=== PATIENT | female | born 1980 | race Caucasian/White ===

== ENCOUNTER → 2018-07-06 13:56 | Outpatient (CLI) | payer OTHER, SELFPAY ==
[2018-07-10 11:59] LABS: HPV HC, High Risk Negative (Negative)
== END ==
PROVIDERS: Visit Provider Obstetrics & Gynecology
DX: Z12.4 Encounter for screening for malignant neoplasm of cervix (principal)
CPT/HCPCS: 87624; 88175; G0145

== ENCOUNTER 2019-11-25 18:50 | Emergency (ER) | payer OTHER, SELFPAY ==
[2019-11-25 18:51] VITALS: BP 150/87; PULSE 77; PULSE 81; RESP 17; RESP 18; TEMP 36.4; O2SAT 97; O2SAT 99; BMI 44.4
--- NOTE | 2019-11-25 19:45 | RAD_ITS ---
STUDY: X-RAY - LEFT HAND REASON FOR EXAM: Female, 39 years old. got 3rd digit caught in dog collar TECHNIQUE: 3 view(s) of the hand. COMPARISON: None. FINDINGS: Normal radiocarpal articulation. Normal distal radioulnar joint. Normal visualized carpal bones. Normal carpal articulations Normal carpometacarpal articulation of the thumb. Normal second through fifth carpometacarpal joints. Normal metacarpi. Normal metacarpophalangeal joint of the thumb. Normal interphalangeal joint of the thumb. Normal proximal and distal phalanges of the thumb. Normal metacarpophalangeal joints of the second through fifth fingers. Normal proximal and distal interphalangeal joints of the second through fifth fingers. There is a nondisplaced chip fracture of the dorsal aspect of the base of the third distal phalanx. RAD/Hand Min 3 Views IMPRESSION: Nondisplaced chip fracture of the dorsal aspect of the base of the third distal phalanx. Electronically Signed: Alex Centeno MD at 20:48 EDT , Service support ,
[2019-11-25] MEDS: Naproxen 500 MG Tablet PO (19:46)
--- NOTE | 2019-11-25 19:46 | ED.DCSUM_ITS ---
History of Present Illness Chief Complaint: Upper Extremity Injury Detail of Chief Complaint: Hand injury Informant: Patient Onset: Today Current Severity: Mild Maximum Severity: Moderate Narrative: Patient presents with injury to her left hand. She states that her dogs were roughhousing in the backyard. She had her left hand through the collar of 1 of the dogs. The dog turned suddenly and twisted her hand in the collar. She has pain throughout the third digit but also across the MCP joints of the third, fourth, and fifth fingers. She is right-hand dominant. She denies paresthesias. She did take Tylenol prior to arrival. Past Medical History - Allergies and Home Meds Allergies/Adverse Reactions: Allergies Penicillins [PCN] Allergy (Verified 11/25/19 18:51) Unknown Primary Care Physician: Hilton Doty DO [Primary Care Provider] - Prior records reviewed: Yes Smoking Status: Never smoker Review of Systems General: Denies: Chills, Fever Eyes: Denies: Visual changes - bilaterally ENT: Denies: Bilateral ear pain Cardiovascular: Denies: Chest pain Respiratory: Denies: Dyspnea, Cough Gastrointestinal: Denies: Abdominal pain, Nausea, Vomiting, Diarrhea Musculoskeletal: Reports: Arthralgias, Extremity Pain Skin: Denies: Rash Hematologic: Denies: Easy bruising, Easy bleeding Allergy: Denies: Uticaria Physical Exam Vital Signs/Narrative: Vital Signs Temp Pulse Resp BP Pulse Ox 11/25/19 18:51 97.5 F L 81 17 150/87 H 97 Inital Vital Signs reviewed: Yes General: Well nourished, Well developed Head: Normocephalic ENT: Moist mucous membranes Neck: Supple Cardiovascular: Regular rate, Regular rhythm Respiratory: No distress, CTA bilaterally Abdomen: Soft, Nontender Extremities: - - Patient has mild tenderness throughout the third digit of the left hand along with the third, fourth, and fifth MCP joints. Minimal edema noted. She has decreased flexion of the third finger secondary to edema. No obvious deformity noted. Good cap refill and sensation distally. No tenderness at the wrist, elbow, or shoulder. Skin: Normal color Neurological: Alert, Oriented x3 Psychological: Normal affect Diagnostic/Tx/Re-eval Impressions Hand X-Ray 11/25/19 19:45 IMPRESSION: Nondisplaced chip fracture of the dorsal aspect of the base of the third distal phalanx. Electronically Signed: Alex Centeno MD at 20:48 EDT , Service support , 11/25/19 19:45 Hand Min 3 Views [RAD] Stat - Medical Decision Making Patient was given naproxen here. Test results are discussed with her. Left third finger is placed in an AlumaFoam splint. She will follow-up with [facility] which she is known to. ED Disposition - Plan for ED Patient: Disposition: Home or Assisted Living Diagnosis: Fracture of distal phalanx of finger of left hand Instructions: ED FINGER FRACTURE Closed Prescriptions: Naproxen [Naprosyn] 500 mg PO BID PRN PRN #20 tab PRN Reason: Pain Score 4-10/10 Transmission Status: Pending to [facility]/pharmacy #[id number] Referrals: Hilton Doty DO [Primary Care Provider] - Lazaro David DO [STAFF PHYSICIAN] - 1 Week
[2019-11-25 21:10] VITALS: RESP 18
== END 2019-11-25 21:10 | disposition home or self-care (01) ==
PROVIDERS: Emergency Provider Emergency Medicine; PCP Student in an Organized Health Care Education/Training Program
DX: S62.633A Displaced fracture of distal phalanx of left middle finger, initial encounter for closed fracture (principal); X58.XXXA Exposure to other specified factors, initial encounter
CPT/HCPCS: 73130; 99283

== ENCOUNTER 2020-03-12 11:37 | Emergency (ER) | payer OTHER, SELFPAY ==
[2020-03-12 11:38] VITALS: BP 152/104; PULSE 65; RESP 20; TEMP 36.3; O2SAT 100; BMI 43.2
--- NOTE | 2020-03-12 12:21 | EKG12_ITS ---
Test Reason : BACK PAIN Blood Pressure : / mmHG Vent. Rate : 056 BPM Atrial Rate : 056 BPM P-R Int : 150 ms QRS Dur : 104 ms QT Int : 444 ms P-R-T Axes : 046 057 043 degrees QTc Int : 428 ms Sinus bradycardia Otherwise normal ECG No previous ECGs available Confirmed by ALVAREZ PETERS ([id number]), editorial project manager NELLIE MUNOZ ([id number]) on 03/26/2020 10:06:33 AM Referred By: ELSIE Confirmed By:ALVAREZ PETERS
--- NOTE | 2020-03-12 12:28 | NURSING ---
NO OLD EKGS
[2020-03-12 13:03] VITALS: BP 142/79; PULSE 57; RESP 10; O2SAT 100
[2020-03-12 13:06] LABS: Absolute Lymphocyte Count 1.55 X10^3/uL (0.83-4.51); Absolute Neutrophil Count 4.3 X10^3/uL (2.0-7.7); Basophil# 0.02 X10^3/uL; Basophil% 0.3 % (0-1); Eosinophils% 1.5 % (0-5); Hematocrit 42.7 % (37-47); Hemoglobin 13.9 g/dL (12.0-15.0); Lymphocyte # 1.55 X10^3/ul (4.0); Lymphocyte % 23.7 % (19-41); Mean Corp Hgb Conc 32.6 g/dL (32-36); Mean Corpuscular Hgb 29.3 pg (27.0-32.0); Mean Corpuscular Volume 89.9 fL (81-99); Mean Platelet Vol. 10.1 fl (6.2-12.0); Monocyte# 0.51 X10^3/uL; Monocyte% 7.8 % (0-10); NRBC Flagged by Analyzer 0 % (0-5); Neutrophil # 4.34 X10^3/uL (2.7-7.7); Neutrophil % 66.4 % (47-70); Platelet Count 294 K/mm3 (150-450); RBC Distribution Width CV 13.2 % (11.6-14.6); RBC Distribution Width SD 43.4 fl (35.1-43.9); Red Blood Count 4.75 M/mm3 (4.2-5.4); White Blood Count 6.5 K/mm3 (4.4-11.0)
--- NOTE | 2020-03-12 13:10 | RAD_ITS ---
STUDY: X-RAY CHEST REASON FOR EXAM: Female, 40 years old. Left sided pleuritic chest pain TECHNIQUE: PA and lateral views of the chest. COMPARISON: Comparison is made with prior study dated 09/13/2014. FINDINGS: EKG electrodes are seen. Scattered calcified granulomas. The lungs are clear. There is no demonstrated pleural abnormality. Normal size heart. Normal mediastinum and howard. Normal visualized pulmonary arteries. Normal visualized aortic arch and descending thoracic aorta. There is a levoscoliosis of the thoracic spine. Normal visualized ribs, clavicles, and shoulders. There is no demonstrated abnormality of the visualized soft tissue structures of the upper abdomen. RAD/Chest PA and Lateral IMPRESSION: No acute abnormality is seen. Electronically Signed: Jimmy Cam, at 13:26 EDT , Service support ,
[2020-03-12 13:18] LABS: D-Dimer Quantitative (DVT/PE) 0.34 FEU/ug/m (0.27-0.49)
[2020-03-12 13:20] LABS: Anion Gap 4 (5-15); BUN 8 mg/dL (7-18); Calcium,Total 9.6 mg/dL (8.5-10.1); Chloride 102 mmol/L (98-107); Creatinine, Serum 0.89 mg/dL (0.55-1.02); EST Glomerular Filtration Rate 75 mL/min (>60); Est Glom Filt Rate - Afr Amer 91 mL/min (>60); Estimated Creatinine Clearance 81.71 ml/min; Glucose 97 mg/dL (74-106); Potassium 3.3 mmol/L (3.5-5.1); Sodium Level 139 mmol/L (136-145)
[2020-03-12 13:40] LABS: Lactic Acid 0.8 mmol/L (0.4-1.9)
--- NOTE | 2020-03-12 13:55 | ED.DCSUM_ITS ---
History of Present Illness Chief Complaint: Back Informant: Patient Onset: Today Context: Sudden Onset Timing: Continuous Quality: Pleuritic left-sided pain Location: Left side posteriorly Current Severity: Mild Maximum Severity: Severe Worsened by: Deep breathing Relieved by: Nothing Associated Symptoms: Shortness of breath Narrative: Is a 40-year-old woman who presents with pleuritic chest pain at started this morning. She has no history of VTE. She denies leg pain, swelling discoloration. She denies fever, chills night sweats. She denies rhinorrhea, congestion postnasal drainage and sore throat. She denies cough. She denies myalgias or arthralgias. She does have history of ureteral stone. She states this is in a different location and is different. She denies dysuria, frequency, urgency or hematuria. She denies constipation or history of diverticulitis. There is no history of trauma other than lifting which would not explain the pleuritic pain. Prior similar symptoms: No Recent Illness/Hospitalization: No - Past Medical History (1) History of ureteral stone Status: Acute (2) History of depression Status: Acute (3) History of hypertension Status: Acute (4) History of rheumatoid arthritis Status: Acute Past Medical History - Allergies and Home Meds Allergies/Adverse Reactions: Allergies Penicillins [PCN] Allergy (Verified 03/12/20 11:40) Unknown Primary Care Physician: Hilton Doty DO [Primary Care Provider] - Prior records reviewed: Yes Surgical History: noncontributory Lives: Spouse/ Significant Other, With Family Smoking Status: Never smoker Alcohol: Rare Drugs: None Review of Systems General: Denies: Chills, Fever, Malaise, Subjective Eyes: Denies: Visual changes - bilaterally, Blurred Vision - bilaterally ENT: Denies: Rhinorrhea, Sore throat Cardiovascular: Denies: Chest pain, Palpitations Respiratory: Reports: Dyspnea, Dyspnea on exertion. Denies: Cough, Sputum, Orthopnea Gastrointestinal: Denies: Abdominal pain, Nausea, Vomiting, Diarrhea, Constipation, Melena, Hematochezia, -, - Genitourinary: Denies: Dysuria, Hematuria, Frequency Musculoskeletal: Denies: Myalgias, Arthralgias, Neck pain, Back pain, Swelling, Extremity Pain, -, - Skin: Denies: Rash, Wounds Neurological: Denies: Headache, Weakness, Parasthesia Endocrine: Denies: Polyuria, Polydipsia Hematologic: Denies: Easy bruising, Easy bleeding Physical Exam Vital Signs/Narrative: Vital Signs Temp Pulse Resp BP Pulse Ox 03/12/20 13:03 57 L 10 L 142/79 H 100 03/12/20 11:38 97.3 F L 65 20 H 152/104 H 100 Inital Vital Signs reviewed: Yes General: Well nourished, Well developed, Obese, No Acute Distress Eyes: Perrl, EOMI. Negative for: Pale conjunctiva, Scleral icterus ENT: Moist mucous membranes, No rhinorrhea Neck: Supple, Nontender, No lymphadenopathy, No JVD Cardiovascular: Regular rate, Regular rhythm, No murmurs, Normal S1, Normal S2 Respiratory: No distress, CTA bilaterally, Chest nontender, - - Patient splints with deep breathing. There is no rash noted. Area of discomfort is over the left scapula. There is no evidence of trauma. Abdomen: Soft, Nontender, Nondistended, Normal bowel sounds. Negative for: Hepatomegaly, Splenomegaly, Mass, Pulsatile mass, Ventral hernia Back: Nontender, Normal Inspection Extremities: Nontender, No edema, - - Varicosities bilaterally. Skin: Normal color, No rash Neurological: Alert, Oriented x3, Cranial nerves II-XII grossly intact, Normal Strength, Normal Sensation Psychological: Normal affect Diagnostic/Tx/Re-eval Chest X-Ray - ED: 2 View, Read by ED Physician, Normal, Heart, Lungs, Mediastinum, Bony Structures, No Acute Disease Impressions Chest X-Ray 03/12/20 13:10 IMPRESSION: No acute abnormality is seen. Electronically Signed: Jimmy Cam, at 13:26 EDT , Service support , 03/12/20 13:10 Chest PA and Lateral [RAD] Stat Laboratory Results 03/12/20 03/12/20 03/12/20 13:00 13:00 13:00 WBC 6.5 RBC 4.75 Hgb 13.9 Hct 42.7 MCV 89.9 MCH 29.3 MCHC 32.6 RDW Std Deviation 43.4 RDW Coeff of Francisca 13.2 Plt Count 294 MPV 10.1 Immature Gran % (Auto) 0.300 Neut % (Auto) 66.4 Lymph % (Auto) 23.7 [place] % (Auto) 7.8 Eos % (Auto) 1.5 Baso % (Auto) 0.3 Absolute Neuts (auto) 4.3 Absolute Lymphs (auto) 1.55 Nucleated RBC % 0 D-Dimer Quant (PE/DVT) 0.34 Sodium 139 Potassium 3.3 L Chloride 102 Carbon Dioxide 33.0 H Anion Gap 4 L BUN 8 Creatinine 0.89 Estim Creat Clear Calc 81.71 Est GFR (MDRD) Af Amer 91 Est GFR (MDRD) Non-Af 75 BUN/Creatinine Ratio 9.0 L Glucose 97 Lactic Acid Calcium 9.6 03/12/20 13:00 WBC RBC Hgb Hct MCV MCH MCHC RDW Std Deviation RDW Coeff of Francisca Plt Count MPV Immature Gran % (Auto) Neut % (Auto) Lymph % (Auto) [place] % (Auto) Eos % (Auto) Baso % (Auto) Absolute Neuts (auto) Absolute Lymphs (auto) Nucleated RBC % D-Dimer Quant (PE/DVT) Sodium Potassium Chloride Carbon Dioxide Anion Gap BUN Creatinine Estim Creat Clear Calc Est GFR (MDRD) Af Amer Est GFR (MDRD) Non-Af BUN/Creatinine Ratio Glucose Lactic Acid 0.8 Calcium D-dimer was obtained and is negative. This rules out pulmonary embolus. Chest x-ray reveals no evidence of effusion, infiltrate or pneumothorax. Blood work is unremarkable. Patient was treated with NSAIDs for pleurisy. - EKG Initial EKG Interpretation: Sinus Tachycardia - Ocular rate 56. AR interval 150 ms. QRS duration 104 ms. QT duration 444 ms with a QTC of 428 ms. [place] is normal. Other than the bradycardia the EKG is normal. - Medical Decision Making She presents with pleuritic pain need to evaluate for viral illness with pleurisy, pneumonia, pneumothorax, pulmonary embolus. Appropriate labs and chest x-ray were obtained. D-dimer was obtained since she has a hormone impregnated IUD. She is not PERC negative. ED Disposition - Plan for ED Patient: Disposition: Home or Assisted Living Diagnosis: Pleurisy, Sinus bradycardia by electrocardiogram Instructions: ED Chest Pain Pleurisy Referrals: Hilton Doty, [Primary Care Provider] - 1 Week if not improving
[2020-03-12] MEDS: Ketorolac 15 MG/ML Vial IV (14:08)
== END 2020-03-12 14:34 | disposition home or self-care (01) ==
PROVIDERS: Emergency Provider Emergency Medicine; PCP Student in an Organized Health Care Education/Training Program
DX: R09.1 Pleurisy (principal); R00.1 Bradycardia, unspecified; M06.9 Rheumatoid arthritis, unspecified
CPT/HCPCS: 71046; 80048; 83605; 85025; 85379; 93005; 96374; 99284; A4216

== ENCOUNTER 2021-06-24 10:14 | Outpatient (RCR) | payer OTHER, SELFPAY | END 2021-07-02 23:59 | LOC: NS 10:14 | PROVIDERS: PCP Student in an Organized Health Care Education/Training Program; Visit Provider Nurse Practitioner Family | DX: Z71.3 Dietary counseling and surveillance (principal); E66.9 Obesity, unspecified; Z68.39 Body mass index [BMI] 39.0-39.9, adult | CPT/HCPCS: 97802 ==

== ENCOUNTER → 2023-06-09 | Outpatient (CLI) | payer OTHER, SELFPAY ==
--- NOTE | 2023-06-09 16:09 | BI_ITS ---
MAMMOGRAPHY - BILATERAL SCREENING REASON FOR EXAM: Female, 43 years old. Routine annual screening examination. PERTINENT HISTORY: Aunt with breast cancer. TECHNIQUE: Digital bilateral breast kymberly (3D mammographic acquisition) in the CC and MLO projections. 2-D mediolateral oblique (MLO) and craniocaudad (CC) views of both breasts were obtained. CAD: Full Field Digital Mammography with Computer Added Detection was performed. COMPARISON: Comparison is made with prior abdomen examination dated July 01, 2021. FINDINGS: Breast Composition: The breasts are heterogeneously dense, which may obscure small masses. There is a 7.5 mm x 4.9 mm well-defined nodule in the inferior deep medial aspect of the right breast. Correlation with ultrasound is recommended. Stable benign-appearing bilateral axillary lymph nodes. No other significant abnormalities are identified. BI/SCRN MAMM (CAD)W/KYMBERLY BILAT IMPRESSION: 7.5 mm x 4.9 mm well-defined nodule in the inferior medial aspect of the right breast. Correlation with ultrasound is recommended. ASSESSMENT CATEGORY: BIRADS Category 0: Incomplete. Need additional imaging evaluation. A letter regarding these results will be sent to the patient by the facility within 30 days. Approximately 10% of breast cancers are not detected by mammography. A normal mammogram should not delay biopsy of a clinically suspicious abnormality. [id number] Electronically Signed: Jimmy Cam MD at 9:12 EST ,
== END | disposition home or self-care (01) ==
LOC: OPBI 16:07
PROVIDERS: PCP Student in an Organized Health Care Education/Training Program; Referring Provider Student in an Organized Health Care Education/Training Program; Visit Provider Student in an Organized Health Care Education/Training Program
DX: Z12.31 Encounter for screening mammogram for malignant neoplasm of breast (principal)
CPT/HCPCS: 77063; 77067

== ENCOUNTER → 2023-06-11 | Outpatient (CLI) | payer OTHER, SELFPAY ==
--- NOTE | 2023-06-11 08:04 | US_ITS ---
STUDY: ULTRASOUND BREAST - RIGHT REASON FOR EXAM: Female, 43 years old. Abnormal screening mammogram. TECHNIQUE: Axial and longitudinal images of the RIGHT breast were performed with a high resolution ultrasound transducer. # OF IMAGES: [id number] COMPARISON: Comparison is made with prior mammogram dated June 09, 2023. FINDINGS: RIGHT Breast: There is a 6 mm x 8 mm x 3 mm cyst at the 5:00 position breast at 4 cm from the nipple. US/Breast Limited Unilateral IMPRESSION: The mammographic abnormality corresponds to a 6 mm x 8 mm x 3 mm cyst at the 5:00 position of the breast at 4 cm from the nipple. ASSESSMENT CATEGORY: BIRADS Category 2: Benign. A letter regarding these results will be sent to the patient by the facility within 30 days. Electronically Signed: Jimmy Cam MD at 15:12 EST ,
== END | disposition home or self-care (01) ==
LOC: OPUS 07:59
PROVIDERS: PCP Student in an Organized Health Care Education/Training Program; Referring Provider Student in an Organized Health Care Education/Training Program; Visit Provider Student in an Organized Health Care Education/Training Program
DX: N63.10 Unspecified lump in the right breast, unspecified quadrant (principal)
CPT/HCPCS: 76642

== ENCOUNTER → 2023-07-09 | Outpatient (CLI) | payer OTHER, SELFPAY ==
--- NOTE | 2023-07-09 16:22 | US_ITS ---
INDICATION: aub EXAMINATION: Ultrasound US Pelvis Non OB Complete With Transvaginal Imaging TECHNIQUE: Transabdominal and transvaginal pelvic ultrasound was performed. Grayscale, spectral waveform, and color flow Doppler evaluation of the adnexa. COMPARISON: No relevant prior comparison study available FINDINGS: UTERUS: Anteverted. The uterus measures 8.8 x 5.5 x 5.0 cm. There is no uterine mass. The endometrial stripe measures 5 mm in AP diameter which is within normal limits. There is a anterior fundal uterine fibroid measuring 2.7 cm, with approximately 1.5 cm submucosal component. RIGHT OVARY: Measures 3.2 x 2.3 x 1.7 cm. Non-enlarged, normal echogenicity. There is a 1.7 cm physiologic follicle. No follow-up imaging recommended. There is normal arterial inflow and venous outflow present in the right ovary. LEFT OVARY: Measures 2.2 x 1.8 x 1.3 cm. Non-enlarged, normal echogenicity. There is normal arterial inflow and venous outflow present in the left ovary. FREE FLUID: None. US/Pelvic (Non ) IMPRESSION: Anterior uterine fundal fibroid measuring 2.7 cm with 1.5 cm submucosal component. Endometrium otherwise unremarkable. Electronically Signed: Kal Cristina MD at 18:20 EST ,
== END | disposition home or self-care (01) ==
LOC: US 16:20
PROVIDERS: PCP Student in an Organized Health Care Education/Training Program; Referring Provider Nurse Practitioner Women's Health; Visit Provider Nurse Practitioner Women's Health
DX: N93.9 Abnormal uterine and vaginal bleeding, unspecified (principal)
CPT/HCPCS: 76830; 76856

== ENCOUNTER → 2023-08-12 | Outpatient (CLI) | payer OTHER, SELFPAY ==
--- NOTE | 2023-08-12 | EMB_PTH ---
PATHOLOGY RESULTS PATIENT: WANDA CAAL LOC: [facility]O #:[id number] AGE/SX: 43/F ROOM: RE08/12/[address]: BUSTER Dennis : 1980 BED: DIS: 08/12/2023 SPEC #: [id number] RECD: 08/13/23 07:04 STATUS: NAJMA REGriffin #: [id number] MARKIE: 08/12/23 00:[address]: Nilda Loya NP DEPT: SURGICAL PATHOLOGY RECD BY: Karina Beaulieu ENTERED: 08/13/23 07:05 SP TYPE: ENDOM BX/C SOLANGE DR: Dr. Hilton Doty DO Tissues: Endometrium, NOS Procedures: Surgery Specimen Level IV HEADER OPERATION: Endometrial biopsy PRE-OP DIAGNOSIS: Abnormal uterine bleeding TISSUE SUBMITTED: Endometrial lining MICROSCOPIC DIAGNOSIS Endometrium, biopsy: Secretory endometrium. AM:deshaun 08/14/2023 MICROSCOPIC DESCRIPTION Slides are reviewed. GROSS DESCRIPTION Received is one container labeled with the patient's name and not further designated. The specimen consists of multiple fragments of hemorrhagic soft tissue that in aggregate measure 3.0 x 2.5 x 0.3 cm. The specimen is totally submitted in one cassette. / SJ:deshaun 08/13/2023 TC:5 CPT: 98912
[2023-08-18 21:07] LABS: HPV APTIMA, High Risk Positive (Negative); HPV Genotype 16, Aptima Positive (Negative); HPV Genotype 18,45 Aptima Negative (Negative)
== END | disposition home or self-care (01) ==
LOC: LABSPEC 13:41
PROVIDERS: PCP Student in an Organized Health Care Education/Training Program; Referring Provider Nurse Practitioner Women's Health; Visit Provider Nurse Practitioner Women's Health
DX: N93.9 Abnormal uterine and vaginal bleeding, unspecified (principal)
CPT/HCPCS: 87624; 88175; 88305; G0145

== ENCOUNTER → 2023-09-02 | Outpatient (CLI) | payer OTHER, SELFPAY ==
--- OUTSIDE RECORDS SUMMARY | 2023-09-02 16:51 | XMS RPT_ITS | CCD ---
Author Name Unknown Address [address] [facility] [address] [facility] [address] [place] [address] Organization [facility] Care Team Providers Care Car Wash Attendant Name Role Phone Hilton Alcaraz DO Primary Care Provider [phone] HILTON ALCARAZ Attending Unavailable HILTON ALCARAZ Primary Care Unavailable HILTON ALCARAZ Attending Unavailable HILTON ALCARAZ Primary Care Unavailable HILTON ALCARAZ Referring Unavailable HILTON ALCARAZ Primary Care Unavailable HILTON ALCARAZ Attending Unavailable HILTON ALCARAZ Primary Care Unavailable PRISCILLA JUNIOR Attending Unavailable HILTON ALCARAZ Primary Care Unavailable HILTON ALCARAZ Attending Unavailable HILTON ALCARAZ Primary Care Unavailable HILTON ALCARAZ Attending Unavailable HILTON ALCARAZ Primary Care Unavailable PRISCILLA JUNIOR Referring Unavailable HILTON ALCARAZ Primary Care Unavailable Hilton Alcaraz DO Primary Care Provider Allergies Allergy Classification Reported Allergen(s) Allergy Type Date of Onset Reaction(s) Facility (5 sources) Penicillins; Translations: [PENICILLINS] Drug Intolerance 4 Unknown [facility] Work Phone: (20 sources) Penicillins Drug Intolerance 4 Unknown [facility] Work Phone: Medications Current Medications Medication Drug Class(es) Dates Sig (Normalized) Sig (Original) chlorthalidone 25 mg oral tablet (20 sources) Thiazide-like Diuretic Start: 12-17-2022 End: 09-01-2023 take 1 tablet by mouth once daily as needed for edema chlorthalidone (HYGROTON) 25 mg tablet Indications: Bilateral leg edema Take 1 tablet by mouth once daily. As needed for edema 30 tablet 5 06/03/2023 09/01/2023 Active Completed/Discontinued Medications Medication Drug Class(es) Dates Sig (Normalized) Sig (Original) amLODIPine 5 mg oral tablet (16 sources) Dihydropyridine Calcium Channel Steven Start: 08-28-2022 take 1 tablet by mouth once daily amLODIPine (NORVASC) 5 mg tablet Take 1 tablet by mouth once daily. 90 tablet 0 08/28/2022 Active Problems Active Problems Problem Classification Problem Date Documented Date Episodic/Chronic Adjustment disorders (16 sources) Reactive depression (situational); Translations: [Adjustment disorder with depressed mood] Onset: 11-27-2022 Chronic Anxiety disorders (20 sources) Generalized anxiety disorder; Translations: [Generalized anxiety disorder] Onset: 03-04-2019 03-04-2019 Chronic Complication of device; implant or graft (1 source) Pain; Translations: [Pain due to genitourinary prosthetic devices, implants and grafts, initial encounter] Episodic Disorders of lipid metabolism (20 sources) Dyslipidemia; Translations: [Hyperlipidemia, unspecified] Onset: 07-18-2019 07-18-2019 Chronic Immunizations and screening for infectious disease (2 sources) Needs influenza immunization; Translations: [Encounter for immunization] Onset: 06-03-2023 06-03-2023 Episodic Menstrual disorders (20 sources) Menorrhagia; Translations: [Excessive and frequent menstruation with regular cycle] Onset: 03-04-2019 03-04-2019 Chronic Nutritional deficiencies (20 sources) Vitamin D deficiency; Translations: [Vitamin D deficiency, unspecified] Onset: 10-13-2017 10-13-2017 Chronic Osteoarthritis (6 sources) Arthritis; Translations: [Unspecified osteoarthritis, unspecified site] Onset: 08-28-2022 Chronic Other circulatory disease (20 sources) Raynaud's phenomenon; Translations: [Raynaud's syndrome without gangrene] Onset: 09-15-2014 09-15-2014 Chronic Other female genital disorders (1 source) Postcoital bleeding; Translations: [Postcoital and contact bleeding] Chronic Other female genital disorders (1 source) Vaginal discharge; Translations: [Other specified noninflammatory disorders of vagina] Episodic Other inflammatory condition of skin (20 sources) Rosacea; Translations: [Rosacea, unspecified] Onset: 07-23-2022 Chronic Other nutritional; endocrine; and metabolic disorders (20 sources) Obese class I; Translations: [Obesity, unspecified] Onset: 01-16-2016 01-16-2016 Chronic Other nutritional; endocrine; and metabolic disorders (20 sources) Body mass index 40+ - severely obese; Translations: [Morbid (severe) obesity due to excess calories] Onset: 10-13-2017 10-13-2017 Chronic Other nutritional; endocrine; and metabolic disorders (1 source) Morbid (severe) obesity due to excess calories; Translations: [Obesity, Class III, BMI 40-49.9 (morbid obesity) (HCC)] Onset: 10-13-2017 Chronic Other nutritional; endocrine; and metabolic disorders (1 source) Obesity, unspecified; Translations: [Obesity, Class I, BMI 30-34.9] Onset: 01-21-2022 Chronic Other screening for suspected conditions (not mental disorders or infectious disease) (5 sources) Patient encounter status; Translations: [Encounter for screening mammogram for malignant neoplasm of breast] Onset: 06-03-2023 Episodic Other skin disorders (1 source) Eruption; Translations: [Rash and other nonspecific skin eruption] Episodic Rheumatoid arthritis and related disease (20 sources) Inflammatory polyarthropathy; Translations: [Inflammatory polyarthropathy] Onset: 04-14-2015 04-14-2015 Chronic Systemic lupus erythematosus and connective tissue disorders (4 sources) Undifferentiated connective tissue disease; Translations: [Systemic involvement of connective tissue, unspecified] Onset: 08-28-2022 Chronic Varicose veins of lower extremity (20 sources) Varicose veins of lower limb co-occurrent with edema; Translations: [Varicose veins of bilateral lower extremities with other complications] Onset: 09-15-2014 09-15-2014 Episodic Past or Other Problems Problem Classification Problem Date Documented Da te Episodic/Chronic Inflammation; infection of eye (except that caused by tuberculosis or sexually transmitteddisease) (20 sources) Eczematous dermatitis of bilateral eyelids; Translations: [Eczematous dermatitis of right upper eyelid] Onset: 01-21-2022 Episodic Malaise and fatigue (20 sources) Fatigue; Translations: [Other fatigue] Onset: 10-13-2017 10-13-2017 Episodic Other non-traumatic joint disorders (20 sources) Hand joint stiff; Translations: [Stiffness of unspecified hand, not elsewhere classified] Onset: 09-15-2014 09-15-2014 Episodic Other non-traumatic joint disorders (20 sources) Pain in right knee; Translations: [Pain in joint, lower leg] Onset: 10-13-2017 10-13-2017 Episodic Other skin disorders (1 source) Rash and other nonspecific skin eruption; Translations: [Facial rash] Onset: 08-28-2022 Episodic Residual codes; unclassified (20 sources) Edema; Translations: [Edema, unspecified] Onset: 10-30-2018 10-30-2018 Episodic Residual codes; unclassified (20 sources) Bilateral lower limb edema; Translations: [Localized edema] Onset: 01-21-2022 Episodic Residual codes; unclassified (14 sources) Flushing; Translations: [Flushing] Onset: 10-28-2022 Episodic Residual codes; unclassified (1 source) Localized edema; Translations: [Bilateral leg edema] Onset: 01-21-2022 Episodic Residual codes; unclassified (1 source) Flushing; Translations: [Hot flashes] Onset: 10-28-2022 Episodic Results Test Name Value Interpretation Reference Range Facil ity Vital Signs Date Time Vital Sign Value Performing Clinician Faci lity 06-03-2023 17:55-0400 Body temperature 98.4 [degF] Hilton Alcaraz DO Work Phone: [facility] 06-03-2023 17:55-0400 Body weight 90.72 kg Hilton Alcaraz DO Work Phone: [facility] 06-03-2023 17:55-0400 Diastolic blood pressure 80 mm[Hg] Hilton Alcaraz DO Work Phone: [facility] 06-03-2023 17:55-0400 Heart rate 64 /min Hilton Alcaraz DO Work Phone: [facility] 06-03-2023 17:55-0400 Respiratory rate 16 /min Hilton Alcaraz DO Work Phone: [facility] 06-03-2023 17:55-0400 Systolic blood pressure 120 mm[Hg] Hilton Alcaraz DO Work Phone: [facility] 03-02-2023 14:20-0400 Body temperature 97.9 [degF] Hilton Alcaraz DO Work Phone: [facility] 03-02-2023 14:20-0400 Body weight 88.91 kg Hilton Alcaraz DO Work Phone: [facility] 03-02-2023 14:20-0400 Diastolic blood pressure 70 mm[Hg] Hilton Alcaraz DO Work Phone: [facility] 03-02-2023 14:20-0400 Heart rate 76 /min Hilton Alcaraz DO Work Phone: [facility] 03-02-2023 14:20-0400 Respiratory rate 12 /min Hilton Alcaraz DO Work Phone: [facility] 03-02-2023 14:20-0400 Systolic blood pressure 120 mm[Hg] Hilton Alcaraz DO Work Phone: [facility] 11-24-2022 14:00-0400 Body temperature 98.01 [degF] Hilton Alcaraz DO Work Phone: [facility] 11-24-2022 14:00-0400 Body weight 90.27 kg Hilton Alcaraz DO Work Phone: [facility] 11-24-2022 14:00-0400 Diastolic blood pressure 74 mm[Hg] Hilton Alcaraz DO Work Phone: [facility] 11-24-2022 14:00-0400 Heart rate 64 /min Hilton Alcaraz DO Work Phone: [facility] 11-24-2022 14:00-0400 Respiratory rate 16 /min Hilton Alcaraz DO Work Phone: [facility] 11-24-2022 14:00-0400 Systolic blood pressure 130 mm[Hg] Hilton Alcaraz DO Work Phone: [facility] 10-24-2022 11:05-0400 Body temperature 97 [degF] Hilton Alcaraz DO Work Phone: [facility] 10-24-2022 11:05-0400 Body weight 88.91 kg Hilton Alcaraz DO Work Phone: [facility] 10-24-2022 11:05-0400 Diastolic blood pressure 80 mm[Hg] Hilton Alcaraz DO Work Phone: [facility] 10-24-2022 11:05-0400 Heart rate 72 /min Hilton Alcaraz DO Work Phone: [facility] 10-24-2022 11:05-0400 Respiratory rate 16 /min Hilton Alcaraz DO Work Phone: [facility] 10-24-2022 11:05-0400 Systolic blood pressure 136 mm[Hg] Hilton Alcaraz DO Work Phone: [facility] 08-28-2022 11:15-0500 Body height 170.2 cm Priscilla Junior MD Work Phone: [facility] 08-28-2022 11:15-0500 Body temperature 97.59 [degF] Priscilla Junior MD Work Phone: [facility] 08-28-2022 11:15-0500 Body weight 88 kg Priscilla Junior MD Work Phone: [facility] 08-28-2022 11:15-0500 Diastolic blood pressure 75 mm[Hg] Priscilla Junior MD Work Phone: [facility] 08-28-2022 11:15-0500 Heart rate 61 /min Priscilla Junior MD Work Phone: [facility] 08-28-2022 11:15-0500 Systolic blood pressure 118 mm[Hg] Priscilla Junior MD Work Phone: [facility] 07-23-2022 18:41-0500 Body temperature 97.59 [degF] Hilton Alcaraz DO Work Phone: [facility] 07-23-2022 18:41-0500 Body weight 87.54 kg Hilton Alcaraz DO Work Phone: [facility] 07-23-2022 18:41-0500 Diastolic blood pressure 80 mm[Hg] Hilton Alcaraz DO Work Phone: [facility] 07-23-2022 18:41-0500 Heart rate 76 /min Hilton Alcaraz DO Work Phone: [facility] 07-23-2022 18:41-0500 Respiratory rate 12 /min Hilton Alcaraz DO Work Phone: [facility] 07-23-2022 18:41-0500 Systolic blood pressure 120 mm[Hg] Hilton Alcaraz DO Work Phone: [facility] 04-23-2022 17:44-0400 Body temperature 97.3 [degF] Hilton Alcaraz DO Work Phone: [facility] 04-23-2022 17:44-0400 Body weight 86.64 kg Hilton Alcaraz DO Work Phone: [facility] 04-23-2022 17:44-0400 Diastolic blood pressure 70 mm[Hg] Hilton Alcaraz DO Work Phone: [facility] 04-23-2022 17:44-0400 Heart rate 76 /min Hilton Alcaraz DO Work Phone: [facility] 04-23-2022 17:44-0400 Respiratory rate 16 /min Hilton Alcaraz DO Work Phone: [facility] 04-23-2022 17:44-0400 Systolic blood pressure 120 mm[Hg] Hilton Alcaraz DO Work Phone: [facility] 02-12-2022 16:06-0400 Body height 168.9 cm Delphine Floyd APRN.SLP Work Phone: [facility] 02-12-2022 16:06-0400 Body weight 89.72 kg Delphine Floyd APRN.SLP Work Phone: [facility] 02-12-2022 16:06-0400 Diastolic blood pressure 70 mm[Hg] Delphine Floyd APRN.SLP Work Phone: [facility] 02-12-2022 16:06-0400 Systolic blood pressure 112 mm[Hg] Delphine Floyd APRN.SLP Work Phone: [facility] 01-20-2022 08:50-0400 Body temperature 97.7 [degF] Hilton Alcaraz DO Work Phone: [facility] 01-20-2022 08:50-0400 Body weight 89.81 kg Hilton Alcaraz DO Work Phone: [facility] 01-20-2022 08:50-0400 Diastolic blood pressure 70 mm[Hg] Hilton Alcaraz DO Work Phone: [facility] 01-20-2022 08:50-0400 Heart rate 80 /min Hilton Alcaraz DO Work Phone: [facility] 01-20-2022 08:50-0400 Respiratory rate 16 /min Hilton Alcaraz DO Work Phone: [facility] 01-20-2022 08:50-0400 Systolic blood pressure 110 mm[Hg] Hilton Alcaraz DO Work Phone: [facility] Encounters Encounter Date Encounter Type Care Provider Facility Start: 07-10-2023 Refvivi Junior MD Work Phone: Rheumatology Procedures Date Procedure Procedure Detail Performing Clinician Start: 06-03-2023 INFLUENZA VACCINE, A GE 6 MO - 64 YR, QUADRIVALENT (AFLURIA, FLULAVAL, FLUZONE) Hilton Liu Alcaraz DO Work Phone: Start: 07-01-2021 Mammography Ale Mancia MD Work Phone: Start: 04-12-2021 Adult depression scr eening assessment Ale Conner MD Work Phone: Plan of Treatment Date Care Activity Detail Author Start: 01-04-2026 HPV TESTING HPV TESTING [facility] Start: 01-04-2026 PAP TESTING PAP TESTING [facility] Start: 01-24-2025 Urine microalbumin profile [facility] Start: 06-03-2024 Covid-19 Vaccine () Covid-19 Vaccine () [facility] Immunizations Immunization Date Immunization Notes Care Provider Fa luis 06-03-2023 influenza, injectabl e, quadrivalent, contains preservative Hilton Alcaraz DO Work Phone: [facility] Work Phone: 04-12-2021 influenza, injectabl e, quadrivalent, contains preservative Ale Conner MD Work Phone: [facility] Work Phone: 04-12-2021 influenza virus vaccine, unspecified formulation Priscilla Junior MD Work Phone: [facility] 01-30-2021 COVID-19 vaccine, fu ll dose (MODERNA) Ale Conner MD Work Phone: [facility] 07-15-2019 influenza, injectabl e, quadrivalent, contains preservative Ale Conner MD Work Phone: [facility] Work Phone: 04-22-2017 influenza, seasonal, injectable Ale Conner MD Work Phone: [facility] Work Phone: 05-14-2015 influenza, seasonal, injectable Ale Conner MD Work Phone: [facility] Work Phone: 01-24-2015 tetanus toxoid, redu kimberli diphtheria toxoid, and acellular pertussis vaccine, adsorbed Ale Conner MD Work Phone: [facility] Work Phone: Payers Date Payer Category Payer Private Health Insurance [id number] 2022 Private Health Insurance [id number] 2022 Unknown [employer] PPO [id number] 2022-Present [phone] [address] [place] [address] PPO [id number] 2022 Unknown [id number] 2021 Unknown [facility] [employer] [id number] 2021-Present [phone] [address] [place] [address] PPO [id number] 2020 Private Health Insurance [facility] CHO[facility] PL[facility] [id number] 2020-Present [phone] [address] [address] [place] [address] O [id number] 2020 Unknown [id number] Social History Date Type Detail Facility Start: 08-30-2013 End: 08-21-2014 Tobacco smoking status NHIS Never smoked tobacco [facility] Work Phone: Start: 08-30-2013 End: 08-21-2014 Tobacco use and exposure Smokeless tobacco non-user [facility] Work Phone: Start: 10-05-2021 End: 06-03-2023 Alcohol intake Current drinker of alcohol (finding) [facility] Start: 08-21-2014 History SDOH Alcohol Comment occ [facility] Start: 01-04-2021 Education 13 [facility] Start: 1980 Sex Assigned At Not on file [facility] Start: 01-10-2022 End: 04-23-2022 Exposure to SARS-CoV-2 (event) Not sure [facility] Work Phone: Start: 10-24-2022 End: 03-02-2023 History of Social function [facility] Work Phone: Start: 10-24-2022 End: 03-02-2023 Tobacco use panel [facility] Work Phone: Adult Depression Screening Assessment 0 [facility] Work Phone: Clinical Notes 12-13-2021 to 07-10-2023 Telephone Encounter - Jaja Motley MA - 07/10/2023 12:54 PM ESTTelephone Encounter - Norma Aburto 07/10/2023 12:21 PM ESTTelephone Encounter - Rox Villarreal RN - 06/16/2023 8:50 AM EST Note Date & Type Note Facility 07-10-2023 Miscellaneous Notes Patient has been identified by name and date of : Yes RX INSTRUCTIONS: Patient aware RX will be sent to pharmacy. No need to notify patient. PLQ eye exam done on 05/20/2022 at [facility]. No evidence of PLQ toxicity. Patient is notified to have PLQ eye exam done EROS and verbalized understanding. Fax results to [phone]. LAST APPOINTMENT: 08/28/2022 UPCOMING APPOINTMENT: 09/02/2023 LABS: Hemoglobin (g/dL) Date Value 08/28/2022 14.2 04/16/2021 13.9 Hematocrit (%) Date Value 08/28/2022 42.3 04/16/2021 42.6 WBC (k/uL) Date Value 08/28/2022 5.65 04/16/2021 5.06 Platelet Count (k/uL) Date Value 08/28/2022 250 04/16/2021 249 AST Date Value Ref Range Status 08/28/2022 18 13 - 35 U/L Final ALT Date Value Ref Range Status 08/28/2022 15 7 - 38 U/L Final Creatinine Date Value Ref Range Status 08/28/2022 0.86 0.58 - 0.96 mg/dL Final No results found for: URICACID Jaja Motley MA Patient has been identified by name and date of : Yes Requested Prescriptions Pending Prescriptions Disp Refills hydrOXYchloroQUINE (PLAQUENIL) 200 mg tablet 90 tablet 0 Sig: Take 1 tablet by mouth once daily. RX INSTRUCTIONS: Patient aware RX will be sent to pharmacy. No need to notify patient. Norma Garcia documented in this encounter [facility] 06-16-2023 Miscellaneous Notes Pt called and given results and Dr. Alcaraz's information. Called and left a voicemail for the Patient to call back and ask for a nurse to receive the providers message. Lissa Cedillo RN Please inform patient that the breast US from the hospital is showing the radiologist states this is a benign cyst. No further concerns and no need for biopsy of the right breast Hilton Alcaraz DO Pt is calling to see if pcp was able to view mammogram and US results. Pt reports she is trying to be calm but is having a hard time not to be nervous. Winnie Monge LPN documented in this encounter [facility] 06-03-2023 Note HNO ID: [id number] Author: Hilton Alcaraz DO Service: ? Author Type: Physician Type: Progress Notes Filed: 06/03/2023 9:45 PM Note Text: CC: Jesusita Caal is a 43 year old female who presents to the office for follow up HPI: Recently had eye examination and recently received bifocal change for visual adjustment. Had been having a lot of eye strain and fatigue symptoms. Was seen by Dr. Genao. Just had this diagnosis given last week. Inflammatory polyarthropathy, no signs of retinal concerns for her plaquenil monitoring. Still getting some cold symptoms with hands and then flushing in her cheeks- worse when anxious or tired or when temp is cold at night. Does feel that her mirena and perimenopause hormonal changes are bothering her . She feels that her complains about her libido changes and she has some days that she is still irritable/easily upset and is emotional. Has support from her family. Still also getting used to a new job at [employer] as well. Obesity, weight at 200 lbs. Knows need for further weight loss. Is taking the qsymia and tolerating rx well. Would like to continue medication. Trying to continue healthy diet choices and exercise as well. PAST MEDICAL HISTORY Diagnosis Date MAXIM positive 09/2014 Inflammatory polyarthropathy (HCC) Kidney stone with stent Raynaud's disease PAST SURGICAL HISTORY Procedure Laterality Date DANDC (MISSED AB 1ST TRIMESTER) 2001 ESWL Right 05/08/2017 EXTRACTION, ERUPTED TOOTH OR EXPOSED ROOT (ELEVATION AND/OR FORCEPS REMOVAL) GALLBLADDER/EF TUBAL LIGATION HX 2005 Current Outpatient Medications Medication Sig buPROPion (WELLBUTRIN) 75 mg tablet Take 1 tablet by mouth two times a day. hydrOXYchloroQUINE (PLAQUENIL) 200 mg tablet Take 1 tablet by mouth once daily. metroNIDAZOLE (METROGEL) 1 % Topical Gel Apply 1 application to affected area once daily. Location: rosacea naproxen (NAPROSYN) 500 mg tablet Take 1 tablet by mouth twice daily as needed (for pain/inflammation). Take with food. levonorgestrel (MIRENA) 20 mcg/24 hours (5 yrs) 52 mg IUD 1 Each by INTRAUTERINE route as directed. Cholecalciferol, Vitamin D3, 2,000 unit cap Take 2 tablets by mouth once daily. chlorthalidone (HYGROTON) 25 mg tablet Take 1 tablet by mouth once daily. As needed for edema amLODIPine (NORVASC) 5 mg tablet Take 1 tablet by mouth once daily. furosemide (LASIX) 20 mg tablet Take 0.5-1 tablets by mouth daily with breakfast. No current facility-administered medications for this visit. ALLERGIES Allergen Reactions Penicillins Unknown Social History Tobacco Use Smoking status: Never Smokeless tobacco: Never Vaping Use Vaping Use: Never used Substance Use Topics Alcohol use: Yes Comment: occ Drug use: No ROS: See HPI PE: BP 120/80 Pulse 64 Temp (Src) 98.4 (Left Tympanic) Resp 16 Wt 200 lb (90.7kg) LMP 12/29/2020 Gen: AANDOX3, NAD, non-toxic appearing HEENT: PERRLA, EOMs intact b/l, nares without drainage, pharynx without erythema, exudate, lesions, or drainage. Uvula midline. Neck: No LAD, no thyromegaly, no meningismus. CV: RRR, no murmur Lungs: CTA b/l, no wheezing Skin: No rashes, lesions, or wounds on exposed skin. Raynauds changes of hands/fingers Central overweight No edema legs ASSESSMENT/PLAN: 1. LIVIA (generalized anxiety disorder) - ICD9: 300.02, ICD10: F41.1 (primary diagnosis) Increase dose of wellbutrin as prescribed, she is tolerating well, consider therapy/counseling as well. Think symptoms are also influenced by perimenopause - BUPROPION HCL 75 MG TABLET 2. Bilateral leg edema - ICD9: 782.3, ICD10: R60.0 rx refilled. stable - CHLORTHALIDONE 25 MG TABLET 3. Need for influenza vaccination - ICD9: V04.81, ICD10: Z23 - INFLUENZA VACCINE, AGE 6 MO - 64 YR, QUADRIVALENT (AFLURIA, FLULAVAL, FLUZONE) 4. Inflammatory polyarthropathy (HCC) - ICD9: 714.9, ICD10: M06.4 rx refilled. Consider restarting nutrition therapy, continue weight loss efforts and need for anti inflammatory diet. - CONSULT TO NUTRITION THERAPY - QSYMIA 11.25 MG-69 MG CAPSULE, EXTENDED RELEASE 5. Obesity, Class III, BMI 40-49.9 (morbid obesity) (HCC) - ICD9: 278.01, ICD10: E66.01 Stable - Behavioral intervention, - Pharmacological intervention, - Eat well program, and - Continue current medications - CONSULT TO NUTRITION THERAPY 6. Situational depression - ICD9: 309.0, ICD10: F43.21 See above, increase dose of wellbutrin - BUPROPION HCL 75 MG TABLET 7. Encounter for screening mammogram for malignant neoplasm of breast - ICD9: V76.12, ICD10: Z12.31 - Set up for mammogram, yearly mammogram recommended - Encouraged monthly BSE - Increase calcium intake with supplements or by diet (goal of [id number] mg/day - [facility] SCREENING 8. Dyslipidemia - ICD9: 272.4, ICD10: E78.5 - Control undetermined, due for labs - Counseled on healthy diet and regu (more content not included)... [facility] 06-03-2023 History of Present illness Narrative CC: Jesusiat Caal is a 43 year old female who presents to the office for follow up HPI: Recently had eye examination and recently received bifocal change for visual adjustment. Had been having a lot of eye strain and fatigue symptoms. Was seen by Dr. Genao. Just had this diagnosis given last week. Inflammatory polyarthropathy, no signs of retinal concerns for her plaquenil monitoring. Still getting some cold symptoms with hands and then flushing in her cheeks- worse when anxious or tired or when temp is cold at night. Does feel that her mirena and perimenopause hormonal changes are bothering her . She feels that her complains about her libido changes and she has some days that she is still irritable/easily upset and is emotional. Has support from her family. Still also getting used to a new job at [employer] as well. Obesity, weight at 200 lbs. Knows need for further weight loss. Is taking the qsymia and tolerating rx well. Would like to continue medication. Trying to continue healthy diet choices and exercise as well. PAST MEDICAL HISTORY Diagnosis Date MAXIM positive 09/2014 Inflammatory polyarthropathy (HCC) Kidney stone with stent Raynaud's disease PAST SURGICAL HISTORY Procedure Laterality Date D&C (MISSED AB 1ST TRIMESTER) 2001 ESWL Right 05/08/2017 EXTRACTION, ERUPTED TOOTH OR EXPOSED ROOT (ELEVATION AND/OR FORCEPS REMOVAL) GALLBLADDER/EF TUBAL LIGATION HX 2006 Current Outpatient Medications Medication Sig buPROPion (WELLBUTRIN) 75 mg tablet Take 1 tablet by mouth two times a day. hydrOXYchloroQUINE (PLAQUENIL) 200 mg tablet Take 1 tablet by mouth once daily. metroNIDAZOLE (METROGEL) 1 % Topical Gel Apply 1 application to affected area once daily. Location: rosacea naproxen (NAPROSYN) 500 mg tablet Take 1 tablet by mouth twice daily as needed (for pain/inflammation). Take with food. levonorgestrel (MIRENA) 20 mcg/24 hours (5 yrs) 52 mg IUD 1 Each by INTRAUTERINE route as directed. Cholecalciferol, Vitamin D3, 2,000 unit cap Take 2 tablets by mouth once daily. chlorthalidone (HYGROTON) 25 mg tablet Take 1 tablet by mouth once daily. As needed for edema amLODIPine (NORVASC) 5 mg tablet Take 1 tablet by mouth once daily. furosemide (LASIX) 20 mg tablet Take 0.5-1 tablets by mouth daily with breakfast. No current facility-administered medications for this visit. ALLERGIES Allergen Reactions Penicillins Unknown Social History Tobacco Use Smoking status: Never Smokeless tobacco: Never Vaping Use Vaping Use: Never used Substance Use Topics Alcohol use: Yes Comment: occ Drug use: No ROS: See HPI PE: BP 120/80 Pulse 64 Temp (Src) 98.4 (Left Tympanic) Resp 16 Wt 200 lb (90.7kg) LMP 12/29/2020 Gen: A&OX3, NAD, non-toxic appearing HEENT: PERRLA, EOMs intact b/l, nares without drainage, pharynx without erythema, exudate, lesions, or drainage. Uvula midline. Neck: No LAD, no thyromegaly, no meningismus. CV: RRR, no murmur Lungs: CTA b/l, no wheezing Skin: No rashes, lesions, or wounds on exposed skin. Raynauds changes of hands/fingers Central overweight No edema legs ASSESSMENT/PLAN: 1. LIVIA (generalized anxiety disorder) - ICD9: 300.02, ICD10: F41.1 (primary diagnosis) Increase dose of wellbutrin as prescribed, she is tolerating well, consider therapy/counseling as well. Think symptoms are also influenced by perimenopause - BUPROPION HCL 75 MG TABLET 2. Bilateral leg edema - ICD9: 782.3, ICD10: R60.0 rx refilled. stable - CHLORTHALIDONE 25 MG TABLET 3. Need for influenza vaccination - ICD9: V04.81, ICD10: Z23 - INFLUENZA VACCINE, AGE 6 MO - 64 YR, QUADRIVALENT (AFLURIA, FLULAVAL, FLUZONE) 4. Inflammatory polyarthropathy (HCC) - ICD9: 714.9, ICD10: M06.4 rx refilled. Consider restarting nutrition therapy, continue weight loss efforts and need for anti inflammatory diet. - CONSULT TO NUTRITION THERAPY - QSYMIA 11.25 MG-69 MG CAPSULE, EXTENDED RELEASE 5. Obesity, Class III, BMI 40-49.9 (morbid obesity) (HCC) - ICD9: 278.01, ICD10: E66.01 Stable - Behavioral intervention, - Pharmacological intervention, - Eat well program, and - Continue current medications - CONSULT TO NUTRITION THERAPY 6. Situational depression - ICD9: 309.0, ICD10: F43.21 See above, increase dose of wellbutrin - BUPROPION HCL 75 MG TABLET 7. Encounter for screening mammogram for malignant neoplasm of breast - ICD9: V76.12, ICD10: Z12.31 - Set up for mammogram, yearly mammogram recommended - Encouraged monthly BSE - Increase calcium intake with supplements or by diet (goal of 2761-1854 mg/day - [facility]CRE[facility] 8. Dyslipidemia - ICD9: 272.4, ICD10: E78.5 - Control undetermined, due for labs - Counseled on healthy diet and regular exercise - QSYMIA 11.25 MG-69 MG CAPSULE, EXTENDED RELEASE 9. Obesity, Class I, BMI 30-34.9 - ICD9: 278.00, ICD10: E66.9 - Lengthy discussion in office today regarding diet and exercise. Discussed use of small plate to eat meals from, drink 1 glass of water 10-15 minutes prior to eating meal, drink 8 glasses of water daily, eat fresh fruit and vegetable during meal first then lean protein such as grilled/baked chicken breast or fish, limit carbohydrate intake (less pasta, breads, rice and snack foods) as well as limiting sugars (desserts etc). Important to count / track your calories and exercise as well. Continue Qsymia, f/u in 2-3 months in office - QSYMIA 11.25 MG-69 MG CAPSULE, EXTENDED RELEASE 10. Varicose veins of both lower extremities with pain - ICD9: 454.8, ICD10: I83.813 - CONSULT TO VASCULAR SURGERY Hilton Alcaraz DO Return if no improvement. Follow up with Hilton Alcaraz DO. To ER if develops chest pain, shortness of breath. Discussed risks, benefits, alternatives, and potential side effects of medications. Patient/Guardian expressed understanding and agreed with the plan. See patient instructions. Hilton Alcaraz DO [address] [place] [address] documented in this encounter [facility] 05-04-2023 Miscellaneous Notes Monica--03/02/23 Nov--05/15/23 Last refill--12/22/22 180 with 1 refill Last labs--11/20/22 Patient has been identified by name and date of : Yes Last office visit in this department: Visit date not found RX INSTRUCTIONS: Patient aware RX will be sent to pharmacy. No need to notify patient. Patient phones requesting refills as follows: Requested Prescriptions Pending Prescriptions Disp Refills buPROPion (WELLBUTRIN) 75 mg tablet 180 tablet 1 Sig: Take 1 tablet by mouth two times a day. Please review and advise. Ngoc Garcia documented in this encounter [facility] 04-14-2023 Miscellaneous Notes Patient has been notified of message below and verbalized understanding. Edilia Salas MA Ok to give 90 day supply, she will be due for eye exam in July, no labs needed right now. Please let her know, thanks. Patient calling to advise that she has lost her insurance coverage for the remainder of this month. She cannot afford an uncovered appointment, owing [facility] $1000 already. She cancelled the appointment with Dr Junior on 04/16/23 for these reasons. She asks that her medication hydrOXYchloroQUINE (PLAQUENIL) 200 mg tablet [facility]. Patient has only 4 or 5 tablets left. She asked for a 90-day prescription. She expects to be insured May 03, 2023. She says that she is doing really well and that she checks in with her PCP regularly. Patient will reschedule when she know whether or not [facility] is in what will be her new insurance through [facility]. If Dr Junior requires that she have labs, patient said that she can get them done at [facility] at a reduced cost. Please assist. documented in this encounter [facility] 04-03-2023 Miscellaneous Notes Patient has been identified by name and date of : Yes, Yeimy Oropeza RN Date 04/03/2023 Time 12:39 pm Patient phones for refill(s): Requested Prescriptions Pending Prescriptions Disp Refills chlorthalidone (HYGROTON) 25 mg tablet 30 tablet 2 Sig: Take 1 tablet by mouth once daily. As needed for edema Patient almost out of medication. Asking to switch to a 30 day supply d/t insurance currently. Date of last office visit with pcp: 03/02/2023 Future appt: 06/03/2023 Last 2 Encounter Wt Readings: Date: Wt: 03/02/2023 88.9 kg (196 lb) 11/24/2022 90.3 kg (199 lb) Previous labs/tests for medication: Blood Pressure: BUN (mg/dL) Date Value 08/28/2022 15 04/16/2021 14 Sodium (mmol/L) Date Value 08/28/2022 139 04/16/2021 134 Last 1 Encounter BP Readings: Date: BP: 03/02/2023 120/70 Liver Function: ALT (U/L) Date Value 08/28/2022 15 04/16/2021 18 AST (U/L) Date Value 08/28/2022 18 04/16/2021 19 Please advise. Thank you. Yeimy Oropeza RN documented in this encounter [facility] 03-03-2023 Note HNO ID: [id number] Author: Hilton Alcaraz, DO Service: ? Author Type: Physician Type: Progress Notes Filed: 03/03/2023 6:45 AM Note Text: CC: Jesusita Caal is a 43 year old female who presents to the office for 3 months follow up HPI: Obesity, weight is continuing to improve, 3 months ago was weighing 199 lbs and 196 lbs today in office. Is trying to continue a very healthy diet with smaller portions, increased proteins and healthy fats intake, increased green vegetables and healthy fresh fruits and limiting her simple carbohydrates. She was consistently exercising by getting at least 5,000-10,000 steps per day and has started a work out routine at her home with an exercise bike which she is enjoying. Tolerating the Qsymia medication well- has missed a few days of the medication. She has had a lot of recent stress since last in the office 3 months ago. She is now working for [employer] and quit her previous job due to stressors with the work environment and not feeling appreciated and listened to. She is adjusting to her new job and feels that she has had some difficulty figuring out her new routine with eating etc since she is doing this new job but is enjoying it. She is questioning if she needs to increase her dose of Wellbutrin during this transition time since it seems like she is slightly more depressed- no SI or HI. 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 Hours will be 730 am to 4 pm so she feels that this will fit what she needs for good healthy habits with exercise and diet. 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 Leg edema has improved, has diuretic to take as needed HPL, making diet changes as above and weight loss. Undifferentiated connective tissue disease, sicca syndrome, Inflammatory arthropathy, taking Plaquenil, will be following up with her Resident Care Technician. PAST MEDICAL HISTORY Diagnosis Date MAXIM positive 09/2014 Inflammatory polyarthropathy (HCC) Kidney stone with stent Raynaud's disease PAST SURGICAL HISTORY Procedure Laterality Date [facility] (MISSED AB 1ST TRIMESTER) 2001 ESWL Right 05/08/2017 EXTRACTION, ERUPTED TOOTH OR EXPOSED ROOT (ELEVATION AND/OR FORCEPS REMOVAL) GALLBLADDER/EF TUBAL LIGATION HX 2005 Current Outpatient Medications Medication Sig phentermine-topiramate ER (QSYMIA) 11.25-69 mg 24 Hr Capsule Take 1 capsule by mouth once daily for 90 days. BMI 30 hydrOXYchloroQUINE (PLAQUENIL) 200 mg tablet Take 1 tablet by mouth once daily. buPROPion (WELLBUTRIN) 75 mg tablet Take 1 tablet by mouth twice daily. chlorthalidone (HYGROTON) 25 mg tablet Take 1 tablet by mouth once daily. As needed for edema amLODIPine (NORVASC) 5 mg tablet Take 1 tablet by mouth once daily. metroNIDAZOLE (METROGEL) 1 % Topical Gel Apply 1 application to affected area once daily. Location: rosacea naproxen (NAPROSYN) 500 mg tablet Take 1 tablet by mouth twice daily as needed (for pain/inflammation). Take with food. levonorgestrel (MIRENA) 20 mcg/24 hours (5 yrs) 52 mg IUD 1 Each by INTRAUTERINE route as directed. Cholecalciferol, Vitamin D3, 2,000 unit cap Take 2 tablets by mouth once daily. furosemide (LASIX) 20 mg tablet Take 0.5-1 tablets by mouth daily with breakfast. No current facility-administered medications for this visit. ALLERGIES Allergen Reactions Penicillins Unknown Social History Tobacco Use Smoking status: Never Smokeless tobacco: Never Vaping Use Vaping Use: Never used Substance Use Topics Alcohol use: Yes Comment: occ Drug use: No ROS: See HPI PE: BP 120/70 Pulse 76 Temp (Src) 97.9 (Temporal) Resp 12 Wt 196 lb (88.9kg) LMP 12/29/2020 Gen: AANDOX3, NAD, non-toxic appearing HEENT: PERRLA, EOMs intact b/l, nares without drainage, pharynx without erythema, exudate, lesions, or drainage. Uvula midline. Neck: No LAD, no thyromegaly, no meningismus. CV: RRR, no murmur Lungs: CTA b/l, no wheezing Skin: No rashes, lesions, or wounds on exposed skin. No edema, normal pulses Arthritis changes of hands and feet ASSESSMENT/PLAN: 1. Dyslipidemia - ICD9: 272.4, ICD10: E78.5 (primary diagnosis) - Control undetermined, due for labs - Continue current medications - Counseled on healthy diet and regular exercise - Discussed need for and benefit of weight loss. BMI 30.70 kg/(m2) 2. Inflammatory polyarthropathy (HCC) - ICD9: 714.9, ICD10: M06.4 F/u with Resident Care Technician, chronic, stable. 3. Obesity, Class I, BMI 30-34.9 - ICD9: 278.00, ICD10: E66.9 Weight decreasing - Behavioral intervention, - Pharmacological intervention, - Eat well program, and - Continue current medications 4. LIVIA (generalized anxiety disorder) - ICD9: (more content not included)... [facility] 03-03-2023 History of Present illness Narrative CC: Jesusita Caal is a 43 year old female who presents to the office for 3 months follow up HPI: Obesity, weight is continuing to improve, 3 months ago was weighing 199 lbs and 196 lbs today in office. Is trying to continue a very healthy diet with smaller portions, increased proteins and healthy fats intake, increased green vegetables and healthy fresh fruits and limiting her simple carbohydrates. She was consistently exercising by getting at least 5,000-10,000 steps per day and has started a work out routine at her home with an exercise bike which she is enjoying. Tolerating the Qsymia medication well- has missed a few days of the medication. She has had a lot of recent stress since last in the office 3 months ago. She is now working for [employer] and quit her previous job due to stressors with the work environment and not feeling appreciated and listened to. She is adjusting to her new job and feels that she has had some difficulty figuring out her new routine with eating etc since she is doing this new job but is enjoying it. She is questioning if she needs to increase her dose of Wellbutrin during this transition time since it seems like she is slightly more depressed- no SI or HI. 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 Hours will be 730 am to 4 pm so she feels that this will fit what she needs for good healthy habits with exercise and diet. 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 Leg edema has improved, has diuretic to take as needed HPL, making diet changes as above and weight loss. Undifferentiated connective tissue disease, sicca syndrome, Inflammatory arthropathy, taking Plaquenil, will be following up with her Resident Care Technician. PAST MEDICAL HISTORY Diagnosis Date MAXIM positive 09/2014 Inflammatory polyarthropathy (HCC) Kidney stone with stent Raynaud's disease PAST SURGICAL HISTORY Procedure Laterality Date D&C (MISSED AB 1ST TRIMESTER) 2001 ESWL Right 05/08/2017 EXTRACTION, ERUPTED TOOTH OR EXPOSED ROOT (ELEVATION AND/OR FORCEPS REMOVAL) GALLBLADDER/EF TUBAL LIGATION HX 2005 Current Outpatient Medications Medication Sig phentermine-topiramate ER (QSYMIA) 11.25-69 mg 24 Hr Capsule Take 1 capsule by mouth once daily for 90 days. BMI 30 hydrOXYchloroQUINE (PLAQUENIL) 200 mg tablet Take 1 tablet by mouth once daily. buPROPion (WELLBUTRIN) 75 mg tablet Take 1 tablet by mouth twice daily. chlorthalidone (HYGROTON) 25 mg tablet Take 1 tablet by mouth once daily. As needed for edema amLODIPine (NORVASC) 5 mg tablet Take 1 tablet by mouth once daily. metroNIDAZOLE (METROGEL) 1 % Topical Gel Apply 1 application to affected area once daily. Location: rosacea naproxen (NAPROSYN) 500 mg tablet Take 1 tablet by mouth twice daily as needed (for pain/inflammation). Take with food. levonorgestrel (MIRENA) 20 mcg/24 hours (5 yrs) 52 mg IUD 1 Each by INTRAUTERINE route as directed. Cholecalciferol, Vitamin D3, 2,000 unit cap Take 2 tablets by mouth once daily. furosemide (LASIX) 20 mg tablet Take 0.5-1 tablets by mouth daily with breakfast. No current facility-administered medications for this visit. ALLERGIES Allergen Reactions Penicillins Unknown Social History Tobacco Use Smoking status: Never Smokeless tobacco: Never Vaping Use Vaping Use: Never used Substance Use Topics Alcohol use: Yes Comment: occ Drug use: No ROS: See HPI PE: BP 120/70 Pulse 76 Temp (Src) 97.9 (Temporal) Resp 12 Wt 196 lb (88.9kg) LMP 12/29/2020 Gen: A&OX3, NAD, non-toxic appearing HEENT: PERRLA, EOMs intact b/l, nares without drainage, pharynx without erythema, exudate, lesions, or drainage. Uvula midline. Neck: No LAD, no thyromegaly, no meningismus. CV: RRR, no murmur Lungs: CTA b/l, no wheezing Skin: No rashes, lesions, or wounds on exposed skin. No edema, normal pulses Arthritis changes of hands and feet ASSESSMENT/PLAN: 1. Dyslipidemia - ICD9: 272.4, ICD10: E78.5 (primary diagnosis) - Control undetermined, due for labs - Continue current medications - Counseled on healthy diet and regular exercise - Discussed need for and benefit of weight loss. BMI 30.70 kg/(m^2) 2. Inflammatory polyarthropathy (HCC) - ICD9: 714.9, ICD10: M06.4 F/u with Resident Care Technician, chronic, stable. 3. Obesity, Class I, BMI 30-34.9 - ICD9: 278.00, ICD10: E66.9 Weight decreasing - Behavioral intervention, - Pharmacological intervention, - Eat well program, and - Continue current medications 4. LIVIA (generalized anxiety disorder) - ICD9: 300.02, ICD10: F41.1 Stable despite her stressors, changing jobs, she is looking forward to this as well. 5. Raynaud's phenomenon without gangrene - ICD9: 443.0, ICD10: I73.00 See above, chronic, stable 6. Bilateral leg edema - ICD9: 782.3, ICD10: R60.0 - stable, continue diuretic 7. Vitamin D deficiency - ICD9: 268.9, ICD10: E55.9 Continue supplement, stable Hilton Alcaraz DO Return if no improvement. Follow up with Hilton Alcaraz DO. To ER if develops chest pain, shortness of breath Discussed risks, benefits, alternatives, and potential side effects of medications. Patient/Guardian expressed understanding and agreed with the plan. See patient instructions. Hilton Alcaraz DO [address] [place] [address] documented in this encounter [facility] 01-28-2023 Miscellaneous Notes Pt. informed Dr. Alcaraz is on Vacation. Message left. Patient insurance is changing after February 07. Is there any way patient cn be squeezed in this week or next? Please advise and call patient. documented in this encounter [facility] 01-06-2023 Miscellaneous Notes Patient has been identified by name and date of : Yes RX INSTRUCTIONS: Patient aware RX will be sent to pharmacy. No need to notify patient. PLQ eye exam done on 05/20/2022 at [facility]. No evidence of PLQ toxicity. LAST APPOINTMENT: 08/28/2022 UPCOMING APPOINTMENT: 04/16/2023 LABS: Hemoglobin (g/dL) Date Value 08/28/2022 14.2 04/16/2021 13.9 Hematocrit (%) Date Value 08/28/2022 42.3 04/16/2021 42.6 WBC (k/uL) Date Value 08/28/2022 5.65 04/16/2021 5.06 Platelet Count (k/uL) Date Value 08/28/2022 250 04/16/2021 249 AST Date Value Ref Range Status 08/28/2022 18 13 - 35 U/L Final ALT Date Value Ref Range Status 08/28/2022 15 7 - 38 U/L Final Creatinine Date Value Ref Range Status 08/28/2022 0.86 0.58 - 0.96 mg/dL Final No results found for: URICACID Jaja Motley MA Patient called to request a refill on the medication(s) below. Physician's Name: Dr. Junior MEDICATION: Plaquenil DOSAGE: 200 mg FREQUENCY: take 1 tablet by mouth once daily #SUPPLY NEEDED: 30 day supply Patient states she stopped taking Norvasc because it made her sim red, her PCP advised to stop taking it. Script to go to [facility] mail order documented in this encounter [facility] 12-24-2022 Note Patient Outreach (IN [facility]) JESUSITA CAAL ([id number]) 1980 F Date Time Provider Department 12/24/22 HILTON ALCARAZ During your visit today, we recorded the following information about you: Allergies As of Date: 12/24/2022 Noted Allergy Reaction PENICILLINS 08/30/2013 16 - Unknown Date Reviewed: 11/24/2022 Reviewed by: Char Valencia LPN - Fully Assessed Visit Diagnosis:Encounter for screening mammogram for breast cancer [Z12.31] Order(s):[facility] [[id number]] Order #: [id number] FUTURE Prescriptions as of 12/29/2022 - buPROPion (WELLBUTRIN) 75 mg tablet Take 1 tablet by mouth twice daily. - chlorthalidone (HYGROTON) 25 mg tablet Take 1 tablet by mouth once daily. As needed for edema - phentermine-topiramate ER (QSYMIA) 11.25-69 mg 24 Hr Capsule Take 1 capsule by mouth once daily for 90 days. BMI 30 - hydrOXYchloroQUINE (PLAQUENIL) 200 mg tablet Take 1 tablet by mouth once daily. - amLODIPine (NORVASC) 5 mg tablet Take 1 tablet by mouth once daily. - metroNIDAZOLE (METROGEL) 1 % Topical Gel Apply 1 application to affected area once daily. Location: rosacea - naproxen (NAPROSYN) 500 mg tablet Take 1 tablet by mouth twice daily as needed (for pain/inflammation). Take with food. - furosemide (LASIX) 20 mg tablet Take 0.5-1 tablets by mouth daily with breakfast. - levonorgestrel (MIRENA) 20 mcg/24 hours (5 yrs) 52 mg IUD 1 Each by INTRAUTERINE route as directed. - Cholecalciferol, Vitamin D3, 2,000 unit cap Take 2 tablets by mouth once daily. Problem List As Of Date 12/24/2022 Noted Resolved Varicose veins of both legs with edema [I83.893]09/15/2014 Raynaud phenomenon [I73.00] 09/15/2014 Stiffness of hand joint [M25.649] 09/15/2014 Inflammatory polyarthropathy (HCC) [M06.4] 04/14/2015 Obesity, Class I, BMI 30-34.9 [E66.9] 01/16/2016 Symptomatic varicose veins [I83.899] 06/27/2016 Obesity, Class III, BMI 40-49.9 (morbid obesity*10/13/2017 Fatigue [R53.83] 10/13/2017 Vitamin D deficiency [E55.9] 10/13/2017 Chronic pain of both knees [M25.561, M25.562, G*10/13/2017 Edema [R60.9] 10/30/2018 LIVIA (generalized anxiety disorder) [F41.1] 03/04/2019 Menorrhagia with regular cycle [N92.0] 03/04/2019 Dyslipidemia [E78.5] 07/18/2019 Bilateral leg edema [R60.0] 01/21/2022 Eczematous dermatitis of upper eyelids of both *01/21/2022 Rosacea [L71.9] 07/23/2022 Hot flashes [R23.2] 10/28/2022 Situational depression [F43.21] 11/27/2022 Encounter Status:Closed by CHRISTIANE CONCEPCIONUSER on 12/29/22 [facility] 11-27-2022 Note HNO ID: [id number] Author: Hilton Alcaraz, DO Service: ? Author Type: Physician Type: Progress Notes Filed: 11/27/2022 9:36 AM Note Text: CC: Jesusita Caal is a 42 year old female who presents to the office for follow up HPI: Obesity, weight is continuing to improve, now weighing 199 lbs today in the office. Is trying to continue a very healthy diet with smaller portions, increased proteins and healthy fats intake, increased green vegetables and healthy fresh fruits and limiting her simple carbohydrates. She was consistently exercising by getting at least 5,000-10,000 steps per day and has started a work out routine at her home with an exercise bike which she is enjoying. Tolerating the Qsymia medication well- has missed a few days of the medication. She has had a lot of recent stress since last in the office 3 months ago. She is now working for [employer] and quit her previous job due to stressors with the work environment and not feeling appreciated and listened to. She is adjusting to her new job and feels that she has had some difficulty figuring out her new routine with eating etc since she is doing this new job but is enjoying it. 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 Undifferentiated connective tissue disease, sicca syndrome, Inflammatory arthropathy, taking Plaquenil, will be following up with her Resident Care Technician. PAST MEDICAL HISTORY Diagnosis Date MAXIM positive 09/2014 Inflammatory polyarthropathy (HCC) Kidney stone with stent Raynaud's disease PAST SURGICAL HISTORY Procedure Laterality Date [facility] (MISSED AB 1ST TRIMESTER) 2001 ESWL Right 05/08/2017 EXTRACTION, ERUPTED TOOTH OR EXPOSED ROOT (ELEVATION AND/OR FORCEPS REMOVAL) GALLBLADDER/EF TUBAL LIGATION HX 2005 Current Outpatient Medications Medication Sig phentermine-topiramate ER (QSYMIA) 11.25-69 mg 24 Hr Capsule Take 1 capsule by mouth once daily for 90 days. BMI 30 hydrOXYchloroQUINE (PLAQUENIL) 200 mg tablet Take 1 tablet by mouth once daily. amLODIPine (NORVASC) 5 mg tablet Take 1 tablet by mouth once daily. chlorthalidone (HYGROTON) 25 mg tablet Take 1 tablet by mouth once daily. As needed for edema metroNIDAZOLE (METROGEL) 1 % Topical Gel Apply 1 application to affected area once daily. Location: rosacea naproxen (NAPROSYN) 500 mg tablet Take 1 tablet by mouth twice daily as needed (for pain/inflammation). Take with food. levonorgestrel (MIRENA) 20 mcg/24 hours (5 yrs) 52 mg IUD 1 Each by INTRAUTERINE route as directed. buPROPion (WELLBUTRIN) 75 mg tablet Take 1 tablet by mouth twice daily. Take 1 tablets PO by mouth in the morning furosemide (LASIX) 20 mg tablet Take 0.5-1 tablets by mouth daily with breakfast. Cholecalciferol, Vitamin D3, 2,000 unit cap Take 2 tablets by mouth once daily. No current facility-administered medications for this visit. ALLERGIES Allergen Reactions Penicillins Unknown Social History Tobacco Use Smoking status: Never Smokeless tobacco: Never Vaping Use Vaping Use: Never used Substance Use Topics Alcohol use: Yes Comment: occ Drug use: No ROS: See HPI PE: BP 130/74 Pulse 64 Temp (Src) 98 (Left Tympanic) Resp 16 Wt 199 lb (90.3kg) LMP 12/29/2020 Gen: AANDOX3, NAD, non-toxic appearing HEENT: PERRLA, EOMs intact b/l, nares without drainage, pharynx without erythema, exudate, lesions, or drainage. Uvula midline. Neck: No LAD, no thyromegaly, no meningismus. CV: RRR, no murmur Lungs: CTA b/l, no wheezing Skin: No rashes, lesions, or wounds on exposed skin. Facial redness without signs of infection Edema and arthritis of joints of hands is mild No edema legs, normal peripheral pulses Seems mildly sullen, well dressed ASSESSMENT/PLAN: 1. LIVIA (generalized anxiety disorder) - ICD9: 300.02, ICD10: F41.1 (primary diagnosis) Increase dose of wellbutrin to help with mild depression symptoms, needs to continue healthy diet changes and routine exercise to help her mood as well. No SI or HI. Has had a lot of stress with job changes and family situation recently - BUPROPION HCL 75 MG TABLET 2. Inflammatory polyarthropathy (HCC) - ICD9: 714.9, ICD10: M06.4 - f/u with Rheum 3. Dyslipidemia - ICD9: 272.4, ICD10: E78.5 - to be determined upon return of lab results - Encouraged following a low fat, low cholesterol diet. - Discussed the benefits of regular aerobic exercise and weight loss. 4. Obesity, Class I, BMI 30-34.9 - ICD9: 278.00, ICD10: E66.9 Stable - (more content not included)... [facility] 11-27-2022 History of Present illness Narrative CC: Jesusita Caal is a 42 year old female who presents to the office for follow up HPI: Obesity, weight is continuing to improve, now weighing 199 lbs today in the office. Is trying to continue a very healthy diet with smaller portions, increased proteins and healthy fats intake, increased green vegetables and healthy fresh fruits and limiting her simple carbohydrates. She was consistently exercising by getting at least 5,000-10,000 steps per day and has started a work out routine at her home with an exercise bike which she is enjoying. Tolerating the Qsymia medication well- has missed a few days of the medication. She has had a lot of recent stress since last in the office 3 months ago. She is now working for [employer] and quit her previous job due to stressors with the work environment and not feeling appreciated and listened to. She is adjusting to her new job and feels that she has had some difficulty figuring out her new routine with eating etc since she is doing this new job but is enjoying it. 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 Undifferentiated connective tissue disease, sicca syndrome, Inflammatory arthropathy, taking Plaquenil, will be following up with her Resident Care Technician. PAST MEDICAL HISTORY Diagnosis Date MAXIM positive 09/2014 Inflammatory polyarthropathy (HCC) Kidney stone with stent Raynaud's disease PAST SURGICAL HISTORY Procedure Laterality Date D&C (MISSED AB 1ST TRIMESTER) 2001 ESWL Right 05/08/2017 EXTRACTION, ERUPTED TOOTH OR EXPOSED ROOT (ELEVATION AND/OR FORCEPS REMOVAL) GALLBLADDER/EF TUBAL LIGATION HX 2006 Current Outpatient Medications Medication Sig phentermine-topiramate ER (QSYMIA) 11.25-69 mg 24 Hr Capsule Take 1 capsule by mouth once daily for 90 days. BMI 30 hydrOXYchloroQUINE (PLAQUENIL) 200 mg tablet Take 1 tablet by mouth once daily. amLODIPine (NORVASC) 5 mg tablet Take 1 tablet by mouth once daily. chlorthalidone (HYGROTON) 25 mg tablet Take 1 tablet by mouth once daily. As needed for edema metroNIDAZOLE (METROGEL) 1 % Topical Gel Apply 1 application to affected area once daily. Location: rosacea naproxen (NAPROSYN) 500 mg tablet Take 1 tablet by mouth twice daily as needed (for pain/inflammation). Take with food. levonorgestrel (MIRENA) 20 mcg/24 hours (5 yrs) 52 mg IUD 1 Each by INTRAUTERINE route as directed. buPROPion (WELLBUTRIN) 75 mg tablet Take 1 tablet by mouth twice daily. Take 1 tablets PO by mouth in the morning furosemide (LASIX) 20 mg tablet Take 0.5-1 tablets by mouth daily with breakfast. Cholecalciferol, Vitamin D3, 2,000 unit cap Take 2 tablets by mouth once daily. No current facility-administered medications for this visit. ALLERGIES Allergen Reactions Penicillins Unknown Social History Tobacco Use Smoking status: Never Smokeless tobacco: Never Vaping Use Vaping Use: Never used Substance Use Topics Alcohol use: Yes Comment: occ Drug use: No ROS: See HPI PE: BP 130/74 Pulse 64 Temp (Src) 98 (Left Tympanic) Resp 16 Wt 199 lb (90.3kg) LMP 12/29/2020 Gen: A&OX3, NAD, non-toxic appearing HEENT: PERRLA, EOMs intact b/l, nares without drainage, pharynx without erythema, exudate, lesions, or drainage. Uvula midline. Neck: No LAD, no thyromegaly, no meningismus. CV: RRR, no murmur Lungs: CTA b/l, no wheezing Skin: No rashes, lesions, or wounds on exposed skin. Facial redness without signs of infection Edema and arthritis of joints of hands is mild No edema legs, normal peripheral pulses Seems mildly sullen, well dressed ASSESSMENT/PLAN: 1. LIVIA (generalized anxiety disorder) - ICD9: 300.02, ICD10: F41.1 (primary diagnosis) Increase dose of wellbutrin to help with mild depression symptoms, needs to continue healthy diet changes and routine exercise to help her mood as well. No SI or HI. Has had a lot of stress with job changes and family situation recently - BUPROPION HCL 75 MG TABLET 2. Inflammatory polyarthropathy (HCC) - ICD9: 714.9, ICD10: M06.4 - f/u with Rheum 3. Dyslipidemia - ICD9: 272.4, ICD10: E78.5 - to be determined upon return of lab results - Encouraged following a low fat, low cholesterol diet. - Discussed the benefits of regular aerobic exercise and weight loss. 4. Obesity, Class I, BMI 30-34.9 - ICD9: 278.00, ICD10: E66.9 Stable - Behavioral intervention, - Eat well program, and - Continue current medications 5. Raynaud's phenomenon without gangrene - ICD9: 443.0, ICD10: I73.00 Stop amlodipine, think this is contributing to her facial redness/rash 6. Situational depression - ICD9: 309.0, ICD10: F43.21 Increase dose of wellbutrin to help with mild depression symptoms, needs to continue healthy diet changes and routine exercise to help her mood as well. No SI or HI. Has had a lot of stress with job changes and family situation recently - BUPROPION HCL 75 MG TABLET Hilton Alcaraz DO Return if no improvement. Follow up with Hilton Alcaraz DO. To ER if develops chest pain, shortness of breath Discussed risks, benefits, alternatives, and potential side effects of medications. Patient/Guardian expressed understanding and agreed with the plan. See patient instructions. Hilton Alcaraz DO [address] [place] [address] documented in this encounter [facility] 11-24-2022 Instructions Hilton Alcaraz DO - 11/24/2022 2:47 PM EDT Fresca soda Or Gingerale without sugar or Sprite PRIME drinks- strawberry watermelon is good documented in this encounter [facility] 10-28-2022 Note HNO ID: [id number] Author: Hilton Alcaraz DO Service: ? Author Type: Physician Type: Progress Notes Filed: 10/28/2022 7:39 AM Note Text: CC: Jesusita Caal is a 42 year old female who presents to the office for follow up HPI: Obesity, weight is continuing to improve, now weighing 196 lbs today in the office. Is trying to continue a very healthy diet with smaller portions, increased proteins and healthy fats intake, increased green vegetables and healthy fresh fruits and limiting her simple carbohydrates. She was consistently exercising by getting at least 10,000 steps per day and has started a work out routine at her home with an exercise bike which she is enjoying. Tolerating the Qsymia medication well. She has had a lot of recent stress since last in the office 3 months ago. She is now working for [employer] and quit her previous job due to stressors with the work environment and not feeling appreciated and listened to. She is adjusting to her new job and feels that she has had some difficulty figuring out her new routine with eating etc since she is doing this new job but is enjoying it Leg edema has improved, hasn't had to take her diuretic recently HPL, making diet changes as above and weight loss. Undifferentiated connective tissue disease, sicca syndrome, Inflammatory arthropathy, taking Plaquenil, will be following up with her Resident Care Technician. PAST MEDICAL HISTORY Diagnosis Date MAXIM positive 09/2014 Inflammatory polyarthropathy (HCC) Kidney stone with stent Raynaud's disease PAST SURGICAL HISTORY Procedure Laterality Date [facility] (MISSED AB 1ST TRIMESTER) 2001 ESWL Right 05/08/2017 EXTRACTION, ERUPTED TOOTH OR EXPOSED ROOT (ELEVATION AND/OR FORCEPS REMOVAL) GALLBLADDER/EF TUBAL LIGATION HX 2005 Current Outpatient Medications Medication Sig hydrOXYchloroQUINE (PLAQUENIL) 200 mg tablet Take 1 tablet by mouth once daily. amLODIPine (NORVASC) 5 mg tablet Take 1 tablet by mouth once daily. chlorthalidone (HYGROTON) 25 mg tablet Take 1 tablet by mouth once daily. As needed for edema metroNIDAZOLE (METROGEL) 1 % Topical Gel Apply 1 application to affected area once daily. Location: rosacea buPROPion (WELLBUTRIN) 75 mg tablet Take 1 tablets PO by mouth in the morning naproxen (NAPROSYN) 500 mg tablet Take 1 tablet by mouth twice daily as needed (for pain/inflammation). Take with food. levonorgestrel (MIRENA) 20 mcg/24 hours (5 yrs) 52 mg IUD 1 Each by INTRAUTERINE route as directed. Cholecalciferol, Vitamin D3, 2,000 unit cap Take 2 tablets by mouth once daily. phentermine-topiramate ER (QSYMIA) 11.25-69 mg 24 Hr Capsule Take 1 capsule by mouth once daily for 90 days. BMI 30 furosemide (LASIX) 20 mg tablet Take 0.5-1 tablets by mouth daily with breakfast. No current facility-administered medications for this visit. ALLERGIES Allergen Reactions Penicillins Unknown Social History Tobacco Use Smoking status: Never Smokeless tobacco: Never Vaping Use Vaping Use: Never used Substance Use Topics Alcohol use: Yes Comment: occ Drug use: No ROS: See HPI. PE: BP 136/80 Pulse 72 Temp (Src) 97 (Left Tympanic) Resp 16 Wt 196 lb (88.9kg) LMP 12/29/2020 Gen: AANDOX3, NAD, non-toxic appearing HEENT: PERRLA, EOMs intact b/l, nares without drainage, pharynx without erythema, exudate, lesions, or drainage. Uvula midline. Neck: No LAD, no thyromegaly, no meningismus. CV: RRR, no murmur Lungs: CTA b/l, no wheezing Skin: No rashes, lesions, or wounds on exposed skin. No edema, normal pulses Inflammatory arthritis changes in hands and feet ASSESSMENT/PLAN: 1. Dyslipidemia - ICD9: 272.4, ICD10: E78.5 (primary diagnosis) - suboptimal control - Encouraged following a low fat, low cholesterol diet. - Discussed the benefits of regular aerobic exercise and weight loss. - QSYMIA 11.25 MG-69 MG CAPSULE, EXTENDED RELEASE 2. Inflammatory polyarthropathy (HCC) - ICD9: 714.9, ICD10: M06.4 rx refilled, f/u in 2-3 months, continue good exercise and eating habits. - QSYMIA 11.25 MG-69 MG CAPSULE, EXTENDED RELEASE 3. Obesity, Class I, BMI 30-34.9 - ICD9: 278.00, ICD10: E66.9 Stable - Behavioral intervention, - Pharmacological intervention, - Eat well program, and - Continue current medications - QSYMIA 11.25 MG-69 MG CAPSULE, EXTENDED RELEASE 4. Hot flashes - ICD9: 782.62, ICD10: R23.2 Recheck labs. - TSH BLD - T4 FREE/FREE THYROX - T3 FREE BLD - TESTOSTERONE, FREE AND TOTAL - PROGESTERONE BLD 5. Bilateral leg edema - ICD9: 782.3, ICD10: R60.0 stable Hilton Alcaraz DO Return if no improvement. Follow up with Hilton Alcaraz DO. To ER if develops chest pain, shortness of breath Discussed risks, benefits, alternatives, and potential side effects of medications. Patient/Guardian expressed understanding and agreed with the plan. See patient instructions. Hilton Alcaraz DO (more content not included)... [facility] 10-28-2022 History of Present illness Narrative CC: Jesusita Caal is a 42 year old female who presents to the office for follow up HPI: Obesity, weight is continuing to improve, now weighing 196 lbs today in the office. Is trying to continue a very healthy diet with smaller portions, increased proteins and healthy fats intake, increased green vegetables and healthy fresh fruits and limiting her simple carbohydrates. She was consistently exercising by getting at least 10,000 steps per day and has started a work out routine at her home with an exercise bike which she is enjoying. Tolerating the Qsymia medication well. She has had a lot of recent stress since last in the office 3 months ago. She is now working for [employer] and quit her previous job due to stressors with the work environment and not feeling appreciated and listened to. She is adjusting to her new job and feels that she has had some difficulty figuring out her new routine with eating etc since she is doing this new job but is enjoying it Leg edema has improved, hasn't had to take her diuretic recently HPL, making diet changes as above and weight loss. Undifferentiated connective tissue disease, sicca syndrome, Inflammatory arthropathy, taking Plaquenil, will be following up with her Resident Care Technician. PAST MEDICAL HISTORY Diagnosis Date MAXIM positive 09/2014 Inflammatory polyarthropathy (HCC) Kidney stone with stent Raynaud's disease PAST SURGICAL HISTORY Procedure Laterality Date D&C (MISSED AB 1ST TRIMESTER) 2001 ESWL Right 05/08/2017 EXTRACTION, ERUPTED TOOTH OR EXPOSED ROOT (ELEVATION AND/OR FORCEPS REMOVAL) GALLBLADDER/EF TUBAL LIGATION HX 2006 Current Outpatient Medications Medication Sig hydrOXYchloroQUINE (PLAQUENIL) 200 mg tablet Take 1 tablet by mouth once daily. amLODIPine (NORVASC) 5 mg tablet Take 1 tablet by mouth once daily. chlorthalidone (HYGROTON) 25 mg tablet Take 1 tablet by mouth once daily. As needed for edema metroNIDAZOLE (METROGEL) 1 % Topical Gel Apply 1 application to affected area once daily. Location: rosacea buPROPion (WELLBUTRIN) 75 mg tablet Take 1 tablets PO by mouth in the morning naproxen (NAPROSYN) 500 mg tablet Take 1 tablet by mouth twice daily as needed (for pain/inflammation). Take with food. levonorgestrel (MIRENA) 20 mcg/24 hours (5 yrs) 52 mg IUD 1 Each by INTRAUTERINE route as directed. Cholecalciferol, Vitamin D3, 2,000 unit cap Take 2 tablets by mouth once daily. phentermine-topiramate ER (QSYMIA) 11.25-69 mg 24 Hr Capsule Take 1 capsule by mouth once daily for 90 days. BMI 30 furosemide (LASIX) 20 mg tablet Take 0.5-1 tablets by mouth daily with breakfast. No current facility-administered medications for this visit. ALLERGIES Allergen Reactions Penicillins Unknown Social History Tobacco Use Smoking status: Never Smokeless tobacco: Never Vaping Use Vaping Use: Never used Substance Use Topics Alcohol use: Yes Comment: occ Drug use: No ROS: See HPI. PE: BP 136/80 Pulse 72 Temp (Src) 97 (Left Tympanic) Resp 16 Wt 196 lb (88.9kg) LMP 12/29/2020 Gen: A&OX3, NAD, non-toxic appearing HEENT: PERRLA, EOMs intact b/l, nares without drainage, pharynx without erythema, exudate, lesions, or drainage. Uvula midline. Neck: No LAD, no thyromegaly, no meningismus. CV: RRR, no murmur Lungs: CTA b/l, no wheezing Skin: No rashes, lesions, or wounds on exposed skin. No edema, normal pulses Inflammatory arthritis changes in hands and feet ASSESSMENT/PLAN: 1. Dyslipidemia - ICD9: 272.4, ICD10: E78.5 (primary diagnosis) - suboptimal control - Encouraged following a low fat, low cholesterol diet. - Discussed the benefits of regular aerobic exercise and weight loss. - QSYMIA 11.25 MG-69 MG CAPSULE, EXTENDED RELEASE 2. Inflammatory polyarthropathy (HCC) - ICD9: 714.9, ICD10: M06.4 rx refilled, f/u in 2-3 months, continue good exercise and eating habits. - QSYMIA 11.25 MG-69 MG CAPSULE, EXTENDED RELEASE 3. Obesity, Class I, BMI 30-34.9 - ICD9: 278.00, ICD10: E66.9 Stable - Behavioral intervention, - Pharmacological intervention, - Eat well program, and - Continue current medications - QSYMIA 11.25 MG-69 MG CAPSULE, EXTENDED RELEASE 4. Hot flashes - ICD9: 782.62, ICD10: R23.2 Recheck labs. - TSH BLD - T4 FREE/FREE THYROX - T3 FREE BLD - TESTOSTERONE, FREE AND TOTAL - PROGESTERONE BLD 5. Bilateral leg edema - ICD9: 782.3, ICD10: R60.0 stable Hilton Alcaraz DO Return if no improvement. Follow up with Hilton Alcaraz DO. To ER if develops chest pain, shortness of breath Discussed risks, benefits, alternatives, and potential side effects of medications. Patient/Guardian expressed understanding and agreed with the plan. See patient instructions. Hilton Alcaraz DO [address] [place] [address] documented in this encounter [facility] 10-24-2022 Instructions Hilton Alcaraz DO - 10/24/2022 12:17 PM EDT Magnesium supplement at supper 400-500 mg Can consider doing magnesium glycinate, magnesium gluconate supplement for the kind of magnesium documented in this encounter [facility] 10-09-2022 Miscellaneous Notes Patient scheduled Lois Please make patient follow up appt with me on 10/15 (Thursday) at 720 pm, she is aware of appt time and date Hilton Alcaraz DO documented in this encounter [facility] 08-28-2022 Note HNO ID: [id number] Author: Priscilla Junior MD Service: ? Author Type: Physician Type: Progress Notes Filed: 08/28/2022 12:47 PM Note Text: Rheumatology FOLLOW UP VISIT Date of Service: 08/28/2022 Patient: Jesusita Caal Medical Record: [id number] Primary Care Physician: Hilton Alcaraz DO Last Rheumatology visit: 02/01/2021 (with Dmitri Rao) Chief Complaint: New Patient INTERVAL HISTORY Jesusita Caal is a 42 year old White female with a history of dyslipidemia, varicose veins, vitamin D deficiency, rosacea, lower extremity edema who presents rheumatology clinic for follow-up of inflammatory arthritis. Chart review reveals she establish care with Dr. Conner 01/2018 for inflammatory polyarthralgias of the fingers, positive MAXIM, Raynaud's, and heat sensitive facial rash. 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 She has been maintained on hydroxychloroquine since that time. Today she presents to clinic alone. She states that her joints are overall doing well. Her biggest ongoing issue are her fingers from her Raynaud's. They are almost constantly purple. She gets a tight feeling in them and a discomfort. She notes inability to feel scalding hot temperatures in her fingers. She uses fingerless gloves intermittently and tries to do layers all of the time. She has never had digital ulcerations and has never been on medication for her Raynaud's. She notes swelling above her eyes and that she had a rash or dryness over the area recently at some point. She has never seen dermatology. She continues to have the rash over her face that flushes and gets worse with heat, alcohol, and stress. No other rashes. Rheumatologic review of systems notable for fatigue at the end of the day, dry eyes using drops intermittently, dry mouth. She otherwise denies fevers, unintentional weight loss, night sweats, history of uveitis, sores in her nose or mouth, photosensitivity, cough, congestion, chest pain, shortness of breath, pleurisy, nausea, vomiting, abdominal pain, constipation, diarrhea, blood in her urine or stool, red hot swollen joints. She has had no ongoing issues in her knees. RHEUMATOLOGIC HISTORY She is currently taking hydroxychloroquine sulfate, naproxen. Jesusita is both RF - 9 (02/05/2018) and CCP - 13.5 (02/05/2018) negative. Her most recent MAXIM was negative (02/05/2018). HISTORY OF PRESENT ILLNESS 1. 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 Facial rash, likely rosacea although has never seen dermatology Work-up: Negative MAXIM 01/2018 Normal C3, C4 Negative RF Negative CCP Negative dsDNA Negative GUSTAVO 01/2018 x-rays hands and knees: Normal hands, small effusion of right knee Treatment: Hydroxychloroquine 200 mg, previously on twice daily, switch to once daily 08/2022 per patient request Amlodipine initiated 08/2022 Pain Evaluation Pain Evaluation 12/18/2015 07/18/2016 08/11/2016 09/11/2017 06/23/2019 Pain Score 6 1 3 6 6 Location Knee-Left Leg-Left Leg-Left Knee-Right Throat Description Sore;Aching;Pressure Aching Sore;Other: See comment Aching;Pressure;Radiating Sore Duration (#) 1 - (No Data) 1 3 Duration (Timeframe) Months Unknown - Weeks Days Frequency Intermittent Intermittent Intermittent Continuous Continuous Intervention - Reposition;Relaxation - Medication;Reposition;Cold Medication PATIENT-ENTERED DATA PROMIS Assessments PROMIS Assessments 02/05/2018 08/11/2018 08/27/2022 Physical Health Percentile 22.06 % 10.38 % 41 % Mental Health Percentile 25.78 % 13.14 % 26 % Pain Score 4 4 4 Pain Interference Percentile - - 14 % Fatigue Percentile - - 18 % Physical Function Percentile - - 42 % RAPID 3 [place] Activities of Daily Living 08/27/2022 11:12 PM Dress self? Get in and out of bed? Without ANY difficulty Walk outdoors? Without ANY difficulty Wash and dry body? Without ANY difficulty Get in and out of car? Without ANY difficulty RAPID 3 Disease Activity Weighed Score Levels: 0 - 1: Near Remission 1.3 - 2.0: Low Severity 2.3 - 4.0: Moderate Severity 4.3 - 10.0: High Severity RAPID-3 Weighed Score 02/05/2018 08/11/2018 08/27/2022 RAPID 3 Weighed Score 1.9 3 - RAPID 3 Weighed Score - - Incomplete Review of Systems CONSTITUTION: Positive for: Recent weight change Negative for: Fever HEENT: Positive for: Dry mouth Negative for: Nosebleeds, Mouth sores and Trouble swallowing RESPIRATORY: Negative for: Cough, Shortness of breath and Pain with breathing GASTROINTESTINAL: Negative for: Melena, Diarrhea, Heartburn and Abdominal pain MUSCULOSKELETAL: Positive for: Joint swelling and Morning Joint Stiffness Negative for: Arthralgias, Myalgias and Muscle weakness NEUROLOGICAL: Positive for: Numbness Negative for: Headaches and Memory los (more content not included)... [facility] 08-28-2022 Instructions Priscilla Junior MD - 08/28/2022 12:25 PM EST Labs for a full workup anytime START amlodipine 5 mg once a day Let me know if you get light headed or dizzy, it could be decreasing your blood pressure Continue with gloves, may need to wear them all the time and slip in a hand warmer in them Decrease plaquenil to 1 pill a day Follow up in 6 months documented in this encounter [facility] 08-28-2022 History of Present illness Narrative Images from the original note were not included. Rheumatology FOLLOW UP VISIT Date of Service: 08/28/2022 Patient: Jesusita Caal Medical Record: [id number] Primary Care Physician: Hilton Alcaraz DO Last Rheumatology visit: 02/01/2021 (with Dmitri Rao) Chief Complaint: New Patient INTERVAL HISTORY Jesusita Caal is a 42 year old White female with a history of dyslipidemia, varicose veins, vitamin D deficiency, rosacea, lower extremity edema who presents rheumatology clinic for follow-up of inflammatory arthritis. Chart review reveals she establish care with Dr. Conner 01/2018 for inflammatory polyarthralgias of the fingers, positive MAXIM, Raynaud's, and heat sensitive facial rash. 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 She has been maintained on hydroxychloroquine since that time. Today she presents to clinic alone. She states that her joints are overall doing well. Her biggest ongoing issue are her fingers from her Raynaud's. They are almost constantly purple. She gets a tight feeling in them and a discomfort. She notes inability to feel scalding hot temperatures in her fingers. She uses fingerless gloves intermittently and tries to do layers all of the time. She has never had digital ulcerations and has never been on medication for her Raynaud's. She notes swelling above her eyes and that she had a rash or dryness over the area recently at some point. She has never seen dermatology. She continues to have the rash over her face that flushes and gets worse with heat, alcohol, and stress. No other rashes. Rheumatologic review of systems notable for fatigue at the end of the day, dry eyes using drops intermittently, dry mouth. She otherwise denies fevers, unintentional weight loss, night sweats, history of uveitis, sores in her nose or mouth, photosensitivity, cough, congestion, chest pain, shortness of breath, pleurisy, nausea, vomiting, abdominal pain, constipation, diarrhea, blood in her urine or stool, red hot swollen joints. She has had no ongoing issues in her knees. RHEUMATOLOGIC HISTORY She is currently taking hydroxychloroquine sulfate, naproxen. Jesusita is both RF - 9 (02/05/2018) and CCP - 13.5 (02/05/2018) negative. Her most recent MAXIM was negative (02/05/2018). HISTORY OF PRESENT ILLNESS 1. 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 Facial rash, likely rosacea although has never seen dermatology Work-up: Negative MAXIM 01/2018 Normal C3, C4 Negative RF Negative CCP Negative dsDNA Negative GUSTAVO 01/2018 x-rays hands and knees: Normal hands, small effusion of right knee Treatment: Hydroxychloroquine 200 mg, previously on twice daily, switch to once daily 08/2022 per patient request Amlodipine initiated 08/2022 Pain Evaluation Pain Evaluation 12/18/2015 07/18/2016 08/11/2016 09/11/2017 06/23/2019 Pain Score 6 1 3 6 6 Location Knee-Left Leg-Left Leg-Left Knee-Right Throat Description Sore;Aching;Pressure Aching Sore;Other: See comment Aching;Pressure;Radiating Sore Duration (#) 1 - (No Data) 1 3 Duration (Timeframe) Months Unknown - Weeks Days Frequency Intermittent Intermittent Intermittent Continuous Continuous Intervention - Reposition;Relaxation - Medication;Reposition;Cold Medication PATIENT-ENTERED DATA PROMIS Assessments PROMIS Assessments 02/05/2018 08/11/2018 08/27/2022 Physical Health Percentile 22.06 % 10.38 % 41 % Mental Health Percentile 25.78 % 13.14 % 26 % Pain Score 4 4 4 Pain Interference Percentile - - 14 % Fatigue Percentile - - 18 % Physical Function Percentile - - 42 % RAPID 3 [place] Activities of Daily Living 08/27/2022 11:12 PM Dress self? Get in and out of bed? Without ANY difficulty Walk outdoors? Without ANY difficulty Wash and dry body? Without ANY difficulty Get in and out of car? Without ANY difficulty RAPID 3 Disease Activity Weighed Score Levels: 0 - 1: Near Remission 1.3 - 2.0: Low Severity 2.3 - 4.0: Moderate Severity 4.3 - 10.0: High Severity RAPID-3 Weighed Score 02/05/2018 08/11/2018 08/27/2022 RAPID 3 Weighed Score 1.9 3 - RAPID 3 Weighed Score - - Incomplete Review of Systems CONSTITUTION: Positive for: Recent weight change Negative for: Fever HEENT: Positive for: Dry mouth Negative for: Nosebleeds, Mouth sores and Trouble swallowing RESPIRATORY: Negative for: Cough, Shortness of breath and Pain with breathing GASTROINTESTINAL: Negative for: Melena, Diarrhea, Heartburn and Abdominal pain MUSCULOSKELETAL: Positive for: Joint swelling and Morning Joint Stiffness Negative for: Arthralgias, Myalgias and Muscle weakness NEUROLOGICAL: Positive for: Numbness Negative for: Headaches and Memory loss SKIN: Positive for: Rash and Nail changes Negative for: Hair loss EYES: Positive for: Eye dryness Negative for: Eye pain, Eye redness and visual disturbance CARDIOVASCULAR: Negative for: Chest pain and Leg swelling GENITOURINARY: Negative for: Dysuria and Hematuria HEMATOLOGIC/LYMPHATIC: Negative for: Swollen glands REVIEW OF SYSTEMS Complete ROS (HEENT, respiratory, cardiology, GI, , skin, psych, hematology, endocrine, neuro, musculoskeletal) negativee except as noted in HPI. HISTORIES Past medical, surgical, family, and social history reviewed and notable changes since last visit include: Noted in HPI MEDICATIONS Current Outpatient Medications Medication Sig phentermine-topiramate ER (QSYMIA) 11.25-69 mg 24 Hr Capsule Take 1 capsule by mouth once daily for 90 days. BMI 30 chlorthalidone (HYGROTON) 25 mg tablet Take 1 tablet by mouth once daily. As needed for edema metroNIDAZOLE (METROGEL) 1 % Topical Gel Apply 1 application to affected area once daily. Location: rosacea buPROPion (WELLBUTRIN) 75 mg tablet Take 1 tablets PO by mouth in the morning buPROPion (WELLBUTRIN) 75 mg tablet Take 2 tablets (150mg) by mouth in the morning, take 1 tablet (75mg) by mouth in the evening levonorgestrel (MIRENA) 20 mcg/24 hours (5 yrs) 52 mg IUD 1 Each by INTRAUTERINE route as directed. Cholecalciferol, Vitamin D3, 2,000 unit cap Take 2 tablets by mouth once daily. hydrOXYchloroQUINE (PLAQUENIL) 200 mg tablet Take 1 tablet by mouth once daily. amLODIPine (NORVASC) 5 mg tablet Take 1 tablet by mouth once daily. naproxen (NAPROSYN) 500 mg tablet Take 1 tablet by mouth twice daily as needed (for pain/inflammation). Take with food. (Patient not taking: Reported on 08/28/2022) furosemide (LASIX) 20 mg tablet Take 0.5-1 tablets by mouth daily with breakfast. (Patient not taking: Reported on 08/28/2022) Last Ophthalmology Check for Plaquenil (Hydroxychloroquine) Last OCT Macula Exam No resulted procedures found. Last Visual Field Exam No resulted procedures found. ALLERGIES ALLERGIES Allergen Reactions Penicillins Unknown PHYSICAL EXAM VITAL SIGNS: BP 118/75 Pulse 61 Temp (Src) 97.6 (Oral) Ht 5' 7 (1.70m) Wt 194 lb (88.0kg) LMP 12/29/2020 BMI 30.38 kg/(m^2). GENERAL: Alert and oriented, appears a stated age. In no acute distress. EYES: PERRL, EOMI, anicteric sclerae, no conjunctival injection HENT: Normal external examination of the ears and nose, lips, oropharynx and tongue. No oropharyngeal lesions or exudate. No oral or nasal sores. Dry oral mucosa. Full set of top dentures in place. NECK: No mass or asymmetry. No lymphadenopathy RESPIRATORY: Normal respiratory effort. Clear to auscultation bilaterally CARDIOVASCULAR: Regular in rate and rhythm without murmurs, rubs, or gallops ABDOMEN: Soft, nontender, nondistended NEUROLOGIC: No gross focal neurologic deficits. Cranial nerves II-XII grossly intact. SKIN: No thickening, nodules, discoloration. Normal nails. Abnormal nailfold capillaries with dilated loops and dropout. Bright red facial rash appears more rosacea than malar. Active purple discoloration on right more than left fingers with cool to touch. Varicose veins on legs. MSK: Normal range of motion, no deformities, no swelling, and no tenderness in the hands, wrists, elbows, shoulders, spine, hips, knees, ankles, feet except as noted below: Nontender with no evidence of dactylitis, enthesitis, synovitis, tendinitis LABS Reviewed in [facility], notable for: CBC Latest Ref Rng & Units 07/16/2019 02/01/2021 04/16/2021 01/18/2022 WBC 3.70 - 11.00 k/uL 5.62 6.11 5.06 6.29 HEMOGLOBIN 11.5 - 15.5 g/dL 12.7 13.1 13.9 14.5 HEMATOCRIT 36.0 - 46.0 % 39.7 39.7 42.6 43.8 PLATELETS 150 - 400 k/uL 262 222 249 288 ABS NEUT (ANC) 1.45 - 7.50 k/uL 3.35 4.03 3.00 - ABS LYMPH 1.00 - 4.00 k/uL 1.61 1.31 1.51 - CMP Latest Ref Rng & Units 07/16/2019 02/01/2021 04/16/2021 01/18/2022 SODIUM 136 - 144 mmol/L 138 - 134(L) 138 POTASSIUM 3.7 - 5.1 mmol/L 3.9 - 3.4(L) 3.1(L) CHLORIDE 97 - 105 mmol/L 102 - 95(L) 98 CO2 22 - 30 mmol/L 26 - 29 28 GLUCOSE 74 - 99 mg/dL 92 - 89 91 BUN 7 - 21 mg/dL 11 - 14 16 CREATININE 0.58 - 0.96 mg/dL 0.78 0.78 0.90 0.90 CALCIUM, TOTAL 8.5 - 10.2 mg/dL 9.3 - 10.1 10.0 AST 13 - 35 U/L 16 15 19 21 ALT 7 - 38 U/L 14 15 18 16 ALKALINE PHOSPHATASE 34 - 123 U/L 87 - 102 90 ESR, WSR Latest Ref Rng & Units 02/05/2018 02/01/2021 WSR 0 - 20 mm/hr 26(H) 26(H) CRP Latest Ref Rng & Units 02/05/2018 07/16/2019 02/01/2021 04/16/2021 CRP <0.9 mg/dL 0.7 0.6 1.4(H) 0.9(H) C3, C4 Latest Ref Rng & Units 02/05/2018 C3 86 - 166 mg/dL 150 C4 13 - 46 mg/dL 35 RF and CCP Latest Ref Rng & Units 02/05/2018 RHEUMATOID FACTOR <16 IU/mL <10 CCP ANTIBODY, IGG <20 Units <15 Hepatitis Screen Latest Ref Rng & Units 02/05/2018 HEPBCOTOL Negative Negative HEPSABQ Negative Negative HEPCABEIA Negative Negative HBSAGR Negative Negative TB Screen Latest Ref Rng & Units 04/28/2016 TBGINT - No evidence of current or previous infection with Mycobacterium tuberculosis. TBGRES Negative Negative Antibodies Latest Ref Rng & Units 09/19/2015 02/05/2018 MAIXM Negative - Negative MAXIM TITER Negative - Negative MAXIM PATTERN - - Not applicable for negative result. DNA ANTIBODY W/CONFIRMATION <30 IU/mL - <12 LOOM TUNER ANTIBODY <1.0 AI - 0.2 SSA ANTIBODY <1.0 AI - <0.2 SSB ANTIBODY <1.0 AI - 0.5 SEAN-1 ANTIBODY, IGG <1.0 AI - <0.2 RIBOSOMAL LOOM TUNER <1.0 AI - <0.2 SM ANTIBODY <1.0 AI - <0.2 SCLERODERMA AB, IGG <1.0 AI - <0.2 CENTROMERE AB <1.0 AI - <0.2 CHROMATIN ANTIBODY <1.0 AI - <0.2 PT SEC 8.4 - 13.0 sec 10.8 - PT INR 0.8 - 1.2 1.0 - PTT 23.0 - 32.4 sec 30.0 - HEX PHASE SCREEN 48.9 - 70.2 sec 56.2 - HEX PHASE CONFIRM 45.1 - 64.1 sec 51.1 - HEX PHASE DELTA <9.0 delta sec 5.1 - CARDIOLIPIN AB, IGG 0 - 9 GPL 13(H) - CARDIOLIPIN AB, IGM 0 - 11 MPL <9 - CARDIOLIPIN AB, IGA 0 - 11 APL <9 - Urinalysis Latest Ref Rng & Units 04/13/2015 02/04/2017 02/05/2018 03/15/2020 PROTEIN, URINE Negative mg/dL neg Negative Negative - PROTEIN UA (POCT) Negative mg/dL - - - Negative RBC, URINE 0 - 3 /HPF - 0-3 0-3 - PROTEIN/CREATININE RATIO <0.2 - - 0.1 - IMAGING Reviewed in Epic, notable for: No new imaging ASSESSMENT Jesusita Caal is a 42 year old White female with a history of dyslipidemia, varicose veins, vitamin D deficiency, rosacea, lower extremity edema who presents rheumatology clinic for follow-up of inflammatory arthritis. Today she is presenting with historical MAXIM positivity, historical inflammatory arthritis, active Raynaud's, dry eye, dry mouth with dental disease causing loss of the majority of her teeth, facial rash, subjective puffiness above her eyes, subjective previous nonactive rash on her eyelids consistent with undifferentiated connective tissue disease. There is concern for Sjogren's given her severe dryness so we will do thorough serologic evaluation for Sjogren's which has not yet been done as well as repeating MAXIM. I will also check polymyositis dermatomyositis panel given history of rash around her eyes and Raynaud's which can be seen in antisynthetase syndrome. At this time her inflammatory arthritis is under great control as is her knee pain. She would like to try a lower dose of hydroxychloroquine due to weight loss and joints feeling better. Regarding her Raynaud's which is her biggest ongoing issue, we discussed aggressive behavioral management with gloves all the time, hand warmers versus medication. She is agreeable to initiation of amlodipine, will start with 5 mg daily. Discussed risks including lightheadedness, dizziness particularly as she is already on chlorthalidone. She is still willing to try this medicine. IMPRESSIONS Diagnoses: (M35.9) Undifferentiated connective tissue disease (HCC) (primary encounter diagnosis) (M19.90) Inflammatory arthritis (Z79.899) Encounter for long-term (current) use of medications (R21) Facial rash (M35.00) Sicca syndrome (HCC) PLAN 1. Labs anytime 2. Start amlodipine 5 mg once a day 3. Aggressive behavioral management for Raynaud's including gloves all the time, hand warmers, layers 4. She may need trial of gabapentin as I suspect she is developing neuropathy in her fingers from her Raynaud's 5. Decrease hydroxychloroquine to 200 mg once a day 6. If Sjogren's evaluation negative, will discuss secondary evaluation at next visit 7. Dermatology referral in the future when she is ready 8. Follow-up 6 months, okay to be virtual Orders this visit: Office Visit on 08/28/22 C-REACTIVE PROTEIN (CRP) SED RATE WESTERGREN COMP METABOLIC PANEL CBC + DIFF ANTI-CENTROMERE AB PM-SCL ANTIBODY SCLERODERMA IGG AB RNA POLYMERASE III AB TH/TO ANTIBODY U3RNP FIBRILLARIN AB POLYMYOSITIS AND DERMATOMYOSITIS PANEL MAXIM BY IFA WITH REFLEX PROTEIN ELECT RND UR W/INTERP PROTEIN CREATININE RATIO URINALYSIS WITH MICROSCOPIC, REFLEX CULTURE KAPPA/DIEGO,FREE,SER PROTEIN ELECTROPHORESIS SERUM W/INTERP C4 COMPLEMENT BLD C3 COMPLEMENT BLD RHEUMATOID FACTOR BL IMMUNOFIXATION SCREEN, SERUM MONOCLONAL PROT UR W/INTERP CK CREATINE KINASE ALDOLASE BLD LD LACTATE DEHYDRO hydrOXYchloroQUINE (PLAQUENIL) 200 mg tablet amLODIPine (NORVASC) 5 mg tablet Return in about 6 months (around 02/25/2023). I spent a total of 56 minutes on the date of the service which included preparing to see the patient, [id number] patient care, completing clinical documentation, obtaining and/or reviewing separately obtained history, performing a medically appropriate examination, counseling and educating the patient/family/caregiver, and ordering medications, tests, or procedures. This note was partially generated with the assistance of [employer] voice recognition software. An attempt was made to correct any dictation errors however there may be some incorrect words, spellings, and punctuation. Priscilla Junior MD Rheumatology Date: August 28, 2022 Time: 11:59 AM documented in this encounter [facility] 07-30-2022 Miscellaneous Notes Pt. informed via My Chart. Please inform patient that rx was sent to other pharmacy as requested as below Hilton Alcaraz DO The following approved medication requests have been transmitted electronically. Requested Prescriptions Signed Prescriptions Disp Refills phentermine-topiramate ER (QSYMIA) 11.25-69 mg 24 Hr Capsule 90 capsule 0 Sig: Take 1 capsule by mouth once daily for 90 days. BMI 30 Authorizing Provider: HILTON ALCARAZ DO Images from the original note were not included. IntroBridge message turned into TE. Jesusita Caal [facility]str [facility] My Chart Rx Pool (supporting Hilton Alcaraz DO) 13 hours ago (9:45 PM) KH The nurse gave me paper copy I have been busy and didn t realize it I just thought it was my print summary and med for face I need qsymia to be mail home delivery order please I sent them request to send to you I get better rate going through them directly. Thank you so much . Jesusita Pended medication. Pharmacy verified. Dasia Pedroza MA documented in this encounter [facility] 07-29-2022 Miscellaneous Notes message turned into TE. Dasia Pedroza MA documented in this encounter [facility] 07-23-2022 Note HNO ID: [id number] Author: Hilton Alcaraz, DO Service: ? Author Type: Physician Type: Progress Notes Filed: 07/23/2022 8:49 PM Note Text: CC: Jesusita Caal is a 42 year old female who presents to the office for follow up HPI: Obesity, weight is continuing to improve, now weighing 193 lbs today in the office. Is trying to continue a very healthy diet with smaller portions, increased proteins and healthy fats intake, increased green vegetables and healthy fresh fruits and limiting her simple carbohydrates. She is exercising by getting at least 10,000 steps per day and has started a work out routine at her home with an exercise bike which she is enjoying. 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 Is trying to determine if she will stay in this job position or try something different. Tolerating the Qsymia medication well Leg edema has improved, hasn't had to take her diuretic recently HPL, making diet changes as above and weight loss. Inflammatory arthropathy, taking Plaquenil, will be following up with her Resident Care Technician. PAST MEDICAL HISTORY Diagnosis Date MAXIM positive 09/2014 Inflammatory polyarthropathy (HCC) Kidney stone with stent Raynaud's disease PAST SURGICAL HISTORY Procedure Laterality Date DANDC (MISSED AB 1ST TRIMESTER) 2001 ESWL Right 05/08/2017 EXTRACTION, ERUPTED TOOTH OR EXPOSED ROOT (ELEVATION AND/OR FORCEPS REMOVAL) GALLBLADDER/EF TUBAL LIGATION HX 2006 Social History: Social History Tobacco Use Smoking status: Never Smokeless tobacco: Never Vaping Use Vaping Use: Never used Substance Use Topics Alcohol use: Yes Comment: occ Drug use: No FAMILY HISTORY Problem Relation Age of Onset Alcohol/Drug Father Breast Cancer Maternal Grandmother Hypertension Maternal Grandmother Cancer Paternal Grandmother Breast Cancer Paternal Aunt x2 Cancer Paternal Aunt bone Current Outpatient prescriptions: hydrOXYchloroQUINE (PLAQUENIL) 200 mg tablet Take 1 tablet by mouth twice daily. buPROPion (WELLBUTRIN) 75 mg tablet Take 1 tablets PO by mouth in the morning buPROPion (WELLBUTRIN) 75 mg tablet Take 2 tablets (150mg) by mouth in the morning, take 1 tablet (75mg) by mouth in the evening naproxen (NAPROSYN) 500 mg tablet Take 1 tablet by mouth twice daily as needed (for pain/inflammation). Take with food. levonorgestrel (MIRENA) 20 mcg/24 hours (5 yrs) 52 mg IUD 1 Each by INTRAUTERINE route as directed. Cholecalciferol, Vitamin D3, 2,000 unit cap Take 2 tablets by mouth once daily. chlorthalidone (HYGROTON) 25 mg tablet Take 1 tablet by mouth once daily. As needed for edema metroNIDAZOLE (METROGEL) 1 % Topical Gel Apply 1 application to affected area once daily. Location: rosacea phentermine-topiramate ER (QSYMIA) 11.25-69 mg 24 Hr Capsule Take 1 capsule by mouth once daily for 90 days. BMI 30 furosemide (LASIX) 20 mg tablet Take 0.5-1 tablets by mouth daily with breakfast. Allergies: ALLERGIES Allergen Reactions Penicillins Unknown ROS: See HPI PE: 07/23/22 1841 BP: 120/80 Pulse: 76 Resp: 12 Temp: 36.4 ?C (97.6 ?F) TempSrc: Left Tympanic Weight: 87.5 kg (193 lb) Gen: AANDO, NAD, non-toxic appearing, Pleasant, cooperative HEENT: NT/AC, PERRLA, EOMs intact b/l, nares clear and patent b/l, pharynx without erythema, exudate or lesions. Uvula midline. Neck: supple, No cervical LAD, no thyromegaly, no carotid bruits CV: RRR, normal S1 and S2, no murmurs, no gallops, no rubs, Pulses 2+ and symmetric in UE and LE b/l Lungs: normal respiratory effort, CTA b/l, no wheezing or rhonchi or rales MS: FROM all 4 extremities Neuro: CN II-XII intact b/l Skin: warm, dry, intact, No rashes or lesions on exposed skin. No edema, normal pulses ASSESSMENT/PLAN: 1. Dyslipidemia - ICD9: 272.4, ICD10: E78.5 (primary diagnosis) - suboptimal control - Continue current medication. - Encouraged following a low fat, low cholesterol diet. - Discussed the benefits of regular aerobic exercise and weight loss. - QSYMIA 11.25 MG-69 MG CAPSULE, EXTENDED RELEASE 2. LIVIA (generalized anxiety disorder) - ICD9: 300.02, ICD10: F41.1 - stable 3. Inflammatory polyarthropathy (HCC) - ICD9: 714.9, ICD10: M06.4 - rx refilled, f/u with Resident Care Technician - QSYMIA 11.25 MG-69 MG CAPSULE, EXTENDED RELEASE 4. Obesity, Class I, BMI 30-34.9 - ICD9: 278.00, ICD10: E66.9 Weight decreasing - Behavioral intervention, - Pharmacological intervention, and - Continue current medications - QSYMIA 11.25 MG-69 MG CAPSULE, EXTENDED RELEASE 5. Rosacea - ICD9: 695.3, ICD10: L71.9 - rx as below - METRONIDAZOLE 1 % TOPICAL GEL 6. Bilateral leg edema - ICD9: 782.3, ICD10: R60.0 rx refilled, chronic - CHLORTHALIDONE 25 MG TABLET Tameka (more content not included)... [facility] 07-23-2022 History of Present illness Narrative CC: Jesusita Caal is a 42 year old female who presents to the office for follow up HPI: Obesity, weight is continuing to improve, now weighing 193 lbs today in the office. Is trying to continue a very healthy diet with smaller portions, increased proteins and healthy fats intake, increased green vegetables and healthy fresh fruits and limiting her simple carbohydrates. She is exercising by getting at least 10,000 steps per day and has started a work out routine at her home with an exercise bike which she is enjoying. 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 Is trying to determine if she will stay in this job position or try something different. Tolerating the Qsymia medication well Leg edema has improved, hasn't had to take her diuretic recently HPL, making diet changes as above and weight loss. Inflammatory arthropathy, taking Plaquenil, will be following up with her Resident Care Technician. PAST MEDICAL HISTORY Diagnosis Date MAXIM positive 09/2014 Inflammatory polyarthropathy (HCC) Kidney stone with stent Raynaud's disease PAST SURGICAL HISTORY Procedure Laterality Date D&C (MISSED AB 1ST TRIMESTER) 2001 ESWL Right 05/08/2017 EXTRACTION, ERUPTED TOOTH OR EXPOSED ROOT (ELEVATION AND/OR FORCEPS REMOVAL) GALLBLADDER/EF TUBAL LIGATION HX 2005 Social History: Social History Tobacco Use Smoking status: Never Smokeless tobacco: Never Vaping Use Vaping Use: Never used Substance Use Topics Alcohol use: Yes Comment: occ Drug use: No FAMILY HISTORY Problem Relation Age of Onset Alcohol/Drug Father Breast Cancer Maternal Grandmother Hypertension Maternal Grandmother Cancer Paternal Grandmother Breast Cancer Paternal Aunt x2 Cancer Paternal Aunt bone Current Outpatient prescriptions: hydrOXYchloroQUINE (PLAQUENIL) 200 mg tablet Take 1 tablet by mouth twice daily. buPROPion (WELLBUTRIN) 75 mg tablet Take 1 tablets PO by mouth in the morning buPROPion (WELLBUTRIN) 75 mg tablet Take 2 tablets (150mg) by mouth in the morning, take 1 tablet (75mg) by mouth in the evening naproxen (NAPROSYN) 500 mg tablet Take 1 tablet by mouth twice daily as needed (for pain/inflammation). Take with food. levonorgestrel (MIRENA) 20 mcg/24 hours (5 yrs) 52 mg IUD 1 Each by INTRAUTERINE route as directed. Cholecalciferol, Vitamin D3, 2,000 unit cap Take 2 tablets by mouth once daily. chlorthalidone (HYGROTON) 25 mg tablet Take 1 tablet by mouth once daily. As needed for edema metroNIDAZOLE (METROGEL) 1 % Topical Gel Apply 1 application to affected area once daily. Location: rosacea phentermine-topiramate ER (QSYMIA) 11.25-69 mg 24 Hr Capsule Take 1 capsule by mouth once daily for 90 days. BMI 30 furosemide (LASIX) 20 mg tablet Take 0.5-1 tablets by mouth daily with breakfast. Allergies: ALLERGIES Allergen Reactions Penicillins Unknown ROS: See HPI PE: 07/23/22 1841 BP: 120/80 Pulse: 76 Resp: 12 Temp: 36.4 C (97.6 F) TempSrc: Left Tympanic Weight: 87.5 kg (193 lb) Gen: A&O, NAD, non-toxic appearing, Pleasant, cooperative HEENT: NT/AC, PERRLA, EOMs intact b/l, nares clear and patent b/l, pharynx without erythema, exudate or lesions. Uvula midline. Neck: supple, No cervical LAD, no thyromegaly, no carotid bruits CV: RRR, normal S1 and S2, no murmurs, no gallops, no rubs, Pulses 2+ and symmetric in UE and LE b/l Lungs: normal respiratory effort, CTA b/l, no wheezing or rhonchi or rales MS: FROM all 4 extremities Neuro: CN II-XII intact b/l Skin: warm, dry, intact, No rashes or lesions on exposed skin. No edema, normal pulses ASSESSMENT/PLAN: 1. Dyslipidemia - ICD9: 272.4, ICD10: E78.5 (primary diagnosis) - suboptimal control - Continue current medication. - Encouraged following a low fat, low cholesterol diet. - Discussed the benefits of regular aerobic exercise and weight loss. - QSYMIA 11.25 MG-69 MG CAPSULE, EXTENDED RELEASE 2. LIVIA (generalized anxiety disorder) - ICD9: 300.02, ICD10: F41.1 - stable 3. Inflammatory polyarthropathy (HCC) - ICD9: 714.9, ICD10: M06.4 - rx refilled, f/u with Resident Care Technician - QSYMIA 11.25 MG-69 MG CAPSULE, EXTENDED RELEASE 4. Obesity, Class I, BMI 30-34.9 - ICD9: 278.00, ICD10: E66.9 Weight decreasing - Behavioral intervention, - Pharmacological intervention, and - Continue current medications - QSYMIA 11.25 MG-69 MG CAPSULE, EXTENDED RELEASE 5. Rosacea - ICD9: 695.3, ICD10: L71.9 - rx as below - METRONIDAZOLE 1 % TOPICAL GEL 6. Bilateral leg edema - ICD9: 782.3, ICD10: R60.0 rx refilled, chronic - CHLORTHALIDONE 25 MG TABLET Hilton Alcaraz DO To ER if develops chest pain, shortness of breath, or severe worsening of symptoms. Discussed risks, benefits, alternatives, and potential side effects of medications. Patient expressed understanding and agreed with the plan. Hilton Alcaraz DO [address] [place] [address] documented in this encounter [facility] 06-25-2022 Nurse Note PLQ eye exam done on 05/20/2022 at [facility]. No evidence of PLQ toxicity. Report sent for scanning. Edilia Salas MA documented in this encounter [facility] 05-20-2022 Miscellaneous Notes Last office visit: 04/23/22 F/u scheduled: 07/23/22 Ayde Antonio Ma documented in this encounter [facility] 04-23-2022 History of Present illness Narrative CC: Jesusita Caal is a 42 year old female who presents to the office for follow up HPI: Seen in office on 06/24/21 Obesity, starting weight 275 lbs at home, 1st month of adipex weight was 264 lbs down to 242 lbs, last month after 2nd month of adipex weight was 244 lbs. Currently 239 lbs (230 lbs in AM at home). She has 1-2 weeks more of adipex until rx is complete. Has been working with Network Coordinator specialist at [facility] in the Medical nutrition therapy department and feels she is benefitting from this. Working on weekly meal prep for work days and doing some weekly intermittent fasting as well which helps her appetite control/overeating desires. Feels her anxiety and self confidence is better with the weight loss and feeling less joint pains with the diet changes. She completed adipex and was started on Qsymia At OFFICE VISIT on 09/23/21 Obesity, weight is 221 lbs today, at home she weighs 215 lbs. She is working on continuing to change her diet with smaller portion sizes, increased vegetables and fruits and proteins. Trying to cut back on carbohydrates. Has lost 55 lbs today or more in the last 6 months. She is tolerating the Qsymia medication well. She is feeling much better. States her confidence and anxiety symptoms are also improving. She has met with Network Coordinator and she has been keeping track of food intake daily. She is also walking more for exercise and wants to be more diligent with the exercise as well. Is excited to see if this helps her inflammatory arthritis- is taking her medications per Dr. Conner Resident Care Technician She was continued on Qsymia with diet and exercise changes as well. At follow up on 01/20/22 Obesity, weight is continuing to improve, now weighing 198 lbs today in the office. Is trying to continue a very healthy diet with smaller portions, increased proteins and healthy fats intake, increased green vegetables and healthy fresh fruits and limiting her simple carbohydrates. She is exercising by getting at least 10,000 steps per day. 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 She is enjoying this job position despite the stress associated with it. Tolerating the Qsymia medication well Leg edema has improved, hasn't had to take her diuretic recently HPL, making diet changes as above and weight loss. Currently Obesity, weight is continuing to improve, now weighing 191 lbs today in the office. Is trying to continue a very healthy diet with smaller portions, increased proteins and healthy fats intake, increased green vegetables and healthy fresh fruits and limiting her simple carbohydrates. She is exercising by getting at least 10,000 steps per day and has started a work out routine at her home with an exercise bike which she is enjoying. 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 Is trying to determine if she will stay in this job position or try something different. Tolerating the Qsymia medication well PAST MEDICAL HISTORY Diagnosis Date MAXIM positive 09/2014 Inflammatory polyarthropathy (HCC) Kidney stone with stent Raynaud's disease PAST SURGICAL HISTORY Procedure Laterality Date D&C (MISSED AB 1ST TRIMESTER) 2001 ESWL Right 05/08/2017 EXTRACTION, ERUPTED TOOTH OR EXPOSED ROOT (ELEVATION AND/OR FORCEPS REMOVAL) GALLBLADDER/EF TUBAL LIGATION HX 2006 Current Outpatient Medications Medication Sig chlorthalidone (HYGROTON) 25 mg tablet Take 1 tablet by mouth once daily. As needed for edema hydrOXYchloroQUINE (PLAQUENIL) 200 mg tablet Take 1 tablet by mouth twice daily buPROPion (WELLBUTRIN) 75 mg tablet Take 2 tablets (150mg) by mouth in the morning, take 1 tablet (75mg) by mouth in the evening naproxen (NAPROSYN) 500 mg tablet Take 1 tablet by mouth twice daily as needed (for pain/inflammation). Take with food. levonorgestrel (MIRENA) 20 mcg/24 hours (5 yrs) 52 mg IUD 1 Each by INTRAUTERINE route as directed. Cholecalciferol, Vitamin D3, 2,000 unit cap Take 2 tablets by mouth once daily. buPROPion (WELLBUTRIN) 75 mg tablet Take 1 tablets PO by mouth in the morning phentermine-topiramate ER (QSYMIA) 11.25-69 mg 24 Hr Capsule Take 1 capsule by mouth once daily for 90 days. BMI 30.37 furosemide (LASIX) 20 mg tablet Take 0.5-1 tablets by mouth daily with breakfast. No current facility-administered medications for this visit. ALLERGIES Allergen Reactions Penicillins Unknown Social History Tobacco Use Smoking status: Never Smokeless tobacco: Never Vaping Use Vaping Use: Never used Substance Use Topics Alcohol use: Yes Comment: occ Drug use: No ROS: See HPI PE: BP 120/70 Pulse 76 Temp (Src) 97.3 (Left Tympanic) Resp 16 Wt 191 lb (86.6kg) LMP 12/29/2020 Gen: A&OX3, NAD, non-toxic appearing HEENT: PERRLA, EOMs intact b/l, nares without drainage, pharynx without erythema, exudate, lesions, or drainage. Uvula midline. Neck: No LAD, no thyromegaly, no meningismus. CV: RRR, no murmur Lungs: CTA b/l, no wheezing Skin: No rashes, lesions, or wounds on exposed skin. ASSESSMENT/PLAN: 1. LIVIA (generalized anxiety disorder) - ICD9: 300.02, ICD10: F41.1 (primary diagnosis) Stable, has some current job and life stressors, can increase dose of wellbutrin in future if needed. - BUPROPION HCL 75 MG TABLET 2. Obesity, Class III, BMI 40-49.9 (morbid obesity) (HCC) - ICD9: 278.01, ICD10: E66.01 Weight decreasing - Behavioral intervention and - Pharmacological intervention - QSYMIA 11.25 MG-69 MG CAPSULE, EXTENDED RELEASE 3. Inflammatory polyarthropathy (HCC) - ICD9: 714.9, ICD10: M06.4 - f/u with Resident Care Technician, continue weight loss efforts. Hilton Alcaraz DO Return if no improvement. Follow up with Hilton Alcaraz DO. To ER if develops chest pain, shortness of breath Discussed risks, benefits, alternatives, and potential side effects of medications. Patient/Guardian expressed understanding and agreed with the plan. See patient instructions. Hilton Alcaraz DO [address] [place] [address] documented in this encounter [facility] 02-12-2022 History of Present illness Narrative Jesusita is a 42 year old who presents for an annual gynecologic exam with complaints, bleeding after SI - thinks related to IUD. Partner can feel strings and she is is now having some pain with it. Considering endometrial ablation as previouosly discussed with Dr Barker and having IUD removed. Has lost 70+ over past year and is feeling much better overall. Menses: menses every 28-30 days lasting 4-7 days of spotting to light flow. Spotting between menses. Has been having IUD Mirena 07/08/2019 for HMB Contraception: BTL HPV vaccine: No Last Pap: 01/04/2021 normal HPV: 01/04/2021 negative History of abnormal pap: No Last mammogram:07/01/2021 did not have additional imaging Abnormal mammogram: 2019 abnormal, 08/2020 - fibrocystic tissue right breast, short term follow-up for January 2021 Sexually active: Yes Patient concerns for STD exposure: No. Time with current partner: 8 years Pain with intercourse: No Postcoital bleeding: Yes - sometimes starts episode of spotting/bleeding/menses especially if menses is due or just finished Documentation from previous visit of 01/04/2021 was copied and pasted, documentation has been reviewed and edited as necessary for today's visit. OB History T2 L2 SAB1 IAB0 Ectopic0 Multiple0 Live Births0 Hvac Engineer History LMP: 12/29/2020, IUD Age at Menarche: Age at First : Age at Menopause: Hvac Engineer History Comments: Sexual Activity: Yes; Male; tubal Contraception: Surgical PAST MEDICAL HISTORY Diagnosis Date MAXIM positive 09/2014 Inflammatory polyarthropathy (HCC) Kidney stone with stent Raynaud's disease PAST SURGICAL HISTORY Procedure Laterality Date D&C (MISSED AB 1ST TRIMESTER) 2001 ESWL Right 05/08/2017 EXTRACTION, ERUPTED TOOTH OR EXPOSED ROOT (ELEVATION AND/OR FORCEPS REMOVAL) GALLBLADDER/EF TUBAL LIGATION HX 2006 FAMILY HISTORY Problem Relation Age of Onset Alcohol/Drug Father Breast Cancer Maternal Grandmother Hypertension Maternal Grandmother Cancer Paternal Grandmother Breast Cancer Paternal Aunt x2 Cancer Paternal Aunt bone SOCIAL HISTORY Social History Tobacco Use Smoking status: Never Smoker Smokeless tobacco: Never Used Vaping Use Vaping Use: Never used Substance Use Topics Alcohol use: Yes Comment: occ Drug use: No REVIEW OF SYSTEMS Abdomen: No abdominal pain, nausea, vomiting, diarrhea, or constipation. No bloating, early satiety, indigestion, or increased flatulence. Bladder: No dysuria, gross hematuria, urinary frequency, urinary urgency, or incontinence. Breast: No breast lumps, nipple d/c, overlying skin changes, redness or skin retraction. Allergies and current medication updated:Yes EXAM: BP 112/70 Ht 5' 6.5 (1.69m) Wt 197 lb 12.8 oz (89.7kg) LMP 12/29/2020 BMI 31.45 kg/(m^2). GENERAL: pleasant, female in no apparent distress HEENT: Normocephalic, atraumatic, mucus membranes moist and no lesions NECK: Supple, full range of motion, no adenopathy and thyroid normal DERMATOLOGY: Normal, without lesions, non-icteric and non-hirsute BREAST: soft, non-tender, symmetric, no dominant mass, normal nipple-areolar complex, no lymphadenopathy and no nipple discharge CHEST: Normal inspiratory effort ABDOMEN: soft, non-tender and no masses PELVIC: external genitalia normal, normal Bartholin's glands, urethra, Ranson's glands, no vulvar lesions, no cervical lesions, good vaginal support, small amount pale yellow discharge present, normal appearing perineal body and perianal region. IUD stings approximately 3 cm and curled in vault - unable to uncurl to trim. BIMANUAL: uterus normal size, shape and consistency, no adnexal masses and non-tender RECTOVAGINAL: deferred. NEURO: alert and oriented x3,exam grossly non-focal EXTREMITIES: normal ASSESSMENT/PLAN: 1) Health maintenance: Pap/HPV up to date. Mammogram up to date . Nutrition, exercise and routine health maintenance exams reviewed. HPV vaccine: completed series 2. Pain due to intrauterine contraceptive device (IUD), initial encounter (HCC) - ICD9: 996.76, 338.18, ICD10: T83.84XA - pt unsure if IUD is causing pain and partner says he can feel the IUD strings and it is uncomfortable - will US. Considering endometrial ablation. - PELVIC US WHI 3. Postcoital bleeding - ICD9: 626.7, ICD10: N93.0 - no bleeding on exam. Discussed unscheduled bleeding with IUD and with her recent weight loss. - BACT/DENISE VAG GRAM STAIN - PELVIC US WHI 4. Vaginal discharge - ICD9: 623.5, ICD10: N89.8 - BACT/DENISE VAG GRAM STAIN Will notify of results. Follow- up as needed. Delphine Floyd APRN.CNP 2) Contraception: IUD. Contraceptive options reviewed and information provided. 3) STD screening: Declined STD check. 4) Follow up one year or sooner as needed Delphine Floyd APRN.SLP documented in this encounter [facility] 02-01-2022 Miscellaneous Notes Patient calling her came home with paper rx for the QSYMIA and she said rx has to go to her mail away pharmacy, [facility]. Pending rx to file. Please advise Patient has been identified by name and date of : Yes Patient phones for refill(s): Pending Prescriptions Disp Refills QSYMIA 11.25 MG-69 MG CAPSULE, EXTENDED RELEASE 90 capsule 0 Sig: Take 1 capsule by mouth once daily for 90 days. BMI 31.96 MARCUS Class: C-IV MAZIN: No Signed Prescriptions Disp Refills phentermine-topiramate ER (QSYMIA) 11.25-69 mg 24 Hr Capsule 90 capsule 0 Sig: Take 1 capsule by mouth once daily for 90 days. BMI 31.96 MARCUS Class: C-IV MAZIN: No Authorizing Provider: HILTON ALCARAZ Date of last office visit in primary care: 01/20/2022, has appt 04/23/2022 Last 2 Encounter Wt Readings: Date: Wt: 01/20/2022 89.8 kg (198 lb) 10/05/2021 97.6 kg (215 lb 3.2 oz) Previous labs/tests for medication: Not applicable Please advise. Thank you. Gina Sparks LPN The following approved medication requests have been transmitted electronically. Signed Prescriptions Disp Refills phentermine-topiramate ER (QSYMIA) 11.25-69 mg 24 Hr Capsule 90 capsule 0 Sig: Take 1 capsule by mouth once daily for 90 days. BMI 31.96 MARCUS Class: C-IV MAZIN: No Authorizing Provider: HILTON ALCARAZ DO documented in this encounter [facility] 01-20-2022 Instructions Hilton Alcaraz DO - 01/20/2022 9:46 AM EDT Voltaren 1% gel pea sized amount 1-3 times a day (AM and PM) Can use a thumb spica splint at bed and as needed if thumb worsens. documented in this encounter [facility] 01-20-2022 History of Present illness Narrative CC: Jesusita Caal is a 41 year old female who presents to the office for follow up HPI: Seen in office on 06/24/21 Obesity, starting weight 275 lbs at home, 1st month of adipex weight was 264 lbs down to 242 lbs, last month after 2nd month of adipex weight was 244 lbs. Currently 239 lbs (230 lbs in AM at home). She has 1-2 weeks more of adipex until rx is complete. Has been working with Network Coordinator specialist at [facility] in the Medical nutrition therapy department and feels she is benefitting from this. Working on weekly meal prep for work days and doing some weekly intermittent fasting as well which helps her appetite control/overeating desires. Feels her anxiety and self confidence is better with the weight loss and feeling less joint pains with the diet changes. She completed adipex and was started on Qsymia At last OFFICE VISIT on 09/23/21 Obesity, weight is 221 lbs today, at home she weighs 215 lbs. She is working on continuing to change her diet with smaller portion sizes, increased vegetables and fruits and proteins. Trying to cut back on carbohydrates. Has lost 55 lbs today or more in the last 6 months. She is tolerating the Qsymia medication well. She is feeling much better. States her confidence and anxiety symptoms are also improving. She has met with Network Coordinator and she has been keeping track of food intake daily. She is also walking more for exercise and wants to be more diligent with the exercise as well. Is excited to see if this helps her inflammatory arthritis- is taking her medications per Dr. Conner Resident Care Technician She was continued on Qsymia with diet and exercise changes as well. Currently Obesity, weight is continuing to improve, now weighing 198 lbs today in the office. Is trying to continue a very healthy diet with smaller portions, increased proteins and healthy fats intake, increased green vegetables and healthy fresh fruits and limiting her simple carbohydrates. She is exercising by getting at least 10,000 steps per day. 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 She is enjoying this job position despite the stress associated with it. Tolerating the Qsymia medication well Leg edema has improved, hasn't had to take her diuretic recently HPL, making diet changes as above and weight loss. Glucose (mg/dL) Date Value 01/18/2022 91 04/16/2021 89 Potassium (mmol/L) Date Value 01/18/2022 3.1 04/16/2021 3.4 Sodium (mmol/L) Date Value 01/18/2022 138 04/16/2021 134 Chloride (mmol/L) Date Value 01/18/2022 98 04/16/2021 95 CO2 (mmol/L) Date Value 01/18/2022 28 04/16/2021 29 Creatinine (mg/dL) Date Value 01/18/2022 0.90 04/16/2021 0.90 BUN (mg/dL) Date Value 01/18/2022 16 04/16/2021 14 Anion Gap (mmol/L) Date Value 01/18/2022 12 04/16/2021 10 Calcium (mg/dL) Date Value 04/16/2021 10.1 Calcium, Total (mg/dL) Date Value 01/18/2022 10.0 Protein, Total (g/dL) Date Value 01/18/2022 7.8 04/16/2021 7.6 Albumin (g/dL) Date Value 01/18/2022 4.5 04/16/2021 4.1 Bilirubin, Total (mg/dL) Date Value 01/18/2022 0.6 04/16/2021 0.5 Alkaline Phosphatase (U/L) Date Value 01/18/2022 90 04/16/2021 102 AST (U/L) Date Value 01/18/2022 21 04/16/2021 19 ALT (U/L) Date Value 01/18/2022 16 04/16/2021 18 Hemoglobin (g/dL) Date Value 01/18/2022 14.5 04/16/2021 13.9 Hematocrit (%) Date Value 01/18/2022 43.8 04/16/2021 42.6 WBC (k/uL) Date Value 01/18/2022 6.29 04/16/2021 5.06 Cholesterol, Total Date Value Ref Range Status 01/18/2022 177 <200 mg/dL Final Comment: <200 mg/dL, Desirable 200-239 mg/dL, Borderline high >239 mg/dL, High HDL Cholesterol Date Value Ref Range Status 01/18/2022 64 >39 mg/dL Final Comment: 40-59 mg/dL, Acceptable >59 mg/dL, High: Negative risk factor for coronary heart disease <40 mg/dL, Low: Positive risk factor for coronary heart disease LDL Cholesterol Date Value Ref Range Status 01/18/2022 101 (H) <100 mg/dL Final Comment: <100 mg/dL, Optimal 100-129 mg/dL, Near optimal/above optimal 130-159 mg/dL, Borderline high 160-189 mg/dL, High >189 mg/dL, Very high Secondary prevention optimal LDL Cholesterol levels are recommended to be < 70 mg/dL Triglyceride Date Value Ref Range Status 01/18/2022 60 <150 mg/dL Final Comment: <150 mg/dL, Normal 150-199 mg/dL, Borderline high 200-499 mg/dL, High >499 mg/dL, Very high Hemoglobin A1C Date Value Ref Range Status 04/16/2021 5.3 4.3 - 5.6 % Final Comment: [place] [employer] guidelines indicate that patients with HgbA1c in the range 5.7-6.4% are at increased risk for development of diabetes, and intervention by lifestyle modification may be beneficial. HgbA1c greater or equal to 6.5% is considered diagnostic of diabetes. 10/23/2018 5.3 4.3 - 5.6 % Final Comment: [place] [employer] guidelines indicate that patients with HgbA1c in the range 5.7-6.4% are at increased risk for development of diabetes, and intervention by lifestyle modification may be beneficial. HgbA1c greater or equal to 6.5% is considered diagnostic of diabetes. PAST MEDICAL HISTORY Diagnosis Date MAXIM positive 09/2014 Inflammatory polyarthropathy (HCC) Kidney stone with stent Raynaud's disease PAST SURGICAL HISTORY Procedure Laterality Date D&C (MISSED AB 1ST TRIMESTER) 2001 ESWL Right 05/08/2017 EXTRACTION, ERUPTED TOOTH OR EXPOSED ROOT (ELEVATION AND/OR FORCEPS REMOVAL) GALLBLADDER/EF TUBAL LIGATION HX 2006 Social History: Social History Tobacco Use Smoking status: Never Smoker Smokeless tobacco: Never Used Vaping Use Vaping Use: Never used Substance Use Topics Alcohol use: Yes Comment: occ Drug use: No FAMILY HISTORY Problem Relation Age of Onset Alcohol/Drug Father Breast Cancer Maternal Grandmother Hypertension Maternal Grandmother Cancer Paternal Grandmother Breast Cancer Paternal Aunt x2 Cancer Paternal Aunt bone Current Outpatient prescriptions: buPROPion (WELLBUTRIN) 75 mg tablet Take 1 tablets PO by mouth in the morning chlorthalidone (HYGROTON) 25 mg tablet Take 1 tablet by mouth once daily. As needed for edema hydrOXYchloroQUINE (PLAQUENIL) 200 mg tablet Take 1 tablet by mouth twice daily buPROPion (WELLBUTRIN) 75 mg tablet Take 2 tablets (150mg) by mouth in the morning, take 1 tablet (75mg) by mouth in the evening naproxen (NAPROSYN) 500 mg tablet Take 1 tablet by mouth twice daily as needed (for pain/inflammation). Take with food. levonorgestrel (MIRENA) 20 mcg/24 hours (5 yrs) 52 mg IUD 1 Each by INTRAUTERINE route as directed. Cholecalciferol, Vitamin D3, 2,000 unit cap Take 2 tablets by mouth once daily. hydrocortisone 2.5 % cream Apply 1 application to affected area twice daily. Location: on eyelid as needed for rash furosemide (LASIX) 20 mg tablet Take 0.5-1 tablets by mouth daily with breakfast. Allergies: ALLERGIES Allergen Reactions Penicillins Unknown ROS: See HPI PE: 01/20/22 0850 BP: 110/70 Pulse: 80 Resp: 16 Temp: 36.5 C (97.7 F) TempSrc: Left Tympanic Weight: 89.8 kg (198 lb) Gen: A&O, NAD, non-toxic appearing, Pleasant, cooperative HEENT: NT/AC, PERRLA, EOMs intact b/l, nares clear and patent b/l, pharynx without erythema, exudate or lesions. Uvula midline. EACs without erythema or debris. TMs pearly valle with intact landmarks b/l. Neck: supple, No cervical LAD, no thyromegaly, no carotid bruits CV: RRR, normal S1 and S2, no murmurs, no gallops, no rubs, Pulses 2+ and symmetric in UE and LE b/l Lungs: normal respiratory effort, CTA b/l, no wheezing or rhonchi or rales Abd: soft, overweight, NT, ND, +BS, no hepatosplenomegaly MS: FROM all 4 extremities Neuro: CN II-XII intact b/l, Gait normal Skin: warm, dry, intact, eczematous dermatitis changes b/l upper eyelids ASSESSMENT/PLAN: 1. Dyslipidemia - ICD9: 272.4, ICD10: E78.5 (primary diagnosis) - improved control - Encouraged following a low fat, low cholesterol diet. - Discussed the benefits of regular aerobic exercise and weight loss. - Check fasting lipid panel and ALT in 6 months. 2. Encounter for screening mammogram for malignant neoplasm of breast - ICD9: V76.12, ICD10: Z12.31 - Set up for mammogram, yearly mammogram recommended - Encouraged monthly BSE - CINDY SCREENING W KYMBERLY 3. LIVIA (generalized anxiety disorder) - ICD9: 300.02, ICD10: F41.1 - decrease dose of medication, mood is doing great and she would like to try a lower dose. - BUPROPION HCL 75 MG TABLET 4. Eczematous dermatitis of upper eyelids of both eyes - ICD9: 373.31, ICD10: H01.131, H01.134 - rx prn as below, avoid eye makeup for now - HYDROCORTISONE 2.5 % TOPICAL CREAM 5. Inflammatory polyarthropathy (HCC) - ICD9: 714.9, ICD10: M06.4 - f/u with Resident Care Technician, leg edema has improved. 6. Bilateral leg edema - ICD9: 782.3, ICD10: R60.0 - okay to only use the lasix prn now, not daily, symptoms have improved with weight loss and diet changes. 7. Obesity, Class I, BMI 30-34.9 - ICD9: 278.00, ICD10: E66.9 Weight decreasing - Behavioral intervention, - Eat well program and - Continue current medications Hilton Alcaraz DO To ER if develops chest pain, shortness of breath, or severe worsening of symptoms. Discussed risks, benefits, alternatives, and potential side effects of medications. Patient expressed understanding and agreed with the plan. Hilton Alcaraz DO [address] [place] [address] documented in this encounter [facility] 01-07-2022 Miscellaneous Notes The following approved medication requests have been transmitted electronically. Signed Prescriptions Disp Refills chlorthalidone (HYGROTON) 25 mg tablet 90 tablet 0 Sig: Take 1 tablet by mouth once daily. As needed for edema MAZIN: No Authorizing Provider: HILTON ALCARAZ DO Rx pended. Lois Martin Ma Please send medication to [facility]. Patient asking for 90 day Patient calling today to changing her pharmacy for medication chlorthalidone (HYGROTON) 25 mg tablet. Please send medication to documented in this encounter [facility] 12-23-2021 Miscellaneous Notes Patient phones requesting refills as follows: Pending Prescriptions Disp Refills CHLORTHALIDONE 25 MG TABLET 90 tablet 0 Sig: TAKE 1 TABLET BY MOUTH ONCE DAILY NEEDED FOR EDEMA MAZIN: Yes Monica-09/23/21 Labs-04/16/21 NOV-01/20/22 Please review and advise. Rox Knox LPN documented in this encounter [facility] 12-13-2021 Miscellaneous Notes Patient is notified of message below and verbalized understanding of instructions. Jaja Motley MA Will order needed labs at next visit. rx sent Patient has been identified by name and date of : Yes RX INSTRUCTIONS: Patient aware RX will be sent to pharmacy. No need to notify patient. PLQ eye exam done on 05/16/2021. No evidence of PLQ toxicity. Report sent for scanning. Follow up appointment scheduled for 05/28/2022. Patient has been added to wait list for sooner appointment. Patient is asking if she is due to have labs done? LAST APPOINTMENT: 02/01/2021 UPCOMING APPOINTMENT: 05/28/2022 LABS: Hemoglobin (g/dL) Date Value 04/16/2021 13.9 Hematocrit (%) Date Value 04/16/2021 42.6 WBC (k/uL) Date Value 04/16/2021 5.06 Platelet Count (k/uL) Date Value 04/16/2021 249 AST Date Value Ref Range Status 04/16/2021 19 13 - 35 U/L Final ALT Date Value Ref Range Status 04/16/2021 18 7 - 38 U/L Final Creatinine Date Value Ref Range Status 04/16/2021 0.90 0.58 - 0.96 mg/dL Final No results found for: URICACID Jaja Motley MA Patient wanted to know if Dr. Conner would fill her Plaquenil until she is able to be seen. Please advice documented in this encounter [facility] Dyslipidemia- Primary Other and unspecified hyperlipidemia Encounter for screening mammogram for malignant neoplasm of breast Other screening mammogram LIVIA (generalized anxiety disorder) Generalized anxiety disorder Eczematous dermatitis of upper eyelids of both eyes Inflammatory polyarthropathy (HCC) Unspecified inflammatory polyarthropathy Bilateral leg edema Edema Obesity, Class I, BMI 30-34.9 Obesity, unspecified [facility] Diagnosis Obesity, Class III, BMI 40-49.9 (morbid obesity) (HCC) Morbid obesity [facility] Diagnosis Encounter for gynecological examination with abnormal finding- Primary Routine gynecological examination Pain due to intrauterine contraceptive device (IUD), initial encounter (HCC) Postcoital bleeding Vaginal discharge Leukorrhea, not specified as infective [facility] Diagnosis LIVIA (generalized anxiety disorder)- Primary Generalized anxiety disorder Obesity, Class III, BMI 40-49.9 (morbid obesity) (HCC) Morbid obesity Inflammatory polyarthropathy (HCC) Unspecified inflammatory polyarthropathy [facility] Diagnosis Dyslipidemia- Primary Other and unspecified hyperlipidemia LIVIA (generalized anxiety disorder) Generalized anxiety disorder Inflammatory polyarthropathy (HCC) Unspecified inflammatory polyarthropathy Obesity, Class I, BMI 30-34.9 Obesity, unspecified Rosacea Bilateral leg edema Edema [facility] Diagnosis Inflammatory polyarthropathy (HCC) Unspecified inflammatory polyarthropathy Dyslipidemia Other and unspecified hyperlipidemia Obesity, Class I, BMI 30-34.9 Obesity, unspecified [facility] Diagnosis Undifferentiated connective tissue disease (HCC)- Primary Unspecified diffuse connective tissue disease Inflammatory arthritis Unspecified inflammatory polyarthropathy Encounter for long-term (current) use of medications Encounter for long-term (current) use of other medications Facial rash Rash and other nonspecific skin eruption Sicca syndrome (HCC) Sicca syndrome [facility] Diagnosis Dyslipidemia- Primary Other and unspecified hyperlipidemia Inflammatory polyarthropathy (HCC) Unspecified inflammatory polyarthropathy Obesity, Class I, BMI 30-34.9 Obesity, unspecified Hot flashes Symptomatic menopausal or female climacteric states Bilateral leg edema Edema [facility] Diagnosis LIVIA (generalized anxiety disorder)- Primary Generalized anxiety disorder Inflammatory polyarthropathy (HCC) Unspecified inflammatory polyarthropathy Dyslipidemia Other and unspecified hyperlipidemia Obesity, Class I, BMI 30-34.9 Obesity, unspecified Raynaud's phenomenon without gangrene Situational depression Adjustment disorder with depressed mood [facility]* Diagnosis Encounter for screening mammogram for breast cancer [facility] Diagnosis Inflammatory arthritis Unspecified inflammatory polyarthropathy [facility] Diagnosis Dyslipidemia- Primary Other and unspecified hyperlipidemia Inflammatory polyarthropathy (HCC) Unspecified inflammatory polyarthropathy Obesity, Class I, BMI 30-34.9 Obesity, unspecified LIVIA (generalized anxiety disorder) Generalized anxiety disorder Raynaud's phenomenon without gangrene Bilateral leg edema Edema Vitamin D deficiency Unspecified vitamin D deficiency documented in this encounter [facility] note* Diagnosis Bilateral leg edema Edema documented in this encounter [facility] note* Diagnosis Inflammatory arthritis Unspecified inflammatory polyarthropathy documented in this encounter [facility] note* Diagnosis LIVIA (generalized anxiety disorder) Generalized anxiety disorder Situational depression Adjustment disorder with depressed mood documented in this encounter [facility] note* Diagnosis LIVIA (generalized anxiety disorder)- Primary Generalized anxiety disorder Bilateral leg edema Edema Need for influenza vaccination Need for prophylactic vaccination and inoculation against influenza Inflammatory polyarthropathy (HCC) Unspecified inflammatory polyarthropathy Obesity, Class III, BMI 40-49.9 (morbid obesity) (HCC) Morbid obesity Situational depression Adjustment disorder with depressed mood Encounter for screening mammogram for malignant neoplasm of breast Other screening mammogram Dyslipidemia Other and unspecified hyperlipidemia Obesity, Class I, BMI 30-34.9 Obesity, unspecified Varicose veins of both lower extremities with pain Varicose veins of lower extremities with other complications documented in this encounter [facility] note* Diagnosis Inflammatory arthritis Unspecified inflammatory polyarthropathy documented in this encounter [facility] for referral (narrative)* Diagnostic Procedure Only (Routine) - Pending Review Specialty Diagnoses / Procedures Referred By Cristo xiao Referred To Contact [facility] Diagnoses Encounter for screening mammogram for malignant neoplasm of breast Procedures CINDY SCREENING W KYMBERLY SCREENING DIGITAL BREAST TOMOSYNTHESIS BI SCREENING MAMMOGRAPHY BI 2-VIEW BREAST INC Hilton Nieves DO [address] [place] [address] [facility] [address] [place] [id number] Referral ID Status Reason Start Date Expiration Date Visits Requested Visits Authorized [id number] Pending Review Auto-Generat ed Referral 07/03/2022 02/19/2023 [facility] Diagnostic Procedure Only (Routine) - Pending Review Specialty Diagnoses / Procedures Referred By Contac t Referred To Contact [facility] Diagnoses Pain due to intrauterine contraceptive device (IUD), initial encounter (HCC) Postcoital bleeding Procedures PELVIC US WHI US PELVIC NONOBSTETRIC REAL-TIME IMAGE COMPLETE Delphine Floyd APRN.CNP [address] [place] [address] [facility] [address] [place] [address] Referral ID Status Reason Start Date Expiration Date Visits Requested Visits Authorized [id number] Pending Review Auto-Generat ed Referral 02/12/2022 02/12/2023 1 1 [facility] Diagnostic Procedure Only (Routine) - Pending Review Specialty Diagnoses / Procedures Referred By Contac t Referred To Contact [facility] Diagnoses Encounter for screening mammogram for breast cancer Procedures CINDY SCREENING SCREENING MAMMOGRAPHY BI 2-VIEW BREAST INC CAD Hilton Alcaraz DO [address] [place] [address] [facility] [address] [place] [address] Referral ID Status Reason Start Date Expiration Date Visits Requested Visits Authorized [id number] Pending Review Auto-Generat ed Referral 12/24/2022 01/23/2024 1 1 [facility] Reason for Referral Specialty Diagnoses / Procedures Referred By Contac t Referred To Contact V[facility] Surgery Diagnoses Varicose veins of both lower extremities with pain Procedures CONSULT TO VASCULAR SURGERY OFFICE/OUTPATIENT [facility] 60-74 MINUTES Hilton Alcaraz DO [address] [place] [address] Referral ID Status Reason Start Date Expiration Date Visits Requested Visits Authorized [id number] Authorized PCP Requested Referral 06/03/2023 06/02/2024 1 1 Specialty Diagnoses / Procedures Referred By Contac t Referred To Contact [facility] Diagnoses Encounter for screening mammogram for malignant neoplasm of breast Procedures CINDY SCREENING SCREENING MAMMOGRAPHY BI 2-VIEW BREAST INC CAD Hilton Alcaraz, DO [address] [place] [address] [facility] [address] [place] [address] Referral ID Status Reason Start Date Expiration Date Visits Requested Visits Authorized [id number] Pending Review Auto-Generat ed Referral 06/03/2023 07/02/2024 1 1 Specialty Diagnoses / Procedures Referred By Contac t Referred To Contact Nutrition Diagnoses Inflammatory polyarthropathy (HCC) Obesity, Class III, BMI 40-49.9 (morbid obesity) (HCC) Procedures CONSULT TO NUTRITION THERAPY MEDICAL NUTRITION ASSMT&IVNTJ INDIV EACH 15 GA MEDICAL NUTRITION ASSMT&IVNTJ INDIV EACH 15 GA MEDICAL NUTRITION ASSMT&IVNTJ INDIV EACH 15 GA MEDICAL NUTRITION ASSMT&IVNTJ INDIV EACH 15 GA Hilton Alcaraz, DO [address] [place] [address] Referral ID Status Reason Start Date Expiration Date Visits Requested Visits Authorized [id number] Authorized PCP Requested Referral 06/03/2023 06/02/2024 1 1 Summary Purpose Family History No Family History Records Found Advance Directives No Advanced Directives Records Found Additional Source Comments Source Comments (unrecognize d section and content) In the event this informatio n is protected by the Federal Confidentiality of Alcohol and Drug Abuse Patient Records regulations: The Federal rules restrict any use of the information to criminally investigate or prosecute any alcohol or drug abuse patient.[facility] the event this information is protected by the Federal Confidentiality of Alcohol and Drug Abuse Patient Records regulations: The Federal rules restrict any use of the information to criminally investigate or prosecute any alcohol or drug abuse patient.[facility] the event this information is protected by the Federal Confidentiality of Alcohol and Drug Abuse Patient Records regulations: The Federal rules restrict any use of the information to criminally investigate or prosecute any alcohol or drug abuse patient.[facility] the event this information is protected by the Federal Confidentiality of Alcohol and Drug Abuse Patient Records regulations: The Federal rules restrict any use of the information to criminally investigate or prosecute any alcohol or drug abuse patient.[facility] the event this information is protected by the Federal Confidentiality of Alcohol and Drug Abuse Patient Records regulations: The Federal rules restrict any use of the information to criminally investigate or prosecute any alcohol or drug abuse patient.[facility] the event this information is protected by the Federal Confidentiality of Alcohol and Drug Abuse Patient Records regulations: The Federal rules restrict any use of the information to criminally investigate or prosecute any alcohol or drug abuse patient.[facility] the event this information is protected by the Federal Confidentiality of Alcohol and Drug Abuse Patient Records regulations: The Federal rules restrict any use of the information to criminally investigate or prosecute any alcohol or drug abuse patient.[facility] the event this information is protected by the Federal Confidentiality of Alcohol and Drug Abuse Patient Records regulations: The Federal rules restrict any use of the information to criminally investigate or prosecute any alcohol or drug abuse patient.[facility] the event this information is protected by the Federal Confidentiality of Alcohol and Drug Abuse Patient Records regulations: The Federal rules restrict any use of the information to criminally investigate or prosecute any alcohol or drug abuse patient.[facility] the event this information is protected by the Federal Confidentiality of Alcohol and Drug Abuse Patient Records regulations: The Federal rules restrict any use of the information to criminally investigate or prosecute any alcohol or drug abuse patient.[facility] the event this information is protected by the Federal Confidentiality of Alcohol and Drug Abuse Patient Records regulations: The Federal rules restrict any use of the information to criminally investigate or prosecute any alcohol or drug abuse patient.[facility] the event this information is protected by the Federal Confidentiality of Alcohol and Drug Abuse Patient Records regulations: The Federal rules restrict any use of the information to criminally investigate or prosecute any alcohol or drug abuse patient.[facility] the event this information is protected by the Federal Confidentiality of Alcohol and Drug Abuse Patient Records regulations: The Federal rules restrict any use of the information to criminally investigate or prosecute any alcohol or drug abuse patient.[facility] the event this information is protected by the Federal Confidentiality of Alcohol and Drug Abuse Patient Records regulations: The Federal rules restrict any use of the information to criminally investigate or prosecute any alcohol or drug abuse patient.[facility] the event this information is protected by the Federal Confidentiality of Alcohol and Drug Abuse Patient Records regulations: The Federal rules restrict any use of the information to criminally investigate or prosecute any alcohol or drug abuse patient.[facility] the event this information is protected by the Federal Confidentiality of Alcohol and Drug Abuse Patient Records regulations: The Federal rules restrict any use of the information to criminally investigate or prosecute any alcohol or drug abuse patient.[facility] the event this information is protected by the Federal Confidentiality of Alcohol and Drug Abuse Patient Records regulations: The Federal rules restrict any use of the information to criminally investigate or prosecute any alcohol or drug abuse patient.[facility] the event this information is protected by the Federal Confidentiality of Alcohol and Drug Abuse Patient Records regulations: The Federal rules restrict any use of the information to criminally investigate or prosecute any alcohol or drug abuse patient.[facility] the event this information is protected by the Federal Confidentiality of Alcohol and Drug Abuse Patient Records regulations: The Federal rules restrict any use of the information to criminally investigate or prosecute any alcohol or drug abuse patient.[facility] the event this information is protected by the Federal Confidentiality of Alcohol and Drug Abuse Patient Records regulations: The Federal rules restrict any use of the information to criminally investigate or prosecute any alcohol or drug abuse patient.[facility] the event this information is protected by the Federal Confidentiality of Alcohol and Drug Abuse Patient Records regulations: The Federal rules restrict any use of the information to criminally investigate or prosecute any alcohol or drug abuse patient.[facility] the event this information is protected by the Federal Confidentiality of Alcohol and Drug Abuse Patient Records regulations: The Federal rules restrict any use of the information to criminally investigate or prosecute any alcohol or drug abuse patient.[facility] the event this information is protected by the Federal Confidentiality of Alcohol and Drug Abuse Patient Records regulations: The Federal rules restrict any use of the information to criminally investigate or prosecute any alcohol or drug abuse patient.[facility] the event this information is protected by the Federal Confidentiality of Alcohol and Drug Abuse Patient Records regulations: The Federal rules restrict any use of the information to criminally investigate or prosecute any alcohol or drug abuse patient.[facility] the event this information is protected by the Federal Confidentiality of Alcohol and Drug Abuse Patient Records regulations: The Federal rules restrict any use of the information to criminally investigate or prosecute any alcohol or drug abuse patient.[facility] the event this information is protected by the Federal Confidentiality of Alcohol and Drug Abuse Patient Records regulations: The Federal rules restrict any use of the information to criminally investigate or prosecute any alcohol or drug abuse patient.[facility] the event this information is protected by the Federal Confidentiality of Alcohol and Drug Abuse Patient Records regulations: The Federal rules restrict any use of the information to criminally investigate or prosecute any alcohol or drug abuse patient.[facility] the event this information is protected by the Federal Confidentiality of Alcohol and Drug Abuse Patient Records regulations: The Federal rules restrict any use of the information to criminally investigate or prosecute any alcohol or drug abuse patient.[facility] Reason for Visit (unrecogniz ed section and content) Reason Comments Refill Request Reason Comments Medication Problem Reason Comments Follow Up 4 months Reason Comments Well Woman Specialty Diagnoses / Procedures Referred By Contac t Referred To Contact Gynecology / [facility] Diagnoses annual Procedures WELLNESS EXAMS EST 40-64 YRS EST WHI ANNUAL PATIENT Self, Delphine Yan, PUBLIC HEALTH DIETITIAN.SLP [address] [place] [address] Referral ID Status Reason Start Date Expiration Date Visits Re quested Visits Authorized [id number] Closed 02/04/2022 08/02/2022 1 1 Reason Comments F/U 3 Month Reason Onset Date Comments Refill Request 05/19/2022 Reason Comments Abstract PLQ eye exam 022 Reason Comments New Patient raynaud Reason Comments Appointment Reason Comments Follow Up 1 month Reason Onset Date Comments Refill Request 01/06/2023 Reason Comments Patient Update Patient Question Reason Onset Date Comments Refill Request 04/03/2023 Reason Comments Refill Request Patient Update Patient lost her insurance Reason Onset Date Comments Refill Request 05/04/2023 Reason Onset Date Comments F/U 3 Month Immunizations 06/03/2023 Flu vaccination Reason Comments Results Care Teams (unrecognized sec tion and content) Car Wash Attendant Relationship Specialty Start Date End Date Hilton Alcaraz, DO [address] [facility] [place] [address] PCP - General Family Practice 09/15/14 Car Wash Attendant Relationship Specialty Start Date End Date Hilton Alcaraz DO [address] [place] [place] [address] PCP - General Family Practice 09/15/14 Car Wash Attendant Relationship Specialty Start Date End Date Hilton Alcaraz DO [address] [place] [place] [address] PCP - General Family Practice 09/15/14 Car Wash Attendant Relationship Specialty Start Date End Date Hilton Alcaraz DO [address] [place] [place] [address] PCP - General Family Practice 09/15/14 Car Wash Attendant Relationship Specialty Start Date End Date Hilton Alcaraz DO [address] [place] [address] PCP - General Family Practice 09/15/14 Car Wash Attendant Relationship Specialty Start Date End Date Hilton Alcaraz, DO [address] [place] [address] PCP - General Family Medicine 09/15/14 Car Wash Attendant Relationship Specialty Start Date End Date Hilton Alcaraz, DO [address] [place] [address] PCP - General Family Medicine 09/15/14 Car Wash Attendant Relationship Specialty Start Date End Date Hilton Alcaraz, DO [address] [place] [address] PCP - General Family Medicine 09/15/14 Car Wash Attendant Relationship Specialty Start Date End Date Hilton Alcaraz, DO [address] [place] [address] PCP - General Family Medicine 09/15/14 Car Wash Attendant Relationship Specialty Start Date End Date Hilton Alcaraz, DO [address] [place] [address] PCP - General Family Medicine 09/15/14 Car Wash Attendant Relationship Specialty Start Date End Date Hilton Alcaraz, DO [address] [place] [address] PCP - General Family Medicine 09/15/14 Car Wash Attendant Relationship Specialty Start Date End Date Hilton Alcaraz, DO [address] [place] [address] PCP - General Family Medicine 09/15/14 Car Wash Attendant Relationship Specialty Start Date End Date Hilton Alcaraz, DO [address] [place] [address] PCP - General Family Medicine 09/15/14 Car Wash Attendant Relationship Specialty Start Date End Date Hilton Alcaraz, DO [address] [place] [address] PCP - General Family Medicine 09/15/14 Car Wash Attendant Relationship Specialty Start Date End Date Hilton Alcaraz DO [address] [place] [address] PCP - General Family Medicine 09/15/14 Car Wash Attendant Relationship Specialty Start Date End Date Hilton Alcaraz DO [address] [place] [address] PCP - General Family Medicine 09/15/14 Car Wash Attendant Relationship Specialty Start Date End Date Hilton Alcaraz, [address] [place] [address] PCP - General Family Medicine 09/15/14 Car Wash Attendant Relationship Specialty Start Date End Date Hilton Alcaraz DO [address] [place] [address] PCP - General Family Medicine 09/15/14 Car Wash Attendant Relationship Specialty Start Date End Date Hilton Alcaraz DO [address] [place] [address] PCP - General Family Medicine 09/15/14 Car Wash Attendant Relationship Specialty Start Date End Date Hilton Alcaraz, [address] [place] [address] PCP - General Family Medicine 09/15/14 Car Wash Attendant Relationship Specialty Start Date End Date Hilton Alcaraz DO [address] [place] [address] PCP - General Family Medicine 09/15/14 Car Wash Attendant Relationship Specialty Start Date End Date Hilton Alcaraz DO [address] [place] [address] PCP - General Family Medicine 09/15/14 INFORMATION SOURCE (unrecogn ized section and content) FOR RECORDS PERTAINING TO PATIENTS WHO ARE OR HAVE BEEN ENROLLED IN A CHEMICAL DEPENDENCY/SUBSTANCEABUSE PROGRAM, SOME INFORMATION MAY BE OMITTED. This clinical summary was aggregated from multiple sources. Caution should be exercised in using it in the provision of clinical care. This summary normalizes information from multiple sources, and as a consequence, information in this document may materially change the coding, format and clinical context of patient data. In addition, data may be omitted in some cases. CLINICAL DECISIONS SHOULD BE BASED ON THE PRIMARY CLINICAL RECORDS. [facility]. provides no warranty or guarantee of the accuracy or completeness of information in this document.
[2023-09-02 16:58] LABS: Absolute Lymphocyte Count 2.69 X10^3/uL (0.83-4.51); Basophil# 0.05 X10^3/uL; Basophil% 0.6 % (0-1); Eosinophils% 1.2 % (0-5); Hematocrit 44.5 % (37-47); Hemoglobin 14.7 g/dL (12.0-15.0); Lymphocyte # 2.69 X10^3/ul (0.83-4.51); Lymphocyte % 31.1 % (19-41); Mean Corpuscular Hgb 30.1 pg (27.0-32.0); Mean Platelet Vol. 9.4 fl (6.2-12.0); Monocyte# 0.77 X10^3/uL; Monocyte% 8.9 % (0-10); NRBC Flagged by Analyzer 0 % (0-5); Neutrophil # 5.03 X10^3/uL (2.7-7.7); Platelet Count 301 K/mm3 (150-450); RBC Distribution Width CV 13.1 % (11.6-14.6); RBC Distribution Width SD 43.1 fl (35.1-43.9); Red Blood Count 4.89 M/mm3 (4.2-5.4); White Blood Count 8.7 K/mm3 (4.4-11.0)
[2023-09-02 17:15] LABS: AST(SGOT) 12 U/L (15-37); Alanine Aminotransfer ALT/SGPT 28 U/L (13-56); EST Glomerular Filtration Rate 72 mL/min (>60); Est Glom Filt Rate - Afr Amer 87 mL/min (>60)
== END | disposition home or self-care (01) ==
LOC: LAB 16:38
PROVIDERS: PCP Student in an Organized Health Care Education/Training Program; Referring Provider Nurse Practitioner Adult Health; Visit Provider Nurse Practitioner Adult Health
DX: M19.90 Unspecified osteoarthritis, unspecified site (principal); Z79.899 Other long term (current) drug therapy
CPT/HCPCS: 36415; 82565; 84450; 84460; 85025

== ENCOUNTER → 2023-09-14 | Outpatient (CLI) | payer OTHER, SELFPAY ==
--- NOTE | 2023-09-14 13:45 | CER_PTH ---
PATHOLOGY RESULTS PATIENT: WANDA CAAL LOC: [facility]#:[id number] AGE/SX: 43/F ROOM: RE09/14/[address]: Dr. Priscilla Mart DO : 1980 BED: DIS: 09/14/2023 SPEC #: [id number] RECD: 09/14/23 15:59 STATUS: NAJMA DAWSON #: [id number] MARKIE: 09/14/23 13:[address]: Priscilla Mart DEPT: SURGICAL PATHOLOGY RECD BY: Karina Beaulieu ENTERED: 09/15/23 08:32 SP TYPE: CERV OTHR DR: Dr. Hilton Doty DO Tissues: Endocervical Uterine cervix, NOS Procedures: Surgery Specimen Level IV HEADER OPERATION: Colposcopy PRE-OP DIAGNOSIS: HPV positive TISSUE SUBMITTED: A - Endocervical curettings, B - 5 o'clock MICROSCOPIC DIAGNOSIS A. Endocervical curettings: Scant minute fragments of benign ecto- and endocervical epithelium with acute and chronic inflammation and blood clots. Negative for dysplasia. B. Cervix, 5 o'clock, biopsy: A fragment of benign endocervical mucosa. Scant minute fragments of benign ecto- and endocervical epithelium. Negative for dysplasia. See comment. IAM:deshaun 09/16/2023 COMMENT Clinical correlation and appropriate follow up are necessary. MICROSCOPIC DESCRIPTION Slides are reviewed. GROSS DESCRIPTION A - Received in formalin is one container labeled with the patient name and designated endocervical curettings. The specimen consists of multiple fragments of hemorrhagic soft tissue that in aggregate measure 0.3 x 0.3 x 0.1 cm. The specimen is totally submitted in one cassette. B - Received in formalin is one container labeled with the patient name and designated 5 o'clock. The specimen consists of multiple irregular fragments of light rivera soft tissue mixed with mucoid tissue that in aggregate measure 0.6 x 0.3 x 0.1 cm. The specimen is totally submitted in one cassette. / SJ:deshaun 09/15/2023 TC:5 CPT: 52490 x2
== END | disposition home or self-care (01) ==
LOC: LABSPEC 16:07
PROVIDERS: PCP Student in an Organized Health Care Education/Training Program; Referring Provider Obstetrics & Gynecology; Visit Provider Obstetrics & Gynecology
DX: R87.820 Cervical low risk human papillomavirus (HPV) DNA test positive (principal)
CPT/HCPCS: 88305

== ENCOUNTER 2023-09-29 08:16 | Day surgery (SDC) | payer OTHER, SELFPAY ==
--- NOTE | 2023-09-29 08:28 | HP.PCM_ITS ---
History and Physical Date of Admission: 09/29/23 Vital Signs 09/14/2412:33 09/24/2407:32 09/24/2407:34 Height 5 ft 7 in 5 ft 7 in 5 ft 7 in Weight: 199 lb 6 oz 195 lb 2 oz BMI 31.2 30.5 BP 131/85 H 114/71 Intake Visit Reasons: ablation Nurse Emergency Room Required: No Is patient in pain?: No Allergies Penicillins [PCN] Allergy (Verified 09/24/23 08:32) Unknown Medications naproxen 500 mg tablet 500 mg PO BID PRN PRN Pain Score 4-10 #20 tabs 11/25/19 [Rx Confirmed 09/24/23] chlorthalidone 25 mg tablet 25 mg PO DAILY 03/12/20 [History Confirmed 09/24/23] hydroxychloroquine 200 mg tablet 200 mg PO BIDCM 03/12/20 [History Confirmed 09/24/23] lorazepam 0.5 mg tablet 0.5 mg PO DAILY PRN PRN Anxiety 03/12/20 [History Confirmed 09/24/23] bupropion HCl 75 mg tablet 75 mg PO DIRECTED 09/24/23 [History Confirmed 09/24/23] cholecalciferol (vitamin D3) 125 mcg (5,000 unit) capsule 125 mcg PO DAILY 09/24/23 [History Confirmed 09/24/23] phentermine 11.25 mg-topiramate ER 69 mg capsule,ext.[id number] mphas (Qsymia) 1 cap PO DAILY 09/24/23 [History Confirmed 09/24/23] Post menopausal: No Patient : No : No PFSH Medical History History of ureteral stone Surgical History S/P tubal ligation Social History current occupational status: employed 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 She has lupus that includes raynaud's disease and rheumatoid arthritis on plaquanil. She initially requested a hysterectomy but after further discussion has decided that she would like to proceed with an endometrial ablation. The ultrasound is as follows: FINDINGS: UTERUS: Anteverted. The uterus measures 8.8 x 5.5 x 5.0 cm. There is no uterine mass. The endometrial stripe measures 5 mm in AP diameter which is within normal limits. There is a anterior fundal uterine fibroid measuring 2.7 cm, with approximately 1.5 cm submucosal component. RIGHT OVARY: Measures 3.2 x 2.3 x 1.7 cm. Non-enlarged, normal echogenicity. There is a 1.7 cm physiologic follicle. No follow-up imaging recommended. There is normal arterial inflow and venous outflow present in the right ovary. LEFT OVARY: Measures 2.2 x 1.8 x 1.3 cm. Non-enlarged, normal echogenicity. There is normal arterial inflow and venous outflow present in the left ovary. FREE FLUID: None. US/Pelvic (Non ) IMPRESSION: Anterior uterine fundal fibroid measuring 2.7 cm with 1.5 cm submucosal component. Endometrium otherwise unremarkable.or ROS Const ROS Unobtainable: All systems reviewed & are unremarkable except as noted in H Resp Resp: Reports system reviewed and no additional complaints, except as documented; Denies cough GI GI: Reports as per HPI Psych Psych: Reports system reviewed and no additional complaints, except as documented Exam Const General: cooperative, healthy appearing, comfortable and no acute distress Resp Effort & Inspection: normal respiratory effort Skin General: no rashes or lesions noted Psych Appearance: grossly normal Speech and Movement: speech and movement normal Coding Level of Care Code Off vis,est,level 4 Diagnoses Menorrhagia with regular cycle N92.0 Menorrhagia type: with regular cycle Assessment and Plan Assessment and Plan (1) Menorrhagia: Status: Chronic Qualifiers: Menorrhagia type: with regular cycle Qualified Code(s): N92.0 - Excessive and frequent menstruation with regular cycle Comment: failed IUD; Plan: After discussing the patient's diagnosis and treatment plan options, patient wishes to proceed with surgical management. I have discussed with the patient the risks, benefits, and alternatives of the procedure which include but are not limited to risks of anesthesia, bleeding, infection, possible damage to bowel, bladder, or surrounding vasculature which could lead to additional surgery to evaluate any complications. Patient agrees to procedure and wishes to proceed. ACOG/uptodate references given for additional information regarding procedure. plan to proceed with hysteroscopy dilation and curettage, dagoberto ablation.
--- NOTE | 2023-09-29 08:29 | DCINST_ITS ---
Discharge Instructions Diet Discharge Diet: No restrictions Activity Discharge Activity: Return to Normal Activity, May Shower and May Take a Tub Bath (after 1 week) May resume sexual activity in: 1-2 weeks Weight Bearing Status: Weight bearing as tolerated Lifting Restrictions: none Dressing / Incision Call your doctor if you observe: Fever of 101 or Higher, Using more than 1 pad per hour, Shortness of breath and Uncontrolled pain Follow Up Care Please Follow Up With: Priscilla Mart DO When: Call [phone] to schedule appointment. Test Results: Test results from this visit will be discussed in further detail at your follow- up appointment, if applicable. Discharge Plan Admission Primary Reason for Your Visit: endometrial ablation Attending Provider: Priscilla Mart Primary Care Provider: Hilton Doty Discharge Orders/Prescriptions Prescriptions: Continued bupropion HCl 75 mg tablet 75 mg PO DIRECTED Rx Instructions: 2 tab in am, 1 tab in pm cholecalciferol (vitamin D3) 125 mcg (5,000 unit) capsule 125 mcg PO DAILY Qsymia 11.25-69 mg capsule, ER multiphase 24 hr 1 cap PO DAILY benzonatate 100 mg capsule 100 mg PO BID-TID PRN (Reason: cough) Qty: 30 0RF naproxen 500 MG tablet 500 mg PO BID PRN PRN (Reason: Pain Score 4-10/10) Qty: 20 0RF chlorthalidone 25 MG tablet 25 mg PO DAILY lorazepam 0.5 MG tablet 0.5 mg PO DAILY PRN PRN (Reason: Anxiety) hydroxychloroquine [Plaquenil] 200 mg tablet 300 mg PO DAILY trazodone 50 mg tablet 50 mg PO QHS Patient Comments: Take 1-2 tablets by mouth daily at bedtime. Referrals / Follow Up: Hilton Doty DO [Primary Care Provider] - Disposition Disposition (needs filled in before D/C Order can be placed): Home, Self Care
[2023-09-29 08:42] VITALS: BP 114/71; PULSE 59; RESP 16; TEMP 36.6; O2SAT 100; BMI 31.6
[2023-09-29] MEDS: Lactated Ringers 1,000 ML 15 ML IV (09:10)
[2023-09-29 09:26] LABS: Internal QC Validated? YES +Cl - CLEAR BKGD; Pregnancy, Urine Negative Negative
[2023-09-29 09:28] LABS: Hematocrit 38.5 % (37-47); Hemoglobin 12.6 g/dL (12.0-15.0); Mean Corp Hgb Conc 32.7 g/dL (32-36); Mean Corpuscular Hgb 29.4 pg (27.0-32.0); Mean Corpuscular Volume 89.7 fL (81-99); Mean Platelet Vol. 10.4 fl (6.2-12.0); Platelet Count 131 K/mm3 (150-450); RBC Distribution Width CV 12.8 % (11.6-14.6); RBC Distribution Width SD 41.9 fl (35.1-43.9); Red Blood Count 4.29 M/mm3 (4.2-5.4); White Blood Count 3.3 K/mm3 (4.4-11.0)
[2023-09-29] MEDS: Lidocaine 1% (30 ml sdv) 30 ML Vial (09:50)
--- NOTE | 2023-09-29 10:00 | EMB_PTH ---
PATHOLOGY RESULTS PATIENT: WANDA CAAL LOC: [facility] U#:[id number] AGE/SX: 43/F ROOM: RE09/29/[address]: Dr. Priscilla Mart DO : 1980 BED: DIS: 09/29/2023 SPEC #: [id number] RECD: 09/29/23 10:55 STATUS: NAJMA DAWSON #: [id number] MARKIE: 09/29/23 10:[address]: Priscilla Mart DEPT: SURGICAL PATHOLOGY RECD BY: Dasia Zheng ENTERED: 09/29/23 10:55 SP TYPE: ENDOM BX/C VALENTINAHR DR: Dr. Hilton Doty DO Tissues: Endometrium, NOS Procedures: Surgery Specimen Level IV HEADER OPERATION: Hysteroscopy, D & C Arabella PRE-OP DIAGNOSIS: Menorrhagia TISSUE SUBMITTED: Endometrial curettings MICROSCOPIC DIAGNOSIS Endometrial curettings: Disordered proliferative endometrium. SJ:deshaun 09/30/2023 MICROSCOPIC DESCRIPTION Slides are reviewed. GROSS DESCRIPTION Received in fixative is one container labeled with the patient's name and designated endometrial curettings. The specimen consists of multiple irregular fragments of pink soft tissue that in aggregate measure 5.0 x 2.0 x 0.2 cm. The entire specimen is submitted in two cassettes. / IAM:deshaun 09/29/2023 TC:5 CPT: 01217
--- NOTE | 2023-09-29 10:07 | PCM.OPRPT ---
Problems Associated Problem List Diagnoses (1) Fibroids: (2) Menorrhagia: (3) Dysmenorrhea: (4) Abnormal uterine bleeding (AUB): Report of Operation Date of Procedure: 09/29/23 Pre-Operative Diagnosis: 43 y/o with menorrhagia and fibroid uterus Post-Operative Diagnosis: 43 y/o with menorrhagia and fibroid uterus Surgery/Procedure Performed:: hysteroscopy dilation and curettage, arabella endometrial ablation Description of Surgical Findings:: 8 cm uterus and cervix, 4 cm endometrial cavity. normal tubal ostia Surgeon: Priscilla Mart supervisor paper machine: None Type of Anesthesia: MAC/Supplemental/Local Specimen's removed: endometrial curetting's Drains: none Estimated Blood Loss (mL): 5cc Description of Procedure: Patient was prepped and draped in a normal sterile fashion under MAC anesthesia. A weighted speculum was placed in the vagina and the anterior lip of the cervix was grasped with a single-tooth tenaculum. A paracervical block was placed with 1% lidocaine. Cervix was progressively dilated to allow passage of a 5 mm hysteroscope. The lining was fully visualized and noted to be normal . the uterus sounded to 8 cm. Curettage was performed and scant tissue wassent to pathology. The Arabella device was opened and the cavity length was found to be 4 cm. Device was inserted into the uterus and balloon inflated and device deployed. Integrity of the cavity was confirmed and a 2 minute treatment cycle was completed without complication. All instruments were removed from the vagina and excellent hemostasis was noted. Patient was awoken and taken to recovery in stable condition. Procedure Start Time: 09:50 Procedure Stop Time: 10:07 Complications none Admit VTE Documentation VTE Present on Admission: No VTE Mechan Device Prophylaxis: SCD's VTE Pharm Prophylaxis ordered?: No Multi Select Codes Urinary/Genital Urinary/Genital CPT Codes: 76413 Arabella/Novasure
[2023-09-29 10:15] VITALS: BP 104/74; BP 114/71; PULSE 63; RESP 16; TEMP 36.6; O2SAT 100
[2023-09-29 10:20] VITALS: BP 104/73; BP 114/71; PULSE 61; RESP 16; O2SAT 100
[2023-09-29 10:25] VITALS: BP 114/71; BP 114/73; PULSE 55; RESP 16; O2SAT 100
[2023-09-29 10:30] VITALS: BP 110/89; BP 114/71; PULSE 57; RESP 16; TEMP 36.6; O2SAT 100
[2023-09-29] MEDS: Oxycodone/Apap 5/325 Tablet PO (10:49)
[2023-09-29 12:03] VITALS: BP 102/72; BP 114/71; PULSE 56; RESP 16; TEMP 36.5; O2SAT 97
== END 2023-09-29 12:12 | disposition home or self-care (01) ==
LOC: SDC 08:17 → AC 08:18
PROVIDERS: PCP Student in an Organized Health Care Education/Training Program; Referring Provider Obstetrics & Gynecology; Visit Provider Obstetrics & Gynecology
PROC: 0U5B8ZZ Destruction of Endometrium, Via Natural or Artificial Opening Endoscopic (ICD-10-PCS; CPT 58558; principal; 2023-09-29 09:45)
DX: N92.0 Excessive and frequent menstruation with regular cycle (principal); M32.9 Systemic lupus erythematosus, unspecified; M06.9 Rheumatoid arthritis, unspecified; N94.6 Dysmenorrhea, unspecified; N93.9 Abnormal uterine and vaginal bleeding, unspecified; I73.00 Raynaud's syndrome without gangrene; F41.9 Anxiety disorder, unspecified; Z79.899 Other long term (current) drug therapy; Z87.891 Personal history of nicotine dependence
CPT/HCPCS: 58353; 00940; 81025; 85027; 86850; 86900; 86901; 88305; J7120; J2405

== ENCOUNTER 2023-11-25 13:58 | Outpatient (RCR) | payer OTHER, SELFPAY | END 2023-12-01 23:59 | LOC: NS 13:58 | PROVIDERS: PCP Student in an Organized Health Care Education/Training Program; Referring Provider Student in an Organized Health Care Education/Training Program; Visit Provider Student in an Organized Health Care Education/Training Program | DX: Z71.3 Dietary counseling and surveillance (principal); M06.4 Inflammatory polyarthropathy; E66.9 Obesity, unspecified; Z68.30 Body mass index [BMI] 30.0-30.9, adult | CPT/HCPCS: 97802 ==

== ENCOUNTER 2024-01-11 09:40 | Outpatient (RCR) | payer OTHER, SELFPAY | END 2024-01-31 23:59 | LOC: NS 09:40 | PROVIDERS: PCP Student in an Organized Health Care Education/Training Program; Referring Provider Student in an Organized Health Care Education/Training Program; Visit Provider Student in an Organized Health Care Education/Training Program | DX: Z71.3 Dietary counseling and surveillance (principal); M06.4 Inflammatory polyarthropathy; E66.9 Obesity, unspecified; Z68.30 Body mass index [BMI] 30.0-30.9, adult | CPT/HCPCS: 97803 ==

== ENCOUNTER 2024-02-05 11:09 | Emergency (ER) | payer OTHER, SELFPAY ==
[2024-02-05 11:09] VITALS: BP 143/73; PULSE 65; RESP 14; TEMP 36.2; O2SAT 98; BMI 30.6
--- NOTE | 2024-02-05 11:22 | EX.ED.DYSGE1 ---
HPI <JAYE Villareal - Last Filed: 02/05/24 12:10> History of Present Illness Chief Complaint: Head Injury Narrative Narrative: 44-year-old female was outside trimming trees on her kitchen stepstool approximately 4 feet up when the ladder started to close and she fell backwards striking her head on the ground. She states after hitting her head she then bounced onto her right side. No LOC. She was able to get up and is ambulatory. She complains of mild headache, nausea, and soreness on her right side. No blood thinners. PFSH <JAYE Villareal - Last Filed: 02/05/24 12:10> [facility] Medical History Anxiety Arthritis Former smoker History of edema History of ureteral stone Kidney stones Rheumatoid arthritis Wears dentures Wears glasses Home Medications ?Medication ?Instructions ?Recorded ?Last Taken ?Type naproxen 500 mg tablet 500 mg PO BID PRN PRN Pain Score 11/25/19 Unknown Rx 4-05/12 #20 tabs chlorthalidone 25 mg tablet 25 mg PO DAILY 03/12/20 09/28/23 History lorazepam 0.5 mg tablet 0.5 mg PO DAILY PRN PRN Anxiety 03/12/20 Unknown History bupropion HCl 75 mg tablet 75 mg PO DIRECTED 09/24/23 09/28/23 19:30 History cholecalciferol (vitamin D3) 125 125 mcg PO DAILY 09/24/23 09/28/23 History mcg (5,000 unit) capsule phentermine 11.25 mg-topiramate ER 1 cap PO DAILY 09/24/23 09/28/23 12:40 History 69 mg capsule,[id number] mphas (Qsymia) hydroxychloroquine 200 mg tablet 300 mg PO DAILY 09/25/23 09/28/23 19:30 History (Plaquenil) trazodone 50 mg tablet 50 mg PO QHS 09/25/23 09/27/23 History naproxen 500 mg tablet (Naprosyn) 500 mg PO BID PRN pain #20 tabs 02/05/24 Unknown Rx ondansetron 4 mg disintegrating 4 mg PO Q8H PRN PRN Nausea #10 tabs 02/05/24 Unknown Rx tablet Allergy/AdvReac Type Severity Reaction Status Date / Time Penicillins (PCN) Allergy Unknown Verified 02/05/24 11:10 Surgical History History of laparoscopic cholecystectomy Hx of cystoscopy Hx of dilation and curettage Hx of tooth extraction Hx of varicose vein stripping S/P tubal ligation Status post hysteroscopic ablation of endometrium (~09/29/23) Social History current occupational status: employed 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 Respiratory: Negative for shortness of breath. GI: Positive for nausea. No vomiting. Neuro: Positive for headache. Skin: Negative for wound. EXAM <JAYE Villareal - Last Filed: 02/05/24 12:10> Physical Exam Narrative Exam Narrative: CONST: Patient sitting in no acute distress. EYES: Normal inspection. PERRL, EOMI. ENT: Head normocephalic atraumatic, no raccoon eyes or mei sign, no hemotympanum, no nasal septal hematoma, no CSF otorrhea or rhinorrhea. NECK: Normal inspection. No midline spinal tenderness, no step off or crepitus. RESP: No respiratory distress, CTAB. Chest wall nontender. CVS: Regular rate and rhythm, no murmur, no gallop. ABD: Soft and nontender, no guarding or rebound, nondistended. Back: Normal inspection, no midline tenderness. SKIN: Color normal, no rash, warm, dry, intact. EXTREMITIES: Normal appearance, full range of motion upper and lower extremities, tender palpation over the right shoulder with no deformity or crepitus. 2+ radial and DP pulses. NEURO: Alert and answering questions appropriately. PSYCH: Normal affect. Const Vital Signs: 02/05/24 11:09 02/05/24 11:30 02/05/24 12:22 Temperature 97.1 F L 97.6 F L Temperature Source Temporal Pulse Rate 65 58 L Respiratory Rate 14 16 Respiratory Effort Normal Respiratory Depth Normal Respiratory Pattern Normal Blood Pressure 143/73 H 112/73 Blood Pressure Mean 96 86 Pulse Ox 98 99 Oxygen Delivery Method Room Air Room Air <Dr. Jasen Ortiz MD - Last Filed: 02/05/24 13:37> Physical Exam Const Vital Signs: 02/05/24 11:09 02/05/24 11:30 02/05/24 12:22 Temperature 97.1 F L 97.6 F L Temperature Source Temporal Pulse Rate 65 58 L Respiratory Rate 14 16 Respiratory Effort Normal Respiratory Depth Normal Respiratory Pattern Normal Blood Pressure 143/73 H 112/73 Blood Pressure Mean 96 86 Pulse Ox 98 99 Oxygen Delivery Method Room Air Room Air MDM <JAYE Villareal - Last Filed: 02/05/24 12:10> [facility] Narrative Medical decision making narrative: Test considered but not ordered: Patient has no external signs of head trauma and is neurologically intact, she does not require CT imaging according to the Indonesian CT head rule and Nexus criteria. I have personally performed a face to face assessment of the patient and have reviewed the MARYCARMEN Note. I performed a substantive portion of the visit including all aspects of the following. My israel findings include: History is remarkable for fall. She was on a 4 step ladder. She was trimming branches. She fell because the ladder apparently collapsed. She landed on the right side. She did not hit her head. She not have loss of conscious. She states she feels a little different. She is on no antithrombotic or anticoagulant. She denies paresthesia, anesthesia or motor weakness upper or lower extremity. She denies neck pain. She denies shortness of breath or chest pain. Patient not urinated since this happened. Patient complains of pain predominantly right shoulder region. Exam is without evidence of basilar skull fracture. There is no contusion. There is no abrasion noted. Pupils equal round reactive. Extraocular is intact. Sclera is anicteric. There is no nystagmus. Funduscopic exam reveals normal cup-to-disc ratio. There is no papilledema. Venous pulsations noted bilaterally. Trachea is midline. There is no midline posterior neck pain. Alert oriented x 3. There is no dysmetria. Motor or sensory intact. DTRs are 2+ bicep, brachialis, tricep, patella and ankle. Patient has no clonus. Patient does have pain ovation over the proximal humerus. She is right-hand dominant. There is no pain the patient of the lateral medial epicondyle, lateral process or radial head with supination pronation. There is no pain the patient with distal radius, carpal bones or metacarpal bones. There is no evidence of trauma to the thumb or fingers. Radial pulses 2+. Medical Decision Making based on the Indonesian CT head rule imaging of the head is not indicated. Patient has had a concussion. Will discharge with appropriate instructions as far as prevention of any head trauma until is asymptomatic. Will obtain x-ray of the shoulder to rule out contusion versus fracture. Of note there was no significant point tenderness over the AC joint nor was there any pain to palpation over the clavicle. Axillary, median, radial and ulnar function are intact. Other additions or changes: [None] Radiography Diagnostic Testing: Clinical Impression(s) from Imaging Studies Shoulder X-Ray 02/05/24 11:23 IMPRESSION: Calcific tendinitis of the right shoulder. Electronically Signed: Skip Molina MD at 12:07 EDT , ED attending interpretation of right shoulder shows no fracture or dislocation. <Dr. Jasen Ortiz MD - Last Filed: 02/05/24 13:37> [facility] Narrative Medical decision making narrative: I have personally performed a face to face assessment of the patient and have reviewed the MARYCARMEN Note. I performed a substantive portion of the visit including all aspects of the following. My israel findings include: History is remarkable for fall. She was on a 4 step ladder. She was trimming branches. She fell because the ladder apparently collapsed. She landed on the right side. She did not hit her head. She not have loss of conscious. She states she feels a little different. She is on no antithrombotic or anticoagulant. She denies paresthesia, anesthesia or motor weakness upper or lower extremity. She denies neck pain. She denies shortness of breath or chest pain. Patient not urinated since this happened. Patient complains of pain predominantly right shoulder region. Exam is without evidence of basilar skull fracture. There is no contusion. There is no abrasion noted. Pupils equal round reactive. Extraocular is intact. Sclera is anicteric. There is no nystagmus. Funduscopic exam reveals normal cup-to-disc ratio. There is no papilledema. Venous pulsations noted bilaterally. Trachea is midline. There is no midline posterior neck pain. Alert oriented x 3. There is no dysmetria. Motor or sensory intact. DTRs are 2+ bicep, brachialis, tricep, patella and ankle. Patient has no clonus. Patient does have pain ovation over the proximal humerus. She is right-hand dominant. There is no pain the patient of the lateral medial epicondyle, lateral process or radial head with supination pronation. There is no pain the patient with distal radius, carpal bones or metacarpal bones. There is no evidence of trauma to the thumb or fingers. Radial pulses 2+. Medical Decision Making based on the Indonesian CT head rule imaging of the head is not indicated. Patient has had a concussion. Will discharge with appropriate instructions as far as prevention of any head trauma until is asymptomatic. Will obtain x-ray of the shoulder to rule out contusion versus fracture. Of note there was no significant point tenderness over the AC joint nor was there any pain to palpation over the clavicle. Axillary, median, radial and ulnar function are intact. Other additions or changes: [None] Radiography Chest X-Ray - ED: Read by ED Physician (3 view of the right shoulder was obtained. There is osteophyte calcification insertions of the supraspinatus tendon on the humerus. There is no Insa fracture, subluxation or dislocation. There is improved reviewed interpreted by ma at 1140.) Diagnostic Testing: Clinical Impression(s) from Imaging Studies Shoulder X-Ray 02/05/24 11:23 IMPRESSION: Calcific tendinitis of the right shoulder. Electronically Signed: Skip Molina MD at 12:07 EDT Reading Location ID and State: [facility] / [place] Tel , Service support , Discharge Plan Triage Chief Complaint: Head Injury ED Midlevel Provider: Perla Flower ED Provider: Jasen Ortiz Dx/Rx/DC Orders Clinical Impression: Closed head injury, Contusion of right shoulder, Concussion, Fall on and from ladder causing accidental injury Instructions: After a Concussion, Bruises (Contusions) Prescriptions: New ondansetron 4 mg tablet,disintegrating 4 mg PO Q8H PRN PRN (Reason: Nausea) Qty: 10 0RF naproxen [Naprosyn] 500 mg tablet 500 mg PO BID PRN (Reason: pain) Qty: 20 0RF No Action bupropion HCl 75 mg tablet 75 mg PO DIRECTED Rx Instructions: 2 tab in am, 1 tab in pm cholecalciferol (vitamin D3) 125 mcg (5,000 unit) capsule 125 mcg PO DAILY Qsymia 11.25-69 mg capsule, ER multiphase 24 hr 1 cap PO DAILY naproxen 500 MG tablet 500 mg PO BID PRN PRN (Reason: Pain Score 4-10/10) Qty: 20 0RF chlorthalidone 25 MG tablet 25 mg PO DAILY lorazepam 0.5 MG tablet 0.5 mg PO DAILY PRN PRN (Reason: Anxiety) hydroxychloroquine [Plaquenil] 200 mg tablet 300 mg PO DAILY trazodone 50 mg tablet 50 mg PO QHS Patient Comments: Take 1-2 tablets by mouth daily at bedtime. Primary Care Provider: Hilton Doty Referrals: Hilton Doty DO [Primary Care Provider] - Activity Restrictions/Additional Instructions: Ice painful areas, take naproxen as needed. Print Language: Bulgarian Disposition Disposition: Home, Self Care Discharge Date/Time: 02/05/24 12:24
--- NOTE | 2024-02-05 11:23 | RAD_ITS ---
INDICATION: pain EXAMINATION/TECHNIQUE: X-RAY - RIGHT XR Shoulder Min 2 Views 4 VIEWS COMPARISON: No relevant prior comparison study available FINDINGS: SOFT TISSUES: Soft tissue calcification lateral to the humerus consistent with calcific tendinitis. No radiopaque foreign body. BONES/JOINTS: No acute fracture or subluxation.. Normal alignment. Preservation of the joint space.. No sclerotic or destructive changes observed. RAD/Shoulder min 2 Views IMPRESSION: Calcific tendinitis of the right shoulder. Electronically Signed: Skip Molina MD at 12:07 EDT ,
[2024-02-05] MEDS: Ondansetron ODT 4 MG Tablet PO (11:25)
[2024-02-05] MEDS: Naproxen 500 MG Tablet PO (11:25)
[2024-02-05 12:22] VITALS: BP 112/73; PULSE 58; RESP 16; TEMP 36.4; O2SAT 99
== END 2024-02-05 12:24 | disposition home or self-care (01) ==
PROVIDERS: Emergency Provider Emergency Medicine; PCP Student in an Organized Health Care Education/Training Program; Visit Provider Emergency Medicine
DX: S40.011A Contusion of right shoulder, initial encounter (principal); S06.0X0A Concussion without loss of consciousness, initial encounter; Z87.891 Personal history of nicotine dependence; W11.XXXA Fall on and from ladder, initial encounter
CPT/HCPCS: 73030; 99283

== ENCOUNTER 2024-04-04 10:51 | Emergency (ER) | payer OTHER, SELFPAY ==
[2024-04-04 10:52] VITALS: BP 130/86; PULSE 67; RESP 14; TEMP 36.6; O2SAT 100; BMI 30.2
--- NOTE | 2024-04-04 11:18 | EKG12_ITS ---
Test Reason : CP Blood Pressure : / mmHG Vent. Rate : 067 BPM Atrial Rate : 067 BPM P-R Int : 150 ms QRS Dur : 112 ms QT Int : 426 ms P-R-T Axes : 066 072 053 degrees QTc Int : 450 ms Normal sinus rhythm with sinus arrhythmia Normal ECG Confirmed by GOMEZ ADKINS, HARITHA ([id number]), proposal editor MADDIE BLANCO ([id number]) on 04/05/2024 1:13:27 PM Referred By: BB/TB Confirmed By:HARITHA DYER MD
--- NOTE | 2024-04-04 11:19 | EDS_ITS ---
HPI History of Present Illness Chief Complaint: Chest Pain Informant: patient Narrative Narrative: Patient spontaneous onset gradually bilateral anterior chest pain that started yesterday. She states today it is only on the left side and not the right. She states it hard to take a deep breath because taking a deep breath makes the pain worse, and has noticed that it is more comfortable to have her bra on. She is not frankly dyspneic feeling her breathing is abnormal because of the pain. She does not have any leg pain or swelling or history of DVT or PE but she states she has a history of varicose veins. No recent long travel or immobilization hospitalization or surgery. She denies any cough or hemoptysis. No fevers or chills. She states that she noticed it more with exertion today and when she was doing activities like folding laundry. She states she was doing a lot of work outside gardening/[employer] yesterday and other days. [facility] Medical History Wears dentures Wears glasses Anxiety Rheumatoid arthritis Arthritis Kidney stones Former smoker History of edema History of ureteral stone Home Medications ?Medication ?Instructions ?Recorded ?Last Taken ?Type naproxen 500 mg tablet 500 mg PO BID PRN PRN Pain Score 11/25/19 Unknown Rx -05/12 #20 tabs chlorthalidone 25 mg tablet 25 mg PO DAILY 03/12/20 09/28/23 History lorazepam 0.5 mg tablet 0.5 mg PO DAILY PRN PRN Anxiety 03/12/20 Unknown History bupropion HCl 75 mg tablet 75 mg PO DIRECTED 09/24/23 09/28/23 19:30 History cholecalciferol (vitamin D3) 125 125 mcg PO DAILY 09/24/23 09/28/23 History mcg (5,000 unit) capsule phentermine 11.25 mg-topiramate ER 1 cap PO DAILY 09/24/23 09/28/23 12:40 History 69 mg capsule,[id number] mphas (Qsymia) hydroxychloroquine 200 mg tablet 300 mg PO DAILY 09/25/23 09/28/23 19:30 History (Plaquenil) trazodone 50 mg tablet 50 mg PO QHS 09/25/23 09/27/23 History naproxen 500 mg tablet (Naprosyn) 500 mg PO BID PRN pain #20 tabs 02/05/24 Unknown Rx ondansetron 4 mg disintegrating 4 mg PO Q8H PRN PRN Nausea #10 tabs 02/05/24 Unknown Rx tablet potassium chloride 20 mEq 20 meq PO BID #6 tabs 04/04/24 Unknown Rx tablet,extended release Allergy/AdvReac Type Severity Reaction Status Date / Time Penicillins (PCN) Allergy Unknown Verified 04/04/24 10:51 Surgical History History of laparoscopic cholecystectomy Hx of cystoscopy Hx of dilation and curettage Hx of tooth extraction Hx of varicose vein stripping S/P tubal ligation Status post hysteroscopic ablation of endometrium (~09/29/23) Social History current occupational status: employed 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 Smoking Status: Former smoker alcohol intake: never substance use type: does not use seatbelt use: always do you feel safe at home: Yes ROS ROS ED Constitutional Constitutional ED: Denies chills or fever(s) Eyes Eyes: Denies change in vision or diplopia ENT ENT ED: Denies rhinorrhea or sore throat Cardiovascular Cardiovascular: Reports as per HPI and chest pain; Denies palpitations Respiratory/Chest Respiratory/Chest: Denies cough or dyspnea Gastrointestinal Gastrointestinal: Denies abdominal pain, diarrhea, nausea or vomiting Genitourinary Genitourinary ED: Denies dysuria or hematuria Musculoskeletal Musculoskeletal: Denies back pain or neck pain Integumentary Denies abscess or rash Neurologic Neurologic: Denies headache(s), paresthesias or weakness Psychiatric Psychiatric: Denies suicidal thoughts EXAM Physical Exam Const Vital Signs: 04/04/24 10:52 04/04/24 11:12 04/04/24 11:18 Temperature 98 F Temperature Source Temporal Pulse Rate 67 Respiratory Rate 14 Respiratory Effort Normal Non-Labored Blood Pressure 130/86 H Blood Pressure Mean 100 Pulse Ox 100 Oxygen Delivery Method Room Air Room Air 04/04/24 12:51 Temperature Temperature Source Pulse Rate 61 Respiratory Rate 16 Respiratory Effort Blood Pressure 110/68 Blood Pressure Mean 82 Pulse Ox 98 Oxygen Delivery Method Room Air Positive well nourished and well developed General Appearance ED: well developed and NAD HEENT Reports moist mucous membranes normocephalic and atraumatic Eyes PERRL and EOMs intact bilaterally Neck full ROM and supple Chest Wall inspection of chest normal Chest: tenderness rib 6th rib (left inframammary; no crepitance or SQ emphysema) Resp normal respiratory effort and clear to auscultation bilaterally Cardio regular rate, regular rhythm and no murmurs GI non-tender and non-distended Auscultation: normoactive bowel sounds Palpation: soft Back/Spine no CVA tenderness General Back: other FROM Extremity normal to inspection General Extremety ED: Negative for edema, pulses abnormal or tenderness General Extremity: Negative for edema or pulses abnormal Neuro oriented x3, CN's II-XII intact bilaterally and no sensory deficits noted Sensorium / Orientation: awake and alert Motor Exam: strength 5/5 throughout Skin no rashes or lesions noted and no wounds Heart Score History: Slightly/Non-Suspicious ECG: Normal Age: </= 45 years Risk Factors: 1 or 2 Risk Factors Troponin: </= Normal Limit Score: 1 MDM MDM MDM Narrative Medical decision making narrative: Patient has a PERC score of 0, given that no further workup is needed in order to rule out pulmonary embolus acutely here. Her discomfort is reproducible with palpation on one of her inframammary ribs. She does not have a rash or any lesions to suggest zoster, although as I discussed with her that is possible if the rash comes on later but less likely here because she had pain bilaterally yesterday. I think chest wall etiology is likely, workup was directed at ruling out cardiac etiologies as well as pneumothorax or obvious rib fracture with a two-view chest x-ray which on my interpretation is normal. Her labs are normal except for potassium which is 2.7, probably low because of the diuretic she takes. I will give her 40 of p.o. potassium chloride here as well as a prescription for several days worth of twice daily potassium supplementation, advised her to follow-up as an outpatient. She has Naprosyn at home, Toradol really helped her here, all more consistent with chest wall etiology, although we talked about pleurisy being in the differential as well. Lab Data Attestation: I reviewed the patient's lab results. Labs: Laboratory Results - last 24 hr 04/04/24 11:25 WBC 6.2 RBC 4.56 Hgb 13.6 Hct 40.8 MCV 89.5 MCH 29.8 MCHC 33.3 RDW Std Deviation 44.9 H RDW Coeff of Francisca 13.8 Plt Count 229 MPV 10.1 Immature Gran % (Auto) 0.300 Neut % (Auto) 54.0 Lymph % (Auto) 33.1 [place] % (Auto) 9.4 Eos % (Auto) 2.6 Baso % (Auto) 0.6 Absolute Neuts (auto) 3.3 Absolute Lymphs (auto) 2.04 Nucleated RBC % 0 Sodium 139 Potassium 2.7 L* Chloride 101 Carbon Dioxide 33.0 H Anion Gap 5 BUN 15 Creatinine 0.85 Estim Creat Clear Calc 95.95 Est GFR (MDRD) Af Amer 94 Est GFR (MDRD) Non-Af 77 BUN/Creatinine Ratio 17.7 Glucose 96 Calcium 9.4 Troponin I High Sens 5 Radiography Diagnostic Testing: Clinical Impression(s) from Imaging Studies Chest X-Ray 04/04/24 12:00 IMPRESSION: No radiographic evidence of acute cardiopulmonary disease. Electronically Signed: Noel Tuttle DO at 12:22 EDT , Rhythm Strip Rhythm Strip: Sinus Rhythm Rate: 65 Ectopy: None EKG Initial EKG: Attestation: I personally reviewed and interpreted this EKG as follows: Interpretation: Sinus Rhythm and No Acute Injury Pattern Comments: nml EKG Discharge Plan Triage Chief Complaint: Chest Pain ED Provider: Ricki Del Rio Dx/Rx/DC Orders Clinical Impression: Left-sided chest wall pain, Hypokalemia due to excessive renal loss of potassium Instructions: ED Chest Pain, Noncardiac Prescriptions: New potassium chloride 20 mEq tablet extended release 20 meq PO BID Qty: 6 0RF No Action bupropion HCl 75 mg tablet 75 mg PO DIRECTED Rx Instructions: 2 tab in am, 1 tab in pm cholecalciferol (vitamin D3) 125 mcg (5,000 unit) capsule 125 mcg PO DAILY Qsymia 11.25-69 mg capsule, ER multiphase 24 hr 1 cap PO DAILY naproxen 500 MG tablet 500 mg PO BID PRN PRN (Reason: Pain Score 4-10/10) Qty: 20 0RF chlorthalidone 25 MG tablet 25 mg PO DAILY lorazepam 0.5 MG tablet 0.5 mg PO DAILY PRN PRN (Reason: Anxiety) hydroxychloroquine [Plaquenil] 200 mg tablet 300 mg PO DAILY trazodone 50 mg tablet 50 mg PO QHS Patient Comments: Take 1-2 tablets by mouth daily at bedtime. ondansetron 4 mg tablet,disintegrating 4 mg PO Q8H PRN PRN (Reason: Nausea) Qty: 10 0RF naproxen [Naprosyn] 500 mg tablet 500 mg PO BID PRN (Reason: pain) Qty: 20 0RF Primary Care Provider: Hilton Doty Referrals: Hilton Doty DO [Primary Care Provider] - 1 Week if not improving Print Language: Chinese Disposition Disposition: Home, Self Care
[2024-04-04 11:38] LABS: Absolute Lymphocyte Count 2.04 X10^3/uL (0.83-4.51); Absolute Neutrophil Count 3.3 X10^3/uL (2.0-7.7); Basophil# 0.04 X10^3/uL; Basophil% 0.6 % (0-1); Eosinophil# 0.16 X10^3/uL; Eosinophils% 2.6 % (0-5); Hematocrit 40.8 % (37-47); Hemoglobin 13.6 g/dL (12.0-15.0); Lymphocyte # 2.04 X10^3/ul (0.83-4.51); Lymphocyte % 33.1 % (19-41); Mean Corp Hgb Conc 33.3 g/dL (32-36); Mean Corpuscular Hgb 29.8 pg (27.0-32.0); Mean Corpuscular Volume 89.5 fL (81-99); Mean Platelet Vol. 10.1 fl (6.2-12.0); Monocyte# 0.58 X10^3/uL; Monocyte% 9.4 % (0-10); NRBC Flagged by Analyzer 0 % (0-5); Neutrophil # 3.32 X10^3/uL (2.7-7.7); Platelet Count 229 K/mm3 (150-450); RBC Distribution Width CV 13.8 % (11.6-14.6); RBC Distribution Width SD 44.9 fl (35.1-43.9); Red Blood Count 4.56 M/mm3 (4.2-5.4); White Blood Count 6.2 K/mm3 (4.4-11.0)
[2024-04-04] MEDS: Ketorolac 30 MG/ML Syringe IV (11:39)
--- NOTE | 2024-04-04 12:00 | RAD_ITS ---
EXAM: XR CHEST, 2 VIEWS CLINICAL INDICATION: chest pain L TECHNIQUE: Frontal and lateral views of the chest. COMPARISON: 03/12/2020 FINDINGS: LUNGS AND PLEURAL SPACES: No significant abnormality. No consolidation or edema. No pneumothorax. No effusion. HEART: No significant abnormality. Cardiac silhouette not enlarged. MEDIASTINUM: Central airways and mediastinal contour are unremarkable. BONES/JOINTS: No significant abnormality. No acute fracture. SOFT TISSUES: No significant abnormality. RAD/Chest PA and Lateral IMPRESSION: No radiographic evidence of acute cardiopulmonary disease. Electronically Signed: Noel Tuttle DO at 12:22 EDT ,
[2024-04-04 12:12] LABS: Anion Gap 5 (5-15); BUN 15 mg/dL (7-18); BUN/Creat Ratio 17.7 RATIO (10-20); Calcium,Total 9.4 mg/dL (8.5-10.1); Chloride 101 mmol/L (98-107); Creatinine, Serum 0.85 mg/dL (0.55-1.02); EST Glomerular Filtration Rate 77 mL/min (>60); Est Glom Filt Rate - Afr Amer 94 mL/min (>60); Estimated Creatinine Clearance 95.95 ml/min; Glucose 96 mg/dL (74-106); Potassium 2.7 mmol/L (3.5-5.1); Sodium Level 139 mmol/L (136-145); Troponin-I HS 5 pg/mL (3.0-54.0)
[2024-04-04 12:51] VITALS: BP 110/68; PULSE 61; RESP 16; O2SAT 98
[2024-04-04] MEDS: Potassium Chloride Oral Tablet 20 MEQ 40 MEQ PO (13:40)
[2024-04-04 13:42] VITALS: BP 128/73; PULSE 62; RESP 16; TEMP 36.6; O2SAT 99
== END 2024-04-04 13:49 | disposition home or self-care (01) ==
PROVIDERS: Emergency Provider Emergency Medicine; PCP Student in an Organized Health Care Education/Training Program; Visit Provider Emergency Medicine
DX: R07.89 Other chest pain (principal); E87.6 Hypokalemia; Z87.891 Personal history of nicotine dependence
CPT/HCPCS: 71046; 80048; 84484; 85025; 93005; 96374; 96376; 99284; A4216

== ENCOUNTER → 2024-04-26 | Outpatient (CLI) | payer OTHER, SELFPAY ==
[2024-04-26 08:02] LABS: AST(SGOT) 16 U/L (15-37); Alanine Aminotransfer ALT/SGPT 16 U/L (13-56); Albumin, Serum 3.8 g/dL (3.2-5.0); Alkaline Phosphatase 93 U/L (45-117); Anion Gap 6 (5-15); BUN 14 mg/dL (7-18); BUN/Creat Ratio 13.7 RATIO (10-20); Calcium,Total 9.6 mg/dL (8.5-10.1); Chloride 101 mmol/L (98-107); Creatinine, Serum 1.02 mg/dL (0.55-1.02); EST Glomerular Filtration Rate 63 mL/min (>60); Est Glom Filt Rate - Afr Amer 76 mL/min (>60); Glucose 108 mg/dL (74-106); Lipase 21 U/L (13-75); Potassium 2.8 mmol/L (3.5-5.1); Protein, Total 7.8 g/dL (6.4-8.2); Sodium Level 139 mmol/L (136-145)
[2024-04-26 08:23] LABS: Vitamin B12 466 pg/mL (211-911); Vitamin D,25 Hydroxy 76.2 ng/mL
[2024-04-26 13:20] LABS: Absolute Lymphocyte Count 2.27 X10^3/uL (0.83-4.51); Absolute Neutrophil Count 3.3 X10^3/uL (2.0-7.7); Basophil# 0.02 X10^3/uL; Basophil% 0.3 % (0-1); Eosinophil# 0.06 X10^3/uL; Hematocrit 42.2 % (37-47); Hemoglobin 14.1 g/dL (12.0-15.0); Lymphocyte # 2.27 X10^3/ul (0.83-4.51); Lymphocyte % 37.3 % (19-41); Mean Corp Hgb Conc 33.4 g/dL (32-36); Mean Corpuscular Hgb 29.8 pg (27.0-32.0); Mean Corpuscular Volume 89.2 fL (81-99); Mean Platelet Vol. 9.9 fl (6.2-12.0); Monocyte% 6.6 % (0-10); NRBC Flagged by Analyzer 0 % (0-5); Neutrophil # 3.32 X10^3/uL (2.7-7.7); Neutrophil % 54.6 % (47-70); Platelet Count 274 K/mm3 (150-450); RBC Distribution Width CV 13.2 % (11.6-14.6); RBC Distribution Width SD 43.2 fl (35.1-43.9); Red Blood Count 4.73 M/mm3 (4.2-5.4); White Blood Count 6.1 K/mm3 (4.4-11.0)
== END | disposition home or self-care (01) ==
PROVIDERS: PCP Student in an Organized Health Care Education/Training Program; Referring Provider Student in an Organized Health Care Education/Training Program; Visit Provider Student in an Organized Health Care Education/Training Program
DX: R06.02 Shortness of breath (principal); R11.0 Nausea; E87.6 Hypokalemia; R53.83 Other fatigue
CPT/HCPCS: 36415; 80053; 82306; 82607; 83690; 84443; 85025

== ENCOUNTER → 2024-04-30 | Outpatient (CLI) | payer OTHER, SELFPAY ==
[2024-04-30 09:10] LABS: Potassium 3.4 mmol/L (3.5-5.1)
== END | disposition home or self-care (01) ==
PROVIDERS: PCP Student in an Organized Health Care Education/Training Program; Referring Provider Student in an Organized Health Care Education/Training Program; Visit Provider Student in an Organized Health Care Education/Training Program
DX: E87.6 Hypokalemia (principal)
CPT/HCPCS: 36415; 84132

== ENCOUNTER → 2024-09-21 | Outpatient (CLI) | payer OTHER, SELFPAY | END | disposition home or self-care (01) | LOC: CVS 07:56 | PROVIDERS: PCP Student in an Organized Health Care Education/Training Program; Referring Provider Physician Assistant; Visit Provider Physician Assistant | DX: I87.2 Venous insufficiency (chronic) (peripheral) (principal); I83.899 Varicose veins of unspecified lower extremity with other complications | CPT/HCPCS: 93970 ==

== ENCOUNTER → 2024-09-22 | Outpatient (CLI) | payer OTHER, SELFPAY ==
[2024-09-22 17:39] LABS: Absolute Lymphocyte Count 1.27 X10^3/uL (0.83-4.51); Absolute Neutrophil Count 3.9 X10^3/uL (2.0-7.7); Basophil# 0.03 X10^3/uL; Basophil% 0.5 % (0-1); Eosinophil# 0.07 X10^3/uL; Eosinophils% 1.2 % (0-5); Hematocrit 42.1 % (37-47); Hemoglobin 14.2 g/dL (12.0-15.0); Lymphocyte # 1.27 X10^3/ul (0.83-4.51); Lymphocyte % 21.3 % (19-41); Mean Corp Hgb Conc 33.7 g/dL (32-36); Mean Corpuscular Hgb 30.1 pg (27.0-32.0); Mean Corpuscular Volume 89.2 fL (81-99); Mean Platelet Vol. 9.5 fl (6.2-12.0); Monocyte# 0.73 X10^3/uL; Monocyte% 12.2 % (0-10); NRBC Flagged by Analyzer 0 % (0-5); Neutrophil # 3.85 X10^3/uL (2.7-7.7); Neutrophil % 64.5 % (47-70); Platelet Count 207 K/mm3 (150-450); RBC Distribution Width SD 42.7 fl (35.1-43.9); Red Blood Count 4.72 M/mm3 (4.2-5.4)
[2024-09-22 18:31] LABS: ALB/GLOB Ratio 0.9 RATIO (0.9-2.4); AST(SGOT) 15 U/L (15-37); Alanine Aminotransfer ALT/SGPT 22 U/L (13-56); Albumin, Serum 3.8 g/dL (3.2-5.0); Alkaline Phosphatase 83 U/L (45-117); Anion Gap 6 (5-15); BUN 12 mg/dL (7-18); BUN/Creat Ratio 15.1 RATIO (10-20); CRP 5.87 mg/L (0.0-3.0); Calcium,Total 9.4 mg/dL (8.5-10.1); Chloride 101 mmol/L (98-107); EST Glomerular Filtration Rate 83 mL/min (>60); Est Glom Filt Rate - Afr Amer 101 mL/min (>60); Globulin 4.1 g/dL (2.2-4.2); Glucose 101 mg/dL (74-106); Potassium 3.8 mmol/L (3.5-5.1); Protein, Total 7.9 g/dL (6.4-8.2); Sodium Level 136 mmol/L (136-145)
== END | disposition home or self-care (01) ==
LOC: LAB 17:12
PROVIDERS: PCP Student in an Organized Health Care Education/Training Program; Referring Provider Student in an Organized Health Care Education/Training Program; Visit Provider Student in an Organized Health Care Education/Training Program
DX: E87.6 Hypokalemia (principal); M06.4 Inflammatory polyarthropathy
CPT/HCPCS: 36415; 80053; 84443; 85025; 86140

== ENCOUNTER → 2024-09-26 | Outpatient (CLI) | payer OTHER, SELFPAY ==
--- NOTE | 2024-09-26 08:01 | BI_ITS ---
PROCEDURE: SCRN MAMM (CAD)W/KYMBERLY BILAT REASON FOR EXAM: F, Age 44 y/o, routine follow-up. Aunt with breast cancer. TECHNIQUE: Bilateral screening digital breast tomosynthesis with 2D and 3D images. Computer aided detection. COMPARISON: Prior exam(s) dating back to June 09, 2023.. FINDINGS: The breasts are heterogeneously dense which may obscure small masses. Stable benign-appearing bilateral axillary lymph nodes. No suspicious masses, areas of developing architectural distortion, or suspicious calcifications. BI/SCRN MAMM (CAD)W/KYMBERLY BILAT IMPRESSION: BI-RADS 2: BENIGN. RECOMMEND ANNUAL MAMMOGRAPHIC SCREENING. Follow-up code: Routine Follow-up The patient will be notified of the results by letter. Reading Location: [id number]
== END | disposition home or self-care (01) ==
LOC: OPBI 08:00
PROVIDERS: PCP Student in an Organized Health Care Education/Training Program; Referring Provider Nurse Practitioner Women's Health; Visit Provider Nurse Practitioner Women's Health
DX: Z12.31 Encounter for screening mammogram for malignant neoplasm of breast (principal); Z80.3 Family history of malignant neoplasm of breast
CPT/HCPCS: 77063; 77067

== ENCOUNTER 2024-10-13 17:14 | Emergency (ER) | payer OTHER, SELFPAY ==
[2024-10-13] VITALS (13 sets, daily range): BP systolic 113–129; BP diastolic 68–87; PULSE 66–87; RESP 15–23; TEMP 36.4–36.6; O2SAT 96–100; BMI 30.2
--- NOTE | 2024-10-13 18:38 | EKG12_ITS ---
Test Reason : Blood Pressure : */* mmHG Vent. Rate : 75 BPM Atrial Rate : 75 BPM P-R Int : 146 ms QRS Dur : 108 ms QT Int : 418 ms P-R-T Axes : 68 86 75 degrees QTcB Int : 466 ms Normal sinus rhythm Normal ECG Confirmed by RODERICK ADKINS, LUCIANO ([id number]), copy editor RODOLFO PIEDRA ([id number]) on 10/17/2024 10:48:12 AM Referred By: Charlie Lombardo Confirmed By: LUCIANO VAUGHN MD
--- NOTE | 2024-10-13 18:46 | ED.VIS.DYS ---
HPI History of Present Illness Chief Complaint: Shortness of Breath Informant: patient Narrative Narrative: Presents with progressive dyspnea over the past 3 months. Yesterday had chest pain on the right side. No cough. No recent travel or surgeries. No history of PE or DVT. History of varicose veins. She saw her PCP with symptoms started was told she need to see her vascular doctor. She did follow-up with the vascular team states she had ultrasounds negative for DVT. However reported additional testing was required. She does not smoke. Denies family history of MIs young age. Admits hypertension, hyperlipidemia or diabetes. PE Risk Factors: Negative for Cancer, OCP + Smoking + > 35, Prior DVT or PE, Recent immobilization, Recent surgery or Recent travel Prior similar symptoms: No PFSH PFSH Medical History Status post hysteroscopy COVID-19 Wears dentures Wears glasses Anxiety Rheumatoid arthritis Arthritis Kidney stones Former smoker History of edema History of ureteral stone Home Medications ?Medication ?Instructions ?Recorded ?Last Taken ?Type naproxen 500 mg tablet 500 mg PO BID PRN PRN Pain Score 11/25/19 Unknown Rx -05/12 #20 tabs chlorthalidone 25 mg tablet 25 mg PO DAILY 03/12/20 09/28/23 History lorazepam 0.5 mg tablet 0.5 mg PO DAILY PRN PRN Anxiety 03/12/20 Unknown History bupropion HCl 75 mg tablet 75 mg PO DIRECTED 09/24/23 09/28/23 19:30 History cholecalciferol (vitamin D3) 125 125 mcg PO DAILY 09/24/23 09/28/23 History mcg (5,000 unit) capsule phentermine 11.25 mg-topiramate ER 1 cap PO DAILY 09/24/23 09/28/23 12:40 History 69 mg capsule,[id number] mphas (Qsymia) hydroxychloroquine 200 mg tablet 300 mg PO DAILY 09/25/23 09/28/23 19:30 History (Plaquenil) trazodone 50 mg tablet 50 mg PO QHS 09/25/23 09/27/23 History naproxen 500 mg tablet (Naprosyn) 500 mg PO BID PRN pain #20 tabs 02/05/24 Unknown Rx ondansetron 4 mg disintegrating 4 mg PO Q8H PRN PRN Nausea #10 tabs 02/05/24 Unknown Rx tablet potassium chloride 20 mEq 20 meq PO BID #6 tabs 04/04/24 Unknown Rx tablet,extended release dexamethasone 6 mg tablet 6 mg PO DAILY #5 tabs 05/26/24 Unknown Rx Allergy/AdvReac Type Severity Reaction Status Date / Time Penicillins (PCN) Allergy Severe Anaphylaxis Verified 10/13/24 17:17 Surgical History Status post hysteroscopic ablation of endometrium (~09/29/23) Hx of varicose vein stripping Hx of cystoscopy Hx of dilation and curettage Hx of tooth extraction History of laparoscopic cholecystectomy S/P tubal ligation Social History current occupational status: employed 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 Smoking Status: Former smoker alcohol intake: never substance use type: does not use seatbelt use: always do you feel safe at home: Yes ROS ROS ED Constitutional Constitutional ED: Denies chills, fever(s) or sweats ENT ENT ED: Denies sore throat Cardiovascular Cardiovascular: Reports chest pain; Denies leg edema, palpitations or racing heartbeat Respiratory/Chest Respiratory/Chest: Reports dyspnea and dyspnea on exertion; Denies cough Gastrointestinal Gastrointestinal: Denies abdominal pain, diarrhea, nausea or vomiting Genitourinary Genitourinary ED: Denies dysuria, hematuria or urinary frequency Musculoskeletal Musculoskeletal: Denies back pain, extremity pain or neck pain Integumentary Denies rash or wounds Neurologic Neurologic: Denies headache(s), paresthesias or weakness EXAM Physical Exam Const Vital Signs: 10/13/24 17:15 10/13/24 18:37 10/13/24 19:02 Temperature 97.6 F L Temperature Source Temporal Pulse Rate 87 78 Respiratory Rate 16 15 Respiratory Effort Normal Non-Labored Respiratory Depth Normal Respiratory Pattern Normal Blood Pressure 117/87 H 129/76 H Blood Pressure Mean 97 93 Pulse Ox 100 100 Oxygen Delivery Method Room Air Room Air 10/13/24 20:00 10/13/24 20:13 10/13/24 20:15 Temperature Temperature Source Pulse Rate 72 69 66 Respiratory Rate 18 23 H 21 H Respiratory Effort Respiratory Depth Respiratory Pattern Blood Pressure 122/72 H 113/72 Blood Pressure Mean 88 84 Pulse Ox 96 100 100 Oxygen Delivery Method Room Air 10/13/24 20:30 10/13/24 20:45 10/13/24 21:00 Temperature Temperature Source Pulse Rate 76 68 71 Respiratory Rate 19 H 19 H 15 Respiratory Effort Respiratory Depth Respiratory Pattern Blood Pressure 116/68 120/73 115/74 Blood Pressure Mean 82 87 85 Pulse Ox 100 100 Oxygen Delivery Method 10/13/24 21:15 10/13/24 21:30 10/13/24 22:00 Temperature Temperature Source Pulse Rate 82 75 70 Respiratory Rate 19 H 16 18 Respiratory Effort Respiratory Depth Respiratory Pattern Blood Pressure 125/85 H 121/76 H 117/74 Blood Pressure Mean 95 87 88 Pulse Ox 100 100 100 Oxygen Delivery Method 10/13/24 22:35 Temperature 97.8 F Temperature Source Pulse Rate 71 Respiratory Rate 16 Respiratory Effort Respiratory Depth Respiratory Pattern Blood Pressure 113/68 Blood Pressure Mean 83 Pulse Ox 99 Oxygen Delivery Method Positive well nourished and well developed General Appearance ED: well developed and NAD HEENT Reports moist mucous membranes normocephalic and atraumatic Eyes General Eye ED: Yes normal appearance of both eyes Neck full ROM Chest Wall Chest: Negative for tenderness Resp normal respiratory effort and normal air movement Effort and Inspection: symmetric chest movement; Negative for respiratory distress Cardio regular rate, regular rhythm and no murmurs Peripheral Pulses: pulses 2+ throughout GI normal to inspection, nondistended, normoactive bowel sounds and non-tender Palpation: Negative for guarding or rebound tenderness present Extremity normal to inspection General Extremety ED: Negative for edema or tenderness General Extremity: Negative for edema Neuro oriented x3 and no sensory deficits noted Sensorium / Orientation: awake and alert Skin no rashes or lesions noted and no wounds MDM MDM MDM Narrative Medical decision making narrative: Interventions / MDM: Differential diagnosis: Atypical chest pain. Diagnosis considered but do not suspect: Pulmonary embolus however D-dimer negative. ACS however EKG cardiac workup negative troponin x 2. My EKG interpretation: Sinus rate of 75, no ST or T wave changes. Imaging independently reviewed and interpreted by myself: 2 view chest x-ray: No acute process. External documents reviewed: N/A Test considered but not ordered:N/A ED course: Vital signs stable. Progressive dyspnea chest pains yesterday. Cardiac workup including D-dimer. 2134: Initial troponin negative D-dimer negative. Chest x-ray ordered for further evaluation. Chest x-ray negative. Patient reassured on findings. Reviewed her ultrasound lower extremity from last month negative for DVT. Discussed with patient outpatient follow-up with her PCP further testing with her symptoms. Her vitals are stable. Pulse ox 99 on room air. All questions were answered. Re-evaluation: stable Disposition discussed with patient/family/significant other: Patient Case discussed with consulting clinician: N/A This note was generated with [employer] dictation software. It may contain incorrect words, spelling, and punctuation that were not noted in checking the note before signing. Lab Data Attestation: I reviewed the patient's lab results. Labs: Laboratory Results - last 24 hr 10/13/24 10/13/24 10/13/24 18:56 20:35 20:52 WBC 7.6 RBC 4.84 Hgb 14.5 Hct 43.5 MCV 89.9 MCH 30.0 MCHC 33.3 RDW Std Deviation 43.6 RDW Coeff of Francisca 13.2 Plt Count 243 MPV 10.2 Immature Gran % (Auto) 0.300 Neut % (Auto) 59.0 Lymph % (Auto) 30.6 [place] % (Auto) 8.4 Eos % (Auto) 1.3 Baso % (Auto) 0.4 Absolute Neuts (auto) 4.5 Absolute Lymphs (auto) 2.32 Nucleated RBC % 0 Differential Comment SCANNED D-Dimer Quant (PE/DVT) < 0.27 L Sodium 136 Potassium 3.6 Chloride 99 Carbon Dioxide 23.6 Anion Gap 14 BUN 13 Creatinine 0.89 Estim Creat Clear Calc 88.51 Est GFR (MDRD) Non-Af 82 BUN/Creatinine Ratio 14.3 Glucose 92 Calcium 9.8 Troponin T High Sens < 6 Troponin T Hi Sens 2 Hr 6 Urine Test Negative Radiography Diagnostic Testing: Clinical Impression(s) from Imaging Studies Chest X-Ray 10/13/24 21:40 IMPRESSION: No acute pulmonary disease. Reading Location: [id number] Discharge Plan Triage Chief Complaint: Shortness of Breath ED Provider: Charlie Lombardo Dx/Rx/DC Orders Clinical Impression: Chest pain, Dyspnea Instructions: ED Chest Pain, Uncertain Cause, ED Dyspnea Prescriptions: No Action bupropion HCl 75 mg tablet 75 mg PO DIRECTED Rx Instructions: 2 tab in am, 1 tab in pm cholecalciferol (vitamin D3) 125 mcg (5,000 unit) capsule 125 mcg PO DAILY Qsymia 11.25-69 mg capsule, ER multiphase 24 hr 1 cap PO DAILY dexamethasone 6 mg tablet 6 mg PO DAILY Qty: 5 0RF naproxen 500 MG tablet 500 mg PO BID PRN PRN (Reason: Pain Score 4-10/10) Qty: 20 0RF chlorthalidone 25 MG tablet 25 mg PO DAILY lorazepam 0.5 MG tablet 0.5 mg PO DAILY PRN PRN (Reason: Anxiety) hydroxychloroquine [Plaquenil] 200 mg tablet 300 mg PO DAILY trazodone 50 mg tablet 50 mg PO QHS Patient Comments: Take 1-2 tablets by mouth daily at bedtime. ondansetron 4 mg tablet,disintegrating 4 mg PO Q8H PRN PRN (Reason: Nausea) Qty: 10 0RF naproxen [Naprosyn] 500 mg tablet 500 mg PO BID PRN (Reason: pain) Qty: 20 0RF potassium chloride 20 mEq tablet extended release 20 meq PO BID Qty: 6 0RF Primary Care Provider: Hilton Doty Referrals: Hilton Doty DO [Primary Care Provider] - 3-5 Days Activity Restrictions/Additional Instructions: Cardiac workup negative to ED. This included her D-dimer. Chest x-ray negative. Follow-up with your doctor for further testing. Print Language: Cameroonian Disposition Disposition: Home, Self Care Discharge Date/Time: 10/13/24 22:36
[2024-10-13 19:18] LABS: Absolute Lymphocyte Count 2.32 X10^3/uL (0.83-4.51); Absolute Neutrophil Count 4.5 X10^3/uL (2.0-7.7); Basophil# 0.03 X10^3/uL; Basophil% 0.4 % (0-1); Eosinophils% 1.3 % (0-5); Hematocrit 43.5 % (37-47); Hemoglobin 14.5 g/dL (12.0-15.0); Lymphocyte # 2.32 X10^3/ul (0.83-4.51); Lymphocyte % 30.6 % (19-41); Mean Corp Hgb Conc 33.3 g/dL (32-36); Mean Corpuscular Volume 89.9 fL (81-99); Mean Platelet Vol. 10.2 fl (6.2-12.0); Monocyte# 0.64 X10^3/uL; Monocyte% 8.4 % (0-10); NRBC Flagged by Analyzer 0 % (0-5); Neutrophil # 4.48 X10^3/uL (2.7-7.7); POSITIVE COUNT YES; Platelet Count 243 K/mm3 (150-450); RBC Distribution Width CV 13.2 % (11.6-14.6); RBC Distribution Width SD 43.6 fl (35.1-43.9); Red Blood Count 4.84 M/mm3 (4.2-5.4); White Blood Count 7.6 K/mm3 (4.4-11.0)
[2024-10-13 19:19] LABS: Internal QC Validated? YES +Cl - CLEAR BKGD; Pregnancy, Urine Negative Negative
[2024-10-13 19:21] LABS: Differential Indicated SCAN CRITERIA MET
[2024-10-13 20:01] LABS: Differential Comment SCANNED
[2024-10-13 20:03] LABS: Anion Gap 14 (5-15); BUN 13 mg/dL (4-19); BUN/Creat Ratio 14.3 RATIO (10-20); Calcium,Total 9.8 mg/dL (7.6-11.0); Carbon Dioxide 23.6 mmol/L (21.0-32.0); Chloride 99 mmol/L (98-108); Creatinine, Serum 0.89 mg/dL (0.70-1.20); EST Glomerular Filtration Rate 82 (>60); Estimated Creatinine Clearance 88.51 ml/min (50-250); Glucose 92 mg/dL (70-99); Potassium 3.6 mmol/L (3.3-5.1); Sodium Level 136 mmol/L (133-145)
[2024-10-13 20:21] LABS: Troponin T High Sensitivity < 6 ng/L (<=14)
[2024-10-13 21:21] LABS: D-Dimer Quantitative (DVT/PE) < 0.27 FEU/ug/m (0.27-0.49)
[2024-10-13 21:35] LABS: Troponin T High Sens 2 HR 6 ng/L (<=14)
--- NOTE | 2024-10-13 21:40 | RAD_ITS ---
PROCEDURE: CHEST PA AND LATERAL 10/13/2024 REASON FOR EXAM: PAIN, SOB TECHNIQUE: Frontal and lateral views of the chest. COMPARISON: Chest x-ray dated 04/04/2024. FINDINGS: The heart size is normal. The mediastinal contour is unremarkable. The lungs are clear. The bones are unremarkable. Surgical clips seen within the right upper abdominal quadrant, likely from prior cholecystectomy procedure. RAD/Chest PA and Lateral IMPRESSION: No acute pulmonary disease. Reading Location: [id number]
== END 2024-10-13 22:36 | disposition home or self-care (01) ==
PROVIDERS: Emergency Provider Emergency Medicine; PCP Student in an Organized Health Care Education/Training Program; Referring Provider Emergency Medicine; Visit Provider Emergency Medicine
DX: R07.89 Other chest pain (principal); M06.9 Rheumatoid arthritis, unspecified; R06.00 Dyspnea, unspecified; F41.9 Anxiety disorder, unspecified; Z88.0 Allergy status to penicillin; Z79.899 Other long term (current) drug therapy; Z87.891 Personal history of nicotine dependence
CPT/HCPCS: 71046; 80048; 81025; 84484; 85025; 85379; 93005; 99283; A4216

== ENCOUNTER → 2024-10-14 | Outpatient (CLI) | payer OTHER, SELFPAY ==
--- NOTE | 2024-10-14 10:49 | VDLE_ITS ---
Reason For Study Reason For Study: Left leg pain RIGHT LEFT CFV is compressible, spontaneous, phasic, competent GSV is normal. and demonstrates normal augmentation. CFV is compressible, spontaneous, phasic, competent, Procedure and demonstrates normal augmentation. This is a venous duplex using B-mode, color flow and FV is compressible, spontaneous, phasic, competent spectral Doppler. and demonstrates normal augmentation. Exam performed in department. POP V is compressible, spontaneous, phasic, competent A preliminary report was called and/or faxed to [facility] and demonstrates normal augmentation. JAYE and Dr. Doty (PCP). T/P Trunk is compressible. PTV is compressible. LT PerV is compressible. VL/Venous Duplex US, Unilateral Interpretation Summary Deep veins of the left lower extremity are patent and compressible segmentally. There is no evidence of left lower extremity deep vein thrombosis. The left great saphenous vein appears patent an d compressible segmentally. Ordering Physician: Laura Rai Referring Physician: Hilton Doty Performed By: Rochelle Taylor RVT
[2024-10-14 17:18] LABS: Pro- Brain NATRIURETIC PEPTIDE < 36 pg/mL (<=450)
== END | disposition home or self-care (01) ==
PROVIDERS: PCP Student in an Organized Health Care Education/Training Program; Referring Provider Physician Assistant; Visit Provider Physician Assistant
DX: R60.0 Localized edema (principal); I87.2 Venous insufficiency (chronic) (peripheral); M79.606 Pain in leg, unspecified
CPT/HCPCS: 36415; 83880; 93971

== ENCOUNTER → 2024-10-26 | Outpatient (CLI) | payer OTHER, SELFPAY ==
--- NOTE | 2024-10-26 12:43 | ECHOD_ITS ---
Reason For Study Reason For Study: SHORTNESS OF BREATH Procedure This was a 2D Doppler, Color Flow transthoracic echocardiogram. Exam performed in department. Left Ventricle Normal LV size. Left ventricular systolic function is normal. The left ventricular ejection fraction is 60 %. No regional wall motion abnormalities noted. Right Ventricle Normal RV size. Normal systolic function. Atria Normal left atrium. Normal right atrium. Mitral Valve Normal mitral valve. Tricuspid Valve Normal tricuspid valve. Aortic Valve Normal aortic valve. Trisinus/trileaflet aortic valve. Pulmonic Valve Normal pulmonic valve. Great Vessels Normal aortic root. The pulmonary artery is normal size. Inferior vena cava collapse with sniff. Pericardium/Pleural No pericardial effusion. MMode/2D Measurements & Calculations LVIDd: 4.9 cm IVSd: 0.85 cm Ao root diam: 2.6 cm LVIDs: 3.1 cm LVPWd: 0.95 cm RVDd: 3.1 cm FS: 37.1 % LAV(MOD-bp): 51.8 ml LVAd ap4: 29.6 cm2 LVAd ap2: 27.6 cm2 LAV(MOD-bp) Indexed: 26.3 ml/m2 LVLd ap4: 7.9 cm LVLd ap2: 7.7 cm LAV(MOD-sp2): 48.6 ml EDV(MOD-sp4): 94.0 ml EDV(MOD-sp2): 86.2 ml LAV(MOD-sp4): 49.2 ml EDV(sp4-el): 93.9 ml EDV(sp2-el): 84.2 ml LVAs ap4: 16.5 cm2 LVAs ap2: 14.7 cm2 LVLs ap4: 6.6 cm LVLs ap2: 6.2 cm ESV(MOD-sp4): 37.6 ml ESV(MOD-sp2): 31.7 ml ESV(sp4-el): 35.1 ml ESV(sp2-el): 29.4 ml EF(MOD-sp4): 60.0 % EF(MOD-sp2): 63.2 % EF(sp4-el): 62.7 % SV(MOD-sp4): 56.4 ml SV(MOD-sp2): 54.5 ml SV(sp4-el): 58.8 ml SI(MOD-sp4): 28.7 ml/m2 SI(MOD-sp2): 27.7 ml/m2 LA A4 area: 17.6 cm2 LA dimension(2D): 3.0 cm RA A4 area: 11.8 cm2 TAPSE: 2.6 cm Time Measurements MV dec time: 0.18 sec Doppler Measurements & Calculations MV E max bahman: 64.3 cm/sec Lat Peak E' Bahman: 16.7 cm/sec Med Peak E' Bahman: 16.9 cm/sec MV A max bahman: 72.0 cm/sec E/E' lat: 3.9 E/E' med: 3.8 MV E/A: 0.89 MV V2 max: 87.4 cm/sec MV P1/2t max bahman: 85.2 cm/sec Ao V2 max: 140.4 cm/sec MV max P.1 mmHg MV P1/2t: 50.1 msec Ao max P.9 mmHg MV V2 mean: 54.6 cm/sec Ao V2 mean: 100.3 cm/sec MV mean P.3 mmHg MV dec slope: 498.3 cm/sec2 Ao mean P.6 mmHg MV V2 VTI: 24.6 cm MVA(P1/2t): 4.4 cm2 Ao V2 VTI: 28.8 cm AV (velocity ratio): 0.83 LV V1 max: 128.0 cm/sec PA V2 max: 97.4 cm/sec LV V1 max P.6 mmHg LV V1 mean P.5 mmHg LV V1 mean: 85.5 cm/sec LV V1 VTI: 23.9 cm ECHO/Echo Complete Interpretation Summary Normal LV size. Left ventricular systolic function is normal. The left ventricular ejection fraction is 60 %. Structurally normal valves. Ordering Physician: Elzbieta Garcia Referring Physician: Hilton Doty Performed By: Isaura Plasenica RDCS, RVT
== END | disposition home or self-care (01) ==
LOC: CVS 12:42
PROVIDERS: PCP Student in an Organized Health Care Education/Training Program; Referring Provider Nurse Practitioner Family; Visit Provider Nurse Practitioner Family
DX: R06.02 Shortness of breath (principal); R60.0 Localized edema
CPT/HCPCS: 93306

== ENCOUNTER → 2024-11-10 | Outpatient (CLI) | payer OTHER, SELFPAY ==
[2024-11-10 07:11] LABS: Absolute Lymphocyte Count 1.63 X10^3/uL (0.83-4.51); Absolute Neutrophil Count 3.5 X10^3/uL (2.0-7.7); Basophil# 0.02 X10^3/uL; Basophil% 0.4 % (0-1); Eosinophil# 0.09 X10^3/uL; Eosinophils% 1.6 % (0-5); Hematocrit 39.9 % (37-47); Hemoglobin 13.4 g/dL (12.0-15.0); Lymphocyte # 1.63 X10^3/ul (0.83-4.51); Mean Corp Hgb Conc 33.6 g/dL (32-36); Mean Corpuscular Hgb 30.8 pg (27.0-32.0); Mean Corpuscular Volume 91.7 fL (81-99); Mean Platelet Vol. 9.7 fl (6.2-12.0); Monocyte# 0.43 X10^3/uL; Monocyte% 7.6 % (0-10); NRBC Flagged by Analyzer 0 % (0-5); Neutrophil # 3.45 X10^3/uL (2.7-7.7); Neutrophil % 61.2 % (47-70); Platelet Count 244 K/mm3 (150-450); RBC Distribution Width CV 14.2 % (11.6-14.6); RBC Distribution Width SD 47.7 fl (35.1-43.9); Red Blood Count 4.35 M/mm3 (4.2-5.4); White Blood Count 5.6 K/mm3 (4.4-11.0)
--- NOTE | 2024-11-10 08:30 | CT_ITS ---
PROCEDURE: CHEST WITHOUT CONTRAST 11/10/2024 REASON FOR EXAM: SOB,WHEEZING TECHNIQUE: Chest CT without contrast. Coronal and Sagittal reconstruction series were provided. One or more dose reduction techniques were used (e.g., Automated exposure control, adjustment of the mA and/or kV according to patient size, use of iterative reconstruction technique RADIATION DOSE SUMMARY: CTDlvol: 10.2 mGy DLP: 472.3 mGycm COMPARISON: Chest radiograph dated October 13, 2024 FINDINGS: Hardware: None available Lymph nodes: No lymphadenopathy. Heart and Vasculature: The heart is normal in size. The great vessels are normal in size and caliber. No pericardial effusion. Coronary Artery Calcifications: None Lungs and Airways: Central airways are patent. No suspicious parenchymal abnormality. Pleura: No pleural effusion or pneumothorax. Upper Abdomen: Partially visualized upper abdomen demonstrates no acute abnormality. Status post cholecystectomy. Bones: No aggressive osseous lesions. No acute fractures. CT/Chest without Contrast IMPRESSION: No acute pathology within the chest. Status post cholecystectomy. Reading Location: [facility]
[2024-11-10 08:41] LABS: ALB/GLOB Ratio 1.3 RATIO (0.9-2.4); AST(SGOT) 23 U/L (<=31); Alanine Aminotransfer ALT/SGPT 23 U/L (<=34); Albumin, Serum 4.1 g/dL (3.5-5.0); Alkaline Phosphatase 72 U/L (35-104); Anion Gap 11 (5-15); BUN 12 mg/dL (4-19); BUN/Creat Ratio 13.2 RATIO (10-20); Calcium,Total 9.4 mg/dL (7.6-11.0); Carbon Dioxide 23.4 mmol/L (21.0-32.0); Chloride 105 mmol/L (98-108); Creatinine, Serum 0.92 mg/dL (0.70-1.20); EST Glomerular Filtration Rate 79 (>60); Globulin 3.1 g/dL (2.2-4.2); Glucose 107 mg/dL (70-99); Potassium 3.9 mmol/L (3.3-5.1); Protein, Total 7.1 g/dL (5.9-8.4); Sodium Level 139 mmol/L (133-145); Total Bilirubin 0.52 mg/dL (0.00-1.30)
[2024-11-10 09:02] LABS: CRP < 3.00 mg/L (0.0-3.0); Iron 93 ug/dL (50-170); Iron Binding Capacity,Total 262 ug/dL (250-450); Iron Binding Capacity,Unsat 169 ug/dL (228-428); PERCENT IRON SATURATION 35.5 % (13-59); Vitamin B12 756 pg/mL (180-914); Vitamin D,25 Hydroxy 58.9 ng/mL (30-100)
== END | disposition home or self-care (01) ==
PROVIDERS: PCP Student in an Organized Health Care Education/Training Program; Referring Provider Student in an Organized Health Care Education/Training Program; Visit Provider Student in an Organized Health Care Education/Training Program
DX: R06.02 Shortness of breath (principal); M06.4 Inflammatory polyarthropathy; R06.2 Wheezing; N95.1 Menopausal and female climacteric states; M19.90 Unspecified osteoarthritis, unspecified site; I73.00 Raynaud's syndrome without gangrene; R53.83 Other fatigue; E55.9 Vitamin D deficiency, unspecified
CPT/HCPCS: 36415; 71250; 80053; 82306; 82607; 83540; 83550; 84439; 84443; 85025; 86140; 94060; 94726; 94729

== ENCOUNTER 2024-11-28 08:00 | Outpatient (RCR) | payer OTHER, SELFPAY | END 2024-11-30 23:59 | LOC: NS 08:00 | PROVIDERS: PCP Student in an Organized Health Care Education/Training Program; Visit Provider Student in an Organized Health Care Education/Training Program | DX: Z71.3 Dietary counseling and surveillance (principal); E66.9 Obesity, unspecified | CPT/HCPCS: 97802 ==

== ENCOUNTER → 2024-12-12 | Outpatient (CLI) | payer OTHER, SELFPAY ==
[2024-12-14 14:09] LABS: HPV APTIMA, High Risk Negative (Negative)
== END | disposition home or self-care (01) ==
LOC: LABSPEC 10:41
PROVIDERS: PCP Student in an Organized Health Care Education/Training Program; Referring Provider Obstetrics & Gynecology; Visit Provider Obstetrics & Gynecology
DX: Z12.4 Encounter for screening for malignant neoplasm of cervix (principal)
CPT/HCPCS: 87624; 88175; G0145

== ENCOUNTER → 2024-12-30 | Outpatient (CLI) | payer OTHER, SELFPAY ==
--- NOTE | 2024-12-30 14:51 | VDLE_ITS ---
Reason For Study Reason For Study: Pain RIGHT LEFT CFV is compressible, spontaneous, phasic, competent GSV is normal. and demonstrates normal augmentation. CFV is compressible, spontaneous, phasic, competent, Procedure and demonstrates normal augmentation. This is a venous duplex using B-mode, color flow and FV is compressible, spontaneous, phasic, competent spectral Doppler. and demonstrates normal augmentation. Exam performed in department. POP V is compressible, spontaneous, phasic, competent A preliminary report was called and/or faxed to and demonstrates normal augmentation. JAYE Montero. T/P Trunk is compressible. PTV is compressible. LT PerV is compressible. VL/Venous Duplex US, Unilateral Interpretation Summary Deep veins of the left lower extremity are patent and compressible segmentally. There is no evidence of left lower extremity deep vein thrombosis. The left great saphenous vein appears patent an d compressible segmentally. Ordering Physician: Laura Rai Referring Physician: Laura Rai Performed By: Hyacinth Talbot RVT
== END | disposition home or self-care (01) ==
LOC: CVS 14:49
PROVIDERS: PCP Student in an Organized Health Care Education/Training Program; Referring Provider Physician Assistant; Visit Provider Physician Assistant
DX: M79.89 Other specified soft tissue disorders (principal); M79.605 Pain in left leg
CPT/HCPCS: 93971

== ENCOUNTER 2025-01-02 16:01 | Outpatient (RCR) | payer OTHER, SELFPAY | END 2025-01-30 23:59 | LOC: NS 16:01 | PROVIDERS: PCP Student in an Organized Health Care Education/Training Program; Visit Provider Student in an Organized Health Care Education/Training Program | DX: Z71.3 Dietary counseling and surveillance (principal); E66.9 Obesity, unspecified; Z68.31 Body mass index [BMI] 31.0-31.9, adult | CPT/HCPCS: 97803 ==

== ENCOUNTER 2025-01-10 08:36 | Day surgery (SDC) | payer OTHER, SELFPAY ==
[2025-01-09 08:47] VITALS: BMI 30.7
--- OUTSIDE RECORDS SUMMARY | 2025-01-10 09:48 | XMS RPT_ITS | CCD ---
Author Organization [facility] Care Team Providers Care Civil Laboratory Technician Name Role Phone Hilton Doty DO Primary Care Provider Dr. Hilton Doty Primary Care Provider Dr. Hilton Doty Referring Provider Vincenzo PUBLISHING EDITOR, NUNU-Jessica Munguia Attending Provider Hilton Doty DO Primary Care Provider Dr. Priscilla Mart Attending Provider [phone] Dr. Hilton Doty Primary Care Provider Dr. Hilton Doty Referring Provider BUSTER Loya NP Attending Provider Dr. Priscilla Mart Attending Provider BUSTER Carpenter Attending Provider [phone] Priscilla Mart Referring Provider [phone] Dr. Priscilla Mart Other Provider JAYE Grove Attending Provider Hilton Doty DO Primary Care Provider Lavon MERCHANDISE MARKER.Lisa ENAMORADO Unavailable Jillian MERCHANDISE MARKER.Anna ENAMORADO Unavailable Dr. Hilton Doty DO Primary Care Provider [phone] Dr. Hilton Doty DO Referring Provider Laura Bowling Attending Provider Rai PA, Laura Referring Provider Dr. Derek Barone MD Attending Provider Soren ADHIKARI, Dr. Canela Attending Provider Lewis PUBLISHING EDITOR-C, Nilda Attending Provider Lewis PUBLISHING EDITOR-C, Nilda Referring Provider Dr. Hilton Doty DO Primary Care Provider Dr. Hilton Doty DO Referring Provider Laura Bowling Attending Provider [phone] Cecelia CEE, Laura Referring Provider [phone] Abisai ADKINS, Dr. Reed Attending Provider [phone] Dr. Hilton Doty DO Attending Provider Vincenzo PUBLISHING EDITOR-C, Nilda Attending Provider Lewis PUBLISHING EDITOR-C, Nilda Referring Provider Dr. Charlie Lombardo DO Referring Provider Dr. Charlie Lombardo DO Emergency Provider Knoble PUBLISHING EDITOR-C, Rajinder Other Provider Dr. Charlie Lombardo DO Attending Provider Knoble PUBLISHING EDITOR-C, Rajinder Attending Provider Knkoko PUBLISHING EDITOR-C, Rajinder Referring Provider Khang ADKINS, Dr. Ritter Attending Provider Dr. Priscilla Mart DO Attending Provider Dr. Priscilla Mart DO Referring Provider HILTON DOTY Primary Care Unavailable HILTON DOTY Attending Unavailable DOTY, HILTON L Primary Care Unavailable RAJINDER HINTON Attending Unavailable DOTYHILTON AGGARWAL Primary Care Unavailable DOTYHILTON L Attending Unavailable HILTON DOTY L Attending Unavailable DOTYHILTON L Primary Care Unavailable DOTY, HILTON L Primary Care Unavailable DOTY, HILTON L Attending Unavailable SUPPAN, DORIS A Attending Unavailable DOTY, HILTON L Primary Care Unavailable DOTY, HILTON L Primary Care Unavailable DORIS DRISCOLL A Referring Unavailable DOTY, HILTON L Primary Care Unavailable DOTY, HILTON L Attending Unavailable Randy Grove Attending Unavailable Doty, Hilton Referring Unavailable Doty, Hilton Primary Care Unavailable Laura Rai Attending Unavailable Rai, Laura Referring Unavailable Doty, Hilton Primary Care Unavailable Doty, Hilton Attending Unavailable Doty, Hilton Primary Care Unavailable Rajinder Hinton Attending Unavailable Rajinder Hinton Referring Unavailable Doty, Hilton Primary Care Unavailable Doty, Hilton Primary Care Unavailable Rai, Laura Attending Unavailable Rai, Laura Referring Unavailable Doty, Hilton Referring Unavailable Doty, Hilton Attending Unavailable Doty, Hilton Primary Care Unavailable Doty, Hilton Referring Unavailable Doty, Hilton Attending Unavailable Doty, Hilton Primary Care Unavailable Derek Barone Attending Unavailable MckeesportDerek Referring Unavailable Doty, Hilton Primary Care Unavailable Doty, Hilton Attending Unavailable Doty, Hilton Primary Care Unavailable Doty, Hilton Primary Care Unavailable Jaspreet Lombardoy Attending Unavailable Munira Charlie Referring Unavailable Ricki Del [place] Attending Unavailable Doty, Hilton Primary Care Unavailable Jasen Ortiz Attending Unavailable Doty, Hilton Primary Care Unavailable Doty, Hilton Referring Unavailable Doty, Hilton Attending Unavailable Doty, Hilton Primary Care Unavailable Doty, Hilton Attending Unavailable Doty, Hilton Referring Unavailable Doty, Hilton Primary Care Unavailable Rajinder Hinton Consulting Unavailable Doty, Hilton Primary Care Unavailable Laura Rai Attending Unavailable Rai, Laura Referring Unavailable Doty, Hilton Referring Unavailable Doty, Hilton Attending Unavailable Doty, Hilton Primary Care Unavailable Doty, Hilton Attending Unavailable Doty, Hilton Referring Unavailable Doty, Hilton Primary Care Unavailable Doty, Hilton Referring Unavailable Laura Rai Attending Unavailable Doty, Hilton Primary Care Unavailable Doty, Hilton Referring Unavailable Doty, Hilton Primary Care Unavailable Rai, Laura Attending Unavailable Randy Grove Attending Unavailable Doty, Hilton Referring Unavailable Doty, Hilton Primary Care Unavailable Priscilla Mart Referring Unavailabl e Doty, Hilton Primary Care Unavailable Priscilla Mart Attending Unavailabl e Doty, Hilton Attending Unavailable Doty, Hilton Referring Unavailable Doty, Hilton Primary Care Unavailable Abisai Derek Attending Unavailable Doty, Hilton Primary Care Unavailable Rai, Laura Attending Unavailable Rai, Laura Referring Unavailable Doty, Hilton Primary Care Unavailable Vincenzo PUBLISHING EDITOR, Nilda Attending Unavailable Doty, Hilton Referring Unavailable Doty, Hilton Primary Care Unavailable Akash Joe Attending Unavailable Abisai, Derek Attending Unavailable Rai, Laura Referring Unavailable Doty, Hilton Primary Care Unavailable Stone Quiñonez Attending Unavailable Doty, Hilton Primary Care Unavailable [place], Derek Attending Unavailable Doty, Hilton Primary Care Unavailable Rai, Laura Referring Unavailable Abisai, Derek Attending Unavailable Doty, Hilton Referring Unavailable Doty, Hilton Primary Care Unavailable Priscilla Mart Attending Unavailabl e Doty, Hilton Referring Unavailable Doty, Hilton Primary Care Unavailable Vincenzo PUBLISHING EDITOR, Nilda Attending Unavailable Lewis PUBLISHING EDITOR, Nilda Referring Unavailable Doty, Hilton Primary Care Unavailable Doty, Hilton Attending Unavailable Doty, Hilton Referring Unavailable Doty, Hilton Primary Care Unavailable Allergies Allergy Classification Reported Allergen(s) Allergy Type Date of Onset Reaction(s) Facility Penicillins (antibiotic) (3 sources) Penicillins Drug Allergy 4 Unknown [facility] (5 sources) Penicillins; Translations: [PENICILLINS] Drug Intolerance 4 Unknown [facility] Work Phone: (20 sources) Penicillins Drug Intolerance 4 Unknown [facility] Work Phone: (14 sources) Penicillins Allergy to substance 3 Unknown, Anaphylaxis [facility] (4 sources) Penicillins Drug Intolerance 4 Unknown [facility] (1 source) Penicillins Drug allergy (disorder) 5 [facility] Repository Medications Current Medications Medication Drug Class(es) Dates Sig (Normalized) Sig (Original) [id number] 200 actuat albuterol 0.09 mg/actuat metered dose inhaler (5 sources) beta2-Adrenergi c Agonist Start: 10-26-2024 take 2 puff(s) by inhalation every four hours as needed for wheezing albuterol HFA (PROVENTIL HFA, VENTOLIN HFA) 90 mcg/actuation inhaler Indications: SOB (shortness of breath) , Wheezing Inhale 2 Puffs as instructed every 4 hours as needed for wheezing/shortness of breath. 1 Each 1 10/26/2024 Active azelaic acid 200 mg/ml topical cream (5 sources) Start: 10-26-2024 End: 11-25-2024 azelaic acid (AZELEX) 20 % cream Indications: Rosacea Apply to affected area two times a day. As needed for facial Rosacea 50 g 1 10/26/2024 11/25/2024 Active cholecalciferol 0.125 mg oral capsule (20 sources) Vitamin D Start: 09-24-2023 take 1 capsule by mouth once daily Cholecalciferol (Vitamin D3) 125 mcg (5,000 unit) capsule Active 125 ug PO DAILY September 24, 2023 1:00am Start: 09-28-2015 take 2 tablets by mo ut once daily Cholecalciferol, Vitamin D3, 2,000 unit cap Take 2 tablets by mouth once daily. 60 capsule 11 09/28/2015 Active Comment on above: Take 2 tablets by mo uth once daily. FLUoxetine 10 mg oral capsule (7 sources) Serotonin Reuptake Inhibitor Start: 12-12-2024 take 1 capsule by mouth once daily Fluoxetine (Prozac) 10 mg capsule Active 10 mg PO daily December 12, 2024 12:00am Start: 10-26-2024 take 1 tablet by jose once daily in the morning for anxiety FLUoxetine 10 mg tablet Indications: LIVIA (generalized anxiety disorder) Take 1 tablet by mouth once daily. In the morning for anxiety 90 tablet 1 10/26/2024 Active hydrocortisone 25 mg/ml topical cream (20 sources) Corticosteroid Start: 10-21-2023 End: 11-16-2024 hydrocortisone 2.5 % cream Apply 1 application to affected area two times a day as needed (hemorrhoids). 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 Location: on eyelid as needed for rash 28 g 1 01/20/2022 02/19/2022 Active Comment on above: Apply 1 application to affected area twice daily. Location: on eyelid as needed for rash Apply 1 application to affected area two times a day as needed (hemorrhoids). Location: hemorrhoids hydroxychloroquine sulfate 200 mg oral tablet (20 sources) Antimalarial, Antirheumatic Agent Start: 09-25-19 Hydroxychloroquine (Plaquenil) 200 mg tablet Active 300 mg PO DAILY September 25, 2023 1:00am Start: 09-02-2023 End: 08-01-2024 take 1 tablet by mouth once daily hydrOXYchloroQUINE (PLAQUENIL) 200 mg tablet Indications: Inflammatory arthritis Take 1 tablet by mouth once daily. 90 tablet 08/01/2024 Active Start: 08-28-2022 End: 07-10-2023 take 1 tablet by mouth once daily hydrOXYchloroQUINE (PLAQUENIL) 200 mg tablet Indications: Inflammatory arthritis Take 1 tablet by mouth once daily. 90 tablet 0 07/10/2023 Active Start: 03-12-2020 End: 08-28-2022 take 200 mg by mouth twice daily at mealtime Hydroxychloroquine Active 200 MG PO TWICE DAILY WITH MEALS March 11, 2020 11:00pm Comment on above: Take 1 tablet by jose th twice daily. Take 1 tablet by jose th twice daily Take 1 tablet by jose th once daily. LORazepam 0.5 mg oral tablet (20 sources) Benzodiazepine Start: End: take 1 tablet by mouth once daily as needed for anxiety Lorazepam 0.5 MG tablet Active 0.5 mg PO DAILY NEEDED as needed for Anxiety March 12, 2020 12:00am Comment on above: Take 1 tablet by jose th once daily as needed (anxiety attack) for up to 30 days. naproxen 500 mg oral tablet (20 sources) Nonsteroidal Anti-inflammatory Drug Start: End: take 1 tablet by mouth twice daily as needed for pain Naproxen (Naprosyn) 500 mg tablet Active 500 mg PO TWICE A DAY as needed for pain February 05, 2024 12:00am Comment on above: Take 1 tablet by jose th twice daily as needed (for pain/inflammation). Take with food. Take 1 tablet by jose th two times a day as needed (for pain/inflammation). Take with food. ondansetron 4 mg disintegrating oral tablet (7 sources) Serotonin-3 Receptor Antagonist Start: 024 take 1 tablet by mouth every eight hours as needed for nausea Ondansetron 4 mg tablet,disintegrating Active 4 mg PO EVERY 8 HOURS NEEDED as needed for Nausea February 05, 2024 12:00am spironolactone 25 mg oral tablet (10 sources) Aldosterone Antagonist Start: take 1 tablet by mouth once daily Spironolactone 25 mg tablet Active 25 mg PO daily December 12, 2024 12:00am Start: 10-26-2024 take 1 tablet by jose th once daily Spironolactone 50 mg tablet Active 50 mg PO daily November 02, 2024 12:00am traZODone hydrochloride 50 mg oral tablet (20 sources) Serotonin Reuptake Inhibitor Start: 09-02-2023 End: 12-30-2023 take 1 tablet by mouth at bedtime Trazodone 50 mg tablet Active 50 mg PO AT BEDTIME September 25, 2023 1:00am Comment on above: Take 1-2 tablets by mouth daily at bedtime. Completed/Discontinued Medications Medication Drug Class(es) Dates Sig (Normalized) Sig (Original) acetaminophen 325 mg / HYDROcodone bitartrate 5 mg oral tablet (14 sources) Opioid Agonist Start: 04-30-2017 End: 05-07-2017 Hydrocodone-Acetami nophen 1 TABLET tablet Discontinued 1 - 2 {tbl} PO EVERY 6 HOURS NEEDED as needed for Pain April 30, 2017 7:10am May 07, 2017 8:17am Start: 04-30-2017 End: 05-07-2017 take 1 tablet by mouth every six hours as needed Hydrocodone-Acetaminophen Discontinued 1 - 2 TABLET PO EVERY 6 HOURS NEEDED April 30, 2017 7:10am May 07, 2017 8:17am amLODIPine 5 mg oral tablet (16 sources) Dihydropyridine Calcium Channel Jesi Start: 08-28-2022 take 1 tablet by mouth once daily amLODIPine (NORVASC) 5 mg tablet Take 1 tablet by mouth once daily. 90 tablet 0 08/28/2022 Active Comment on above: Take 1 tablet by jose th once daily. benzonatate 100 mg oral capsule (8 sources) Non-narcotic Antitussive Start: 09-26-2023 End: 10-14-2023 Benzonatate 100 mg capsule Discontinued 100 mg PO 2 to 3 times per day as needed for cough September 26, 2023 1:00am October 14, 2023 10:20am buPROPion hydrochloride 75 mg oral tablet (20 sources) Aminoketone Start: 06-03-2023 End: 12-12-2024 take 2 tablets by mouth in the morning, then take 1 tablet by mouth in the evening Bupropion Hcl 75 mg tablet Discontinued 75 mg PO As Directed September 24, 2023 1:00am December 12, 2024 9:41am 2 tab in am, 1 tab in pm Start: 12-22-2022 End: 06-03-2023 take 1 tablet by mouth twice daily buPROPion (WELLBUTRIN) 75 mg tablet Indications: LIVIA (generalized anxiety disorder) , Situational depression Take 1 tablet by mouth two times a day. 180 tablet 1 05/04/2023 06/03/2023 Discontinued Start: 04-12-2021 End: 11-24-2022 take 1 tablet by mouth twice daily, then take 1 tablet by mouth in the morning buPROPion (WELLBUTRIN) 75 mg tablet Indications: LIVIA (generalized anxiety disorder) , Situational depression Take 1 tablet by mouth twice daily. Take 1 tablets PO by mouth in the morning 180 tablet 1 11/24/2022 Active Start: 07-02-2020 End: 10-24-2022 take 2 tablets by mouth in the morning, then take 1 tablet by mouth in the evening buPROPion (WELLBUTRIN) 75 mg tablet Indications: LIVIA (generalized anxiety disorder) Take 2 tablets (150mg) by mouth in the morning, take 1 tablet (75mg) by mouth in the evening 21 tablet 0 07/02/2020 10/24/2022 Discontinued Comment on above: Take 2 tablets (150m g) by mouth in the morning, take 1 tablet (75mg) by mouth in the evening Take 1 tablets PO by mouth in the morning, take 1 tablet PO in the evening Take 1 tablets PO by mouth in the morning Take 1 tablet by jose th twice daily. Take 1 tablets PO by mouth in the morning Take 1 tablet by jose th twice daily. Take 1 tablet by jose th two times a day. Take 2 tablets in th e AM and 1 tablet in the afternoon busPIRone hydrochloride 5 mg oral tablet (14 sources) Start: End: Buspirone 5 MG tablet Discontinued 5 mg PO NEEDED as needed for Anxiety May 07, 2017 12:00am September 24, 2023 9:37am chlorthalidone 25 mg oral tablet (20 sources) Thiazide-like Diuretic Start: End: take 1 tablet by mouth once daily Chlorthalidone 25 MG tablet Discontinued 25 mg PO DAILY March 12, 2020 12:00am November 02, 2024 11:32am Comment on above: Take 1 tablet by jose th once daily. As needed for edema TAKE 1 TABLET BY JOSE TH ONCE DAILY NEEDED FOR EDEMA dexamethasone 6 mg oral tablet (7 sources) Corticosteroid Start: End: take 1 tablet by mouth once daily Dexamethasone 6 mg tablet Discontinued 6 mg PO DAILY May 26, 2024 12:00am December 12, 2024 9:40am doxycycline hyclate 100 mg oral capsule (8 sources) Tetracycline-class Drug Start: End: take 1 capsule by mouth twice daily Doxycycline Hyclate 100 mg capsule Discontinued 100 mg PO TWICE A DAY 22 05November 20, 2023 12:00am November 29, 2023 12:00am November 30, 2023 12:06am furosemide 20 mg oral tablet (20 sources) Loop Diuretic Start: End: take 0.5-1 tablets by mouth once daily at breakfast furosemide (LASIX) 20 mg tablet Take 0.5-1 tablets by mouth daily with breakfast. 90 tablet 1 12/12/2019 10/17/2024 Discontinued Comment on above: Take 0.5-1 tablets b y mouth daily with breakfast. levonorgestrel 0.394236 mg/hr intrauterine system (20 sources) Progestin, Progestin-containing Intrauterine Device Start: End: Levonorgestrel (Mirena) 21 mcg/24 hours (8 yrs) 52 mg intrauterine device Discontinued 1 DEVICE INTRA-UTER ONCE June 11, 2023 1:00am June 11, 2023 1:05pm as a single dose Start: 07-08-2019 End: 07-06-2024 Levonorgestrel (Mirena) 21 m cg/24 hours (8 yrs) 52 mg intrauterine device Discontinued 1 NMA INTRA-UTER ONCE June 11, 2023 1:00am June 11, 2023 1:05pm as a single dose Comment on above: 1 Each by INTRAUTERI NE route as directed. methocarbamol 500 mg oral tablet (2 sources) Muscle Relaxant Start: 02-08-20 End: 02-18-20 take 1 tablet by mouth every six hours as needed for pain methocarbamol (ROBAXIN) 500 mg tablet Indications: Lower thoracic back pain , Acute low back pain with sciatica, sciatica laterality unspecified, unspecified back pain laterality Take 1 tablet by mouth every 6 hours as needed (Pain) for up to 10 days. 30 tablet 02/08/2024 02/18/2024 metroNIDAZOLE 7.5 mg/ml topical cream (20 sources) Nitroimidazole Antimicrobial Start: 10-21-19 End: 10-27-19 metroNIDAZOLE 0.75 % cream Indications: Rosacea Apply to affected area two times a day. 45 g 1 10/21/2023 10/26/2024 Discontinued Start: 07-23-2022 End: 10-21-2023 metroNIDAZOLE (METROGEL) 1 % Topical Gel Indications: Rosacea Apply 1 application to affected area once daily. Location: rosacea 60 g 1 07/23/2022 10/21/2023 Discontinued Comment on above: Apply 1 application to affected area once daily. Location: rosacea Apply to affected ar ea two times a day. 24 hr phentermine 3.75 mg / topiramate 23 mg extended release oral capsule (20 sources) Sympathomimetic Amine Anorectic Start: 06-11-2023 End: 09-24-2023 Phentermine-Topiramate (Qsymia) 3.75-23 mg capsule, ER multiphase 24 hr Discontinued 1 NMA PO DAILY June 11, 2023 1:00am September 24, 2023 9:39am Start: 06-03-2023 End: 02-15-2025 Phentermine-Topiramate (Qsym ia) 11.25-69 mg capsule, ER multiphase 24 hr Active 1 NMA PO DAILY September 24, 2023 1:00am Start: 02-05-2023 End: 05-06-2023 take 1 capsule by mouth once daily phentermine-topiramate ER (QSYMIA) 11.25-69 mg 24 Hr Capsule Indications: Inflammatory polyarthropathy (HCC) , Dyslipidemia , Obesity, Class I, BMI 30-34.9 Take 1 capsule by mouth once daily for 90 days. BMI 30 90 capsule 0 02/05/2023 05/06/2023 Active Start: 02-01-2022 End: 01-22-2023 take 1 capsule by mouth once daily phentermine-topiramate ER (QSYMIA) 11.25-69 mg 24 Hr Capsule Indications: Inflammatory polyarthropathy (HCC) , Dyslipidemia , Obesity, Class I, BMI 30-34.9 Take 1 capsule by mouth once daily for 90 days. BMI 30 90 capsule 0 10/24/2022 01/22/2023 Active Start: 09-23-2021 End: 12-22-2021 take 1 capsule by mouth once daily phentermine-topiramate ER (QSYMIA) 11.25-69 mg 24 Hr Capsule Indications: Obesity, Class III, BMI 40-49.9 (morbid obesity) (HCC) Take 1 capsule by mouth once daily for 90 days. BMI 35.67 90 capsule 0 09/23/2021 12/22/2021 Active Comment on above: Take 1 capsule by mo uth once daily for 90 days. BMI 35.67 Take 1 capsule by mo uth once daily for 90 days. BMI 31.96 Take 1 capsule by mo uth once daily for 90 days. BMI 30.37 Take 1 capsule by mo uth once daily for 90 days. BMI 30 Take 1 capsule by mo uth once daily for 90 days. BMI 31.32 potassium chloride 10 meq extended release oral tablet (20 sources) Start: 04-25-2024 End: 10-26-2024 take 1 tablet by mouth twice daily at mealtime potassium chloride (K-TAB) 10 mEq tablet Indications: Hypokalemia Take 1 tablet by mouth two times a day with meals. 180 tablet 1 04/25/2024 10/26/2024 Discontinued Start: 04-04-2024 End: 11-02-2024 take 1 tablet by mouth twice daily Potassium Chloride 20 mEq tablet extended release Discontinued 20 meq PO TWICE A DAY April 04, 2024 12:00am November 02, 2024 11:32am Wktflpoof-Molvfeilr-Kuqaxwja dr (11 sources) Start: 08-16-2023 End: 09-24-2023 Eownvssfi-Gauzvnsog-Xgfclugg dr (Myfembree) 40-1-0.5 mg tablet Discontinued 1 {tbl} PO DAILY August 16, 2023 1:00am September 24, 2023 9:38am Start: 08-16-2023 End: 09-24-2023 Yovqewfmw-Raxqixmhl-Ywecykcq dr (Myf[place]ree) 40-1-0.5 mg tablet Discontinued 1 {tbl} PO DAILY August 16, 2023 12:00am September 24, 2023 8:38am Start: 08-16-2023 End: 09-24-2023 take 1 tablet by mouth once daily Vkirvmjfe-Uekxelfse-Xqbxnoxcvg (Myfembre e) 40-1-0.5 mg tablet Discontinued 1 TABLET PO DAILY August 16, 2023 1:00am September 24, 2023 9:38am Start: 08-16-2023 take 1 tablet by jose th once daily Mojydrytg-Kyljmoatj-Wjhzqzqnvb (Myfembre e) 40-1-0.5 mg tablet Active 1 TABLET PO DAILY August 16, 2023 12:00am Problems Active Problems Problem Classification Problem Date Documented Date Episodic/Chronic Adjustment disorders (20 sources) Reactive depression (situational); Translations: [Adjustment disorder with depressed mood] Onset: 11-27-2022 Chronic Anxiety disorders (20 sources) Generalized anxiety disorder; Translations: [Generalized anxiety disorder] Onset: 03-04-2019 03-04-2019 Chronic Cardiac dysrhythmias (14 sources) ECG: sinus bradycardia; Translations: [Bradycardia, unspecified] 03-13-2020 Episodic Complication of device; implant or graft (1 source) Pain; Translations: [Pain due to genitourinary prosthetic devices, implants and grafts, initial encounter] Episodic Contraceptive and procreative management (6 sources) Encounter for removal of intrauterine contraceptive device; Translations: [Encounter for removal of intrauterine contraceptive device] 06-11-2023 Episodic Disorders of lipid metabolism (20 sources) Dyslipidemia; Translations: [Hyperlipidemia, unspecified] Onset: 07-18-2019 07-18-2019 Chronic E Codes: Fall (7 sources) Fall from ladder; Translations: [Fall on and from ladder, initial encounter] 02-13-2024 Episodic Fracture of upper limb (14 sources) Fracture of distal phalanx of finger ; Translations: [Displaced fracture of distal phalanx of unspecified finger, initial encounter for closed fracture] 11-26-2019 Episodic Immunizations and screening for infectious disease (3 sources) Needs influenza immunization; Translations: [Encounter for immunization] 06-03-2023 Episodic Influenza (2 sources) Influenza due to Influenza A virus; Translations: [Influenza due to other identified influenza virus with other respiratory manifestations] 09-26-2023 Episodic Intracranial injury (7 sources) Concussion injury of body structure; Translations: [Concussion] 02-13-2024 Episodic Malaise and fatigue (20 sources) Fatigue; Translations: [Other fatigue] Onset: 10-13-2017 10-13-2017 Episodic Menopausal disorders (19 sources) Menopause finding; Translations: [Menopausal and female climacteric states] Onset: 08-02-2024 08-02-2024 Chronic Menstrual disorders (20 sources) Menorrhagia; Translations: [Excessive and frequent menstruation with regular cycle] Onset: 03-04-2019 03-04-2019 Chronic Comment on above: failed IUD; failed IUD Miscellaneous mental health disorders (1 source) Insomnia; Translations: [Other insomnia not due to a substance or known physiological condition] 12-30-2023 Chronic Nutritional deficiencies (20 sources) Vitamin D deficiency; Translations: [Vitamin D deficiency, unspecified] Onset: 10-13-2017 10-13-2017 Chronic Osteoarthritis (20 sources) Arthritis; Translations: [Unspecified osteoarthritis, unspecified site] Onset: 04-25-2024 Chronic Other and unspecified benign neoplasm (14 sources) Leiomyoma; Translations: [Benign neoplasm of connective and other soft tissue, unspecified] 06-15-2023 Episodic Comment on above: 2.7cm Other and unspecified benign neoplasm (5 sources) Benign neoplasm of connective and other soft tissue, unspecified; Translations: [Other benign neoplasm of connective and other soft tissue, site unspecified] 08-12-2023 Episodic Other circulatory disease (20 sources) Raynaud's phenomenon; Translations: [Raynaud's syndrome without gangrene] Onset: 09-15-2014 09-15-2014 Chronic Other circulatory disease (1 source) Raynaud's syndrome without gangrene; Translations: [Raynaud's phenomenon without gangrene] Onset: 09-15-2014 Chronic Other circulatory disease (14 sources) H/O: hypertension; Translations: [Personal history of other diseases of the circulatory system] 03-12-2020 Episodic Other connective tissue disease (14 sources) H/O: rheumatoid arthritis; Translations: [Personal history of other diseases of the musculoskeletal system and connective tissue] 03-12-2020 Episodic Other connective tissue disease (1 source) Other specified soft tissue disorders; Translations: [Other specified soft tissue disorders] Onset: 01-03-2025 Episodic Other connective tissue disease (1 source) Pain in leg, unspecified; Translations: [Pain in leg, unspecified] Onset: 11-02-2024 Episodic Other diseases of veins and lymphatics (7 sources) Vascular insufficiency; Translations: [Venous insufficiency (chronic) (peripheral)] 09-08-2024 Episodic Other diseases of veins and lymphatics (2 sources) Venous insufficiency (chronic) (peripheral); Translations: [Venous insufficiency (chronic) (peripheral)] Onset: 11-02-2024 Episodic Other female genital disorders (1 source) Postcoital bleeding; Translations: [Postcoital and contact bleeding] Chronic Other female genital disorders (14 sources) Abnormal uterine bleeding; Translations: [Abnormal uterine and vaginal bleeding, unspecified] 06-11-2023 Chronic Comment on above: EMB pending, Benign. Repeat pap 2024 Other female genital disorders (11 sources) Abnormal uterine and vaginal bleeding, unspecified; Translations: [Unspecified disorders of menstruation and other abnormal bleeding from female genital tract] 06-11-2023 Chronic Other female genital disorders (1 source) Vaginal discharge; Translations: [Other specified noninflammatory disorders of vagina] Episodic Other inflammatory condition of skin (20 sources) Rosacea; Translations: [Rosacea, unspecified] Onset: 07-23-2022 Chronic Other inflammatory condition of skin (1 source) Rosacea, unspecified; Translations: [Rosacea] Onset: 07-23-2022 Chronic Other injuries and conditions due to external causes (7 sources) Closed injury of head; Translations: [Unspecified injury of head, initial encounter] 02-13-2024 Episodic Other lower respiratory disease (20 sources) Dyspnea; Translations: [Shortness of breath] Onset: 04-25-2024 04-25-2024 Episodic Other lower respiratory disease (5 sources) Wheezing; Translations: [Wheezing] 10-26-2024 Episodic Other lower respiratory disease (2 sources) Wheezing; Translations: [Wheezing] Onset: 10-26-2024 Episodic Other lower respiratory disease (3 sources) Shortness of breath; Translations: [SOB (shortness of breath)] Onset: 04-25-2024 Episodic Other lower respiratory disease (1 source) Dyspnea, unspecified; Translations: [Dyspnea, unspecified] Onset: 10-23-2024 Episodic Other nutritional; endocrine; and metabolic disorders (20 sources) Obese class I; Translations: [Obesity, unspecified] Onset: 01-16-2016 01-16-2016 Chronic Other nutritional; endocrine; and metabolic disorders (20 sources) Body mass index 40+ - severely obese; Translations: [Morbid (severe) obesity due to excess calories] Onset: 10-13-2017 10-13-2017 Chronic Other nutritional; endocrine; and metabolic disorders (3 sources) Obesity, unspecified; Translations: [Obesity, Class I, BMI 30-34.9] Onset: 01-21-2022 Chronic Other screening for suspected conditions (not mental disorders or infectious disease) (8 sources) Patient encounter status; Translations: [Encounter for screening mammogram for malignant neoplasm of breast] Onset: 10-06-2024 Episodic Other skin disorders (1 source) Eruption; Translations: [Rash and other nonspecific skin eruption] Episodic Other upper respiratory infections (2 sources) Acute sinusitis; Translations: [Acute sinusitis, unspecified] 11-20-2023 Episodic Pleurisy; pneumothorax; pulmonary collapse (14 sources) Pleurisy; Translations: [Pleurisy] 03-13-2020 Episodic Residual codes; unclassified (8 sources) Past history of procedure; Translations: [Other specified postprocedural states] 10-14-2023 Episodic Comment on above: uterine ablation 3/ 024 -JV Residual codes; unclassified (1 source) Other specified postprocedural states; Translations: [Other postprocedural status] 10-14-2023 Episodic Residual codes; unclassified (2 sources) Localized edema; Translations: [Bilateral leg edema] Onset: 01-21-2022 Episodic Rheumatoid arthritis and related disease (20 sources) Inflammatory polyarthropathy; Translations: [Inflammatory polyarthropathy] Onset: 04-14-2015 04-14-2015 Chronic Screening and history of mental health and substance abuse codes (14 sources) H/O: depression; Translations: [Personal history of other mental and behavioral disorders] 03-12-2020 Episodic Sexually transmitted infections (not HIV or hepatitis) (11 sources) Human papillomavirus deoxyribonucleic acid test positive, high risk on cervical specimen; Translations: [Cervical high risk human papillomavirus (HPV) DNA test positive] 09-14-2023 Episodic Superficial injury; contusion (7 sources) Contusion of right shoulder; Translations: [Contusion of right shoulder, initial encounter] 02-13-2024 Episodic Systemic lupus erythematosus and connective tissue disorders (2 sources) Undifferentiated connective tissue disease; Translations: [Systemic involvement of connective tissue, unspecified] Chronic Unclassified (1 source) Obesity, Class I, BMI 30-34.9; Translations: [Obesity, Class I, BMI 30-34.9] Onset: 01-21-2022 Varicose veins of lower extremity (20 sources) Varicose veins of lower limb co-occurrent with edema; Translations: [Varicose veins of bilateral lower extremities with other complications] Onset: 09-15-2014 09-15-2014 Episodic Viral infection (20 sources) Disease caused by 2019-nCoV; Translations: [COVID-19] 06-11-2023 Episodic Past or Other Problems Problem Classification Problem Date Documented Da te Episodic/Chronic Administrative/social admission (2 sources) Dietary counseling and surveillance; Translations: [Dietary counseling and surveillance] Onset: 02-01-2024 Episodic Fluid and electrolyte disorders (20 sources) Hypokalemia; Translations: [Hypokalemia] Onset: 04-25-2024 04-25-2024 Episodic Inflammation; infection of eye (except that caused by tuberculosis or sexually transmitteddisease) (20 sources) Eczematous dermatitis of bilateral eyelids; Translations: [Eczematous dermatitis of right upper eyelid] Onset: 01-21-2022 Episodic Nausea and vomiting (20 sources) Nausea; Translations: [Nausea] Onset: 04-25-2024 04-25-2024 Episodic Nonspecific chest pain (14 sources) Chest wall pain; Translations: [Other chest pain] Onset: 09-08-2024 04-12-2024 Episodic Other injuries and conditions due to external causes (1 source) Unspecified injury of head, initial encounter; Translations: [Unspecified injury of head, initial encounter] Onset: 02-16-2024 Episodic Other non-traumatic joint disorders (20 sources) Hand joint stiff; Translations: [Stiffness of unspecified hand, not elsewhere classified] Onset: 09-15-2014 09-15-2014 Episodic Other non-traumatic joint disorders (20 sources) Pain in right knee; Translations: [Pain in joint, lower leg] Onset: 10-13-2017 10-13-2017 Episodic Residual codes; unclassified (20 sources) Edema; Translations: [Edema, unspecified] Onset: 10-30-2018 10-30-2018 Episodic Residual codes; unclassified (20 sources) Bilateral lower limb edema; Translations: [Localized edema] Onset: 01-21-2022 Episodic Residual codes; unclassified (20 sources) Flushing; Translations: [Flushing] Onset: 10-28-2022 Episodic Spondylosis; intervertebral disc disorders; other back problems (6 sources) Thoracic back pain; Translations: [Pain in thoracic spine] Onset: 02-08-2024 02-08-2024 Episodic Unclassified (14 sources) History of ureteral stone 04-21-2022 Results Test Name Value Interpretation Reference Range Facility [facility] 12-30-2024 [facility] Telephone (FAMWS) WANDA CAAL ([id number]) 1980 F Date Time Provider Department 12/30/24 HILTON DOTY [facility] During your visit today, we recorded the following information about you: Frank Obando RN 12/30/2024 1:05 PM Signed Patient calls to let provider know that she was seen by vascular and they are going to be doing further testing on January 20, 2025 with dye to evaluate her veins. Patient reports that she has been developing several bruises to bilateral lower legs ranging in size from a quarter to a tennis ball and ranging in color from light purplish pink to dark purple and then fading to yellow. Patient reports that she saw Dr. Doty for bilateral lower legs and pain and wanted to let provider be aware of the bruising that is occurring as well. Recommended patient reach out to vascular provider as well to let them know what is going on since they are ordering testing for lower legs. Patient verbalized understanding and reports an increase in anxiety related to recent changes in symptoms again. Offered appointment but patient only wants to see Dr. Doty and has an appointment already scheduled prior to next available. Placed patient on wait list as requested.Patient requested this be forwarded to provider as well. ELSIE Hsieh Jordan L, DO 01/02/2025 7:26 AM Signed Noted, thanks for update Will await specialist opinion as well DO Arcadio Brady Sherrie, RN 01/02/2025 10:36 AM Signed Patent states that Dr. Doty could document review specialist's notes from [facility], if she is able. [place] vascular providers are Laura Rai and Dr. Barone. Pt also states she had a STAT US of her leg completed on Thursday and it was negative for blood clot. Ngoc Ervin RN Allergies As of Date: 12/30/2024 Noted Allergy Reaction PENICILLINS 08/30/2013 16 - Unknown Date Reviewed: 11/16/2024 Reviewed by: Hitlon Doty DO - Fully Assessed Reason for Visit: Patient Update [1234] Prescriptions as of 01/02/2025 - hydrOXYchloroQUINE (PLAQUENIL) 200 mg tablet Take 1 tablet by mouth once daily. - phentermine-topiramat e ER (QSYMIA) 11.25-69 mg 24 Hr Capsule Take 1 capsule by mouth once daily for 90 days. BMI 31.32 - hydrocortisone 2.5 % cream Apply 1 application to affected area two times a day as needed (hemorrhoids). Location: hemorrhoids - FLUoxetine 10 mg tablet Take 1 tablet by mouth once daily. In the morning for anxiety - spironolactone (ALDACTONE) 50 mg tablet Take 1 tablet by mouth once daily. - albuterol HFA (PROVENTIL HFA, VENTOLIN HFA) 90 mcg/actuation inhaler Inhale 2 Puffs as instructed every 4 hours as needed for wheezing/shortness of breath. - chlorthalidone (HYGROTON) 25 mg tablet Take 1 tablet by mouth once daily. As needed for edema - buPROPion (WELLBUTRIN) 75 mg tablet Take 2 tablets in the AM and 2 tablet in the afternoon - traZODone (DESYREL) 50 mg tablet Take 1-2 tablets by mouth daily at bedtime. - naproxen (NAPROSYN) 500 mg tablet Take 1 tablet by mouth two times a day as needed (for pain/inflammation). Take with food. - Cholecalciferol, Vitamin D3, 2,000 unit cap Take 2 tablets by mouth once daily. Problem List As Of Date 12/30/2024 Noted Resolved Varicose veins of both legs with edema [I83.893]09/15/2014 Raynaud phenomenon [I73.00] 09/15/2014 Stiffness of hand joint [M25.649] 09/15/2014 Inflammatory polyarthropathy (HCC) [M06.4] 04/14/2015 Obesity, Class I, BMI 30-34.9 [E66.811] 01/16/2016 Symptomatic varicose veins [I83.899] 06/27/2016 Obesity, [...] flashes [R23.2] 10/28/2022 Situational depression [F43.21] 11/27/2022 Varicose veins of both lower extremities with c*06/03/2023 Nausea [R11.0] 04/25/2024 SOB (shortness of breath) [R06.02] 04/25/2024 Hypokalemia [E87.6] 04/25/2024 Inflammatory arthritis [M19.90] 04/25/2024 Perimenopausal symptoms [N95.1] 08/02/2024 Encounter Status:Closed by JULY BEAVER LPN on 01/02/25 Normal [facility] Venous Duplex US, Unilateral on 12-30-2024 Venous Duplex US, Unilateral [facility] [address] [place] [address] Venous Duplex US, Unilateral 12/30/24 1456 MR#: [id number] Acct: [id number] Name: WANDA CAAL Rep #: [id number] : 1980 44 From: Derek Barone MD Attending Dr: JAYE Montero Status: DEP CLI Ordering Dr: Laura Rai Date: 12/30/24 Location: [facility] Sex: F C Admitted: Reason For Study Reason For Study: Pain RIGHT LEFT CFV is compressible, spontaneous, phasic, competent GSV is normal. and demonstrates normal augmentation. CFV is compressible, spontaneous, phasic, competent, Procedure and demonstrates normal augmentation. This is a venous duplex using B-mode, color flow and FV is compressible, spontaneous, phasic, competent spectral Doppler. and demonstrates normal augmentation. Exam performed in department. POP V is compressible, spontaneous, phasic, competent A preliminary report was called and/or faxed to and demonstrates normal augmentation. JAYE Montero. T/P Trunk is compressible. PTV is compressible. LT PerV is compressible. VL/Venous Duplex US, Unilateral Interpretation Summary Deep veins of the left lower extremity are patent and compressible segmentally. There is no evidence of left lower extremity deep vein thrombosis. The left great saphenous vein appears patent and compressible segmentally. Ordering Physician: Laura Rai Referring Physician: Laura Rai Performed By: Hyacinth Talbot, RVT 01/05/25945 Date Derek Barone MD CC: JAYE Montero; Dr. Hilton Doty, Date Dictated: 12/30/24 1456 Date Transcribed: 01/05/[address] Judge: Signed [facility] MR/BMS.Son 12-19-2024 MR/BMS.S [facility] [address] [place], [place] [id number] OFFICE VISIT Date of Service: 12/19/24 MR#: [id number] Acct: [id number] Name: WANDA CAAL Rep #: [id number] : 1980 Provider: Dr. 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 Accompanied by: Self Is patient in pain?: No Allergies Penicillins (PCN) Allergy (Severe, Verified 12/19/24 15:59) Anaphylaxis Medications ???Medication ???Instructions ???Recorded ???Confirmed ???Type lorazepam 0.5 mg tablet 0.5 mg PO DAILY PRN PRN Anxiety 12/19/24 History cholecalciferol (vitamin D3) 125 125 mcg PO DAILY 09/24/23 12/19/24 History mcg (5,000 unit) capsule phentermine 11.25 mg-topiramate ER 1 cap PO DAILY 09/24/23 12/19/24 History 69 mg capsule,ext.xtdqonp33 hr mphas (Qsymia) hydroxychloroquine 200 mg tablet 300 mg PO DAILY 09/25/23 12/19/24 History (Plaquenil) trazodone 50 mg tablet 50 mg PO QHS 09/25/23 12/19/24 His tory naproxen 500 mg tablet (Naprosyn) 500 mg PO BID PRN pain #20 tabs 0 02/05/24 12/19/24 Rx ondansetron 4 mg disintegrating 4 mg PO Q8H PRN PRN Nausea #10 tab s 02/05/24 12/19/24 Rx tablet spironolactone 50 mg tablet 50 mg PO QDAY 11/02/24 12/19/24 Hi story bupropion HCl 75 mg tablet 150 mg PO BID 12/12/24 12/19/24 Hi story fluoxetine 10 mg capsule (Prozac) 10 mg PO QDAY 12/12/24 12/19/24 H istory spironolactone 25 mg tablet 25 mg PO QDAY 12/12/24 12/19/24 Hi story PFSH Medical History Status post hysteroscopy COVID-19 Wears dentures Wears glasses Anxiety Rheumatoid arthritis Arthritis Kidney stones Former smoker History of edema History of ureteral stone Surgical History Status post hysteroscopic ablation of endometrium ( 09/29/23) Hx of varicose vein stripping Hx of cystoscopy Hx of dilation and curettage Hx of tooth extraction History of laparoscopic cholecystectomy S/P tubal ligation Social History current occupational status: employed 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 She has had prior bilateral GSV ablation and continues to have LE edema/tightness/heavi ness left worse than right. 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 We had initially planned for right ASV verithena but she had questions regarding this in setting of her history of lupus as well as whether left side needed further investigation given it is more symptomatic. Currently her left leg has pain/tightness both in thigh and in calf/anterior lower leg and foot. ROS General General: No weight change, appetite, fatigue, colon cancer, breast cancer or weakness HEENT HEENT: No difficulty swallowing, eye injury, eye surgery, swollen glands or hoarseness Endo Endocrine: No thyroid disease, diabetes mellitus, thyroid cancer, Hair loss, heat intolerance or cold intolerance Skin Skin: No rash or changing moles Musc Musculoskeletal: Yes arthritis and joint pain; No back problems, rheumatoid arthritis or gout Cardio Cardiovascular: Yes shortness of breath with exertion; No murmur, pacemaker, heart disease, atrial fibrillation, high blood pressure, heart attack, heart stent, palpitations or chest pain Psych Psychiatric: Yes depression and anxiety; No hearing voices Resp Respiratory: Yes shortness of breath, No sleep apnea, No cough, No COPD, No asthma, No emphysema and No wheezing Gastro Gastrointestinal: No abdominal pain, No nausea or vomiting, No diarrhea, No constipation, No blood in stool, No acid reflux, No hemorrhoids, No ulcers, No gallbladder problem and No black,tarry stools Vinicius Hematologic: No blood thinners, No blood disorders, No bleeding, No anemia and No blood clots Neuro Neurologic: No system reviewed and no additional complaints, except as documented, No as per HPI, No abnormal gait, No abnormal h (more content not included)... Normal [facility] PAP IG HPV APTIMA 16/18,45on 12-14-2024 ADEQ Comment Normal . [facility] Comment on above: Order Comment: Speci men Comment: [id number] Comment: No. of containers..01 ThinPrep Vial Result Comment: Sati sfactory for evaluation. Endocervical and/or squamous metaplastic cells (endocervical component) are present. Performed By: #### L 501.2450, L503.0105, L500.4050, L506.1000, L501.9520, L100.0100 #### [facility] [address] [place], [place], [id number] COMM . Normal . [facility] Comment on above: Order Comment: Speci men Comment: [id number] Comment: No. of containers..01 ThinPrep Vial Performed By: #### L 501.2450, L503.0105, L500.4050, L506.1000, L501.9520, L100.0100 #### [facility] [address] [place], [place], [id number] COMMENT Comment Normal . [facility] Comment on above: Order Comment: Speci men Comment: [id number] Comment: No. of containers..01 ThinPrep Vial Result Comment: This liquid based ThinPrep(R) pap test was screened with the use of an image guided system. Performed By: #### L 501.2450, L503.0105, L500.4050, L506.1000, L501.9520, L100.0100 #### [facility] [address] [place], [place], [id number] DIAG Comment Normal . [facility] Comment on above: Order Comment: Speci men Comment: [id number] Comment: No. of containers..01 ThinPrep Vial Result Comment: NEGA TIVE FOR INTRAEPITHELIAL LESION OR MALIGNANCY. Performed By: #### L 501.2450, L503.0105, L500.4050, L506.1000, L501.9520, L100.0100 #### [facility] [address] [place], [place], [id number] HPV APTIMA, HR Negative Normal Negative [facility] Comment on above: Order Comment: Speci men Comment: [id number] Comment: No. of containers..01 ThinPrep Vial Result Comment: This nucleic acid amplification test detects fourteen high- risk HPV types (16,18,31,33,35,39,45,51,52,56,58,59,66,68) without differentiation. Performed By: #### L 501.2450, L503.0105, L500.4050, L506.1000, L501.9520, L100.0100 #### [facility] [address] [place], [address] (831) HPV Kaylie Rfx Comment Normal . [facility] Comment on above: Order Comment: Speci men Comment: [id number] Comment: No. of containers..01 ThinPrep Vial Result Comment: Crit eria not met, HPV Genotype not performed. Performed at: - [address] [id number] Strike On Machine Operator: Viktoriya Vargas MD, Phone: [phone] Performed at: = - [facility] [id number] Strike On Machine Operator: Viktoriya Vargas MD, Phone: [phone] Performed By: #### L 501.2450, L503.0105, L500.4050, L506.1000, L501.9520, L100.0100 #### [facility] [address] [place], [place], [id number] PAPSMR Comment Normal . [facility] Comment on above: Order Comment: Speci men Comment: [id number] Comment: No. of containers..01 ThinPrep Vial Result Comment: The Pap smear is a screening test designed to aid in the detection of premalignant and malignant conditions of the uterine cervix. It is not a diagnostic procedure and should not be used as the sole means of detecting cervical cancer. Both false-positive and false-negative reports do occur. Performed By: #### L 501.2450, L503.0105, L500.4050, L506.1000, L501.9520, L100.0100 #### [facility] [address] [place], [place], [address] PERFORM Comment Normal . [facility] Comment on above: Order Comment: Speci men Comment: [id number] Comment: No. of containers..01 ThinPrep Vial Result Comment: Fauzia Henley, Behavioral Science Chair (ASCP) Performed By: #### L 501.2450, L503.0105, L500.4050, L506.1000, L501.9520, L100.0100 #### [facility] [address] [place], [place], [address] Cervical or vaginal specimen microscopic examination by liquid based cytology (reportOrdered By: Priscilla Nieto on 12-12-2024 Cytology report Cyto stain.thin prep Doc (Cvx/Vag) Comment . [facility] Comment on above: Criteria not met, HP V Genotype not performed.Performed at: - [address] [id number] Director: Viktoriya Vargas MD, Phone: [phone] at: =[facility] [id number] Director: Viktoriya Vargas MD, Phone: [phone] Cervical or vagninal specime n microscopic examination by cytology stain (reported asOrdered By: Priscilla Nieto on 12-12-2024 Cytology report Cyto stain Doc (Cvx/Vag) Comment . [facility] Comment on above: The Pap smear is a s creening test designed to aid in thedetection of premalignant and malignant conditions of theuterine cervix. It is not a diagnostic procedure andshould not be used as the sole means of detecting cervicalcancer. Both false-positive and false-negative reports dooccur. Detection in cervical specim en of any of human papilloma virus (HPV) 16, 18, 31, 33,Ordered By: Priscilla Nieto on 12-12-2024 HPV 16+18+31+33+35+39+45+51 +52+56+58+59+66+68 DNA Probe+sig amp Ql (Cvx) Negative Negative [facility] Comment on above: This nucleic acid am plification test detects fourteen high-risk HPV types (16,18,31,33,35,39,45,51,52,56,58,59,66,68)without differentiation. Laboratory - CytologyOrdered By: Priscilla Nieto on 12-12-2024 Behavioral Science Chair Cyto stain Nom (Cvx/Vag) [ID] Comment . [facility] Comment on above: Guillermina Henley Cytol ogventura (ASCP) Laboratory - Miscellaneous t estsOrdered By: Priscilla Nieto on 12-12-2024 Service comment (Unsp spec) [Interp] . . [facility] No Panel InformationOrdered By: Priscilla Nieto on 12-12-2024 Pap Smear Specimen Adequacy Comment . [facility] Comment on above: Satisfactory for jarvis luation. Endocervical and/or squamous metaplasticcells (endocervical component) are present. Technician Support Engineer Office Visit Reporton 12-12-2024 Technician Support Engineer Office Visit Report [facility] [address], [address] [place] [address] OFFICE VISIT Date of Service: 12/12/24 MR#: [id number] Acct: [id number] Name: CAALCHRISTINA XiaoAmber Helton Rep #: [id number] : 1980 Provider: Dr. 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) 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 Is patient in pain?: No Allergies Penicillins (PCN) Allergy (Severe, Verified 12/12/24 09:30) Anaphylaxis Medications ???Medication ???Instructions ???Recorded ???Confirmed ???Type lorazepam 0.5 mg tablet 0.5 mg PO DAILY PRN PRN Anxiety 12/12/24 History cholecalciferol (vitamin D3) 125 125 mcg PO DAILY 09/24/23 12/12/24 History mcg (5,000 unit) capsule phentermine 11.25 mg-topiramate ER 1 cap PO DAILY 09/24/23 12/12/24 History 69 mg capsule,ext.osazstd61 hr mphas (Qsymia) hydroxychloroquine 200 mg tablet 300 mg PO DAILY 09/25/23 12/12/24 History (Plaquenil) trazodone 50 mg tablet 50 mg PO QHS 09/25/23 12/12/24 His tory naproxen 500 mg tablet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 PUBLISHING EDITOR-C Status: REG CLI Ordering Dr: Rajinder Hinton PUBLISHING EDITOR-C Date: 10/26/24 Location: CVS Sex: F C Admitted: Reason For Study Reason For Study: SHORTNESS OF BREATH Procedure This was a 2D Doppler, Color Flow transthoracic echocardiogram. Exam performed in department. Left Ventricle Normal LV size. Left ventricular systolic function is normal. The left ventricular ejection fraction is 60 %. No regional wall motion abnormalities noted. Right Ventricle Normal RV size. Normal systolic function. Atria Normal left atrium. Normal right atrium. Mitral Valve Normal mitral valve. Tricuspid Valve Normal tricuspid valve. Aortic Valve Normal aortic valve. Trisinus/trileaflet aortic valve. Pulmonic Valve Normal pulmonic valve. Great Vessels Normal aortic root. The pulmonary artery is normal size. Inferior vena cava collapse with sniff. Pericardium/Pleural No pericardial effusion. MMode/2D Measurements Calculations LVIDd: 4.9 cm IVSd: 0.85 cm Ao root diam: 2.6 cm LVIDs: 3.1 cm LVPWd: 0.95 cm RVDd: 3.1 cm FS: 37.1 % LAV(MOD-bp): 51.8 ml LVAd ap4: 29.6 cm2 LVAd ap2: 27.6 cm2 LAV(MOD-bp) Indexed: 26.3 ml/m2 LVLd ap4: 7.9 cm LVLd ap2: 7.7 cm LAV(MOD-sp2): 48.6 ml EDV(MOD-sp4): 94.0 ml EDV(MOD-sp2): 86.2 ml LAV(MOD-sp4): 49.2 ml EDV(sp4-el): 93.9 ml EDV(sp2-el): 84.2 ml LVAs ap4: 16.5 cm2 LVAs ap2: 14.7 cm2 LVLs ap4: 6.6 cm LVLs ap2: 6.2 cm ESV(MOD-sp4): 37.6 ml ESV(MOD-sp2): 31.7 ml ESV(sp4-el): 35.1 ml ESV(sp2-el): 29.4 ml EF(MOD-sp4): 60.0 % EF(MOD-sp2): 63.2 % EF(sp4-el): 62.7 % SV(MOD-sp4): 56.4 ml SV(MOD-sp2): 54.5 ml SV(sp4-el): 58.8 ml SI(MOD-sp4): 28.7 ml/m2 SI(MOD-sp2): 27.7 ml/m2 LA A4 area: 17.6 cm2 LA dimension(2D): 3.0 cm RA A4 area: 11.8 cm2 TAPSE: 2.6 cm Time Measurements MV dec time: 0.18 sec Doppler Measurements Calculations MV E max juanis: 64.3 cm/sec Lat Peak E' Juanis: 16.7 cm/sec Med Peak E' Juanis: 16.9 cm/sec MV A max juanis: 72.0 cm/sec E/E' lat: 3.9 E/E' med: 3.8 MV E/A: 0.89 MV V2 max: 87.4 cm/sec MV P1/2t max juanis: 85.2 cm/sec Ao V2 max: 140.4 cm/sec MV max P.1 mmHg MV P1/2t: 50.1 msec Ao max P.9 mmHg MV V2 mean: 54.6 cm/sec Ao V2 mean: 100.3 cm/sec MV mean P.3 mmHg MV dec slope: 498.3 cm/sec2 Ao mean P.6 mmHg MV V2 VTI: 24.6 cm MVA(P1/2t): 4.4 cm2 Ao V2 VTI: 28.8 cm AV (velocity ratio): 0.83 LV V1 max: 128.0 cm/sec PA V2 max: 97.4 cm/sec LV V1 max P.6 mmHg LV V1 mean P.5 mmHg LV V1 mean: 85.5 cm/sec LV V1 VTI: 23.9 cm ECHO/Echo Complete Interpretation Summary Normal LV size. Left ventricular systolic function is normal. The left ventricular ejection fraction is 60 %. Structurally normal valves. Ordering Physician: Rajinder Hinton Referring Physician: Hilton Doty Performed By: Isaura Plasencia, DIANA, RVT 10/26/24 1433 Date Stone Quiñonez MD CC: PUBLISHING EDITOR-C Rajinder Hinton; Dr. Hilton Doty DO Date Dictated: 10/26/24 1250 Date Transcribed: 10/26/[address]: Signed Normal [facility] Echocardiogram study reportO rdered By: Stone Quiñonez on 10-26-2024 Study report [facility] Cardiovascular Services [address] [place] [address] Echo Complete 10/26/24 1250 MR#: [id number] Acct: [id number] Name: WANDA CAAL Rep #:[id number] : 1980 44 From: Stone Quintero Attending Dr: Rajinder Hinton, PUBLISHING EDITOR-C Status: REG CLI Ordering Dr: Rajinder Hinton Date : 10/26/24 Location: [facility] Sex: F C Admitted: Reason For Study Reason For Study: SHORTNESS OF BREATH Procedure This was a 2D Doppler, Color Flow transthoracic echocardiogram. Exam performed in department. Left Ventricle Normal LV size. Left ventricular systolic function is normal. The left ventricular ejection fraction is 60 %. No regional wall motion abnormalities noted. Right Ventricle Normal RV size. Normal systolic function. Atria Normal left atrium. Normal right atrium. Mitral Valve Normal mitral valve. Tricuspid Valve Normal tricuspid valve. Aortic Valve Normal aortic valve. Trisinus/trileaflet aortic valve. Pulmonic Valve Normal pulmonic valve. Great Vessels Normal aortic root. The pulmonary artery is normal size. Inferior vena cava collapse with sniff. Pericardium/Pleural No pericardial effusion. MMode/2D Measurements & Calculations LVIDd: 4.9 cm IVSd: 0.85 cm Ao root diam: 2.6 cm LVIDs: 3.1 cm LVPWd: 0.95 cm RVDd: 3.1 cm FS: 37.1 % LAV(MOD-bp): 51.8 ml LVAd ap4: 29.6 cm2 LVAd ap2: 27.6 cm2 LAV(MOD-bp) Indexed: 26.3 ml/m2 LVLd ap4: 7.9 cm LVLd ap2: 7.7 cm LAV(MOD-sp2): 48.6 ml EDV(MOD-sp4): 94.0 ml EDV(MOD-sp2): 86.2 ml LAV(MOD-sp4): 49.2 ml EDV(sp4-el): 93.9 ml EDV(sp2-el): 84.2 ml LVAs ap4: 16.5 cm2 LVAs ap2: 14.7 cm2 LVLs ap4: 6.6 cm LVLs ap2: 6.2 cm ESV(MOD-sp4): 37.6 ml ESV(MOD-sp2): 31.7 ml ESV(sp4-el): 35.1 ml ESV(sp2-el): 29.4 ml EF(MOD-sp4): 60.0 % EF(MOD-sp2): 63.2 % EF(sp4-el): 62.7 % SV(MOD-sp4): 56.4 ml SV(MOD-sp2): 54.5 ml SV(sp4-el): 58.8 ml SI(MOD-sp4): 28.7 ml/m2 SI(MOD-sp2): 27.7 ml/m2 LA A4 area: 17.6 cm2 LA dimension(2D): 3.0 cm RA A4 area: 11.8 cm2 TAPSE: 2.6 cm Time Measurements MV dec time: 0.18 sec Doppler Measurements & Calculations MV E max juanis: 64.3 cm/sec Lat Peak E' Juanis: 16.7 cm/sec Med Peak E' Juanis: 16.9 cm/sec MV A max juanis: 72.0 cm/sec E/E' lat: 3.9 E/E' med: 3.8 MV E/A: 0.89 MV V2 max: 87.4 cm/sec MV P1/2t max juanis: 85.2 cm/sec Ao V2 max: 140.4 cm/sec MV max P.1 mmHg MV P1/2t: 50.1 msec Ao max P.9 mmHg MV V2 mean: 54.6 cm/sec Ao V2 mean: 100.3 cm/sec MV mean P.3 mmHg MV dec slope: 498.3 cm/sec2 Ao mean P.6 mmHg MV V2 VTI: 24.6 cm MVA(P1/2t): 4.4 cm2 Ao V2 VTI: 28.8 cm AV (velocity ratio): 0.83 LV V1 max: 128.0 cm/sec PA V2 max: 97.4 cm/sec LV V1 max P.6 mmHg LV V1 mean P.5 mmHg LV V1 mean: 85.5 cm/sec LV V1 VTI: 23.9 cm ECHO/Echo Complete Interpretation Summary Normal LV size. Left ventricular systolic function is normal. The left ventricular ejection fraction is 60 %. Structurally normal valves. Ordering Physician: Rajinder Hinton Referring Physician: Hilton Doty Performed By: Isaura Plasencia, DIANA, RVT 10/26/24 1433 Date _ Stone Quiñonez MD CC: PUBLISHING EDITOR-C Rajinder Hinton; Dr. Hilton Doty, ~ Date Dictated: 10/26/24 1250 Date Transcribed: 10/26/24[address] Judge: Signed [facility] Work [facility]24 [facility] Telephone (FAMPWS) WANDA CAAL ([id number]) 1980 F Date Time Provider Department 10/17/24 RAJINDER HINTON [facility] During your visit today, we recorded the following information about you: Gina Sparks LPN 10/17/2024 2:32 PM Signed Patient calling asking if her lab results are back she had done at [facility] on 10/14? See in lab section scanned in. Patient was going to try to go back to work tomorrow but still feels short of breath with not much activity, and fatigued. Please advise Rajinder Hinton APRN.HOME CARE ADMINISTRATOR 10/17/2024 2:38 PM Signed Please let patient know her BNP is normal. Patient should follow up with Dr. Doty next week as scheduled. Dasia Hopper MA 10/17/2024 3:27 PM Signed Pt notified and verbalized understanding. Pt asking if you have any further recommendations to help with the SOB in the meantime? FRENCH Nelson Danielle, KJ.[facility] 10/17/2024 3:39 PM Signed Has patient scheduled echo? If so when is it? In the meantime I would recommend watching her salt and water intake, How much lasix is she taking currently? If she is only taking 20mg daily I would have increase to 40mg for the next 3 days to see if there is an improvement in her symptoms. Lissa Cedillo, ELSIE 10/17/2024 4:00 PM Signed Pt called and is notified of providers message and instructions. Pt voices understanding. Pt states she take 20 mg of Lasix daily, she is going to double it for the next 3 days and will call back in to let us know how she is doing. She states she always feels thirsty. She said Dr Doty told her to get hard candy to suck on, and she said she will do that. She said she doesn't know if it's her other medication that makes her so thirsty. Pt was asking how much water the provider would want her to limit herself to. ELSIE Bishop Stephanie, RN 10/17/2024 4:21 PM Signed Patient calls back and states that she does not take lasix. Patient was taken off of lasix. Patient take chlorthalidone 25 mg daily for edema. Please review and advise, ELSIE Iqabl Danielle, KJ.[facility] 10/17/2024 4:25 PM Signed I want her to increase her chlorthalidone to 50mg daily x3 days and let me know if symptoms improve. Lissa Cedillo RN 10/17/2024 4:41 PM Signed Pt called and is notified of providers results and instructions. Pt voices understanding. Lissa Cedillo RN Allergies As of Date: 10/17/2024 Noted Allergy Reaction PENICILLINS 08/30/2013 16 - Unknown Date Reviewed: 10/14/2024 Reviewed by: Dasia Hopper MA - Fully Assessed Reason for Visit: Results [95] Prescriptions as of 10/17/2024 - chlorthalidone (HYGROTON) 25 mg tablet Take 1 tablet by mouth once daily. As needed for edema - buPROPion (WELLBUTRIN) 75 mg tablet Take 2 tablets in the AM and 2 tablet in the afternoon - phentermine-topiramat e ER (QSYMIA) 11.25-69 mg 24 Hr Capsule Take 1 capsule by mouth once daily for 90 days. BMI 31.32 - hydrOXYchloroQUINE (PLAQUENIL) 200 mg tablet Take 1 tablet by mouth once daily. - potassium chloride (K-TAB) 10 mEq tablet Take 1 tablet by mouth two times a day with meals. - traZODone (DESYREL) 50 mg tablet Take 1-2 tablets by mouth daily at bedtime. - metroNIDAZOLE 0.75 % cream Apply to affected area two times a day. - hydrocortisone 2.5 % cream Apply 1 application to affected area two times a day as needed (hemorrhoids). Location: hemorrhoids - naproxen (NAPROSYN) 500 mg tablet Take 1 tablet by mouth two times a day as needed (for pain/inflammation). Take with food. - Cholecalciferol, Vitamin D3, 2,000 unit cap Take 2 tablets by mouth once daily. Problem List As Of Date 10/17/2024 Noted Resolved Varicose veins of both legs with edema [I83.893]09/15/2014 Raynaud phenomenon [I73.00] 09/15/2014 Stiffness of hand joint [M25.649] 09/15/2014 Inflammatory polyarthropathy (HCC) [M06.4] 04/14/2015 Obesity, Class I, BMI 30-34.9 [E66.811] 01/16/2016 Symptomatic varicose veins [I83.899] 06/27/2016 Obesity, [...] flashes [R23.2] 10/28/2022 Situational depression [F43.21] 11/27/2022 Varicose veins of both lower extremities with c*06/03/2023 Nausea [R11.0] 04/25/2024 SOB (shortness of breath) [R06.02] 04/25/2024 Hypokalemia [E87.6] 04/25/2024 Inflammatory arthritis [M19.90] 04/25/2024 Perimenopausal symptoms [N95.1] 08/02/2024 Medications Discontinued During This Encounter Pres (more content not included)... Normal [facility] CNOVon 10-14-2024 CNOV Office Visit (FAMPWS ) WANDA CAAL ([id number]) 1980 F Date Time Provider Department 10/14/24 1:40 PM RAJINDER HINTON During your visit today, we recorded the following information about you: Pulse Blood pressure Weight 81/minute 102/71 85 kg Rajinder Hinton, MERCHANDISE MARKER.HOME CARE ADMINISTRATOR 10/14/2024 1:40 PM Signed Chief Complaint Patient presents with: ER F/U HPI Wanda Helton Axel is a 44 year old female who presents here today for Above Complaints.. Patient presents for hospital follow up for SOB. SOB started 3 months ago and has progressively gotten worse. She had CXR, troponin, EKG and ddimer completed in ER which were all negative. Patient also had US this am which was negative for DVT. Reports SOB with talking, mild activity. Worse with stairs. Past medical history, appointments, medications, allergies reviewed. Previous Medical History PAST MEDICAL HISTORY Diagnosis Date MAXIM positive 09/2014 Inflammatory polyarthropathy (HCC) Kidney stone with stent Raynaud's disease Previous Surgical History PAST SURGICAL HISTORY Procedure Laterality Date [facility] (MISSED AB 1ST TRIMESTER) 2001 ESWL Right 05/08/2017 EXTRACTION, ERUPTED TOOTH OR EXPOSED ROOT (ELEVATION AND/OR FORCEPS REMOVAL) GALLBLADDER/EF TUBAL LIGATION HX 2006 Family History FAMILY HISTORY Problem Relation Age of Onset Alcohol/Drug Father Breast Cancer Maternal Grandmother Hypertension Maternal Grandmother Cancer Paternal Grandmother Breast Cancer Paternal Aunt x2 Cancer Paternal Aunt bone Patient Allergies ALLERGIES Allergen Reactions Penicillins Unknown Current Medications Current Outpatient Medications on File Prior to Visit Medication Sig chlorthalidone (HYGROTON) 25 mg tablet Take 1 tablet by mouth once daily. As needed for edema buPROPion (WELLBUTRIN) 75 mg tablet Take 2 tablets in the AM and 2 tablet in the afternoon phentermine-topiramat e ER (QSYMIA) 11.25-69 mg 24 Hr Capsule Take 1 capsule by mouth once daily for 90 days. BMI 31.32 hydrOXYchloroQUINE (PLAQUENIL) 200 mg tablet Take 1 tablet by mouth once daily. potassium chloride (K-TAB) 10 mEq tablet Take 1 tablet by mouth two times a day with meals. traZODone (DESYREL) 50 mg tablet Take 1-2 tablets by mouth daily at bedtime. metroNIDAZOLE 0.75 % cream Apply to affected area two times a day. hydrocortisone 2.5 % cream Apply 1 application to affected area two times a day as needed (hemorrhoids). Location: hemorrhoids naproxen (NAPROSYN) 500 mg tablet Take 1 tablet by mouth two times a day as needed (for pain/inflammation). Take with food. furosemide (LASIX) 20 mg tablet Take 0.5-1 tablets by mouth daily with breakfast. Cholecalciferol, Vitamin D3, 2,000 unit cap Take 2 tablets by mouth once daily. No current facility-administered medications on file prior to visit. Social History Social History Tobacco Use Smoking status: Never Smokeless tobacco: Never Vaping Use Vaping status: Never Used Substance Use Topics Alcohol use: Yes Comment: occ Drug use: No Review of Symptoms REVIEW OF SYSTEMS SEE HPI EXAM: BP 102/71 Pulse 81 Wt 85 kg (187 lb 6.3 oz) LMP 12/29/2020 SpO2 100% BMI 29.35 kg/m? General Appearance: Well appearing, alert, in no acute distress, well-hydrated, well nourished. Lungs: Lungs clear to auscultation. No wheezing, rhonchi, rales.. Heart: RRR without murmur, gallop, or rubs. No ectopy. Peripheral Pulses: Normal. Health Maintenance List HIV Screening Never done Mammogram Screening due on 07/01/2022 Covid-19 Vaccine(3 - season) due on 04/03/2024 DTaP,Tdap,Td Vaccine(2 - Td or Tdap) due on 01/24/2025 Cervical Cancer Screening due on 01/04/2026 Hepatitis B Vaccine Completed Influenza Vaccine Completed Hepatitis C Screening Completed ASSESSMENT/PLAN: 1. Bilateral leg edema - ICD9: 782.3, ICD10: R60.0 (primary diagnosis) - ECHO - PERFLUTREN LIPID MICROSPHERES 1.1 MG/ML INJECTION IN NS 10 ML - SODIUM CHLORIDE 0.9 % (FLUSH) INJECTION SYRINGE - NT PRO BNP 2. SOB (shortness of breath) - ICD9: 786.05, ICD10: R06.02 - ECHO - PERFLUTREN LIPID MICROSPHERES 1.1 MG/ML INJECTION IN NS 10 ML - SODIUM CHLORIDE 0.9 % (FLUSH) INJECTION SYRINGE 3. Obesity, Class I, BMI 30-34.9 - ICD9: 278.00, ICD10: E66.811 - SODIUM CHLORIDE 0.9 % (FLUSH) INJECTION SYRINGE Rajinder Hinton APRN.HOME CARE ADMINISTRATOR Allergies As of Date: 10/14/2024 Noted Allergy Reaction PENICILLINS 08/30/2013 16 - Unknown Date Reviewed: 10/14/2024 Reviewed by: Dasia Hopper MA - Fully Assessed Reason for Visit: ER F/U [41] Primary Visit Diagnosis:Bilateral leg edema [R60.0] Other Visit Diagnoses:SOB (shortness of breath) [R06.02] Obesity, Class I, BMI 30-34.9 [E66.811] Order(s):ECHO [[id number]] Order #: [id number]: 1 FUTURE NT PRO BNP [SQNTBNP] Order #: [id number] FUTURE Prescriptions as of 0 (more content not included)... Normal [facility] CNPNon 10-14-2024 [facility] WANDA [facility]AL ([id number]) 1980 F Date Time Provider Department 10/14/24 RAJINDER HINTON During your visit today, we recorded the following information about you: Frank Obando RN 10/14/2024 3:22 PM Signed Patient calls to report that she is having trouble scheduling ECHO with [facility] until out into November because it doesn't say stat. Patient asking if order can be changed to STAT and sent to [facility] scheduling. ELSIE Hsieh Danielle, KJ.HOME CARE ADMINISTRATOR 10/14/2024 3:41 PM Signed New order placed. Please fax to [facility]. Dasia Hopper MA 10/17/2024 10:17 AM Signed New stat order faxed to [facility] Dasia Hopper MA Allergies As of Date: 10/14/2024 Noted Allergy Reaction PENICILLINS 08/30/2013 16 - Unknown Date Reviewed: 10/14/2024 Reviewed by: Dasia Hopper MA - Fully Assessed Reason for Visit: Patient Question [1577] Primary Visit Diagnosis:Bilateral leg edema [R60.0] Other Visit Diagnosis:SOB (shortness of breath) [R06.02] Order(s):ECHO [108024] Order #: [id number]: 1 FUTURE Prescriptions as of 10/17/2024 - chlorthalidone (HYGROTON) 25 mg tablet Take 1 tablet by mouth once daily. As needed for edema - buPROPion (WELLBUTRIN) 75 mg tablet Take 2 tablets in the AM and 2 tablet in the afternoon - phentermine-topiramat e ER (QSYMIA) 11.25-69 mg 24 Hr Capsule Take 1 capsule by mouth once daily for 90 days. BMI 31.32 - hydrOXYchloroQUINE (PLAQUENIL) 200 mg tablet Take 1 tablet by mouth once daily. - potassium chloride (K-TAB) 10 mEq tablet Take 1 tablet by mouth two times a day with meals. - traZODone (DESYREL) 50 mg tablet Take 1-2 tablets by mouth daily at bedtime. - metroNIDAZOLE 0.75 % cream Apply to affected area two times a day. - hydrocortisone 2.5 % cream Apply 1 application to affected area two times a day as needed (hemorrhoids). Location: hemorrhoids - naproxen (NAPROSYN) 500 mg tablet Take 1 tablet by mouth two times a day as needed (for pain/inflammation). Take with food. - furosemide (LASIX) 20 mg tablet Take 0.5-1 tablets by mouth daily with breakfast. - Cholecalciferol, Vitamin D3, 2,000 unit cap Take 2 tablets by mouth once daily. Problem List As Of Date 10/14/2024 Noted Resolved Varicose veins of both legs with edema [I83.893]09/15/2014 Raynaud phenomenon [I73.00] 09/15/2014 Stiffness of hand joint [M25.649] 09/15/2014 Inflammatory polyarthropathy (HCC) [M06.4] 04/14/2015 Obesity, Class I, BMI 30-34.9 [E66.811] 01/16/2016 Symptomatic varicose veins [I83.899] 06/27/2016 Obesity, [...] flashes [R23.2] 10/28/2022 Situational depression [F43.21] 11/27/2022 Varicose veins of both lower extremities with c*06/03/2023 Nausea [R11.0] 04/25/2024 SOB (shortness of breath) [R06.02] 04/25/2024 Hypokalemia [E87.6] 04/25/2024 Inflammatory arthritis [M19.90] 04/25/2024 Perimenopausal symptoms [N95.1] 08/02/2024 Encounter Status:Closed by RAJINDER HINTON on 10/17/24 Normal [facility] L503.7505on 10-14-2024 proBNP < 36 Normal <=450 [facility] Comment on above: Result Comment: Hear t Failure Unlikely: < 300 pg/mL Heart Failure Likely < 50 Years: > 450 pg/mL 50-75 Years: > 900 pg/mL >75 Years: > 1800 pg/mL Performed By: #### L 501.2450, L503.0105, L500.4050, L506.1000, L501.9520, L100.0100 #### [facility] Laboratory [address] [place], [address] No Panel InformationOrdered By: Laura Rai on 10-14-2024 [id number]-[id number] Natriuretic Peptide II < 36 pg/mL <450 [facility] Comment on above: Heart Failure Unlike ly: < 300 pg/mLHeart Failure Likely< 50 Years: > 450 pg/mL50-75 Years: > 900 pg/mL>75 Years: > 1800 pg/mL Venous Duplex US, Unilateral on 10-14-2024 Venous Duplex US, Unilateral [facility] [address] [facility] [place] [address] Venous Duplex US, Unilateral 10/14/24 1053 MR#: [id number] Acct: [id number] Name: WANDA CAAL Rep #: [id number] : 1980 44 From: Derek Barone MD Attending Dr: JAYE Montero Status: DEP CLI Ordering Dr: Laura Rai Date: 10/14/24 Location: CVS Sex: F C Admitted: Reason For Study Reason For Study: Left leg pain RIGHT LEFT CFV is compressible, spontaneous, phasic, competent GSV is normal. and demonstrates normal augmentation. CFV is compressible, spontaneous, phasic, competent, Procedure and demonstrates normal augmentation. This is a venous duplex using B-mode, color flow and FV is compressible, spontaneous, phasic, competent spectral Doppler. and demonstrates normal augmentation. Exam performed in department. POP V is compressible, spontaneous, phasic, competent A preliminary report was called and/or faxed to [facility] and demonstrates normal augmentation. JAYE and Dr. Doty (PCP). T/P Trunk is compressible. PTV is compressible. LT PerV is compressible. VL/Venous Duplex US, Unilateral Interpretation Summary Deep veins of the left lower extremity are patent and compressible segmentally. There is no evidence of left lower extremity deep vein thrombosis. The left great saphenous vein appears patent and compressible segmentally. Ordering Physician: Laura Rai Referring Physician: Hilton Doty Performed By: Rochelle Taylor RVT 10/24/24 1220 Date Derek Barone MD CC: JAYE Montero; Dr. Hilton Doty DO Date Dictated: 10/14/24 1053 Date Transcribed: 10/24/[address] Judge: Signed Normal [facility] 12 Lead EKGon 10-13-2024 12 Lead EKG [facility] Cardiovascular Services [address] [place] [address] 12 Lead EKG 10/13/24 1723 MR#: [id number] Acct: [id number] Name: WANDA CAAL Rep #: [id number] : 1980 44 From: Smita Gongora MD Attending Dr: Status: DEP ER Ordering Dr: Charlie Lombardo DO Date: 10/13/24 Location: ED Sex: F C Admitted: Test Reason : Blood Pressure : */* mmHG Vent. Rate : 75 BPM Atrial Rate : 75 BPM P-R Int : 146 ms QRS Dur : 108 ms QT Int : 418 ms P-R-T Axes : 68 86 75 degrees QTcB Int : 466 ms Normal sinus rhythm Normal ECG Confirmed by RODERICK ADKINS, LUCIANO ([id number]), editor city RODOLFO PIEDRA ([id number]) on 10/17/2024 10:48:12 AM Referred By: Charlie Lombardo Confirmed By: LUCIANO GONGORA MD 10/17/24 104 Date Smita Gongora MD CC: Dr. Hilton Doty DO; Dr. Charlie Lombardo DO Signed Normal [facility] Absolute lymphocyte countOrd ered By: Charlie Lombardo on 10-13-2024 Lymphocytes Auto (Unsp spec) [#/Vol] 2.32 10*3/uL 0.83-4.51 [facility] Absolute neutrophil countOrd ered By: Charlie Lombardo on 10-13-2024 Neutrophils (Bld) [#/Vol] 4.5 10*3/uL 2.0-7.7 [facility] Anion gap in Serum or Plasma Ordered By: Charlie Lombardo on 10-13-2024 Anion gap [Moles/Vol] 14 mmol/L - [facility] Automated lymphocyte count a s percentage of total leukocytesOrdered By: Charlie Lombardo on 10-13-2024 Lymphocytes/100 WBC Auto (Unsp spec) 30.6 % [facility] BUN/creatinine ratioOrdered By: Charlie Lombardo on 10-13-2024 Urea nitrogen/Creatinine [Mass ratio] 14.3 mg/mg - [facility] Basic Metabolic Profile (BMP )on 10-13-2024 BUN/CRE 14.3 RATIO Normal 05-22 [facility] Comment on above: Performed By: #### L 501.2450, L503.0105, L500.4050, L506.1000, L501.9520, L100.0100 #### [facility] Laboratory [address] [place], [address] Calcium [Mass/Vol] 9.8 mg/dL Normal 7.6-11.0 [facility] Comment on above: Performed By: #### L 501.2450, L503.0105, L500.4050, L506.1000, L501.9520, L100.0100 #### [facility] [address] [place], [address] Chloride [Moles/Vol] 99 mmol/L Normal 98-108 [facility] Comment on above: Performed By: #### L 501.2450, L503.0105, L500.4050, L506.1000, L501.9520, L100.0100 #### [facility] [address] [place], [address] CO2 [Moles/Vol] 23.6 mmol/L Normal 21.0-32.0 [facility] Comment on above: Performed By: #### L 501.2450, L503.0105, L500.4050, L506.1000, L501.9520, L100.0100 #### [facility] [address] [place], [address] Creatinine [Mass/Vol] 0.89 mg/dL Normal 0.70-1.20 [facility] Comment on above: Performed By: #### L 501.2450, L503.0105, L500.4050, L506.1000, L501.9520, L100.0100 #### [facility] [address] [place], [address] ECRCL 88.51 ml/min Normal 50-250 [facility] Comment on above: Performed By: #### L 501.2450, L503.0105, L500.4050, L506.1000, L501.9520, L100.0100 #### [facility] [address] [place], [address] GAP 14 Normal 5-15 [facility] Comment on above: Performed By: #### L 501.2450, L503.0105, L500.4050, L506.1000, L501.9520, L100.0100 #### [facility] [address] [place], [address] GFR/1.73 sq M.predicted among non-blacks MDRD (S/P/Bld) [Vol rate/Area] 82 mL/min/{1.73_m2} Normal >60 [facility] Comment on above: Result Comment: mL/m in/1.73m2 CKD-EPI Creatinine Equation (2020) Performed By: #### L 501.2450, L503.0105, L500.4050, L506.1000, L501.9520, L100.0100 #### [facility] [address] [place], [address] Glucose [Mass/Vol] 92 mg/dL Normal 70-99 [facility] Comment on above: Performed By: #### L 501.2450, L503.0105, L500.4050, L506.1000, L501.9520, L100.0100 #### [facility] [address] [place], [address] Potassium [Moles/Vol] 3.6 mmol/L Normal 3.3-5.1 [facility] Comment on above: Result Comment: Hemo lysis present, Results??could be affected. ?? Performed By: #### L 501.2450, L503.0105, L500.4050, L506.1000, L501.9520, L100.0100 #### [facility] [address] [place], [address] Sodium [Moles/Vol] 136 mmol/L Normal 133-145 [facility] Comment on above: Performed By: #### L 501.2450, L503.0105, L500.4050, L506.1000, L501.9520, L100.0100 #### [facility] [address] [place], [address] Urea nitrogen [Mass/Vol] 13 mg/dL Normal 4-19 [facility] Comment on above: Performed By: #### L 501.2450, L503.0105, L500.4050, L506.1000, L501.9520, L100.0100 #### [facility] [address] [place], [address] Basophil percentageOrdered B y: Charlie Lombardo on 10-13-2024 Basophils/100 WBC (Bld) 0.4 % 0-1 [facility] Blood manual differential co mment interpretation (narrative result)Ordered By: Charlie Lombardo on 10-13-2024 Manual differential comment Anselmo (Bld) [Interp] SCANNED [facility] CBC W/Diff, Automatedon 10-01 SMEAR COMMENT SCANNED Normal [facility] Comment on above: Performed By: #### L 501.2450, L503.0105, L500.4050, L506.1000, L501.9520, L100.0100 #### [facility] [address] [place], [address] Carbon dioxide, total [Moles /volume] in Central venous bloodOrdered By: Charlie Lombardo on 10-13-2024 CO2 [Moles/Vol] 23.6 mmol/L 21.0-32.0 [facility] Chest PA and Lateralon 10-13 Chest PA and Lateral [facility] Imaging Services [address] [place], [place] [id number] (117 Chest PA and Lateral MR#: [id number] Acct: [id number] Name: WANDA CAAL Rep #: [id number] : 1980 F 44 From: Lazaro Noriega i, MD PCP: Dr. Hilton Doty DO Status: REG ER Study: Chest PA and Lateral Date of Exam: 10/13/24 Exam# [id number] Ordering Dr: Charlie Lombardo DO PROCEDURE: CHEST PA AND LATERAL 10/13/2024 REASON FOR EXAM: PAIN, SOB TECHNIQUE: Frontal and lateral views of the chest. COMPARISON: Chest x-ray dated 04/04/2024. FINDINGS: The heart size is normal. The mediastinal contour is unremarkable. The lungs are clear. The bones are unremarkable. Surgical clips seen within the right upper abdominal quadrant, likely from prior cholecystectomy procedure. RAD/Chest PA and Lateral IMPRESSION: No acute pulmonary disease. Reading Location: [id number] CC: Dr. Hilton Doty DO; Dr. Charlie Lombardo DO Justice Court Judge: Signed Normal [facility] Chloride assayOrdered By: Quoc Lombardo on 10-13-2024 Chloride [Moles/Vol] 99 mmol/L 98-108 [facility] D-Dimer Quantitative (DVT/PE )on 10-13-2024 D-DIMER QUANT < 0.27 Low 0.27-0.49 [facility] Comment on above: Result Comment: NORM AL D-Dimer level (<0.50) indicates no DVT or PE. NORMAL D-Dimer level (<0.50) indicates no DVT or PE. Performed By: #### L 501.2450, L503.0105, L500.4050, L506.1000, L501.9520, L100.0100 #### [facility] [address] [place], [address] D-dimer measurement for deep venous thrombosisOrdered By: Charlie Lombardo on 10-13-2024 D-Dimer Quantitative (PE/DVT) < 0.27 FEU/ug/m Low 0.27-0.49 [facility] Comment on above: NORMAL D-Dimer level (<0.50) indicates no DVT or PE. NORMAL D-Dimer level (<0.50) indicates no DVT or PE. Emergency Department Summary on 10-13-2024 Emergency Department Summary [facility] Medical Records Department [address] [place] [address] Emergency Department Summary 10/13/24 MR#: [id number] Acct: [id number] Name: WANDA CAAL Rep #: [id number] : 1980 44 From: Charlie Fraser PCP: Dr. Hilton Doty DO Status:DEP ER Location: ED HPI History of Present Illness Chief Complaint: Shortness of Breath Informant: patient Narrative Narrative: Presents with progressive dyspnea over the past 3 months. Yesterday had chest pain on the right side. No cough. No recent travel or surgeries. No history of PE or DVT. History of varicose veins. She saw her PCP with symptoms started was told she need to see her vascular doctor. She did follow-up with the vascular team states she had ultrasounds negative for DVT. However reported additional testing was required. She does not smoke. Denies family history of MIs young age. Admits hypertension, hyperlipidemia or diabetes. PE Risk Factors: Negative for Cancer, OCP + Smoking + > 35, Prior DVT or PE, Recent immobilization, Recent surgery or Recent travel Prior similar symptoms: No PFSH PFSH Medical History Status post hysteroscopy COVID-19 Wears dentures Wears glasses Anxiety Rheumatoid arthritis Arthritis Kidney stones Former smoker History of edema History of ureteral stone Home Medications ???Medication ???Instructions ???Recorded ???Last Taken ???Type naproxen 500 mg tablet 500 mg PO BID PRN PRN Pain Score 0 11/25/19 Unknown Rx -05/12 #20 tabs chlorthalidone 25 mg tablet 25 mg PO DAILY 03/12/20 09/28/23 H istory lorazepam 0.5 mg tablet 0.5 mg PO DAILY PRN PRN Anxiety Unknown History bupropion HCl 75 mg tablet 75 mg PO DIRECTED 09/24/2309/04 19:30 History cholecalciferol (vitamin D3) 125 125 mcg PO DAILY 09/24/23 09/28/23 History mcg (5,000 unit) capsule phentermine 11.25 mg-topiramate ER 1 cap PO DAILY 09/24/23 09/28/23 12:40 History 69 mg capsule,ext.[id number] hr mphas (Qsymia) hydroxychloroquine 200 mg tablet 300 mg PO DAILY 09/25/23 09/28/23 19:30 History (Plaquenil) trazodone 50 mg tablet 50 mg PO QHS 09/25/23 09/27/23 His tory naproxen 500 mg tablet (Naprosyn) 500 mg PO BID PRN pain #20 tabs 0 02/05/24 Unknown Rx ondansetron 4 mg disintegrating 4 mg PO Q8H PRN PRN Nausea #10 tab s 02/05/24 Unknown Rx tablet potassium chloride 20 mEq 20 meq PO BID #6 tabs 04/04/24 Unk nown Rx tablet,extended release dexamethasone 6 mg tablet 6 mg PO DAILY #5 tabs 05/26/24 Unk nown Rx Allergy/AdvReac Type Severity Reaction Status Date / Time Penicillins (PCN) Allergy Severe Anaphylaxis Verified 10/13/24 17:17 Surgical History Status post hysteroscopic ablation of endometrium ( 09/29/23) Hx of varicose vein stripping Hx of cystoscopy Hx of dilation and curettage Hx of tooth extraction History of laparoscopic cholecystectomy S/P tubal ligation Social History current occupational status: employed 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 Smoking Status: Former smoker alcohol intake: never substance use type: does not use seatbelt use: always do you feel safe at home: Yes ROS ROS ED Constitutional Constitutional ED: Denies chills, fever(s) or sweats ENT ENT ED: Denies sore throat Cardiovascular Cardiovascular: Reports chest pain; Denies leg edema, palpitations or racing heartbeat Respiratory/Chest Respiratory/Chest: Reports dyspnea and dyspnea on exertion; Denies cough Gastrointestinal Gastrointestinal: Denies abdominal pain, diarrhea, nausea or vomiting Genitourinary Genitourinary ED: Denies dysuria, hematuria or urinary frequency Musculoskeletal Musculoskeletal: Denies back pain, extremity pain or neck pain Integumentary Denies rash or wounds Neurologic Neurologic: Denies headache(s), paresthesias or weakness EXAM Physical Exam Const Vital Signs: 10/13/24 17:15 10/13/24 18:37 10/13/24 19:02 Temperature 97.6 F L Temperature Source Temporal Pulse Rate 87 78 Respiratory Rate 16 15 Respiratory Effort Normal Non-Labored Respiratory Depth Normal Respiratory Pattern Normal Blood Pressure 117/87 H 129/76 H Blood Pressure Mean 97 93 Pulse Ox 100 100 Oxygen Delivery Method Room Air Room Air 10/13/24 20:00 10/13/24 20:13 10/13/24 20:15 Temperature Temperature Source Pulse Rate 72 69 66 Respiratory Rate 18 23 H 21 H Respiratory Effort Respiratory Depth Respiratory Pattern Blood Pressure 122/72 H 113/72 Blood Pressure Mean 88 84 Pulse Ox 96 100 100 Oxygen Delivery Method Room Air 10/13/24 20:30 10/13/24 20:45 10/13 (more content not included)... Normal [facility] Eosinophil percentageOrdered By: Charlie Lombardo on 10-13-2024 Eosinophils/100 WBC (Bld) 1.3 % 0-5 [facility] Erythrocyte distribution wid th ratioOrdered By: Charlie Lombardo on 10-13-2024 Erythrocyte distribution width (RBC) [Ratio] 13.2 % 11.6-14.6 [facility] Erythrocyte distribution wid th standard deviationOrdered By: Charlie Lombardo on 10-13-2024 Erythrocyte distribution width (RBC) [Entitic vol] 43.6 fL 35.1-43.9 [facility] Erythrocyte distribution width (RBC) [Ratio] 43.6 fl 35.1-43.9 [facility] Estimation of creatinine eduar aranceOrdered By: Charlie Lombardo on 10-13-2024 Estimated Creatinine Clearance Calc 88.51 ml/min 50-250 [facility] GFR/1.73 sq M.predicted rosina g non-blacks MDRD (S/P/Bld) [Vol rate/Area]Ordered By: Charlie Lombardo on 10-13-2024 Estimated GFR (MDRD) Non-Af Amer 82 >60 [facility] Comment on above: mL/min/1.73m2 CKD-EP I Creatinine Equation (2020) Glomerular filtration rate ( GFR) estimation/1.73 sq m using serum, plasma, or whole bOrdered By: Charlie Lombardo on 10-13-2024 GFR/1.73 sq M.predicted among non-blacks MDRD (S/P/Bld) [Vol rate/Area] 82 mL/min/{1.73_m2} >60 [facility] Comment on above: mL/min/1.73m2 CKD-EP I Creatinine Equation (2020) Hematocrit Auto (Bld) [Volum e fraction]Ordered By: Charlie Lombardo on 10-13-2024 Hematocrit (Bld) [Volume fraction] 43.5 % 37-47 [facility] Hemoglobin measurementOrdere d By: Charlie Lombardo on 10-13-2024 Hemoglobin (Bld) [Mass/Vol] 14.5 g/dL 12.0-15.0 [facility] Immature granulocytes/100 WB C Auto (Bld)Ordered By: Charlie Lombardo on 10-13-2024 Immature granulocytes/100 WBC (Bld) 0.300 % 0.0-0.9 [facility] Comment on above: IG% - Immature Granu locytes (promyelocytes, myelocytes and metamyelocytes) > 1% indicates that a LEFT SHIFT is Present. L499.0042on 10-13-2024 Trop T High Sen 6 ng/L Normal <=14 [facility] Comment on above: Performed By: #### L 501.2450, L503.0105, L500.4050, L506.1000, L501.9520, L100.0100 #### [facility] Laboratory [address] [place], [place], [id number] L499.0043on 10-13-2024 Trop T High Sen Normal <=14 [facility] Comment on above: Result Comment: Canc elled via OM: Order cancelled - Patient discharged Performed By: #### L 501.2450, L503.0105, L500.4050, L506.1000, L501.9520, L100.0100 #### [facility] [address] [place], [address] L501.4021on 10-13-2024 Trop T High Sen < 6 Normal <=14 [facility] Comment on above: Result Comment: Hemo lysis present, Results??could be affected. ?? Performed By: #### L 501.4021 #### [facility] [address] [place], [address] Lymphocytes Auto (Unsp spec) [#/Vol]Ordered By: Charlie Lombardo on 10-13-2024 Lymphocytes (Bld) [#/Vol] 2.32 10*3/uL 0.83-4.51 [facility] Lymphocytes/100 WBC Auto (Un sp spec)Ordered By: Charlie Lombardo on 10-13-2024 Lymphocytes/100 WBC (Bld) 30.6 % 19-41 [facility] MCV (mean corpuscular volume ) determinationOrdered By: Charlie Lombardo on 10-13-2024 MCV (RBC) [Entitic vol] 89.9 fL 81-99 [facility] Manual differential comment Anselmo (Bld) [Interp]Ordered By: Charlie Lombardo on 10-13-2024 Differential Comment SCANNED [facility] Mean corpuscular hemoglobin (MCH) determinationOrdered By: Charlie Lombardo on 10-13-2024 MCH (RBC) [Entitic mass] 30.0 pg 27.0-32.0 [facility] Mean corpuscular hemoglobin concentration (MCHC) determinationOrdered By: Charlie Lombardo on 10-13-2024 MCHC (RBC) [Mass/Vol] 33.3 g/dL 32-36 [facility] Mean platelet volume determi nationOrdered By: Charlie Lombardo on 10-13-2024 Platelet mean volume (Bld) [Entitic vol] 10.2 fL 6.2-12.0 [facility] Monocyte percentageOrdered B y: Charlie Lombardo on 10-13-2024 Monocytes/100 WBC (Bld) 8.4 % 0-10 [facility] Neutrophil percentageOrdered By: Charlie Lombardo on 10-13-2024 Neutrophils/100 WBC (Bld) 59.0 % 47-70 [facility] No Panel InformationOrdered By: Charlie Lombardo on 10-13-2024 Troponin T High Sensitivity < 6 ng/L <14 [facility] Comment on above: Hemolysis present, R esults could be affected. Nucleated red blood cell per centageOrdered By: Charlie Lombardo on 10-13-2024 Nucleated RBC/100 WBC (Bld) [Ratio] 0 % 0-5 [facility] Platelet countOrdered By: Quoc olivas Munira on 10-13-2024 Platelets (Bld) [#/Vol] 243 10*3/uL 150-450 [facility] Potassium (Unsp spec) [Mass/ Vol]Ordered By: Charlie Lombardo on 10-13-2024 Potassium [Moles/Vol] 3.6 mmol/L 3.3-5.1 [facility] Comment on above: Hemolysis present, R esults could be affected. Potassium measurement (mass/ volume)Ordered By: Charlie Lombardo on 10-13-2024 Potassium (Unsp spec) [Mass/Vol] 3.6 mmol/L 3.3-5.1 [facility] Comment on above: Hemolysis present, R esults could be affected. ,Urineon 10-13-2024 Beta HCG ( test) Ql (U) Negative Normal [facility] Comment on above: Result Comment: Very dilute urine specimens, as indicated by a low specific gravity, may not contain compliance representative levels of hCG. If is still suspected, a first morning urine specimen should be collected 48 hours later and tested. Performed By: #### L 501.2450, L503.0105, L500.4050, L506.1000, L501.9520, L100.0100 #### [facility] [address] [place], [address] RBC Auto (Bld) [#/Vol]Ordere d By: Charlie Lombardo on 10-13-2024 RBC (Bld) [#/Vol] 4.84 10*6/uL 4.2-5.4 [facility] Serum creatinine measurement (mass/volume)Ordered By: Charlie Lombardo on 10-13-2024 Creatinine [Mass/Vol] 0.89 mg/dL 0.70-1.20 [facility] Serum glucose measurement (m ass/volume)Ordered By: Charlie Lombardo on 10-13-2024 Glucose [Mass/Vol] 92 mg/dL 70-99 [facility] Serum or plasma calcium willie urement (mass/volume)Ordered By: Charlie oLmbardo on 03-13-2025 Calcium [Mass/Vol] 9.8 mg/dL 7.6-11.0 [facility] [facility] Serum or plasma urea nitroge n measurement (mass/volume)Ordered By: Charlie Lombardo on 10-13-2024 Urea nitrogen [Mass/Vol] 13 mg/dL 4-19 [facility] Sodium levelOrdered By: Charlie Lombardo on 10-13-2024 Sodium [Moles/Vol] 136 mmol/L 133-145 [facility] Troponin T.cardiac High sens itivity method [Mass/Vol]Ordered By: Charlie Lombardo on 10-13-2024 Troponin T High Sensitivity 2 Hour 6 ng/L <14 [facility] Troponin T.cardiac [Mass/vol ume] in Serum or Plasma by High sensitivity methodOrdered By: Charlie Lombardo on 10-13-2024 Troponin T.cardiac High sensitivity method [Mass/Vol] 6 ng/L <14 [facility] Urine testOrdered By: Charlie Lombardo on 10-13-2024 HCG ( test) Ql (U) Negative [facility] Comment on above: Very dilute urine sp ecimens, as indicated by a low specificgravity, may not contain compliance representative levels of hCG. If is still suspected, a first morning urinespecimen should be collected 48 hours later and tested. White blood cell (WBC) count Ordered By: Charlie Lombardo on 10-13-2024 WBC (Bld) [#/Vol] 7.6 10*3/uL 4.4-11.0 [facility] CNPNon 10-07-2024 [facility] WANDA [facility] ([id number]) 1980 F Date Time Provider Department 10/07/24 HILTON DOTY [facility] During your visit today, we recorded the following information about you: Ngoc Ervin, ELSIE 10/07/2024 10:40 AM Signed Patient asking if Dr. Doty could review her [facility] lab results that were completed 09/22/24 (in scanned docs), as well as her [facility] Note from 09/08/24 (in scanned docs as well). Pt states there is no solano to review these records, but wanted Dr. Doty's advise on her lab results, as she sees there are some numbers that are off and she was not feeling well during the time she had her labs drawn. Pt states she will be following up with [facility] in November. ELSIE Clemens Jordan L, DO 10/19/2024 7:58 PM Signed Please inform patient that labs were stable other than CRP was elevated mildly. Recommend addressing this with [place] Hammerer DO Riky Brady M Robin, RN 10/20/2024 9:22 AM Signed Phoned pt and given provider's message below. 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 Reports pcp agreed to fill her plaquenil as long as she kept her appts with the eye doctor, and she has been keeping her appts with the eye doctor. Reports plaquenil tests have been fine. Pt reports she is scheduled to have an ECHO on 10-26-24 at 1 pm, and has an appt with pcp that same day at 6:20 pm. States she has been having trouble with SOB (worse on exertion) and chest heaviness, for 3 mths. Reports she doesn't think it's anxiety. Reports all heart tests so far have been negative. Pt asking pcp to refill her lorazepam. Pended. Lisa Doll APRN.CNP 10/20/2024 10:15 AM Signed All of these concerns will be addressed at appointment next week. Rx for ativan sent. Thank you, Lisa Doll APRN.CNP The following approved medication requests have been transmitted electronically. Requested Prescriptions Signed Prescriptions Disp Refills LORazepam (ATIVAN) 0.5 mg 30 tablet 0 Sig: Take 1 tablet by mouth once daily as needed (anxiety attack) for up to 30 days. Authorizing Provider: LISA DOLL APRN.CNP PDMP website checked and validated. All prescriptions have been APPROPRIATELY filled. No suspicious activity was identified. 10/20/2024 by Lisa Doll APRN.FEI Huma WinstonOLU 10/20/2024 10:26 AM Signed Pt states understanding. Now asking what is a good amount of of water for her to be drinking? Statesw at last appointment was told to watch fluid intake but with her meds they make her super thirsty. So asking what is an ok amount to drink? Lisa Doll APRN.HOME CARE ADMINISTRATOR 10/20/2024 10:55 AM Signed No need for fluid restriction after getting BNP results as normal and normal kidney function. I would suggest around 60oz of water per day. Thank you, Lisa Doll APRN.FEI Allergies As of Date: 10/07/2024 Noted Allergy Reaction PENICILLINS 08/30/2013 16 - Unknown Date Reviewed: 08/01/2024 Reviewed by: July Beaver LPN - Fully Assessed Reason for Visit: Results [95] Visit Diagnosis:LIVIA (generalized anxiety disorder) [F41.1] Order(s):LORazepam (ATIVAN) 0.5 mgTake 1 tablet by mouth once daily as needed (anxiety attack) for up to 30 days.Disp: 30 tabletRfl: 0 Prescriptions as of 10/20/2024 - LORazepam (ATIVAN) 0.5 mg Take 1 tablet by mouth once daily as needed (anxiety attack) for up to 30 days. - chlorthalidone (HYGROTON) 25 mg tablet Take 1 tablet by mouth once daily. As needed for edema - buPROPion (WELLBUTRIN) 75 mg tablet Take 2 tablets in the AM and 2 tablet in the afternoon - phentermine-topiramat e ER (QSYMIA) 11.25-69 mg 24 Hr Capsule Take 1 capsule by mouth once daily for 90 days. BMI 31.32 - hydrOXYchloroQUINE (PLAQUENIL) 200 mg tablet Take 1 tablet by mouth once daily. - potassium chloride (K-TAB) 10 mEq tablet Take 1 tablet by mouth two times a day with meals. - traZODone (DESYREL) 50 mg tablet Take 1-2 tablets by mouth daily at bedtime. - metroNIDAZOLE 0.75 % cream Apply to affected area two times a day. - hydrocortisone 2.5 % cream Apply 1 application to affected area two times a day as needed (hemorrhoids). Location: hemorrhoids - naproxen (NAPROSYN) 500 mg tablet Take 1 tablet by mouth two times a day as needed (for pain/inflammation). Take with food. - Cholecalciferol, Vitamin D3, 2,000 unit cap Take 2 tablets by mouth once daily. Problem List As Of Date 10/07/2024 Noted Resolved Varicose veins of both legs with edema [I83.893]09/15/2014 Raynaud phenomenon [I73.00] 09/15/2014 Stiffness of hand joint [M25.649] 09/15/2014 Inflammatory polyarthropathy (HCC) [M06.4] 04/14/2015 Obesity, Class I, BMI 30-34.9 [E66.811] 01/16/2016 Symptomatic varicose veins [I83.899] 06/27/2016 Obesity, Class III, BMI 40-49.9 (morbid obesity*10/14/19 (more content not included)... Normal [facility] Breast imaging reportOrdered By: Jimmy Cam on 09-26-2024 Study report [facility] Imaging Services [address] [place] [address] SCRN MAMM (CAD)W/KYMBERLY BILAT MR#: [id number] Acct: [id number] Name: WANDA CAAL Rep #: [id number] : 1980 F 44 From: Beni Cam MD PCP: Dr. Hilton Doty, Status: RE G CLI Study:SCRN MAMM (CAD)W/KYMBERLY BILAT Date of Exa m: 09/26/24 Exam# [id number] Ordering Dr: Nilda Loya PUBLISHING EDITOR PUBLISHING EDITOR-C PROCEDURE: SCRN MAMM (CAD)W/KYMBERLY BILAT REASON FOR EXAM: F, Age 44 y/o, routine follow-up. Aunt with breast cancer. TECHNIQUE: Bilateral screening digital breast tomosynthesis with 2D and 3D images. Computeraided detection. COMPARISON: Prior exam(s) dating back to June 09, 2023.. FINDINGS: The breasts are heterogeneously dense which may obscure small masses. Stable benign-appearing bilateral axillary lymph nodes. No suspicious masses, areas of developing architectural distortion, or suspicious calcifications. BI/SCRN MAMM (CAD)W/KYMBERLY BILAT IMPRESSION: BI-RADS 2: BENIGN. RECOMMEND ANNUAL MAMMOGRAPHIC SCREENING. Follow-up code: Routine Follow-up The patient will be notified of the results by letter. Reading Location: [facility] CC: PUBLISHING EDITOR-C Nilda Loya; Dr. Hilton Doty DO ~ Justice Court Judge: Signed [facility] SCRN MAMM (CAD)W/KYMBERLY BILATo n 09-26-2024 SCRN MAMM (CAD)W/KYMBERLY BILAT [facility] Imaging Services [address] [place] [id number] SCRN MAMM (CAD)W/KYMBERLY BILAT MR#: [id number] Acct: [id number] Name: WANDA CAAL Rep #: [id number] : 1980 F 44 From: Jimmy hood MD PCP: Dr. Hilton Dtoy DO Status: REG CLI Study: SCRN MAMM (CAD)W/KYMBERLY BILAT Date of Exam: 09/04 11/25 Exam# [id number] Ordering Dr: Nilda Loya NP PUBLISHING EDITOR -C PROCEDURE: SCRN MAMM (CAD)W/KYMBERLY BILAT REASON FOR EXAM: F, Age 44 y/o, routine follow-up. Aunt with breast cancer. TECHNIQUE: Bilateral screening digital breast tomosynthesis with 2D and 3D images. Computer aided detection. COMPARISON: Prior exam(s) dating back to June 09, 2023.. FINDINGS: The breasts are heterogeneously dense which may obscure small masses. Stable benign-appearing bilateral axillary lymph nodes. No suspicious masses, areas of developing architectural distortion, or suspicious calcifications. BI/SCRN MAMM (CAD)W/KYMBERLY BILAT IMPRESSION: BI-RADS 2: BENIGN. RECOMMEND ANNUAL MAMMOGRAPHIC SCREENING. Follow-up code: Routine Follow-up The patient will be notified of the results by letter. Reading Location: [facility] CC: BUSTER Loya; Dr. Hilton Doty DO Justice Court Judge: Signed Normal [facility] Absolute lymphocyte countOrd ered By: Hilton Doty on 09-22-2024 Lymphocytes Auto (Unsp spec) [#/Vol] 1.27 10*3/uL 0.83-4.51 [facility] Absolute neutrophil countOrd ered By: Hilton Doty on 09-22-2024 Neutrophils (Bld) [#/Vol] 3.9 10*3/uL 2.0-7.7 [facility] Albumin to globulin ratioOrd ered By: Hilton Doty on 09-22-2024 Albumin/Globulin [Mass ratio] 0.9 {ratio} 0.9-2.4 [facility] Automated lymphocyte count a s percentage of total leukocytesOrdered By: Hilton Doty on 09-22-2024 Lymphocytes/100 WBC Auto (Unsp spec) 21.3 % 19-41 [facility] Basophil percentageOrdered B y: Hilton Doty on 09-22-2024 Basophils/100 WBC (Bld) 0.5 % 0-1 [facility] Bilirubin, totalOrdered By: Hilton Doty on 09-22-2024 Bilirubin [Mass/Vol] 0.50 mg/dL 0.20-1.00 [facility] Comment on above: For patients on eltr ombopag therapy, use of Dimension [place] TBIL is not recommended. Blood urea nitrogen (BUN)/cr eatinine ratioOrdered By: Hilton Doty on 09-22-2024 Urea nitrogen/Creatinine [Mass ratio] 15.1 mg/mg 10-20 [facility] C-reactive protein measureme nt by high sensitivity methodOrdered By: Hilton Doty on 09-22-2024 C-Reactive Protein Extended Range 5.87 mg/L High 0.0-3.0 [facility] Comment on above: C-Reactive Protein ( CRP) provides useful information for thediagnosis, therapy and monitoring of inflammatory processesand associated diseases. For the evaluation of Relative Riskfor Cardiovascular Disease, a High Sensitivity CRP (HSCRP)should be ordered. C-reactive protein measurement by high sensitivity method 5.87 mg/L High 0.0-3.0 [facility] Comment on above: C-Reactive Protein ( CRP) provides useful information for thediagnosis, therapy and monitoring of inflammatory processesand associated diseases. For the evaluation of Relative Riskfor Cardiovascular Disease, a High Sensitivity CRP (HSCRP)should be ordered. CBC W/Diff, Automatedon 09-04 0-2024 Absolute Lymph 1.27 X10 3/uL Normal 0.83-4.51 [facility] Comment on above: Performed By: #### L 501.2450, L503.0105, L500.4050, L506.1000, L501.9520, L100.0100 #### [facility] [address] [place], [address] Absolute Neut 3.9 X10 3/uL Normal 2.0-7.7 [facility] Comment on above: Performed By: #### L 501.2450, L503.0105, L500.4050, L506.1000, L501.9520, L100.0100 #### [facility] [address] [place], [address] Basophils/100 WBC (Bld) 0.5 % Normal 0-1 [facility] Comment on above: Performed By: #### L 501.2450, L503.0105, L500.4050, L506.1000, L501.9520, L100.0100 #### [facility] [address] [place], [address] Eosinophils/100 WBC (Bld) 1.2 % Normal 0-5 [facility] Comment on above: Performed By: #### L 501.2450, L503.0105, L500.4050, L506.1000, L501.9520, L100.0100 #### [facility] [address] [place], [address] Erythrocyte distribution width (RBC) [Ratio] 13.0 % Normal 11.6-14.6 [facility] Comment on above: Performed By: #### L 501.2450, L503.0105, L500.4050, L506.1000, L501.9520, L100.0100 #### [facility] [address] [place], [address] Hematocrit (Bld) [Volume fraction] 42.1 % Normal 37-47 [facility] Comment on above: Performed By: #### L 501.2450, L503.0105, L500.4050, L506.1000, L501.9520, L100.0100 #### [facility] [address] [place], [address] Hemoglobin (Bld) [Mass/Vol] 14.2 g/dL Normal 12.0-15.0 [facility] Comment on above: Performed By: #### L 501.2450, L503.0105, L500.4050, L506.1000, L501.9520, L100.0100 #### [facility] [address] [place], [address] IG% 0.300 Normal 0.0-0.9 [facility] Comment on above: Result Comment: IG% - Immature Granulocytes (promyelocytes, myelocytes and metamyelocytes) > 1% indicates that a LEFT SHIFT is Present. Performed By: #### L 501.2450, L503.0105, L500.4050, L506.1000, L501.9520, L100.0100 #### [facility] [address] [place], [address] Lymphocytes/100 WBC (Bld) 21.3 % Normal 19-41 [facility] Comment on above: Performed By: #### L 501.2450, L503.0105, L500.4050, L506.1000, L501.9520, L100.0100 #### [facility] [address] [place], [address] MCH (RBC) [Entitic mass] 30.1 pg Normal 27.0-32.0 [facility] Comment on above: Performed By: #### L 501.2450, L503.0105, L500.4050, L506.1000, L501.9520, L100.0100 #### [facility] [address] [place], [address] MCHC (RBC) [Mass/Vol] 33.7 g/dL Normal 32-36 [facility] Comment on above: Performed By: #### L 501.2450, L503.0105, L500.4050, L506.1000, L501.9520, L100.0100 #### [facility] [address] [place], [address] MCV (RBC) [Entitic vol] 89.2 fL Normal 81-99 [facility] Comment on above: Performed By: #### L 501.2450, L503.0105, L500.4050, L506.1000, L501.9520, L100.0100 #### [facility] [address] [place], [address] Monocytes/100 WBC (Bld) 12.2 % High 0-10 [facility] Comment on above: Performed By: #### L 501.2450, L503.0105, L500.4050, L506.1000, L501.9520, L100.0100 #### [facility] [address] [place], [address] Neutrophils/100 WBC (Bld) 64.5 % Normal 47-70 [facility] Comment on above: Performed By: #### L 501.2450, L503.0105, L500.4050, L506.1000, L501.9520, L100.0100 #### [facility] [address] [place], [address] Nucleated RBC (Bld) [#/Vol] 0 10*3/uL Normal 0-5 [facility] Comment on above: Performed By: #### L 501.2450, L503.0105, L500.4050, L506.1000, L501.9520, L100.0100 #### [facility] [address] [place], [address] Platelet mean volume (Bld) [Entitic vol] 9.5 fL Normal 6.2-12.0 [facility] Comment on above: Performed By: #### L 501.2450, L503.0105, L500.4050, L506.1000, L501.9520, L100.0100 #### [facility] [address] [place], [address] Platelets (Bld) [#/Vol] 207 10*3/uL Normal 150-450 [facility] Comment on above: Performed By: #### L 501.2450, L503.0105, L500.4050, L506.1000, L501.9520, L100.0100 #### [facility] [address] [place], [address] RBC (Bld) [#/Vol] 4.72 10*6/uL Normal 4.2-5.4 [facility] Comment on above: Performed By: #### L 501.2450, L503.0105, L500.4050, L506.1000, L501.9520, L100.0100 #### [facility] [address] [place], [address] RDW SD 42.7 fl Normal 35.1-43.9 [facility] Comment on above: Performed By: #### L 501.2450, L503.0105, L500.4050, L506.1000, L501.9520, L100.0100 #### [facility] [address] [place], [address] WBC (Bld) [#/Vol] 6.0 10*3/uL Normal 4.4-11.0 [facility] Comment on above: Performed By: #### L 501.2450, L503.0105, L500.4050, L506.1000, L501.9520, L100.0100 #### [facility] [address] [place], [address] [facility] 09-22-2024 [facility] WANDA CAAL ([id number]) 1980 F Date Time Provider Department 09/22/24 HILTON DOTY [facility] During your visit today, we recorded the following information about you: Frank Obando RN 09/22/2024 12:36 PM Signed Patient calls to request lab orders be faxed to [facility]. Faxed to [phone] per request. Frank Obando RN Allergies As of Date: 09/22/2024 Noted Allergy Reaction PENICILLINS 08/30/2013 16 - Unknown Date Reviewed: 08/01/2024 Reviewed by: July Beaver LPN - Fully Assessed Reason for Visit: Orders [461] Prescriptions as of 09/22/2024 - buPROPion (WELLBUTRIN) 75 mg tablet Take 2 tablets in the AM and 2 tablet in the afternoon - phentermine-topiramat e ER (QSYMIA) 11.25-69 mg 24 Hr Capsule Take 1 capsule by mouth once daily for 90 days. BMI 31.32 - hydrOXYchloroQUINE (PLAQUENIL) 200 mg tablet Take 1 tablet by mouth once daily. - potassium chloride (K-TAB) 10 mEq tablet Take 1 tablet by mouth two times a day with meals. - chlorthalidone (HYGROTON) 25 mg tablet Take 1 tablet by mouth once daily. As needed for edema - traZODone (DESYREL) 50 mg tablet Take 1-2 tablets by mouth daily at bedtime. - metroNIDAZOLE 0.75 % cream Apply to affected area two times a day. - hydrocortisone 2.5 % cream Apply 1 application to affected area two times a day as needed (hemorrhoids). Location: hemorrhoids - naproxen (NAPROSYN) 500 mg tablet Take 1 tablet by mouth two times a day as needed (for pain/inflammation). Take with food. - furosemide (LASIX) 20 mg tablet Take 0.5-1 tablets by mouth daily with breakfast. - Cholecalciferol, Vitamin D3, 2,000 unit cap Take 2 tablets by mouth once daily. Problem List As Of Date 09/22/2024 Noted Resolved Varicose veins of both legs with edema [I83.893]09/15/2014 Raynaud phenomenon [I73.00] 09/15/2014 Stiffness of hand joint [M25.649] 09/15/2014 Inflammatory polyarthropathy (HCC) [M06.4] 04/14/2015 Obesity, Class I, BMI 30-34.9 [E66.811] 01/16/2016 Symptomatic varicose veins [I83.899] 06/27/2016 Obesity, [...] flashes [R23.2] 10/28/2022 Situational depression [F43.21] 11/27/2022 Varicose veins of both lower extremities with c*06/03/2023 Nausea [R11.0] 04/25/2024 SOB (shortness of breath) [R06.02] 04/25/2024 Hypokalemia [E87.6] 04/25/2024 Inflammatory arthritis [M19.90] 04/25/2024 Perimenopausal symptoms [N95.1] 08/02/2024 Encounter Status:Closed by FRANK OBANDO on 09/22/24 Normal [facility] CRPon 09-22-2024 C-REACTIVE PROT 5.87 mg/L High 0.0-3.0 [facility] Comment on above: Result Comment: C-Re active Protein (CRP) provides useful information for the diagnosis, therapy and monitoring of inflammatory processes and associated diseases. For the evaluation of Relative Risk for Cardiovascular Disease, a High Sensitivity CRP (HSCRP) should be ordered. Performed By: #### L 501.2450, L503.0105, L500.4050, L506.1000, L501.9520, L100.0100 #### [facility] [address] [place], [place], [id number] Carbon dioxide measurementOr dered By: Hilton Doty on 09-22-2024 CO2 [Moles/Vol] 29.0 mmol/L 21.0-32.0 [facility] Chloride measurementOrdered By: Hilton Doty on 09-22-2024 Chloride [Moles/Vol] 101 mmol/L 98-107 [facility] Comprehensive Metabolic Prof ilon 09-22-2024 Albumin [Mass/Vol] 3.8 g/dL Normal 3.2-5.0 [facility] Comment on above: Performed By: #### L 501.2450, L503.0105, L500.4050, L506.1000, L501.9520, L100.0100 #### [facility] [address] [place], [address] Albumin/Globulin [Mass ratio] 0.9 {ratio} Normal 0.9-2.4 [facility] Comment on above: Performed By: #### L 501.2450, L503.0105, L500.4050, L506.1000, L501.9520, L100.0100 #### [facility] [address] [place], [address] ALK P 83 U/L Normal 45-117 [facility] Comment on above: Performed By: #### L 501.2450, L503.0105, L500.4050, L506.1000, L501.9520, L100.0100 #### [facility] [address] [place], [address] ALT [Catalytic activity/Vol] 22 U/L Normal 13-56 [facility] Comment on above: Performed By: #### L 501.2450, L503.0105, L500.4050, L506.1000, L501.9520, L100.0100 #### [facility] [address] [place], [address] AST [Catalytic activity/Vol] 15 U/L Normal 15-37 [facility] Comment on above: Performed By: #### L 501.2450, L503.0105, L500.4050, L506.1000, L501.9520, L100.0100 #### [facility] [address] [place], [address] Bilirubin [Mass/Vol] 0.50 mg/dL Normal 0.20-1.00 [facility] Comment on above: Result Comment: For patients on eltrombopag therapy, use of Dimension [place] TBIL is not recommended. Performed By: #### L 501.2450, L503.0105, L500.4050, L506.1000, L501.9520, L100.0100 #### [facility] [address] [place], [address] BUN/CRE 15.1 RATIO Normal 10-20 [facility] Comment on above: Performed By: #### L 501.2450, L503.0105, L500.4050, L506.1000, L501.9520, L100.0100 #### [facility] [address] [place], [address] CA,Total 9.4 mg/dL Normal 8.5-10.1 [facility] Comment on above: Performed By: #### L 501.2450, L503.0105, L500.4050, L506.1000, L501.9520, L100.0100 #### [facility] [address] [place], [address] Chloride [Moles/Vol] 101 mmol/L Normal 98-107 [facility] Comment on above: Performed By: #### L 501.2450, L503.0105, L500.4050, L506.1000, L501.9520, L100.0100 #### [facility] [address] [place], [address] CO2 [Moles/Vol] 29.0 mmol/L Normal 21.0-32.0 [facility] Comment on above: Performed By: #### L 501.2450, L503.0105, L500.4050, L506.1000, L501.9520, L100.0100 #### [facility] [address] [place], [address] Creatinine [Mass/Vol] 0.80 mg/dL Normal 0.55-1.02 [facility] Comment on above: Result Comment: The validity of the calculated GFR GFRAA in patients over 70 years has not been determined. Clinical correlation is essential. Performed By: #### L 501.2450, L503.0105, L500.4050, L506.1000, L501.9520, L100.0100 #### [facility] [address] [place], [address] EST GFR - AA 101 mL/min Normal >60 [facility] Comment on above: Result Comment: Afri can [place] GFR Calc Performed By: #### L 501.2450, L503.0105, L500.4050, L506.1000, L501.9520, L100.0100 #### [facility] [address] [place], [address] GAP 6 Normal 5-15 [facility] Comment on above: Performed By: #### L 501.2450, L503.0105, L500.4050, L506.1000, L501.9520, L100.0100 #### [facility] [address] [place], [address] GFR/1.73 sq M.predicted among non-blacks MDRD (S/P/Bld) [Vol rate/Area] 83 mL/min/{1.73_m2} Normal >60 [facility] Comment on above: Result Comment: Non- GFR Calc Performed By: #### L 501.2450, L503.0105, L500.4050, L506.1000, L501.9520, L100.0100 #### [facility] [address] [place], [address] Globulin (S) [Mass/Vol] 4.1 g/dL Normal 2.2-4.2 [facility] Comment on above: Performed By: #### L 501.2450, L503.0105, L500.4050, L506.1000, L501.9520, L100.0100 #### [facility] [address] [place], [address] Glucose [Mass/Vol] 101 mg/dL Normal 74-106 [facility] Comment on above: Result Comment: Fast ing Glucose result from 100 to 125 mg/dL suggests IMPAIRED HOMEOSTASIS per A.D.A. criteria. Performed By: #### L 501.2450, L503.0105, L500.4050, L506.1000, L501.9520, L100.0100 #### [facility] [address] [place], [address] Potassium [Moles/Vol] 3.8 mmol/L Normal 3.5-5.1 [facility] Comment on above: Performed By: #### L 501.2450, L503.0105, L500.4050, L506.1000, L501.9520, L100.0100 #### [facility] [address] [place], [address] Sodium [Moles/Vol] 136 mmol/L Normal 136-145 [facility] Comment on above: Performed By: #### L 501.2450, L503.0105, L500.4050, L506.1000, L501.9520, L100.0100 #### [facility] [address] [place], [address] T PROT 7.9 g/dL Normal 6.4-8.2 [facility] Comment on above: Performed By: #### L 501.2450, L503.0105, L500.4050, L506.1000, L501.9520, L100.0100 #### [facility] [address] [place], [address] Urea nitrogen [Mass/Vol] 12 mg/dL Normal 7-18 [facility] Comment on above: Performed By: #### L 501.2450, L503.0105, L500.4050, L506.1000, L501.9520, L100.0100 #### [facility] [address] [place], [address] Eosinophil percentageOrdered By: Hilton Doty on 09-22-2024 Eosinophils/100 WBC (Bld) 1.2 % 0-5 [facility] Erythrocyte distribution wid th ratioOrdered By: Hilton Doty on 09-22-2024 Erythrocyte distribution width (RBC) [Ratio] 13.0 % 11.6-14.6 [facility] Erythrocyte distribution wid th standard deviationOrdered By: Hilton Doty on 09-22-2024 Erythrocyte distribution width (RBC) [Entitic vol] 42.7 fL 35.1-43.9 [facility] Erythrocyte distribution width (RBC) [Ratio] 42.7 fl 35.1-43.9 [facility] Estimated glomerular filtrat ion rate (GFR) AmericanOrdered By: Hilton Doty on 09-22-2024 Estimated GFR (MDRD) Amer 101 mL/min >60 [facility] Comment on above: GFR Calc Glomerular filtration rate ( GFR) estimationOrdered By: Hilton Doty on 09-22-2024 Estimated GFR (MDRD) Non-Af Amer 83 mL/min >60 [facility] Comment on above: Non- GFR Calc GFR/1.73 sq M.predicted among non-blacks MDRD (S/P/Bld) [Vol rate/Area] 83 mL/min/{1.73_m2} >60 [facility] Comment on above: Non- GFR Calc Glucose measurementOrdered B y: Hilton Doty on 09-22-2024 Glucose [Mass/Vol] 101 mg/dL 74-106 [facility] Comment on above: Fasting Glucose resu lt from 100 to 125 mg/dL suggests IMPAIRED HOMEOSTASIS per A.D.A. criteria. Hematocrit Auto (Bld) [Volum e fraction]Ordered By: Hilton Doty on 09-22-2024 Hematocrit (Bld) [Volume fraction] 42.1 % 37-47 [facility] Hemoglobin measurementOrdere d By: Hilton Doty on 09-22-2024 Hemoglobin (Bld) [Mass/Vol] 14.2 g/dL 12.0-15.0 [facility] Immature granulocytes/100 WB C Auto (Bld)Ordered By: Hilton Doty on 09-22-2024 Immature granulocytes/100 WBC (Bld) 0.300 % 0.0-0.9 [facility] Comment on above: IG% - Immature Granu locytes (promyelocytes, myelocytes and metamyelocytes) > 1% indicates that a LEFT SHIFT is Present. Laboratory - Chemistry and C hemistry - challengeOrdered By: Hilton Doty on 09-22-2024 AST [Catalytic activity/Vol] 15 U/L 15-37 [facility] Lymphocytes Auto (Unsp spec) [#/Vol]Ordered By: Hilton Doty on 09-22-2024 Lymphocytes (Bld) [#/Vol] 1.27 10*3/uL 0.83-4.51 [facility] Lymphocytes/100 WBC Auto (Un sp spec)Ordered By: Hilton Doty on 09-22-2024 Lymphocytes/100 WBC (Bld) 21.3 % 19-41 [facility] MCV (mean corpuscular volume ) determinationOrdered By: Hilton Doty on 09-22-2024 MCV (RBC) [Entitic vol] 89.2 fL 81-99 [facility] Mean corpuscular hemoglobin (MCH) determinationOrdered By: Hilton Doty on 09-22-2024 MCH (RBC) [Entitic mass] 30.1 pg 27.0-32.0 [facility] Mean corpuscular hemoglobin concentration (MCHC) determinationOrdered By: Hilton Doty on 09-22-2024 MCHC (RBC) [Mass/Vol] 33.7 g/dL 32-36 [facility] Mean platelet volume determi nationOrdered By: Hilton Doty on 09-22-2024 Platelet mean volume (Bld) [Entitic vol] 9.5 fL 6.2-12.0 [facility] Monocyte percentageOrdered B y: Hilton Doty on 09-22-2024 Monocytes/100 WBC (Bld) 12.2 % High 0-10 [facility] Neutrophil percentageOrdered By: Hilton Doty on 09-22-2024 Neutrophils/100 WBC (Bld) 64.5 % 47-70 [facility] Nucleated red blood cell per centageOrdered By: Hilton Doty on 09-22-2024 Nucleated RBC/100 WBC (Bld) [Ratio] 0 % 0-5 [facility] Platelet countOrdered By: Melissa Doty on 09-22-2024 Platelets (Bld) [#/Vol] 207 10*3/uL 150-450 [facility] Potassium measurementOrdered By: Hilton Doty on 09-22-2024 Potassium [Moles/Vol] 3.8 mmol/L 3.5-5.1 [facility] RBC Auto (Bld) [#/Vol]Ordere d By: Hilton Doty on 09-22-2024 RBC (Bld) [#/Vol] 4.72 10*6/uL 4.2-5.4 [facility] Serum anion gap measurementO rdered By: Hilton Doty on 09-22-2024 Anion gap [Moles/Vol] 6 mmol/L 5-15 [facility] Serum globulin measurementOr dered By: Hilton Doty on 09-22-2024 Globulin (S) [Mass/Vol] 4.1 g/dL 2.2-4.2 [facility] Serum or plasma alanine nieto otransferase (ALT) measurementOrdered By: Hilton Doty on 09-22-2024 ALT [Catalytic activity/Vol] 22 U/L 13-56 [facility] Serum or plasma albumin wilile urement (mass/volume)Ordered By: Hilton Doty on 09-22-2024 Albumin [Mass/Vol] 3.8 g/dL 3.2-5.0 [facility] Serum or plasma alkaline rima sphatase measurementOrdered By: Hilton Doty on 09-22-2024 ALP [Catalytic activity/Vol] 83 U/L 45-117 [facility] Serum or plasma calcium willie urement (mass/volume)Ordered By: Hilton Doty on 09-22-2024 Calcium [Mass/Vol] 9.4 mg/dL 8.5-10.1 [facility] Serum or plasma creatinine m easurement (mass/volume)Ordered By: Hilton Doty on 09-22-2024 Creatinine [Mass/Vol] 0.80 mg/dL 0.55-1.02 [facility] Comment on above: The validity of the calculated GFR & GFRAA in patients over 70 years has not been determined. Clinical correlation is essential. Serum or plasma thyroid stim ulating hormone (TSH) measurement (units/volume)Ordered By: Hilton Doty on 09-22-2024 TSH Qn 1.810 uIU/mL 0.358-3.740 [facility] Serum or plasma urea nitroge n measurement (mass/volume)Ordered By: Hilton Doty on 09-22-2024 Urea nitrogen [Mass/Vol] 12 mg/dL 7-18 [facility] Sodium levelOrdered By: Jason Doty on 09-22-2024 Sodium [Moles/Vol] 136 mmol/L 136-145 [facility] TSH QnOrdered By: Hilton de souza on 09-22-2024 Thyroid Stimulating Hormone (TSH) 1.810 uIU/mL 0.358-3.740 [facility] Thyroid Stim Hormone (TSH)on 09-22-2024 TSH 1.810 uIU/mL Normal 0.358-3.740 [facility] Comment on above: Performed By: #### L 501.2450, L503.0105, L500.4050, L506.1000, L501.9520, L100.0100 #### [facility] [address] [place], [place], [id number] Total proteinOrdered By: Clay Doty on 09-22-2024 Protein [Mass/Vol] 7.9 g/dL 6.4-8.2 [facility] White blood cell (WBC) count Ordered By: Hilton Doty on 09-22-2024 WBC (Bld) [#/Vol] 6.0 10*3/uL 4.4-11.0 [facility] MR/BMS.QUENTINSon 09-08-2024 MR/BMS.BVS [facility] Surgery [address] [place], [place] [address] OFFICE VISIT Date of Service: 09/08/24 MR#: [id number] Acct: [id number] Name: WANDA CAAL Rep #: [id number] : 1980 Provider: JAYE Montero Age/Sex: 44/F Location: [facility] Status: Signed Intake Vital Signs 05/26/24 12:40 09/08/24 11:19 Height 5 ft 6 in Weight: 189 lb 191 lb BMI 30.4 BP 112/64 136/91 H Blood Pressure Location Lt brachial Lt brachial Position Sitting Sitting Respiration 16 16 Pulse 84 71 Pulse Source Monitor Monitor Temp 98.2 F 98 F Temp Source Oral Temporal Pulse Oximetry (%) 98 99 Oxygen Delivery Method room air room air Intake Visit Reasons: Varicose veins Chief Complaint: establish care Is patient in pain?: No Allergies Penicillins (PCN) Allergy (Severe, Verified 09/08/24 11:22) Anaphylaxis Medications ???Medication ???Instructions ???Recorded ???Confirmed ???Type naproxen 500 mg tablet 500 mg PO BID PRN PRN Pain Score 0 11/25/19 09/08/24 Rx 4-05/12 #20 tabs chlorthalidone 25 mg tablet 25 mg PO DAILY 03/12/20 09/08/24 H istory lorazepam 0.5 mg tablet 0.5 mg PO DAILY PRN PRN Anxiety 09/08/24 History bupropion HCl 75 mg tablet 75 mg PO DIRECTED 09/24/2301/25 History cholecalciferol (vitamin D3) 125 125 mcg PO DAILY 09/24/23 09/08/24 History mcg (5,000 unit) capsule phentermine 11.25 mg-topiramate ER 1 cap PO DAILY 09/24/23 09/08/24 History 69 mg capsule,[id number] hr mphas (Qsymia) hydroxychloroquine 200 mg tablet 300 mg PO DAILY 09/25/23 09/08/24 History (Plaquenil) trazodone 50 mg tablet 50 mg PO QHS 09/25/23 09/08/24 His tory naproxen 500 mg tablet (Naprosyn) 500 mg PO BID PRN pain #20 tabs 0 02/05/24 09/08/24 Rx ondansetron 4 mg disintegrating 4 mg PO Q8H PRN PRN Nausea #10 tab s 02/05/24 09/08/24 Rx tablet potassium chloride 20 mEq 20 meq PO BID #6 tabs 04/04/2401/25 Rx tablet,extended release dexamethasone 6 mg tablet 6 mg PO DAILY #5 tabs 05/26/2401/25 Rx Is last menstrual period known: Yes Post menopausal: No Patient : No Have you fallen in the past year?: Yes PFSH Medical History Wears dentures Wears glasses Anxiety Rheumatoid arthritis Arthritis Kidney stones Former smoker History of edema History of ureteral stone Surgical History Status post hysteroscopic ablation of endometrium ( 09/29/23) Hx of varicose vein stripping Hx of cystoscopy Hx of dilation and curettage Hx of tooth extraction History of laparoscopic cholecystectomy S/P tubal ligation Social History current occupational status: employed 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 Doty. She has had bilateral lower extremity varicose veins for over 10 years. In 2016, she did undergo bilateral GSV and left anterior branch EVLT by Dr. Anaya. She reports after this procedure she did have significant relief for a while. Over the last couple years she has progressively worsening symptoms and appearnce of her veins bilaterally. She notes the RLE has worse appearance but her symptoms are generally worse in the LLE. Symptoms include heaviness, fatigue, and aching her legs which are worse by the end of the day and tenderness along the varicosities and particularly at her medial ankles. She does not have any history of DVT or SVT. She does not have any wounds. She has some compression stockings but admits they are old and don't seem to fit well anymore so she has not been wearing them consistently lately. She does elevate her legs when she can. She stays generally active. Her medical history is otherwise significant for lupus which she states is in remission. She does have some general pelvic pain periodically but notes she has fibroids; she denies any hematuria/flank pain/pelvic varicosities. ROS General General: No weight change, appetite, fatigue, colon cancer, breast cancer or weakness HEENT HEENT: No difficulty swallowing, eye injury, eye surgery, swollen glands or hoarseness Endo Endocrine: No thyroid disease, diabetes mellitus, thyroid cancer, Hair loss, heat intolerance or cold intolerance Skin Skin: No rash or changing moles Musc Musculoskeletal: Yes arthritis; No back problems, rheumatoid arthritis, gou (more content not included)... Normal [facility] Davin 08-08-2024 [facility] WANDA CAAL ([id number]) 1980 F Date Time Provider Department 08/08/24 HILTON DOTY During your visit today, we recorded the following information about you: Gina Sparks LPN 08/08/2024 11:06 AM Signed Patient calling asking to have Vascular referral faxed to Dr Derek Barone [facility] at [phone]. Printed office visit note, consult, face sheet, insurance card copy,and faxed as requested. So patient can get appt set up. Allergies As of Date: 08/08/2024 Noted Allergy Reaction PENICILLINS 08/30/2013 16 - Unknown Date Reviewed: 08/01/2024 Reviewed by: July Beaver LPN - Fully Assessed Reason for Visit: fax [facility] referral to [facility] [Other] Prescriptions as of 08/08/2024 - buPROPion (WELLBUTRIN) 75 mg tablet Take 2 tablets in the AM and 2 tablet in the afternoon - phentermine-topiramat e ER (QSYMIA) 11.25-69 mg 24 Hr Capsule Take 1 capsule by mouth once daily for 90 days. BMI 31.32 - hydrOXYchloroQUINE (PLAQUENIL) 200 mg tablet Take 1 tablet by mouth once daily. - potassium chloride (K-TAB) 10 mEq tablet Take 1 tablet by mouth two times a day with meals. - chlorthalidone (HYGROTON) 25 mg tablet Take 1 tablet by mouth once daily. As needed for edema - traZODone (DESYREL) 50 mg tablet Take 1-2 tablets by mouth daily at bedtime. - metroNIDAZOLE 0.75 % cream Apply to affected area two times a day. - hydrocortisone 2.5 % cream Apply 1 application to affected area two times a day as needed (hemorrhoids). Location: hemorrhoids - naproxen (NAPROSYN) 500 mg tablet Take 1 tablet by mouth two times a day as needed (for pain/inflammation). Take with food. - furosemide (LASIX) 20 mg tablet Take 0.5-1 tablets by mouth daily with breakfast. - Cholecalciferol, Vitamin D3, 2,000 unit cap Take 2 tablets by mouth once daily. Problem List As Of Date 08/08/2024 Noted Resolved Varicose veins of both legs with edema [I83.893]09/15/2014 Raynaud phenomenon [I73.00] 09/15/2014 Stiffness of hand joint [M25.649] 09/15/2014 Inflammatory polyarthropathy (HCC) [M06.4] 04/14/2015 Obesity, Class I, BMI 30-34.9 [E66.811] 01/16/2016 Symptomatic varicose veins [I83.899] 06/27/2016 Obesity, [...] flashes [R23.2] 10/28/2022 Situational depression [F43.21] 11/27/2022 Varicose veins of both lower extremities with c*06/03/2023 Nausea [R11.0] 04/25/2024 SOB (shortness of breath) [R06.02] 04/25/2024 Hypokalemia [E87.6] 04/25/2024 Inflammatory arthritis [M19.90] 04/25/2024 Perimenopausal symptoms [N95.1] 08/02/2024 Encounter Status:Closed by GINA SPARKS on 08/08/24 Normal [facility] CNOVon 08-01-2024 CNOV Office Visit (FAMPWS ) WANDA CAAL ([id number]) 1980 F Date Time Provider Department 08/01/24 10:00 AM HILTON DOTY FAMPWS During your visit today, we recorded the following information about you: Temperature Pulse Respiration Blood pressure 97.6 degrees 64/minute 16/minute 130/70 Weight 89.4 kg Hilton Doty, 08/02/2024 7:20 AM Signed CC: Wanda Caal is a 44 year old female who presents to the office for follow up HPI: Weight, was at 189 lbs previously and today in the office dressed is 197 lbs. Admits drinks some soda daily. Needs to increase water intake. She is taking the Qsymia as prescribed with benefit but admits hat she hasn't been eating as healthy recently with the holiday season and not exercising as consistently. Needs to get back on routines. Left >right leg heaviness feeling and aching and intermittent edema, long standing hx of varicose veins. She is interested in pursuing taking care of these veins surgically by specialist at [facility] where she works Inflammatory polyarthropathy, symptoms have been stable. Use of plaquenil as prescribed. Getting yearly eye examination Edema, use of chlorthalidone medication and potassium supplement Mood, admits to recently being stressed but feels she is in a better job position than previous. She is working with Psychiatrist office Dr. Oliveros at [facility]. She feels that her perimenopausal symptoms are bothering her. She is going to further discuss with [employer] as well. PAST MEDICAL HISTORY Diagnosis Date MAXIM positive 09/2014 Inflammatory polyarthropathy (HCC) Kidney stone with stent Raynaud's disease PAST SURGICAL HISTORY Procedure Laterality Date DANDC (MISSED AB 1ST TRIMESTER) 2001 ESWL Right 05/08/2017 EXTRACTION, ERUPTED TOOTH OR EXPOSED ROOT (ELEVATION AND/OR FORCEPS REMOVAL) GALLBLADDER/EF TUBAL LIGATION HX 2005 Current Outpatient Medications Medication Sig buPROPion (WELLBUTRIN) 75 mg tablet Take 2 tablets in the AM and 2 tablet in the afternoon phentermine-topiramat e ER (QSYMIA) 11.25-69 mg 24 Hr Capsule Take 1 capsule by mouth once daily for 90 days. BMI 31.32 hydrOXYchloroQUINE (PLAQUENIL) 200 mg tablet Take 1 tablet by mouth once daily. potassium chloride (K-TAB) 10 mEq tablet Take 1 tablet by mouth two times a day with meals. chlorthalidone (HYGROTON) 25 mg tablet Take 1 tablet by mouth once daily. As needed for edema traZODone (DESYREL) 50 mg tablet Take 1-2 tablets by mouth daily at bedtime. metroNIDAZOLE 0.75 % cream Apply to affected area two times a day. hydrocortisone 2.5 % cream Apply 1 application to affected area two times a day as needed (hemorrhoids). Location: hemorrhoids naproxen (NAPROSYN) 500 mg tablet Take 1 tablet by mouth two times a day as needed (for pain/inflammation). Take with food. furosemide (LASIX) 20 mg tablet Take 0.5-1 tablets by mouth daily with breakfast. Cholecalciferol, Vitamin D3, 2,000 unit cap Take 2 tablets by mouth once daily. No current facility-administered medications for this visit. ALLERGIES Allergen Reactions Penicillins Unknown Social History Tobacco Use Smoking status: Never Smokeless tobacco: Never Vaping Use Vaping status: Never Used Substance Use Topics Alcohol use: Yes Comment: occ Drug use: No ROS: See HPI PE: BP 130/70 Pulse 64 Temp (Src) 97.6 (Left Tympanic) Resp 16 Wt 197 lb (89.4kg) LMP 12/29/2020 Gen: AANDOX3, NAD, non-toxic appearing HEENT: PERRLA, EOMs intact b/l, nares without drainage, pharynx without erythema, exudate, lesions, or drainage. Uvula midline. Neck: No LAD, no thyromegaly, no meningismus. CV: RRR, no murmur Lungs: CTA b/l, no wheezing Skin: No rashes, lesions, or wounds on exposed skin. Trace leg edema, normal pulses + varicose veins of legs Abd: overweight, NT,ND, normal BS, no obvious masses ASSESSMENT/PLAN: 1. Varicose veins of both lower extremities with complications - ICD9: 454.8, ICD10: I83.893 (primary diagnosis) Referral to specialist for opinion for removal surgically, she wants to see surgeon at [facility] where she works - CONSULT TO VASCULAR SURGERY 2. Hypokalemia - ICD9: 276.8, ICD10: E87.6 Recheck labs as ordered Continue potassium supplement - COMPREHENSIVE METABOLIC PANEL - COMPLETE BLOOD COUNT AND DIFFERENTIAL - THYROID STIMULATING HORMONE 3. LIVIA (generalized anxiety disorder) - ICD9: 300.02, ICD10: F41.1 Increase dose of wellbutrin D/w [employer] regarding perimenopause and how this is also affecting her mood and management of her mood. - BUPROPION HCL 75 MG TABLET 4. Situational depression - ICD9: 309.0, ICD10: F43.21 Increase dose of wellbutrin D/w [employer] regarding perimenopause and how this is also affecting her mood and management of her mood. - BUPROPION HCL 75 MG TABLET 5. Obesity, Class I, BMI 30-34.9 - ICD9: 278.00, ICD10: E (more content not included)... Normal [facility] Office Visit Reporton 2023 Office Visit Report [facility] [address] [place] [address] OFFICE VISIT Date of Service: 05/26/24 MR#: [id number] Acct: [id number] Patient: WANDA CAAL Rep #: [id number] : 1980 Provider: JAYE Reese Age/Sex: 44/F Location: [facility] Status: Signed Employer Purchased Covid Test Note: Patient here today for Covid Testing, requested by their Employer. Assessment and Plan Assessment and Plan Orders: Orders POC Cepheid Covid, FluAB, RSV 05/26/24 05/27/24 1320 Date Randy CEE Cosigner Signature: Date (if applicable) CC: Normal [facility] Office Visit Reporton 2023 Office Visit Report [facility] [address] [place] [address] OFFICE VISIT Date of Service: 05/26/24 MR#: [id number] Acct: [id number] Patient: WANDA CAAL Rep #: [id number] : 1980 Provider: JAYE Reese Age/Sex: 44/F Location: [facility] Status: Signed Employer Purchased Covid Test Note: Patient here today for Covid Testing, requested by their Employer. Assessment and Plan Assessment and Plan Orders: Orders POC Cepheid Covid, FluAB, RSV Today 05/26/24 1245 Date Randy CEE Cosigner Signature: Date (if applicable) CC: Normal [facility] Urgent Care Visit Reporton 1 Urgent Care Visit Report [facility] [address], [address] [place] [address] OFFICE VISIT Date of Service: 05/26/24 MR#: [id number] Acct: [id number] Name: WANDA CAAL Rep #: [id number] : 1980 Provider: JAYE Reese Age/Sex: 44/F Location: [facility] Status: Signed Intake Vital Signs 04/04/24 10:52 05/26/24 12:40 Height 5 ft 7 in 5 ft 6 in Weight: 189 lb BMI 30.4 BP 112/64 Blood Pressure Location Lt brachial Position Sitting Respiration 16 Pulse 84 Pulse Source Monitor Temp 98.2 F Temp Source Oral Pulse Oximetry (%) 98 Oxygen Delivery Method room air Intake Visit Reasons: CHILLS, SINUS PRESSURE Chief Complaint: fatigue, KING, chest congestion chills 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 Accompanied by: Self Is patient in pain?: No Allergies Penicillins (PCN) Allergy (Verified 05/26/24 12:41) Unknown Medications ???Medication ???Instructions ???Recorded ???Confirmed ???Type naproxen 500 mg tablet 500 mg PO BID PRN PRN Pain Score 11/25/19 05/26/24 Rx 4-05/12 #20 tabs chlorthalidone 25 mg tablet 25 mg PO DAILY 03/12/20 05/26/24 History lorazepam 0.5 mg tablet 0.5 mg PO DAILY PRN PRN Anxiety 03/12/20 05/26/24 History bupropion HCl 75 mg tablet 75 mg PO DIRECTED 09/24/23 05/26/24 History cholecalciferol (vitamin D3) 125 125 mcg PO DAILY 09/24/23 05/26/24 History mcg (5,000 unit) capsule phentermine 11.25 mg-topiramate ER 1 cap PO DAILY 09/24/23 05/26/24 History 69 mg capsule,ext.dvuafze20 hr mphas (Qsymia) hydroxychloroquine 200 mg tablet 300 mg PO DAILY 09/25/23 05/26/24 History (Plaquenil) trazodone 50 mg tablet 50 mg PO QHS 09/25/23 05/26/24 History naproxen 500 mg tablet (Naprosyn) 500 mg PO BID PRN pain #20 tabs 02/05/24 05/26/24 Rx ondansetron 4 mg disintegrating 4 mg PO Q8H PRN PRN Nausea #10 tabs 02/05/24 05/26/24 Rx tablet potassium chloride 20 mEq 20 meq PO BID #6 tabs 04/04/24 05/26/24 Rx tablet,extended release dexamethasone 6 mg tablet 6 mg PO DAILY #5 tabs 05/26/24 05/26/24 Rx PFSH Medical History Wears dentures Wears glasses Anxiety Rheumatoid arthritis Arthritis Kidney stones Former smoker History of edema History of ureteral stone Surgical History Status post hysteroscopic ablation of endometrium ( 09/29/23) Hx of varicose vein stripping Hx of cystoscopy Hx of dilation and curettage Hx of tooth extraction History of laparoscopic cholecystectomy S/P tubal ligation Social History current occupational status: employed 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 Patient denies fever however does have chills and sweats. No nausea, vomiting, diarrhea. No hemoptysis, shortness of breath or difficulty breathing. No loss of taste or smell. No other associated symptoms or alleviating/aggravati ng factors. ROS Const Constitutional: Positive for other (As noted in HPI) Exam Const General: cooperative and well developed HENMT Head: normal to inspection and atraumatic Ears: hearing grossly normal bilaterally Nose: nasal discharge clear Face and sinus: normal facial exam Mouth: oral mucosae normal Throat: abnormal tonsil bilaterally hypertrophy 1+ Resp Effort Inspection: normal respiratory effort and no audible wheezes Auscultation: Bilateral: Clear to Auscultation Cardio Rate: regular rate Rhythm: regular rhythm Neuro General: patient alert Psych Appearance: grossly normal Mental Status: mental status grossly normal Results POC CEPH COV,FluAB,RSV PCR CEPHEID COVID PCR DETECTED Last Edit by Angela Barahona MA on 05/26/24 13:17 CEPHEID FLU AB PCR NOT DETECTED FLU A B Last Edit by Angela Barahona MA on 05/26/24 13:17 CEPHEID RSV PCR NOT DETECTED Last Edit by Angela Barahona MA on 05/26/24 13:17 Coding Level of Care Code Off vis,est,level 3 Diagnoses COVID-19 U07.1 Assessment and Plan Assessment and Plan (1) COVID-19: Status: Acute Medications: New dexamethasone 6 mg PO DAILY 5 tabs 0RF Plan Decadron as prescribed today. Encouraged to get plenty of rest, drink lots of clear liquids, and use Tylenol or Ibuprofen (unless contraindicated) for fever and comfort. Patient also educated on other symptomatic management techniques. To be seen in 7-10 days if no improvement (more content not included)... Normal [facility] WAN[facility]AL ([id number]) 1980 F Date Time Provider Department 05/12/24 HILTON DOTY [facility] During your visit today, we recorded the following information about you: Lois Rod MA 05/12/2024 7:19 AM Signed Please see pt message-- Oz Doty at last visit you said you were maybe opening up some days in May is this happening you had said you would have a nurse reach out to vee to schedule. He is still biting his tongue a lot and feel he needs to get in with you when your able to see him. I appreciate you have a great rest of your night thank you ! Anna Sheikh APRN.[facility] 05/19/2024 9:54 AM Signed At this point she has not opened any Saturdays. Anna Sheikh APRN.[facility] Lois Rod MA 05/19/2024 10:01 AM Signed Pt informed via Bubbly message Lois Rod MA Allergies As of Date: 05/12/2024 Noted Allergy Reaction PENICILLINS 08/30/2013 16 - Unknown Date Reviewed: 04/25/2024 Reviewed by: July Beaver LPN - Fully Assessed Reason for Visit: Patient Question [1947] Prescriptions as of 05/19/2024 - potassium chloride (K-TAB) 10 mEq tablet Take 1 tablet by mouth two times a day with meals. - phentermine-topiramat e ER (QSYMIA) 11.25-69 mg 24 Hr Capsule Take 1 capsule by mouth once daily for 90 days. BMI 31.32 - hydrOXYchloroQUINE (PLAQUENIL) 200 mg tablet Take 1 tablet by mouth once daily. - chlorthalidone (HYGROTON) 25 mg tablet Take 1 tablet by mouth once daily. As needed for edema - buPROPion (WELLBUTRIN) 75 mg tablet Take 2 tablets in the AM and 1 tablet in the afternoon - traZODone (DESYREL) 50 mg tablet Take 1-2 tablets by mouth daily at bedtime. - metroNIDAZOLE 0.75 % cream Apply to affected area two times a day. - hydrocortisone 2.5 % cream Apply 1 application to affected area two times a day as needed (hemorrhoids). Location: hemorrhoids - naproxen (NAPROSYN) 500 mg tablet Take 1 tablet by mouth two times a day as needed (for pain/inflammation). Take with food. - furosemide (LASIX) 20 mg tablet Take 0.5-1 tablets by mouth daily with breakfast. - Cholecalciferol, Vitamin D3, 2,000 unit cap Take 2 tablets by mouth once daily. Problem List As Of Date 05/12/2024 Noted Resolved Varicose veins of both legs with edema [I83.893]09/15/2014 Raynaud phenomenon [I73.00] 09/15/2014 Stiffness of hand joint [M25.649] 09/15/2014 Inflammatory polyarthropathy (HCC) [M06.4] 04/14/2015 Obesity, Class I, BMI 30-34.9 [E66.811] 01/16/2016 Symptomatic varicose veins [I83.899] 06/27/2016 Obesity, [...] flashes [R23.2] 10/28/2022 Situational depression [F43.21] 11/27/2022 Varicose veins of both lower extremities with p*06/03/2023 Nausea [R11.0] 04/25/2024 SOB (shortness of breath) [R06.02] 04/25/2024 Hypokalemia [E87.6] 04/25/2024 Inflammatory arthritis [M19.90] 04/25/2024 Encounter Status:Closed by LOIS ROD on 05/19/24 [facility]-30-2024 Potassium [Moles/Vol] 3.4 mmol/L Low 3.5-5.1 [facility] Comment on above: Performed By: #### L 501.2450, L503.0105, L500.4050, L506.1000, L501.9520, L100.0100 #### [facility] [address] [place], [address] CNPNon 04-27-2024 [facility] WANDA CAAL ([id number]) 1980 F Date Time Provider Department 04/27/24 HILTON DOTY [facility] During your visit today, we recorded the following information about you: Lois Rod MA 04/27/2024 8:57 AM Signed Lab results attached. Lois Rod MA View External Labs - Miscellaneous Lab [ID [id number]] View External Labs - Miscellaneous Lab [ID [id number]] View External Labs - Miscellaneous Lab [ID [id number]] Hilton DotyDO 04/27/2024 6:31 PM Signed Please inform patient that her labs show that her vitamin B12 is low normal. Would recommend taking additional 500-1000 mcg vitamin B12 daily in the AM. Also her potassium was low at 2.8. needs to be taking the potassium supplement rx I sent in twice a day with meals. Recheck potassium in 3-4 days DO Krissy Brady Jazzmin, MA 04/27/2024 6:54 PM Signed Pt informed, verbalized understanding FRENCH Barker Stephanie, RN 04/28/2024 8:36 AM Signed Patient calls requesting Lab orders to be faxed to her at [phone]. Lab orders faxed as requested. Simran Méndez RN Allergies As of Date: 04/27/2024 Noted Allergy Reaction PENICILLINS 08/30/2013 16 - Unknown Date Reviewed: 04/25/2024 Reviewed by: July Beaver LPN - Fully Assessed Reason for Visit: Results [95] Primary Visit Diagnosis:Hypokalemia [E87.6] Order(s):POTASSIUM [SQK1] Order #: [id number] FUTURE Prescriptions as of 04/28/2024 - potassium chloride (K-TAB) 10 mEq tablet Take 1 tablet by mouth two times a day with meals. - phentermine-topiramat e ER (QSYMIA) 11.25-69 mg 24 Hr Capsule Take 1 capsule by mouth once daily for 90 days. BMI 31.32 - hydrOXYchloroQUINE (PLAQUENIL) 200 mg tablet Take 1 tablet by mouth once daily. - chlorthalidone (HYGROTON) 25 mg tablet Take 1 tablet by mouth once daily. As needed for edema - LORazepam (ATIVAN) 0.5 mg Take 1 tablet by mouth once daily as needed (anxiety attack) for up to 30 days. - buPROPion (WELLBUTRIN) 75 mg tablet Take 2 tablets in the AM and 1 tablet in the afternoon - traZODone (DESYREL) 50 mg tablet Take 1-2 tablets by mouth daily at bedtime. - metroNIDAZOLE 0.75 % cream Apply to affected area two times a day. - hydrocortisone 2.5 % cream Apply 1 application to affected area two times a day as needed (hemorrhoids). Location: hemorrhoids - naproxen (NAPROSYN) 500 mg tablet Take 1 tablet by mouth two times a day as needed (for pain/inflammation). Take with food. - furosemide (LASIX) 20 mg tablet Take 0.5-1 tablets by mouth daily with breakfast. - Cholecalciferol, Vitamin D3, 2,000 unit cap Take 2 tablets by mouth once daily. Problem List As Of Date 04/27/2024 Noted Resolved Varicose veins of both legs [...] flashes [R23.2] 10/28/2022 Situational depression [F43.21] 11/27/2022 Varicose veins of both lower extremities with p*06/03/2023 Nausea [R11.0] 04/25/2024 SOB (shortness of breath) [R06.02] 04/25/2024 Hypokalemia [E87.6] 04/25/2024 Inflammatory arthritis [M19.90] 04/25/2024 Encounter Status:Closed by HOLIDAY, LOIS on 04/27/24 Normal [facility] CBC W/Diff, Automatedon 09-09 06-2023 Absolute Lymph 2.27 X10 3/uL Normal 0.83-4.51 [facility] Comment on above: Performed By: #### L 501.2450, L503.0105, L500.4050, L506.1000, L501.9520, L100.0100 #### [facility] [address] [place], [address] Absolute Neut 3.3 X10 3/uL Normal 2.0-7.7 [facility] Comment on above: Result Comment: This specimen has been REJECTED due to Laboratory criteria: Clotted. GHAZALA has been notified of need of recollection. 04/26/24 0706 Nohelia Rosenbaum Performed By: #### L 501.2450, L503.0105, L500.4050, L506.1000, L501.9520, L100.0100 #### [facility] [address] [place], [address] Basophils/100 WBC (Bld) 0.3 % Normal 0-1 [facility] Comment on above: Performed By: #### L 501.2450, L503.0105, L500.4050, L506.1000, L501.9520, L100.0100 #### [facility] [address] [place], [address] Eosinophils/100 WBC (Bld) 1.0 % Normal 0-5 [facility] Comment on above: Performed By: #### L 501.2450, L503.0105, L500.4050, L506.1000, L501.9520, L100.0100 #### [facility] [address] [place], [address] Erythrocyte distribution width (RBC) [Ratio] 13.2 % Normal 11.6-14.6 [facility] Comment on above: Result Comment: This specimen has been REJECTED due to Laboratory criteria: Clotted. GHAZALA has been notified of need of recollection. 04/26/24705 Nohelia Rosenbaum Performed By: #### L 501.2450, L503.0105, L500.4050, L506.1000, L501.9520, L100.0100 #### [facility] [address] [place], [address] Hematocrit (Bld) [Volume fraction] 42.2 % Normal 37-47 [facility] Comment on above: Result Comment: This specimen has been REJECTED due to Laboratory criteria: Clotted. GHAZALA has been notified of need of recollection. 04/26/24705 Nohelia Rosenbaum Performed By: #### L 501.2450, L503.0105, L500.4050, L506.1000, L501.9520, L100.0100 #### [facility] [address] [place], [address] Hemoglobin (Bld) [Mass/Vol] 14.1 g/dL Normal 12.0-15.0 [facility] Comment on above: Result Comment: This specimen has been REJECTED due to Laboratory criteria: Clotted. GHAZALA has been notified of need of recollection. 04/26/24705 Nohelia Robi Performed By: #### L 501.2450, L503.0105, L500.4050, L506.1000, L501.9520, L100.0100 #### [facility] [address] [place], [address] IG% 0.200 Normal 0.0-0.9 [facility] Comment on above: Result Comment: IG% - Immature Granulocytes (promyelocytes, myelocytes and metamyelocytes) > 1% indicates that a LEFT SHIFT is Present. Performed By: #### L 501.2450, L503.0105, L500.4050, L506.1000, L501.9520, L100.0100 #### [facility] [address] [place], [address] Lymphocytes/100 WBC (Bld) 37.3 % Normal 19-41 [facility] Comment on above: Performed By: #### L 501.2450, L503.0105, L500.4050, L506.1000, L501.9520, L100.0100 #### [facility] [address] [place], [address] MCH (RBC) [Entitic mass] 29.8 pg Normal 27.0-32.0 [facility] Comment on above: Result Comment: This specimen has been REJECTED due to Laboratory criteria: Clotted. GHAZALA has been notified of need of recollection. 04/26/24705 Nohelia Robi Performed By: #### L 501.2450, L503.0105, L500.4050, L506.1000, L501.9520, L100.0100 #### [facility] [address] [place], [address] MCHC (RBC) [Mass/Vol] 33.4 g/dL Normal 32-36 [facility] Comment on above: Result Comment: This specimen has been REJECTED due to Laboratory criteria: Clotted. GHAZALA has been notified of need of recollection. 04/26/24705 Nohelia Robi Performed By: #### L 501.2450, L503.0105, L500.4050, L506.1000, L501.9520, L100.0100 #### [facility] [address] [place], [address] MCV (RBC) [Entitic vol] 89.2 fL Normal 81-99 [facility] Comment on above: Result Comment: This specimen has been REJECTED due to Laboratory criteria: Clotted. GHAZALA has been notified of need of recollection. 04/26/24705 Nohelia Robi Performed By: #### L 501.2450, L503.0105, L500.4050, L506.1000, L501.9520, L100.0100 #### [facility] [address] [place], [address] Monocytes/100 WBC (Bld) 6.6 % Normal 0-10 [facility] Comment on above: Performed By: #### L 501.2450, L503.0105, L500.4050, L506.1000, L501.9520, L100.0100 #### [facility] [address] [place], [address] Neutrophils/100 WBC (Bld) 54.6 % Normal 47-70 [facility] Comment on above: Result Comment: This specimen has been REJECTED due to Laboratory criteria: Clotted. GHAZALA has been notified of need of recollection. 04/26/24705 Nohelia Rosenbaum Performed By: #### L 501.2450, L503.0105, L500.4050, L506.1000, L501.9520, L100.0100 #### [facility] [address] [place], [address] Nucleated RBC (Bld) [#/Vol] 0 10*3/uL Normal 0-5 [facility] Comment on above: Performed By: #### L 501.2450, L503.0105, L500.4050, L506.1000, L501.9520, L100.0100 #### [facility] [address] [place], [address] Platelet mean volume (Bld) [Entitic vol] 9.9 fL Normal 6.2-12.0 [facility] Comment on above: Performed By: #### L 501.2450, L503.0105, L500.4050, L506.1000, L501.9520, L100.0100 #### [facility] [address] [place], [address] Platelets (Bld) [#/Vol] 274 10*3/uL Normal 150-450 [facility] Comment on above: Result Comment: This specimen has been REJECTED due to Laboratory criteria: Clotted. GHAZALA has been notified of need of recollection. 04/26/24705 Nohelia Rosenbaum Performed By: #### L 501.2450, L503.0105, L500.4050, L506.1000, L501.9520, L100.0100 #### [facility] [address] [place], [address] RBC (Bld) [#/Vol] 4.73 10*6/uL Normal 4.2-5.4 [facility] Comment on above: Result Comment: This specimen has been REJECTED due to Laboratory criteria: Clotted. GHAZALA has been notified of need of recollection. 04/26/24705 Nohelia Rosenbaum Performed By: #### L 501.2450, L503.0105, L500.4050, L506.1000, L501.9520, L100.0100 #### [facility] [address] [place], [address] RDW SD 43.2 fl Normal 35.1-43.9 [facility] Comment on above: Result Comment: This specimen has been REJECTED due to Laboratory criteria: Clotted. GHAZALA has been notified of need of recollection. 04/26/24705 Nohelia Rosenbaum Performed By: #### L 501.2450, L503.0105, L500.4050, L506.1000, L501.9520, L100.0100 #### [facility] [address] [place], [address] WBC (Bld) [#/Vol] 6.1 10*3/uL Normal 4.4-11.0 [facility] Comment on above: Result Comment: This specimen has been REJECTED due to Laboratory criteria: Clotted. GHAZALA has been notified of need of recollection. 04/26/24705 Nohelia Rosenbaum Performed By: #### L 501.2450, L503.0105, L500.4050, L506.1000, L501.9520, L100.0100 #### [facility] [address] [place], [address] Comprehensive Metabolic Prof ilon 04-26-2024 Albumin [Mass/Vol] 3.8 g/dL Normal 3.2-5.0 [facility] Comment on above: Performed By: #### L 501.2450, L503.0105, L500.4050, L506.1000, L501.9520, L100.0100 #### [facility] [address] [place], [address] Albumin/Globulin [Mass ratio] 1.0 {ratio} Normal 0.9-2.4 [facility] Comment on above: Performed By: #### L 501.2450, L503.0105, L500.4050, L506.1000, L501.9520, L100.0100 #### [facility] [address] [place], [address] ALK P 93 U/L Normal 45-117 [facility] Comment on above: Performed By: #### L 501.2450, L503.0105, L500.4050, L506.1000, L501.9520, L100.0100 #### [facility] [address] [place], [address] ALT [Catalytic activity/Vol] 16 U/L Normal 13-56 [facility] Comment on above: Performed By: #### L 501.2450, L503.0105, L500.4050, L506.1000, L501.9520, L100.0100 #### [facility] [address] [place], [address] AST [Catalytic activity/Vol] 16 U/L Normal 15-37 [facility] Comment on above: Performed By: #### L 501.2450, L503.0105, L500.4050, L506.1000, L501.9520, L100.0100 #### [facility] [address] [place], [address] Bilirubin [Mass/Vol] 0.50 mg/dL Normal 0.20-1.00 [facility] Comment on above: Result Comment: For patients on eltrombopag therapy, use of Dimension [place] TBIL is not recommended. Performed By: #### L 501.2450, L503.0105, L500.4050, L506.1000, L501.9520, L100.0100 #### [facility] [address] [place], [address] BUN/CRE 13.7 RATIO Normal 10-20 [facility] Comment on above: Performed By: #### L 501.2450, L503.0105, L500.4050, L506.1000, L501.9520, L100.0100 #### [facility] [address] [place], [address] CA,Total 9.6 mg/dL Normal 8.5-10.1 [facility] Comment on above: Performed By: #### L 501.2450, L503.0105, L500.4050, L506.1000, L501.9520, L100.0100 #### [facility] [address] [place], [address] Chloride [Moles/Vol] 101 mmol/L Normal 98-107 [facility] Comment on above: Performed By: #### L 501.2450, L503.0105, L500.4050, L506.1000, L501.9520, L100.0100 #### [facility] [address] [place], [address] CO2 [Moles/Vol] 32.0 mmol/L Normal 21.0-32.0 [facility] Comment on above: Performed By: #### L 501.2450, L503.0105, L500.4050, L506.1000, L501.9520, L100.0100 #### [facility] [address] [place], [address] Creatinine [Mass/Vol] 1.02 mg/dL Normal 0.55-1.02 [facility] Comment on above: Result Comment: The validity of the calculated GFR GFRAA in patients over 70 years has not been determined. Clinical correlation is essential. Performed By: #### L 501.2450, L503.0105, L500.4050, L506.1000, L501.9520, L100.0100 #### [facility] [address] [place], [address] EST GFR - AA 76 mL/min Normal >60 [facility] Comment on above: Result Comment: Afri can [place] GFR Calc Performed By: #### L 501.2450, L503.0105, L500.4050, L506.1000, L501.9520, L100.0100 #### [facility] [address] [place], [address] GAP 6 Normal 5-15 [facility] Comment on above: Performed By: #### L 501.2450, L503.0105, L500.4050, L506.1000, L501.9520, L100.0100 #### [facility] [address] [place], [address] GFR/1.73 sq M.predicted among non-blacks MDRD (S/P/Bld) [Vol rate/Area] 63 mL/min/{1.73_m2} Normal >60 [facility] Comment on above: Result Comment: Non- GFR Calc Performed By: #### L 501.2450, L503.0105, L500.4050, L506.1000, L501.9520, L100.0100 #### [facility] [address] [place], [address] Globulin (S) [Mass/Vol] 4.0 g/dL Normal 2.2-4.2 [facility] Comment on above: Performed By: #### L 501.2450, L503.0105, L500.4050, L506.1000, L501.9520, L100.0100 #### [facility] [address] [place], [address] Glucose [Mass/Vol] 108 mg/dL High 74-106 [facility] Comment on above: Result Comment: Fast ing Glucose result from 100 to 125 mg/dL suggests IMPAIRED HOMEOSTASIS per A.D.A. criteria. Performed By: #### L 501.2450, L503.0105, L500.4050, L506.1000, L501.9520, L100.0100 #### [facility] [address] [place], [address] Potassium [Moles/Vol] 2.8 mmol/L Low 3.5-5.1 [facility] Comment on above: Performed By: #### L 501.2450, L503.0105, L500.4050, L506.1000, L501.9520, L100.0100 #### [facility] [address] [place], [address] Sodium [Moles/Vol] 139 mmol/L Normal 136-145 [facility] Comment on above: Performed By: #### L 501.2450, L503.0105, L500.4050, L506.1000, L501.9520, L100.0100 #### [facility] [address] [place], [address] T PROT 7.8 g/dL Normal 6.4-8.2 [facility] Comment on above: Performed By: #### L 501.2450, L503.0105, L500.4050, L506.1000, L501.9520, L100.0100 #### [facility] [address] [place], [address] Urea nitrogen [Mass/Vol] 14 mg/dL Normal 7-18 [facility] Comment on above: Performed By: #### L 501.2450, L503.0105, L500.4050, L506.1000, L501.9520, L100.0100 #### [facility] [address] [place], [address] Lipaseon 04-26-2024 Lipase [Catalytic activity/Vol] 21 U/L Normal 13-75 [facility] Comment on above: Result Comment: Bubba moreno note: LIPASE revised reference range effective 22. New Lipase methodology. Expected to produce lower values than the previous assay method. NEW Reference Range: 13 - 75 U/L Performed By: #### L 501.2450, L503.0105, L500.4050, L506.1000, L501.9520, L100.0100 #### [facility] [address] [place], [address] Thyroid Stim Hormone (TSH)on 04-26-2024 TSH 3.100 uIU/mL Normal 0.358-3.740 [facility] Comment on above: Performed By: #### L 501.2450, L503.0105, L500.4050, L506.1000, L501.9520, L100.0100 #### [facility] [address] [place], [address] Vitamin B12on 04-26-2024 Cobalamin (Vitamin B12) [Mass/Vol] 466 pg/mL Normal 211-911 [facility] Comment on above: Performed By: #### L 501.2450, L503.0105, L500.4050, L506.1000, L501.9520, L100.0100 #### [facility] [address] [place], [address] Vitamin D,25 Hydroxyon 04-26 Vitamin D 25-OH 76.2 ng/mL Normal [facility] Comment on above: Result Comment: Kristen min D 25(OH) Status Range Deficiency <20 ng/mL (50nmol/L) Insufficiency 20 - 30 ng/mL (50 - 75 nmol/L) Sufficiency 30 - 100 ng/mL (75 - 250 nmol/L) Toxicity >100 ng/mL (>250 nmol/L) Performed By: #### L 501.2450, L503.0105, L500.4050, L506.1000, L501.9520, L100.0100 #### [facility] [place], [address] CNOVon 04-25-2024 CNOV Office Visit (FAMPWS ) WANDA CAAL ([id number]) 1980 F Date Time Provider Department 04/25/24 10:00 AM [facility] During your visit today, we recorded the following information about you: Temperature Pulse Respiration Blood pressure 97 degrees 64/minute 12/minute 120/80 Weight 86.2 kg Hilton Doty DO 04/25/2024 11:46 AM Signed CC: Wanda Caal is a 44 year old female who presents to the office for follow up HPI: Previously at her OFFICE VISIT on 10/21/2023 Inflammatory polyarthropathy, no signs of retinal concerns for her plaquenil monitoring. states had dilated eye exam by Dr. Genao in May 2023 Does feel that her mirena and perimenopause hormonal changes are bothering her. She feels that her complains about her libido changes and she has some days that she is still irritable/easily upset and is emotional. Has support from her family. Still also getting used to a new job at [employer] over the last 7-8 months as well. Had abnormal mammogram right breast, had to get ultrasound of right breast which determined the area was a benign cyst without concerns. This added to her anxiety symptoms. Knows needs this testing repeated. Obesity, weight at 198 lbs. Knows need for further weight loss. Is taking the qsymia and tolerating rx well. Would like to continue medication. Trying to continue healthy diet choices and exercise as well. would also be interested in seeing [facility] Filler at [facility] Currently Has been having increased stressors at her job when her co-worker FRENCH quit and she is doing her job alone. Hasn't been feeling like herself lately and with this above stress, she feels overwhelmed. Has been struggling with being nauseated in the AM and when she is on her menses cycles. She struggles to eat the breakfast. Was recently seen in the EMERGENCY DEPARTMENT on 04/04/24 due to shortness of breath. Her potassium level was 2.7. she was started on potassium supplement, her CXR was normal Varicose veins, b/l legs, hasn't made appt yet with vascular surgeon for evaluation for correction but knows she needs to do this. Inflammatory arthropathy, taking plaquenil 200 mg once a day, needs to make follow up with [facility]. Mood, struggling with being stressed due to all the above health issues as well as depression in her that she is trying to help him with as well. No SI or HI. She is taking her wellbutrin as prescribed Obesity, weight at 190 lbs. Knows need for further weight loss. Is taking the qsymia and tolerating rx well. Would like to continue medication. Trying to continue healthy diet choices and exercise as well. she has been seeing Grease Cup Filler at [facility] PAST MEDICAL HISTORY Diagnosis Date MAXIM positive 09/2014 Inflammatory polyarthropathy (HCC) Kidney stone with stent Raynaud's disease PAST SURGICAL HISTORY Procedure Laterality Date DANCT (MISSED AB 1ST TRIMESTER) 2001 ESWL Right 05/08/2017 EXTRACTION, ERUPTED TOOTH OR EXPOSED ROOT (ELEVATION AND/OR FORCEPS REMOVAL) GALLBLADDER/EF TUBAL LIGATION HX 2006 Social History: Social History Tobacco Use Smoking status: Never Smokeless tobacco: Never Vaping Use Vaping status: Never Used Substance Use Topics Alcohol use: Yes Comment: [...] mouth once daily. As needed for edema LORazepam (ATIVAN) 0.5 mg Take 1 tablet by mouth once daily as needed (anxiety attack) for up to 30 days. buPROPion (WELLBUTRIN) 75 mg tablet Take 2 tablets in the AM and 1 tablet in the afternoon traZODone (DESYREL) 50 mg tablet Take 1-2 tablets by mouth daily at bedtime. metroNIDAZOLE 0.75 % cream Apply to affected area two times a day. hydrocortisone 2.5 % cream Apply 1 application to affected area two times a day as needed (hemorrhoids). Location: hemorrhoids naproxen (NAPROSYN) 500 mg tablet Take 1 tablet by mouth two times a day as needed (for pain/inflammation). Take with food. furosemide (LASIX) 20 mg tablet Take 0.5-1 tablets by mouth daily with breakfast. Cholecalciferol, Vitamin D3, 2,000 unit cap Take 2 tablets by mouth once daily. Allergies: ALLERGIES Allergen Reactions Penicillins Unknown ROS: See HPI PE: 04/25/24 1016 BP: 120/80 Pulse: 64 Resp: 12 Temp: 36.1 ?C (97 ?F) TempSrc: Right Tympanic Weight: 86.2 kg (190 lb) Gen: AANDO, NAD, non-toxic appearing, Pleasant, cooperative HEENT: NT/AC, PERRLA, EOMs intact b/l, na (more content not included)... Normal [facility] 12 Lead EKGon 04-04-2024 12 Lead EKG [facility] Cardiovascular Services [address] [place] [address] 12 Lead EKG 04/04/24 1059 MR#: [id number] Acct: [id number] Name: WANDA CAAL Rep #: [id number] : 1980 44 From: Stone Quiñonez MD Attending Dr: Status: DEP ER Ordering Dr: Ricki Del Rio MD Date: 04/04/24 Location: ED Sex: F C Admitted: Test Reason : CP Blood Pressure : / mmHG Vent. Rate : 067 BPM Atrial Rate : 067 BPM P-R Int : 150 ms QRS Dur : 112 ms QT Int : 426 ms P-R-T Axes : 066 072 053 degrees QTc Int : 450 ms Normal sinus rhythm with sinus arrhythmia Normal ECG Confirmed by STONE QUIÑONEZ MD ([id number]), editor city LISSA BLANCO ([id number]) on 04/05/2024 1:13:27 PM Referred By: BB/TB Confirmed By:STONE QUIÑONEZ MD 04/05/24 1313 Date Stone Quiñonez MD CC: Dr. Ricki Del Rio MD; Dr. Hilton Doty DO Signed Normal [facility] Basic Metabolic Profile (BMP )on 04-04-2024 BUN/CRE 17.7 RATIO Normal 10-20 [facility] Comment on above: Order Comment: 'TROP ' Serial specimen #1, #2 or #3: 1 Performed By: #### L 501.2450, L503.0105, L500.4050, L506.1000, L501.9520, L100.0100 #### [facility] [address] [place], [address] CA,Total 9.4 mg/dL Normal 8.5-10.1 [facility] Comment on above: Order Comment: 'TROP ' Serial specimen #1, #2 or #3: 1 Performed By: #### L 501.2450, L503.0105, L500.4050, L506.1000, L501.9520, L100.0100 #### [facility] [address] [place], [address] Chloride [Moles/Vol] 101 mmol/L Normal 98-107 [facility] Comment on above: Order Comment: 'TROP ' Serial specimen #1, #2 or #3: 1 Performed By: #### L 501.2450, L503.0105, L500.4050, L506.1000, L501.9520, L100.0100 #### [facility] [address] [place], [address] CO2 [Moles/Vol] 33.0 mmol/L High 21.0-32.0 [facility] Comment on above: Order Comment: 'TROP ' Serial specimen #1, #2 or #3: 1 Performed By: #### L 501.2450, L503.0105, L500.4050, L506.1000, L501.9520, L100.0100 #### [facility] [address] [place], [address] Creatinine [Mass/Vol] 0.85 mg/dL Normal 0.55-1.02 [facility] Comment on above: Order Comment: 'TROP ' Serial specimen #1, #2 or #3: 1 Result Comment: The validity of the calculated GFR GFRAA in patients over 70 years has not been determined. Clinical correlation is essential. Performed By: #### L 501.2450, L503.0105, L500.4050, L506.1000, L501.9520, L100.0100 #### [facility] [address] [place], [address] ECRCL 95.95 ml/min Normal [facility] Comment on above: Order Comment: 'TROP ' Serial specimen #1, #2 or #3: 1 Performed By: #### L 501.2450, L503.0105, L500.4050, L506.1000, L501.9520, L100.0100 #### [facility] [address] [place], [address] EST GFR - AA 94 mL/min Normal >60 [facility] Comment on above: Order Comment: 'TROP ' Serial specimen #1, #2 or #3: 1 Result Comment: Afri can Mont[place] GFR Calc Performed By: #### L 501.2450, L503.0105, L500.4050, L506.1000, L501.9520, L100.0100 #### [facility] [address] [place], [address] GAP 5 Normal 5-15 [facility] Comment on above: Order Comment: 'TROP ' Serial specimen #1, #2 or #3: 1 Performed By: #### L 501.2450, L503.0105, L500.4050, L506.1000, L501.9520, L100.0100 #### [facility] [address] [place], [address] GFR/1.73 sq M.predicted among non-blacks MDRD (S/P/Bld) [Vol rate/Area] 77 mL/min/{1.73_m2} Normal >60 [facility] Comment on above: Order Comment: 'TROP ' Serial specimen #1, #2 or #3: 1 Result Comment: Non- GFR Calc Performed By: #### L 501.2450, L503.0105, L500.4050, L506.1000, L501.9520, L100.0100 #### [facility] [address] [place], [address] Glucose [Mass/Vol] 96 mg/dL Normal 74-106 [facility] Comment on above: Order Comment: 'TROP ' Serial specimen #1, #2 or #3: 1 Performed By: #### L 501.2450, L503.0105, L500.4050, L506.1000, L501.9520, L100.0100 #### [facility] [address] [place], [address] Potassium [Moles/Vol] 2.7 mmol/L Invalid Interpretation Code 3.5-5.1 [facility] Comment on above: Order Comment: 'TROP ' Serial specimen #1, #2 or #3: 1 Result Comment: Crit ical Result(s) Called at: 12:10:59 04/04/2024 by: Corinne Stoll. Results read back by same. Performed By: #### L 501.2450, L503.0105, L500.4050, L506.1000, L501.9520, L100.0100 #### [facility] [address] [place], [address] Sodium [Moles/Vol] 139 mmol/L Normal 136-145 [facility] Comment on above: Order Comment: 'TROP ' Serial specimen #1, #2 or #3: 1 Performed By: #### L 501.2450, L503.0105, L500.4050, L506.1000, L501.9520, L100.0100 #### [facility] [address] [place], [address] Urea nitrogen [Mass/Vol] 15 mg/dL Normal 7-18 [facility] Comment on above: Order Comment: 'TROP ' Serial specimen #1, #2 or #3: 1 Performed By: #### L 501.2450, L503.0105, L500.4050, L506.1000, L501.9520, L100.0100 #### [facility] [address] [place], [address] CBC W/Diff, Automatedon 09-0 2-2023 Absolute Lymph 2.04 X10 3/uL Normal 0.83-4.51 [facility] Comment on above: Performed By: #### L 501.2450, L503.0105, L500.4050, L506.1000, L501.9520, L100.0100 #### [facility] [address] [place], [address] Absolute Neut 3.3 X10 3/uL Normal 2.0-7.7 [facility] Comment on above: Performed By: #### L 501.2450, L503.0105, L500.4050, L506.1000, L501.9520, L100.0100 #### [facility] [address] [place], [address] Basophils/100 WBC (Bld) 0.6 % Normal 0-1 [facility] Comment on above: Performed By: #### L 501.2450, L503.0105, L500.4050, L506.1000, L501.9520, L100.0100 #### [facility] [address] [place], [address] Eosinophils/100 WBC (Bld) 2.6 % Normal 0-5 [facility] Comment on above: Performed By: #### L 501.2450, L503.0105, L500.4050, L506.1000, L501.9520, L100.0100 #### [facility] [address] [place], [address] Erythrocyte distribution width (RBC) [Ratio] 13.8 % Normal 11.6-14.6 [facility] Comment on above: Performed By: #### L 501.2450, L503.0105, L500.4050, L506.1000, L501.9520, L100.0100 #### [facility] [address] [place], [address] Hematocrit (Bld) [Volume fraction] 40.8 % Normal 37-47 [facility] Comment on above: Performed By: #### L 501.2450, L503.0105, L500.4050, L506.1000, L501.9520, L100.0100 #### [facility] [address] [place], [address] Hemoglobin (Bld) [Mass/Vol] 13.6 g/dL Normal 12.0-15.0 [facility] Comment on above: Performed By: #### L 501.2450, L503.0105, L500.4050, L506.1000, L501.9520, L100.0100 #### [facility] [address] [place], [address] IG% 0.300 Normal 0.0-0.9 [facility] Comment on above: Result Comment: IG% - Immature Granulocytes (promyelocytes, myelocytes and metamyelocytes) > 1% indicates that a LEFT SHIFT is Present. Performed By: #### L 501.2450, L503.0105, L500.4050, L506.1000, L501.9520, L100.0100 #### [facility] [address] [place], [address] Lymphocytes/100 WBC (Bld) 33.1 % Normal 19-41 [facility] Comment on above: Performed By: #### L 501.2450, L503.0105, L500.4050, L506.1000, L501.9520, L100.0100 #### [facility] [address] [place], [address] MCH (RBC) [Entitic mass] 29.8 pg Normal 27.0-32.0 [facility] Comment on above: Performed By: #### L 501.2450, L503.0105, L500.4050, L506.1000, L501.9520, L100.0100 #### [facility] [address] [place], [address] MCHC (RBC) [Mass/Vol] 33.3 g/dL Normal 32-36 [facility] Comment on above: Performed By: #### L 501.2450, L503.0105, L500.4050, L506.1000, L501.9520, L100.0100 #### [facility] [address] [place], [address] MCV (RBC) [Entitic vol] 89.5 fL Normal 81-99 [facility] Comment on above: Performed By: #### L 501.2450, L503.0105, L500.4050, L506.1000, L501.9520, L100.0100 #### [facility] [address] [place], [address] Monocytes/100 WBC (Bld) 9.4 % Normal 0-10 [facility] Comment on above: Performed By: #### L 501.2450, L503.0105, L500.4050, L506.1000, L501.9520, L100.0100 #### [facility] [address] [place], [address] Neutrophils/100 WBC (Bld) 54.0 % Normal 47-70 [facility] Comment on above: Performed By: #### L 501.2450, L503.0105, L500.4050, L506.1000, L501.9520, L100.0100 #### [facility] [address] [place], [address] Nucleated RBC (Bld) [#/Vol] 0 10*3/uL Normal 0-5 [facility] Comment on above: Performed By: #### L 501.2450, L503.0105, L500.4050, L506.1000, L501.9520, L100.0100 #### [facility] [address] [place], [address] Platelet mean volume (Bld) [Entitic vol] 10.1 fL Normal 6.2-12.0 [facility] Comment on above: Performed By: #### L 501.2450, L503.0105, L500.4050, L506.1000, L501.9520, L100.0100 #### [facility] [address] [place], [address] Platelets (Bld) [#/Vol] 229 10*3/uL Normal 150-450 [facility] Comment on above: Performed By: #### L 501.2450, L503.0105, L500.4050, L506.1000, L501.9520, L100.0100 #### [facility] [address] [place], [address] RBC (Bld) [#/Vol] 4.56 10*6/uL Normal 4.2-5.4 [facility] Comment on above: Performed By: #### L 501.2450, L503.0105, L500.4050, L506.1000, L501.9520, L100.0100 #### [facility] [address] [place], [address] RDW SD 44.9 fl High 35.1-43.9 [facility] Comment on above: Performed By: #### L 501.2450, L503.0105, L500.4050, L506.1000, L501.9520, L100.0100 #### [facility] [address] [place], [address] WBC (Bld) [#/Vol] 6.2 10*3/uL Normal 4.4-11.0 [facility] Comment on above: Performed By: #### L 501.2450, L503.0105, L500.4050, L506.1000, L501.9520, L100.0100 #### [facility] [address] [place], [address] Chest PA and Lateralon 04-04 Chest PA and Lateral [facility] Imaging Services [address] [place] [address] Chest PA and Lateral MR#: [id number] Acct: [id number] Name: WANDA CAAL Rep #: [id number] : 1980 F 44 From: Noel mcgraw DO PCP: Dr. Hilton Doty DO Status: [facility] ER Study: Chest PA and Lateral Date of Exam: 04/04/24 Exam# [id number] Ordering Dr: Ricki Del Rio MD [id number] EXAM: XR CHEST, 2 VIEWS CLINICAL INDICATION: chest pain L TECHNIQUE: Frontal and lateral views of the chest. COMPARISON: 03/12/2020 FINDINGS: LUNGS AND PLEURAL SPACES: No significant abnormality. No consolidation or edema. No pneumothorax. No effusion. HEART: No significant abnormality. Cardiac silhouette not enlarged. MEDIASTINUM: Central airways and mediastinal contour are unremarkable. BONES/JOINTS: No significant abnormality. No acute fracture. SOFT TISSUES: No significant abnormality. RAD/Chest PA and Lateral IMPRESSION: No radiographic evidence of acute cardiopulmonary disease. Electronically Signed: Noel Tuttle DO at 12:22 EDT , CC: Dr. Ricki Del Rio MD; Dr. Hilton Doty DO Justice Court Judge: Signed Normal [facility] Emergency Department Summary on 04-04-2024 Emergency Department Summary [facility] Medical Records Department [address] [place] [id number] Emergency Department Summary 04/04/24 MR#: [id number] Acct: [id number] Name: WANDA CAAL Rep #: [id number] : 1980 44 From: Ricki Del Rio MD PCP: Dr. Hilton Doty DO Status:REG ER Location: ED HPI History of Present Illness Chief Complaint: Chest Pain Informant: patient Narrative Narrative: Patient spontaneous onset gradually bilateral anterior chest pain that started yesterday. She states today it is only on the left side and not the right. She states it hard to take a deep breath because taking a deep breath makes the pain worse, and has noticed that it is more comfortable to have her bra on. She is not frankly dyspneic feeling her breathing is abnormal because of the pain. She does not have any leg pain or swelling or history of DVT or PE but she states she has a history of varicose veins. No recent long travel or immobilization hospitalization or surgery. She denies any cough or hemoptysis. No fevers or chills. She states that she noticed it more with exertion today and when she was doing activities like folding laundry. She states she was doing a lot of work outside gardening/landscaping yesterday and other days. [facility] Medical History Wears dentures Wears glasses Anxiety Rheumatoid arthritis Arthritis Kidney stones Former smoker History of edema History of ureteral stone Home Medications ???Medication ???Instructions ???Recorded ???Last Taken ???Type naproxen 500 mg tablet 500 mg PO BID PRN PRN Pain Score 11/25/19 Unknown Rx -05/12 #20 tabs chlorthalidone 25 mg tablet 25 mg PO DAILY 03/12/20 09/28/23 History lorazepam 0.5 mg tablet 0.5 mg PO DAILY PRN PRN Anxiety 03/12/20 Unknown History bupropion HCl 75 mg tablet 75 mg PO DIRECTED 09/24/23 09/28/23 19:30 History cholecalciferol (vitamin D3) 125 125 mcg PO DAILY 09/24/23 09/28/23 History mcg (5,000 unit) capsule phentermine 11.25 mg-topiramate ER 1 cap PO DAILY 09/24/23 09/28/23 12:40 History 69 mg capsule,[id number] hr mphas (Qsymia) hydroxychloroquine 200 mg tablet 300 mg PO DAILY 09/25/23 09/28/23 19:30 History (Plaquenil) trazodone 50 mg tablet 50 mg PO QHS 09/25/23 09/27/23 History naproxen 500 mg tablet (Naprosyn) 500 mg PO BID PRN pain #20 tabs 02/05/24 Unknown Rx ondansetron 4 mg disintegrating 4 mg PO Q8H PRN PRN Nausea #10 tabs 02/05/24 Unknown Rx tablet potassium chloride 20 mEq 20 meq PO BID #6 tabs 04/04/24 Unknown Rx tablet,extended release Allergy/AdvReac Type Severity Reaction Status Date / Time Penicillins (PCN) Allergy Unknown Verified 04/04/24 10:51 Surgical History History of laparoscopic cholecystectomy Hx of cystoscopy Hx of dilation and curettage Hx of tooth extraction Hx of varicose vein stripping S/P tubal ligation Status post hysteroscopic ablation of endometrium ( 09/29/23) Social History current occupational status: employed 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 Smoking Status: Former smoker alcohol intake: never substance use type: does not use seatbelt use: always do you feel safe at home: Yes ROS ROS ED Constitutional Constitutional ED: Denies chills or fever(s) Eyes Eyes: Denies change in vision or diplopia ENT ENT ED: Denies rhinorrhea or sore throat Cardiovascular Cardiovascular: Reports as per HPI and chest pain; Denies palpitations Respiratory/Chest Respiratory/Chest: Denies cough or dyspnea Gastrointestinal Gastrointestinal: Denies abdominal pain, diarrhea, nausea or vomiting Genitourinary Genitourinary ED: Denies dysuria or hematuria Musculoskeletal Musculoskeletal: Denies back pain or neck pain Integumentary Denies abscess or rash Neurologic Neurologic: Denies headache(s), paresthesias or weakness Psychiatric Psychiatric: Denies suicidal thoughts EXAM Physical Exam Const Vital Signs: 04/04/24 10:52 04/04/24 11:12 04/04/24 11:18 Temperature 98 F Temperature Source Temporal Pulse Rate 67 Respiratory Rate 14 Respiratory Effort Normal Non-Labored Blood Pressure 130/86 H Blood Pressure Mean 100 Pulse Ox 100 Oxygen Delivery Method Room Air Room Air 04/04/24 12:51 Temperature Temperature Source Pulse Rate 61 Respiratory Rate 16 Respiratory Effort Blood Pressure 110/68 Blood Pressure Mean 82 Pulse Ox 98 Oxygen Delivery Method Room Air Positive well nourished and well developed General Appearance ED: well developed and NAD HEENT Reports moist mucous membranes normocephalic and atraumatic Eyes PERRL and EOMs (more content not included)... Normal [facility] L501.4020on 04-04-2024 TROPONIN-I HS 5 pg/mL Normal 3.0-54.0 [facility] Comment on above: Order Comment: 'TROP ' Serial specimen #1, #2 or #3: 1 Result Comment: Plea se Note: New Test Units and Gender Specific Reference Ranges. For more information see Policy Stat Procedure [place] High Sensitivity Troponin (TNIH) and attachments. Performed By: #### L 501.2450, L503.0105, L500.4050, L506.1000, L501.9520, L100.0100 #### [facility] [place], [address] CNOVon 02-08-2024 CNOV Office Visit (FAMPWS ) WANDA CAAL ([id number]) 1980 F Date Time Provider Department 02/08/24 3:40 PM [facility] During your visit today, we recorded the following information about you: Pulse Respiration Blood pressure Weight 64/minute 16/minute 108/64 89.8 kg Doris Driscoll, MERCHANDISE MARKER.[facility] 02/08/2024 5:13 PM Addendum This is a 44 year old female who presents today with: Patient presents with: ER F/U: [facility] 02/05/24 Fall HISTORY OF PRESENT ILLNESS: Wanda Caal is a 44 year old female. Patient presents with: ER F/U: [facility] 02/05/24 Fall Fell backwards off a 4 step ladder. Hit back of head. Caught up inside the ladder. Twisted. Lower thoracic spine is ecchymosis and then lower lumbar spine ecchymosis. Pain into buttocks. Right shoulder hurts. Icing it. Some intermittent headache. No blurred vision. Nauseated today but took nausea medication. (Zofran) Eyes feel sensitive. Head pressure. PAST MEDICAL HISTORY: PAST MEDICAL HISTORY Diagnosis Date MAXIM positive 09/2014 Inflammatory polyarthropathy (HCC) Kidney stone with stent Raynaud's disease PAST SURGICAL HISTORY Procedure Laterality Date [facility] (MISSED AB 1ST TRIMESTER) 2001 ESWL Right 05/08/2017 EXTRACTION, ERUPTED TOOTH OR EXPOSED ROOT (ELEVATION AND/OR FORCEPS REMOVAL) GALLBLADDER/EF TUBAL LIGATION HX 2005 ALLERGIES Penicillins MEDICATIONS Current Outpatient Medications Medication Sig LORazepam (ATIVAN) 0.5 mg Take 1 tablet by mouth once daily as needed (anxiety attack) for up to 30 days. phentermine-topiramat e ER (QSYMIA) 11.25-69 mg 24 Hr Capsule Take 1 capsule by mouth once daily for 90 days. BMI 31.32 traZODone (DESYREL) 50 mg tablet Take 1-2 tablets by mouth daily at bedtime. hydrOXYchloroQUINE (PLAQUENIL) 200 mg tablet Take 1 tablet by mouth once daily. chlorthalidone (HYGROTON) 25 mg tablet Take 1 tablet by mouth once daily. As needed for edema naproxen (NAPROSYN) 500 mg tablet Take 1 tablet by mouth two times a day as needed (for pain/inflammation). Take with food. buPROPion (WELLBUTRIN) 75 mg tablet Take 2 tablets in the AM and 1 tablet in the afternoon Cholecalciferol, Vitamin D3, 2,000 unit cap Take 2 tablets by mouth once daily. metroNIDAZOLE 0.75 % cream Apply to affected area two times a day. hydrocortisone 2.5 % cream Apply 1 application to affected area two times a day as needed (hemorrhoids). Location: hemorrhoids furosemide (LASIX) 20 mg tablet Take 0.5-1 tablets by mouth daily with breakfast. No current facility-administered medications for this visit. FAMILY HISTORY Problem Relation Age of Onset Alcohol/Drug Father Breast Cancer Maternal Grandmother Hypertension Maternal Grandmother Cancer Paternal Grandmother Breast Cancer Paternal Aunt x2 Cancer Paternal Aunt bone Social History Tobacco Use Smoking status: Never Smokeless tobacco: Never Vaping Use Vaping Use: Never used Substance Use Topics Alcohol use: Yes Comment: occ Drug use: No EXAM: BP 108/64 Pulse 64 Resp 16 Wt 89.8 kg (198 lb) LMP 12/29/2020 SpO2 99% BMI 31.01 kg/m? ANXIETY/DEPRESSION VISIT CC: Wanda Caal is a 44 year old female presents for depression and anxiety Subjective Symptoms started 8 month(s) ago and are ongoing. Current symptoms include: depressed mood and anxious feelings Previous treatments include: working with PCP Family History: Addressed by PCP Reviewed: problem list ALLERGIES Allergen Reactions Penicillins Unknown Medications: LORazepam (ATIVAN) 0.5 mg Take 1 tablet by mouth once daily as needed (anxiety attack) for up to 30 days. phentermine-topiramat e ER (QSYMIA) 11.25-69 mg 24 Hr Capsule Take 1 capsule by mouth once daily for 90 days. BMI 31.32 traZODone (DESYREL) 50 mg tablet Take 1-2 tablets by mouth daily at bedtime. hydrOXYchloroQUINE (PLAQUENIL) 200 mg tablet Take 1 tablet by mouth once daily. chlorthalidone (HYGROTON) 25 mg tablet Take 1 tablet by mouth once daily. As needed for edema naproxen (NAPROSYN) 500 mg tablet Take 1 tablet by mouth two times a day as needed (for pain/inflammation). Take with food. buPROPion (WELLBUTRIN) 75 mg tablet Take 2 tablets in the AM and 1 tablet in the afternoon Cholecalciferol, Vitamin D3, 2,000 unit cap Take 2 tablets by mouth once daily. metroNIDAZOLE 0.75 % cream Apply to affected area two times a day. hydrocortisone 2.5 % cream Apply 1 application to affected area two times a day as needed (hemorrhoids). Location: hemorrhoids furosemide (LASIX) 20 mg tablet Take 0.5-1 tablets by mouth daily with breakfast. Objective Physical Exam BP 108/64 Pulse 64 Resp 16 Wt 89.8 kg (198 lb) LMP 12/29/2020 SpO2 99% BMI 31.01 kg/m? ER read: Notes hit her head then bounced onto her right side. No loss of consciousness. Shoulder x-ray showed (more content not included)... Normal [facility] No Panel Informationon 02-07 IMPRESSION: No acute fracture or malalignment Justice Court Judge: PSC[facility] Transcribe Date/Time: Feb 08 2024 5:24P Dictated by : JAMMIE HOBBS MD This examination was interpreted and the report reviewed and electronically signed by: JAMMIE HOBBS MD on Feb 08 2024 5:28PM [facility] DIVISION OF RADIOLOGY Radiology Study observation (narrative) [facility] No Panel InformationOrdered By: [facility] Provider on 02-08-2024 [facility] XR LUMBAR 3V AP/LAT/L5-S1on 02-08-2024 XR LUMBAR 3V AP/LAT/L5-S1 * * *Final Report* * * DATE OF EXAM: Feb 08 2024 5:05PM WOX [id number] - XR LUMBAR 3V AP/LAT/L5-S1 / PROCEDURE REASON: multiple diagnoses * * * * Physician Interpretation * * * * EXAMINATION: XR THORACIC 3V AP/LAT/SWIMMERS, XR LUMBAR 3V AP/LAT/L5-S1 CLINICAL HISTORY: Back pain Technique: XR THORACIC 3V AP/LAT/SWIMMERS, XR LUMBAR 3V AP/LAT/L5-S1 -- NOT APPLICABLE with 3 views on 3 images Comparison: None RESULT: Counting reference: Lumbosacral junction. For the purposes of this report, L5-S1 is considered the last lumbar type disc space and L4-5 is considered the level of the iliac crests. No acute fracture or malalignment. Multilevel vertebral body osteophytes. IMPRESSION: No acute fracture or malalignment Justice Court Judge: [facility] Transcribe Date/Time: Feb 08 2024 5:24P Dictated by : JAMMIE HOBBS MD This examination was interpreted and the report reviewed and electronically signed by: JAMMIE HOBBS MD on Feb 08 2024 5:28PM EST [id number] Normal [facility] XR Lumbar spine 3 Viewson * * *Final Report* * * DATE OF EXAM: Feb 08 2024 5:05PM WOX [id number] - XR LUMBAR 3V AP/LAT/L5-S1 / PROCEDURE REASON: multiple diagnoses * * * * Physician Interpretation * * * * EXAMINATION: XR THORACIC 3V AP/LAT/SWIMMERS, XR LUMBAR 3V AP/LAT/L5-S1 CLINICAL HISTORY: Back pain Technique: XR THORACIC 3V AP/LAT/SWIMMERS, XR LUMBAR 3V AP/LAT/L5-S1 -- NOT APPLICABLE with 3 views on 3 images Comparison: None RESULT: Counting reference: Lumbosacral junction. For the purposes of this report, L5-S1 is considered the last lumbar type disc space and L4-5 is considered the level of the iliac crests. No acute fracture or malalignment. Multilevel vertebral body osteophytes. DIVISION OF RADIOLOGY Provider, [facility] - 02/08/2024 * * *Final Report* * * DATE OF EXAM: Feb 08 2024 5:05PM WOX [id number] - XR LUMBAR 3V AP/LAT/L5-S1 / PROCEDURE REASON: multiple diagnoses * * * * Physician Interpretation * * * * EXAMINATION: XR THORACIC 3V AP/LAT/SWIMMERS, XR LUMBAR 3V AP/LAT/L5-S1 CLINICAL HISTORY: Back pain Technique: XR THORACIC 3V AP/LAT/SWIMMERS, XR LUMBAR 3V AP/LAT/L5-S1 -- NOT APPLICABLE with 3 views on 3 images Comparison: None RESULT: Counting reference: Lumbosacral junction. For the purposes of this report, L5-S1 is considered the last lumbar type disc space and L4-5 is considered the level of the iliac crests. No acute fracture or malalignment. Multilevel vertebral body osteophytes. IMPRESSION IMPRESSION: No acute fracture or malalignment Justice Court Judge: [place] Transcribe Date/Time: Feb 08 2024 5:24P Dictated by : JAMMIE HOBBS MD This examination was interpreted and the report reviewed and electronically signed by: JAMMIE HOBBS MD on Feb 08 2024 5:28PM EST [facility] XR THORACIC 3V AP/LAT/SWIMME RSon 02-08-2024 XR THORACIC 3V AP/LAT/SWIMMERS * * *Final Report* * * DATE OF EXAM: Feb 08 2024 5:05PM WOX [id number] - XR THORACIC 3V AP/LAT/SWIMMERS / PROCEDURE REASON: multiple diagnoses * * * * Physician Interpretation * * * * EXAMINATION: XR THORACIC 3V AP/LAT/SWIMMERS, XR LUMBAR 3V AP/LAT/L5-S1 CLINICAL HISTORY: Back pain Technique: XR THORACIC 3V AP/LAT/SWIMMERS, XR LUMBAR 3V AP/LAT/L5-S1 -- NOT APPLICABLE with 3 views on 3 images Comparison: None RESULT: Counting reference: Lumbosacral junction. For the purposes of this report, L5-S1 is considered the last lumbar type disc space and L4-5 is considered the level of the iliac crests. No acute fracture or malalignment. Multilevel vertebral body osteophytes. IMPRESSION: No acute fracture or malalignment Justice Court Judge: [facility] Transcribe Date/Time: Feb 08 2024 5:24P Dictated by : JAMMIE HOBBS MD This examination was interpreted and the report reviewed and electronically signed by: JAMMIE HOBBS MD on Feb 08 2024 5:28PM EST [id number] Normal [facility] XR Thoracic spine AP and Lat eral and Swimmerson 02-08-2024 * * *Final Report* * * DATE OF EXAM: Feb 08 2024 5:05PM WOX [id number] - XR THORACIC 3V AP/LAT/SWIMMERS / PROCEDURE REASON: multiple diagnoses * * * * Physician Interpretation * * * * EXAMINATION: XR THORACIC 3V AP/LAT/SWIMMERS, XR LUMBAR 3V AP/LAT/L5-S1 CLINICAL HISTORY: Back pain Technique: XR THORACIC 3V AP/LAT/SWIMMERS, XR LUMBAR 3V AP/LAT/L5-S1 -- NOT APPLICABLE with 3 views on 3 images Comparison: None RESULT: Counting reference: Lumbosacral junction. For the purposes of this report, L5-S1 is considered the last lumbar type disc space and L4-5 is considered the level of the iliac crests. No acute fracture or malalignment. Multilevel vertebral body osteophytes. DIVISION OF RADIOLOGY Provider, [facility] - 02/08/2024 * * *Final Report* * * DATE OF EXAM: Feb 08 2024 5:05PM WOX [id number] - XR THORACIC 3V AP/LAT/SWIMMERS / PROCEDURE REASON: multiple diagnoses * * * * Physician Interpretation * * * * EXAMINATION: XR THORACIC 3V AP/LAT/SWIMMERS, XR LUMBAR 3V AP/LAT/L5-S1 CLINICAL HISTORY: Back pain Technique: XR THORACIC 3V AP/LAT/SWIMMERS, XR LUMBAR 3V AP/LAT/L5-S1 -- NOT APPLICABLE with 3 views on 3 images Comparison: None RESULT: Counting reference: Lumbosacral junction. For the purposes of this report, L5-S1 is considered the last lumbar type disc space and L4-5 is considered the level of the iliac crests. No acute fracture or malalignment. Multilevel vertebral body osteophytes. IMPRESSION IMPRESSION: No acute fracture or malalignment Justice Court Judge: [facility] Transcribe Date/Time: Feb 08 2024 5:24P Dictated by : JAMMIE HOBBS MD This examination was interpreted and the report reviewed and electronically signed by: JAMMIE HOBBS MD on Feb 08 2024 5:28PM [facility] Emergency Department Summary on 02-05-2024 Emergency Department Summary [facility] Medical Records Department [address] [place] [address] Emergency Department Summary 02/05/24 MR#: [id number] Acct: [id number] Name: WANDA CAAL Rep #: [id number] : 1980 44 From: Jasen Ortiz MD PCP: Dr. Hilton Doty, DO Status:DEP ER Location: ED HPI History of Present Illness Chief Complaint: Head Injury Narrative Narrative: 44-year-old female was outside trimming trees on her kitchen stepstool approximately 4 feet up when the ladder started to close and she fell backwards striking her head on the ground. She states after hitting her head she then bounced onto her right side. No LOC. She was able to get up and is ambulatory. She complains of mild headache, nausea, and soreness on her right side. No blood thinners. [facility] Medical History Anxiety Arthritis Former smoker History of edema History of ureteral stone Kidney stones Rheumatoid arthritis Wears dentures Wears glasses Home Medications ???Medication ???Instructions ???Recorded ???Last Taken ???Type naproxen 500 mg tablet 500 mg PO BID PRN PRN Pain Score 11/25/19 Unknown Rx -05/12 #20 tabs chlorthalidone 25 mg tablet 25 mg PO DAILY 03/12/20 09/28/23 History lorazepam 0.5 mg tablet 0.5 mg PO DAILY PRN PRN Anxiety 03/12/20 Unknown History bupropion HCl 75 mg tablet 75 mg PO DIRECTED 09/24/23 09/28/23 19:30 History cholecalciferol (vitamin D3) 125 125 mcg PO DAILY 09/24/23 09/28/23 History mcg (5,000 unit) capsule phentermine 11.25 mg-topiramate ER 1 cap PO DAILY 09/24/23 09/28/23 12:40 History 69 mg capsule,[id number] hr mphas (Qsymia) hydroxychloroquine 200 mg tablet 300 mg PO DAILY 09/25/23 09/28/23 19:30 History (Plaquenil) trazodone 50 mg tablet 50 mg PO QHS 09/25/23 09/27/23 History naproxen 500 mg tablet (Naprosyn) 500 mg PO BID PRN pain #20 tabs 02/05/24 Unknown Rx ondansetron 4 mg disintegrating 4 mg PO Q8H PRN PRN Nausea #10 tabs 02/05/24 Unknown Rx tablet Allergy/AdvReac Type Severity Reaction Status Date / Time Penicillins (PCN) Allergy Unknown Verified 02/05/24 11:10 Surgical History History of laparoscopic cholecystectomy Hx of cystoscopy Hx of dilation and curettage Hx of tooth extraction Hx of varicose vein stripping S/P tubal ligation Status post hysteroscopic ablation of endometrium ( 09/29/23) Social History current occupational status: employed 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 Respiratory: Negative for shortness of breath. GI: Positive for nausea. No vomiting. Neuro: Positive for headache. Skin: Negative for wound. EXAM Physical Exam Narrative Exam Narrative: CONST: Patient sitting in no acute distress. EYES: Normal inspection. PERRL, EOMI. ENT: Head normocephalic atraumatic, no raccoon eyes or mei sign, no hemotympanum, no nasal septal hematoma, no CSF otorrhea or rhinorrhea. NECK: Normal inspection. No midline spinal tenderness, no step off or crepitus. RESP: No respiratory distress, CTAB. Chest wall nontender. CVS: Regular rate and rhythm, no murmur, no gallop. ABD: Soft and nontender, no guarding or rebound, nondistended. Back: Normal inspection, no midline tenderness. SKIN: Color normal, no rash, warm, dry, intact. EXTREMITIES: Normal appearance, full range of motion upper and lower extremities, tender palpation over the right shoulder with no deformity or crepitus. 2+ radial and DP pulses. NEURO: Alert and answering questions appropriately. PSYCH: Normal affect. Const Vital Signs: 02/05/24 11:02/05/24 11:30 02/05/24 12:22 Temperature 97.1 F L 97.6 F L Temperature Source Temporal Pulse Rate 65 58 L Respiratory Rate 14 16 Respiratory Effort Normal Respiratory Depth Normal Respiratory Pattern Normal Blood Pressure 143/73 H 112/73 Blood Pressure Mean 96 86 Pulse Ox 98 99 Oxygen Delivery Method Room Air Room Air Physical Exam Const Vital Signs: 02/05/24 11:09 02/05/24 11:30 02/05/24 12:22 Temperature 97.1 F L 97.6 F L Temperature Source Temporal Pulse Rate 65 58 L Respiratory Rate 14 16 Respiratory Effort Normal Respiratory Depth Normal Respiratory Pattern Normal Blood Pressure 143/73 H 112/73 Blood Pressure Mean 96 86 Pulse Ox 98 99 Oxygen Delivery Method Room Air Room Air MDM MDM MDM Narrative Medical decision making narrative: Test considered but not (more content not included)... Normal [facility] Shoulder min 2 Viewson 02-04 Shoulder min 2 Views [facility] Imaging Services [address] [place] [address] Shoulder min 2 Views MR#: [id number] Acct: [id number] Name: WANDA CAAL Rep #: [id number] : 1980 F 44 From: Skip Quintero PCP: Dr. Hilton Doty DO Status: REG ER Study: Shoulder min 2 Views Date of Exam: 02/05/24 Exam# [id number] Ordering Dr: Perla Flower [id number] INDICATION: pain EXAMINATION/TECHNIQUE : X-RAY - RIGHT XR Shoulder Min 2 Views 4 VIEWS COMPARISON: No relevant prior comparison study available __ FINDINGS: SOFT TISSUES: Soft tissue calcification lateral to the humerus consistent with calcific tendinitis. No radiopaque foreign body. BONES/JOINTS: No acute fracture or subluxation.. Normal alignment. Preservation of the joint space.. No sclerotic or destructive changes observed. RAD/Shoulder min 2 Views IMPRESSION: Calcific tendinitis of the right shoulder. Electronically Signed: Skip Molina MD at 12:07 EDT , CC: Dr. Hilton Doty DO; JAYE Villareal Justice Court Judge: Signed Normal [facility] Internal Medicine Office Vis pascual 01-21-2024 Internal Medicine Office Visit [facility] [address] [place] [address] [place] [address] OFFICE VISIT Date of Service: 09/26/23 MR#: [id number] Acct: [id number] Name: WANDA CAAL Rep #: [id number] : 1980 Provider: BUSTER segundo Age/Sex: 43/F Location: [facility] Status: Signed Intake Vital Signs 09/24/23 08:34 Height 5 ft 7 in Intake Visit Reasons: EMPLOYEE COVID TEST Chief Complaint: fatigue, KING, fever, congestion ear pain Allergies Penicillins (PCN) Allergy (Verified 02/05/24 11:10) Unknown [facility] Medical History Anxiety Arthritis Former smoker History of edema History of ureteral stone Kidney stones Rheumatoid arthritis Wears dentures Wears glasses Surgical History History of laparoscopic cholecystectomy Hx of cystoscopy Hx of dilation and curettage Hx of tooth extraction Hx of varicose vein stripping S/P tubal ligation Status post hysteroscopic ablation of endometrium ( 09/29/23) Social History current occupational status: employed 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 Smoking Status: Former smoker alcohol intake: never substance use type: does not use seatbelt use: always do you feel safe at home: Yes HPI HPI Chief Complaint: fatigue, KING, fever, congestion ear pain Details: WANDA CAAL, is a 43 F who presents to the office today for Results POC CEPH COV,FluAB,RSV PCR CEPHEID COVID PCR Not DETECTED Last Edit by Candace Aguilar on 09/26/23 13:56 CEPHEID FLU AB PCR ONLY FLU A DETECTED Last Edit by Candace Aguilar on 09/26/23 13:56 CEPHEID RSV PCR NOT DETECTED Last Edit by Candace Aguilar on 09/26/23 13:56 Coding Level of Care Code No Charge CPT Codes Covid - Covid Test (Bill Insurance): Yes ([id number]) Assessment and Plan Assessment and Plan Orders: Orders POC Cepheid Covid, FluAB, RSV 09/26/23 [facility] Billing Sheet Covid Covid Test (Bill Insurance): Yes 03/17/24 1205 Date Saskia GOINS Cosigner Signature: Date (if applicable) CC: Farrah Wilson [facility] 01-20-2024 [facility] Office Visit (FAMWS ) WANDA CAAL ([id number]) 1980 F Date Time Provider Department 01/20/24 6:40 PM HILTON DOTY [facility] During your visit today, we recorded the following information about you: Temperature Pulse Respiration Blood pressure 97 degrees 60/minute 16/minute 100/60 Weight 87.1 kg Hilton Doty DO 01/20/2024 7:37 PM Signed Magnesium citrate 400-500 mg in the evening Hilton Doty DO 01/25/2024 7:51 AM Signed CC: Wanda Martínezt is a 43 year old female who presents to the office for follow up HPI: Inflammatory polyarthropathy, no signs of retinal concerns for her plaquenil monitoring. states had dilated eye exam by Dr. Genao in May 2023 last, has this exam yearly. Doesn't currently have a Flat Hammerer since she needs to establish with a new provider. Needing rx refilled for her plaquenil Does feel that her mirena and perimenopause hormonal changes are bothering her off and on. She feels that her complains about her libido changes and she has some days that she is still irritable/easily upset and is emotional. Has support from her family. 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 Knows need for further weight loss. Is taking the qsymia and tolerating rx well. Would like to continue medication. Trying to continue healthy diet choices and exercise as well. she recently was able to see Grease Cup Filler at [facility] with benefit Mood, feels she is overall managing with the wellbutrin medication and prn use of Ativan. Needing rx refilled. No SI or HI. Trying to do things that give her shahbaz PAST MEDICAL HISTORY Diagnosis Date MAXIM positive [...] Cancer Paternal Aunt bone Current Outpatient prescriptions: LORazepam (ATIVAN) 0.5 mg Take 1 tablet by mouth once daily as needed (anxiety attack) for up to 30 days. phentermine-topiramat e ER (QSYMIA) 11.25-69 mg 24 Hr Capsule Take 1 capsule by mouth once daily for 90 days. BMI 31.32 traZODone (DESYREL) 50 mg tablet Take 1-2 tablets by mouth daily at bedtime. hydrOXYchloroQUINE (PLAQUENIL) 200 mg tablet Take 1 tablet by mouth once daily. chlorthalidone (HYGROTON) 25 mg tablet Take 1 tablet by mouth once daily. As needed for edema metroNIDAZOLE 0.75 % cream Apply to affected area two times a day. hydrocortisone 2.5 % cream Apply 1 application to affected area two times a day as needed (hemorrhoids). Location: hemorrhoids naproxen (NAPROSYN) 500 mg tablet Take 1 tablet by mouth two times a day as needed (for pain/inflammation). Take with food. buPROPion (WELLBUTRIN) 75 mg tablet Take 2 tablets in the AM and 1 tablet in the afternoon furosemide (LASIX) 20 mg tablet Take 0.5-1 tablets by mouth daily with breakfast. levonorgestrel (MIRENA) 20 mcg/24 hours (5 yrs) 52 mg IUD 1 Each by INTRAUTERINE route as directed. Cholecalciferol, Vitamin D3, 2,000 unit cap Take 2 tablets by mouth once daily. Allergies: ALLERGIES Allergen Reactions Penicillins Unknown ROS: See HPI PE: 01/20/241910 BP: 100/60 Pulse: 60 Resp: 16 Temp: 36.1 ?C (97 ?F) TempSrc: Right Tympanic Weight: 87.1 kg (192 lb) Gen: AANDO, NAD, non-toxic appearing, Pleasant, cooperative HEENT: NT/AC, PERRLA, EOMs intact b/l, nares clear and patent b/l, pharynx without erythema, exudate or lesions. Uvula midline. MMM, EACs without erythema or debris. TMs pearly [...] 4 extremities Neuro: CN II-XII intact b/l, strength 5/5 b/l UE and LE, DTRs 2/4 UE and LE, sensation intact. No edema, normal pulses ASSESSMENT/PLAN: 1. Dyslipidemia - ICD9: 272.4, ICD10: E78.5 (primary diagnosis) - Control undetermined, due for labs - Continue (more content not included)... Normal [facility] Laboratory - Microbiology an d Antimicrobial susceptibilityon 11-20-2023 SARS-CoV-2 (COVID-19) RNA FERNANDO+probe Ql (Unsp spec) Not detected Alyson [facility] No Panel Informationon 11-19 POC Nasal Swab Influenza A,B Not detected [facility] POC Nasal Swab RSV Not detected [facility] Basophil percentageOrdered B y: Priscilla Emilia on 09-29-2023 Hemoglobin (Bld) [Mass/Vol] 12.6 g/dL 12.0-15.0 [facility] WBC (Bld) [#/Vol] 3.3 10*3/uL 4.4-11.0 [facility] Determination of erythrocyte mean corpuscular volume (MCV)Ordered By: Priscilla Nieto on 09-29-2023 MCV (RBC) [Entitic vol] 89.7 fL 81-99 [facility] Erythrocyte distribution wid th ratioOrdered By: Priscillamerlin Nieto on 09-29-2023 Erythrocyte distribution width (RBC) [Ratio] 12.8 % 11.6-14.6 [facility] Erythrocyte distribution wid th standard deviationOrdered By: Priscillamerlin Nieto on 09-29-2023 Erythrocyte distribution width (RBC) [Entitic vol] 41.9 fL 35.1-43.9 [facility] Hematocrit Auto (Bld) [Volum e fraction]Ordered By: Priscilla Nieto on 09-29-2023 Hematocrit (Bld) [Volume fraction] 38.5 % 37-47 [facility] Laboratory - Chemistry and C hemistry - challengeOrdered By: Priscilla Nieto on 09-29-2023 HCG ( test) Ql (U) Negative [facility] Comment on above: Very dilute urine sp ecimens, as indicated by a low specificgravity, may not contain compliance representative levels of hCG. If is still suspected, a first morning urinespecimen should be collected 48 hours later and tested. Laboratory - Hematology and Cell countsOrdered By: Priscilla Nieto on 09-29-2023 MCH (RBC) [Entitic mass] 29.4 pg 27.0-32.0 [facility] MCHC (RBC) [Mass/Vol] 32.7 g/dL 32-36 [facility] Platelet mean volume (Bld) [Entitic vol] 10.4 fL 6.2-12.0 [facility] Platelets (Bld) [#/Vol] 131 10*3/uL 150-450 [facility] RBC Auto (Bld) [#/Vol]Ordere d By: Priscilla Emilia on 09-29-2023 RBC (Bld) [#/Vol] 4.29 10*6/uL 4.2-5.4 [facility] Laboratory - Microbiology an d Antimicrobial susceptibilityon 09-26-2023 SARS-CoV-2 (COVID-19) RNA FERNANDO+probe Ql (Unsp spec) Not detected [facility] No Panel Informationon 09-26 POC Nasal Swab Influenza A,B Detected [facility] POC Nasal Swab RSV Not detected [facility] Absolute lymphocyte countOrd ered By: LEO MÉNDEZ on 09-02-2023 Lymphocytes Auto (Unsp spec) [#/Vol] 2.69 10*3/uL 0.83-4.51 [facility] Automated lymphocyte count a s percentage of total leukocytesOrdered By: LEO MÉNDEZ on 09-02-2023 Lymphocytes/100 WBC Auto (Unsp spec) 31.1 % 19-41 [facility] Basophil percentageOrdered B y: LEO MÉNDEZ on 09-02-2023 Basophils/100 WBC (Bld) 0.6 % 0-1 [facility] Eosinophils/100 WBC (Bld) 1.2 % 0-5 [facility] Hemoglobin (Bld) [Mass/Vol] 14.7 g/dL 12.0-15.0 [facility] Monocytes/100 WBC (Bld) 8.9 % 0-10 [facility] Neutrophils (Bld) [#/Vol] 5.0 10*3/uL 2.0-7.7 [facility] Neutrophils/100 WBC (Bld) 58.0 % 47-70 [facility] WBC (Bld) [#/Vol] 8.7 10*3/uL 4.4-11.0 [facility] Determination of erythrocyte mean corpuscular volume (MCV)Ordered By: LEO MÉNDEZ on 09-02-2023 MCV (RBC) [Entitic vol] 91.0 fL 81-99 [facility] Erythrocyte distribution wid th ratioOrdered By: LEO MÉNDEZ on 09-02-2023 Erythrocyte distribution width (RBC) [Ratio] 13.1 % 11.6-14.6 [facility] Erythrocyte distribution wid th standard deviationOrdered By: LEO MÉNDEZ on 09-02-2023 Erythrocyte distribution width (RBC) [Entitic vol] 43.1 fL 35.1-43.9 [facility] Hematocrit Auto (Bld) [Volum e fraction]Ordered By: LEO MÉNDEZ on 09-02-2023 Hematocrit (Bld) [Volume fraction] 44.5 % 37-47 [facility] Immature granulocytes/100 WB C Auto (Bld)Ordered By: LEO MÉNDEZ on 09-02-2023 Immature granulocytes/100 WBC (Bld) 0.200 % 0.0-0.9 [facility] Comment on above: IG% - Immature Granu locytes (promyelocytes, myelocytes and metamyelocytes) > 1% indicates that a LEFT SHIFT is Present. Laboratory - Chemistry and C hemistry - challengeOrdered By: LEO MÉNDEZ on 09-02-2023 ALT [Catalytic activity/Vol] 28 U/L 13-56 [facility] Laboratory - Hematology and Cell countsOrdered By: LEO MÉNDEZ on 09-02-2023 MCH (RBC) [Entitic mass] 30.1 pg 27.0-32.0 [facility] MCHC (RBC) [Mass/Vol] 33.0 g/dL 32-36 [facility] Nucleated RBC/100 WBC (Bld) [Ratio] 0 % 0-5 [facility] Platelets (Bld) [#/Vol] 301 10*3/uL 150-450 [facility] No Panel InformationOrdered By: LEO MÉNDEZ on 09-02-2023 Estimated GFR (MDRD) Amer 87 mL/min >60 [facility] Comment on above: GFR Calc Estimated GFR (MDRD) Non-Af Amer 72 mL/min >60 [facility] Comment on above: Non- GFR Calc Platelet mean volume Lai-Ec ker (Bld) [Entitic vol]Ordered By: LEO MÉNDEZ on 09-02-2023 Platelet mean volume (Bld) [Entitic vol] 9.4 fL 6.2-12.0 [facility] RBC Auto (Bld) [#/Vol]Ordere d By: LEO MÉNDEZ on 09-02-2023 RBC (Bld) [#/Vol] 4.89 10*6/uL 4.2-5.4 [facility] Serum or plasma creatinine m easurement (mass/volume)Ordered By: LEO MÉNDEZ on 09-02-2023 Creatinine [Mass/Vol] 0.90 mg/dL 0.55-1.02 [facility] Comment on above: The validity of the calculated GFR & GFRAA in patients over 70 years has not been determined. Clinical correlation is essential. Thin prep Papanicolaou smear with manual screeningOrdered By: LEO MÉNDEZ on 09-02-2023 Thin prep Papanicolaou smear with manual screening 12 U/L 15-37 [facility] Cervical or vaginal specimen microscopic examination by liquid based cytology (reported as document)Ordered By: Nilda Loya on 08-12-2023 Cytology report Cyto stain.thin prep Doc (Cvx/Vag) Comment . [facility] Comment on above: Criteria met, see HP V Genotype results. Cervical or vagninal specime n microscopic examination by cytology stain (reported asOrdered By: Nilda Loya on 08-12-2023 Cytology report Cyto stain Doc (Cvx/Vag) Comment . [facility] Comment on above: The Pap smear is a s creening test designed to aid in thedetection of premalignant and malignant conditions of theuterine cervix. It is not a diagnostic procedure andshould not be used as the sole means of detecting cervicalcancer. Both false-positive and false-negative reports dooccur. Cervical specimen Aptima HPV assayOrdered By: Nilda Loya on 08-12-2023 HPV E6+E7 mRNA FERNANDO+probe Ql (Cvx) Negative Negative [facility] Comment on above: Performed at: [facility] - [facility] [address] [id number] Director: Viktoriya Vargas MD, Phone: [phone] at: =G - [facility] [address] [id number] Director: Viktoriya Vargas MD, Phone: [phone] Cervical specimen human cuong lloma virus (HPV) type 16 DNA detection by probe with sigOrdered By: Nilda Loya on 08-12-2023 HPV 16 DNA Probe+sig amp Ql (Cvx) Positive Negative [facility] Detection in cervical specim en of any of human papilloma virus (HPV) 16, 18, 31, 33,Ordered By: Nilda Loya on 08-12-2023 HPV 16+18+31+33+35+39+45+51 +52+56+58+59+66+68 DNA Probe+sig amp Ql (Cvx) Positive Negative [facility] Comment on above: This nucleic acid am plification test detects fourteen high-risk HPV types (16,18,31,33,35,39,45,51,52,56,58,59,66,68)without differentiation. Laboratory - CytologyOrdered By: Nilda Loya on 08-12-2023 Behavioral Science Chair Cyto stain Nom (Cvx/Vag) [ID] Comment . [facility] Comment on above: Delphine Sauer, Cyto technologist (ASCP) Laboratory - Miscellaneous t estsOrdered By: Nilda Loya on 08-12-2023 Service comment (Unsp spec) [Interp] . . [facility] Thin prep Papanicolaou smear with manual screeningOrdered By: Nilda Loya on 08-12-2023 Thin prep Papanicolaou smear with manual screening Comment . [facility] Comment on above: NEGATIVE FOR INTRAEP ITHELIAL LESION OR MALIGNANCY. This liquid based Th inPrep(R) pap test was screened withthe use of an image guided system. Serum hepatitis B virus surf deejay antibody IgG detectionOrdered By: HEALTH ASSESSMENT on 05-12-2023 HBV surface IgG Ql (S) Non-Reactive [facility] Comment on above: Non Reactive: Incons istent with immunity less than <10 mIU/mL Reactive: Consistent with immunity greater than or equal to 10 mIU/mL No Panel InformationOrdered By: 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 on 02-25-2023 Hepatitis B Surface Antibody Non-Reactive [facility] Comment on above: Non Reactive: Incons istent with immunity less than <10 mIU/mL Reactive: Consistent with immunity greater than or equal to 10 mIU/mL Rubella IgG Antibody Reactive Nonreactive [facility] Comment on above: Antibody Results Int erpretation of Immune Status Non Reactive Presumed Non-Immune Equivocal Equivocal Reactive Presumed Immune Serum Varicella zoster virus IgG antibody assay by immunoassay (units/volume)Ordered By: [employer] on 02-25-2023 VZV IgG IA Qn (S) 1866 index Immune >165 [facility] Comment on above: Negative <135 Equivo chivo 135 - 165 Positive >165A positive result generally indicates exposure to thepathogen or administration of specific immunoglobulins,but it is not indication of active infection or stageof disease. Serum measles virus IgG anti body assay (units/volume)Ordered By: [employer]Nex[employer] on 02-25-2023 MeV IgG Qn (S) > 300.0 AU/mL Immune >16.4 [facility] Comment on above: Negative <13.5 Equiv ocal 13.5 - 16.4 Positive >16.4Presence of antibodies to Rubeola is presumptive evidenceof immunity except when acute infection is suspected.Performed at: [facility] [id number] Director: Gabe Fry PhD, Phone: [phone] Serum mumps virus IgG antibo dy assay (units/volume)Ordered By: [employer] on 02-25-2023 MuV IgG Qn (S) 192.0 AU/mL Immune >10.9 [facility] Comment on above: Negative <9.0 Equivo chivo 9.0 - 10.9 Positive >10.9A positive result generally indicates past exposure toMumps virus or previous vaccination. CBC W Auto Differential pane l (Bld)on 08-28-2022 Basophils (Bld) [#/Vol] 0.04 10*3/uL <0.11 k/uL [facility] Basophils/100 WBC (Bld) 0.7 % [facility] Differential cell count method Nom (Bld) Auto [facility] Eosinophils (Bld) [#/Vol] 0.08 10*3/uL <0.46 k/uL [facility] Eosinophils/100 WBC (Bld) 1.4 % [facility] Erythrocyte distribution width (RBC) [Ratio] 13.0 % 11.5 - 15.0 % [facility] Hematocrit (Bld) [Volume fraction] 42.3 % 36.0 - 46.0 % [facility] Hemoglobin (Bld) [Mass/Vol] 14.2 g/dL 11.5 - 15.5 g/dL [facility] Immature granulocytes (Bld) [#/Vol] <0.10 k/uL [facility] Immature granulocytes/100 WBC (Bld) 0.0 % [facility] Lymphocytes (Bld) [#/Vol] 1.79 10*3/uL 1.00 - 4.00 k/uL [facility] Lymphocytes/100 WBC (Bld) 31.7 % [facility] MCH (RBC) [Entitic mass] 30.4 pg 26.0 - 34.0 pg [facility] MCHC (RBC) [Mass/Vol] 33.6 g/dL 30.5 - 36.0 g/dL [facility] MCV (RBC) [Entitic vol] 90.6 fL 80.0 - 100.0 fL [facility] Monocytes (Bld) [#/Vol] 0.43 10*3/uL <0.87 k/uL [facility] Monocytes/100 WBC (Bld) 7.6 % [facility] Neutrophils (Bld) [#/Vol] 3.31 10*3/uL 1.45 - 7.50 k/uL [facility] Neutrophils/100 WBC (Bld) 58.6 % [facility] Nucleated RBC (Bld) [#/Vol] <0.01 k/uL [facility] Nucleated RBC/100 WBC (Bld) [Ratio] 0.0 /100 WBC [facility] Platelet mean volume (Bld) [Entitic vol] 9.8 fL 9.0 - 12.7 fL [facility] Platelets (Bld) [#/Vol] 250 10*3/uL 150 - 400 k/uL [facility] RBC (Bld) [#/Vol] 4.67 10*6/uL 3.90 - 5.2 0 m/uL [facility] WBC (Bld) [#/Vol] 5.65 10*3/uL 3.70 - 11. 00 k/uL [facility] ESR Westergren method (Bld) [Velocity]on 08-28-2022 ESR (Bld) [Velocity] 12 mm/h 0 - 20 mm/hr [facility] Vital Signs Date Time Vital Sign Value Performing Clinician Facility 12-19-2024 15:59-0400 Body height 167.[address] iHlton Doty DO Work Phone: [phone])[phone] [place] [address] 12-19-2024 15:59-0400 Body mass index (BMI) [Ratio] 30.7 kg/m2 Dr. Hilton Doty DO Work Phone: 8(262)[phone] [place] [address] 12-19-2024 15:59-0400 Body temperature 98.7 [degF] Dr. Hilton Doty DO Work Phone: 6(980)[phone] [place] [address] 12-19-2024 15:59-0400 Body weight 86.[address] Hilton Doty DO Work Phone: 9(561)[phone] [place] [address] 12-19-2024 15:59-0400 Diastolic blood pressure 77 mm[Hg] Dr. Hilton Doty DO Work Phone: 7(746)[phone] [place] [address] 12-19-2024 15:59-0400 Heart rate 63 /min Dr. Hilton Doty DO Work Phone: 9(387)[phone] [place] [address] 12-19-2024 15:59-0400 Respiratory rate 14 /min Dr. Hilton Doty DO Work Phone: 3(716)[phone] [place] [address] 12-19-2024 15:59-0400 SaO2% (BldA) [Mass fraction] 100 % Dr. Hilton Doty DO Work Phone: 7(472)[phone] [place] [address] 12-19-2024 15:59-0400 Systolic blood pressure 120 mm[Hg] Dr. Hilton Doty DO Work Phone: 4([phone])[phone] [place] [address] 12-12-2024 09:31-0400 Body height 167.[address] Hilton Doty DO Work Phone: 0(856)626-860520 [place] [address] 12-12-2024 09:30-0400 Body mass index (BMI) [Ratio] 30.5 kg/m2 Dr. Hilton Doty DO Work Phone: 3(888)[phone] [place] [address] 12-12-2024 09:30-0400 Body weight 85.[address] Hilton Doty DO Work Phone: 3(051)224-866420 [place] [address] 12-12-2024 09:30-0400 Diastolic blood pressure 80 mm[Hg] Dr. Hilton Doty DO Work Phone: [facility] 12-12-2024 09:30-0400 Systolic blood pressure 125 mm[Hg] Dr. Hilton Doty DO Work Phone: [facility] 11-16-2024 18:51-0400 Body mass index (BMI) [Ratio] 29.82 kg/m2 Hilton Doty DO Work Phone: [facility] 11-16-2024 18:51-0400 Body weight 86.36 kg Hilton Doty DO Work Phone: [facility] 11-16-2024 18:51-0400 Diastolic blood pressure 89 mm[Hg] Hilton Vásquezon DO Work Phone: [facility] 11-16-2024 18:51-0400 Heart rate 60 /min Hilton Villatororison DO Work Phone: 2([phone])[phone] [place] [address] 11-16-2024 18:51-0400 Respiratory rate 12 /min Hilton Doty DO Work Phone: [facility] 11-16-2024 18:51-0400 Systolic blood pressure 127 mm[Hg] Hilton Doty DO Work Phone: [facility] 11-02-2024 11:44-0400 Body temperature 97.2 [degF] Dr. Hilton Doty DO Work Phone: [facility] 11-02-2024 11:44-0400 Body weight 87.[address] Hilton Doty DO Work Phone: [facility] 11-02-2024 11:44-0400 Diastolic blood pressure 75 mm[Hg] Dr. Hilton Doty DO Work Phone: [facility] 11-02-2024 11:44-0400 Heart rate 70 /min Dr. Hilton Doty DO Work Phone: [facility] 11-02-2024 11:44-0400 Respiratory rate 16 /min Dr. Hilton Doty DO Work Phone: [facility] 11-02-2024 11:44-0400 SaO2% (BldA) [Mass fraction] 100 % Dr. Hilton Doty DO Work Phone: [facility] 11-02-2024 11:44-0400 Systolic blood pressure 135 mm[Hg] Dr. Hilton Doty DO Work Phone: [facility] 10-26-2024 18:03-0400 Body mass index (BMI) [Ratio] 29.76 kg/m2 Hilton Doty DO Work Phone: [facility] 10-26-2024 18:03-0400 Body temperature 97.39 [degF] Hilton Doty DO Work Phone: [facility] 10-26-2024 18:03-0400 Body weight 86.18 kg Hilton Doty DO Work Phone: [facility] 10-26-2024 18:03-0400 Diastolic blood pressure 80 mm[Hg] Hilton Doty DO Work Phone: [facility] 10-26-2024 18:03-0400 Heart rate 76 /min Hilton Doty DO Work Phone: [facility] 10-26-2024 18:03-0400 Respiratory rate 16 /min Hilton Doty DO Work Phone: [facility] 10-26-2024 18:03-0400 Systolic blood pressure 120 mm[Hg] Hilton Doty DO Work Phone: [facility] 10-14-2024 13:23-0400 Body mass index (BMI) [Ratio] 29.35 kg/m2 Rajinder Hinton APRN.HOME CARE ADMINISTRATOR Work Phone: [facility] 10-14-2024 13:23-0400 Body weight 85 kg Rajinder Hinton APRN.HOME CARE ADMINISTRATOR Work Phone: [facility] 10-14-2024 13:23-0400 Diastolic blood pressure 71 mm[Hg] Rajinder Hinton APRN.HOME CARE ADMINISTRATOR Work Phone: [facility] 10-14-2024 13:23-0400 Heart rate 81 /min Rajinder Hinton APRN.HOME CARE ADMINISTRATOR Work Phone: [facility] 10-14-2024 13:23-0400 SaO2% (BldA) [Mass fraction] 100 % Rajinder Hinton APRN.HOME CARE ADMINISTRATOR Work Phone: [facility] 10-14-2024 13:23-0400 Systolic blood pressure 102 mm[Hg] Rajinder Hinton APRN.HOME CARE ADMINISTRATOR Work Phone: [facility] 10-13-2024 22:35-0400 Body temperature 97.8 [degF] Dr. Hilton Doty DO Work Phone: [facility] 10-13-2024 22:35-0400 Diastolic blood pressure 68 mm[Hg] Dr. Hilton Doty DO Work Phone: [facility] 10-13-2024 22:35-0400 Heart rate 71 /min Dr. Hilton Doty DO Work Phone: [facility] 10-13-2024 22:35-0400 Respiratory rate 16 /min Dr. Hilton Doty DO Work Phone: [facility] 10-13-2024 22:35-0400 SaO2% (BldA) [Mass fraction] 99 % Dr. Hilton Doty DO Work Phone: [facility] 10-13-2024 22:35-0400 Systolic blood pressure 113 mm[Hg] Dr. Hilton Doty DO Work Phone: [facility] 10-13-2024 17:15-0400 Body height 167.[address] Hilton Doty DO Work Phone: [facility] 10-13-2024 17:15-0400 Body mass index (BMI) [Ratio] 30.2 kg/m2 Dr. Hilton Doty DO Work Phone: [facility] 10-13-2024 17:15-0400 Body weight 84.[address] Hilton Doty DO Work Phone: [facility] 09-08-2024 11:19-0500 Body temperature 98 [degF] Dr. Hilton Doty DO Work Phone: [facility] 09-08-2024 11:19-0500 Body weight 86.[address] Hilton Doty DO Work Phone: [facility] 09-08-2024 11:19-0500 Diastolic blood pressure 91 mm[Hg] Dr. Hilton Doty DO Work Phone: [facility] 09-08-2024 11:19-0500 Heart rate 71 /min Dr. Hilton Doty DO Work Phone: 9(256)[phone] [place] [address] 09-08-2024 11:19-0500 Respiratory rate 16 /min Dr. Hilton Doty DO Work Phone: 0(397)838-391020 [place] [address] 09-08-2024 11:19-0500 SaO2% (BldA) [Mass fraction] 99 % Dr. Hilton Doty DO Work Phone: 2([phone])[phone] [place] [address] 09-08-2024 11:19-0500 Systolic blood pressure 136 mm[Hg] Dr. Hilton Doty DO Work Phone: 3(503)254-724020 [place] [address] 08-01-2024 10:12-0500 Body mass index (BMI) [Ratio] 30.85 kg/m2 Hilton Doty DO Work Phone: [facility] 08-01-2024 10:12-0500 Body temperature 97.59 [degF] Hilton Doty DO Work Phone: [facility] 08-01-2024 10:12-0500 Body weight 89.36 kg Hilton Doty DO Work Phone: [facility] 08-01-2024 10:12-0500 Diastolic blood pressure 70 mm[Hg] Hilton Doty DO Work Phone: [facility] 08-01-2024 10:12-0500 Heart rate 64 /min Hilton Doty DO Work Phone: [facility] 08-01-2024 10:12-0500 Respiratory rate 16 /min Hilton Doty DO Work Phone: [facility] 08-01-2024 10:12-0500 Systolic blood pressure 130 mm[Hg] Hilton Doty DO Work Phone: [facility] 04-25-2024 10:16-0400 Body mass index (BMI) [Ratio] 29.76 kg/m2 Hilton Doty DO Work Phone: [facility] 04-25-2024 10:16-0400 Body temperature 97 [degF] Hilton Doty DO Work Phone: [facility] 04-25-2024 10:16-0400 Body weight 86.18 kg Hilton Doty DO Work Phone: [facility] 04-25-2024 10:16-0400 Diastolic blood pressure 80 mm[Hg] Hilton Doty DO Work Phone: [facility] 04-25-2024 10:16-0400 Heart rate 64 /min Hilton Doty DO Work Phone: [facility] 04-25-2024 10:16-0400 Respiratory rate 12 /min Hilton Doty DO Work Phone: [facility] 04-25-2024 10:16-0400 Systolic blood pressure 120 mm[Hg] Hilton Doty DO Work Phone: [facility] 02-08-2024 15:59-0400 Body mass index (BMI) [Ratio] 31.01 kg/m2 Doris Suppan MERCHANDISE MARKER.WINDSHIELD REPAIR TECHNICIAN Work Phone: [facility] 02-08-2024 15:59-0400 Body weight 89.81 kg Doris Suppan MERCHANDISE MARKER.WINDSHIELD REPAIR TECHNICIAN Work Phone: [facility] 02-08-2024 15:59-0400 Diastolic blood pressure 64 mm[Hg] Doris Suppan MERCHANDISE MARKER.WINDSHIELD REPAIR TECHNICIAN Work Phone: [facility] 02-08-2024 15:59-0400 Heart rate 64 /min Doris Suppan MERCHANDISE MARKER.WINDSHIELD REPAIR TECHNICIAN Work Phone: [facility] 02-08-2024 15:59-0400 Respiratory rate 16 /min Doris Driscoll MERCHANDISE MARKER.WINDSHIELD REPAIR TECHNICIAN Work Phone: [facility] 02-08-2024 15:59-0400 SaO2% (BldA) [Mass fraction] 99 % Doris Suppashish MERCHANDISE MARKER.WINDSHIELD REPAIR TECHNICIAN Work Phone: [facility] 02-08-2024 15:59-0400 Systolic blood pressure 108 mm[Hg] Doris Suppashish MERCHANDISE MARKER.WINDSHIELD REPAIR TECHNICIAN Work Phone: [facility] 01-20-2024 19:11-0400 Body mass index (BMI) [Ratio] 30.07 kg/m2 Hilton Doty DO Work Phone: [facility] 01-20-2024 19:11-0400 Body temperature 97 [degF] Hilton Doty DO Work Phone: [facility] 01-20-2024 19:11-0400 Body weight 87.09 kg Hilton Doty DO Work Phone: [facility] 01-20-2024 19:11-0400 Diastolic blood pressure 60 mm[Hg] Hilton Doty DO Work Phone: [facility] 01-20-2024 19:11-0400 Heart rate 60 /min Hilton Doty DO Work Phone: [facility] 01-20-2024 19:11-0400 Respiratory rate 16 /min Hilton Doty DO Work Phone: [facility] 01-20-2024 19:11-0400 Systolic blood pressure 100 mm[Hg] Hilton Doty DO Work Phone: [facility] 11-25-2023 16:07-0400 Body height 170.[address] Hilton Doty Work Phone: [facility] 11-25-2023 16:07-0400 Body weight 87.[address] Hilton Doty Work Phone: [facility] 11-20-2023 14:46-0400 Body mass index (BMI) [Ratio] 31.3 kg/m2 Dr. Hilton Doty Work Phone: [facility] 11-20-2023 14:46-0400 Body temperature 97.3 [degF] Dr. Hilton Doty Work Phone: [facility] 11-20-2023 14:46-0400 Body weight 87.[address] Hilton Doty Work Phone: [facility] 11-20-2023 14:46-0400 Heart rate 77 /min Dr. Hilton Doty Work Phone: 3([phone] [place] [address] 11-20-2023 14:46-0400 Respiratory rate 16 /min Dr. Hilton Doty Work Phone: 5(153)[phone] [place] [address] 11-20-2023 14:46-0400 SaO2% (BldA) [Mass fraction] 99 % Dr. Hilton Doty Work Phone: [facility] 10-21-2023 18:33-0400 Body temperature 97 [degF] Hilton Doty DO Work Phone: [facility] 10-21-2023 18:33-0400 Body weight 89.81 kg Hilton Villatororison DO Work Phone: [facility] 10-21-2023 18:33-0400 Diastolic blood pressure 80 mm[Hg] Hilton Doty DO Work Phone: [facility] 10-21-2023 18:33-0400 Heart rate 80 /min Hilton Doty DO Work Phone: [facility] 10-21-2023 18:33-0400 Respiratory rate 16 /min Hilton Doty DO Work Phone: [facility] 10-21-2023 18:33-0400 Systolic blood pressure 120 mm[Hg] Hilton Doty DO Work Phone: [facility] 10-14-2023 10:16-0400 Body mass index (BMI) [Ratio] 31.1 kg/m2 Dr. Hilton Doty Work Phone: 8(670)623-535220 [place] [address] 10-14-2023 10:16-0400 Body weight 90.[address] Hilton Doty Work Phone: 2(328)[phone] [place] [address] 10-14-2023 10:16-0400 Diastolic blood pressure 77 mm[Hg] Dr. Hilton Doty Work Phone: 0(992)[phone] [place] [address] 10-14-2023 10:16-0400 Systolic blood pressure 121 mm[Hg] Dr. Hilton Doty Work Phone: 6(421)818-581620 [place] [address] 09-29-2023 12:03-0500 Body temperature 97.7 [degF] Dr. Hilton Doty Work Phone: 7(176)223-513620 [place] [address] 09-29-2023 12:03-0500 Diastolic blood pressure 72 mm[Hg] Dr. Hilton Doty Work Phone: 7(165)106-733320 [place] [address] 09-29-2023 12:03-0500 Heart rate 56 /min Dr. Hilton Doty Work Phone: 8(515)043-171120 [place] [address] 09-29-2023 12:03-0500 Respiratory rate 16 /min Dr. Hilton Doty Work Phone: 4(946)928-896620 [place] [address] 09-29-2023 12:03-0500 SaO2% (BldA) [Mass fraction] 97 % Dr. Hilton Doty Work Phone: 8(591)323-743720 [place] [address] 09-29-2023 12:03-0500 Systolic blood pressure 102 mm[Hg] Dr. Hilton Doty Work Phone: 6(144)954-306720 [place] [address] 09-29-2023 08:42-0500 Body mass index (BMI) [Ratio] 31.6 kg/m2 Dr. Hilton Doty Work Phone: 5(623)193-896020 [place] [address] 09-29-2023 08:42-0500 Body weight 88.[address] Hliton Doty Work Phone: 7(458)848-263020 [place] [address] 09-26-2023 13:20-0500 Body mass index (BMI) [Ratio] 30.2 kg/m2 Dr. Hilton Doty Work Phone: 4(800)234-765320 [place] [address] 09-26-2023 13:20-0500 Body temperature 98.2 [degF] Dr. Hilton Doty Work Phone: 4(404)522-097720 [place] [address] 09-26-2023 13:20-0500 Body weight 87.[address] Hilton Doty Work Phone: 2(317)240-083420 [place] [address] 09-26-2023 13:20-0500 Diastolic blood pressure 62 mm[Hg] Dr. Hilton Doty Work Phone: 0(506)284-729520 [place] [address] 09-26-2023 13:20-0500 Heart rate 82 /min Dr. Hilton Doty Work Phone: 3(658)162-824220 [place] [address] 09-26-2023 13:20-0500 Respiratory rate 16 /min Dr. Hilton Doty Work Phone: 2(458)633-348320 [place] [address] 09-26-2023 13:20-0500 SaO2% (BldA) [Mass fraction] 97 % Dr. Hilton Doty Work Phone: 5(445)416-445220 [place] [address] 09-26-2023 13:20-0500 Systolic blood pressure 100 mm[Hg] Dr. Hilton Doty Work Phone: 4(949)197-902520 [place] [address] 09-24-2023 08:32-0500 Body mass index (BMI) [Ratio] 30.5 kg/m2 Dr. Hilton Doty Work Phone: 5(605)860-201020 [place] [address] 09-24-2023 08:32-0500 Body weight 88.[address] Hilton Doty Work Phone: 7(704)069-031820 [place] [address] 09-24-2023 08:32-0500 Diastolic blood pressure 71 mm[Hg] Dr. Hilton Doty Work Phone: 5(569)097-206820 [place] [address] 09-24-2023 08:32-0500 Systolic blood pressure 114 mm[Hg] Dr. Hilton Doty Work Phone: 7(605)705-357020 [place] [address] 09-14-2023 13:33-0500 Body height 170.[address] Hilton Doty Work Phone: 8(977)904-293320 [place] [address] 09-14-2023 13:33-0500 Body mass index (BMI) [Ratio] 31.2 kg/m2 Dr. Hilton Doty Work Phone: 7(756)363-228920 [place] [address] 09-14-2023 13:33-0500 Body weight 90.[address] Hilton Doty Work Phone: 7(972)673-570720 [place] [address] 09-14-2023 13:33-0500 Diastolic blood pressure 85 mm[Hg] Dr. Hilton Doty Work Phone: 5(568)706-101920 [place] [address] 09-14-2023 13:33-0500 Systolic blood pressure 131 mm[Hg] Dr. Hilton Doty Work Phone: 6(479)895-827220 [place] [address] 08-12-2023 13:06-0500 Body height 170.[address] Hilton Doty Work Phone: 1(429)408-526620 [place] [address] 08-12-2023 13:06-0500 Body mass index (BMI) [Ratio] 31 kg/m2 Dr. Hilton Doty Work Phone: 7(185)665-664820 [place] [address] 08-12-2023 13:06-0500 Body weight 89.[address] Hilton Doty Work Phone: 5(010)994-624920 [place] [address] 08-12-2023 13:06-0500 Diastolic blood pressure 70 mm[Hg] Dr. Hilton Doty Work Phone: 4(672)632-652120 [place] [address] 08-12-2023 13:06-0500 Systolic blood pressure 130 mm[Hg] Dr. Hilton Doty Work Phone: 5(358)533-490220 [place] [address] 06-11-2023 11:53-0500 Body height 170.[address] Hilton Doty Work Phone: 8(963)663-425920 [place] [address] 06-11-2023 11:37-0500 Body mass index (BMI) [Ratio] 30.9 kg/m2 Dr. Hilton Doty Work Phone: 0(632)969-498520 [place] [address] 06-11-2023 11:37-0500 Body weight 89.[address] Hilton Doty Work Phone: 1(851)927-044720 [place] [address] 06-11-2023 11:37-0500 Diastolic blood pressure 74 mm[Hg] Dr. Hilton Doty Work Phone: [facility] 06-11-2023 11:37-0500 Systolic blood pressure 122 mm[Hg] Dr. Hilton Doty Work Phone: [facility] 06-03-2023 17:55-0400 Body temperature 98.4 [degF] Hilton Doty DO Work Phone: [facility] 06-03-2023 17:55-0400 Body weight 90.72 kg Hilton Doty DO Work Phone: [facility] 06-03-2023 17:55-0400 Diastolic blood pressure 80 mm[Hg] Hilton Doty DO Work Phone: [facility] 06-03-2023 17:55-0400 Heart rate 64 /min Hilton Doty DO Work Phone: [facility] 06-03-2023 17:55-0400 Respiratory rate 16 /min Hilton Doty DO Work Phone: [facility] 06-03-2023 17:55-0400 Systolic blood pressure 120 mm[Hg] Hilton Doty DO Work Phone: [facility] 03-02-2023 14:20-0400 Body temperature 97.9 [degF] Hilton Doty DO Work Phone: [facility] 03-02-2023 14:20-0400 Body weight 88.91 kg Hilton Doty DO Work Phone: [facility] 03-02-2023 14:20-0400 Diastolic blood pressure 70 mm[Hg] Hilton Doty DO Work Phone: [facility] 03-02-2023 14:20-0400 Heart rate 76 /min Hilton Doty DO Work Phone: [facility] 03-02-2023 14:20-0400 Respiratory rate 12 /min Hilton Doty DO Work Phone: [facility] 03-02-2023 14:20-0400 Systolic blood pressure 120 mm[Hg] Hilton Doty DO Work Phone: [facility] 11-24-2022 14:00-0400 Body temperature 98.01 [degF] Hilton Doty DO Work Phone: [facility] 11-24-2022 14:00-0400 Body weight 90.27 kg Hilton Doty DO Work Phone: [facility] 11-24-2022 14:00-0400 Diastolic blood pressure 74 mm[Hg] Hilton Doty DO Work Phone: [facility] 11-24-2022 14:00-0400 Heart rate 64 /min Hilton Doty DO Work Phone: [facility] 11-24-2022 14:00-0400 Respiratory rate 16 /min Hilton Doty DO Work Phone: [facility] 11-24-2022 14:00-0400 Systolic blood pressure 130 mm[Hg] Hilton Doty DO Work Phone: [facility] 10-24-2022 11:05-0400 Body temperature 97 [degF] Hilton Doty DO Work Phone: [facility] 10-24-2022 11:05-0400 Body weight 88.91 kg Hilton Doty DO Work Phone: [facility] 10-24-2022 11:05-0400 Diastolic blood pressure 80 mm[Hg] Hilton Doty DO Work Phone: [facility] 10-24-2022 11:05-0400 Heart rate 72 /min Hilton Doty DO Work Phone: [facility] 10-24-2022 11:05-0400 Respiratory rate 16 /min Hilton Doty DO Work Phone: [facility] 10-24-2022 11:05-0400 Systolic blood pressure 136 mm[Hg] Hilton Doty DO Work Phone: [facility] 08-28-2022 11:15-0500 Body height 170.2 cm Priscilla Junior MD Work Phone: [facility] 08-28-2022 11:15-0500 Body temperature 97.59 [degF] Priscilla Junior MD Work Phone: [facility] 08-28-2022 11:15-0500 Body weight 88 kg Priscilla Junior MD Work Phone: [facility] 08-28-2022 11:15-0500 Diastolic blood pressure 75 mm[Hg] Priscilla Junior MD Work Phone: [facility] 08-28-2022 11:15-0500 Heart rate 61 /min Priscilla Junior MD Work Phone: [facility] 08-28-2022 11:15-0500 Systolic blood pressure 118 mm[Hg] Priscilla Junior MD Work Phone: [facility] 07-23-2022 18:41-0500 Body temperature 97.59 [degF] Hilton Doty DO Work Phone: [facility] 07-23-2022 18:41-0500 Body weight 87.54 kg Hilton Doty DO Work Phone: [facility] 07-23-2022 18:41-0500 Diastolic blood pressure 80 mm[Hg] Hilton Doty DO Work Phone: [facility] 07-23-2022 18:41-0500 Heart rate 76 /min Hilton Doty DO Work Phone: [facility] 07-23-2022 18:41-0500 Respiratory rate 12 /min Hilton Doty DO Work Phone: [facility] 07-23-2022 18:41-0500 Systolic blood pressure 120 mm[Hg] Hilton Doty DO Work Phone: [facility] 04-23-2022 17:44-0400 Body temperature 97.3 [degF] Hilton Doty DO Work Phone: [facility] 04-23-2022 17:44-0400 Body weight 86.64 kg Hilton Doty DO Work Phone: [facility] 04-23-2022 17:44-0400 Diastolic blood pressure 70 mm[Hg] Hilton Doty DO Work Phone: [facility] 04-23-2022 17:44-0400 Heart rate 76 /min Hilton Doty DO Work Phone: [facility] 04-23-2022 17:44-0400 Respiratory rate 16 /min Hilton Doty DO Work Phone: [facility] 04-23-2022 17:44-0400 Systolic blood pressure 120 mm[Hg] Hilton Doty DO Work Phone: [facility] 02-12-2022 16:06-0400 Body height 168.9 cm Delphine Floyd APRN.HOME CARE ADMINISTRATOR Work Phone: [facility] 02-12-2022 16:06-0400 Body weight 89.72 kg Delphine Floyd APRN.HOME CARE ADMINISTRATOR Work Phone: [facility] 02-12-2022 16:06-0400 Diastolic blood pressure 70 mm[Hg] Delphine Floyd APRN.HOME CARE ADMINISTRATOR Work Phone: [facility] 02-12-2022 16:06-0400 Systolic blood pressure 112 mm[Hg] Delphine Floyd APRN.HOME CARE ADMINISTRATOR Work Phone: [facility] 01-20-2022 08:50-0400 Body temperature 97.7 [degF] Hilton Doty DO Work Phone: [facility] 01-20-2022 08:50-0400 Body weight 89.81 kg Hilton Doty DO Work Phone: [facility] 01-20-2022 08:50-0400 Diastolic blood pressure 70 mm[Hg] Hilton Doty DO Work Phone: [facility] 01-20-2022 08:50-0400 Heart rate 80 /min Hilton Doty DO Work Phone: [facility] 01-20-2022 08:50-0400 Respiratory rate 16 /min Hilton Doty DO Work Phone: [facility] 01-20-2022 08:50-0400 Systolic blood pressure 110 mm[Hg] Hilton Doty DO Work Phone: [facility] Encounters Encounter Date Encounter Type Care Provider Facility Start: 01-25-2025 ambulatory Derek Barone Facility:[facility] Start: 01-10-2025 ambulatory Laura Rai Facility:[facility] Start: 01-02-2025 ambulatory Hilton Doty Facilit y:[facility] Start: 12-30-2024 ambulatory Derek Barone Facility:[facility] Start: 12-30-2024 End: 12-30-2024 ambulatory Laura Rai Facility:[facility] Start: 12-19-2024 End: 12-19-[address] Derek Barone MD -[facility] Work Phone: Start: 12-19-2024 End: 12-19-[address] Hilton Doty DO Work Phone: [facility] Work Phone: Start: 12-12-2024 End: 12-12-[address] Hilton Doty DO Work Phone: [facility] Work Phone: Start: 12-12-2024 End: 12-12-[address] Priscilla Mart DO -Laboratory Specimen Work Phone: Start: 12-12-2024 End: 12-12-[address] Priscilla Mart DO -[facility] Work Phone: Start: 12-12-2024 End: 12-12-[address] Priscilla Mart DO [facility] Start: 12-12-2024 End: 12-12-2024 ambulatory Priscilla Mart Facility:[facility] Start: 12-12-2024 End: 12-12-2024 ambulatory Priscilla Mart Facility:[facility] Start: 11-28-2024 End: 11-30-2024 ambulatory Hiltno Doty Facility:[facility] Start: 11-28-2024 End: 11-30-[address] Hilton Doty DO -Nutritional Services Work Phone: Start: 11-19-2024 ambulatory Hilton Doty Facilit y:[facility] Start: 11-17-2024 End: 11-17-2024 Telephone encounter Hilton Doty DO Work Phone: [facility] [place] Comment on above: Insurance Authorizat ion Start: 11-16-2024 End: 11-16-2024 Patient encounter procedure Hilton Doty DO Work Phone: [facility] [place] Comment on above: LIVIA (generalized anx iety disorder) (Primary Dx); Obesity, Class I, BMI 30-34.9; Inflammatory polyarthropathy (HCC); Dyslipidemia; Inflammatory arthritis; Perimenopausal symptoms; SOB (shortness of breath); Varicose veins of both lower extremities with complications Start: 11-16-2024 End: 11-16-2024 ambulatory HILTON DOTY Facility:[facility] Start: 11-11-2024 End: 11-11-2024 Telephone encounter Hilton Doty DO Work Phone: Podiatry Comment on above: Results (CT Chest) Start: 11-10-2024 End: 11-10-[address] Hilton Doty DO Work Phone: [facility] Work Phone: Start: 11-10-2024 End: 11-10-[address] Hilton Doty DO -Pulmonary Services/Neurology Work Phone: Start: 11-10-2024 End: 11-10-2024 ambulatory Hilton Doty Facility:[facility] Start: 11-02-2024 End: 11-02-2024 Patient encounter procedure Laura CEE -[facility] Work Phone: Start: 11-02-2024 End: 11-02-2024 ambulatory Hilton Doty Facility:[facility] Start: 10-28-2024 End: 11-04-2024 Telephone encounter Hilton Doty DO Work Phone: [facility] [place] Comment on above: Insurance Authorizat ion Start: 10-26-2024 End: 10-26-2024 Patient encounter procedure Hilton Doty DO Work Phone: [facility] Comment on above: SOB (shortness of br eath) (Primary Dx); Wheezing; Hypokalemia; Varicose veins of both lower extremities with complications; LIVIA (generalized anxiety disorder); Perimenopausal symptoms; Inflammatory arthritis; Dyslipidemia; Inflammatory polyarthropathy (HCC); Fatigue, unspecified type; Vitamin D deficiency; Rosacea; Raynaud's phenomenon without gangrene Start: 10-26-2024 End: 10-26-2024 ambulatory HILTON DOTY Facility:[facility] Start: 10-26-2024 Non-patient / Non-visit [facility] R[facility] Start: 10-26-2024 End: 10-26-[address] Hilton Doty DO Work Phone: [facility] Work Phone: Start: 10-26-2024 End: 10-26-2024 Patient encounter procedure Rajinder Hinton NP-C -Cardiovascular Services Work Phone: Start: 10-26-2024 End: 10-26-2024 ambulatory Rajinder Hinton Facility:[facility] Start: 10-17-2024 End: 10-17-2024 Telephone encounter Rajinder Hinton APRN.CNP Work Phone: [facility] Comment on above: Results Start: 10-14-2024 End: 10-17-2024 Telephone encounter Rjainder Hinton APRN.CNP Work Phone: [facility] Comment on above: Patient Question Start: 10-14-2024 End: 10-14-2024 Patient encounter procedure Rajinder Hinton APRN.HOME CARE ADMINISTRATOR Work Phone: [facility] Comment on above: Bilateral leg edema (Primary Dx); SOB (shortness of breath); Obesity, Class I, BMI 30-34.9 Start: 10-14-2024 End: 10-14-2024 ambulatory HILTON DOTY Facility:[facility] Start: 10-14-2024 Non-patient / Non-visit Dr. Derek bosch MD -[facility] Start: 10-14-2024 End: 10-14-[address] Hilton Doty DO Work Phone: [facility] Work Phone: Start: 10-14-2024 End: 10-14-2024 Patient encounter procedure Laura CEE -Cardiovascular Services Work Phone: Start: 10-13-2024 End: 10-13-2024 Emergency department patient visit Dr. Hilton Doty DO Work Phone: -Emergency Department Work Phone: Start: 10-13-2024 End: 10-14-2024 ambulatory Hilton Doty DO Work Phone: [facility] Comment on above: Shortness of Breath Start: 10-07-2024 End: 10-20-2024 Refill Hilton Doty DO Work Phone: [facility] Comment on above: Refill Request Results Start: 10-03-2024 ambulatory Nilda Loya PUBLISHING EDITOR Facil ity:[facility] Start: 09-26-2024 End: 09-26-[address] Hilton Doty DO Work Phone: [facility] Work Phone: Start: 09-26-2024 End: 09-26-2024 Patient encounter procedure Nilda Loya PUBLISHING EDITOR-C -Outpatient Breast Imaging Work Phone: Start: 09-26-2024 End: 09-26-2024 ambulatory Nilda Loya PUBLISHING EDITOR Facility:[facility] Start: 09-22-2024 End: 09-22-[address] Hilton Doty DO -Laboratory Work Phone: Start: 09-22-2024 End: 09-22-2024 Telephone encounter Hilton Doty DO Work Phone: [facility] Comment on above: Orders Start: 09-21-2024 End: 09-22-2024 ambulatory Hilton Doty Facility:[facility] Start: 09-21-2024 Non-patient / Non-visit Dr. Derek bosch MD -[facility] Start: 09-21-2024 End: 09-21-2024 Patient encounter procedure Laura CEE -Cardiovascular Services Work Phone: Start: 09-21-2024 End: 09-21-2024 ambulatory Hilton Doty Facility:[facility] Start: 09-08-2024 End: 09-08-2024 Patient encounter procedure Laura CEE -[facility] Work Phone: Start: 09-08-2024 End: 09-08-2024 ambulatory Hilton Doty Facility:[facility] Start: 08-08-2024 End: 08-08-2024 Telephone encounter Hilton Doty DO Work Phone: [facility] Comment on above: fax Vas referral to [facility] Start: 08-01-2024 End: 08-01-2024 Patient encounter procedure Hilton Doty DO Work Phone: [facility] Comment on above: Varicose veins of vinnie th lower extremities with complications (Primary Dx); Hypokalemia; LIVIA (generalized anxiety disorder); Situational depression; Obesity, Class I, BMI 30-34.9; Inflammatory polyarthropathy (HCC); Dyslipidemia; Inflammatory arthritis; Perimenopausal symptoms Start: 08-01-2024 End: 08-01-2024 ambulatory HILTON DTOY Facility:[facility] Start: 07-01-2024 End: 07-01-2024 Refill Anna Sheikh APRN.CNP Work Phone: [facility] Comment on above: Refill Request Start: 05-26-2024 End: 05-26-2024 ambulatory Randy CEE Facility:[facility] Start: 05-12-2024 End: 05-19-2024 Telephone encounter Hilton Noe Doty DO Work Phone: [facility] Comment on above: Patient Question Start: 05-11-2024 End: 05-16-2024 ambulatory Hilton Vásquezon DO Work Phone: [facility] Comment on above: Last appt Start: 04-30-2024 End: 04-30-2024 ambulatory Hilton Villatororison Facility:[facility] Start: 04-27-2024 End: 04-27-2024 Telephone encounter Hilton Doty DO Work Phone: [facility] Comment on above: Results Start: 04-25-2024 End: 04-26-2024 ambulatory HILTON L DOTY Facility:[facility] Start: 04-25-2024 End: 04-25-2024 Patient encounter procedure Hilton Villatororison DO Work Phone: [facility] Comment on above: Nausea (Primary Dx); SOB (shortness of breath); Hypokalemia; Fatigue, unspecified type; Inflammatory arthritis; Bilateral leg edema; Situational depression; Obesity, Class I, BMI 30-34.9; Inflammatory polyarthropathy (HCC); Dyslipidemia Start: 04-04-2024 End: 04-04-2024 Emergency department patient visit Ricki Del Rio Facility:[facility] Start: 04-01-2024 End: 04-01-2024 Refill Hilton Doty DO Work Phone: [facility] Comment on above: Refill Request Start: 03-17-2024 Refill Hilton finley DO Work Phone: [facility] Comment on above: Refill Request Start: 02-11-2024 ambulatory Hilton Villatororison Facilit y:[facility] Start: 02-08-2024 End: 02-08-2024 Subsequent hospital visit by physician Tristian [facility] Work Phone: Radiology Comment on above: Lower thoracic back pain [M54.6] Start: 02-08-2024 End: 02-08-2024 ambulatory DORIS DRISCOLL Facility:[facility] Start: 02-08-2024 End: 02-08-2024 Office outpatient visit 15 minutes Doris Driscoll MERCHANDISE MARKER.WINDSHIELD REPAIR TECHNICIAN Work Phone: [facility] Comment on above: Lower thoracic back pain (Primary Dx); Acute low back pain with sciatica, sciatica laterality unspecified, unspecified back pain laterality Start: 02-05-2024 End: 02-05-2024 Emergency department patient visit Jasen Ortiz Facility:[facility] Start: 01-20-2024 End: 01-20-2024 Patient encounter procedure Hilton Doty DO Work Phone: [facility] Comment on above: Dyslipidemia (Primar y Dx); LIVIA (generalized anxiety disorder); Inflammatory polyarthropathy (HCC); Obesity, Class I, BMI 30-34.9; Bilateral leg edema; Vitamin D deficiency; Situational depression Start: 01-20-2024 End: 01-20-2024 ambulatory HILTON DOTY Facility:[facility] Start: 01-11-2024 End: 01-31-2024 ambulatory Hilton Doty Facility:[facility] Start: 12-30-2023 Refill Hilton finley DO Work Phone: [facility] Comment on above: Refill Request Start: 11-25-2023 End: 12-01-[address] Hilton Doty Work Phone: [facility] Work Phone: Start: 11-25-2023 End: 12-01-[address] Hilton Doty Work Phone: [facility]-Nutritional Services Work Phone: Start: 11-20-2023 End: 11-20-[address] Hilton Doty Work Phone: [facility] Work Phone: Start: 10-22-2023 Patient Msg [facility] Provider Family Sorin Shields Comment on above: Orders Start: 10-21-2023 End: 10-21-2023 Patient encounter procedure Hilton Doty DO Work Phone: [facility] Comment on above: Inflammatory polyart hropathy (HCC) (Primary Dx); Abnormal mammogram of right breast; Obesity, Class I, BMI 30-34.9; Inflammatory arthritis; Dyslipidemia; LIVIA (generalized anxiety disorder); Raynaud's phenomenon without gangrene; Vitamin D deficiency; Rosacea Start: 10-21-2023 Telephone encounter Hilton nunez DO Work Phone: [facility] Start: 10-14-2023 End: 10-14-[address] Hilton Doty Work Phone: [facility] Work Phone: Start: 10-05-2023 Telephone encounter Ale Mancia MD Work Phone: Rheumatology Comment on above: Patient Question Start: 09-29-2023 Non-patient / Non-visit Dr. Melissa Doty Work Phone: [facility] Start: 09-29-2023 End: 09-29-2023 Admission to same day surgery center Dr[facility] Hilton Dot[facility] Start: 09-26-2023 End: 09-26-[address] Hilton Doty Work Phone: [facility] Work Phone: Start: 09-24-2023 End: 09-24-[address] Hilton Doty Work Phone: [facility] Work Phone: Start: 09-15-2023 Chart abstracting Leo helton APRN.CNP Work Phone: Rheumatology Comment on above: Abstract (PLQ eye ex am ) Start: 09-14-2023 End: 09-14-[address] Hilton Doty Work Phone: [facility] Work Phone: Start: 09-14-2023 End: 09-14-[address] Hilton Dot[facility] Work [facility]: Start: 09-14-2023 Telephone encounter Ale Mancia MD Work Phone: Rheumatology Comment on above: Patient Question; Jaye hyde Update Patient Question Start: 09-14-2023 End: 09-14-[address] Hilton Doty Work Phone: [facility] Work Phone: Start: 09-03-2023 Chart abstracting Leo helton APRN.CNP Work Phone: Rheumatology Comment on above: Abstract (Outside la b results ) Start: 09-02-2023 End: 09-02-[address] Hilton Doty Work Phone: [facility] Work Phone: Start: 09-02-2023 End: 09-02-[address] Hilton Dot[facility] Phone: Start: 08-12-2023 End: 08-12-[address] Hilton Doty Work Phone: [facility] Work Phone: Start: 08-12-2023 End: 08-12-[address] Hilton [facility] Work Phone: Start: 08-12-2023 End: 08-12-[address] Hilton Doty Work Phone: [facility] Work Phone: Start: 07-10-2023 Refill Priscilla Junior MD Work Phone: Rheumatology Comment on above: Refill Request Start: 07-09-2023 End: 07-09-[address] Hilton Doty Work Phone: [facility] Work Phone: Start: 07-09-2023 End: 07-09-[address] Hilton Doty Work Phone: [facility]-Ultrasound, WC Work Phone: Start: 06-15-2023 Telephone encounter Hilton nunez DO Work Phone: [facility] Comment on above: Results Start: 06-11-2023 End: 06-11-[address] Hilton Doty Work Phone: [facility] Work Phone: Start: 06-11-2023 End: 06-11-[address] Hilton Doty Work Phone: [facility] Work Phone: Start: 06-11-2023 End: 06-11-[address] Hilton Doty Work Phone: [facility]-Outpatient Pav[facility] Ultrasound Work Phone: Start: 06-09-2023 End: 06-09-[address] Hilton Doty Work Phone: [facility] Work Phone: Start: 06-09-2023 End: 06-09-[address] Hilton Doty Work Phone: [facility]-Outpatient Breast Imaging Work Phone: Start: 06-03-2023 End: 06-03-2023 Patient encounter procedure Hilton Doty DO Work Phone: [facility] Comment on above: LIVIA (generalized anx iety disorder) (Primary Dx); Bilateral leg edema; Need for influenza vaccination; Inflammatory polyarthropathy (HCC); Obesity, Class III, BMI 40-49.9 (morbid obesity) (HCC); Situational depression; Encounter for screening mammogram for malignant neoplasm of breast; Dyslipidemia; Obesity, Class I, BMI 30-34.9; Varicose veins of both lower extremities with pain Start: 05-12-[address] Hilton Doty Work Phone: [facility]-Laboratory Work Phone: Start: 05-04-2023 Refill Hilton finley DO Work Phone: [address] [place] [address] Comment on above: Refill Request Start: 04-13-2023 Refill Priscilla Junior MD Work Phone: Rheumatology Comment on above: Refill Request; Allyn ent Update; Patient lost her insurance Start: 04-03-2023 Refill Hilton finley DO Work Phone: [facility] Comment on above: Refill Request Start: 03-02-2023 End: 03-02-2023 Patient encounter procedure Hilton Doty DO Work Phone: [facility] Comment on above: Dyslipidemia (Primar y Dx); Inflammatory polyarthropathy (HCC); Obesity, Class I, BMI 30-34.9; LIVIA (generalized anxiety disorder); Raynaud's phenomenon without gangrene; Bilateral leg edema; Vitamin D deficiency Start: 02-25-[address] Hilton Doty Work Phone: [facility]-Employee Health Start: 02-25-[address] Tameka Doty Work Phone: [facility] Start: 01-27-2023 Telephone encounter Hilton nunez DO Work Phone: [facility] Comment on above: Patient Update; Allny ent Question Start: 01-06-2023 Refill Priscilla Junior MD Work Phone: Rheumatology Comment on above: Refill Request Start: 12-24-2022 ambulatory Hilton finley DO Work Phone: [facility] [place] Start: 12-01-2022 ambulatory Hilton finley DO Work Phone: [facility] Comment on above: lab results Start: 12-01-2022 E-mail encounter fro m caregiver Hilton Doty DO Work Phone: [facility] [place] Start: 11-24-2022 End: 11-24-2022 Patient encounter procedure Hilton Doty DO Work Phone: [facility] [place] Comment on above: LIVIA (generalized anx iety disorder) (Primary Dx); Inflammatory polyarthropathy (HCC); Dyslipidemia; Obesity, Class I, BMI 30-34.9; Raynaud's phenomenon without gangrene; Situational depression Start: 10-24-2022 End: 10-24-2022 Patient encounter procedure Hilton Doty DO Work Phone: [facility] [place] Comment on above: Dyslipidemia (Primar y Dx); Inflammatory polyarthropathy (HCC); Obesity, Class I, BMI 30-34.9; Hot flashes; Bilateral leg edema Start: 10-08-2022 Telephone encounter Hilton starkanthony DO Work Phone: [facility] [place] Comment on above: Appointment Start: 09-12-2022 ambulatory Priscilla Junior MD Work Phone: Rheumatology Comment on above: Lab results Start: 09-12-2022 E-mail encounter rachel toledo caregiver Priscilla Junior MD Work Phone: [facility] Start: 08-28-2022 End: 08-28-2022 Patient encounter procedure Priscilla Junior MD Work Phone: Rheumatology Comment on above: 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); Inflammatory arthritis; Encounter for long-term (current) use of medications; Facial rash; Sicca syndrome (HCC) Start: 07-29-2022 Telephone encounter Hilton starkanthony DO Work Phone: [facility] [place] Comment on above: Medication Problem Start: 07-28-2022 ambulatory Hilton Don malia DO Work Phone: [facility] [place] Start: 07-28-2022 Follow-up encounter Hilton Liu Yisel mianthony DO Work Phone: [facility] [place] Comment on above: Regarding qsymia fro m follow up visit Start: 07-23-2022 End: 07-23-2022 Patient encounter procedure Hilton Doty DO Work Phone: [facility] [place] Comment on above: Dyslipidemia (Primar y Dx); LIVIA (generalized anxiety disorder); Inflammatory polyarthropathy (HCC); Obesity, Class I, BMI 30-34.9; Rosacea; Bilateral leg edema Start: 06-25-2022 Chart abstracting Leo helton APRN.HOME CARE ADMINISTRATOR Work Phone: Rheumatology Comment on above: Abstract (PLQ eye ex am 05/20/2022) Start: 05-19-2022 Refill Hilton finley DO Work Phone: [facility] [place] Comment on above: Refill Request Start: 04-23-2022 End: 04-23-2022 Patient encounter procedure Hilton Doty DO Work Phone: [facility] [place] Comment on above: LIVIA (generalized anx iety disorder) (Primary Dx); Obesity, Class III, BMI 40-49.9 (morbid obesity) (HCC); Inflammatory polyarthropathy (HCC) Start: 02-12-2022 End: 02-12-2022 Patient encounter procedure Delphine Floyd APRN.HOME CARE ADMINISTRATOR Work Phone: OB/Gynecology Comment on above: Encounter for gyneco logical examination with abnormal finding (Primary Dx); Pain due to intrauterine contraceptive device (IUD), initial encounter (HCC); Postcoital bleeding; Vaginal discharge Start: 02-12-2022 End: 02-12-2022 Patient encounter status Delphine Floyd APRN.HOME CARE ADMINISTRATOR Work Phone: OB/Gynecology Start: 02-01-2022 Refill Hilton finley DO Work Phone: [facility] [place] Start: 01-20-2022 End: 01-20-2022 Patient encounter procedure Hilton Doty DO Work Phone: [facility] [place] Comment on above: Dyslipidemia (Primar y Dx); Encounter for screening mammogram for malignant neoplasm of breast; LVIIA (generalized anxiety disorder); Eczematous dermatitis of upper eyelids of both eyes; Inflammatory polyarthropathy (HCC); Bilateral leg edema; Obesity, Class I, BMI 30-34.9 Start: 01-06-2022 Telephone encounter Hilton nunez DO Work Phone: [facility] [place] Comment on above: Medication Problem Start: 12-20-2021 Refill Anna Hodgson ashish MARINELLIHOME CARE ADMINISTRATOR Work Phone: [facility] [place] Comment on above: Refill Request Start: 12-13-2021 Telephone encounter Ale Mancia MD Work Phone: Rheumatology Comment on above: Medication Question Procedures Date Procedure Procedure Detail Performing Clinician Start: 12-12-2024 Liquid based cervica l cytology screening Dr. Hilton Doty DO Work Phone: Comment on above: NEGATIVE FOR INTRAEP ITHELIAL LESION OR MALIGNANCY. This liquid based Th inPrep(R) pap test was screened withthe use of an image guided system. Start: 11-10-2024 CT of chest without contrast Dr. Hilton Doty DO Work Phone: Start: 11-10-2024 Total iron binding c apacity measurement Dr. Hilton Doty DO Work Phone: Start: 11-10-2024 Vitamin D, 25-hydrox y measurement Dr. Hilton Doty DO Work Phone: Comment on above: Vitamin D StatusDefi ciency: <20 ng/mL (50nmol/L)Insufficiency: 20-30 ng/mL (50-75 nmol/L)Sufficiency: 30-100 ng/mL (75-250 nmol/L)Toxicity: >100 ng/mL (>250 nmol/L) Start: 10-13-2024 X-ray of chest, PA a nd lateral views Dr. Hilton Doty DO Work Phone: Start: 10-13-2024 D-dimer assay, quantitative Dr. Hilton Doty DO Work Phone: Comment on above: NORMAL D-Dimer level (<0.50) indicates no DVT or PE. NORMAL D- Dimer level (<0.50) indicates no DVT or PE. Start: 10-13-[address] Hilton Doty DO Work Phone: Start: 09-26-2024 Screening mammography Leon Doty DO Work Phone: Start: 09-22-2024 Measurement of renal function Dr. Hilton Doty DO Work Phone: Comment on above: GFR Calc Start: 02-08-2024 Radex spine lumbosac ral 2/3 views Doris Driscoll MERCHANDISE MARKER.HOME CARE ADMINISTRATOR Work Phone: Start: 07-09-[address] Rachel Doty Work Phone: Start: 07-09-[address] Hilton Doty Work Phone: Start: 06-11-[address] Hilton Doty Work Phone: Start: 06-09-2023 Screening mammography Leon Doty Work Phone: Start: 06-03-2023 INFLUENZA VACCINE, A GE 6 MO - 64 YR, QUADRIVALENT (AFLURIA, FLULAVAL, FLUZONE) Hilton Doty DO Work Phone: Start: 07-01-2021 Mammography Ale Mancia MD Work Phone: Start: 04-12-2021 Adult depression scr eening assessment Ale Conner MD Work Phone: Plan of Treatment Date Care Activity Detail Author Start: 01-04-2026 HPV TESTING HPV TESTING [facility] Start: 01-04-2026 PAP TESTING PAP TESTING [facility] Start: 01-04-2026 Screening for malignant neoplasm of cervix [facility] Start: 01-24-2025 Urine microalbumin profile [facility] Start: 11-16-2024 End: 11-16-2024 Patient encounter procedure 11/16/2024 7:00 PM EDT Office Visit [facility] [place] [address] [facility] [place] [id number] Hilton Doty DO [address] [facility] [place] [id number] Follow up [facility] [place] Comment on above: Follow up Start: 10-26-2024 End: 10-26-2024 Patient encounter procedure 10/26/2024 6:20 PM EDT Office Visit Family Evelia Shields [address] [place] [address] Hilton Doty DO [address] [place] [address] 3 month follow up [facility] [place] Comment on above: 3 month follow up Start: 10-26-2024 End: 01-25-2025 25-hydroxyvitamin D3 [Mass/volume] in Serum or Plasma VITAMIN D 25 HYDROXY Lab Routine Vitamin D deficiency Expected: 10/26/2024, Expires: 01/25/2025 [facility] Comment on above: Expected: 10/26/2024, Expires: Start: 10-26-2024 End: 01-25-2025 C reactive protein [Mass/volume] in Serum or Plasma C-REACTIVE PROTEIN Lab Routine Inflammatory arthritis Inflammatory polyarthropathy (HCC) Expected: 10/26/2024, Expires: 01/25/2025 [facility] Comment on above: Expected: 10/26/2024, Expires: Start: 10-26-2024 End: 01-25-2025 CBC W Auto Differential panel - Blood COMPLETE BLOOD COUNT AND DIFFERENTIAL Lab Routine Perimenopausal symptoms Fatigue, unspecified type Expected: 10/26/2024, Expires: 01/25/2025 [facility] Comment on above: Expected: 10/26/2024, Expires: Start: 10-26-2024 End: 01-25-2025 Cobalamin (Vitamin B12) [Mass/volume] in Serum or Plasma VITAMIN B12 Lab Routine Inflammatory arthritis Inflammatory polyarthropathy (HCC) Fatigue, unspecified type Expected: 10/26/2024, Expires: 01/25/2025 [facility] Comment on above: Expected: 10/26/2024, Expires: Start: 10-26-2024 End: 01-25-2025 Comprehensive metabolic 2000 panel - Serum or Plasma COMPREHENSIVE METABOLIC PANEL Lab Routine Perimenopausal symptoms Fatigue, unspecified type Expected: 10/26/2024, Expires: 01/25/2025 [facility] Comment on above: Expected: 10/26/2024, Expires: Start: 10-26-2024 End: 01-25-2025 Iron and Iron binding capacity panel - Serum or Plasma IRON AND TIBC Lab Routine Perimenopausal symptoms Inflammatory arthritis Raynaud's phenomenon without gangrene Expected: 10/26/2024, Expires: 01/25/2025 [facility] Comment on above: Expected: 10/26/2024, Expires: Start: 10-26-2024 End: 01-25-2025 Thyrotropin [Units/volume] in Serum or Plasma THYROID STIMULATING HORMONE Lab Routine Perimenopausal symptoms Fatigue, unspecified type Expected: 10/26/2024, Expires: 01/25/2025 [facility] Comment on above: Expected: 10/26/2024, Expires: Start: 10-26-2024 End: 01-25-2025 Thyroxine (T4) free [Mass/volume] in Serum or Plasma T4 FREE/FREE THYROXINE Lab Routine Perimenopausal symptoms Fatigue, unspecified type Expected: 10/26/2024, Expires: 01/25/2025 [facility] Comment on above: Expected: 10/26/2024, Expires: Start: 10-14-2024 End: 01-13-2025 Natriuretic peptide.B prohormone N-Terminal [Mass/volume] in Serum or Plasma NT PRO BNP Lab Routine Bilateral leg edema Expected: 10/14/2024, Expires: 01/13/2025 [facility] Work Phone: Comment on above: Expected: 10/14/2024, Expires: Start: 10-13-2024 [facility] Start: 10-13-2024 [facility] Start: 08-01-2024 End: 10-31-2024 C reactive protein [Mass/volume] in Serum or Plasma C-REACTIVE PROTEIN Lab Routine Inflammatory polyarthropathy (HCC) Expected: 08/01/2024, Expires: 10/31/2024 [facility] Comment on above: Expected: 08/01/2024, Expires: Start: 08-01-2024 End: 10-31-2024 CBC W Auto Differential panel - Blood COMPLETE BLOOD COUNT AND DIFFERENTIAL Lab Routine Hypokalemia Expected: 08/01/2024, Expires: 10/31/2024 [facility] Comment on above: Expected: 08/01/2024, Expires: Start: 08-01-2024 End: 10-31-2024 Comprehensive metabolic 2000 panel - Serum or Plasma COMPREHENSIVE METABOLIC PANEL Lab Routine Hypokalemia Expected: 08/01/2024, Expires: 10/31/2024 [facility] Work Phone: Comment on above: Expected: 08/01/2024, Expires: Start: 08-01-2024 End: 10-31-2024 Thyrotropin [Units/volume] in Serum or Plasma THYROID STIMULATING HORMONE Lab Routine Hypokalemia Expected: 08/01/2024, Expires: 10/31/2024 [facility] Comment on above: Expected: 08/01/2024, Expires: Start: 08-01-2024 End: 08-01-2024 Patient encounter procedure 08/01/2024 10:00 AM EST Office Visit Family Evelia Shields [address] [place] [address] Hilton Doty DO [address] [place] [address] 3 month follow up Family Evelia Shields Comment on above: 3 month follow up Start: 06-03-2024 Covid-19 Vaccine () Covid-19 Vaccine () [facility] Comment on above: Postponed from 04/03/2023 (Declined at t his time) Start: 04-27-2024 End: 07-27-2024 Potassium [Moles/volume] in Serum or Plasma POTASSIUM Lab Routine Hypokalemia Expected: 04/27/2024, Expires: 07/27/2024 [facility] Work Phone: Comment on above: Expected: 04/27/2024, Expires: Start: 04-25-2024 End: 07-25-2024 25-hydroxyvitamin D3 [Mass/volume] in Serum or Plasma VITAMIN D 25 HYDROXY Lab Routine Fatigue, unspecified type Expected: 04/25/2024, Expires: 07/25/2024 [facility] Comment on above: Expected: 04/25/2024, Expires: Start: 04-25-2024 End: 07-25-2024 CBC W Auto Differential panel - Blood COMPLETE BLOOD COUNT AND DIFFERENTIAL Lab Routine SOB (shortness of breath) Expected: 04/25/2024, Expires: 07/25/2024 [facility] Comment on above: Expected: 04/25/2024, Expires: Start: 04-25-2024 End: 07-25-2024 Cobalamin (Vitamin B12) [Mass/volume] in Serum or Plasma VITAMIN B12 Lab Routine Fatigue, unspecified type Expected: 04/25/2024, Expires: 07/25/2024 [facility] Comment on above: Expected: 04/25/2024, Expires: Start: 04-25-2024 End: 07-25-2024 Comprehensive metabolic 2000 panel - Serum or Plasma COMPREHENSIVE METABOLIC PANEL Lab Routine Hypokalemia Expected: 04/25/2024, Expires: 07/25/2024 [facility] Comment on above: Expected: 04/25/2024, Expires: Start: 04-25-2024 End: 07-25-2024 Lipase [Enzymatic activity/volume] in Serum or Plasma LIPASE Lab Routine Nausea Expected: 04/25/2024, Expires: 07/25/2024 [facility] Comment on above: Expected: 04/25/2024, Expires: Start: 04-25-2024 End: 07-25-2024 Thyrotropin [Units/volume] in Serum or Plasma THYROID STIMULATING HORMONE Lab Routine Nausea Expected: 04/25/2024, Expires: 07/25/2024 [facility] Work Phone: Comment on above: Expected: 04/25/2024, Expires: Start: 04-25-2024 End: 04-25-2024 Patient encounter procedure 04/25/2024 10:00 AM EDT Office Visit Family [place] [address] [facility] [address] Hilton Doty, [address] [place] [address] Follow up Family Medicine [place] Comment on above: Follow up Start: 04-03-2024 Covid-19 Vaccine () Covid-19 Vaccine () [facility] Start: 04-03-2024 Covid-19 Vaccine () Covid-19 Vaccine () [facility] Start: 04-03-2024 Influenza vaccination Influenza Vaccine (#1) [facility] Start: 01-20-2024 End: 01-20-2024 Patient encounter procedure 01/20/2024 6:40 PM EDT Office Visit Family Medicine [place] [address] [facility] [address] Hilton Doty, [address] [place] [address] Follow up [facility] [place] Comment on above: Follow up Start: 09-29-2023 Anesthesia vaginal procedure w/biopsy nos ANESTH VAGINAL PROCEDURES [facility] Start: 09-29-2023 Endometrial abltj thermal w/o hysteroscopic guid ENDOMETR ABLATE THERMAL [facility] Start: 09-29-2023 Patient discharge [facility] Start: 09-29-2023 Procedure discontinued [facility] Start: 09-29-2023 Ambulation without limitation [facility] Start: 09-29-2023 Medical regimen orders management [facility] Start: 09-29-2023 Medication education [facility] Start: 09-29-2023 Taking patient vital signs [facility] Start: 09-29-2023 Vital signs measurements [facility] Start: 09-29-2023 [facility] Start: 01-10-2024 Liquid based cervical cytology screening [facility] Start: 04-03-2023 Influenza vaccination [facility] Start: 01-30-2023 Influenza vaccination INFLUENZA (#1) [facility] Comment on above: Postponed from 04/03/2022 (Declined at t his time) Start: 10-24-2022 End: 12-24-2022 Progesterone [Mass/volume] in Serum or Plasma PROGESTERONE BLD Lab Routine Hot flashes Expected: 10/24/2022, Expires: 12/24/2022 [facility] Work Phone: Comment on above: Expected: 10/24/2022, Expires: 3 Start: 10-24-2022 End: 12-24-2022 TESTOSTERONE, FREE AND TOTAL TESTOSTERONE, FREE AND TOTAL Lab Routine Hot flashes Expected: 10/24/2022, Expires: 12/24/2022 [facility] Work Phone: Comment on above: Expected: 10/24/2022, Expires: Start: 10-24-2022 End: 12-24-2022 Thyrotropin [Units/volume] in Serum or Plasma TSH BLD Lab Routine Hot flashes Expected: 10/24/2022, Expires: 12/24/2022 [facility] Work Phone: Comment on above: Expected: 10/24/2022, Expires: 3 Start: 10-24-2022 End: 12-24-2022 Thyroxine (T4) free [Mass/volume] in Serum or Plasma T4 FREE/FREE THYROX Lab Routine Hot flashes Expected: 10/24/2022, Expires: 12/24/2022 [facility] Work Phone: Comment on above: Expected: 10/24/2022, Expires: Start: 10-24-2022 End: 12-24-2022 Triiodothyronine (T3) Free [Mass/volume] in Serum or Plasma T3 FREE BLD Lab Routine Hot flashes Expected: 10/24/2022, Expires: 12/24/2022 [facility] Work Phone: Comment on above: Expected: 10/24/2022, Expires: 3 Start: 08-28-2022 End: 10-28-2022 Aldolase [Enzymatic activity/volume] in Serum or Plasma ALDOLASE BLD Lab Routine Undifferentiated connective tissue disease (HCC) Expected: 08/28/2022, Expires: 10/28/2022 [facility] Work Phone: Comment on above: Expected: 08/28/2022, Expires: 3 Start: 08-28-2022 End: 10-28-2022 MAXIM BY IFA WITH REFLEX [facility] Work Phone: Comment on above: Expected: 08/28/2022, Expires: 3 Start: 08-28-2022 End: 10-28-2022 C reactive protein [Mass/volume] in Serum or Plasma [facility] Work Phone: Comment on above: Expected: 08/28/2022, Expires: 3 Start: 08-28-2022 End: 10-28-2022 Centromere Ab [Presence] in Serum by Immunofluorescence [facility] Work Phone: Comment on above: Expected: 08/28/2022, Expires: 3 Start: 08-28-2022 End: 10-28-2022 Complement C3 [Mass/volume] in Serum or Plasma [facility] Work Phone: Comment on above: Expected: 08/28/2022, Expires: 3 Start: 08-28-2022 End: 10-28-2022 Complement C4 [Mass/volume] in Serum or Plasma [facility] Work Phone: Comment on above: Expected: 08/28/2022, Expires: 3 Start: 08-28-2022 End: 10-28-2022 Comprehensive metabolic 2000 panel - Serum or Plasma [facility] Work Phone: Comment on above: Expected: 08/28/2022, Expires: 3 Start: 08-28-2022 End: 10-28-2022 Creatine kinase [Enzymatic activity/volume] in Serum or Plasma CK CREATINE KINASE Lab Routine Undifferentiated connective tissue disease (HCC) Expected: 08/28/2022, Expires: 10/28/2022 [facility] Work Phone: Comment on above: Expected: 08/28/2022, Expires: 3 Start: 08-28-2022 End: 10-28-2022 IMMUNOFIXATION SCREEN, SERUM [facility] Work Phone: Comment on above: Expected: 08/28/2022, Expires: 3 Start: 08-28-2022 End: 10-28-2022 KAPPA/BIA DIEGO,SER [facility] Work Phone: Comment on above: Expected: 08/28/2022, Expires: 3 Start: 08-28-2022 End: 10-28-2022 Lactate dehydrogenase [Enzymatic activity/volume] in Serum or Plasma LD LACTATE DEHYDRO Lab Routine Undifferentiated connective tissue disease (HCC) Expected: 08/28/2022, Expires: 10/28/2022 [facility] Work Phone: Comment on above: Expected: 08/28/2022, Expires: 3 Start: 08-28-2022 End: 10-28-2022 MONOCLONAL PROT UR W/INTERP [facility] Work Phone: Comment on above: Expected: 08/28/2022, Expires: 3 Start: 08-28-2022 End: 10-28-2022 PM-SCL-100 IgG Ab [Units/volume] in Serum [facility] Work Phone: Comment on above: Expected: 08/28/2022, Expires: 3 Start: 08-28-2022 End: 10-28-2022 POLYMYOSITIS AND DERMATOMYOSITIS PANEL [facility] Work Phone: Comment on above: Expected: 08/28/2022, Expires: 3 Start: 08-28-2022 End: 10-28-2022 PROTEIN ELECT RND UR W/INTERP [facility] Work Phone: Comment on above: Expected: 08/28/2022, Expires: 3 Start: 08-28-2022 End: 10-28-2022 PROTEIN ELECTROPHORESIS SERUM W/INTERP [facility] Work Phone: Comment on above: Expected: 08/28/2022, Expires: 3 Start: 08-28-2022 End: 10-28-2022 Protein/Creatinine [Mass Ratio] in Urine [facility] Work Phone: Comment on above: Expected: 08/28/2022, Expires: 3 Start: 08-28-2022 End: 10-28-2022 Rheumatoid factor [Units/volume] in Serum or Plasma [facility] Work Phone: Comment on above: Expected: 08/28/2022, Expires: 3 Start: 08-28-2022 End: 10-28-2022 RNA POLYMERASE III AB [facility] Work Phone: Comment on above: Expected: 08/28/2022, Expires: 3 Start: 08-28-2022 End: 10-28-2022 SCL-70 extractable nuclear IgG Ab [Units/volume] in Serum by Immunoassay [facility] Work Phone: Comment on above: Expected: 08/28/2022, Expires: 3 Start: 08-28-2022 End: 10-28-2022 TH/TO ANTIBODY [facility] [facility] Work Phone: Comment on above: Expected: 08/28/2022, Expires: 3 Start: 08-28-2022 End: 10-28-2022 U3RNP FIBRILLARIN AB [facility] Work Phone: Comment on above: Expected: 08/28/2022, Expires: 3 Start: 08-28-2022 End: 10-28-2022 Urinalysis complete panel - Urine [facility] Work Phone: Comment on above: Expected: 08/28/2022, Expires: 3 Start: 08-03-2022 DEPRESSION ASSESSMENT DEPRESSION ASSESSMENT [facility] Start: 07-03-2022 End: 02-19-2023 CINDY SCREENING W [facility] CINDY SCREENING [facility] Radiology Routine Encounter for screening mammogram for malignant neoplasm of breast Expected: 07/03/2022 (Approximate), Expires: 02/19/2023 [facility] Work Phone: Comment on above: Expected: 07/03/2022 (Approximate), Expi res: 02/19/2023 Start: 07-01-2022 Mammography [facility] Start: 07-01-2022 Screening for malignant neoplasm of breast Mammogram Screening [facility] Start: 04-12-2022 Adult depression screening assessment DEPRESSION SCREENING [facility] Start: 04-03-2022 Influenza vaccination INFLUENZA (#1) [facility] Start: 08-03-2021 DEPRESSION ASSESSMENT DEPRESSION ASSESSMENT [facility] Start: 04-24-2021 COVID-19 VACCINE (3 - Booster for Moderna series) COVID-19 VACCINE (3 - Booster for Moderna series) [facility] Start: 04-24-2021 COVID-19 VACCINE (3 - Moderna series) COVID-19 VACCINE (3 - Moderna series) [facility] Start: 03-27-2021 COVID-19 VACCINE (3 - Moderna risk series) COVID-19 VACCINE (3 - Moderna risk series) [facility] Start: 02-02-1999 SHINGRIX VACCINE (1 of 2) SHINGRIX VACCINE (1 of 2) [facility] Start: 02-02-1998 HIV SCREENING HIV SCREENING [facility] Start: 02-02-1998 HIV screening HIV Screening [facility] Start: 02-02-1986 PNEUMOCOCCAL (1 - PCV) PNEUMOCOCCAL (1 - PCV) [facility] Start: 1980 HEPATITIS B (1 of 3 - 3-dose series) HEPATITIS B (1 of 3 - 3-dose series) [facility] Start: 1980 Hepatitis B Vaccine (1 of 3 - 3-dose series) Hepatitis B Vaccine (1 of 3 - 3-dose series) [facility] End: 11-25-2025 CT Chest WO contrast CT CHEST WO IVCON Radiology Routine SOB (shortness of breath) Wheezing 1 Occurrences starting 10/26/2024 until 11/25/2025 [facility] Comment on above: 1 Occurrences starting 10/26/2024 until 11/25/2025 End: 06-10-2025 DBT Breast - bilateral screening CINDY SCREENING W [facility] Radiology Routine Encounter for screening mammogram for breast cancer 1 Occurrences starting 05/11/2024 until 06/10/2025 [facility] Work Phone: Comment on above: 1 Occurrences starting 05/11/2024 until 06/10/2025 End: 10-14-2025 Echocardiography ECHO Cardiology STAT Bilateral leg edema SOB (shortness of breath) 1 Occurrences starting 10/14/2024 until 10/14/2025 [facility] Work Phone: Comment on above: 1 Occurrences starting 10/14/2024 until 10/14/2025 End: 11-25-2025 LUNG DIFFUSION CAPACITY (DLCO) LUNG DIFFUSION CAPACITY (DLCO) PFT Routine SOB (shortness of breath) Wheezing 1 Occurrences starting 10/26/2024 until 11/25/2025 [facility] Comment on above: 1 Occurrences starting 10/26/2024 until 11/25/2025 End: 11-25-2025 LUNG VOLUMES LUNG VOLUMES PFT Routine SOB (shortness of breath) Wheezing 1 Occurrences starting 10/26/2024 until 11/25/2025 [facility] Comment on above: 1 Occurrences starting 10/26/2024 until 11/25/2025 End: 01-23-2024 CINDY SCREENING CINDY SCREENING Radiology Routine Encounter for screening mammogram for breast cancer 1 Occurrences starting 12/24/2022 until 01/23/2024 [facility] Work Phone: Comment on above: 1 Occurrences starting 12/24/2022 until 01/23/2024 End: 07-02-2024 CINDY SCREENING CINDY SCREENING Radiology Routine Encounter for screening mammogram for malignant neoplasm of breast 1 Occurrences starting 06/03/2023 until 07/02/2024 [facility] Work Phone: Comment on above: 1 Occurrences starting 06/03/2023 until 07/02/2024 End: 11-19-2024 MG Breast - right Diagnostic for implant CINDY DIAGNOSTIC RIGHT Radiology Routine Abnormal mammogram of right breast 1 Occurrences starting 10/21/2023 until 11/19/2024 [facility] Work Phone: Comment on above: 1 Occurrences starting 10/21/2023 until 11/19/2024 Microscopic observat ion [Identifier] in Vaginal fluid by Gram stain BACT/DENISE VAG GRAM STAIN Microbiology Routine Postcoital bleeding Vaginal discharge Ordered: 02/12/2022 [facility] Work Phone: Comment on above: Ordered: 02/12/2022 Path report.final Dx Spec [facility] Patient Education ED Chest Pain, Uncertain Cause ED Dyspnea [facility] Work Phone: Patient referral [facility] Work Phone: PELVIC US WHI PELVIC US WHI An c Imaging Routine Pain due to intrauterine contraceptive device (IUD), initial encounter (HCC) Postcoital bleeding Ordered: 02/12/2022 [facility] Work Phone: Comment on above: Ordered: 02/12/2022 End: 11-25-2025 SPIROMETRY - BASELINE AND POST DILATOR SPIROMETRY - BASELINE AND POST DILATOR PFT Routine SOB (shortness of breath) Wheezing 1 Occurrences starting 10/26/2024 until 11/25/2025 [facility] Work Phone: Comment on above: 1 Occurrences starting 10/26/2024 until 11/25/2025 End: 11-19-2024 US Breast - right limited US BREAST LTD RIGHT Radiology Routine Abnormal mammogram of right breast 1 Occurrences starting 10/21/2023 until 11/19/2024 [facility] Work Phone: Comment on above: 1 Occurrences starting 10/21/2023 until 11/19/2024 US Pelvis [facility] US Pelvis transvaginal [facility] Immunizations Immunization Date Immunization Notes Care Provider Abril smith 06-17-2024 influenza, seasonal, injectable, preservative free Dr. Hilton Doty DO Work Phone: [facility] 06-03-2023 influenza, injectabl e, quadrivalent, contains preservative Hilton Doty DO Work Phone: [facility] Work Phone: 06-03-2023 influenza virus vaccine, unspecified formulation Doris Driscoll APRN.CNS Work Phone: [facility] 04-08-2023 Hepatitis B vaccine (recombinant), CpG adjuvanted Dr. Hilton Doty Work Phone: [facility] 03-04-2023 Hepatitis B vaccine (recombinant), CpG adjuvanted Dr. Hilton Doty Work Phone: [facility] 04-12-2021 influenza, injectabl e, quadrivalent, contains preservative Ale Conner MD Work Phone: [facility] Work Phone: 04-12-2021 influenza virus vaccine, unspecified formulation Priscilla Junior MD Work Phone: [facility] 02-27-2021 Covid (Moderna) Dr. Hilton nunez Work Phone: [facility] 01-30-2021 COVID-19 vaccine, fu ll dose (MODERNA) Ale Conner MD Work Phone: [facility] 07-15-2019 influenza, injectabl e, quadrivalent, contains preservative Ale Conner MD Work Phone: [facility] Work Phone: 04-22-2017 influenza, seasonal, injectable Ale Conner MD Work Phone: [facility] Work Phone: 05-14-2015 influenza, seasonal, injectable Ale Conner MD Work Phone: [facility] Work Phone: 01-24-2015 tetanus toxoid, reduced diphtheria toxoid, and acellular pertussis vaccine, adsorbed Ale Conner MD Work Phone: [facility] Work Phone: Payers Date Payer Category Payer Self-pay [id number] 2023 Unknown [id number] 2023 Private Health Insurance [id number] 2022 Private Health Insurance [id number] 2022 Unknown DINO FUENTES SS PPO [id number] 2022-Present [phone] [address] [place] [address] PPO [id number] 2021 Unknown BETTE CALDERON PRE CURT SELF FUNDED [id number] 2021-Present [phone] [address] [place] [address] PPO [id number] 2020 Private Health Insurance [facility] CHOICE PLUS [id number] 2020-Present [phone] [address] [address] [place] [address] HMO [id number] 2014 Private Health Insurance [employer] [id number] Unknown [facility] [id number] [place] [facility] [place] [id number] Unknown [id number] 2.16.840.1.907120.3.579.2. 462 Unknown [id number] 2.16.840.1.145325.3.579.2. 462 Unknown [id number] 2.16840.1.969498.3.579.2. 462 Unknown [id number] 2.16.840.1.366696.3.579.2. 462 Unknown [id number] 2.16.840.1.295299.3.579.2. 462 Unknown [id number] 2.16.840.1.690057.3.579.2. 462 Unknown [id number] 2.16.840.1.942261.3.579.2. 462 Unknown [id number] 2.16840.1.368722.3.579.2. 462 Unknown [id number] 2.16.840.1.064524.3.579.2. 462 Unknown [id number] 2.16.840.1.664487.3.579.2. 462 Unknown [id number] 2.16840.1.363617.3.579.2. 462 Unknown [id number] 2.16840.1.610664.3.579.2. 462 Unknown [id number] 2.16.840.1.395178.3.579.2. 462 Unknown [id number] 2.16.840.1.484130.3.579.2. 462 Unknown [id number] 2.16.840.1.749135.3.579.2. 462 Unknown [id number] 2.16.840.1.707237.3.579.2. 462 Unknown [id number] 2.16.840.1.276461.3.579.2. 462 Unknown [id number] 2.16.840.1.848377.3.579.2. 462 Unknown [id number] 2.16.840.1.973633.3.579.2. 462 Unknown [id number] 2.16.840.1.136239.3.579.2. 462 Unknown [id number] 2.16.840.1.080418.3.579.2. 462 Unknown [id number] 2.16840.1.571584.3.579.2. 462 Unknown [id number] 2.16840.1.506796.3.579.2. 462 Unknown [id number] 2.16840.1.241752.3.579.2. 462 Unknown [id number] 2.840.1.096052.3.579.2. 462 Unknown [id number] 2.840.1.364280.3.579.2. 462 Unknown [id number] 2.840.1.212981.3.579.2. 462 Unknown [id number] 2.16840.1.627150.3.579.2. 462 Unknown [id number] 2.840.1.974633.3.579.2. 462 Unknown [id number] 2.840.1.144194.3.579.2. 462 Unknown [id number] 2.840.1.498197.3.579.2. 462 Unknown [id number] 2.840.1.567192.3.579.2. 462 Unknown [id number] 2.840.1.994070.3.579.2. 462 Social History Date Type Detail Facility Start: 08-30-2013 End: 08-21-2014 Tobacco smoking status MNIS Never smoked tobacco [facility] Work Phone: Start: 08-30-2013 End: 08-21-2014 Tobacco use and exposure Smokeless tobacco non-user [facility] Work Phone: Start: 10-05-2021 End: 10-26-2024 Alcohol intake Current drinker of alcohol (finding) [facility] Start: 08-21-2014 History SDOH Alcohol Comment occ [facility] Start: 01-04-2021 Education 13 [facility] Start: 1980 Sex Assigned At Not on file C [facility] Start: 01-10-2022 End: 04-23-2022 Exposure to SARS-CoV-2 (event) Not sure [facility] Work Phone: Start: 03-02-2023 End: 02-08-2024 History of Social function [facility] Work Phone: Start: 03-02-2023 End: 02-08-2024 Tobacco use panel [facility] Work Phone: Adult Depression Screening Assessment 0 [facility] Work Phone: Start: 06-11-2023 End: 10-14-2023 Tobacco smoking status NHIS Unknown if ever smoked [facility] Start: 03-12-2020 Rare [facility] Start: 03-12-2020 None [facility] Start: 03-12-2020 Spouse/ Signif icant Other;With Family [facility] Start: 1980 Sex Assigned At Female W [facility] Has the Photo [employer], gas, oil, or water [employer] threatened to shut off services in your home in past 12Mo No [facility] Are you now , , , , never or living with a partner? [facility] How often to you hav e a drink containing alcohol? Never [facility] How often do you hav e 6 or more drinks on 1 occasion? Less than monthly [facility] Do you feel stress - tense, restless, nervous, or anxious, or unable to sleep at night because your mind is troubled all the time - these days [OSQ] To some extent [facility] (I/We) worried whether (my/our) food would run out before (I/we) got money to buy more. Never true [facility] Start: 04-04-2024 End: 10-13-2024 Tobacco smoking status NHIS Ex-smoker (finding) [facility] Start: 10-06-2024 End: 11-14-2024 Sex Female (finding) [facility] NEGATED: Highlighted row [facility] Functional Status Date Assessment Result Facility 01-24-2015 Are you deaf, or do you have serious difficulty hearing No 01/24/2015 1:02 PM EDT July Beaver LPN No [facility] 01-24-2015 Are you blind, or do you have serious difficulty seeing, even when wearing glasses No 01/24/2015 1:02 PM EDT July Beaver LPN No [facility] 01-24-2015 Do you have serious difficulty walking or climbing stairs No 01/24/2015 1:02 PM EDT July Beaver LPN No [facility] 01-24-2015 Do you have difficul ty dressing or bathing No 01/24/2015 1:02 PM EDT July Beaver LPN No [facility] 01-24-2015 Because of a physica l, mental, or emotional condition, do you have difficulty doing errands alone such as visiting a physician's office or shopping No 01/24/2015 1:02 PM EDT July Beaver LPN No [facility] Mental Status Date Assessment Result Facility 09-29-2023 Cognitive function Voice/Name [facility] Work Phone: 01-24-2015 Because of a physica l, mental, or emotional condition, do you have serious difficulty concentrating, remembering, or making decisions No 01/24/2015 1:02 PM EDT July Beaver LPN No [facility] Clinical Notes 12-13-2021 to 12-19-2024 Note Date & Type Note Facility 12-19-2024 Progress note Note Date/Time December 19, 2024 6:29p m [facility] [address] [place], [place] [address]. [address] [place] [address] OFFICE VISIT Date of Service: 12/19/24 MR#: [id number] Acct: [id number] Name: WANDA CAAL Rep #: [id number] : 1980 Provider: Dr. Derek Barone MD Age/Sex: 44/F Location: [facility] Status: Signed Intake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 on 10-26-24 at 1 pm, and has an appt with pcp that same day at 6:20 pm. States she has been having trouble with SOB (worse on exertion) and chest heaviness, for 3 mths. Reports she doesn't think it's anxiety. Reports all heart tests so far have been negative. Pt asking pcp to refill her lorazepam. Pended. [facility] Telephone encounter Note* Telephone Encounter - Hilton Doty DO - 10/19/2024 7:57 PM EDT Please inform patient that labs were stable other than CRP was elevated mildly. Recommend addressing this with [facility] Hilton Doty DO [facility]03-17-[facility] Telephone encounter Note* Telephone Encounter - Lissa Cedillo RN - 10/17/2024 4:40 PM EDT Pt called and is notified of providers results and instructions. Pt voices understanding. Lissa Cedillo RN [facility]03-17-2025 Miscellaneous Notes* Telephone Encounter - Lissa Cedillo RN - 10/17/2024 4:40 PM EDT Pt called and is notified of providers results and instructions. Pt voices understanding. Lissa Cedillo RN * Telephone Encounter - Rajinder Hinton APRN.FEI - 10/17/2024 4:24 PM EDT I want her to increase her chlorthalidone to 50mg daily x3 days and let me know if symptoms improve. * Telephone Encounter - Simran Méndez RN - 10/17/2024 4:20 PM EDT Patient calls back and states that she does not take lasix. Patient was taken off of lasix. Patienttake chlorthalidone 25 mg daily for edema. Please review and advise, Simran Méndez RN * Telephone Encounter - Lissa Cedillo RN - 10/17/2024 3:57 PM EDT Pt called and is notified of providers message and instructions. Pt voices understanding. Pt statesshe take 20 mg of Lasix daily, she is going to double it for the next 3 days and will call back in to let us know how she is doing. She states she always feels thirsty. She said Dr Doty told her to get hard candy to suck on, and she said she will do that. She said she doesn't know if it's her other medication that makes her so thirsty. Pt was asking how much water the provider would want her to limit herself to. Lissa Cedillo RN * Telephone Encounter - Rajinder Hinton APRN.CNP - 10/17/2024 3:36 PM EDT Has patient scheduled echo? If so when is it? In the meantime I would recommend watching her salt and water intake, How much lasix is she taking currently? If she is only taking 20mg daily I would have increase to 40mg for the next 3 days to see if there is an improvement in her symptoms. * Telephone Encounter - Dasia Hopper MA - 10/17/2024 3:26 PM EDT Pt notified and verbalized understanding. Pt asking if you have any further recommendations to help with the SOB in the meantime? Dasia Hopper MA * Telephone Encounter - Rajinder Hinton APRN.CNP - 10/17/2024 2:36 PM EDT Please let patient know her BNP is normal. Patient should follow up with Dr. Doty next week as scheduled. * Telephone Encounter - Gina Sparks LPN - 10/17/2024 2:28 PM EDT Patient calling asking if her lab results are back she had done at [facility] on 10/14? See in lab section scanned in. Patient was going to try to go back to work tomorrow but still feels short of breath with not much activity, and fatigued. Please advise documented in [facility]03-[facility]25 Telephone encounter Note * Telephone Encounter - Rajinder Hinton APRN.CNP - 10/17/2024 4:24 PM EDT I want her to increase her chlorthalidone to 50mg daily x3 days and let me know if symptoms improve. [facility] Work Phone: [phone] 766-196303-17-2025 Telephone encounter Note* Telephone Encounter - Simran Méndez RN - 10/17/2024 4:20 PM EDT Patient calls back and states that she does not take lasix. Patient was taken off of lasix. Patienttake chlorthalidone 25 mg daily for edema. Please review and advise, Simran Méndez RN [facility]03-17-[facility] Telephone encounter Note* Telephone Encounter - Lissa Cedillo, ELSIE - 10/17/2024 3:57 PM EDT Pt called and is notified of providers message and instructions. Pt voices understanding. Pt statesshe take 20 mg of Lasix daily, she is going to double it for the next 3 days and will call back in to let us know how she is doing. She states she always feels thirsty. She said Dr Doty told her to get hard candy to suck on, and she said she will do that. She said she doesn't know if it's her other medication that makes her so thirsty. Pt was asking how much water the provider would want her to limit herself to. Lissa Cedillo, RN [facility]03-17-2025 Telephone encounter Note* Telephone Encounter - Rajinder Hinton APRN.CNP - 10/17/2024 3:36 PM EDT Has patient scheduled echo? If so when is it? In the meantime I would recommend watching her salt and water intake, How much lasix is she taking currently? If she is only taking 20mg daily I would have increase to 40mg for the next 3 days to see if there is an improvement in her symptoms. [facility] Telephone encounter Note* Telephone Encounter - Dasia Hopper MA - 10/17/2024 3:26 PM EDT Pt notified and verbalized understanding. Pt asking if you have any further recommendations to help with the SOB in the meantime? Dasia Hopper MA [facility]03-17-2025 Telephone encounter Note* Telephone Encounter - Rajinder Hinton APRN.CNP - 10/17/2024 2:36 PM EDT Please let patient know her BNP is normal. Patient should follow up with Dr. Doty next week as scheduled. [facility] Telephone encounter Note* Telephone Encounter - Gina Sparks LPN - 10/17/2024 2:28 PM EDT Patient calling asking if her lab results are back she had done at [facility] on 10/14? See in lab section scanned in. Patient was going to try to go back to work tomorrow but still feels short of breath with not much activity, and fatigued. Please advise [facility]-17-[facility] Telephone encounter Note* Telephone Encounter - Dasia Hopper MA - 10/17/2024 10:17 AM EDT New stat order faxed to [facility] Dasia Hopper MA [facility]03-17-2025 Miscellaneous Notes* Telephone Encounter - Dasia Hopper MA - 10/17/2024 10:17 AM EDT New stat order faxed to [facility] Dasia Hopper MA * Telephone Encounter - Rajinder Hinton APRN.CNP - 10/14/2024 3:40 PM EDT New order placed. Please fax to [facility]. * Telephone Encounter - Frank Obando RN - 10/14/2024 3:19 PM EDT Patient calls to report that she is having trouble scheduling ECHO with [facility] until out into November because it doesn't say stat. Patient asking if order can be changed to STAT and sent to [facility] scheduling. Frank Obando RN documented in this encounterKe[facility]03-[facility]-2025 Telephone encounter Note * Telephone Encounter - Rajinder Hinton APRN.CNP - 10/14/2024 3:40 PM EDT New order placed. Please fax to [facility]. [facility]03-14-2025 Telephone encounter Note* Telephone Encounter - Frank Obando RN - 10/14/2024 3:19 PM EDT Patient calls to report that she is having trouble scheduling ECHO with [facility] until out into November because it doesn't say stat. Patient asking if order can be changed to STAT and sent to [facility] scheduling. Frank Obando RN [facility]03-14-2025 NoteHNO ID: [id number] Author: RAJINDER HINTON APRN.FEI Service: ? Author Type: Nurse Practitioner Type: Progress Notes Filed: 10/14/2024 13:40 Note Text: Chief Complaint Patient presents with: ER F/U HPI Wanda Caal is a 44 year old female who presents here today for Above Complaints.. Patient presents for hospital follow up for SOB. SOB started 3 months ago and has progressively gotten worse. She had CXR, troponin, EKG and ddimer completed in ER which were all negative. Patient also had US this am which was negative for DVT. Reports SOB with talking, mild activity. Worse with stairs. Past medical history, appointments, medications, allergies reviewed. Previous Medical History PAST MEDICAL HISTORY Diagnosis Date MAXIM positive 09/2014 Inflammatory polyarthropathy (HCC) Kidney stone with stent Raynaud's disease Previous Surgical History PAST SURGICAL HISTORY Procedure Laterality Date DANDC (MISSED AB 1ST TRIMESTER) 2001 ESWL Right 05/08/2017 EXTRACTION, ERUPTED TOOTH OR EXPOSED ROOT (ELEVATION AND/OR FORCEPS REMOVAL) GALLBLADDER/EF TUBAL LIGATION HX 2006 Family History FAMILY HISTORY Problem Relation Age of Onset Alcohol/Drug Father Breast Cancer Maternal Grandmother Hypertension Maternal Grandmother Cancer Paternal Grandmother Breast Cancer Paternal Aunt x2 Cancer Paternal Aunt bone Patient Allergies ALLERGIES Allergen Reactions Penicillins Unknown Current Medications Current Outpatient Medications on File Prior to Visit Medication Sig chlorthalidone (HYGROTON) 25 mg tablet Take 1 tablet by mouth once daily. As needed for edema buPROPion (WELLBUTRIN) 75 mg tablet Take 2 tablets in the AM and 2 tablet in the afternoon phentermine-topiramate ER (QSYMIA) 11.25-69 mg 24 Hr Capsule Take 1 capsule by mouth once daily for 90 days. BMI 31.32 hydrOXYchloroQUINE (PLAQUENIL) 200 mg tablet Take 1 tablet by mouth once daily. potassium chloride (K-TAB) 10 mEq tablet Take 1 tablet by mouth two times a day with meals. traZODone (DESYREL) 50 mg tablet Take 1-2 tablets by mouth daily at bedtime. metroNIDAZOLE 0.75 % cream Apply to affected area two times a day. hydrocortisone 2.5 % cream Apply 1 application to affected area two times a day as needed (hemorrhoids). Location: hemorrhoids naproxen (NAPROSYN) 500 mg tablet Take 1 tablet by mouth two times a day as needed (for pain/inflammation). Take with food. furosemide (LASIX) 20 mg tablet Take 0.5-1 tablets by mouth daily with breakfast. Cholecalciferol, Vitamin D3, 2,000 unit cap Take 2 tablets by mouth once daily. No current facility-administered medications on file prior to visit. Social History Social History Tobacco Use Smoking status: Never Smokeless tobacco: Never Vaping Use Vaping status: Never Used Substance Use Topics Alcohol use: Yes Comment: occ Drug use: No Review of Symptoms REVIEW OF SYSTEMS SEE HPI EXAM: BP 102/71 Pulse 81 Wt 85 kg (187 lb 6.3 oz) LMP 12/29/2020 SpO2 100% BMI 29.35 kg/m? General Appearance: Well appearing, alert, in no acute distress, well-hydrated, well nourished. Lungs: Lungs clear to auscultation. No wheezing, rhonchi, rales.. Heart: RRR without murmur, gallop, or rubs. No ectopy. Peripheral Pulses: Normal. Health Maintenance List HIV Screening Never done Mammogram Screening due on 07/01/2022 Covid-19 Vaccine(3 - 2023- season) due on 04/03/2024 DTaP,Tdap,Td Vaccine(2 - Td or Tdap) due on 01/24/2025 Cervical Cancer Screening due on 01/04/2026 Hepatitis B Vaccine Completed Influenza Vaccine Completed Hepatitis C Screening Completed ASSESSMENT/PLAN: 1. Bilateral leg edema - ICD9: 782.3, ICD10: R60.0 (primary diagnosis) - ECHO - PERFLUTREN LIPID MICROSPHERES 1.1 MG/ML INJECTION IN NS 10 ML - SODIUM CHLORIDE 0.9 % (FLUSH) INJECTION SYRINGE - NT PRO BNP 2. SOB (shortness of breath) - ICD9: 786.05, ICD10: R06.02 - ECHO - PERFLUTREN LIPID MICROSPHERES 1.1 MG/ML INJECTION IN NS 10 ML - SODIUM CHLORIDE 0.9 % (FLUSH) INJECTION SYRINGE 3. Obesity, Class I, BMI 30-34.9 - ICD9: 278.00, ICD10: E66.811 - SODIUM CHLORIDE 0.9 % (FLUSH) INJECTION SYRINGE Rajinder Hinton APRN.[facility]03-14-2025 History of Present illness Narrative* Rajinder Hinton APRN.HOME CARE ADMINISTRATOR - 10/14/2024 1:21 PM EDT Chief Complaint Patient presents with: ER F/U HPI Wanda Caal is a 44 year old female who presents here today for Above Complaints.. Patient presents for hospital follow up for SOB. SOB started 3 months ago and has progressively gotten worse. She had CXR, troponin, EKG and ddimer completed in ER which were all negative. Patient also had US this am which was negative for DVT. Reports SOB with talking, mild activity. Worse with stairs. Past medical history, appointments, medications, allergies reviewed. Previous Medical History PAST MEDICAL HISTORY Diagnosis Date MAXIM positive 09/2014 Inflammatory polyarthropathy (HCC) Kidney stone with stent Raynaud's disease Previous Surgical History PAST SURGICAL HISTORY Procedure Laterality Date D&C (MISSED AB 1ST TRIMESTER) 2001 ESWL Right 05/08/2017 EXTRACTION, ERUPTED TOOTH OR EXPOSED ROOT (ELEVATION AND/OR FORCEPS REMOVAL) GALLBLADDER/EF TUBAL LIGATION HX 2006 Family History FAMILY HISTORY Problem Relation Age of Onset Alcohol/Drug Father Breast Cancer Maternal Grandmother Hypertension Maternal Grandmother Cancer Paternal Grandmother Breast Cancer Paternal Aunt x2 Cancer Paternal Aunt bone Patient Allergies ALLERGIES Allergen Reactions Penicillins Unknown Current Medications Current Outpatient Medications on File Prior to Visit Medication Sig chlorthalidone (HYGROTON) 25 mg tablet Take 1 tablet by mouth once daily. As needed for edema buPROPion (WELLBUTRIN) 75 mg tablet Take 2 tablets in the AM and 2 tablet in the afternoon phentermine-topiramate ER (QSYMIA) 11.25-69 mg 24 Hr Capsule Take 1 capsule by mouth once daily for90 days. BMI 31.32 hydrOXYchloroQUINE (PLAQUENIL) 200 mg tablet Take 1 tablet by mouth once daily. potassium chloride (K-TAB) 10 mEq tablet Take 1 tablet by mouth two times a day with meals. traZODone (DESYREL) 50 mg tablet Take 1-2 tablets by mouth daily at bedtime. metroNIDAZOLE 0.75 % cream Apply to affected area two times a day. hydrocortisone 2.5 % cream Apply 1 application to affected area two times a day as needed (hemorrhoids). Location: hemorrhoids naproxen (NAPROSYN) 500 mg tablet Take 1 tablet by mouth two times a day as needed (for pain/inflammation). Take with food. furosemide (LASIX) 20 mg tablet Take 0.5-1 tablets by mouth daily with breakfast. Cholecalciferol, Vitamin D3, 2,000 unit cap Take 2 tablets by mouth once daily. No current facility-administered medications on file prior to visit. Social History Social History Tobacco Use Smoking status: Never Smokeless tobacco: Never Vaping Use Vaping status: Never Used Substance Use Topics Alcohol use: Yes Comment: occ Drug use: No Review of Symptoms REVIEW OF SYSTEMS SEE HPI EXAM: BP 102/71 Pulse 81 Wt 85 kg (187 lb 6.3 oz) LMP 12/29/2020 SpO2 100% BMI 29.35 kg/m General Appearance: Well appearing, alert, in no acute distress, well-hydrated, well nourished. Lungs: Lungs clear to auscultation. No wheezing, rhonchi, rales.. Heart: RRR without murmur, gallop, or rubs. No ectopy. Peripheral Pulses: Normal. Health Maintenance List HIV Screening Never done Mammogram Screening due on 07/01/2022 Covid-19 Vaccine(3 - 2023- season) due on 04/03/2024 DTaP,Tdap,Td Vaccine(2 - Td or Tdap) due on 01/24/2025 Cervical Cancer Screening due on 01/04/2026 Hepatitis B Vaccine Completed Influenza Vaccine Completed Hepatitis C Screening Completed ASSESSMENT/PLAN: 1. Bilateral leg edema - ICD9: 782.3, ICD10: R60.0 (primary diagnosis) - ECHO - PERFLUTREN LIPID MICROSPHERES 1.1 MG/ML INJECTION IN NS 10 ML - SODIUM CHLORIDE 0.9 % (FLUSH) INJECTION SYRINGE - NT PRO BNP 2. SOB (shortness of breath) - ICD9: 786.05, ICD10: R06.02 - ECHO - PERFLUTREN LIPID MICROSPHERES 1.1 MG/ML INJECTION IN NS 10 ML - SODIUM CHLORIDE 0.9 % (FLUSH) INJECTION SYRINGE 3. Obesity, Class I, BMI 30-34.9 - ICD9: 278.00, ICD10: E66.811 - SODIUM CHLORIDE 0.9 % (FLUSH) INJECTION SYRINGE Rajinder Hinton APRN.HOME CARE ADMINISTRATOR documented [facility] Radiology Diagnostic study note [facility] Imaging Services [address] [place], [place] [address] Chest PA and Lateral MR#: [id number] Acct: [id number] Name: WANDA CAAL Rep #: [id number] : 1980 F 44 From: Donovan Almanza MD PCP: Dr. Hilton Doty DO Status: RE G ER Study:Chest PA and Lateral Date of Exam: 10/13/24 Exam# [id number] Ordering Dr: Charlie Lombardo DO PROCEDURE: CHEST PA AND LATERAL 10/13/2024 REASON FOR EXAM: PAIN, SOB TECHNIQUE: Frontal and lateral views of the chest. COMPARISON: Chest x-ray dated 04/04/2024. FINDINGS: The heart size is normal. The mediastinal contour is unremarkable. The lungs are clear. The bones are unremarkable. Surgical clips seen within the right upper abdominal quadrant, likely from priorcholecystectomy procedure. RAD/Chest PA and Lateral IMPRESSION: No acute pulmonary disease. Reading Location: [id number] CC: Dr. Hilton Doty, DO; Dr. Charlie Lombardo, DO ~ Justice Court Judge: Signed [facility]03-13-2025 Telephone encounter Note* Telephone Encounter - Lissa Cedillo RN - 10/13/2024 12:16 PM EDT Protocol recommends go to the ER. Pt is going to [facility] ER. Care plan reviewed with patient. Patient voices understanding. Advised patient that if symptoms get worse to call 911. Reason for Disposition [1] MODERATE difficulty breathing (e.g., speaks in phrases, SOB even at rest, pulse 100-120) AND [2] NEW-onset or WORSE than normal Answer Assessment - Initial Assessment Questions 1. RESPIRATORY STATUS: Pt reports shortness of breath, can't take full breath, and SOB with talking. 2. ONSET: The breathing problems began 3 weeks ago. 3. PATTERN The difficult breathing comes and goes. 4. SEVERITY: - MILD: No SOB at rest, mild SOB with walking, speaks normally in sentences, can lie down, no retractions, pulse < 100. - MODERATE: SOB at rest, SOB with minimal exertion and prefers to sit, cannot lie down flat, speaksin phrases, mild retractions, audible wheezing, pulse 100 to 120. - SEVERE: Very SOB at rest, speaks in single words, struggling to breathe, sitting hunched forward,retractions, pulse > 120 Pt reports sometimes she can be SOB at rest or talking. States sometimes can't get full breath. 5. RECURRENT SYMPTOM: Pt reports she had difficulty breathing before when she had Pleurisy. 6. CARDIAC HISTORY: Denies any history of heart disease any heart attack, angina, bypass surgery, angioplasty. 7. LUNG HISTORY: Pt denies any history of lung disease like pulmonary embolus, asthma, emphysema. 8. CAUSE: Does not know what is causing the breathing problem. 9. OTHER SYMPTOMS: Pt report chest pain or pressure on R side. Pt denies cough, dizziness, fever, runny nose. 10. O2 SATURATION MONITOR: Pt does not have pulse ox. 11. : Denies , LMP Thur before first Mon in October. 12. TRAVEL: Denies travel out of the country in the last month. Protocols used: Breathing [id number] [facility]03-13-2025 Miscellaneous Notes* Telephone Encounter - Lissa Cedillo RN - 10/13/2024 12:16 PM EDT Protocol recommends go to the ER. Pt is going to [facility] ER. Care plan reviewed with patient. Patient voices understanding. Advised patient that if symptoms get worse to call 911. Reason for Disposition [1] MODERATE difficulty breathing (e.g., speaks in phrases, SOB even at rest, pulse 100-120) AND [2] NEW-onset or WORSE than normal Answer Assessment - Initial Assessment Questions 1. RESPIRATORY STATUS: Pt reports shortness of breath, can't take full breath, and SOB with talking. 2. ONSET: The breathing problems began 3 weeks ago. 3. PATTERN The difficult breathing comes and goes. 4. SEVERITY: - MILD: No SOB at rest, mild SOB with walking, speaks normally in sentences, can lie down, no retractions, pulse < 100. - MODERATE: SOB at rest, SOB with minimal exertion and prefers to sit, cannot lie down flat, speaksin phrases, mild retractions, audible wheezing, pulse 100 to 120. - SEVERE: Very SOB at rest, speaks in single words, struggling to breathe, sitting hunched forward,retractions, pulse > 120 Pt reports sometimes she can be SOB at rest or talking. States sometimes can't get full breath. 5. RECURRENT SYMPTOM: Pt reports she had difficulty breathing before when she had Pleurisy. 6. CARDIAC HISTORY: Denies any history of heart disease any heart attack, angina, bypass surgery, angioplasty. 7. LUNG HISTORY: Pt denies any history of lung disease like pulmonary embolus, asthma, emphysema. 8. CAUSE: Does not know what is causing the breathing problem. 9. OTHER SYMPTOMS: Pt report chest pain or pressure on R side. Pt denies cough, dizziness, fever, runny nose. 10. O2 SATURATION MONITOR: Pt does not have pulse ox. 11. : Denies , LMP Thur before first Mon in October. 12. TRAVEL: Denies travel out of the country in the last month. Protocols used: Breathing [id number] documented in this encounterKe[facility]03-[facility]-2025 Telephone encounter Note * Telephone Encounter - Ngoc Ervin RN - 10/07/2024 10:38 AM EST Patient calling in and states she is out of this medication. The patient has been identified by name and date of : Yes Caregiver verified no other encounters exist for this prescription request: Yes Caregiver confirmed with patient/requestor that no other refills are due, in the near future, with this provider at this time: Yes The last office visit in the department: 08/01/2024 Does the patient have a future office visit with this provider/department: Yes 10/26/2024 Requested Prescriptions Pending Prescriptions Disp Refills chlorthalidone (HYGROTON) 25 mg tablet 30 tablet 5 Sig: Take 1 tablet by mouth once daily. As needed for edema Ngoc Ervin RN [facility]03-07-2025 Miscellaneous Notes* Telephone Encounter - Ngoc Ervin RN - 10/07/2024 10:38 AM EST Patient calling in and states she is out of this medication. The patient has been identified by name and date of : Yes Caregiver verified no other encounters exist for this prescription request: Yes Caregiver confirmed with patient/requestor that no other refills are due, in the near future, with this provider at this time: Yes The last office visit in the department: 08/01/2024 Does the patient have a future office visit with this provider/department: Yes 10/26/2024 Requested Prescriptions Pending Prescriptions Disp Refills chlorthalidone (HYGROTON) 25 mg tablet 30 tablet 5 Sig: Take 1 tablet by mouth once daily. As needed for edema Ngoc Ervin RN documented in this encounterKe[facility]03-07-2025 Telephone encounter Note * Telephone Encounter - Ngoc Ervin RN - 10/07/2024 10:18 AM EST Patient asking if Dr. Doty could review her [facility] lab results that were completed 09/22/24 (in scanned docs), as well as her [facility] Note from 09/08/24 (in scanned docs as well). Pt states there is no [facility]ano to review these records, but wanted Dr. Doty's advise on her lab results, as she sees there are some numbers that are off and she was not feeling well during the time she had her labs drawn. Pt states she will be following up with [facility] Vascular in November. Ngoc Ervin RN [facility]02-20-2025 Telephone encounter Note* Telephone Encounter - Frank Obando RN - 09/22/2024 12:35 PM EST Patient calls to request lab orders be faxed to [facility]. Faxed to [phone] per request. Frank Obando RN [facility]02-20-2025 Miscellaneous Notes* Telephone Encounter - Frank Obando RN - 09/22/2024 12:35 PM EST Patient calls to request lab orders be faxed to [facility]. Faxed to [phone] per request. Frank Obando RN documented in this encounterKeenan [facility] Hospital02-06-2025 Evaluation note* Diagnosis Onset Date Resolution Status Admit Date Varicose veins of lower extremity noneactive September 08 10:57am [facility] Work Phone: 1(898) 220-842102-06-2025 Evaluation note* Diagnosis Onset Date Resolution Status Admit Date Varicose veins of lower extremity noneactive September 08 10:57am Varicose veins of lower extremity noneactive November 02, 2024 11:30am [facility] Work Phone: 1(868) 462-272402-06-2025 Evaluation note* Diagnosis Onset Date Resolution Status Admit Date Varicose veins of lower extremity noneactive September 08 10:57am Varicose veins of lower extremity noneactive November 02, 2024 11:30am Encounter for routine gynecological examination noneactive December 122024 9:20am [facility] Work Phone: 1(182) 377-862802-06-2025 Evaluation note* Diagnosis Onset Date Resolution Status Admit Date Varicose veins of lower extremity noneactive September 08 10:57am Varicose veins of lower extremity noneactive November 02, 2024 11:30am Encounter for routine gynecological examination noneactive December 122024 9:20am Symptomatic varicose veins chronic December 19, 2024 3:31pm [facility] Work Phone: 1(570) 622-212901-06-2025 Telephone encounter Note* Telephone Encounter - Gina Sparks LPN - 08/08/2024 10:59 AM EST Patient calling asking to have Vascular referral faxed to Dr Derek Barone [facility] at [phone]. Printed office visit note, consult, face sheet, insurance card copy,and faxed as requested. So patient can get appt set up. [facility]01-[facility] Miscellaneous Notes* Telephone Encounter - Gina Sparks LPN - 08/08/2024 10:59 AM EST Patient calling asking to have Vascular referral faxed to Dr Derek Barone [facility] at [phone]. Printed office visit note, consult, face sheet, insurance card copy,and faxed as requested. So patient can get appt set up. documented in this encounterKeenan Private Hospital12-30-2024 NoteHNO ID: [id number] Author: HILTON DOTY, DO Service: ? Author Type: Physician Type: Progress Notes Filed: 08/02/2024 07:20 Note Text: CC: Wanda Caal is a 44 year old female who presents to the office for follow up HPI: Weight, was at 189 lbs previously and today in the office dressed is 197 lbs. Admits drinks some soda daily. Needs to increase water intake. She is taking the Qsymia as prescribed with benefit but admits hat she hasn't been eating as healthy recently with the holiday season and not exercising as consistently. Needs to get back on routines. Left >right leg heaviness feeling and aching and intermittent edema, long standing hx of varicose veins. She is interested in pursuing taking care of these veins surgically by specialist at [facility] where she works Inflammatory polyarthropathy, symptoms have been stable. Use of plaquenil as prescribed. Getting yearly eye examination Edema, use of chlorthalidone medication and potassium supplement Mood, admits to recently being stressed but feels she is in a better job position than previous. She is working with Psychiatrist office Dr. Oliveros at [facility]. She feels that her perimenopausal symptoms are bothering her. She is going to further discuss with [employer] as well. PAST MEDICAL HISTORY Diagnosis Date MAXIM positive 09/2014 Inflammatory polyarthropathy (HCC) Kidney stone with stent Raynaud's disease PAST SURGICAL HISTORY Procedure Laterality Date DANDC (MISSED AB 1ST TRIMESTER) 2001 ESWL Right 05/08/2017 EXTRACTION, ERUPTED TOOTH OR EXPOSED ROOT (ELEVATION AND/OR FORCEPS REMOVAL) GALLBLADDER/EF TUBAL LIGATION HX 2005 Current Outpatient Medications Medication Sig buPROPion (WELLBUTRIN) 75 mg tablet Take 2 tablets in the AM and 2 tablet in the afternoon phentermine-topiramate ER (QSYMIA) 11.25-69 mg 24 Hr Capsule Take 1 capsule by mouth once daily for 90 days. BMI 31.32 hydrOXYchloroQUINE (PLAQUENIL) 200 mg tablet Take 1 tablet by mouth once daily. potassium chloride (K-TAB) 10 mEq tablet Take 1 tablet by mouth two times a day with meals. chlorthalidone (HYGROTON) 25 mg tablet Take 1 tablet by mouth once daily. As needed for edema traZODone (DESYREL) 50 mg tablet Take 1-2 tablets by mouth daily at bedtime. metroNIDAZOLE 0.75 % cream Apply to affected area two times a day. hydrocortisone 2.5 % cream Apply 1 application to affected area two times a day as needed (hemorrhoids). Location: hemorrhoids naproxen (NAPROSYN) 500 mg tablet Take 1 tablet by mouth two times a day as needed (for pain/inflammation). Take with food. furosemide (LASIX) 20 mg tablet Take 0.5-1 tablets by mouth daily with breakfast. Cholecalciferol, Vitamin D3, 2,000 unit cap Take 2 tablets by mouth once daily. No current facility-administered medications for this visit. ALLERGIES Allergen Reactions Penicillins Unknown Social History Tobacco Use Smoking status: Never Smokeless tobacco: Never Vaping Use Vaping status: Never Used Substance Use Topics Alcohol use: Yes Comment: occ Drug use: No ROS: See HPI PE: BP 130/70 Pulse 64 Temp (Src) 97.6 (Left Tympanic) Resp 16 Wt 197 lb (89.4kg) LMP 12/29/2020 Gen: AANDOX3, NAD, non-toxic appearing HEENT: PERRLA, EOMs intact b/l, nares without drainage, pharynx without erythema, exudate, lesions, or drainage. Uvula midline. Neck: No LAD, no thyromegaly, no meningismus. CV: RRR, no murmur Lungs: CTA b/l, no wheezing Skin: No rashes, lesions, or wounds on exposed skin. Trace leg edema, normal pulses + varicose veins of legs Abd: overweight, NT,ND, normal BS, no obvious masses ASSESSMENT/PLAN: 1. Varicose veins of both lower extremities with complications - ICD9: 454.8, ICD10: I83.893 (primary diagnosis) Referral to specialist for opinion for removal surgically, she wants to see surgeon at [facility] where she works - CONSULT TO VASCULAR SURGERY 2. Hypokalemia - ICD9: 276.8, ICD10: E87.6 Recheck labs as ordered Continue potassium supplement - COMPREHENSIVE METABOLIC PANEL - COMPLETE BLOOD COUNT AND DIFFERENTIAL - THYROID STIMULATING HORMONE 3. LIVIA (generalized anxiety disorder) - ICD9: 300.02, ICD10: F41.1 Increase dose of wellbutrin D/w [employer] regarding perimenopause and how this is also affecting her mood and management of her mood. - BUPROPION HCL 75 MG TABLET 4. Situational depression - ICD9: 309.0, ICD10: F43.21 Increase dose of wellbutrin D/w [employer] regarding perimenopause and how this is also affecting her mood and management of her mood. - BUPROPION HCL 75 MG TABLET 5. Obesity, Class I, BMI 30-34.9 - ICD9: 278.00, ICD10: E66.811 Increase dose of wellbutrin D/w [employer] regarding perimenopause and how this is also affecting her mood and management of her mood. - Lengthy discussion in office today regarding diet and exercise. Discussed use of small plate to eat meals from, drink 1 glass of water 10-15 minutes prior to eating (more content not included)...[facility]12-30-2024 History of Present illness Narrative* Hilton Doty, - 08/01/2024 10:25 AM EST CC: Wanda Caal is a 44 year old female who presents to the office for follow up HPI: Weight, was at 189 lbs previously and today in the office dressed is 197 lbs. Admits drinks some soda daily. Needs to increase water intake. She is taking the Qsymia as prescribed with benefit but admits hat she hasn't been eating as healthy recently with the holiday season and not exercising as consistently. Needs to get back on routines. Left >right leg heaviness feeling and aching and intermittent edema, long standing hx of varicose veins. She is interested in pursuing taking care of these veins surgically by specialist at [facility] where she works Inflammatory polyarthropathy, symptoms have been stable. Use of plaquenil as prescribed. Getting yearly eye examination Edema, use of chlorthalidone medication and potassium supplement Mood, admits to recently being stressed but feels she is in a better job position than previous. She is working with Psychiatrist office Dr. Oliveros at [facility]. She feels that her perimenopausal symptoms are bothering her. She is going to further discuss with [employer] as well. PAST MEDICAL HISTORY Diagnosis Date MAXIM positive 09/2014 Inflammatory polyarthropathy (HCC) Kidney stone with stent Raynaud's disease PAST SURGICAL HISTORY Procedure Laterality Date D&C (MISSED AB 1ST TRIMESTER) 2001 ESWL Right 05/08/2017 EXTRACTION, ERUPTED TOOTH OR EXPOSED ROOT (ELEVATION AND/OR FORCEPS REMOVAL) GALLBLADDER/EF TUBAL LIGATION HX 2005 Current Outpatient Medications Medication Sig buPROPion (WELLBUTRIN) 75 mg tablet Take 2 tablets in the AM and 2 tablet in the afternoon phentermine-topiramate ER (QSYMIA) 11.25-69 mg 24 Hr Capsule Take 1 capsule by mouth once daily for90 days. BMI 31.32 hydrOXYchloroQUINE (PLAQUENIL) 200 mg tablet Take 1 tablet by mouth once daily. potassium chloride (K-TAB) 10 mEq tablet Take 1 tablet by mouth two times a day with meals. chlorthalidone (HYGROTON) 25 mg tablet Take 1 tablet by mouth once daily. As needed for edema traZODone (DESYREL) 50 mg tablet Take 1-2 tablets by mouth daily at bedtime. metroNIDAZOLE 0.75 % cream Apply to affected area two times a day. hydrocortisone 2.5 % cream Apply 1 application to affected area two times a day as needed (hemorrhoids). Location: hemorrhoids naproxen (NAPROSYN) 500 mg tablet Take 1 tablet by mouth two times a day as needed (for pain/inflammation). Take with food. furosemide (LASIX) 20 mg tablet Take 0.5-1 tablets by mouth daily with breakfast. Cholecalciferol, Vitamin D3, 2,000 unit cap Take 2 tablets by mouth once daily. No current facility-administered medications for this visit. ALLERGIES Allergen Reactions Penicillins Unknown Social History Tobacco Use Smoking status: Never Smokeless tobacco: Never Vaping Use Vaping status: Never Used Substance Use Topics Alcohol use: Yes Comment: occ Drug use: No ROS: See HPI PE: BP 130/70 Pulse 64 Temp (Src) 97.6 (Left Tympanic) Resp 16 Wt 197 lb (89.4kg) LMP 12/29/2020 Gen: A&OX3, NAD, non-toxic appearing HEENT: PERRLA, EOMs intact b/l, nares without drainage, pharynx without erythema, exudate, lesions,or drainage. Uvula midline. Neck: No LAD, no thyromegaly, no meningismus. CV: RRR, no murmur Lungs: CTA b/l, no wheezing Skin: No rashes, lesions, or wounds on exposed skin. Trace leg edema, normal pulses + varicose veins of legs Abd: overweight, NT,ND, normal BS, no obvious masses ASSESSMENT/PLAN: 1. Varicose veins of both lower extremities with complications - ICD9: 454.8, ICD10: I83.893 (primary diagnosis) Referral to specialist for opinion for removal surgically, she wants to see surgeon at [facility] where she works - CONSULT TO VASCULAR SURGERY 2. Hypokalemia - ICD9: 276.8, ICD10: E87.6 Recheck labs as ordered Continue potassium supplement - COMPREHENSIVE METABOLIC PANEL - COMPLETE BLOOD COUNT AND DIFFERENTIAL - THYROID STIMULATING HORMONE 3. LIVIA (generalized anxiety disorder) - ICD9: 300.02, ICD10: F41.1 Increase dose of wellbutrin D/w BOWSTRING MAKER regarding perimenopause and how this is also affecting her mood and management of her mood. - BUPROPION HCL 75 MG TABLET 4. Situational depression - ICD9: 309.0, ICD10: F43.21 Increase dose of wellbutrin D/w BOWSTRING MAKER regarding perimenopause and how this is also affecting her mood and management of her mood. - BUPROPION HCL 75 MG TABLET 5. Obesity, Class I, BMI 30-34.9 - ICD9: 278.00, ICD10: E66.811 Increase dose of wellbutrin D/w BOWSTRING MAKER regarding perimenopause and how this is also affecting her mood and management of her mood. - Lengthy discussion in office today regarding [...] track your calories and exercise as well. She is going to follow up with her Grease Cup Filler as well. - QSYMIA 11.25 MG-69 MG CAPSULE, EXTENDED RELEASE 6. Inflammatory polyarthropathy (HCC) - ICD9: 714.9, ICD10: M06.4 See above F/u with Flat Hammerer. - QSYMIA 11.25 MG-69 MG CAPSULE, EXTENDED RELEASE - C-REACTIVE PROTEIN 7. Dyslipidemia - ICD9: 272.4, ICD10: E78.5 - Improving control - Continue current medications - Counseled on healthy diet and regular exercise - Discussed need for and benefit of weight loss. BMI 30.85 kg/(m^2) - QSYMIA 11.25 MG-69 MG CAPSULE, EXTENDED RELEASE 8. Inflammatory arthritis - ICD9: 714.9, ICD10: M19.90 See above F/u with Flat Hammerer. - HYDROXYCHLOROQUINE 200 MG TABLET 9. Perimenopausal symptoms - ICD9: 627.2, ICD10: N95.1 Follow up with BOWSTRING MAKER Hilton Doty DO Return if no improvement. Follow up with Hilton Doty DO. To ER if develops chest pain, shortness of breath. Discussed risks, benefits, alternatives, and potential side effects of medications. Patient/Guardian expressed understanding and agreed with the plan. See patient instructions. Hilton Doty DO [address] [place] [address] documented in [facility] Telephone encounter Note * Telephone Encounter - Gina Sparks LPN - 07/01/2024 11:28 AM EST Patient calling ran out of medication did not have her dose yesterday and today, thought she had refills left. Pending rx to file. Please advise The patient has been identified by name and date of : Yes Caregiver verified no other encounters exist for this prescription request: Yes Caregiver confirmed with patient/requestor that no other refills are due, in the near future, with this provider at this time: Yes The last office visit in the department: 04/25/2024 Does the patient have a future office visit with this provider/department: Yes 08/01/2024 Requested Prescriptions Pending Prescriptions Disp Refills hydrOXYchloroQUINE (PLAQUENIL) 200 mg tablet 90 tablet 0 Sig: Take 1 tablet by mouth once daily. Gina Sparks LPN July 01, 2024 11:29 AM [facility]11-29-[facility]24 Miscellaneous Notes* Telephone Encounter - Gina Sparks LPN - 07/01/2024 11:28 AM EST Patient calling ran out of medication did not have her dose yesterday and today, thought she had refills left. Pending rx to file. Please advise The patient has been identified by name and date of : Yes Caregiver verified no other encounters exist for this prescription request: Yes Caregiver confirmed with patient/requestor that no other refills are due, in the near future, with this provider at this time: Yes The last office visit in the department: 04/25/2024 Does the patient have a future office visit with this provider/department: Yes 08/01/2024 Requested Prescriptions Pending Prescriptions Disp Refills hydrOXYchloroQUINE (PLAQUENIL) 200 mg tablet 90 tablet 0 Sig: Take 1 tablet by mouth once daily. Gina Sparks LPN July 01, 2024 11:29 AM documented in this encounterKe[facility]10-17-2024 Telephone encounter Note * Telephone Encounter - Lois Rod MA - 05/19/2024 10:00 AM EDT Pt informed via message Lois Rod MA [facility]10-17-[facility]24 Miscellaneous Notes* Telephone Encounter - Lois Rod MA - 05/19/2024 10:00 AM EDT Pt informed via message Lois Rod MA * Telephone Encounter - Anna Sheikh APRN.CNP - 05/19/2024 9:54 AM EDT At this point she has not opened any days. Anna Sheikh APRN.CNP * Telephone Encounter - Lois Rod MA - 05/12/2024 7:17 AM EDT Please see pt message-- Wv Dr Doty at last visit you said you were maybe opening up some Saturdays in May is this happening you had said you would have a nurse reach out to vee to schedule. He is still biting his tongue a lot and feel he needs to get in with you when your able to see him. I appreciate you have agreat rest of your night thank you ! documented in this encounterKeen[facility]10-17-2024 Telephone encounter Note * Telephone Encounter - Anna Sheikh APRN.CNP - 05/19/2024 9:54 AM EDT At this point she has not opened any days. Anna Sheikh APRN.CNP [facility] Telephone encounter Note* Telephone Encounter - Lois Rod MA - 05/12/2024 7:17 AM EDT Please see pt message-- Wv Dr Doty at last visit you said you were maybe opening up some Saturdays in May is this happening you had said you would have a nurse reach out to vee to schedule. He is still biting his tongue a lot and feel he needs to get in with you when your able to see him. I appreciate you have agreat rest of your night thank you ! [facility] Telephone encounter Note* Telephone Encounter - Lois Rod MA - 05/12/2024 7:09 AM EDT Turned into TE Lois Rod MA [facility]10-10-[facility]24 Miscellaneous Notes* Telephone Encounter - Lois Rod MA - 05/12/2024 7:09 AM EDT Turned into TE Lois Rod MA documented in this encounterKeenan [facility] Hospital10-09-2024 NotePatient Outreach (INTMMN) AWNDA CAAL ([id number]) 1980 F Date Time Provider Department 05/11/24 HILTON DOTY INTMMN During your visit today, we recorded the following information about you: Allergies As of Date: 05/11/2024 Noted Allergy Reaction PENICILLINS 08/30/2013 16 - Unknown Date Reviewed: 04/25/2024 Reviewed by: July Beaver LPN - Fully Assessed Visit Diagnosis:Encounter for screening mammogram for breast cancer [Z12.31] Order(s):[facility] SCREENING [facility] [[id number]] Order #: [id number] FUTURE Prescriptions as of 05/16/2024 - potassium chloride (K-TAB) 10 mEq tablet Take 1 tablet by mouth two times a day with meals. - phentermine-topiramate ER (QSYMIA) 11.25-69 mg 24 Hr Capsule Take 1 capsule by mouth once daily for 90 days. BMI 31.32 - hydrOXYchloroQUINE (PLAQUENIL) 200 mg tablet Take 1 tablet by mouth once daily. - chlorthalidone (HYGROTON) 25 mg tablet Take 1 tablet by mouth once daily. As needed for edema - buPROPion (WELLBUTRIN) 75 mg tablet Take 2 tablets in the AM and 1 tablet in the afternoon - traZODone (DESYREL) 50 mg tablet Take 1-2 tablets by mouth daily at bedtime. - metroNIDAZOLE 0.75 % cream Apply to affected area two times a day. - hydrocortisone 2.5 % cream Apply 1 application to affected area two times a day as needed (hemorrhoids). Location: hemorrhoids - naproxen (NAPROSYN) 500 mg tablet Take 1 tablet by mouth two times a day as needed (for pain/inflammation). Take with food. - furosemide (LASIX) 20 mg tablet Take 0.5-1 tablets by mouth daily with breakfast. - Cholecalciferol, Vitamin D3, 2,000 unit cap Take 2 tablets by mouth once daily. Problem List As Of Date 05/11/2024 Noted Resolved Varicose veins of both legs with edema [I83.893]09/15/2014 Raynaud phenomenon [I73.00] 09/15/2014 Stiffness of hand joint [M25.649] 09/15/2014 Inflammatory polyarthropathy (HCC) [M06.4] 04/14/2015 Obesity, Class I, BMI 30-34.9 [E66.811] 01/16/2016 Symptomatic varicose veins [I83.899] 06/27/2016 Obesity, [...] flashes [R23.2] 10/28/2022 Situational depression [F43.21] 11/27/2022 Varicose veins of both lower extremities with p*06/03/2023 Nausea [R11.0] 04/25/2024 SOB (shortness of breath) [R06.02] 04/25/2024 Hypokalemia [E87.6] 04/25/2024 Inflammatory arthritis [M19.90] 04/25/2024 Encounter Status:Closed by RaizlabsCHRISTIANEUSEBreanne on 05/16/24[facility] 04-27-2024 Telephone encounter Note* Telephone Encounter - Lois Rod MA - 04/27/2024 6:53 PM EDT Pt informed, verbalized understanding Lois Rod MA [facility] Miscellaneous Notes* Telephone Encounter - Lois Rod MA - 04/27/2024 6:53 PM EDT Pt informed, verbalized understanding Lois Rod MA * Telephone Encounter - Hilton oDty DO - 04/27/2024 6:29 PM EDT Please inform patient that her labs show that her vitamin B12 is low normal. Would recommend takingadditional 500-1000 mcg vitamin B12 daily in the AM. Also her potassium was low at 2.8. needs to be taking the potassium supplement rx I sent in twice aday with meals. Recheck potassium in 3-4 days Hilton Doty DO * Telephone Encounter - Lois Rod MA - 04/27/2024 8:41 AM EDT Lab results attached. Lois Rod MA View External Labs - Miscellaneous Lab [ID [id number]] View External Labs - Miscellaneous Lab [ID [id number]] View External Labs - Miscellaneous Lab [ID [id number]] documented in this encounterKeenan [facility]09-25-2024 Telephone encounter Note * Telephone Encounter - Hilton Doty DO - 04/27/2024 6:29 PM EDT Please inform patient that her labs show that her vitamin B12 is low normal. Would recommend takingadditional 500-1000 mcg vitamin B12 daily in the AM. Also her potassium was low at 2.8. needs to be taking the potassium supplement rx I sent in twice aday with meals. Recheck potassium in 3-4 days Hilton Doty DO [facility] Telephone encounter Note* Telephone Encounter - Lois Rod MA - 04/27/2024 8:41 AM EDT Lab results attached. Lois Rod MA View External Labs - Miscellaneous Lab [ID [id number]] View External Labs - Miscellaneous Lab [ID [id number]] View External Labs - Miscellaneous Lab [ID [id number]] [facility] Instructions* Patient Instructions* Hilton Doty DO - 04/25/2024 10:51 AM EDT Magnesium glycinate or gluconate 400-500 mg in the evening Vitamin B complex daily in the morning. Take as liquid supplement with at least 1000 mcg vitamin B12, documented in this encounterKeenan [facility] Hospital09-23-2024 NoteHNO ID: [id number] Author: HILTON DOYT DO Service: ? Author Type: Physician Type: Progress Notes Filed: 04/25/2024 11:46 Note Text: CC: Wanda Caal is a 44 year old female who presents to the office for follow up HPI: Previously at her OFFICE VISIT on 10/21/2023 Inflammatory polyarthropathy, no signs of retinal concerns for her plaquenil monitoring. states had dilated eye exam by Dr. Genao in May 2023 Does feel that her mirena and perimenopause hormonal changes are bothering her. She feels that her complains about her libido changes and she has some days that she is still irritable/easily upset and is emotional. Has support from her family. Still also getting used to a new job at [employer] over the last 7-8 months as well. Had abnormal mammogram right breast, had to get ultrasound of right breast which determined the area was a benign cyst without concerns. This added to her anxiety symptoms. Knows needs this testing repeated. Obesity, weight at 198 lbs. Knows need for further weight loss. Is taking the qsymia and tolerating rx well. Would like to continue medication. Trying to continue healthy diet choices and exercise as well. would also be interested in seeing Grease Cup Filler at [facility] Currently Has been having increased stressors at her job when her co-worker MA quit and she is doing her job alone. Hasn't been feeling like herself lately and with this above stress, she feels overwhelmed. Has been struggling with being nauseated in the AM and when she is on her menses cycles. She struggles to eat the breakfast. Was recently seen in the EMERGENCY DEPARTMENT on 04/04/24 due to shortness of breath. Her potassium level was 2.7. she was started on potassium supplement, her CXR was normal Varicose veins, b/l legs, hasn't made appt yet with vascular surgeon for evaluation for correction but knows she needs to do this. Inflammatory arthropathy, taking plaquenil 200 mg once a day, needs to make follow up with Flat Hammerer. Mood, struggling with being stressed due to all the above health issues as well as depression in her that she is trying to help him with as well. No SI or HI. She is taking her wellbutrin as prescribed Obesity, weight at 190 lbs. Knows need for further weight loss. Is taking the qsymia and tolerating rx well. Would like to continue medication. Trying to continue healthy diet choices and exercise as well. she has been seeing Grease Cup Filler at [facility] PAST MEDICAL HISTORY Diagnosis Date MAXIM positive 09/2014 Inflammatory polyarthropathy (HCC) Kidney stone with stent Raynaud's disease PAST SURGICAL HISTORY Procedure Laterality Date DANDC (MISSED AB 1ST TRIMESTER) 2001 ESWL Right 05/08/2017 EXTRACTION, ERUPTED TOOTH OR EXPOSED ROOT (ELEVATION AND/OR FORCEPS REMOVAL) GALLBLADDER/EF TUBAL LIGATION HX 2006 Social History: Social History Tobacco Use Smoking status: Never Smokeless tobacco: Never Vaping Use Vaping status: Never Used Substance Use Topics Alcohol use: Yes Comment: [...] mouth once daily. As needed for edema LORazepam (ATIVAN) 0.5 mg Take 1 tablet by mouth once daily as needed (anxiety attack) for up to 30 days. buPROPion (WELLBUTRIN) 75 mg tablet Take 2 tablets in the AM and 1 tablet in the afternoon traZODone (DESYREL) 50 mg tablet Take 1-2 tablets by mouth daily at bedtime. metroNIDAZOLE 0.75 % cream Apply to affected area two times a day. hydrocortisone 2.5 % cream Apply 1 application to affected area two times a day as needed (hemorrhoids). Location: hemorrhoids naproxen (NAPROSYN) 500 mg tablet Take 1 tablet by mouth two times a day as needed (for pain/inflammation). Take with food. furosemide (LASIX) 20 mg tablet Take 0.5-1 tablets by mouth daily with breakfast. Cholecalciferol, Vitamin D3, 2,000 unit cap Take 2 tablets by mouth once daily. Allergies: ALLERGIES Allergen Reactions Penicillins Unknown ROS: See HPI PE: 04/25/24 1016 BP: 120/80 Pulse: 64 Resp: 12 Temp: 36.1 ?C (97 ?F) TempSrc: Right Tympanic Weight: 86.2 kg (190 lb) Gen: AANDO, NAD, non-toxic appearing, Pleasant, cooperative HEENT: NT/AC, PERRLA, EOMs intact b/l, nares clear and patent b/l, pharynx without erythema, exudate or lesions. Uvula midline. MMM Neck: supple, No cervical LAD, no thyromegaly, no carotid bruits CV: RRR, normal S1 and S2, no murmurs, no gallops, no rubs, Pulses 2+ and symmetric in UE and LE b/l Lungs: normal respiratory effort, CTA b/l, (more content not included)... [facility]09-23-2024 History of Present illness Narrative* Hilton Doty, DO - 04/25/2024 10:18 AM EDT CC: Wanda Caal is a 44 year old female who presents to the office for follow up HPI: Previously at her OFFICE VISIT on 10/21/2023 Inflammatory polyarthropathy, no signs of retinal concerns for her plaquenil monitoring. states haddilated eye exam by Dr. Genao in May 2023 Does feel that her mirena and perimenopause hormonal changes are bothering her. She feels that her complains about her libido changes and she has some days that she is still irritable/easily upset and is emotional. Has support from her family. Still also getting used to a new job at [employer] over the last 7-8 months as well. Had abnormal mammogram right breast, had to get ultrasound of right breast which determined the area was a benign cyst without concerns. This added to her anxiety symptoms. Knows needs this testing repeated. Obesity, weight at 198 lbs. Knows need for further weight loss. Is taking the qsymia and toleratingrx well. Would like to continue medication. Trying to continue healthy diet choices and exercise aswell. would also be interested in seeing Grease Cup Filler at [facility] Currently Has been having increased stressors at her job when her co-worker MA quit and she is doing her job alone. Hasn't been feeling like herself lately and with this above stress, she feels overwhelmed. Has been struggling with being nauseated in the AM and when she is on her menses cycles. She struggles to eat the breakfast. Was recently seen in the EMERGENCY DEPARTMENT on 04/04/24 due to shortness of breath. Her potassium level was 2.7. she was started on potassium supplement, her CXR was normal Varicose veins, b/l legs, hasn't made appt yet with vascular surgeon for evaluation for correction but knows she needs to do this. Inflammatory arthropathy, taking plaquenil 200 mg once a day, needs to make follow up with [employer] Ham[employer]rer. Mood, struggling with being stressed due to all the above health issues as well as depression in her that she is trying to help him with as well. No SI or HI. She is taking her wellbutrin as prescribed Obesity, weight at 190 lbs. Knows need for further weight loss. Is taking the qsymia and toleratingrx well. Would like to continue medication. Trying to continue healthy diet choices and exercise aswell. she has been seeing Grease Cup Filler at [facility] PAST MEDICAL HISTORY Diagnosis Date MAXIM positive 09/2014 Inflammatory polyarthropathy (HCC) Kidney stone with stent Raynaud's disease PAST SURGICAL HISTORY Procedure Laterality Date D&C (MISSED AB 1ST TRIMESTER) 2001 ESWL Right 05/08/2017 EXTRACTION, ERUPTED TOOTH OR EXPOSED ROOT (ELEVATION AND/OR FORCEPS REMOVAL) GALLBLADDER/EF TUBAL LIGATION HX 2006 Social History: Social History Tobacco Use Smoking status: Never Smokeless tobacco: Never Vaping Use Vaping status: Never Used Substance Use Topics Alcohol use: Yes Comment: [...] mouth once daily. As needed for edema LORazepam (ATIVAN) 0.5 mg Take 1 tablet by mouth once daily as needed (anxiety attack) for up to 30days. buPROPion (WELLBUTRIN) 75 mg tablet Take 2 tablets in the AM and 1 tablet in the afternoon traZODone (DESYREL) 50 mg tablet Take 1-2 tablets by mouth daily at bedtime. metroNIDAZOLE 0.75 % cream Apply to affected area two times a day. hydrocortisone 2.5 % cream Apply 1 application to affected area two times a day as needed (hemorrhoids). Location: hemorrhoids naproxen (NAPROSYN) 500 mg tablet Take 1 tablet by mouth two times a day as needed (for pain/inflammation). Take with food. furosemide (LASIX) 20 mg tablet Take 0.5-1 tablets by mouth daily with breakfast. Cholecalciferol, Vitamin D3, 2,000 unit cap Take 2 tablets by mouth once daily. Allergies: ALLERGIES Allergen Reactions Penicillins Unknown ROS: See HPI PE: 04/25/24 1016 BP: 120/80 Pulse: 64 Resp: 12 Temp: 36.1 C (97 F) TempSrc: Right Tympanic Weight: 86.2 kg (190 lb) Gen: A&O, NAD, non-toxic appearing, Pleasant, cooperative HEENT: NT/AC, PERRLA, EOMs intact b/l, nares clear and patent b/l, pharynx without erythema, exudate or lesions. Uvula midline. MMM Neck: supple, No cervical LAD, no thyromegaly, no carotid bruits CV: RRR, normal S1 and S2, no murmurs, no gallops, no rubs, Pulses 2+ and symmetric in UE and LE b/l Lungs: normal respiratory effort, CTA b/l, no wheezing or rhonchi or rales Abd: soft, overweight MS: FROM all 4 extremities Neuro: CN II-XII intact b/l, strength 5/5 b/l UE and LE, DTRs 2/4 UE and LE, sensation intact. Skin: warm, dry, intact, No rashes or lesions on exposed skin. Varicose veins legs ASSESSMENT/PLAN: 1. Nausea - ICD9: 787.02, ICD10: R11.0 (primary diagnosis) Labs as ordered Likely related to the hypokalemia, need to start on medication for potassium replacement- start on once a day supplement and recheck labs as ordered. rx sent to pharmacy - THYROID STIMULATING HORMONE - LIPASE 2. SOB (shortness of breath) - ICD9: 786.05, ICD10: R06.02 Labs as ordered Likely related to the hypokalemia, need to start on medication for potassium replacement- start on once a day supplement and recheck labs as ordered. rx sent to pharmacy Had otherwise normal negative CXR and work up at [facility] EM[facility]GENCY DEPARTMENT - COMPLETE BLOOD COUNT AND DIFFERENTIAL 3. Hypokalemia - ICD9: 276.8, ICD10: E87.6 Labs as ordered Likely related to the hypokalemia, need to start on medication for potassium replacement- start on once a day supplement and recheck labs as ordered. rx sent to pharmacy Had otherwise normal negative CXR and work up at [facility] EMERGENCY DEPARTMENT - POTASSIUM CHLORIDE ER 10 MEQ TABLET,EXTENDED RELEASE - COMPREHENSIVE METABOLIC PANEL 4. Fatigue, unspecified type - ICD9: 780.79, ICD10: R53.83 Labs as ordered Likely related to the hypokalemia, need to start on medication for potassium replacement- start on once a day supplement and recheck labs as ordered. rx sent to pharmacy Had otherwise normal negative CXR and work up at [facility] EMERGENCY DEPARTMENT - VITAMIN B12 - VITAMIN D 25 HYDROXY 5. Inflammatory arthritis - ICD9: 714.9, ICD10: M19.90 Continue plaquenil, f/u with [facility] Hammerer 6. Bilateral leg edema - ICD9: 782.3, ICD10: R60.0 She is taking lasix which is causing the hypokalemia but keeping edema controlled She is starting on potassium supplement 7. Situational depression - ICD9: 309.0, ICD10: F43.21 Stable Add on B complex Consider therapy 8. Obesity, Class I, BMI 30-34.9 - ICD9: [...] your calories and exercise as well. Continue medication for weight loss rx refilled. Hilton Doty DO To ER if develops chest pain, shortness of breath, or severe worsening of symptoms. Discussed risks, benefits, alternatives, and potential side effects of medications. Patient expressed understanding and agreed with the plan. Hilton Doty DO [address] [place] [address] documented in this encounterKeen[facility]08-30-[facility]24 Telephone encounter Note * Telephone Encounter - Anna Sheikh APRN.CNP - 04/01/2024 11:11 AM EDT The following approved medication requests have been transmitted electronically. Requested Prescriptions Signed Prescriptions Disp Refills hydrOXYchloroQUINE (PLAQUENIL) 200 mg tablet 90 tablet 0 Sig: Take 1 tablet by mouth once daily. Authorizing Provider: ANNA SHEIKH chlorthalidone (HYGROTON) 25 mg tablet 30 tablet 5 Sig: Take 1 tablet by mouth once daily. As needed for edema Authorizing Provider: ANNA SHEIKH LORazepam (ATIVAN) 0.5 mg 30 tablet 2 Sig: Take 1 tablet by mouth once daily as needed (anxiety attack) for up to 30 days. Authorizing Provider: ANNA SHEIKH APRN.CNP PDMP website checked and validated. All prescriptions have been APPROPRIATELY filled. No suspiciousactivity was identified. 04/01/2024 by Anna Sheikh CNP. [facility] Miscellaneous Notes* Telephone Encounter - Anna Sheikh APRN.CNP - 04/01/2024 11:11 AM EDT The following approved medication requests have been transmitted electronically. Requested Prescriptions Signed Prescriptions Disp Refills hydrOXYchloroQUINE (PLAQUENIL) 200 mg tablet 90 tablet 0 Sig: Take 1 tablet by mouth once daily. Authorizing Provider: ANNA SHEIKH chlorthalidone (HYGROTON) 25 mg tablet 30 tablet 5 Sig: Take 1 tablet by mouth once daily. As needed for edema Authorizing Provider: ANNA SHEIKH LORazepam (ATIVAN) 0.5 mg 30 tablet 2 Sig: Take 1 tablet by mouth once daily as needed (anxiety attack) for up to 30 days. Authorizing Provider: NANA SHEIKH APRN.CNP PDMP website checked and validated. All prescriptions have been APPROPRIATELY filled. No suspiciousactivity was identified. 04/01/2024 by Anna Sheikh CNP. * Telephone Encounter - Rox Knox LPN - 04/01/2024 9:54 AM EDT Prescription Refill Information The patient has been identified by name and date of : Yes Caregiver verified no other encounters exist for this prescription request: Yes Caregiver confirmed with patient/requestor that no other refills are due, in the near future, with this provider at this time: Yes The last office visit in the department: 02/08/24 Does the patient have a future office visit with this provider/department: Yes Requested Prescriptions Pending Prescriptions Disp Refills hydrOXYchloroQUINE (PLAQUENIL) 200 mg tablet 90 tablet 0 Sig: Take 1 tablet by mouth once daily. chlorthalidone (HYGROTON) 25 mg tablet 30 tablet 5 Sig: Take 1 tablet by mouth once daily. As needed for edema LORazepam (ATIVAN) 0.5 mg 30 tablet 2 Sig: Take 1 tablet by mouth once daily as needed (anxiety attack) for up to 30 days. Rox Knox LPN April 01, 2024 9:54 AM * Telephone Encounter - July Morse - 04/01/2024 9:41 AM EDT Patient is also asking for a refill of lorazepam; not on current med list. Please review and add to refill request if appropriate. * Telephone Encounter - July Morse - 04/01/2024 9:40 AM EDT Prescription Refill Information The patient has been identified by name and date of : Yes Caregiver verified no other encounters exist for this prescription request: Yes Caregiver confirmed with patient/requestor that no other refills are due, in the near future, with this provider at this time: Yes The last office visit in the department: 02/08/24 Does the patient have a future office visit with this provider/department: Yes Requested Prescriptions Pending Prescriptions Disp Refills hydrOXYchloroQUINE (PLAQUENIL) 200 mg tablet 90 tablet 0 Sig: Take 1 tablet by mouth once daily. chlorthalidone (HYGROTON) 25 mg tablet 30 tablet 5 Sig: Take 1 tablet by mouth once daily. As needed for edema July Garcia April 01, 2024 9:40 AM [facility] Telephone encounter Note * Telephone Encounter - Rox Knox LPN - 04/01/2024 9:54 AM EDT Prescription Refill Information The patient has been identified by name and date of : Yes Caregiver verified no other encounters exist for this prescription request: Yes Caregiver confirmed with patient/requestor that no other refills are due, in the near future, with this provider at this time: Yes The last office visit in the department: 02/08/24 Does the patient have a future office visit with this provider/department: Yes Requested Prescriptions Pending Prescriptions Disp Refills hydrOXYchloroQUINE (PLAQUENIL) 200 mg tablet 90 tablet 0 Sig: Take 1 tablet by mouth once daily. chlorthalidone (HYGROTON) 25 mg tablet 30 tablet 5 Sig: Take 1 tablet by mouth once daily. As needed for edema LORazepam (ATIVAN) 0.5 mg 30 tablet 2 Sig: Take 1 tablet by mouth once daily as needed (anxiety attack) for up to 30 days. Rox Knox LPN April 01, 2024 9:54 AM [facility] Telephone encounter Note* Telephone Encounter - July Morse - 04/01/2024 9:41 AM EDT Patient is also asking for a refill of lorazepam; not on current med list. Please review and add to refill request if appropriate. [facility] Telephone encounter Note* Telephone Encounter - AdarshJuly Aguilar - 04/01/2024 9:40 AM EDT Prescription Refill Information The patient has been identified by name and date of : Yes Caregiver verified no other encounters exist for this prescription request: Yes Caregiver confirmed with patient/requestor that no other refills are due, in the near future, with this provider at this time: Yes The last office visit in the department: 02/08/24 Does the patient have a future office visit with this provider/department: Yes Requested Prescriptions Pending Prescriptions Disp Refills hydrOXYchloroQUINE (PLAQUENIL) 200 mg tablet 90 tablet 0 Sig: Take 1 tablet by mouth once daily. chlorthalidone (HYGROTON) 25 mg tablet 30 tablet 5 Sig: Take 1 tablet by mouth once daily. As needed for edema July Altamirano Radha April 01, 2024 9:40 AM [facility] Telephone encounter Note* Telephone Encounter - Lois Rod MA - 03/17/2024 2:58 PM EDT Patient has been identified by name and date of : Yes, Provider Doty Date 03/17/2024 Time 259pm Patient phones for refill(s): Requested Prescriptions Pending Prescriptions Disp Refills buPROPion (WELLBUTRIN) 75 mg tablet 270 tablet 1 Sig: Take 2 tablets in the AM and 1 tablet in the afternoon Date of last office visit in primary care: 02/08/2024 Date of next office visit in primary care: 04/25/2024 Please advise. Thank you. Lois Rod MA. [facility] Miscellaneous Notes* Telephone Encounter - Lois Rod MA - 03/17/2024 2:58 PM EDT Patient has been identified by name and date of : Yes, Provider Doty Date 03/17/2024 Time 259pm Patient phones for refill(s): Requested Prescriptions Pending Prescriptions Disp Refills buPROPion (WELLBUTRIN) 75 mg tablet 270 tablet 1 Sig: Take 2 tablets in the AM and 1 tablet in the afternoon Date of last office visit in primary care: 02/08/2024 Date of next office visit in primary care: 04/25/2024 Please advise. Thank you. Lois Rod MA. documented in [facility]Ke[facility] History of Present illness Narrative* Dominik Ludwig RT(R) - 02/08/2024 4:40 PM EDT Radiology Service Progress Note PATIENT NAME: Wanda Caal DATE OF SERVICE: February 08, 2024 TIME: 4:53 PM PATIENT IDENTITY VERIFICATION COMPLETED USING TWO (2) IDENTIFIERS: Name and Date of confirmedby patient verbally. FALL SCREENING: Has the patient had 2 falls in the last year or 1 fall with injury or currently using an Ambulatory Assistive Device (Walker, Cane, Wheelchair, Crutches, etc.)? No PATIENT GENDER DATA: Female. status: : No status: NO. PATIENT RELEVANT IMPLANT DATA REVIEWED: Yes PATIENT PRESENTS WITH AN IMPLANTABLE OR ATTACHED INFANT LEAD TEACHER: No RADIOLOGY DEPARTMENT: General X-ray: Exam(s) Completed: Spine X-Ray(s): Thoracic and Lumbar AP / LAT / L5-S1 PERIPHERAL IV DATA: Not applicable SIGNED BY: SUKHWINDER Harding) February 08, 2024 4:53 PM documented in this encounterKe[facility]07-[facility]-2024 NoteHNO ID: [id number] Author: DOMINIK LUDWIG RT(R) Service: Radiology Author Type: Technologist Type: Progress Notes Filed: 02/08/2024 17:05 Note Text: Radiology Service Progress Note PATIENT NAME: Wanda Caal DATE OF SERVICE: February 08, 2024 TIME: 4:53 PM PATIENT IDENTITY VERIFICATION COMPLETED USING TWO (2) IDENTIFIERS: Name and Date of confirmed by patient verbally. FALL SCREENING: Has the patient had 2 falls in the last year or 1 fall with injury or currently using an Ambulatory Assistive Device (Walker, Cane, Wheelchair, Crutches, etc.)? No PATIENT GENDER DATA: Female. status: : No status: NO. PATIENT RELEVANT IMPLANT DATA REVIEWED: Yes PATIENT PRESENTS WITH AN IMPLANTABLE OR ATTACHED INFANT LEAD TEACHER: No RADIOLOGY DEPARTMENT: General X-ray: Exam(s) Completed: Spine X-Ray(s): Thoracic and Lumbar AP / LAT / L5-S1 PERIPHERAL IV DATA: Not applicable SIGNED BY: RT Meaghan(R) February 08, 2024 4:53 [facility]07-08-2024 Instructions* Patient Instructions* Doris Driscoll APRN.CNS - 02/08/2024 4:34 PM EDT 1) Get X-rays today 2) Continue naproxen 3) Methocarbamol 500 mg 3 x day 4) Alternating heat 5) Keep April appt. documented in this encounterKe[facility]07-08-2024 NoteHNO ID: [id number] Author: DORIS DRISCOLL APRN.CNS Service: ? Author Type: Clinical Nurse Specialist Type: Progress Notes Filed: 02/08/2024 17:13 Note Text: This is a 44 year old female who presents today with: Patient presents with: ER F/U: [facility] 02/05/24 Fall HISTORY OF PRESENT ILLNESS: Wanda Caal is a 44 year old female. Patient presents with: ER F/U: [facility] 02/05/24 Fall Fell backwards off a 4 step ladder. Hit back of head. Caught up inside the ladder. Twisted. Lower thoracic spine is ecchymosis and then lower lumbar spine ecchymosis. Pain into buttocks. Right shoulder hurts. Icing it. Some intermittent headache. No blurred vision. Nauseated today but took nausea medication. (Zofran) Eyes feel sensitive. Head pressure. PAST MEDICAL HISTORY: PAST MEDICAL HISTORY Diagnosis Date MAXIM positive 09/2014 Inflammatory polyarthropathy (HCC) Kidney stone with stent Raynaud's disease PAST SURGICAL HISTORY Procedure Laterality Date [facility] (MISSED AB 1ST TRIMESTER) 2001 ESWL Right 05/08/2017 EXTRACTION, ERUPTED TOOTH OR EXPOSED ROOT (ELEVATION AND/OR FORCEPS REMOVAL) GALLBLADDER/EF TUBAL LIGATION HX 2005 ALLERGIES Penicillins MEDICATIONS Current Outpatient Medications Medication Sig LORazepam (ATIVAN) 0.5 mg Take 1 tablet by mouth once daily as needed (anxiety attack) for up to 30 days. phentermine-topiramate ER (QSYMIA) 11.25-69 mg 24 Hr Capsule Take 1 capsule by mouth once daily for 90 days. BMI 31.32 traZODone (DESYREL) 50 mg tablet Take 1-2 tablets by mouth daily at bedtime. hydrOXYchloroQUINE (PLAQUENIL) 200 mg tablet Take 1 tablet by mouth once daily. chlorthalidone (HYGROTON) 25 mg tablet Take 1 tablet by mouth once daily. As needed for edema naproxen (NAPROSYN) 500 mg tablet Take 1 tablet by mouth two times a day as needed (for pain/inflammation). Take with food. buPROPion (WELLBUTRIN) 75 mg tablet Take 2 tablets in the AM and 1 tablet in the afternoon Cholecalciferol, Vitamin D3, 2,000 unit cap Take 2 tablets by mouth once daily. metroNIDAZOLE 0.75 % cream Apply to affected area two times a day. hydrocortisone 2.5 % cream Apply 1 application to affected area two times a day as needed (hemorrhoids). Location: hemorrhoids furosemide (LASIX) 20 mg tablet Take 0.5-1 tablets by mouth daily with breakfast. No current facility-administered medications for this visit. FAMILY HISTORY Problem Relation Age of Onset Alcohol/Drug Father Breast Cancer Maternal Grandmother Hypertension Maternal Grandmother Cancer Paternal Grandmother Breast Cancer Paternal Aunt x2 Cancer Paternal Aunt bone Social History Tobacco Use Smoking status: Never Smokeless tobacco: Never Vaping Use Vaping Use: Never used Substance Use Topics Alcohol use: Yes Comment: occ Drug use: No EXAM: BP 108/64 Pulse 64 Resp 16 Wt 89.8 kg (198 lb) LMP 12/29/2020 SpO2 99% BMI 31.01 kg/m? ANXIETY/DEPRESSION VISIT CC: Wanda Caal is a 44 year old female presents for depression and anxiety Subjective Symptoms started 8 month(s) ago and are ongoing. Current symptoms include: depressed mood and anxious feelings Previous treatments include: working with PCP Family History: Addressed by PCP Reviewed: problem list ALLERGIES Allergen Reactions Penicillins Unknown Medications: LORazepam (ATIVAN) 0.5 mg Take 1 tablet by mouth once daily as needed (anxiety attack) for up to 30 days. phentermine-topiramate ER (QSYMIA) 11.25-69 mg 24 Hr Capsule Take 1 capsule by mouth once daily for 90 days. BMI 31.32 traZODone (DESYREL) 50 mg tablet Take 1-2 tablets by mouth daily at bedtime. hydrOXYchloroQUINE (PLAQUENIL) 200 mg tablet Take 1 tablet by mouth once daily. chlorthalidone (HYGROTON) 25 mg tablet Take 1 tablet by mouth once daily. As needed for edema naproxen (NAPROSYN) 500 mg tablet Take 1 tablet by mouth two times a day as needed (for pain/inflammation). Take with food. buPROPion (WELLBUTRIN) 75 mg tablet Take 2 tablets in the AM and 1 tablet in the afternoon Cholecalciferol, Vitamin D3, 2,000 unit cap Take 2 tablets by mouth once daily. metroNIDAZOLE 0.75 % cream Apply to affected area two times a day. hydrocortisone 2.5 % cream Apply 1 application to affected area two times a day as needed (hemorrhoids). Location: hemorrhoids furosemide (LASIX) 20 mg tablet Take 0.5-1 tablets by mouth daily with breakfast. Objective Physical Exam BP 108/64 Pulse 64 Resp 16 Wt 89.8 kg (198 lb) LMP 12/29/2020 SpO2 99% BMI 31.01 kg/m? ER read: Notes hit her head then bounced onto her right side. No loss of consciousness. Shoulder x-ray showed calcific tendinitis of the right shoulder Lab work was done. Patient was sent home on naproxen 500 mg twice daily for 10 days and Zofran 4 mg every 8 hours x 10 tablets PSYCH: Well-appearing, no acute distress. Behaves appropriately during the encounter. Affect (more content not included)...[facility]07-08-2024 History of Present illness Narrative* Doris Driscoll APRN.WINDSHIELD REPAIR TECHNICIAN - 02/08/2024 4:09 PM EDT This is a 44 year old female who presents today with: Patient presents with: ER F/U: [facility] 02/05/24 Fall HISTORY OF PRESENT ILLNESS: Wanda Caal is a 44 year old female. Patient presents with: ER F/U: [facility] 02/05/24 Fall Fell backwards off a 4 step ladder. Hit back of head. Caught up inside the ladder. Twisted. Lower thoracic spine is ecchymosis and then lower lumbar spine ecchymosis. Pain into buttocks. Right shoulder hurts. Icing it. Some intermittent headache. No blurred vision. Nauseated today but took nausea medication. (Zofran) Eyes feel sensitive. Head pressure. PAST MEDICAL HISTORY: PAST MEDICAL HISTORY Diagnosis Date MAXIM positive 09/2014 Inflammatory polyarthropathy (HCC) Kidney stone with stent Raynaud's disease PAST SURGICAL HISTORY Procedure Laterality Date [facility] (MISSED AB 1ST TRIMESTER) 2001 ESWL Right 05/08/2017 EXTRACTION, ERUPTED TOOTH OR EXPOSED ROOT (ELEVATION AND/OR FORCEPS REMOVAL) GALLBLADDER/EF TUBAL LIGATION HX 2005 ALLERGIES Penicillins MEDICATIONS Current Outpatient Medications Medication Sig LORazepam (ATIVAN) 0.5 mg Take 1 tablet by mouth once daily as needed (anxiety attack) for up to 30days. phentermine-topiramate ER (QSYMIA) 11.25-69 mg 24 Hr Capsule Take 1 capsule by mouth once daily for90 days. BMI 31.32 traZODone (DESYREL) 50 mg tablet Take 1-2 tablets by mouth daily at bedtime. hydrOXYchloroQUINE (PLAQUENIL) 200 mg tablet Take 1 tablet by mouth once daily. chlorthalidone (HYGROTON) 25 mg tablet Take 1 tablet by mouth once daily. As needed for edema naproxen (NAPROSYN) 500 mg tablet Take 1 tablet by mouth two times a day as needed (for pain/inflammation). Take with food. buPROPion (WELLBUTRIN) 75 mg tablet Take 2 tablets in the AM and 1 tablet in the afternoon Cholecalciferol, Vitamin D3, 2,000 unit cap Take 2 tablets by mouth once daily. metroNIDAZOLE 0.75 % cream Apply to affected area two times a day. hydrocortisone 2.5 % cream Apply 1 application to affected area two times a day as needed (hemorrhoids). Location: hemorrhoids furosemide (LASIX) 20 mg tablet Take 0.5-1 tablets by mouth daily with breakfast. No current facility-administered medications for this visit. FAMILY HISTORY Problem Relation Age of Onset Alcohol/Drug Father Breast Cancer Maternal Grandmother Hypertension Maternal Grandmother Cancer Paternal Grandmother Breast Cancer Paternal Aunt x2 Cancer Paternal Aunt bone Social History Tobacco Use Smoking status: Never Smokeless tobacco: Never Vaping Use Vaping Use: Never used Substance Use Topics Alcohol use: Yes Comment: occ Drug use: No EXAM: BP 108/64 Pulse 64 Resp 16 Wt 89.8 kg (198 lb) LMP 12/29/2020 SpO2 99% BMI 31.01 kg/m ANXIETY/DEPRESSION VISIT CC: Wanda Caal is a 44 year old female presents for depression and anxiety Subjective Symptoms started 8 month(s) ago and are ongoing. Current symptoms include: depressed mood and anxious feelings Previous treatments include: working with PCP Family History: Addressed by PCP Reviewed: problem list ALLERGIES Allergen Reactions Penicillins Unknown Medications: LORazepam (ATIVAN) 0.5 mg Take 1 tablet by mouth once daily as needed (anxiety attack) for up to 30days. phentermine-topiramate ER (QSYMIA) 11.25-69 mg 24 Hr Capsule Take 1 capsule by mouth once daily for90 days. BMI 31.32 traZODone (DESYREL) 50 mg tablet Take 1-2 tablets by mouth daily at bedtime. hydrOXYchloroQUINE (PLAQUENIL) 200 mg tablet Take 1 tablet by mouth once daily. chlorthalidone (HYGROTON) 25 mg tablet Take 1 tablet by mouth once daily. As needed for edema naproxen (NAPROSYN) 500 mg tablet Take 1 tablet by mouth two times a day as needed (for pain/inflammation). Take with food. buPROPion (WELLBUTRIN) 75 mg tablet Take 2 tablets in the AM and 1 tablet in the afternoon Cholecalciferol, Vitamin D3, 2,000 unit cap Take 2 tablets by mouth once daily. metroNIDAZOLE 0.75 % cream Apply to affected area two times a day. hydrocortisone 2.5 % cream Apply 1 application to affected area two times a day as needed (hemorrhoids). Location: hemorrhoids furosemide (LASIX) 20 mg tablet Take 0.5-1 tablets by mouth daily with breakfast. Objective Physical Exam BP 108/64 Pulse 64 Resp 16 Wt 89.8 kg (198 lb) LMP 12/29/2020 SpO2 99% BMI 31.01 kg/m ER read: Notes hit her head then bounced onto her right side. No loss of consciousness. Shoulder x-ray showed calcific tendinitis of the right shoulder Lab work was done. Patient was sent home on naproxen 500 mg twice daily for 10 days and Zofran 4 mgevery 8 hours x 10 tablets PSYCH: Well-appearing, no acute distress. Behaves appropriately during the encounter. Affect full and appropriate to topic. Normal speech and thought process. Good insight and judgement. Exam Thoracic ecchymosis. Small 50 cent piece area on lower thoracic area. No palpable tenderness Lumbar palpable tenderness to even light tenderness L3-5. Dependent ecchymosis. Pain radiating into buttocks. Able to ambulate without difficulty Assessment & Plan (M54.6) Lower thoracic back pain (primary encounter diagnosis) (M54.40) Acute low back pain with sciatica, sciatica laterality unspecified, unspecified back pain laterality - Working with PCP for anxiety ASSESSMENT/PLAN: 1. Lower thoracic back pain - ICD9: 724.1, ICD10: M54.6 (primary diagnosis) Sciatica - Ice for localized tenderness - XR THORACIC GENERAL 3V AP/LAT/SWIMMERS - XR LUMBAR GENERAL 3V AP/LAT/L5-S1 - Continue naproxen - Methocarbamol 500 mg 3 x day as needed 2. Acute low back pain with sciatica, sciatica laterality unspecified, unspecified back pain laterality - ICD9: 724.2, 724.3, ICD10: M54.40 Sciatica - Ice for localized tenderness - XR THORACIC GENERAL 3V AP/LAT/SWIMMERS - XR LUMBAR GENERAL 3V AP/LAT/L5-S1 Discussed treatment plan and patient voices understanding. Patient's questions answered appropriately. Medications and potential side effects were discussed and patient voices understanding. Return to the office as scheduled or as needed for worsening/no improvement. LIBRADO Whiting/ PUBLISHING EDITOR documented in this encounterKeenan [facility]06-24-2024 NoteHNO ID: [id number] Author: HILTON DOTY, DO Service: ? Author Type: Physician Type: Progress Notes Filed: 01/25/2024 07:51 Note Text: CC: Wanda Caal is a 43 year old female who presents to the office for follow up HPI: Inflammatory polyarthropathy, no signs of retinal concerns for her plaquenil monitoring. states had dilated eye exam by Dr. Genao in May 2023 last, has this exam yearly. Doesn't currently have a Flat Hammerer since she needs to establish with a new provider. Needing rx refilled for her plaquenil Does feel that her mirena and perimenopause hormonal changes are bothering her off and on. She feels that her complains about her libido changes and she has some days that she is still irritable/easily upset and is emotional. Has support from her family. 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 Knows need for further weight loss. Is taking the qsymia and tolerating rx well. Would like to continue medication. Trying to continue healthy diet choices and exercise as well. she recently was able to see [facility] Filler at [facility] with benefit Mood, feels she is overall managing with the wellbutrin medication and prn use of Ativan. Needing rx refilled. No SI or HI. Trying to do things that give her shahbaz PAST MEDICAL HISTORY Diagnosis Date MAXIM positive 09/2014 Inflammatory polyarthropathy (HCC) Kidney stone with stent Raynaud's disease PAST SURGICAL HISTORY Procedure Laterality Date [facility] (MISSED AB 1ST TRIMESTER) 2001 ESWL Right [...] Cancer Paternal Aunt bone Current Outpatient prescriptions: LORazepam (ATIVAN) 0.5 mg Take 1 tablet by mouth once daily as needed (anxiety attack) for up to 30 days. phentermine-topiramate ER (QSYMIA) 11.25-69 mg 24 Hr Capsule Take 1 capsule by mouth once daily for 90 days. BMI 31.32 traZODone (DESYREL) 50 mg tablet Take 1-2 tablets by mouth daily at bedtime. hydrOXYchloroQUINE (PLAQUENIL) 200 mg tablet Take 1 tablet by mouth once daily. chlorthalidone (HYGROTON) 25 mg tablet Take 1 tablet by mouth once daily. As needed for edema metroNIDAZOLE 0.75 % cream Apply to affected area two times a day. hydrocortisone 2.5 % cream Apply 1 application to affected area two times a day as needed (hemorrhoids). Location: hemorrhoids naproxen (NAPROSYN) 500 mg tablet Take 1 tablet by mouth two times a day as needed (for pain/inflammation). Take with food. buPROPion (WELLBUTRIN) 75 mg tablet Take 2 tablets in the AM and 1 tablet in the afternoon furosemide (LASIX) 20 mg tablet Take 0.5-1 tablets by mouth daily with breakfast. levonorgestrel (MIRENA) 20 mcg/24 hours (5 yrs) 52 mg IUD 1 Each by INTRAUTERINE route as directed. Cholecalciferol, Vitamin D3, 2,000 unit cap Take 2 tablets by mouth once daily. Allergies: ALLERGIES Allergen Reactions Penicillins Unknown ROS: See HPI PE: 01/20/241910 BP: 100/60 Pulse: 60 Resp: 16 Temp: 36.1 ?C (97 ?F) TempSrc: Right Tympanic Weight: 87.1 kg (192 lb) Gen: AANDO, NAD, non-toxic appearing, Pleasant, cooperative HEENT: NT/AC, PERRLA, EOMs intact b/l, nares clear and patent b/l, pharynx without erythema, exudate or lesions. Uvula midline. MMM, EACs without erythema or debris. TMs pearly [...] 4 extremities Neuro: CN II-XII intact b/l, strength 5/5 b/l UE and LE, DTRs 2/4 UE and LE, sensation intact. No edema, normal pulses ASSESSMENT/PLAN: 1. Dyslipidemia - ICD9: 272.4, ICD10: E78.5 (primary diagnosis) - Control undetermined, due for labs - Continue current medications - Counseled on healthy diet and regular exercise - QSYMIA 11.25 MG-69 MG CAPSULE, EXTENDED RELEASE 2. LIVIA (generalized anxiety disorder) - ICD9: 300.02, ICD10: F41.1 rx refilled, chronic, stable - LORAZEPAM 0.5 MG TABLET 3. Inflammatory polyarthropathy (HCC) - ICD9: 714.9, ICD10: M06.4 rx refilled, she is continuing to work on weight loss. She is still in obesity b (more content not included)...[facility] History of Present illness Narrative* Hilton Doty, - 01/25/2024 7:35 AM EDT CC: Wanda Caal is a 43 year old female who presents to the office for follow up HPI: Inflammatory polyarthropathy, no signs of retinal concerns for her plaquenil monitoring. states haddilated eye exam by Dr. Genao in May 2023 last, has this exam yearly. Doesn't currently have a Flat Hammerer since she needs to establish with a new provider. Needing rx refilled for her plaquenil Does feel that her mirena and perimenopause hormonal changes are bothering her off and on. She feels that her complains about her libido changes and she has some days that she is still irritable/easily upset and is emotional. Has support from her family. 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 Knows need for further weight loss. Is taking the qsymia and tolerating rx well. Would like to continue medication. Trying to continue healthy diet choices and exercise as well. she recently was able to see [facility] Filler at [facility] with benefit Mood, feels she is overall managing with the wellbutrin medication and prn use of Ativan. Needing rx refilled. No SI or HI. Trying to do things that give her shahbaz PAST MEDICAL HISTORY Diagnosis Date MAXIM positive [...] Cancer Paternal Aunt bone Current Outpatient prescriptions: LORazepam (ATIVAN) 0.5 mg Take 1 tablet by mouth once daily as needed (anxiety attack) for up to 30days. phentermine-topiramate ER (QSYMIA) 11.25-69 mg 24 Hr Capsule Take 1 capsule by mouth once daily for90 days. BMI 31.32 traZODone (DESYREL) 50 mg tablet Take 1-2 tablets by mouth daily at bedtime. hydrOXYchloroQUINE (PLAQUENIL) 200 mg tablet Take 1 tablet by mouth once daily. chlorthalidone (HYGROTON) 25 mg tablet Take 1 tablet by mouth once daily. As needed for edema metroNIDAZOLE 0.75 % cream Apply to affected area two times a day. hydrocortisone 2.5 % cream Apply 1 application to affected area two times a day as needed (hemorrhoids). Location: hemorrhoids naproxen (NAPROSYN) 500 mg tablet Take 1 tablet by mouth two times a day as needed (for pain/inflammation). Take with food. buPROPion (WELLBUTRIN) 75 mg tablet Take 2 tablets in the AM and 1 tablet in the afternoon furosemide (LASIX) 20 mg tablet Take 0.5-1 tablets by mouth daily with breakfast. levonorgestrel (MIRENA) 20 mcg/24 hours (5 yrs) 52 mg IUD 1 Each by INTRAUTERINE route as directed. Cholecalciferol, Vitamin D3, 2,000 unit cap Take 2 tablets by mouth once daily. Allergies: ALLERGIES Allergen Reactions Penicillins Unknown ROS: See HPI PE: 01/20/24 1911 BP: 100/60 Pulse: 60 Resp: 16 Temp: 36.1 C (97 F) TempSrc: Right Tympanic Weight: 87.1 kg (192 lb) Gen: A&O, NAD, non-toxic appearing, Pleasant, cooperative HEENT: NT/AC, PERRLA, EOMs intact b/l, nares clear and patent b/l, pharynx without erythema, exudate or lesions. Uvula midline. MMM, EACs without erythema or debris. TMs pearly [...] 4 extremities Neuro: CN II-XII intact b/l, strength 5/5 b/l UE and LE, DTRs 2/4 UE and LE, sensation intact. No edema, normal pulses ASSESSMENT/PLAN: 1. Dyslipidemia - ICD9: 272.4, ICD10: E78.5 (primary diagnosis) - Control undetermined, due for labs - Continue current medications - Counseled on healthy diet and regular exercise - QSYMIA 11.25 MG-69 MG CAPSULE, EXTENDED RELEASE 2. LIVIA (generalized anxiety disorder) - ICD9: 300.02, ICD10: F41.1 rx refilled, chronic, stable - LORAZEPAM 0.5 MG TABLET 3. Inflammatory polyarthropathy (HCC) - ICD9: 714.9, ICD10: M06.4 rx refilled, she is continuing to work on weight loss. She is still in obesity but continues to work on dietary changes and exercise. - QSYMIA 11.25 MG-69 MG CAPSULE, EXTENDED RELEASE 4. Obesity, Class I, BMI 30-34.9 - ICD9: 278.00, ICD10: E66.9 See above - QSYMIA 11.25 MG-69 MG CAPSULE, EXTENDED RELEASE 5. Bilateral leg edema - ICD9: 782.3, ICD10: R60.0 stable 6. Vitamin D deficiency - ICD9: 268.9, ICD10: E55.9 Continue supplements 7. Situational depression - ICD9: 309.0, ICD10: F43.21 Stable, continue same medications Hilton Doty DO To ER if develops chest pain, shortness of breath, or severe worsening of symptoms. Discussed risks, benefits, alternatives, and potential side effects of medications. Patient expressed understanding and agreed with the plan. Hilton Doty DO [address] [place] [address] documented in this encounterKeenan [facility] Hospital06-19-2024 Instructions* Patient Instructions* Hilton Doty DO - 01/20/2024 7:37 PM EDT Magnesium citrate 400-500 mg in the evening documented in this encounterKeenan Private Hospital05-30-2024 Telephone encounter Note * Telephone Encounter - Rox Knox LPN - 12/31/2023 7:25 AM EDT [facility]-10/21/23 Labs-09/02/23Jun-01/20/24 Rox Knox LPN [facility]05-30[facility] Miscellaneous Notes* Telephone Encounter - Rox Knox LPN - 12/31/2023 7:25 AM EDT [facility]-10/21/23 Labs-09/02/23Jun-01/20/24 Rox Knox LPN documented in this encounterKeenan Private Hospital05-30-2024 Telephone encounter Note * Telephone Encounter - Rox Knox LPN - 12/31/2023 7:24 AM EDT [facility]-10/21/23 Labs-09/02/23Jun-01/20/24 Rox Knox LPN [facility]-30[facility] Miscellaneous Notes* Telephone Encounter - Rox Knox LPN - 12/31/2023 7:24 AM EDT [facility]-10/21/23 Labs-09/02/23Jun-01/20/24 Rox Knox LPN documented in this encounterKeenan Private Hospital05-30-2024 Telephone encounter Note * Telephone Encounter - Rox Knox LPN - 12/31/2023 7:23 AM EDT [facility]-10/21/23 Labs-09/02/23Jun-01/20/24 Rox Knox LPN [facility]-30-[facility] Miscellaneous Notes* Telephone Encounter - Rox Knox LPN - 12/31/2023 7:23 AM EDT [facility]-10/21/23 Labs-09/02/23Jun-01/20/24 Rox Knox LPN documented in this encounterKeenan Private Hospital03-21-2024 Miscellaneous Notes* Telephone Encounter - Ariana Schwarz Ma - 10/22/2023 9:44 AM EDT Orders/Referrals updated in Epic for [facility]. Referral to [facility] Nutrition faxed to [phone]. Sent most recent OV notes, referral and facesheet. Mamm/US order faxed to [facility] at [phone] with facesheet. Pt sent Haptik message notifying her that this this has been completed. Made pt aware she would need to contact [facility] to setup Imaging, but Nutrition should contact her to setup appt. To update officeif any issues. Ariana Schwarz Ma * Telephone Encounter - Hilton Doty DO - 10/21/2023 9:17 PM EDT Please fax orders to [facility] for breast US, mammogram as well as nutrition referral. These were ordered today Hilton Doty DO documented in this encounterKeenan Private Hospital03-20-2024 History of Present illness Narrative* Hilton Doty DO - 10/21/2023 9:09 PM EDT CC: Wanda Caal is a 43 year old female who presents to the office for follow up HPI: Inflammatory polyarthropathy, no signs of retinal concerns for her plaquenil monitoring. states haddilated eye exam by Dr. Genao in May 2023 Does feel that her mirena and perimenopause hormonal changes are bothering her. She feels that her complains about her libido changes and she has some days that she is still irritable/easily upset and is emotional. Has support from her family. Still also getting used to a new job at [employer] over the last 7-8 months as well. Had abnormal mammogram right breast, had to get ultrasound of right breast which determined the area was a benign cyst without concerns. This added to her anxiety symptoms. Knows needs this testing repeated. Obesity, weight at 198 lbs. Knows need for further weight loss. Is taking the qsymia and toleratingrx well. Would like to continue medication. Trying to continue healthy diet choices and exercise aswell. would also be interested in seeing Grease Cup Filler at [facility] PAST MEDICAL HISTORY Diagnosis Date MAXIM positive [...] mouth once daily. As needed for edema traZODone (DESYREL) 50 mg tablet Take 1-2 tablets by mouth daily at bedtime. hydrOXYchloroQUINE (PLAQUENIL) 200 mg tablet Take 1 tablet by mouth once daily. phentermine-topiramate ER (QSYMIA) 11.25-69 mg 24 Hr Capsule Take 1 capsule by mouth once daily for90 days. BMI 31.32 naproxen (NAPROSYN) 500 mg tablet Take 1 tablet by mouth two times a day as needed (for pain/inflammation). Take with food. buPROPion (WELLBUTRIN) 75 mg tablet Take 2 tablets in the AM and 1 tablet in the afternoon furosemide (LASIX) 20 mg tablet Take 0.5-1 tablets by mouth daily with breakfast. levonorgestrel (MIRENA) 20 mcg/24 hours (5 yrs) 52 mg IUD 1 Each by INTRAUTERINE route as directed. Cholecalciferol, Vitamin D3, 2,000 unit cap Take 2 tablets by mouth once daily. metroNIDAZOLE 0.75 % cream Apply to affected area two times a day. No current facility-administered medications for this visit. ALLERGIES Allergen Reactions Penicillins Unknown Social History Tobacco Use Smoking status: Never Smokeless tobacco: Never Vaping Use Vaping Use: Never used Substance Use Topics Alcohol use: Yes Comment: occ Drug use: No ROS: See HPI PE: BP 120/80 Pulse 80 Temp (Src) 97 (Right Tympanic) Resp 16 Wt 198 lb (89.8kg) LMP 12/29/2020 Gen: A&O, NAD, non-toxic appearing, well dressed, tearful in office today, cooperative HEENT: NT/AC, PERRLA, EOMs intact b/l, [...] 4 extremities Neuro: CN II-XII intact b/l, strength 5/5 b/l UE and LE, DTRs 2/4 UE and LE, sensation intact. Skin: warm, dry, intact, dermatitis/papular rash on cheeks and periocular ASSESSMENT/PLAN: 1. Abnormal mammogram of right breast - ICD9: 793.80, ICD10: R92.8 (primary diagnosis) Need for repeat mammogram and US breast 6 months from previous testing - [facility] DIAGNOSTIC RIGHT - US BREAST LTD RIGHT 2. Inflammatory polyarthropathy (HCC) - ICD9: 714.9, ICD10: M06.4 Continue plaquenil, continue to monitor medication with labs every 3 months. She has no new changesin symptoms. Continue yearly eye exam by specialist. - CONSULT TO NUTRITION THERAPY 3. Obesity, Class I, BMI 30-34.9 - [...] your calories and exercise as well. Continue Qsymia - CONSULT TO NUTRITION THERAPY 4. Inflammatory arthritis - ICD9: 714.9, ICD10: M19.90Continue plaquenil, continue to monitor medication with labs every 3 months. She has no new changes in symptoms. 5. Dyslipidemia - ICD9: 272.4, ICD10: E78.5 - Control undetermined, due for labs - Counseled on healthy diet and regular exercise - Discussed need for and benefit of weight loss. BMI 31.01 kg/(m^2) 6. LIVIA (generalized anxiety disorder) - ICD9: 300.02, ICD10: F41.1 Stable, continue wellbutrin 7. Raynaud's phenomenon without gangrene - ICD9: 443.0, ICD10: I73.00 stable 8. Vitamin D deficiency - ICD9: 268.9, ICD10: E55.9 Continue supplement 9. Rosacea - ICD9: 695.3, ICD10: L71.9 rx as below, if not improved then needs to see Derm - METRONIDAZOLE 0.75 % TOPICAL CREAM Hilton Doty DO Return if no improvement. Follow up with Hilton Doty DO. To ER if develops chest pain, shortness of breath. Discussed risks, benefits, alternatives, and potential side effects of medications. Patient/Guardian expressed understanding and agreed with the plan. See patient instructions. Hilton Doty DO [address] [place] [address] documented in this encounterKeenan Private Hospital03-04-2024 Miscellaneous Notes* Telephone Encounter - Leo Méndez APRN.CNP - 10/05/2023 2:36 PM EST I called and spoke with Dr. Genao. She stated she did not contact our office. Advised that her lastHCQ eye exam was normal and patient can continue HCQ. Leo Méndez APRN.FEI * Telephone Encounter - Norma Aburto - 10/05/2023 12:[address] Priscilla Genao's office called to speak with Dr. Conner regarding the patients eye exam and plaquenil. Please call [phone] documented in this encounterKeenan Private Hospital02-13-2024 Miscellaneous Notes* Telephone Encounter - July Beaver LPN - 09/15/2023 4:18 PM EST Pt. informed. * Telephone Encounter - Hilton Doty DO - 09/15/2023 3:56 PM EST I think her risk of urinary incontinence will be less if she is able to maintain some of her pelvc floor anatomy. Otherwise would just need to consider pelvic floor therapy to keep the muscles in thepelvic area strong to avoid incontinence Hilton Doty DO * Telephone Encounter - Ngoc Ervin RN - 09/14/2023 4:11 PM EST Patient calling and states she is trying to make a decision on whether to go forward with a hysterectomy (partial or complete) and is seeking input from Rheumatology, and now Dr. Doty, as it relates to Lupus. Patient's BOWSTRING MAKER mentioned to her that patients with Lupus have experienced side effects from the surgery where they leak all the time. She does not know if, because she is in remission from Lupus, she should or shouldn't be concerned about the side effect mentioned above. She is looking for advice in order to make an informed decision. Please note Rheumatology telephone encounter from today as well. Please advise patient. Thank you. documented in this encounterKeenan Private Hospital02-13-2024 Nurse Note* Rodolfo Salas MA - 09/15/2023 8:28 AM EST PLQ eye exam done on 05/26/2023. No evidence of PLQ toxicity. Report sent for scanning. Rodolfo Salas MA documented in this encounterKeenan Private Hospital02-12-2024 Miscellaneous Notes* Telephone Encounter - Rodolfo Salas MA - 09/14/2023 3:41 PM EST Patient has been notified of message below and verbalized understanding. Rodolfo Salas MA * Telephone Encounter - Leo Méndez APRN.CNP - 09/14/2023 3:36 PM EST Please advise the patient that her diagnosis is inflammatory arthritis, not lupus. From a Rheumatologic perspective, there is no contraindication to her having a hysterectomy. She should discuss whether to pursue a hysterectomy further with her BOWSTRING MAKER. Thanks, Leo Méndez APRN.HOME CARE ADMINISTRATOR * Telephone Encounter - Jo-Ann Roque - 09/14/2023 3:06 PM EST Patient has been plagued by female issues. She is at a point where she needs to make a decision on whether to go forward with hysterectomy (partial or complete) and is seeking input from Dr Conner as it relates to Lupus. Patient's BOWSTRING MAKER mentioned to her that patients with Lupus have experienced side effects from the surgery where they leak all the time. She does not know if, because she is in remission from Lupus, she should or shouldn't be concerned about the side effect mentioned above. She is looking for advice in order to make an informed decision. She's wondering if there is anything that her previous doctormay have warned about (information sent January 2018). Please consider and assist. As an aside, patient is contacting her eye doctor once again to have results faxed. documented in this encounterKeenan [facility] Hospital02-01-2024 Nurse Note* Rodolfo Salas MA - 09/03/2023 9:36 AM EST Labs done on 09/02/2023. Report given to provider for review. TEST RESULTS RANGE WBC 8.7 4.4-11.0 HGB 14.7 12.0-15.0 HCT 44.5 37-47 PLT 301 150-450 AST 12 15-37 ALT 28 13-56 CR 0.90 0.55-1.02 documented in this encounterKeenan Private Hospital01-10-2024 NotePap Smear Specimen AdequacyJanuary 2023 1:46pmComment.Satisfactory for evaluation. Endocervical and/or squamous metaplasticcells (endocervical component)are present.[facility] INTER[facility]ACED A#[id number] Hospitals Geauga Medical CenterComment on above: Satisfactory for evaluation. Endocervical and/or squamous metaplasticcells (endocervical component)are present.08-12-2023 NotePap Smear Specimen Adequacy August 12, 2023 1:46pmComment.Satisfactory for evaluation. Endocervical and/or squamous metaplasticcells (endocervical component)are present.[facility] INTER[facility]ACED A#[id number] Hospitals Geauga Medical CenterComment on above:Satisfactory for evaluation. Endocervical and/or squamous metaplasticcells (endocervical component)are present.08-12-2023 NotePap Smear Specimen AdequacyJan2023 2:46pmComment.Satisfactory for evaluation. Endocervical and/or squamous metaplasticcells (endocervical component)are present.[facility] INTERFACED A#[id number] Hospitals Geauga Medical CenterComjohn d. dingell [facility] on above:Satisfactory for evaluation. Endocervical and/or squamous metaplasticcells (endocervical component)are present.07-10-2023 Miscellaneous Notes* Telephone Encounter - Jaja Motley MA - 07/10/2023 12:54 PM EST Patient has been identified by name and date of : Yes RX INSTRUCTIONS: Patient aware RX will be sent to pharmacy. No need to notify patient. PLQ eye exam done on 05/20/2022 at [facility]. No evidence of PLQtoxicity. Patient is notified to have PLQ eye exam done EROS and verbalized understanding. Fax results to [phone]. LAST APPOINTMENT: 08/28/2022 UPCOMING APPOINTMENT: 09/02/2023 LABS: [...] results found for: URICACID Jaja Motley MA * Telephone Encounter - Norma Aburto - 07/10/2023 12:21 PM EST Patient has been identified by name and date of : Yes Requested Prescriptions Pending Prescriptions Disp Refills hydrOXYchloroQUINE (PLAQUENIL) 200 mg tablet 90 tablet 0 Sig: Take 1 tablet by mouth once daily. RX INSTRUCTIONS: Patient aware RX will be sent to pharmacy. No need to notify patient. Norma Garcia documented in this encounterKeenan Private Hospital11-14-2023 Miscellaneous Notes* Telephone Encounter - Rox Villarreal RN - 06/16/2023 8:50 AM EST Pt called and given results and Dr. Doty's information. * Telephone Encounter - Lissa Cedillo RN - 06/16/2023 8:41 AM EST Called and left a voicemail for the Patient to call back and ask for a nurse to receive the providers message. Lissa Cedillo RN * Telephone Encounter - Hilton Doty DO - 06/15/2023 4:45 PM EST Please inform patient that the breast US from the hospital is showing the radiologist states this is a benign cyst. No further concerns and no need for biopsy of the right breast Hilton L Doty, DO * Telephone Encounter - Winnie Monge LPN - 06/15/2023 4:22 PM EST Pt is calling to see if pcp was able to view mammogram and US results. Pt reports she is trying to be calm but is having a hard time not to be nervous. Winnie Monge LPN documented in this encounterKeenan Private Hospital11-01-2023 History of Present illness Narrative* Hilton Doty DO - 06/03/2023 6:32 PM EDT CC: Wanda Caal is a 43 year old female who presents to the office for follow up HPI: Recently had eye examination and recently received bifocal change for visual adjustment. Had been having a lot of eye strain and fatigue symptoms. Was seen by Dr. Genao. Just had this diagnosis givenlast week. Inflammatory polyarthropathy, no signs of retinal concerns for her plaquenil monitoring. Still getting some cold symptoms with hands and then flushing in her cheeks- worse when anxious or tired or when temp is cold at night. Does feel that her mirena and perimenopause hormonal changes are bothering her. She feels that her complains about her libido changes and she has some days that she is still irritable/easily upset and is emotional. Has support from her family. Still also getting used to a new job at [employer] as well. Obesity, weight at 200 lbs. Knows need for further weight loss. Is taking the qsymia and toleratingrx well. Would like to continue medication. Trying to continue healthy diet choices and exercise aswell. PAST MEDICAL HISTORY Diagnosis Date MAXIM positive [...] 1 application to affected area once daily. Location:rosacea naproxen (NAPROSYN) 500 mg tablet Take 1 [...] nares without drainage, pharynx without erythema, exudate, lesions,or drainage. Uvula midline. Neck: No LAD, no [...] with supplements or by diet (goal of 3381-1712 mg/day - [facility] SCREENING 8. Dyslipidemia - ICD9: 272.4, ICD10: [...] I83.813 - CONSULT TO VASCULAR SURGERY Hilton Doty DO Return if no improvement. Follow up with Hilton Doty DO. To ER if develops chest pain, shortness of breath. Discussed risks, benefits, alternatives, and potential side effects of medications. Patient/Guardian expressed understanding and agreed with the plan. See patient instructions. Hilton Doty DO [address] [place] [address] documented in this encounterKeenan Private Hospital10-02-2023 Miscellaneous Notes* Telephone Encounter - Huma Winston LPN - 05/04/2023 1:39 PM EDT Monica--03/02/23 Nov--05/15/23 Last refill--12/22/22 180 with 1 refill Last labs--11/20/22 * Telephone Encounter - Ngoc Presley - 05/04/2023 12:15 PM EDT Patient has been identified by name and [...] and advise. Ngoc Garcia documented in this encounterKeenan Private Hospital09-12-2023 Miscellaneous Notes* Telephone Encounter - Rodolfo Salas MA - 04/14/2023 8:52 AM EDT Patient has been notified of message below and verbalized understanding. Rodolfo Salas MA * Telephone Encounter - Priscilla Junior MD - 04/14/2023 8:43 AM EDT Ok to give 90 day supply, she will be due for eye exam in July, no labs needed right now. Please let her know, thanks. * Telephone Encounter - Jo-Ann Roque - 04/13/2023 4:15 PM EDT Patient calling to advise that she has lost her insurance coverage for the remainder of this month.She cannot afford an uncovered appointment, [facility] $1000 already. She cancelled theappointment with Dr Junior on 04/16/23 for these reasons. She asks that her medication hydrOXYchloroQUINE (PLAQUENIL) 200 mg tablet be sent to [facility]. Patient has only 4 or 5 tablets left. She asked for a 90-day prescription. She expects to be insured May 03, 2023. She says that she is doing really well and that she checks in with her PCP regularly. Patient will reschedule when she know whether or not [facility] is in what will be her new insurance through [facility]. If Dr Junior requires that she have labs, patient said that she canget them done at [facility] at a reduced cost. Please assist. documented in this encounterKeenan Private Hospital09-01-2023 Miscellaneous Notes* Telephone Encounter - Frank Obando RN - 04/03/2023 12:38 PM EDT Patient has been identified by name and date of : Yes, Frank Obando RN Date 04/03/2023 Time 12:39 pm Patient [...] 18 04/16/2021 19 Please advise. Thank you. Frank Obando RN documented in this encounterKeenan Private Hospital08-01-2023 History of Present illness Narrative* Hilton Doty, DO - 03/03/2023 6:42 AM EDT CC: Wanda Caal is a 43 year old female [...] least 5,000-10,000 steps per day and has starteda work out routine at her home with an exercise bike which she is enjoying. Tolerating the Qsymia medication well- has missed a few days of the medication. She has had a lot of recent stress since last in the office 3 months ago. She is now working for [employer] and quit her previous job due to [...] of Wellbutrin during this transition time since itseems like she is slightly more depressed- no SI or HI. 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 Leg edema has improved, has diuretic to take as needed HPL, making diet changes as above and weight loss. Undifferentiated connective tissue disease, sicca syndrome, Inflammatory arthropathy, taking Plaquenil, will be following up with her Flat Hammerer. PAST MEDICAL HISTORY Diagnosis Date MAXIM positive [...] Take 1 capsule by mouth once daily for90 days. BMI 30 hydrOXYchloroQUINE (PLAQUENIL) 200 mg [...] 1 application to affected area once daily. Location:rosacea naproxen (NAPROSYN) 500 mg tablet Take 1 [...] nares without drainage, pharynx without erythema, exudate, lesions,or drainage. Uvula midline. Neck: No LAD, no [...] - ICD9: 714.9, ICD10: M06.4 F/u with [employer], chronic, stable. 3. Obesity, Class I, BMI [...] 268.9, ICD10: E55.9 Continue supplement, stable Hilton Doty DO Return if no improvement. Follow up with Hilton Doty DO. To ER if develops chest pain, shortness of breath Discussed risks, benefits, alternatives, and potential side effects of medications. Patient/Guardian expressed understanding and agreed with the plan. See patient instructions. Hilton Doty DO [address] [place] [address] documented in this encounterKeenan Private Hospital06-28-2023 Miscellaneous Notes* Telephone Encounter - July Beaver LPN - 01/28/2023 9:45 AM EDT Pt. informed Dr. Doty is on Vacation. Message left. * Telephone Encounter - Chikis Sánchez Pss - 01/27/2023 3:06 PM EDT Patient insurance is changing after February 07. Is there any way patient cn be squeezed in this week ornext? Please advise and call patient. documented in this encounterKeenan Private Hospital06-06-2023 Miscellaneous Notes* Telephone Encounter - Jaja Motley MA - 01/06/2023 11:39 AM EDT Patient has been identified by name and date of : Yes RX INSTRUCTIONS: Patient aware RX will be sent to pharmacy. No need to notify patient. PLQ eye exam done on 05/20/2022 at [facility]. No evidence of PLQtoxicity. LAST APPOINTMENT: 08/28/2022 UPCOMING APPOINTMENT: 04/16/2023 LABS: [...] results found for: URICACID Jaja Motley MA * Telephone Encounter - Sandi Williamson - 01/06/2023 11:25 AM EDT Patient called to request a refill on the medication(s) below. Physician's Name: Dr. Junior MEDICATION: Plaquenil DOSAGE: 200 mg FREQUENCY: take 1 tablet by mouth once daily #SUPPLY NEEDED: 30 day supply Patient states she stopped taking Norvasc because it made her sim red, her PCP advised to stop taking it. Script to go to [facility] mail order documented in this encounterKeenan Private Hospital04-27-2023 History of Present illness Narrative* Hilton Doty DO - 11/27/2022 9:32 AM EDT CC: Wanda Caal is a 42 year old female [...] months ago. 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 Undifferentiated connective tissue disease, sicca syndrome, Inflammatory arthropathy, taking Plaquenil, will be following up with her [employer]. PAST MEDICAL HISTORY Diagnosis Date MAXIM positive [...] Take 1 capsule by mouth once daily for90 days. BMI 30 hydrOXYchloroQUINE (PLAQUENIL) 200 mg tablet Take 1 tablet by mouth once daily. amLODIPine (NORVASC) 5 mg tablet Take 1 tablet by mouth once daily. chlorthalidone (HYGROTON) 25 mg tablet Take 1 tablet by mouth once daily. As needed for edema metroNIDAZOLE (METROGEL) 1 % Topical Gel Apply 1 application to affected area once daily. Location:rosacea naproxen (NAPROSYN) 500 mg tablet Take 1 [...] nares without drainage, pharynx without erythema, exudate, lesions,or drainage. Uvula midline. Neck: No LAD, no [...] - BUPROPION HCL 75 MG TABLET Hilton Doty DO Return if no improvement. Follow up with Hilton Doty DO. To ER if develops chest pain, shortness of breath Discussed risks, benefits, alternatives, and potential side effects of medications. Patient/Guardian expressed understanding and agreed with the plan. See patient instructions. Hilton Doty DO [address] [place] [address] documented in this encounterKe[facility]04-24-2023 Instructions* Patient Instructions* Hilton Doty DO - 11/24/2022 2:47 PM EDT Fresca soda Or Gingerale without sugar or Sprite PRIME drinks- strawberry watermelon is good documented in this encounterKeenan [facility] Hospital03-28-2023 History of Present illness Narrative* Hilton Doty DO - 10/28/2022 7:32 AM EDT CC: Wanda Caal is a 42 year old female [...] Tolerating the Qsymia medication well. She has hada lot of recent stress since last in the office 3 months ago. She is now working for [employer] and quit her previous job due to stressors with the work environment and not feeling appreciated and l istened to. She is adjusting to her new job and feels that she has had some difficulty figuring outher new routine with eating etc since she is doing this new job but is enjoying it Leg edema has improved, hasn't had to take her diuretic recently HPL, making diet changes as above and weight loss. Undifferentiated connective tissue disease, sicca syndrome, Inflammatory arthropathy, taking Plaquenil, will be following up with her [employer]. PAST MEDICAL HISTORY Diagnosis Date MAXIM positive [...] 1 application to affected area once daily. Location:rosacea buPROPion (WELLBUTRIN) 75 mg tablet Take 1 [...] Take 1 capsule by mouth once daily for90 days. BMI 30 furosemide (LASIX) 20 mg [...] nares without drainage, pharynx without erythema, exudate, lesions,or drainage. Uvula midline. Neck: No LAD, no [...] - ICD9: 782.3, ICD10: R60.0 stable Hilton Doty DO Return if no improvement. Follow up with Hilton Doty DO. To ER if develops chest pain, shortness of breath Discussed risks, benefits, alternatives, and potential side effects of medications. Patient/Guardian expressed understanding and agreed with the plan. See patient instructions. Hilton Doty DO [address] [place] [address] documented in this encounterKeenan [facility] Hospital03-24-2023 Instructions* Patient Instructions* Hilton Doty DO - 10/24/2022 12:17 PM EDT Magnesium supplement at supper 400-500 mg Can consider doing magnesium glycinate, magnesium gluconate supplement for the kind of magnesium documented in this encounterKeenan [facility] Hospital03-09-2023 Miscellaneous Notes* [facility] - 10/09/2022 10:48 AM EST Patient scheduled [facility] * Telephone Encounter - Hilton Doty DO - 10/08/2022 9:44 PM EST Please make patient follow up appt with me on 10/15 (Thursday) at 720 pm, she is aware of appt timeand date Hilton Doty DO documented in this encounterKeenan Private Hospital01-26-2023 Instructions* Patient Instructions* Priscilla Junior MD - 08/28/2022 12:25 PM [...] up in 6 months documented in this encounterKeenan Private Hospital01-26-2023 History of Present illness Narrative* Priscilla Junior MD - 08/28/2022 11:59 AM EST Images from the original note were not included. Rheumatology FOLLOW UP VISIT Date of Service: 08/28/2022 Patient: Wanda Caal Medical Record: [id number] Primary Care Physician: Hilton Doty DO Last Rheumatology visit: 02/01/2021 (with Leo Méndez) Chief Complaint: New Patient INTERVAL HISTORY Wanda Caal is a 42 year old White female with a history of dyslipidemia, varicose veins, vitamin D deficiency, rosacea, lower extremity edema who presents rheumatology clinic for follow-up of inflammatory arthritis. Chart review reveals she establish care with Dr. Conner 01/2018 for inflammatory polyarthralgias of the fingers, positive MAXIM, Raynaud's, and heat sensitive facial rash. 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 Shehas been maintained on hydroxychloroquine since that time. [...] or dryness over the area recently at somepoint. She has never seen dermatology. She continues [...] or mouth, photosensitivity, cough, congestion, chest pain, shortnessof breath, pleurisy, nausea, vomiting, abdominal pain, constipation, diarrhea, blood in her urine or stool, red hot swollen joints. She has had no ongoing issues in her knees. RHEUMATOLOGIC HISTORY She is currently taking hydroxychloroquine sulfate, naproxen. Wanda is both RF - 9 (02/05/2018) and [...] Take 1 capsule by mouth once daily for90 days. BMI 30 chlorthalidone (HYGROTON) 25 mg tablet Take 1 tablet by mouth once daily. As needed for edema metroNIDAZOLE (METROGEL) 1 % Topical Gel Apply 1 application to affected area once daily. Location:rosacea buPROPion (WELLBUTRIN) 75 mg tablet Take 1 [...] dactylitis, enthesitis, synovitis, tendinitis LABS Reviewed in [facility], notable for: CBC Latest Ref Rng [...] Latest Ref Rng & Units 09/19/2015 02/05/2018 MAXIM Negative - Negative MAXIM TITER Negative - Negative MAXIM PATTERN - - Not applicable for negative result. DNA ANTIBODY W/CONFIRMATION <30 IU/mL - <12 OVEN TENDER ANTIBODY <1.0 AI - 0.2 SSA ANTIBODY <1.0 AI - <0.2 SSB ANTIBODY <1.0 AI - 0.5 MELISSA-1 ANTIBODY, IGG <1.0 AI - <0.2 RIBOSOMAL OVEN TENDER <1.0 AI - <0.2 SM ANTIBODY <1.0 [...] Epic, notable for: No new imaging ASSESSMENT Wanda Caal is a 42 year old White [...] in antisynthetase syndrome. At this time her inflammatoryarthritis is under great control as is her [...] which included preparing to see the patient, [id number] patient care, completing clinical documentation, obtaining and/or reviewing separately obtained history, performing a medically appropriate examination, counseling and educating the pat ient/family/caregiver, and ordering medications, tests, or procedures. This note was partially generated with the assistance of 2Duc[employer] voice recognition software. An attempt was made to correct any dictation errors however there may be some incorrect words, spellings, and punctuation. Priscilla Junior MD Rheumatology Date: August 28, 2022 Time: 11:59 AM documented in this encounterKeenan Private Hospital12-28-2022 Miscellaneous Notes* Telephone Encounter - July Beaver LPN - 07/30/2022 3:14 PM EST Pt. informed via My Chart. * Telephone Encounter - Hilton Doty DO - 07/30/2022 3:06 PM EST Please inform patient that rx was sent to other pharmacy as requested as below Hilton Doty DO The following approved medication requests have been transmitted electronically. Requested Prescriptions Signed Prescriptions Disp Refills phentermine-topiramate ER (QSYMIA) 11.25-69 mg 24 Hr Capsule 90 capsule 0 Sig: Take 1 capsule by mouth once daily for 90 days. BMI 30 Authorizing Provider: HILTON DOTY DO * Telephone Encounter - Dasia Pedroza MA - 07/29/2022 11:05 AM EST Images from the original note were not included. MC message turned into TE. Wanda Caal [facility] My Chart Rx Pool (supporting Hilton Doty, ) 13 hours ago (9:45 PM) [facility] The [...] them directly. Thank you so much . Wanda Pended medication. Pharmacy verified. Dasia Pedroza MA documented in this encounterKeenan Private Hospital12-27-2022 Miscellaneous Notes* Telephone Encounter - Dasia Pedroza MA - 07/29/2022 11:05 AM EST MC message turned into TE. 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 Is trying to determine if she will stay in this job position or try something different. Tolerating the Qsymia medication well Leg edema has improved, hasn't had to take her diuretic recently HPL, making diet changes as above and weight loss. Inflammatory arthropathy, taking Plaquenil, will be following up with her [employer]. PAST MEDICAL HISTORY Diagnosis Date MAXIM positive [...] 1 application to affected area once daily. Location:rosacea phentermine-topiramate ER (QSYMIA) 11.25-69 mg 24 Hr Capsule Take 1 capsule by mouth once daily for90 days. BMI 30 furosemide (LASIX) 20 mg [...] ICD10: M06.4 - rx refilled, f/u with [facility] - QSYMIA 11.25 MG-69 MG CAPSULE, EXTENDED [...] chronic - CHLORTHALIDONE 25 MG TABLET Hilton Doty, DO To ER if develops chest pain, shortness of breath, or severe worsening of symptoms. Discussed risks, benefits, alternatives, and potential side effects of medications. Patient expressed understanding and agreed with the plan. Hilton Doty DO [address] [place] [address] documented in this encounterKeenan Private Hospital11-23-2022 Nurse Note* Rodolfo Salas MA - 06/25/2022 10:19 AM EST PLQ eye exam done on 05/20/2022 at [facility] No evidence of PLQtoxicity. Report sent for scanning. Rodolfo Salas MA documented in this encounterKeenan Private Hospital10-18-2022 Miscellaneous Notes* Telephone Encounter - Ayde Antonio Ma - 05/20/2022 12:39 PM EDT Last office visit: 04/23/22 F/u scheduled: 07/23/22 Ayde Antonio Ma documented in this encounterKeenan Private Hospital09-21-2022 History of Present illness Narrative* Hilton Doty DO - 04/23/2022 10:22 PM EDT CC: Wanda Caal is a 42 year old female [...] rx is complete. Has been working with [employer] specialist at [facility] in the Medical nutrition therapy department and [...] are also improving. She has met with [employer] Cup Filler and she has been keeping track of food intake daily. She isalso walking more for exercise and wants to be more diligent with the exercise as well. Is excited to see if this helps her inflammatory arthritis- is taking her medications per Dr. 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 BMI 30.37 furosemide (LASIX) 20 mg [...] nares without drainage, pharynx without erythema, exudate, lesions,or drainage. Uvula midline. Neck: No LAD, no [...] ICD9: 714.9, ICD10: M06.4 - f/u with [employer] [facility], continue weight loss efforts. Hilton Doty DO Return if no improvement. Follow up with Hilton Doty DO. To ER if develops chest pain, shortness of breath Discussed risks, benefits, alternatives, and potential side effects of medications. Patient/Guardian expressed understanding and agreed with the plan. See patient instructions. Hilton Doty DO [address] [place] [address] documented in this encounterKeenan Private Hospital07-13-2022 History of Present illness Narrative* Delphine Floyd APRN.[facility] - 02/12/2022 4:01 PM EDT Wanda is a 42 year old who presents [...] L2 SAB1 IAB0 Ectopic0 Multiple0 Live Births0 Sample Cutter History LMP: 12/29/2020, IUD Age at Menarche: Age at First : Age at Menopause: Sample Cutter History Comments: Sexual Activity: Yes; Male; tubal [...] external genitalia normal, normal Bartholin's glands, urethra, [place]'s glands, no vulvar lesions, no cervical lesions, good vaginal support, small amount pale yellow discharge present, normalappearing perineal body and perianal region. IUD stings [...] results. Follow- up as needed. Delphine Floyd APRN.HOME CARE ADMINISTRATOR 2) Contraception: IUD. Contraceptive options reviewed and information provided. 3) STD screening: Declined STD check. 4) Follow up one year or sooner as needed Delphine Floyd APRN.[facility] documented in this encounterKeenan Private Hospital07-02-2022 Miscellaneous Notes* Telephone Encounter - Gina Sparks LPN - 02/01/2022 11:33 AM EDT Patient calling her came home with paper rx for the QSYMIA and she said rx has to go to [facility], [place]. Pending rx to file. Please advise Patient [...] Class: C-IV MAZIN: No Authorizing Provider: HILTON DOTY Date of last office visit in primary care: 01/20/2022, has appt 04/23/2022 Last 2 Encounter Wt Readings: Date: Wt: 01/20/2022 89.8 kg (198 lb) 10/05/2021 97.6 kg (215 lb 3.2 oz) Previous labs/tests for medication: Not applicable Please advise. Thank you. Gina Sparks LPN * Telephone Encounter - Hilton Doty DO - 02/01/2022 10:37 AM EDT The following approved medication requests have been transmitted electronically. Signed Prescriptions Disp Refills phentermine-topiramate ER (QSYMIA) 11.25-69 mg 24 Hr Capsule 90 capsule 0 Sig: Take 1 capsule by mouth once daily for 90 days. BMI 31.96 MARCUS Class: C-IV MAZIN: No Authorizing Provider: HILTON DOTY DO documented in this encounterKeenan Private Hospital06-20-2022 Instructions* Patient Instructions* Hilton Doty DO - 01/20/2022 9:46 AM EDT Voltaren 1% gel pea sized amount 1-3 times a day (AM and PM) Can use a thumb spica splint at bed and as needed if thumb worsens. documented in this encounterKeenan Private Hospital06-20-2022 History of Present illness Narrative* Hilton Doty DO - 01/20/2022 9:25 AM EDT CC: Wanda Caal is a 41 year old female [...] rx is complete. Has been working with Gre[employer] Filler specialist at [facility] in the Medical nutrition therapy department and [...] are also improving. She has met with Gre[employer] Cup Filler and she has been keeping track of food intake daily. She isalso walking more for exercise and wants to be more diligent with the exercise as well. Is excited to see if this helps her inflammatory arthritis- is taking her medications per Dr. 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 HgbA1c greater or equal to 6.5% is considered diagnostic of diabetes. 10/23/2018 5.3 4.3 - 5.6 % Final Comment: [place] [employer] guidelines indicate that patients with [...] affected area twice daily. Location: on eyelid asneeded for rash furosemide (LASIX) 20 mg tablet [...] ICD9: 714.9, ICD10: M06.4 - f/u with Flat [employer]rer, leg edema has improved. 6. Bilateral leg edema - ICD9: 782.3, ICD10: R60.0 - okay to only use the lasix prn now, not daily, symptoms have improved with weight loss and diet changes. 7. Obesity, Class I, BMI 30-34.9 - ICD9: 278.00, ICD10: E66.9 Weight decreasing - Behavioral intervention, - Eat well program and - Continue current medications Hilton Doty DO To ER if develops chest pain, shortness of breath, or severe worsening of symptoms. Discussed risks, benefits, alternatives, and potential side effects of medications. Patient expressed understanding and agreed with the plan. Hilton Doty DO [address] [place] [address] documented in this encounterKeenan Private Hospital06-07-2022 Miscellaneous Notes* Telephone Encounter - Hilton Doty DO - 01/07/2022 5:47 PM EDT The following approved medication requests have been transmitted electronically. Signed Prescriptions Disp Refills chlorthalidone (HYGROTON) 25 mg tablet 90 tablet 0 Sig: Take 1 tablet by mouth once daily. As needed for edema MAZIN: No Authorizing Provider: HILTON DOTY DO * Telephone Encounter - Lois Martin Ma - 01/06/2022 8:39 AM EDT Rx pended. Lois Martin Ma * Telephone Encounter - Dafne Marks - 01/06/2022 8:21 AM EDT Please send medication to [facility]. Patient asking for 90 day * Telephone Encounter - Dafne Marks - 01/06/2022 8:17 AM EDT Patient calling today to changing her pharmacy for medication chlorthalidone (HYGROTON) 25 mg tablet. Please send medication to documented in this encounterKeenan Private Hospital05-23-2022 Miscellaneous Notes* Telephone Encounter - Rox Knox LPN - 12/23/2021 8:03 AM EDT Patient phones requesting refills as follows: Pending Prescriptions Disp Refills CHLORTHALIDONE 25 MG TABLET 90 tablet 0 Sig: TAKE 1 TABLET BY MOUTH ONCE DAILY NEEDED FOR EDEMA MAZIN: Yes Monica-09/23/21 Labs-04/16/21 NOV-01/20/22 Please review and advise. Rox Knox LPN documented in this encounterKeenan Private Hospital05-13-2022 Miscellaneous Notes* Telephone Encounter - Jaja Motley MA - 12/13/2021 3:16 PM EDT Patient is notified of message below and verbalized understanding of instructions. Jaja Motley MA * Telephone Encounter - Ale Conner MD - 12/13/2021 3:06 PM EDT Will order needed labs at next visit. rx sent * Telephone Encounter - Jaja Motley MA - 12/13/2021 2:26 PM EDT Patient has been identified by name and [...] results found for: URICACID Jaja Motley MA * Telephone Encounter - Norma Genao Pss - 12/13/2021 2:23 PM EDT Patient wanted to know if Dr. Conner would fill her Plaquenil until she is able to be seen. Please advice documented in this encounterWilson [facility]al[facility]* Diagnosis Inflammatory arthritis Unspecified inflammatory polyarthropathy documented in this encounter [facility]* Diagnosis Dyslipidemia- Primary Other and unspecified hyperlipidemia Encounter for screening mammogram for malignant neoplasm of breast Other screening mammogram LIVIA (generalized anxiety disorder) Generalized anxiety disorder Eczematous dermatitis of upper eyelids of both eyes Inflammatory polyarthropathy (HCC) Unspecified inflammatory polyarthropathy Bilateral leg edema Edema Obesity, Class I, BMI 30-34.9 Obesity, unspecified documented in this encounter [facility]* Diagnosis Obesity, Class III, BMI 40-49.9 (morbid obesity) ([facility]) Morbid obesity documented in this encounter [facility]* Diagnosis Encounter for gynecological examination with abnormal finding- Primary Routine gynecological examination Pain due to intrauterine contraceptive device (IUD), initial encounter ([facility]) Postcoital bleeding Vaginal discharge Leukorrhea, not specified as infective documented in this encounter [facility]* Diagnosis LIVIA (generalized anxiety disorder)- Primary Generalized anxiety disorder Obesity, Class III, BMI 40-49.9 (morbid obesity) (HCC) Morbid obesity Inflammatory polyarthropathy (HCC) Unspecified inflammatory polyarthropathy documented in this encounter [facility] note* Diagnosis Dyslipidemia- Primary Other and unspecified hyperlipidemia LIVIA (generalized anxiety disorder) Generalized anxiety disorder Inflammatory polyarthropathy (HCC) Unspecified inflammatory polyarthropathy Obesity, Class I, BMI 30-34.9 Obesity, unspecified Rosacea Bilateral leg edema Edema documented in this encounter [facility]* Diagnosis Inflammatory polyarthropathy (HCC) Unspecified inflammatory polyarthropathy Dyslipidemia Other and unspecified hyperlipidemia Obesity, Class I, BMI 30-34.9 Obesity, unspecified documented in this encounter [facility]* Diagnosis Undifferentiated connective tissue disease (HCC)- Primary Unspecified diffuse connective tissue disease Inflammatory arthritis Unspecified inflammatory polyarthropathy Encounter for long-term (current) use of medications Encounter for long-term (current) use of other medications Facial rash Rash and other nonspecific skin eruption Sicca syndrome (HCC) Sicca syndrome documented in this encounter [facility]* Diagnosis Dyslipidemia- Primary Other and unspecified hyperlipidemia Inflammatory polyarthropathy (HCC) Unspecified inflammatory polyarthropathy Obesity, Class I, BMI 30-34.9 Obesity, unspecified Hot flashes Symptomatic menopausal or female climacteric states Bilateral leg edema Edema documented in this encounter [facility]* Diagnosis LIVIA (generalized anxiety disorder)- Primary Generalized anxiety disorder Inflammatory polyarthropathy (HCC) Unspecified inflammatory polyarthropathy Dyslipidemia Other and unspecified hyperlipidemia Obesity, Class I, BMI 30-34.9 Obesity, unspecified Raynaud's phenomenon without gangrene Situational depression Adjustment disorder with depressed mood documented in this encounter [facility]* Diagnosis Encounter for screening mammogram for breast cancer documented in this encounter [facility]* Diagnosis Inflammatory arthritis Unspecified inflammatory polyarthropathy documented in this encounter [facility]* Diagnosis Dyslipidemia- Primary Other and unspecified hyperlipidemia Inflammatory polyarthropathy (HCC) Unspecified inflammatory polyarthropathy Obesity, Class I, BMI 30-34.9 Obesity, unspecified LIVIA (generalized anxiety disorder) Generalized anxiety disorder Raynaud's phenomenon without gangrene Bilateral leg edema Edema Vitamin D deficiency Unspecified vitamin D deficiency documented in this encounter [facility]* Diagnosis Bilateral leg edema Edema documented in this encounter [facility]* Diagnosis Inflammatory arthritis Unspecified inflammatory polyarthropathy documented in this encounter [facility]* Diagnosis LIVIA (generalized anxiety disorder) Generalized anxiety disorder Situational depression Adjustment disorder with depressed mood documented [facility] encounter [facility]* Diagnosis LIVIA (generalized anxiety disorder)- Primary [...] with other complications documented in this encounter [facility]* Diagnosis Onset Date Resolution Status Abnormal uterine bleeding (AUB) acute Dysmenorrhea chronic Menorrhagia chronic Encounter for IUD removal no neactive [facility] Work Phone: Evaluation note* Diagnosis Inflammatory arthritis Unspecified inflammatory polyarthropathy documented in this encounter [facility] note* Diagnosis Onset Date Resolution Status Abnormal uterine bleeding (AUB) acute Dysmenorrhea chronic Menorrhagia chronic Encounter for IUD removal no neactive Abnormal uterine bleeding (AUB) acute Fibroids acute Dysmenorrhea chronic Menorrhagia chronic [facility] Work Phone: Evaluation note* Diagnosis Onset Date Resolution Status Abnormal uterine bleeding (AUB) acute Dysmenorrhea chronic Menorrhagia chronic Encounter for IUD removal no neactive Abnormal uterine bleeding (AUB) acute Fibroids acute Dysmenorrhea chronic Menorrhagia chronic Cervical high risk HPV (leonard n papillomavirus) test positive acute Menorrhagia chronic [facility] Work Phone: Evaluation note* Diagnosis Inflammatory polyarthropathy (HCC)- Primary Unspecified inflammatory polyarthropathy Abnormal mammogram of right breast Obesity, Class I, BMI 30-34.9 Obesity, unspecified Inflammatory arthritis Unspecified inflammatory polyarthropathy Dyslipidemia Other and unspecified hyperlipidemia LIVIA (generalized anxiety disorder) Generalized anxiety disorder Raynaud's phenomenon without gangrene Vitamin D deficiency Unspecified vitamin D deficiency Rosacea [facility]* Diagnosis Onset Date Resolution Status Abnormal uterine bleeding (AUB) acute Fibroids acute Dysmenorrhea chronic Menorrhagia chronic Cervical high risk HPV (leonard n papillomavirus) test positive acute Menorrhagia chronic Menorrhagia chronic Influenza A acute Abnormal uterine bleeding (AUB) acute Fibroids acute Dysmenorrhea chronic Menorrhagia chronic Status post hysteroscopy acu te Acute sinusitis acute Contact with or suspected ex posure to other viral communicable disease acute [facility] Work Phone: Evaluation note* Diagnosis Bilateral leg edema Edema [facility]* Diagnosis Situational insomnia Transient disorder of initiating or maintaining sleep [facility]* Diagnosis Dyslipidemia- Primary Other and unspecified hyperlipidemia LIVIA (generalized anxiety disorder) Generalized anxiety disorder Inflammatory polyarthropathy (HCC) Unspecified inflammatory polyarthropathy Obesity, Class I, BMI 30-34.9 Obesity, unspecified Bilateral leg edema Edema Vitamin D deficiency Unspecified vitamin D deficiency Situational depression Adjustment disorder with depressed mood [facility]* Diagnosis Lower thoracic back pain- Primary Acute low back pain with sciatica, sciatica laterality unspecified, unspecified back pain laterality Lower thoracic back pain Acute low back pain with sciatica, sciatica laterality unspecified, unspecified back pain laterality [facility]* Diagnosis Inflammatory arthritis Unspecified inflammatory polyarthropathy Bilateral leg edema Edema LIVIA (generalized anxiety disorder) Generalized anxiety disorder [facility] Diagnosis Lower thoracic back pain Acute low back pain with sciatica, sciatica laterality unspecified, unspecified back pain laterality [facility] Diagnosis Nausea- Primary Nausea alone SOB (shortness of breath) Shortness of breath Hypokalemia Hypopotassemia Fatigue, unspecified type Inflammatory arthritis Unspecified inflammatory polyarthropathy Bilateral leg edema Edema Situational depression Adjustment disorder with depressed mood Obesity, Class I, BMI 30-34.9 Obesity, unspecified Inflammatory polyarthropathy (HCC) Unspecified inflammatory polyarthropathy Dyslipidemia Other and unspecified hyperlipidemia [facility] Diagnosis Hypokalemia- Primary Hypopotassemia [facility]* Diagnosis Encounter for screening mammogram for breast cancer [facility] Diagnosis Inflammatory arthritis Unspecified inflammatory polyarthropathy [facility] Diagnosis Varicose veins of both lower extremities with complications- Primary Hypokalemia Hypopotassemia LIVIA (generalized anxiety disorder) Generalized anxiety disorder Situational depression Adjustment disorder with depressed mood Obesity, Class I, BMI 30-34.9 Obesity, unspecified Inflammatory polyarthropathy (HCC) Unspecified inflammatory polyarthropathy Dyslipidemia Other and unspecified hyperlipidemia Inflammatory arthritis Unspecified inflammatory polyarthropathy Perimenopausal symptoms Symptomatic menopausal or female climacteric states [facility] Diagnosis Bilateral leg edema Edema [facility]* Diagnosis Bilateral leg edema- Primary Edema SOB (shortness of breath) Shortness of breath Obesity, Class I, BMI 30-34.9 Obesity, unspecified [facility] Diagnosis Bilateral leg edema- Primary Edema SOB (shortness of breath) Shortness of breath [facility]* Diagnosis LIVIA (generalized anxiety disorder) Generalized anxiety disorder [facility]* Diagnosis SOB (shortness of breath)- Primary Shortness of breath Wheezing Hypokalemia Hypopotassemia Varicose veins of both lower extremities with complications LIVIA (generalized anxiety disorder) Generalized anxiety disorder Perimenopausal symptoms Symptomatic menopausal or female climacteric states Inflammatory arthritis Unspecified inflammatory polyarthropathy Dyslipidemia Other and unspecified hyperlipidemia Inflammatory polyarthropathy (HCC) Unspecified inflammatory polyarthropathy Fatigue, unspecified type Vitamin D deficiency Unspecified vitamin D deficiency Rosacea Raynaud's phenomenon without gangrene [facility] Diagnosis LIVIA (generalized anxiety disorder)- Primary Generalized anxiety disorder Obesity, Class I, BMI 30-34.9 Obesity, unspecified Inflammatory polyarthropathy (HCC) Unspecified inflammatory polyarthropathy Dyslipidemia Other and unspecified hyperlipidemia Inflammatory arthritis Unspecified inflammatory polyarthropathy Perimenopausal symptoms Symptomatic menopausal or female climacteric states SOB (shortness of breath) Shortness of breath Varicose veins of both lower extremities with complications [facility] Additional Instructions Cardiac workup negative to ED. This included her D-dimer. Chest x-ray negative. Follow-up with your doctor for further testing.[facility] Work Phone: Reason for referral (narrative)* Diagnostic Procedure Only (Routine) - Pending Review Specialty Diagnoses / Procedures Referred By Cristo xiao Referred To Contact [facility] Diagnoses Encounter for screening mammogram for malignant neoplasm of breast Procedures CINDY SCREENING W KYMBERLY SCREENING DIGITAL BREAST TOMOSYNTHESIS BI SCREENING MAMMOGRAPHY BI 2-VIEW BREAST INC CAD Hilton Doty, DO [address] [place] [address] [facility] [address] [place] [address] Referral ID Status Reason Start Date Expiration Date Visits Requested Visits Authorized [id number] Pending Review Auto-Generat ed Referral 07/03/2022 02/19/2023 1 1 [facility] for referral (narrative)* Diagnostic Procedure Only (Routine) - Pending Review Specialty Diagnoses / Procedures Referred By Cristo xiao Referred To Contact [facility] Diagnoses Pain due to intrauterine contraceptive device (IUD), initial encounter (HCC) Postcoital bleeding Procedures PELVIC US I US PELVIC NONOBSTETRIC REAL-TIME IMAGE COMPLETE Delphine Floyd APRN.HOME CARE ADMINISTRATOR [address] [place] [address] [facility] [address] [place] [address] Referral ID Status Reason Start Date Expiration Date Visits Requested Visits Authorized [id number] Pending Review Auto-Generat ed Referral 02/12/2022 02/12/2023 1 1 [facility] for referral (narrative)* Diagnostic Procedure Only (Routine) - Pending Review Specialty Diagnoses / Procedures Referred By Cristo xiao Referred To Contact [facility] Diagnoses Encounter for screening mammogram for breast cancer Procedures CINDY SCREENING SCREENING MAMMOGRAPHY BI 2-VIEW BREAST INC CAD Hilton Doty, DO [address] [place] [address] [facility] [address] [place] [address] Referral ID Status Reason Start Date Expiration Date Visits Requested Visits Authorized [id number] Pending Review Auto-Generat ed Referral 12/24/2022 01/23/2024 1 1 [facility] for referral (narrative)* Diagnostic Procedure Only (Urgent) - Closed Specialty Diagnoses / Procedures Referred By Contac t Referred To Contact [facility] Diagnoses Lower thoracic back pain Acute low back pain with sciatica, sciatica laterality unspecified, unspecified back pain laterality Procedures XR LUMBAR GENERAL 3V AP/LAT/L5-S1 RADEX SPINE LUMBOSACRAL 2/3 VIEWS Doris Driscoll APRN.WINDSHIELD REPAIR TECHNICIAN [address] [place] [address] [place] [address] Referral ID Status Reason Start Date Expiration Date V isits Requested Visits Authorized [id number] Closed Auto-Generate d Referral 02/08/2024 03/09/2025 1 1 * Diagnostic Procedure Only (Urgent) - Closed Specialty Diagnoses / Procedures Referred By Contac t Referred To Contact X[facility] IMAGING Diagnoses Lower thoracic back pain Acute low back pain with sciatica, sciatica laterality unspecified, unspecified back pain laterality Procedures XR THORACIC GENERAL 3V AP/LAT/SWIMMERS RADEX SPINE THORACIC 3 VIEWS Doris Driscoll APRN.WINDSHIELD REPAIR TECHNICIAN [address] [place] [address] [place] [address] Referral ID Status Reason Start Date Expiration Date V isits Requested Visits Authorized [id number] Closed Auto-Generate d Referral 02/08/2024 03/09/2025 1 1 [facility] for referral (narrative)* Diagnostic Procedure Only (Urgent) - Closed Specialty Diagnoses / Procedures Referred By Contac t Referred To Contact XR IMAGING Diagnoses Lower thoracic back pain Acute low back pain with sciatica, sciatica laterality unspecified, unspecified back pain laterality Procedures XR LUMBAR GENERAL 3V AP/LAT/L5-S1 RADEX SPINE LUMBOSACRAL 2/3 VIEWS Doris Driscoll APRN.HOME CARE ADMINISTRATOR [address] [place] [address] [place] [address] Referral ID Status Reason Start Date Expiration Date V isits Requested Visits Authorized [id number] Closed Auto-Generate d Referral 02/08/2024 03/09/2025 1 1 Electronically signed by Doris Driscoll MERCHANDISE MARKER.WINDSHIELD REPAIR TECHNICIAN at 02/08/2024 4:39 PM EDT * Diagnostic Procedure Only (Urgent) - Closed Specialty Diagnoses / Procedures Referred By Cristo t Referred To Contact XR IMAGING Diagnoses Lower thoracic back pain Acute low back pain with sciatica, sciatica laterality unspecified, unspecified back pain laterality Procedures XR THORACIC GENERAL 3V AP/LAT/SWIMMERS RADEX SPINE THORACIC 3 VIEWS Doris Driscoll, MERCHANDISE MARKER.HOME CARE ADMINISTRATOR [address] [place] [address] [place] [address] Referral ID Status Reason Start Date Expiration Date V isits Requested Visits Authorized [id number] Closed Auto-Generate d Referral 02/08/2024 03/09/2025 1 1 [facility] for referral (narrative)* Diagnostic Procedure Only (Routine) - New Request Specialty Diagnoses / Procedures Referred By Cristo xiao Referred To Contact [facility] Diagnoses Encounter for screening mammogram for breast cancer Procedures CINDY SCREENING W KYMBERLY SCREENING DIGITAL BREAST TOMOSYNTHESIS BI SCREENING MAMMOGRAPHY BI 2-VIEW BREAST INC Hilton Nieves DO [address] [place] [address] [facility] [address] [place] [address] Referral ID Status Reason Start Date Expiration Date Visits Requested Visits Authorized [id number] New Request Auto-Generat ed Referral 05/11/2024 06/10/2025 1 1 [facility] for referral (narrative)No reason for referral information [facility] Work Phone: Reason for visit Narrative* Diagnostic Procedure Only (Urgent) - Closed Specialty Diagnoses / Procedures Referred By Contac t Referred To Contact XR IMAGING Diagnoses Lower thoracic back pain Acute low back pain with sciatica, sciatica laterality unspecified, unspecified back pain laterality Procedures XR LUMBAR GENERAL 3V AP/LAT/L5-S1 RADEX SPINE LUMBOSACRAL 2/3 VIEWS Doris Driscoll, KJ.HOME CARE ADMINISTRATOR [address] [place] [address] [place] [address] Referral ID Status Reason Start Date Expiration Date V isits Requested Visits Authorized [id number] Closed Auto-Generate d Referral 02/08/2024 03/09/2025 1 1 [facility] Reason for Referral Specialty Diagnoses / Procedures Referred By Contac t Referred To Contact Vascular Surgery Diagnoses Varicose veins of both lower extremities with pain Procedures CONSULT TO VASCULAR SURGERY OFFICE/OUTPATIENT [facility] 60-74 MINUTES Hilton Doty, DO [address] [place] [address] Referral ID Status Reason Start Date Expiration Date Visits Requested Visits Authorized [id number] Authorized PCP Requested Referral 06/03/2023 06/02/2024 1 1 Specialty Diagnoses / Procedures Referred By Contac t Referred To Contact [facility] Diagnoses Encounter for screening mammogram for malignant neoplasm of breast Procedures CINDY SCREENING SCREENING MAMMOGRAPHY BI 2-VIEW BREAST INC CAD Hilton Doty, DO [address] [place] [address] [facility] [address] [place] [address] Referral ID Status Reason Start Date Expiration Date Visits Requested Visits Authorized [id number] Pending Review Auto-Generat ed Referral 06/03/2023 07/02/2024 1 1 Specialty Diagnoses / Procedures Referred By Contac t Referred To Contact Nutrition Diagnoses Inflammatory polyarthropathy (HCC) Obesity, Class III, BMI 40-49.9 (morbid obesity) (HCC) Procedures CONSULT TO NUTRITION THERAPY MEDICAL NUTRITION ASSMT&IVNTJ INDIV EACH 15 [place] MEDICAL NUTRITION ASSMT&IVNTJ INDIV EACH 15 [place] MEDICAL NUTRITION ASSMT&IVNTJ INDIV EACH 15 [place] MEDICAL NUTRITION ASSMT&IVNTJ INDIV EACH 15 [place] Hilton Doty, DO [address] [place] [address] Referral ID Status Reason Start Date Expiration Date Visits Requested Visits Authorized [id number] Authorized PCP Requested Referral 06/03/2023 06/02/2024 1 1 Specialty Diagnoses / Procedures Referred By Contac t Referred To Contact Nutrition Diagnoses Inflammatory polyarthropathy (HCC) Obesity, Class I, BMI 30-34.9 Procedures CONSULT TO NUTRITION THERAPY MEDICAL NUTRITION ASSMT&IVNTJ INDIV EACH 15 [place] Hilton Doty, DO [address] [place] [address] Referral ID Status Reason Start Date Expiration Date Visits Requested Visits Authorized [id number] Authorized PCP Requested Referral 10/21/2023 10/20/2024 1 4 Specialty Diagnoses / Procedures Referred By Contac t Referred To Contact [facility] Diagnoses Abnormal mammogram of right breast Procedures US BREAST LTD RIGHT US BREAST UNI REAL TIME WITH IMAGE LIMITED Hilton Doty, DO [address] [place] [address] [facility] [address] [place] [address] Referral ID Status Reason Start Date Expiration Date Visits Requested Visits Authorized [id number] Pending Review Auto-Generat ed Referral 10/21/2023 11/19/2024 1 1 Specialty Diagnoses / Procedures Referred By Contac t Referred To Contact [facility] Diagnoses Abnormal mammogram of right breast Procedures CINDY DIAGNOSTIC RIGHT DIAGNOSTIC MAMMOGRAPHY COMPUTER-AIDED DETCJ UNI Hilton Doty, DO [address] [place] [address] [facility] [address] [place] [address] Referral ID Status Reason Start Date Expiration Date Visits Requested Visits Authorized [id number] Pending Review Auto-Generat ed Referral 10/21/2023 11/19/2024 1 1 Specialty Diagnoses / Procedures Referred By Contac t Referred To Contact Vascular Surgery Diagnoses Varicose veins of both lower extremities with complications Procedures CONSULT TO VASCULAR SURGERY OFFICE/OUTPATIENT NEW HIGH MDM 60 MINUTES Hilton Doty, DO [address] [place] [address] Referral ID Status Reason Start Date Expiration Date Visits Requested Visits Authorized [id number] Authorized PCP Requested Referral 4 08/01/2025 1 1 Chief Complaint and Reason for Visit Chief Complaint [employer]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 SURFACE ANTIBODY SCREENING ABNORMAL MAMMOGRAM IUD removal, bleeding concerns [employer] employee Reason for Visit Abnormal uterine ble eding (AUB) Dysmenorrhea Menorrhagia Encounter for IUD removal Chief Complaint 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 B SURFACE ANTIBODY SCREENING ABNORMAL MAMMOGRAM IUD removal, bleeding concerns [employer] employee BLEEDING Reason for Visit Abnormal uterine ble eding (AUB) Dysmenorrhea Menorrhagia Encounter for IUD removal Chief Complaint 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 B SURFACE ANTIBODY SCREENING ABNORMAL MAMMOGRAM IUD removal, bleeding concerns [employer] employee BLEEDING EMB Reason for Visit Abnormal uterine ble eding (AUB) Dysmenorrhea Menorrhagia Encounter for IUD removal Abnormal uterine bleeding (AUB) Fibroids Dysmenorrhea Menorrhagia Chief Complaint SCREENING ABNORMAL MAMMOGRAM IUD removal, bleeding concerns [employer] employee BLEEDING EMB Colposcopy , discuss surgery Reason for Visit Abnormal uterine ble eding (AUB) Dysmenorrhea Menorrhagia Encounter for IUD removal Abnormal uterine bleeding (AUB) Fibroids Dysmenorrhea Menorrhagia Cervical high risk HPV (human papillomavirus) test positive Menorrhagia Chief Complaint EMB Colposcopy , discuss surgery ablation FEVER, BODY ACHES EMPLOYEE COVID TEST Hysteroscopy,D&C Arabella Hysteroscopy,D&C Arabella 2 wk ablation SINUS PRESSURE, UPSET STOMACH, EAR PAIN DIET COUNS AND SURV Reason for Visit Abnormal uterine ble eding (AUB) Fibroids Dysmenorrhea Menorrhagia Cervical high risk HPV (human papillomavirus) test positive Menorrhagia Menorrhagia Influenza A Abnormal uterine bleeding (AUB) Fibroids Dysmenorrhea Menorrhagia Status post hysteroscopy Acute sinusitis Contact with or suspected exposure to other viral communicable disease Chief Complaint Admit Date Varicose veins September 08, 2024 1 0:57am LEG PAIN September 21, 2024 7:56am SCREENING September 26, 2024 7:59am Reason for Visit Admit Date Varicose veins of lower extremity Februa 2024 10:57am Chief Complaint Admit Date Varicose veins September 08, 2024 1 0:57am LEG PAIN September 21, 2024 7:56am SCREENING September 26, 2024 7:59am SOB October 13, 2024 5:1 4pm Chief Complaint Admit Date Varicose veins September 08, 2024 1 0:57am LEG PAIN September 21, 2024 7:56am SCREENING September 26, 2024 7:59am SOB October 13, 2024 5:1 4pm LT LEG PAIN October 14, 2024 10: 48am Chief Complaint Admit Date Varicose veins September 08, 2024 1 0:57am LEG PAIN September 21, 2024 7:56am SCREENING September 26, 2024 7:59am SOB October 13, 2024 5:1 4pm LT LEG PAIN October 14, 2024 10: 48am SOB October 26, 2024 12: 40pm Chief Complaint Admit Date Varicose veins September 08, 2024 1 0:57am LEG PAIN September 21, 2024 7:56am SCREENING September 26, 2024 7:59am SOB October 13, 2024 5:1 4pm LT LEG PAIN October 14, 2024 10: 48am SOB October 26, 2024 12: 40pm 8-12 WK FU November 02, 2024 11:3 0am SOB, WHEEZING November 10, 2024 6:3 1am Reason for Visit Admit Date Varicose veins of lower extremity Februa 2024 10:57am Varicose veins of lower extremity November 02, 2024 11:30am Chief Complaint Admit Date Varicose veins September 08, 2024 1 0:57am LEG PAIN September 21, 2024 7:56am SCREENING September 26, 2024 7:59am SOB October 13, 2024 5:1 4pm LT LEG PAIN October 14, 2024 10: 48am SOB October 26, 2024 12: 40pm 8-12 WK FU November 02, 2024 11:3 0am SOB, WHEEZING November 10, 2024 6:3 1am MNT November 28, 2024 8:0 0am 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) December 12, 2024 9:20a m Reason for Visit Admit Date Varicose veins of lower extremity Februa 2024 10:57am Varicose veins of lower extremity November 02, 2024 11:30am Encounter for routine gynecological exam ination December 12, 2024 9:20am Chief Complaint Admit Date Varicose veins September 08, 2024 1 0:57am LEG PAIN September 21, 2024 7:56am SCREENING September 26, 2024 7:59am SOB October 13, 2024 5:1 4pm LT LEG PAIN October 14, 2024 10: 48am SOB October 26, 2024 12: 40pm 8-12 WK FU November 02, 2024 11:3 0am SOB, WHEEZING November 10, 2024 6:3 1am MNT November 28, 2024 8:0 0am 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) December 12, 2024 9:20a m Discuss LLE, prior to procedure December 3:31pm Reason for Visit Admit Date Varicose veins of lower extremity Februa 2024 10:57am Varicose veins of lower extremity November 02, 2024 11:30am Encounter for routine gynecological exam ination December 12, 2024 9:20am Symptomatic varicose veins December 19 3:31pm Advance Directives No Advanced Directives Records Found Advance Directive Response Recorded Date/ Time Living Will No July 22 021 11:16am Power of Contact Lens Lathe Operator No July 22, 2021 11:16am Advance Directive Response Recorded Date/ Time Living Will No September 25 024 9:31am Power of Contact Lens Lathe Operator No September 25, 2023 9:31am Advance Directive Response Recorded Date/ Time Living Will No October 13, 2024 7:03pm Power of Contact Lens Lathe Operator No October 13 7:03pm Advance Directive Response Recorded Date/ Time Living Will No October 13, 2024 7:03pm Do you have a Healthcare Power of Contact Lens Lathe Operator? No October 13, 2024 7:03pm Summary Purpose Family History No Family History Records FoundNo Family History Records Found Additional Source Comments Source Comments (unrecognize d section and content) In the event this informatio n is protected by the Federal Confidentiality of Alcohol and Drug Abuse Patient Records regulations: The Federal rules restrict any use of the information to criminally investigate or prosecute any alcohol or drug abuse patient.[facility] event this information is protected by the Federal Confidentiality of Alcohol and Drug Abuse Patient Records regulations: The Federal rules restrict any use of the information to criminally investigate or prosecute any alcohol or drug abuse patient.[facility] the event this information is protected by the Federal Confidentiality of Alcohol and Drug Abuse Patient Records regulations: The Federal rules restrict any use of the information to criminally investigate or prosecute any alcohol or drug abuse patient.[facility] the event this information is protected by the Federal Confidentiality of Alcohol and Drug Abuse Patient Records regulations: The Federal rules restrict any use of the information to criminally investigate or prosecute any alcohol or drug abuse patient.[facility] the event this information is protected by the Federal Confidentiality of Alcohol and Drug Abuse Patient Records regulations: The Federal rules restrict any use of the information to criminally investigate or prosecute any alcohol or drug abuse patient.[facility] the event this information is protected by the Federal Confidentiality of Alcohol and Drug Abuse Patient Records regulations: The Federal rules restrict any use of the information to criminally investigate or prosecute any alcohol or drug abuse patient.[facility] the event this information is protected by the Federal Confidentiality of Alcohol and Drug Abuse Patient Records regulations: The Federal rules restrict any use of the information to criminally investigate or prosecute any alcohol or drug abuse patient.[facility] the event this information is protected by the Federal Confidentiality of Alcohol and Drug Abuse Patient Records regulations: The Federal rules restrict any use of the information to criminally investigate or prosecute any alcohol or drug abuse patient.[facility] the event this information is protected by the Federal Confidentiality of Alcohol and Drug Abuse Patient Records regulations: The Federal rules restrict any use of the information to criminally investigate or prosecute any alcohol or drug abuse patient.[facility] the event this information is protected by the Federal Confidentiality of Alcohol and Drug Abuse Patient Records regulations: The Federal rules restrict any use of the information to criminally investigate or prosecute any alcohol or drug abuse patient.[facility] the event this information is protected by the Federal Confidentiality of Alcohol and Drug Abuse Patient Records regulations: The Federal rules restrict any use of the information to criminally investigate or prosecute any alcohol or drug abuse patient.[facility] HospitalIn the event this information is protected by the Federal Confidentiality of Alcohol and Drug Abuse Patient Records regulations: The Federal rules restrict any use of the information to criminally investigate or prosecute any alcohol or drug abuse patient.[facility] HospitalIn the event this information is protected by the Federal Confidentiality of Alcohol and Drug Abuse Patient Records regulations: The Federal rules restrict any use of the information to criminally investigate or prosecute any alcohol or drug abuse patient.[facility] HospitalIn the event this information is protected by the Federal Confidentiality of Alcohol and Drug Abuse Patient Records regulations: The Federal rules restrict any use of the information to criminally investigate or prosecute any alcohol or drug abuse patient.[facility] HospitalIn the event this information is protected by the Federal Confidentiality of Alcohol and Drug Abuse Patient Records regulations: The Federal rules restrict any use of the information to criminally investigate or prosecute any alcohol or drug abuse patient.[facility] HospitalIn the event this information is protected by the Federal Confidentiality of Alcohol and Drug Abuse Patient Records regulations: The Federal rules restrict any use of the information to criminally investigate or prosecute any alcohol or drug abuse patient.[facility] HospitalIn the event this information is protected by the Federal Confidentiality of Alcohol and Drug Abuse Patient Records regulations: The Federal rules restrict any use of the information to criminally investigate or prosecute any alcohol or drug abuse patient.[facility] the event this information is protected by the Federal Confidentiality of Alcohol and Drug Abuse Patient Records regulations: The Federal rules restrict any use of the information to criminally investigate or prosecute any alcohol or drug abuse patient.[facility] HospitalIn the event this information is protected by the Federal Confidentiality of Alcohol and Drug Abuse Patient Records regulations: The Federal rules restrict any use of the information to criminally investigate or prosecute any alcohol or drug abuse patient.[facility] HospitalIn the event this information is protected by the Federal Confidentiality of Alcohol and Drug Abuse Patient Records regulations: The Federal rules restrict any use of the information to criminally investigate or prosecute any alcohol or drug abuse patient.[facility]In the event this information is protected by the Federal Confidentiality of Alcohol and Drug Abuse Patient Records regulations: The Federal rules restrict any use of the information to criminally investigate or prosecute any alcohol or drug abuse patient.[facility] HospitalIn the event this information is protected by the Federal Confidentiality of Alcohol and Drug Abuse Patient Records regulations: The Federal rules restrict any use of the information to criminally investigate or prosecute any alcohol or drug abuse patient.[facility] HospitalIn the event this information is protected by the Federal Confidentiality of Alcohol and Drug Abuse Patient Records regulations: The Federal rules restrict any use of the information to criminally investigate or prosecute any alcohol or drug abuse patient.[facility] HospitalIn the event this information is protected by the Federal Confidentiality of Alcohol and Drug Abuse Patient Records regulations: The Federal rules restrict any use of the information to criminally investigate or prosecute any alcohol or drug abuse patient.[facility] HospitalIn the event this information is protected by the Federal Confidentiality of Alcohol and Drug Abuse Patient Records regulations: The Federal rules restrict any use of the information to criminally investigate or prosecute any alcohol or drug abuse patient.[facility] HospitalIn the event this information is protected by the Federal Confidentiality of Alcohol and Drug Abuse Patient Records regulations: The Federal rules restrict any use of the information to criminally investigate or prosecute any alcohol or drug abuse patient.[facility] HospitalIn the event this information is protected by the Federal Confidentiality of Alcohol and Drug Abuse Patient Records regulations: The Federal rules restrict any use of the information to criminally investigate or prosecute any alcohol or drug abuse patient.[facility] HospitalIn the event this information is protected by the Federal Confidentiality of Alcohol and Drug Abuse Patient Records regulations: The Federal rules restrict any use of the information to criminally investigate or prosecute any alcohol or drug abuse patient.[facility] HospitalIn the event this information is protected by the Federal Confidentiality of Alcohol and Drug Abuse Patient Records regulations: The Federal rules restrict any use of the information to criminally investigate or prosecute any alcohol or drug abuse patient.[facility] HospitalIn the event this information is protected by the Federal Confidentiality of Alcohol and Drug Abuse Patient Records regulations: The Federal rules restrict any use of the information to criminally investigate or prosecute any alcohol or drug abuse patient.[facility] HospitalIn the event this information is protected by the Federal Confidentiality of Alcohol and Drug Abuse Patient Records regulations: The Federal rules restrict any use of the information to criminally investigate or prosecute any alcohol or drug abuse patient.[facility] HospitalIn the event this information is protected by the Federal Confidentiality of Alcohol and Drug Abuse Patient Records regulations: The Federal rules restrict any use of the information to criminally investigate or prosecute any alcohol or drug abuse patient.[facility] HospitalIn the event this information is protected by the Federal Confidentiality of Alcohol and Drug Abuse Patient Records regulations: The Federal rules restrict any use of the information to criminally investigate or prosecute any alcohol or drug abuse patient.[facility] HospitalIn the event this information is protected by the Federal Confidentiality of Alcohol and Drug Abuse Patient Records regulations: The Federal rules restrict any use of the information to criminally investigate or prosecute any alcohol or drug abuse patient.[facility] HospitalIn the event this information is protected by the Federal Confidentiality of Alcohol and Drug Abuse Patient Records regulations: The Federal rules restrict any use of the information to criminally investigate or prosecute any alcohol or drug abuse patient.[facility] HospitalIn the event this information is protected by the Federal Confidentiality of Alcohol and Drug Abuse Patient Records regulations: The Federal rules restrict any use of the information to criminally investigate or prosecute any alcohol or drug abuse patient.[facility] HospitalIn the event this information is protected by the Federal Confidentiality of Alcohol and Drug Abuse Patient Records regulations: The Federal rules restrict any use of the information to criminally investigate or prosecute any alcohol or drug abuse patient.[facility] HospitalIn the event this information is protected by the Federal Confidentiality of Alcohol and Drug Abuse Patient Records regulations: The Federal rules restrict any use of the information to criminally investigate or prosecute any alcohol or drug abuse patient.[facility] HospitalIn the event this information is protected by the Federal Confidentiality of Alcohol and Drug Abuse Patient Records regulations: The Federal rules restrict any use of the information to criminally investigate or prosecute any alcohol or drug abuse patient.[facility] HospitalIn the event this information is protected by the Federal Confidentiality of Alcohol and Drug Abuse Patient Records regulations: The Federal rules restrict any use of the information to criminally investigate or prosecute any alcohol or drug abuse patient.[facility] HospitalIn the event this information is protected by the Federal Confidentiality of Alcohol and Drug Abuse Patient Records regulations: The Federal rules restrict any use of the information to criminally investigate or prosecute any alcohol or drug abuse patient.[facility] HospitalIn the event this information is protected by the Federal Confidentiality of Alcohol and Drug Abuse Patient Records regulations: The Federal rules restrict any use of the information to criminally investigate or prosecute any alcohol or drug abuse patient.[facility] HospitalIn the event this information is protected by the Federal Confidentiality of Alcohol and Drug Abuse Patient Records regulations: The Federal rules restrict any use of the information to criminally investigate or prosecute any alcohol or drug abuse patient.[facility] HospitalIn the event this information is protected by the Federal Confidentiality of Alcohol and Drug Abuse Patient Records regulations: The Federal rules restrict any use of the information to criminally investigate or prosecute any alcohol or drug abuse patient.[facility] HospitalIn the event this information is protected by the Federal Confidentiality of Alcohol and Drug Abuse Patient Records regulations: The Federal rules restrict any use of the information to criminally investigate or prosecute any alcohol or drug abuse patient.[facility] HospitalIn the event this information is protected by the Federal Confidentiality of Alcohol and Drug Abuse Patient Records regulations: The Federal rules restrict any use of the information to criminally investigate or prosecute any alcohol or drug abuse patient.[facility] HospitalIn the event this information is protected by the Federal Confidentiality of Alcohol and Drug Abuse Patient Records regulations: The Federal rules restrict any use of the information to criminally investigate or prosecute any alcohol or drug abuse patient.[facility] HospitalIn the event this information is protected by the Federal Confidentiality of Alcohol and Drug Abuse Patient Records regulations: The Federal rules restrict any use of the information to criminally investigate or prosecute any alcohol or drug abuse patient.[facility] HospitalIn the event this information is protected by the Federal Confidentiality of Alcohol and Drug Abuse Patient Records regulations: The Federal rules restrict any use of the information to criminally investigate or prosecute any alcohol or drug abuse patient.[facility] HospitalIn the event this information is protected by the Federal Confidentiality of Alcohol and Drug Abuse Patient Records regulations: The Federal rules restrict any use of the information to criminally investigate or prosecute any alcohol or drug abuse patient.[facility] HospitalIn the event this information is protected by the Federal Confidentiality of Alcohol and Drug Abuse Patient Records regulations: The Federal rules restrict any use of the information to criminally investigate or prosecute any alcohol or drug abuse patient.[facility] HospitalIn the event this information is protected by the Federal Confidentiality of Alcohol and Drug Abuse Patient Records regulations: The Federal rules restrict any use of the information to criminally investigate or prosecute any alcohol or drug abuse patient.[facility] HospitalIn the event this information is protected by the Federal Confidentiality of Alcohol and Drug Abuse Patient Records regulations: The Federal rules restrict any use of the information to criminally investigate or prosecute any alcohol or drug abuse patient.[facility] HospitalIn the event this information is protected by the Federal Confidentiality of Alcohol and Drug Abuse Patient Records regulations: The Federal rules restrict any use of the information to criminally investigate or prosecute any alcohol or drug abuse patient.[facility] HospitalIn the event this information is protected by the Federal Confidentiality of Alcohol and Drug Abuse Patient Records regulations: The Federal rules restrict any use of the information to criminally investigate or prosecute any alcohol or drug abuse patient.[facility] HospitalIn the event this information is protected by the Federal Confidentiality of Alcohol and Drug Abuse Patient Records regulations: The Federal rules restrict any use of the information to criminally investigate or prosecute any alcohol or drug abuse patient.[facility] HospitalIn the event this information is protected by the Federal Confidentiality of Alcohol and Drug Abuse Patient Records regulations: The Federal rules restrict any use of the information to criminally investigate or prosecute any alcohol or drug abuse patient.[facility] HospitalIn the event this information is protected by the Federal Confidentiality of Alcohol and Drug Abuse Patient Records regulations: The Federal rules restrict any use of the information to criminally investigate or prosecute any alcohol or drug abuse patient.[facility] HospitalIn the event this information is protected by the Federal Confidentiality of Alcohol and Drug Abuse Patient Records regulations: The Federal rules restrict any use of the information to criminally investigate or prosecute any alcohol or drug abuse patient.[facility] HospitalIn the event this information is protected by the Federal Confidentiality of Alcohol and Drug Abuse Patient Records regulations: The Federal rules restrict any use of the information to criminally investigate or prosecute any alcohol or drug abuse patient.[facility] HospitalIn the event this information is protected by the Federal Confidentiality of Alcohol and Drug Abuse Patient Records regulations: The Federal rules restrict any use of the information to criminally investigate or prosecute any alcohol or drug abuse patient.[facility] HospitalIn the event this information is protected by the Federal Confidentiality of Alcohol and Drug Abuse Patient Records regulations: The Federal rules restrict any use of the information to criminally investigate or prosecute any alcohol or drug abuse patient.[facility] HospitalIn the event this information is protected by the Federal Confidentiality of Alcohol and Drug Abuse Patient Records regulations: The Federal rules restrict any use of the information to criminally investigate or prosecute any alcohol or drug abuse patient.[facility] HospitalIn the event this information is protected by the Federal Confidentiality of Alcohol and Drug Abuse Patient Records regulations: The Federal rules restrict any use of the information to criminally investigate or prosecute any alcohol or drug abuse patient.[facility] Reason for Visit (unrecogniz ed section and content) Reason Comments Medication Question Reason Comments Refill Request Reason Comments Medication Problem Reason Comments Follow Up 4 months Reason Comments Well Woman Specialty Diagnoses / Procedures Referred By Contac t Referred To Contact Gynecology / PHYSICIAN ASSISTANT SURGERY Diagnoses annual Procedures WELLNESS EXAMS EST 40-64 YRS EST I ANNUAL PATIENT Self, Delphine Yan, MERCHANDISE MARKER.HOME CARE ADMINISTRATOR [address] [place] [address] Referral ID Status Reason Start Date Expiration Date Visits Re quested Visits Authorized [id number] Closed 02/04/2022 08/02/2022 1 1 Reason Comments [...] Immunizations 06/03/2023 Flu vaccination Reason Comments Results Reason Comments Abstract Outside lab results Reason Comments Patient Question Patient Update Reason Comments Abstract PLQ eye exam Reason Comments Patient Question Reason Comments Follow Up Reason Onset Date Comments Refill Request 12/30/2023 Reason Comments Follow Up Reason Comments ER F/U [facility] 02/05/24 Fall Reason Onset Date Comments Refill Request 03/17/2024 Reason Onset Date Comments Refill Request 04/01/2024 Reason Onset Date Comments Refill Request 07/01/2024 Reason Comments F/U 3 Month Reason Comments fax [facility] referral to [place] Reason Comments Orders Reason Onset Date Comments Refill Request 10/07/2024 Reason Comments Shortness of Breath Reason Comments ER F/U Reason Comments Patient Question Reason Comments F/U 3 Month Reason Comments Insurance Authorization Reason Comments Results CT Chest Reason Comments Follow Up Care Teams (unrecognized sec tion and content) Civil Laboratory Technician Relationship Specialty Start Date End Date Hilton Doty, DO [address] [place] [address] PCP - General Family Practice 09/15/14 Civil Laboratory Technician Relationship Specialty Start Date End Date Hilton Doty, DO [address] [place] [address] PCP - General Family Practice 09/15/14 Civil Laboratory Technician Relationship Specialty Start Date End Date Hilton Doty, DO [address] [place] [address] PCP - General Family Practice 09/15/14 Civil Laboratory Technician Relationship Specialty Start Date End Date Hilton Doty, DO [address] [place] [address] PCP - General Family Practice 09/15/14 Civil Laboratory Technician Relationship Specialty Start Date End Date Hilton Doty, DO [address] [place] [address] PCP - General Family Practice 09/15/14 Civil Laboratory Technician Relationship Specialty Start Date End Date Hilton Doty, DO [address] [place] [address] PCP - General Family Practice 09/15/14 Civil Laboratory Technician Relationship Specialty Start Date End Date Hilton Doty, DO [address] [place] [address] PCP - General Family Medicine 09/15/14 Civil Laboratory Technician Relationship Specialty Start Date End Date Hilton Doty, DO [address] [place] [address] PCP - General Family Medicine 09/15/14 Civil Laboratory Technician Relationship Specialty Start Date End Date Hilton Doty, DO [address] [place] [address] PCP - General Family Medicine 09/15/14 Civil Laboratory Technician Relationship Specialty Start Date End Date Hilton Doty, DO [address] [place] [address] PCP - General Family Medicine 09/15/14 Civil Laboratory Technician Relationship Specialty Start Date End Date Hilton Doty, DO [address] [place] [address] PCP - General Family Medicine 09/15/14 Civil Laboratory Technician Relationship Specialty Start Date End Date Hilotn Doty, DO [address] [place] [address] PCP - General Family Medicine 09/15/14 Civil Laboratory Technician Relationship Specialty Start Date End Date Hilton Doty, DO [address] [place] [address] PCP - General Family Medicine 09/15/14 Civil Laboratory Technician Relationship Specialty Start Date End Date Hilton Doty, DO [address] [place] [address] PCP - General Family Medicine 09/15/14 Civil Laboratory Technician Relationship Specialty Start Date End Date Hilton Doty, DO [address] [place] [address] PCP - General Family Medicine 09/15/14 Civil Laboratory Technician Relationship Specialty Start Date End Date Hilton Doty DO [address] [place] [address] PCP - General Family Medicine 09/15/14 Civil Laboratory Technician Relationship Specialty Start Date End Date Hilton Doty DO [address] [place] [address] PCP - General Family Medicine 09/15/14 Civil Laboratory Technician Relationship Specialty Start Date End Date Hilton Doty DO [address] [place] [address] PCP - General Family Medicine 09/15/14 Civil Laboratory Technician Relationship Specialty Start Date End Date Hilton Doty DO [address] [place] [address] PCP - General Family Medicine 09/15/14 Civil Laboratory Technician Relationship Specialty Start Date End Date Hilton Doty DO [address] [place] [address] PCP - General Family Medicine 09/15/14 Civil Laboratory Technician Relationship Specialty Start Date End Date Hilton Doty DO [address] [place] [address] PCP - General Family Medicine 09/15/14 Team Status: Active Member Role Status Dates Dr. Hilton Doty DO Primary Care Provider Active Team Status: Inactive Member Role Status Dates Dr. Hilton Doty DO Primary Care Provider, Referr ing Provider Active Nilda Loya PUBLISHING EDITOR, PUBLISHING EDITOR-C Attending Provider Active Team Status: Active Member Role Status Dates Employee Health Attending Provider Active Team Status: Active Member Role Status Dates Dr. Hilton Doty DO Primary Care Provider Active Health Risk Assessment Attending Provider, Leo slater Active Team Status: Inactive Member Role Status Dates Dr. Hilton Doty , DO Primary Care Pr ovider, Attending Provider, Referring Provider Active Team Status: Active Member Role Status Dates Dr. Hilton Doty , DO Primary Care Pr ovider, Attending Provider, Referring Provider Active Civil Laboratory Technician Relationship Specialty Start Date End Date Hilton Doty DO [address] [place] [address] PCP - General Family Medicine 09/15/14 Civil Laboratory Technician Relationship Specialty Start Date End Date Hilton Doty DO [address] [place] [address] PCP - General Family Medicine 09/15/14 Team Status: Inactive Member Role Status Dates Dr. Hilton Doty , Primary Care Provider Active Nilda Loya PUBLISHING EDITOR, PUBLISHING EDITOR-C Attending Provider, Referring Provider Active Team Status: Inactive Member Role Status Dates Dr. Hilton Doty , Primary Care Provider Active ERIC FOWLER Attending Provider, Referring Pro vider Active Civil Laboratory Technician Relationship Specialty Start Date End Date Hilton Doty DO [address] [place] [address] PCP - General Family Medicine 09/15/14 Team Status: Inactive Member Role Status Dates Dr. Hilton Doty , Primary Care Provider, Referr ing Provider Active Dr. Priscilla Mart , DO Attending Provider Activ e Team Status: Inactive Member Role Status Dates Dr. Hilton Doty , DO Primary Care Provider Active Dr. Priscilla Mart , DO Attending Provider, Refe rring Provider Active Civil Laboratory Technician Relationship Specialty Start Date End Date Hilton Doty DO [address] [place] [address] PCP - General Family Medicine 09/15/14 Civil Laboratory Technician Relationship Specialty Start Date End Date Hilton Doty DO [address] [place] [address] PCP - General Family Medicine 09/15/14 Civil Laboratory Technician Relationship Specialty Start Date End Date Hilton Doty DO [address] [place] [address] PCP - General Family Medicine 09/15/14 Team Status: Inactive Member Role Status Dates Dr. Hilton Doty , DO Primary Care Provider, Referr ing Provider Active Saskia Carpenter , [employer]-C Attending Provider Active Team Status: Active Member Role Status Dates Dr. Hilton Doty , DO Primary Care Provider Active Dr. Priscilla Mart , DO Attending Provider, Referring Provider, Other Provider Active Team Status: Inactive Member Role Status Dates Dr. Hilton Doty , DO Primary Care Provider, Referr ing Provider Active Rnady CEE, PA Attending Provider Active Civil Laboratory Technician Relationship Specialty Start Date End Date Hilton Doty DO [address] [place] [address] PCP - General Family Medicine 09/15/14 Civil Laboratory Technician Relationship Specialty Start Date End Date Hilton Doty DO [address] [place] [address] PCP - General Family Medicine 09/15/14 Civil Laboratory Technician Relationship Specialty Start Date End Date Hilton Doty DO [address] [place] [address] PCP - General Family Medicine 09/15/14 Civil Laboratory Technician Relationship Specialty Start Date End Date Hilton Doty DO [address] [place] [address] PCP - General Family Medicine 09/15/14 Civil Laboratory Technician Relationship Specialty Start Date End Date Hilton Doty DO [address] [place] [address] PCP - General Family Medicine 09/15/14 Civil Laboratory Technician Relationship Specialty Start Date End Date Hilton Doty DO [address] [place] [address] PCP - General Family Medicine 09/15/14 Civil Laboratory Technician Relationship Specialty Start Date End Date Hilton Doty DO [address] [place] [address] PCP - General Family Medicine 09/15/14 Lisa Doll, MERCHANDISE MARKER.HOME CARE ADMINISTRATOR [address] [place] [address] Health Care Liaison Family Medicine 07/10/24 Anna Sheikh, MERCHANDISE MARKER.HOME CARE ADMINISTRATOR [address] [place] [address] [facility] Civil Laboratory Technician Relationship Specialty Start Date End Date Hilton Doty DO [address] [place] [address] PCP - General Family Medicine 09/15/14 Lisa Doll, MERCHANDISE MARKER.HOME CARE ADMINISTRATOR [address] [place] [address] Health Care Liaison Family Medicine 07/10/24 Anna Sheikh, MERCHANDISE MARKER.HOME CARE ADMINISTRATOR [address] [place] [address] [facility] 07/10/24 Civil Laboratory Technician Relationship Specialty Start Date End Date Hilton Doty DO [address] [place] [address] PCP - General Family Medicine 09/15/14 Lisa Doll, MERCHANDISE MARKER.HOME CARE ADMINISTRATOR [address] [place] [address] [facility]24 Anna Sheikh, MERCHANDISE MARKER.HOME CARE ADMINISTRATOR [address] [place] [address] [facility] 07/10/24 Civil Laboratory Technician Relationship Specialty Start Date End Date Hilton Doty DO [address] [place] [address] PCP - General Family Medicine 09/15/14 Lisa Doll, MERCHANDISE MARKER.HOME CARE ADMINISTRATOR [address] [place] [address] [facility] 07/10/24 JillianAnna, MERCHANDISE MARKER.HOME CARE ADMINISTRATOR [address] [place] [address] [facility] 07/10/24 Civil Laboratory Technician Relationship Specialty Start Date End Date Hilton Doty DO [address] [place] [address] PCP - General [facility] Medicine 09/15/14 Lisa Doll, MERCHANDISE MARKER.HOME CARE ADMINISTRATOR [address] [place] [address] [facility] 07/10/24 Anna Sheikh, MERCHANDISE MARKER.HOME CARE ADMINISTRATOR [address] [place] [address] [facility] 07/10/24 Civil Laboratory Technician Relationship Specialty Start Date End Date Hilton Doty DO [address] [place] [address] PCP - General Family Medicine 09/15/14 Lisa Doll, MERCHANDISE MARKER.HOME CARE ADMINISTRATOR [address] [place] [address] Health Care Liaison Family [facility] 07/10/24 [facility], MERCHANDISE MARKER.HOME CARE ADMINISTRATOR [address] [place] [address] [facility] 07/10[facility]24 Civil Laboratory Technician Relationship Specialty Start Date End Date Hilton Doty DO [address] [place] [address] PCP - General Family Medicine 09/15/14 Lisa Doll, MERCHANDISE MARKER.HOME CARE ADMINISTRATOR [address] [place] [address] [facility] 07/10/24 JillianAnna, MERCHANDISE MARKER.HOME CARE ADMINISTRATOR [address] [place] [address] [facility] 07/10[facility]24 Civil Laboratory Technician Relationship Specialty Start Date End Date Hilton Doty DO [address] [place] [address] PCP - General Family Medicine 09/15/14 Lisa Doll, MERCHANDISE MARKER.HOME CARE ADMINISTRATOR [address] [place] [address] Health Care Liaison Family Medicine 07/10/24 Anna Sheikh, MERCHANDISE MARKER.HOME CARE ADMINISTRATOR [address] [place] [address] Health Care Liaison [facility] 07/10/24 Civil Laboratory Technician Relationship Specialty Start Date End Date Hilton Doty DO [address] [place] [address] PCP - General Family Medicine 09/15/14 Anna Sheikh APRN.HOME CARE ADMINISTRATOR [address] [place] [address] Health Care Liaison [facility] 07/10/24 Team Status: Inactive Member Role Status Dates Dr. Hilton Doty DO Primary Care Provider Active Start: September 08, 2024 End: September 08, 2024 Dr. Hilton Doty DO Referring Provider Active Start: September 08, 2024 End: September 08, 2024 JAYE Montero Attending Provider Active Star t: September 08, 2024 End: September 08, 2024 Team Status: Inactive Member Role Status Dates Dr. Hilton Doty DO Primary Care Provider Active Start: September 21, 2024 End: September 21, 2024 JAYE Montero Attending Provider Active Star t: September 21, 2024 End: September 21, 2024 JAYE Montero Referring Provider Active Star t: September 21, 2024 End: September 21, 2024 Team Status: Active Member Role Status Dates Dr. Hilton Doty DO Primary Care Provider Active Start: September 21, 2024 Dr. Derek Barone MD Attending Provider Active S tart: September 21, 2024 Team Status: Inactive Member Role Status Dates Dr. Hilton Doty DO Primary Care Provider Active Start: September 22, 2024 End: September 22, 2024 Dr. Hilton Doty DO Attending Provider Active Start: September 22, 2024 End: September 22, 2024 Dr. Hilton Doty DO Referring Provider Active Start: September 22, 2024 End: September 22, 2024 Team Status: Inactive Member Role Status Dates Dr. Hilton Doty DO Primary Care Provider Active Start: September 26, 2024 End: September 26, 2024 Nilda Loya NP, PUBLISHING EDITOR-C Attending Provider Active Start: September 26, 2024 End: September 26, 2024 Nilda Loya NP, PUBLISHING EDITOR-C Referring Provider Active Start: September 26, 2024 End: September 26, 2024 Team Status: Inactive Member Role Status Dates Dr. Hilton Doty DO Primary Care Provider Active Start: October 13, 2024 End: October 13, 2024 Dr. Charlie Lombardo DO Referring Provider Active Start : October 13, 2024 End: October 13, 2024 Dr. Charlie Lombardo DO Emergency Provider Active Start : October 13, 2024 End: October 13, 2024 Team Status: Inactive Member Role Status Dates Dr. Hilton Doty DO Primary Care Provider Active Start: October 14, 2024 End: October 14, 2024 JAYE Montero Attending Provider Active Star t: October 14, 2024 End: October 14, 2024 JAYE Montero Referring Provider Active Star t: October 14, 2024 End: October 14, 2024 BUSTER Carrasco Other Provider Active Sta rt: October 14, 2024 End: October 14, 2024 Team Status: Inactive Member Role Status Dates Dr. Hilton Doty DO Primary Care Provider Active Start: October 13, 2024 End: October 13, 2024 Dr. Charlie Lombardo DO Attending Provider Active Start : October 13, 2024 End: October 13, 2024 Dr. Charlie Lombardo DO Referring Provider Active Start : October 13, 2024 End: October 13, 2024 Dr. Charlie Lombardo DO Emergency Provider Active Start : October 13, 2024 End: October 13, 2024 Team Status: Active Member Role Status Dates Dr. Hilton Doty DO Primary Care Provider Active Start: October 14, 2024 Dr. Derek Barone MD Attending Provider Active S tart: October 14, 2024 JAYE Montero Referring Provider Active Star t: October 14, 2024 Team Status: Inactive Member Role Status Dates Dr. Hilton Doty DO Primary Care Provider Active Start: October 26, 2024 End: October 26, 2024 BUSTER Carrasco Attending Provider Active Start: October 26, 2024 End: October 26, 2024 Rajinder Hinton , [employer] Referring Provider Active Start: October 26, 2024 End: October 26, 2024 Team Status: Active Member Role Status Dates Dr. Hilton Doty DO Primary Care Provider Active Start: October 26, 2024 Dr. Stone Quiñonez MD Attending Provider Active S tart: October 26, 2024 Civil Laboratory Technician Relationship Specialty Start Date End Date Hilton Doty DO [address] [place] [address] PCP - General Family Medicine 09/15/14 [facility] MERCHANDISE MARKER.HOME CARE ADMINISTRATOR [address] [place] [address] Health Care Liaison [facility] 07/10/24 Civil Laboratory Technician Relationship Specialty Start Date End Date Hilton Doty DO [address] [place] [address] PCP - General Family Medicine 09/15/14 JillianAnna, MERCHANDISE MARKER.HOME CARE ADMINISTRATOR [address] [place] [address] Health Care Liaison [facility] 07/10/24 Team Status: Inactive Member Role Status Dates Dr. Hilton Doty DO Primary Care Provider Active Start: November 02, 2024 End: November 02, 2024 Dr. Hilton Doty DO Referring Provider Active Start: November 02, 2024 End: November 02, 2024 JAYE Montero Attending Provider Active Star t: November 02, 2024 End: November 02, 2024 Team Status: Inactive Member Role Status Dates Dr. Hilton Doty DO Primary Care Provider Active Start: November 10, 2024 End: November 10, 2024 Dr. Hilton Doty DO Attending Provider Active Start: November 10, 2024 End: November 10, 2024 Dr. Hilton Doty DO Referring Provider Active Start: November 10, 2024 End: November 10, 2024 Civil Laboratory Technician Relationship Specialty Start Date End Date Hilton Doty DO [address] [place] [address] PCP - General Family Medicine 09/15/14 Anna Sheikh APRN.HOME CARE ADMINISTRATOR [address] [place] [address] Health Care Liaison [facility] 07/10/24 Team Status: Inactive Member Role Status Dates Dr. Hilton Doty DO Primary Care Provider Active Start: November 28, 2024 End: November 30, 2024 Dr. Hilton Doty DO Attending Provider Active Start: November 28, 2024 End: November 30, 2024 Team Status: Inactive Member Role Status Dates Dr. Hilton Doty DO Primary Care Provider Active Start: December 12, 2024 End: December 12, 2024 Dr. Hilton Doty DO Referring Provider Active Start: December 12, 2024 End: December 12, 2024 Dr. Priscilla Mart DO Attending Provider Activ e Start: December 12, 2024 End: December 12, 2024 Team Status: Inactive Member Role Status Dates Dr. Hilton Doty DO Primary Care Provider Active Start: December 12, 2024 End: December 12, 2024 Dr. Priscilla Mart DO Attending Provider Activ e Start: December 12, 2024 End: December 12, 2024 Dr. Priscilla Mart DO Referring Provider Activ e Start: December 12, 2024 End: December 12, 2024 Team Status: Inactive Member Role Status Dates Dr. Hilton Doty DO Primary Care Provider Active Start: December 19, 2024 End: December 19, 2024 Dr. Hilton Doty DO Referring Provider Active Start: December 19, 2024 End: December 19, 2024 Dr. Derek Barone MD Attending Provider Active S tart: December 19, 2024 End: December 19, 2024 Goals (unrecognized section and content) Goals may be documented in a n alternate sectionGoals may be documented in an alternate sectionGoals may be documented in an alternate sectionGoals may be documented in an alternate sectionGoals may be documented in an alternate sectionGoals may be documented in an alternate sectionGoals may be documented in an alternate sectionGoals may be documented in an alternate sectionGoals may be documented in an alternate sectionGoals may be documented in an alternate sectionGoals may be documented in an alternate sectionGoals may be documented in an alternate sectionGoals may be documented in an alternate sectionGoals may be documented in an alternate section INFORMATION SOURCE (unrecogn ized section and content) DATE CREATED AUTHOR 01/02/2025 [facility] DATE CREATED AUTHOR AUTHOR'S CHUCK MONTILLA 01/09/2025 [facility] FOR RECORDS PERTAINING TO PATIENTS WHO ARE [...] BE BASED ON THE PRIMARY CLINICAL RECORDS. [employer] provides no warranty or guarantee of the accuracy or completeness of information in this document.
[2025-01-10 09:49] LABS: Anion Gap 9 (5-15); BUN 9 mg/dL (4-19); BUN/Creat Ratio 10.2 RATIO (10-20); Calcium,Total 9.3 mg/dL (7.6-11.0); Carbon Dioxide 25.1 mmol/L (21.0-32.0); Chloride 105 mmol/L (98-108); EST Glomerular Filtration Rate 81 (>60); Estimated Creatinine Clearance 88.22 ml/min (50-250); Glucose 103 mg/dL (70-99); Potassium 4.2 mmol/L (3.3-5.1); Sodium Level 139 mmol/L (133-145)
[2025-01-10 10:15] LABS: hCG Titer Quant., Serum < 1 mIU/mL (<9 non-preg)
--- NOTE | 2025-01-10 12:10 | OP.PCM_ITS ---
Operative Report (Standard) Operative Information Date of Procedure: 01/10/25 Pre-Operative Diagnosis: Venous insufficiency and varicose veins with pain bilateral lower extremities Post-Operative Diagnosis: Same Surgery/Procedure Performed: IVC venogram Intravascular ultrasound inferior vena cava, bilateral common iliac veins, bilateral external iliac veins tennis racket repairer: No Type of Anesthesia: Local and Sedation,Conscious
--- NOTE | 2025-01-10 12:10 | PCM.OPRPT ---
Operative Report (Standard) Operative Information Date of Procedure: 01/10/25 Pre-Operative Diagnosis: Venous insufficiency and varicose veins with pain bilateral lower extremities Post-Operative Diagnosis: Same Surgery/Procedure Performed: IVC venogram Intravascular ultrasound inferior vena cava, bilateral common iliac veins, bilateral external iliac veins writer producer: No Type of Anesthesia: Local and Sedation,Conscious Procedure Start Time: 10:00 Procedure Stop Time: 10:30 Select all DRAINS/GRAFTS/IMPLANTS that apply: None Estimated Blood Loss: 3 Specimen collected: No Description of surgery: HPI: Patient is a 44-year-old female with bilateral lower extremity varicosities and pain. She has some focal areas of venous reflux but does not correlate well with the distribution of her symptoms so she presents now for venogram to assess for central venous compression. Description of procedure: Upon obtaining informed consent and verification correct patient procedure site the patient was taken to the [facility] where she was positioned prepped and draped in usual sterile fashion. Timeout was performed and conscious sedation administered with Versed and fentanyl. Skin overlying the left common femoral vein was anesthetized with 1% lidocaine the vessel accessed under ultrasound guidance with a micropuncture needle wire. This was then exchanged for micropuncture sheath through which hand-injection ilio caval venogram was performed which revealed a widened left common iliac vein with no significant pelvic collaterals visualized. Through the micropuncture sheath a Ayannah wire was advanced the micropuncture sheath exchanged for a short 8 Macanese sheath. Next skin overlying the right common femoral vein was anesthetized 1% lidocaine the vessel accessed under ultrasound guidance with a micropuncture needle and wire. This exchanged for a micropuncture sheath through which hand-injection ilio caval venogram was performed which revealed normal caliber common and external iliac veins with brisk contrast transit into the vena cava. Through the micropuncture sheath a J-wire was advanced and the micropuncture sheath exchanged for a short 8 Macanese sheath. Next an intravascular ultrasound probe was advanced via the left femoral access sheath and recorded pullback performed of the IVC, left common leg vein, left external iliac vein. The catheter and wire were then withdrawn advanced via the right femoral access sheath and recorded pullback performed of the IVC, right common iliac vein, right external iliac vein. 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 Given her degree of compression it was felt that she was not appropriate for intervention at this time given her clinical history so wires and sheath were withdrawn and manual pressure held for 10 minutes until hemostasis was obtained. The patient was then taken recovery with bedrest prior to discharge to home. Surgical Findings: See above Complications Complications: No
== END 2025-01-10 16:55 | disposition home or self-care (01) ==
PROVIDERS: PCP Student in an Organized Health Care Education/Training Program; Referring Provider Surgery Trauma Surgery; Visit Provider Surgery Trauma Surgery
DX: I83.813 Varicose veins of bilateral lower extremities with pain (principal); M06.9 Rheumatoid arthritis, unspecified; I87.2 Venous insufficiency (chronic) (peripheral); F41.9 Anxiety disorder, unspecified; Z79.899 Other long term (current) drug therapy; Z87.891 Personal history of nicotine dependence
CPT/HCPCS: 36010; 36415; 37252; 37253; 75825; 76937; 80048; 84702; 99152; 99153; C1753; C1769; C1894; Q9967

== ENCOUNTER → 2025-01-12 | Outpatient (CLI) | payer OTHER, SELFPAY ==
[2025-01-12 15:10] LABS: Hematocrit 39.6 % (37-47); Hemoglobin 13.2 g/dL (12.0-15.0); Mean Corp Hgb Conc 33.3 g/dL (32-36); Mean Platelet Vol. 10.4 fl (6.2-12.0); Platelet Count 223 K/mm3 (150-450); RBC Distribution Width CV 13.3 % (11.6-14.6); RBC Distribution Width SD 45.6 fl (35.1-43.9); Red Blood Count 4.26 M/mm3 (4.2-5.4); White Blood Count 5.6 K/mm3 (4.4-11.0)
[2025-01-12 15:47] LABS: Anion Gap 10 (5-15); BUN 12 mg/dL (4-19); BUN/Creat Ratio 13.9 RATIO (10-20); Calcium,Total 9.6 mg/dL (7.6-11.0); Chloride 104 mmol/L (98-108); Creatinine, Serum 0.85 mg/dL (0.70-1.20); EST Glomerular Filtration Rate 87 (>60); Glucose 87 mg/dL (70-99); Potassium 4.4 mmol/L (3.3-5.1); Sodium Level 140 mmol/L (133-145)
== END | disposition home or self-care (01) ==
LOC: LAB 13:40
PROVIDERS: Physician Assistant; PCP Student in an Organized Health Care Education/Training Program; Referring Provider Internal Medicine Cardiovascular Disease; Visit Provider Internal Medicine Cardiovascular Disease
DX: R53.83 Other fatigue (principal)
CPT/HCPCS: 36415; 80048; 85027

== ENCOUNTER → 2025-01-14 | Outpatient (CLI) | payer OTHER, SELFPAY ==
--- OUTSIDE RECORDS SUMMARY | 2025-01-14 12:15 | XMS RPT_ITS | CCD ---
Author Organization [facility] Care Team Providers Care Ballistics Teacher Name Role Phone Hilton Doty DO Primary Care Provider Dr. Hilton Doty Primary Care Provider Dr. Hilton Doty Referring Provider Vincenzo LEVELER, NUNU-Jessica Munguia Attending Provider Hilton Doty DO Primary Care Provider Dr. Priscilla Mart Attending Provider [phone] Dr. Hilton Doty Primary Care Provider Dr. Hilton Doty Referring Provider BUSTER Loya NP Attending Provider Dr. Priscilla Mart Attending Provider BUSTER Carpenter Attending Provider [phone] Priscilla Mart Referring Provider [phone] Dr. Priscilla Mart Other Provider JAYE Grove Attending Provider Hilton Doty DO Primary Care Provider Lavon MEDICAL ATTENDANT.Lisa ENAMORADO Unavailable Jillian MEDICAL ATTENDANT.Anna ENAMORADO Unavailable Dr. Hilton Doty DO Primary Care Provider [phone] Dr. Hilton Doty DO Referring Provider Laura Bowling Attending Provider Rai PA, Laura Referring Provider Dr. Deerk Barone MD Attending Provider Soren ADHIKARI, Dr. Canela Attending Provider Baldwin LEVELER-C, Nilda Attending Provider Baldwin LEVELER-C, Nilda Referring Provider Dr. Hilton Doty DO Primary Care Provider Dr. Hilton Doty DO Referring Provider Rai PA, Laura Attending Provider [phone] Cecelia PA, Laura Referring Provider [phone] Abisai ADKINS, Dr. Reed Attending Provider [phone] Soren ADHIKARI, Dr. Canela Attending Provider Vincenzo LEVELER-C, Nilda Attending Provider Baldwin LEVELER-C, Nilda Referring Provider Dr. Charlie Lombardo DO Referring Provider Dr. Charlie Lombardo DO Emergency Provider Knoble LEVELER-C, Rajinder Other Provider Munira ADHIKARI, Dr. Guerra Attending Provider Knoble LEVELER-C, Rajinder Attending Provider Knoble LEVELER-C, Rajinder Referring Provider Khang ADKINS, Dr. Ritter Attending Provider Dr. Priscilla Mart DO Attending Provider Dr. Priscilla Mart DO Referring Provider Dr. Hilton Doty DO Primary Care Provider Cecelia CEE, Laura Attending Provider [phone] Hilton Doty DO Referring Provider Cecelia PA, Laura Other Provider Abisai ADKINS, Dr. Reed Referring Provider [phone] Abisai ADKINS, Dr. Reed Other Provider Bill ADKINS, Dr. Villanueva Attending Provider Bill ADKINS, Dr. Villanueva Referring Provider DOTY, HILTON L Attending Unavailable DOTY, HILTON L Primary Care Unavailable DOTY, HILTON L Primary Care Unavailable DOTY, HILTON L Attending Unavailable DOTY, HILTON L Primary Care Unavailable RAJINDER HINTON Attending Unavailable DOTY, HILTON L Primary Care Unavailable DOTY, HILTON L Attending Unavailable DOTY, HILTON L Primary Care Unavailable DOTY, HILTON L Attending Unavailable DOTY, HILTON L Primary Care Unavailable SUPPAN, DORIS A Referring Unavailable SUPPAN, DORIS A Attending Unavailable DOTY, HILTON L Primary Care Unavailable DOTY, HILTON L Primary Care Unavailable DOTY, HILTON L Attending Unavailable Dariusz Raiison Referring Unavailable RaiLaura page Attending Unavailable Doty, Hilton Primary Care Unavailable Doty, Hilton Referring Unavailable Doty, Hilton Attending Unavailable Doty, Hilton Primary Care Unavailable Abisai, Derek Referring Unavailable Derek Barone Attending Unavailable Doty, Hilton Primary Care Unavailable Kay Khan Referring Unavailable Doty, Hilton Primary Care Unavailable Kay Khan Attending Unavailable Cecelia Laura Consulting Unavailable [place], Derek Referring Unavailable [place] UllaDerek Attending Unavailable Doty, Hilton Primary Care Unavailable Doty, Hilton Primary Care Unavailable Doty, Hilton Attending Unavailable Doty, Hilton Primary Care Unavailable Doty, Hilton Referring Unavailable Doty, Hilton Attending Unavailable Doty, Hilton Referring Unavailable Doty, Hilton Primary Care Unavailable Doty, Hilton Attending Unavailable Randy Grove Attending Unavailable Doty, Hilton Primary Care Unavailable Doty, Hilton Referring Unavailable Doty, Hilton Primary Care Unavailable Jasen Ortiz Attending Unavailable Doty, Hilton Primary Care Unavailable Ricki Del [place] Attending Unavailable Doty, Hilton Primary Care Unavailable Doty, Hilton Referring Unavailable Doty, Hilton Attending Unavailable Munira Charlie Referring Unavailable Jaspreet Lombardoy Attending Unavailable Doty, Hilton Primary Care Unavailable Doty, Hilton Primary Care Unavailable Doty, Hilton Referring Unavailable Doty, Hilton Attending Unavailable Vincenzo LEVELER, Nilda Referring Unavailable Vincenzo LEVELER, Nilda Attending Unavailable Doty, Hilton Primary Care Unavailable VeldePriscilla Referring Unavailabl e Doty, Hilton Primary Care Unavailable JuanisdePriscilla Attending Unavailabl e Doty, Hilton Primary Care Unavailable Doty, Hilton Attending Unavailable Rai, Laura Attending Unavailable Doty, Hilton Primary Care Unavailable Doty, Hilton Referring Unavailable Doty, Hilton Referring Unavailable VeldePriscilla Attending Unavailabl e Doty, Hilton Primary Care Unavailable Doty, Hilton Referring Unavailable Rai, Laura Attending Unavailable Doty, Hilton Primary Care Unavailable Rai, Laura Referring Unavailable Rai, Laura Attending Unavailable Knoble, Rajinder Consulting Unavailable Doty, Hilton Primary Care Unavailable Knoble, Rajinder Referring Unavailable Knoble, Rajinder Attending Unavailable Doty, Hilton Primary Care Unavailable Rai, Laura Referring Unavailable Rai, Laura Attending Unavailable Doty, Hilton Primary Care Unavailable Doty, Hilton Primary Care Unavailable Doty, Hilton Referring Unavailable Doty, Hilton Attending Unavailable Rai, Laura Referring Unavailable Abisai, Derek Attending Unavailable Doty, Hilton Primary Care Unavailable Stone Quiñonez Attending Unavailable Doty, Hilton Primary Care Unavailable Rai, Laura Consulting Unavailable [place], Derek Referring Unavailable Abisai, Derek Attending Unavailable Doty, Hilton Primary Care Unavailable Abisai, Derek Consulting Unavailable Abisai, Derek Attending Unavailable Doty, Hilton Primary Care Unavailable Nilda Loya NP Attending Unavailable Doty, Hilton Primary Care Unavailable Doty, Hilton Referring Unavailable Rai, Laura Referring Unavailable [place], Derek Attending Unavailable Doty, Hilton Primary Care Unavailable Akash Joe Attending Unavailable Rai, Laura Attending Unavailable Doty, Hilton Primary Care Unavailable Doty, Hilton Referring Unavailable Doty, Hilton Primary Care Unavailable Randy Grove Attending Unavailable Doty, Hilton Referring Unavailable Doty, Hilton Referring Unavailable Abisai, Derek Attending Unavailable Doty, Hilton Primary Care Unavailable Doty, Hilton Primary Care Unavailable Doty, Hilton Referring Unavailable Doty, Hilton Attending Unavailable Allergies Allergy Classification Reported Allergen(s) Allergy Type Date of Onset Reaction(s) Facility Penicillins (antibiotic) (3 sources) Penicillins Drug Allergy 4 Unknown [facility] (5 sources) Penicillins; Translations: [PENICILLINS] Drug Intolerance 4 Unknown [facility] Work Phone: (20 sources) Penicillins Drug Intolerance 4 Unknown [facility] Work Phone: (16 sources) Penicillins Allergy to substance 3 Unknown, Anaphylaxis [facility] (4 sources) Penicillins Drug Intolerance 4 Unknown [facility] (1 source) Penicillins Drug allergy (disorder) 5 [facility] Repository Medications Current Medications Medication Drug Class(es) Dates Sig (Normalized) Sig (Original) [id number] 200 actuat albuterol 0.09 mg/actuat metered dose [...] Start: 09-28-2015 take 2 tablets by mo uth once daily Cholecalciferol, Vitamin D3, 2,000 unit cap Take 2 tablets by mouth once daily. 60 capsule 11 09/28/2015 Active Comment on above: Take 2 tablets by mo uth once daily. FLUoxetine 10 mg oral capsule (9 sources) Serotonin Reuptake Inhibitor Start: 12-12-2024 take 1 capsule by mouth once daily Fluoxetine (Prozac) 10 mg capsule Active 10 mg PO daily December 12, 2024 12:00am Start: 10-26-2024 take 1 tablet by jose th once daily in the morning for anxiety [...] food. ondansetron 4 mg disintegrating oral tablet (9 sources) Serotonin-3 Receptor Antagonist Start: take 1 tablet by mouth every eight hours as needed for nausea Ondansetron 4 mg tablet,disintegrating Active 4 mg PO EVERY 8 HOURS NEEDED as needed for Nausea February 05, 2024 12:00am spironolactone 25 mg oral tablet (14 sources) Aldosterone Antagonist Start: take 1 tablet [...] / HYDROcodone bitartrate 5 mg oral tablet (16 sources) Opioid Agonist Start: 04-30-2017 End: 05-07-2017 [...] once daily. benzonatate 100 mg oral capsule (10 sources) Non-narcotic Antitussive Start: 09-26-2023 End: 10-14-2023 [...] the morning Take 1 tablet by jose twice daily. Take 1 tablets PO by mouth in the morning Take 1 tablet by jose twice daily. Take 1 tablet by jose two times a day. Take 2 tablets in th e AM and 1 tablet in the afternoon busPIRone hydrochloride 5 mg oral tablet (16 sources) Start: 017 End: Buspirone 5 MG tablet Discontinued 5 [...] on above: Take 1 tablet by jose once daily. As needed for edema TAKE 1 TABLET BY JOSE ONCE DAILY NEEDED FOR EDEMA dexamethasone 6 mg oral tablet (9 sources) Corticosteroid Start: End: take 1 tablet by mouth once daily Dexamethasone 6 mg tablet Discontinued 6 mg PO DAILY May 26, 2024 12:00am December 12, 2024 9:40am doxycycline hyclate 100 mg oral capsule (10 sources) Tetracycline-class Drug Start: End: take 1 capsule by mouth twice daily Doxycycline Hyclate 100 mg capsule Discontinued 100 mg PO TWICE A DAY 22 05November 20, 2023 12:00am November 29, 2023 12:00am November 30, 2023 12:06am furosemide 20 mg oral tablet (20 sources) Loop Diuretic Start: 020 End: take 0.5-1 tablets by mouth once daily at breakfast furosemide (LASIX) 20 mg tablet Take 0.5-1 tablets by mouth daily with breakfast. 90 tablet 1 12/12/2019 10/17/2024 Discontinued Comment on above: Take 0.5-1 tablets b y mouth daily with breakfast. levonorgestrel 0.651478 mg/hr intrauterine system (20 sources) Progestin, Progestin-containing [...] Comment on above: Take 1 capsule by [facility] once daily for 90 days. BMI 35.67 Take 1 capsule by [facility] once daily for 90 days. BMI 31.96 Take 1 capsule by [facility] once daily for 90 days. BMI 30.37 Take 1 capsule by [facility] once daily for 90 days. BMI 30 Take 1 capsule by [facility] once daily for 90 days. BMI 31.32 [...] 04, 2024 12:00am November 02, 2024 11:32am Aujepyrum-Okfmljwcn-Swvfoijs (13 sources) Start: 08-16-2023 End: 09-24-2023 Lryxfkqup-Grpiwbmzg-Tqfjnnwj (Myfembcharles) 40-1-0.5 mg tablet Discontinued 1 {tbl} PO DAILY August 16, 2023 1:00am September 24, 2023 9:38am Start: 08-16-2023 End: 09-24-2023 Avxkmxxqp-Ysqhgfwqx-Ytepoiwb dr (Myfembree) 40-1-0.5 mg tablet Discontinued 1 {tbl} PO DAILY August 16, 2023 12:00am September 24, 2023 8:38am Start: 08-16-2023 End: 09-24-2023 take 1 tablet by mouth once daily Mcdfstohj-Nnhjvwxin-Aytxuonxlf (Myfembre e) 40-1-0.5 mg tablet Discontinued 1 TABLET PO DAILY August 16, 2023 1:00am September 24, 2023 9:38am Start: 08-16-2023 take 1 tablet by [facility] once daily Iorrvrzhj-Vhsvmsedo-Jsjshggtrk (Myfembre e) 40-1-0.5 mg tablet Active 1 TABLET PO DAILY August 16, 2023 12:00am Problems Active Problems Problem Classification Problem Date Documented Date Episodic/Chronic Adjustment disorders (20 sources) Reactive depression (situational); Translations: [Adjustment disorder with depressed mood] Onset: 11-27-2022 Chronic Anxiety disorders (20 sources) Generalized anxiety disorder; Translations: [Generalized anxiety disorder] Onset: 03-04-2019 03-04-2019 Chronic Cardiac dysrhythmias (16 sources) ECG: sinus bradycardia; Translations: [Bradycardia, unspecified] [...] Onset: 07-18-2019 07-18-2019 Chronic E Codes: Fall (9 sources) Fall from ladder; Translations: [Fall on and from ladder, initial encounter] 02-13-2024 Episodic Fracture of upper limb (16 sources) Fracture of distal phalanx of finger [...] other respiratory manifestations] 09-26-2023 Episodic Intracranial injury (9 sources) Concussion injury of body structure; Translations: [...] 04-25-2024 Chronic Other and unspecified benign neoplasm (16 sources) Leiomyoma; Translations: [Benign neoplasm of connective [...] gangrene] Onset: 09-15-2014 Chronic Other circulatory disease (16 sources) H/O: hypertension; Translations: [Personal history of other diseases of the circulatory system] 03-12-2020 Episodic Other connective tissue disease (16 sources) H/O: rheumatoid arthritis; Translations: [Personal history of other diseases of the musculoskeletal system and connective tissue] 03-12-2020 Episodic Other connective tissue disease (1 source) Other specified soft tissue disorders; Translations: [Other specified soft tissue disorders] Onset: 01-03-2025 Episodic Other connective tissue disease (1 source) Pain in leg, unspecified; Translations: [Pain in leg, unspecified] Onset: 11-02-2024 Episodic Other diseases of veins and lymphatics (9 sources) Vascular insufficiency; Translations: [Venous insufficiency (chronic) (peripheral)] 09-08-2024 Episodic Other diseases of veins and lymphatics (2 sources) Venous insufficiency (chronic) (peripheral); Translations: [Venous insufficiency (chronic) (peripheral)] Onset: 01-11-2025 Episodic Other female genital disorders (1 source) Postcoital bleeding; Translations: [Postcoital and contact bleeding] Chronic Other female genital disorders (16 sources) Abnormal uterine bleeding; Translations: [Abnormal uterine [...] injuries and conditions due to external causes (9 sources) Closed injury of head; Translations: [Unspecified injury of head, initial encounter] 02-13-2024 Episodic Other lower respiratory disease (20 sources) Dyspnea; Translations: [Shortness of breath] Onset: 04-25-2024 04-25-2024 Episodic Other lower respiratory disease (5 sources) Wheezing; Translations: [Wheezing] 10-26-2024 Episodic Other lower respiratory disease (3 sources) Shortness of breath; Translations: [SOB (shortness of breath)] Onset: 04-25-2024 Episodic Other lower respiratory disease (2 sources) Wheezing; Translations: [Wheezing] Onset: 10-26-2024 Episodic Other lower respiratory disease (1 source) [...] Chronic Other nutritional; endocrine; and metabolic disorders (2 sources) Obesity, unspecified; Translations: [Obesity, Class I, [...] unspecified] 11-20-2023 Episodic Pleurisy; pneumothorax; pulmonary collapse (16 sources) Pleurisy; Translations: [Pleurisy] 03-13-2020 Episodic Residual codes; unclassified (10 sources) Past history of procedure; Translations: [Other specified postprocedural states] 10-14-2023 Episodic Comment on above: uterine ablation 10/02 024 -JV Residual codes; unclassified (1 source) Other specified postprocedural states; Translations: [Other postprocedural status] 10-14-2023 Episodic Residual codes; unclassified (2 sources) Localized edema; Translations: [Bilateral leg edema] Onset: 01-21-2022 Episodic Rheumatoid arthritis and related disease (20 sources) Inflammatory polyarthropathy; Translations: [Inflammatory polyarthropathy] Onset: 04-14-2015 04-14-2015 Chronic Screening and history of mental health and substance abuse codes (16 sources) H/O: depression; Translations: [Personal history of other mental and behavioral disorders] 03-12-2020 Episodic Sexually transmitted infections (not HIV or hepatitis) (13 sources) Human papillomavirus deoxyribonucleic acid test positive, high risk on cervical specimen; Translations: [Cervical high risk human papillomavirus (HPV) DNA test positive] 09-14-2023 Episodic Superficial injury; contusion (9 sources) Contusion of right shoulder; Translations: [Contusion [...] Date Documented Da te Episodic/Chronic Administrative/social admission (1 source) Dietary counseling and surveillance; Translations: [Dietary counseling and surveillance] Onset: 02-05-2024 Episodic Fluid and electrolyte disorders (20 sources) Hypokalemia; Translations: [Hypokalemia] Onset: 04-25-2024 04-25-2024 Episodic Inflammation; infection of eye (except that caused by tuberculosis or sexually transmitteddisease) (20 sources) Eczematous dermatitis of bilateral eyelids; Translations: [Eczematous dermatitis of right upper eyelid] Onset: 01-21-2022 Episodic Nausea and vomiting (20 sources) Nausea; Translations: [Nausea] Onset: 04-25-2024 04-25-2024 Episodic Nonspecific chest pain (18 sources) Chest wall pain; Translations: [Other chest [...] thoracic spine] Onset: 02-08-2024 02-08-2024 Episodic Unclassified (16 sources) History of ureteral stone 04-21-2022 Results Test Name Value Interpretation Reference Range Facility Anion gap in Serum or Plasma Ordered By: Laura Rai on 01-12-2025 Anion gap [Moles/Vol] 10 mmol/L 12-15 [facility] BUN/creatinine ratioOrdered By: Laura Rai on 01-12-2025 Urea nitrogen/Creatinine [Mass ratio] 13.9 mg/mg - [facility] Basic Metabolic Profile (BMP )on 01-12-2025 BUN/CRE 13.9 RATIO Normal 05-22 [facility] Comment on above: Performed By: #### L 501.2450, L503.0105, L500.4050, L506.1000, L501.9520, L100.0100 #### [facility] [address] [place], [address] Calcium [Mass/Vol] 9.6 mg/dL Normal 7.6-11.0 [facility] Comment on above: Performed By: #### L 501.2450, L503.0105, L500.4050, L506.1000, L501.9520, L100.0100 #### [facility] [address] [place], [address] Chloride [Moles/Vol] 104 mmol/L Normal 98-108 [facility] Comment on above: Performed By: #### L 501.2450, L503.0105, L500.4050, L506.1000, L501.9520, L100.0100 #### [facility] [address] [place], [address] CO2 [Moles/Vol] 26.0 mmol/L Normal 21.0-32.0 [facility] Comment on above: Performed By: #### L 501.2450, L503.0105, L500.4050, L506.1000, L501.9520, L100.0100 #### [facility] [address] [place], [address] Creatinine [Mass/Vol] 0.85 mg/dL Normal 0.70-1.20 [facility] Comment on above: Performed By: #### L 501.2450, L503.0105, L500.4050, L506.1000, L501.9520, L100.0100 #### [facility] [address] [place], [address] GAP 10 Normal 5-15 [facility] Comment on above: Performed By: #### L 501.2450, L503.0105, L500.4050, L506.1000, L501.9520, L100.0100 #### [facility] [address] [place], [address] GFR/1.73 sq M.predicted among non-blacks MDRD (S/P/Bld) [Vol rate/Area] 87 mL/min/{1.73_m2} Normal >60 [facility] Comment on above: Result Comment: mL/m in/1.73m2 CKD-EPI Creatinine Equation (2020) Performed By: #### L 501.2450, L503.0105, L500.4050, L506.1000, L501.9520, L100.0100 #### [facility] [address] [place], [address] Glucose [Mass/Vol] 87 mg/dL Normal 70-99 [facility] Comment on above: Performed By: #### L 501.2450, L503.0105, L500.4050, L506.1000, L501.9520, L100.0100 #### [facility] [address] [place], [address] Potassium [Moles/Vol] 4.4 mmol/L Normal 3.3-5.1 [facility] Comment on above: Performed By: #### L 501.2450, L503.0105, L500.4050, L506.1000, L501.9520, L100.0100 #### [facility] [address] [place], [address] Sodium [Moles/Vol] 140 mmol/L Normal 133-145 [facility] Comment on above: Performed By: #### L 501.2450, L503.0105, L500.4050, L506.1000, L501.9520, L100.0100 #### [facility] [address] [place], [address] Urea nitrogen [Mass/Vol] 12 mg/dL Normal 4-19 [facility] Comment on above: Performed By: #### L 501.2450, L503.0105, L500.4050, L506.1000, L501.9520, L100.0100 #### [facility] [address] [place], [address] CBC-Complete Blood Cnt No Di ffon 01-12-2025 Erythrocyte distribution width (RBC) [Ratio] 13.3 % Normal 11.6-14.6 [facility] Comment on above: Performed By: #### L 501.2450, L503.0105, L500.4050, L506.1000, L501.9520, L100.0100 #### [facility] [address] [place], [address] Hematocrit (Bld) [Volume fraction] 39.6 % Normal 37-47 [facility] Comment on above: Performed By: #### L 501.2450, L503.0105, L500.4050, L506.1000, L501.9520, L100.0100 #### [facility] [address] [place], [address] Hemoglobin (Bld) [Mass/Vol] 13.2 g/dL Normal 12.0-15.0 [facility] Comment on above: Performed By: #### L 501.2450, L503.0105, L500.4050, L506.1000, L501.9520, L100.0100 #### [facility] [address] [place], [address] MCH (RBC) [Entitic mass] 31.0 pg Normal 27.0-32.0 [facility] Comment on above: Performed By: #### L 501.2450, L503.0105, L500.4050, L506.1000, L501.9520, L100.0100 #### [facility] [address] [place], [address] MCHC (RBC) [Mass/Vol] 33.3 g/dL Normal 32-36 [facility] Comment on above: Performed By: #### L 501.2450, L503.0105, L500.4050, L506.1000, L501.9520, L100.0100 #### [facility] [address] [place], [address] MCV (RBC) [Entitic vol] 93.0 fL Normal 81-99 [facility] Comment on above: Performed By: #### L 501.2450, L503.0105, L500.4050, L506.1000, L501.9520, L100.0100 #### [facility] [address] [place], [address] Platelet mean volume (Bld) [Entitic vol] 10.4 fL Normal 6.2-12.0 [facility] Comment on above: Performed By: #### L 501.2450, L503.0105, L500.4050, L506.1000, L501.9520, L100.0100 #### [facility] [address] [place], [address] Platelets (Bld) [#/Vol] 223 10*3/uL Normal 150-450 [facility] Comment on above: Performed By: #### L 501.2450, L503.0105, L500.4050, L506.1000, L501.9520, L100.0100 #### [facility] [address] [place], [address] RBC (Bld) [#/Vol] 4.26 10*6/uL Normal 4.2-5.4 [facility] Comment on above: Performed By: #### L 501.2450, L503.0105, L500.4050, L506.1000, L501.9520, L100.0100 #### [facility] [address] [place], [address] RDW SD 45.6 fl High 35.1-43.9 [facility] Comment on above: Performed By: #### L 501.2450, L503.0105, L500.4050, L506.1000, L501.9520, L100.0100 #### [facility] [address] [place], [address] WBC (Bld) [#/Vol] 5.6 10*3/uL Normal 4.4-11.0 [facility] Comment on above: Performed By: #### L 501.2450, L503.0105, L500.4050, L506.1000, L501.9520, L100.0100 #### [facility] [address] [place], [address] Carbon dioxide, total [Moles /volume] in Central venous bloodOrdered By: Laura Rai on 01-12-2025 CO2 [Moles/Vol] 26.0 mmol/L 21.0-32.0 [facility] Chloride assayOrdered By: Saul Rai on 01-12-2025 Chloride [Moles/Vol] 104 mmol/L 98-108 [facility] Erythrocyte distribution wid th ratioOrdered By: Laura Rai on 01-12-2025 Erythrocyte distribution width (RBC) [Ratio] 13.3 % 11.6-14.6 [facility] [facility] Erythrocyte distribution wid th standard deviationOrdered By: Laura Rai on 01-12-2025 Erythrocyte distribution width (RBC) [Ratio] 45.6 fl High 35.1-43.9 [facility] Glomerular filtration rate ( GFR) estimation/1.73 sq m using serum, plasma, or whole bOrdered By: Laura Rai on 01-12-2025 GFR/1.73 sq M.predicted among non-blacks MDRD (S/P/Bld) [Vol rate/Area] 87 mL/min/{1.73_m2} >60 [facility] Comment on above: mL/min/1.73m2 CKD-EP I Creatinine Equation (2020) Hematocrit Auto (Bld) [Volum e fraction]Ordered By: Laura Rai on 01-12-2025 Hematocrit (Bld) [Volume fraction] 39.6 % 37-47 [facility] Hemoglobin measurementOrdere d By: Laura Rai on 01-12-2025 Hemoglobin (Bld) [Mass/Vol] 13.2 g/dL 12.0-15.0 [facility] MCV (mean corpuscular volume ) determinationOrdered By: Laura Rai on 01-12-2025 MCV (RBC) [Entitic vol] 93.0 fL 81-99 [facility] Mean corpuscular hemoglobin (MCH) determinationOrdered By: Laura Rai on 01-12-2025 MCH (RBC) [Entitic mass] 31.0 pg 27.0-32.0 [facility] Mean corpuscular hemoglobin concentration (MCHC) determinationOrdered By: Laura Rai on 01-12-2025 MCHC (RBC) [Mass/Vol] 33.3 g/dL 32-36 [facility] Mean platelet volume determi nationOrdered By: Laura Rai on 01-12-2025 Platelet mean volume (Bld) [Entitic vol] 10.4 fL 6.2-12.0 [facility] Platelet countOrdered By: Saul Rai on 01-12-2025 Platelets (Bld) [#/Vol] 223 10*3/uL 150-450 [facility] Potassium measurement (mass/ volume)Ordered By: Laura Rai on 01-12-2025 Potassium (Unsp spec) [Mass/Vol] 4.4 mmol/L 3.3-5.1 [facility] RBC Auto (Bld) [#/Vol]Ordere d By: Laura Rai on 01-12-2025 RBC (Bld) [#/Vol] 4.26 10*6/uL 4.2-5.4 [facility] Serum creatinine measurement (mass/volume)Ordered By: Laura Rai on 01-12-2025 Creatinine [Mass/Vol] 0.85 mg/dL 0.70-1.20 [facility] Serum glucose measurement (m ass/volume)Ordered By: Laura Rai on 01-12-2025 Glucose [Mass/Vol] 87 mg/dL 70-99 [facility] Serum or plasma calcium willie urement (mass/volume)Ordered By: Laura Rai on 01-12-2025 Calcium [Mass/Vol] 9.6 mg/dL 7.6-11.0 [facility] Serum or plasma urea nitroge n measurement (mass/volume)Ordered By: Laura Rai on 01-12-2025 Urea nitrogen [Mass/Vol] 12 mg/dL 4-19 [facility] Sodium levelOrdered By: Jose Ramon Rai on 01-12-2025 Sodium [Moles/Vol] 140 mmol/L 133-145 [facility] White blood cell (WBC) count Ordered By: Laura Rai on 01-12-2025 WBC (Bld) [#/Vol] 5.6 10*3/uL 4.4-11.0 [facility] Anion gap in Serum or Plasma Ordered By: Derek Barone on 01-10-2025 Anion gap [Moles/Vol] 9 mmol/L - [facility] BUN/creatinine ratioOrdered By: Derek Barone on 01-10-2025 Urea nitrogen/Creatinine [Mass ratio] 10.2 mg/mg - [facility] Basic Metabolic Profile (BMP )on 01-10-2025 BUN/CRE 10.2 RATIO Normal 05-22 [facility] Comment on above: Performed By: #### L 501.2450, L503.0105, L500.4050, L506.1000, L501.9520, L100.0100 #### [facility] [address] [place], [address] Calcium [Mass/Vol] 9.3 mg/dL Normal 7.6-11.0 [facility] Comment on above: Performed By: #### L 501.2450, L503.0105, L500.4050, L506.1000, L501.9520, L100.0100 #### [facility] [address] [place], [address] Chloride [Moles/Vol] 105 mmol/L Normal 98-108 [facility] Comment on above: Performed By: #### L 501.2450, L503.0105, L500.4050, L506.1000, L501.9520, L100.0100 #### [facility] [address] [place], [address] CO2 [Moles/Vol] 25.1 mmol/L Normal 21.0-32.0 [facility] Comment on above: Performed By: #### L 501.2450, L503.0105, L500.4050, L506.1000, L501.9520, L100.0100 #### [facility] [address] [place], [address] Creatinine [Mass/Vol] 0.90 mg/dL Normal 0.70-1.20 [facility] Comment on above: Performed By: #### L 501.2450, L503.0105, L500.4050, L506.1000, L501.9520, L100.0100 #### [facility] [address] [place], [address] ECRCL 88.22 ml/min Normal 50-250 [facility] Comment on above: Performed By: #### L 501.2450, L503.0105, L500.4050, L506.1000, L501.9520, L100.0100 #### [facility] [address] [place], [address] GAP 9 Normal 5-15 [facility] Comment on above: Performed By: #### L 501.2450, L503.0105, L500.4050, L506.1000, L501.9520, L100.0100 #### [facility] [address] [place], [address] GFR/1.73 sq M.predicted among non-blacks MDRD (S/P/Bld) [Vol rate/Area] 81 mL/min/{1.73_m2} Normal >60 [facility] Comment on above: Result Comment: mL/m in/1.73m2 CKD-EPI Creatinine Equation (2020) Performed By: #### L 501.2450, L503.0105, L500.4050, L506.1000, L501.9520, L100.0100 #### [facility] [address] [place], [address] Glucose [Mass/Vol] 103 mg/dL High 70-99 [facility] Comment on above: Performed By: #### L 501.2450, L503.0105, L500.4050, L506.1000, L501.9520, L100.0100 #### [facility] [address] [place], [address] Potassium [Moles/Vol] 4.2 mmol/L Normal 3.3-5.1 [facility] Comment on above: Performed By: #### L 501.2450, L503.0105, L500.4050, L506.1000, L501.9520, L100.0100 #### [facility] [address] [place], [address] Sodium [Moles/Vol] 139 mmol/L Normal 133-145 [facility] Comment on above: Performed By: #### L 501.2450, L503.0105, L500.4050, L506.1000, L501.9520, L100.0100 #### [facility] [address] [place], [address] Urea nitrogen [Mass/Vol] 9 mg/dL Normal 4-19 [facility] Comment on above: Performed By: #### L 501.2450, L503.0105, L500.4050, L506.1000, L501.9520, L100.0100 #### [facility] [address] [place], [address] Carbon dioxide, total [Moles /volume] in Central venous bloodOrdered By: Derek Barone on 01-10-2025 CO2 [Moles/Vol] 25.1 mmol/L 21.0-32.0 [facility] Chloride assayOrdered By: Thien Barone on 01-10-2025 Chloride [Moles/Vol] 105 mmol/L 98-108 [facility] Glomerular filtration rate ( GFR) estimation/1.73 sq m using serum, plasma, or whole bOrdered By: Derek Barone on 01-10-2025 GFR/1.73 sq M.predicted among non-blacks MDRD (S/P/Bld) [Vol rate/Area] 81 mL/min/{1.73_m2} >60 [facility] Comment on above: mL/min/1.73m2 CKD-EP I Creatinine Equation (2020) Operative Reporton Operative Report [facility] Medical Records Department [address] [place] [address] Operative Report 01/10/25 1210 MR#: [id number] Acct: [id number] Name: WANDA CAAL Rep #: [id number] : 1980 44 From: Derek Barone MD PCP: Dr. Hilton Doty, DO Status:[facility] Location: [facility] Operative Report (Standard) Operative Information Date of Procedure: 01/10/25 Pre-Operative Diagnosis: Venous insufficiency and varicose veins with pain bilateral lower extremities Post-Operative Diagnosis: Same Surgery/Procedure Performed: IVC venogram Intravascular ultrasound inferior vena cava, bilateral common iliac veins, bilateral external iliac veins watch dial printer: No Type of Anesthesia: Local and Sedation,Conscious Procedure Start Time: 10:00 Procedure Stop Time: 10:30 Select all DRAINS/GRAFTS/IMPLANT S that apply: None Estimated Blood Loss: 3 Specimen collected: No Description of surgery: HPI: Patient is a 44-year-old female with bilateral lower extremity varicosities and pain. She has some focal areas of venous reflux but does not correlate well with the distribution of her symptoms so she presents now for venogram to assess for central venous compression. Description of procedure: Upon obtaining informed consent and verification correct patient procedure site the patient was taken to the Senior Information Systems Architect where she was positioned prepped and draped in usual sterile fashion. Timeout was performed and conscious sedation administered with Versed and fentanyl. Skin overlying the left common femoral vein was anesthetized with 1% lidocaine the vessel accessed under ultrasound guidance with a micropuncture needle wire. This was then exchanged for micropuncture sheath through which hand-injection ilio caval venogram was performed which revealed a widened left common iliac vein with no significant pelvic collaterals visualized. Through the micropuncture sheath a Bentson wire was advanced the micropuncture sheath exchanged for a short 8 Gibraltarian sheath. Next skin overlying the right common femoral vein was anesthetized 1% lidocaine the vessel accessed under ultrasound guidance with a micropuncture needle and wire. This exchanged for a micropuncture sheath through which hand-injection ilio caval venogram was performed which revealed normal caliber common and external iliac veins with brisk contrast transit into the vena cava. Through the micropuncture sheath a J-wire was advanced and the micropuncture sheath exchanged for a short 8 Gibraltarian sheath. Next an intravascular ultrasound probe was advanced via the left femoral access sheath and recorded pullback performed of the IVC, left common leg vein, left external iliac vein. The catheter and wire were then withdrawn advanced via the right femoral access sheath and recorded pullback performed of the IVC, right common iliac vein, right external iliac vein. 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 Given her degree of compression it was felt that she was not appropriate for intervention at this time given her clinical history so wires and sheath were withdrawn and manual pressure held for 10 minutes until hemostasis was obtained. The patient was then taken recovery with bedrest prior to discharge to home. Surgical Findings: See above Complications Complications: No 01/10/25 1215 Cosigner Signature (if applicable): CC: JAYE Montero; Dr. Derek Barone MD; Dr. Hilton Doty DO Signed Normal [facility] Potassium measurement (mass/ volume)Ordered By: Derek Barone on 01-10-2025 Potassium (Unsp spec) [Mass/Vol] 4.2 mmol/L 3.3-5.1 [facility] Serum creatinine measurement (mass/volume)Ordered By: Derek Barone on 01-10-2025 Creatinine [Mass/Vol] 0.90 mg/dL 0.70-1.20 [facility] Serum glucose measurement (m ass/volume)Ordered By: Derek Barone on 01-10-2025 Glucose [Mass/Vol] 103 mg/dL High 70-99 [facility] Serum human chorionic gonado tropin detection for pregnancyOrdered By: Derek Barone on 01-10-2025 HCG ( test) Ql < 1 mIU/mL <9 [facility] Comment on above: Gestational Age0.2-1 Week: 5-50 mIU/mL1-2 Weeks: 50-500 mIU/mL2-3 Weeks: 100-5000 mIU/mL3-4 Weeks: 500-10,000 mIU/mL4-5 Weeks:1000-50,000 mIU/mL5-6 Weeks: 10,000-100,000 mIU/mL6-8 Weeks: 15,000-200,000 mIU/mL2-3 Months:10,000-100,000 mIU/mL Serum or plasma calcium willie urement (mass/volume)Ordered By: Derek Barone on 01-10-2025 Calcium [Mass/Vol] 9.3 mg/dL 7.6-11.0 [facility] Serum or plasma urea nitroge n measurement (mass/volume)Ordered By: Derek Barone on 01-10-2025 Urea nitrogen [Mass/Vol] 9 mg/dL 4-19 [facility] Sodium levelOrdered By: Derekkendra Barone on 01-10-2025 Sodium [Moles/Vol] 139 mmol/L 133-145 [facility] hCG Titer Quant., Serumon HCG QUANT. < 1 Normal <9 non-preg [facility] Comment on above: Result Comment: Gest ational Age 0.2-1 Week: 5-50 mIU/mL 1-2 Weeks: 50-500 mIU/mL 2-3 Weeks: 100-5000 mIU/mL 3-4 Weeks: 500-10,000 mIU/mL 4-5 Weeks:1000-50,000 mIU/mL 5-6 Weeks: 10,000-100,000 mIU/mL 6-8 Weeks: 15,000-200,000 mIU/mL 2-3 Months:10,000-100,000 mIU/mL Performed By: #### L 501.2450, L503.0105, L500.4050, L506.1000, L501.9520, L100.0100 #### [facility] [address] [place], [address] [facility] 12-30-2024 [facility] Telephone (FAMPWS) WANDA CAAL ([id number]) 1980 F Date Time Provider Department 12/30/24 HILTON DOTY [facility] During your visit today, we recorded the following information about you: Frank Obando, RN 12/30/2024 1:05 PM Signed Patient calls [...] Signed Patent states that Dr. Doty could veteran appeals reviewer's notes from [facility], if she is able. [place] vascular providers are Laura Rai and Dr. Barone. Pt also states she had a STAT US of her leg completed on Thursday and it was negative for blood clot. ELSIE Clemens BethOLU 01/09/2025 4:34 PM Signed Patient calling surgery is tomorrow and she is very anxious and wanted PCP opinion. See note below. Ngoc Ervin RN 01/09/2025 5:09 PM Addendum Patient calling and states she did not realize that she was suppose to contact her PCP for guidance on if she should hold any of her medications prior to her cath procedure scheduled at [facility] tomorrow on 01/10/25 to put dye and stent into her left leg. ELSIE Clemens Alyson Taylor, APRN.FEI 01/11/2025 10:59 AM Signed This was 2 days ago, please call and confirm this was handled. Thank you, Lisa Doll APRN.Char Reyes LPN 01/11/2025 11:44 AM Signed Appt. made. Allergies As of Date: 12/30/2024 Noted Allergy Reaction PENICILLINS 08/30/2013 16 - Unknown Date Reviewed: 11/16/2024 Reviewed by: Hilton Doty DO - Fully Assessed Reason for Visit: Patient Update [1234] Prescriptions as of 01/11/2025 - hydrOXYchloroQUINE (PLAQUENIL) 200 mg tablet Take [...] Situational depression [F43.21] 11/27/2022 Varicose veins of vinnie (more content not included)... Normal [facility] Venous Duplex US, Unilateral on 12-30-2024 Venous Duplex US, Unilateral [facility] [address] [place] [address] Venous Duplex US, Unilateral 12/30/24 1456 MR#: [id number] Acct: [id number] Name: WANDA CAAL Rep #: [id number] : 1980 44 From: Derek Barone MD [...] Date Dictated: 12/30/24 1456 Date Transcribed: 01/05/25945 Swimming Pool Attendant: Signed [facility] MR/BMS.Son 12-19-2024 MR/BMS.[facility] [address] [place] [address] OFFICE VISIT Date of Service: 12/19/24 MR#: [id number] Acct: [id number] Name: WANDA CALA Rep #: [id number] : 1980 Provider: Dr. Derek Barone MD Age/Sex: 44/F Location: 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 We had initially [...] abnormal h (more content not included)... Normal [facility] PAP IG HPV APTIMA 16/18,45on 12-14-2024 ADEQ Comment Normal . [facility] Comment on above: Order Comment: Speci men Comment: [id number] Comment: No. of containers..01 ThinPrep Vial Result Comment: Sati sfactory for evaluation. Endocervical and/or squamous metaplastic cells (endocervical component) are present. Performed By: #### L 501.2450, L503.0105, L500.4050, L506.1000, L501.9520, L100.0100 #### [facility] [address] [place], [place], [address] COMM . Normal . [facility] Comment on above: Order Comment: Speci men Comment: [id number] Comment: No. of containers..01 ThinPrep Vial Performed By: #### L 501.2450, L503.0105, L500.4050, L506.1000, L501.9520, L100.0100 #### [facility] [address] [place], [place], [address] COMMENT Comment Normal . [facility] Comment on above: Order Comment: Speci men Comment: [id number] Comment: No. of containers..01 ThinPrep Vial Result Comment: This liquid based ThinPrep(R) pap test was screened with the use of an image guided system. Performed By: #### L 501.2450, L503.0105, L500.4050, L506.1000, L501.9520, L100.0100 #### [facility] [address] [place], [place], [address] DIAG Comment Normal . [facility] Comment on above: Order Comment: Speci men Comment: [id number] Comment: No. of containers..01 ThinPrep Vial Result Comment: NEGA TIVE FOR INTRAEPITHELIAL LESION OR MALIGNANCY. Performed By: #### L 501.2450, L503.0105, L500.4050, L506.1000, L501.9520, L100.0100 #### [facility] [address] [place], [place], [address] HPV APTIMA, HR Negative Normal Negative [facility] Comment on above: Order Comment: Speci men Comment: [id number] Comment: No. of containers..01 ThinPrep Vial Result Comment: This nucleic acid amplification test detects fourteen high- risk HPV types (16,18,31,33,35,39,45,51,52,56,58,59,66,68) without differentiation. Performed By: #### L 501.2450, L503.0105, L500.4050, L506.1000, L501.9520, L100.0100 #### [facility] [address] [place], [place], [address] HPV Kaylie Rfx Comment Normal . [facility] Comment on above: Order Comment: [facility] Comment: [id number] Comment: No. of containers..01 ThinPrep Vial Result Comment: Crit eria not met, HPV Genotype not performed. Performed at: [facility] - [facility] [address] [id number] Mailing Machine Assistant: Viktoriya Vargas MD, Phone: [phone] Performed at: =G - [facility] [address] [id number] Mailing Machine Assistant: Viktoriya Vargas MD, Phone: [phone] Performed By: #### L 501.2450, L503.0105, L500.4050, L506.1000, L501.9520, L100.0100 #### [facility] [address] [place], [place], [address] PAPSMR Comment Normal . [facility] Comment on above: Order Comment: [facility] Comment: [id number] Comment: No. of containers..01 ThinPrep Vial Result [...] 501.2450, L503.0105, L500.4050, L506.1000, L501.9520, L100.0100 #### [facility] [address] [place], [address] PERFORM Comment Normal . [facility] Comment on above: Order Comment: Speci men Comment: [id number] Comment: No. of containers..01 ThinPrep Vial Result Comment: Fauzia Henley, Jockey Room Custodian (ASCP) Performed By: #### L 501.2450, L503.0105, L500.4050, L506.1000, L501.9520, L100.0100 #### [facility] [address] [place], [address] Cervical or vaginal specimen microscopic examination by liquid based cytology (reportOrdered By: Priscilla Nieto on 12-12-2024 Cytology report Cyto stain.thin prep Doc (Cvx/Vag) Comment . [facility] Comment on above: Criteria not met, HP V Genotype not performed.Performed at: [facility] Lab[address] [id number] Director: Viktoriya Vargas MD, Phone: [phone] at: =[facility] Lab[address] [id number] Director: Viktoriya Vargas MD, Phone: [phone] Cervical or vagninal specime n microscopic examination by cytology stain (reported asOrdered By: Priscilla Nieto on 12-12-2024 Cytology report Cyto stain Doc (Cvx/Vag) Comment . [facility] Comment on above: The Pap smear is [...] DNA Probe+sig amp Ql (Cvx) Negative Negative [facility] Comment on above: This nucleic acid am plification test detects fourteen high-risk HPV types (16,18,31,33,35,39,45,51,52,56,58,59,66,68)without differentiation. Laboratory - CytologyOrdered By: Priscilla Nieto on 12-12-2024 Jockey Room Custodian Cyto stain Nom (Cvx/Vag) [ID] Comment . [facility] Comment on above: Guillermina Henley Cytol ogist (ASCP) Laboratory - Miscellaneous t estsOrdered By: Priscilla Nieto on 12-12-2024 Service comment (Unsp spec) [Interp] . . [facility] No Panel InformationOrdered By: Priscilla Nieto on 12-12-2024 Pap Smear Specimen Adequacy Comment . [facility] Comment on above: Satisfactory for jarvis luation. Endocervical and/or squamous metaplasticcells (endocervical component) are present. Runner On Office Visit Reporton 12-12-2024 Runner On Office Visit Report [facility] [address] [place] [address] OFFICE VISIT Date of Service: 12/12/24 MR#: [id number] Acct: [id number] Name: WANDA CAAL Rep #: [id number] : 1980 Provider: Dr. Priscilla Rene, Age/Sex: 44/F Location: [facility] Status: Signed Intake Vital Signs 10/13/24 17:15 11/28/24 10:39 12/12/24 09:30 12/12/24 09:31 Height 5 ft 6 in 5 ft 6 in 5 ft 6 in 5 ft 6 in Weight: 189 lb 2 oz BMI 30.5 BP 125/80 H Intake Visit Reasons: Annual (SCREEN ROLLER) Fire Suppression Captain Required: No Is patient in pain?: No Allergies Penicillins (PCN) Allergy (Severe, Verified 12/12/24 09:30) Anaphylaxis Medications ???Medication ???Instructions ???Recorded ???Confirmed ???Type lorazepam 0.5 mg tablet 0.5 mg PO DAILY PRN PRN Anxiety 12/12/24 History cholecalciferol (vitamin D3) 125 125 mcg PO DAILY 09/24/23 12/12/24 History mcg (5,000 unit) capsule phentermine 11.25 mg-topiramate ER 1 cap PO DAILY 09/24/23 12/12/24 History 69 mg capsule,ext.dfimkbn86 hr mphas (Qsymia) hydroxychloroquine 200 mg tablet [...] History current occupational status: employed 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 Normal [facility] 11-17-2024 [facility] Telephone (INTMWS) WANDA CAAL ([id number]) 1980 F Date Time Provider Department 11/17/24 HILTON DOTY During your visit today, we recorded the following information about you: Elianeglenn CatinaOLU 11/17/2024 2:16 PM Signed [employer] PA rec'd and completed for phentermine topiramateER. This was denied per pts insurance. Note from payer: Request Reference Number: [id number]. QSYMIA CAP 11.25-69 is denied due to [...] Pharmacy Benefits Open Encounter WANDA CAAL - [facility] ([facility]IRX) Covered: Retail, Mail Order Unknown: Specialty, Long-Term Care BIN: [id number] : 1980 Group ID: [id number] PCN: [id number] Legal sex: F Group name: Address: [address] [place] [id number] Medication Being Authorized phentermine-topiramat e ER (QSYMIA) 11.25-69 mg 24 Hr Capsule Take 1 capsule by mouth once daily for 90 days. BMI 31.32 Dispense: 90 capsule Refills: 1 Start: 11/17/2024 End: 02/15/2025 Class: Normal Diagnoses: Obesity, Class I, BMI 30-34.9; Inflammatory polyarthropathy (HCC); Dyslipidemia This order has been released to its destination. To be filled at: [place] [address] [address]. - [phone] Allergies As of Date: 11/17/2024 Noted Allergy Reaction PENICILLINS 08/30/2013 16 - Unknown Date Reviewed: 11/16/2024 Reviewed by: Hilton Doty DO - Fully Assessed Reason for Visit: Insurance Authorization [[id number]] Prescriptions as of 11/17/2024 - phentermine-topiramat e [...] Encounter Status:Closed by CATINA AUSTIN on 11/17/24 [facility] CNOVon 11-16-2024 CNOV Office Visit (FAMPWS ) WANDA CAAL ([id number]) 1980 F Date Time Provider Department 11/16/24 7:00 PM HILTON DOTY During your visit today, we [...] SE Currently She had CT chest at [facility] for her dyspnea symptoms- this testing was normal appearing on review She also had ECHOCARDIOGRAM at [facility] for her dyspnea symptoms- this testing was [...] LAD, no (more content not included)... Normal [facility] 11-11-2024 CNPN Telephone (PODIWS) WANDA CAAL ([id number]) 1980 F Date Time Provider Department 11/11/24 HILTON DOTY PODIWS During your visit today, we recorded the following information about you: Ariana Schwarz MA 11/11/2024 10:40 AM Signed Pt completed CT Chest at [facility]. Results have been scanned into [employer] for Provider to review. Please review under imaging tab. FRENCH Reeder Rebekah, APRN.[employer]GETABLE [employer] 11/11/2024 1:[address] looks completely normal, no concerns. Anna Sheikh APRN.Lois Smiley MA 11/11/2024 1:17 PM Signed Pt informed via message Lois Rod MA Allergies As of Date: 11/11/2024 Noted Allergy Reaction PENICILLINS 08/30/2013 16 - Unknown Date Reviewed: 10/26/2024 Reviewed by: Char Valencia LPN - Fully Assessed Reason for Visit: [...] Status:Closed by LOIS ROD on 11/11/24 Normal [facility] Absolute lymphocyte countOrd ered By: Hilton Doty on 11-10-2024 Lymphocytes Auto (Unsp spec) [#/Vol] 1.63 10*3/uL 0.83-4.51 [facility] Absolute neutrophil countOrd ered By: Hilton Doty on 11-10-2024 Neutrophils (Bld) [#/Vol] 3.5 10*3/uL 2.0-7.7 [facility] Anion gap in Serum or Plasma Ordered By: Hilton Doty on 11-10-2024 Anion gap [Moles/Vol] 11 mmol/L 5-15 [facility] Automated lymphocyte count a s percentage of total leukocytesOrdered By: Hilton Doty on 11-10-2024 Lymphocytes/100 WBC Auto (Unsp spec) 29.0 % 19-41 [facility] BUN/creatinine ratioOrdered By: Hilton Doty on 11-10-2024 Urea nitrogen/Creatinine [Mass ratio] 13.2 mg/mg 10-20 [facility] Basophil percentageOrdered B y: Hilton Doty on 11-10-2024 Basophils/100 WBC (Bld) 0.4 % 0-1 [facility] Bilirubin, totalOrdered By: Hilton Doty on 11-10-2024 Bilirubin [Mass/Vol] 0.52 mg/dL 0.00-1.30 [facility] CBC W/Diff, Automatedon 11-01-2024 Absolute Lymph 1.63 X10 3/uL Normal 0.83-4.51 [facility] Comment on above: Performed By: #### L 501.2450, L503.0105, L500.4050, L506.1000, L501.9520, L100.0100 #### [facility] Laboratory [address] [place], [address] Absolute Neut 3.5 X10 3/uL Normal 2.0-7.7 [facility] Comment on above: Performed By: #### L 501.2450, L503.0105, L500.4050, L506.1000, L501.9520, L100.0100 #### [facility] [address] [place], [address] Basophils/100 WBC (Bld) 0.4 % Normal 0-1 [facility] Comment on above: Performed By: #### L 501.2450, L503.0105, L500.4050, L506.1000, L501.9520, L100.0100 #### [facility] [address] [place], [address] Eosinophils/100 WBC (Bld) 1.6 % Normal 0-5 [facility] Comment on above: Performed By: #### L 501.2450, L503.0105, L500.4050, L506.1000, L501.9520, L100.0100 #### [facility] [address] [place], [address] Erythrocyte distribution width (RBC) [Ratio] 14.2 % Normal 11.6-14.6 [facility] Comment on above: Performed By: #### L 501.2450, L503.0105, L500.4050, L506.1000, L501.9520, L100.0100 #### [facility] [address] [place], [address] Hematocrit (Bld) [Volume fraction] 39.9 % Normal 37-47 [facility] Comment on above: Performed By: #### L 501.2450, L503.0105, L500.4050, L506.1000, L501.9520, L100.0100 #### [facility] [address] [place], [address] Hemoglobin (Bld) [Mass/Vol] 13.4 g/dL Normal 12.0-15.0 [facility] Comment on above: Performed By: #### L 501.2450, L503.0105, L500.4050, L506.1000, L501.9520, L100.0100 #### [facility] [address] [place], [address] IG% 0.200 Normal 0.0-0.9 [facility] Comment on above: Result Comment: IG% - Immature Granulocytes (promyelocytes, myelocytes and metamyelocytes) > 1% indicates that a LEFT SHIFT is Present. Performed By: #### L 501.2450, L503.0105, L500.4050, L506.1000, L501.9520, L100.0100 #### [facility] [address] [place], [address] Lymphocytes/100 WBC (Bld) 29.0 % Normal 19-41 [facility] Comment on above: Performed By: #### L 501.2450, L503.0105, L500.4050, L506.1000, L501.9520, L100.0100 #### [facility] [address] [place], [address] MCH (RBC) [Entitic mass] 30.8 pg Normal 27.0-32.0 [facility] Comment on above: Performed By: #### L 501.2450, L503.0105, L500.4050, L506.1000, L501.9520, L100.0100 #### [facility] [address] [place], [address] MCHC (RBC) [Mass/Vol] 33.6 g/dL Normal 32-36 [facility] Comment on above: Performed By: #### L 501.2450, L503.0105, L500.4050, L506.1000, L501.9520, L100.0100 #### [facility] [address] [place], [address] MCV (RBC) [Entitic vol] 91.7 fL Normal 81-99 [facility] Comment on above: Performed By: #### L 501.2450, L503.0105, L500.4050, L506.1000, L501.9520, L100.0100 #### [facility] [address] [place], [address] Monocytes/100 WBC (Bld) 7.6 % Normal 0-10 [facility] Comment on above: Performed By: #### L 501.2450, L503.0105, L500.4050, L506.1000, L501.9520, L100.0100 #### [facility] [address] [place], [address] Neutrophils/100 WBC (Bld) 61.2 % Normal 47-70 [facility] Comment on above: Performed By: #### L 501.2450, L503.0105, L500.4050, L506.1000, L501.9520, L100.0100 #### [facility] [address] [place], [address] Nucleated RBC (Bld) [#/Vol] 0 10*3/uL Normal 0-5 [facility] Comment on above: Performed By: #### L 501.2450, L503.0105, L500.4050, L506.1000, L501.9520, L100.0100 #### [facility] [address] [place], [address] Platelet mean volume (Bld) [Entitic vol] 9.7 fL Normal 6.2-12.0 [facility] Comment on above: Performed By: #### L 501.2450, L503.0105, L500.4050, L506.1000, L501.9520, L100.0100 #### [facility] [address] [place], [address] Platelets (Bld) [#/Vol] 244 10*3/uL Normal 150-450 [facility] Comment on above: Performed By: #### L 501.2450, L503.0105, L500.4050, L506.1000, L501.9520, L100.0100 #### [facility] [address] [place], [address] RBC (Bld) [#/Vol] 4.35 10*6/uL Normal 4.2-5.4 [facility] Comment on above: Performed By: #### L 501.2450, L503.0105, L500.4050, L506.1000, L501.9520, L100.0100 #### [facility] [address] [place], [address] RDW SD 47.7 fl High 35.1-43.9 [facility] Comment on above: Performed By: #### L 501.2450, L503.0105, L500.4050, L506.1000, L501.9520, L100.0100 #### [facility] [address] [place], [address] WBC (Bld) [#/Vol] 5.6 10*3/uL Normal 4.4-11.0 [facility] Comment on above: Performed By: #### L 501.2450, L503.0105, L500.4050, L506.1000, L501.9520, L100.0100 #### [facility] [address] [place], [address] CRPon 11-10-2024 C-REACTIVE PROT < 3.00 Normal 0.0-3.0 [facility] Comment on above: Performed By: #### L 501.2450, L503.0105, L500.4050, L506.1000, L501.9520, L100.0100 #### [facility] [address] [place], [address] CRP [Mass/Vol]Ordered By: Melissa Doty on 11-10-2024 C-Reactive Protein Extended Range < 3.00 mg/L 0.0-3.0 [facility] Calculated total iron bindin g capacityOrdered By: Hilton Doty on 11-10-2024 Total Iron Binding Capacity 262 ug/dL 250-450 [facility] Carbon dioxide, total [Moles /volume] in Central venous bloodOrdered By: Hilton Doty on 11-10-2024 CO2 [Moles/Vol] 23.4 mmol/L 21.0-32.0 [facility] Chest without Contraston Chest without Contrast [facility] Services [address] [place], [place] [address] (287) Chest without Contrast MR#: [id number] Acct: [id number] Name: WANDA CAAL Rep #: [id number] : 1980 F 44 From: Leeanna Howard MD PCP: Dr. Hilton Doty DO Status: REG CLI Study: Chest without Contrast Date of Exam: 11/10/24 Exam# [id number] Ordering Dr: Hilton Doty DO PROCEDURE: CHEST [...] the chest. Status post cholecystectomy. Reading Location: [facility] CC: Dr. Hilton Doty, Swimming Pool Attendant: Signed Normal [facility] Chloride assayOrdered By: Melissa Doty on 11-10-2024 Chloride [Moles/Vol] 105 mmol/L 98-108 [facility] Comprehensive Metabolic Prof ilon 11-10-2024 Albumin [Mass/Vol] 4.1 g/dL Normal 3.5-5.0 [facility] Comment on above: Performed By: #### L 501.2450, L503.0105, L500.4050, L506.1000, L501.9520, L100.0100 #### [facility] [address] [place], [address] Albumin/Globulin [Mass ratio] 1.3 {ratio} Normal 0.9-2.4 [facility] Comment on above: Performed By: #### L 501.2450, L503.0105, L500.4050, L506.1000, L501.9520, L100.0100 #### [facility] [address] [place], [address] ALK PHOS 72 U/L Normal 35-104 [facility] Comment on above: Performed By: #### L 501.2450, L503.0105, L500.4050, L506.1000, L501.9520, L100.0100 #### [facility] [address] [place], [address] ALT [Catalytic activity/Vol] 23 U/L Normal <=34 [facility] Comment on above: Performed By: #### L 501.2450, L503.0105, L500.4050, L506.1000, L501.9520, L100.0100 #### [facility] [address] [place], [address] AST [Catalytic activity/Vol] 23 U/L Normal <=31 [facility] Comment on above: Performed By: #### L 501.2450, L503.0105, L500.4050, L506.1000, L501.9520, L100.0100 #### [facility] [address] [place], [address] Bilirubin [Mass/Vol] 0.52 mg/dL Normal 0.00-1.30 [facility] Comment on above: Performed By: #### L 501.2450, L503.0105, L500.4050, L506.1000, L501.9520, L100.0100 #### [facility] [address] [place], [address] BUN/CRE 13.2 RATIO Normal 10-20 [facility] Comment on above: Performed By: #### L 501.2450, L503.0105, L500.4050, L506.1000, L501.9520, L100.0100 #### [facility] [address] [place], [address] Calcium [Mass/Vol] 9.4 mg/dL Normal 7.6-11.0 [facility] Comment on above: Performed By: #### L 501.2450, L503.0105, L500.4050, L506.1000, L501.9520, L100.0100 #### [facility] [address] [place], [address] Chloride [Moles/Vol] 105 mmol/L Normal 98-108 [facility] Comment on above: Performed By: #### L 501.2450, L503.0105, L500.4050, L506.1000, L501.9520, L100.0100 #### [facility] [address] [place], [address] CO2 [Moles/Vol] 23.4 mmol/L Normal 21.0-32.0 [facility] Comment on above: Performed By: #### L 501.2450, L503.0105, L500.4050, L506.1000, L501.9520, L100.0100 #### [facility] [address] [place], [address] Creatinine [Mass/Vol] 0.92 mg/dL Normal 0.70-1.20 [facility] Comment on above: Performed By: #### L 501.2450, L503.0105, L500.4050, L506.1000, L501.9520, L100.0100 #### [facility] [address] [place], [address] GAP 11 Normal 5-15 [facility] Comment on above: Performed By: #### L 501.2450, L503.0105, L500.4050, L506.1000, L501.9520, L100.0100 #### [facility] [address] [place], [address] GFR/1.73 sq M.predicted among non-blacks MDRD (S/P/Bld) [Vol rate/Area] 79 mL/min/{1.73_m2} Normal >60 [facility] Comment on above: Result Comment: mL/m in/1.73m2 CKD-EPI Creatinine Equation (2020) Performed By: #### L 501.2450, L503.0105, L500.4050, L506.1000, L501.9520, L100.0100 #### [facility] [address] [place], [address] Globulin (S) [Mass/Vol] 3.1 g/dL Normal 2.2-4.2 [facility] Comment on above: Performed By: #### L 501.2450, L503.0105, L500.4050, L506.1000, L501.9520, L100.0100 #### [facility] [address] [place], [address] Glucose [Mass/Vol] 107 mg/dL High 70-99 [facility] Comment on above: Performed By: #### L 501.2450, L503.0105, L500.4050, L506.1000, L501.9520, L100.0100 #### [facility] [address] [place], [address] Potassium [Moles/Vol] 3.9 mmol/L Normal 3.3-5.1 [facility] Comment on above: Performed By: #### L 501.2450, L503.0105, L500.4050, L506.1000, L501.9520, L100.0100 #### [facility] [address] [place], [address] Sodium [Moles/Vol] 139 mmol/L Normal 133-145 [facility] Comment on above: Performed By: #### L 501.2450, L503.0105, L500.4050, L506.1000, L501.9520, L100.0100 #### [facility] [address] [place], [address] T PROT 7.1 g/dL Normal 5.9-8.4 [facility] Comment on above: Performed By: #### L 501.2450, L503.0105, L500.4050, L506.1000, L501.9520, L100.0100 #### [facility] [address] [place], [address] Urea nitrogen [Mass/Vol] 12 mg/dL Normal 4-19 [facility] Comment on above: Performed By: #### L 501.2450, L503.0105, L500.4050, L506.1000, L501.9520, L100.0100 #### [facility] [address] [place], [address] Eosinophil percentageOrdered By: Hilton Doty on 11-10-2024 Eosinophils/100 WBC (Bld) 1.6 % 0-5 [facility] Erythrocyte distribution wid th (RBC) [Ratio]Ordered By: Hilton Doty on 11-10-2024 Erythrocyte distribution width (RBC) [Entitic vol] 47.7 fL High 35.1-43.9 [facility] Erythrocyte distribution wid th ratioOrdered By: Hilton Doty on 11-10-2024 Erythrocyte distribution width (RBC) [Ratio] 14.2 % 11.6-14.6 [facility] Erythrocyte distribution wid th standard deviationOrdered By: Hilton Doty on 11-10-2024 Erythrocyte distribution width (RBC) [Ratio] 47.7 fl High 35.1-43.9 [facility] GFR/1.73 sq M.predicted rosina g non-blacks MDRD (S/P/Bld) [Vol rate/Area]Ordered By: Hilton Doty on 11-10-2024 Estimated GFR (MDRD) Non-Af Amer 79 >60 [facility] Comment on above: mL/min/1.73m2 CKD-EP I Creatinine Equation (2020) Glomerular filtration rate ( GFR) estimation/1.73 sq m using serum, plasma, or whole bOrdered By: Hilton Doty on 11-10-2024 GFR/1.73 sq M.predicted among non-blacks MDRD (S/P/Bld) [Vol rate/Area] 79 mL/min/{1.73_m2} >60 [facility] Comment on above: mL/min/1.73m2 CKD-EP I Creatinine Equation (2020) Hematocrit Auto (Bld) [Volum e fraction]Ordered By: Hilton Doty on 11-10-2024 Hematocrit (Bld) [Volume fraction] 39.9 % 37-47 [facility] Hemoglobin measurementOrdere d By: Hilton Doty on 11-10-2024 Hemoglobin (Bld) [Mass/Vol] 13.4 g/dL 12.0-15.0 [facility] Immature granulocytes/100 WB C Auto (Bld)Ordered By: Hilton Doty on 11-10-2024 Immature granulocytes/100 WBC (Bld) 0.200 % 0.0-0.9 [facility] Comment on above: IG% - Immature Granu locytes (promyelocytes, myelocytes and metamyelocytes) > 1% indicates that a LEFT SHIFT is Present. Iron (Unsp spec) [Mass/Mass] Ordered By: Hilton Doty on 11-10-2024 Iron [Mass/Vol] 93 ug/dL 50-170 [facility] Iron measurement (mass/mass) Ordered By: Hilton Doty on 11-10-2024 Iron (Unsp spec) [Mass/Mass] 93 ug/dL 50-170 [facility] Iron saturation [Mass fracti on]Ordered By: Hilton Doty on 11-10-2024 Iron Saturation 35.5 % 13-59 [facility] Comment on above: Previous reported re sult: 35.0 %Edited by: HENRIETTA on 11/10/24:0902 AMENDED REPORT 11/10/24 0902 IRON SATURATION previously reported as: 35.0 % Iron+Iron Binding Capacityon 11-10-2024 Iron [Mass/Vol] 93 ug/dL Normal 50-170 [facility] Comment on above: Performed By: #### L 501.2450, L503.0105, L500.4050, L506.1000, L501.9520, L100.0100 #### [facility] [address] [place], [address] UIBC 169 ug/dL Low 228-428 [facility] Comment on above: Performed By: #### L 501.2450, L503.0105, L500.4050, L506.1000, L501.9520, L100.0100 #### [facility] [address] [place], [address] Laboratory - Chemistry and C hemistry - challengeOrdered By: Hilton Doty on 11-10-2024 AST [Catalytic activity/Vol] 23 U/L <32 [facility] Lymphocytes Auto (Unsp spec) [#/Vol]Ordered By: Hilton Doty on 11-10-2024 Lymphocytes (Bld) [#/Vol] 1.63 10*3/uL 0.83-4.51 [facility] Lymphocytes/100 WBC Auto (Un sp spec)Ordered By: Hilton Doty on 11-10-2024 Lymphocytes/100 WBC (Bld) 29.0 % 19-41 [facility] MCV (mean corpuscular volume ) determinationOrdered By: Hilton Doty on 11-10-2024 MCV (RBC) [Entitic vol] 91.7 fL 81-99 [facility] Mean corpuscular hemoglobin (MCH) determinationOrdered By: Hilton Doty on 11-10-2024 MCH (RBC) [Entitic mass] 30.8 pg 27.0-32.0 [facility] Mean corpuscular hemoglobin concentration (MCHC) determinationOrdered By: Hilton Doty on 11-10-2024 MCHC (RBC) [Mass/Vol] 33.6 g/dL 32-36 [facility] Mean platelet volume determi nationOrdered By: Hilton Doty on 11-10-2024 Platelet mean volume (Bld) [Entitic vol] 9.7 fL 6.2-12.0 [facility] Monocyte percentageOrdered B y: Hilton Doty on 11-10-2024 Monocytes/100 WBC (Bld) 7.6 % 0-10 [facility] Neutrophil percentageOrdered By: Hilton Doty on 11-10-2024 Neutrophils/100 WBC (Bld) 61.2 % 47-70 [facility] No Panel InformationOrdered By: Hilton Doty on 11-10-2024 Unsaturated Iron Binding Capacity 169 ug/dL Low 228-428 [facility] Nucleated red blood cell per centageOrdered By: Hilton Doty on 11-10-2024 Nucleated RBC/100 WBC (Bld) [Ratio] 0 % 0-5 [facility] Platelet countOrdered By: Melissa Doty on 11-10-2024 Platelets (Bld) [#/Vol] 244 10*3/uL 150-450 [facility] Potassium (Unsp spec) [Mass/ Vol]Ordered By: Hilton Doty on 11-10-2024 Potassium [Moles/Vol] 3.9 mmol/L 3.3-5.1 [facility] Potassium measurement (mass/ volume)Ordered By: Hilton Doty on 11-10-2024 Potassium (Unsp spec) [Mass/Vol] 3.9 mmol/L 3.3-5.1 [facility] RBC Auto (Bld) [#/Vol]Ordere d By: Hilton Doty on 11-10-2024 RBC (Bld) [#/Vol] 4.35 10*6/uL 4.2-5.4 [facility] Serum creatinine measurement (mass/volume)Ordered By: Hilton Doty on 11-10-2024 Creatinine [Mass/Vol] 0.92 mg/dL 0.70-1.20 [facility] Serum globulin measurementOr dered By: Hilton Doty on 11-10-2024 Globulin (S) [Mass/Vol] 3.1 g/dL 2.2-4.2 [facility] Serum glucose measurement (m ass/volume)Ordered By: Hilton Doty on 11-10-2024 Glucose [Mass/Vol] 107 mg/dL High 70-99 [facility] Serum or plasma C reactive p rotein measurement (mass/volume)Ordered By: Hilton Doty on 11-10-2024 CRP [Mass/Vol] mg/L 0.0-3.0 [facility] Serum or plasma alanine nieto otransferase (ALT) measurementOrdered By: Hilton Doty on 11-10-2024 ALT [Catalytic activity/Vol] 23 U/L <35 [facility] Serum or plasma albumin willie urement (mass/volume)Ordered By: Hilton Doty on 11-10-2024 Albumin [Mass/Vol] 4.1 g/dL 3.5-5.0 [facility] Serum or plasma albumin/glob ulin mass ratioOrdered By: Hilton Doty on 11-10-2024 Albumin/Globulin [Mass ratio] 1.3 {ratio} 0.9-2.4 [facility] Serum or plasma alkaline rima sphatase measurementOrdered By: Hilton Doty on 11-10-2024 ALP [Catalytic activity/Vol] 72 U/L 35-104 [facility] Serum or plasma calcium willie urement (mass/volume)Ordered By: Hilton Doty on 11-10-2024 Calcium [Mass/Vol] 9.4 mg/dL 7.6-11.0 [facility] Serum or plasma iron saturat ion measurement (mass fraction)Ordered By: Hilton Doty on 11-10-2024 Iron saturation [Mass fraction] 35.5 % 13-59 [facility] Comment on above: Previous reported re sult: 35.0 %Edited by: HENRIETTA on 11/10/24:0902 AMENDED REPORT 11/10/24 0902 IRON SATURATION previously reported as: 35.0 % Serum or plasma urea nitroge n measurement (mass/volume)Ordered By: Hilton Doty on 11-10-2024 Urea nitrogen [Mass/Vol] 12 mg/dL 4-19 [facility] Sodium levelOrdered By: Jason Doty on 11-10-2024 Sodium [Moles/Vol] 139 mmol/L 133-145 [facility] T4 Free Directon 11-10-2024 T4 FREE DIRECT 1.20 ng/dL Normal 0.76-1.46 [facility] Comment on above: Performed By: #### L 501.2450, L503.0105, L500.4050, L506.1000, L501.9520, L100.0100 #### [facility] Laboratory [address] [place], [address] T4 freeOrdered By: Hilton gomes on 11-10-2024 Free T4 [Mass/Vol] 1.20 ng/dL 0.76-1.46 [facility] TSH DL <= 0.005 mIU/L QnOrde red By: Hilton Doty on 11-10-2024 Thyroid Stimulating Hormone (TSH) 2.360 uIU/mL 0.300-4.200 [facility] TSH Qn 2.360 uIU/mL 0.300-4.200 [facility] Thyroid Stim Hormone (TSH)on 11-10-2024 TSH 2.360 uIU/mL Normal 0.300-4.200 [facility] Comment on above: Performed By: #### L 501.2450, L503.0105, L500.4050, L506.1000, L501.9520, L100.0100 #### [facility] Laboratory [address] [place], [address] Total proteinOrdered By: Clay Doty on 11-10-2024 Protein [Mass/Vol] 7.1 g/dL 5.9-8.4 [facility] Vitamin B12on 11-10-2024 Cobalamin (Vitamin B12) [Mass/Vol] 756 pg/mL Normal 180-914 [facility] Comment on above: Performed By: #### L 501.2450, L503.0105, L500.4050, L506.1000, L501.9520, L100.0100 #### [facility] Laboratory [address] [place], [address] Vitamin B12 ser/plasOrdered By: Hilton Doty on 11-10-2024 Cobalamin (Vitamin B12) [Mass/Vol] 756 pg/mL 180-914 [facility] Vitamin D, 25-hydroxyOrdered By: Hilton Doty on 11-10-2024 Vitamin D 25-Hydroxy 58.9 ng/mL 30-100 [facility] Comment on above: Vitamin D StatusDefi ciency: <20 ng/mL (50nmol/L)Insufficiency: 20-30 ng/mL (50-75 nmol/L)Sufficiency: 30-100 ng/mL (75-250 nmol/L)Toxicity: >100 ng/mL (>250 nmol/L) Vitamin D,25 Hydroxyon 11-10 Vitamin D 25-OH 58.9 ng/mL Normal 30-100 [facility] Comment on above: Result Comment: Kristen min D Status Deficiency: <20 ng/mL (50nmol/L) Insufficiency: 20-30 ng/mL (50-75 nmol/L) Sufficiency: 30-100 ng/mL (75-250 nmol/L) Toxicity: >100 ng/mL (>250 nmol/L) Performed By: #### L 501.2450, L503.0105, L500.4050, L506.1000, L501.9520, L100.0100 #### [facility] Laboratory [address] [place], [address] White blood cell (WBC) count Ordered By: Hilton Doty on 11-10-2024 WBC (Bld) [#/Vol] 5.6 10*3/uL 4.4-11.0 [facility] MR/BMSAlf 11-02-2024 MR/BMS.S [facility] Vascular Surgery [address] [place] [address] OFFICE VISIT Date of Service: 11/02/24 MR#: [id number] Acct: [id number] Name: WANDA CAAL Rep #: [id number] : 1980 Provider: JAYE Montero Age/Sex: 44/F Location: 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 [facility] (INTM[facility]) WANDA CAAL ([id number]) 1980 F Date Time Provider Department 10/28/24 HILTON DOTY INTJUANA During your visit today, we recorded the [...] Wanda Caal PATIENT INFO: PROVIDER: Lisa García APRN.CNP 10/28/2024 2:31 PM Signed Please call patient [...] to the pharmacy chart message. Anna Sheikh APRN.CNP 11/04/2024 8:07 AM Signed Noted, thank you Anna Sheikh APRN.CNP Allergies As of Date: 10/28/2024 Noted Allergy Reaction PENICILLINS 08/30/2013 16 - Unknown Date Reviewed: 10/26/2024 Reviewed by: Char Valencia LPN - Fully Assessed Reason for Visit: [...] Encounter Status:Closed by ANNA SHEIKH on 11/04/24 [facility] CNOVon 10-26-2024 [facility] CAALWANDA Austin ([id number]) 1980 F Date Time Provider Department 10/26/24 6:20 PM [facility] During your visit today, we recorded the following information about you: Temperature Pulse Respiration Blood pressure 97.4 degrees 76/minute 16/minute 120/80 Weight Last Period 86.2 kg 10/01/24 Hilton Doty DO 10/26/2024 10:00 PM Signed CC: Wandalela Caal is a 44 year old female [...] disease PAST SURGICAL HISTORY Procedure Laterality Date [facility] (MISSED AB 1ST TRIMESTER) 2001 [...] of interstitial (more content not included)... Normal [facility] Echo Completeon 10-26-2024 Echo [facility] Cardiovascular [place] [address] [address] [place] [address] Echo Complete 10/26/24 1250 MR#: [id number] Acct: [id number] Name: WANDA CAAL Rep #: [id number] : 1980 44 From: Stone Quiñonez MD Attending Dr: BUSTER Carrasco Status: REG CLI Ordering Dr: Rajinder Hinton Date: 10/26/24 Location: [facility] Sex: F C [...] 10/26/24 1433 Date Stone Quiñonez MD CC: LEVELER-C Rajinder Hinton; Dr. Hilton Doty DO Date Dictated: 10/26/24 1250 Date Transcribed: 10/26/24 1433 Swimming Pool Attendant: Signed Normal [facility] Echocardiogram study reportO rdered By: Stone Quiñonez on 10-26-2024 Study report [facility] Cardiovascular Services [address] [place] [address] Echo Complete 10/26/24 1250 MR#: [id number] Acct: [id number] Name: WANDA CAAL Rep #:[id number] : 1980 44 From: Stone Quintero Attending Dr: Rajinder Hinton, LEVELER-C Status: REG CLI Ordering Dr: Rajinder Hinton Date : 10/26/24 Location: [facility] Sex: F C Admitted: Reason For Study [...] Hinton Referring Physician: Hilton Doty Performed By: Luis Angel, Isaura, RDCS, RVT 10/26/24 1433 Date _ Stone Quiñonez MD CC: LEVELER-C Rajinder Hinton; Dr. Hilton Doty, DO ~ Date Dictated: 10/26/24 1250 Date Transcribed: 10/26/241432 Swimming Pool Attendant: Signed [facility] Work Phone: CNPNon 10-17-2024 [facility] Telephone ([facility]) WANDA CAAL ([id number]) 1980 F Date Time Provider Department 10/17/24 [facility] During your visit today, we recorded the following information about you: Gina Sparks LPN 10/17/2024 2:32 PM Signed Patient calling asking if her lab results are back she had done at [facility] on 10/14? See in lab section scanned in. Patient was going to try to go back to work tomorrow but still feels short of breath with not much activity, and fatigued. Please advise Rajinder Hinton APRN.VEGETABLE VENDOR 10/17/2024 2:38 PM Signed Please let patient know her BNP is normal. Patient should follow up with Dr. Doty next week as scheduled. Dasia Hopper MA 10/17/2024 3:27 PM Signed Pt notified and verbalized understanding. Pt asking if you have any further recommendations to help with the SOB in the meantime? FRENCH Nelson Danielle, APRN.VEGETABLE VENDOR 10/17/2024 3:39 PM Signed Has patient scheduled echo? If so when is it? In the meantime I would recommend watching her salt and water intake, How much lasix is she taking currently? If she is only taking 20mg daily I would have increase to 40mg for the next 3 days to see if there is an improvement in her symptoms. Lissa Cedillo RN 10/17/2024 4:00 PM Signed Pt called and [...] for edema. Please review and advise, ELSIE Iqbal Danielle, APRN.VEGETABLE VENDOR 10/17/2024 4:25 PM Signed I want her [...] Encounter Pres (more content not included)... Normal [facility] CNOVon 10-14-2024 CNOV Office Visit (FAMPWS ) WANDA CAAL ([id number]) 1980 F Date Time Provider Department 10/14/24 1:40 PM RAJINDER HINTON During your visit today, we recorded the following information about you: Pulse Blood pressure Weight 81/minute 102/71 85 kg Rajinder Hinton APRN.VEGETABLE VENDOR 10/14/2024 1:40 PM Signed Chief Complaint Patient presents with: ER F/U HPI Wanda Helton Afua is a 44 year old female who [...] 0.9 % (FLUSH) INJECTION SYRINGE Rajinder Hinton APRN.VEGETABLE VENDOR Allergies As of Date: 10/14/2024 Noted Allergy Reaction PENICILLINS 08/30/2013 16 - Unknown Date Reviewed: 10/14/2024 Reviewed by: Dasia Hopper MA - Fully Assessed Reason for Visit: ER F/U [41] Primary Visit Diagnosis:Bilateral leg edema [R60.0] Other Visit Diagnoses:SOB (shortness of breath) [R06.02] Obesity, Class I, BMI 30-34.9 [E66.811] Order(s):ECHO [715456] Order #: [id number]: 1 FUTURE NT PRO BNP [SQNTBNP] Order #: [id number] FUTURE Prescriptions as of 0 (more content not included)... Normal [facility] Davin 10-14-2024 CNPN Telephone (FAMPWS) WANDA CAAL ([id number]) 1980 F Date Time Provider Department 10/14/24 RAJINDER HINTON During your visit today, we recorded the following information about you: Frank Obando RN 10/14/2024 3:22 PM Signed Patient calls to report that she is having trouble scheduling ECHO with [facility] until out into November because it doesn't say stat. Patient asking if order can be changed to STAT and sent to [facility] scheduling. ELSIE Hsieh Danielle, MEDICAL ATTENDANT.VEGETABLE VENDOR 10/14/2024 3:41 PM Signed New order placed. Please fax to [facility]. Dasia Hopper MA 10/17/2024 10:17 AM Signed New stat order faxed to [facility] Dasia Hopper MA Allergies As of Date: 10/14/2024 Noted Allergy Reaction PENICILLINS 08/30/2013 16 - Unknown Date Reviewed: 10/14/2024 Reviewed by: Dasia Hopper MA - Fully Assessed Reason for Visit: Patient Question [1477] Primary Visit Diagnosis:Bilateral leg edema [R60.0] Other Visit Diagnosis:SOB (shortness of breath) [R06.02] Order(s):ECHO [300465] Order #: [id number]: 1 FUTURE Prescriptions as of 10/17/2024 - [...] Status:Closed by RAJINDER HINTON on 10/17/24 [facility] L503.7505on 10-14-2024 proBNP < 36 Normal <=450 [facility] Comment on above: Result Comment: Hear t Failure Unlikely: < 300 pg/mL Heart Failure Likely < 50 Years: > 450 pg/mL 50-75 Years: > 900 pg/mL >75 Years: > 1800 pg/mL Performed By: #### L 501.2450, L503.0105, L500.4050, L506.1000, L501.9520, L100.0100 #### [facility] Laboratory [address] [place], [address] No Panel InformationOrdered By: Laura Rai on 10-14-2024 [id number] Natriuretic Peptide II < 36 pg/mL <450 [facility] Comment on above: Heart Failure Unlike ly: < 300 pg/mLHeart Failure Likely< 50 Years: > 450 pg/mL50-75 Years: > 900 pg/mL>75 Years: > 1800 pg/mL Venous Duplex US, Unilateral on 10-14-2024 Venous Duplex US, Unilateral [facility] Cardiovascular Services [address] [place] [address] Venous Duplex US, Unilateral 10/14/24 1053 MR#: [id number] Acct: [id number] Name: WANDA CAAL Rep #: [id number] : 1980 44 From: Derek Barone MD [...] appears patent and compressible segmentally. Ordering Physician: Larua Rai Referring Physician: Hilton Doty Performed By: Rochelle Taylor RVT 10/24/24 1220 Date Derek Barone MD CC: JAYE Montero; Dr. 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 Hilton Doty DO; Dr. Charlie Lombardo DO Signed Normal [facility] Absolute lymphocyte countOrd ered By: Charlie Lombardo on 10-13-2024 Lymphocytes Auto (Unsp spec) [#/Vol] 2.32 10*3/uL 0.83-4.51 [facility] Absolute neutrophil countOrd ered By: Charlie Lombardo on 10-13-2024 Neutrophils (Bld) [#/Vol] 4.5 10*3/uL 2.0-7.7 [facility] Anion gap in Serum or Plasma Ordered By: Charlie Lombardo on 10-13-2024 Anion gap [Moles/Vol] 14 mmol/L - [facility] Automated lymphocyte count a s percentage of total leukocytesOrdered By: Charlie Lombardo on 10-13-2024 Lymphocytes/100 WBC Auto (Unsp spec) 30.6 % [facility] BUN/creatinine ratioOrdered By: Charlie Lombardo on 10-13-2024 Urea nitrogen/Creatinine [Mass ratio] 14.3 mg/mg - [facility] Basic Metabolic Profile (BMP )on 10-13-2024 BUN/CRE 14.3 RATIO Normal 05-22 [facility] Comment on above: Performed By: #### L 501.2450, L503.0105, L500.4050, L506.1000, L501.9520, L100.0100 #### [facility] Laboratory [facility] [place] [address] [place], [address] Calcium [Mass/Vol] 9.8 mg/dL Normal 7.6-11.0 [facility] Comment on above: Performed By: #### L 501.2450, L503.0105, L500.4050, L506.1000, L501.9520, L100.0100 #### [facility] Laboratory [address] [place], [address] Chloride [Moles/Vol] 99 mmol/L Normal 98-108 [facility] Comment on above: Performed By: #### L 501.2450, L503.0105, L500.4050, L506.1000, L501.9520, L100.0100 #### [facility] Laboratory [address] [place], [address] CO2 [Moles/Vol] 23.6 mmol/L Normal 21.0-32.0 [facility] Comment on above: Performed By: #### L 501.2450, L503.0105, L500.4050, L506.1000, L501.9520, L100.0100 #### [facility] Laboratory [address] [place], [address] Creatinine [Mass/Vol] 0.89 mg/dL Normal 0.70-1.20 [facility] Comment on above: Performed By: #### L 501.2450, L503.0105, L500.4050, L506.1000, L501.9520, L100.0100 #### [facility] [address] [place], [address] ECRCL 88.51 ml/min Normal 50-250 [facility] Comment on above: Performed By: #### L 501.2450, L503.0105, L500.4050, L506.1000, L501.9520, L100.0100 #### [facility] [address] [place], [address] GAP 14 Normal 5-15 [facility] Comment on above: Performed By: #### L 501.2450, L503.0105, L500.4050, L506.1000, L501.9520, L100.0100 #### [facility] [address] [place], [address] GFR/1.73 sq M.predicted among non-blacks MDRD (S/P/Bld) [Vol rate/Area] 82 mL/min/{1.73_m2} Normal >60 [facility] Comment on above: Result Comment: mL/m in/1.73m2 CKD-EPI Creatinine Equation (2020) Performed By: #### L 501.2450, L503.0105, L500.4050, L506.1000, L501.9520, L100.0100 #### [facility] [address] [place], [address] Glucose [Mass/Vol] 92 mg/dL Normal 70-99 [facility] Comment on above: Performed By: #### L 501.2450, L503.0105, L500.4050, L506.1000, L501.9520, L100.0100 #### [facility] [address] [place], [address] Potassium [Moles/Vol] 3.6 mmol/L Normal 3.3-5.1 [facility] Comment on above: Result Comment: Hemo lysis present, Results??could be affected. ?? Performed By: #### L 501.2450, L503.0105, L500.4050, L506.1000, L501.9520, L100.0100 #### [facility] [address] [place], [address] Sodium [Moles/Vol] 136 mmol/L Normal 133-145 [facility] Comment on above: Performed By: #### L 501.2450, L503.0105, L500.4050, L506.1000, L501.9520, L100.0100 #### [facility] [address] [place], [address] Urea nitrogen [Mass/Vol] 13 mg/dL Normal 4-19 [facility] Comment on above: Performed By: #### L 501.2450, L503.0105, L500.4050, L506.1000, L501.9520, L100.0100 #### [facility] [address] [place], [address] Basophil percentageOrdered B y: Charlie Lombardo on 10-13-2024 Basophils/100 WBC (Bld) 0.4 % 0-1 [facility] Blood manual differential co mment interpretation (narrative result)Ordered By: Charlie Lombardo on 10-13-2024 Manual differential comment Anselmo (Bld) [Interp] SCANNED [facility] CBC W/Diff, Automatedon 10-01 SMEAR COMMENT SCANNED Normal [facility] Comment on above: Performed By: #### L 501.2450, L503.0105, L500.4050, L506.1000, L501.9520, L100.0100 #### [facility] [address] [place], [address] Carbon dioxide, total [Moles /volume] in Central venous bloodOrdered By: Charlie Lombardo on 10-13-2024 CO2 [Moles/Vol] 23.6 mmol/L 21.0-32.0 [facility] Chest PA and Lateralon 10-13 Chest PA and Lateral [facility] Imaging Services [address] [place] [address] Chest PA and Lateral MR#: [id number] Acct: [id number] Name: CHRISTINA CAALAmber Helton Rep #: [id number] : 1980 F 44 From: Lazaro Noriega i, MD PCP: Dr. Hilton Doty, DO Status: REG ER Study: Chest PA and Lateral Date of Exam: 10/13/24 Exam# [id number] Ordering Dr: Charlie Lombardo DO PROCEDURE: CHEST [...] IMPRESSION: No acute pulmonary disease. Reading Location: [facility] CC: Dr. Hilton Doty DO; Dr. Charlie Lombardo DO Swimming Pool Attendant: Signed Normal [facility] Chloride assayOrdered By: Quoc Lombardo on 10-13-2024 Chloride [Moles/Vol] 99 mmol/L 98-108 [facility] D-Dimer Quantitative (DVT/PE )on 10-13-2024 D-DIMER QUANT < 0.27 Low 0.27-0.49 [facility] Comment on above: Result Comment: NORM AL D-Dimer level (<0.50) indicates no DVT or PE. NORMAL D-Dimer level (<0.50) indicates no DVT or PE. Performed By: #### L 501.2450, L503.0105, L500.4050, L506.1000, L501.9520, L100.0100 #### [facility] [address] [place], [place], [address] D-dimer measurement for deep venous thrombosisOrdered By: Charlie Lombardo on 10-13-2024 D-Dimer Quantitative (PE/DVT) < 0.27 FEU/ug/m Low 0.27-0.49 [facility] Comment on above: NORMAL D-Dimer level (<0.50) indicates no DVT or PE. NORMAL D-Dimer level (<0.50) indicates no DVT or PE. 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 Normal [facility] Eosinophil percentageOrdered By: Charlie Lombardo on 10-13-2024 Eosinophils/100 WBC (Bld) 1.3 % 0-5 [facility] Erythrocyte distribution wid th ratioOrdered By: Charlie Lombardo on 10-13-2024 Erythrocyte distribution width (RBC) [Ratio] 13.2 % 11.6-14.6 [facility] Erythrocyte distribution wid th standard deviationOrdered By: Charlie Lombardo on 10-13-2024 Erythrocyte distribution width (RBC) [Entitic vol] 43.6 fL 35.1-43.9 [facility] Erythrocyte distribution width (RBC) [Ratio] 43.6 fl 35.1-43.9 [facility] Estimation of creatinine eduar aranceOrdered By: Charlie Lombardo on 10-13-2024 Estimated Creatinine Clearance Calc 88.51 ml/min 50-250 [facility] GFR/1.73 sq M.predicted rosina g non-blacks MDRD (S/P/Bld) [Vol rate/Area]Ordered By: Charlie Lombardo on 10-13-2024 Estimated GFR (MDRD) Non-Af Amer 82 >60 [facility] Comment on above: mL/min/1.73m2 CKD-EP I Creatinine Equation (2020) Glomerular filtration rate ( GFR) estimation/1.73 sq m using serum, plasma, or whole bOrdered By: Charlie Lombardo on 10-13-2024 GFR/1.73 sq M.predicted among non-blacks MDRD (S/P/Bld) [Vol rate/Area] 82 mL/min/{1.73_m2} >60 [facility] Comment on above: mL/min/1.73m2 CKD-EP I Creatinine Equation (2020) Hematocrit Auto (Bld) [Volum e fraction]Ordered By: Charlie Lombardo on 10-13-2024 Hematocrit (Bld) [Volume fraction] 43.5 % 37-47 [facility] Hemoglobin measurementOrdere d By: Charlie Lombardo on 10-13-2024 Hemoglobin (Bld) [Mass/Vol] 14.5 g/dL 12.0-15.0 [facility] Immature granulocytes/100 WB C Auto (Bld)Ordered By: Charlie Lombardo on 10-13-2024 Immature granulocytes/100 WBC (Bld) 0.300 % 0.0-0.9 [facility] Comment on above: IG% - Immature Granu locytes (promyelocytes, myelocytes and metamyelocytes) > 1% indicates that a LEFT SHIFT is Present. L499.0042on 10-13-2024 Trop T High Sen 6 ng/L Normal <=14 [facility] Comment on above: Performed By: #### L 501.2450, L503.0105, L500.4050, L506.1000, L501.9520, L100.0100 #### [facility] Laboratory [address] [place], [address] L499.0043on 10-13-2024 Trop T High Sen Normal <=14 [facility] Comment on above: Result Comment: Canc elled via OM: Order cancelled - Patient discharged Performed By: #### L 501.2450, L503.0105, L500.4050, L506.1000, L501.9520, L100.0100 #### [facility] [address] [place], [address] L501.4021on 10-13-2024 Trop T High Sen < 6 Normal <=14 [facility] Comment on above: Result Comment: Hemo lysis present, Results??could be affected. ?? Performed By: #### L 501.4021 #### [facility] [facility] [address] [place], [address] Lymphocytes Auto (Unsp spec) [#/Vol]Ordered By: Charlie Lombardo on 10-13-2024 Lymphocytes (Bld) [#/Vol] 2.32 10*3/uL 0.83-4.51 [facility] Lymphocytes/100 WBC Auto (Un sp spec)Ordered By: Charlie Lombardo on 10-13-2024 Lymphocytes/100 WBC (Bld) 30.6 % 19-41 [facility] MCV (mean corpuscular volume ) determinationOrdered By: Charlie Lombardo on 10-13-2024 MCV (RBC) [Entitic vol] 89.9 fL 81-99 [facility] Manual differential comment Anselmo (Bld) [Interp]Ordered By: Charlie Lombardo on 10-13-2024 Differential Comment SCANNED [facility] Mean corpuscular hemoglobin (MCH) determinationOrdered By: Charlie Lombardo on 10-13-2024 MCH (RBC) [Entitic mass] 30.0 pg 27.0-32.0 [facility] Mean corpuscular hemoglobin concentration (MCHC) determinationOrdered By: Charlie Lombardo on 10-13-2024 MCHC (RBC) [Mass/Vol] 33.3 g/dL 32-36 [facility] Mean platelet volume determi nationOrdered By: Charlie Lombardo on 10-13-2024 Platelet mean volume (Bld) [Entitic vol] 10.2 fL 6.2-12.0 [facility] Monocyte percentageOrdered B y: Charlie Lombardo on 10-13-2024 Monocytes/100 WBC (Bld) 8.4 % 0-10 [facility] Neutrophil percentageOrdered By: Charlie Lombardo on 10-13-2024 Neutrophils/100 WBC (Bld) 59.0 % 47-70 [facility] No Panel InformationOrdered By: Charlie Lombardo on 10-13-2024 Troponin T High Sensitivity < 6 ng/L <14 [facility] Comment on above: Hemolysis present, R esults could be affected. Nucleated red blood cell per centageOrdered By: Charlie Lombardo on 10-13-2024 Nucleated RBC/100 WBC (Bld) [Ratio] 0 % 0-5 [facility] Platelet countOrdered By: Quoc Lombardo on 10-13-2024 Platelets (Bld) [#/Vol] 243 10*3/uL 150-450 [facility] Potassium (Unsp spec) [Mass/ Vol]Ordered By: Charlie Lombardo on 10-13-2024 Potassium [Moles/Vol] 3.6 mmol/L 3.3-5.1 [facility] Comment on above: Hemolysis present, R esults could be affected. Potassium measurement (mass/ volume)Ordered By: Charlie Lombardo on 10-13-2024 Potassium (Unsp spec) [Mass/Vol] 3.6 mmol/L 3.3-5.1 [facility] Comment on above: Hemolysis present, R esults could be affected. ,Urineon 10-13-2024 Beta HCG ( test) Ql (U) Negative Normal [facility] Comment on above: Result Comment: Very dilute urine specimens, as indicated by a low specific gravity, may not contain ambulatory services representative levels of hCG. If is still suspected, a first morning urine specimen should be collected 48 hours later and tested. Performed By: #### L 501.2450, L503.0105, L500.4050, L506.1000, L501.9520, L100.0100 #### [facility] [address] [place], [address] RBC Auto (Bld) [#/Vol]Ordere d By: Charlie Lombardo on 10-13-2024 RBC (Bld) [#/Vol] 4.84 10*6/uL 4.2-5.4 [facility] Serum creatinine measurement (mass/volume)Ordered By: Charlie Lombardo on 10-13-2024 Creatinine [Mass/Vol] 0.89 mg/dL 0.70-1.20 [facility] Serum glucose measurement (m ass/volume)Ordered By: Charlie Lombardo on 10-13-2024 Glucose [Mass/Vol] 92 mg/dL 70-99 [facility] Serum or plasma calcium willie urement (mass/volume)Ordered By: Charlie Lombardo on 10-13-2024 Calcium [Mass/Vol] 9.8 mg/dL 7.6-11.0 [facility] Serum or plasma urea nitroge n measurement (mass/volume)Ordered By: Charlie Lombardo on 10-13-2024 Urea nitrogen [Mass/Vol] 13 mg/dL 4-19 [facility] Sodium levelOrdered By: Charlie Lombardo on 10-13-2024 Sodium [Moles/Vol] 136 mmol/L 133-145 [facility] Troponin T.cardiac High sens itivity method [Mass/Vol]Ordered By: Charlie Lombardo on 10-13-2024 Troponin T High Sensitivity 2 Hour 6 ng/L <14 [facility] Troponin T.cardiac [Mass/vol ume] in Serum or Plasma by High sensitivity methodOrdered By: Charlie Lombardo on 10-13-2024 Troponin T.cardiac High sensitivity method [Mass/Vol] 6 ng/L <14 [facility] Urine testOrdered By: Charlie Lombardo on 10-13-2024 HCG ( test) Ql (U) Negative [facility] Comment on above: Very dilute urine sp ecimens, as indicated by a low specificgravity, may not contain ambulatory services representative levels of hCG. If is still suspected, a first morning urinespecimen should be collected 48 hours later and tested. White blood cell (WBC) count Ordered By: Charlie Lombardo on 10-13-2024 WBC (Bld) [#/Vol] 7.6 10*3/uL 4.4-11.0 [facility] CNPNon 10-07-2024 CNPN Telephone [facility] WANDA CAAL ([id number]) 1980 F Date Time Provider Department 10/07/24 HILTON DOTY [facility] During your visit today, we recorded the following information about you: Ngoc Ervin, ELSIE 10/07/2024 10:40 AM Signed Patient asking if Dr. Doty could review her [facility] lab results that were completed 09/22/24 (in scanned docs), as well as her [facility] Note from 09/08/24 (in scanned docs as well). Pt states there is no solano to review these records, but wanted Dr. Doty's advise on her lab results, as she sees there are some numbers that are off and she was not feeling well during the time she had her labs drawn. Pt states she will be following up with [facility] in November. ELSIE Clemens Jordan L, DO 10/19/2024 7:58 PM Signed Please inform patient that labs were stable other than CRP was elevated mildly. Recommend addressing this with Personal Computer Network Engineer DO Riky Brady M Robin, RN 10/20/2024 9:22 AM Signed Phoned pt and given provider's message below. Pt states she hasn't seen a geosciences professor since last year. Reports pcp agreed to [...] to refill her lorazepam. Pended. Lisa Doll APRN.FEI 10/20/2024 10:15 AM Signed All of these [...] activity was identified. 10/20/2024 by Lisa Doll APRN.Huma Rodgers LPN 10/20/2024 10:26 AM Signed Pt states understanding. Now asking what is a good amount of of water for her to be drinking? Statesw at last appointment was told to watch fluid intake but with her meds they make her super thirsty. So asking what is an ok amount to drink? Lisa Doll APRN.VEGETABLE VENDOR 10/20/2024 10:55 AM Signed No need for fluid restriction after getting BNP results as normal and normal kidney function. I would suggest around 60oz of water per day. Thank you, Lisa Doll APRN.VEGETABLE VENDOR Allergies As of Date: 10/07/2024 Noted Allergy Reaction PENICILLINS 08/30/2013 16 - Unknown Date Reviewed: 08/01/2024 Reviewed by: Char Valencia LPN - Fully Assessed Reason for Visit: [...] (morbid obesity*10/14/19 (more content not included)... Normal [facility] Breast imaging reportOrdered By: Jimmy Cam on 09-26-2024 Study report [facility] Imaging Services [address] [place] [address] SCRN MAMM (CAD)W/KYMBERLY BILAT MR#: [id number] Acct: [id number] Name: WANDA CAAL Rep #: [id number] : 1980 F 44 From: Beni Cam MD PCP: Dr. Hilton Doty, Status: RE G CLI Study:SCRN MAMM (CAD)W/KYMBERLY BILAT Date of Exa m: 09/26/24 Exam# [id number] Ordering Dr: Nilda Loya LEVELER LEVELER-C PROCEDURE: SCRN MAMM (CAD)W/KYMBERLY BILAT REASON FOR [...] of the results by letter. Reading Location: [id number] CC: BUSTER Loya; Dr. Hilton Doty DO ~ Swimming Pool Attendant: Signed [facility] SCRN MAMM (CAD)W/KYMBERLY BILATo n 09-26-2024 SCRN MAMM (CAD)W/KYMBERLY BILAT [facility] Imaging Services [address] [place], [place] [address] SCRN MAMM (CAD)W/KYMBERLY BILAT MR#: [id number] Acct: [id number] Name: WANDA CAAL Rep #: [id number] : 1980 F 44 From: Jimmy hood MD PCP: Dr. Hilton Doty DO Status: REG CLI Study: SCRN MAMM (CAD)W/KYMBERLY BILAT Date of Exam: 09/04 11/25 Exam# [id number] Ordering Dr: Nilda Loya NP, NP -Jessica PROCEDURE: SCRN MAMM (CAD)W/KYMBERLY BILAT REASON FOR [...] of the results by letter. Reading Location: [facility] CC: BUSTER Loya; Dr. Hilton Doty DO Swimming Pool Attendant: Signed Normal [facility] Absolute lymphocyte countOrd ered By: Hilton Doty on 09-22-2024 Lymphocytes Auto (Unsp spec) [#/Vol] 1.27 10*3/uL 0.83-4.51 [facility] Absolute neutrophil countOrd ered By: Hilton Vásquezon on 09-22-2024 Neutrophils (Bld) [#/Vol] 3.9 10*3/uL 2.0-7.7 [facility] Albumin to globulin ratioOrd ered By: Hilton Doty on 09-22-2024 Albumin/Globulin [Mass ratio] 0.9 {ratio} 0.9-2.4 [facility] Automated lymphocyte count a s percentage of total leukocytesOrdered By: Hilton Doty on 09-22-2024 Lymphocytes/100 WBC Auto (Unsp spec) 21.3 % 19-41 [facility] Basophil percentageOrdered B y: Hilton Doty on 09-22-2024 Basophils/100 WBC (Bld) 0.5 % 0-1 [facility] Bilirubin, totalOrdered By: Hilton Doty on 09-22-2024 Bilirubin [Mass/Vol] 0.50 mg/dL 0.20-1.00 [facility] Comment on above: For patients on eltr ombopag therapy, use of Dimension [place] TBIL is not recommended. Blood urea nitrogen (BUN)/cr eatinine ratioOrdered By: Hilton Doty on 09-22-2024 Urea nitrogen/Creatinine [Mass ratio] 15.1 mg/mg 10-20 [facility] C-reactive protein measureme nt by high sensitivity methodOrdered By: Hilton Doty on 09-22-2024 C-Reactive Protein Extended Range 5.87 mg/L High 0.0-3.0 [facility] Comment on above: C-Reactive Protein ( CRP) provides useful information for thediagnosis, therapy and monitoring of inflammatory processesand associated diseases. For the evaluation of Relative Riskfor Cardiovascular Disease, a High Sensitivity CRP (HSCRP)should be ordered. C-reactive protein measurement by high sensitivity method 5.87 mg/L High 0.0-3.0 [facility] Comment on above: C-Reactive Protein ( CRP) provides useful information for thediagnosis, therapy and monitoring of inflammatory processesand associated diseases. For the evaluation of Relative Riskfor Cardiovascular Disease, a High Sensitivity CRP (HSCRP)should be ordered. CBC W/Diff, Automatedon 02-2 0-202 Absolute Lymph 1.27 X10 3/uL Normal 0.83-4.51 [facility] Comment on above: Performed By: #### L 501.2450, L503.0105, L500.4050, L506.1000, L501.9520, L100.0100 #### [facility] [address] [place], [address] Absolute Neut 3.9 X10 3/uL Normal 2.0-7.7 [facility] Comment on above: Performed By: #### L 501.2450, L503.0105, L500.4050, L506.1000, L501.9520, L100.0100 #### [facility] [address] [place], [address] Basophils/100 WBC (Bld) 0.5 % Normal 0-1 [facility] Comment on above: Performed By: #### L 501.2450, L503.0105, L500.4050, L506.1000, L501.9520, L100.0100 #### [facility] [address] [place], [address] Eosinophils/100 WBC (Bld) 1.2 % Normal 0-5 [facility] Comment on above: Performed By: #### L 501.2450, L503.0105, L500.4050, L506.1000, L501.9520, L100.0100 #### [facility] [address] [place], [address] Erythrocyte distribution width (RBC) [Ratio] 13.0 % Normal 11.6-14.6 [facility] Comment on above: Performed By: #### L 501.2450, L503.0105, L500.4050, L506.1000, L501.9520, L100.0100 #### [facility] [address] [place], [address] Hematocrit (Bld) [Volume fraction] 42.1 % Normal 37-47 [facility] Comment on above: Performed By: #### L 501.2450, L503.0105, L500.4050, L506.1000, L501.9520, L100.0100 #### [facility] [address] [place], [address] Hemoglobin (Bld) [Mass/Vol] 14.2 g/dL Normal 12.0-15.0 [facility] Comment on above: Performed By: #### L 501.2450, L503.0105, L500.4050, L506.1000, L501.9520, L100.0100 #### [facility] [address] [place], [address] IG% 0.300 Normal 0.0-0.9 [facility] Comment on above: Result Comment: IG% - Immature Granulocytes (promyelocytes, myelocytes and metamyelocytes) > 1% indicates that a LEFT SHIFT is Present. Performed By: #### L 501.2450, L503.0105, L500.4050, L506.1000, L501.9520, L100.0100 #### [facility] [address] [place], [address] Lymphocytes/100 WBC (Bld) 21.3 % Normal 19-41 [facility] Comment on above: Performed By: #### L 501.2450, L503.0105, L500.4050, L506.1000, L501.9520, L100.0100 #### [facility] [address] [place], [address] MCH (RBC) [Entitic mass] 30.1 pg Normal 27.0-32.0 [facility] Comment on above: Performed By: #### L 501.2450, L503.0105, L500.4050, L506.1000, L501.9520, L100.0100 #### [facility] [address] [place], [address] MCHC (RBC) [Mass/Vol] 33.7 g/dL Normal 32-36 [facility] Comment on above: Performed By: #### L 501.2450, L503.0105, L500.4050, L506.1000, L501.9520, L100.0100 #### [facility] [address] [place], [address] MCV (RBC) [Entitic vol] 89.2 fL Normal 81-99 [facility] Comment on above: Performed By: #### L 501.2450, L503.0105, L500.4050, L506.1000, L501.9520, L100.0100 #### [facility] [address] [place], [address] Monocytes/100 WBC (Bld) 12.2 % High 0-10 [facility] Comment on above: Performed By: #### L 501.2450, L503.0105, L500.4050, L506.1000, L501.9520, L100.0100 #### [facility] [address] [place], [address] Neutrophils/100 WBC (Bld) 64.5 % Normal 47-70 [facility] Comment on above: Performed By: #### L 501.2450, L503.0105, L500.4050, L506.1000, L501.9520, L100.0100 #### [facility] [address] [place], [address] Nucleated RBC (Bld) [#/Vol] 0 10*3/uL Normal 0-5 [facility] Comment on above: Performed By: #### L 501.2450, L503.0105, L500.4050, L506.1000, L501.9520, L100.0100 #### [facility] [address] [place], [address] Platelet mean volume (Bld) [Entitic vol] 9.5 fL Normal 6.2-12.0 [facility] Comment on above: Performed By: #### L 501.2450, L503.0105, L500.4050, L506.1000, L501.9520, L100.0100 #### [facility] [address] [place], [address] Platelets (Bld) [#/Vol] 207 10*3/uL Normal 150-450 [facility] Comment on above: Performed By: #### L 501.2450, L503.0105, L500.4050, L506.1000, L501.9520, L100.0100 #### [facility] [address] [place], [address] RBC (Bld) [#/Vol] 4.72 10*6/uL Normal 4.2-5.4 [facility] Comment on above: Performed By: #### L 501.2450, L503.0105, L500.4050, L506.1000, L501.9520, L100.0100 #### [facility] [address] [place], [address] RDW SD 42.7 fl Normal 35.1-43.9 [facility] Comment on above: Performed By: #### L 501.2450, L503.0105, L500.4050, L506.1000, L501.9520, L100.0100 #### [facility] [address] [place], [address] WBC (Bld) [#/Vol] 6.0 10*3/uL Normal 4.4-11.0 [facility] Comment on above: Performed By: #### L 501.2450, L503.0105, L500.4050, L506.1000, L501.9520, L100.0100 #### [facility] [place], [address] [facility] 09-22-2024 [facility] Telephone [facility] WANDA CAAL ([id number]) 1980 F Date Time Provider Department 09/22/24 HILTON DOTY [facility] During your visit today, we recorded the following information about you: Frank Obando RN 09/22/2024 12:36 PM Signed Patient calls to request lab orders be faxed to [facility]. Faxed to [phone] per request. Frank Obando RN Allergies As of Date: 09/22/2024 Noted Allergy Reaction PENICILLINS 08/30/2013 16 - Unknown Date Reviewed: 08/01/2024 Reviewed by: Char Valencia LPN - Fully Assessed Reason for Visit: Orders [681] Prescriptions as of 09/22/2024 - buPROPion (WELLBUTRIN) [...] Perimenopausal symptoms [N95.1] 08/02/2024 Encounter Status:Closed by OBANDO, FRANK on 09/22/24 Normal [facility] CRPon 09-22-2024 C-REACTIVE PROT 5.87 mg/L High 0.0-3.0 [facility] Comment on above: Result Comment: C-Re active Protein (CRP) provides useful information for the diagnosis, therapy and monitoring of inflammatory processes and associated diseases. For the evaluation of Relative Risk for Cardiovascular Disease, a High Sensitivity CRP (HSCRP) should be ordered. Performed By: #### L 501.2450, L503.0105, L500.4050, L506.1000, L501.9520, L100.0100 #### [facility] [address] [place], [address] Carbon dioxide measurementOr dered By: Hilton Doty on 09-22-2024 CO2 [Moles/Vol] 29.0 mmol/L 21.0-32.0 [facility] Chloride measurementOrdered By: Hilton Doty on 09-22-2024 Chloride [Moles/Vol] 101 mmol/L 98-107 [facility] Comprehensive Metabolic Prof ilon 09-22-2024 Albumin [Mass/Vol] 3.8 g/dL Normal 3.2-5.0 [facility] Comment on above: Performed By: #### L 501.2450, L503.0105, L500.4050, L506.1000, L501.9520, L100.0100 #### [facility] [address] [place], [address] Albumin/Globulin [Mass ratio] 0.9 {ratio} Normal 0.9-2.4 [facility] Comment on above: Performed By: #### L 501.2450, L503.0105, L500.4050, L506.1000, L501.9520, L100.0100 #### [facility] [address] [place], [address] ALK P 83 U/L Normal 45-117 [facility] Comment on above: Performed By: #### L 501.2450, L503.0105, L500.4050, L506.1000, L501.9520, L100.0100 #### [facility] [address] [place], [address] ALT [Catalytic activity/Vol] 22 U/L Normal 13-56 [facility] Comment on above: Performed By: #### L 501.2450, L503.0105, L500.4050, L506.1000, L501.9520, L100.0100 #### [facility] [address] [place], [address] AST [Catalytic activity/Vol] 15 U/L Normal 15-37 [facility] Comment on above: Performed By: #### L 501.2450, L503.0105, L500.4050, L506.1000, L501.9520, L100.0100 #### [facility] [address] [place], [address] Bilirubin [Mass/Vol] 0.50 mg/dL Normal 0.20-1.00 [facility] Comment on above: Result Comment: For patients on eltrombopag therapy, use of Dimension [place] TBIL is not recommended. Performed By: #### L 501.2450, L503.0105, L500.4050, L506.1000, L501.9520, L100.0100 #### [facility] [address] [place], [address] BUN/CRE 15.1 RATIO Normal 10-20 [facility] Comment on above: Performed By: #### L 501.2450, L503.0105, L500.4050, L506.1000, L501.9520, L100.0100 #### [facility] [address] [place], [address] CA,Total 9.4 mg/dL Normal 8.5-10.1 [facility] Comment on above: Performed By: #### L 501.2450, L503.0105, L500.4050, L506.1000, L501.9520, L100.0100 #### [facility] [address] [place], [address] Chloride [Moles/Vol] 101 mmol/L Normal 98-107 [facility] Comment on above: Performed By: #### L 501.2450, L503.0105, L500.4050, L506.1000, L501.9520, L100.0100 #### [facility] [address] [place], [address] CO2 [Moles/Vol] 29.0 mmol/L Normal 21.0-32.0 [facility] Comment on above: Performed By: #### L 501.2450, L503.0105, L500.4050, L506.1000, L501.9520, L100.0100 #### [facility] [address] [place], [address] Creatinine [Mass/Vol] 0.80 mg/dL Normal 0.55-1.02 [facility] Comment on above: Result Comment: The validity of the calculated GFR GFRAA in patients over 70 years has not been determined. Clinical correlation is essential. Performed By: #### L 501.2450, L503.0105, L500.4050, L506.1000, L501.9520, L100.0100 #### [facility] [address] [place], [address] EST GFR - AA 101 mL/min Normal >60 [facility] Comment on above: Result Comment: Afri can Ethiopian GFR Calc Performed By: #### L 501.2450, L503.0105, L500.4050, L506.1000, L501.9520, L100.0100 #### [facility] [address] [place], [address] GAP 6 Normal 5-15 [facility] Comment on above: Performed By: #### L 501.2450, L503.0105, L500.4050, L506.1000, L501.9520, L100.0100 #### [facility] [address] [place], [address] GFR/1.73 sq M.predicted among non-blacks MDRD (S/P/Bld) [Vol rate/Area] 83 mL/min/{1.73_m2} Normal >60 [facility] Comment on above: Result Comment: Non- GFR Calc Performed By: #### L 501.2450, L503.0105, L500.4050, L506.1000, L501.9520, L100.0100 #### [facility] [address] [place], [address] Globulin (S) [Mass/Vol] 4.1 g/dL Normal 2.2-4.2 [facility] Comment on above: Performed By: #### L 501.2450, L503.0105, L500.4050, L506.1000, L501.9520, L100.0100 #### [facility] [address] [place], [address] Glucose [Mass/Vol] 101 mg/dL Normal 74-106 [facility] Comment on above: Result Comment: Fast ing Glucose result from 100 to 125 mg/dL suggests IMPAIRED HOMEOSTASIS per A.D.A. criteria. Performed By: #### L 501.2450, L503.0105, L500.4050, L506.1000, L501.9520, L100.0100 #### [facility] [address] [place], [address] Potassium [Moles/Vol] 3.8 mmol/L Normal 3.5-5.1 [facility] Comment on above: Performed By: #### L 501.2450, L503.0105, L500.4050, L506.1000, L501.9520, L100.0100 #### [facility] [address] [place], [address] Sodium [Moles/Vol] 136 mmol/L Normal 136-145 [facility] Comment on above: Performed By: #### L 501.2450, L503.0105, L500.4050, L506.1000, L501.9520, L100.0100 #### [facility] [address] [place], [address] T PROT 7.9 g/dL Normal 6.4-8.2 [facility] Comment on above: Performed By: #### L 501.2450, L503.0105, L500.4050, L506.1000, L501.9520, L100.0100 #### [facility] [address] [place], [address] Urea nitrogen [Mass/Vol] 12 mg/dL Normal 7-18 [facility] Comment on above: Performed By: #### L 501.2450, L503.0105, L500.4050, L506.1000, L501.9520, L100.0100 #### [facility] [address] [place], [address] Eosinophil percentageOrdered By: Hilton Doty on 09-22-2024 Eosinophils/100 WBC (Bld) 1.2 % 0-5 [facility] Erythrocyte distribution wid th ratioOrdered By: Hilton Doty on 09-22-2024 Erythrocyte distribution width (RBC) [Ratio] 13.0 % 11.6-14.6 [facility] Erythrocyte distribution wid th standard deviationOrdered By: Hilton Doty on 09-22-2024 Erythrocyte distribution width (RBC) [Entitic vol] 42.7 fL 35.1-43.9 [facility] Erythrocyte distribution width (RBC) [Ratio] 42.7 fl 35.1-43.9 [facility] Estimated glomerular filtrat ion rate (GFR) AmericanOrdered By: Hilton Doty on 09-22-2024 Estimated GFR (MDRD) Amer 101 mL/min >60 [facility] Comment on above: GFR Calc Glomerular filtration rate ( GFR) estimationOrdered By: Hilton Doty on 09-22-2024 Estimated GFR (MDRD) Non-Af Amer 83 mL/min >60 [facility] Comment on above: Non- GFR Calc GFR/1.73 sq M.predicted among non-blacks MDRD (S/P/Bld) [Vol rate/Area] 83 mL/min/{1.73_m2} >60 [facility] Comment on above: Non- GFR Calc Glucose measurementOrdered B y: Hilton Doty on 09-22-2024 Glucose [Mass/Vol] 101 mg/dL 74-106 [facility] Comment on above: Fasting Glucose resu lt from 100 to 125 mg/dL suggests IMPAIRED HOMEOSTASIS per A.D.A. criteria. Hematocrit Auto (Bld) [Volum e fraction]Ordered By: Hilton Doty on 09-22-2024 Hematocrit (Bld) [Volume fraction] 42.1 % 37-47 [facility] Hemoglobin measurementOrdere d By: Hilton Doty on 09-22-2024 Hemoglobin (Bld) [Mass/Vol] 14.2 g/dL 12.0-15.0 [facility] Immature granulocytes/100 WB C Auto (Bld)Ordered By: Hilton Doty on 09-22-2024 Immature granulocytes/100 WBC (Bld) 0.300 % 0.0-0.9 [facility] Comment on above: IG% - Immature Granu locytes (promyelocytes, myelocytes and metamyelocytes) > 1% indicates that a LEFT SHIFT is Present. Laboratory - Chemistry and C hemistry - challengeOrdered By: Hilton Doty on 09-22-2024 AST [Catalytic activity/Vol] 15 U/L 15-37 [facility] Lymphocytes Auto (Unsp spec) [#/Vol]Ordered By: Hilton Doty on 09-22-2024 Lymphocytes (Bld) [#/Vol] 1.27 10*3/uL 0.83-4.51 [facility] Lymphocytes/100 WBC Auto (Un sp spec)Ordered By: Hilton Doty on 09-22-2024 Lymphocytes/100 WBC (Bld) 21.3 % 19-41 [facility] MCV (mean corpuscular volume ) determinationOrdered By: Hilton Doty on 09-22-2024 MCV (RBC) [Entitic vol] 89.2 fL 81-99 [facility] Mean corpuscular hemoglobin (MCH) determinationOrdered By: Hilton Doty on 09-22-2024 MCH (RBC) [Entitic mass] 30.1 pg 27.0-32.0 [facility] Mean corpuscular hemoglobin concentration (MCHC) determinationOrdered By: Hilton Doty on 09-22-2024 MCHC (RBC) [Mass/Vol] 33.7 g/dL 32-36 [facility] Mean platelet volume determi nationOrdered By: Hilton Doty on 09-22-2024 Platelet mean volume (Bld) [Entitic vol] 9.5 fL 6.2-12.0 [facility] Monocyte percentageOrdered B y: Hilton Doty on 09-22-2024 Monocytes/100 WBC (Bld) 12.2 % High 0-10 [facility] Neutrophil percentageOrdered By: Hilton Doty on 09-22-2024 Neutrophils/100 WBC (Bld) 64.5 % 47-70 [facility] Nucleated red blood cell per centageOrdered By: Hilton Doty on 09-22-2024 Nucleated RBC/100 WBC (Bld) [Ratio] 0 % 0-5 [facility] Platelet countOrdered By: Melissa Doty on 09-22-2024 Platelets (Bld) [#/Vol] 207 10*3/uL 150-450 [facility] Potassium measurementOrdered By: Hilton Doty on 09-22-2024 Potassium [Moles/Vol] 3.8 mmol/L 3.5-5.1 [facility] RBC Auto (Bld) [#/Vol]Ordere d By: Hilton Doty on 09-22-2024 RBC (Bld) [#/Vol] 4.72 10*6/uL 4.2-5.4 [facility] Serum anion gap measurementO rdered By: Hilton Doty on 09-22-2024 Anion gap [Moles/Vol] 6 mmol/L 5-15 [facility] Serum globulin measurementOr dered By: Hilton Doty on 09-22-2024 Globulin (S) [Mass/Vol] 4.1 g/dL 2.2-4.2 [facility] Serum or plasma alanine nieto otransferase (ALT) measurementOrdered By: Hilton Doty on 09-22-2024 ALT [Catalytic activity/Vol] 22 U/L 13-56 [facility] Serum or plasma albumin willie urement (mass/volume)Ordered By: Hilton Doty on 09-22-2024 Albumin [Mass/Vol] 3.8 g/dL 3.2-5.0 [facility] Serum or plasma alkaline rima sphatase measurementOrdered By: Hilton Doty on 09-22-2024 ALP [Catalytic activity/Vol] 83 U/L 45-117 [facility] Serum or plasma calcium willie urement (mass/volume)Ordered By: Hilton Doty on 09-22-2024 Calcium [Mass/Vol] 9.4 mg/dL 8.5-10.1 [facility] Serum or plasma creatinine m easurement (mass/volume)Ordered By: Hilton Doty on 09-22-2024 Creatinine [Mass/Vol] 0.80 mg/dL 0.55-1.02 [facility] Comment on above: The validity of the calculated GFR & GFRAA in patients over 70 years has not been determined. Clinical correlation is essential. Serum or plasma thyroid stim ulating hormone (TSH) measurement (units/volume)Ordered By: Hilton Doty on 09-22-2024 TSH Qn 1.810 uIU/mL 0.358-3.740 [facility] Serum or plasma urea nitroge n measurement (mass/volume)Ordered By: Hilton Doty on 09-22-2024 Urea nitrogen [Mass/Vol] 12 mg/dL 7-18 [facility] Sodium levelOrdered By: Jason Doty on 09-22-2024 Sodium [Moles/Vol] 136 mmol/L 136-145 [facility] TSH QnOrdered By: Hilton de souza on 09-22-2024 Thyroid Stimulating Hormone (TSH) 1.810 uIU/mL 0.358-3.740 [facility] Thyroid Stim Hormone (TSH)on 09-22-2024 TSH 1.810 uIU/mL Normal 0.358-3.740 [facility] Comment on above: Performed By: #### L 501.2450, L503.0105, L500.4050, L506.1000, L501.9520, L100.0100 #### [facility] [address] [place], [address] Total proteinOrdered By: Clay Doty on 09-22-2024 Protein [Mass/Vol] 7.9 g/dL 6.4-8.2 [facility] White blood cell (WBC) count Ordered By: Hilton oDty on 09-22-2024 WBC (Bld) [#/Vol] 6.0 10*3/uL 4.4-11.0 [facility] MR/BMS.BVSon 09-08-2024 MR/BMS.BVS [facility] Vascular Surgery [address] [place] [address] OFFICE VISIT Date of Service: 09/08/24 MR#: [id number] Acct: [id number] Name: WANDA CAAL Rep #: [id number] : 1980 Provider: JAYE Montero Age/Sex: 44/F Location: [facility] Status: Signed Intake Vital Signs 05/26/24 12:40 [...] PRN Pain Score 0 11/25/19 09/08/24 Rx 4-1010 #20 tabs chlorthalidone 25 mg tablet 25 [...] PO DAILY 09/24/23 09/08/24 History 69 mg capsule,ext.[id number] hr mphas (Qsymia) hydroxychloroquine 200 mg tablet [...] you fallen in the past year?: Yes [facility] Medical History Wears dentures Wears glasses Anxiety Rheumatoid arthritis Arthritis Kidney stones Former smoker History of edema History of ureteral stone Surgical History Status post hysteroscopic ablation of endometrium ( 09/29/23) Hx of varicose vein stripping Hx of cystoscopy Hx of dilation and curettage Hx of tooth extraction History of laparoscopic cholecystectomy S/P tubal ligation Social History current occupational status: employed 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 Normal [facility] Davin 08-08-2024 FEIN Telephone (FAMPWS) CAALWANDA Xiao ([id number]) 1980 F Date Time Provider Department 08/08/24 HILTON DOTY During your visit today, we recorded the following information about you: Gina Sparks LPN 08/08/2024 11:06 AM Signed Patient calling asking to have Vascular referral faxed to Dr Derek Barone [facility] at [phone]. Printed office visit note, consult, face sheet, insurance card copy,and faxed as requested. So patient can get appt set up. Allergies As of Date: 08/08/2024 Noted Allergy Reaction PENICILLINS 08/30/2013 16 - Unknown Date Reviewed: 08/01/2024 Reviewed by: Char Valencia LPN - Fully Assessed Reason for Visit: fax [facility] referral to [facility] [Other] Prescriptions as of 08/08/2024 - buPROPion [...] Encounter Status:Closed by GINA SPARKS on 08/08/24 [facility] CNOVon 08-01-2024 CNOV Office Visit (FAMPWS ) WANDA CAAL ([id number]) 1980 F Date Time Provider Department 08/01/24 10:00 AM HILTON DOTY FAMPWS During your visit today, we recorded the following information about you: Temperature Pulse Respiration Blood pressure 97.6 degrees 64/minute 16/minute 130/70 Weight 89.4 kg Hilton Doty, DO 08/02/2024 7:20 AM Signed CC: Wanda Caal [...] of these veins surgically by specialist at [employer] where she works Inflammatory polyarthropathy, symptoms have been stable. Use of plaquenil as prescribed. Getting yearly eye examination Edema, use of chlorthalidone medication and potassium supplement Mood, admits to recently being stressed but feels she is in a better job position than previous. She is working with Psychiatrist office Dr. Oliveros at [employer]. She feels that her perimenopausal symptoms are bothering her. She is going to further discuss with SCREEN ROLLER as well. PAST MEDICAL HISTORY Diagnosis Date [...] surgically, she wants to see surgeon at [employer] where she works - CONSULT TO VASCULAR SURGERY 2. Hypokalemia - ICD9: 276.8, ICD10: E87.6 Recheck labs as ordered Continue potassium supplement - COMPREHENSIVE METABOLIC PANEL - COMPLETE BLOOD COUNT AND DIFFERENTIAL - THYROID STIMULATING HORMONE 3. LIVIA (generalized anxiety disorder) - ICD9: 300.02, ICD10: F41.1 Increase dose of wellbutrin D/w SCREEN ROLLER regarding perimenopause and how this is also affecting her mood and management of her mood. - BUPROPION HCL 75 MG TABLET 4. Situational depression - ICD9: 309.0, ICD10: F43.21 Increase dose of wellbutrin D/w SCREEN ROLLER regarding perimenopause and how this is also affecting her mood and management of her mood. - BUPROPION HCL 75 MG TABLET 5. Obesity, Class I, BMI 30-34.9 - ICD9: 278.00, ICD10: E (more content not included)... Normal [facility] Office Visit Reporton 2023 Office Visit Report [facility] [address] [place] [address] OFFICE VISIT Date of Service: 05/26/24 MR#: [id number] Acct: [id number] Patient: WANDA CAAL Rep #: [id number] : 1980 Provider: JAYE Reese Age/Sex: 44/F Location: [facility] Status: Signed Employer Purchased Covid Test Note: Patient here today for Covid Testing, requested by their Employer. Assessment and Plan Assessment and Plan Orders: Orders POC Cepheid Covid, FluAB, RSV 05/26/24 05/27/24 1320 Date Randy Lyonsignthien Signature: Date (if applicable) CC: Normal [facility] Office Visit Reporton 2023 Office Visit Report [facility] [address] [place] [address] OFFICE VISIT Date of Service: 05/26/24 MR#: [id number] Acct: [id number] Patient: WANDA CAAL Rep #: [id number] : 1980 Provider: JAYE Reese Age/Sex: 44/F Location: [facility] Status: Signed Employer Purchased Covid Test Note: Patient here today for Covid Testing, requested by their Employer. Assessment and Plan Assessment and Plan Orders: Orders POC Cepheid Covid, FluAB, RSV Today 05/26/24 1245 Date Randy CEE Cosigner Signature: Date (if applicable) CC: Normal [facility] Urgent Care Visit Reporton 1 Urgent Care Visit Report [facility] [address], [address] [place] [address] OFFICE VISIT Date of Service: 05/26/24 MR#: [id number] Acct: [id number] Name: WANDA CAAL Rep #: [id number] : 1980 Provider: JAYE Reese Age/Sex: 44/F Location: [facility] Status: Signed Intake Vital Signs 04/04/24 10:52 [...] Chief Complaint: fatigue, KING, chest congestion chills Fire Suppression Captain Required: No Accompanied by: Self Is patient [...] PO DAILY 09/24/23 05/26/24 History 69 mg capsule,ext.wgsjdef15 hr mphas (Qsymia) hydroxychloroquine 200 mg tablet [...] History current occupational status: employed 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 Normal [facility] 05-12-2024 [facility] Telephone (FAMPWS) AFUAWANDA ([id number]) 1980 F Date Time Provider Department 05/12/24 [facility] DOTY [facility] During your visit today, we recorded the following information about you: Lois Rod MA 05/12/2024 7:19 AM Signed Please see pt message-- Luci Doty at last visit you said you [...] your night thank you ! Anna Sheikh APRN.[facility] 05/19/2024 9:54 AM Signed At this point she has not opened any Saturdays. Anna Sheikh APRN.[facility] Lois Rod MA 05/19/2024 10:01 AM Signed Pt informed via [employer] message Lois Rod MA Allergies As of Date: 05/12/2024 Noted Allergy Reaction PENICILLINS 08/30/2013 16 - Unknown Date Reviewed: 04/25/2024 Reviewed by: Char Valencia LPN - Fully Assessed Reason for Visit: Patient Question [1757] Prescriptions as of 05/19/2024 - potassium chloride [...] Status:Closed by LOIS ROD on 05/19/[address] [facility] Potassiumon 04-30-2024 Potassium [Moles/Vol] 3.4 mmol/L Low 3.5-5.1 [facility] Comment on above: Performed By: #### L 501.2450, L503.0105, L500.4050, L506.1000, L501.9520, L100.0100 #### [facility] [address] [place], [address] [facility] 04-27-2024 [facility] Telephone ([facility]) WANDA CAAL ([id number]) 1980 F Date Time Provider Department 04/27/24 HILTON DOTY [facility] During your visit today, we recorded the following information about you: Lois Rod MA 04/27/2024 8:57 AM Signed Lab results attached. Lois Rod MA View External Labs - Miscellaneous Lab [ID [id number]] View External Labs - Miscellaneous Lab [ID [id number]] View External Labs - Miscellaneous Lab [ID [id number]] Hilton Doty DO 04/27/2024 6:31 PM Signed Please inform patient [...] orders to be faxed to her at [phone]. Lab orders faxed as requested. Simran Méndez RN Allergies As of Date: 04/27/2024 Noted Allergy Reaction PENICILLINS 08/30/2013 16 - Unknown Date Reviewed: 04/25/2024 Reviewed by: Char Valencia LPN - Fully Assessed Reason for Visit: Results [95] Primary Visit Diagnosis:Hypokalemia [E87.6] Order(s):POTASSIUM [SQK1] Order #: [id number] FUTURE Prescriptions as of 04/28/2024 - potassium [...] Inflammatory arthritis [M19.90] 04/25/2024 Encounter Status:Closed by HOLIDAYLOIS on 04/27/24 Normal [facility] CBC W/Diff, Automatedon 04-04 Absolute Lymph 2.27 X10 3/uL Normal 0.83-4.51 [facility] Comment on above: Performed By: #### L 501.2450, L503.0105, L500.4050, L506.1000, L501.9520, L100.0100 #### [facility] [address] [place], [address] Absolute Neut 3.3 X10 3/uL Normal 2.0-7.7 [facility] Comment on above: Result Comment: This specimen has been REJECTED due to Laboratory criteria: Clotted. GHAZALA has been notified of need of recollection. 04/26/24705 Nohelia Rosenbaum Performed By: #### L 501.2450, L503.0105, L500.4050, L506.1000, L501.9520, L100.0100 #### [facility] [address] [place], [address] Basophils/100 WBC (Bld) 0.3 % Normal 0-1 [facility] Comment on above: Performed By: #### L 501.2450, L503.0105, L500.4050, L506.1000, L501.9520, L100.0100 #### [facility] [address] [place], [address] Eosinophils/100 WBC (Bld) 1.0 % Normal 0-5 [facility] Comment on above: Performed By: #### L 501.2450, L503.0105, L500.4050, L506.1000, L501.9520, L100.0100 #### [facility] [address] [place], [address] Erythrocyte distribution width (RBC) [Ratio] 13.2 % Normal 11.6-14.6 [facility] Comment on above: Result Comment: This specimen has been REJECTED due to Laboratory criteria: Clotted. GHAZALA has been notified of need of recollection. 04/26/24705 Nohelia Rosenbaum Performed By: #### L 501.2450, L503.0105, L500.4050, L506.1000, L501.9520, L100.0100 #### [facility] [address] [place], [address] Hematocrit (Bld) [Volume fraction] 42.2 % Normal 37-47 [facility] Comment on above: Result Comment: This specimen has been REJECTED due to Laboratory criteria: Clotted. GHAZALA has been notified of need of recollection. 04/26/24705 Nohelia Rosenbaum Performed By: #### L 501.2450, L503.0105, L500.4050, L506.1000, L501.9520, L100.0100 #### [facility] [address] [place], [address] Hemoglobin (Bld) [Mass/Vol] 14.1 g/dL Normal 12.0-15.0 [facility] Comment on above: Result Comment: This specimen has been REJECTED due to Laboratory criteria: Clotted. GHAZALA has been notified of need of recollection. 04/26/24705 Nohelia Rosenbaum Performed By: #### L 501.2450, L503.0105, L500.4050, L506.1000, L501.9520, L100.0100 #### [facility] [address] [place], [address] IG% 0.200 Normal 0.0-0.9 [facility] Comment on above: Result Comment: IG% - Immature Granulocytes (promyelocytes, myelocytes and metamyelocytes) > 1% indicates that a LEFT SHIFT is Present. Performed By: #### L 501.2450, L503.0105, L500.4050, L506.1000, L501.9520, L100.0100 #### [facility] [address] [place], [address] Lymphocytes/100 WBC (Bld) 37.3 % Normal 19-41 [facility] Comment on above: Performed By: #### L 501.2450, L503.0105, L500.4050, L506.1000, L501.9520, L100.0100 #### [facility] [address] [place], [address] MCH (RBC) [Entitic mass] 29.8 pg Normal 27.0-32.0 [facility] Comment on above: Result Comment: This specimen has been REJECTED due to Laboratory criteria: Clotted. GHAZALA has been notified of need of recollection. 04/26/24705 Nohelia Rosenbaum Performed By: #### L 501.2450, L503.0105, L500.4050, L506.1000, L501.9520, L100.0100 #### [facility] [address] [place], [address] MCHC (RBC) [Mass/Vol] 33.4 g/dL Normal 32-36 [facility] Comment on above: Result Comment: This specimen has been REJECTED due to Laboratory criteria: Clotted. GHAZALA has been notified of need of recollection. 04/26/24705 Nohelia Rosenbaum Performed By: #### L 501.2450, L503.0105, L500.4050, L506.1000, L501.9520, L100.0100 #### [facility] [address] [place], [address] MCV (RBC) [Entitic vol] 89.2 fL Normal 81-99 [facility] Comment on above: Result Comment: This specimen has been REJECTED due to Laboratory criteria: Clotted. GHAZALA has been notified of need of recollection. 04/26/24705 Nohelia Rosenbaum Performed By: #### L 501.2450, L503.0105, L500.4050, L506.1000, L501.9520, L100.0100 #### [facility] [address] [place], [address] Monocytes/100 WBC (Bld) 6.6 % Normal 0-10 [facility] Comment on above: Performed By: #### L 501.2450, L503.0105, L500.4050, L506.1000, L501.9520, L100.0100 #### [facility] [address] [place], [address] Neutrophils/100 WBC (Bld) 54.6 % Normal 47-70 [facility] Comment on above: Result Comment: This specimen has been REJECTED due to Laboratory criteria: Clotted. GHAZALA has been notified of need of recollection. 04/26/24705 Nohelia Rosenbaum Performed By: #### L 501.2450, L503.0105, L500.4050, L506.1000, L501.9520, L100.0100 #### [facility] [address] [place], [address] Nucleated RBC (Bld) [#/Vol] 0 10*3/uL Normal 0-5 [facility] Comment on above: Performed By: #### L 501.2450, L503.0105, L500.4050, L506.1000, L501.9520, L100.0100 #### [facility] [address] [place], [address] Platelet mean volume (Bld) [Entitic vol] 9.9 fL Normal 6.2-12.0 [facility] Comment on above: Performed By: #### L 501.2450, L503.0105, L500.4050, L506.1000, L501.9520, L100.0100 #### [facility] [address] [place], [address] Platelets (Bld) [#/Vol] 274 10*3/uL Normal 150-450 [facility] Comment on above: Result Comment: This specimen has been REJECTED due to Laboratory criteria: Clotted. GHAZALA has been notified of need of recollection. 04/26/24705 Nohelia Rosenbaum Performed By: #### L 501.2450, L503.0105, L500.4050, L506.1000, L501.9520, L100.0100 #### [facility] [address] [place], [address] RBC (Bld) [#/Vol] 4.73 10*6/uL Normal 4.2-5.4 [facility] Comment on above: Result Comment: This specimen has been REJECTED due to Laboratory criteria: Clotted. GHAZALA has been notified of need of recollection. 04/26/24705 Nohelia Rosenbaum Performed By: #### L 501.2450, L503.0105, L500.4050, L506.1000, L501.9520, L100.0100 #### [facility] [address] [place], [address] RDW SD 43.2 fl Normal 35.1-43.9 [facility] Comment on above: Result Comment: This specimen has been REJECTED due to Laboratory criteria: Clotted. GHAZALA has been notified of need of recollection. 04/26/24705 Nohelia Rosenbaum Performed By: #### L 501.2450, L503.0105, L500.4050, L506.1000, L501.9520, L100.0100 #### [facility] [address] [place], [address] WBC (Bld) [#/Vol] 6.1 10*3/uL Normal 4.4-11.0 [facility] Comment on above: Result Comment: This specimen has been REJECTED due to Laboratory criteria: Clotted. GHAZALA has been notified of need of recollection. 04/26/24705 Nohelia Rosenbaum Performed By: #### L 501.2450, L503.0105, L500.4050, L506.1000, L501.9520, L100.0100 #### [facility] [address] [place], [address] Comprehensive Metabolic Prof ilon 04-26-2024 Albumin [Mass/Vol] 3.8 g/dL Normal 3.2-5.0 [facility] Comment on above: Performed By: #### L 501.2450, L503.0105, L500.4050, L506.1000, L501.9520, L100.0100 #### [facility] [address] [place], [address] Albumin/Globulin [Mass ratio] 1.0 {ratio} Normal 0.9-2.4 [facility] Comment on above: Performed By: #### L 501.2450, L503.0105, L500.4050, L506.1000, L501.9520, L100.0100 #### [facility] [address] [place], [address] ALK P 93 U/L Normal 45-117 [facility] Comment on above: Performed By: #### L 501.2450, L503.0105, L500.4050, L506.1000, L501.9520, L100.0100 #### [facility] [address] [place], [address] ALT [Catalytic activity/Vol] 16 U/L Normal 13-56 [facility] Comment on above: Performed By: #### L 501.2450, L503.0105, L500.4050, L506.1000, L501.9520, L100.0100 #### [facility] [address] [place], [address] AST [Catalytic activity/Vol] 16 U/L Normal 15-37 [facility] Comment on above: Performed By: #### L 501.2450, L503.0105, L500.4050, L506.1000, L501.9520, L100.0100 #### [facility] [address] [place], [address] Bilirubin [Mass/Vol] 0.50 mg/dL Normal 0.20-1.00 [facility] Comment on above: Result Comment: For patients on eltrombopag therapy, use of Dimension [place] TBIL is not recommended. Performed By: #### L 501.2450, L503.0105, L500.4050, L506.1000, L501.9520, L100.0100 #### [facility] [address] [place], [address] BUN/CRE 13.7 RATIO Normal 10-20 [facility] Comment on above: Performed By: #### L 501.2450, L503.0105, L500.4050, L506.1000, L501.9520, L100.0100 #### [facility] [address] [place], [address] CA,Total 9.6 mg/dL Normal 8.5-10.1 [facility] Comment on above: Performed By: #### L 501.2450, L503.0105, L500.4050, L506.1000, L501.9520, L100.0100 #### [facility] [address] [place], [address] Chloride [Moles/Vol] 101 mmol/L Normal 98-107 [facility] Comment on above: Performed By: #### L 501.2450, L503.0105, L500.4050, L506.1000, L501.9520, L100.0100 #### [facility] [address] [place], [address] CO2 [Moles/Vol] 32.0 mmol/L Normal 21.0-32.0 [facility] Comment on above: Performed By: #### L 501.2450, L503.0105, L500.4050, L506.1000, L501.9520, L100.0100 #### [facility] [address] [place], [address] Creatinine [Mass/Vol] 1.02 mg/dL Normal 0.55-1.02 [facility] Comment on above: Result Comment: The validity of the calculated GFR GFRAA in patients over 70 years has not been determined. Clinical correlation is essential. Performed By: #### L 501.2450, L503.0105, L500.4050, L506.1000, L501.9520, L100.0100 #### [facility] [address] [place], [address] EST GFR - AA 76 mL/min Normal >60 [facility] Comment on above: Result Comment: Afri can Ethiopian GFR Calc Performed By: #### L 501.2450, L503.0105, L500.4050, L506.1000, L501.9520, L100.0100 #### [facility] [address] [place], [address] GAP 6 Normal 5-15 [facility] Comment on above: Performed By: #### L 501.2450, L503.0105, L500.4050, L506.1000, L501.9520, L100.0100 #### [facility] [address] [place], [address] GFR/1.73 sq M.predicted among non-blacks MDRD (S/P/Bld) [Vol rate/Area] 63 mL/min/{1.73_m2} Normal >60 [facility] Comment on above: Result Comment: Non- GFR Calc Performed By: #### L 501.2450, L503.0105, L500.4050, L506.1000, L501.9520, L100.0100 #### [facility] [address] [place], [address] Globulin (S) [Mass/Vol] 4.0 g/dL Normal 2.2-4.2 [facility] Comment on above: Performed By: #### L 501.2450, L503.0105, L500.4050, L506.1000, L501.9520, L100.0100 #### [facility] [address] [place], [address] Glucose [Mass/Vol] 108 mg/dL High 74-106 [facility] Comment on above: Result Comment: Fast ing Glucose result from 100 to 125 mg/dL suggests IMPAIRED HOMEOSTASIS per A.D.A. criteria. Performed By: #### L 501.2450, L503.0105, L500.4050, L506.1000, L501.9520, L100.0100 #### [facility] [address] [place], [address] Potassium [Moles/Vol] 2.8 mmol/L Low 3.5-5.1 [facility] Comment on above: Performed By: #### L 501.2450, L503.0105, L500.4050, L506.1000, L501.9520, L100.0100 #### [facility] [address] [place], [address] Sodium [Moles/Vol] 139 mmol/L Normal 136-145 [facility] Comment on above: Performed By: #### L 501.2450, L503.0105, L500.4050, L506.1000, L501.9520, L100.0100 #### [facility] [address] [place], [address] T PROT 7.8 g/dL Normal 6.4-8.2 [facility] Comment on above: Performed By: #### L 501.2450, L503.0105, L500.4050, L506.1000, L501.9520, L100.0100 #### [facility] [address] [place], [address] Urea nitrogen [Mass/Vol] 14 mg/dL Normal 7-18 [facility] Comment on above: Performed By: #### L 501.2450, L503.0105, L500.4050, L506.1000, L501.9520, L100.0100 #### [facility] [address] [place], [address] Lipaseon 04-26-2024 Lipase [Catalytic activity/Vol] 21 U/L Normal 13-75 [facility] Comment on above: Result Comment: Bubba moreno note: LIPASE revised reference range effective 22. New Lipase methodology. Expected to produce lower values than the previous assay method. NEW Reference Range: 13 - 75 U/L Performed By: #### L 501.2450, L503.0105, L500.4050, L506.1000, L501.9520, L100.0100 #### [facility] [address] [place], [address] Thyroid Stim Hormone (TSH)on 04-26-2024 TSH 3.100 uIU/mL Normal 0.358-3.740 [facility] Comment on above: Performed By: #### L 501.2450, L503.0105, L500.4050, L506.1000, L501.9520, L100.0100 #### [facility] [address] [place], [address] Vitamin B12on 04-26-2024 Cobalamin (Vitamin B12) [Mass/Vol] 466 pg/mL Normal 211-911 [facility] Comment on above: Performed By: #### L 501.2450, L503.0105, L500.4050, L506.1000, L501.9520, L100.0100 #### [facility] [address] [place], [address] Vitamin D,25 Hydroxyon 04-26 Vitamin D 25-OH 76.2 ng/mL Normal [facility] Comment on above: Result Comment: Kristen min D 25(OH) Status Range Deficiency <20 ng/mL (50nmol/L) Insufficiency 20 - 30 ng/mL (50 - 75 nmol/L) Sufficiency 30 - 100 ng/mL (75 - 250 nmol/L) Toxicity >100 ng/mL (>250 nmol/L) Performed By: #### L 501.2450, L503.0105, L500.4050, L506.1000, L501.9520, L100.0100 #### [facility] [place], [address] CNOVon 04-25-2024 CNOV Office Visit (FAMPWS ) WANDA CAAL ([id number]) 1980 F Date Time Provider Department 04/25/24 10:00 AM [facility] During your visit today, we recorded the following information about you: Temperature Pulse Respiration Blood pressure 97 degrees 64/minute 12/minute 120/80 Weight 86.2 kg Hilton Doty DO 04/25/2024 11:46 AM Signed CC: Wanda Austin Caal is a 44 year old female [...] getting used to a new job at [employer] over the last 7-8 months as [...] well. would also be interested in seeing Field Staff at [facility] Currently Has been having increased stressors at [...] day, needs to make follow up with Personal Computer Network Engineer. Mood, struggling with being stressed due to [...] exercise as well. she has been seeing Field Staff at [facility] PAST MEDICAL HISTORY Diagnosis Date MAXIM positive 09/2014 Inflammatory polyarthropathy (HCC) Kidney stone with stent Raynaud's disease PAST SURGICAL HISTORY Procedure Laterality Date [facility] (MISSED AB 1ST TRIMESTER) 2001 [...] b/l, na (more content not included)... Normal [facility] 12 Lead EKGon 04-04-2024 12 Lead EKG [facility] Cardiovascular Services [address] [place] [address] 12 Lead EKG 04/04/24 1059 MR#: [id number] Acct: [id number] Name: WANDA CAAL Rep #: [id number] : 1980 44 From: Stone Quiñonez MD [...] with sinus arrhythmia Normal ECG Confirmed by KHANG ADKINS, STONE ([id number]), material expeditor LISSA BLANCO ([id number]) on 04/05/2024 1:13:27 PM Referred By: BB/TB Confirmed By:STONE QUIÑONEZ MD 04/05/24 1313 Date Stone Quiñonez MD CC: Dr. Ricki Del Rio MD; Dr. Hilton Doty DO Signed Normal [facility] Basic Metabolic Profile (BMP )on 04-04-2024 BUN/CRE 17.7 RATIO Normal 10-20 [facility] Comment on above: Order Comment: 'TROP ' Serial specimen #1, #2 or #3: 1 Performed By: #### L 100.0100, L500.2500, L501.4020 #### [facility] [address] [place], [address] CA,Total 9.4 mg/dL Normal 8.5-10.1 [facility] Comment on above: Order Comment: 'TROP ' Serial specimen #1, #2 or #3: 1 Performed By: #### L 100.0100, L500.2500, L501.4020 #### [facility] [address] [place], [address] Chloride [Moles/Vol] 101 mmol/L Normal 98-107 [facility] Comment on above: Order Comment: 'TROP ' Serial specimen #1, #2 or #3: 1 Performed By: #### L 100.0100, L500.2500, L501.4020 #### [facility] [address] [place], [address] CO2 [Moles/Vol] 33.0 mmol/L High 21.0-32.0 [facility] Comment on above: Order Comment: 'TROP ' Serial specimen #1, #2 or #3: 1 Performed By: #### L 100.0100, L500.2500, L501.4020 #### [facility] [address] [place], [address] Creatinine [Mass/Vol] 0.85 mg/dL Normal 0.55-1.02 [facility] Comment on above: Order Comment: 'TROP ' Serial specimen #1, #2 or #3: 1 Result Comment: The validity of the calculated GFR GFRAA in patients over 70 years has not been determined. Clinical correlation is essential. Performed By: #### L 100.0100, L500.2500, L501.4020 #### [facility] [address] [place], [address] ECRCL 95.95 ml/min Normal [facility] Comment on above: Order Comment: 'TROP ' Serial specimen #1, #2 or #3: 1 Performed By: #### L 100.0100, L500.2500, L501.4020 #### [facility] [address] [place], [address] EST GFR - AA 94 mL/min Normal >60 [facility] Comment on above: Order Comment: 'TROP ' Serial specimen #1, #2 or #3: 1 Result Comment: Afri can Ethiopian GFR Calc Performed By: #### L 100.0100, L500.2500, L501.4020 #### [facility] [address] [place], [address] GAP 5 Normal 5-15 [facility] Comment on above: Order Comment: 'TROP ' Serial specimen #1, #2 or #3: 1 Performed By: #### L 100.0100, L500.2500, L501.4020 #### [facility] [address] [place], [address] GFR/1.73 sq M.predicted among non-blacks MDRD (S/P/Bld) [Vol rate/Area] 77 mL/min/{1.73_m2} Normal >60 [facility] Comment on above: Order Comment: 'TROP ' Serial specimen #1, #2 or #3: 1 Result Comment: Non- GFR Calc Performed By: #### L 100.0100, L500.2500, L501.4020 #### [facility] [address] [place], [address] Glucose [Mass/Vol] 96 mg/dL Normal 74-106 [facility] Comment on above: Order Comment: 'TROP ' Serial specimen #1, #2 or #3: 1 Performed By: #### L 100.0100, L500.2500, L501.4020 #### [facility] [address] [place], [address] Potassium [Moles/Vol] 2.7 mmol/L Invalid Interpretation Code 3.5-5.1 [facility] Comment on above: Order Comment: 'TROP ' Serial specimen #1, #2 or #3: 1 Result Comment: Crit ical Result(s) Called at: 12:10:59 04/04/2024 by: Corinne Stoll. Results read back by same. Performed By: #### L 100.0100, L500.2500, L501.4020 #### [facility] [address] [place], [address] Sodium [Moles/Vol] 139 mmol/L Normal 136-145 [facility] Comment on above: Order Comment: 'TROP ' Serial specimen #1, #2 or #3: 1 Performed By: #### L 100.0100, L500.2500, L501.4020 #### [facility] [address] [place], [address] Urea nitrogen [Mass/Vol] 15 mg/dL Normal 7-18 [facility] Comment on above: Order Comment: 'TROP ' Serial specimen #1, #2 or #3: 1 Performed By: #### L 100.0100, L500.2500, L501.4020 #### [facility] [address] [place], [address] CBC W/Diff, Automatedon 09-0 Absolute Lymph 2.04 X10 3/uL Normal 0.83-4.51 [facility] Comment on above: Performed By: #### L 100.0100, L500.2500, L501.4020 #### [facility] [address] [place], [address] Absolute Neut 3.3 X10 3/uL Normal 2.0-7.7 [facility] Comment on above: Performed By: #### L 100.0100, L500.2500, L501.4020 #### [facility] [address] [place], [address] Basophils/100 WBC (Bld) 0.6 % Normal 0-1 [facility] Comment on above: Performed By: #### L 100.0100, L500.2500, L501.4020 #### [facility] [address] [place], [address] Eosinophils/100 WBC (Bld) 2.6 % Normal 0-5 [facility] Comment on above: Performed By: #### L 100.0100, L500.2500, L501.4020 #### [facility] [address] [place], [address] Erythrocyte distribution width (RBC) [Ratio] 13.8 % Normal 11.6-14.6 [facility] Comment on above: Performed By: #### L 100.0100, L500.2500, L501.4020 #### [facility] [address] [place], [address] Hematocrit (Bld) [Volume fraction] 40.8 % Normal 37-47 [facility] Comment on above: Performed By: #### L 100.0100, L500.2500, L501.4020 #### [facility] [address] [place], [address] Hemoglobin (Bld) [Mass/Vol] 13.6 g/dL Normal 12.0-15.0 [facility] Comment on above: Performed By: #### L 100.0100, L500.2500, L501.4020 #### [facility] [address] [place], [address] IG% 0.300 Normal 0.0-0.9 [facility] Comment on above: Result Comment: IG% - Immature Granulocytes (promyelocytes, myelocytes and metamyelocytes) > 1% indicates that a LEFT SHIFT is Present. Performed By: #### L 100.0100, L500.2500, L501.4020 #### [facility] [address] [place], [address] Lymphocytes/100 WBC (Bld) 33.1 % Normal 19-41 [facility] Comment on above: Performed By: #### L 100.0100, L500.2500, L501.4020 #### [facility] [address] [place], [address] MCH (RBC) [Entitic mass] 29.8 pg Normal 27.0-32.0 [facility] Comment on above: Performed By: #### L 100.0100, L500.2500, L501.4020 #### [facility] [address] [place], [address] MCHC (RBC) [Mass/Vol] 33.3 g/dL Normal 32-36 [facility] Comment on above: Performed By: #### L 100.0100, L500.2500, L501.4020 #### [facility] [address] [place], [address] MCV (RBC) [Entitic vol] 89.5 fL Normal 81-99 [facility] Comment on above: Performed By: #### L 100.0100, L500.2500, L501.4020 #### [facility] [address] [place], [address] Monocytes/100 WBC (Bld) 9.4 % Normal 0-10 [facility] Comment on above: Performed By: #### L 100.0100, L500.2500, L501.4020 #### [facility] [address] [place], [address] Neutrophils/100 WBC (Bld) 54.0 % Normal 47-70 [facility] Comment on above: Performed By: #### L 100.0100, L500.2500, L501.4020 #### [facility] [address] [place], [address] Nucleated RBC (Bld) [#/Vol] 0 10*3/uL Normal 0-5 [facility] Comment on above: Performed By: #### L 100.0100, L500.2500, L501.4020 #### [facility] [address] [place], [address] Platelet mean volume (Bld) [Entitic vol] 10.1 fL Normal 6.2-12.0 [facility] Comment on above: Performed By: #### L 100.0100, L500.2500, L501.4020 #### [facility] [address] [place], [address] Platelets (Bld) [#/Vol] 229 10*3/uL Normal 150-450 [facility] Comment on above: Performed By: #### L 100.0100, L500.2500, L501.4020 #### [facility] [address] [place], [address] RBC (Bld) [#/Vol] 4.56 10*6/uL Normal 4.2-5.4 [facility] Comment on above: Performed By: #### L 100.0100, L500.2500, L501.4020 #### [facility] [address] [place], [address] RDW SD 44.9 fl High 35.1-43.9 [facility] Comment on above: Performed By: #### L 100.0100, L500.2500, L501.4020 #### [facility] [address] [place], [address] WBC (Bld) [#/Vol] 6.2 10*3/uL Normal 4.4-11.0 [facility] Comment on above: Performed By: #### L 100.0100, L500.2500, L501.4020 #### [facility] [address] [place], [address] Chest PA and Lateralon 04-04 Chest PA and Lateral [facility] Imaging Services [address] [place] [address] Chest PA and Lateral MR#: [id number] Acct: [id number] Name: WANDA CAAL Rep #: [id number] : 1980 F 44 From: Noel mcgraw DO PCP: Dr. Hilton Doty DO Status: REG ER Study: Chest PA and Lateral Date of Exam: 04/04/24 Exam# [id number] Ordering Dr: Ricki Del Rio MD [id number] EXAM: XR CHEST, 2 VIEWS CLINICAL INDICATION: [...] Del Rio MD; Dr. Hilton Doty DO Swimming Pool Attendant: Signed Normal [facility] Emergency Department Summary on 04-04-2024 Emergency Department Summary [facility] Medical Records Department [address] [place] [address] Emergency Department Summary 04/04/24 MR#: [id number] Acct: [id number] Name: WANDA CAAL Rep #: [id number] : 1980 44 From: Ricki Del Rio MD PCP: Dr. Hilton Doyt DO Status:REG ER Location: ED HPI History [...] work outside gardening/landscaping yesterday and other days. 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 Normal [facility] L501.4020on 04-04-2024 TROPONIN-I HS 5 pg/mL Normal 3.0-54.0 [facility] Comment on above: Order Comment: 'TROP ' Serial specimen #1, #2 or #3: 1 Result Comment: Bubba moreno Note: New Test Units and Gender Specific Reference Ranges. For more information see Policy Stat Procedure [place] High Sensitivity Troponin (TNIH) and attachments. Performed By: #### L 100.0100, L500.2500, L501.4020 #### [facility] [address] [place], [address] CNOVon 02-08-2024 [facility] Office Visit (FAMPWS ) WANDA CAAL ([id number]) 1980 F Date Time Provider Department 02/08/24 3:40 PM [facility] During your visit today, we recorded the following information about you: Pulse Respiration Blood pressure Weight 64/minute 16/minute 108/64 89.8 kg Doris Driscoll, MEDICAL ATTENDANT.CAR GREASER 02/08/2024 5:13 PM Addendum This is a 44 year old female who presents today with: Patient presents with: ER F/U: [facility] 02/05/24 Fall HISTORY OF PRESENT ILLNESS: Wanda Caal is a 44 year old female. Patient presents with: ER F/U: [facility] 02/05/24 Fall Fell backwards off a 4 [...] disease PAST SURGICAL HISTORY Procedure Laterality Date [facility] (MISSED AB 1ST TRIMESTER) 2001 ESW[facility] Right [...] x-ray showed (more content not included)... Normal [facility] No Panel Informationon 02-07 IMPRESSION: No acute fracture or malalignment Swimming Pool Attendant: VICKY Transcribe Date/Time: Feb 08 2024 5:24P Dictated by : JAMMIE HOBBS MD This examination was interpreted and the report reviewed and electronically signed by: JAMMIE HOBBS MD on Feb 08 2024 5:28PM EST DIVISION OF RADIOLOGY Radiology Study observation (narrative) [facility] No Panel InformationOrdered By: [facility] Provider on 02-08-2024 [facility] XR LUMBAR 3V AP/LAT/L5-S1on 02-08-2024 XR [...] osteophytes. IMPRESSION: No acute fracture or malalignment Swimming Pool Attendant: VICKY Transcribe Date/Time: Feb 08 2024 5:24P Dictated by : JAMMIE HOBBS MD This examination was interpreted and the report reviewed and electronically signed by: JAMMIE HOBBS MD on Feb 08 2024 5:28PM EST [id number] Normal [facility] XR Lumbar spine 3 Viewson * * [...] vertebral body osteophytes. DIVISION OF RADIOLOGY Provider, [facility] - 02/08/2024 * * *Final Report* [...] IMPRESSION IMPRESSION: No acute fracture or malalignment Swimming Pool Attendant: [facility] Transcribe Date/Time: Feb 08 2024 5:24P Dictated by : JAMMIE HOBBS MD This examination was interpreted and the report reviewed and electronically signed by: JAMMIE HOBBS MD on Feb 08 2024 5:28PM [facility] XR THORACIC 3V AP/LAT/SWIMME RS 02-08-2024 XR THORACIC 3V AP/LAT/SWIMMERS * * [...] osteophytes. IMPRESSION: No acute fracture or malalignment Swimming Pool Attendant: VICKY Transcribe Date/Time: Feb 08 2024 5:24P Dictated by : JAMMIE HOBBS MD This examination was interpreted and the report reviewed and electronically signed by: JAMMIE HOBBS MD on Feb 08 2024 5:28PM EST [id number] Normal [facility] XR Thoracic spine AP and Lat eral [...] vertebral body osteophytes. DIVISION OF RADIOLOGY [facility] * * *Final Report* * [...] IMPRESSION IMPRESSION: No acute fracture or malalignment Swimming Pool Attendant: VICKY Transcribe Date/Time: Feb 08 2024 5:24P Dictated by : JAMMIE HOBBS MD This examination was interpreted and the report reviewed and electronically signed by: JAMMIE HOBBS MD on Feb 08 2024 5:28PM [facility] Emergency Department Summary on 02-05-2024 Emergency Department Summary [facility] Medical Records Department [address] [place] [address] Emergency Department Summary 02/05/24 MR#: [id number] Acct: [id number] Name: WANDA CAAL Rep #: [id number] : 1980 44 From: Jasen Ortiz MD [...] on her right side. No blood thinners. 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 Const Vital Signs: 02/05/24 11:09 02/05/24 11:30 [...] but not (more content not included)... Normal [facility] Shoulder min 2 Viewson 02-04 Shoulder min 2 Views [facility] Imaging Services [address] [place], [place] [address] Shoulder min 2 Views MR#: [id number] Acct: [id number] Name: CAALWANDA Rep #: [id number] : 1980 F 44 From: Skip Quintero PCP: Dr. Hilton Doty DO Status: REG ER Study: Shoulder min 2 Views Date of Exam: 02/05/24 Exam# [id number] Ordering Dr: Perla Flower [id number] INDICATION: pain EXAMINATION/TECHNIQUE : X-RAY - RIGHT [...] CC: Dr. Hilton Doty DO; JAYE Villareal Swimming Pool Attendant: Signed Normal [facility] Internal Medicine Office [facility]24 Internal Medicine Office Visit [facility] [place] [address] [place] [address] OFFICE VISIT Date of Service: 09/26/23 MR#: [id number] Acct: [id number] Name: WANDA CAAL Rep #: [id number] : 1980 Provider: BUSTER segundo Age/Sex: 43/F Location: [facility] Status: Signed Intake Vital Signs 09/24/23 08:34 Height 5 ft 7 in Intake Visit Reasons: EMPLOYEE COVID TEST Chief Complaint: fatigue, KING, fever, congestion ear pain Allergies Penicillins (PCN) Allergy (Verified 02/05/24 11:10) Unknown [facility] Medical History Anxiety Arthritis Former smoker History of edema History of ureteral stone Kidney stones Rheumatoid arthritis Wears dentures Wears glasses Surgical History History of laparoscopic cholecystectomy Hx of cystoscopy Hx of dilation and curettage Hx of tooth extraction Hx of varicose vein stripping S/P tubal ligation Status post hysteroscopic ablation of endometrium ( 09/29/23) Social History current occupational status: employed 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 Smoking Status: Former smoker alcohol [...] Covid - Covid Test (Bill Insurance): Yes ([id number]) Assessment and Plan Assessment and Plan Orders: Orders POC Cepheid Covid, FluAB, RSV 09/26/23 [facility] Billing Sheet Covid Covid Test (Bill Insurance): Yes 03/17/24 1205 Date Saskia Noguera Signature: Date (if applicable) CC: [facility] 01-20-2024 CNOV Office Visit (FAMPWS ) WANDA CAAL ([id number]) 1980 F Date Time Provider Department 01/20/24 6:40 PM HILTON DOTY FAMPWS During your visit today, we recorded the following information about you: Temperature Pulse Respiration Blood pressure 97 degrees 60/minute 16/minute 100/60 Weight 87.1 kg Hilton Doty, DO 01/20/2024 7:37 PM Signed Magnesium citrate 400-500 mg in the evening Hilton Doty, DO 01/25/2024 7:51 AM Signed CC: Wanda Caal is a 43 year old female who presents to the office for follow up HPI: Inflammatory polyarthropathy, no signs of retinal concerns for her plaquenil monitoring. states had dilated eye exam by Dr. Genao in May 2023 last, has this exam yearly. 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 Knows need for further weight loss. Is taking the qsymia and tolerating rx well. Would like to continue medication. Trying to continue healthy diet choices and exercise as well. she recently was able to see Field Staff at [employer] with benefit Mood, feels she is overall [...] - Continue (more content not included)... Normal [facility] Laboratory - Microbiology an d Antimicrobial susceptibilityon 11-20-2023 SARS-CoV-2 (COVID-19) RNA FERNANDO+probe Ql (Unsp spec) Not detected [facility] No Panel Informationon 11-19 POC Nasal Swab Influenza A,B Not detected [facility] POC Nasal Swab RSV Not detected [facility] Basophil percentageOrdered B y: Priscilla Nieto on 09-29-2023 Hemoglobin (Bld) [Mass/Vol] 12.6 g/dL 12.0-15.0 [facility] WBC (Bld) [#/Vol] 3.3 10*3/uL 4.4-11.0 [facility] Determination of erythrocyte mean corpuscular volume (MCV)Ordered By: Priscilla Nieto on 09-29-2023 MCV (RBC) [Entitic vol] 89.7 fL 81-99 [facility] Erythrocyte distribution wid th ratioOrdered By: Priscilla Nieto on 09-29-2023 Erythrocyte distribution width (RBC) [Ratio] 12.8 % 11.6-14.6 [facility] Erythrocyte distribution wid th standard deviationOrdered By: Priscilla Nieto on 09-29-2023 Erythrocyte distribution width (RBC) [Entitic vol] 41.9 fL 35.1-43.9 [facility] Hematocrit Auto (Bld) [Volum e fraction]Ordered By: Priscilla Nieto on 09-29-2023 Hematocrit (Bld) [Volume fraction] 38.5 % 37-47 [facility] Laboratory - Chemistry and C hemistry - challengeOrdered By: Prsicilla Nieto on 09-29-2023 HCG ( test) Ql (U) Negative [facility] Comment on above: Very dilute urine sp ecimens, as indicated by a low specificgravity, may not contain ambulatory services representative levels of hCG. If is still suspected, a first morning urinespecimen should be collected 48 hours later and tested. Laboratory - Hematology and Cell countsOrdered By: Priscilla Nieto on 09-29-2023 MCH (RBC) [Entitic mass] 29.4 pg 27.0-32.0 [facility] MCHC (RBC) [Mass/Vol] 32.7 g/dL 32-36 [facility] Platelet mean volume (Bld) [Entitic vol] 10.4 fL 6.2-12.0 [facility] Platelets (Bld) [#/Vol] 131 10*3/uL 150-450 [facility] RBC Auto (Bld) [#/Vol]Ordere d By: Priscilla Nieto on 09-29-2023 RBC (Bld) [#/Vol] 4.29 10*6/uL 4.2-5.4 [facility] Laboratory - Microbiology an d Antimicrobial susceptibilityon 09-26-2023 SARS-CoV-2 (COVID-19) RNA FERNANDO+probe Ql (Unsp spec) Not detected [facility] No Panel Informationon 09-26 POC Nasal Swab Influenza A,B Detected [facility] POC Nasal Swab RSV Not detected [facility] Absolute lymphocyte countOrd ered By: LEO MÉNDEZ on 09-02-2023 Lymphocytes Auto (Unsp spec) [#/Vol] 2.69 10*3/uL 0.83-4.51 [facility] Automated lymphocyte count a s percentage of total leukocytesOrdered By: LEO MÉNDEZ on 09-02-2023 Lymphocytes/100 WBC Auto (Unsp spec) 31.1 % 19-41 [facility] Basophil percentageOrdered B y: LEO MÉNDEZ on 09-02-2023 Basophils/100 WBC (Bld) 0.6 % 0-1 [facility] Eosinophils/100 WBC (Bld) 1.2 % 0-5 [facility] Hemoglobin (Bld) [Mass/Vol] 14.7 g/dL 12.0-15.0 [facility] Monocytes/100 WBC (Bld) 8.9 % 0-10 [facility] Neutrophils (Bld) [#/Vol] 5.0 10*3/uL 2.0-7.7 [facility] Neutrophils/100 WBC (Bld) 58.0 % 47-70 [facility] WBC (Bld) [#/Vol] 8.7 10*3/uL 4.4-11.0 [facility] Determination of erythrocyte mean corpuscular volume (MCV)Ordered By: LEO MÉNDEZ on 09-02-2023 MCV (RBC) [Entitic vol] 91.0 fL 81-99 [facility] Erythrocyte distribution wid th ratioOrdered By: LEO MÉNDEZ on 09-02-2023 Erythrocyte distribution width (RBC) [Ratio] 13.1 % 11.6-14.6 [facility] Erythrocyte distribution wid th standard deviationOrdered By: LEO MÉNDEZ on 09-02-2023 Erythrocyte distribution width (RBC) [Entitic vol] 43.1 fL 35.1-43.9 [facility] Hematocrit Auto (Bld) [Volum e fraction]Ordered By: LEO MÉNDEZ on 09-02-2023 Hematocrit (Bld) [Volume fraction] 44.5 % 37-47 [facility] Immature granulocytes/100 WB C Auto (Bld)Ordered By: LEO MÉNDEZ on 09-02-2023 Immature granulocytes/100 WBC (Bld) 0.200 % 0.0-0.9 [facility] Comment on above: IG% - Immature Granu locytes (promyelocytes, myelocytes and metamyelocytes) > 1% indicates that a LEFT SHIFT is Present. Laboratory - Chemistry and C hemistry - challengeOrdered By: LEO MÉNDEZ on 09-02-2023 ALT [Catalytic activity/Vol] 28 U/L 13-56 [facility] Laboratory - Hematology and Cell countsOrdered By: LEO MÉNDEZ on 09-02-2023 MCH (RBC) [Entitic mass] 30.1 pg 27.0-32.0 [facility] MCHC (RBC) [Mass/Vol] 33.0 g/dL 32-36 [facility] Nucleated RBC/100 WBC (Bld) [Ratio] 0 % 0-5 [facility] Platelets (Bld) [#/Vol] 301 10*3/uL 150-450 [facility] No Panel InformationOrdered By: LEO MÉNDEZ on 09-02-2023 Estimated GFR (MDRD) Amer 87 mL/min >60 [facility] Comment on above: GFR Calc Estimated GFR (MDRD) Non-Af Amer 72 mL/min >60 [facility] Comment on above: Non- GFR Calc Platelet mean volume Lai-Ec ker (Bld) [Entitic vol]Ordered By: LEO MÉNDEZ on 09-02-2023 Platelet mean volume (Bld) [Entitic vol] 9.4 fL 6.2-12.0 [facility] RBC Auto (Bld) [#/Vol]Ordere d By: LEO MÉNDEZ on 09-02-2023 RBC (Bld) [#/Vol] 4.89 10*6/uL 4.2-5.4 [facility] Serum or plasma creatinine m easurement (mass/volume)Ordered By: LEO MÉNDEZ on 09-02-2023 Creatinine [Mass/Vol] 0.90 mg/dL 0.55-1.02 [facility] Comment on above: The validity of the calculated GFR & GFRAA in patients over 70 years has not been determined. Clinical correlation is essential. Thin prep Papanicolaou smear with manual screeningOrdered By: LEO MÉNDEZ on 09-02-2023 Thin prep Papanicolaou smear with manual screening 12 U/L 15-37 [facility] Cervical or vaginal specimen microscopic examination by liquid based cytology (reported as document)Ordered By: Nilda Loya on 08-12-2023 Cytology report Cyto stain.thin prep Doc (Cvx/Vag) Comment . [facility] Comment on above: Criteria met, see HP V Genotype results. Cervical or vagninal specime n microscopic examination by cytology stain (reported asOrdered By: Nilda Loya on 08-12-2023 Cytology report Cyto stain Doc (Cvx/Vag) Comment . [facility] Comment on above: The Pap smear is [...] E6+E7 mRNA FERNANDO+probe Ql (Cvx) Negative Negative [facility] Comment on above: Performed at: [facility] - [facility] [address] [id number] Director: Viktoriya Vargas MD, Phone: [phone] at: =G - [facility] [address] [id number] Director: Viktoriya Vargas MD, Phone: [phone] Cervical specimen human cuong lloma virus (HPV) type 16 DNA detection by probe with sigOrdered By: Nilda Loya on 08-12-2023 HPV 16 DNA Probe+sig amp Ql (Cvx) Positive Negative [facility] Detection in cervical specim en of any of human papilloma virus (HPV) 16, 18, 31, 33,Ordered By: Nilda Loya on 08-12-2023 HPV 16+18+31+33+35+39+45+51 +52+56+58+59+66+68 DNA Probe+sig amp Ql (Cvx) Positive Negative [facility] Comment on above: This nucleic acid am plification test detects fourteen high-risk HPV types (16,18,31,33,35,39,45,51,52,56,58,59,66,68)without differentiation. Laboratory - CytologyOrdered By: Nilda Loya on 08-12-2023 [employer] Room Custodian Cyto stain Nom (Cvx/Vag) [ID] Comment . [facility] Comment on above: Delphine Sauer, Cyto technologist (ASCP) Laboratory - Miscellaneous t estsOrdered By: Nilda Loya on 08-12-2023 Service comment (Unsp spec) [Interp] . . [facility] Thin prep Papanicolaou smear with manual screeningOrdered By: Nilda Loya on 08-12-2023 Thin prep Papanicolaou smear with manual screening Comment . [facility] Comment on above: NEGATIVE FOR INTRAEP ITHELIAL LESION OR MALIGNANCY. This liquid based Th inPrep(R) pap test was screened withthe use of an image guided system. Serum hepatitis B virus surf deejay antibody IgG detectionOrdered By: HEALTH ASSESSMENT on 05-12-2023 HBV surface IgG Ql (S) Non-Reactive [facility] Comment on above: Non Reactive: Incons istent with immunity less than <10 mIU/mL Reactive: Consistent with immunity greater than or equal to 10 mIU/mL No Panel InformationOrdered By: [employer] [facility] on 02-25-2023 Hepatitis B Surface Antibody Non-Reactive [facility] Comment on above: Non Reactive: Incons istent with immunity less than <10 mIU/mL Reactive: Consistent with immunity greater than or equal to 10 mIU/mL Rubella IgG Antibody Reactive Nonreactive [facility] Comment on above: Antibody Results Int erpretation of Immune Status Non Reactive Presumed Non-Immune Equivocal Equivocal Reactive Presumed Immune Serum Varicella zoster virus IgG antibody assay by immunoassay (units/volume)Ordered By: [employer] on 02-25-2023 VZV IgG IA Qn (S) 1866 index Immune >165 [facility] Comment on above: Negative <135 Equivo chivo 135 - 165 Positive >165A positive result generally indicates exposure to thepathogen or administration of specific immunoglobulins,but it is not indication of active infection or stageof disease. Serum measles virus IgG anti body assay (units/volume)Ordered By: [employer] on 02-25-2023 MeV IgG Qn (S) > 300.0 AU/mL Immune >16.4 [facility] Comment on above: Negative <13.5 Equiv ocal 13.5 - 16.4 Positive >16.4Presence of antibodies to Rubeola is presumptive evidenceof immunity except when acute infection is suspected.Performed at: - [facility] [id number] Director: Gabe Fry PhD, Phone: [phone] Serum mumps virus IgG antibo dy assay (units/volume)Ordered By: [employer] [facility] on 02-25-2023 MuV IgG Qn (S) 192.0 AU/mL Immune >10.9 [facility] Comment on above: Negative <9.0 Equivo chivo 9.0 - 10.9 Positive >10.9A positive result generally indicates past exposure toMumps virus or previous vaccination. CBC W Auto Differential pane l (Bld)on 08-28-2022 Basophils (Bld) [#/Vol] 0.04 10*3/uL <0.11 k/uL [facility] Basophils/100 WBC (Bld) 0.7 % C [facility] Differential cell count method Nom (Bld) Auto [facility] Eosinophils (Bld) [#/Vol] 0.08 10*3/uL <0.46 k/uL [facility] Eosinophils/100 WBC (Bld) 1.4 % [facility] Erythrocyte distribution width (RBC) [Ratio] 13.0 % 11.5 - 15.0 % [facility] Hematocrit (Bld) [Volume fraction] 42.3 % 36.0 - 46.0 % [facility] Hemoglobin (Bld) [Mass/Vol] 14.2 g/dL 11.5 - 15.5 g/dL [facility] Immature granulocytes (Bld) [#/Vol] <0.10 k/uL [facility] Immature granulocytes/100 WBC (Bld) 0.0 % [facility] Lymphocytes (Bld) [#/Vol] 1.79 10*3/uL 1.00 - 4.00 k/uL [facility] Lymphocytes/100 WBC (Bld) 31.7 % [facility] MCH (RBC) [Entitic mass] 30.4 pg 26.0 - 34.0 pg [facility] MCHC (RBC) [Mass/Vol] 33.6 g/dL 30.5 - 36.0 g/dL [facility] MCV (RBC) [Entitic vol] 90.6 fL 80.0 - 100.0 fL [facility] Monocytes (Bld) [#/Vol] 0.43 10*3/uL <0.87 k/uL [facility] Monocytes/100 WBC (Bld) 7.6 % C [facility] Neutrophils (Bld) [#/Vol] 3.31 10*3/uL 1.45 - 7.50 k/uL [facility] Neutrophils/100 WBC (Bld) 58.6 % [facility] Nucleated RBC (Bld) [#/Vol] <0.01 k/uL [facility] Nucleated RBC/100 WBC (Bld) [Ratio] 0.0 /100 WBC [facility] Platelet mean volume (Bld) [Entitic vol] 9.8 fL 9.0 - 12.7 fL [facility] Platelets (Bld) [#/Vol] 250 10*3/uL 150 - 400 k/uL [facility] RBC (Bld) [#/Vol] 4.67 10*6/uL 3.90 - 5.2 0 m/uL [facility] WBC (Bld) [#/Vol] 5.65 10*3/uL 3.70 - 11. 00 k/uL [facility] ESR Westergren method (Bld) [Velocity]on 08-28-2022 ESR (Bld) [Velocity] 12 mm/h 0 - 20 mm/hr [facility] Vital Signs Date Time Vital Sign Value Performing Clinician Facility 01-13-2025 08:07-0400 Body temperature 98.2 [degF] Dr. Hilton Doty DO Work Phone: [facility] 01-13-2025 08:07-0400 Body weight 87.[address] Hilton Doty DO Work Phone: [facility] 01-13-2025 08:07-0400 Diastolic blood pressure 71 mm[Hg] Dr. Hilton Doty DO Work Phone: [facility] 01-13-2025 08:07-0400 Heart rate 65 /min Dr. Hilton Doty DO Work Phone: [facility] 01-13-2025 08:07-0400 Respiratory rate 16 /min Dr. Hilton Doty DO Work Phone: [facility] 01-13-2025 08:07-0400 SaO2% (BldA) [Mass fraction] 100 % Dr. Hilton Doty DO Work Phone: 5(750)297-962687 [place] [address] 01-13-2025 08:07-0400 Systolic blood pressure 122 mm[Hg] Dr. Hilton Doty DO Work Phone: 6(389)351-313387 [place] [address] 01-10-2025 09:01-0400 Body height 167.[address] Hilton Doty DO Work Phone: 2(798)100-222687 [place] [address] 01-10-2025 09:01-0400 Body weight 86.[address] Hilton Doty DO Work Phone: 2(302)081-648787 [place] [address] 01-09-2025 08:47-0400 Body mass index (BMI) [Ratio] 30.7 kg/m2 Dr. Hilton Doty DO Work Phone: 3(672)985-079587 [place] [address] 12-19-2024 15:59-0400 Body height 167.[address] Hilton Doty DO Work Phone: 7(214)597-212687 [place] [address] 12-19-2024 15:59-0400 Body mass index (BMI) [Ratio] 30.7 kg/m2 Dr. Hilton Doty DO Work Phone: 3(134)154-117087 [place] [address] 12-19-2024 15:59-0400 Body temperature 98.7 [degF] Dr. Hilton Doty DO Work Phone: 9(786)201-905787 [place] [address] 12-19-2024 15:59-0400 Body weight 86.[address] Hilton Doty DO Work Phone: 0(693)322-672287 [place] [address] 12-19-2024 15:59-0400 Diastolic blood pressure 77 mm[Hg] Dr. Hilton Doty DO Work Phone: 4(171)024-122087 [place] [address] 12-19-2024 15:59-0400 Heart rate 63 /min Dr. Hilton Doty DO Work Phone: 1(352)619-581587 [place] [address] 12-19-2024 15:59-0400 Respiratory rate 14 /min Dr. Hilton Doty DO Work Phone: 0(831)884-863287 [place] [address] 12-19-2024 15:59-0400 SaO2% (BldA) [Mass fraction] 100 % Dr. Hilton Doty DO Work Phone: 0(065)516-670119 [place] [address] 12-19-2024 15:59-0400 Systolic blood pressure 120 mm[Hg] Dr. Hilton Doty DO Work Phone: 6(719)281-753387 [place] [address] 12-12-2024 09:31-0400 Body height 167.[address] Hilton Doty DO Work Phone: 4(467)756-815519 [place] [address] 12-12-2024 09:30-0400 Body mass index (BMI) [Ratio] 30.5 kg/m2 Dr. Hilton Doty DO Work Phone: 1(944)422-348587 [place] [address] 12-12-2024 09:30-0400 Body weight 85.[address] Hilton Doty DO Work Phone: 7(868)793-336187 [place] [address] 12-12-2024 09:30-0400 Diastolic blood pressure 80 mm[Hg] Dr. Hilton Doty DO Work Phone: 5(416)238-043187 [place] [address] 12-12-2024 09:30-0400 Systolic blood pressure 125 mm[Hg] Dr. Hilton Doty DO Work Phone: 5(903)056-068287 [place] [address] 11-16-2024 18:51-0400 Body mass index (BMI) [Ratio] 29.82 kg/m2 Hilton Doty DO Work Phone: [facility] 11-16-2024 18:51-0400 Body weight 86.36 kg Hilton Doty DO Work Phone: [facility] 11-16-2024 18:51-0400 Diastolic blood pressure 89 mm[Hg] Hilton Doty DO Work Phone: [facility] 11-16-2024 18:51-0400 Heart rate 60 /min Hilton Doty DO Work Phone: 4(231)500-817110 [place] [address] 11-16-2024 18:51-0400 Respiratory rate 12 /min Hilton Doty DO Work Phone: [facility] 11-16-2024 18:51-0400 Systolic blood pressure 127 mm[Hg] Hilton Doty DO Work Phone: [facility] 11-02-2024 11:44-0400 Body temperature 97.2 [degF] Dr. Hilton Doty DO Work Phone: [facility] 11-02-2024 11:44-0400 Body weight 87.[address] Hilton Doty DO Work Phone: [facility] 11-02-2024 11:44-0400 Diastolic blood pressure 75 mm[Hg] Dr. Hilton Doty DO Work Phone: 3(703)957-868119 [place] [address] 11-02-2024 11:44-0400 Heart rate 70 /min Dr. Hilton Doty DO Work Phone: 9(658)117-449419 [place] [address] 11-02-2024 11:44-0400 Respiratory rate 16 /min Dr. Hilton Doty DO Work Phone: 5(661)688-863819 [place] [address] 11-02-2024 11:44-0400 SaO2% (BldA) [Mass fraction] 100 % Dr. Hilton Doty DO Work Phone: [facility] 11-02-2024 11:44-0400 Systolic blood pressure 135 mm[Hg] Dr. Hilton Doty DO Work Phone: [facility] 10-26-2024 18:03-0400 Body mass index (BMI) [Ratio] 29.76 kg/m2 Hilton Doty DO Work Phone: [facility] 10-26-2024 18:03-0400 Body temperature 97.39 [degF] Hilton Doty DO Work Phone: [facility] 10-26-2024 18:03-0400 Body weight 86.18 kg Hilton Doty DO Work Phone: [facility] 10-26-2024 18:03-0400 Diastolic blood pressure 80 mm[Hg] Hilton Doty DO Work Phone: [facility] 10-26-2024 18:03-0400 Heart rate 76 /min Hilton Doty DO Work Phone: [facility] 10-26-2024 18:03-0400 Respiratory rate 16 /min Hilton Doty DO Work Phone: [facility] 10-26-2024 18:03-0400 Systolic blood pressure 120 mm[Hg] Hilton Doty DO Work Phone: [facility] 10-14-2024 13:23-0400 Body mass index (BMI) [Ratio] 29.35 kg/m2 Rajinder Hinton APRN.VEGETABLE VENDOR Work Phone: [facility] 10-14-2024 13:23-0400 Body weight 85 kg Rajinder Hinton APRN.VEGETABLE VENDOR Work Phone: [facility] 10-14-2024 13:23-0400 Diastolic blood pressure 71 mm[Hg] Rajinder Hinton APRN.VEGETABLE VENDOR Work Phone: [facility] 10-14-2024 13:23-0400 Heart rate 81 /min Rajinder Hinton APRN.VEGETABLE VENDOR Work Phone: [facility] 10-14-2024 13:23-0400 SaO2% (BldA) [Mass fraction] 100 % Rajinder Hinton APRN.VEGETABLE VENDOR Work Phone: [facility] 10-14-2024 13:23-0400 Systolic blood pressure 102 mm[Hg] Rajinder Hinton APRN.VEGETABLE VENDOR Work Phone: [facility] 10-13-2024 22:35-0400 Body temperature 97.8 [degF] Dr. Hilton Doty DO Work Phone: [facility] 10-13-2024 22:35-0400 Diastolic blood pressure 68 mm[Hg] Dr. Hilton Doty DO Work Phone: [facility] 10-13-2024 22:35-0400 Heart rate 71 /min Dr. Hilton Doty DO Work Phone: [facility] 10-13-2024 22:35-0400 Respiratory rate 16 /min Dr. Hilton Doty DO Work Phone: 7(455)508-458687 [place] [address] 10-13-2024 22:35-0400 SaO2% (BldA) [Mass fraction] 99 % Dr. Hilton Doty DO Work Phone: 7(779)004-998487 [place] [address] 10-13-2024 22:35-0400 Systolic blood pressure 113 mm[Hg] Dr. Hilton Doty DO Work Phone: 5(746)973-263487 [place] [address] 10-13-2024 17:15-0400 Body height 167.[address] Hilton Doty DO Work Phone: 9(844)279-950187 [place] [address] 10-13-2024 17:15-0400 Body mass index (BMI) [Ratio] 30.2 kg/m2 Dr. Hilton Doty DO Work Phone: 5(220)654-094887 [place] [address] 10-13-2024 17:15-0400 Body weight 84.[address] Hilton Doty DO Work Phone: 5(961)763-752787 [place] [address] 09-08-2024 11:19-0500 Body temperature 98 [degF] Dr. Hilton Doty DO Work Phone: 1(476)902-998187 [place] [address] 09-08-2024 11:19-0500 Body weight 86.[address] Hilton Doty DO Work Phone: 6(326)072-849087 [place] [address] 09-08-2024 11:19-0500 Diastolic blood pressure 91 mm[Hg] Dr. Hilton Doty DO Work Phone: 7(994)198-730087 [place] [address] 09-08-2024 11:19-0500 Heart rate 71 /min Dr. Hilton Dtoy DO Work Phone: 0(337)526-646587 [place] [address] 09-08-2024 11:19-0500 Respiratory rate 16 /min Dr. Hilton Doty DO Work Phone: 5(194)010-039687 [place] [address] 09-08-2024 11:19-0500 SaO2% (BldA) [Mass fraction] 99 % Dr. Hilton Doty DO Work Phone: 0(201)168-749387 [place] [address] 09-08-2024 11:19-0500 Systolic blood pressure 136 mm[Hg] Dr. Hilton Doty DO Work Phone: [facility] 08-01-2024 10:12-0500 Body mass index (BMI) [Ratio] 30.85 kg/m2 Hilton Doty DO Work Phone: [facility] 08-01-2024 10:12-0500 Body temperature 97.59 [degF] Hilton Doty DO Work Phone: [facility] 08-01-2024 10:12-0500 Body weight 89.36 kg Hilton Doty DO Work Phone: [facility] 08-01-2024 10:12-0500 Diastolic blood pressure 70 mm[Hg] Hilton Yunrison DO Work Phone: [facility] 08-01-2024 10:12-0500 Heart rate 64 /min Hilton Doty DO Work Phone: [facility] 08-01-2024 10:12-0500 Respiratory rate 16 /min Hilton Doty DO Work Phone: [facility] 08-01-2024 10:12-0500 Systolic blood pressure 130 mm[Hg] Hilton Doty DO Work Phone: [facility] 04-25-2024 10:16-0400 Body mass index (BMI) [Ratio] 29.76 kg/m2 Hilton Doty DO Work Phone: [facility] 04-25-2024 10:16-0400 Body temperature 97 [degF] Hilton Doty DO Work Phone: [facility] 04-25-2024 10:16-0400 Body weight 86.18 kg Hilton Doty DO Work Phone: [facility] 04-25-2024 10:16-0400 Diastolic blood pressure 80 mm[Hg] Hilton Doty DO Work Phone: [facility] 04-25-2024 10:16-0400 Heart rate 64 /min Hilton Doty DO Work Phone: [facility] 04-25-2024 10:16-0400 Respiratory rate 12 /min Hilton Doty DO Work Phone: [facility] 04-25-2024 10:16-0400 Systolic blood pressure 120 mm[Hg] Hilton Doty DO Work Phone: [facility] 02-08-2024 15:59-0400 Body mass index (BMI) [Ratio] 31.01 kg/m2 Doris Suppan MEDICAL ATTENDANT.CAR GREASER Work Phone: [facility] 02-08-2024 15:59-0400 Body weight 89.81 kg Doris Suppan MEDICAL ATTENDANT.CAR GREASER Work Phone: [facility] 02-08-2024 15:59-0400 Diastolic blood pressure 64 mm[Hg] Doris Suppan MEDICAL ATTENDANT.CAR GREASER Work Phone: [facility] 02-08-2024 15:59-0400 Heart rate 64 /min Doris Suppan MEDICAL ATTENDANT.CAR GREASER Work Phone: [facility] 02-08-2024 15:59-0400 Respiratory rate 16 /min Doris Suppan MEDICAL ATTENDANT.CAR GREASER Work Phone: [facility] 02-08-2024 15:59-0400 SaO2% (BldA) [Mass fraction] 99 % Doris Suppan MEDICAL ATTENDANT.CAR GREASER Work Phone: [facility] 02-08-2024 15:59-0400 Systolic blood pressure 108 mm[Hg] Doris Suppan MEDICAL ATTENDANT.CAR GREASER Work Phone: [facility] 01-20-2024 19:11-0400 Body mass index (BMI) [Ratio] 30.07 kg/m2 Hilton Doty DO Work Phone: [facility] 01-20-2024 19:11-0400 Body temperature 97 [degF] Hilton Doty DO Work Phone: [facility] 01-20-2024 19:11-0400 Body weight 87.09 kg Hilton Doty DO Work Phone: [facility] 01-20-2024 19:11-0400 Diastolic blood pressure 60 mm[Hg] Hilton Doty DO Work Phone: [facility] 01-20-2024 19:11-0400 Heart rate 60 /min Hilton Yunrison DO Work Phone: [facility] 01-20-2024 19:11-0400 Respiratory rate 16 /min Hilton Doty DO Work Phone: [facility] 01-20-2024 19:11-0400 Systolic blood pressure 100 mm[Hg] Hilton Doty DO Work Phone: [facility] 11-25-2023 16:07-0400 Body height 170.[address] Hilton Doty Work Phone: [facility] 11-25-2023 16:07-0400 Body weight 87.[address] Hilton Doty Work Phone: [facility] 11-20-2023 14:46-0400 Body mass index (BMI) [Ratio] 31.3 kg/m2 Dr. Hilton Doty Work Phone: 1(566)228-864119 [place] [address] 11-20-2023 14:46-0400 Body temperature 97.3 [degF] Dr. Hilton Doty Work Phone: [facility] 11-20-2023 14:46-0400 Body weight 87.[address] Hilton Doty Work Phone: [facility] 11-20-2023 14:46-0400 Heart rate 77 /min Dr. Hilton Doty Work Phone: [facility] 11-20-2023 14:46-0400 Respiratory rate 16 /min Dr. Hilton Doty Work Phone: [facility] 11-20-2023 14:46-0400 SaO2% (BldA) [Mass fraction] 99 % Dr. Hilton Doty Work Phone: 7(387)270-898019 [place] [address] 10-21-2023 18:33-0400 Body temperature 97 [degF] Hilton Doty DO Work Phone: [facility] 10-21-2023 18:33-0400 Body weight 89.81 kg Hilton Doty DO Work Phone: [facility] 10-21-2023 18:33-0400 Diastolic blood pressure 80 mm[Hg] Hilton Doty DO Work Phone: [facility] 10-21-2023 18:33-0400 Heart rate 80 /min Hilton Doty DO Work Phone: [facility] 10-21-2023 18:33-0400 Respiratory rate 16 /min Hilton Doty DO Work Phone: [facility] 10-21-2023 18:33-0400 Systolic blood pressure 120 mm[Hg] Hilton Vásquezon DO Work Phone: 6(581)662-795210 [place] [address] 10-14-2023 10:16-0400 Body mass index (BMI) [Ratio] 31.1 kg/m2 Dr. Hilton Doty Work Phone: 3(186)343-015519 [place] [address] 10-14-2023 10:16-0400 Body weight 90.[address] Hilton Doty Work Phone: 4(290)513-147187 [place] [address] 10-14-2023 10:16-0400 Diastolic blood pressure 77 mm[Hg] Dr. Hilton Doty Work Phone: 6(583)285-973987 [place] [address] 10-14-2023 10:16-0400 Systolic blood pressure 121 mm[Hg] Dr. Hilton Doty Work Phone: 8(607)167-001419 [place] [address] 09-29-2023 12:03-0500 Body temperature 97.7 [degF] Dr. Hilton Doty Work Phone: 7(196)679-040387 [place] [address] 09-29-2023 12:03-0500 Diastolic blood pressure 72 mm[Hg] Dr. Hilton Doty Work Phone: 4(958)365-834887 [place] [address] 09-29-2023 12:03-0500 Heart rate 56 /min Dr. Hilton Doty Work Phone: 9(436)620-598687 [place] [address] 09-29-2023 12:03-0500 Respiratory rate 16 /min Dr. Hilton Doty Work Phone: 4(019)332-287087 [place] [address] 09-29-2023 12:03-0500 SaO2% (BldA) [Mass fraction] 97 % Dr. Hilton Doty Work Phone: 8(272)083-440287 [place] [address] 09-29-2023 12:03-0500 Systolic blood pressure 102 mm[Hg] Dr. Hilton Doty Work Phone: 0(033)244-928887 [place] [address] 09-29-2023 08:42-0500 Body mass index (BMI) [Ratio] 31.6 kg/m2 Dr. Hilton Doty Work Phone: 1(486)079-727187 [place] [address] 09-29-2023 08:42-0500 Body weight 88.[address] Hilton Doty Work Phone: 1(893)682-216387 [place] [address] 09-26-2023 13:20-0500 Body mass index (BMI) [Ratio] 30.2 kg/m2 Dr. Hilton Doty Work Phone: 1(492)845-257887 [place] [address] 09-26-2023 13:20-0500 Body temperature 98.2 [degF] Dr. Hilton Doty Work Phone: 9(980)690-482487 [place] [address] 09-26-2023 13:20-0500 Body weight 87.[address] Hilton Doty Work Phone: 9(689)944-548987 [place] [address] 09-26-2023 13:20-0500 Diastolic blood pressure 62 mm[Hg] Dr. Hilton Doty Work Phone: 5(735)955-823587 [place] [address] 09-26-2023 13:20-0500 Heart rate 82 /min Dr. Hilton oDty Work Phone: 4(162)724-708287 [place] [address] 09-26-2023 13:20-0500 Respiratory rate 16 /min Dr. Hilton Doty Work Phone: 1(430)502-341887 [place] [address] 09-26-2023 13:20-0500 SaO2% (BldA) [Mass fraction] 97 % Dr. Hilton Doty Work Phone: 6(525)618-693187 [place] [address] 09-26-2023 13:20-0500 Systolic blood pressure 100 mm[Hg] Dr. Hilton Doty Work Phone: 7(338)588-167187 [place] [address] 09-24-2023 08:32-0500 Body mass index (BMI) [Ratio] 30.5 kg/m2 Dr. Hilton Doty Work Phone: 5(231)296-554087 [place] [address] 09-24-2023 08:32-0500 Body weight 88.[address] Hilton Doty Work Phone: 8(610)975-917087 [place] [address] 09-24-2023 08:32-0500 Diastolic blood pressure 71 mm[Hg] Dr. Hilton Doty Work Phone: 3(183)210-762187 [place] [address] 09-24-2023 08:32-0500 Systolic blood pressure 114 mm[Hg] Dr. Hilton Doty Work Phone: 4(745)666-052187 [place] [address] 09-14-2023 13:33-0500 Body height 170.[address] Hilton Doty Work Phone: 2(226)261-889387 [place] [address] 09-14-2023 13:33-0500 Body mass index (BMI) [Ratio] 31.2 kg/m2 Dr. Hilton Doty Work Phone: 8(323)625-502787 [place] [address] 09-14-2023 13:33-0500 Body weight 90.[address] Hilton Doty Work Phone: 3(546)199-705487 [place] [address] 09-14-2023 13:33-0500 Diastolic blood pressure 85 mm[Hg] Dr. Hilton Doty Work Phone: 7(146)434-752387 [place] [address] 09-14-2023 13:33-0500 Systolic blood pressure 131 mm[Hg] Dr. Hilton Doty Work Phone: 8(509)042-137187 [place] [address] 08-12-2023 13:06-0500 Body height 170.[address] Hilton Doty Work Phone: 5(837)142-823687 [place] [address] 08-12-2023 13:06-0500 Body mass index (BMI) [Ratio] 31 kg/m2 Dr. Hilton Doty Work Phone: 0(670)650-035087 [place] [address] 08-12-2023 13:06-0500 Body weight 89.[address] Hilton Doty Work Phone: 4(710)201-834687 [place] [address] 08-12-2023 13:06-0500 Diastolic blood pressure 70 mm[Hg] Dr. Hilton Doty Work Phone: 9(269)631-591187 [place] [address] 08-12-2023 13:06-0500 Systolic blood pressure 130 mm[Hg] Dr. Hilton Doty Work Phone: 8(355)891-589987 [place] [address] 06-11-2023 11:53-0500 Body height 170.[address] Hilton Doty Work Phone: 0(317)333-877487 [place] [address] 06-11-2023 11:37-0500 Body mass index (BMI) [Ratio] 30.9 kg/m2 Dr. Hilton Doty Work Phone: 5(966)708-230487 [place] [address] 06-11-2023 11:37-0500 Body weight 89.[address] Hilton Doty Work Phone: 9(977)744-314987 [place] [address] 06-11-2023 11:37-0500 Diastolic blood pressure 74 mm[Hg] Dr. Hilton Doty Work Phone: 6(477)216-366487 [place] [address] 06-11-2023 11:37-0500 Systolic blood pressure 122 mm[Hg] Dr. Hilton Doty Work Phone: 3(550)317-420787 [place] [address] 06-03-2023 17:55-0400 Body temperature 98.4 [degF] Hilton Doty DO Work Phone: 2(822)200-185583 [place] [address] 06-03-2023 17:55-0400 Body weight 90.72 kg Hilton Doty DO Work Phone: 1(502)459-232410 [place] [address] 06-03-2023 17:55-0400 Diastolic blood pressure 80 mm[Hg] Hilton Doty DO Work Phone: 9(248)608-201210 [place] [address] 06-03-2023 17:55-0400 Heart rate 64 /min Hilton Doty DO Work Phone: 6(459)661-989610 [place] [address] 06-03-2023 17:55-0400 Respiratory rate 16 /min Hilton Doty DO Work Phone: [facility] 06-03-2023 17:55-0400 Systolic blood pressure 120 mm[Hg] Hilton Doty DO Work Phone: [facility] 03-02-2023 14:20-0400 Body temperature 97.9 [degF] Hilton Doty DO Work Phone: [facility] 03-02-2023 14:20-0400 Body weight 88.91 kg Hilton Doty DO Work Phone: [facility] 03-02-2023 14:20-0400 Diastolic blood pressure 70 mm[Hg] Hilton Doty DO Work Phone: [facility] 03-02-2023 14:20-0400 Heart rate 76 /min Hilton Doty DO Work Phone: [facility] 03-02-2023 14:20-0400 Respiratory rate 12 /min Hilton Doty DO Work Phone: [facility] 03-02-2023 14:20-0400 Systolic blood pressure 120 mm[Hg] Hilton Doty DO Work Phone: [facility] 11-24-2022 14:00-0400 Body temperature 98.01 [degF] Hilton Doty DO Work Phone: [facility] 11-24-2022 14:00-0400 Body weight 90.27 kg Hilton Doty DO Work Phone: [facility] 11-24-2022 14:00-0400 Diastolic blood pressure 74 mm[Hg] Hilton Doty DO Work Phone: [facility] 11-24-2022 14:00-0400 Heart rate 64 /min Hilton Doty DO Work Phone: [facility] 11-24-2022 14:00-0400 Respiratory rate 16 /min Hilton Doty DO Work Phone: [facility] 11-24-2022 14:00-0400 Systolic blood pressure 130 mm[Hg] Hilton Doty DO Work Phone: [facility] 10-24-2022 11:05-0400 Body temperature 97 [degF] Hilton Doty DO Work Phone: [facility] 10-24-2022 11:05-0400 Body weight 88.91 kg Hilton Doty DO Work Phone: [facility] 10-24-2022 11:05-0400 Diastolic blood pressure 80 mm[Hg] Hilton Doty DO Work Phone: [facility] 10-24-2022 11:05-0400 Heart rate 72 /min Hilton Doty DO Work Phone: [facility] 10-24-2022 11:05-0400 Respiratory rate 16 /min Hilton Doty DO Work Phone: [facility] 10-24-2022 11:05-0400 Systolic blood pressure 136 mm[Hg] Hilton Doty DO Work Phone: [facility] 08-28-2022 11:15-0500 Body height 170.2 cm Priscilla Junior MD Work Phone: [facility] 08-28-2022 11:15-0500 Body temperature 97.59 [degF] Priscilla Junior MD Work Phone: [facility] 08-28-2022 11:15-0500 Body weight 88 kg Priscilla Junior MD Work Phone: [facility] 08-28-2022 11:15-0500 Diastolic blood pressure 75 mm[Hg] Priscilla Junior MD Work Phone: [facility] 08-28-2022 11:15-0500 Heart rate 61 /min Priscilla Junior MD Work Phone: [facility] 08-28-2022 11:15-0500 Systolic blood pressure 118 mm[Hg] Priscilla Junior MD Work Phone: [facility] 07-23-2022 18:41-0500 Body temperature 97.59 [degF] Hilton Doty DO Work Phone: [facility] 07-23-2022 18:41-0500 Body weight 87.54 kg Hilton Doty DO Work Phone: [facility] 07-23-2022 18:41-0500 Diastolic blood pressure 80 mm[Hg] Hilton Doty DO Work Phone: [facility] 07-23-2022 18:41-0500 Heart rate 76 /min Hilton Doty DO Work Phone: [facility] 07-23-2022 18:41-0500 Respiratory rate 12 /min Hilton Doty DO Work Phone: [facility] 07-23-2022 18:41-0500 Systolic blood pressure 120 mm[Hg] Hilton Doty DO Work Phone: [facility] 04-23-2022 17:44-0400 Body temperature 97.3 [degF] Hilton Doty DO Work Phone: [facility] 04-23-2022 17:44-0400 Body weight 86.64 kg Hilton Doty DO Work Phone: [facility] 04-23-2022 17:44-0400 Diastolic blood pressure 70 mm[Hg] Hilton Doty DO Work Phone: [facility] 04-23-2022 17:44-0400 Heart rate 76 /min Hilton Doty DO Work Phone: [facility] 04-23-2022 17:44-0400 Respiratory rate 16 /min Hilton Doty DO Work Phone: [facility] 04-23-2022 17:44-0400 Systolic blood pressure 120 mm[Hg] Hilton Doty DO Work Phone: [facility] 02-12-2022 16:06-0400 Body height 168.9 cm Delphine Floyd APRN.VEGETABLE VENDOR Work Phone: [facility] 02-12-2022 16:06-0400 Body weight 89.72 kg Delphine Floyd MEDICAL ATTENDANT.VEGETABLE VENDOR Work Phone: [facility] 02-12-2022 16:06-0400 Diastolic blood pressure 70 mm[Hg] Delphine Floyd APRN.VEGETABLE VENDOR Work Phone: [facility] 02-12-2022 16:06-0400 Systolic blood pressure 112 mm[Hg] Delphine Floyd APRN.VEGETABLE VENDOR Work Phone: [facility] 01-20-2022 08:50-0400 Body temperature 97.7 [degF] Hilton Doty DO Work Phone: [facility] 01-20-2022 08:50-0400 Body weight 89.81 kg Hilton Doty DO Work Phone: [facility] 01-20-2022 08:50-0400 Diastolic blood pressure 70 mm[Hg] Hilton Doty DO Work Phone: [facility] 01-20-2022 08:50-0400 Heart rate 80 /min Hilton Doty DO Work Phone: [facility] 01-20-2022 08:50-0400 Respiratory rate 16 /min Hilton Doty DO Work Phone: [facility] 01-20-2022 08:50-0400 Systolic blood pressure 110 mm[Hg] Hilton Doty DO Work Phone: [facility] Encounters Encounter Date Encounter Type Care Provider Facility Start: 01-13-2025 End: 01-13-2025 Patient encounter procedure Laura CEE -[facility] Work Phone: Start: 01-13-2025 End: 01-13-[address] Hilton Doty DO Work Phone: [facility] Work Phone: Start: 01-12-[address] Kay Khan MD -Laboratory Work Phone: Start: 01-12-2025 ambulatory Kay Khan Facility:[facility] Start: 01-10-2025 ambulatory Laura Rai Facility:[facility] Start: 01-10-2025 Non-patient / Non-visit Dr. Derek bosch MD -[facility] Start: 01-10-2025 End: 01-10-2025 Admission to same day surgery center Dr. Derek Barone MD -Senior Information Systems Architect/Special Procedures Work Phone: Start: 01-10-2025 End: 01-10-[address] Hilton Doty DO Work Phone: [facility] Work Phone: Start: 01-02-[address] Tameka Doty DO -Nutritional Services Work Phone: Start: 01-02-2025 ambulatory Hilton Hawkins y:[facility] Start: 12-30-2024 ambulatory Laura Rai Facility:[facility] Start: 12-30-2024 Non-patient / Non-visit Dr. Derek bosch MD -[facility] Start: 12-30-2024 End: 12-30-2024 Patient encounter procedure Laura Rai [place] -Cardiovascular Services Work Phone: Start: 12-30-2024 End: 12-30-2024 ambulatory Laura Rai Facility:[facility] Start: 12-19-2024 End: 12-19-[address] Derek Barone MD -[facility] Work Phone: Start: 12-19-2024 End: 12-19-[address] Hilton Doty DO Work Phone: [facility] Work Phone: Start: 12-12-2024 End: 12-12-[address] Hilton Doty DO Work Phone: [facility] Work Phone: Start: 12-12-2024 End: 12-12-[address] Priscilla Mart DO -Laboratory Specimen Work Phone: Start: 12-12-2024 End: 12-12-[address] Priscilla Mart DO -[facility] Work Phone: Start: 12-12-2024 End: 12-12-[address] Priscilla Mart DO [facility] Start: 12-12-2024 End: 12-12-2024 ambulatory Hilton Doty Facility:[facility] Start: 12-12-2024 End: 12-12-2024 ambulatory Priscilla Mart Facility:[facility] Start: 11-28-2024 End: 11-30-2024 ambulatory Hilton Doty Facility:[facility] Start: 11-28-2024 End: 11-30-[address] Hilton Doty DO -Nutritional Services Work Phone: Start: 11-19-2024 ambulatory Hilton Doty Facilit y:[facility] Start: 11-17-2024 End: 11-17-2024 Telephone encounter Hilton Doty DO Work Phone: [facility] [place] Comment on above: Insurance Authorizat ion Start: 11-16-2024 End: 11-16-2024 Patient encounter procedure Hilton Doty DO Work Phone: [facility] [place] Comment on above: LIVIA (generalized anx iety disorder) (Primary Dx); Obesity, Class I, BMI 30-34.9; Inflammatory polyarthropathy (HCC); Dyslipidemia; Inflammatory arthritis; Perimenopausal symptoms; SOB (shortness of breath); Varicose veins of both lower extremities with complications Start: 11-16-2024 End: 11-16-2024 ambulatory HILTON DOTY Facility:[facility] Start: 11-11-2024 End: 11-11-2024 Telephone encounter Hilton Doty DO Work Phone: Podiatry Comment on above: Results (CT Chest) Start: 11-10-2024 End: 11-10-[address] Hilton Doty DO Work Phone: [facility] Work Phone: Start: 11-10-2024 End: 11-10-[address] Hilton Doty DO -Pulmonary Services/Neurology Work Phone: Start: 11-10-2024 End: 11-10-2024 ambulatory Hilton Doty Facility:[facility] Start: 11-02-2024 End: 11-02-2024 Patient encounter procedure Laura CEE -[facility] Work Phone: Start: 11-02-2024 End: 11-02-2024 ambulatory Laura Rai Facility:[facility] Start: 10-28-2024 End: 11-04-2024 Telephone encounter Hilton Doty DO Work Phone: [facility] [place] Comment on above: Insurance Authorizat ion Start: 10-26-2024 End: 10-26-2024 Patient encounter procedure Hilton Doty DO Work Phone: [facility] [place] Comment on above: SOB (shortness of br eath) (Primary Dx); Wheezing; Hypokalemia; Varicose veins of both lower extremities with complications; LIVIA (generalized anxiety disorder); Perimenopausal symptoms; Inflammatory arthritis; Dyslipidemia; Inflammatory polyarthropathy (HCC); Fatigue, unspecified type; Vitamin D deficiency; Rosacea; Raynaud's phenomenon without gangrene Start: 10-26-2024 End: 10-26-2024 ambulatory HILTON DOTY Facility:[facility] Start: 10-26-2024 Non-patient / Non-visit Dr. Kong [facility] Start: 10-26-2024 End: 10-26-[address] Hilton Doty DO Work Phone: [facility] Work Phone: Start: 10-26-2024 End: 10-26-2024 Patient encounter procedure Rajinder Hinton LEVELER-C -Cardiovascular Services Work Phone: Start: 10-26-2024 End: 10-26-2024 ambulatory Rajinder Hinton Facility:[facility] Start: 10-17-2024 End: 10-17-2024 Telephone encounter Rajinder Hinton APRNChekoVEGETABLE VENDOR Work Phone: [facility] Comment on above: Results Start: 10-14-2024 End: 10-17-2024 Telephone encounter Rajinder Hinton APRN.VEGETABLE VENDOR Work Phone: [facility] Comment on above: Patient Question Start: 10-14-2024 End: 10-14-2024 Patient encounter procedure Rajinder Hinton APRN.VEGETABLE VENDOR Work Phone: [facility] Comment on above: Bilateral leg edema (Primary Dx); SOB (shortness of breath); Obesity, Class I, BMI 30-34.9 Start: 10-14-2024 End: 10-14-2024 ambulatory HILTON DOTY Facility:[facility] Start: 10-14-2024 Non-patient / Non-visit Dr. Derek bosch MD -[facility] Start: 10-14-2024 End: 10-14-[address] Hilton Doty DO Work Phone: [facility] Work Phone: Start: 10-14-2024 End: 10-14-2024 Patient encounter procedure Laura CEE -Cardiovascular Services Work Phone: Start: 10-13-2024 End: 10-13-2024 Emergency department patient visit Dr. Hilton Doty DO Work Phone: -Emergency Department Work Phone: Start: 10-13-2024 End: 10-14-2024 ambulatory Hilton Doty DO Work Phone: [facility] Comment on above: Shortness of Breath Start: 10-07-2024 End: 10-20-2024 Refill Hilton Doty DO Work Phone: [facility] Comment on above: Refill Request Results Start: 10-03-2024 ambulatory Nilda Loya NP Facil ity:[facility] Start: 09-26-2024 End: 09-26-[address] Hilton Doty DO Work Phone: [facility] Work Phone: Start: 09-26-2024 End: 09-26-2024 Patient encounter procedure Nilda Loya LEVELER-C -Outpatient Breast Imaging Work Phone: Start: 09-26-2024 End: 09-26-2024 ambulatory Nilda Loya NP Facility:[facility] Start: 09-22-2024 End: 09-22-[address] Hilton Doty DO -Laboratory Work Phone: Start: 09-22-2024 End: 09-22-2024 Telephone encounter Hilton Doty DO Work Phone: [facility] [place] Comment on above: Orders Start: 09-21-2024 End: 09-22-2024 ambulatory Hilton Doty Facility:[facility] Start: 09-21-2024 Non-patient / Non-visit Dr. Derek bosch MD -[facility] Start: 09-21-2024 End: 09-21-2024 Patient encounter procedure Laura CEE -Cardiovascular Services Work Phone: Start: 09-21-2024 End: 09-21-2024 ambulatory Laura Rai Facility:[facility] Start: 09-08-2024 End: 09-08-2024 Patient encounter procedure Laura CEE -[facility] Work Phone: Start: 09-08-2024 End: 09-08-2024 ambulatory Laura Rai Facility:[facility] Start: 08-08-2024 End: 08-08-2024 Telephone encounter Hilton Doty DO Work Phone: [facility] [place] Comment on above: fax [facility] referral to [facility] Start: 08-01-2024 End: 08-01-2024 Patient encounter procedure Hilton Doty DO Work Phone: [facility] [place] Comment on above: Varicose veins of vinnie th lower extremities with complications (Primary Dx); Hypokalemia; LIVIA (generalized anxiety disorder); Situational depression; Obesity, Class I, BMI 30-34.9; Inflammatory polyarthropathy (HCC); Dyslipidemia; Inflammatory arthritis; Perimenopausal symptoms Start: 08-01-2024 End: 08-01-2024 ambulatory HILTON DOTY Facility:[facility] Start: 07-01-2024 End: 07-01-2024 Refill Anna Sheikh VEGETABLE VENDOR Work Phone: [facility] [place] Comment on above: Refill Request Start: 05-26-2024 End: 05-26-2024 ambulatory Randy CEE Facility:[facility] Start: 05-12-2024 End: 05-19-2024 Telephone encounter Hilton Vásquezon DO Work Phone: [facility] [place] Comment on above: Patient Question Start: 05-11-2024 End: 05-16-2024 ambulatory Hilton Yunrison DO Work Phone: [facility] [place] Comment on above: Last appt Start: 04-30-2024 End: 04-30-2024 ambulatory Hilton Doty Facility:[facility] Start: 04-27-2024 End: 04-27-2024 Telephone encounter Hilton Yunrison DO Work Phone: [facility] [place] Comment on above: Results Start: 04-25-2024 End: 04-26-2024 ambulatory HILTON YUNRISON Facility:[facility] Start: 04-25-2024 End: 04-25-2024 Patient encounter procedure Hilton Yunrison DO Work Phone: [facility] [place] Comment on above: Nausea (Primary Dx); SOB (shortness of breath); Hypokalemia; Fatigue, unspecified type; Inflammatory arthritis; Bilateral leg edema; Situational depression; Obesity, Class I, BMI 30-34.9; Inflammatory polyarthropathy (HCC); Dyslipidemia Start: 04-04-2024 End: 04-04-2024 Emergency department patient visit Hilton Doty Facility:[facility] Start: 04-01-2024 End: 04-01-2024 Refill Hilton Yunrison DO Work Phone: [facility] Comment on above: Refill Request Start: 03-17-2024 Refill Hilton Yunri son DO Work Phone: [facility] Comment on above: Refill Request Start: 02-11-2024 ambulatory Hilton Doty Facilit y:[facility] Start: 02-08-2024 End: 02-08-2024 Subsequent hospital visit by physician X[facility] Work Phone: Radiology Comment on above: Lower thoracic back pain [M54.6] Start: 02-08-2024 End: 02-08-2024 ambulatory DORIS DRISCOLL Facility:[facility] Start: 02-08-2024 End: 02-08-2024 Office outpatient visit 15 minutes Doris Driscoll MEDICAL ATTENDANT.CAR GREASER Work Phone: [facility] Comment on above: Lower thoracic back pain (Primary Dx); Acute low back pain with sciatica, sciatica laterality unspecified, unspecified back pain laterality Start: 02-05-2024 End: 02-05-2024 Emergency department patient visit Hilton Doty Facility:[facility] Start: 01-20-2024 End: 01-20-2024 Patient encounter procedure Hilton Doty DO Work Phone: [facility] Comment on above: Dyslipidemia (Primar y Dx); LIVIA (generalized anxiety disorder); Inflammatory polyarthropathy (HCC); Obesity, Class I, BMI 30-34.9; Bilateral leg edema; Vitamin D deficiency; Situational depression Start: 01-20-2024 End: 01-20-2024 ambulatory HILTON DOTY Facility:[facility] Start: 12-30-2023 Refill Hilton finley DO Work Phone: [facility] Comment on above: Refill Request Start: 11-25-2023 End: 12-01-[address] Hilton Doty Work Phone: [facility] Work Phone: Start: 11-25-2023 End: 12-01-[address] Hilton Doty Work Phone: [facility]-Nutritional Services Work Phone: Start: 11-20-2023 End: 11-20-[address] Hilton Doty Work Phone: [facility] Work Phone: Start: 10-22-2023 Patient Msg [facility] Provider [facility] [place] Comment on above: Orders Start: 10-21-2023 End: 10-21-2023 Patient encounter procedure Hilton Doty DO Work Phone: [facility] Comment on above: Inflammatory polyart hropathy (HCC) (Primary Dx); Abnormal mammogram of right breast; Obesity, Class I, BMI 30-34.9; Inflammatory arthritis; Dyslipidemia; LIVIA (generalized anxiety disorder); Raynaud's phenomenon without gangrene; Vitamin D deficiency; Rosacea Start: 10-21-2023 Telephone encounter Hilton nunez DO Work Phone: [facility] Start: 10-14-2023 End: 10-14-[address] Hilton Doty Work Phone: [facility] Work Phone: Start: 10-05-2023 Telephone encounter Ale Mancia MD Work Phone: Rheumatology Comment on above: Patient Question Start: 09-29-2023 Non-patient / Non-visit Dr. Melissa Doty Work Phone: [facility] Start: 09-29-2023 End: 09-29-2023 Admission to same day surgery center Dr[facility] Hilton Doty [facility] Start: 09-26-2023 End: 09-26-[address] Hilton Doty Work Phone: [facility] Work Phone: Start: 09-24-2023 End: 09-24-[address] Hilton Doty Work Phone: [facility] Work Phone: Start: 09-15-2023 Chart abstracting Leo helton APRN.CNP Work Phone: Rheumatology Comment on above: Abstract (PLQ eye ex am ) Start: 09-14-2023 End: 09-14-[address] Hilton Doty Work Phone: [facility] Work Phone: Start: 09-14-2023 End: 09-14-[address] Hilton Doty Work Phone: [facility]-Laboratory, Specimen Work Phone: Start: 09-14-2023 Telephone encounter Ale Mancia MD Work Phone: Rheumatology Comment on above: Patient Question; Jaye hyde Update Patient Question Start: 09-14-2023 End: 09-14-[address] Hilton Doty Work Phone: [facility] Work Phone: Start: 09-03-2023 Chart abstracting Leo helton APRN.CNP Work Phone: Rheumatology Comment on above: Abstract (Outside la b results ) Start: 09-02-2023 End: 09-02-[address] Hilton Doty Work Phone: [facility] Work Phone: Start: 09-02-2023 End: 09-02-[address] [facility] Start: 08-12-2023 End: 08-12-[address] Hilton Doty Work Phone: [facility] Work Phone: Start: 08-12-2023 End: 08-12-[address] Hilton Dot[facility] Work Phone: Start: 08-12-2023 End: 08-12-[address] Hilton Doty Work Phone: [facility] Work Phone: Start: 07-10-2023 Refill Priscilla Junior MD Work Phone: Rheumatology Comment on above: Refill Request Start: 07-09-2023 End: 07-09-[address] Hilton Doty Work Phone: [facility] Work Phone: Start: 07-09-2023 End: 07-09-[address] Hilton Doty Work Phone: [facility]-Ultrasound, [facility] Work Phone: Start: 06-15-2023 Telephone encounter Hilton nunez DO Work Phone: [facility] Comment on above: Results Start: 06-11-2023 End: 06-11-[address] Hilton Doty Work Phone: [facility] Work Phone: Start: 06-11-2023 End: 06-11-[address] Hilton Doty Work Phone: [facility] Work Phone: Start: 06-11-2023 End: 06-11-[address] Hilton Doty Work Phone: [facility]-Outpatient [facility] Ultrasound Work Phone: Start: 06-09-2023 End: 06-09-[address] Hilton Doty Work Phone: [facility] Work Phone: Start: 06-09-2023 End: 06-09-[address] Hilton Doty Work Phone: [facility]-Outpatient Breast Imaging Work Phone: Start: 06-03-2023 End: 06-03-2023 Patient encounter procedure Hilton Doty DO Work Phone: [facility] Comment on above: LIVIA (generalized anx iety disorder) (Primary Dx); Bilateral leg edema; Need for influenza vaccination; Inflammatory polyarthropathy (HCC); Obesity, Class III, BMI 40-49.9 (morbid obesity) (HCC); Situational depression; Encounter for screening mammogram for malignant neoplasm of breast; Dyslipidemia; Obesity, Class I, BMI 30-34.9; Varicose veins of both lower extremities with pain Start: 05-12-[address] Hilton Doty Work Phone: [facility]-Laboratory Work Phone: Start: 05-04-2023 Refill Hilton finley DO Work Phone: [address] [place] [address] Comment on above: Refill Request Start: 04-13-2023 Refill Priscilla Junior MD Work Phone: Rheumatology Comment on above: Refill Request; Allyn ent Update; Patient lost her insurance Start: 04-03-2023 Refill Hilton finley DO Work Phone: [facility] Comment on above: Refill Request Start: 03-02-2023 End: 03-02-2023 Patient encounter procedure Hilton Doty DO Work Phone: [facility] Comment on above: Dyslipidemia (Primar y Dx); Inflammatory polyarthropathy (HCC); Obesity, Class I, BMI 30-34.9; LIVIA (generalized anxiety disorder); Raynaud's phenomenon without gangrene; Bilateral leg edema; Vitamin D deficiency Start: 02-25-[address] Hilton Doty Work Phone: [facility] Start: 02-25-[address] Tameka Doty Work Phone: [facility] Start: 01-27-2023 Telephone encounter Hilton nunez DO Work Phone: [facility] Comment on above: Patient Update; Allyn ent Question Start: 01-06-2023 Refill Priscilla Junior MD Work Phone: Rheumatology Comment on above: Refill Request Start: 12-24-2022 ambulatory Hilton L Garri son DO Work Phone: [facility] [place] Start: 12-01-2022 ambulatory Hilton Don son DO Work Phone: [facility] [place] Comment on above: lab results Start: 12-01-2022 E-mail encounter rachel toledo caregiver Hilton Doty DO Work Phone: [facility] [place] Start: 11-24-2022 End: 11-24-2022 Patient encounter procedure Hilton Doty DO Work Phone: [facility] [place] Comment on above: LIVIA (generalized anx iety disorder) (Primary Dx); Inflammatory polyarthropathy (HCC); Dyslipidemia; Obesity, Class I, BMI 30-34.9; Raynaud's phenomenon without gangrene; Situational depression Start: 10-24-2022 End: 10-24-2022 Patient encounter procedure Hilton Doty DO Work Phone: [facility] [place] Comment on above: Dyslipidemia (Primar y Dx); Inflammatory polyarthropathy (HCC); Obesity, Class I, BMI 30-34.9; Hot flashes; Bilateral leg edema Start: 10-08-2022 Telephone encounter Hilton nunez DO Work Phone: [facility] [place] Comment on above: Appointment Start: 09-12-2022 ambulatory Priscilla Junior MD Work Phone: Rheumatology Comment on above: Lab results Start: 09-12-2022 E-mail encounter rachel toledo caregiver Priscilla Junior MD Work Phone: [facility] Start: 08-28-2022 End: 08-28-2022 Patient encounter procedure Priscilla Junior MD Work Phone: Rheumatology Comment on above: 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); Inflammatory arthritis; Encounter for long-term (current) use of medications; Facial rash; Sicca syndrome (HCC) Start: 07-29-2022 Telephone encounter Hilton nunez DO Work Phone: [facility] [place] Comment on above: Medication Problem Start: 07-28-2022 ambulatory Hilton L Garri son DO Work Phone: [facility] [place] Start: 07-28-2022 Follow-up encounter Hilton nunez DO Work Phone: [facility] [place] Comment on above: Regarding vargheseymjah toledo follow up visit Start: 07-23-2022 End: 07-23-2022 Patient encounter procedure Hilton Doty DO Work Phone: [facility] [place] Comment on above: Dyslipidemia (Primar y Dx); LIVIA (generalized anxiety disorder); Inflammatory polyarthropathy (HCC); Obesity, Class I, BMI 30-34.9; Rosacea; Bilateral leg edema Start: 06-25-2022 Chart abstracting Leo helton APRN.VEGETABLE VENDOR Work Phone: Rheumatology Comment on above: Abstract (PLQ eye ex am 05/20/2022) Start: 05-19-2022 Refill Hilton finley DO Work Phone: [facility] Comment on above: Refill Request Start: 04-23-2022 End: 04-23-2022 Patient encounter procedure Hilton Doty DO Work Phone: [facility] Comment on above: LIVIA (generalized anx iety disorder) (Primary Dx); Obesity, Class III, BMI 40-49.9 (morbid obesity) (HCC); Inflammatory polyarthropathy (HCC) Start: 02-12-2022 End: 02-12-2022 Patient encounter procedure Delphine Floyd APRN.VEGETABLE VENDOR Work Phone: OB/Gynecology Comment on above: Encounter for gyneco logical examination with abnormal finding (Primary Dx); Pain due to intrauterine contraceptive device (IUD), initial encounter (HCC); Postcoital bleeding; Vaginal discharge Start: 02-12-2022 End: 02-12-2022 Patient encounter status Delphine Floyd APRN.VEGETABLE VENDOR Work Phone: OB/Gynecology Start: 02-01-2022 Refill Hilton finley DO Work Phone: [facility] Start: 01-20-2022 End: 01-20-2022 Patient encounter procedure Hilton Doty DO Work Phone: [facility] [place] Comment on above: Dyslipidemia (Primar y Dx); Encounter for screening mammogram for malignant neoplasm of breast; LIVIA (generalized anxiety disorder); Eczematous dermatitis of upper eyelids of both eyes; Inflammatory polyarthropathy (HCC); Bilateral leg edema; Obesity, Class I, BMI 30-34.9 Start: 01-06-2022 Telephone encounter Hilton nunez DO Work Phone: [facility] Comment on above: Medication Problem Start: 12-20-2021 Refill Anna hinojosa APRN.CNP Work Phone: [facility] [place] Comment on above: Refill Request Start: 12-13-2021 Telephone encounter Ale Mancia MD Work Phone: Rheumatology Comment on above: Medication Question Procedures Date Procedure Procedure Detail Performing Clinician Start: 01-10-[address] Hilton Doty DO Work Phone: Start: 12-12-2024 Liquid based cervica l cytology [...] Start: 10-13-[address] Hilton oDty DO Work Phone: Start: 09-26-2024 Screening mammography Leon Doty DO Work Phone: Start: 09-22-[address] Measurement of renal function [address] Hilton Doty DO Work Phone: Comment on above: GFR Calc Start: 02-08-2024 Radex spine lumbosac ral 2/3 views Doris Driscoll MEDICAL ATTENDANT.VEGETABLE VENDOR Work Phone: Start: 07-09-[address] [...] Author Start: 01-04-2026 HPV TESTING HPV TESTING [facility] Start: 01-04-2026 PAP TESTING PAP TESTING [facility] Start: 01-04-2026 Screening for malignant neoplasm of cervix [facility] Start: 01-25-2025 ambulatory Ambulatory Facility:[facility] Start: 01-24-2025 Urine microalbumin profile [facility] Start: 01-11-2025 Patient discharge [facility] Start: 11-16-2024 End: 11-16-2024 Patient encounter procedure 11/16/2024 7:00 PM EDT Office Visit [facility] [place] [address] [place] [address] Hilton Doty, DO [address] [place] [address] Follow up [facility] Comment on above: Follow up Start: 10-26-2024 End: 10-26-2024 Patient encounter procedure 10/26/2024 6:20 PM EDT Office Visit [facility] [place] [address] [place] [address] Hilton Doty, DO [address] [place] [address] 3 month follow up [facility] Comment on above: 3 month follow up Start: 10-26-2024 End: 01-25-2025 25-hydroxyvitamin D3 [Mass/volume] in Serum or Plasma VITAMIN D 25 HYDROXY Lab Routine Vitamin D deficiency Expected: 10/26/2024, Expires: 01/25/2025 [facility] Comment on above: Expected: 10/26/2024, Expires: Start: 10-26-2024 End: 01-25-2025 C reactive protein [Mass/volume] in Serum or Plasma C-REACTIVE PROTEIN Lab Routine Inflammatory arthritis Inflammatory polyarthropathy (HCC) Expected: 10/26/2024, Expires: 01/25/2025 [facility] Comment on above: Expected: 10/26/2024, Expires: Start: 10-26-2024 End: 01-25-2025 CBC W Auto Differential panel - Blood COMPLETE BLOOD COUNT AND DIFFERENTIAL Lab Routine Perimenopausal symptoms Fatigue, unspecified type Expected: 10/26/2024, Expires: 01/25/2025 [facility] Comment on above: Expected: 10/26/2024, Expires: Start: 10-26-2024 End: 01-25-2025 Cobalamin (Vitamin B12) [Mass/volume] in Serum or Plasma VITAMIN B12 Lab Routine Inflammatory arthritis Inflammatory polyarthropathy (HCC) Fatigue, unspecified type Expected: 10/26/2024, Expires: 01/25/2025 [facility] Comment on above: Expected: 10/26/2024, Expires: Start: 10-26-2024 End: 01-25-2025 Comprehensive metabolic 2000 panel - Serum or Plasma COMPREHENSIVE METABOLIC PANEL Lab Routine Perimenopausal symptoms Fatigue, unspecified type Expected: 10/26/2024, Expires: 01/25/2025 [facility] Comment on above: Expected: 10/26/2024, Expires: Start: 10-26-2024 End: 01-25-2025 Iron and Iron binding capacity panel - Serum or Plasma IRON AND TIBC Lab Routine Perimenopausal symptoms Inflammatory arthritis Raynaud's phenomenon without gangrene Expected: 10/26/2024, Expires: 01/25/2025 [facility] Comment on above: Expected: 10/26/2024, Expires: Start: 10-26-2024 End: 01-25-2025 Thyrotropin [Units/volume] in Serum or Plasma THYROID STIMULATING HORMONE Lab Routine Perimenopausal symptoms Fatigue, unspecified type Expected: 10/26/2024, Expires: 01/25/2025 [facility] Comment on above: Expected: 10/26/2024, Expires: Start: 10-26-2024 End: 01-25-2025 Thyroxine (T4) free [Mass/volume] in Serum or Plasma T4 FREE/FREE THYROXINE Lab Routine Perimenopausal symptoms Fatigue, unspecified type Expected: 10/26/2024, Expires: 01/25/2025 [facility] Comment on above: Expected: 10/26/2024, Expires: Start: 10-14-2024 End: 01-13-2025 Natriuretic peptide.B prohormone N-Terminal [Mass/volume] in Serum or Plasma NT PRO BNP Lab Routine Bilateral leg edema Expected: 10/14/2024, Expires: 01/13/2025 [facility] Work Phone: Comment on above: Expected: 10/14/2024, Expires: Start: 10-13-2024 [facility] Start: 10-13-2024 [facility] Start: 08-01-2024 End: 10-31-2024 C reactive protein [Mass/volume] in Serum or Plasma C-REACTIVE PROTEIN Lab Routine Inflammatory polyarthropathy (HCC) Expected: 08/01/2024, Expires: 10/31/2024 [facility] Comment on above: Expected: 08/01/2024, Expires: Start: 08-01-2024 End: 10-31-2024 CBC W Auto Differential panel - Blood COMPLETE BLOOD COUNT AND DIFFERENTIAL Lab Routine Hypokalemia Expected: 08/01/2024, Expires: 10/31/2024 [facility] Comment on above: Expected: 08/01/2024, Expires: Start: 08-01-2024 End: 10-31-2024 Comprehensive metabolic 2000 panel - Serum or Plasma COMPREHENSIVE METABOLIC PANEL Lab Routine Hypokalemia Expected: 08/01/2024, Expires: 10/31/2024 [facility] Work Phone: Comment on above: Expected: 08/01/2024, Expires: Start: 08-01-2024 End: 10-31-2024 Thyrotropin [Units/volume] in Serum or Plasma THYROID STIMULATING HORMONE Lab Routine Hypokalemia Expected: 08/01/2024, Expires: 10/31/2024 [facility] Comment on above: Expected: 08/01/2024, Expires: Start: 08-01-2024 End: 08-01-2024 Patient encounter procedure 08/01/2024 10:00 AM EST Office Visit [facility] [place] [address] [place] [address] Hilton Doty DO [address] [place] [address] 3 month follow up Family [facility] Comment on above: 3 month follow up Start: 06-03-2024 Covid-19 Vaccine () Covid-19 Vaccine () [facility] Comment on above: Postponed from 04/03/2023 (Declined at t his time) Start: 04-27-2024 End: 07-27-2024 Potassium [Moles/volume] in Serum or Plasma POTASSIUM Lab Routine Hypokalemia Expected: 04/27/2024, Expires: 07/27/2024 [facility] Work Phone: Comment on above: Expected: 04/27/2024, Expires: Start: 04-25-2024 End: 07-25-2024 25-hydroxyvitamin D3 [Mass/volume] in Serum or Plasma VITAMIN D 25 HYDROXY Lab Routine Fatigue, unspecified type Expected: 04/25/2024, Expires: 07/25/2024 [facility] Comment on above: Expected: 04/25/2024, Expires: Start: 04-25-2024 End: 07-25-2024 CBC W Auto Differential panel - Blood COMPLETE BLOOD COUNT AND DIFFERENTIAL Lab Routine SOB (shortness of breath) Expected: 04/25/2024, Expires: 07/25/2024 [facility] Comment on above: Expected: 04/25/2024, Expires: Start: 04-25-2024 End: 07-25-2024 Cobalamin (Vitamin B12) [Mass/volume] in Serum or Plasma VITAMIN B12 Lab Routine Fatigue, unspecified type Expected: 04/25/2024, Expires: 07/25/2024 [facility] Comment on above: Expected: 04/25/2024, Expires: Start: 04-25-2024 End: 07-25-2024 Comprehensive metabolic 2000 panel - Serum or Plasma COMPREHENSIVE METABOLIC PANEL Lab Routine Hypokalemia Expected: 04/25/2024, Expires: 07/25/2024 [facility] Comment on above: Expected: 04/25/2024, Expires: Start: 04-25-2024 End: 07-25-2024 Lipase [Enzymatic activity/volume] in Serum or Plasma LIPASE Lab Routine Nausea Expected: 04/25/2024, Expires: 07/25/2024 [facility] Comment on above: Expected: 04/25/2024, Expires: Start: 04-25-2024 End: 07-25-2024 Thyrotropin [Units/volume] in Serum or Plasma THYROID STIMULATING HORMONE Lab Routine Nausea Expected: 04/25/2024, Expires: 07/25/2024 [facility] Work Phone: Comment on above: Expected: 04/25/2024, Expires: 4 Start: 04-25-2024 End: 04-25-2024 Patient encounter procedure 04/25/2024 10:00 AM EDT Office Visit [facility] [place] [address] [facility], [place] [address] Hilton Doty, DO [address] [facility], [place] [id number] Follow up [facility] [place] Comment on above: Follow up Start: 04-03-2024 Covid-19 Vaccine ( season) Covid-19 Vaccine ( season) [facility] Start: 04-03-2024 Covid-19 Vaccine ( season) Covid-19 Vaccine ( season) [facility] Start: 04-03-2024 Influenza vaccination Influenza Vaccine (#1) [facility] Start: 01-20-2024 End: 01-20-2024 Patient encounter procedure 01/20/2024 6:40 PM EDT Office Visit Family Medicine [place] [address] [place] [address] Hilton Doty, DO [address] [facility] [place], [place] [id number] Follow up [facility] [place] Comment on above: Follow up Start: 09-29-2023 Anesthesia vaginal procedure w/biopsy nos ANESTH VAGINAL PROCEDURES [facility] Start: 09-29-2023 Endometrial abltj thermal w/o hysteroscopic guid ENDOMETR ABLATE THERMAL [facility] Start: 09-29-2023 Patient discharge [facility] Start: 09-29-2023 Procedure discontinued [facility] Start: 09-29-2023 Ambulation without limitation [facility] Start: 09-29-2023 Medical regimen orders management [facility] Start: 09-29-2023 Medication education [facility] Start: 09-29-2023 Taking patient vital signs [facility] Start: 09-29-2023 Vital signs measurements [facility] Start: 09-29-2023 [facility] Start: 08-12-2023 Liquid based cervical cytology screening [facility] Start: 04-03-2023 Influenza vaccination [facility] Start: 01-30-2023 Influenza vaccination INFLUENZA (#1) [facility] Comment on above: Postponed from 04/03/2022 (Declined at t his time) Start: 10-24-2022 End: 12-24-2022 Progesterone [Mass/volume] in Serum or Plasma PROGESTERONE BLD Lab Routine Hot flashes Expected: 10/24/2022, Expires: 12/24/2022 [facility] Work Phone: Comment on above: Expected: 10/24/2022, Expires: 3 Start: 10-24-2022 End: 12-24-2022 TESTOSTERONE, FREE AND TOTAL TESTOSTERONE, FREE AND TOTAL Lab Routine Hot flashes Expected: 10/24/2022, Expires: 12/24/2022 [facility] Work Phone: Comment on above: Expected: 10/24/2022, Expires: 3 Start: 10-24-2022 End: 12-24-2022 Thyrotropin [Units/volume] in Serum or Plasma TSH BLD Lab Routine Hot flashes Expected: 10/24/2022, Expires: 12/24/2022 [facility] Work Phone: Comment on above: Expected: 10/24/2022, Expires: 3 Start: 10-24-2022 End: 12-24-2022 Thyroxine (T4) free [Mass/volume] in Serum or Plasma T4 FREE/FREE THYROX Lab Routine Hot flashes Expected: 10/24/2022, Expires: 12/24/2022 [facility] Work Phone: Comment on above: Expected: 10/24/2022, Expires: 3 Start: 10-24-2022 End: 12-24-2022 Triiodothyronine (T3) Free [Mass/volume] in Serum or Plasma T3 FREE BLD Lab Routine Hot flashes Expected: 10/24/2022, Expires: 12/24/2022 [facility] Work Phone: Comment on above: Expected: 10/24/2022, Expires: 3 Start: 08-28-2022 End: 10-28-2022 Aldolase [Enzymatic activity/volume] in Serum or Plasma ALDOLASE BLD Lab Routine Undifferentiated connective tissue disease (HCC) Expected: 08/28/2022, Expires: 10/28/2022 [facility] Work Phone: Comment on above: Expected: 08/28/2022, Expires: 3 Start: 08-28-2022 End: 10-28-2022 MAXIM BY IFA WITH REFLEX [facility] Work Phone: Comment on above: Expected: 08/28/2022, Expires: 3 Start: 08-28-2022 End: 10-28-2022 C reactive protein [Mass/volume] in Serum or Plasma [facility] Work Phone: Comment on above: Expected: 08/28/2022, Expires: 3 Start: 08-28-2022 End: 10-28-2022 Centromere Ab [Presence] in Serum by Immunofluorescence [facility] Work Phone: Comment on above: Expected: 08/28/2022, Expires: 3 Start: 08-28-2022 End: 10-28-2022 Complement C3 [Mass/volume] in Serum or Plasma [facility] Work Phone: Comment on above: Expected: 08/28/2022, Expires: 3 Start: 08-28-2022 End: 10-28-2022 Complement C4 [Mass/volume] in Serum or Plasma [facility] Work Phone: Comment on above: Expected: 08/28/2022, Expires: 3 Start: 08-28-2022 End: 10-28-2022 Comprehensive metabolic 2000 panel - Serum or Plasma [facility] Work Phone: Comment on above: Expected: 08/28/2022, Expires: 3 Start: 08-28-2022 End: 10-28-2022 Creatine kinase [Enzymatic activity/volume] in Serum or Plasma CK CREATINE KINASE Lab Routine Undifferentiated connective tissue disease (HCC) Expected: 08/28/2022, Expires: 10/28/2022 [facility] Work Phone: Comment on above: Expected: 08/28/2022, Expires: 3 Start: 08-28-2022 End: 10-28-2022 IMMUNOFIXATION SCREEN, SERUM [facility] Work Phone: Comment on above: Expected: 08/28/2022, Expires: 3 Start: 08-28-2022 End: 10-28-2022 ILIR/BIA DIEGO,SER [facility] Work Phone: Comment on above: Expected: 08/28/2022, Expires: 3 Start: 08-28-2022 End: 10-28-2022 Lactate dehydrogenase [Enzymatic activity/volume] in Serum or Plasma LD LACTATE DEHYDRO Lab Routine Undifferentiated connective tissue disease (HCC) Expected: 08/28/2022, Expires: 10/28/2022 [facility] Work Phone: Comment on above: Expected: 08/28/2022, Expires: 3 Start: 08-28-2022 End: 10-28-2022 MONOCLONAL PROT UR W/INTERP [facility] Work Phone: Comment on above: Expected: 08/28/2022, Expires: 3 Start: 08-28-2022 End: 10-28-2022 PM-SCL-100 IgG Ab [Units/volume] in Serum [facility] Work Phone: Comment on above: Expected: 08/28/2022, Expires: 3 Start: 08-28-2022 End: 10-28-2022 POLYMYOSITIS AND DERMATOMYOSITIS PANEL [facility] Work Phone: Comment on above: Expected: 08/28/2022, Expires: 3 Start: 08-28-2022 End: 10-28-2022 PROTEIN ELECT RND UR W/INTERP [facility] Work Phone: Comment on above: Expected: 08/28/2022, Expires: 3 Start: 08-28-2022 End: 10-28-2022 PROTEIN ELECTROPHORESIS SERUM W/INTERP [facility] Work Phone: Comment on above: Expected: 08/28/2022, Expires: 3 Start: 08-28-2022 End: 10-28-2022 Protein/Creatinine [Mass Ratio] in Urine [facility] Work Phone: Comment on above: Expected: 08/28/2022, Expires: 3 Start: 08-28-2022 End: 10-28-2022 Rheumatoid factor [Units/volume] in Serum or Plasma [facility] Work Phone: Comment on above: Expected: 08/28/2022, Expires: 3 Start: 08-28-2022 End: 10-28-2022 RNA POLYMERASE III AB [facility] Work Phone: Comment on above: Expected: 08/28/2022, Expires: 3 Start: 08-28-2022 End: 10-28-2022 SCL-70 extractable nuclear IgG Ab [Units/volume] in Serum by Immunoassay [facility] Work Phone: Comment on above: Expected: 08/28/2022, Expires: 3 Start: 08-28-2022 End: 10-28-2022 TH/TO ANTIBODY [facility] Work Phone: Comment on above: Expected: 08/28/2022, Expires: 3 Start: 08-28-2022 End: 10-28-2022 U3RNP FIBRILLARIN AB [facility] Work Phone: Comment on above: Expected: 08/28/2022, Expires: 3 Start: 08-28-2022 End: 10-28-2022 Urinalysis complete panel - Urine [facility] Work Phone: Comment on above: Expected: 08/28/2022, Expires: 3 Start: 08-03-2022 DEPRESSION ASSESSMENT DEPRESSION ASSESSMENT [facility] Start: 07-03-2022 End: 02-19-2023 CINDY SCREENING W [facility] CINDY SCREENING [facility] Radiology Routine Encounter for screening mammogram for malignant neoplasm of breast Expected: 07/03/2022 (Approximate), Expires: 02/19/2023 [facility] Work Phone: Comment on above: Expected: 07/03/2022 (Approximate), Expi res: 02/19/2023 Start: 07-01-2022 Mammography [facility] Start: 07-01-2022 Screening for malignant neoplasm of breast Mammogram Screening [facility] Start: 04-12-2022 Adult depression screening assessment DEPRESSION SCREENING [facility] Start: 04-03-2022 Influenza vaccination INFLUENZA (#1) [facility] Start: 08-03-2021 DEPRESSION ASSESSMENT DEPRESSION ASSESSMENT [facility] Start: 04-24-2021 COVID-19 VACCINE (3 - Booster for Moderna series) COVID-19 VACCINE (3 - Booster for Moderna series) [facility] Start: 04-24-2021 COVID-19 VACCINE (3 - Moderna series) COVID-19 VACCINE (3 - Moderna series) [facility] Start: 03-27-2021 COVID-19 VACCINE (3 - Moderna risk series) COVID-19 VACCINE (3 - Moderna risk series) [facility] Start: 02-02-1999 SHINGRIX VACCINE (1 of 2) SHINGRIX VACCINE (1 of 2) [facility] Start: 02-02-1998 HIV SCREENING HIV SCREENING [facility] Start: 02-02-1998 HIV screening HIV Screening [facility] Start: 02-02-1986 PNEUMOCOCCAL (1 - PCV) PNEUMOCOCCAL (1 - PCV) [facility] Start: 1980 HEPATITIS B (1 of 3 - 3-dose series) HEPATITIS B (1 of 3 - 3-dose series) [facility] Start: 1980 Hepatitis B Vaccine (1 of 3 - 3-dose series) Hepatitis B Vaccine (1 of 3 - 3-dose series) [facility] End: 11-25-2025 CT Chest WO contrast CT CHEST WO IVCON Radiology Routine SOB (shortness of breath) Wheezing 1 Occurrences starting 10/26/2024 until 11/25/2025 [facility] Comment on above: 1 Occurrences starting 10/26/2024 until 11/25/2025 End: 06-10-2025 DBT Breast - bilateral screening CINDY SCREENING [facility] Radiology Routine Encounter for screening mammogram for breast cancer 1 Occurrences starting 05/11/2024 until 06/10/2025 [facility] Work Phone: Comment on above: 1 Occurrences starting 05/11/2024 until 06/10/2025 End: 10-14-2025 Echocardiography ECHO Cardiology STAT Bilateral leg edema SOB (shortness of breath) 1 Occurrences starting 10/14/2024 until 10/14/2025 [facility] Work Phone: Comment on above: 1 Occurrences starting 10/14/2024 until 10/14/2025 End: 11-25-2025 LUNG DIFFUSION CAPACITY (DLCO) LUNG DIFFUSION CAPACITY (DLCO) PFT Routine SOB (shortness of breath) Wheezing 1 Occurrences starting 10/26/2024 until 11/25/2025 [facility] Comment on above: 1 Occurrences starting 10/26/2024 until 11/25/2025 End: 11-25-2025 LUNG VOLUMES LUNG VOLUMES PFT Routine SOB (shortness of breath) Wheezing 1 Occurrences starting 10/26/2024 until 11/25/2025 [facility] Comment on above: 1 Occurrences starting 10/26/2024 until 11/25/2025 End: 01-23-2024 CINDY SCREENING CINDY SCREENING Radiology Routine Encounter for screening mammogram for breast cancer 1 Occurrences starting 12/24/2022 until 01/23/2024 [facility] Work Phone: Comment on above: 1 Occurrences starting 12/24/2022 until 01/23/2024 End: 07-02-2024 CINDY SCREENING CINDY SCREENING Radiology Routine Encounter for screening mammogram for malignant neoplasm of breast 1 Occurrences starting 06/03/2023 until 07/02/2024 [facility] Work Phone: Comment on above: 1 Occurrences starting 06/03/2023 until 07/02/2024 End: 11-19-2024 MG Breast - right Diagnostic for implant CINDY DIAGNOSTIC RIGHT Radiology Routine Abnormal mammogram of right breast 1 Occurrences starting 10/21/2023 until 11/19/2024 [facility] Work Phone: Comment on above: 1 Occurrences starting 10/21/2023 until 11/19/2024 Microscopic observat ion [Identifier] in Vaginal fluid by Gram stain BACT/DENISE VAG GRAM STAIN Microbiology Routine Postcoital bleeding Vaginal discharge Ordered: 02/12/2022 [facility] Work Phone: Comment on above: Ordered: 02/12/2022 Path report.final Dx Spec [facility] Patient Education ED Chest Pain, Uncertain Cause ED Dyspnea [facility] Work Phone: Patient referral [facility] Work Phone: PELVIC US WHI PELVIC US WHI An c Imaging Routine Pain due to intrauterine contraceptive device (IUD), initial encounter (HCC) Postcoital bleeding Ordered: 02/12/2022 [facility] Work Phone: Comment on above: Ordered: 02/12/2022 End: 11-25-2025 SPIROMETRY - BASELINE AND POST DILATOR SPIROMETRY - BASELINE AND POST DILATOR PFT Routine SOB (shortness of breath) Wheezing 1 Occurrences starting 10/26/2024 until 11/25/2025 [facility] Work Phone: Comment on above: 1 Occurrences starting 10/26/2024 until 11/25/2025 End: 04-19-2025 US Breast - right limited US BREAST LTD RIGHT Radiology Routine Abnormal mammogram of right breast 1 Occurrences starting 10/21/2023 until 11/19/2024 [facility] Work Phone: Comment on above: 1 Occurrences starting 10/21/2023 until 11/19/2024 US Pelvis [facility] Pelvis transvaginal [facility] Immunizations Immunization Date Immunization Notes Care Provider [facility] 06-17-2024 influenza, seasonal, injectable, preservative free Dr. Hilton Doty DO Work Phone: [facility] 06-03-2023 influenza, injectabl e, quadrivalent, contains preservative Hilton Doty DO Work Phone: [facility] Work Phone: 06-03-2023 influenza virus vaccine, unspecified formulation Doris Driscoll APRN.CNS Work Phone: [facility] 04-08-2023 Hepatitis B vaccine (recombinant), CpG adjuvanted Dr. Hilton Doty Work Phone: [facility] 03-04-2023 Hepatitis B vaccine (recombinant), CpG adjuvanted Dr. Hilton Doty Work Phone: [facility] 04-12-2021 influenza, injectabl e, quadrivalent, contains preservative Ale Conner MD Work Phone: [facility] Work Phone: 04-12-2021 influenza virus vaccine, unspecified formulation Priscilla Junior MD Work Phone: [facility] 02-27-2021 Covid (Moderna) Dr. Hilton nunez Work Phone: [facility] 01-30-2021 COVID-19 vaccine, fu ll dose (MODERNA) Ale Conner MD Work Phone: [facility] 07-15-2019 influenza, injectabl e, quadrivalent, contains preservative Ale Conner MD Work Phone: [facility] Work Phone: 04-22-2017 influenza, seasonal, injectable Ale Conner MD Work Phone: [facility] Work Phone: 05-14-2015 influenza, seasonal, injectable Ale Conner MD Work Phone: [facility] Work Phone: 01-24-2015 tetanus toxoid, reduced diphtheria toxoid, and acellular pertussis vaccine, adsorbed Ale Conner MD Work Phone: [facility] Work Phone: Payers Date Payer Category Payer Self-pay [id number] 2023 Unknown [id number] 2023 Private Health Insurance [id number] 2022 Private Health Insurance [id number] 2022 Unknown DINO MORA PPO [id number] 2022-Present [phone] [address] [place] [address] PPO [id number] 2021 Unknown [employer]ENDIZ [employer]T SELF FUNDED [id number] 2021-Present [phone] [address] [place] [address] PPO [id number] 2020 Private Health Insurance [facility] UMR CHOICE PLUS [id number] 2020-Present [phone] [address] [address] [place] [address] [facility] [id number] 2014 Private Health Insurance [employer] [id number] Unknown [facility] [id number] [place] [place] [id number] Unknown [id number] 2.16840.1.635948.3.579.2. 462 Unknown [id number] 2.840.1.575621.3.579.2. 462 Unknown [id number] 2.16840.1.302350.3.579.2. 462 Unknown [id number] 2.16840.1.738017.3.579.2. 462 Unknown [id number] 2.16840.1.122960.3.579.2. 462 Unknown [id number] 2.16840.1.364873.3.579.2. 462 Unknown [id number] 2.16840.1.318389.3.579.2. 462 Unknown [id number] 2.16840.1.199747.3.579.2. 462 Unknown [id number] 2.16840.1.366599.3.579.2. 462 Unknown [id number] 2.16840.1.213064.3.579.2. 462 Unknown [id number] 2.16840.1.408924.3.579.2. 462 Unknown [id number] 2.16.840.1.755300.3.579.2. 462 Unknown [id number] 2.16.840.1.617740.3.579.2. 462 Unknown [id number] 2.16.840.1.984576.3.579.2. 462 Unknown [id number] 2.16.840.1.365185.3.579.2. 462 Unknown [id number] 2.16.840.1.996160.3.579.2. 462 Unknown [id number] 2.16.840.1.076515.3.579.2. 462 Unknown [id number] 2.16.840.1.935445.3.579.2. 462 Unknown [id number] 2.16840.1.175603.3.579.2. 462 Unknown [id number] 2.16.840.1.934674.3.579.2. 462 Unknown [id number] 2.16840.1.008409.3.579.2. 462 Unknown [id number] 2.16840.1.871892.3.579.2. 462 Unknown [id number] 2.16.840.1.938666.3.579.2. 462 Unknown [id number] 2.16.840.1.105403.3.579.2. 462 Unknown [id number] 2.16840.1.692054.3.579.2. 462 Unknown [id number] 2.16.840.1.820982.3.579.2. 462 Unknown [id number] 2.16.840.1.100202.3.579.2. 462 Unknown [id number] 2.16.840.1.795152.3.579.2. 462 Unknown [id number] 2.16.840.1.566329.3.579.2. 462 Unknown [id number] 2.16840.1.592503.3.579.2. 462 Unknown [id number] 2.16.840.1.587448.3.579.2. 462 Unknown [id number] 2.16.840.1.330860.3.579.2. 462 Unknown [id number] 2.16.840.1.167984.3.579.2. 462 Unknown [id number] 2.16.840.1.504300.3.579.2. 462 Unknown [id number] 2.16840.1.397487.3.579.2. 462 Social History Date Type Detail Facility Start: 08-30-2013 End: 08-21-2014 Tobacco smoking status NHIS Never smoked tobacco [facility] Work Phone: Start: 08-30-2013 End: 08-21-2014 Tobacco use and exposure Smokeless tobacco non-user [facility] Work Phone: Start: 10-05-2021 End: 10-26-2024 Alcohol intake Current drinker of alcohol (finding) [facility] Start: 08-21-2014 History SDOH Alcohol Comment occ [facility] Start: 01-04-2021 Education 13 [facility] Start: 1980 Sex Assigned At Not on file C [facility] Start: 01-10-2022 End: 04-23-2022 Exposure to SARS-CoV-2 (event) Not sure [facility] Work Phone: Start: 03-02-2023 End: 02-08-2024 History of Social function [facility] Work Phone: Start: 03-02-2023 End: 02-08-2024 Tobacco use panel [facility] Work Phone: Adult Depression Screening Assessment 0 [facility] Work Phone: Start: 06-11-2023 End: 10-14-2023 Tobacco smoking status NHIS Unknown if ever smoked [facility]: [facility]12-2020 [facility] 03-12-2020 None [facility] Start: 03-12-2020 Spouse/ Signif icant Other;With Family [facility] Start: 1980 Sex Assigned At Female [facility] Has the electric, gas, oil, or water company threatened to shut off services in your home in past 12Mo No [facility] Are you now , , , , never or living with a partner? [facility] How often to you hav e a drink containing alcohol? Never [facility] How often do you hav e 6 or more drinks on 1 occasion? Less than monthly [facility] Do you feel stress - tense, restless, nervous, or anxious, or unable to sleep at night because your mind is troubled all the time - these days [OSQ] To some extent [facility] (I/We) worried whether (my/our) food would run out before (I/we) got money to buy more. Never true [facility] Start: 04-04-2024 End: 01-10-2025 Tobacco smoking status NHIS Ex-smoker (finding) [facility] Start: 10-06-2024 End: 11-14-2024 Sex Female (finding) [facility] NEGATED: Highlighted row [facility] Functional Status Date Assessment Result Facility 01-24-2015 Are you deaf, or do you have serious difficulty hearing No 01/24/2015 1:02 PM JAET Char Valencia LPN No [facility] 01-24-2015 Are you blind, or do you have serious difficulty seeing, even when wearing glasses No 01/24/2015 1:02 PM JAET Char Valencia LPN No [facility] 01-24-2015 Do you have serious difficulty walking or climbing stairs No 01/24/2015 1:02 PM JAET Char Valencia LPN No [facility] 01-24-2015 Do you have difficul ty dressing or bathing No 01/24/2015 1:02 PM Char Vines LPN No [facility] 01-24-2015 Because of a physica l, mental, or emotional condition, do you have difficulty doing errands alone such as visiting a physician's office or shopping No 01/24/2015 1:02 PM Char Vines LPN No [facility] Mental Status Date Assessment Result Facility 09-29-2023 Cognitive function Voice/Name [facility] Work Phone: 01-24-2015 Because of a physica l, mental, or emotional condition, do you have serious difficulty concentrating, remembering, or making decisions No 01/24/2015 1:02 PM EDT Char Vaelncia LPN No [facility] Clinical Notes 12-13-2021 to 01-10-2025 Note Date & Type Note Facility 01-10-2025 Procedure note [facility] 12-19-2024 Progress note Note Date/Time December 19, 2024 6:29pm [facility] [address] [place] [address] OFFICE VISIT Date of Service: 12/19/24 MR#: [id number] Acct: [id number] Name: WANDA CAAL Rep #: [id number] : 1980 Provider: Dr. 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 We had initially [...] there is no contraindication to use 12/19/24 182 <Electronically signed by Derek Quintero> Date _ Derek Barone MD [facility] Signature: Date (if applicable) CC: ~ [facility] [employer] Work Phone: 1(426) 740-949405-19-2025 [facility] [address] [place] [address] OFFICE VISIT Date of Service: 12/19/24 MR#: [id number] Acct: [id number] Name: WANDA CAAL Rep #: [id number] : 1980 Provider: Dr. 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 We had initially [...] 1829 D> Date _ Derek Barone MD Cosignthien Signature: Date (if applicable) CC: ~ [facility]04-17-2025 Telephone encounter Note* Telephone Encounter - Catina Austin LPN - 11/17/2024 2:15 PM EDT Images from the original note were not included. [employer] JAYE rec'd and completed for phentermine topiramateER. This was denied per pts insurance. Note from payer: Request Reference Number: [id number]. QSYMIA CAP is denied due to Plan Exclusion. For [...] Pharmacy Benefits Open Encounter WANDA CAAL - [facility] (OPTUM_IRX) Covered: Retail, Mail Order Unknown: Specialty, Long-Term Care BIN: [id number] : 1980 Group ID: [id number] PCN: [id number] Legal sex: F Group name: Address: [address] [place] [address] Medication Being Authorized phentermine-topiramate ER (QSYMIA) 11.25-69 mg 24 Hr Capsule Take 1 capsule by mouth once daily for 90 days. BMI 31.32 Dispense: 90 capsule Refills: 1 Start: 11/17/2024 End: 02/15/2025 Class: Normal Diagnoses: Obesity, Class I, BMI 30-34.9; Inflammatory polyarthropathy (HCC); Dyslipidemia This order has been released to its destination. To be filled at: [facility] [place] [address] [address] [phone] [facility]04-17-2025 Miscellaneous Notes* Telephone Encounter - Catina Austin LPN - 11/17/2024 2:15 PM EDT Images from the original note were not included. [employer] PA rec'd and completed for phentermine topiramateER. This was denied per pts insurance. Note from payer: Request Reference Number: [id number]. QSYMIA CAP 11.25-69 is denied due to [...] Document Pharmacy Benefits Open Encounter WANDA CAAL [facility] (OPTUM_IRX) Covered: Retail, Mail Order Unknown: Specialty, Long-Term Care BIN: [id number] : 1980 Group ID: [id number] PCN: [id number] Legal sex: F Group name: Address: [address] [place] [address] Medication Being Authorized phentermine-topiramate ER (QSYMIA) 11.25-69 mg 24 Hr Capsule Take 1 capsule by mouth once daily for 90 days. BMI 31.32 Dispense: 90 capsule Refills: 1 Start: 11/17/2024 End: 02/15/2025 Class: Normal Diagnoses: Obesity, Class I, BMI 30-34.9; Inflammatory polyarthropathy (HCC); Dyslipidemia This order has been released to its destination. To be filled at: [employer] [facility] [place] [address] [address]. - [phone] documented in [facility]04-[facility]25 NoteHNO ID: [id number] Author: HILTON DOTY, DO Service: ? Author [...] SE Currently She had CT chest at [facility] for her dyspnea symptoms- this testing was normal appearing on review She also had ECHOCARDIOGRAM at [facility] for her dyspnea symptoms- this testing was [...] disease PAST SURGICAL HISTORY Procedure Laterality Date DANOH (MISSED AB 1ST TRIMESTER) 2001 ESWL Right [...] as d/w her today (more content not included)...[facility]04-17-2025 History of Present illness Narrative* Hilton Doty DO - 11/17/2024 12:22 PM EDT CC: Wanda [...] SE Currently She had CT chest at [facility] for her dyspnea symptoms- this testing was normal appearing on review She also had ECHOCARDIOGRAM at [facility] for her dyspnea symptoms- this testing was [...] - ICD9: 714.9, ICD10: M06.4 F/u with Personal Computer Network Engineer - QSYMIA 11.25 MG-69 MG CAPSULE, EXTENDED [...] - ICD9: 627.2, ICD10: N95.1 F/u with SCREEN ROLLER Affecting her symptoms likely 7. SOB (shortness [...] I83.893 F/u with specialist for procedure/care Hilton Doty, I spent 45 minutes in the visit, with more than 50% of the total ccje-di-swhi time of the visit in counseling / coordination of care. Return if no improvement. Follow up with Hilton Doty DO. To ER if develops chest pain, shortness of breath. Discussed risks, benefits, alternatives, and potential side effects of medications. Patient/Guardian expressed understanding and agreed with the plan. See patient instructions. Hilton Doty DO [address] [place] [address] documented in this encounterT[facility] Hospital04-16-2025 Instructions* Patient Instructions* Hilton Doty DO - 11/16/2024 7:53 PM EDT Magnesium glycinate 500-800 mg in the evening Powder or pill documented in this encounterTwin City Hospital04-11-2025 Telephone encounter Note * Telephone Encounter - Lois Rod MA - 11/11/2024 1:17 PM EDT Pt informed via message Lois Rod MA [facility]04-11-2025 Miscellaneous Notes* Telephone Encounter - Lois Rod MA - 11/11/2024 1:17 PM EDT Pt informed via MC message Lois Rod MA * Telephone Encounter - Anna Sheikh APRN.CNP - 11/11/2024 1:[address] looks completely normal, no concerns. Anna Sheikh APRN.CNP * Telephone Encounter - Ariana Schwarz MA - 11/11/2024 10:39 AM EDT Pt completed CT Chest at [facility]. Results have been scanned into [employer] for Provider to review. Please review under imaging tab. Ariana Schwarz MA documented in this encounterTwin City Hospital04-11-2025 Telephone encounter Note * Telephone Encounter - Anna Sheikh APRN.CNP - 11/11/2024 1:[address] looks completely normal, no concerns. Anna Sheikh APRN.CNP [facility] Work Phone: 1(466) 226-138104-11-2025 Telephone encounter Note* Telephone Encounter - Ariaan Schwarz MA - 11/11/2024 10:39 AM EDT Pt completed CT Chest at [facility]. Results have been scanned into [employer] for Provider to review. Please review under imaging tab. Ariana Schwarz MA [facility]04-11-2025 Radiology Diagnostic study note [facility] Imaging Services [address] [place] [address] Chest without Contrast MR#: [id number] Acct: [id number] Name: WANDA CAAL Rep #: [id number] : 1980 F 44 From: Michael Smith MD PCP: Dr. Hliton Doty DO Status: RE G CLI Study:Chest without Contrast Date of Exam: 11/10/24 Exam# [id number] Ordering Dr: Hilton Doty DO PROCEDURE: CHEST [...] the chest. Status post cholecystectomy. Reading Location: [facility] CC: Dr. Hilton Doty, DO ~ Swimming Pool Attendant: Signed [facility]04-04-2025 Telephone encounter Note* Telephone Encounter - Anna Sheikh APRN.CNP - 11/04/2024 8:06 AM EDT Noted, thank you Anna Sheikh APRN.CNP [facility] Work Phone: 1(600) 395-502204-04-2025 Miscellaneous Notes* Telephone Encounter - Anna Sheikh [...] alternative if needed. Thank you, Lisa Doll APRN.VEGETABLE VENDOR * Telephone Encounter - Catina Austin LPN [...] Cre 20% Wanda Caal PATIENT INFO: PROVIDER: Hilton Doty documented in this encounterTwin City Hospital04-02-2025 Evaluation note* Diagnosis Onset Date Resolution Status Admit Date Varicose veins of lower extremity noneactive November 02, 2024 11:30am Encounter for routine gynecological examination noneactive December 122024 9:20am Symptomatic varicose veins chronic December 19, 2024 3:31pm [facility] Work Phone: 1(816) 497-148904-02-2025 Telephone encounter Note* Telephone Encounter - Catina Austin LPN - 11/02/2024 11:37 AM EDT Called the pharmacy and they report the generic azeliac acid would be covered, this is a 15% though. Pt has not picked the rx for the 20% nor has she responded to the pharmacy chart message. [facility]03-28-2025 Telephone encounter Note* Telephone Encounter - Lisa Doll APRN.CNP - 10/28/2024 2:31 PM EDT Please call patient and let her know. She can call insurance for alternative if needed. Thank you, Lisa Doll APRN.VEGETABLE VENDOR [facility]03-28-2025 Telephone encounter Note* Telephone Encounter - [...] Cre 20% Wanda Caal PATIENT INFO: PROVIDER: Hilton Doty [facility]03-26-2025 Note* Addendum Note - Hilton Doty DO - 10/26/2024 10:05 PM EDTAddended by: HILTON DOTY on: 10/26/2024 10:05 PM Modules accepted: Orders [facility]03-26-2025 Miscellaneous Notes* Addendum Note - Hilton Doty DO - 10/26/2024 10:05 PM EDTAddended by: HILTON DOTY on: 10/26/2024 10:05 PM Modules accepted: Orders documented in this encounterTwin City Hospital03-26-2025 Instructions* Patient Instructions* Hilton Doty DO - 10/26/2024 6:41 PM EDT Magnesium glycinate 500-800 mg in the evening Powder- Pure encapsulations brand Stop chlorthalidone and potassium when finished Start spironolactone 50 mg a day Recheck labs in 2-3 weeks documented in this encounterTwin City Hospital03-26-2025 NoteHNO ID: [id number] Author: HILTON DOTY DO Service: ? Author [...] ICD10: E87.6 Stop cholthalidone (more content not included)...[facility] 10-26-2024 History of Present illness Narrative* Hilton [...] if not improving, then consider alternative and history faculty member opinion - AZELAIC ACID 20 % TOPICAL [...] with more than 50% of the total mqlv-xi-waza time of the visit in counseling / coordination of care. Return if no improvement. Follow up with Hilton Doty DO. To ER if develops chest pain, shortness of breath. Discussed risks, benefits, alternatives, and potential side effects of medications. Patient/Guardian expressed understanding and agreed with the plan. See patient instructions. Hilton Doty DO [address] [place] [address] documented in this encounterTwin City Hospital03-20-2025 Telephone encounter Note * Telephone Encounter - Lisa Doll APRN.VEGETABLE VENDOR - 10/20/2024 10:49 AM EDT No need for fluid restriction after getting BNP results as normal and normal kidney function. I would suggest around 60oz of water per day. Thank you, Lisa Doll APRN.VEGETABLE VENDOR [facility]03-20-2025 Miscellaneous Notes* Telephone Encounter - Lisa Doll APRN.VEGETABLE VENDOR - 10/20/2024 10:49 AM EDT No need for fluid restriction after getting BNP results as normal and normal kidney function. I would suggest around 60oz of water per day. Thank you, Lisa Doll APRN.VEGETABLE VENDOR * Telephone Encounter - Huma Winston LPN [...] for ativan sent. Thank you, Lisa Doll APRN.VEGETABLE VENDOR The following approved medication requests have been transmitted electronically. Requested Prescriptions Signed Prescriptions Disp Refills LORazepam (ATIVAN) 0.5 mg 30 tablet 0 Sig: Take 1 tablet by mouth once daily as needed (anxiety attack) for up to 30 days. Authorizing Provider: LISA DOLL APRN.CNP PDMP website checked and validated. All prescriptions have been APPROPRIATELY filled. No suspiciousactivity was identified. 10/20/2024 by Lisa Doll APRN.VEGETABLE VENDOR * Telephone Encounter - Sorin Lan RN - 10/20/2024 9:14 AM EDT Phoned pt and given provider's message below. Pt states she hasn't seen a geosciences professor since last year. Reports pcp agreed to [...] was elevated mildly. Recommend addressing this with Personal Computer Network Engineer Hilton Doty DO * Telephone Encounter - Ngoc Ervin RN - 10/07/2024 10:18 AM EST Patient asking if Dr. Doty could review her [facility] lab results that were completed 09/22/24 (in scanned docs), as well as her [facility] Note from 09/08/24 (in scanned docs as well). Pt states there is no [facility] to review these records, but wanted Dr. Doty's advise on her lab results, as she sees there are some numbers that are off and she was not feeling well during the time she had her labs drawn. Pt states she will be following up with [facility] in November. Ngoc Ervin RN documented in this encounterT[facility] Hospital03-20-2025 Telephone encounter Note * Telephone Encounter - Huma Winston LPN - 10/20/2024 10:22 AM EDT Pt states understanding. Now asking what is a good amount of of water for her to be drinking? Statesw at last appointment was told to watch fluid intake but with her meds they make her super thirsty.So asking what is an ok amount to drink? [facility]03-20-2025 Telephone encounter Note* Telephone Encounter - Lisa Doll APRN.VEGETABLE VENDOR - 10/20/2024 10:14 AM EDT All of [...] was identified. 10/20/2024 by Lisa Doll APRN.CNP [facility]03-20-2025 Telephone encounter Note* Telephone Encounter - Sorin Lan RN - 10/20/2024 9:14 AM EDT Phoned pt and given provider's message below. Pt states she hasn't seen a geosciences professor since last year. Reports pcp agreed to [...] asking pcp to refill her lorazepam. Pended. [facility]03-19-2025 Telephone encounter Note* Telephone Encounter - Hilton Doty DO - 10/19/2024 7:57 PM EDT Please inform patient that labs were stable other than CRP was elevated mildly. Recommend addressing this with Personal Computer Network Engineer Hilton Doty DO [facility]03-17-2025 Telephone encounter Note* Telephone Encounter - Lissa Cedillo RN - 10/17/2024 4:40 PM EDT Pt called and is notified of providers results and instructions. Pt voices understanding. Lissa Cedillo RN [facility]03-17-2025 Miscellaneous Notes* Telephone Encounter - Lissa [...] to limit herself to. Lissa Cedillo, RN * Telephone Encounter - Rajinder Hinton [...] results are back she had done at [facility] on 10/14? See in lab section scanned in. Patient was going to try to go back to work tomorrow but still feels short of breath with not much activity, and fatigued. Please advise documented in this encounterTwin City Hospital03-17-2025 Telephone encounter Note * Telephone Encounter - Rajinder Hinton APRN.FEI - 10/17/2024 4:24 PM EDT I want her to increase her chlorthalidone to 50mg daily x3 days and let me know if symptoms improve. [facility] Work Phone: 1(891) 266-665503-17-2025 Telephone encounter Note* Telephone Encounter - Simran Méndez RN - 10/17/2024 4:20 PM EDT Patient calls back and states that she does not take lasix. Patient was taken off of lasix. Patienttake chlorthalidone 25 mg daily for edema. Please review and advise, Simran Méndez RN [facility]03-17-2025 Telephone encounter Note* Telephone Encounter - [...] to limit herself to. Lissa Cedillo RN [facility]03-17-2025 Telephone encounter Note* Telephone Encounter - Rajinder Hinton APRN.FEI - 10/17/2024 3:36 PM EDT Has patient scheduled echo? If so when is it? In the meantime I would recommend watching her salt and water intake, How much lasix is she taking currently? If she is only taking 20mg daily I would have increase to 40mg for the next 3 days to see if there is an improvement in her symptoms. [facility]03-17-2025 Telephone encounter Note* Telephone Encounter - Dasia Hopper MA - 10/17/2024 3:26 PM EDT Pt notified and verbalized understanding. Pt asking if you have any further recommendations to help with the SOB in the meantime? Dasia Hopper MA [facility]03-17-2025 Telephone encounter Note* Telephone Encounter - Rajinder Hinton APRN.CNP - 10/17/2024 2:36 PM EDT Please let patient know her BNP is normal. Patient should follow up with Dr. Doty next week as scheduled. [facility]03-17-2025 Telephone encounter Note* Telephone Encounter - Gina Sparks LPN - 10/17/2024 2:28 PM EDT Patient calling asking if her lab results are back she had done at [facility] on 10/14? See in lab section scanned in. Patient was going to try to go back to work tomorrow but still feels short of breath with not much activity, and fatigued. Please advise [facility]03-17-2025 Telephone encounter Note* Telephone Encounter - Dasia Hopper MA - 10/17/2024 10:17 AM EDT New stat order faxed to [facility] Dasia Hopper MA [facility]03-17-2025 Miscellaneous Notes* Telephone Encounter - Dasia Hopper MA - 10/17/2024 10:17 AM EDT New stat order faxed to [facility] Dasia Hopper MA * Telephone Encounter - Rajinder Hinton APRN.CNP - 10/14/2024 3:40 PM EDT New order placed. Please fax to [facility]. * Telephone Encounter - Frank Obando RN - 10/14/2024 3:19 PM EDT Patient calls to report that she is having trouble scheduling ECHO with [facility] until out into November because it doesn't say stat. Patient asking if order can be changed to STAT and sent to [facility] scheduling. Frank Obando RN documented in this encounterT[facility]03-14-2025 Telephone encounter Note * Telephone Encounter - Rajinder Hinton APRN.CNP - 10/14/2024 3:40 PM EDT New order placed. Please fax to [facility]. [facility]03-14-2025 Telephone encounter Note* Telephone Encounter - Frank Obando RN - 10/14/2024 3:19 PM EDT Patient calls to report that she is having trouble scheduling ECHO with [facility] until out into November because it doesn't say stat. Patient asking if order can be changed to STAT and sent to [facility] scheduling. Frank Obando RN [facility]03-14-2025 NoteHNO ID: [id number] Author: RAJINDER HINTON APRN.VEGETABLE VENDOR Service: ? Author Type: Nurse Practitioner Type: [...] History PAST SURGICAL HISTORY Procedure Laterality Date DANOH (MISSED AB 1ST TRIMESTER) 2001 ESWL Right [...] done Mammogram Screening due on 07/01/2022 Covid-19 Vaccine( season) due on 04/03/2024 DTaP,Tdap,Td Vaccine(2 - [...] 0.9 % (FLUSH) INJECTION SYRINGE Rajinder Hinton APRN.[facility]IP[facility]03[facility] History of Present illness Narrative* Rajinder Hinton APRN.FEI - 10/14/2024 1:21 PM EDT Chief Complaint [...] done Mammogram Screening due on 07/01/2022 Covid-19 Vaccine( season) due on 04/03/2024 DTaP,Tdap,Td Vaccine(2 - [...] 0.9 % (FLUSH) INJECTION SYRINGE Rajinder Hinton APRN.VEGETABLE VENDOR documented in this encounterTwin City Hospital03-13-2025 Radiology Diagnostic study note [facility] Imaging Services [address] [place], [place] [address] Chest PA and Lateral MR#: [id number] Acct: [id number] Name: WANDA CAAL Rep #: [id number] : 1980 F 44 From: Donovan Almanza MD PCP: Dr. Hilton Doty DO Status: RE G ER Study:Chest PA and Lateral Date of Exam: 10/13/24 Exam# [id number] Ordering Dr: Charlie Lombardo DO PROCEDURE: CHEST [...] IMPRESSION: No acute pulmonary disease. Reading Location: [id number] CC: Dr. Hilton Doty DO; Dr. Charlie Lombardo DO ~ Swimming Pool Attendant: Signed [facility]03-13-2025 Telephone encounter Note* Telephone Encounter - Lissa Cedillo RN - 10/13/2024 12:16 PM EDT Protocol recommends go to the ER. Pt is going to [facility] ER. Care plan reviewed with patient. Patient [...] in the last month. Protocols used: Breathing Wfsypwwvhm-UFBIY-KK [facility]03-13-2025 Miscellaneous Notes* Telephone Encounter - Lissa Cedillo RN - 10/13/2024 12:16 PM EDT Protocol recommends go to the ER. Pt is going to [facility] ER. Care plan reviewed with patient. Patient [...] in the last month. Protocols used: Breathing Xmiwobbuan-ZTIIQ-KS documented in this encounterTwin City Hospital03-07-2025 Telephone encounter Note * Telephone Encounter [...] As needed for edema Ngoc Ervin RN [facility]03-07-2025 Miscellaneous Notes* Telephone Encounter - Ngoc [...] edema Ngoc Ervin RN documented in this encounterTwin City Hospital03-07-2025 Telephone encounter Note * Telephone Encounter - Ngoc Ervin RN - 10/07/2024 10:18 AM EST Patient asking if Dr. Doty could review her [facility] lab results that were completed 09/22/24 (in scanned docs), as well as her [facility] Note from 09/08/24 (in scanned docs as well). Pt states there is no [facility] to review these records, but wanted Dr. Doty's advise on her lab results, as she sees there are some numbers that are off and she was not feeling well during the time she had her labs drawn. Pt states she will be following up with [facility] in November. Ngoc Ervin RN [facility]02-20-2025 Telephone encounter Note* Telephone Encounter - Frank Obando RN - 09/22/2024 12:35 PM EST Patient calls to request lab orders be faxed to [facility]. Faxed to [phone] per request. Frank Obando RN [facility]02-20-2025 Miscellaneous Notes* Telephone Encounter - Frank Obando RN - 09/22/2024 12:35 PM EST Patient calls to request lab orders be faxed to [facility]. Faxed to [phone] per request. Frank Obando RN documented in this encounterTwin City Hospital02-06-2025 Evaluation note* Diagnosis Onset Date Resolution Status Admit Date Varicose veins of lower extremity noneactive September 08 10:57am [facility] Work Phone: 1(979) 463-239802-06-2025 Evaluation note* Diagnosis Onset Date Resolution Status Admit Date Varicose veins of lower extremity noneactive September 08 10:57am Varicose veins of lower extremity noneactive November 02, 2024 11:30am [facility] Work Phone: 1([phone]) 212-216002-06-2025 Evaluation note* Diagnosis Onset Date Resolution Status Admit Date Varicose veins of lower extremity noneactive September 08 10:57am Varicose veins of lower extremity noneactive November 02, 2024 11:30am Encounter for routine gynecological examination noneactive December 122024 9:20am [facility] Work Phone: 1(139) 550-674902-06-2025 Evaluation note* Diagnosis Onset Date Resolution Status Admit Date Varicose veins of lower extremity noneactive September 08 10:57am Varicose veins of lower extremity noneactive November 02, 2024 11:30am Encounter for routine gynecological examination noneactive December 122024 9:20am Symptomatic varicose veins chronic December 19, 2024 3:31pm [facility] Work Phone: [phone]) [phone] Telephone encounter Note* Telephone Encounter - Gina Sparks LPN - 08/08/2024 10:59 AM EST Patient calling asking to have Vascular referral faxed to Dr Derek Barone [facility] at [phone]. Printed office visit note, consult, face sheet, insurance card copy,and faxed as requested. So patient can get appt set up. [facility]01-06-2025 Miscellaneous Notes* Telephone Encounter - Gina Sparks LPN - 08/08/2024 10:59 AM EST Patient calling asking to have Vascular referral faxed to Dr Derek Barone [facility] at [phone]. Printed office visit note, consult, face sheet, insurance card copy,and faxed as requested. So patient can get appt set up. documented in this encounterTwin City Hospital12-30-2024 NoteHNO ID: [id number] Author: HILTON DOTY, DO Service: ? Author [...] of these veins surgically by specialist at [facility] where she works Inflammatory polyarthropathy, symptoms have been stable. Use of plaquenil as prescribed. Getting yearly eye examination Edema, use of chlorthalidone medication and potassium supplement Mood, admits to recently being stressed but feels she is in a better job position than previous. She is working with Psychiatrist office Dr. Oliveros at [facility]. She feels that her perimenopausal symptoms are bothering her. She is going to further discuss with SCREEN ROLLER as well. PAST MEDICAL HISTORY Diagnosis Date [...] surgically, she wants to see surgeon at [facility] where she works - CONSULT TO VASCULAR SURGERY 2. Hypokalemia - ICD9: 276.8, ICD10: E87.6 Recheck labs as ordered Continue potassium supplement - COMPREHENSIVE METABOLIC PANEL - COMPLETE BLOOD COUNT AND DIFFERENTIAL - THYROID STIMULATING HORMONE 3. LIVIA (generalized anxiety disorder) - ICD9: 300.02, ICD10: F41.1 Increase dose of wellbutrin D/w SCREEN ROLLER regarding perimenopause and how this is also affecting her mood and management of her mood. - BUPROPION HCL 75 MG TABLET 4. Situational depression - ICD9: 309.0, ICD10: F43.21 Increase dose of wellbutrin D/w SCREEN ROLLER regarding perimenopause and how this is also affecting her mood and management of her mood. - BUPROPION HCL 75 MG TABLET 5. Obesity, Class I, BMI 30-34.9 - ICD9: 278.00, ICD10: E66.811 Increase dose of wellbutrin D/w SCREEN ROLLER regarding perimenopause and how this is also affecting her mood and management of her mood. - Lengthy discussion in office today regarding diet and exercise. Discussed use of small plate to eat meals from, drink 1 glass of water 10-15 minutes prior to eating (more content not included)...[facility]12-30-2024 History of Present illness Narrative* Hilton Doty, DO - 08/01/2024 10:25 AM EST CC: Wanda [...] of these veins surgically by specialist at [facility] where she works Inflammatory polyarthropathy, symptoms have been stable. Use of plaquenil as prescribed. Getting yearly eye examination Edema, use of chlorthalidone medication and potassium supplement Mood, admits to recently being stressed but feels she is in a better job position than previous. She is working with Psychiatrist office Dr. Oliveros at [facility]. She feels that her perimenopausal symptoms are bothering her. She is going to further discuss with SCREEN ROLLER as well. PAST MEDICAL HISTORY Diagnosis Date [...] surgically, she wants to see surgeon at [facility] where she works - CONSULT TO VASCULAR SURGERY 2. Hypokalemia - ICD9: 276.8, ICD10: E87.6 Recheck labs as ordered Continue potassium supplement - COMPREHENSIVE METABOLIC PANEL - COMPLETE BLOOD COUNT AND DIFFERENTIAL - THYROID STIMULATING HORMONE 3. LIVIA (generalized anxiety disorder) - ICD9: 300.02, ICD10: F41.1 Increase dose of wellbutrin D/w SCREEN ROLLER regarding perimenopause and how this is also affecting her mood and management of her mood. - BUPROPION HCL 75 MG TABLET 4. Situational depression - ICD9: 309.0, ICD10: F43.21 Increase dose of wellbutrin D/w SCREEN ROLLER regarding perimenopause and how this is also affecting her mood and management of her mood. - BUPROPION HCL 75 MG TABLET 5. Obesity, Class I, BMI 30-34.9 - ICD9: 278.00, ICD10: E66.811 Increase dose of wellbutrin D/w SCREEN ROLLER regarding perimenopause and how this is also [...] is going to follow up with her Field Staff as well. - QSYMIA 11.25 MG-69 MG CAPSULE, EXTENDED RELEASE 6. Inflammatory polyarthropathy (HCC) - ICD9: 714.9, ICD10: M06.4 See above F/u with Personal Computer Network Engineer. - QSYMIA 11.25 MG-69 MG CAPSULE, EXTENDED [...] 714.9, ICD10: M19.90 See above F/u with Personal Computer Network Engineer. - HYDROXYCHLOROQUINE 200 MG TABLET 9. Perimenopausal symptoms - ICD9: 627.2, ICD10: N95.1 Follow up with SCREEN ROLLER Hilton Doty DO Return if no improvement. Follow up with Hilton Doty DO. To ER if develops chest pain, shortness of breath. Discussed risks, benefits, alternatives, and potential side effects of medications. Patient/Guardian expressed understanding and agreed with the plan. See patient instructions. Hilton Doty DO [address] [place] [address] documented in [facility]11-29-[facility]24 Telephone encounter Note * Telephone Encounter [...] Sparks LPN July 01, 2024 11:29 AM [facility]11-29-2024 Miscellaneous Notes* Telephone Encounter - Gina [...] 01, 2024 11:29 AM documented in this encounterTwin City Hospital10-17-2024 Telephone encounter Note * Telephone Encounter - Lois Rod MA - 05/19/2024 10:00 AM EDT Pt informed via MC message Lois Rod MA [facility]10-17-2024 Miscellaneous Notes* Telephone Encounter - Lois Rod MA - 05/19/2024 10:00 AM EDT Pt informed via MC message Lois Rod MA * Telephone Encounter - Anna Sheikh APRN.CNP - 05/19/2024 9:54 AM EDT At this point she has not opened any Saturdays. Anna Sheikh APRN.FEI * Telephone Encounter - Lois Rod MA - 05/12/2024 7:17 AM EDT Please see pt MC message-- Hi Dr Doty at last visit you said [...] night thank you ! documented in this encounterTwin City Hospital10-17-2024 Telephone encounter Note * Telephone Encounter - Anna Sheikh APRN.CNP - 05/19/2024 9:54 AM EDT At this point she has not opened any Saturdays. Anna Sheikh APRN.FEI [facility]10-10-2024 Telephone encounter Note* Telephone Encounter - Lois Rod MA - 05/12/2024 7:17 AM EDT Please see pt [employer] message-- Hi Dr Doty at last visit you said [...] rest of your night thank you ! [facility]10-10-2024 Telephone encounter Note* Telephone Encounter - Lois Rod MA - 05/12/2024 7:09 AM EDT Turned into TE Lois Rod MA [facility]10-10-2024 Miscellaneous Notes* Telephone Encounter - Lois Rod MA - 05/12/2024 7:09 AM EDT Turned into TE Lois Rod MA documented in this encounterTwin City Hospital10-09-2024 NotePatient Outreach (INTMMN) WANDA CAAL ([id number]) 1980 F Date Time Provider Department 05/11/24 HILTON DOTY During your visit today, we recorded the following information about you: Allergies As of Date: 05/11/2024 Noted Allergy Reaction PENICILLINS 08/30/2013 16 - Unknown Date Reviewed: 04/25/2024 Reviewed by: Char Valencia LPN - Fully Assessed Visit Diagnosis:Encounter for screening mammogram for breast cancer [Z12.31] Order(s):CNIDY TRAYLOR [[id number]] Order #: [id number] FUTURE Prescriptions as of 05/16/2024 - potassium [...] Inflammatory arthritis [M19.90] 04/25/2024 Encounter Status:Closed by CHRISTIANE CONCEPCIONUSErBeanne on 05/16/24[facility] 04-27[facility] Telephone encounter Note* Telephone Encounter - Lois Rod MA - 04/27/2024 6:53 PM EDT Pt informed, verbalized understanding Lois Rod MA [facility]09-25-2024 Miscellaneous Notes* Telephone Encounter - Lois Rod MA - 04/27/2024 6:53 PM EDT Pt informed, verbalized understanding Lois Rod MA * Telephone Encounter - Hilton Doty DO [...] View External Labs - Miscellaneous Lab [ID [id number]] View External Labs - Miscellaneous Lab [ID [id number]] View External Labs - Miscellaneous Lab [ID [id number]] documented in this encounterTwin City Hospital09-25-2024 Telephone encounter Note * Telephone Encounter [...] potassium in 3-4 days Hilton Doty DO [facility]09-25-2024 Telephone encounter Note* Telephone Encounter - Lois Rod MA - 04/27/2024 8:41 AM EDT Lab results attached. Lois Rod MA View External Labs - Miscellaneous Lab [ID [id number]] View External Labs - Miscellaneous Lab [ID [id number]] View External Labs - Miscellaneous Lab [ID [id number]] [facility]09-23-[facility] Instructions* Patient Instructions* Hilton Doty DO - 04/25/2024 10:51 AM EDT Magnesium glycinate or gluconate 400-500 mg in the evening Vitamin B complex daily in the morning. Take as liquid supplement with at least 1000 mcg vitamin B12, documented in this encounterTwin City Hospital09-23-2024 NoteHNO ID: [id number] Author: HILTON DOTY DO Service: ? Author [...] getting used to a new job at [employer] over the last 7-8 months as [...] well. would also be interested in seeing Field Staff at [facility] Currently Has been having increased stressors at [...] day, needs to make follow up with Personal Computer Network Engineer. Mood, struggling with being stressed due to [...] exercise as well. she has been seeing Field Staff at [facility] PAST MEDICAL HISTORY Diagnosis Date MAXIM positive 09/2014 Inflammatory polyarthropathy (HCC) Kidney stone with stent Raynaud's disease PAST SURGICAL HISTORY Procedure Laterality Date [facility] (MISSED AB 1ST TRIMESTER) 2001 [...] effort, CTA b/l, (more content not included)... [facility]09-23-2024 History of Present illness Narrative* Hilton Doty, [...] getting used to a new job at [employer] over the last 7-8 months as [...] aswell. would also be interested in seeing Field Staff at [facility] Currently Has been having increased stressors at [...] day, needs to make follow up with Personal Computer Network Engineer. Mood, struggling with being stressed due to [...] and exercise aswell. she has been seeing Field Staff at [facility] PAST MEDICAL HISTORY Diagnosis Date MAXIM positive [...] normal negative CXR and work up at [facility] - COMPLETE BLOOD COUNT AND DIFFERENTIAL 3. Hypokalemia - ICD9: 276.8, ICD10: E87.6 Labs as ordered Likely related to the hypokalemia, need to start on medication for potassium replacement- start on once a day supplement and recheck labs as ordered. rx sent to pharmacy Had otherwise normal negative CXR and work up at [facility] - POTASSIUM CHLORIDE ER 10 MEQ TABLET,EXTENDED RELEASE - COMPREHENSIVE METABOLIC PANEL 4. Fatigue, unspecified type - ICD9: 780.79, ICD10: R53.83 Labs as ordered Likely related to the hypokalemia, need to start on medication for potassium replacement- start on once a day supplement and recheck labs as ordered. rx sent to pharmacy Had otherwise normal negative CXR and work up at [facility] - VITAMIN B12 - VITAMIN D 25 HYDROXY 5. Inflammatory arthritis - ICD9: 714.9, ICD10: M19.90 Continue plaquenil, f/u with Personal Computer Network Engineer 6. Bilateral leg edema - ICD9: 782.3, [...] agreed with the plan. Hilton Doty DO [address] [place] [address] documented in this encounterTwin City Hospital08-30-2024 Telephone encounter Note * Telephone Encounter [...] was identified. 04/01/2024 by Anna Sheikh CNP. [facility]08-30-[facility] Miscellaneous Notes* Telephone Encounter - Anna [...] Sheikh CNP. * Telephone Encounter - Rox KnoxOLU - 04/01/2024 9:54 AM EDT Prescription Refill [...] 2024 9:54 AM * Telephone Encounter - Char Morse - 04/01/2024 9:41 AM EDT Patient is also asking for a refill of lorazepam; not on current med list. Please review and add to refill request if appropriate. * Telephone Encounter - Char Morse - 04/01/2024 9:40 AM EDT Prescription [...] mouth once daily. As needed for edema Char Garcia April 01, 2024 9:40 AM documented in this encounterTwin City Hospital08-30-2024 Telephone encounter Note * Telephone Encounter [...] Knox LPN April 01, 2024 9:54 AM [facility]08-30-2024 Telephone encounter Note* Telephone Encounter - Char Morse - 04/01/2024 9:41 AM EDT Patient is also asking for a refill of lorazepam; not on current med list. Please review and add to refill request if appropriate. [facility]08-30-[facility] Telephone encounter Note* Telephone Encounter - Char Morse - 04/01/2024 9:40 AM EDT Prescription [...] mouth once daily. As needed for edema Char Garcia April 01, 2024 9:40 AM [facility]08-15-2024 Telephone encounter Note* Telephone Encounter - [...] Please advise. Thank you. Lois Rod MA. [facility]08-15-2024 Miscellaneous Notes* Telephone Encounter - Lois [...] you. Lois Rod MA. documented in this encounterTwin City Hospital07-08-2024 History of Present illness Narrative* Dominik Ludwig, RT(R) - 02/08/2024 4:40 PM EDT Radiology [...] PATIENT PRESENTS WITH AN IMPLANTABLE OR ATTACHED BRIDGE TEACHER: No RADIOLOGY DEPARTMENT: General X-ray: Exam(s) Completed: Spine X-Ray(s): Thoracic and Lumbar AP / LAT / L5-S1 PERIPHERAL IV DATA: Not applicable SIGNED BY: RT Meaghan(R) February 08, 2024 4:53 PM documented in this encounterTwin City Hospital07-08-2024 NoteHNO ID: [id number] Author: DOMINIK LUDWIG RT(R) Service: Radiology Author [...] PATIENT PRESENTS WITH AN IMPLANTABLE OR ATTACHED BRIDGE TEACHER: No RADIOLOGY DEPARTMENT: General X-ray: Exam(s) Completed: Spine X-Ray(s): Thoracic and Lumbar AP / LAT / L5-S1 PERIPHERAL IV DATA: Not applicable SIGNED BY: RT Meaghan(R) February 08, 2024 4:53 [facility]07-08-2024 Instructions* Patient Instructions* Doris Driscoll APRN.CAR GREASER - 02/08/2024 4:34 PM EDT 1) Get X-rays today 2) Continue naproxen 3) Methocarbamol 500 mg 3 x day 4) Alternating heat 5) Keep April appt. documented in this encounterTwin City Hospital07-08-2024 NoteHNO ID: [id number] Author: DORIS DRISCOLL APRN.CAR GREASER Service: ? Author Type: Clinical Nurse Specialist Type: Progress Notes Filed: 02/08/2024 17:13 Note Text: This is a 44 year old female who presents today with: Patient presents with: ER F/U: [facility] 02/05/24 Fall HISTORY OF PRESENT ILLNESS: Wanda Caal is a 44 year old female. Patient presents with: ER F/U: [facility] 02/05/24 Fall Fell backwards off a 4 [...] disease PAST SURGICAL HISTORY Procedure Laterality Date [facility] (MISSED AB 1ST TRIMESTER) 2001 ESWL Right 05/08/2017 EXTRACTION, ERUPTED TOOTH OR EXPOSED ROOT (ELEVATION AND/OR FORCEPS REMOVAL) GALLBLADDER/EF TUBAL LIGATION HX 2006 ALLERGIES Penicillins MEDICATIONS Current Outpatient Medications Medication [...] during the encounter. Affect (more content not included)...[facility]07-08-2024 History of Present illness Narrative* Doris Driscoll APRN.CAR GREASER - 02/08/2024 4:09 PM EDT This is a 44 year old female who presents today with: Patient presents with: ER F/U: [facility] 02/05/24 Fall HISTORY OF PRESENT ILLNESS: Wanda Caal is a 44 year old female. Patient presents with: ER F/U: [facility] 02/05/24 Fall Fell backwards off a 4 [...] as needed for worsening/no improvement. LIBRADO Whiting/ LEVELER documented in this encounterTwin City Hospital06-24-2024 NoteHNO ID: [id number] Author: HILTON DOTY, DO Service: ? Author [...] this exam yearly. 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 Knows need for further weight loss. Is taking the qsymia and tolerating rx well. Would like to continue medication. Trying to continue healthy diet choices and exercise as well. she recently was able to see Field Staff at [employer] with benefit Mood, feels she is overall [...] still in obesity b (more content not included)...[facility]06-24-[facility]24 History of Present illness Narrative* Hilton Doty, - 01/25/2024 7:35 AM EDT CC: Wanda Caal is a 43 year old female who presents to the office for follow up HPI: Inflammatory polyarthropathy, no signs of retinal concerns for her plaquenil monitoring. states haddilated eye exam by Dr. Genao in May 2023 last, has this exam yearly. 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 Knows need for further weight loss. Is taking the qsymia and tolerating rx well. Would like to continue medication. Trying to continue healthy diet choices and exercise as well. she recently was able to see Field Staff at [employer] with benefit Mood, feels she is overall [...] agreed with the plan. Hilton Doty DO [address] [place] [address] documented in this encounterTwin City Hospital06-19-2024 Instructions* Patient Instructions* Hilton Doty DO - 01/20/2024 7:37 PM EDT Magnesium citrate 400-500 mg in the evening documented in this encounterTwin City Hospital05-30-2024 Telephone encounter Note * Telephone Encounter - Rox Knox LPN - 12/31/2023 7:25 AM EDT [facility]-10/21/23 Labs-09/02/23Jun-01/20/24 Rox Knox LPN [facility]05-30-2024 Miscellaneous Notes* Telephone Encounter - Rox Knox LPN - 12/31/2023 7:25 AM EDT [facility]-10/21/23 Labs-09/02/23Jun-01/20/24 Rox Knox LPN documented in this encounterTwin City Hospital05-30-2024 Telephone encounter Note * Telephone Encounter - Rox Knox LPN - 12/31/2023 7:24 AM EDT [facility]-10/21/23 Labs-09/02/23Jun-01/20/24 Rox Knox LPN [facility]05-30-2024 Miscellaneous Notes* Telephone Encounter - Rox Knox LPN - 12/31/2023 7:24 AM EDT [facility]-10/21/23 Labs-09/02/23Jun-01/20/24 Rox Knox LPN documented in this encounterTwin City Hospital05-30-2024 Telephone encounter Note * Telephone Encounter - Rox Knox LPN - 12/31/2023 7:23 AM EDT [facility]-10/21/23 Labs-09/02/23Jun-01/20/24 Rox Knox LPN [facility]05-30-2024 Miscellaneous Notes* Telephone Encounter - Rox Knox LPN - 12/31/2023 7:23 AM EDT [facility]-10/21/23 Labs-09/02/23 NOV-01/20/24 Rox Knox LPN documented in this encounterTwin City Hospital03-21-2024 Miscellaneous Notes* Telephone Encounter - Ariana Schwarz Ma - 10/22/2023 9:44 AM EDT Orders/Referrals updated in [facility] for [facility]. Referral to [facility] Nutrition faxed to [phone]. Sent most recent OV notes, referral and facesheet. Mamm/US order faxed to [facility] at [phone] with facesheet. Pt sent [employer] message notifying her that this this has been completed. Made pt aware she would need to contact [facility] to setup Imaging, but Nutrition should contact her to setup appt. To update officeif any issues. Ariana Schwarz Ma * Telephone Encounter - Hilton Doty DO - 10/21/2023 9:17 PM EDT Please fax orders to [facility] for breast US, mammogram as well as nutrition referral. These were ordered today Hilton Doty DO documented in this encounterTwin City Hospital03-20-2024 History of Present illness Narrative* Hilton [...] getting used to a new job at [employer] over the last 7-8 months as [...] aswell. would also be interested in seeing Field Staff at [employer] PAST MEDICAL HISTORY Diagnosis Date MAXIM positive [...] breast 6 months from previous testing - [facility] DIAGNOSTIC RIGHT - US BREAST LTD RIGHT [...] plan. See patient instructions. Hilton Doty DO [address] [place] [address] documented in this encounterTwin City Hospital03-04-2024 Miscellaneous Notes* Telephone Encounter - Leo Méndez APRN.VEGETABLE VENDOR - 10/05/2023 2:36 PM EST I called [...] patients eye exam and plaquenil. Please call [phone] documented in this encounterTwin City Hospital02-13-2024 Miscellaneous Notes* Telephone Encounter - Char Valencia LPN - 09/15/2023 4:18 PM EST Pt. [...] Doty, as it relates to Lupus. Patient's SCREEN ROLLER mentioned to her that patients with Lupus [...] advise patient. Thank you. documented in this encounterTwin City Hospital02-13-2024 Nurse Note* Rodolfo Salas MA - 09/15/2023 8:28 AM EST PLQ eye exam done on 05/26/2023. No evidence of PLQ toxicity. Report sent for scanning. Rodolfo Salas MA documented in this encounterTwin City Hospital02-12-2024 Miscellaneous Notes* Telephone Encounter - Rodolfo [...] to pursue a hysterectomy further with her SCREEN ROLLER. Thanks, Leo Méndez APRN.FEI * Telephone Encounter - Jo-Ann Roque - 09/14/2023 3:06 PM EST Patient has been plagued by female issues. She is at a point where she needs to make a decision on whether to go forward with hysterectomy (partial or complete) and is seeking input from Dr Conner as it relates to Lupus. Patient's SCREEN ROLLER mentioned to her that patients with Lupus [...] to have results faxed. documented in this encounterTwin City Hospital02-01-2024 Nurse Note* Rodolfo Salas MA - 09/03/2023 9:36 AM EST Labs done on 09/02/2023. Report given to provider for review. TEST RESULTS RANGE WBC 8.7 4.4-11.0 HGB 14.7 12.0-15.0 HCT 44.5 37-47 PLT 301 150-450 AST 12 15-37 ALT 28 13-56 CR 0.90 0.55-1.02 documented in this encounterTwin City Hospital01-10-2024 NotePap Smear Specimen AdequacyJanuary 2023 1:46pmComment.Satisfactory for evaluation. Endocervical and/or squamous metaplasticcells (endocervical component)are present.[facility] INTER[facility]ACED A#[id number] Deaconess Hospital on above: Satisfactory for evaluation. Endocervical and/or squamous metaplasticcells (endocervical component)are present.08-12-2023 NotePap Smear Specimen Adequacy August 12, 2023 1:46pmComment.Satisfactory for evaluation. Endocervical and/or squamous metaplasticcells (endocervical component)are present.[facility] INTERFACED A#[id number] Medical Specialty Hospital - Southeast OhioCombaraga county [facility] hospital on above:Satisfactory for evaluation. Endocervical and/or squamous metaplasticcells (endocervical component)are present.08-12-2023 NotePap Smear Specimen AdequacyJanuary 2023 2:46pmComment.Satisfactory for evaluation. Endocervical and/or squamous metaplasticcells (endocervical component)are present.[facility] INTERFACED A#[id number] Community HospitalComment on above:Satisfactory for evaluation. Endocervical and/or squamous metaplasticcells (endocervical component)are present.07-10-2023 Miscellaneous Notes* Telephone Encounter - Jaja Motley MA - 07/10/2023 12:54 PM EST Patient has been identified by name and date of : Yes RX INSTRUCTIONS: Patient aware RX will be sent to pharmacy. No need to notify patient. PLQ eye exam done on [facility]20[facility]. No evidence of PLQtoxicity. Patient is notified to have PLQ eye exam done EROS and verbalized understanding. Fax results to [phone]. LAST APPOINTMENT: 08/28/2022 UPCOMING APPOINTMENT: 09/02/2023 LABS: [...] notify patient. Norma Garcia documented in this encounterTwin City Hospital11-14-2023 Miscellaneous Notes* Telephone Encounter - Rox [...] for biopsy of the right breast Hilton Doty DO * Telephone Encounter - Winnie Monge LPN - 06/15/2023 4:22 PM EST Pt is calling to see if pcp was able to view mammogram and US results. Pt reports she is trying to be calm but is having a hard time not to be nervous. Winnie Monge LPN documented in this encounterTwin City Hospital11-01-2023 History of Present illness Narrative* Hilton [...] getting used to a new job at [employer] as well. Obesity, weight at 200 [...] with supplements or by diet (goal of 6662-0236 mg/day - [facility] SCREENING 8. Dyslipidemia - ICD9: 272.4, [...] plan. See patient instructions. Hilton Doty DO [address] [place] [address] documented in this encounterTwin City Hospital10-02-2023 Miscellaneous Notes* Telephone Encounter - Huma [...] and advise. Ngoc Garcia documented in this encounterTwin City Hospital09-12-2023 Miscellaneous Notes* Telephone Encounter - Rodolfo [...] month.She cannot afford an uncovered appointment, owing [facility] $1000 already. She cancelled theappointment with Dr Junior on 04/16/23 for these reasons. She asks that her medication hydrOXYchloroQUINE (PLAQUENIL) 200 mg tablet be sent to [facility], [address]. Patient has only 4 or 5 tablets left. She asked for a 90-day prescription. She expects to be insured May 03, 2023. She says that she is doing really well and that she checks in with her PCP regularly. Patient will reschedule when she know whether or not [facility] is in what will be her new insurance through [facility]. If Dr Junior requires that she have labs, patient said that she canget them done at [facility] at a reduced cost. Please assist. documented in this encounterTwin City Hospital09-01-2023 Miscellaneous Notes* Telephone Encounter - Frank [...] 04/16/2021 19 Please advise. Thank you. Frank Obando, RN documented in this encounterTwin City Hospital08-01-2023 History of Present illness Narrative* Hilton [...] months ago. 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 Leg edema has improved, has diuretic to take as needed HPL, making diet changes as above and weight loss. Undifferentiated connective tissue disease, sicca syndrome, Inflammatory arthropathy, taking Plaquenil, will be following up with her Personal Computer Network Engineer. PAST MEDICAL HISTORY Diagnosis Date MAXIM positive [...] - ICD9: 714.9, ICD10: M06.4 F/u with Personal Computer Network Engineer, chronic, stable. 3. Obesity, Class I, BMI [...] plan. See patient instructions. Hilton Doty DO [address] [place] [address] documented in this encounterTwin City Hospital06-28-2023 Miscellaneous Notes* Telephone Encounter - Char Valencia LPN - 01/28/2023 9:45 AM EDT Pt. informed Dr. Doty is on Vacation. Message left. * Telephone Encounter - Chikis Sánchez Pss - 01/27/2023 3:06 PM EDT Patient insurance is changing after February 07. Is there any way patient cn be squeezed in this week ornext? Please advise and call patient. documented in this encounterTwin City Hospital06-06-2023 Miscellaneous Notes* Telephone Encounter - Jaja Motley MA - 01/06/2023 11:39 AM EDT Patient has been identified by name and date of : Yes RX INSTRUCTIONS: Patient aware RX will be sent to pharmacy. No need to notify patient. PLQ eye exam done on 05[facility]20/2022 at [facility]. No evidence of PLQtoxicity. LAST [...] stop taking it. Script to go to [employer] mail order documented in this encounterTwin City Hospital04-27-2023 History of Present illness Narrative* Hilton Doty, DO - 11/27/2022 9:32 AM EDT CC: [...] months ago. 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 Undifferentiated connective tissue disease, sicca syndrome, Inflammatory arthropathy, taking Plaquenil, will be following up with her Personal Computer Network Engineer. PAST MEDICAL HISTORY Diagnosis Date MAXIM positive [...] plan. See patient instructions. Hilton Doty DO [address] [place] [address] documented [facility] Instructions* Patient Instructions* Hilton Doty DO - 11/24/2022 2:47 PM EDT Fresca soda Or Gingerale without sugar or Sprite PRIME drinks- strawberry watermelon is good documented in [facility] encounterT[facility]03-28-[facility] History of Present illness Narrative* Hilton [...] months ago. She is now working for [employer] and quit her previous job due to [...] Plaquenil, will be following up with her Personal Computer Network Engineer. PAST MEDICAL HISTORY Diagnosis Date MAXIM positive [...] plan. See patient instructions. Hilton Doty DO [address] [place] [address] documented in this encounterTwin City [facility]03-24-2023 Instructions* Patient Instructions* Hilton Doty DO - 10/24/2022 12:17 PM EDT Magnesium supplement at supper 400-500 mg Can consider doing magnesium glycinate, magnesium gluconate supplement for the kind of magnesium documented in this encounterTwin City [facility]03-09-2023 Miscellaneous Notes* Telephone Encounter - Lois Hol - 10/09/2022 10:48 AM EST Patient scheduled Lois Hol * Telephone Encounter - Hilton Dtoy DO - 10/08/2022 9:44 PM EST Please make patient follow up appt with me on 10/15 (Thursday) at 720 pm, she is aware of appt timeand date Hilton Doty DO documented in this encounterTwin City [facility]01-26-2023 Instructions* Patient Instructions* Priscilla Junior MD [...] up in 6 months documented in this encounterT[facility]01-26-[facility]23 History of Present illness Narrative* Priscilla Junior MD - 08/28/2022 11:59 AM EST Images from the original note were not included. Rheumatology FOLLOW UP VISIT Date of Service: 08/28/2022 Patient: Wanda Caal Medical Record: [id number] Primary Care Physician: Hilton Doty DO Last [...] had been maintained on hydroxychloroquine by previous geosciences professor [facility] and was doing well. Shehas [...] dactylitis, enthesitis, synovitis, tendinitis LABS Reviewed in [facility], notable for: CBC Latest Ref Rng & [...] DNA ANTIBODY W/CONFIRMATION <30 IU/mL - <12 PATTERN ASSEMBLER ANTIBODY <1.0 AI - 0.2 SSA ANTIBODY <1.0 AI - <0.2 SSB ANTIBODY <1.0 AI - 0.5 MELISSA-1 ANTIBODY, IGG <1.0 AI - <0.2 RIBOSOMAL PATTERN ASSEMBLER <1.0 AI - <0.2 SM ANTIBODY <1.0 [...] - - 0.1 - IMAGING Reviewed in [facility], notable for: No new imaging ASSESSMENT Wanda [...] which included preparing to see the patient, [id number] patient care, completing clinical documentation, obtaining and/or reviewing separately obtained history, performing a medically appropriate examination, counseling and educating the pat ient/family/caregiver, and ordering medications, tests, or procedures. This note was partially generated with the assistance of [employer] voice recognition software. An attempt was made to correct any dictation errors however there may be some incorrect words, spellings, and punctuation. Priscilla Junior MD Rheumatology Date: August 28, 2022 Time: 11:59 AM documented in this encounterTwin City Hospital12-28-2022 Miscellaneous Notes* Telephone Encounter - Char Valencia LPN - 07/30/2022 3:14 PM EST Pt. [...] MC message turned into TE. Wanda Caal [facility] My Chart Rx Pool (supporting Hilton Doty DO) 13 hours ago (9:45 PM) KH [...] verified. Dasia Pedroza MA documented in this encounterTwin City Hospital12-27-2022 Miscellaneous Notes* Telephone Encounter - Dasia Pedroza MA - 07/29/2022 11:05 AM EST message turned into TE. 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 PAST MEDICAL HISTORY Diagnosis Date MAXIM positive [...] ICD10: M06.4 - rx refilled, f/u with Personal Computer Network Engineer - QSYMIA 11.25 MG-69 MG CAPSULE, EXTENDED [...] chronic - CHLORTHALIDONE 25 MG TABLET Hilton Doty DO To ER if develops chest pain, shortness of breath, or severe worsening of symptoms. Discussed risks, benefits, alternatives, and potential side effects of medications. Patient expressed understanding and agreed with the plan. Hilton Doty DO [address] [place] [address] documented in this encounterTwin City Hospital11-23-2022 Nurse Note* Rodolfo Salas MA - 06/25/2022 10:19 AM EST PLQ eye exam done on 05/20/2022 at [facility], [facility]. No evidence of PLQtoxicity. Report sent for scanning. Rodolfo Salas MA documented in this encounterTwin City Hospital10-18-2022 Miscellaneous Notes* Telephone Encounter - Ayde Antonio Ma - 05/20/2022 12:39 PM EDT Last office visit: 04/23/22 F/u scheduled: 07/23/22 Ayde Antonio Ma documented in this encounterTwin City Hospital09-21-2022 History of Present illness Narrative* Hilton Doty, - 04/23/2022 10:22 PM EDT CC: Wanda [...] rx is complete. Has been working with Field Staff specialist at [employer] in the Medical nutrition therapy department and [...] are also improving. She has met with Field Staff and she has been keeping track of food intake daily. She isalso walking more for exercise and wants to be more diligent with the exercise as well. Is excited to see if this helps her inflammatory arthritis- is taking her medications per Dr. 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 Hilton Doty, DO Return if no improvement. Follow up with Hilton Doty DO. To ER if develops chest pain, shortness of breath Discussed risks, benefits, alternatives, and potential side effects of medications. Patient/Guardian expressed understanding and agreed with the plan. See patient instructions. Hilton Doty DO [address] [place] [address] documented in this encounterTwin City Hospital07-13-2022 History of Present illness Narrative* Delphine Floyd APRN.VEGETABLE VENDOR - 02/12/2022 4:01 PM EDT Wanda is [...] L2 SAB1 IAB0 Ectopic0 Multiple0 Live Births0 Toy Assembler History LMP: 12/29/2020, IUD Age at Menarche: Age at First : Age at Menopause: Toy Assembler History Comments: Sexual Activity: Yes; Male; tubal [...] external genitalia normal, normal Bartholin's glands, urethra, Eyota's glands, no vulvar lesions, no cervical lesions, [...] results. Follow- up as needed. Delphine Floyd APRN.FEI 2) Contraception: IUD. Contraceptive options reviewed and information provided. 3) STD screening: Declined STD check. 4) Follow up one year or sooner as needed Delphine Flody APRN.VEGETABLE VENDOR documented in this encounterTwin City Hospital07-02-2022 Miscellaneous Notes* Telephone Encounter - Gina Bermudezchachaluci OLU - 02/01/2022 11:33 AM EDT Patient calling her came home with paper rx for the QSYMIA and she said rx has to go to [facility], [facility]. Pending rx to file. Please advise Patient [...] Provider: HILTON DOTY DO documented in this encounterTwin City Hospital06-20-2022 Instructions* Patient Instructions* Hilton Doty DO - 01/20/2022 9:46 AM EDT Voltaren 1% gel pea sized amount 1-3 times a day (AM and PM) Can use a thumb spica splint at bed and as needed if thumb worsens. documented in this encounterTwin City Hospital06-20-2022 History of Present illness Narrative* Hilton [...] rx is complete. Has been working with Field Staff specialist at [employer] in the Medical nutrition therapy department and [...] are also improving. She has met with Field Staff and she has been keeping track of food intake daily. She isalso walking more for exercise and wants to be more diligent with the exercise as well. Is excited to see if this helps her inflammatory arthritis- is taking her medications per Dr. 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 HgbA1c greater or equal to 6.5% is considered diagnostic of diabetes. 10/23/2018 5.3 4.3 - 5.6 % Final Comment: [place] [employer] guidelines indicate that patients with [...] ICD9: 714.9, ICD10: M06.4 - f/u with Personal Computer Network Engineer, leg edema has improved. 6. Bilateral leg [...] agreed with the plan. Hilton Doty DO [address] [place] [address] documented in this encounterTwin City Hospital06-07-2022 Miscellaneous Notes* Telephone Encounter - Hilton [...] AM EDT Please send medication to [facility]. Patient asking for 90 day * Telephone Encounter - Dafne Marks - 01/06/2022 8:17 AM EDT Patient calling today to changing her pharmacy for medication chlorthalidone (HYGROTON) 25 mg tablet. Please send medication to documented in this encounterTwin City Hospital05-23-2022 Miscellaneous Notes* Telephone Encounter - Rox Knox LPN - 12/23/2021 8:03 AM EDT Patient phones requesting refills as follows: Pending Prescriptions Disp Refills CHLORTHALIDONE 25 MG TABLET 90 tablet 0 Sig: TAKE 1 TABLET BY MOUTH ONCE DAILY NEEDED FOR EDEMA MAZIN: Yes Monica-09/23/21 Labs-04/16/21 NOV-01/20/22 Please review and advise. Rox Knox LPN documented in this encounterTwin City Hospital05-13-2022 Miscellaneous Notes* Telephone Encounter - Jaja [...] Motley MA * Telephone Encounter - Norma Garcia - 12/13/2021 2:23 PM EDT Patient wanted to know if Dr. Conner would fill her Plaquenil until she is able to be seen. Please advice [facility] Diagnosis Inflammatory arthritis Unspecified inflammatory polyarthropathy documented in this encounter [facility]* Diagnosis Dyslipidemia- Primary Other and unspecified hyperlipidemia Encounter for screening mammogram for malignant neoplasm of breast Other screening mammogram LIVIA (generalized anxiety disorder) Generalized anxiety disorder Eczematous dermatitis of upper eyelids of both eyes Inflammatory polyarthropathy (HCC) Unspecified inflammatory polyarthropathy Bilateral leg edema Edema Obesity, Class I, BMI 30-34.9 Obesity, unspecified documented in this encounter [facility]* Diagnosis Obesity, Class III, BMI 40-49.9 (morbid obesity) (HCC) Morbid obesity documented [facility]* Diagnosis Encounter for gynecological examination with abnormal finding- Primary Routine gynecological examination Pain due to intrauterine contraceptive device (IUD), initial encounter ([facility]) Postcoital bleeding Vaginal discharge Leukorrhea, not specified as infective documented in this encounter [facility]* Diagnosis LIVIA (generalized anxiety disorder)- Primary Generalized anxiety disorder Obesity, Class III, BMI 40-49.9 (morbid obesity) (HCC) Morbid obesity Inflammatory polyarthropathy (HCC) Unspecified inflammatory polyarthropathy documented in this encounter [facility]* Diagnosis Dyslipidemia- Primary Other and unspecified hyperlipidemia LIVIA (generalized anxiety disorder) Generalized anxiety disorder Inflammatory polyarthropathy (HCC) Unspecified inflammatory polyarthropathy Obesity, Class I, BMI 30-34.9 Obesity, unspecified Rosacea Bilateral leg edema Edema documented in this encounter [facility]* Diagnosis Inflammatory polyarthropathy (HCC) Unspecified inflammatory polyarthropathy Dyslipidemia Other and unspecified hyperlipidemia Obesity, Class I, BMI 30-34.9 Obesity, unspecified documented in this encounter [facility]* Diagnosis Undifferentiated connective tissue disease (HCC)- Primary Unspecified diffuse connective tissue disease Inflammatory arthritis Unspecified inflammatory polyarthropathy Encounter for long-term (current) use of medications Encounter for long-term (current) use of other medications Facial rash Rash and other nonspecific skin eruption Sicca syndrome (HCC) Sicca syndrome documented in this encounter [facility]* Diagnosis Dyslipidemia- Primary Other and unspecified hyperlipidemia Inflammatory polyarthropathy (HCC) Unspecified inflammatory polyarthropathy Obesity, Class I, BMI 30-34.9 Obesity, unspecified Hot flashes Symptomatic menopausal or female climacteric states Bilateral leg edema Edema documented in this encounter [facility]* Diagnosis LIVIA (generalized anxiety disorder)- Primary Generalized anxiety disorder Inflammatory polyarthropathy (HCC) Unspecified inflammatory polyarthropathy Dyslipidemia Other and unspecified hyperlipidemia Obesity, Class I, BMI 30-34.9 Obesity, unspecified Raynaud's phenomenon without gangrene Situational depression Adjustment disorder with depressed mood documented in this encounter [facility]* Diagnosis Encounter for screening mammogram for breast cancer documented in this encounter [facility]* Diagnosis Inflammatory arthritis Unspecified inflammatory polyarthropathy documented in this encounter [facility]* Diagnosis Dyslipidemia- Primary Other and unspecified hyperlipidemia Inflammatory polyarthropathy (HCC) Unspecified inflammatory polyarthropathy Obesity, Class I, BMI 30-34.9 Obesity, unspecified LIVIA (generalized anxiety disorder) Generalized anxiety disorder Raynaud's phenomenon without gangrene Bilateral leg edema Edema Vitamin D deficiency Unspecified vitamin D deficiency [facility]* Diagnosis Bilateral leg edema Edema documented in this encounter [facility]* Diagnosis Inflammatory arthritis Unspecified inflammatory polyarthropathy documented in this encounter [facility]* Diagnosis LIVIA (generalized anxiety disorder) Generalized anxiety disorder Situational depression Adjustment disorder with depressed mood documented in this encounter [facility]* Diagnosis LIVIA (generalized anxiety disorder)- Primary [...] with other complications documented in this encounter [facility]* Diagnosis Onset Date Resolution Status Abnormal uterine bleeding (AUB) acute Dysmenorrhea chronic Menorrhagia chronic Encounter for IUD removal no neactive [facility] [place] Work Phone: Evaluation note* Diagnosis Inflammatory arthritis Unspecified inflammatory polyarthropathy documented in this encounter [facility]* Diagnosis Onset Date Resolution Status Abnormal uterine bleeding (AUB) acute Dysmenorrhea chronic Menorrhagia chronic Encounter for IUD removal no neactive Abnormal uterine bleeding (AUB) acute Fibroids acute Dysmenorrhea chronic Menorrhagia chronic [facility] Work Phone: Evaluation note* Diagnosis Onset Date Resolution Status Abnormal uterine bleeding (AUB) acute Dysmenorrhea chronic Menorrhagia chronic Encounter for IUD removal no neactive Abnormal uterine bleeding (AUB) acute Fibroids acute Dysmenorrhea chronic Menorrhagia chronic Cervical high risk HPV (leonard n papillomavirus) test positive acute Menorrhagia chronic [facility] Work Phone: Evaluation note* Diagnosis Inflammatory polyarthropathy (HCC)- Primary Unspecified inflammatory polyarthropathy Abnormal mammogram of right breast Obesity, Class I, BMI 30-34.9 Obesity, unspecified Inflammatory arthritis Unspecified inflammatory polyarthropathy Dyslipidemia Other and unspecified hyperlipidemia LIVIA (generalized anxiety disorder) Generalized anxiety disorder Raynaud's phenomenon without gangrene Vitamin D deficiency Unspecified vitamin D deficiency Rosacea [facility]* Diagnosis Onset Date Resolution Status Abnormal [...] posure to other viral communicable disease acute [facility] Work Phone: Evaluation note* Diagnosis Bilateral leg edema Edema [facility]* Diagnosis Situational insomnia Transient disorder of initiating or maintaining sleep [facility]* Diagnosis Dyslipidemia- Primary Other and unspecified hyperlipidemia LIVIA (generalized anxiety disorder) Generalized anxiety disorder Inflammatory polyarthropathy (HCC) Unspecified inflammatory polyarthropathy Obesity, Class I, BMI 30-34.9 Obesity, unspecified Bilateral leg edema Edema Vitamin D deficiency Unspecified vitamin D deficiency Situational depression Adjustment disorder with depressed mood [facility]* Diagnosis Lower thoracic back pain- Primary Acute low back pain with sciatica, sciatica laterality unspecified, unspecified back pain laterality Lower thoracic back pain Acute low back pain with sciatica, sciatica laterality unspecified, unspecified back pain laterality documented [facility] this [facility]* Diagnosis Inflammatory arthritis Unspecified inflammatory polyarthropathy Bilateral leg edema Edema LIVIA (generalized anxiety disorder) Generalized anxiety disorder [facility] this [facility]* Diagnosis Lower thoracic back pain Acute low back pain with sciatica, sciatica laterality unspecified, unspecified back pain laterality [facility] this [facility]* Diagnosis Nausea- Primary Nausea alone SOB (shortness of breath) Shortness of breath Hypokalemia Hypopotassemia Fatigue, unspecified type Inflammatory arthritis Unspecified inflammatory polyarthropathy Bilateral leg edema Edema Situational depression Adjustment disorder with depressed mood Obesity, Class I, BMI 30-34.9 Obesity, unspecified Inflammatory polyarthropathy (HCC) Unspecified inflammatory polyarthropathy Dyslipidemia Other and unspecified hyperlipidemia documented in this encounter [facility] note* Diagnosis Hypokalemia- Primary Hypopotassemia documented in this encounter [facility] note* Diagnosis Encounter for screening mammogram for breast cancer documented in this [facility]* Diagnosis Inflammatory arthritis Unspecified inflammatory polyarthropathy documented in this [facility]* Diagnosis Varicose veins of both lower extremities with complications- Primary Hypokalemia Hypopotassemia LIVIA (generalized anxiety disorder) Generalized anxiety disorder Situational depression Adjustment disorder with depressed mood Obesity, Class I, BMI 30-34.9 Obesity, unspecified Inflammatory polyarthropathy (HCC) Unspecified inflammatory polyarthropathy Dyslipidemia Other and unspecified hyperlipidemia Inflammatory arthritis Unspecified inflammatory polyarthropathy Perimenopausal symptoms Symptomatic menopausal or female climacteric states documented in this [facility]* Diagnosis Bilateral leg edema Edema documented in this [facility]* Diagnosis Bilateral leg edema- Primary Edema SOB (shortness of breath) Shortness of breath Obesity, Class I, BMI 30-34.9 Obesity, unspecified documented in this [facility]* Diagnosis Bilateral leg edema- Primary Edema SOB (shortness of breath) Shortness of breath documented in this [facility]* Diagnosis LIVIA (generalized anxiety disorder) Generalized anxiety disorder documented in this [facility]* Diagnosis SOB (shortness of breath)- Primary [...] phenomenon without gangrene [facility] Diagnosis LIVIA (generalized anxiety disorder)- Primary Generalized anxiety disorder Obesity, Class I, BMI 30-34.9 Obesity, unspecified Inflammatory polyarthropathy (HCC) Unspecified inflammatory polyarthropathy Dyslipidemia Other and unspecified hyperlipidemia Inflammatory arthritis Unspecified inflammatory polyarthropathy Perimenopausal symptoms Symptomatic menopausal or female climacteric states SOB (shortness of breath) Shortness of breath Varicose veins of both lower extremities with complications documented in this encounter [facility] Discharge instructions Additional Instructions Cardiac workup negative to ED. This included her D-dimer. Chest x-ray negative. Follow-up with your doctor for further testing.[facility] Work Phone: [facility] for referral (narrative)* Diagnostic Procedure Only (Routine) - Pending Review Specialty Diagnoses / Procedures Referred By Cristo xiao Referred To Contact [facility] Diagnoses Encounter for screening mammogram for malignant neoplasm of breast Procedures CINDY SCREENING W KYMBERLY SCREENING DIGITAL BREAST TOMOSYNTHESIS BI SCREENING MAMMOGRAPHY BI 2-VIEW BREAST INC Hilton Nieves DO [address] [place] [address] [facility] [place] [address] Referral ID Status Reason Start Date Expiration Date Visits Requested Visits Authorized [id number] Pending Review Auto-Generat ed Referral 07/03/2022 02/19/2023 1 1 [facility] for referral (narrative)* Diagnostic Procedure Only (Routine) - Pending Review Specialty Diagnoses / Procedures Referred By Cristo xiao Referred To Contact [facility] Diagnoses Pain due to intrauterine contraceptive device (IUD), initial encounter ([facility]) Postcoital bleeding Procedures PELVIC US WHI US PELVIC NONOBSTETRIC REAL-TIME IMAGE COMPLETE Delphine Floyd APRN.CNP [address] [address] [facility] [address] [place] [address] Referral ID Status Reason Start Date Expiration Date Visits Requested Visits Authorized [id number] Pending Review Auto-Generat ed Referral 02/12/2022 02/12/2023 1 1 [facility] for referral (narrative)* Diagnostic Procedure Only (Routine) - Pending Review Specialty Diagnoses / Procedures Referred By Thereseac t Referred To Contact [facility] Diagnoses Encounter for screening mammogram for breast cancer Procedures CINDY SCREENING SCREENING MAMMOGRAPHY BI 2-VIEW BREAST INC CAD Hilton Doty DO [address] [place] [address] [facility] [address] [place] [address] Referral ID Status Reason Start Date Expiration Date Visits Requested Visits Authorized [id number] Pending Review Auto-Generat ed Referral 12/24/2022 01/23/2024 1 1 [facility] for referral (narrative)* Diagnostic Procedure Only (Urgent) - Closed Specialty Diagnoses / Procedures Referred By Cristo t Referred To Contact XR IMAGING Diagnoses Lower thoracic back pain Acute low back pain with sciatica, sciatica laterality unspecified, unspecified back pain laterality Procedures XR LUMBAR GENERAL 3V AP/LAT/L5-S1 RADEX SPINE LUMBOSACRAL 2/3 VIEWS Doris Driscoll APRN.[employer] [address] [place] [address] [place] [address] Referral ID Status Reason Start Date Expiration Date V isits Requested Visits Authorized [id number] Closed Auto-Generate d Referral 02/08/2024 03/09/2025 1 1 * Diagnostic Procedure Only (Urgent) - Closed Specialty Diagnoses / Procedures Referred By Contac t Referred To Contact XR IMAGING Diagnoses Lower thoracic back pain Acute low back pain with sciatica, sciatica laterality unspecified, unspecified back pain laterality Procedures XR THORACIC GENERAL 3V AP/LAT/SWIMMERS RADEX SPINE THORACIC 3 VIEWS Doris Driscoll APRN.[employer] [address] [place] [address] [place] [address] Referral ID Status Reason Start Date Expiration Date V isits Requested Visits Authorized [id number] Closed Auto-Generate d Referral 02/08/2024 03/09/2025 1 1 [facility] for referral (narrative)* Diagnostic Procedure Only (Urgent) - Closed Specialty Diagnoses / Procedures Referred By Contac t Referred To Contact XR IMAGING Diagnoses Lower thoracic back pain Acute low back pain with sciatica, sciatica laterality unspecified, unspecified back pain laterality Procedures XR LUMBAR GENERAL 3V AP/LAT/L5-S1 RADEX SPINE LUMBOSACRAL 2/3 VIEWS Doris Driscoll APRN.[employer]GET[employer]OR [address] [place] [address] [place] [address] Referral ID Status Reason Start Date Expiration Date V isits Requested Visits Authorized [id number] Closed Auto-Generate d Referral 02/08/2024 03/09/2025 1 1 * Diagnostic Procedure Only (Urgent) - Closed Specialty Diagnoses / Procedures Referred By Contac t Referred To Contact XR IMAGING Diagnoses Lower thoracic back pain Acute low back pain with sciatica, sciatica laterality unspecified, unspecified back pain laterality Procedures XR THORACIC GENERAL 3V AP/LAT/SWIMMERS RADEX SPINE THORACIC 3 VIEWS Doris Driscoll APRN.[employer] [address] [place] [address] [place] [address] Referral ID Status Reason Start Date Expiration Date V isits Requested Visits Authorized [id number] Closed Auto-Generate d Referral 02/08/2024 03/09/2025 1 1 [facility] for referral (narrative)* Diagnostic Procedure Only (Routine) - New Request Specialty Diagnoses / Procedures Referred By Cristo xiao Referred To Contact BR IMAGING Diagnoses Encounter for screening mammogram for breast cancer Procedures CINDY SCREENING W KYMBERLY SCREENING DIGITAL BREAST TOMOSYNTHESIS BI SCREENING MAMMOGRAPHY BI 2-VIEW BREAST INC CAD Hilton Doty, DO [address] [place] [address] [facility] [address] [place] [address] Referral ID Status Reason Start Date Expiration Date Visits Requested Visits Authorized [id number] New Request Auto-Generat ed Referral 05/11/2024 06/10/2025 1 1 [facility] for referral (narrative)No reason for referral [facility] Reason for visit Narrative* Diagnostic Procedure Only (Urgent) - Closed Specialty Diagnoses / Procedures Referred By Cristo xiao Referred To Contact XR IMAGING Diagnoses Lower thoracic back pain Acute low back pain with sciatica, sciatica laterality unspecified, unspecified back pain laterality Procedures XR LUMBAR GENERAL 3V AP/LAT/L5-S1 RADEX SPINE LUMBOSACRAL 2/3 VIEWS Doris Driscoll APRN.[employer]OR [address] [place] [address] [place] [address] Referral ID Status Reason Start Date Expiration Date V isits Requested Visits Authorized [id number] Closed Auto-Generate d Referral 02/08/2024 03/09/2025 1 1 [facility] Reason for Referral Specialty Diagnoses / Procedures Referred By Cristo xiao Referred To Contact Vascular Surgery Diagnoses Varicose veins of both lower extremities with pain Procedures CONSULT TO VASCULAR SURGERY OFFICE/OUTPATIENT NEW HIGH MDM 60-74 MINUTES Hilton Doty DO [address] [place] [address] Referral ID Status Reason Start Date Expiration Date Visits Requested Visits Authorized [id number] Authorized PCP Requested Referral 06/03/2023 06/02/2024 1 1 Specialty Diagnoses / Procedures Referred By Contac t Referred To Contact BR IMAGING Diagnoses Encounter for screening mammogram for malignant neoplasm of breast Procedures CINDY SCREENING SCREENING MAMMOGRAPHY BI 2-VIEW BREAST INC CAD Hilton Doty, DO [address] [place] [address] [facility] [address] [facility] [place] [address] Referral ID Status Reason Start Date Expiration Date Visits Requested Visits Authorized [id number] Pending Review Auto-Generat ed Referral 06/03/2023 07/02/2024 1 1 Specialty Diagnoses / Procedures Referred By Contac t Referred To Contact Nutrition Diagnoses Inflammatory polyarthropathy (HCC) Obesity, Class III, BMI 40-49.9 (morbid obesity) (HCC) Procedures CONSULT TO NUTRITION THERAPY MEDICAL NUTRITION ASSMT&IVNTJ INDIV EACH 15 SD MEDICAL NUTRITION ASSMT&IVNTJ INDIV EACH 15 SD MEDICAL NUTRITION ASSMT&IVNTJ INDIV EACH 15 SD MEDICAL NUTRITION ASSMT&IVNTJ INDIV EACH 15 SD Hilton Doty, DO [address] [place] [address] Referral ID Status Reason Start Date Expiration Date Visits Requested Visits Authorized [id number] Authorized PCP Requested Referral 06/03/2023 06/02/2024 1 1 Specialty Diagnoses / Procedures Referred By Contac t Referred To Contact Nutrition Diagnoses Inflammatory polyarthropathy (HCC) Obesity, Class I, BMI 30-34.9 Procedures CONSULT TO NUTRITION THERAPY MEDICAL NUTRITION ASSMT&IVNTJ INDIV EACH 15 SD Hilton Doty, DO [address] [place] [address] Referral ID Status Reason Start Date Expiration Date Visits Requested Visits Authorized [id number] Authorized PCP Requested Referral 10/21/2023 10/20/2024 1 4 Specialty Diagnoses / Procedures Referred By Thereseac t Referred To Contact BR IMAGING Diagnoses Abnormal mammogram of right breast Procedures US BREAST LTD RIGHT US BREAST UNI REAL TIME WITH IMAGE LIMITED Hilton Doty, DO [address] [place] [address] [facility] [address] [place] [address] Referral ID Status Reason Start Date Expiration Date Visits Requested Visits Authorized [id number] Pending Review Auto-Generat ed Referral 10/21/2023 11/19/2024 1 1 Specialty Diagnoses / Procedures Referred By Contac t Referred To Contact BR IMAGING Diagnoses Abnormal mammogram of right breast Procedures CINDY DIAGNOSTIC RIGHT DIAGNOSTIC MAMMOGRAPHY COMPUTER-AIDED DETCJ UNI Hilton Doty, DO [address] [place] [address] [facility] [address] [place] [address] Referral ID Status Reason Start Date Expiration Date Visits Requested Visits Authorized [id number] Pending Review Auto-Generat ed Referral 10/21/2023 11/19/2024 1 1 Specialty Diagnoses / Procedures Referred By Cristo t Referred To Contact Vascular Surgery Diagnoses Varicose veins of both lower extremities with complications Procedures CONSULT TO VASCULAR SURGERY OFFICE/OUTPATIENT [facility] MDM 60 MINUTES Hilton Doty, DO [address] [place] [address] Referral ID Status Reason Start Date Expiration Date Visits Requested Visits Authorized [id number] Authorized PCP Requested Referral 08/01/2025 1 1 Chief Complaint and Reason [...] MNT November 28, 2024 8:0 0am Annual (SCREEN ROLLER) December 12, 2024 9:20a m Reason for [...] MNT November 28, 2024 8:0 0am Annual (SCREEN ROLLER) December 12, 2024 9:20a m Discuss LLE, prior to procedure December 3:31pm Reason for Visit Admit Date Varicose veins of lower extremity Februa 2024 10:57am Varicose veins of lower extremity November 02, 2024 11:30am Encounter for routine gynecological exam ination December 12, 2024 9:20am Symptomatic varicose veins December 19 3:31pm Chief Complaint Admit Date LEG PAIN September 21, 2024 7:56am SCREENING September 26, 2024 7:59am SOB October 13, 2024 5:1 4pm LT LEG PAIN October 14, 2024 10: 48am SOB October 26, 2024 12: 40pm 8-12 WK FU November 02, 2024 11:3 0am SOB, WHEEZING November 10, 2024 6:3 1am MNT November 28, 2024 8:0 0am Annual (SCREEN ROLLER) December 12, 2024 9:20a m Discuss LLE, prior to procedure December 3:31pm SWELLING, LT LEG December 30, 2024 2:49p m MNT January 02, 2025 4:01p m Venous insufficiency (chronic) (peripher al) January 10, 2025 8:36am Venous insufficiency (chronic) (peripher al) January 10, 2025 12:10pm Reason for Visit Admit Date Varicose veins of lower extremity November 02, 2024 11:30am Encounter for routine gynecological exam ination December 12, 2024 9:20am Symptomatic varicose veins December 19 3:31pm Chief Complaint Admit Date LEG PAIN September 21, 2024 7:56am SCREENING September 26, 2024 7:59am SOB October 13, 2024 5:1 4pm LT LEG PAIN October 14, 2024 10: 48am SOB October 26, 2024 12: 40pm 8-12 WK FU November 02, 2024 11:3 0am SOB, WHEEZING November 10, 2024 6:3 1am MNT November 28, 2024 8:0 0am Annual (SCREEN ROLLER) December 12, 2024 9:20a m Discuss LLE, prior to procedure December 3:31pm SWELLING, LT LEG December 30, 2024 2:49p m MNT January 02, 2025 4:01p m Venous insufficiency (chronic) (peripher al) January 10, 2025 8:36am Venous insufficiency (chronic) (peripher al) January 10, 2025 12:10pm E-ORDER January 12, 2025 1:38 pm s/p IVC venogram DOS: 01/10/25January 7:58am Advance Directives No Advanced Directives Records Found Advance Directive Response Recorded Date/ Time Living Will No Ricardo 20th, 2 021 11:16am Power of Molder Offbearer No July 22, 2021 11:16am Advance Directive Response Recorded Date/ Time Living Will No September 25, 9:31am Power of Molder Offbearer No September 25, 2023 9:31am Advance Directive Response Recorded Date/ Time Living Will No October 13, 2024 7:03pm Power of Molder Offbearer No October 13 7:03pm Advance Directive Response Recorded Date/ Time Living Will No October 13, 2024 7:03pm Do you have a Healthcare Power of Molder Offbearer? No October 13, 2024 7:03pm Advance Directive Response Recorded Date/ Time Living Will No October 13, 2024 7:03pm Do you have a Healthcare Power of Molder Offbearer? No October 13, 2024 7:03pm Advance Directives on File No January 09, 2025 8:48am Living Will No January 10, 2025 9:01am Do you have a Healthcare Power of Molder Offbearer? No January 10, 2025 9:01am Advance Directives No January 10 9:01am Summary Purpose Family History No Family History Records FoundNo Family History Records Found Additional Source Comments Source Comments (unrecognize d section and content) In the event this informatio n is protected by the Federal Confidentiality of Alcohol and Drug Abuse Patient Records regulations: The Federal rules restrict any use of the information to criminally investigate or prosecute any alcohol or drug abuse patient.[facility] the event this information is protected by the Federal Confidentiality of Alcohol and Drug Abuse Patient Records regulations: The Federal rules restrict any use of the information to criminally investigate or prosecute any alcohol or drug abuse patient.[facility]In the event this information is protected by the Federal Confidentiality of Alcohol and Drug Abuse Patient Records regulations: The Federal rules restrict any use of the information to criminally investigate or prosecute any alcohol or drug abuse patient.[facility]In the event this information is protected by the Federal Confidentiality of Alcohol and Drug Abuse Patient Records regulations: The Federal rules restrict any use of the information to criminally investigate or prosecute any alcohol or drug abuse patient.[facility]In the event this information is protected by the Federal Confidentiality of Alcohol and Drug Abuse Patient Records regulations: The Federal rules restrict any use of the information to criminally investigate or prosecute any alcohol or drug abuse patient.[facility]In the event this information is protected by the Federal Confidentiality of Alcohol and Drug Abuse Patient Records regulations: The Federal rules restrict any use of the information to criminally investigate or prosecute any alcohol or drug abuse patient.[facility]In the event this information is protected by the Federal Confidentiality of Alcohol and Drug Abuse Patient Records regulations: The Federal rules restrict any use of the information to criminally investigate or prosecute any alcohol or drug abuse patient.[facility]In the event this information is protected by the Federal Confidentiality of Alcohol and Drug Abuse Patient Records regulations: The Federal rules restrict any use of the information to criminally investigate or prosecute any alcohol or drug abuse patient.[facility]In the event this information is protected by the Federal Confidentiality of Alcohol and Drug Abuse Patient Records regulations: The Federal rules restrict any use of the information to criminally investigate or prosecute any alcohol or drug abuse patient.[facility]In the event this information is protected by the Federal Confidentiality of Alcohol and Drug Abuse Patient Records regulations: The Federal rules restrict any use of the information to criminally investigate or prosecute any alcohol or drug abuse patient.[facility]In the event this information is protected by the Federal Confidentiality of Alcohol and Drug Abuse Patient Records regulations: The Federal rules restrict any use of the information to criminally investigate or prosecute any alcohol or drug abuse patient.[facility] HospitalIn the event this information is protected by the Federal Confidentiality of Alcohol and Drug Abuse Patient Records regulations: The Federal rules restrict any use of the information to criminally investigate or prosecute any alcohol or drug abuse patient.[facility]In the event this information is protected by the Federal Confidentiality of Alcohol and Drug Abuse Patient Records regulations: The Federal rules restrict any use of the information to criminally investigate or prosecute any alcohol or drug abuse patient.[facility]In the event this information is protected by the Federal Confidentiality of Alcohol and Drug Abuse Patient Records regulations: The Federal rules restrict any use of the information to criminally investigate or prosecute any alcohol or drug abuse patient.[facility]In the event this information is protected by the Federal Confidentiality of Alcohol and Drug Abuse Patient Records regulations: The Federal rules restrict any use of the information to criminally investigate or prosecute any alcohol or drug abuse patient.[facility] HospitalIn the event this information is protected by the Federal Confidentiality of Alcohol and Drug Abuse Patient Records regulations: The Federal rules restrict any use of the information to criminally investigate or prosecute any alcohol or drug abuse patient.[facility] HospitalIn the event this information is protected by the Federal Confidentiality of Alcohol and Drug Abuse Patient Records regulations: The Federal rules restrict any use of the information to criminally investigate or prosecute any alcohol or drug abuse patient.[facility] HospitalIn the event this information is protected by the Federal Confidentiality of Alcohol and Drug Abuse Patient Records regulations: The Federal rules restrict any use of the information to criminally investigate or prosecute any alcohol or drug abuse patient.[facility] HospitalIn the event this information is protected by the Federal Confidentiality of Alcohol and Drug Abuse Patient Records regulations: The Federal rules restrict any use of the information to criminally investigate or prosecute any alcohol or drug abuse patient.[facility] HospitalIn the event this information is protected by the Federal Confidentiality of Alcohol and Drug Abuse Patient Records regulations: The Federal rules restrict any use of the information to criminally investigate or prosecute any alcohol or drug abuse patient.[facility] HospitalIn the event this information is protected by the Federal Confidentiality of Alcohol and Drug Abuse Patient Records regulations: The Federal rules restrict any use of the information to criminally investigate or prosecute any alcohol or drug abuse patient.[facility] HospitalIn the event this information is protected by the Federal Confidentiality of Alcohol and Drug Abuse Patient Records regulations: The Federal rules restrict any use of the information to criminally investigate or prosecute any alcohol or drug abuse patient.[facility] HospitalIn the event this information is protected by the Federal Confidentiality of Alcohol and Drug Abuse Patient Records regulations: The Federal rules restrict any use of the information to criminally investigate or prosecute any alcohol or drug abuse patient.[facility] HospitalIn the event this information is protected by the Federal Confidentiality of Alcohol and Drug Abuse Patient Records regulations: The Federal rules restrict any use of the information to criminally investigate or prosecute any alcohol or drug abuse patient.[facility] HospitalIn the event this information is protected by the Federal Confidentiality of Alcohol and Drug Abuse Patient Records regulations: The Federal rules restrict any use of the information to criminally investigate or prosecute any alcohol or drug abuse patient.[facility] HospitalIn the event this information is protected by the Federal Confidentiality of Alcohol and Drug Abuse Patient Records regulations: The Federal rules restrict any use of the information to criminally investigate or prosecute any alcohol or drug abuse patient.[facility] HospitalIn the event this information is protected by the Federal Confidentiality of Alcohol and Drug Abuse Patient Records regulations: The Federal rules restrict any use of the information to criminally investigate or prosecute any alcohol or drug abuse patient.[facility] HospitalIn the event this information is protected by the Federal Confidentiality of Alcohol and Drug Abuse Patient Records regulations: The Federal rules restrict any use of the information to criminally investigate or prosecute any alcohol or drug abuse patient.[facility] HospitalIn the event this information is protected by the Federal Confidentiality of Alcohol and Drug Abuse Patient Records regulations: The Federal rules restrict any use of the information to criminally investigate or prosecute any alcohol or drug abuse patient.[facility] HospitalIn the event this information is protected by the Federal Confidentiality of Alcohol and Drug Abuse Patient Records regulations: The Federal rules restrict any use of the information to criminally investigate or prosecute any alcohol or drug abuse patient.[facility] HospitalIn the event this information is protected by the Federal Confidentiality of Alcohol and Drug Abuse Patient Records regulations: The Federal rules restrict any use of the information to criminally investigate or prosecute any alcohol or drug abuse patient.[facility] HospitalIn the event this information is protected by the Federal Confidentiality of Alcohol and Drug Abuse Patient Records regulations: The Federal rules restrict any use of the information to criminally investigate or prosecute any alcohol or drug abuse patient.[facility] HospitalIn the event this information is protected by the Federal Confidentiality of Alcohol and Drug Abuse Patient Records regulations: The Federal rules restrict any use of the information to criminally investigate or prosecute any alcohol or drug abuse patient.[facility] HospitalIn the event this information is protected by the Federal Confidentiality of Alcohol and Drug Abuse Patient Records regulations: The Federal rules restrict any use of the information to criminally investigate or prosecute any alcohol or drug abuse patient.[facility] HospitalIn the event this information is protected by the Federal Confidentiality of Alcohol and Drug Abuse Patient Records regulations: The Federal rules restrict any use of the information to criminally investigate or prosecute any alcohol or drug abuse patient.[facility] HospitalIn the event this information is protected by the Federal Confidentiality of Alcohol and Drug Abuse Patient Records regulations: The Federal rules restrict any use of the information to criminally investigate or prosecute any alcohol or drug abuse patient.[facility] HospitalIn the event this information is protected by the Federal Confidentiality of Alcohol and Drug Abuse Patient Records regulations: The Federal rules restrict any use of the information to criminally investigate or prosecute any alcohol or drug abuse patient.[facility] HospitalIn the event this information is protected by the Federal Confidentiality of Alcohol and Drug Abuse Patient Records regulations: The Federal rules restrict any use of the information to criminally investigate or prosecute any alcohol or drug abuse patient.[facility] HospitalIn the event this information is protected by the Federal Confidentiality of Alcohol and Drug Abuse Patient Records regulations: The Federal rules restrict any use of the information to criminally investigate or prosecute any alcohol or drug abuse patient.[facility] HospitalIn the event this information is protected by the Federal Confidentiality of Alcohol and Drug Abuse Patient Records regulations: The Federal rules restrict any use of the information to criminally investigate or prosecute any alcohol or drug abuse patient.[facility] HospitalIn the event this information is protected by the Federal Confidentiality of Alcohol and Drug Abuse Patient Records regulations: The Federal rules restrict any use of the information to criminally investigate or prosecute any alcohol or drug abuse patient.[facility] HospitalIn the event this information is protected by the Federal Confidentiality of Alcohol and Drug Abuse Patient Records regulations: The Federal rules restrict any use of the information to criminally investigate or prosecute any alcohol or drug abuse patient.[facility] HospitalIn the event this information is protected by the Federal Confidentiality of Alcohol and Drug Abuse Patient Records regulations: The Federal rules restrict any use of the information to criminally investigate or prosecute any alcohol or drug abuse patient.[facility] HospitalIn the event this information is protected by the Federal Confidentiality of Alcohol and Drug Abuse Patient Records regulations: The Federal rules restrict any use of the information to criminally investigate or prosecute any alcohol or drug abuse patient.[facility] HospitalIn the event this information is protected by the Federal Confidentiality of Alcohol and Drug Abuse Patient Records regulations: The Federal rules restrict any use of the information to criminally investigate or prosecute any alcohol or drug abuse patient.[facility] the event this information is protected by the Federal Confidentiality of Alcohol and Drug Abuse Patient Records regulations: The Federal rules restrict any use of the information to criminally investigate or prosecute any alcohol or drug abuse patient.[facility] HospitalIn the event this information is protected by the Federal Confidentiality of Alcohol and Drug Abuse Patient Records regulations: The Federal rules restrict any use of the information to criminally investigate or prosecute any alcohol or drug abuse patient.[facility] HospitalIn the event this information is protected [...] or prosecute any alcohol or drug abuse patient.[facility] HospitalIn the event this information is protected by the Federal Confidentiality of Alcohol and Drug Abuse Patient Records regulations: The Federal rules restrict any use of the information to criminally investigate or prosecute any alcohol or drug abuse patient.[facility] HospitalIn the event this information is protected by the Federal Confidentiality of Alcohol and Drug Abuse Patient Records regulations: The Federal rules restrict any use of the information to criminally investigate or prosecute any alcohol or drug abuse patient.[facility] HospitalIn the event this information is protected by the Federal Confidentiality of Alcohol and Drug Abuse Patient Records regulations: The Federal rules restrict any use of the information to criminally investigate or prosecute any alcohol or drug abuse patient.[facility] the event this information is protected by the Federal Confidentiality of Alcohol and Drug Abuse Patient Records regulations: The Federal rules restrict any use of the information to criminally investigate or prosecute any alcohol or drug abuse patient.[facility] HospitalIn the event this information is protected by the Federal Confidentiality of Alcohol and Drug Abuse Patient Records regulations: The Federal rules restrict any use of the information to criminally investigate or prosecute any alcohol or drug abuse patient.[facility] HospitalIn the event this information is protected by the Federal Confidentiality of Alcohol and Drug Abuse Patient Records regulations: The Federal rules restrict any use of the information to criminally investigate or prosecute any alcohol or drug abuse patient.[facility] HospitalIn the event this information is protected by the Federal Confidentiality of Alcohol and Drug Abuse Patient Records regulations: The Federal rules restrict any use of the information to criminally investigate or prosecute any alcohol or drug abuse patient.[facility] HospitalIn the event this information is protected by the Federal Confidentiality of Alcohol and Drug Abuse Patient Records regulations: The Federal rules restrict any use of the information to criminally investigate or prosecute any alcohol or drug abuse patient.[facility] HospitalIn the event this information is protected by the Federal Confidentiality of Alcohol and Drug Abuse Patient Records regulations: The Federal rules restrict any use of the information to criminally investigate or prosecute any alcohol or drug abuse patient.[facility] HospitalIn the event this information is protected by the Federal Confidentiality of Alcohol and Drug Abuse Patient Records regulations: The Federal rules restrict any use of the information to criminally investigate or prosecute any alcohol or drug abuse patient.[facility] HospitalIn the event this information is protected by the Federal Confidentiality of Alcohol and Drug Abuse Patient Records regulations: The Federal rules restrict any use of the information to criminally investigate or prosecute any alcohol or drug abuse patient.[facility] HospitalIn the event this information is protected by the Federal Confidentiality of Alcohol and Drug Abuse Patient Records regulations: The Federal rules restrict any use of the information to criminally investigate or prosecute any alcohol or drug abuse patient.[facility] HospitalIn the event this information is protected by the Federal Confidentiality of Alcohol and Drug Abuse Patient Records regulations: The Federal rules restrict any use of the information to criminally investigate or prosecute any alcohol or drug abuse patient.[facility] HospitalIn the event this information is protected by the Federal Confidentiality of Alcohol and Drug Abuse Patient Records regulations: The Federal rules restrict any use of the information to criminally investigate or prosecute any alcohol or drug abuse patient.[facility] HospitalIn the event this information is protected by the Federal Confidentiality of Alcohol and Drug Abuse Patient Records regulations: The Federal rules restrict any use of the information to criminally investigate or prosecute any alcohol or drug abuse patient.[facility] Reason for Visit (unrecogniz ed section and content) Reason Comments Medication Question Reason Comments Refill Request Reason Comments Medication Problem Reason Comments Follow Up 4 months Reason Comments Well Woman Specialty Diagnoses / Procedures Referred By Contac t Referred To Contact Gynecology / ILLUMINATING ENGINEER Diagnoses annual Procedures WELLNESS EXAMS EST 40-64 YRS EST I ANNUAL PATIENT Self, Delphine Yan, MEDICAL ATTENDANT.VEGETABLE VENDOR [address] [place] [address] Referral ID Status Reason Start Date Expiration Date Visits Re quested Visits Authorized [id number] Closed 02/04/2022 08/02/2022 1 1 Reason Comments [...] Comments Follow Up Reason Comments ER F/U [facility] 02/05/24 Fall Reason Onset Date Comments Refill Request 03/17/2024 Reason Onset Date Comments Refill Request 04/01/2024 Reason Onset Date Comments Refill Request 07/01/2024 Reason Comments F/U 3 Month Reason Comments fax [facility] referral to [place] Reason Comments Orders Reason Onset Date Comments Refill Request 10/07/2024 Reason Comments Shortness of Breath Reason Comments ER F/U Reason Comments Patient Question Reason Comments F/U 3 Month Reason Comments Insurance Authorization Reason Comments Results CT Chest Reason Comments Follow Up Care Teams (unrecognized sec tion and content) Ballistics Teacher Relationship Specialty Start Date End Date Hilton Doty, DO [address] [place] [address] PCP - General Family Practice 09/15/14 Ballistics Teacher Relationship Specialty Start Date End Date Hilton Doty, DO [address] [place] [address] PCP - General Family Practice 09/15/14 Ballistics Teacher Relationship Specialty Start Date End Date Hilton Doty, DO [address] [place] [address] PCP - General Family Practice 09/15/14 Ballistics Teacher Relationship Specialty Start Date End Date Hilton Doty DO [address] [place] [address] PCP - General Family Practice 09/15/14 Ballistics Teacher Relationship Specialty Start Date End Date Hilton Doty, DO [address] [place] [address] PCP - General Family Practice 09/15/14 Ballistics Teacher Relationship Specialty Start Date End Date Hilton Doty, DO [address] [place] [address] PCP - General Family Practice 09/15/14 Ballistics Teacher Relationship Specialty Start Date End Date Hilton Doty, DO [address] [place] [address] PCP - General Family Medicine 09/15/14 Ballistics Teacher Relationship Specialty Start Date End Date Hilton Doty, DO [address] [place] [address] PCP - General Family Medicine 09/15/14 Ballistics Teacher Relationship Specialty Start Date End Date Hilton Doty, DO [address] [place] [address] PCP - General Family Medicine 09/15/14 Ballistics Teacher Relationship Specialty Start Date End Date Hilton Doty, DO [address] [place] [address] PCP - General Family Medicine 09/15/14 Ballistics Teacher Relationship Specialty Start Date End Date Hilton Doty, DO [address] [place] [address] PCP - General Family Medicine 09/15/14 Ballistics Teacher Relationship Specialty Start Date End Date Hilton Doty, DO [address] [place] [address] PCP - General Family Medicine 09/15/14 Ballistics Teacher Relationship Specialty Start Date End Date Hilton Doty, DO [address] [place] [address] PCP - General Family Medicine 09/15/14 Ballistics Teacher Relationship Specialty Start Date End Date Hilton Doty, DO [address] [place] [address] PCP - General Family Medicine 09/15/14 Ballistics Teacher Relationship Specialty Start Date End Date Hilton Doty, DO [address] [place] [address] PCP - General Family Medicine 09/15/14 Ballistics Teacher Relationship Specialty Start Date End Date Hilton Doty, DO [address] [place] [address] PCP - General Family Medicine 09/15/14 Ballistics Teacher Relationship Specialty Start Date End Date Hilton Doty, DO [address] [place] [address] PCP - General Family Medicine 09/15/14 Ballistics Teacher Relationship Specialty Start Date End Date Hilton Doty DO [address] [place] [address] PCP - General Family Medicine 09/15/14 Ballistics Teacher Relationship Specialty Start Date End Date Hilton Doty DO [address] [place] [address] PCP - General Family Medicine 09/15/14 Ballistics Teacher Relationship Specialty Start Date End Date Hilton Doty DO [address] [place] [address] PCP - General Family Medicine 09/15/14 Ballistics Teacher Relationship Specialty Start Date End Date Hilton Doty DO [address] [place], [place] [address] PCP - General Family Medicine 09/15/14 Team Status: Active Member Role Status Dates Dr. Hilton Doty DO Primary Care Provider Active Team Status: Inactive Member Role Status Dates Dr. Hilton Doty DO Primary Care Provider, Referr ing Provider Active Nilda Loya LEVELER, LEVELER-C Attending Provider Active Team Status: Active Member Role Status Dates Employee Health Attending Provider Active Team Status: Active Member Role Status Dates Dr. Hilton Doty DO Primary Care Provider Active Health Risk Assessment Attending Provider, Referring P nohemy Active Team Status: Inactive Member Role Status Dates Dr. Hilton Doty DO Primary Care Pr ovider, Attending Provider, Referring Provider Active Team Status: Active Member Role Status Dates Dr. Hilton Doty DO Primary Care Pr ovider, Attending Provider, Referring Provider Active Ballistics Teacher Relationship Specialty Start Date End Date Hilton Doty DO [address] [place] [address] PCP - General Family Medicine 09/15/14 Ballistics Teacher Relationship Specialty Start Date End Date Hilton Doty DO [address] [place] [address] PCP - General Family Medicine 09/15/14 Team Status: Inactive Member Role Status Dates Dr. Hilton Doty , Primary Care Provider Active Nilda Loya NP, LEVELER-C Attending Provider, Referring Provider Active Team Status: Inactive Member Role Status Dates Dr. Hilton Doty DO Primary Care Provider Active ERIC FOWLER Attending Provider, Referring Pro vider Active Ballistics Teacher Relationship Specialty Start Date End Date Hilton Doty DO [address] [place] [address] PCP - General Family Medicine 09/15/14 Team Status: Inactive Member Role Status Dates Dr. Hilton Doty DO Primary Care Provider, Referr ing Provider Active Dr. Priscilla Mart , DO Attending Provider Activ e Team Status: Inactive Member Role Status Dates Dr. Hilton Doty , Primary Care Provider Active Dr. Priscilla Mart , Attending Provider, Refe rring Provider Active Ballistics Teacher Relationship Specialty Start Date End Date Hilton Doty DO [address] [place] [address] PCP - General Family Medicine 09/15/14 Ballistics Teacher Relationship Specialty Start Date End Date Hilton Doty DO [address] [place] [address] PCP - General Family Medicine 09/15/14 Ballistics Teacher Relationship Specialty Start Date End Date Hilton Doty DO [address] [place] [address] PCP - General Family Medicine 09/15/14 Team Status: Inactive Member Role Status Dates Dr. Hilton Doty DO Primary Care Provider, Referr ing Provider Active Saskia Carpenter NP-C Attending Provider Active Team Status: Active Member Role Status Dates Dr. Hilton Doty DO Primary Care Provider Active Dr. Priscilla Mart DO Attending Provider, Referring Provider, Other Provider Active Team Status: Inactive Member Role Status Dates Dr. Hilton Doty DO Primary Care Provider, Referr ing Provider Active Randy CEE, PA Attending Provider Active Ballistics Teacher Relationship Specialty Start Date End Date Hilton Doty DO [address] [facility] [place] [address] PCP - General Family Medicine 09/15/14 Ballistics Teacher Relationship Specialty Start Date End Date Hilton Doty DO [address] [place] [address] PCP - General Family Medicine 09/15/14 Ballistics Teacher Relationship Specialty Start Date End Date Hilton Doty DO [address] [place] [address] PCP - General Family Medicine 09/15/14 Ballistics Teacher Relationship Specialty Start Date End Date Hilton Doty DO [address] [facility] [place] [address] PCP - General Family Medicine 09/15/14 Ballistics Teacher Relationship Specialty Start Date End Date Hilton Doty DO [address] [place] [place] [address] PCP - General Family Medicine 09/15/14 Ballistics Teacher Relationship Specialty Start Date End Date Hilton Doty DO [address] [place] [address] PCP - General Family Medicine 09/15/14 Ballistics Teacher Relationship Specialty Start Date End Date Hilton Doty DO [address] [place] [address] PCP - General Family Medicine 09/15/14 Lisa Doll, MEDICAL ATTENDANT.VEGETABLE VENDOR [address] [facility] [place] [address] [facility]24 Anna Sheikh, MEDICAL ATTENDANT.VEGETABLE VENDOR [address] [facility] [place] [address] [facility] 07/10/24 Ballistics Teacher Relationship Specialty Start Date End Date Hilton Doty DO [address] [facility] [place] [address] PCP - General Family Medicine 09/15/14 Lisa Doll, MEDICAL ATTENDANT.VEGETABLE VENDOR [address] [place] [address] [facility] 07/10/24 JillianAnna, MEDICAL ATTENDANT.VEGETABLE VENDOR [address] [facility] [place] [address] [facility] 07/10/24 Ballistics Teacher Relationship Specialty Start Date End Date Hilton Doty DO [address] [facility] [place] [address] PCP - General Family Medicine 09/15/14 Lisa Doll, MEDICAL ATTENDANT.VEGETABLE VENDOR [address] [facility] [place] [address] [facility] 07/10/24 Anna Sheikh, MEDICAL ATTENDANT.VEGETABLE VENDOR [address] [place] [address] [facility] 07/10/24 Ballistics Teacher Relationship Specialty Start Date End Date Hilotn Doty DO [address] [place] [address] PCP - General Family Medicine 09/15/14 Lisa Doll, MEDICAL ATTENDANT.VEGETABLE VENDOR [address] [place] [address] [employer] [facility] 07/10/24 JillianAnna, MEDICAL ATTENDANT.VEGETABLE VENDOR [address] [facility] [place] [address] [facility] 07/10/24 Ballistics Teacher Relationship Specialty Start Date End Date Hilton Doty DO [address] [place] [address] PCP - General Family Medicine 09/15/14 Lisa Doll, MEDICAL ATTENDANT.VEGETABLE VENDOR [address] [place] [address] [facility] 07/10/24 JillianAnna, MEDICAL ATTENDANT.VEGETABLE VENDOR [address] [place] [address] Machine [employer] [facility] 07/10/24 Ballistics Teacher Relationship Specialty Start Date End Date Hilton Doty DO [address] [place] [address] PCP - General Family Medicine 09/15/14 Lisa Doll, MEDICAL ATTENDANT.VEGETABLE VENDOR [address] [place] [address] [facility] 07/10/24 Anna Sheikh, MEDICAL ATTENDANT.VEGETABLE VENDOR [address] [place] [address] [facility] 07/10/24 Ballistics Teacher Relationship Specialty Start Date End Date Hilton Doty DO [address] [place] [address] PCP - General Family Medicine 09/15/14 Lisa Doll, MEDICAL ATTENDANT.VEGETABLE VENDOR [address] [place] [address] [facility] 07/10/24 Anna Sheikh, MEDICAL ATTENDANT.VEGETABLE VENDOR [address] [place] [address] [facility] 07/10/24 Ballistics Teacher Relationship Specialty Start Date End Date Hilton Doty DO [address] [place] [address] PCP - General Family Medicine 09/15/14 Lisa Doll, MEDICAL ATTENDANT.VEGETABLE VENDOR [address] [place] [address] [facility] 07/10/24 Anna Sheikh, MEDICAL ATTENDANT.VEGETABLE VENDOR [address] [place] [address] [facility] 07/10/24 Ballistics Teacher Relationship Specialty Start Date End Date Hilton Doty DO [address] [place] [address] PCP - General Family Medicine 09/15/14 Anna Sheikh, MEDICAL ATTENDANT.VEGETABLE VENDOR [address] [place] [address] [facility] 07/10/24 Team Status: Inactive Member Role [...] September 21, 2024 End: September 21, 2024 JYAE Montero Referring Provider Active Star t: September [...] 2024 End: September 26, 2024 Nilda Loya LEVELER, LEVELER-C Attending Provider Active Start: September 26, 2024 End: September 26, 2024 Nilda Loya LEVELER, LEVELER-C Referring Provider Active Start: September 26, 2024 [...] October 26, 2024 End: October 26, 2024 BUSETR Carrasco Referring Provider Active Start: October 26, 2024 End: October 26, 2024 Team Status: Active Member Role Status Dates Dr. Hilton Doty DO Primary Care Provider Active Start: October 26, 2024 Dr. Stone Quiñonez MD Attending Provider Active S tart: October 26, 2024 Ballistics Teacher Relationship Specialty Start Date End Date Hilton Doty DO [address] [place] [address] PCP - General [facility] Medicine 09/15/14 [facility], MEDICAL ATTENDANT.VEGETABLE VENDOR [address] [facility] [address] [facility] 07/10/24 Ballistics Teacher Relationship Specialty Start Date End Date Hilton Doty DO [address] [place] [place] [address] PCP - [facility] 09/15/14 [facility], MEDICAL ATTENDANT.VEGETABLE VENDOR [address] [place] [address] [facility] 07/10/24 Team Status: Inactive Member Role [...] November 10, 2024 End: November 10, 2024 Ballistics Teacher Relationship Specialty Start Date End Date Hilton Doty DO [address] [place] [place] [address] PCP - General [facility] 09/15/14 [facility] MEDICAL ATTENDANT.VEGETABLE VENDOR [address] [place] [address] [facility] 07/10/24 Team Status: Inactive Member Role [...] December 19, 2024 End: December 19, 2024 Team Status: Inactive Member Role Status Dates Dr. Hilton Doty DO Primary Care Provider Active Start: December 30, 2024 End: December 30, 2024 JAYE Montero Attending Provider Active Star t: December 30, 2024 End: December 30, 2024 JAYE Montero Referring Provider Active Star t: December 30, 2024 End: December 30, 2024 Team Status: Active Member Role Status Dates Dr. Hilton Doty DO Primary Care Provider Active Start: December 30, 2024 Dr. Derek Barone MD Attending Provider Active S tart: December 30, 2024 JAYE Montero Referring Provider Active Star t: December 30, 2024 Team Status: Active Member Role Status Dates Dr. Hilton Doty DO Primary Care Provider Active Start: January 02, 2025 Dr. Hilton Doty DO Attending Provider Active Start: January 02, 2025 Team Status: Inactive Member Role Status Dates Dr. Hilton Doty DO Primary Care Provider Active Start: January 10, 2025 End: January 10, 2025 JAYE Montero Other Provider Active Start: 2024 End: January 10, 2025 Dr. Derek Barone MD Attending Provider Active S tart: January 10, 2025 End: January 10, 2025 Dr. Derek Barone MD Referring Provider Active S tart: January 10, 2025 End: January 10, 2025 Team Status: Active Member Role Status Dates Dr. Hilton Doty DO Primary Care Provider Active Start: January 10, 2025 JAYE Montero Other Provider Active Start: 2024 Dr. Derek Barone MD Attending Provider Active S tart: January 10, 2025 Dr. Derek Barone MD Referring Provider Active S tart: January 10, 2025 Dr. Derek Barone MD Other Provider Active Start : January 10, 2025 Team Status: Active Member Role Status Dates Dr. Hilton Doty DO Primary Care Provider Active Start: January 12, 2025 Dr. Kay Khan MD Attending Provider Active Start: January 12, 2025 Dr. Kay Khan MD Referring Provider Active Start: January 12, 2025 Team Status: Inactive Member Role Status Dates Dr. Hilton Doty DO Primary Care Provider Active Start: January 13, 2025 End: January 13, 2025 Dr. Hilton Doty DO Referring Provider Active Start: January 13, 2025 End: January 13, 2025 JAYE Montero Attending Provider Active Star t: January 13, 2025 End: January 13, 2025 Goals (unrecognized section and content) Goals may [...] ized section and content) DATE CREATED AUTHOR 01/13/2025 [facility] DATE CREATED AUTHOR AUTHOR'Austin MONTILLA 01/14/2025 [facility] FOR RECORDS PERTAINING TO PATIENTS WHO ARE [...] BE BASED ON THE PRIMARY CLINICAL RECORDS. [employer] [facility]. provides no warranty or guarantee of the accuracy or completeness of information in this document.
--- NOTE | 2025-01-14 12:30 | RAD_ITS ---
PROCEDURE: LUMBAR SPINE 2 OR 3 VIEWS 01/14/2025 REASON FOR EXAM: PAIN Lumbar pain. Left leg pain. TECHNIQUE: LUMBAR SPINE 2 OR 3 VIEWS COMPARISON: None FINDINGS: Vertebrae: Lumbar vertebral body height appears normal. No evidence of fracture. Discs: Intervertebral disc height appears normal Alignment: No significant subluxation or spondylolisthesis. No significant scoliosis Other: Metallic clips right upper quadrant abdomen, likely cholecystectomy RAD/Lumbar Spine 2 or 3 Views IMPRESSION: 1. No significant lumbar abnormality seen. Reading Location: [facility]
--- NOTE | 2025-01-14 12:30 | RAD_ITS ---
PROCEDURE: HIP, UNI W/ PELVIS 2-3 VIEWS 01/14/2025 REASON FOR EXAM: PAIN Pelvic pain. Left hip pain. Left leg pain and heaviness. TECHNIQUE: HIP, UNI W/ PELVIS 2-3 VIEWS COMPARISON: None FINDINGS: Bones: Pelvis and left hip appear intact. No fracture or dislocation. Joints: Left hip is in articulating alignment. No significant arthritis. Soft tissues: No radiopaque foreign bodies RAD/HIP, UNI W/ Pelvis 2-3 Views IMPRESSION: Negative examination Reading Location[facility]
--- NOTE | 2025-01-14 12:30 | RAD_ITS ---
PROCEDURE: KNEE 1 OR 2 VIEWS 01/14/2025 REASON FOR EXAM: PAIN Right knee pain. TECHNIQUE: KNEE 1 OR 2 VIEWS COMPARISON: None FINDINGS: Bones: Right knee appears intact. No fracture or dislocation seen. Joints: Small osteophytes at the margins of the lateral compartment. Small to moderate size osteophytes at the margins of the medial compartment. Soft tissues: No radiopaque foreign bodies RAD/Knee 1 or 2 Views IMPRESSION: 1. 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 2. No acute findings Reading Location[facility]
--- NOTE | 2025-01-14 12:31 | RAD_ITS ---
PROCEDURE: KNEE 4 OR MORE VIEWS 01/14/2025 REASON FOR EXAM: PAIN Left knee pain TECHNIQUE: KNEE 4 OR MORE VIEWS COMPARISON: None FINDINGS: Bones: Left knee appears intact. No acute fracture or dislocation. Mild osteophyte formation of the margins of the lateral compartment and moderate osteophyte formation of the margins of the medial compartment. Joints: No joint effusion seen. Soft tissues: No radiopaque foreign bodies Alignment:: Alignment appears anatomic RAD/Knee 4 or More Views IMPRESSION: 1. Mild osteoarthritis, greatest of the medial compartment. 2. No acute findings. Reading Location[facility]
== END | disposition home or self-care (01) ==
PROVIDERS: PCP Student in an Organized Health Care Education/Training Program; Referring Provider Student in an Organized Health Care Education/Training Program; Visit Provider Student in an Organized Health Care Education/Training Program
DX: R29.898 Other symptoms and signs involving the musculoskeletal system (principal); M79.605 Pain in left leg
CPT/HCPCS: 72100; 73502; 73560; 73564

== ENCOUNTER → 2025-02-01 | Outpatient (CLI) | payer OTHER, SELFPAY ==
--- NOTE | 2025-02-01 10:26 | NEURO ---
NCS and/or EMG Patient Report Ordering Doctor: Hilton Doty DATE OF SERVICE: 02/01/25 Jesusita presents with complaints of heaviness and soreness in the left lower leg. Electrodiagnostic findings: Left peroneal motor nerve demonstrates normal distal latency, amplitude and conduction velocity. Left tibial motor response within normal limits. Normal tibial and peroneal F?waves on the left side. Borderline prolonged H?reflex bilaterally, Normal left sural and left superficial peroneal response. Needle EMG testing was performed in the left lower limb. All muscles tested showed no evidence of denervation with normal motor unit action potentials Electrodiagnostic impression: This is a normal electrodiagnostic study of the left lower limb. There is no electrodiagnostic evidence for peripheral neuropathy or lumbosacral radiculopathy Multi Select Codes Neurology Neurology Interp Codes: 13586-76 Musc test done w/n test comp (interp) and 69214-92 Nrv cndj tst 5-6 studies (interp)
== END | disposition home or self-care (01) ==
LOC: PSN 09:02
PROVIDERS: PCP Student in an Organized Health Care Education/Training Program; Referring Provider Student in an Organized Health Care Education/Training Program; Visit Provider Student in an Organized Health Care Education/Training Program
DX: M79.605 Pain in left leg (principal); R29.898 Other symptoms and signs involving the musculoskeletal system
CPT/HCPCS: 95886; 95909

== ENCOUNTER → 2025-03-13 | Outpatient (CLI) | payer OTHER, SELFPAY ==
[2025-03-13 17:44] LABS: CRP < 3.00 mg/L (0.0-3.0)
== END | disposition home or self-care (01) ==
LOC: LAB 16:25
PROVIDERS: PCP Student in an Organized Health Care Education/Training Program; Referring Provider Student in an Organized Health Care Education/Training Program; Visit Provider Student in an Organized Health Care Education/Training Program
DX: M79.604 Pain in right leg (principal); M06.4 Inflammatory polyarthropathy; M79.605 Pain in left leg; I83.893 Varicose veins of bilateral lower extremities with other complications; M19.90 Unspecified osteoarthritis, unspecified site
CPT/HCPCS: 36415; 81240; 81241; 83090; 85300; 85303; 85307; 85420; 85613; 85652; 85705; 85732; 86140

== ENCOUNTER → 2025-03-29 | Outpatient (CLI) | payer OTHER, SELFPAY | END | disposition home or self-care (01) | LOC: LAB 11:53 | PROVIDERS: PCP Student in an Organized Health Care Education/Training Program; Referring Provider Physician Assistant; Visit Provider Physician Assistant | DX: R23.3 Spontaneous ecchymoses (principal); Z82.49 Family history of ischemic heart disease and other diseases of the circulatory system | CPT/HCPCS: 36415; 81241 ==

== ENCOUNTER 2025-05-04 11:34 | Day surgery (SDC) | payer OTHER, SELFPAY ==
[2025-05-03 12:57] VITALS: BMI 29.9
--- NOTE | 2025-05-04 13:25 | HP.PCM_ITS ---
HPI - General HPI Narrative WANDA CAAL, is a 45 F who presents with venous insufficiency with pain/heaviness refractory to compression tx. She had a prior GSV ablation. She has SSV with reflux. [facility] Medical History Status post hysteroscopy COVID-19 Wears dentures Wears glasses Anxiety Rheumatoid arthritis Arthritis Kidney stones Former smoker History of edema History of ureteral stone Home Medications ?Medication ?Instructions ?Recorded ?Last Taken ?Type lorazepam 0.5 mg tablet 0.5 mg PO DAILY PRN PRN Anxi ety 03/12/20 Unknown History cholecalciferol (vitamin D3) 125 125 mcg PO DAILY 09/0409/28/23 History mcg (5,000 unit) capsule phentermine 11.25 mg-topiramate ER 1 cap PO DAILY 09/0409/28/23 12:40 History 69 mg capsule,[id number] mphas (Qsymia) hydroxychloroquine 200 mg tablet 300 mg PO DAILY 09/2509/28/23 19:30 History (Plaquenil) trazodone 50 mg tablet 50 mg PO QHS 09/25/23 History naproxen 500 mg tablet (Naprosyn) 500 mg PO BID PRN pa in #20 tabs 02/05/24 Unknown Rx ondansetron 4 mg disintegrating 4 mg PO Q8H PRN PRN Na usea #10 tabs 02/05/24 Unknown Rx tablet spironolactone 50 mg tablet 50 mg PO QDAY 11/02/24 Unk nown History bupropion HCl 75 mg tablet 150 mg PO BID 12/12/24 Unkn own History fluoxetine 10 mg capsule (Prozac) 10 mg PO QDAY Unknown History spironolactone 25 mg tablet 25 mg PO QDAY 12/12/24 Unk nown History tramadol 50 mg tablet 50 mg PO Q8 PRN pain 5 Unknown History Allergy/AdvReac Type Severity Reaction Status Date / Time Penicillins (PCN) Allergy Severe Anaphylaxis Verified 03/23/25 08:38 Surgical History Status post hysteroscopic ablation of endometrium (~09/29/23) Hx of varicose vein stripping Hx of cystoscopy Hx of dilation and curettage Hx of tooth extraction History of laparoscopic cholecystectomy S/P tubal ligation Social History current occupational status: employed 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 Smoking Status: Former smoker alcohol intake: never substance use type: does not use seatbelt use: always do you feel safe at home: Yes ROS Constitutional Constitutional: Denies chills, fever(s), frequent falls, lethargy or weakness Eyes Eyes: Denies blind spots, change in vision or loss of vision ENT HEENT: Denies bleeding gums, hoarseness or sore throat Cardiovascular Cardiovascular: Denies abdominal pain, bluish discoloration of hand/feet, chest pain with activity, claudication, cold extremities, cyanosis, dyspnea on exertion, erythema on extremities, irregular heart rhythm, leg edema, leg ulcers, numbness in extremities or weakness in extremities Respiratory/Chest Respiratory/Chest: Denies cough, excessive phlegm production, shortness of breath at rest, shortness of breath with exertion or wheezing Gastrointestinal Gastrointestinal: Denies anorexia, change in stool character, constipation, diarrhea, melena or rectal bleeding Genitourinary Genitourinary: Denies dysuria or hematuria Musculoskeletal Musculoskeletal: Denies abnormal gait Integumentary Integumentary: Reports other Details: ; Denies erythema, non-healing lesions or wounds Neurologic Neurologic: Denies abnormal speech, focal weakness, headache(s), loss of vision, numbness, paresthesias or sensory deficit Hematologic/Lymphatic Hematologic/Lymphatic: Denies easy bleeding, easy bruising or lymphadenopathy Vital Signs Vital Signs Vital Signs: Weight Weight: 186 lb Body Mass Index (BMI) 29.9 Physical Exam Const alert, oriented x3, no apparent distress and healthy appearing General Appearance: cooperative; Negative for combative or lethargic Orientation / Consciousness: awake Exam Limitations: no limitations HEENT Head and Scalp: normocephalic and atraumatic Eyes EOMs intact bilaterally General Eye: normal appearance of both eyes Neck full ROM General: trachea midline Resp normal respiratory effort and no use of accessory muscles Effort and Inspection: Negative for labored, stridor or audible wheezes Cardio regular rate and regular rhythm Back/Spine Cervical Spine: cervical ROM normal Extremity full ROM, normal capillary refill and no clubbing, cyanosis or edema Skin no rashes or lesions noted and no wounds Neuro oriented x3, CN's II-XII intact bilaterally, no focal motor deficits and no sensory deficits noted Psych thought process normal, cooperative, affect normal, speech normal and activity/motor behavior normal Assessment & Plan Assessment/Plan (1) Venous insufficiency: PLAN: -foam ablation left SSV
--- NOTE | 2025-05-04 17:47 | PCM.OPRPT ---
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 She previously underwent great saphenous vein ablation with only some improvement in her symptoms. She has reflux throughout the small saphenous vein so she presents now for foam ablation. Description of procedure: Upon obtaining informed consent and verification of correct patient procedure and site the patient was taken to the [facility] where she was positioned prepped and draped in usual sterile fashion. Timeout was performed Sedation ministered with Versed and fentanyl. The small saphenous vein was interrogated with ultrasound and found to be of adequate caliber and continuous with no significant tortuosity or branching noted. Skin overlying the vessel with above the posterior ankle was anesthetized 1% lidocaine the vessel accessed with a micropuncture needle wire. This then exchanged for micropuncture sheath through which Varithena was infused under ultrasound guidance with manual pressure held prior to confluence with the deep system below the popliteal fossa. Manual pressure was held the site for 3 minutes and the vessel was assessed with no evidence of foam within the deep system and adequate transit of the foam throughout the small saphenous vein. The micropuncture sheath was then withdrawn and manual pressure until hemostasis was observed. Amador wrap was then applied and patient taken recovery with plan discharged to home. Surgical Findings: See above Complications Complications: No
== END 2025-05-04 15:00 | disposition home or self-care (01) ==
PROVIDERS: PCP Student in an Organized Health Care Education/Training Program; Referring Provider Surgery Trauma Surgery; Visit Provider Surgery Trauma Surgery
DX: I87.2 Venous insufficiency (chronic) (peripheral) (principal); Z87.891 Personal history of nicotine dependence
CPT/HCPCS: 36465; 99152; 99153; C1894

== ENCOUNTER 2025-05-08 07:53 | Outpatient (CLI) | payer OTHER, SELFPAY ==
--- NOTE | 2025-05-08 07:55 | VDLE_ITS ---
Reason For Study Reason For Study: S/P Lt SSV Ablation RIGHT LEFT CFV is compressible, spontaneous, phasic, competent HX Lt GSV Ablation Throughout. and demonstrates normal augmentation. SSV is dilated and NONCOMPRESSIBLE with hypoechoic Procedure intraluminal echoes. Finding is consistent with This is a venous duplex using B-mode, color flow and revent Venaseal procedure. spectral Doppler. S/P Lt SSV Chem ablation. Exam performed in department. CFV is compressible, spontaneous, phasic, competent, The exam was diagnostic. and demonstrates normal augmentation. FV is compressible, spontaneous, phasic, competent and demonstrates normal augmentation. POP V is compressible, spontaneous, phasic, competent and demonstrates normal augmentation. T/P Trunk is compressible. PTV is compressible. LT PerV is compressible. VL/Venous Duplex US, Unilateral Interpretation Summary Deep veins of the left lower extremity are patent and compressible segmentally. There is no evidence of left lower extremity deep vein thrombosis. Left small saphenous vein occluded consitent with recent ablation Ordering Physician: Derek Barone Referring Physician: Hilton Doty Performed By: Isreal Hutchins RVT and Student
== END 2025-05-08 23:59 | disposition home or self-care (01) ==
LOC: CVS 07:54
PROVIDERS: PCP Student in an Organized Health Care Education/Training Program; Referring Provider Surgery Trauma Surgery; Visit Provider Surgery Trauma Surgery
DX: I83.892 Varicose veins of left lower extremity with other complications (principal)
CPT/HCPCS: 93971

== ENCOUNTER 2025-06-07 20:44 | Emergency (ER) | payer OTHER, SELFPAY ==
[2025-06-07 20:48] VITALS: BP 158/83; PULSE 77; RESP 18; TEMP 36.1; O2SAT 99; BMI 32.1
--- NOTE | 2025-06-07 21:02 | EX.ED.UPPERE ---
HPI History of Present Illness Chief Complaint: Upper Extremity Injury Detail of Chief Complaint: Patient presents because of her right little finger turning white and was b Informant: patient Occured/Mechanism Comment: Raynaud's Onset/Context/Timing Onset: Today and Hours Context: Sudden Onset Timing: Intermittent Quality of Pain: - (Pain and warm sensation distal aspect of the right little) Location: Right little finger Current Severity: Mild Maximum Severity: Severe Worsened by: Nothing Relieved by: Nothing Associated Symptoms Associated Symptoms: Negative for Parasthesia, Weakness or Loss of Funtion Narrative Narrative: Patient is a 45-year-old woman. She has history of autoimmune disorder. She was not able to tell me what autoimmune disorder. Based on review of records she has history of rheumatoid arthritis. She also has history of Raynaud's phenomenon. She states her finger became white x 2. It then was blue over the proximal phalanx. What was unusual is that the tip of her finger felt warm. She is presently not on nifedipine. She may have been on it. She does not remember the name of the medicine, description of the pill or the strength of the medication. Regardless she apparently had a reaction and the medicine was discontinued. She is presently on Plaquenil. She states this occurred while she was sitting in her home. Patient began to cry. When asked why she said she has never had it happen this badly . I informed her there is nothing to worry about and that what she is describing is Raynaud's phenomenon. She again reiterated that she has Raynaud's phenomenon. When asked specifically why is she upset and she responded I have never had it this bad . Prior similar symptoms: Yes Recent Illness/Hospitalization: No [facility] Medical History (Updated 06/07/25 @ 22:[address] Jasen Ortiz MD) Raynaud's phenomenon Status post hysteroscopy COVID-19 Wears dentures Wears glasses Anxiety Rheumatoid arthritis Arthritis Kidney stones Former smoker History of edema History of ureteral stone Home Medications ?Medication ?Instructions ?Recorded ?Last Taken ?Type lorazepam 0.5 mg tablet 0.5 mg PO DAILY PRN PRN Anxiety 03/12/20 Unknown History cholecalciferol (vitamin D3) 125 125 mcg PO DAILY 09/24/23 09/28/23 History mcg (5,000 unit) capsule phentermine 11.25 mg-topiramate ER 1 cap PO DAILY 09/24/23 09/28/23 12:40 History 69 mg capsule,[id number] mphas (Qsymia) trazodone 50 mg tablet 50 mg PO QHS 09/25/23 09/27/23 History naproxen 500 mg tablet (Naprosyn) 500 mg PO BID PRN pain #20 tabs 02/05/24 Unknown Rx ondansetron 4 mg disintegrating 4 mg PO Q8H PRN PRN Nausea #10 tabs 02/05/24 Unknown Rx tablet bupropion HCl 75 mg tablet 150 mg PO BID 12/12/24 Unknown History fluoxetine 10 mg capsule (Prozac) 10 mg PO QDAY 12/12/24 Unknown History spironolactone 25 mg tablet 25 mg PO QDAY 12/12/24 Unknown History tramadol 50 mg tablet 50 mg PO Q8 PRN pain 02/06/25 Unknown History hydroxychloroquine 200 mg tablet 200 mg PO DAILY 05/18/25 Unknown History (Plaquenil) Allergy/AdvReac Type Severity Reaction Status Date / Time Penicillins (PCN) Allergy Severe Anaphylaxis Verified 06/07/25 20:47 Surgical History Status post hysteroscopic ablation of endometrium (~09/29/23) Hx of varicose vein stripping Hx of cystoscopy Hx of dilation and curettage Hx of tooth extraction History of laparoscopic cholecystectomy S/P tubal ligation Social History current occupational status: employed 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 Smoking Status: Former smoker alcohol intake: never substance use type: does not use seatbelt use: always do you feel safe at home: Yes ROS ROS ED Constitutional Constitutional ED: Denies chills, fever(s), subjective or sweats Integumentary Reports other Details: Pale right middle finger then cyanosis over the proximal phalange Neurologic Neurologic: Denies paresthesias or weakness Psychiatric Psychiatric: Denies anxiety or depression Hematologic/Lymphatic Hematologic/Lymphatic: Denies easy bleeding or easy bruising EXAM Physical Exam Const Vital Signs: 06/07/25 20:48 Temperature 97 F L Temperature Source Temporal Pulse Rate 77 Respiratory Rate 18 Blood Pressure 158/83 H Blood Pressure Mean 108 Pulse Ox 99 Oxygen Delivery Method Room Air Positive well nourished and well developed General Appearance ED: well developed and NAD HEENT Reports moist mucous membranes normocephalic and atraumatic Eyes PERRL and EOMs intact bilaterally Extremity normal to inspection and full ROM Extremity Narrative: Patient has a warm right little finger. Capillary fill is normal at this time. Flexor and extensor mechanism intact. Neuro oriented x3 and CN's II-XII intact bilaterally Sensorium / Orientation: alert Psych mental status grossly normal Skin General Skin Exam: Negative for petechiae Lesions: no lesions Rashes: no rashes MDM MDM MDM Narrative Medical decision making narrative: History and physical is consistent with Raynaud's phenomenon. Patient was informed that what she is describing is a Raynaud's phenomena. She told me that she has Raynaud's phenomena that was not listed. That was entered by me. She then began to cry. I asked her why is she upset. She then responded that she has never had her finger this bad. During my history and physical the nurse was in the room. Will have patient's hand wrapped in a warm rag and observe since patient has known history of Raynaud's has an autoimmune disorder no further testing is needed at this time. Treatment and Re-Evaluation Narrative: As of -45 her fingers back to normal. Therefore we will discharge to home Discharge Plan Triage Chief Complaint: Upper Extremity Injury ED Provider: Jasen Ortiz Dx/Rx/DC Orders Clinical Impression: Raynaud phenomenon due to autoimmune disease, History of hypertension, History of depression Instructions: Raynaud Disease Prescriptions: No Action cholecalciferol (vitamin D3) 125 mcg (5,000 unit) capsule 125 mcg PO DAILY Qsymia 11.25-69 mg capsule, ER multiphase 24 hr 1 cap PO DAILY bupropion HCl 75 mg tablet 150 mg PO BID fluoxetine [Prozac] 10 mg capsule 10 mg PO QDAY spironolactone 25 mg tablet 25 mg PO QDAY tramadol 50 mg tablet 50 mg PO Q8 PRN (Reason: pain) lorazepam 0.5 MG tablet 0.5 mg PO DAILY PRN PRN (Reason: Anxiety) trazodone 50 mg tablet 50 mg PO QHS Patient Comments: Take 1-2 tablets by mouth daily at bedtime. ondansetron 4 mg tablet,disintegrating 4 mg PO Q8H PRN PRN (Reason: Nausea) Qty: 10 0RF naproxen [Naprosyn] 500 mg tablet 500 mg PO BID PRN (Reason: pain) Qty: 20 0RF Primary Care Provider: Hilton Doty Referrals: Hilton Doty DO [Primary Care Provider, Medical] - As Needed Print Language: Luxembourgish Disposition Disposition: Home, Self Care
--- NOTE | 2025-06-07 21:08 | ED.RN ---
pt was being examined by Dr Ortiz and she became very emotional and defensive with her responds. Md was professional and asking appropriate questions.
--- OUTSIDE RECORDS SUMMARY | 2025-06-07 21:30 | XMS RPT_ITS | CCD ---
Author Organization [facility] Care Team Providers Care Sales And Marketing Coordinator Name Role Phone Hilton Doty DO Primary Care Provider Dr. Hilton Doty Primary Care Provider Dr. Hilton Doty Referring Provider Vincenzo HAND RUG CLEANER, NUNU-Jessica Munguia Attending Provider Hilton Doty DO Primary Care Provider Dr. Priscilla Mart Attending Provider [phone] Dr. Hilton Doty Primary Care Provider Dr. Hilton Doty Referring Provider BUSTER Loya NP Attending Provider Dr. Priscilla Mart Attending Provider BUSTER Carpenter Attending Provider [phone] Priscilla Mart Referring Provider [phone] Dr. Priscilla Mart Other Provider JAYE Grove Attending Provider Hilton Doty DO Primary Care Provider Lavon LINK WIRE FABRIC MACHINE TENDER.Lisa ENAMORADO Unavailable Jillian LINK WIRE FABRIC MACHINE TENDER.Anna ENAMORADO Unavailable Dr. Hilton Doty DO Primary Care Provider Dr. Hilton Doty DO Referring Provider Laura Bowling Attending Provider Rai PA, Laura Referring Provider Dr. Derek Barone MD Attending Provider Soren ADHIKARI, Dr. Canela Attending Provider [place] HAND RUG CLEANER-C, Nilda Attending Provider Vincenzo HAND RUG CLEANER-C, Nilda Referring Provider Dr. Hilton Doty DO Primary Care Provider [phone] Dr. Hilton Doty DO Referring Provider Rai PA, Laura Attending Provider [phone] Cecelia PA, Laura Referring Provider [phone] Abisai ADKINS, Dr. Reed Attending Provider [phone] Soren ADHIKARI, Dr. Canela Attending Provider Vincenzo HAND RUG CLEANER-C, Nilda Attending Provider Vincenzo HAND RUG CLEANER-C, Nlida Referring Provider Dr. Charlie Lombardo DO Referring Provider Dr. Charlie Lombardo DO Emergency Provider [place] HAND RUG CLEANER-C, Rajinder Other Provider Munira ADHIKARI, Dr. Guerra Attending Provider [place] HAND RUG CLEANER-C, Rajinder Attending Provider [place] HAND RUG CLEANER-C, Rajinder Referring Provider Khang ADKINS, Dr. Ritter [...] Provider Bill ADKINS, Dr. Villanueva Referring Provider Soren ADHIKARI, Dr. Canela Primary Care Provider Rai PA, Laura Attending Provider [phone] Rai PA, Laura Referring Provider [phone] Abisai ADKINS, Dr. Reed Attending Provider Soren ADHIKARI, Dr. Canela Primary Care Provider Soren ADHIKARI, Dr. Canela Referring Provider Soren ADHIKARI, Dr. Canela Attending Provider Doty DO, Dr. Canela Other Provider Ingrid ADKINS, Dr. Wesley Attending Provider Loco LINK WIRE FABRIC MACHINE TENDER.BUNCH TRIMMER MOLD, Zee Dago [facility] Soren ADHIKARI, Dr. Canela Primary Care Provider [phone] Soren ADHIKARI, Dr. Canela Attending Provider Soren ADHIKARI, Dr. Canela Referring Provider Abisai ADKINS, Dr. Reed Attending Provider Rai PA, Laura Attending Provider [phone] Rai PA, Laura Referring Provider [phone] Soren ADHIKARI, Dr. Canela Primary Care Provider Soren ADHIKARI, Dr. Canela Attending Provider Soren ADHIKARI, Dr. Canela Primary Care Physician Rai PA, Laura Nurse Practitioner Abisai ADKINS, Dr. Reed Attending Physician Abisai ADKINS, Dr. Reed Nurse Practitioner Bill ADKINS, Dr. Villanueva Attending Physician Soren ADHIKARI, Dr. Canela Referring Provider Rai PA, Laura Attending Physician Dr. Hilton Doty DO Attending Physician Dr. Hilton Doty DO Nurse Practitioner [phone] Dr. Lupillo Quintero MD Attending Physician Laura Bowling Referring Provider DOTY, HILTON L Attending Unavailable [...] Unavailable DOTY, HILTON L Primary Care Unavailable Doty, Hilton Primary Care Unavailable Stone Quiñonez Attending Unavailable Doty, Hilton Primary Care Unavailable Doty, Hilton Attending Unavailable Doty, Hilton Referring Unavailable Doty, Hilton Primary Care Unavailable Doty, Hilton Attending Unavailable Doty, Hilton Attending Unavailable Doty, Hilton Referring Unavailable Doty, Hilton Primary Care Unavailable [place], Derek Attending Unavailable Doty, Hilton Primary Care Unavailable Abisai, Derek Referring Unavailable [place], Derek Attending Unavailable Doty, Hilton Primary Care Unavailable Abisai, Derek Referring Unavailable Doty, Hilton Primary Care Unavailable Rai, Laura Attending Unavailable Rai, Laura Referring Unavailable Doty, Hilton Referring Unavailable Doty, Hilton Primary Care Unavailable Akash Joe Attending Unavailable Doty, Hilton Referring Unavailable Doty, Hilton Primary Care Unavailable Rai, Laura Attending Unavailable Rai, Laura Attending Unavailable Rai, Laura Referring Unavailable Doty, Hilton Primary Care Unavailable Abisai, Derek Referring Unavailable [place], Derek Attending Unavailable Rai, Laura Consulting Unavailable Doty, Hilton Primary Care Unavailable Doty, Hilton Primary Care Unavailable [place] HAND RUG CLEANER, Nilda Attending Unavailable Vinecnzo HAND RUG CLEANER, Nilda Referring Unavailable Doty, Hilton Primary Care Unavailable Le, Charlie Attending Unavailable Le, Charlie Referring Unavailable Doty, Hilton Primary Care Unavailable Rai, Laura Referring Unavailable Rai, Laura Attending Unavailable Kay Khan Attending Unavailable Kay Khan Referring Unavailable Doty, Hilton [...] Attending Unavailable Doty, Hilton Primary Care Unavailable Priscilla Mart Attending Unavailabl e Priscilla Mart Referring Unavailabl e Abisai, Derek Attending Unavailable Doty, Hilton Referring Unavailable Doty, Hilton Primary Care Unavailable [place], Derek Attending Unavailable Doty, Hilton Referring Unavailable Doty, Hilton Primary Care Unavailable Doty, Hilton Referring Unavailable Rai, Laura Attending Unavailable Doty, Hilton Primary Care Unavailable Doty, Hilton Referring Unavailable Doty, Hilton Primary Care Unavailable Priscilla Mart Attending Unavailabl e Doty, Hilton Referring Unavailable Doty, Hilton Primary Care Unavailable Rai, Laura Attending Unavailable Doty, Hilton Referring Unavailable Doty, Hilton Primary Care Unavailable Rai, Laura Attending Unavailable Doty, Hilton Referring Unavailable Doty, Hilton Primary Care Unavailable Rai, Laura Attending Unavailable [place], Derek Attending Unavailable Rai, Laura Referring Unavailable Doty, Hilton Primary Care Unavailable Doty, Hilton Referring Unavailable Doty, Hilton Primary Care Unavailable [place] HAND RUG CLEANER, Nilda Attending Unavailable [place], Derek Attending Unavailable Doty, Hilton Primary Care Unavailable [place], Derek Attending Unavailable Rai, Laura Consulting Unavailable Doty, Hilton Primary Care Unavailable Abisai, Derek Referring Unavailable Abisai, Derek Consulting Unavailable Abisai, Derek Consulting Unavailable Abisai, Derek Attending Unavailable Doty, Hilton Primary Care Unavailable [place], Derek Referring Unavailable Doty, Hilton Referring Unavailable Doty, Hilton Primary Care Unavailable Doty, Hilton Consulting Unavailable Lupillo Quintero Attending Unavailable Abisai, Derek Attending Unavailable Doty, Hilton Primary Care Unavailable Abisai, Derek Referring Unavailable Abisai, Derek Attending Unavailable Doty, Hilton Primary Care Unavailable Rai, Laura Referring Unavailable Doty, Hilton Primary Care Unavailable Rajinder Hinton Attending Unavailable Rajinder Hinton Referring Unavailable Hilton Doty Attending Unavailable Hilton Doty Referring Unavailable Hilton Doty Primary Care Unavailable Hilton oDty Primary Care Unavailable Laura Rai Referring Unavailable Laura Rai Attending Unavailable Rajinder Hinton Consulting Unavailable Dr. Hilton Doty DO Primary Care Physician Dr. Hilton Doty DO Attending Physician Dr. Hilton Doty DO Referring Provider Dr. Derek Barone MD Attending Physician Laura Bowling Attending Physician Dr. Derek Barone MD Referring Provider Abisai ADKINS, Dr. Reed Nurse Practitioner [phone] Allergies Allergy Classification Reported Allergen(s) Allergy Type Date of Onset Reaction(s) Facility Penicillins (antibiotic) (3 sources) Penicillins Drug Allergy 4 Unknown [facility] (5 sources) Penicillins; Translations: [PENICILLINS] Drug Intolerance 4 Unknown [facility] Work Phone: (20 sources) Penicillins Drug Intolerance 4 Unknown [facility] Work Phone: (20 sources) Penicillins Allergy to substance 3 Unknown, Anaphylaxis (13 sources) Penicillins Drug Intolerance 4 Unknown [facility] (1 source) Penicillins Drug allergy (disorder) 5 Repository Medications Current Medications Medication Drug Class(es) Dates Sig (Normalized) Sig (Original) [id number] 200 actuat albuterol 0.09 mg/actuat metered dose inhaler (14 sources) beta2-Adrenergi c Agonist Start: 10-26-2024 take [...] ug PO DAILY September 24, 2023 1:00am Complies with drug therapy Start: 09-28-2015 take 2 tablets by mo uth once daily Cholecalciferol, Vitamin D3, 2,000 unit cap Take 2 tablets by mouth once daily. 60 capsule 11 09/28/2015 Active Comment on above: Take 2 tablets by mo uth once daily. FLUoxetine 10 mg oral capsule (20 sources) Serotonin Reuptake Inhibitor Start: 12-12-2024 take 1 capsule by mouth once daily Fluoxetine (Prozac) 10 mg capsule Active 10 mg PO daily December 12, 2024 12:00am Complies with drug therapy Start: 10-26-2024 End: 01-14-2025 take 1 tablet by mouth once daily in the morning for anxiety FLUoxetine 10 mg tablet Indications: LIVIA (generalized anxiety disorder) Take 1 tablet by mouth once daily. In the morning for anxiety 90 tablet 1 10/26/2024 01/14/2025 Discontinued hydrocortisone 25 mg/ml topical cream (20 sources) [...] day as needed (hemorrhoids). Location: hemorrhoids LORazepam 0.5 mg oral tablet (20 sources) Benzodiazepine Start: End: take 1 tablet by mouth once daily as needed for anxiety Lorazepam 0.5 MG tablet Active 0.5 mg PO DAILY NEEDED as needed for Anxiety March 12, 2020 12:00am Complies with drug therapy Comment on above: Take 1 tablet by jose th once daily as needed (anxiety attack) for up to 30 days. naproxen 500 mg oral tablet (20 sources) Nonsteroidal Anti-inflammatory Drug Start: End: take 1 tablet by mouth twice daily as needed for pain Naproxen (Naprosyn) 500 mg tablet Active 500 mg PO TWICE A DAY as needed for pain 20 February 05, 2024 12:00am Complies with drug therapy Comment on above: Take 1 tablet by jose th twice daily as needed (for pain/inflammation). Take with food. Take 1 tablet by jose th two times a day as needed (for pain/inflammation). Take with food. ondansetron 4 mg disintegrating oral tablet (20 sources) Serotonin-3 Receptor Antagonist Start: take 1 tablet by mouth every eight hours as needed for nausea Ondansetron 4 mg tablet,disintegrating Active 4 mg PO EVERY 8 HOURS NEEDED as needed for Nausea 10 February 05, 2024 12:00am Complies with drug therapy spironolactone 25 mg oral tablet (20 sources) Aldosterone Antagonist Start: take 1 tablet by mouth once daily Spironolactone 25 mg tablet Active 25 mg PO daily December 12, 2024 12:00am Complies with drug therapy Start: 10-26-2024 End: 05-18-2025 take 1 tablet by mouth once daily Spironolactone 50 mg tablet Discontinued 50 mg PO daily November 02, 2024 12:00am May 18, 2025 11:26am traMADol hydrochloride 50 mg oral tablet (14 sources) Opioid Agonist Start: 02-06-2025 End: 03-21-2025 take 1 tablet by mouth every eight hours as needed for pain Tramadol 50 mg tablet Active 50 mg PO EVERY 8 HOURS as needed for pain February 06, 2025 12:00am Complies with drug therapy Start: 01-14-2025 End: 01-21-2025 take 1 tablet by mouth every eight hours as needed for pain traMADol (ULTRAM) 50 mg tablet Indications: Left leg pain , Leg heaviness Take 1 tablet by mouth every 8 hours as needed for pain for up to 7 days. 21 tablet 01/14/2025 01/21/2025 Active traZODone hydrochloride 50 mg oral tablet (20 sources) Serotonin Reuptake Inhibitor Start: 09-02-2023 End: 03-20-2025 take 1 tablet by mouth at bedtime Trazodone 50 mg tablet Active 50 mg PO AT BEDTIME September 25, 2023 1:00am Complies with drug therapy Comment on above: Take 1-2 tablets by mouth daily at bedtime. Completed/Discontinued Medications Medication Drug Class(es) Dates Sig (Normalized) Sig (Original) acetaminophen 325 mg / HYDROcodone bitartrate 5 mg oral tablet (20 sources) Opioid Agonist Start: 04-30-2017 End: 05-07-2017 Hydrocodone-Acetami nophen 1 TABLET tablet Discontinued 1 - 2 {tbl} PO EVERY 6 HOURS NEEDED as needed for Pain 10 0 April 30, 2017 7:10am May 07, 2017 [...] Take 1 tablet by jose once daily. benzonatate 100 mg oral capsule (20 sources) Non-narcotic Antitussive Start: 09-26-2023 End: 10-14-2023 Benzonatate 100 mg capsule Discontinued 100 mg PO 2 to 3 times per day as needed for cough 30 0 September 26, 2023 1:00am October 14, 2023 10:20am buPROPion hydrochloride 75 mg oral tablet (20 sources) Aminoketone Start: 06-03-2023 End: 02-06-2025 take 2 tablets by mouth in the [...] afternoon busPIRone hydrochloride 5 mg oral tablet (20 sources) Start : 05-07 End: 09-24 Buspirone 5 MG tablet Discontinued 5 mg PO NEEDED as needed for Anxiety May 07, 2017 12:00am September 24, 2023 9:37am chlorthalidone 25 mg oral tablet (20 sources) Thiazide-like Diuretic Start : 03-12 End: 04-05 take 1 tablet by mouth once daily Chlorthalidone 25 MG tablet Discontinued 25 mg PO DAILY March 12, 2020 12:00am November 02, 2024 11:32am Comment on above: Take 1 tablet by jose th once daily. As needed for edema TAKE 1 TABLET BY JOSE TH ONCE DAILY NEEDED FOR EDEMA dexamethasone 6 mg oral tablet (20 sources) Corticosteroid Start : 05-26 End: 12-12 take 1 tablet by mouth once daily Dexamethasone 6 mg tablet Discontinued 6 mg PO DAILY 5 May 26, 2024 12:00am December 12, 2024 9:40am doxycycline hyclate 100 mg oral capsule (20 sources) Tetracycline-class Drug Start : 11-19 End: 11-29 take 1 capsule by mouth twice daily Doxycycline Hyclate 100 mg capsule Discontinued 100 mg PO TWICE A DAY November 20, 2023 12:00am November 29, 2023 12:00am November 30, 2023 12:06am Acute sinusitis, unspecified furosemide 20 mg oral tablet (20 sources) Loop Diuretic Start : 12-11 End: 10-17 take 0.5-1 tablets by mouth once daily at breakfast furosemide (LASIX) 20 mg tablet Take 0.5-1 tablets by mouth daily with breakfast. 90 tablet 1 12/12/2019 10/17/2024 Discontinued Comment on above: Take 0.5-1 tablets b y mouth daily with breakfast. hydroxychloroquine sulfate 200 mg oral tablet (20 sources) Antimalarial, Antirheumatic Agent Start : 05-18 take 1 tablet by mouth once daily Hydroxychloroquine (Plaquenil) 200 mg tablet Discontinued 200 mg PO DAILY May 18, 2025 11:25am Start: 05-18-2025 take 1 tablet by jose th once daily Hydroxychloroquine (Plaquenil) 200 mg tablet Discontinued 200 mg PO DAILY May 18, 2025 11:25am Start: 12-23-2024 take 1 tablet by jose th once daily hydrOXYchloroQUINE (PLAQUENIL) 200 mg tablet Indications: Inflammatory arthritis Take 1 tablet by mouth once daily. 90 tablet 1 12/23/2024 Active Start: 09-25-2023 End: 05-18-2025 Hydroxychloroquine (Plaqueni l) 200 mg tablet Discontinued 300 mg PO DAILY September 25, 2023 1:00am May 18, 2025 11:26am Start: 09-02-2023 End: 08-01-2024 take 1 tablet [...] 1 tablet by jose th once daily. levonorgestrel 0.067260 mg/hr intrauterine system (20 sources) Progestin, Progestin-containing Intrauterine Device Start: 06-11-2023 End: 06-11-2023 Levonorgestrel (Mirena) 21 mcg/24 hours (8 yrs) [...] September 24, 2023 9:39am Start: 06-03-2023 End: 06-12-2025 Phentermine-Topiramate (Qsym ia) 11.25-69 mg capsule, ER multiphase 24 hr Active 1 NMA PO DAILY September 24, 2023 1:00am Complies with drug therapy Start: 02-05-2023 End: 05-06-2023 take 1 capsule [...] Discontinued 20 meq PO TWICE A DAY 6 April 04, 2024 12:00am November 02, 2024 11:32am Dvakyhifw-Bhlttfnfz-Hiufduvh (20 sources) Start: 08-16-2023 End: 09-24-2023 Chvbvraev-Cgnznjrys-Lmeqzwrp (Meena) 40-1-0.5 mg tablet Discontinued 1 {tbl} PO DAILY 01 09August 16, 2023 1:00am September 24, 2023 9:38am Start: 08-16-2023 End: 09-24-2023 Hqzsmotbq-Mhszuxxpv-Waoypccp (Asimmbcharles) 40-1-0.5 mg tablet Discontinued 1 {tbl} PO DAILY August 16, 2023 1:00am September 24, 2023 9:38am Start: 08-16-2023 End: 09-24-2023 Ssngqnhav-Uhazzenuy-Qvkafhxp dr (Myfembree) 40-1-0.5 mg tablet Discontinued 1 {tbl} PO DAILY August 16, 2023 12:00am September 24, 2023 8:38am Start: 08-16-2023 End: 09-24-2023 take 1 tablet by mouth once daily Wvunofxni-Ivivtwtjr-Mlbfrqdbkh (Myfembre e) 40-1-0.5 mg tablet Discontinued 1 TABLET PO DAILY August 16, 2023 1:00am September 24, 2023 9:38am Start: 08-16-2023 take 1 tablet by jose th once daily Hafvcjkbi-Gwqhtvfns-Nbiycojipo (Myfembre e) 40-1-0.5 mg tablet Active 1 TABLET PO DAILY August 16, 2023 12:00am Problems Active Problems Problem Classification Problem Date Documented Date Episodic/Chronic Adjustment disorders (20 sources) Reactive depression (situational); Translations: [Adjustment disorder with depressed mood] Onset: 11-27-2022 Chronic Anxiety disorders (20 sources) Generalized anxiety disorder; Translations: [Generalized anxiety disorder] Onset: 03-04-2019 03-04-2019 Chronic Cardiac dysrhythmias (20 sources) ECG: sinus bradycardia; Translations: [Bradycardia, unspecified] 03-13-2020 Episodic Coagulation and hemorrhagic disorders (1 source) Spontaneous ecchymoses; Translations: [Spontaneous ecchymoses] Onset: 04-05-2025 Episodic Complication of device; implant or graft (1 source) Pain; Translations: [Pain due to genitourinary prosthetic devices, implants and grafts, initial encounter] Episodic Contraceptive and procreative management (6 sources) Encounter for removal of intrauterine contraceptive device; Translations: [Encounter for removal of intrauterine contraceptive device] 06-11-2023 Episodic Disorders of lipid metabolism (20 sources) Dyslipidemia; Translations: [Hyperlipidemia, unspecified] Onset: 07-18-2019 07-18-2019 Chronic E Codes: Fall (20 sources) Fall from ladder; Translations: [Fall on and from ladder, initial encounter] 02-13-2024 Episodic Fracture of upper limb (20 sources) Fracture of distal phalanx of finger [...] other respiratory manifestations] 09-26-2023 Episodic Intracranial injury (20 sources) Concussion injury of body structure; Translations: [Concussion] 02-13-2024 Episodic Menopausal disorders (20 sources) Menopause finding; Translations: [Menopausal and female climacteric states] Onset: 08-02-2024 08-02-2024 Chronic Menstrual disorders (20 sources) Menorrhagia; Translations: [Excessive and frequent menstruation with regular cycle] Onset: 03-04-2019 03-04-2019 Chronic Comment on above: failed IUD; failed IUD Miscellaneous mental health disorders (2 sources) Insomnia; Translations: [Other insomnia not due to a substance or known physiological condition] 12-30-2023 Chronic Nonspecific chest pain (20 sources) Chest wall pain; Translations: [Other chest pain] 04-12-2024 Episodic Nutritional deficiencies (20 sources) Vitamin D deficiency; Translations: [Vitamin D deficiency, unspecified] Onset: 10-13-2017 10-13-2017 Chronic Osteoarthritis (20 sources) Arthritis; Translations: [Unspecified osteoarthritis, unspecified site] Onset: 04-25-2024 Chronic Other and unspecified benign neoplasm (20 sources) Leiomyoma; Translations: [Benign neoplasm of connective [...] gangrene] Onset: 09-15-2014 Chronic Other circulatory disease (20 sources) H/O: hypertension; Translations: [Personal history of other diseases of the circulatory system] 03-12-2020 Episodic Other connective tissue disease (20 sources) H/O: rheumatoid arthritis; Translations: [Personal history of other diseases of the musculoskeletal system and connective tissue] 03-12-2020 Episodic Other connective tissue disease (15 sources) Pain in left lower limb; Translations: [Pain in left leg] Onset: 01-17-2025 01-17-2025 Episodic Other connective tissue disease (15 sources) Heavy legs; Translations: [Other symptoms and signs involving the musculoskeletal system] Onset: 01-17-2025 01-17-2025 Episodic Other connective tissue disease (1 source) Pain in bilateral legs; Translations: [Pain in right leg] 03-13-2025 Episodic Other connective tissue disease (2 sources) Pain in right leg; Translations: [Leg pain, bilateral] Onset: 03-13-2025 Episodic Other connective tissue disease (4 sources) Pain in left leg; Translations: [Leg pain, bilateral] Onset: 01-17-2025 Episodic Other connective tissue disease (3 sources) Other symptoms and signs involving the musculoskeletal system; Translations: [Leg heaviness] Onset: 01-17-2025 Episodic Other diseases of veins and lymphatics (20 sources) Vascular insufficiency; Translations: [Venous insufficiency (chronic) (peripheral)] 09-08-2024 Episodic Other diseases of veins and lymphatics (2 sources) Venous insufficiency (chronic) (peripheral); Translations: [Venous insufficiency (chronic) (peripheral)] Onset: 05-19-2025 Episodic Other female genital disorders (1 source) Postcoital bleeding; Translations: [Postcoital and contact bleeding] Chronic Other female genital disorders (20 sources) Abnormal uterine bleeding; Translations: [Abnormal uterine [...] injuries and conditions due to external causes (20 sources) Closed injury of head; Translations: [Unspecified injury of head, initial encounter] 02-13-2024 Episodic Other lower respiratory disease (20 sources) Dyspnea; Translations: [Shortness of breath] Onset: 04-25-2024 04-25-2024 Episodic Other lower respiratory disease (5 sources) Wheezing; Translations: [Wheezing] 10-26-2024 Episodic Other nutritional; endocrine; and metabolic disorders (20 sources) Obese class I; Translations: [Obesity, unspecified] Onset: 01-16-2016 01-16-2016 Chronic Other nutritional; endocrine; and metabolic disorders (20 sources) Body mass index 40+ - severely obese; Translations: [Morbid (severe) obesity due to excess calories] Onset: 10-13-2017 10-13-2017 Chronic Other skin disorders (1 source) Eruption; Translations: [Rash and other nonspecific skin eruption] Episodic Other upper respiratory infections (2 sources) Acute sinusitis; Translations: [Acute sinusitis, unspecified] 11-20-2023 Episodic Pleurisy; pneumothorax; pulmonary collapse (20 sources) Pleurisy; Translations: [Pleurisy] 03-13-2020 Episodic Residual codes; unclassified (20 sources) Past history of procedure; Translations: [Other specified postprocedural states] 10-14-2023 Episodic Comment on above: uterine ablation 10/02 024 -JV Residual codes; unclassified (1 source) Other specified postprocedural states; Translations: [Other postprocedural status] 10-14-2023 Episodic Rheumatoid arthritis and related disease (20 sources) Inflammatory polyarthropathy; Translations: [Inflammatory polyarthropathy] Onset: 04-14-2015 04-14-2015 Chronic Screening and history of mental health and substance abuse codes (20 sources) H/O: depression; Translations: [Personal history of other mental and behavioral disorders] 03-12-2020 Episodic Sexually transmitted infections (not HIV or hepatitis) (20 sources) Human papillomavirus deoxyribonucleic acid test positive, high risk on cervical specimen; Translations: [Cervical high risk human papillomavirus (HPV) DNA test positive] 09-14-2023 Episodic Spondylosis; intervertebral disc disorders; other back problems (4 sources) Thoracic back pain; Translations: [Pain in thoracic spine] 02-08-2024 Episodic Superficial injury; contusion (20 sources) Contusion of right shoulder; Translations: [Contusion [...] Classification Problem Date Documented Da te Episodic/Chronic Fluid and electrolyte disorders (20 sources) Hypokalemia; Translations: [Hypokalemia] Onset: 04-25-2024 04-25-2024 Episodic Inflammation; infection of eye (except that caused by tuberculosis or sexually transmitteddisease) (20 sources) Eczematous dermatitis of bilateral eyelids; Translations: [Eczematous dermatitis of right upper eyelid] Onset: 01-21-2022 Episodic Malaise and fatigue (20 sources) Fatigue; Translations: [Other fatigue] Onset: 10-13-2017 10-13-2017 Episodic Nausea and vomiting (20 sources) Nausea; Translations: [Nausea] Onset: 04-25-2024 04-25-2024 Episodic Other connective tissue disease (1 source) Other specified soft tissue disorders; Translations: [Other specified soft tissue disorders] Onset: 01-03-2025 Episodic Other connective tissue disease (1 source) Pain in leg, unspecified; Translations: [Pain in leg, unspecified] Onset: 11-02-2024 Episodic Other lower respiratory disease (3 sources) Shortness of breath; Translations: [SOB (shortness of breath)] Onset: 04-25-2024 Episodic Other lower respiratory disease (2 sources) Wheezing; Translations: [Wheezing] Onset: 10-26-2024 Episodic Other lower respiratory disease (1 source) Dyspnea, unspecified; Translations: [Dyspnea, unspecified] Onset: 10-23-2024 Episodic Other non-traumatic joint disorders (20 sources) Hand joint stiff; Translations: [Stiffness of unspecified hand, not elsewhere classified] Onset: 09-15-2014 09-15-2014 Episodic Other non-traumatic joint disorders (20 sources) Pain in right knee; Translations: [Pain in joint, lower leg] Onset: 10-13-2017 10-13-2017 Episodic Other screening for suspected conditions (not mental disorders or infectious disease) (8 sources) Patient encounter status; Translations: [Encounter for screening mammogram for malignant neoplasm of breast] Onset: 10-06-2024 Episodic Residual codes; unclassified (20 sources) Edema; Translations: [Edema, unspecified] Onset: 10-30-2018 10-30-2018 Episodic Residual codes; unclassified (20 sources) Bilateral lower limb edema; Translations: [Localized edema] Onset: 01-21-2022 Episodic Residual codes; unclassified (20 sources) Flushing; Translations: [Flushing] Onset: 10-28-2022 Episodic Residual codes; unclassified (2 sources) Localized edema; Translations: [Bilateral leg edema] Onset: 01-21-2022 Episodic Unclassified (20 sources) History of ureteral stone 04-21-2022 Results Test Name Value Interpretation Reference Range Facility MR/BMSAlf 05-18-2025 MR/BMS.SWETHA [facility] Vascular Surgery [address] [place] [address] OFFICE VISIT Date of Service: 05/18/25 MR#: [id number] Acct: [id number] Name: WANDA REYNA Rep #: [id number] : 1980 Provider: JAYE Montero Age/Sex: 45/F Location: [facility] Status: Signed Intake Vital Signs 01/10/25 09:01 05/04/25 11:51 05/18/25 11:35 Height 5 ft 6 in 5 ft 6 in Weight: 195 lb BP 136/82 H Blood Pressure Location Lt brachial Position Sitting Respiration 16 Pulse 67 Pulse Source Monitor Temp 97.8 F Temp Source Temporal Pulse Oximetry (%) 98 Oxygen Delivery Method room air Intake Visit Reasons: Post Sclerotherapy 2-4 WK FU Is patient in pain?: No Allergies Penicillins (PCN) Allergy (Severe, Verified 05/18/25 11:36) Anaphylaxis Medications ???Medication ???Instructions ???Recorded ???Confirmed ???Type lorazepam 0.5 mg tablet 0.5 mg PO DAILY PRN PRN Anxiety 05/18/25 History cholecalciferol (vitamin D3) 125 125 mcg PO DAILY 09/24/23 05/18/25 History mcg (5,000 unit) capsule phentermine 11.25 mg-topiramate ER 1 cap PO DAILY 09/24/23 05/18/25 History 69 mg capsule,ext.[id number] mphas (Qsymia) trazodone 50 mg tablet 50 mg PO QHS 09/25/23 05/18/25 His tory naproxen 500 mg tablet (Naprosyn) 500 mg PO BID PRN pain #20 tabs 0 02/05/24 05/18/25 Rx ondansetron 4 mg disintegrating 4 mg PO Q8H PRN PRN Nausea #10 tab s 02/05/24 05/18/25 Rx tablet bupropion HCl 75 mg tablet 150 mg PO BID 12/12/24 05/18/25 Hi story fluoxetine 10 mg capsule (Prozac) 10 mg PO QDAY 12/12/24 05/18/25 H istory spironolactone 25 mg tablet 25 mg PO QDAY 12/12/24 05/18/25 Hi story tramadol 50 mg tablet 50 mg PO Q8 PRN pain 02/06/2505/03 History hydroxychloroquine 200 mg tablet 200 mg PO DAILY 05/18/25 05/18/25 History (Plaquenil) Is last menstrual period known: No Post menopausal: No Patient : No Have you fallen in the past year?: No PFSH Medical History Status post hysteroscopy [...] History current occupational status: employed 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 She has already noticed improvement in her LLE symptoms since the procedure. She has continued to wear compression stockings as advised. She still has some symptoms with intermittent achiness in her RLE but not to the point where she would wish to pursue procedural intervention there. ROS General General: Yes weight change; No appetite, fatigue, colon cancer, breast cancer or weakness HEENT HEENT: No difficulty swallowing, eye injury, eye surgery, swollen glands or hoarseness Endo Endocrine: Yes cold intolerance; No thyroid disease, diabetes mellitus, thyroid cancer, Hair loss or heat intolerance Skin Skin: No rash or changing moles Additional Details: bruises on legs Musc Musculoskeletal: Yes arthritis and joint pain; [...] No wheezing Gastro Gastrointestinal: No abdominal pain, Yes nausea or vomiting, No diarrhea, No constipation, [...] No confusion, No convulsions, No disequilibrium, No dizzin (more content not included)... Normal Venous Duplex US, Unilateral on 05-08-2025 Venous Duplex US, Unilateral [facility] Cardiovascular Services [address] [place] [address] Venous Duplex US, Unilateral 05/08/25 0813 MR#: [id number] Acct: [id number] Name: WANDA REYNA Rep #: [id number] : 1980 45 From: Derek Barone MD Attending Dr: Dr. Derek Barone MD Status: BANDAR SNOW Ordering Dr: Derek Barone MD Date: 05/08/25 Location: CVS Sex: F C Admitted: Reason For Study Reason For Study: S/P Lt SSV Ablation RIGHT LEFT CFV is compressible, spontaneous, phasic, competent HX Lt GSV Ablation Throughout. and demonstrates normal augmentation. SSV is dilated and NONCOMPRESSIBLE with hypoechoic Procedure intraluminal echoes. Finding is consistent with This is a venous duplex using B-mode, color flow and revent Venaseal procedure. spectral Doppler. S/P Lt SSV Chem ablation. Exam performed in department. CFV is compressible, spontaneous, phasic, competent, The exam was diagnostic. and demonstrates normal augmentation. FV is compressible, spontaneous, phasic, competent and demonstrates normal augmentation. POP V is compressible, spontaneous, phasic, competent and demonstrates normal augmentation. T/P Trunk is compressible. PTV is compressible. LT PerV is compressible. VL/Venous Duplex US, Unilateral Interpretation Summary Deep veins of the left lower extremity are patent and compressible segmentally. There is no evidence of left lower extremity deep vein thrombosis. Left small saphenous vein occluded consitent with recent ablation Ordering Physician: Derek Barone Referring Physician: Hilton Doty Performed By: Isreal Hutchins RVT and Student 05/08/251728 Date Derek Barone MD CC: Dr. Derek Barone MD; Dr. Hilton Doty, Date Dictated: 05/08/25812 Date Transcribed: 05/08/251728 Burner Shaft: Signed Normal Venous duplex ultrasound rep ortOrdered By: Derek Barone on 05-08-2025 US Vein [facility] Cardiovascular Services [address] [place] [address] Venous Duplex US, Unilateral 05/08/25812 MR#: [id number] Acct: [id number] Name: WANDA REYNA Rep #:[id number] : 1980 45 From: Derek Quintero Attending Dr: Dr. Derek Barone MD S tatus: REG CLI Ordering Dr: Derek Barone MD Date: 01/25 Location: CVS Sex: F C Admitted: Reason For Study Reason For Study: S/P Lt SSV Ablation RIGHT LEFT CFV is compressible, spontaneous, phasic, competent HX Lt GSV Ablation Throughout. and demonstrates normal augmentation. SSV is dilatedand NONCOMPRESSIBLE with hypoechoic Procedure intraluminal echoes. Finding is consistent with This is a venous duplex using B-mode, color flow and revent Venaseal procedure. spectral Doppler. S/P Lt SSV Chem ablation. Exam performed in department. CFV is compressible, spontaneous, phasic, competent, The exam was diagnostic. and demonstrates normal augmentation. FV is compressible, spontaneous, phasic, competent and demonstrates normal augmentation. POP V is compressible, spontaneous, phasic, competent and demonstrates normal augmentation. T/P Trunk is compressible. PTV is compressible. LT PerV is compressible. VL/Venous Duplex US, Unilateral Interpretation Summary Deep veins of the left lower extremity are patent and compressible segmentally. There is no evidence of left lower extremity deep vein thrombosis. Left small saphenous vein occluded consitent with recent ablation Ordering Physician: Derek Barone Referring Physician: Hilton Doty Performed By: Isreal Hutchins RVT and Student 05/08/251728 Date _ Derek Barone MD CC: Dr. Derek Barone MD; Dr. Hilton Doty DO ~ Date Dictated: 05/08/25812 Date Transcribed: 05/08/251728 Burner Shaft: Signed Work Phone: Operative Reporton 5 Operative Report [facility] Medical Records Department [address] [place] [address] Operative Report 05/04/251746 MR#: [id number] Acct: [id number] Name: WANDA REYNA Rep #: [id number] : 1980 45 From: Derek Barone MD PCP: Dr. Hilton Doty DO Status:[facility] Location: [facility] Operative Report (Standard) Operative Information Date of Procedure: 05/04/25 Pre-Operative Diagnosis: Venous insufficiency with pain refractory to compression therapy Post-Operative Diagnosis: Same Surgery/Procedure Performed: Left small saphenous foam ablation dance entertainer: No Type of Anesthesia: Local and Sedation,Conscious Procedure Start Time: 13:30 Procedure Stop Time: 13:50 Select all DRAINS/GRAFTS/IMPLANTS that apply: None Estimated Blood Loss: 1 Specimen collected: No Description of surgery: HPI: Patient is a 45-year-old female with venous insufficiency with pain, heaviness, tightness worse at the end of the day that is refractory to compression therapy. She previously underwent great saphenous vein ablation with only some improvement in her symptoms. She has reflux throughout the small saphenous vein so she presents now for foam ablation. Description of procedure: Upon obtaining informed consent and verification of correct patient procedure and site the patient was taken to the [facility] System Dispatcher where she was positioned prepped and draped in usual sterile fashion. Timeout was performed Sedation ministered with Versed and fentanyl. The small saphenous vein was interrogated with ultrasound and found to be of adequate caliber and continuous with no significant tortuosity or branching noted. Skin overlying the vessel with above the posterior ankle was anesthetized 1% lidocaine the vessel accessed with a micropuncture needle wire. This then exchanged for micropuncture sheath through which Varithena was infused under ultrasound guidance with manual pressure held prior to confluence with the deep system below the popliteal fossa. Manual pressure was held the site for 3 minutes and the vessel was assessed with no evidence of foam within the deep system and adequate transit of the foam throughout the small saphenous vein. The micropuncture sheath was then withdrawn and manual pressure until hemostasis was observed. Deejay wrap was then applied and patient taken recovery with plan discharged to home. Surgical Findings: See above Complications Complications: No 05/04/250 Cosigner Signature (if applicable): CC: Dr. Derek Barone MD; Dr. Hilton Doty DO Signed Normal Fact V Leiden Mutationon FACTOR V LEIDEN Comment Normal . Comment on above: Result Comment: Resu lt: c.1601G>A (p.Qgh688Qwj) - Not Detected This result is not associated with an increased risk for venous thromboembolism. See Additional Clinical Information and Comments. Additional Clinical Information: Venous thromboembolism is a multifactorial disease influenced by genetic, environmental, and circumstantial risk factors. The c.1601G>A (p. [id number]) variant in the F5 gene, commonly referred to as Factor V Leiden, is a genetic risk factor for venous thromboembolism. Heterozygous carriers of this variant have a 6- to 8-fold increased risk for venous thromboembolism. Individuals homozygous for this variant (ie, with a copy of the variant on each chromosome) have an approximately 80-fold increased risk for venous thromboembolism. Individuals who carry both a c.*97G>A variant in the F2 gene and Factor V Leiden have an approximately 20-fold increased risk for venous thromboembolism. Risks are likely to be even higher in more complex genotype combinations involving the F2 c.*97G>A variant and Factor V Leiden (PMID: 45704369). Additional risk factors include but are not limited to: deficiency of protein C, protein S, or antithrombin III, age, male sex, personal or family history of deep vein thromboembolism, smoking, surgery, prolonged immobilization, malignant neoplasm, tamoxifen treatment, raloxifene treatment, oral contraceptive use, hormone replacement therapy, and . Management of thrombotic risk and thrombotic events should follow established guidelines and fit the clinical circumstance. This result cannot predict the occurrence or recurrence of a thrombotic event. Comment: Genetic counseling is recommended to discuss the potential clinical implications of positive results, as well as recommendations for testing family members. Genetic Coordinators are available for health care providers to discuss results at [phone] ([phone]). Test Details: Variant Analyzed: c.1601G>A (p. Ccf012Apv), referred to as Factor V Leiden Methods/Limitations: DNA analysis of the F5 gene (NM_000130.5) was performed by PCR amplification followed by electrophoresis. The diagnostic sensitivity is >99%. Results must be combined with clinical information for the most accurate interpretation. Molecular-based testing is highly accurate, but as in any laboratory test, diagnostic errors may occur. False positive or false negative results may occur for reasons that include genetic variants, blood transfusions, bone marrow transplantation, somatic or tissue-specific mosaicism, mislabeled samples, or erroneous representation of family relationships. This test was developed and its performance characteristics determined by [employer]. It has not been cleared or approved by the Food and Drug Administration. References: Radha S, Gloria AK, Finley R, Jean WW, Alejandro JH; ACMG Professional Practice and Guidelines Committee. Addendum: [place] [employer] consensus statement on factor V Leiden mutation testing. Lindsey Med. 2020Oct 05. doi: 10.1038/j91017-069-71846-s. PMID: 30799196. Mitch GUERRERO. Factor V Leiden Thrombophilia. 1998December 14 (Updated 2017Aug 06). In: Riaz MP, Robb HH, Todd RA, et al., editors. Elizabeth(Breanne) (Internet). [place] ([place]): [facility]; 3195-3277. Available from: https://www.ncbi.nlm.nih.gov/books/ACE4372/ Darek S, Gloria AK, Brito X, Vishnu B, Lia EB, Kell P, Michele CS; [facility] Laboratory Arc Welder Committee. Venous thromboembolism laboratory testing (factor V Leiden and factor II c. *97G>A), 2018 update: a technical standard of the [place] [employer] and Genomics (ACMG). Lindsey Med. 2018 Jul;20(12): 8642-2572. doi: 10.1038/w55997-590-9428-u. Epub 2017May 07. PMID: 85682235. Performed By: #### L 4500.5000 #### [id number] [place], [place], [address] Reviewed By Comment Normal . Comment on above: Result Comment: Tech nical Component performed at [facility] [place] Professional Component performed by: Dashawn Estrada, PhD, [facility] [id number], [facility], [address] [place] [address] Performed at: - [facility] [place] [address], [place], [place] [id number] Peanut Shaker: Jhonny Robles [facility], Phone: [phone] Performed By: #### L 4500.5000 #### [id number] [place], [place], [address] /BMSAlf 03-23-2025 /BMSEDU [facility] Vascular Surgery [address] [place], [place] [address] OFFICE VISIT Date of Service: 03/23/25 MR#: [id number] Acct: [id number] Name: WANDA REYNA Rep #: [id number] : 1980 Provider: JAYE Montero Age/Sex: 45/F Location: [facility] Status: Signed Intake Vital Signs 01/10/25 09:01 03/23/25 08:39 Height 5 ft 6 in Weight: 192 lb BP 112/72 Blood Pressure Location Lt brachial Position Sitting Respiration 18 Pulse 69 Pulse Source Monitor Temp 98.2 F Temp Source Temporal Pulse Oximetry (%) 100 Oxygen Delivery Method room air Intake Visit Reasons: Discuss Ablation Chief Complaint: establish care Is patient in pain?: Yes Allergies Penicillins (PCN) Allergy (Severe, Verified 03/23/25 08:38) Anaphylaxis Medications ???Medication ???Instructions ???Recorded ???Confirmed ???Type lorazepam 0.5 mg tablet 0.5 mg PO DAILY PRN PRN Anxiety 03/23/25 History cholecalciferol (vitamin D3) 125 125 mcg PO DAILY 09/24/23 03/23/25 History mcg (5,000 unit) capsule phentermine 11.25 mg-topiramate ER 1 cap PO DAILY 09/24/23 03/23/25 History 69 mg capsule,ext.zthnuql52oh mphas (Qsymia) hydroxychloroquine 200 mg tablet 300 mg PO DAILY 09/25/23 03/23/25 History (Plaquenil) trazodone 50 mg tablet 50 mg PO QHS 09/25/23 03/23/25 His tory naproxen 500 mg tablet (Naprosyn) 500 mg PO BID PRN pain #20 tabs 0 02/05/24 03/23/25 Rx ondansetron 4 mg disintegrating 4 mg PO Q8H PRN PRN Nausea #10 tab s 02/05/24 03/23/25 Rx tablet spironolactone 50 mg tablet 50 mg PO QDAY 11/02/24 03/23/25 Hi story bupropion HCl 75 mg tablet 150 mg PO BID 12/12/24 03/23/25 Hi story fluoxetine 10 mg capsule (Prozac) 10 mg PO QDAY 12/12/24 03/23/25 H istory spironolactone 25 mg tablet 25 mg PO QDAY 12/12/24 03/23/25 Hi story tramadol 50 mg tablet 50 mg PO Q8 PRN pain 02/06/25/08/27 History Is last menstrual period known: Yes Post menopausal: No Patient : No Have you fallen in the past year?: No PFSH Medical History Status post hysteroscopy [...] History current occupational status: employed 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 Recall that she has had venogram which showed some mild L iliac vein compression which did not meet threshold for stenting. She has had a venous reflux study showing left SSV reflux, right SFJ, accessory saphenous, small saphenous, and perforators but to this point her symptoms have been primarily in the LLE. At last OV, Dr. Barone recommended L SSV verithena were she to want to pursue ablation. She has since seen her PCP and had lab testing drawn to evaluate for bleeding/clotting disorders and would like to review those results. She continues to have significant aching pain and discomfort in her LLE, primarily the calf despite adherence to daily use of measured compression stockings, frequent ambulation/calf pumps throughout the day, and leg elevation at times of rest. ROS General General: Yes weight change and weakness (legs); No appetite, fatigue, colon cancer or breast cancer HEENT HEENT: No difficulty swallowing, eye injury, eye surgery, swollen glands or hoarseness Endo Endocrine: Yes cold intolerance; No thyroid disease, diabetes mellitus, thyroid cancer, Hair loss or heat intolerance Skin Skin: No rash or changing moles Additional Details: bruises on legs Musc Musculoskeletal: Yes arthritis and joint pain; [...] No wheezing Gastro Gastrointestinal: No abdominal pain, Yes nausea or (more content not included)... Normal Thrombotic Risk Profileon ANTICARDIO IgG < 9 Normal 0-14 Comment on above: Result Comment: Nega tive: <15 Indeterminate: 15 - 20 Low-Med Positive: >20 - 80 High Positive: >80 Performed By: #### L 100.0100, L501.6710, L506.1001, L500.4050, L506.0400, L501.9520, L503.6030, L503.0106 #### Laboratory [address] [place], [address] Anticardio.IgM < 9 Normal 0-12 Comment on above: Result Comment: Nega tive: <13 Indeterminate: 13 - 20 Low-Med Positive: >20 - 80 High Positive: >80 Performed By: #### L 100.0100, L501.6710, L506.1001, L500.4050, L506.0400, L501.9520, L503.6030, L503.0106 #### Laboratory [address] [place], [address] APCR 2.8 ratio Normal 2.2-3.5 Comment on above: Result Comment: The APCR result may be falsely increased (masking an abnormal, low APCR result) in patients on direct Xa inhibitor (e.g., rivaroxaban, apixaban, edoxaban) or a direct thrombin inhibitor (e.g., dabigatran) anticoagulant therapy due to assay interference by these drugs. Performed By: #### L 100.0100, L501.6710, L506.1001, L500.4050, L506.0400, L501.9520, L503.6030, L503.0106 #### Laboratory [address] [place], [address] aPTT Coag (Bld) [Time] 39.5 s Normal 0.0-43.5 [facility] Comment on above: Performed By: #### L 100.0100, L501.6710, L506.1001, L500.4050, L506.0400, L501.9520, L503.6030, L503.0106 #### Laboratory [address] [place], [address] AT3 FUNCTIONAL 114 Normal 75-135 Comment on above: Result Comment: Dire ct Xa inhibitor anticoagulants such as rivaroxaban, apixaban and edoxaban will lead to spuriously elevated antithrombin activity levels possibly masking a deficiency. Performed By: #### L 100.0100, L501.6710, L506.1001, L500.4050, L506.0400, L501.9520, L503.6030, L503.0106 #### Laboratory [address] [place], [address] B2 GLYCO I IGG <9 Normal 0-20 Comment on above: Result Comment: Resu lt Units: GPI IgG units The reference interval reflects a 3SD or 99th percentile interval, which is thought to represent a potentially clinically significant result in accordance with the International Consensus Statement on the classification criteria for definitive antiphospholipid syndrome (APS). J Thromb Haem 2006;4:295-306. Performed By: #### L 100.0100, L501.6710, L506.1001, L500.4050, L506.0400, L501.9520, L503.6030, L503.0106 #### Laboratory [address] [place], [address] B2 GLYCO I IGM <9 Normal 0-32 Comment on above: Result Comment: Resu lt Units: GPI IgM units The reference interval reflects a 3SD or 99th percentile interval, which is thought to represent a potentially clinically significant result in accordance with the International Consensus Statement on the classification criteria for definitive antiphospholipid syndrome (APS). J Thromb Haem 2006;4:295-306. Performed By: #### L 100.0100, L501.6710, L506.1001, L500.4050, L506.0400, L501.9520, L503.6030, L503.0106 #### Laboratory [address] [place], [address] DILUTE PT 37.1 sec Normal 0.0-47.6 Comment on above: Performed By: #### L 100.0100, L501.6710, L506.1001, L500.4050, L506.0400, L501.9520, L503.6030, L503.0106 #### Laboratory [address] [place], [place], [id number] (393 dPT CONFIRM % 1.11 Ratio Normal 0.00-1.34 Comment on above: Performed By: #### L 100.0100, L501.6710, L506.1001, L500.4050, L506.0400, L501.9520, L503.6030, L503.0106 #### Laboratory [address] [place], [place], [id number] (979 DRVVT 38.0 sec Normal 0.0-47.0 Comment on above: Performed By: #### L 100.0100, L501.6710, L506.1001, L500.4050, L506.0400, L501.9520, L503.6030, L503.0106 #### Laboratory [address] [place], [address] Factor II, DNA Comment Normal . Comment on above: Result Comment: Resu lt: c.*97G>A - Not Detected This result is not associated with an increased risk for venous thromboembolism. See Additional Clinical Information and Comments. Additional Clinical Information: Venous thromboembolism is a multifactorial disease influenced by genetic, environmental, and circumstantial risk factors. The c.*97G>A variant in the F2 gene is a genetic risk factor for venous thromboembolism. Heterozygous carriers have a 2- to 4-fold increased risk for venous thromboembolism. Homozygotes for the c.*97G>A variant are rare. The annual risk of VTE in homozygotes has been reported to be 1.1%/year. Individuals who carry both a c.*97G>A variant in the F2 gene and a c.1601G>A (p. Noi036Vax) variant in the F5 gene (commonly referred to as Factor V Leiden) have an approximately 20- fold increased risk for venous thromboembolism. Risks are likely to be even higher in more complex genotype combinations involving the F2 c.*97G>A variant and Factor V Leiden (PMID: [id number]). Additional risk factors include but are not limited to: deficiency of protein C, protein S, or antithrombin III, age, male sex, personal or family history of deep vein thromboembolism, smoking, surgery, prolonged immobilization, malignant neoplasm, tamoxifen treatment, raloxifene treatment, oral contraceptive use, hormone replacement therapy, and . Management of thrombotic risk and thrombotic events should follow established guidelines and fit the clinical circumstance. This result cannot predict the occurrence or recurrence of a thrombotic event. Comments: Genetic counseling is recommended to discuss the potential clinical implications of positive results, as well as recommendations for testing family members. Genetic Coordinators are available for health care providers to discuss results at [phone] ([phone]). Test Details: Variant analyzed: c.*97G>A, previously referred to as [id number] Methods/Limitations: DNA analysis of the F2 gene (NM_000506.5) was performed by PCR amplification followed by restriction enzyme analysis. The diagnostic sensitivity is >99%. Results must be combined with clinical information for the most accurate interpretation. Molecular-based testing is highly accurate, but as in any laboratory test, diagnostic errors may occur. False positive or false negative results may occur for reasons that include genetic variants, blood transfusions, bone marrow transplantation, somatic or tissue-specific mosaicism, mislabeled samples, or erroneous representation of family relationships. This test was developed and its performance characteristics determined by [facility]. It has not been cleared or approved by the Food and Drug Administration. References: Radha S, Gloria PENN, Tushar R, Jean WW, Alejandro JH; ACMG Professional Practice and Guidelines Committee. Addendum: [place] [employer] consensus statement on factor V Leiden mutation testing. Lindsey Med. 2020Oct 05. doi: 10.1038/g19808-960-59475-f. PMID: 25720632. Mitch GUERRERO. Prothrombin Thrombophilia. 2005Feb 24 [Updated 2020Sep 06]. In: Riaz MP, Rbob HH, Todd RA, et al., editors. Elizabeth(R) [Internet]. [place] ([place]): [facility], [place]; 2455-3855. Available from: https://www.ncbi.nlm.nih.gov/books/VOL1998/ Darek S, Gloria PENN, Daryl X, Vishnu B, Lia EB, Kell P, Michele CS; A[facility] Laboratory Arc Welder Committee. Venous thromboembolism laboratory testing (factor V Leiden and factor II c.*97G>A), 2018 update: a technical standard of the [place] [employer] and Genomics (ACMG). Lindsey Med. 2018 Jul;20(12):9595-4853. doi: 10.1038/[id number]-w. Epub 2017May 07. PMID: 13916157. Performed By: #### L 100.0100, L501.6710, L506.1001, L500.4050, L506.0400, L501.9520, L503.6030, L503.0106 #### Laboratory [address] [place], [address] HOMOCYSTEINE 6.9 umol/L Normal 0.0-14.5 Comment on above: Performed By: #### L 100.0100, L501.6710, L506.1001, L500.4050, L506.0400, L501.9520, L503.6030, L503.0106 #### Laboratory [address] [place], [address] Interpretation Comment: Normal . Comment on above: Result Comment: No l upus anticoagulant was detected. Performed By: #### L 100.0100, L501.6710, L506.1001, L500.4050, L506.0400, L501.9520, L503.6030, L503.0106 #### Laboratory [address] [place], [place], [id number] (441) Plasminogen Act 115 Normal 70-150 Comment on above: Performed By: #### L 100.0100, L501.6710, L506.1001, L500.4050, L506.0400, L501.9520, L503.6030, L503.0106 #### Laboratory [address] [place], [address] PROTEIN C,FUNC 96 Normal 73-180 Comment on above: Performed By: #### L 100.0100, L501.6710, L506.1001, L500.4050, L506.0400, L501.9520, L503.6030, L503.0106 #### Laboratory [address] [place], [address] PROTEIN S, FREE 94 Normal 61-136 Comment on above: Performed By: #### L 100.0100, L501.6710, L506.1001, L500.4050, L506.0400, L501.9520, L503.6030, L503.0106 #### Laboratory [address] [place], [place], [id number] (938) Reviewed By: Comment Normal . Comment on above: Result Comment: Tech nical Component performed at [facility] [place] Professional Component performed by: Tremaine Carpenter, PhD, [facility] [id number], [facility], [address] [place] [address] Performed at: [address] [id number] Peanut Shaker: Gabe Fry PhD, Phone: [phone] Performed at: - [facility] [address] [id number] Peanut Shaker: Man Dykes MD, Phone: [phone] Performed at: - [facility] [address] [place], [place] [id number] Peanut Shaker: Jhonny Robles [facility], Phone: [phone] Performed By: #### L 100.0100, L501.6710, L506.1001, L500.4050, L506.0400, L501.9520, L503.6030, L503.0106 #### [facility] [place], [address] [facility] 03-15-2025 CNPN Telephone (FAMPWS) -- WANDA REYNA ([id number]) 1980 F Date Time Provider Department 03/15/25 [facility] During your visit today, we recorded the following information about you: Rox Villarreal, ELSIE 03/15/2025 8:50 PM Signed Pt calling in to follow up with Dr. Doty after her appt on Thursday. Pt wanting to know if Dr. Doty contacted her vascular doctor and if so, what did they talk about. Pt received a voicemail today from Dr. Barone's office calling to say they spoke with her provider and they want to set up an appt with the nurse practitioner to go over the ablation. Pt thought that Dr. Doty wanted pt to see Dr. Barone only and not the nurse practitioner because she feels her pain is more severe and maybe she needs a stent. Pt just wondering what to expect when she calls Dr. Barone's office back. On review of chart, pt sent the following Elizabeth msg after she called in and spoke with nurse: Wanda Reyna to [facility] Clinical Pool (supporting Hilton Doty DO) RENA 03/15/25 7:22 PM I called this afternoon spoke with one of [facility] nurse I think I confused her my anxiety was bad today. Called vascular yesterday left vm about scheduling appt. I thought when vascular called today and left vm they meant my provider family doctor called them and they didn?t know why I wanted to come in due to Dr Barone already talked to me about ablation. But they went after talking with their provider they could get me in with Laura on the this month. Wasn?t able to call vascular back busy work day. Haven?t heard back from you yet didn?t know if nurse or you had got to talk with him yet. I know he did say he wants to try foam and possibly down road if that didn?t help he would look at maybe doing stunt but he is really against due to reasons I went over with you and if it fails it can also cause more pain for me. I?m so ready to have some relieve. I appreciate you very much and all you do ! The cream refill I thing I talked with you about need refill is Neomycin and polymyxin B and sulfate and dexamethasone ophthalmic ointment assisted sterile Thanks (Sent Elizabeth msg back to pt for further clarification on what cream she is asking for a refill for as none show up in past med hx). Hilton Doty DO 03/15/2025 9:14 PM Signed Please let her know that I haven't spoke to Dr. Barone or anyone in his office at all since I have seen her. I am not sure what the office is suggesting or recommending for her. I haven't had communication with their office DO Krissy Brady Jazzmin, MA 03/16/2025 8:00 AM Signed Pt informed via message. Please see additional message from patient regarding ointment. RENA 03/15/25 10:03 PM It is an eye ointment my eye doctor Dr. Genao had filled it before and Dr. Doty said to send her a message what it was called and she could send it in for me. Thank you and sorry I didn?t explain things more clearly. Thank you for all your help and getting back to me. Hilton Doty DO 03/17/2025 7:11 AM Signed What ointment? Hilton Doty DO Lois Rod MA 03/17/2025 7:42 AM Addendum 1) Regarding cream per pt's MyChart msgs below: The cream refill I thing I talked with you about need refill is Neomycin and polymyxin B and sulfate and dexamethasone ophthalmic ointment assisted sterile Thanks It is an eye ointment my eye doctor Dr. Genao had filled it before and Dr. Doty said to send her a message what it was called and she could send it in for me. (BR RN) 2) Another MyChart msg pt sent last evening the : When I called and talked to nurse at [facility] other night I had said that about they had said Your provider reached out to us. Then when I got off phone with [facility] nurse I listened to the message again but worker from [place]?s office was talking avril fast, after listening to it again they said they talked to their provider and didn?t know why I was coming in due to [place] already went over stuff with me. Sorry for the miss communication on my part. Is Dr. Doty still going to reach out to [place]? I didn?t reach out to schedule due to they have been closed when I get off work hoping to be able to call Thursday since I?m off work. Is Dr. Doty wanting to talk with [place] first before I schedule an appt? Just wanted to touch base on this. Thank you Hilton Doty DO 03/27/2025 4:40 PM Signed Please let her know that this isn't an eye ointment I can prescribed due to the steroids and antibiotic nature of the medication- needs to be from eye doctor please DO Mamadou Brady Amanda, RN 03/27/2025 7:22 PM Signed Called and left a voicemail for the Patient to call back and ask for a nurse to receive the providers message. ELSIE Bishop Amanda, RN 03/27/2025 (more content not included)... Normal [facility] Telephone (INTMWS) -- WANDA REYNA ([id number]) 1980 F Date Time Provider Department 03/15/25 HILTON DOTY INTMWS During your visit today, we recorded the following information about you: Catina Austin LPN 03/15/2025 3:59 PM Signed Electronic PA rec'd and completed. This was denied. Note from payer: Request Reference Number: [id number]. PHENT/TOPIRA CAP 11.25-69 is denied due to Plan Exclusion. For further questions, call . Payer: [employer] - [employer] Electronic appeal: Not supported Appeal instructions: Appeals are not supported through ePA. Please refer to the fax case notice for appeals information and instructions. Prior auth initiated by: Catina Austin LPN View History Notes Time User Attachment Attachment received from payer. 03/15/2025 3:17 PM [facility], Rx Priorauth In Document Medication Being Authorized phentermine-topiramate ER (QSYMIA) 11.25-69 mg 24 Hr Capsule Take 1 capsule by mouth once daily for 90 days. BMI 31.32 Dispense: 30 capsule Refills: 2 Start: 03/14/2025 End: 06/12/2025 Class: Normal Diagnoses: Inflammatory polyarthropathy (HCC) [M06.4]; Obesity, Class I, BMI 30-34.9 [E66.811]; Dyslipidemia [E78.5] This order has been released to its destination. To be filled at: [facility] [address] [place] [address] [address] - [phone] Catina Austin LPN 03/17/2025 3:55 PM Signed Pt notified via my chart. Allergies As of Date: 03/15/2025 Noted Allergy Reaction PENICILLINS 08/30/2013 16 - Unknown Date Reviewed: 03/13/2025 Reviewed by: Char Valencia LPN - Fully Assessed Reason for Visit: Insurance Authorization [[id number]] Prescriptions as of 03/17/2025 - traMADol (ULTRAM) 50 mg tablet Take 1 tablet by mouth every 8 hours as needed for pain for up to 7 days. - phentermine-topiramate ER (QSYMIA) 11.25-69 mg 24 Hr Capsule Take 1 capsule by mouth once daily for 90 days. BMI 31.32 - buPROPion (WELLBUTRIN) 75 mg tablet Take 2 tablets in the AM and 2 tablet in the afternoon - FLUoxetine (PROZAC) 10 mg capsule Take 1 capsule by mouth once daily. - hydrOXYchloroQUINE (PLAQUENIL) 200 mg tablet Take 1 tablet by mouth once daily. - hydrocortisone 2.5 % cream Apply 1 application to affected area two times a day as needed (hemorrhoids). Location: hemorrhoids - spironolactone (ALDACTONE) 50 mg tablet Take 1 tablet by mouth once daily. - albuterol HFA (PROVENTIL HFA, VENTOLIN HFA) 90 mcg/actuation inhaler Inhale 2 Puffs as instructed every 4 hours as needed for wheezing/shortness of breath. - traZODone (DESYREL) 50 mg tablet Take 1-2 tablets by mouth daily at bedtime. - naproxen (NAPROSYN) 500 mg tablet Take 1 tablet by mouth two times a day as needed (for pain/inflammation). Take with food. - Cholecalciferol, Vitamin D3, 2,000 unit cap Take 2 tablets by mouth once daily. Problem List As Of Date 03/15/2025 Noted Resolved Varicose veins of both legs [...] arthritis [M19.90] 04/25/2024 Perimenopausal symptoms [N95.1] 08/02/2024 Left leg pain [M79.605] 01/17/2025 Leg heaviness [R29.898] 01/17/2025 Encounter Status:Closed by CATINA AUSTIN on 03/17/25 Normal [facility] Activated protein C (APC) re sistance assayOrdered By: Hilton Doty on 03-13-2025 Activated protein C (APC) resistance assay 2.8 ratio 2.2-3.5 Comment on above: The APCR result may be falsely increased (masking anabnormal, low APCR result) in patients on direct Xainhibitor (e.g., rivaroxaban, apixaban, edoxaban) or adirect thrombin inhibitor (e.g., dabigatran) anticoagulanttherapy due to assay interference by these drugs. Blood or tissue coagulation factor II targeted mutation analysis by molecular geneticOrdered By: Hilton Doty on 03-13-2025 F2 gene targeted mutation analysis [facility] (Bld/Tiss) Comment . Comment on above: Result: c.*97G>A - N ot DetectedThis result is not associated with an increased risk for venousthromboembolism. See Additional Clinical Information andComments.Additional Clinical Information:Venous thromboembolism is a multifactorial disease influenced bygenetic, environmental, and circumstantial risk factors. The c.*97G>Avariant in the F2 gene is a genetic risk factor for venousthromboembolism. Heterozygous carriers have a 2- to 4-fold increasedrisk for venous thromboembolism. Homozygotes for the c.*97G>A variantare rare. The annual risk of VTE in homozygotes has been reported devin 1.1%/year. Individuals who carry both a c.*97G>A variant in theF2 gene and a c.1601G>A (p. [id number]) variant in the F5 gene(commonly referred to as Factor V Leiden) have an approximately 20-fold increased risk for venous thromboembolism. Risks are likely devin even higher in more complex genotype combinations involving theF2 c.*97G>A variant and Factor V Leiden (PMID: [id number]). Additionalrisk factors include but are not limited to: deficiency of protein C,protein S, or antithrombin III, age, male sex, personal or familyhistory of deep vein thromboembolism, smoking, surgery, prolongedimmobilization, malignant neoplasm, tamoxifen treatment, raloxifenetreatment, oral contraceptive use, hormone replacement therapy, andpregnancy. Management of thrombotic risk and thrombotic events shouldfollow established guidelines and fit the clinical circumstance. Thisresult cannot predict the occurrence or recurrence of a thromboticevent.Comments:Genetic counseling is recommended to discuss the potential clinicalimplications of positive results, as well as recommendations fortesting family members.Genetic Coordinators are available for health care providers to discussresults at [phone]).Test Details:Variant analyzed: c.*97G>A, previously referred to as [id number]/Limitations:DNA analysis of the F2 gene (NM_000506.5) was performed by PCRamplification followed by restriction enzyme analysis. The diagnosticsensitivity is >99%. Results must be combined with clinicalinformation for the most accurate interpretation. Molecular-basedtesting is highly accurate, but as in any laboratory test, diagnosticerrors may occur. False positive or false negative results may occurfor reasons that include genetic variants, blood transfusions, bonemarrow transplantation, somatic or tissue-specific mosaicism,mislabeled samples, or erroneous representation of familyrelationships.This test was developed and its performance characteristics determinedby [employer]. It has not been cleared or approved by the Food and DrugAdministration.References:Radha Helton, Gloria PENN, Tushar R, Jean WW, Alejandro JH; ACMG ProfessionalPractice and Guidelines Committee. Addendum: [place] [employer] consensus statement on factor V Leiden mutationtesting. Lindsey Med. 2020Oct 05. doi: 10.1038/[id number]-x.PMID: 62708329.Mitch GUERRERO. Prothrombin Thrombophilia. 2005Feb 24[Updated 2020Sep 06]. In: Riaz MP, Robb HH, Todd RA, et al.,editors. Elizabeth(R) [Internet]. [place] ([place]): [facility]; 3606-8168. Available from:https://www.ncbi.nlm.nih.gov/books/KCI3964/Darek S, Gloria PENN, Daryl X, Vishnu B, Lia EB, Kell P, Michele CS;[facility] Laboratory Arc Welder Committee. Venous thromboembolismlaboratory testing (factor V Leiden and factor II c.*97G>A),2018 update: a technical standard of the [place] [employer] MedicalGenetics and Genomics (ACMG). Lindsey Med. 2017;20(12):2481-1347.doi: 10.1038/[id number]-w. Epub 2017May 07. PMID: 93729373. Jesenia 03-13-2025 CNOV Office Visit (FAMPWS ) -- WANDA REYNA ([id number]) 1980 F Date Time Provider Department 03/13/25 2:40 PM HILTON DOTYPOSKAR During your visit today, we recorded the following information about you: Temperature Pulse Respiration Blood pressure 97.8 degrees 60/minute 12/minute 120/80 Weight Last Period 87.5 kg 03/09/25 Hilton Doty, DO 03/14/2025 12:48 PM Signed CC: Wanda Reyna is a 45 year old female who presents to the [...] Is taking plaquenil as prescribed without SE At OFFICE VISIT on 11/16/[address] chest at [facility] for her dyspnea symptoms- this testing was normal appearing on review She also had ECHOCARDIOGRAM at [facility] for her dyspnea symptoms- this testing [...] to medication. Would like to continue use At recent follow up 01/14/2025 Mood, has had some stressors but feels she is overall managing ok with support of her . Varicose veins, leg pain, left >right. Had a recent procedure IVC Venogram of her left leg veins and has a 47% compression of the left common iliac vein with otherwise vessels with no evidence of additional compression or occlusion. Hasn't had any procedure yet but has significant pain in the left leg which is affecting her walking and gait. Radiating to left knee area and left hip. Procedure was 3-4 days ago. She is struggling to fall asleep at night due to the leg discomfort Obesity, weight at 189 lbs. Knows needs to continue to work on weight loss as well. Inflammatory polyarthropathy, had recent dilated eye exam which was normal/negative. Is taking plaquenil as prescribed without SE Currently B/l leg pain, left >right lower leg, Had a recent procedure IVC Venogram of her left leg veins and has a 47% compression of the left common iliac vein with otherwise vessels with no evidence of additional compression or occlusion- performed by Dr. Barone at [facility]. Hasn't had any procedure yet to fix this concern but has significant pain in the left leg which is affecting her walking and gait. Radiating to left knee area and left hip. Procedure was 3-4 days ago. She is struggling to fall asleep at night due to the leg discomfort She is trying to wear her compression stockings daily at 20-30 mmgHg She has been recommended to have vascular lab tests to make sure no clotting risk so specialist can consider surgical intervention for her. The leg pain is affecting her quality of life. Using Tramadol as needed when her leg pain is severe. Needing rx refilled. Has good support from her and family Mood, still struggling at times to keep her mood stable due to stressors with her current health issues. ' Obesity, weight at 189 lbs. Knows needs to continue to work on weight loss as well. Taking Qsymia and weight is stable at 193 lbs PAST MEDICAL HISTORY Diagnosis Date MAXIM positive 09/2014 Inflammatory polyarthropathy (HCC) Kidney stone with stent Raynaud's disease PAST SURGICAL HISTORY Procedure Laterality Date DANDC (MISSED AB 1ST TRIMESTER) 2001 ESWL Right 05/08/2017 EXTRACTION, ERUPTED TOOTH OR EXPOSED ROOT (ELEVATION AND/OR FORCEPS R (more content not included)... [facility] C-REACTIVE PROT < 3.00 Normal 0.0-3.0 Comment on above: Performed By: #### L 100.0100, L501.6710, L506.1001, L500.4050, L506.0400, L501.9520, L503.6030, L503.0106 #### Laboratory [address] [place], [address] Dilute Kye's viper venom timeOrdered By: Hilton Doty on 03-13-2025 dRVVT Coag (PPP) [Time] 38.0 s 0.0-47.0 Erythrocyte Sed Rateon 03-13 SED RATE 6 mm/hr Normal 0-30 Comment on above: Performed By: #### L 100.0100, L501.6710, L506.1001, L500.4050, L506.0400, L501.9520, L503.6030, L503.0106 #### Laboratory [address] [place], [place], [id number] Erythrocyte sedimentation ra teOrdered By: Hilton Doty on 03-13-2025 ESR (Bld) [Velocity] 6 mm/h 0-30 [facility] Functional protein C measure mentOrdered By: Hilton Doty on 03-13-2025 Protein C actual/normal Chromogenic method (PPP) [Rel catalytic activity/Vol] 96 % 73-180 Interpretation of screening 2-component lupus anticoagulant panel in platelet poor plOrdered By: Hilton Doty on 03-13-2025 Lupus anticoagulant two screening tests W Reflex Coag (PPP) [Interp] Comment: . Comment on above: No lupus anticoagula nt was detected. No Panel InformationOrdered By: Hilton Doty on 03-13-2025 Factor II DNA Analysis Comment Comment . Comment on above: Technical Component performed at [facility] RTPProfessional Component performed by:Tremaine Carpenter, PhD, [id number], [facility], [address] [address]Wgsheqzjv at: - [facility] [address] [place], [place] [id number] Director: Gabe Fry PhD, Phone: [phone] at: - [facility] [id number] Director: Man Dykes MD, Phone: [phone] at: - [facility] [id number] [facility], [facility], [place] [id number] Director: Jhonny Robles [facility], Phone: [phone] Plasminogen activity plasOrd ered By: Hilton Doty on 03-13-2025 Plasminogen actual/normal Chromogenic method (PPP) [Rel catalytic activity/Vol] 115 % 70-150 Platelet poor plasma antithr ombin actual/normal ratio by chromogenic method (relativeOrdered By: Hilton Doty on 03-13-2025 Antithrombin actual/normal Chromogenic method (PPP) [Rel catalytic activity/Vol] 114 % 75-135 Comment on above: Direct Xa inhibitor anticoagulants such as rivaroxaban,apixaban and edoxaban will lead to spuriously elevatedantithrombin activity levels possibly masking a deficiency. Protein S, freeOrdered By: Rachel Doty on 03-13-2025 Protein S Free Ag IA Qn (PPP) 94 % 61-136 Serum beta 2 glycoprotein 1 IgA antibody detectionOrdered By: Hilton Doty on 03-13-2025 Beta 2 glycoprotein 1 IgA Ql (S) Not Reportable Serum beta 2 glycoprotein 1 IgG antibody detectionOrdered By: Hilton Doty on 03-13-2025 Beta 2 glycoprotein 1 IgG Ql (S) <9 0-20 [facility] Comment on above: Result Units: GPI Ig G unitsThe reference interval reflects a 3SD or 99th percentileinterval, which is thought to represent a potentiallyclinically significant result in accordance with theInternational Consensus Statement on the classificationcriteria for definitive antiphospholipid syndrome (APS). JThromb Haem 2006;4:295-306. Serum beta 2 glycoprotein 1 IgM antibody detectionOrdered By: Hilton Doty on 03-13-2025 Beta 2 glycoprotein 1 IgM Ql (S) <9 0-32 Comment on above: Result Units: GPI Ig M unitsThe reference interval reflects a 3SD or 99th percentileinterval, which is thought to represent a potentiallyclinically significant result in accordance with theInternational Consensus Statement on the classificationcriteria for definitive antiphospholipid syndrome (APS). JThromb Haem 2006;4:295-306. Serum cardiolipin IgG antibo dy assay by immunoassay (units/volume)Ordered By: Hilton Doty on 03-13-2025 Cardiolipin IgG IA Qn (S) < 9 GPL U/mL 0-14 Comment on above: Negative: <15 Indete rminate: 15 - 20 Low-Med Positive: >20 - 80 High Positive: >80 Serum or plasma C reactive p rotein measurement (mass/volume)Ordered By: Hilton Doty on 03-13-2025 CRP [Mass/Vol] mg/L 0.0-3.0 Serum or plasma homocysteine measurement (mass/volume)Ordered By: Hilton Doty on 03-13-2025 Homocysteine [Mass/Vol] 6.9 umol/L 0.0-14.5 CNPNon 02-06-2025 [facility] WANDA RE[facility] ([id number]) 1980 F Date Time Provider Department 02/06/25 [facility] During your visit today, we recorded the following information about you: Ngoc Ervin RN 02/06/2025 11:04 AM Signed Patient asking for provider to advise on her recent EMG results, when able. Pt had procedure completed at [facility]. See scanned documents 02/01/25. ELSIE Clemens, Lisa Castro APRN.[employer]MER MOLD 02/06/2025 12:26 PM Signed EMG was normal. No evidence of peripheral neuropathy or lumbosacral radiculopathy. Thank you, Lisa Doll APRN.Huma Rodgers LPN 02/06/2025 1:58 PM Signed Spoke with pt gave information provided. Pt voices understanding. Allergies As of Date: 02/06/2025 Noted Allergy Reaction PENICILLINS 08/30/2013 16 - Unknown Date Reviewed: 01/14/2025 Reviewed by: Char Valencia LPN - Fully Assessed Reason for Visit: Results [95] Prescriptions as of 02/06/2025 - FLUoxetine (PROZAC) 10 mg capsule Take 1 capsule by mouth once daily. - hydrOXYchloroQUINE (PLAQUENIL) 200 mg tablet Take 1 tablet by mouth once daily. - phentermine-topiramate ER (QSYMIA) 11.25-69 mg 24 Hr Capsule Take 1 capsule by mouth once daily for 90 days. BMI 31.32 - hydrocortisone 2.5 % cream Apply 1 application to affected area two times a day as needed (hemorrhoids). Location: hemorrhoids - spironolactone (ALDACTONE) 50 mg tablet Take [...] once daily. Problem List As Of Date 02/06/2025 Noted Resolved Varicose veins of both legs [...] arthritis [M19.90] 04/25/2024 Perimenopausal symptoms [N95.1] 08/02/2024 Left leg pain [M79.605] 01/17/2025 Leg heaviness [R29.898] 01/17/2025 Encounter Status:Closed by HUMA DA SILVA on 02/06/25 Normal [facility] MR/BMS.BVSon 02-06-2025 MR/BMS.BVS [facility] Vascular Surgery [address] [place] [address] OFFICE VISIT Date of Service: 02/06/25 MR#: [id number] Acct: [id number] Name: WANDA REYNA Rep #: [id number] : 1980 Provider: Dr. Derek Barone MD Age/Sex: 45/F Location: BMS.BVS Status: Signed Intake Vital Signs 01/10/25 09:01 02/06/25 13:05 Height 5 ft 6 in Weight: 189 lb BP 121/80 H Blood Pressure Location Lt brachial Position Sitting Respiration 18 Pulse 71 Pulse Source Monitor Temp 98.4 F Temp Source Temporal Pulse Oximetry (%) 100 Oxygen Delivery Method room air Intake Visit Reasons: 1 M FU Chief Complaint: establish care Is patient in pain?: Yes Allergies Penicillins (PCN) Allergy (Severe, Verified 02/06/25 13:05) Anaphylaxis Medications ???Medication ???Instructions ???Recorded ???Confirmed ???Type lorazepam 0.5 mg tablet 0.5 mg PO DAILY PRN PRN Anxiety 02/06/25 History cholecalciferol (vitamin D3) 125 125 mcg PO DAILY 09/24/23 02/06/25 History mcg (5,000 unit) capsule phentermine 11.25 mg-topiramate ER 1 cap PO DAILY 09/24/23 02/06/25 History 69 mg capsule,ext.qkvajss90ck mphas (Qsymia) hydroxychloroquine 200 mg tablet 300 mg PO DAILY 09/25/23 02/06/25 History (Plaquenil) trazodone 50 mg tablet 50 mg PO QHS 09/25/23 02/06/25 His tory naproxen 500 mg tablet (Naprosyn) 500 mg PO BID PRN pain #20 tabs 0 02/05/24 02/06/25 Rx ondansetron 4 mg disintegrating 4 mg PO Q8H PRN PRN Nausea #10 tab s 02/05/24 02/06/25 Rx tablet spironolactone 50 mg tablet 50 mg PO QDAY 11/02/24 02/06/25 Hi story bupropion HCl 75 mg tablet 150 mg PO BID 12/12/24 02/06/25 Hi story fluoxetine 10 mg capsule (Prozac) 10 mg PO QDAY 12/12/24 02/06/25 H istory spironolactone 25 mg tablet 25 mg PO QDAY 12/12/24 02/06/25 Hi story tramadol 50 mg tablet 50 mg PO Q8 PRN pain 02/06/2502/24 History Is last menstrual period known: Yes Post menopausal: No Patient : No Have you fallen in the past year?: No PFSH Medical History Status post hysteroscopy [...] History current occupational status: employed 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 She had a venogram that revealed mild left iliac compression that did not reach threshold typically considered sufficient for stent. She has been wearing her knee high compression consistently. She has history of previous bilateral thigh GSV ablations. Venous reflux showed left SSV reflux, right SFJ, accessory saphenous, small saphenous, and perforators. She has minimal if any symptoms on the right. She does have more noticeable bruising in both legs. ROS General General: Yes weakness; No weight change, appetite, fatigue, colon cancer or breast cancer HEENT HEENT: No difficulty swallowing, eye injury, [...] No anemia and No blood clots Neuro Neurologi (more content not included)... Normal NCS and/or EMG Patienton NCS and/or EMG Patient [facility] Pulmonary Services/Neurology [address] [place] [address] MR#: [id number] Acct: [id number] Name: WANDA REYNA Rep #: [id number] : 1980 44 From: Lupillo Quintero MD Referring Dr: Hilton Doty DO Status: REG CL I Location: [facility] Date: 02/01/25 Sex: F C NCS and/or EMG Patient Report Ordering Doctor: Hilton Doty DATE OF SERVICE: 02/01/25 Wanda presents with complaints of heaviness and soreness in the left lower leg. Electrodiagnostic findings: Left peroneal motor nerve demonstrates normal distal latency, amplitude and conduction velocity. Left tibial motor response within normal limits. Normal tibial and peroneal F???waves on the left side. Borderline prolonged H???reflex bilaterally, Normal left sural and left superficial peroneal response. Needle EMG testing was performed in the left lower limb. All muscles tested showed no evidence of denervation with normal motor unit action potentials Electrodiagnostic impression: This is a normal electrodiagnostic study of the left lower limb. There is no electrodiagnostic evidence for peripheral neuropathy or lumbosacral radiculopathy [facility] Codes Neurology Neurology Interp Codes: 52678-52 Musc test done w/n test comp (interp) and 49789-64 Nrv cndj tst 5-6 studies (interp) 02/01/25 1028 Date Lupillo Quintero MD CC: Dr. Lupillo Quintero MD; Dr. Hilton Doty, Date Dictated: 02/01/25 1026 Date Transcribed: 02/01/25 1026 Burner Shaft: JAI Yan [facility] 01-14-2025 [facility] Office Visit (FAMWS ) -- AXELWANDA Helton ([id number]) 1980 F Date Time Provider Department 01/14/25 10:40 AM [facility] During your visit today, we recorded the following information about you: Temperature Pulse Respiration Blood pressure 97 degrees 80/minute 16/minute 120/60 Weight 85.7 kg Hilton Doty, 01/17/2025 7:46 AM Signed CC: Wandalela Reyna is a 44 year old female who [...] Is taking plaquenil as prescribed without SE At last OFFICE VISIT on 11/16/[address] chest at [facility] for her dyspnea symptoms- this testing was normal appearing on review She also had ECHOCARDIOGRAM at [facility] for her dyspnea symptoms- this testing [...] to medication. Would like to continue use Currently Mood, has had some stressors but feels she is overall managing ok with support of her . Varicose veins, leg pain, left >right. Had a recent procedure IVC Venogram of her left leg veins and has a 47% compression of the left common iliac vein with otherwise vessels with no evidence of additional compression or occlusion. Hasn't had any procedure yet but has significant pain in the left leg which is affecting her walking and gait. Radiating to left knee area and left hip. Procedure was 3-4 days ago. She is struggling to fall asleep at night due to the leg discomfort Obesity, weight at 189 lbs. Knows needs to continue to work on weight loss as well. Inflammatory polyarthropathy, had recent dilated eye exam [...] HX 2006 Current Outpatient Medications Medication Sig FLUoxetine (PROZAC) 10 mg capsule Take 1 capsule by mouth once daily. traMADol (ULTRAM) 50 mg tablet Take 1 tablet by mouth every 8 hours as needed for pain for up to 7 days. hydrOXYchloroQUINE (PLAQUENIL) 200 mg tablet Take 1 tablet by mouth once daily. phentermine-topiramate ER (QSYMIA) 11.25-69 mg 24 Hr Capsule Take 1 capsule by mouth once daily for 90 days. BMI 31.32 hydrocortisone 2.5 % cream Apply 1 application to affected area two times a day as needed (hemorrhoids). Location: hemorrhoids spironolactone (ALDACTONE) 50 mg tablet Take 1 tablet by mouth once daily. albuterol HFA (PROVENTIL HFA, VENTOLIN HFA) 90 mcg/actuation inhaler Inhale 2 Puffs as instructed every 4 hours as needed for wheezing/shortness of breath. chlorthalidone (HYGROTON) 25 mg tablet Take 1 tablet by mouth once daily. As needed for edema (Patient not taking: Reported on 11/16/2024) buPROPion (WELLBUTRIN) 75 mg tablet Take 2 tablets in the AM and 2 tablet in the afternoon traZODone (DESYREL) 50 mg tablet Take 1-2 tablets by mouth daily at bedtime. naproxen (NAPROSYN) 500 mg tablet Take 1 tablet by mout (more content not included)... Normal [facility] HIP, UNI W/ Pelvis 2-3 Views on 01-14-2025 HIP, UNI W/ Pelvis 2-3 Views [facility] Imaging Services [address] [place] [address] HIP, UNI W/ Pelvis 2-3 Views MR#: [id number] Acct: [id number] Name: WANDA REYNA Rep #: [id number] : 1980 F 44 From: Kendrick Cowan MD PCP: Dr. Hilton Doty DO Status: REG CLI Study: HIP, UNI W/ Pelvis 2-3 Views Date of Exam: Exam# [id number] Ordering Dr: Hilton Doty DO PROCEDURE: HIP, UNI W/ PELVIS 2-3 VIEWS 01/14/2025 REASON FOR EXAM: PAIN Pelvic pain. Left hip pain. Left leg pain and heaviness. TECHNIQUE: HIP, UNI W/ PELVIS 2-3 VIEWS COMPARISON: None FINDINGS: Bones: Pelvis and left hip appear intact. No fracture or dislocation. Joints: Left hip is in articulating alignment. No significant arthritis. Soft tissues: No radiopaque foreign bodies RAD/HIP, UNI W/ Pelvis 2-3 Views IMPRESSION: Negative examination Reading Location: [facility] CC: Dr. Hilton Doty DO Burner Shaft: Signed Normal Knee 1 or 2 Viewson 01-15-20 Knee 1 or 2 Views [facility] Imaging Services [address] [place] [address] Knee 1 or 2 Views MR#: [id number] Acct: [id number] Name: WANDA REYNA Rep #: [id number] : 1980 F 44 From: Kendrick Cowan MD PCP: Dr. Hilton Doty DO Status: REG CLI Study: Knee 1 or 2 Views Date of Exam: 01/14/25 Exam# [id number] Ordering Dr: Hilton Doty DO PROCEDURE: KNEE 1 OR 2 VIEWS 01/14/2025 REASON FOR EXAM: PAIN Right knee pain. TECHNIQUE: KNEE 1 OR 2 VIEWS COMPARISON: None FINDINGS: Bones: Right knee appears intact. No fracture or dislocation seen. Joints: Small osteophytes at the margins of the lateral compartment. Small to moderate size osteophytes at the margins of the medial compartment. Soft tissues: No radiopaque foreign bodies RAD/Knee 1 or 2 Views IMPRESSION: 1. 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 2. No acute findings Reading Location: [facility] CC: Dr. Hilton Doty DO Burner Shaft: Signed Normal Knee 4 or More Viewson 01-14 Knee 4 or More Views [facility] Imaging Services [address] [place], [place] [id number] Knee 4 or More Views MR#: [id number] Acct: [id number] Name: WANDA REYNA Rep #: [id number] : 1980 F 44 From: Kendrick Cowan MD PCP: Dr. Hilton Doty DO Status: REG CLI Study: Knee 4 or More Views Date of Exam: 01/14/25 Exam# [id number] Ordering Dr: Hilton Doty DO PROCEDURE: KNEE 4 OR MORE VIEWS 01/14/2025 REASON FOR EXAM: PAIN Left knee pain TECHNIQUE: KNEE 4 OR MORE VIEWS COMPARISON: None FINDINGS: Bones: Left knee appears intact. No acute fracture or dislocation. Mild osteophyte formation of the margins of the lateral compartment and moderate osteophyte formation of the margins of the medial compartment. Joints: No joint effusion seen. Soft tissues: No radiopaque foreign bodies Alignment:: Alignment appears anatomic RAD/Knee 4 or More Views IMPRESSION: 1. Mild osteoarthritis, greatest of the medial compartment. 2. No acute findings. Reading Location: [facility] CC: Dr. Hilton Doty DO Burner Shaft: Signed Normal Lumbar Spine 2 or 3 Viewson 01-14-2025 Lumbar Spine 2 or 3 Views [facility] Imaging Services [address] [place], [place] [address] Lumbar Spine 2 or 3 Views MR#: [id number] Acct: [id number] Name: WANDA REYNA Rep #: [id number] : 1980 F 44 From: Kendrick Cowan MD PCP: Dr. Hilton Doty DO Status: REG CLI Study: Lumbar Spine 2 or 3 Views Date of Exam: Exam# [id number] Ordering Dr: Hilton Doty DO PROCEDURE: LUMBAR SPINE 2 OR 3 VIEWS 01/14/2025 REASON FOR EXAM: PAIN Lumbar pain. Left leg pain. TECHNIQUE: LUMBAR SPINE 2 OR 3 VIEWS COMPARISON: None FINDINGS: Vertebrae: Lumbar vertebral body height appears normal. No evidence of fracture. Discs: Intervertebral disc height appears normal Alignment: No significant subluxation or spondylolisthesis. No significant scoliosis Other: Metallic clips right upper quadrant abdomen, likely cholecystectomy RAD/Lumbar Spine 2 or 3 Views IMPRESSION: 1. No significant lumbar abnormality seen. Reading Location: [facility] CC: Dr. Hilton Doty, Burner Shaft: Signed Normal MR/BMS.BVSon 01-13-2025 MR/BMS.BVS [facility] Vascular Surgery [address] [place] [address] OFFICE VISIT Date of Service: 01/13/25 MR#: [id number] Acct: [id number] Name: WANDA REYNA Rep #: [id number] : 1980 Provider: JAYE Montero Age/Sex: 44/F Location: [facility].BVS Status: Signed Intake Vital Signs 01/10/25 09:01 01/13/25 08:07 Height 5 ft 6 in Weight: 190 lb 192 lb BP 122/71 H Blood Pressure Location Lt brachial Position Sitting Respiration 16 Pulse 65 Pulse Source Monitor Temp 98.2 F Temp Source Temporal Pulse Oximetry (%) 100 Oxygen Delivery Method room air Intake Visit Reasons: s/p IVC venogram DOS: 01/10/25 Is patient in pain?: No Allergies Penicillins (PCN) Allergy (Severe, Verified 01/13/25 08:08) Anaphylaxis Medications ???Medication ???Instructions ???Recorded ???Confirmed ???Type lorazepam 0.5 mg tablet 0.5 mg PO DAILY PRN PRN Anxiety 01/13/25 History cholecalciferol (vitamin D3) 125 125 mcg PO DAILY 09/24/23 01/13/25 History mcg (5,000 unit) capsule phentermine 11.25 mg-topiramate ER 1 cap PO DAILY 09/24/23 01/13/25 History 69 mg capsule,ext.[id number] mphas (Qsymia) hydroxychloroquine 200 mg tablet 300 mg PO DAILY 09/25/23 01/13/25 History (Plaquenil) trazodone 50 mg tablet 50 mg PO QHS 09/25/23 01/13/25 His tory naproxen 500 mg tablet (Naprosyn) 500 mg PO BID PRN pain #20 tabs 0 02/05/24 01/13/25 Rx ondansetron 4 mg disintegrating 4 mg PO Q8H PRN PRN Nausea #10 tab s 02/05/24 01/13/25 Rx tablet spironolactone 50 mg tablet 50 mg PO QDAY 11/02/24 01/13/25 Hi story bupropion HCl 75 mg tablet 150 mg PO BID 12/12/24 01/13/25 Hi story fluoxetine 10 mg capsule (Prozac) 10 mg PO QDAY 12/12/24 01/13/25 H istory spironolactone 25 mg tablet 25 mg PO QDAY 12/12/24 01/13/25 Hi story Is last menstrual period known: No Post menopausal: No Patient : No Have you fallen in the past year?: No PFSH Medical History Status post hysteroscopy [...] History current occupational status: employed 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 She had called into the offi ce yesterday with these concerns. She reports the nausea has improved with Zofran and the headache somewhat abated. 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 She has had increased soreness in the L groin compared to the R groin. She has not had any further bleeding. She has noticed more clear yellow/pink tinged fluid from the area. ROS General General: Yes appetite and weakness; No weight change, fatigue, colon cancer or breast cancer HEENT HEENT: No difficulty swallowing, eye injury, eye surgery, swollen glands or hoarseness Endo Endocrine: Yes cold intolerance; No thyroid disease, diabetes mellitus, thyroid cancer, Hair loss or heat intolerance Skin Skin: No rash or changing [...] No wheezing Gastro Gastrointestinal: No abdominal pain, Yes nausea or vomiting, No diarrhea, No constipation, No blood in stool, No acid reflux, No hemorrhoids, No ulcers, No gallbladder problem and No black,tarry stools Vinicius Hematologic: No blood thinners, No blood disorders, No bleeding, No anemia and No blood clots Neuro Neurologic: No system reviewed and no additional complaints, except as documented, No as per HPI (more content not included)... Normal Anion gap in Serum or Plasma Ordered By: Laura Rai on 01-12-2025 Anion gap [Moles/Vol] 10 mmol/L 12-15 [facility] BUN/creatinine ratioOrdered By: Laura Rai on 01-12-2025 Urea nitrogen/Creatinine [Mass ratio] 13.9 mg/mg 05-22 Basic Metabolic Profile (BMP )on 01-12-2025 BUN/CRE 13.9 RATIO Normal 05-22 Comment on above: Performed By: #### L 100.0500, L500.2500 #### [id number] [place], [address] Calcium [Mass/Vol] 9.6 mg/dL Normal 7.6-11.0 [facility] Comment on above: Performed By: #### L 100.0500, L500.2500 #### [id number] [place], [address] Chloride [Moles/Vol] 104 mmol/L Normal 98-108 [facility] Comment on above: Performed By: #### L 100.0500, L500.2500 #### [id number] [place], [address] CO2 [Moles/Vol] 26.0 mmol/L Normal 21.0-32.0 Comment on above: Performed By: #### L 100.0500, L500.2500 #### [id number] [place], [address] Creatinine [Mass/Vol] 0.85 mg/dL Normal 0.70-1.20 [facility] Comment on above: Performed By: #### L 100.0500, L500.2500 #### [id number] [place], [address] GAP 10 Normal 5-15 Comment on above: Performed By: #### L 100.0500, L500.2500 #### [address] [place], [address] GFR/1.73 sq M.predicted among non-blacks MDRD (S/P/Bld) [Vol rate/Area] 87 mL/min/{1.73_m2} Normal >60 Comment on above: Result Comment: mL/m in/1.73m2 CKD-EPI Creatinine Equation (2020) Performed By: #### L 100.0500, L500.2500 #### [id number] [place], [address] Glucose [Mass/Vol] 87 mg/dL Normal 70-99 [facility] Comment on above: Performed By: #### L 100.0500, L500.2500 #### [id number] [place], [address] Potassium [Moles/Vol] 4.4 mmol/L Normal 3.3-5.1 [facility] Comment on above: Performed By: #### L 100.0500, L500.2500 #### [id number] [place], [address] Sodium [Moles/Vol] 140 mmol/L Normal 133-145 [facility] Comment on above: Performed By: #### L 100.0500, L500.2500 #### [id number] [place], [address] Urea nitrogen [Mass/Vol] 12 mg/dL Normal 4-19 Comment on above: Performed By: #### L 100.0500, L500.2500 #### [address] [place], [address] CBC-Complete Blood Cnt No Di ffon 01-12-2025 Erythrocyte distribution width (RBC) [Ratio] 13.3 % Normal 11.6-14.6 Comment on above: Performed By: #### L 100.0500, L500.2500 #### [id number] [place], [address] Hematocrit (Bld) [Volume fraction] 39.6 % Normal 37-47 Comment on above: Performed By: #### L 100.0500, L500.2500 #### [id number] [place], [address] Hemoglobin (Bld) [Mass/Vol] 13.2 g/dL Normal 12.0-15.0 Comment on above: Performed By: #### L 100.0500, L500.2500 #### [id number] [place], [address] MCH (RBC) [Entitic mass] 31.0 pg Normal 27.0-32.0 Comment on above: Performed By: #### L 100.0500, L500.2500 #### [id number] [place], [address] MCHC (RBC) [Mass/Vol] 33.3 g/dL Normal 32-36 [facility] Comment on above: Performed By: #### L 100.0500, L500.2500 #### [address] [place], [address] MCV (RBC) [Entitic vol] 93.0 fL Normal 81-99 Comment on above: Performed By: #### L 100.0500, L500.2500 #### [id number] [place], [address] Platelet mean volume (Bld) [Entitic vol] 10.4 fL Normal 6.2-12.0 Comment on above: Performed By: #### L 100.0500, L500.2500 #### [id number] [place], [address] Platelets (Bld) [#/Vol] 223 10*3/uL Normal 150-450 Comment on above: Performed By: #### L 100.0500, L500.2500 #### [address] [place], [address] RBC (Bld) [#/Vol] 4.26 10*6/uL Normal 4.2-5.4 [facility] Comment on above: Performed By: #### L 100.0500, L500.2500 #### [address] [place], [address] RDW SD 45.6 fl High 35.1-43.9 Comment on above: Performed By: #### L 100.0500, L500.2500 #### [address] [place], [address] WBC (Bld) [#/Vol] 5.6 10*3/uL Normal 4.4-11.0 [facility] Comment on above: Performed By: #### L 100.0500, L500.2500 #### [address] [place], [address] Carbon dioxide, total [Moles /volume] in Central venous bloodOrdered By: Laura Rai on 01-12-2025 CO2 [Moles/Vol] 26.0 mmol/L 21.0-32.0 Chloride assayOrdered By: Saul Rai on 01-12-2025 Chloride [Moles/Vol] 104 mmol/L 98-108 [facility] Erythrocyte distribution wid th ratioOrdered By: Laura Rai on 01-12-2025 Erythrocyte distribution width (RBC) [Ratio] 13.3 % 11.6-14.6 Erythrocyte distribution wid th standard deviationOrdered By: Laura Rai on 01-12-2025 Erythrocyte distribution width (RBC) [Ratio] 45.6 fl High 35.1-43.9 Glomerular filtration rate ( GFR) estimation/1.73 sq m using serum, plasma, or whole bOrdered By: Laura Rai on 01-12-2025 GFR/1.73 sq M.predicted among non-blacks MDRD (S/P/Bld) [Vol rate/Area] 87 mL/min/{1.73_m2} >60 Comment on above: mL/min/1.73m2 CKD-EP I Creatinine Equation (2020) Hematocrit Auto (Bld) [Volum e fraction]Ordered By: Laura Rai on 01-12-2025 Hematocrit (Bld) [Volume fraction] 39.6 % 37-47 Hemoglobin measurementOrdere d By: Laura Rai on 01-12-2025 Hemoglobin (Bld) [Mass/Vol] 13.2 g/dL 12.0-15.0 MCV (mean corpuscular volume ) determinationOrdered By: Laura Rai on 01-12-2025 MCV (RBC) [Entitic vol] 93.0 fL 81-99 Mean corpuscular hemoglobin (MCH) determinationOrdered By: Laura Rai on 01-12-2025 MCH (RBC) [Entitic mass] 31.0 pg 27.0-32.0 Mean corpuscular hemoglobin concentration (MCHC) determinationOrdered By: Laura Rai on 01-12-2025 MCHC (RBC) [Mass/Vol] 33.3 g/dL 32-36 [facility] Mean platelet volume determi nationOrdered By: Laura Rai on 01-12-2025 Platelet mean volume (Bld) [Entitic vol] 10.4 fL 6.2-12.0 Platelet countOrdered By: Saul Rai on 01-12-2025 Platelets (Bld) [#/Vol] 223 10*3/uL 150-450 Potassium measurement (mass/ volume)Ordered By: Laura Rai on 01-12-2025 Potassium (Unsp spec) [Mass/Vol] 4.4 mmol/L 3.3-5.1 RBC Auto (Bld) [#/Vol]Ordere d By: Laura Rai on 01-12-2025 RBC (Bld) [#/Vol] 4.26 10*6/uL 4.2-5.4 [facility] Serum creatinine measurement (mass/volume)Ordered By: Laura Rai on 01-12-2025 Creatinine [Mass/Vol] 0.85 mg/dL 0.70-1.20 [facility] Serum glucose measurement (m ass/volume)Ordered By: Laura Rai on 01-12-2025 Glucose [Mass/Vol] 87 mg/dL 70-99 [facility] Serum or plasma calcium willie urement (mass/volume)Ordered By: Laura Rai on 01-12-2025 Calcium [Mass/Vol] 9.6 mg/dL 7.6-11.0 [facility] Serum or plasma urea nitroge n measurement (mass/volume)Ordered By: Larua Rai on 01-12-2025 Urea nitrogen [Mass/Vol] 12 mg/dL 4- Sodium levelOrdered By: Jose Ramon malia Cecelia on 01-12-2025 Sodium [Moles/Vol] 140 mmol/L 133-145 [facility] White blood cell (WBC) count Ordered By: Laura Rai on 01-12-2025 WBC (Bld) [#/Vol] 5.6 10*3/uL 4.4-11.0 [facility] [facility] Anion gap in Serum or Plasma Ordered By: Derek Barone on 01-10-2025 Anion gap [Moles/Vol] 9 mmol/L 12-15 [facility] BUN/creatinine ratioOrdered By: Derek Barone on 01-10-2025 Urea nitrogen/Creatinine [Mass ratio] 10.2 mg/mg 05-22 Basic Metabolic Profile (BMP )on 01-10-2025 BUN/CRE 10.2 RATIO Normal 05-22 Comment on above: Performed By: #### L 100.0100, L501.6710, L506.1001, L500.4050, L506.0400, L501.9520, L503.6030, L503.0106 #### Laboratory [address] [place], [address] Calcium [Mass/Vol] 9.3 mg/dL Normal 7.6-11.0 [facility] Comment on above: Performed By: #### L 100.0100, L501.6710, L506.1001, L500.4050, L506.0400, L501.9520, L503.6030, L503.0106 #### Laboratory [address] [place], [address] Chloride [Moles/Vol] 105 mmol/L Normal 98-108 [facility] Comment on above: Performed By: #### L 100.0100, L501.6710, L506.1001, L500.4050, L506.0400, L501.9520, L503.6030, L503.0106 #### Laboratory [address] [place], [address] CO2 [Moles/Vol] 25.1 mmol/L Normal 21.0-32.0 Comment on above: Performed By: #### L 100.0100, L501.6710, L506.1001, L500.4050, L506.0400, L501.9520, L503.6030, L503.0106 #### Laboratory [address] [place], [address] Creatinine [Mass/Vol] 0.90 mg/dL Normal 0.70-1.20 [facility] Comment on above: Performed By: #### L 100.0100, L501.6710, L506.1001, L500.4050, L506.0400, L501.9520, L503.6030, L503.0106 #### Laboratory [address] [place], [address] ECRCL 88.22 ml/min Normal 50-250 Comment on above: Performed By: #### L 100.0100, L501.6710, L506.1001, L500.4050, L506.0400, L501.9520, L503.6030, L503.0106 #### Laboratory [address] [place], [address] GAP 9 Normal 5-15 Comment on above: Performed By: #### L 100.0100, L501.6710, L506.1001, L500.4050, L506.0400, L501.9520, L503.6030, L503.0106 #### Laboratory [address] [place], [address] GFR/1.73 sq M.predicted among non-blacks MDRD (S/P/Bld) [Vol rate/Area] 81 mL/min/{1.73_m2} Normal >60 Comment on above: Result Comment: mL/m in/1.73m2 CKD-EPI Creatinine Equation (2020) Performed By: #### L 100.0100, L501.6710, L506.1001, L500.4050, L506.0400, L501.9520, L503.6030, L503.0106 #### Laboratory [address] [place], [address] Glucose [Mass/Vol] 103 mg/dL High 70-99 [facility] Comment on above: Performed By: #### L 100.0100, L501.6710, L506.1001, L500.4050, L506.0400, L501.9520, L503.6030, L503.0106 #### Laboratory [address] [place], [address] Potassium [Moles/Vol] 4.2 mmol/L Normal 3.3-5.1 [facility] Comment on above: Performed By: #### L 100.0100, L501.6710, L506.1001, L500.4050, L506.0400, L501.9520, L503.6030, L503.0106 #### Laboratory [address] [place], [address] Sodium [Moles/Vol] 139 mmol/L Normal 133-145 [facility] Comment on above: Performed By: #### L 100.0100, L501.6710, L506.1001, L500.4050, L506.0400, L501.9520, L503.6030, L503.0106 #### Laboratory [address] [place], [address] Urea nitrogen [Mass/Vol] 9 mg/dL Normal 4-19 Comment on above: Performed By: #### L 100.0100, L501.6710, L506.1001, L500.4050, L506.0400, L501.9520, L503.6030, L503.0106 #### Laboratory [address] [place], [address] Carbon dioxide, total [Moles /volume] in Central venous bloodOrdered By: Derek Barone on 01-10-2025 CO2 [Moles/Vol] 25.1 mmol/L 21.0-32.0 Chloride assayOrdered By: Thien Barone on 01-10-2025 Chloride [Moles/Vol] 105 mmol/L 98-108 [facility] Glomerular filtration rate ( GFR) estimation/1.73 sq m using serum, plasma, or whole bOrdered By: Derek Barone on 01-10-2025 GFR/1.73 sq M.predicted among non-blacks MDRD (S/P/Bld) [Vol rate/Area] 81 mL/min/{1.73_m2} >60 Comment on above: mL/min/1.73m2 CKD-EP I Creatinine Equation (2020) Operative Reporton Operative Report [facility] Medical Records Department [address] [place] [address] Operative Report 01/10/25 1210 MR#: [id number] Acct: [id number] Name: WANDA REYNA Rep #: [id number] : 1980 44 From: Derek Barone MD PCP: Dr. Hilton Doty, DO [place] [place] [facility] Report (Standard) Operative Information Date of Procedure: 01/10/25 Pre-Operative Diagnosis: Venous insufficiency and varicose veins with pain bilateral lower extremities Post-Operative Diagnosis: Same Surgery/Procedure Performed: IVC venogram Intravascular ultrasound inferior vena cava, bilateral common iliac veins, bilateral external iliac veins dance entertainer: No Type of Anesthesia: Local and Sedation,Conscious Procedure Start Time: 10:00 Procedure Stop Time: 10:30 Select all DRAINS/GRAFTS/IMPLANTS that apply: None Estimated Blood Loss: 3 [...] site the patient was taken to the Traffic Or System Dispatcher where she was positioned prepped and draped [...] collaterals visualized. Through the micropuncture sheath a BioGreen [place] wire was advanced the micropuncture sheath exchanged for a short 8 Cypriot sheath. Next skin overlying the right common [...] micropuncture sheath exchanged for a short 8 Cypriot sheath. Next an intravascular ultrasound probe was [...] Findings: See above Complications Complications: No 01/10/25 9685 Cosigner Signature (if applicable): CC: JAYE Montero; Dr. Derek Barone MD; Dr. Hilton Doty DO Signed Normal Potassium measurement (mass/ volume)Ordered By: Derek Barone on 01-10-2025 Potassium (Unsp spec) [Mass/Vol] 4.2 mmol/L 3.3-5.1 Serum creatinine measurement (mass/volume)Ordered By: Derek Barone on 01-10-2025 Creatinine [Mass/Vol] 0.90 mg/dL 0.70-1.20 [facility] Serum glucose measurement (m ass/volume)Ordered By: Derek Barone on 01-10-2025 Glucose [Mass/Vol] 103 mg/dL High 70-99 [facility] Serum human chorionic gonado tropin detection for pregnancyOrdered By: Derek Barone on 01-10-2025 HCG ( test) Ql < 1 mIU/mL <9 Comment on above: Gestational Age0.2-1 Week: 5-50 mIU/mL1-2 Weeks: 50-500 mIU/mL2-3 Weeks: 100-5000 mIU/mL3-4 Weeks: 500-10,000 mIU/mL4-5 Weeks:1000-50,000 mIU/mL5-6 Weeks: 10,000-100,000 mIU/mL6-8 Weeks: 15,000-200,000 mIU/mL2-3 Months:10,000-100,000 mIU/mL Serum or plasma calcium willie urement (mass/volume)Ordered By: Derek Barone on 01-10-2025 Calcium [Mass/Vol] 9.3 mg/dL 7.6-11.0 [facility] Serum or plasma urea nitroge n measurement (mass/volume)Ordered By: Derek Barone on 01-10-2025 Urea nitrogen [Mass/Vol] 9 mg/dL 4-19 Sodium levelOrdered By: Deerk Barone on 01-10-2025 Sodium [Moles/Vol] 139 mmol/L 133-145 [facility] hCG Titer Quant., Serumon HCG QUANT. < 1 Normal <9 non-preg Comment on above: Result Comment: Gest ational Age 0.2-1 Week: 5-50 mIU/mL 1-2 Weeks: 50-500 mIU/mL 2-3 Weeks: 100-5000 mIU/mL 3-4 Weeks: 500-10,000 mIU/mL 4-5 Weeks:1000-50,000 mIU/mL 5-6 Weeks: 10,000-100,000 mIU/mL 6-8 Weeks: 15,000-200,000 mIU/mL 2-3 Months:10,000-100,000 mIU/mL Performed By: #### L 100.0100, L501.6710, L506.1001, L500.4050, L506.0400, L501.9520, L503.6030, L503.0106 #### Laboratory [address] [place], [address] [facility] 12-30-2024 [facility] Telephone (FAMWS) -- WANDA REYNA ([id number]) 1980 F Date Time Provider Department 12/30/24 HILTON DOTY [facility] During your visit today, we recorded [...] Signed Patent states that Dr. Doty could clinical reviewer's notes from [facility], if she is able. [place] vascular providers are Laura Rai and Dr. Barone. Pt also states she had a STAT US of her leg completed on Thursday and it was negative for blood clot. ELSIE Clemens Beth, LPN 01/09/2025 4:34 PM Signed Patient calling surgery is tomorrow and she is very anxious and wanted PCP opinion. See note below. Ngoc Ervin RN 01/09/2025 5:09 PM Addendum Patient calling and states she did not realize that she was suppose to contact her PCP for guidance on if she should hold any of her medications prior to her cath procedure scheduled at [facility] tomorrow on 01/10/25 to put dye and stent into her left leg. ELSIE Clemens Alyson Taylor, APRN.EFI 01/11/2025 10:59 AM Signed This was 2 [...] 1 tablet by mouth once daily. - phentermine-topiramate ER (QSYMIA) 11.25-69 mg 24 [...] of vinnie (more content not included)... Normal [facility] Venous Duplex US, Unilateral on 12-30-2024 Venous Duplex US, Unilateral [facility] Cardiovascular Services [address] [place] [address] Venous Duplex US, Unilateral 12/30/24 1456 MR#: [id number] Acct: [id number] Name: WANDA REYNA Rep #: [id number] : 1980 44 From: Derek Barone MD [...] Date Dictated: 12/30/24 1456 Date Transcribed: 01/05/25945 Burner Shaft: Signed [facility] MR/BMS.Son 12-19-2024 MR/BMS.S [facility] Vascular Surgery [address] [place] [address]. [address] [place] [address] OFFICE VISIT Date of Service: 12/19/24 MR#: [id number] Acct: [id number] Name: WANDA REYNA Rep #: [id number] : 1980 Provider: Dr. 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 She has had prior bilateral GSV ablation and continues to have LE edema/tightness/heaviness left worse than right. Her most recent study revealed isolated SSV reflux on left and SSV/ASV/school guard reflux on the right. We had initially [...] abnormal h (more content not included)... Normal PAP IG HPV APTIMA 16/18,45on 12-14-2024 ADEQ Comment Normal . Comment on above: Order Comment: Speci men Comment: [id number] Comment: No. of containers..01 ThinPrep Vial Result Comment: Sati sfactory for evaluation. Endocervical and/or squamous metaplastic cells (endocervical component) are present. Performed By: #### L 100.0100, L501.6710, L506.1001, L500.4050, L506.0400, L501.9520, L503.6030, L503.0106 #### Laboratory [address] [place], [place], [id number] COMM . Normal . Comment on above: Order Comment: Speci men Comment: [id number] Comment: No. of containers..01 ThinPrep Vial Performed By: #### L 100.0100, L501.6710, L506.1001, L500.4050, L506.0400, L501.9520, L503.6030, L503.0106 #### Laboratory [address] [place], [place], [id number] COMMENT Comment Normal . Comment on above: Order Comment: Speci men Comment: [id number] Comment: No. of containers..01 ThinPrep Vial Result Comment: This liquid based ThinPrep(R) pap test was screened with the use of an image guided system. Performed By: #### L 100.0100, L501.6710, L506.1001, L500.4050, L506.0400, L501.9520, L503.6030, L503.0106 #### Laboratory [address] [place], [place], [address] DIAG Comment Normal . Comment on above: Order Comment: Speci men Comment: [id number] Comment: No. of containers..01 ThinPrep Vial Result Comment: NEGA TIVE FOR INTRAEPITHELIAL LESION OR MALIGNANCY. Performed By: #### L 100.0100, L501.6710, L506.1001, L500.4050, L506.0400, L501.9520, L503.6030, L503.0106 #### Laboratory [address] [place], [place], [address] HPV APTIMA, HR Negative Normal Negative Comment on above: Order Comment: Speci men Comment: [id number] Comment: No. of containers..01 ThinPrep Vial Result Comment: This nucleic acid amplification test detects fourteen high- risk HPV types (16,18,31,33,35,39,45,51,52,56,58,59,66,68) without differentiation. Performed By: #### L 100.0100, L501.6710, L506.1001, L500.4050, L506.0400, L501.9520, L503.6030, L503.0106 #### Laboratory [address] [place], [address] HPV Kaylie Rfx Comment Normal . Comment on above: Order Comment: Speci men Comment: [id number] Comment: No. of containers..01 ThinPrep Vial Result Comment: Crit eria not met, HPV Genotype not performed. Performed at: - [facility] [id number] Peanut Shaker: Viktoriya Vargas MD, Phone: [phone] Performed at: = - [facility] [id number] Peanut Shaker: Viktoriya Vargas MD, Phone: [phone] Performed By: #### L 100.0100, L501.6710, L506.1001, L500.4050, L506.0400, L501.9520, L503.6030, L503.0106 #### Laboratory [address] [place], [address] PAPSMR Comment Normal . Comment on above: Order Comment: Speci men Comment: [id number] Comment: No. of containers..01 ThinPrep Vial Result Comment: The Pap smear is a screening test designed to aid in the detection of premalignant and malignant conditions of the uterine cervix. It is not a diagnostic procedure and should not be used as the sole means of detecting cervical cancer. Both false-positive and false-negative reports do occur. Performed By: #### L 100.0100, L501.6710, L506.1001, L500.4050, L506.0400, L501.9520, L503.6030, L503.0106 #### Laboratory [address] [place], [place], [address] PERFORM Comment Normal . Comment on above: Order Comment: Speci men Comment: [id number] Comment: No. of containers..01 ThinPrep Vial Result Comment: Fauzia Henley, Case Specialist (ASCP) Performed By: #### L 100.0100, L501.6710, L506.1001, L500.4050, L506.0400, L501.9520, L503.6030, L503.0106 #### Laboratory [address] [place], [place], [address] Cervical or vaginal specimen microscopic examination by liquid based cytology (reportOrdered By: Priscilla Nieto on 12-12-2024 Cytology report Cyto stain.thin prep Doc (Cvx/Vag) Comment . Comment on above: Criteria not met, HP V Genotype not performed.Performed at: - [address] [id number] Director: Viktoriya Vargas MD, Phone: [phone] at: = - [facility] [id number] Director: Viktoriya Vargas MD, Phone: [phone] Cervical or vagninal specime n microscopic examination by cytology stain (reported asOrdered By: Priscilla Nieto on 12-12-2024 Cytology report Cyto stain Doc (Cvx/Vag) Comment . Comment on above: The Pap smear is [...] 33,Ordered By: Priscilla Nieto on 12-12-2024 HPV 16+18+31+33+35+39+45+5 1+52+56+58+59+66+68 DNA Probe+sig amp Ql (Cvx) Negative Negative Comment on above: This nucleic acid am plification test detects fourteen high- risk HPV types (16,18,31,33,35,39,45,51,52,56,58,59,66,68)without differentiation. Laboratory - CytologyOrdered By: Priscilla Nieto on 12-12-2024 Case Specialist Cyto stain Nom (Cvx/Vag) [ID] Comment . Comment on above: Guillermina Henley Cytol ogventura (ASCP) Laboratory - Miscellaneous t estsOrdered By: Priscilla Nieto on 12-12-2024 Service comment (Unsp spec) [Interp] . . No Panel InformationOrdered By: Priscilla Nieto on 12-12-2024 Pap Smear Specimen Adequacy Comment . Comment on above: Satisfactory for jarvis luation. Endocervical and/or squamous metaplasticcells (endocervical component) are present. Gauge And Weigh Machine Adjuster Office Visit Reporton 12-12-2024 Gauge And Weigh Machine Adjuster Office Visit Report [facility] [address], [address] [place] [address] OFFICE VISIT Date of Service: 12/12/24 MR#: [id number] Acct: [id number] Name: WANDA REYNA Rep #: [id number] : 1980 Provider: Dr. Priscilla Rene, Age/Sex: 44/F Location[place] [facility] [place] Status: Signed Intake Vital Signs 10/13/24 17:15 11/28/24 10:39 12/12/24 09:30 12/12/24 09:31 Height 5 ft 6 in 5 ft 6 in 5 ft 6 in 5 ft 6 in Weight: 189 lb 2 oz BMI 30.5 BP 125/80 H Intake Visit Reasons: Annual (REFUND SPECIALIST) Bed Setter Required: No Is patient in pain?: No Allergies Penicillins (PCN) Allergy (Severe, Verified 12/12/24 09:30) Anaphylaxis Medications ???Medication ???Instructions ???Recorded ???Confirmed ???Type lorazepam 0.5 mg tablet 0.5 mg PO DAILY PRN PRN Anxiety 12/12/24 History cholecalciferol (vitamin D3) 125 125 mcg PO DAILY 09/24/23 12/12/24 History mcg (5,000 unit) capsule phentermine 11.25 mg-topiramate ER 1 cap PO DAILY 09/24/23 12/12/24 History 69 mg capsule,ext.qgasahc21vw mphas (Qsymia) hydroxychloroquine 200 mg tablet 300 [...] History current occupational status: employed 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 Normal [facility] 11-17-2024 [facility] Telephone (INTMWS) -- WANDA REYNA ([id number]) 1980 F Date Time Provider Department 11/17/24 HILTON DOTY INTMWS During your visit today, we recorded the following information about you: Catina Austin LPN 11/17/2024 2:16 PM Signed [employer] PA rec'd and completed for phentermine topiramateER. This was denied per pts insurance. Note from payer: Request Reference Number: [id number]. QSYMIA CAP 11.25-69 is denied due to [...] In Document Pharmacy Benefits Open Encounter WANDA REYNA - [facility] (OPTUM_IRX) Covered: Retail, Mail Order Unknown: Specialty, Long-Term Care BIN: [id number] : 1980 Group ID: [id number] PCN: [id number] Legal sex: F Group name: Address: [address] [place] [id number] Medication Being Authorized phentermine-topiramate ER (QSYMIA) 11.25-69 mg 24 Hr Capsule Take 1 capsule by mouth once daily for 90 days. BMI 31.32 Dispense: 90 capsule Refills: 1 Start: 11/17/2024 End: 02/15/2025 Class: Normal Diagnoses: Obesity, Class I, BMI 30-34.9; Inflammatory polyarthropathy (HCC); Dyslipidemia This order has been released to its destination. To be filled at: [facility] [place] [id number] [phone] - [phone] Allergies As of Date: 11/17/2024 Noted Allergy Reaction PENICILLINS 08/30/2013 16 - Unknown Date Reviewed: 11/16/2024 Reviewed by: Hilton Doty DO - Fully Assessed Reason for Visit: Insurance Authorization [[id number]] Prescriptions as of 11/17/2024 - phentermine-topiramate ER (QSYMIA) 11.25-69 mg 24 [...] Encounter Status:Closed by CATINA AUSTIN on 11/17/24 [facility] CNOVon 11-16-2024 CNOV Office Visit (FAMPWS ) -- WANDA REYNA ([id number]) 1980 F Date Time Provider Department 11/16/24 7:00 PM HILTON DOTY FAMPWS During your visit today, we recorded the following information about you: Pulse Respiration Blood pressure Weight 60/minute 12/minute 127/89 86.4 kg Hilton Doty, DO 11/16/2024 7:58 PM Addendum Magnesium glycinate 500-800 mg in the evening Powder or pill Hilton Doty, DO 11/17/2024 12:27 PM Signed CC: Wanda Reyna is a 44 year old female who [...] SE Currently She had CT chest at [facility] for her dyspnea symptoms- this testing was normal appearing on review She also had ECHOCARDIOGRAM at [facility] for her dyspnea symptoms- this testing [...] LAD, no (more content not included)... Normal [facility] CNPNon 11-11-2024 CNPN Telephone (PODIWS) -- WANDA REYNA ([id number]) 1980 F Date Time Provider Department 11/11/24 HILTON DOTY PODIWS During your visit today, we recorded the following information about you: Ariana Schwarz MA 11/11/2024 10:40 AM Signed Pt completed CT Chest at [facility]. Results have been scanned into LikeList for Provider to review. Please review under imaging tab. FRENCH Reeder Rebekah, APRN.BUNCH TRIMMER MOLD 11/11/2024 1:[address] looks completely normal, no concerns. nAna Sheikh APRN.Lois Smiley MA 11/11/2024 1:17 PM Signed Pt informed via [employer] message Lois Rod MA Allergies As of [...] Status:Closed by LOIS ROD on 11/11/24 Normal [facility] Absolute lymphocyte countOrd ered By: Hilton Doty on 11-10-2024 Lymphocytes Auto (Unsp spec) [#/Vol] 1.63 10*3/uL 0.83-4.51 Absolute neutrophil countOrd ered By: Hilton Doty on 11-10-2024 Neutrophils (Bld) [#/Vol] 3.5 10*3/uL 2.0-7.7 Anion gap in Serum or Plasma Ordered By: Hilton Doty on 11-10-2024 Anion gap [Moles/Vol] 11 mmol/L 5-15 [facility] Automated lymphocyte count a s percentage of total leukocytesOrdered By: Hilton Doty on 11-10-2024 Lymphocytes/100 WBC Auto (Unsp spec) 29.0 % 19-41 BUN/creatinine ratioOrdered By: Hilton Doty on 04-10-2025 Urea nitrogen/Creatinine [Mass ratio] 13.2 mg/mg 10-20 Basophil percentageOrdered B y: Hilton Doty on 11-10-2024 Basophils/100 WBC (Bld) 0.4 % 0-1 Bilirubin, totalOrdered By: Hilton Doty on 11-10-2024 Bilirubin [Mass/Vol] 0.52 mg/dL 0.00-1.30 [facility] CBC W/Diff, Automatedon 11-01-2024 Absolute Lymph 1.63 X10 3/uL Normal 0.83-4.51 Comment on above: Performed By: #### L 100.0100, L501.6710, L506.1001, L500.4050, L506.0400, L501.9520, L503.6030, L503.0106 #### Laboratory [address] [place], [address] Absolute Neut 3.5 X10 3/uL Normal 2.0-7.7 Comment on above: Performed By: #### L 100.0100, L501.6710, L506.1001, L500.4050, L506.0400, L501.9520, L503.6030, L503.0106 #### Laboratory [address] [place], [address] Basophils/100 WBC (Bld) 0.4 % Normal 0-1 Comment on above: Performed By: #### L 100.0100, L501.6710, L506.1001, L500.4050, L506.0400, L501.9520, L503.6030, L503.0106 #### Laboratory [address] [place], [address] Eosinophils/100 WBC (Bld) 1.6 % Normal 0-5 Comment on above: Performed By: #### L 100.0100, L501.6710, L506.1001, L500.4050, L506.0400, L501.9520, L503.6030, L503.0106 #### Laboratory [address] [place], [address] Erythrocyte distribution width (RBC) [Ratio] 14.2 % Normal 11.6-14.6 Comment on above: Performed By: #### L 100.0100, L501.6710, L506.1001, L500.4050, L506.0400, L501.9520, L503.6030, L503.0106 #### Laboratory [address] [place], [address] Hematocrit (Bld) [Volume fraction] 39.9 % Normal 37-47 Comment on above: Performed By: #### L 100.0100, L501.6710, L506.1001, L500.4050, L506.0400, L501.9520, L503.6030, L503.0106 #### Laboratory [address] [place], [address] Hemoglobin (Bld) [Mass/Vol] 13.4 g/dL Normal 12.0-15.0 Comment on above: Performed By: #### L 100.0100, L501.6710, L506.1001, L500.4050, L506.0400, L501.9520, L503.6030, L503.0106 #### Laboratory [address] [place], [address] IG% 0.200 Normal 0.0-0.9 Comment on above: Result Comment: IG% - Immature Granulocytes (promyelocytes, myelocytes and metamyelocytes) > 1% indicates that a LEFT SHIFT is Present. Performed By: #### L 100.0100, L501.6710, L506.1001, L500.4050, L506.0400, L501.9520, L503.6030, L503.0106 #### Laboratory [address] [place], [address] Lymphocytes/100 WBC (Bld) 29.0 % Normal 19-41 Comment on above: Performed By: #### L 100.0100, L501.6710, L506.1001, L500.4050, L506.0400, L501.9520, L503.6030, L503.0106 #### Laboratory [address] [place], [address] MCH (RBC) [Entitic mass] 30.8 pg Normal 27.0-32.0 Comment on above: Performed By: #### L 100.0100, L501.6710, L506.1001, L500.4050, L506.0400, L501.9520, L503.6030, L503.0106 #### Laboratory [address] [place], [address] MCHC (RBC) [Mass/Vol] 33.6 g/dL Normal 32-36 [facility] Comment on above: Performed By: #### L 100.0100, L501.6710, L506.1001, L500.4050, L506.0400, L501.9520, L503.6030, L503.0106 #### Laboratory [address] [place], [address] MCV (RBC) [Entitic vol] 91.7 fL Normal 81-99 Comment on above: Performed By: #### L 100.0100, L501.6710, L506.1001, L500.4050, L506.0400, L501.9520, L503.6030, L503.0106 #### Laboratory [address] [place], [address] Monocytes/100 WBC (Bld) 7.6 % Normal 0-10 Comment on above: Performed By: #### L 100.0100, L501.6710, L506.1001, L500.4050, L506.0400, L501.9520, L503.6030, L503.0106 #### Laboratory [address] [place], [address] Neutrophils/100 WBC (Bld) 61.2 % Normal 47-70 Comment on above: Performed By: #### L 100.0100, L501.6710, L506.1001, L500.4050, L506.0400, L501.9520, L503.6030, L503.0106 #### Laboratory [address] [place], [address] Nucleated RBC (Bld) [#/Vol] 0 10*3/uL Normal 0-5 Comment on above: Performed By: #### L 100.0100, L501.6710, L506.1001, L500.4050, L506.0400, L501.9520, L503.6030, L503.0106 #### Laboratory [address] [place], [address] Platelet mean volume (Bld) [Entitic vol] 9.7 fL Normal 6.2-12.0 Comment on above: Performed By: #### L 100.0100, L501.6710, L506.1001, L500.4050, L506.0400, L501.9520, L503.6030, L503.0106 #### Laboratory [address] [place], [address] Platelets (Bld) [#/Vol] 244 10*3/uL Normal 150-450 Comment on above: Performed By: #### L 100.0100, L501.6710, L506.1001, L500.4050, L506.0400, L501.9520, L503.6030, L503.0106 #### Laboratory [address] [place], [address] RBC (Bld) [#/Vol] 4.35 10*6/uL Normal 4.2-5.4 [facility] Comment on above: Performed By: #### L 100.0100, L501.6710, L506.1001, L500.4050, L506.0400, L501.9520, L503.6030, L503.0106 #### Laboratory [address] [place], [address] RDW SD 47.7 fl High 35.1-43.9 Comment on above: Performed By: #### L 100.0100, L501.6710, L506.1001, L500.4050, L506.0400, L501.9520, L503.6030, L503.0106 #### Laboratory [address] [place], [address] WBC (Bld) [#/Vol] 5.6 10*3/uL Normal 4.4-11.0 [facility] Comment on above: Performed By: #### L 100.0100, L501.6710, L506.1001, L500.4050, L506.0400, L501.9520, L503.6030, L503.0106 #### Laboratory [address] [place], [address] CRPon 11-10-2024 C-REACTIVE PROT < 3.00 Normal 0.0-3.0 Comment on above: Performed By: #### L 100.0100, L501.6710, L506.1001, L500.4050, L506.0400, L501.9520, L503.6030, L503.0106 #### Laboratory [address] [place], [address] CRP [Mass/Vol]Ordered By: Melissa Doty on 11-10-2024 C-Reactive Protein Extended Range < 3.00 mg/L 0.0-3.0 Calculated total iron bindin g capacityOrdered By: Hilton Doty on 11-10-2024 Total Iron Binding Capacity 262 ug/dL 250-450 Carbon dioxide, total [Moles /volume] in Central venous bloodOrdered By: Hilton Doty on 11-10-2024 CO2 [Moles/Vol] 23.4 mmol/L 21.0-32.0 Chest without Contraston Chest without Contrast [facility] Imaging Services [address], [place] [address] Chest without Contrast MR#: [id number] Acct: [id number] Name: WANDA REYNA Rep #: [id number] : 1980 F 44 From: Leeanna Howard MD PCP: Dr. Hilton Doty DO Status: REG CLI Study: Chest without Contrast Date of Exam: 11/10/24 Exam# [id number] Ordering Dr: Hilton Doty DO PROCEDURE: CHEST [...] the chest. Status post cholecystectomy. Reading Location: [facility] CC: Dr. Hilton Doty, Burner Shaft: Signed Normal Chloride assayOrdered By: Melissa Doty on 11-10-2024 Chloride [Moles/Vol] 105 mmol/L 98-108 [facility] Comprehensive Metabolic Prof ilon 11-10-2024 Albumin [Mass/Vol] 4.1 g/dL Normal 3.5-5.0 [facility] Comment on above: Performed By: #### L 100.0100, L501.6710, L506.1001, L500.4050, L506.0400, L501.9520, L503.6030, L503.0106 #### Laboratory [address] [place], [address] Albumin/Globulin [Mass ratio] 1.3 {ratio} Normal 0.9-2.4 Comment on above: Performed By: #### L 100.0100, L501.6710, L506.1001, L500.4050, L506.0400, L501.9520, L503.6030, L503.0106 #### Laboratory [address] [place], [address] ALK PHOS 72 U/L Normal 35-104 Comment on above: Performed By: #### L 100.0100, L501.6710, L506.1001, L500.4050, L506.0400, L501.9520, L503.6030, L503.0106 #### Laboratory [address] [place], [address] ALT [Catalytic activity/Vol] 23 U/L Normal <=34 Comment on above: Performed By: #### L 100.0100, L501.6710, L506.1001, L500.4050, L506.0400, L501.9520, L503.6030, L503.0106 #### Laboratory [address] [place], [address] AST [Catalytic activity/Vol] 23 U/L Normal <=31 Comment on above: Performed By: #### L 100.0100, L501.6710, L506.1001, L500.4050, L506.0400, L501.9520, L503.6030, L503.0106 #### Laboratory [address] [place], [address] Bilirubin [Mass/Vol] 0.52 mg/dL Normal 0.00-1.30 [facility] Comment on above: Performed By: #### L 100.0100, L501.6710, L506.1001, L500.4050, L506.0400, L501.9520, L503.6030, L503.0106 #### Laboratory [address] [place], [address] BUN/CRE 13.2 RATIO Normal 10-20 Comment on above: Performed By: #### L 100.0100, L501.6710, L506.1001, L500.4050, L506.0400, L501.9520, L503.6030, L503.0106 #### Laboratory [address] [place], [address] Calcium [Mass/Vol] 9.4 mg/dL Normal 7.6-11.0 [facility] Comment on above: Performed By: #### L 100.0100, L501.6710, L506.1001, L500.4050, L506.0400, L501.9520, L503.6030, L503.0106 #### Laboratory [address] [place], [address] Chloride [Moles/Vol] 105 mmol/L Normal 98-108 [facility] Comment on above: Performed By: #### L 100.0100, L501.6710, L506.1001, L500.4050, L506.0400, L501.9520, L503.6030, L503.0106 #### Laboratory [address] [place], [address] CO2 [Moles/Vol] 23.4 mmol/L Normal 21.0-32.0 Comment on above: Performed By: #### L 100.0100, L501.6710, L506.1001, L500.4050, L506.0400, L501.9520, L503.6030, L503.0106 #### Laboratory [address] [place], [address] Creatinine [Mass/Vol] 0.92 mg/dL Normal 0.70-1.20 [facility] Comment on above: Performed By: #### L 100.0100, L501.6710, L506.1001, L500.4050, L506.0400, L501.9520, L503.6030, L503.0106 #### Laboratory [address] [place], [address] GAP 11 Normal 5-15 Comment on above: Performed By: #### L 100.0100, L501.6710, L506.1001, L500.4050, L506.0400, L501.9520, L503.6030, L503.0106 #### Laboratory [address] [place], [address] GFR/1.73 sq M.predicted among non-blacks MDRD (S/P/Bld) [Vol rate/Area] 79 mL/min/{1.73_m2} Normal >60 Comment on above: Result Comment: mL/m in/1.73m2 CKD-EPI Creatinine Equation (2020) Performed By: #### L 100.0100, L501.6710, L506.1001, L500.4050, L506.0400, L501.9520, L503.6030, L503.0106 #### Laboratory [address] [place], [address] Globulin (S) [Mass/Vol] 3.1 g/dL Normal 2.2-4.2 Comment on above: Performed By: #### L 100.0100, L501.6710, L506.1001, L500.4050, L506.0400, L501.9520, L503.6030, L503.0106 #### Laboratory [address] [place], [address] Glucose [Mass/Vol] 107 mg/dL High 70-99 [facility] Comment on above: Performed By: #### L 100.0100, L501.6710, L506.1001, L500.4050, L506.0400, L501.9520, L503.6030, L503.0106 #### Laboratory [address] [place], [address] Potassium [Moles/Vol] 3.9 mmol/L Normal 3.3-5.1 [facility] Comment on above: Performed By: #### L 100.0100, L501.6710, L506.1001, L500.4050, L506.0400, L501.9520, L503.6030, L503.0106 #### Laboratory [address] [place], [address] Sodium [Moles/Vol] 139 mmol/L Normal 133-145 [facility] Comment on above: Performed By: #### L 100.0100, L501.6710, L506.1001, L500.4050, L506.0400, L501.9520, L503.6030, L503.0106 #### Laboratory [address] [place], [place], [address] T PROT 7.1 g/dL Normal 5.9-8.4 Comment on above: Performed By: #### L 100.0100, L501.6710, L506.1001, L500.4050, L506.0400, L501.9520, L503.6030, L503.0106 #### Laboratory [address] [place], [address] Urea nitrogen [Mass/Vol] 12 mg/dL Normal 4-19 Comment on above: Performed By: #### L 100.0100, L501.6710, L506.1001, L500.4050, L506.0400, L501.9520, L503.6030, L503.0106 #### Laboratory [address] [place], [place], [address] Eosinophil percentageOrdered By: Hilton Doty on 11-10-2024 Eosinophils/100 WBC (Bld) 1.6 % 0-5 Erythrocyte distribution wid th (RBC) [Ratio]Ordered By: Hilton Doty on 11-10-2024 Erythrocyte distribution width (RBC) [Entitic vol] 47.7 fL High 35.1-43.9 Erythrocyte distribution wid th ratioOrdered By: Hilton Doty on 11-10-2024 Erythrocyte distribution width (RBC) [Ratio] 14.2 % 11.6-14.6 Erythrocyte distribution wid th standard deviationOrdered By: Hilton Doty on 11-10-2024 Erythrocyte distribution width (RBC) [Ratio] 47.7 fl High 35.1-43.9 GFR/1.73 sq M.predicted rosina g non-blacks MDRD (S/P/Bld) [Vol rate/Area]Ordered By: Hilton Doty on 11-10-2024 Estimated GFR (MDRD) Non-Af Amer 79 >60 Comment on above: mL/min/1.73m2 CKD-EP I Creatinine Equation (2020) Glomerular filtration rate ( GFR) estimation/1.73 sq m using serum, plasma, or whole bOrdered By: Hilton Doty on 11-10-2024 GFR/1.73 sq M.predicted among non-blacks MDRD (S/P/Bld) [Vol rate/Area] 79 mL/min/{1.73_m2} >60 Comment on above: mL/min/1.73m2 CKD-EP I Creatinine Equation (2020) Hematocrit Auto (Bld) [Volum e fraction]Ordered By: Hilton Doty on 11-10-2024 Hematocrit (Bld) [Volume fraction] 39.9 % 37-47 Hemoglobin measurementOrdere d By: Hiltno Doty on 11-10-2024 Hemoglobin (Bld) [Mass/Vol] 13.4 g/dL 12.0-15.0 Immature granulocytes/100 WB C Auto (Bld)Ordered By: Hilton Doty on 11-10-2024 Immature granulocytes/100 WBC (Bld) 0.200 % 0.0-0.9 Comment on above: IG% - Immature Granu locytes (promyelocytes, myelocytes and metamyelocytes) > 1% indicates that a LEFT SHIFT is Present. Iron (Unsp spec) [Mass/Mass] Ordered By: Hilton Doty on 11-10-2024 Iron [Mass/Vol] 93 ug/dL 50-170 Iron measurement (mass/mass) Ordered By: Hilton Doty on 11-10-2024 Iron (Unsp spec) [Mass/Mass] 93 ug/dL 50-170 Iron saturation [Mass fracti on]Ordered By: Hilton Doty on 11-10-2024 Iron Saturation 35.5 % 13-59 Comment on above: Previous reported re sult: 35.0 %Edited by: HENRIETTA on 11/10/24:0902 AMENDED REPORT 11/10/24 0902 IRON SATURATION previously reported as: 35.0 % Iron+Iron Binding Capacityon 11-10-2024 Iron [Mass/Vol] 93 ug/dL Normal 50-170 Comment on above: Performed By: #### L 100.0100, L501.6710, L506.1001, L500.4050, L506.0400, L501.9520, L503.6030, L503.0106 #### Laboratory [address] [place], [address] UIBC 169 ug/dL Low 228-428 Comment on above: Performed By: #### L 100.0100, L501.6710, L506.1001, L500.4050, L506.0400, L501.9520, L503.6030, L503.0106 #### Laboratory [address] [place], [address] Laboratory - Chemistry and C hemistry - challengeOrdered By: Hilton Doty on 11-10-2024 AST [Catalytic activity/Vol] 23 U/L <32 Lymphocytes Auto (Unsp spec) [#/Vol]Ordered By: Hilton Doty on 11-10-2024 Lymphocytes (Bld) [#/Vol] 1.63 10*3/uL 0.83-4.51 Lymphocytes/100 WBC Auto (Un sp spec)Ordered By: iHlton Doty on 11-10-2024 Lymphocytes/100 WBC (Bld) 29.0 % 19-41 MCV (mean corpuscular volume ) determinationOrdered By: Hilton Doty on 11-10-2024 MCV (RBC) [Entitic vol] 91.7 fL 81-99 Mean corpuscular hemoglobin (MCH) determinationOrdered By: Hilton Doty on 11-10-2024 MCH (RBC) [Entitic mass] 30.8 pg 27.0-32.0 Mean corpuscular hemoglobin concentration (MCHC) determinationOrdered By: Hilton Doty on 11-10-2024 MCHC (RBC) [Mass/Vol] 33.6 g/dL 32-36 [facility] Mean platelet volume determi nationOrdered By: Hilton Doty on 11-10-2024 Platelet mean volume (Bld) [Entitic vol] 9.7 fL 6.2-12.0 Monocyte percentageOrdered B y: Hilton Doty on 11-10-2024 Monocytes/100 WBC (Bld) 7.6 % 0-10 Neutrophil percentageOrdered By: Hilton Doty on 11-10-2024 Neutrophils/100 WBC (Bld) 61.2 % 47-70 No Panel InformationOrdered By: Hilton Doty on 11-10-2024 Unsaturated Iron Binding Capacity 169 ug/dL Low 228-428 Nucleated red blood cell per centageOrdered By: Hilton Doty on 11-10-2024 Nucleated RBC/100 WBC (Bld) [Ratio] 0 % 0-5 Platelet countOrdered By: Melissa Doty on 11-10-2024 Platelets (Bld) [#/Vol] 244 10*3/uL 150-450 Potassium (Unsp spec) [Mass/ Vol]Ordered By: Hilton Doty on 11-10-2024 Potassium [Moles/Vol] 3.9 mmol/L 3.3-5.1 [facility] Potassium measurement (mass/ volume)Ordered By: Hilton Doty on 11-10-2024 Potassium (Unsp spec) [Mass/Vol] 3.9 mmol/L 3.3-5.1 RBC Auto (Bld) [#/Vol]Ordere d By: Hilton Doty on 11-10-2024 RBC (Bld) [#/Vol] 4.35 10*6/uL 4.2-5.4 [facility] Serum creatinine measurement (mass/volume)Ordered By: Hilton Doty on 11-10-2024 Creatinine [Mass/Vol] 0.92 mg/dL 0.70-1.20 [facility] Serum globulin measurementOr dered By: Hilton Doty on 11-10-2024 Globulin (S) [Mass/Vol] 3.1 g/dL 2.2-4.2 Serum glucose measurement (m ass/volume)Ordered By: Hilton Doty on 11-10-2024 Glucose [Mass/Vol] 107 mg/dL High 70-99 [facility] Serum or plasma C reactive p rotein measurement (mass/volume)Ordered By: Hilton Doty on 11-10-2024 CRP [Mass/Vol] mg/L 0.0-3.0 Serum or plasma alanine nieto otransferase (ALT) measurementOrdered By: Hilton Doty on 11-10-2024 ALT [Catalytic activity/Vol] 23 U/L <35 Serum or plasma albumin willie urement (mass/volume)Ordered By: Hilton Doty on 11-10-2024 Albumin [Mass/Vol] 4.1 g/dL 3.5-5.0 [facility] Serum or plasma albumin/glob ulin mass ratioOrdered By: Hilton Doty on 11-10-2024 Albumin/Globulin [Mass ratio] 1.3 {ratio} 0.9-2.4 Serum or plasma alkaline rima sphatase measurementOrdered By: Hilton Doty on 11-10-2024 ALP [Catalytic activity/Vol] 72 U/L 35-104 Serum or plasma calcium willie urement (mass/volume)Ordered By: Hilton Doty on 11-10-2024 Calcium [Mass/Vol] 9.4 mg/dL 7.6-11.0 [facility] Serum or plasma iron saturat ion measurement (mass fraction)Ordered By: Hilton Doty on 11-10-2024 Iron saturation [Mass fraction] 35.5 % 13-59 Comment on above: Previous reported re sult: 35.0 %Edited by: HENRIETTA on 11/10/24:0902 AMENDED REPORT 11/10/24 0902 IRON SATURATION previously reported as: 35.0 % Serum or plasma urea nitroge n measurement (mass/volume)Ordered By: Hilton Doty on 11-10-2024 Urea nitrogen [Mass/Vol] 12 mg/dL 4-19 Sodium levelOrdered By: Jason Doty on 11-10-2024 Sodium [Moles/Vol] 139 mmol/L 133-145 [facility] T4 Free Directon 11-10-2024 T4 FREE DIRECT 1.20 ng/dL Normal 0.76-1.46 Comment on above: Performed By: #### L 100.0100, L501.6710, L506.1001, L500.4050, L506.0400, L501.9520, L503.6030, L503.0106 #### Laboratory [address] [place], [place], [id number] (942) T4 freeOrdered By: Hilton gomes on 11-10-2024 Free T4 [Mass/Vol] 1.20 ng/dL 0.76-1.46 [facility] TSH DL <= 0.005 mIU/L QnOrde red By: Hilton Doty on 11-10-2024 Thyroid Stimulating Hormone (TSH) 2.360 uIU/mL 0.300-4.200 TSH Qn 2.360 uIU/mL 0.300-4.200 Thyroid Stim Hormone (TSH)on 11-10-2024 TSH 2.360 uIU/mL Normal 0.300-4.200 Comment on above: Performed By: #### L 100.0100, L501.6710, L506.1001, L500.4050, L506.0400, L501.9520, L503.6030, L503.0106 #### Laboratory [address] [place], [address] Total proteinOrdered By: Clay Doty on 11-10-2024 Protein [Mass/Vol] 7.1 g/dL 5.9-8.4 [facility] Vitamin B12on 11-10-2024 Cobalamin (Vitamin B12) [Mass/Vol] 756 pg/mL Normal 180-914 Comment on above: Performed By: #### L 100.0100, L501.6710, L506.1001, L500.4050, L506.0400, L501.9520, L503.6030, L503.0106 #### Laboratory [address] [place], [place], [id number] Vitamin B12 ser/plasOrdered By: Hilton Doty on 11-10-2024 Cobalamin (Vitamin B12) [Mass/Vol] 756 pg/mL 180-914 Vitamin D, 25-hydroxyOrdered By: Hilton Doty on 11-10-2024 Vitamin D 25-Hydroxy 58.9 ng/mL 30-100 [facility] Comment on above: Vitamin D StatusDefi ciency: <20 ng/mL (50nmol/L)Insufficiency: 20-30 ng/mL (50-75 nmol/L)Sufficiency: 30-100 ng/mL (75-250 nmol/L)Toxicity: >100 ng/mL (>250 nmol/L) Vitamin D,25 Hydroxyon 11-10 Vitamin D 25-OH 58.9 ng/mL Normal 30-100 Comment on above: Result Comment: Kristen min D Status Deficiency: <20 ng/mL (50nmol/L) Insufficiency: 20-30 ng/mL (50-75 nmol/L) Sufficiency: 30-100 ng/mL (75-250 nmol/L) Toxicity: >100 ng/mL (>250 nmol/L) Performed By: #### L 100.0100, L501.6710, L506.1001, L500.4050, L506.0400, L501.9520, L503.6030, L503.0106 #### [id number] [facility] [place], [address] White blood cell (WBC) count Ordered By: Hilton Doty on 11-10-2024 WBC (Bld) [#/Vol] 5.6 10*3/uL 4.4-11.0 [facility] MR/BMS.BVSon 11-02-2024 /BMS.BVS [facility] Vascular Surgery [address] [place], [place] [address] OFFICE VISIT Date of Service: 11/02/24 MR#: [id number] Acct: [id number] Name: WANDA REYNA Rep #: [id number] : 1980 Provider: JAYE Montero Age/Sex: 44/F Location: [facility] Status: Signed Intake Vital Signs [...] PRN Pain Score 0 11/25/19 11/02/24 Rx 4-10 #20 tabs lorazepam 0.5 mg tablet 0.5 mg PO DAILY PRN PRN Anxiety 11/02/24 History bupropion HCl 75 mg tablet 75 mg PO DIRECTED 09/24/23 04/09/27 History cholecalciferol (vitamin D3) 125 125 mcg PO DAILY 09/24/23 11/02/24 History mcg (5,000 unit) capsule phentermine 11.25 mg-topiramate ER 1 cap PO DAILY 09/24/23 11/02/24 History 69 mg capsule,ext.pwowhhq99ze mphas (Qsymia) hydroxychloroquine 200 mg tablet 300 [...] History current occupational status: employed 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 Normal [facility] WANDA REYNA ([id number]) 1980 F Date Time Provider Department 10/28/24 [...] information. DRUG NAME: Azelex Cre 20% Wanda Reyna PATIENT INFO: PROVIDER: Lisa García APRN.BUNCH TRIMMER MOLD 10/28/2024 2:31 PM Signed Please call patient and let her know. She can call insurance for alternative if needed. Thank you, LIDIA Quinones Janice, LPN 11/02/2024 11:40 AM Signed Called the pharmacy and they report the generic azeliac acid would be covered, this is a 15% though. Pt has not picked the rx for the 20% nor has she responded to the pharmacy chart message. Anna Sheikh APRN.CNP 11/04/2024 8:07 AM Signed Noted, thank you Anna Sheikh APRN.BUNCH TRIMMER MOLD Allergies As of Date: 10/28/2024 Noted Allergy [...] Encounter Status:Closed by ANNA SHEIKH on 11/04/24 [facility] CNOVon 10-26-2024 CNOV Office Visit (FAMPWS ) -- WANDA REYNA ([id number]) 1980 F Date Time Provider Department 10/26/24 6:20 PM HILTON DOTY FAMPWS During your visit today, we recorded the following information about you: Temperature Pulse Respiration Blood pressure 97.4 degrees 76/minute 16/minute 120/80 Weight Last Period 86.2 kg 10/01/24 DotyHilton de souzaDO 10/26/2024 10:00 PM Signed CC: Wanda Reyna is a 44 year old female who [...] disease PAST SURGICAL HISTORY Procedure Laterality Date [facility] (MISSED AB 1ST TRIMESTER) 2001 ESWL Right [...] of interstitial (more content not included)... Normal [facility] Echo Completeon 10-26-2024 Echo Complete [facility] Cardi[facility] Services [address] [place] [address] Echo Complete 10/26/24 1250 MR#: [id number] Acct: [id number] Name: WANDA REYNA Rep #: [id number] : 1980 44 From: Stone Quiñonez MD Attending Dr: Rajinder Hinton, HAND RUG CLEANER-C Status: REG CLI Ordering Dr: Rajinder Hinton HAND RUG CLEANER-C Date: 10/26/24 Location: [facility] Sex: F C Admitted: Reason For Study [...] Referring Physician: Hilton Doty Performed By: Isaura Plasencia RDCS, RVT 10/26/24 1433 Date Stone Quiñonez MD CC: HAND RUG CLEANER-C Rajinder Hinton; Dr. Hilton Doty DO Date Dictated: 10/26/24 1250 Date Transcribed: 10/26/24 143 Burner Shaft: Signed Normal Echocardiogram study reportO rdered By: Stone Quiñonez on 10-26-2024 Study report [facility] Cardi[facility] Services [address] [place] [address] Echo Complete 10/26/24 1250 MR#: [id number] Acct: [id number] Name: WANDA REYNA Rep #:[id number] : 1980 44 From: Stone Quintero Attending Dr: Rajinder Hinton NP-C Status: REG CLI Ordering Dr: Rajinder Hinton HAND RUG CLEANERBenjamin Date : 10/26/24 Location: [facility] Sex: F C Admitted: Reason For Study [...] % EF(MOD-sp2): 63.2 % EF(sp4-el): 62.7 % __ SV(MOD-sp4): 56.4 ml SV(MOD-sp2): 54.5 ml SV(sp4-el): 58.8 ml SI(MOD-sp4): 28.7 ml/m2 SI(MOD-sp2): 27.7 ml/m2 __ LA A4 area: 17.6 cm2 LA dimension(2D): 3.0 cm RA A4 area: 11.8 cm2 __ TAPSE: 2.6 cm Time Measurements MV dec time: 0.18 sec Doppler Measurements & Calculations MV E max juanis: 64.3 cm/sec Lat Peak E' Juanis: 16.7 cm/sec Med Peak E' Juanis: 16.9 cm/sec MV A max juanis: 72.0 cm/sec E/E' lat: 3.9 E/E' med: 3.8 MV E/A: 0.89 __ MV V2 max: 87.4 cm/sec MV P1/2t [...] Physician: Hilton Doty Performed By: Isaura Plasencia, ALANCS, RVT 10/26/24 1433 Date _ Stone Quiñonez MD CC: HAND RUG CLEANER-C Rajinder Hinton; Dr. Hilton Doty DO ~ Date Dictated: 10/26/24 1250 Date Transcribed: 10/26/241432 Burner Shaft: Signed Work Phone: [facility] 10-17-2024 [facility] Telephone (BAILEE) -- WANDA REYNA Austin ([id number]) 1980 F Date Time Provider Department 10/17/24 RAJINDER HINTON During your visit today, we recorded the following information about you: Gina Sparks LPN 10/17/2024 2:32 PM Signed Patient calling asking if her lab results are back she had done at [facility] on 10/14? See in lab section scanned in. Patient was going to try to go back to work tomorrow but still feels short of breath with not much activity, and fatigued. Please advise Rajinder Hinton, KJ.BUNCH TRIMMER MOLD 10/17/2024 2:38 PM Signed Please let patient know her BNP is normal. Patient should follow up with Dr. Doty next week as scheduled. Dasia Hopper MA 10/17/2024 3:27 PM Signed Pt notified and verbalized understanding. Pt asking if you have any further recommendations to help with the SOB in the meantime? Dasia WardFRENCH Danielle, KJ.BUNCH TRIMMER MOLD 10/17/2024 3:39 PM Signed Has patient scheduled [...] Please review and advise, ELSIE Iqbal Danielle, KJ.BUNCH TRIMMER MOLD 10/17/2024 4:25 PM Signed I want her to increase her chlorthalidone to 50mg daily x3 days and let me know if symptoms improve. Lissa Cedillo RN 10/17/2024 4:41 PM Signed Pt called and is notified of providers results and instructions. Pt voices understanding. ELSIE Bishop As of Date: 10/17/2024 Noted Allergy Reaction [...] and 2 tablet in the afternoon - phentermine-topiramate ER (QSYMIA) 11.25-69 mg 24 [...] Encounter Pres (more content not included)... Normal [facility] CNOVon 10-14-2024 CNOV Office Visit (JOANPWS ) -- WANDA REYNA ([id number]) 1980 F Date Time Provider Department 10/14/24 1:40 PM RAJINDER HINTONWS During your visit today, we recorded the following information about you: Pulse Blood pressure Weight 81/minute 102/71 85 kg Rajinder Hinton APRN.[employer] 10/14/2024 1:40 PM Signed Chief Complaint Patient [...] Mammogram Screening due on 07/01/2022 Covid-19 Vaccine( - 2023- season) due on 04/03/2024 DTaP,Tdap,Td [...] CHLORIDE 0.9 % (FLUSH) INJECTION SYRINGE Rajinder Hinton, KJ.[employer] Allergies As of Date: 10/14/2024 Noted Allergy Reaction PENICILLINS 08/30/2013 16 - Unknown Date Reviewed: 10/14/2024 Reviewed by: Dasia Hopper MA - Fully Assessed Reason for Visit: ER F/U [41] Primary Visit Diagnosis:Bilateral leg edema [R60.0] Other Visit Diagnoses:SOB (shortness of breath) [R06.02] Obesity, Class I, BMI 30-34.9 [E66.811] Order(s):ECHO [821012] Order #: [id number]: 1 FUTURE NT PRO BNP [SQNTBNP] Order #: [id number] FUTURE Prescriptions as of 0 (more content not included)... [facility] -- WANDA REYNA ([id number]) 1980 F Date Time Provider Department 10/14/24 [facility] During your visit today, we recorded the following information about you: Frank Obando RN 10/14/2024 3:22 PM Signed Patient calls to report that she is having trouble scheduling ECHO with [facility] until out into November because it doesn't say stat. Patient asking if order can be changed to STAT and sent to [facility] scheduling. 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 10/14/2024 3:41 PM Signed New order placed. Please fax to [facility]. Dasia Hopper MA 10/17/2024 10:17 AM Signed New stat order faxed to [facility] Dasia Hopper MA Allergies As of Date: 10/14/2024 Noted Allergy Reaction PENICILLINS 08/30/2013 16 - Unknown Date Reviewed: 10/14/2024 Reviewed by: Dasia Hopper MA - Fully Assessed Reason for Visit: Patient Question [1477] Primary Visit Diagnosis:Bilateral leg edema [R60.0] Other Visit Diagnosis:SOB (shortness of breath) [R06.02] Order(s):ECHO [016728] Order #: [id number]: 1 FUTURE Prescriptions as of 10/17/2024 - chlorthalidone (HYGROTON) 25 mg tablet Take 1 tablet by mouth once daily. As needed for edema - buPROPion (WELLBUTRIN) 75 mg tablet Take 2 tablets in the AM and 2 tablet in the afternoon - phentermine-topiramate ER (QSYMIA) 11.25-69 mg 24 [...] Status:Closed by RAJINDER HINTON on 10/17/24 Normal [facility] L503.7505on 10-14-2024 proBNP < 36 Normal <=450 Comment on above: Result Comment: Hear t Failure Unlikely: < 300 pg/mL Heart Failure Likely < 50 Years: > 450 pg/mL 50-75 Years: > 900 pg/mL >75 Years: > 1800 pg/mL Performed By: #### L 100.0100, L501.6710, L506.1001, L500.4050, L506.0400, L501.9520, L503.6030, L503.0106 #### Laboratory [address] [place], [address] No Panel InformationOrdered By: Laura Rai on 10-14-2024 EZ-TfkR-Prxm Natriuretic Peptide II < 36 pg/mL <450 Comment on above: Heart Failure Unlike ly: < 300 pg/mLHeart Failure Likely< 50 Years: > 450 pg/mL50-75 Years: > 900 pg/mL>75 Years: > 1800 pg/mL Venous Duplex US, Unilateral on 10-14-2024 Venous Duplex US, Unilateral [facility] [address] [facility] [place] [address] Venous Duplex US, Unilateral 10/14/24 1053 MR#: [id number] Acct: [id number] Name: WANDA REYNA Rep #: [id number] : 1980 44 From: Derek Barone MD Attending Dr: JAYE Montero Status: DEP I Ordering Dr: Laura Rai Date: 10/14/24 Location: [...] Dictated: 10/14/24 1053 Date Transcribed: 10/24/24 1220 Burner Shaft: Signed [facility] 12 Lead EKGon 10-13-2024 12 Lead EKG [facility] Cardiovascular Services [address] [place] [address] 12 Lead EKG 10/13/24 1723 MR#: [id number] Acct: [id number] Name: WANDA REYNA Rep #: [id number] : 1980 44 From: Smita Gongora MD [...] ADKINS, LUCIANO ([id number]), editor city RODOLFO PIEDRA ([id number]) on 10/17/2024 10:48:12 AM Referred By: Charlie Lombardo Confirmed By: LUCIANO GONGORA MD 10/17/24 1048 Date Smita Gongora MD CC: Dr. Hilton Doty DO; Dr. Charlie Lombardo, Signed Normal Absolute lymphocyte countOrd ered By: Charlie Lombardo on 10-13-2024 Lymphocytes Auto (Unsp spec) [#/Vol] 2.32 10*3/uL 0.83-4.51 Absolute neutrophil countOrd ered By: Charlie Lombardo on 10-13-2024 Neutrophils (Bld) [#/Vol] 4.5 10*3/uL 2.0-7.7 Anion gap in Serum or Plasma Ordered By: Charlie Lombardo on 10-13-2024 Anion gap [Moles/Vol] 14 mmol/L 5-15 [facility] Automated lymphocyte count a s percentage of total leukocytesOrdered By: Charlie Lombardo on 10-13-2024 Lymphocytes/100 WBC Auto (Unsp spec) 30.6 % 19-41 BUN/creatinine ratioOrdered By: Charlie Lombardo on 10-13-2024 Urea nitrogen/Creatinine [Mass ratio] 14.3 mg/mg - Basic Metabolic Profile (BMP )on 10-13-2024 BUN/CRE 14.3 RATIO Normal - Comment on above: Performed By: #### L 500.2500, L100.0100 #### [address] [place], [address] Calcium [Mass/Vol] 9.8 mg/dL Normal 7.6-11.0 [facility] Comment on above: Performed By: #### L 500.2500, L100.0100 #### [address] [place], [address] Chloride [Moles/Vol] 99 mmol/L Normal 98-108 [facility] Comment on above: Performed By: #### L 500.2500, L100.0100 #### [address] [place], [address] CO2 [Moles/Vol] 23.6 mmol/L Normal 21.0-32.0 Comment on above: Performed By: #### L 500.2500, L100.0100 #### [address] [place], [address] Creatinine [Mass/Vol] 0.89 mg/dL Normal 0.70-1.20 [facility] Comment on above: Performed By: #### L 500.2500, L100.0100 #### [address] [place], [address] ECRCL 88.51 ml/min Normal 50-250 Comment on above: Performed By: #### L 500.2500, L100.0100 #### [address] [place], [address] GAP 14 Normal 5-15 Comment on above: Performed By: #### L 500.2500, L100.0100 #### [address] [place], [address] GFR/1.73 sq M.predicted among non-blacks MDRD (S/P/Bld) [Vol rate/Area] 82 mL/min/{1.73_m2} Normal >60 Comment on above: Result Comment: mL/m in/1.73m2 CKD-EPI Creatinine Equation (2020) Performed By: #### L 500.2500, L100.0100 #### [address] [place], [address] Glucose [Mass/Vol] 92 mg/dL Normal 70-99 [facility] Comment on above: Performed By: #### L 500.2500, L100.0100 #### [address] [place], [address] Potassium [Moles/Vol] 3.6 mmol/L Normal 3.3-5.1 [facility] Comment on above: Result Comment: Hemo lysis present, Results??could be affected. ?? Performed By: #### L 500.2500, L100.0100 #### [address] [place], [address] Sodium [Moles/Vol] 136 mmol/L Normal 133-145 [facility] Comment on above: Performed By: #### L 500.2500, L100.0100 #### [address] [place], [address] Urea nitrogen [Mass/Vol] 13 mg/dL Normal 4-19 Comment on above: Performed By: #### L 500.2500, L100.0100 #### [address] [place], [address] Basophil percentageOrdered B y: Charlie Lombardo on 10-13-2024 Basophils/100 WBC (Bld) 0.4 % 0-1 Blood manual differential co mment interpretation (narrative result)Ordered By: Charlie Lombardo on 10-13-2024 Manual differential comment Anselmo (Bld) [Interp] SCANNED CBC W/Diff, Automatedon 03- SMEAR COMMENT SCANNED Normal Comment on above: Performed By: #### L 500.2500, L100.0100 #### [address] [facility] [place], [address] Carbon dioxide, total [Moles /volume] in Central venous bloodOrdered By: Charlie Lombardo on 10-13-2024 CO2 [Moles/Vol] 23.6 mmol/L 21.0-32.0 Chest PA and Lateralon 10-13 Chest PA and Lateral [facility] Imaging Services [address] [place], [place] [address] Chest PA and Lateral MR#: [id number] Acct: [id number] Name: WANDA REYNA Rep #: [id number] : 1980 F 44 From: Lazaro Noriega i, MD PCP: Dr. Hilton Doty DO Status: REG ER Study: Chest PA and Lateral Date of Exam: 10/13/24 Exam# [id number] Ordering Dr: Charlie Lombardo DO PROCEDURE: CHEST [...] IMPRESSION: No acute pulmonary disease. Reading Location: [id number] CC: Dr. Hilton Doty DO; Dr. Charlie Lombardo DO Burner Shaft: Signed Normal Chloride assayOrdered By: Quoc Lombardo on 10-13-2024 Chloride [Moles/Vol] 99 mmol/L 98-108 [facility] D-Dimer Quantitative (DVT/PE )on 10-13-2024 D-DIMER QUANT < 0.27 Low 0.27-0.49 Comment on above: Result Comment: NORM AL D-Dimer level (<0.50) indicates no DVT or PE. NORMAL D-Dimer level (<0.50) indicates no DVT or PE. Performed By: #### L 300.8000 #### [address] [facility] [place], [place], [address] D-dimer measurement for deep venous thrombosisOrdered By: Charlie Lombardo on 10-13-2024 D-Dimer Quantitative (PE/DVT) < 0.27 FEU/ug/m Low 0.27-0.49 Comment on above: NORMAL D-Dimer level (<0.50) indicates no DVT or PE. NORMAL D-Dimer level (<0.50) indicates no DVT or PE. 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 Normal Eosinophil percentageOrdered By: Charlie Lombardo on 10-13-2024 Eosinophils/100 WBC (Bld) 1.3 % 0-5 Erythrocyte distribution wid th ratioOrdered By: Charlie Lombardo on 10-13-2024 Erythrocyte distribution width (RBC) [Ratio] 13.2 % 11.6-14.6 Erythrocyte distribution wid th standard deviationOrdered By: Charlie Lombardo on 10-13-2024 Erythrocyte distribution width (RBC) [Entitic vol] 43.6 fL 35.1-43.9 Erythrocyte distribution width (RBC) [Ratio] 43.6 fl 35.1-43.9 Estimation of creatinine eduar aranceOrdered By: Charlie Lombardo on 10-13-2024 Estimated Creatinine Clearance Calc 88.51 ml/min 50-250 GFR/1.73 sq M.predicted rosina g non-blacks MDRD (S/P/Bld) [Vol rate/Area]Ordered By: Charlie Lombardo on 10-13-2024 Estimated GFR (MDRD) Non-Af Amer 82 >60 Comment on above: mL/min/1.73m2 CKD-EP I Creatinine Equation (2020) Glomerular filtration rate ( GFR) estimation/1.73 sq m using serum, plasma, or whole bOrdered By: Charlie Lombardo on 10-13-2024 GFR/1.73 sq M.predicted among non-blacks MDRD (S/P/Bld) [Vol rate/Area] 82 mL/min/{1.73_m2} >60 Comment on above: mL/min/1.73m2 CKD-EP I Creatinine Equation (2020) Hematocrit Auto (Bld) [Volum e fraction]Ordered By: Charlie Lombardo on 10-13-2024 Hematocrit (Bld) [Volume fraction] 43.5 % 37-47 Hemoglobin measurementOrdere d By: Charlie Lombardo on 10-13-2024 Hemoglobin (Bld) [Mass/Vol] 14.5 g/dL 12.0-15.0 Immature granulocytes/100 WB C Auto (Bld)Ordered By: Charlie Lombardo on 10-13-2024 Immature granulocytes/100 WBC (Bld) 0.300 % 0.0-0.9 Comment on above: IG% - Immature Granu locytes (promyelocytes, myelocytes and metamyelocytes) > 1% indicates that a LEFT SHIFT is Present. L499.0042on 03-13-2025 Trop T High Sen 6 ng/L Normal <=14 Comment on above: Performed By: #### L 499.0042 #### [address] [place], [address] L499.0043on 10-13-2024 Trop T High Sen Normal <=14 Comment on above: Result Comment: Canc elled via OM: Order cancelled - Patient discharged Performed By: #### L 499.0043 #### [address] [place], [address] L501.4021on 10-13-2024 Trop T High Sen < 6 Normal <=14 Comment on above: Result Comment: Hemo lysis present, Results??could be affected. ?? Performed By: #### L 501.4021 #### Laboratory [address] [place], [address] Lymphocytes Auto (Unsp spec) [#/Vol]Ordered By: Charlie Lombardo on 10-13-2024 Lymphocytes (Bld) [#/Vol] 2.32 10*3/uL 0.83-4.51 Lymphocytes/100 WBC Auto (Un sp spec)Ordered By: Charlie Lombardo on 10-13-2024 Lymphocytes/100 WBC (Bld) 30.6 % 19-41 MCV (mean corpuscular volume ) determinationOrdered By: Charlie Lombardo on 10-13-2024 MCV (RBC) [Entitic vol] 89.9 fL 81-99 Manual differential comment Anselmo (Bld) [Interp]Ordered By: Charlie Lombardo on 10-13-2024 Differential Comment SCANNED [facility] Mean corpuscular hemoglobin (MCH) determinationOrdered By: Charlie Lombardo on 10-13-2024 MCH (RBC) [Entitic mass] 30.0 pg 27.0-32.0 Mean corpuscular hemoglobin concentration (MCHC) determinationOrdered By: Charlie Lombardo on 10-13-2024 MCHC (RBC) [Mass/Vol] 33.3 g/dL 32-36 [facility] Mean platelet volume determi nationOrdered By: Charlie Lombardo on 10-13-2024 Platelet mean volume (Bld) [Entitic vol] 10.2 fL 6.2-12.0 Monocyte percentageOrdered B y: Charlie Lombardo on 10-13-2024 Monocytes/100 WBC (Bld) 8.4 % 0-10 Neutrophil percentageOrdered By: Charlie Lombardo on 10-13-2024 Neutrophils/100 WBC (Bld) 59.0 % 47-70 No Panel InformationOrdered By: Charlie Lombardo on 10-13-2024 Troponin T High Sensitivity < 6 ng/L <14 Comment on above: Hemolysis present, R esults could be affected. Nucleated red blood cell per centageOrdered By: Charlie Lombardo on 10-13-2024 Nucleated RBC/100 WBC (Bld) [Ratio] 0 % 0-5 Platelet countOrdered By: Quoc Lombardo on 10-13-2024 Platelets (Bld) [#/Vol] 243 10*3/uL 150-450 Potassium (Unsp spec) [Mass/ Vol]Ordered By: Charlie Lombardo on 10-13-2024 Potassium [Moles/Vol] 3.6 mmol/L 3.3-5.1 [facility] Comment on above: Hemolysis present, R esults could be affected. Potassium measurement (mass/ volume)Ordered By: Charlie Lombardo on 10-13-2024 Potassium (Unsp spec) [Mass/Vol] 3.6 mmol/L 3.3-5.1 Comment on above: Hemolysis present, R esults could be affected. ,Urineon 10-13-2024 Beta HCG ( test) Ql (U) Negative Normal Comment on above: Result Comment: Very dilute urine specimens, as indicated by a low specific gravity, may not contain associate sales representative levels of hCG. If is still suspected, a first morning urine specimen should be collected 48 hours later and tested. Performed By: #### L 400.3969 #### [address] [place], [address] RBC Auto (Bld) [#/Vol]Ordere d By: Charlie Lombardo on 10-13-2024 RBC (Bld) [#/Vol] 4.84 10*6/uL 4.2-5.4 [facility] Serum creatinine measurement (mass/volume)Ordered By: Charlie Lombardo on 10-13-2024 Creatinine [Mass/Vol] 0.89 mg/dL 0.70-1.20 [facility] Serum glucose measurement (m ass/volume)Ordered By: Charlie Lombardo on 10-13-2024 Glucose [Mass/Vol] 92 mg/dL 70-99 [facility] Serum or plasma calcium willie urement (mass/volume)Ordered By: Charlie Lombardo on 10-13-2024 Calcium [Mass/Vol] 9.8 mg/dL 7.6-11.0 [facility] Serum or plasma urea nitroge n measurement (mass/volume)Ordered By: Charlie Lombardo on 10-13-2024 Urea nitrogen [Mass/Vol] 13 mg/dL 4-19 Sodium levelOrdered By: Charlie Lombardo on 10-13-2024 Sodium [Moles/Vol] 136 mmol/L 133-145 [facility] Troponin T.cardiac High sens itivity method [Mass/Vol]Ordered By: Charlie Lombardo on 10-13-2024 Troponin T High Sensitivity 2 Hour 6 ng/L <14 Troponin T.cardiac [Mass/vol ume] in Serum or Plasma by High sensitivity methodOrdered By: Charlie Lombardo on 10-13-2024 Troponin T.cardiac High sensitivity method [Mass/Vol] 6 ng/L <14 Urine testOrdered By: Charlie Lombardo on 10-13-2024 HCG ( test) Ql (U) Negative Comment on above: Very dilute urine sp ecimens, as indicated by a low specificgravity, may not contain associate sales representative levels of hCG. If is still suspected, a first morning urinespecimen should be collected 48 hours later and tested. White blood cell (WBC) count Ordered By: Charlie Lombardo on 10-13-2024 WBC (Bld) [#/Vol] 7.6 10*3/uL 4.4-11.0 [facility] CNPNon 10-07-2024 CNPN Telephone (FAMPWS) -- WANDA REYNA ([id number]) 1980 F Date Time Provider Department 10/07/24 [facility] During your visit today, we recorded the following information about you: Ngoc Ervin RN 10/07/2024 10:40 AM Signed Patient asking if Dr. Doyt could review her [facility] lab results that were completed 09/22/24 (in scanned docs), as well as her [facility] Note from 09/08/24 (in scanned docs as well). Pt states there is no solano to review these records, but wanted Dr. Doty's advise on her lab results, as she sees there are some numbers that are off and she was not feeling well during the time she had her labs drawn. Pt states she will be following up with [facility] in November. ELSIE Clemens Jordan L, DO 10/19/2024 7:58 PM Signed Please inform patient that labs were stable other than CRP was elevated mildly. Recommend addressing this with Client Development Manager DO Riky Brady M Robin, RN 10/20/2024 9:22 AM Signed Phoned pt and given provider's message below. Pt states she hasn't seen a credit assessment analyst since last year. Reports pcp agreed to [...] No suspicious activity was identified. 10/20/2024 by LIDIA Quinones Linda M, LPN 10/20/2024 10:26 AM Signed Pt states understanding. Now asking what is a good amount of of water for her to be drinking? Statesw at last appointment was told to watch fluid intake but with her meds they make her super thirsty. So asking what is an ok amount to drink? Lisa Doll APRN.CNP 10/20/2024 10:55 AM Signed No need for fluid restriction after getting BNP results as normal and normal kidney function. I would suggest around 60oz of water per day. Thank you, Lisa Doll APRN.CNP Allergies As of Date: 10/07/2024 Noted Allergy [...] and 2 tablet in the afternoon - phentermine-topiramate ER (QSYMIA) 11.25-69 mg 24 [...] (morbid obesity*10/14/19 (more content not included)... Normal [facility] Breast imaging reportOrdered By: Jimmy Cam on 09-26-2024 Study report [facility] Imaging Services [address] [place] [address] SCRN MAMM (CAD)W/KYMBERLYDaryn CARIAS MR#: [id number] Acct: [id number] Name: WANDA REYNA Rep #: [id number] : 1980 F 44 From: Beni Cam MD PCP: Dr. Hilton Doty, Status: RE G CLI Study:SCRN MAMM (CAD)W/KYMBERLY BILAT Date of Exa m: 09/26/24 Exam# [id number] Ordering Dr: Nilda Loya HAND RUG CLEANER HAND RUG CLEANER-C PROCEDURE: SCRN MAMM (CAD)W/KYMBERLY BILAT REASON FOR [...] of the results by letter. Reading Location: [id number] CC: HAND RUG CLEANER-C Nilda Loya; Dr. Hilton Doty, ~ Burner Shaft: Signed SCRN MAMM (CAD)W/KYMBERLY BILATo n 09-26-2024 SCRN MAMM (CAD)W/KYMBERLY BILAT [facility] Imaging Services [address] [place] [address] SCRN MAMM (CAD)W/KYMBERLY BILAT MR#: [id number] Acct: [id number] Name: WANDA REYNA Rep #: [id number] : 1980 F 44 From: Jimmy hood MD PCP: Dr. Hilton Doty, Status: REG CLI Study: SCRN MAMM (CAD)W/KYMBERLY BILAT Date of Exam: 09/04 11/25 Exam# [id number] Ordering Dr: Nilda Loya HAND RUG CLEANER HAND RUG CLEANER -C PROCEDURE: SCRN MAMM (CAD)W/KYMBERLY BILAT REASON [...] of the results by letter. Reading Location: [facility]OD-[facility]US[facility]Y CC: BUSTER Loya; Dr. Hilton Doty DO Burner Shaft: Signed Normal Absolute lymphocyte countOrd ered By: Hilton Doty on 09-22-2024 Lymphocytes Auto (Unsp spec) [#/Vol] 1.27 10*3/uL 0.83-4.51 Absolute neutrophil countOrd ered By: Hliton Doty on 09-22-2024 Neutrophils (Bld) [#/Vol] 3.9 10*3/uL 2.0-7.7 Albumin to globulin ratioOrd ered By: Hilton Doty on 09-22-2024 Albumin/Globulin [Mass ratio] 0.9 {ratio} 0.9-2.4 Automated lymphocyte count a s percentage of total leukocytesOrdered By: Hilton Doty on 09-22-2024 Lymphocytes/100 WBC Auto (Unsp spec) 21.3 % 19-41 Basophil percentageOrdered B y: Hilton Doty on 09-22-2024 Basophils/100 WBC (Bld) 0.5 % 0-1 Bilirubin, totalOrdered By: Hilton Doty on 09-22-2024 Bilirubin [Mass/Vol] 0.50 mg/dL 0.20-1.00 [facility] Comment on above: For patients on eltr ombopag therapy, use of Dimension [place] TBIL is not recommended. Blood urea nitrogen (BUN)/cr eatinine ratioOrdered By: Hilton Doty on 09-22-2024 Urea nitrogen/Creatinine [Mass ratio] 15.1 mg/mg 05-22 C-reactive protein measureme nt by high sensitivity methodOrdered By: Hilton Doty on 09-22-2024 C-Reactive Protein Extended Range 5.87 mg/L High 0.0-3.0 Comment on above: C-Reactive Protein ( CRP) provides useful information for thediagnosis, therapy and monitoring of inflammatory processesand associated diseases. For the evaluation of Relative Riskfor Cardiovascular Disease, a High Sensitivity CRP (HSCRP)should be ordered. C-reactive protein measurement by high sensitivity method 5.87 mg/L High 0.0-3.0 Comment on above: C-Reactive Protein ( CRP) provides useful information for thediagnosis, therapy and monitoring of inflammatory processesand associated diseases. For the evaluation of Relative Riskfor Cardiovascular Disease, a High Sensitivity CRP (HSCRP)should be ordered. CBC W/Diff, Automatedon 09-04 Absolute Lymph 1.27 X10 3/uL Normal 0.83-4.51 Comment on above: Performed By: #### L 501.6710, L500.4050, L100.0100, L501.9520 #### [address] [place], [address] Absolute Neut 3.9 X10 3/uL Normal 2.0-7.7 Comment on above: Performed By: #### L 501.6710, L500.4050, L100.0100, L501.9520 #### [address] [place], [address] Basophils/100 WBC (Bld) 0.5 % Normal 0-1 Comment on above: Performed By: #### L 501.6710, L500.4050, L100.0100, L501.9520 #### [address] [place], [address] Eosinophils/100 WBC (Bld) 1.2 % Normal 0-5 Comment on above: Performed By: #### L 501.6710, L500.4050, L100.0100, L501.9520 #### [address] [place], [address] Erythrocyte distribution width (RBC) [Ratio] 13.0 % Normal 11.6-14.6 Comment on above: Performed By: #### L 501.6710, L500.4050, L100.0100, L501.9520 #### [address] [place], [address] Hematocrit (Bld) [Volume fraction] 42.1 % Normal 37-47 Comment on above: Performed By: #### L 501.6710, L500.4050, L100.0100, L501.9520 #### [address] [place], [address] Hemoglobin (Bld) [Mass/Vol] 14.2 g/dL Normal 12.0-15.0 Comment on above: Performed By: #### L 501.6710, L500.4050, L100.0100, L501.9520 #### [address] [place], [address] IG% 0.300 Normal 0.0-0.9 Comment on above: Result Comment: IG% - Immature Granulocytes (promyelocytes, myelocytes and metamyelocytes) > 1% indicates that a LEFT SHIFT is Present. Performed By: #### L 501.6710, L500.4050, L100.0100, L501.9520 #### [address] [place], [address] Lymphocytes/100 WBC (Bld) 21.3 % Normal 19-41 Comment on above: Performed By: #### L 501.6710, L500.4050, L100.0100, L501.9520 #### [address] [place], [address] MCH (RBC) [Entitic mass] 30.1 pg Normal 27.0-32.0 Comment on above: Performed By: #### L 501.6710, L500.4050, L100.0100, L501.9520 #### [address] [place], [address] MCHC (RBC) [Mass/Vol] 33.7 g/dL Normal 32-36 [facility] Comment on above: Performed By: #### L 501.6710, L500.4050, L100.0100, L501.9520 #### [address] [place], [address] MCV (RBC) [Entitic vol] 89.2 fL Normal 81-99 Comment on above: Performed By: #### L 501.6710, L500.4050, L100.0100, L501.9520 #### [address] [place], [address] Monocytes/100 WBC (Bld) 12.2 % High 0-10 Comment on above: Performed By: #### L 501.6710, L500.4050, L100.0100, L501.9520 #### [address] [place], [address] Neutrophils/100 WBC (Bld) 64.5 % Normal 47-70 Comment on above: Performed By: #### L 501.6710, L500.4050, L100.0100, L501.9520 #### [address] [place], [address] Nucleated RBC (Bld) [#/Vol] 0 10*3/uL Normal 0-5 Comment on above: Performed By: #### L 501.6710, L500.4050, L100.0100, L501.9520 #### [address] [place], [address] Platelet mean volume (Bld) [Entitic vol] 9.5 fL Normal 6.2-12.0 Comment on above: Performed By: #### L 501.6710, L500.4050, L100.0100, L501.9520 #### [address] [place], [address] Platelets (Bld) [#/Vol] 207 10*3/uL Normal 150-450 Comment on above: Performed By: #### L 501.6710, L500.4050, L100.0100, L501.9520 #### [address] [place], [address] RBC (Bld) [#/Vol] 4.72 10*6/uL Normal 4.2-5.4 [facility] Comment on above: Performed By: #### L 501.6710, L500.4050, L100.0100, L501.9520 #### [address] [place], [address] RDW SD 42.7 fl Normal 35.1-43.9 Comment on above: Performed By: #### L 501.6710, L500.4050, L100.0100, L501.9520 #### [address] [place], [address] WBC (Bld) [#/Vol] 6.0 10*3/uL Normal 4.4-11.0 [facility] Comment on above: Performed By: #### L 501.6710, L500.4050, L100.0100, L501.9520 #### [address] [place], [address] [facility] 09-22-2024 [facility] -- WANDA REYNA ([id number]) 1980 F Date Time Provider Department 09/22/24 HILTON DOTY [facility] During your visit today, we recorded the following information about you: Frank Obando RN 09/22/2024 12:36 PM Signed Patient calls to request lab orders be faxed to [facility]. Faxed to [phone] per request. Frank Obando RN Allergies As of Date: 09/22/2024 Noted Allergy Reaction PENICILLINS 08/30/2013 16 - Unknown Date Reviewed: 08/01/2024 Reviewed by: Char Valencia LPN - Fully Assessed Reason for Visit: Orders [681] Prescriptions as of 09/22/2024 - buPROPion (WELLBUTRIN) 75 mg tablet Take 2 tablets in the AM and 2 tablet in the afternoon - phentermine-topiramate ER (QSYMIA) 11.25-69 mg 24 [...] Status:Closed by FRANK OBANDO on 09/22/24 Normal [facility] CRPon 09-22-2024 C-REACTIVE PROT 5.87 mg/L High 0.0-3.0 Comment on above: Result Comment: C-Re active Protein (CRP) provides useful information for the diagnosis, therapy and monitoring of inflammatory processes and associated diseases. For the evaluation of Relative Risk for Cardiovascular Disease, a High Sensitivity CRP (HSCRP) should be ordered. Performed By: #### L 501.6710, L500.4050, L100.0100, L501.9520 #### [id number] [place], [address] Carbon dioxide measurementOr dered By: Hilton Doty on 09-22-2024 CO2 [Moles/Vol] 29.0 mmol/L 21.0-32.0 Chloride measurementOrdered By: Hilton Doty on 09-22-2024 Chloride [Moles/Vol] 101 mmol/L 98-107 [facility] Comprehensive Metabolic Prof ilon 09-22-2024 Albumin [Mass/Vol] 3.8 g/dL Normal 3.2-5.0 [facility] Comment on above: Performed By: #### L 501.6710, L500.4050, L100.0100, L501.9520 #### [id number] [place], [address] Albumin/Globulin [Mass ratio] 0.9 {ratio} Normal 0.9-2.4 Comment on above: Performed By: #### L 501.6710, L500.4050, L100.0100, L501.9520 #### [id number] [place], [address] ALK P 83 U/L Normal 45-117 Comment on above: Performed By: #### L 501.6710, L500.4050, L100.0100, L501.9520 #### [id number] [place], [address] ALT [Catalytic activity/Vol] 22 U/L Normal 13-56 Comment on above: Performed By: #### L 501.6710, L500.4050, L100.0100, L501.9520 #### [id number] [place], [address] AST [Catalytic activity/Vol] 15 U/L Normal 15-37 Comment on above: Performed By: #### L 501.6710, L500.4050, L100.0100, L501.9520 #### [id number] [place], [address] Bilirubin [Mass/Vol] 0.50 mg/dL Normal 0.20-1.00 [facility] Comment on above: Result Comment: For patients on eltrombopag therapy, use of Dimension [place] TBIL is not recommended. Performed By: #### L 501.6710, L500.4050, L100.0100, L501.9520 #### [id number] [place], [address] BUN/CRE 15.1 RATIO Normal 10-20 Comment on above: Performed By: #### L 501.6710, L500.4050, L100.0100, L501.9520 #### [id number] [place], [address] CA,Total 9.4 mg/dL Normal 8.5-10.1 Comment on above: Performed By: #### L 501.6710, L500.4050, L100.0100, L501.9520 #### [id number] [place], [address] Chloride [Moles/Vol] 101 mmol/L Normal 98-107 [facility] Comment on above: Performed By: #### L 501.6710, L500.4050, L100.0100, L501.9520 #### [id number] [place], [address] CO2 [Moles/Vol] 29.0 mmol/L Normal 21.0-32.0 Comment on above: Performed By: #### L 501.6710, L500.4050, L100.0100, L501.9520 #### [id number] [place], [address] Creatinine [Mass/Vol] 0.80 mg/dL Normal 0.55-1.02 [facility] Comment on above: Result Comment: The validity of the calculated GFR GFRAA in patients over 70 years has not been determined. Clinical correlation is essential. Performed By: #### L 501.6710, L500.4050, L100.0100, L501.9520 #### [id number] [place], [address] EST GFR - AA 101 mL/min Normal >60 Comment on above: Result Comment: Afri can [place] GFR Calc Performed By: #### L 501.6710, L500.4050, L100.0100, L501.9520 #### [id number] [place], [address] GAP 6 Normal 5-15 Comment on above: Performed By: #### L 501.6710, L500.4050, L100.0100, L501.9520 #### [id number] [place], [address] GFR/1.73 sq M.predicted among non-blacks MDRD (S/P/Bld) [Vol rate/Area] 83 mL/min/{1.73_m2} Normal >60 Comment on above: Result Comment: Non- GFR Calc Performed By: #### L 501.6710, L500.4050, L100.0100, L501.9520 #### [id number] [place], [address] Globulin (S) [Mass/Vol] 4.1 g/dL Normal 2.2-4.2 Comment on above: Performed By: #### L 501.6710, L500.4050, L100.0100, L501.9520 #### [id number] [place], [address] Glucose [Mass/Vol] 101 mg/dL Normal 74-106 [facility] Comment on above: Result Comment: Fast ing Glucose result from 100 to 125 mg/dL suggests IMPAIRED HOMEOSTASIS per A.D.A. criteria. Performed By: #### L 501.6710, L500.4050, L100.0100, L501.9520 #### [id number] [place], [address] Potassium [Moles/Vol] 3.8 mmol/L Normal 3.5-5.1 [facility] Comment on above: Performed By: #### L 501.6710, L500.4050, L100.0100, L501.9520 #### [id number] [place], [address] Sodium [Moles/Vol] 136 mmol/L Normal 136-145 [facility] Comment on above: Performed By: #### L 501.6710, L500.4050, L100.0100, L501.9520 #### [id number] [place], [address] T PROT 7.9 g/dL Normal 6.4-8.2 Comment on above: Performed By: #### L 501.6710, L500.4050, L100.0100, L501.9520 #### [id number] [place], [address] Urea nitrogen [Mass/Vol] 12 mg/dL Normal 7-18 Comment on above: Performed By: #### L 501.6710, L500.4050, L100.0100, L501.9520 #### [id number] [place], [address] Eosinophil percentageOrdered By: Hilton Doty on 09-22-2024 Eosinophils/100 WBC (Bld) 1.2 % 0-5 Erythrocyte distribution wid th ratioOrdered By: [place] Soren on 09-22-2024 Erythrocyte distribution width (RBC) [Ratio] 13.0 % 11.6-14.6 Erythrocyte distribution wid th standard deviationOrdered By: Hilton Doty on 09-22-2024 Erythrocyte distribution width (RBC) [Entitic vol] 42.7 fL 35.1-43.9 Erythrocyte distribution width (RBC) [Ratio] 42.7 fl 35.1-43.9 Estimated glomerular filtrat ion rate (GFR) AmericanOrdered By: Hilton Doty on 09-22-2024 Estimated GFR (MDRD) Amer 101 mL/min >60 Comment on above: GFR Calc Glomerular filtration rate ( GFR) estimationOrdered By: Hilton Doty on 09-22-2024 Estimated GFR (MDRD) Non-Af Amer 83 mL/min >60 Comment on above: Non- GFR Calc GFR/1.73 sq M.predicted among non-blacks MDRD (S/P/Bld) [Vol rate/Area] 83 mL/min/{1.73_m2} >60 Comment on above: Non- GFR Calc Glucose measurementOrdered B y: Hilton Doty on 09-22-2024 Glucose [Mass/Vol] 101 mg/dL 74-106 [facility] Comment on above: Fasting Glucose resu lt from 100 to 125 mg/dL suggests IMPAIRED HOMEOSTASIS per A.D.A. criteria. Hematocrit Auto (Bld) [Volum e fraction]Ordered By: Hilton Doty on 09-22-2024 Hematocrit (Bld) [Volume fraction] 42.1 % 37-47 Hemoglobin measurementOrdere d By: Hilton Doty on 09-22-2024 Hemoglobin (Bld) [Mass/Vol] 14.2 g/dL 12.0-15.0 Immature granulocytes/100 WB C Auto (Bld)Ordered By: Hilton Doty on 09-22-2024 Immature granulocytes/100 WBC (Bld) 0.300 % 0.0-0.9 Comment on above: IG% - Immature Granu locytes (promyelocytes, myelocytes and metamyelocytes) > 1% indicates that a LEFT SHIFT is Present. Laboratory - Chemistry and C hemistry - challengeOrdered By: Hilton Doty on 09-22-2024 AST [Catalytic activity/Vol] 15 U/L 15-37 Lymphocytes Auto (Unsp spec) [#/Vol]Ordered By: Hilton Doty on 09-22-2024 Lymphocytes (Bld) [#/Vol] 1.27 10*3/uL 0.83-4.51 Lymphocytes/100 WBC Auto (Un sp spec)Ordered By: Hilton Doty on 09-22-2024 Lymphocytes/100 WBC (Bld) 21.3 % 19-41 MCV (mean corpuscular volume ) determinationOrdered By: Hilton Doty on 09-22-2024 MCV (RBC) [Entitic vol] 89.2 fL 81-99 Mean corpuscular hemoglobin (MCH) determinationOrdered By: Hilton Doty on 09-22-2024 MCH (RBC) [Entitic mass] 30.1 pg 27.0-32.0 Mean corpuscular hemoglobin concentration (MCHC) determinationOrdered By: Hilton Doty on 09-22-2024 MCHC (RBC) [Mass/Vol] 33.7 g/dL 32-36 [facility] Mean platelet volume determi nationOrdered By: Hilton Doty on 09-22-2024 Platelet mean volume (Bld) [Entitic vol] 9.5 fL 6.2-12.0 Monocyte percentageOrdered B y: Hilton Doty on 09-22-2024 Monocytes/100 WBC (Bld) 12.2 % High 0-10 Neutrophil percentageOrdered By: Hilton Doty on 09-22-2024 Neutrophils/100 WBC (Bld) 64.5 % 47-70 Nucleated red blood cell per centageOrdered By: Hilton Doty on 09-22-2024 Nucleated RBC/100 WBC (Bld) [Ratio] 0 % 0-5 Platelet countOrdered By: Melissa Doty on 09-22-2024 Platelets (Bld) [#/Vol] 207 10*3/uL 150-450 Potassium measurementOrdered By: Hilton Doty on 09-22-2024 Potassium [Moles/Vol] 3.8 mmol/L 3.5-5.1 [facility] RBC Auto (Bld) [#/Vol]Ordere d By: Hilton Doty on 09-22-2024 RBC (Bld) [#/Vol] 4.72 10*6/uL 4.2-5.4 [facility] Serum anion gap measurementO rdered By: Hilton Doty on 09-22-2024 Anion gap [Moles/Vol] 6 mmol/L 5-15 [facility] Serum globulin measurementOr dered By: Hilton Doty on 09-22-2024 Globulin (S) [Mass/Vol] 4.1 g/dL 2.2-4.2 Serum or plasma alanine nieto otransferase (ALT) measurementOrdered By: Hilton Doty on 09-22-2024 ALT [Catalytic activity/Vol] 22 U/L 13-56 Serum or plasma albumin willie urement (mass/volume)Ordered By: Hilton Doty on 09-22-2024 Albumin [Mass/Vol] 3.8 g/dL 3.2-5.0 [facility] Serum or plasma alkaline rima sphatase measurementOrdered By: Hilton Doty on 09-22-2024 ALP [Catalytic activity/Vol] 83 U/L 45-117 Serum or plasma calcium willie urement (mass/volume)Ordered By: Hilton Doty on 09-22-2024 Calcium [Mass/Vol] 9.4 mg/dL 8.5-10.1 [facility] Serum or plasma creatinine m easurement (mass/volume)Ordered By: Hilton Doty on 09-22-2024 Creatinine [Mass/Vol] 0.80 mg/dL 0.55-1.02 [facility] Comment on above: The validity of the calculated GFR & GFRAA in patients over 70 years has not been determined. Clinical correlation is essential. Serum or plasma thyroid stim ulating hormone (TSH) measurement (units/volume)Ordered By: Hilton Doty on 09-22-2024 TSH Qn 1.810 uIU/mL 0.358-3.740 Serum or plasma urea nitroge n measurement (mass/volume)Ordered By: Hilton Doty on 09-22-2024 Urea nitrogen [Mass/Vol] 12 mg/dL 7-18 Sodium levelOrdered By: Jason Doty on 09-22-2024 Sodium [Moles/Vol] 136 mmol/L 136-145 [facility] TSH QnOrdered By: Hilton de souza on 09-22-2024 Thyroid Stimulating Hormone (TSH) 1.810 uIU/mL 0.358-3.740 Thyroid Stim Hormone (TSH)on 09-22-2024 TSH 1.810 uIU/mL Normal 0.358-3.740 Comment on above: Performed By: #### L 501.6710, L500.4050, L100.0100, L501.9520 #### [id number] [place], [address] Total proteinOrdered By: Clay Doty on 09-22-2024 Protein [Mass/Vol] 7.9 g/dL 6.4-8.2 [facility] White blood cell (WBC) count Ordered By: Hilton Doty on 09-22-2024 WBC (Bld) [#/Vol] 6.0 10*3/uL 4.4-11.0 [facility] MR/BMS.Yanni 09-08-2024 [facility] 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 Normal [facility]20[facility] -- WANDA REYNA ([id number]) 1980 F Date Time Provider Department 08/08/24 HILTON DOTY [facility] During your visit today, we recorded the following information about you: Gina Sparks LPN 08/08/2024 11:06 AM Signed Patient calling asking to have Vascular referral faxed to Dr Derek Barone [facility] at [phone]. Printed office visit note, consult, face sheet, insurance card copy,and faxed as requested. So patient can get appt set up. Allergies As of Date: 08/08/2024 Noted Allergy Reaction PENICILLINS 08/30/2013 16 - Unknown Date Reviewed: 08/01/2024 Reviewed by: Char Valencia LPN - Fully Assessed Reason for Visit: fax [facility] referral to [place] [Other] Prescriptions as of 08/08/2024 - buPROPion (WELLBUTRIN) 75 mg tablet Take 2 tablets in the AM and 2 tablet in the afternoon - phentermine-topiramate ER (QSYMIA) 11.25-69 mg 24 [...] Encounter Status:Closed by GINA SPARKS on 08/08/24 [facility] CHRISTINA REYNAA [place] ([id number]) 1980 F Date Time Provider Department 08/01/24 10:00 AM [facility] During your visit today, we recorded the following information about you: Temperature Pulse Respiration Blood pressure 97.6 degrees 64/minute 16/minute 130/70 Weight 89.4 kg Hilton Doty DO 08/02/2024 7:20 AM Signed CC: Wandalela Reyna is a 44 year old female who [...] of these veins surgically by specialist at [facility] where she works Inflammatory polyarthropathy, symptoms have been stable. Use of plaquenil as prescribed. Getting yearly eye examination Edema, use of chlorthalidone medication and potassium supplement Mood, admits to recently being stressed but feels she is in a better job position than previous. She is working with Psychiatrist office Dr. Oliveros at [facility]. She feels that her perimenopausal symptoms are bothering her. She is going to further discuss with REFUND SPECIALIST as well. PAST MEDICAL HISTORY Diagnosis Date [...] surgically, she wants to see surgeon at [facility] where she works - CONSULT TO VASCULAR SURGERY 2. Hypokalemia - ICD9: 276.8, ICD10: E87.6 Recheck labs as ordered Continue potassium supplement - COMPREHENSIVE METABOLIC PANEL - COMPLETE BLOOD COUNT AND DIFFERENTIAL - THYROID STIMULATING HORMONE 3. LIVIA (generalized anxiety disorder) - ICD9: 300.02, ICD10: F41.1 Increase dose of wellbutrin D/w REFUND SPECIALIST regarding perimenopause and how this is also affecting her mood and management of her mood. - BUPROPION HCL 75 MG TABLET 4. Situational depression - ICD9: 309.0, ICD10: F43.21 Increase dose of wellbutrin D/w REFUND SPECIALIST regarding perimenopause and how this is also affecting her mood and management of her mood. - BUPROPION HCL 75 MG TABLET 5. Obesity, Class I, BMI 30-34.9 - ICD9: 278.00, ICD10: E (more content not included)... Normal [facility] No Panel Informationon 02-07 IMPRESSION: No acute fracture or malalignment Burner Shaft: VICKY Transcribe Date/Time: Feb 08 2024 5:24P Dictated by : JAMMIE HOBBS MD This examination was interpreted and the report reviewed and electronically signed by: JAMMIE HOBBS MD on Feb 08 2024 5:28PM [facility] DIVISION OF RADIOLOGY Radiology Study observation (narrative) [facility] No Panel InformationOrdered By: [facility] Provider on 02-08-2024 [facility] XR Lumbar spine 3 Viewson * * [...] vertebral body osteophytes. DIVISION OF RADIOLOGY Provider, [facility] - 02/08/2024 * * *Final Report* * [...] IMPRESSION IMPRESSION: No acute fracture or malalignment Burner Shaft: VICKY Transcribe Date/Time: Feb 08 2024 5:24P Dictated by : JAMMIE HOBBS MD This examination was interpreted and the report reviewed and electronically signed by: JAMMIE HOBBS MD on Feb 08 2024 5:28PM [facility] XR Thoracic spine AP and Lat eral [...] vertebral body osteophytes. DIVISION OF RADIOLOGY Provider, [facility] - 02/08/2024 * * *Final Report* * [...] IMPRESSION IMPRESSION: No acute fracture or malalignment Burner Shaft: [facility] Transcribe Date/Time: Feb 08 2024 5:24P Dictated by : JAMMIE HOBBS MD This examination was interpreted and the report reviewed and electronically signed by: JAMMIE HOBBS MD on Feb 08 2024 5:28PM EST [facility] Laboratory - Microbiology an d Antimicrobial susceptibilityon 11-20-2023 SARS-CoV-2 (COVID-19) RNA FERNANDO+probe Ql (Unsp spec) Not detected No Panel Informationon 11-19 POC Nasal Swab Influenza A,B Not detected POC Nasal Swab RSV Not detected [facility] Basophil percentageOrdered B y: Priscilla Nieto on 09-29-2023 Hemoglobin (Bld) [Mass/Vol] 12.6 g/dL 12.0-15.0 WBC (Bld) [#/Vol] 3.3 10*3/uL 4.4-11.0 [facility] Determination of erythrocyte mean corpuscular volume (MCV)Ordered By: Priscillamerlin Nieto on 09-29-2023 MCV (RBC) [Entitic vol] 89.7 fL 81-99 Erythrocyte distribution wid th ratioOrdered By: Priscilla [facility] on 09-29-2023 Erythrocyte distribution width (RBC) [Ratio] 12.8 % 11.6-14.6 Erythrocyte distribution wid th standard deviationOrdered By: Priscilla [facility] on 09-29-2023 Erythrocyte distribution width (RBC) [Entitic vol] 41.9 fL 35.1-43.9 Hematocrit Auto (Bld) [Volum e fraction]Ordered By: Priscilla [facility] on 09-29-2023 Hematocrit (Bld) [Volume fraction] 38.5 % 37-47 Laboratory - Chemistry and C hemistry - challengeOrdered By: Priscilla Nieto on 09-29-2023 HCG ( test) Ql (U) Negative Comment on above: Very dilute urine sp ecimens, as indicated by a low specificgravity, may not contain associate sales representative levels of hCG. If is still suspected, a first morning urinespecimen should be collected 48 hours later and tested. Laboratory - Hematology and Cell countsOrdered By: Priscilla Nieto on 09-29-2023 MCH (RBC) [Entitic mass] 29.4 pg 27.0-32.0 MCHC (RBC) [Mass/Vol] 32.7 g/dL 32-36 [facility] Platelet mean volume (Bld) [Entitic vol] 10.4 fL 6.2-12.0 Platelets (Bld) [#/Vol] 131 10*3/uL 150-450 RBC Auto (Bld) [#/Vol]Ordere d By: Priscilla Nieto on 09-29-2023 RBC (Bld) [#/Vol] 4.29 10*6/uL 4.2-5.4 [facility] Laboratory - Microbiology an d Antimicrobial susceptibilityon 09-26-2023 SARS-CoV-2 (COVID-19) RNA FERNANDO+probe Ql (Unsp spec) Not detected No Panel Informationon 09-26 POC Nasal Swab Influenza A,B Detected POC Nasal Swab RSV Not detected [facility] Absolute lymphocyte countOrd ered By: LEO MÉNDEZ on 09-02-2023 Lymphocytes Auto (Unsp spec) [#/Vol] 2.69 10*3/uL 0.83-4.51 Automated lymphocyte count a s percentage of total leukocytesOrdered By: LEO MÉNDEZ on 09-02-2023 Lymphocytes/100 WBC Auto (Unsp spec) 31.1 % 19-41 Basophil percentageOrdered B y: LEO MÉNDEZ on 09-02-2023 Basophils/100 WBC (Bld) 0.6 % 0-1 Eosinophils/100 WBC (Bld) 1.2 % 0-5 Hemoglobin (Bld) [Mass/Vol] 14.7 g/dL 12.0-15.0 Monocytes/100 WBC (Bld) 8.9 % 0-10 Neutrophils (Bld) [#/Vol] 5.0 10*3/uL 2.0-7.7 Neutrophils/100 WBC (Bld) 58.0 % 47-70 WBC (Bld) [#/Vol] 8.7 10*3/uL 4.4-11.0 [facility] Determination of erythrocyte mean corpuscular volume (MCV)Ordered By: LEO MÉNDEZ on 09-02-2023 MCV (RBC) [Entitic vol] 91.0 fL 81-99 Erythrocyte distribution wid th ratioOrdered By: LEO MÉNDEZ on 09-02-2023 Erythrocyte distribution width (RBC) [Ratio] 13.1 % 11.6-14.6 Erythrocyte distribution wid th standard deviationOrdered By: LEO MÉNDEZ on 09-02-2023 Erythrocyte distribution width (RBC) [Entitic vol] 43.1 fL 35.1-43.9 Hematocrit Auto (Bld) [Volum e fraction]Ordered By: LEO MÉNDEZ on 09-02-2023 Hematocrit (Bld) [Volume fraction] 44.5 % 37-47 Immature granulocytes/100 WB C Auto (Bld)Ordered By: LEO MÉNDEZ on 09-02-2023 Immature granulocytes/100 WBC (Bld) 0.200 % 0.0-0.9 Comment on above: IG% - Immature Granu locytes (promyelocytes, myelocytes and metamyelocytes) > 1% indicates that a LEFT SHIFT is Present. Laboratory - Chemistry and C hemistry - challengeOrdered By: LEO MÉNDEZ on 09-02-2023 ALT [Catalytic activity/Vol] 28 U/L 13-56 Laboratory - Hematology and Cell countsOrdered By: LEO MÉNDEZ on 09-02-2023 MCH (RBC) [Entitic mass] 30.1 pg 27.0-32.0 MCHC (RBC) [Mass/Vol] 33.0 g/dL 32-36 [facility] Nucleated RBC/100 WBC (Bld) [Ratio] 0 % 0-5 Platelets (Bld) [#/Vol] 301 10*3/uL 150-450 No Panel InformationOrdered By: LEO MÉNDEZ on 09-02-2023 Estimated GFR (MDRD) Amer 87 mL/min >60 Comment on above: GFR Calc Estimated GFR (MDRD) Non-Af Amer 72 mL/min >60 Comment on above: Non- GFR Calc Platelet mean volume Lai-Ec ker (Bld) [Entitic vol]Ordered By: LEO MÉNDEZ on 09-02-2023 Platelet mean volume (Bld) [Entitic vol] 9.4 fL 6.2-12.0 RBC Auto (Bld) [#/Vol]Ordere d By: LEO MÉNDEZ on 09-02-2023 RBC (Bld) [#/Vol] 4.89 10*6/uL 4.2-5.4 [facility] Serum or plasma creatinine m easurement (mass/volume)Ordered By: LEO MÉNDEZ on 09-02-2023 Creatinine [Mass/Vol] 0.90 mg/dL 0.55-1.02 [facility] Comment on above: The validity of the calculated GFR & GFRAA in patients over 70 years has not been determined. Clinical correlation is essential. Thin prep Papanicolaou smear with manual screeningOrdered By: LEO MÉNDEZ on 09-02-2023 Thin prep Papanicolaou smear with manual screening 12 U/L 15-37 Cervical or vaginal specimen microscopic examination by liquid based cytology (reported as document)Ordered By: Nilda Loya on 08-12-2023 Cytology report Cyto stain.thin prep Doc (Cvx/Vag) Comment . Comment on above: Criteria met, see HP V Genotype results. Cervical or vagninal specime n microscopic examination by cytology stain (reported asOrdered By: Nilda Loya on 08-12-2023 Cytology report Cyto stain Doc (Cvx/Vag) Comment . Comment on above: The Pap smear is [...] E6+E7 mRNA FERNANDO+probe Ql (Cvx) Negative Negative Comment on above: Performed at: - [address] [id number] Director: Viktoriya Vargas MD, Phone: [phone] at: =G - [facility] [address], [place] [id number] Director: Viktoriya Vargas MD, Phone: [phone] Cervical specimen human cuong lloma virus (HPV) type 16 DNA detection by probe with sigOrdered By: Nilda Loya on 08-12-2023 HPV 16 DNA Probe+sig amp Ql (Cvx) Positive Negative Detection in cervical specim en of any of human papilloma virus (HPV) 16, 18, 31, 33,Ordered By: Nilda Loya on 08-12-2023 HPV 16+18+31+33+35+39+45+5 1+52+56+58+59+66+68 DNA Probe+sig amp Ql (Cvx) Positive Negative Comment on above: This nucleic acid am plification test detects fourteen high- risk HPV types (16,18,31,33,35,39,45,51,52,56,58,59,66,68)without differentiation. Laboratory - CytologyOrdered By: Nilda Loya on 08-12-2023 Case Specialist Cyto stain Nom (Cvx/Vag) [ID] Comment . Comment on above: Delphine Sauer, Cyto technologist (ASCP) Laboratory - Miscellaneous t estsOrdered By: Nilda Loya on 08-12-2023 Service comment (Unsp spec) [Interp] . . Thin prep Papanicolaou smear with manual screeningOrdered By: Nilda Loya on 08-12-2023 Thin prep Papanicolaou smear with manual screening Comment . Comment on above: NEGATIVE FOR INTRAEP ITHELIAL LESION OR MALIGNANCY. This liquid based Th inPrep(R) pap test was screened withthe use of an image guided system. Serum hepatitis B virus surf deejay antibody IgG detectionOrdered By: HEALTH ASSESSMENT on 05-12-2023 HBV surface IgG Ql (S) Non-Reactive Comment on above: Non Reactive: Incons istent with immunity less than <10 mIU/mL Reactive: Consistent with immunity greater than or equal to 10 mIU/mL No Panel InformationOrdered By: 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 on 02-25-2023 Hepatitis B Surface Antibody Non-Reactive Comment on above: Non Reactive: Incons istent with immunity less than <10 mIU/mL Reactive: Consistent with immunity greater than or equal to 10 mIU/mL Rubella IgG Antibody Reactive Nonreactive [facility] Comment on above: Antibody Results Int erpretation of Immune Status Non Reactive Presumed Non-Immune Equivocal Equivocal Reactive Presumed Immune Serum Varicella zoster virus IgG antibody assay by immunoassay (units/volume)Ordered By: [facility] on 02-25-2023 VZV IgG IA Qn (S) 1866 index Immune >165 [facility] Comment on above: Negative <135 Equivo chivo 135 - 165 Positive >165A positive result generally indicates exposure to thepathogen or administration of specific immunoglobulins,but it is not indication of active infection or stageof disease. Serum measles virus IgG anti body assay (units/volume)Ordered By: [facility] on 02-25-2023 MeV IgG Qn (S) > 300.0 AU/mL Immune >16.4 [facility] Comment on above: Negative <13.5 Equiv ocal 13.5 - 16.4 Positive >16.4Presence of antibodies to Rubeola is presumptive evidenceof immunity except when acute infection is suspected.Performed at: [facility] [id number] Director: Gabe Fry PhD, Phone: [phone] Serum mumps virus IgG antibo dy assay (units/volume)Ordered By: [facility] on 02-25-2023 MuV IgG Qn (S) 192.0 AU/mL Immune >10.9 Comment on above: Negative <9.0 Equivo chivo 9.0 - 10.9 Positive >10.9A positive result generally indicates past exposure toMumps virus or previous vaccination. CBC W Auto Differential pane l (Bld)on 08-28-2022 Basophils (Bld) [#/Vol] 0.04 10*3/uL <0.11 k/uL [facility] Basophils/100 WBC (Bld) 0.7 % [facility] Differential cell count method Nom (Bld) Auto [facility] Eosinophils (Bld) [#/Vol] 0.08 10*3/uL <0.46 k/uL [facility] Eosinophils/100 WBC (Bld) 1.4 % [facility] Erythrocyte distribution width (RBC) [Ratio] 13.0 % 11.5 - 15.0 % [facility] Hematocrit (Bld) [Volume fraction] 42.3 % 36.0 - 46.0 % [facility] Hemoglobin (Bld) [Mass/Vol] 14.2 g/dL 11.5 - 15.5 g/dL [facility] Immature granulocytes (Bld) [#/Vol] <0.10 k/uL [facility] Immature granulocytes/100 WBC (Bld) 0.0 % [facility] Lymphocytes (Bld) [#/Vol] 1.79 10*3/uL 1.00 - 4.00 k/uL [facility] Lymphocytes/100 WBC (Bld) 31.7 % [facility] MCH (RBC) [Entitic mass] 30.4 pg 26.0 - 34.0 pg [facility] MCHC (RBC) [Mass/Vol] 33.6 g/dL 30.5 - 36.0 g/dL [facility] MCV (RBC) [Entitic vol] 90.6 fL 80.0 - 100.0 fL [facility] Monocytes (Bld) [#/Vol] 0.43 10*3/uL <0.87 k/uL [facility] Monocytes/100 WBC (Bld) 7.6 % [facility] Neutrophils (Bld) [#/Vol] 3.31 10*3/uL 1.45 - 7.50 k/uL [facility] Neutrophils/100 WBC (Bld) 58.6 % [facility] Nucleated RBC (Bld) [#/Vol] <0.01 k/uL [facility] Nucleated RBC/100 WBC (Bld) [Ratio] 0.0 /100 WBC [facility] Platelet mean volume (Bld) [Entitic vol] 9.8 fL 9.0 - 12.7 fL [facility] Platelets (Bld) [#/Vol] 250 10*3/uL 150 - 400 k/uL [facility] RBC (Bld) [#/Vol] 4.67 10*6/uL 3.90 - 5.2 0 m/uL [facility] WBC (Bld) [#/Vol] 5.65 10*3/uL 3.70 - 11. 00 k/uL [facility] ESR Westergren method (Bld) [Velocity]on 08-28-2022 ESR (Bld) [Velocity] 12 mm/h 0 - 20 mm/hr [facility] Vital Signs Date Time Vital Sign Value Performing Clinician Facility 05-18-2025 11:35-0400 Body temperature 97.8 [degF] Dr. Hilton Doty DO Work Phone: 0(291)517-229310 [place] [address] 05-18-2025 11:35-0400 Body weight 88.[address] Hilton Doty DO Work Phone: 9(244)776-858310 [place] [address] 05-18-2025 11:35-0400 Diastolic blood pressure 82 mm[Hg] Dr. Hilton Doty DO Work Phone: 6(045)969-903910 [place] [address] 05-18-2025 11:35-0400 Heart rate 67 /min Dr. Hilton Doty DO Work Phone: 4(772)614-920410 [place] [address] 05-18-2025 11:35-0400 Respiratory rate 16 /min Dr. Hilton Doty DO Work Phone: 9(806)699-223710 [place] [address] 05-18-2025 11:35-0400 SaO2% (BldA) [Mass fraction] 98 % Dr. Hilton Doty DO Work Phone: 0(332)229-016810 [place] [address] 05-18-2025 11:35-0400 Systolic blood pressure 136 mm[Hg] Dr. Hilton Doty DO Work Phone: 1(222)870-401210 [place] [address] 05-04-2025 11:51-0400 Body height 167.[address] Hilton Doty DO Work Phone: 6(690)271-719810 [place] [address] 05-04-2025 11:51-0400 Body weight 84.[address] Hilton Doty DO Work Phone: 0(625)316-648410 [place] [address] 05-03-2025 12:57-0400 Body mass index (BMI) [Ratio] 29.9 kg/m2 Dr. Hilton Doty DO Work Phone: 9(594)719-703110 [place] [address] 03-23-2025 08:39-0400 Body temperature 98.2 [degF] Dr. Hilton Doty DO Work Phone: 4(546)935-420010 [place] [address] 03-23-2025 08:39-0400 Body weight 87.[address] Hilton Doty DO Work Phone: 03-23-2025 08:39-0400 Diastolic blood pressure 72 mm[Hg] Dr. Hilton Doty DO Work Phone: 03-23-2025 08:39-0400 Heart rate 69 /min Dr. Hilton Doty DO Work Phone: 03-23-2025 08:39-0400 Respiratory rate 18 /min Dr. Hilton Doty DO Work Phone: 03-23-2025 08:39-0400 SaO2% (BldA) [Mass fraction] 100 % Dr. Hilton Doty DO Work Phone: 03-23-2025 08:39-0400 Systolic blood pressure 112 mm[Hg] Dr. Hilton Doty DO Work Phone: 03-13-2025 15:09-0400 Body mass index (BMI) [Ratio] 30.23 kg/m2 Hilton Doty DO Work Phone: [facility] 03-13-2025 15:09-0400 Body temperature 97.81 [degF] Hilton Doty DO Work Phone: [facility] 03-13-2025 15:09-0400 Body weight 87.54 kg Hilton Doty DO Work Phone: [facility] 03-13-2025 15:09-0400 Diastolic blood pressure 80 mm[Hg] Hilton Doty DO Work Phone: [facility] 03-13-2025 15:09-0400 Heart rate 60 /min Hilton Doty DO Work Phone: [facility] 03-13-2025 15:09-0400 Respiratory rate 12 /min Hilton Vásquezon DO Work Phone: [facility] 03-13-2025 15:09-0400 Systolic blood pressure 120 mm[Hg] Hilton Doty DO Work Phone: [facility] 02-06-2025 13:05-0400 Body temperature 98.4 [degF] Dr. Hilton Doty DO Work Phone: 02-06-2025 13:05-0400 Body weight 85.[address] Hilton Doty DO Work Phone: 02-06-2025 13:05-0400 Diastolic blood pressure 80 mm[Hg] Dr. Hilton Doty DO Work Phone: 02-06-2025 13:05-0400 Heart rate 71 /min Dr. Hilton Doty DO Work Phone: 02-06-2025 13:05-0400 Respiratory rate 18 /min Dr. Hilton Doty DO Work Phone: 02-06-2025 13:05-0400 SaO2% (BldA) [Mass fraction] 100 % Dr. Hilton Doty DO Work Phone: 02-06-2025 13:05-0400 Systolic blood pressure 121 mm[Hg] Dr. Hilton Doty DO Work Phone: 01-14-2025 10:49-0400 Body mass index (BMI) [Ratio] 29.6 kg/m2 Hilton Doty DO Work Phone: [facility] 01-14-2025 10:49-0400 Body temperature 97 [degF] Hilton Doty DO Work Phone: [facility] 01-14-2025 10:49-0400 Body weight 85.73 kg Hilton Doty DO Work Phone: [facility] 01-14-2025 10:49-0400 Diastolic blood pressure 60 mm[Hg] Hilton Doty DO Work Phone: [facility] 01-14-2025 10:49-0400 Heart rate 80 /min Hilton Doty DO Work Phone: [facility] 01-14-2025 10:49-0400 Respiratory rate 16 /min Hilton Doty DO Work Phone: [facility] 01-14-2025 10:49-0400 Systolic blood pressure 120 mm[Hg] Hilton Doty DO Work Phone: [facility] 01-13-2025 08:07-0400 Body temperature 98.2 [degF] Dr. Hilton Doty DO Work Phone: 01-13-2025 08:07-0400 Body weight 87.[address] Hilton Doty DO Work Phone: 01-13-2025 08:07-0400 Diastolic blood pressure 71 mm[Hg] Dr. Hilton Doty DO Work Phone: 01-13-2025 08:07-0400 Heart rate 65 /min Dr. Hilton Doty DO Work Phone: 01-13-2025 08:07-0400 Respiratory rate 16 /min Dr. Hilton Doty DO Work Phone: 01-13-2025 08:07-0400 SaO2% (BldA) [Mass fraction] 100 % Dr. Hilton Doty DO Work Phone: 01-13-2025 08:07-0400 Systolic blood pressure 122 mm[Hg] Dr. Hilton Doty DO Work Phone: 01-10-2025 09:01-0400 Body height 167.[address] Hilton Doty DO Work Phone: 01-10-2025 09:01-0400 Body weight 86.[address] Hilton Doty DO Work Phone: 01-09-2025 08:47-0400 Body mass index (BMI) [Ratio] 30.7 kg/m2 Dr. Hilton Doty DO Work Phone: 01-02-2025 09:02-0400 Body height 167.[address] Hilton Doty DO Work Phone: 4(728)271-959210 [place] [address] 12-19-2024 15:59-0400 Body height 167.[address] Hilton Doty DO Work Phone: 4(816)657-296910 [place] [address] 12-19-2024 15:59-0400 Body mass index (BMI) [Ratio] 30.7 kg/m2 Dr. Hilton Doty DO Work Phone: 7(256)517-581110 [place] [address] 12-19-2024 15:59-0400 Body temperature 98.7 [degF] Dr. Hilton Doty DO Work Phone: 4(567)265-481010 [place] [address] 12-19-2024 15:59-0400 Body weight 86.[address] Hilton Doty DO Work Phone: 0(749)551-206810 [place] [address] 12-19-2024 15:59-0400 Diastolic blood pressure 77 mm[Hg] Dr. Hilton Doty DO Work Phone: 0(820)492-774610 [place] [address] 12-19-2024 15:59-0400 Heart rate 63 /min Dr. Hilton Doty DO Work Phone: 7(451)255-117910 [place] [address] 12-19-2024 15:59-0400 Respiratory rate 14 /min Dr. Hilton Doty DO Work Phone: 6(875)873-958710 [place] [address] 12-19-2024 15:59-0400 SaO2% (BldA) [Mass fraction] 100 % Dr. Hilton Doty DO Work Phone: 8(713)966-269510 [place] [address] 12-19-2024 15:59-0400 Systolic blood pressure 120 mm[Hg] Dr. Hilton Doty DO Work Phone: 7(329)860-732310 [place] [address] 12-12-2024 09:31-0400 Body height 167.[address] Hilton Doty DO Work Phone: 9(604)776-973210 [place] [address] 12-12-2024 09:30-0400 Body mass index (BMI) [Ratio] 30.5 kg/m2 Dr. Hilton Doty DO Work Phone: 5(114)713-494510 [place] [address] 12-12-2024 09:30-0400 Body weight 85.[address] Hilton Doty DO Work Phone: 12-12-2024 09:30-0400 Diastolic blood pressure 80 mm[Hg] Dr. Hilton Doty DO Work Phone: 12-12-2024 09:30-0400 Systolic blood pressure 125 mm[Hg] Dr. Hilton Doty DO Work Phone: 11-16-2024 18:51-0400 Body mass index (BMI) [Ratio] 29.82 kg/m2 Hilton Doty DO Work Phone: [facility] 11-16-2024 18:51-0400 Body weight 86.36 kg Hilton Doty DO Work Phone: 0(807)841-262930 [place] [address] 11-16-2024 18:51-0400 Diastolic blood pressure 89 mm[Hg] Hilton Doty DO Work Phone: [facility] 11-16-2024 18:51-0400 Heart rate 60 /min Hilton Doty DO Work Phone: 1(160)397-574530 [place] [address] 11-16-2024 18:51-0400 Respiratory rate 12 /min Hilton Doty DO Work Phone: [facility] 11-16-2024 18:51-0400 Systolic blood pressure 127 mm[Hg] Hilton Doty DO Work Phone: [facility] 11-02-2024 11:44-0400 Body temperature 97.2 [degF] Dr. Hilton Doty DO Work Phone: 11-02-2024 11:44-0400 Body weight 87.[address] Hilton Doty DO Work Phone: 11-02-2024 11:44-0400 Diastolic blood pressure 75 mm[Hg] Dr. Hilton Doty DO Work Phone: 11-02-2024 11:44-0400 Heart rate 70 /min Dr. Hilton Doty DO Work Phone: 11-02-2024 11:44-0400 Respiratory rate 16 /min Dr. Hilton Doty DO Work Phone: 11-02-2024 11:44-0400 SaO2% (BldA) [Mass fraction] 100 % Dr. Hilotn Doty DO Work Phone: 11-02-2024 11:44-0400 Systolic blood pressure 135 mm[Hg] Dr. Hilton Doty DO Work Phone: 10-26-2024 18:03-0400 Body mass index (BMI) [Ratio] 29.76 kg/m2 Hilton Doty DO Work Phone: [facility] 10-26-2024 18:03-0400 Body temperature 97.39 [degF] Hilton Doty DO Work Phone: [facility] 10-26-2024 18:03-0400 Body weight 86.18 kg Hilton Doty DO Work Phone: [facility] 10-26-2024 18:03-0400 Diastolic blood pressure 80 mm[Hg] Hilton Vásquezon DO Work Phone: [facility] 10-26-2024 18:03-0400 Heart rate 76 /min Hilton Doty DO Work Phone: [facility] 10-26-2024 18:03-0400 Respiratory rate 16 /min Hilton Doty DO Work Phone: [facility] 10-26-2024 18:03-0400 Systolic blood pressure 120 mm[Hg] Hilton Doty DO Work Phone: [facility] 10-14-2024 13:23-0400 Body mass index (BMI) [Ratio] 29.35 kg/m2 Rajinder Hinton APRN.BUNCH TRIMMER MOLD Work Phone: [facility] 10-14-2024 13:23-0400 Body weight 85 kg Rajinder Hinton APRN.BUNCH TRIMMER MOLD Work Phone: [facility] 10-14-2024 13:23-0400 Diastolic blood pressure 71 mm[Hg] Rajinder Hinton LINK WIRE FABRIC MACHINE TENDER.[employer]CH TRIMMER [employer]OLD Work Phone: [facility] 10-14-2024 13:23-0400 Heart rate 81 /min Rajinder Hinton LINK WIRE FABRIC MACHINE TENDER.BUNCH TRIMMER MOLD Work Phone: [facility] 10-14-2024 13:23-0400 SaO2% (BldA) [Mass fraction] 100 % Rajinder Hinton LINK WIRE FABRIC MACHINE TENDER.BUNCH TRIMMER MOLD Work Phone: [facility] 10-14-2024 13:23-0400 Systolic blood pressure 102 mm[Hg] Rajinder Hinton LINK WIRE FABRIC MACHINE TENDER.BUNCH TRIMMER MOLD Work Phone: [facility] 10-13-2024 22:35-0400 Body temperature 97.8 [degF] Dr. Hilton Doty DO Work Phone: 10-13-2024 22:35-0400 Diastolic blood pressure 68 mm[Hg] Dr. Hilton Doty DO Work Phone: 10-13-2024 22:35-0400 Heart rate 71 /min Dr. Hilton Doty DO Work Phone: 10-13-2024 22:35-0400 Respiratory rate 16 /min Dr. Hilton Doty DO Work Phone: 10-13-2024 22:35-0400 SaO2% (BldA) [Mass fraction] 99 % Dr. Hilton Doty DO Work Phone: 10-13-2024 22:35-0400 Systolic blood pressure 113 mm[Hg] Dr. Hilton Doty DO Work Phone: 10-13-2024 17:15-0400 Body height 167.[address] Hilton Doty DO Work Phone: 10-13-2024 17:15-0400 Body mass index (BMI) [Ratio] 30.2 kg/m2 Dr. Hilton Doty DO Work Phone: 9(751)166-439565 [place] [address] 10-13-2024 17:15-0400 Body weight 84.[address] Hilton Doty DO Work Phone: 3(425)299-690710 [place] [address] 09-08-2024 11:19-0500 Body temperature 98 [degF] Dr. Hilton Doty DO Work Phone: 3(911)660-825310 [place] [address] 09-08-2024 11:19-0500 Body weight 86.[address] Hilton Doty DO Work Phone: 1(495)170-249610 [place] [address] 09-08-2024 11:19-0500 Diastolic blood pressure 91 mm[Hg] Dr. Hilton Doty DO Work Phone: 3(153)734-036410 [place] [address] 09-08-2024 11:19-0500 Heart rate 71 /min Dr. Hilton Doty DO Work Phone: 5(234)524-538210 [place] [address] 09-08-2024 11:19-0500 Respiratory rate 16 /min Dr. Hilton Doty DO Work Phone: 5(568)736-333810 [place] [address] 09-08-2024 11:19-0500 SaO2% (BldA) [Mass fraction] 99 % Dr. Hilton Doty DO Work Phone: 3(692)613-823210 [place] [address] 09-08-2024 11:19-0500 Systolic blood pressure 136 mm[Hg] Dr. Hilton Doty DO Work Phone: 8(784)129-999510 [place] [address] 08-01-2024 10:12-0500 Body mass index (BMI) [Ratio] 30.85 kg/m2 Hilton Doty DO Work Phone: 8(266)704-422630 [place] [address] 08-01-2024 10:12-0500 Body temperature 97.59 [degF] Hilton Doty DO Work Phone: 1(066)354-636730 [place] [address] 08-01-2024 10:12-0500 Body weight 89.36 kg Hilton Doty DO Work Phone: 0(474)124-832030 [place] [address] 08-01-2024 10:12-0500 Diastolic blood pressure 70 mm[Hg] Hilton Doty DO Work Phone: [facility] 08-01-2024 10:12-0500 Heart rate 64 /min Hilton Doty DO Work Phone: [facility] 08-01-2024 10:12-0500 Respiratory rate 16 /min Hilton Doty DO Work Phone: [facility] 08-01-2024 10:12-0500 Systolic blood pressure 130 mm[Hg] Hilton Doty DO Work Phone: [facility] 04-25-2024 10:16-0400 Body mass index (BMI) [Ratio] 29.76 kg/m2 Hilton Doty DO Work Phone: [facility] 04-25-2024 10:16-0400 Body temperature 97 [degF] Hilton Doty DO Work Phone: [facility] 04-25-2024 10:16-0400 Body weight 86.18 kg Hilton Doty DO Work Phone: [facility] 04-25-2024 10:16-0400 Diastolic blood pressure 80 mm[Hg] Hilton Doty DO Work Phone: [facility] 04-25-2024 10:16-0400 Heart rate 64 /min Hilton Doty DO Work Phone: [facility] 04-25-2024 10:16-0400 Respiratory rate 12 /min Hilton Doty DO Work Phone: [facility] 04-25-2024 10:16-0400 Systolic blood pressure 120 mm[Hg] Hilton Doty DO Work Phone: [facility] 02-08-2024 15:59-0400 Body mass index (BMI) [Ratio] 31.01 kg/m2 Doris Mendez APRN.COOK ROOM SUPERVISOR Work Phone: [facility] 02-08-2024 15:59-0400 Body weight 89.81 kg Doris Mendez APRN.COOK ROOM SUPERVISOR Work Phone: [facility] 02-08-2024 15:59-0400 Diastolic blood pressure 64 mm[Hg] Doris Suppan LINK WIRE FABRIC MACHINE TENDER.COOK ROOM SUPERVISOR Work Phone: [facility] 02-08-2024 15:59-0400 Heart rate 64 /min Doris Suppan LINK WIRE FABRIC MACHINE TENDER.COOK ROOM SUPERVISOR Work Phone: [facility] 02-08-2024 15:59-0400 Respiratory rate 16 /min Doris Suppan LINK WIRE FABRIC MACHINE TENDER.COOK ROOM SUPERVISOR Work Phone: [facility] 02-08-2024 15:59-0400 SaO2% (BldA) [Mass fraction] 99 % Doirs Suppan LINK WIRE FABRIC MACHINE TENDER.COOK ROOM SUPERVISOR Work Phone: [facility] 02-08-2024 15:59-0400 Systolic blood pressure 108 mm[Hg] Doris Suppan LINK WIRE FABRIC MACHINE TENDER.COOK ROOM SUPERVISOR Work Phone: [facility] 01-20-2024 19:11-0400 Body mass index (BMI) [Ratio] 30.07 kg/m2 Hilton Doty DO Work Phone: [facility] 01-20-2024 19:11-0400 Body temperature 97 [degF] Hilton Doty DO Work Phone: [facility] 01-20-2024 19:11-0400 Body weight 87.09 kg Hilton Doty DO Work Phone: [facility] 01-20-2024 19:11-0400 Diastolic blood pressure 60 mm[Hg] Hilton Doty DO Work Phone: [facility] 01-20-2024 19:11-0400 Heart rate 60 /min Hilton Doty DO Work Phone: [facility] 01-20-2024 19:11-0400 Respiratory rate 16 /min Hilton Doty DO Work Phone: [facility] 01-20-2024 19:11-0400 Systolic blood pressure 100 mm[Hg] Hilton Doty DO Work Phone: [facility] 11-25-2023 16:07-0400 Body height 170.[address] Hilton Doty Work Phone: 11-25-2023 16:07-0400 Body weight 87.[address] Hilton Doty Work Phone: 1(676)906-914265 [place] [address] 11-20-2023 14:46-0400 Body mass index (BMI) [Ratio] 31.3 kg/m2 Dr. Hilton Doty Work Phone: 5(266)333-745565 [place] [address] 11-20-2023 14:46-0400 Body temperature 97.3 [degF] Dr. Hilton Doty Work Phone: 6(611)393-906965 [place] [address] 11-20-2023 14:46-0400 Body weight 87.[address] Hilton Doty Work Phone: 2(920)617-592810 [place] [address] 11-20-2023 14:46-0400 Heart rate 77 /min Dr. Hilton Doty Work Phone: 0(829)790-882110 [place] [address] 11-20-2023 14:46-0400 Respiratory rate 16 /min Dr. Hilton Doty Work Phone: 1(002)813-262565 [place] [address] 11-20-2023 14:46-0400 SaO2% (BldA) [Mass fraction] 99 % Dr. Hilton Doty Work Phone: 6(090)482-685865 [place] [address] 10-21-2023 18:33-0400 Body temperature 97 [degF] Hilton Doty DO Work Phone: [facility] 10-21-2023 18:33-0400 Body weight 89.81 kg Hilton Vásquezon DO Work Phone: [facility] 10-21-2023 18:33-0400 Diastolic blood pressure 80 mm[Hg] Hilton Doty DO Work Phone: [facility] 10-21-2023 18:33-0400 Heart rate 80 /min Hilton Doty DO Work Phone: [facility] 10-21-2023 18:33-0400 Respiratory rate 16 /min Hilton Doty DO Work Phone: [facility] 10-21-2023 18:33-0400 Systolic blood pressure 120 mm[Hg] Hilton Doty DO Work Phone: [facility] 10-14-2023 10:16-0400 Body mass index (BMI) [Ratio] 31.1 kg/m2 Dr. Hilton Doty Work Phone: 10-14-2023 10:16-0400 Body weight 90.[address] Hilton Doty Work Phone: 8(006)051-506110 [place] [address] 10-14-2023 10:16-0400 Diastolic blood pressure 77 mm[Hg] Dr. Hilton Doty Work Phone: 6(271)067-378310 [place] [address] 10-14-2023 10:16-0400 Systolic blood pressure 121 mm[Hg] Dr. Hilton Doty Work Phone: 4(785)357-987610 [place] [address] 09-29-2023 12:03-0500 Body temperature 97.7 [degF] Dr. Hilton Doty Work Phone: 4(653)756-135310 [place] [address] 09-29-2023 12:03-0500 Diastolic blood pressure 72 mm[Hg] Dr. Hilton Doty Work Phone: 6(120)370-670310 [place] [address] 09-29-2023 12:03-0500 Heart rate 56 /min Dr. Hilton Doty Work Phone: 9(643)506-594910 [place] [address] 09-29-2023 12:03-0500 Respiratory rate 16 /min Dr. Hilton Doty Work Phone: 0(018)035-877210 [place] [address] 09-29-2023 12:03-0500 SaO2% (BldA) [Mass fraction] 97 % Dr. Hilton Doty Work Phone: 6(724)942-334410 [place] [address] 09-29-2023 12:03-0500 Systolic blood pressure 102 mm[Hg] Dr. Hilton Doty Work Phone: 4(282)244-173710 [place] [address] 09-29-2023 08:42-0500 Body mass index (BMI) [Ratio] 31.6 kg/m2 Dr. Hilton Doty Work Phone: 4(114)978-190610 [place] [address] 09-29-2023 08:42-0500 Body weight 88.[address] Hilton Doty Work Phone: 5(983)320-919210 [place] [address] 09-26-2023 13:20-0500 Body mass index (BMI) [Ratio] 30.2 kg/m2 Dr. Hilton Doty Work Phone: 5(031)418-380710 [place] [address] 09-26-2023 13:20-0500 Body temperature 98.2 [degF] Dr. Hilton Doty Work Phone: 9(431)388-790910 [place] [address] 09-26-2023 13:20-0500 Body weight 87.[address] Hilton Doty Work Phone: 7(897)930-852010 [place] [address] 09-26-2023 13:20-0500 Diastolic blood pressure 62 mm[Hg] Dr. Hilton Doty Work Phone: 7(850)685-535210 [place] [address] 09-26-2023 13:20-0500 Heart rate 82 /min Dr. Hilton Doty Work Phone: 8(617)537-473710 [place] [address] 09-26-2023 13:20-0500 Respiratory rate 16 /min Dr. Hilton Doty Work Phone: 1(811)947-644910 [place] [address] 09-26-2023 13:20-0500 SaO2% (BldA) [Mass fraction] 97 % Dr. Hilton Doty Work Phone: 3(854)825-462110 [place] [address] 09-26-2023 13:20-0500 Systolic blood pressure 100 mm[Hg] Dr. Hilton Doty Work Phone: 3(170)328-540510 [place] [address] 09-24-2023 08:32-0500 Body mass index (BMI) [Ratio] 30.5 kg/m2 Dr. Hilton Doty Work Phone: 5(563)414-388510 [place] [address] 09-24-2023 08:32-0500 Body weight 88.[address] Hilton Doty Work Phone: 1(536)587-019010 [place] [address] 09-24-2023 08:32-0500 Diastolic blood pressure 71 mm[Hg] Dr. Hilton Doty Work Phone: 4(779)976-132210 [place] [address] 09-24-2023 08:32-0500 Systolic blood pressure 114 mm[Hg] Dr. Hilton Doty Work Phone: 0(033)766-037210 [place] [address] 09-14-2023 13:33-0500 Body height 170.[address] Hilton Doty Work Phone: 1(624)788-867510 [place] [address] 09-14-2023 13:33-0500 Body mass index (BMI) [Ratio] 31.2 kg/m2 Dr. Hilton Doty Work Phone: 0(282)981-681810 [place] [address] 09-14-2023 13:33-0500 Body weight 90.[address] Hilton Doty Work Phone: 7(693)217-643910 [place] [address] 09-14-2023 13:33-0500 Diastolic blood pressure 85 mm[Hg] Dr. Hilton Doty Work Phone: 6(824)099-695610 [place] [address] 09-14-2023 13:33-0500 Systolic blood pressure 131 mm[Hg] Dr. Hilton Doty Work Phone: 5(530)535-986610 [place] [address] 08-12-2023 13:06-0500 Body height 170.[address] Hilton Doty Work Phone: 5(990)631-857710 [place] [address] 08-12-2023 13:06-0500 Body mass index (BMI) [Ratio] 31 kg/m2 Dr. Hilton Doty Work Phone: 1(770)991-902910 [place] [address] 08-12-2023 13:06-0500 Body weight 89.[address] Hilton Doty Work Phone: 9(707)580-938810 [place] [address] 08-12-2023 13:06-0500 Diastolic blood pressure 70 mm[Hg] Dr. Hilton Doty Work Phone: 7(581)882-958410 [place] [address] 08-12-2023 13:06-0500 Systolic blood pressure 130 mm[Hg] Dr. Hilton Doty Work Phone: 8(501)703-618910 [place] [address] 06-11-2023 11:53-0500 Body height 170.[address] Hilton Doty Work Phone: [phone] [place] [address] 06-11-2023 11:37-0500 Body mass index (BMI) [Ratio] 30.9 kg/m2 Dr. Hilton Doty Work Phone: 06-11-2023 11:37-0500 Body weight 89.[address] Hilton Doty Work Phone: 06-11-2023 11:37-0500 Diastolic blood pressure 74 mm[Hg] Dr. Hilton Doty Work Phone: 06-11-2023 11:37-0500 Systolic blood pressure 122 mm[Hg] Dr. Hilton Doty Work Phone: 06-03-2023 17:55-0400 Body temperature 98.4 [degF] Hilton Doty DO Work Phone: [facility] 06-03-2023 17:55-0400 Body weight 90.72 kg Hilton Doty DO Work Phone: [facility] 06-03-2023 17:55-0400 Diastolic blood pressure 80 mm[Hg] Hilton Doty DO Work Phone: [facility] 06-03-2023 17:55-0400 Heart rate 64 /min Hilton Doty DO Work Phone: [facility] 06-03-2023 17:55-0400 Respiratory rate 16 /min Hilton Doty DO Work Phone: [facility] 06-03-2023 17:55-0400 Systolic blood pressure 120 mm[Hg] Hilton Doty DO Work Phone: [facility] 03-02-2023 14:20-0400 Body temperature 97.9 [degF] Hilton Doty DO Work Phone: [facility] 03-02-2023 14:20-0400 Body weight 88.91 kg Hilton Doty DO Work Phone: [facility] 03-02-2023 14:20-0400 Diastolic blood pressure 70 mm[Hg] Hilton Doty DO Work Phone: [facility] 03-02-2023 14:20-0400 Heart rate 76 /min Hilton Doty DO Work Phone: [facility] 03-02-2023 14:20-0400 Respiratory rate 12 /min Hilton Doty DO Work Phone: [facility] 03-02-2023 14:20-0400 Systolic blood pressure 120 mm[Hg] Hilton Doty DO Work Phone: [facility] 11-24-2022 14:00-0400 Body temperature 98.01 [degF] Hilton Doty DO Work Phone: [facility] 11-24-2022 14:00-0400 Body weight 90.27 kg Hilton Doty DO Work Phone: [facility] 11-24-2022 14:00-0400 Diastolic blood pressure 74 mm[Hg] Hilton Doty DO Work Phone: [facility] 11-24-2022 14:00-0400 Heart rate 64 /min Hilton Doty DO Work Phone: [facility] 11-24-2022 14:00-0400 Respiratory rate 16 /min Hilton Doty DO Work Phone: [facility] 11-24-2022 14:00-0400 Systolic blood pressure 130 mm[Hg] Hilton Doty DO Work Phone: [facility] 10-24-2022 11:05-0400 Body temperature 97 [degF] Hilton Doty DO Work Phone: [facility] 10-24-2022 11:05-0400 Body weight 88.91 kg Hilton Doty DO Work Phone: [facility] 10-24-2022 11:05-0400 Diastolic blood pressure 80 mm[Hg] Hilton Doty DO Work Phone: [facility] 10-24-2022 11:05-0400 Heart rate 72 /min Hilton Doty DO Work Phone: [facility] 10-24-2022 11:05-0400 Respiratory rate 16 /min Hilton Doty DO Work Phone: [facility] 10-24-2022 11:05-0400 Systolic blood pressure 136 mm[Hg] Hilton Doty DO Work Phone: [facility] 08-28-2022 11:15-0500 Body height 170.2 cm Priscilla Junior MD Work Phone: [facility] 08-28-2022 11:15-0500 Body temperature 97.59 [degF] Priscilla Junior MD Work Phone: [facility] 08-28-2022 11:15-0500 Body weight 88 kg Priscilla Junior MD Work Phone: [facility] 08-28-2022 11:15-0500 Diastolic blood pressure 75 mm[Hg] Priscilla Junior MD Work Phone: [facility] 08-28-2022 11:15-0500 Heart rate 61 /min Priscilla Junior MD Work Phone: [facility] 08-28-2022 11:15-0500 Systolic blood pressure 118 mm[Hg] Priscilla Junior MD Work Phone: [facility] 07-23-2022 18:41-0500 Body temperature 97.59 [degF] Hilton Doty DO Work Phone: [facility] 07-23-2022 18:41-0500 Body weight 87.54 kg Hilton Doty DO Work Phone: [facility] 07-23-2022 18:41-0500 Diastolic blood pressure 80 mm[Hg] Hilton Doty DO Work Phone: [facility] 07-23-2022 18:41-0500 Heart rate 76 /min Hilton Doty DO Work Phone: [facility] 07-23-2022 18:41-0500 Respiratory rate 12 /min Hilton Doty DO Work Phone: [facility] 07-23-2022 18:41-0500 Systolic blood pressure 120 mm[Hg] Hilton Doty DO Work Phone: [facility] 04-23-2022 17:44-0400 Body temperature 97.3 [degF] Hilton Doty DO Work Phone: [facility] 04-23-2022 17:44-0400 Body weight 86.64 kg Hilton Doty DO Work Phone: [facility] 04-23-2022 17:44-0400 Diastolic blood pressure 70 mm[Hg] Hilton Doty DO Work Phone: [facility] 04-23-2022 17:44-0400 Heart rate 76 /min Hilton Doty DO Work Phone: [facility] 04-23-2022 17:44-0400 Respiratory rate 16 /min Hilton Doty DO Work Phone: [facility] 04-23-2022 17:44-0400 Systolic blood pressure 120 mm[Hg] Hilton Doty DO Work Phone: [facility] 02-12-2022 16:06-0400 Body height 168.9 cm Delphine Floyd APRN.BUNCH TRIMMER MOLD Work Phone: [facility] 02-12-2022 16:06-0400 Body weight 89.72 kg Delphine Floyd APRN.BUNCH TRIMMER MOLD Work Phone: [facility] 02-12-2022 16:06-0400 Diastolic blood pressure 70 mm[Hg] Delphine Floyd APRN.B[employer]CH TRIMMER MOLD Work Phone: [facility] 02-12-2022 16:06-0400 Systolic blood pressure 112 mm[Hg] Delphine Floyd APRN.BUNCH TRIMMER MOLD Work Phone: [facility] 01-20-2022 08:50-0400 Body temperature 97.7 [degF] Hilton Doty DO Work Phone: [facility] 01-20-2022 08:50-0400 Body weight 89.81 kg Hilton Doty DO Work Phone: [facility] 06-20-2022 08:50-0400 Diastolic blood pressure 70 mm[Hg] Hilton Villatororison DO Work Phone: [facility] 01-20-2022 08:50-0400 Heart rate 80 /min Hilton Doty DO Work Phone: [facility] 01-20-2022 08:50-0400 Respiratory rate 16 /min Hilton Doty DO Work Phone: [facility] 01-20-2022 08:50-0400 Systolic blood pressure 110 mm[Hg] Hilton Villatororison DO Work Phone: [facility] Encounters Encounter Date Encounter Type Care Provider Facility Start: 05-18-2025 End: 05-18-2025 Patient encounter procedure Laura CEE -[facility] Work Phone: Start: 05-18-2025 End: 05-18-2025 ambulatory Hilton Doty Facility:[facility] Start: 05-08-2025 Non-patient / Non-visit Dr. Derek bosch MD -[facility] Start: 05-08-2025 End: 05-08-[address] Derek Barone MD -Cardiovascular Services Work Phone: Start: 05-08-2025 End: 05-08-2025 ambulatory [facility] Facility: Start: 05-04-2025 ambulatory [facility] Facility:[facility] Start: 05-04-2025 Non-patient / Non-visit Dr. Derek bosch MD -[facility] Start: 05-04-2025 End: 05-04-2025 Admission to same day surgery center Dr. Derek Barone MD -Traffic Or System Dispatcher/Special Procedures Work Phone: Start: 05-04-2025 End: 05-04-[address] Hilton Doty DO Work Phone: -Traffic Or System Dispatcher/Special Procedures Start: 03-29-2025 End: 03-29-[address] Hilton Doty DO Work Phone: -Laboratory Start: 03-29-2025 End: 03-29-2025 Patient encounter procedure Laura CEE -Laboratory Work Phone: Start: 03-29-2025 End: 03-29-2025 ambulatory Hilton Doty Facility: Start: 03-23-2025 End: 03-23-2025 Patient encounter procedure Laura CEE -[facility] Work Phone: Start: 03-23-2025 End: 03-23-[address] Hilton Doty DO Work Phone: -[facility] Start: 03-19-2025 End: 03-20-2025 Refill Lisa Doll APRN.BUNCH TRIMMER MOLD Work Phone: [facility] [place] Comment on above: Refill Request Start: 03-15-2025 End: 03-17-2025 ambulatory Hilton Doty DO Work Phone: [facility] [place] Comment on above: Talking with Abisai Start: 03-15-2025 End: 03-31-2025 Telephone encounter Hilton Doty DO Work Phone: [facility] [place] Comment on above: Insurance Authorizat ion Patient Question (Re garding conversation with specialist Dr. Barone's office at [facility]) Start: 03-13-2025 End: 03-13-[address] Hilton Doty DO Work Phone: -Laboratory Start: 03-13-2025 End: 03-13-[address] Hilton Doty DO -Laboratory Work Phone: Start: 03-13-2025 End: 03-13-2025 Patient encounter procedure Hilton Doty DO Work Phone: [facility] [place] Comment on above: Leg pain, bilateral (Primary Dx); Varicose veins of both legs with edema; Inflammatory polyarthropathy (HCC); Inflammatory arthritis; Left leg pain; Leg heaviness; Obesity, Class I, BMI 30-34.9; Dyslipidemia Start: 03-13-2025 End: 03-13-2025 ambulatory HILTON DOTY Facility:[facility] Start: 03-13-2025 End: 03-13-2025 ambulatory Hilton Doty Facility: Start: 02-13-2025 ambulatory Hilton Doty Facilit y: Start: 02-06-2025 End: 02-06-2025 Telephone encounter Hilton Doty DO Work Phone: [facility] Comment on above: Results Refill Request Start: 02-06-2025 End: 02-06-[address] Derek Barone MD -[facility] Work Phone: Start: 02-06-2025 End: 02-06-[address] Hilton Doty DO Work Phone: -[facility] Start: 02-01-2025 ambulatory Hilton Hawkins y:[facility] Start: 02-01-2025 Non-patient / Non-visit Dr. Lupillo martinez MD -[facility]- Start: 02-01-2025 End: 02-01-[address] Hilton Doty DO Work Phone: -Pulmonary Services/Neurology Start: 02-01-2025 End: 02-01-[address] Hilton Doty DO -Pulmonary Services/Neurology Work Phone: Start: 02-01-2025 End: 02-01-2025 ambulatory Hilton Doty Facility: Start: 01-14-2025 End: 01-14-[address] Hilton Doty DO Work Phone: Work Phone: Start: 01-14-2025 End: 01-14-[address] Hilton Doty DO -Radiology [facility] Work Phone: Start: 01-14-2025 End: 01-14-2025 Patient encounter procedure Hilton Doty DO Work Phone: [facility] Comment on above: Left leg pain (Prima ry Dx); Leg heaviness; Varicose veins of both legs with edema; LIVIA (generalized anxiety disorder); Perimenopausal symptoms; Inflammatory polyarthropathy (HCC); Dyslipidemia; Fatigue, unspecified type Start: 01-14-2025 End: 01-14-2025 ambulatory HILTON DOTY Facility:[facility] Start: 01-13-2025 End: 01-13-2025 Patient encounter procedure Laura CEE -[facility] Work Phone: Start: 01-13-2025 End: 01-14-[address] Hilton Doty DO Work Phone: [facility] Services Work Phone: Start: 01-12-2025 End: 01-12-[address] Hilton Doty DO Work Phone: Work Phone: Start: 01-12-2025 End: 01-12-[address] Kay Khan MD -Laboratory Work Phone: Start: 01-12-2025 End: 01-12-2025 ambulatory Kay Khan Facility: Start: 01-10-2025 ambulatory Derek Barone Facility:[facility] Start: 01-10-2025 Non-patient / Non-visit Dr. Derek obsch MD -[facility] Start: 01-10-2025 End: 01-10-2025 Admission to same day surgery center Dr. Derek Barone MD -Traffic Or System Dispatcher/Special Procedures Work Phone: Start: 01-10-2025 End: 01-10-[address] Hilton Doty DO Work Phone: Work Phone: Start: 01-02-2025 End: 01-30-[address] Hilton Doty DO -Nutritional Services Work Phone: Start: 01-02-[address] Tameka Doty DO -Nutritional Services Work Phone: Start: 01-02-2025 End: 01-30-[address] Hilton Doty DO Work Phone: -Nutritional Services Start: 12-30-2024 Non-patient / Non-visit Dr. Derek bosch MD -[facility] Start: 12-30-2024 End: 12-30-[address] Hilton Dtoy DO Work Phone: Work Phone: Start: 12-30-2024 End: 12-30-2024 Patient encounter procedure Laura Rai [place] -Cardiovascular Services Work Phone: Start: 12-30-2024 End: 01-02-2025 Telephone encounter Hilton Doty DO Work Phone: [facility] Comment on above: Patient Update Start: 12-30-2024 End: 12-30-2024 ambulatory Laura Rai Facility: Start: 12-19-2024 End: 12-19-[address] Derek Barone MD -[facility] Work Phone: Start: 12-19-2024 End: 12-19-[address] Hilton Doty DO Work Phone: [facility] Services Work Phone: Start: 12-12-2024 End: 12-12-[address] Hilton Doty DO Work Phone: Work Phone: Start: 12-12-2024 End: 12-12-[address] Priscilla Mart DO -Laboratory Specimen Work Phone: Start: 12-12-2024 End: 12-12-[address] Priscilla Mart DO -[facility] Work Phone: Start: 12-12-2024 End: 12-12-[address] Priscilla Mart DO Start: 12-12-2024 End: 12-12-2024 ambulatory Hilton Doty Facility:[facility] Start: 12-12-2024 End: 12-12-2024 ambulatory Hilton Doty Facility: Start: 11-28-2024 End: 11-30-2024 ambulatory Hilton Doty Facility: Start: 11-28-2024 End: 11-30-[address] Hilton Doty DO -Nutritional Services Work Phone: Start: 11-19-2024 ambulatory Hilton Doty Facilit y: Start: 11-17-2024 End: 11-17-2024 Telephone encounter Hilton Doty DO Work Phone: [facility] [place] Comment on above: Insurance Authorizat ion Start: 11-16-2024 End: 11-16-2024 Patient encounter procedure Hilton Doty DO Work Phone: [facility] [place] Comment on above: LIVIA (generalized anx iety disorder) (Primary Dx); Obesity, Class I, BMI 30-34.9; Inflammatory polyarthropathy (HCC); Dyslipidemia; Inflammatory arthritis; Perimenopausal symptoms; SOB (shortness of breath); Varicose veins of both lower extremities with complications Start: 11-16-2024 End: 11-16-2024 ambulatory HILTON DOTY Facility:[facility] Start: 11-11-2024 End: 11-11-2024 Telephone encounter Hilton Doty DO Work Phone: Podiatry Comment on above: Results (CT Chest) Start: 11-10-2024 End: 11-10-[address] Hilton Doty DO Work Phone: Work Phone: Start: 11-10-2024 End: 11-10-[address] Hilton Doty DO -Pulmonary Services/Neurology Work Phone: Start: 11-10-2024 End: 11-10-2024 ambulatory Hilton Doty Facility:[facility] Start: 11-02-2024 End: 11-02-2024 Patient encounter procedure Laura CEE -[facility] Work Phone: Start: 11-02-2024 End: 11-02-2024 ambulatory Hilton Doty Facility:[facility] Start: 10-28-2024 End: 11-04-2024 Telephone encounter Hilton Doty DO Work Phone: [facility] [place] Comment on above: Insurance Authorizat ion Start: 10-26-2024 End: 10-26-2024 Patient encounter procedure Hilton Doty DO Work Phone: Family [facility] Comment on above: SOB (shortness of br eath) (Primary Dx); Wheezing; Hypokalemia; Varicose veins of both lower extremities with complications; LIVIA (generalized anxiety disorder); Perimenopausal symptoms; Inflammatory arthritis; Dyslipidemia; Inflammatory polyarthropathy (HCC); Fatigue, unspecified type; Vitamin D deficiency; Rosacea; Raynaud's phenomenon without gangrene Start: 10-26-2024 End: 10-26-2024 ambulatory HILTON DOTY Facility:[facility] Start: 10-26-2024 Non-patient / Non-visit Dr. Kong [facility] Start: 10-26-2024 End: 10-26-[address] Hilton Doty DO Work Phone: Work Phone: Start: 10-26-2024 End: 10-26-2024 Patient encounter procedure Rajinder Hinton NP-C -Cardiovascular Services Work Phone: Start: 10-26-2024 End: 10-26-2024 ambulatory Hilton Doty Facility: Start: 10-17-2024 End: 10-17-2024 Telephone encounter Rajinder Hinton APRN.CNP Work Phone: [facility] Comment on above: Results Start: 10-14-2024 End: 10-17-2024 Telephone encounter Rajinder Hinton APRN.CNP Work Phone: [facility] Comment on above: Patient Question Start: 10-14-2024 End: 10-14-2024 Patient encounter procedure Rajinder Hitnon APRN.CNP Work Phone: [facility] Comment on above: Bilateral leg edema (Primary Dx); SOB (shortness of breath); Obesity, Class I, BMI 30-34.9 Start: 10-14-2024 End: 10-14-2024 ambulatory RAJINDER MARY JANE Facility:[facility] Start: 10-14-2024 Non-patient / Non-visit Dr. Derek bosch MD -[facility] Start: 10-14-2024 End: 10-14-[address] Hilton Doty DO Work Phone: Work Phone: Start: 10-14-2024 End: 10-14-2024 Patient encounter procedure Laura CEE -Cardiovascular Services Work Phone: Start: 10-13-2024 End: 10-13-2024 Emergency department patient visit Dr. Hilton Doty DO Work Phone: -Emergency Department Work Phone: Start: 10-13-2024 End: 10-14-2024 ambulatory Hilton Doty DO Work Phone: [facility] Comment on above: Shortness of Breath Start: 10-07-2024 End: 10-20-2024 Refill Hilton Doty DO Work Phone: [facility] Comment on above: Refill Request Results Start: 10-03-2024 ambulatory Hilton Hawkins y:BMS Start: 09-26-2024 End: 09-26-[address] Hilton Doty DO Work Phone: Work Phone: Start: 09-26-2024 End: 09-26-2024 Patient encounter procedure Nilda GOINS -Outpatient Breast Imaging Work Phone: Start: 09-26-2024 End: 09-26-2024 ambulatory Hilton Doty Facility: Start: 09-22-2024 End: 09-22-[address] Hilton Doty DO -Laboratory Work Phone: Start: 09-22-2024 End: 09-22-2024 Telephone encounter Hilton Doty DO Work Phone: [facility] Comment on above: Orders Start: 09-21-2024 End: 09-22-2024 ambulatory Hilton Doty Facility: Start: 09-21-2024 Non-patient / Non-visit Dr. Derek bosch MD -[facility] Start: 09-21-2024 End: 09-21-2024 Patient encounter procedure Laura CEE -Cardiovascular Services Work Phone: Start: 09-21-2024 End: 09-21-2024 ambulatory Hilton Doty Facility: Start: 09-08-2024 End: 09-08-2024 Patient encounter procedure Laura CEE -[facility] Work Phone: Start: 09-08-2024 End: 09-08-2024 ambulatory Hilton Villatororison Facility:[facility] Start: 08-08-2024 End: 08-08-2024 Telephone encounter Hilotn Noe Doty DO Work Phone: Family [facility] Shields Comment on above: fax Vas referral to [place] Start: 08-01-2024 End: 08-01-2024 Patient encounter procedure Hilton Villatororison DO Work Phone: [facility] Comment on above: Varicose veins of vinnie th lower extremities with complications (Primary Dx); Hypokalemia; LIVIA (generalized anxiety disorder); Situational depression; Obesity, Class I, BMI 30-34.9; Inflammatory polyarthropathy (HCC); Dyslipidemia; Inflammatory arthritis; Perimenopausal symptoms Start: 08-01-2024 End: 08-01-2024 ambulatory HILTON L DOTY Facility:[facility] Start: 07-01-2024 End: 07-01-2024 Refill Anna Sheikh APRN.CNP Work Phone: Family [facility] Comment on above: Refill Request Start: 05-12-2024 End: 05-19-2024 Telephone encounter Hilton Villatororison DO Work Phone: Family [facility] Comment on above: Patient Question Start: 05-11-2024 End: 05-16-2024 ambulatory Hilton L Doty DO Work Phone: [facility] [place] Comment on above: Last appt Start: 04-27-2024 End: 04-27-2024 Telephone encounter Hilton Doty DO Work Phone: [facility] [place] Comment on above: Results Start: 04-25-2024 End: 04-25-2024 Patient encounter procedure Hilton Doty DO Work Phone: [facility] [place] Comment on above: Nausea (Primary Dx); SOB (shortness of breath); Hypokalemia; Fatigue, unspecified type; Inflammatory arthritis; Bilateral leg edema; Situational depression; Obesity, Class I, BMI 30-34.9; Inflammatory polyarthropathy (HCC); Dyslipidemia Start: 04-01-2024 End: 04-01-2024 Refill Hilton Doty DO Work Phone: [facility] [place] Comment on above: Refill Request Start: 03-17-2024 Refill Hilton finley DO Work Phone: [facility] [place] Comment on above: Refill Request Start: 02-08-2024 End: 02-08-2024 Subsequent hospital visit by physician Xr [facility] [place] Work Phone: Radiology Comment on above: Lower thoracic back pain [M54.6] Start: 02-08-2024 End: 02-08-2024 Office outpatient visit 15 minutes Doris Mendez APRN.COOK ROOM SUPERVISOR Work Phone: [facility] [place] Comment on above: Lower thoracic back pain (Primary Dx); Acute low back pain with sciatica, sciatica laterality unspecified, unspecified back pain laterality Start: 01-20-2024 End: 01-20-2024 Patient encounter procedure Hitlon Doty DO Work Phone: [facility] [place] Comment on above: Dyslipidemia (Primar y Dx); LIVIA (generalized anxiety disorder); Inflammatory polyarthropathy (HCC); Obesity, Class I, BMI 30-34.9; Bilateral leg edema; Vitamin D deficiency; Situational depression Start: 12-30-2023 Refill Hilton [facility]ley DO [facility] Comment on above: Refill Request Start: 11-25-2023 End: 12-01-[address] Hilton Doty Work Phone: Work Phone: Start: 11-25-2023 End: 12-01-[address] Hilton [facility] Start: 11-20-2023 End: 11-20-[address] Hilton Doty Work Phone: [facility] Work Phone: Start: 10-22-2023 Patient Msg [facility] Provider Family Sorin Shields Comment on above: Orders Start: 10-21-2023 End: 10-21-2023 Patient encounter procedure Hilton Doty DO Work Phone: [facility] Comment on above: Inflammatory polyart hropathy (HCC) (Primary Dx); Abnormal mammogram of right breast; Obesity, Class I, BMI 30-34.9; Inflammatory arthritis; Dyslipidemia; LIVIA (generalized anxiety disorder); Raynaud's phenomenon without gangrene; Vitamin D deficiency; Rosacea Start: 10-21-2023 Telephone encounter Hilton nunez DO Work Phone: [facility] Start: 10-14-2023 End: 10-14-[address] Hilton Doty Work Phone: [facility] Work Phone: Start: 10-05-2023 Telephone encounter Ale Mancia MD Work Phone: Rheumatology Comment on above: Patient Question Start: 09-29-2023 Non-patient / Non-visit Dr. Melissa Doty Work Phone: [facility] Start: 09-29-2023 End: 09-29-2023 Admission to same day surgery center Dr. Hilton Doty Work Phone: -Surgical Day Care Start: 09-26-2023 End: 09-26-[address] Hilton Doty Work Phone: [facility] Work Phone: Start: 09-24-2023 End: 09-24-[address] Hilton Doty Work Phone: [facility] Work Phone: Start: 09-15-2023 Chart abstracting Leo helton LINK WIRE FABRIC MACHINE TENDER.BUNCH TRIMMER MOLD Work Phone: Rheumatology Comment on above: Abstract (PLQ eye ex am ) Start: 09-14-2023 End: 09-14-[address] Hilton Doty Work Phone: Work Phone: Start: 09-14-2023 End: 09-14-[address] Hilton [facility] Work Phone: Start: 09-14-2023 Telephone encounter Ale Mancia MD Work Phone: Rheumatology Comment on above: Patient Question; Pa tient Update Patient Question Start: 09-14-2023 End: 09-14-[address] Hilton Doty Work Phone: [facility] Work Phone: Start: 09-03-2023 Chart abstracting Leo helton LINK WIRE FABRIC MACHINE TENDER.BUNCH TRIMMER MOLD Work Phone: Rheumatology Comment on above: Abstract (Outside la b results ) Start: 09-02-2023 End: 09-02-[address] Hilton Doty Work Phone: Work Phone: Start: 09-02-2023 End: 09-02-[address] Hilton Doty Work Phone: -Laboratory Work Phone: Start: 08-12-2023 End: 08-12-[address] Hilton Doty Work Phone: Work Phone: Start: 08-12-2023 End: 08-12-[address] Hilton Doty Work Phone: -Laboratory, Specimen Work Phone: Start: 08-12-2023 End: 08-12-[address] Hilton Doty Work Phone: [facility] Work Phone: Start: 07-10-2023 Refill Priscilla Junior MD Work Phone: Rheumatology Comment on above: Refill Request Start: 07-09-2023 End: 07-09-[address] Hilton Doty Work Phone: Work Phone: Start: 07-09-2023 End: 07-09-[address] Hilton Doty Work Phone: -Ultrasound, [facility] Work Phone: Start: 06-15-2023 Telephone encounter Hilton nunez DO Work Phone: [facility] Comment on above: Results Start: 06-11-2023 End: 06-11-[address] Hilton Doty Work Phone: [facility] Work Phone: Start: 06-11-2023 End: 06-11-[address] Hilton Doty Work Phone: Work Phone: Start: 06-11-2023 End: 06-11-[address] Hilton Doty Work Phone: [facility] Work Phone: Start: 06-09-2023 End: 06-09-[address] Hilton Doty Work Phone: Work Phone: Start: 06-09-2023 End: 06-09-[address] Hilton Doty Work Phone: -Outpatient Breast Imaging Work Phone: Start: 06-03-2023 End: 06-03-2023 Patient encounter procedure Hilton Doty DO Work Phone: [facility] Comment on above: LIVIA (generalized anx iety disorder) (Primary Dx); Bilateral leg edema; Need for influenza vaccination; Inflammatory polyarthropathy (HCC); Obesity, Class III, BMI 40-49.9 (morbid obesity) (HCC); Situational depression; Encounter for screening mammogram for malignant neoplasm of breast; Dyslipidemia; Obesity, Class I, BMI 30-34.9; Varicose veins of both lower extremities with pain Start: 05-12-[address] Hilton Doty Work Phone: -Laboratory Work Phone: Start: 05-04-2023 Refill Hilton Don son DO Work Phone: [address] [place] [address] Comment on above: Refill Request Start: 04-13-2023 Refill Priscilla Junior MD Work Phone: Rheumatology Comment on above: Refill Request; Allyn ent Update; Patient lost her insurance Start: 04-03-2023 Refill Hilton finley DO Work Phone: [facility] Comment on above: Refill Request Start: 03-02-2023 End: 03-02-2023 Patient encounter procedure Hilton Doty DO Work Phone: [facility] Comment on above: Dyslipidemia (Primar y Dx); Inflammatory polyarthropathy (HCC); Obesity, Class I, BMI 30-34.9; LIVIA (generalized anxiety disorder); Raynaud's phenomenon without gangrene; Bilateral leg edema; Vitamin D deficiency Start: 02-25-[address] Hilton Dot[facility] Start: 02-25-[address] Tameka Doty Work Phone: [facility] Start: 01-27-2023 Telephone encounter Hilton nunez DO Work Phone: [facility] Comment on above: Patient Update; Allyn ent Question Start: 01-06-2023 Refill Priscilla Junior MD Work Phone: Rheumatology Comment on above: Refill Request Start: 12-24-2022 ambulatory Hilton finley DO Work Phone: Internal Medicine [place] Start: 12-01-2022 ambulatory Hilton finley DO Work Phone: [facility] Comment on above: lab results Start: 12-01-2022 E-mail encounter fro m caregiver Hilton Doty DO Work Phone: [facility] [place] Start: 11-24-2022 End: 11-24-2022 Patient encounter procedure Hilton Doty Work Phone: [facility] Comment on above: LIVIA (generalized anx iety disorder) (Primary Dx); Inflammatory polyarthropathy (HCC); Dyslipidemia; Obesity, Class I, BMI 30-34.9; Raynaud's phenomenon without gangrene; Situational depression Start: 10-24-2022 End: 10-24-2022 Patient encounter procedure Hitlon Vásquezon DO Work Phone: [facility] Comment on above: Dyslipidemia (Primar y Dx); Inflammatory polyarthropathy (HCC); Obesity, Class I, BMI 30-34.9; Hot flashes; Bilateral leg edema Start: 10-08-2022 Telephone encounter Hilton nunez DO Work Phone: [facility] Comment on above: Appointment Start: 09-12-2022 ambulatory Priscilla Junior MD Work Phone: Rheumatology Comment on above: Lab results Start: 09-12-2022 E-mail encounter rachel toledo caregiver Priscilla Junior MD Work Phone: [facility] Start: 08-28-2022 End: 08-28-2022 Patient encounter procedure Priscilla Junior MD Work Phone: Rheumatology Comment on above: 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); Inflammatory arthritis; Encounter for long-term (current) use of medications; Facial rash; Sicca syndrome (HCC) Start: 07-29-2022 Telephone encounter Hilton nunez DO Work Phone: [facility] [place] Comment on above: Medication Problem Start: 07-28-2022 ambulatory Hilton finley DO Work Phone: [facility] [place] Start: 07-28-2022 Follow-up encounter Hilton nunez DO Work Phone: [facility] [place] Comment on above: Regarding qsymia rachel toledo follow up visit Start: 07-23-2022 End: 07-23-2022 Patient encounter procedure Hilton Doty DO Work Phone: [facility] [place] Comment on above: Dyslipidemia (Primar y Dx); LIVIA (generalized anxiety disorder); Inflammatory polyarthropathy (HCC); Obesity, Class I, BMI 30-34.9; Rosacea; Bilateral leg edema Start: 06-25-2022 Chart abstracting Leo helton APRN.CNP Work Phone: Rheumatology Comment on above: Abstract (PLQ eye ex am 05/20/2022) Start: 05-19-2022 Refill Hilton finley DO Work Phone: [facility] [place] Comment on above: Refill Request Start: 04-23-2022 End: 04-23-2022 Patient encounter procedure Hilton Doty DO Work Phone: [facility] [place] Comment on above: LIVIA (generalized anx iety disorder) (Primary Dx); Obesity, Class III, BMI 40-49.9 (morbid obesity) (HCC); Inflammatory polyarthropathy (HCC) Start: 02-12-2022 End: 02-12-2022 Patient encounter procedure Delphine Floyd APRN.B[employer]CH TRIMMER M[employer] Work Phone: OB/Gynecology Comment on above: Encounter for gyneco logical examination with abnormal finding (Primary Dx); Pain due to intrauterine contraceptive device (IUD), initial encounter (HCC); Postcoital bleeding; Vaginal discharge Start: 02-12-2022 End: 02-12-2022 Patient encounter status Delphine Mariel UNDERWOOD.BUNCH TRIMMER MOLD Work Phone: OB/Gynecology Start: 02-01-2022 Refill Hilton finley DO Work Phone: [facility] [place] Start: 01-20-2022 End: 01-20-2022 Patient encounter procedure Hilton Doty DO Work Phone: [facility] [place] Comment on above: Dyslipidemia (Primar y Dx); Encounter for screening mammogram for malignant neoplasm of breast; LIVIA (generalized anxiety disorder); Eczematous dermatitis of upper eyelids of both eyes; Inflammatory polyarthropathy (HCC); Bilateral leg edema; Obesity, Class I, BMI 30-34.9 Start: 01-06-2022 Telephone encounter Hilton nunez DO Work Phone: [facility] [place] Comment on above: Medication Problem Start: 12-20-2021 Refill Anna hinojosa APRN.[employer] Work Phone: [facility] Comment on above: Refill Request Start: 12-13-2021 Telephone encounter Ale Mancia MD Work Phone: Rheumatology Comment on above: Medication Question Procedures Date Procedure Procedure Detail Performing Clinician Start: 03-29-[address] Hilton Doty DO Work Phone: Comment on above: Result: c.1601G>A (p .[id number]) - Not DetectedThis result is not associated with an increased risk for venousthromboembolism. See Additional Clinical Information andComments.Additional Clinical Information: Venous thromboembolism is a multifactorial diseaseinfluenced by genetic, environmental, and circumstantialrisk factors. The c.1601G>A (p. [id number]) variant in theF5 gene, commonly referred to as Factor V Leiden, is agenetic risk factor for venous thromboembolism.Heterozygous carriers of this variant have a 6- to 8-foldincreased risk for venous thromboembolism. Individualshomozygous for this variant (ie, with a copy of the varianton each chromosome) have an approximately 80-fold increasedrisk for venous thromboembolism. Individuals who carry jennifer c.*97G>A variant in the F2 gene and Factor V Leiden havean approximately 20-fold increased risk for venousthromboembolism. Risks are likely to be even higher in morecomplex genotype combinations involving the F2 c.*97G>Avariant and Factor V Leiden (PMID: [id number]). Additionalrisk factors include but are not limited to: deficiency ofprotein C, protein S, or antithrombin III, age, male sex,personal or family history of deep vein thromboembolism,smoking, surgery, prolonged immobilization, malignantneoplasm, tamoxifen treatment, raloxifene treatment, oralcontraceptive use, hormone replacement therapy, andpregnancy. Management of thrombotic risk and thromboticevents should follow established guidelines and fit theclinical circumstance. This result cannot predict theoccurrence or recurrence of a thrombotic event.Comment: Genetic counseling is recommended to discuss thepotential clinical implications of positive results, aswell as recommendations for testing family members. Genetic Coordinators are available for health careproviders to discuss results at [phone] ([phone]).Test Details: Variant Analyzed: c.1601G>A (p. [id number]), referredto as Factor V LeidenMethods/Limitations: DNA analysis of the F5 gene (NM_000130.5) wasperformed by PCR amplification followed by electrophoresis.The diagnostic sensitivity is >99%. Results must becombined with clinical information for the most accurateinterpretation. Molecular-based testing is highly accurate,but as in any laboratory test, diagnostic errors may occur.False positive or false negative results may occur forreasons that include genetic variants, blood transfusions,bone marrow transplantation, somatic or tissue-specificmosaicism, mislabeled samples, or erroneous representationof family relationships. This test was developed and its performancecharacteristics determined by [employer]. It has not beencleared or approved by the Food and Drug Administration.References: Radha S, Gloria PENN, Tushar R, Jean WW, Alejandro JH;[facility] Professional Practice and Guidelines Committee.Addendum: [place] [employer] consensusstatement on factor V Leiden mutation testing. Lindsey Med.2020Oct 05. doi: 10.1038/o44941-608-82080-g. PMID:63902324. Mitch GUERRERO. Factor V Leiden Thrombophilia. 1998December 14(Updated 2017Aug 06). In: Riaz MP, Robb HH, Todd RA,et al., editors. Elizabeth(R) (Internet). [place] ([place]):[facility]; 9973-9571. Availablefrom: https://www.ncbi.nlm.nih.gov/books/USZ1991/ Darek Helton, Gloria PENN, Daryl X, Vishnu B, Lia EB, Kell P,Michele CS; [facility] Laboratory Arc Welder Committee.Venous thromboembolism laboratory testing (factor V Leidenand factor II c. *97G>A), 2018 update: a technical standardof the [place] [employer] and Genomics([facility]). Lindsey Med. 2017;20(12): 2033-0760. doi:10.1038/i44920-955-5993-v. Epub 2017May 07. PMID: 63198041. Start: 03-13-[address] Hilton Doty DO Work Phone: Start: 03-13-[address] test [address] Hilton Doty DO Work Phone: Start: 03-13-[address] Melissa Doty DO Work Phone: Start: 03-13-2025 Serum IgM anticardio lipin measurement Dr. Hilton Doty DO Work Phone: Comment on above: Negative: <13 Indete rminate: 13 - 20 Low-Med Positive: >20 - 80 High Positive: >80 Start: 01-14-2025 Plain x-ray of pelvi s and lower extremity Dr. Hilton Doty DO Work Phone: Start: 01-14-2025 End: 01-14-2025 X-ray of knee, one or two views Dr. Jason Doty DO Work Phone: Start: 01-14-2025 X-ray of lumbar spin e, two or three views Dr. Hilton Doty DO Work Phone: Start: 01-10-[address] Hilton [...] Radex spine lumbosac ral 2/3 views Doris Mendez LINK WIRE FAB[employer]IC MACHINE TENDER.BUNCH TRIMMER MOLD Work Phone: Start: 07-09-[address] Rachel Doty Work Phone: Start: 07-09-[address] Hilton Doty Work Phone: Start: 06-11-[address] Hilton Doty Work Phone: Start: 06-09-2023 Screening mammography Leon Doty Work Phone: Start: 06-03-2023 INFLUENZA VACCINE, A GE 6 MO - 64 YR, QUADRIVALENT (AFLURIA, FLULAVAL, FLUZONE) Hilton Doty DO Work Phone: Start: 01-18-2022 Lipid 1996 panel - S constanza or Plasma Hilton Doty DO Work Phone: Start: 07-01-2021 Mammography Ale Mancia MD Work Phone: Start: 04-12-2021 Adult depression scr eening assessment Ale Conner MD Work Phone: Plan of Treatment Date Care Activity Detail Author Start: 01-18-2027 Lipid panel Lipid Screening [facility] Start: 01-04-2026 HPV TESTING HPV TESTING [facility] Start: 01-04-2026 PAP TESTING PAP TESTING [facility] Start: 01-04-2026 Screening for malignant neoplasm of cervix [facility] Start: 08-28-2025 Diabetes Screening Diabetes Screening [facility] Start: 06-09-2025 End: 06-09-2025 Patient encounter procedure 06/09/2025 11:00 AM EST Office Visit [facility] [place] [address] [place] [address] Hilton Doty DO [address] [facility] [place] [address] 3 month follow up [facility] Comment on above: 3 month follow up Start: 05-18-2025 End: 05-18-2025 Patient encounter procedure Venous insufficiency [facility] Work Phone: Start: 05-04-2025 Patient discharge Start: 04-03-2025 [facility] Start: 03-20-2025 End: 03-20-2025 Patient encounter procedure 03/20/2025 1:40 PM EDT Office Visit Family [facility] [address] [place], [place] [id number] Hilton Doty DO [address] [place], [place] [id number] follow up: anxiety and medication [facility] Comment on above: follow up: anxiety and medication Start: 03-13-2025 End: 06-11-2025 C reactive protein [Mass/volume] in Serum or Plasma C-REACTIVE PROTEIN Lab Routine Leg pain, bilateral Varicose veins of both legs with edema Inflammatory polyarthropathy (HCC) Inflammatory arthritis Expected: 03/13/2025, Expires: 06/11/2025 [facility] Work Phone: Comment on above: Expected: 03/13/2025, Expires: Start: 03-13-2025 End: 06-11-2025 Erythrocyte sedimentation rate SEDIMENTATION RATE, WESTERGREN Lab Routine Leg pain, bilateral Varicose veins of both legs with edema Inflammatory polyarthropathy (HCC) Inflammatory arthritis Expected: 03/13/2025, Expires: 06/11/2025 [facility] Comment on above: Expected: 03/13/2025, Expires: Start: 03-13-2025 End: 06-11-2025 HYPERCOAG DIAG PNL HYPERCOAG DIAG PNL Lab Routine Leg pain, bilateral Varicose veins of both legs with edema Inflammatory polyarthropathy (HCC) Inflammatory arthritis Expected: 03/13/2025, Expires: 06/11/2025 [facility] Comment on above: Expected: 03/13/2025, Expires: Start: 02-02-2025 Screening for malignant neoplasm of colon [facility] Start: 01-24-2025 Urine microalbumin profile [facility] Start: 01-11-2025 Patient discharge Start: 11-16-2024 End: 11-16-2024 Patient encounter procedure 11/16/2024 7:00 PM EDT Office Visit [facility] [place] [address] [place] [address] Hilton Doty DO [address] [place] [address] Follow up [facility] [place] Comment on above: Follow up Start: 10-26-2024 End: 10-26-2024 Patient encounter procedure 10/26/2024 6:20 PM EDT Office Visit [facility] [place] [address] [place] [address] Hilton Doty DO [address] [place] [address] 3 month follow up [facility] [place] Comment on above: 3 month follow up Start: 10-26-2024 End: 01-25-2025 25-hydroxyvitamin D3 [Mass/volume] in Serum or Plasma VITAMIN D 25 HYDROXY Lab Routine Vitamin D deficiency Expected: 10/26/2024, Expires: 01/25/2025 [facility] Comment on above: Expected: 10/26/2024, Expires: Start: 10-26-2024 End: 01-25-2025 C reactive protein [Mass/volume] in Serum or Plasma C-REACTIVE PROTEIN Lab Routine Inflammatory arthritis Inflammatory polyarthropathy (HCC) Expected: 10/26/2024, Expires: 01/25/2025 [facility] Comment on above: Expected: 10/26/2024, Expires: Start: 10-26-2024 End: 01-25-2025 CBC W Auto Differential panel - Blood COMPLETE BLOOD COUNT AND DIFFERENTIAL Lab Routine Perimenopausal symptoms Fatigue, unspecified type Expected: 10/26/2024, Expires: 01/25/2025 [facility] Comment on above: Expected: 10/26/2024, Expires: Start: 10-26-2024 End: 01-25-2025 Cobalamin (Vitamin B12) [Mass/volume] in Serum or Plasma VITAMIN B12 Lab Routine Inflammatory arthritis Inflammatory polyarthropathy (HCC) Fatigue, unspecified type Expected: 10/26/2024, Expires: 01/25/2025 [facility] Comment on above: Expected: 10/26/2024, Expires: Start: 10-26-2024 End: 01-25-2025 Comprehensive metabolic 2000 panel - Serum or Plasma COMPREHENSIVE METABOLIC PANEL Lab Routine Perimenopausal symptoms Fatigue, unspecified type Expected: 10/26/2024, Expires: 01/25/2025 [facility] Comment on above: Expected: 10/26/2024, Expires: Start: 10-26-2024 End: 01-25-2025 Iron and Iron binding capacity panel - Serum or Plasma IRON AND TIBC Lab Routine Perimenopausal symptoms Inflammatory arthritis Raynaud's phenomenon without gangrene Expected: 10/26/2024, Expires: 01/25/2025 [facility] Comment on above: Expected: 10/26/2024, Expires: Start: 10-26-2024 End: 01-25-2025 Thyrotropin [Units/volume] in Serum or Plasma THYROID STIMULATING HORMONE Lab Routine Perimenopausal symptoms Fatigue, unspecified type Expected: 10/26/2024, Expires: 01/25/2025 [facility] Comment on above: Expected: 10/26/2024, Expires: Start: 10-26-2024 End: 01-25-2025 Thyroxine (T4) free [Mass/volume] in Serum or Plasma T4 FREE/FREE THYROXINE Lab Routine Perimenopausal symptoms Fatigue, unspecified type Expected: 10/26/2024, Expires: 01/25/2025 [facility] Comment on above: Expected: 10/26/2024, Expires: Start: 10-14-2024 End: 01-13-2025 Natriuretic peptide.B prohormone N-Terminal [Mass/volume] in Serum or Plasma NT PRO BNP Lab Routine Bilateral leg edema Expected: 10/14/2024, Expires: 01/13/2025 [facility] Work Phone: Comment on above: Expected: 10/14/2024, Expires: Start: 10-13-2024 Start: 10-13-2024 Start: 08-01-2024 End: 10-31-2024 C reactive protein [Mass/volume] in Serum or Plasma C-REACTIVE PROTEIN Lab Routine Inflammatory polyarthropathy (HCC) Expected: 08/01/2024, Expires: 10/31/2024 [facility] Comment on above: Expected: 08/01/2024, Expires: Start: 08-01-2024 End: 10-31-2024 CBC W Auto Differential panel - Blood COMPLETE BLOOD COUNT AND DIFFERENTIAL Lab Routine Hypokalemia Expected: 08/01/2024, Expires: 10/31/2024 [facility] Comment on above: Expected: 08/01/2024, Expires: Start: 08-01-2024 End: 10-31-2024 Comprehensive metabolic 2000 panel - Serum or Plasma COMPREHENSIVE METABOLIC PANEL Lab Routine Hypokalemia Expected: 08/01/2024, Expires: 10/31/2024 [facility] Work Phone: Comment on above: Expected: 08/01/2024, Expires: Start: 08-01-2024 End: 10-31-2024 Thyrotropin [Units/volume] in Serum or Plasma THYROID STIMULATING HORMONE Lab Routine Hypokalemia Expected: 08/01/2024, Expires: 10/31/2024 [facility] Comment on above: Expected: 08/01/2024, Expires: Start: 08-01-2024 End: 08-01-2024 Patient encounter procedure 08/01/2024 10:00 AM EST Office Visit [facility] [place] [address] [place] [address] Hilton Doty, [address] [place] [address] 3 month follow up [facility] [place] Comment on above: 3 month follow up Start: 06-03-2024 Covid-19 Vaccine () Covid-19 Vaccine () [facility] Comment on above: Postponed from 04/03/2023 (Declined at t his time) Start: 04-27-2024 End: 07-27-2024 Potassium [Moles/volume] in Serum or Plasma POTASSIUM Lab Routine Hypokalemia Expected: 04/27/2024, Expires: 07/27/2024 [facility] Work Phone: Comment on above: Expected: 04/27/2024, Expires: Start: 04-25-2024 End: 07-25-2024 25-hydroxyvitamin D3 [Mass/volume] in Serum or Plasma VITAMIN D 25 HYDROXY Lab Routine Fatigue, unspecified type Expected: 04/25/2024, Expires: 07/25/2024 [facility] Comment on above: Expected: 04/25/2024, Expires: Start: 04-25-2024 End: 07-25-2024 CBC W Auto Differential panel - Blood COMPLETE BLOOD COUNT AND DIFFERENTIAL Lab Routine SOB (shortness of breath) Expected: 04/25/2024, Expires: 07/25/2024 [facility] Comment on above: Expected: 04/25/2024, Expires: Start: 04-25-2024 End: 07-25-2024 Cobalamin (Vitamin B12) [Mass/volume] in Serum or Plasma VITAMIN B12 Lab Routine Fatigue, unspecified type Expected: 04/25/2024, Expires: 07/25/2024 [facility] Comment on above: Expected: 04/25/2024, Expires: Start: 04-25-2024 End: 07-25-2024 Comprehensive metabolic 2000 panel - Serum or Plasma COMPREHENSIVE METABOLIC PANEL Lab Routine Hypokalemia Expected: 04/25/2024, Expires: 07/25/2024 [facility] Comment on above: Expected: 04/25/2024, Expires: Start: 04-25-2024 End: 07-25-2024 Lipase [Enzymatic activity/volume] in Serum or Plasma LIPASE Lab Routine Nausea Expected: 04/25/2024, Expires: 07/25/2024 [facility] Comment on above: Expected: 04/25/2024, Expires: Start: 04-25-2024 End: 07-25-2024 Thyrotropin [Units/volume] in Serum or Plasma THYROID STIMULATING HORMONE Lab Routine Nausea Expected: 04/25/2024, Expires: 07/25/2024 [facility] Work Phone: Comment on above: Expected: 04/25/2024, Expires: Start: 04-25-2024 End: 04-25-2024 Patient encounter procedure 04/25/2024 10:00 AM EDT Office Visit [facility] [place] [address] [place], [place] [id number] Hilton Doty DO [address] [place], [place] [id number] Follow up [facility] [place] Comment on above: Follow up Start: 04-03-2024 Covid-19 Vaccine ( season) Covid-19 Vaccine ( season) [facility] Start: 04-03-2024 Covid-19 Vaccine ( season) Covid-19 Vaccine ( season) [facility] Start: 04-03-2024 Influenza vaccination Influenza Vaccine (#1) [facility] Start: 01-20-2024 End: 01-20-2024 Patient encounter procedure 01/20/2024 6:40 PM EDT Office Visit [facility] [address] [place] [address] Hilton Doty DO [address] [place], [place] [id number] Follow up [facility] [place] Comment on above: Follow up Start: 09-29-2023 Anesthesia vaginal procedure w/biopsy nos ANESTH VAGINAL PROCEDURES Start: 09-29-2023 Endometrial abltj thermal w/o hysteroscopic guid ENDOMETR ABLATE THERMAL Start: 09-29-2023 Patient discharge Start: 09-29-2023 Procedure discontinued Start: 09-29-2023 Ambulation without limitation Start: 09-29-2023 Medical regimen orders management Start: 09-29-2023 Medication education Start: 09-29-2023 Taking patient vital signs [facility] Start: 09-29-2023 Vital signs measurements [facility] Start: 09-29-2023 Start: 08-12-2023 Liquid based cervical cytology screening Start: 04-03-2023 Influenza vaccination [facility] Start: 01-30-2023 Influenza vaccination INFLUENZA (#1) [facility] Comment on above: Postponed from 04/03/2022 (Declined at t his time) Start: 10-24-2022 End: 12-24-2022 Progesterone [Mass/volume] in Serum or Plasma PROGESTERONE BLD Lab Routine Hot flashes Expected: 10/24/2022, Expires: 12/24/2022 [facility] Work Phone: Comment on above: Expected: 10/24/2022, Expires: 3 Start: 10-24-2022 End: 12-24-2022 TESTOSTERONE, FREE AND TOTAL TESTOSTERONE, FREE AND TOTAL Lab Routine Hot flashes Expected: 10/24/2022, Expires: 12/24/2022 [facility] Work Phone: Comment on above: Expected: 10/24/2022, Expires: 3 Start: 10-24-2022 End: 12-24-2022 Thyrotropin [Units/volume] in Serum or Plasma TSH BLD Lab Routine Hot flashes Expected: 10/24/2022, Expires: 12/24/2022 [facility] Work Phone: Comment on above: Expected: 10/24/2022, Expires: 3 Start: 10-24-2022 End: 12-24-2022 Thyroxine (T4) free [Mass/volume] in Serum or Plasma T4 FREE/FREE THYROX Lab Routine Hot flashes Expected: 10/24/2022, Expires: 12/24/2022 [facility] Work Phone: Comment on above: Expected: 10/24/2022, Expires: 3 Start: 10-24-2022 End: 12-24-2022 Triiodothyronine (T3) Free [Mass/volume] in Serum or Plasma T3 FREE BLD Lab Routine Hot flashes Expected: 10/24/2022, Expires: 12/24/2022 [facility] Work Phone: Comment on above: Expected: 10/24/2022, Expires: 3 Start: 08-28-2022 End: 10-28-2022 Aldolase [Enzymatic activity/volume] in Serum or Plasma ALDOLASE BLD Lab Routine Undifferentiated connective tissue disease (HCC) Expected: 08/28/2022, Expires: 10/28/2022 [facility] Work Phone: Comment on above: Expected: 08/28/2022, Expires: 3 Start: 08-28-2022 End: 10-28-2022 MAXIM BY IFA WITH REFLEX [facility] Work Phone: Comment on above: Expected: 08/28/2022, Expires: 3 Start: 08-28-2022 End: 10-28-2022 C reactive protein [Mass/volume] in Serum or Plasma [facility] Work Phone: Comment on above: Expected: 08/28/2022, Expires: 3 Start: 08-28-2022 End: 10-28-2022 Centromere Ab [Presence] in Serum by Immunofluorescence [facility] Work Phone: Comment on above: Expected: 08/28/2022, Expires: 3 Start: 08-28-2022 End: 10-28-2022 Complement C3 [Mass/volume] in Serum or Plasma [facility] Work Phone: Comment on above: Expected: 08/28/2022, Expires: 3 Start: 08-28-2022 End: 10-28-2022 Complement C4 [Mass/volume] in Serum or Plasma [facility] Work Phone: Comment on above: Expected: 08/28/2022, Expires: 3 Start: 08-28-2022 End: 10-28-2022 Comprehensive metabolic 2000 panel - Serum or Plasma [facility] Work Phone: Comment on above: Expected: 08/28/2022, Expires: 3 Start: 08-28-2022 End: 10-28-2022 Creatine kinase [Enzymatic activity/volume] in Serum or Plasma CK CREATINE KINASE Lab Routine Undifferentiated connective tissue disease (HCC) Expected: 08/28/2022, Expires: 10/28/2022 [facility] Work Phone: Comment on above: Expected: 08/28/2022, Expires: 3 Start: 08-28-2022 End: 10-28-2022 IMMUNOFIXATION SCREEN, SERUM [facility] Work Phone: Comment on above: Expected: 08/28/2022, Expires: 3 Start: 08-28-2022 End: 10-28-2022 KAPPA/DIEGO,FREE,SER [facility] Work Phone: Comment on above: Expected: 08/28/2022, Expires: 3 Start: 08-28-2022 End: 10-28-2022 Lactate dehydrogenase [Enzymatic activity/volume] in Serum or Plasma LD LACTATE DEHYDRO Lab Routine Undifferentiated connective tissue disease (HCC) Expected: 08/28/2022, Expires: 10/28/2022 [facility] Work Phone: Comment on above: Expected: 08/28/2022, Expires: 3 Start: 08-28-2022 End: 10-28-2022 MONOCLONAL PROT UR W/INTERP [facility] Work Phone: Comment on above: Expected: 08/28/2022, Expires: 3 Start: 08-28-2022 End: 10-28-2022 PM-SCL-100 IgG Ab [Units/volume] in Serum [facility] Work Phone: Comment on above: Expected: 08/28/2022, Expires: 3 Start: 08-28-2022 End: 10-28-2022 POLYMYOSITIS AND DERMATOMYOSITIS PANEL [facility] Work Phone: Comment on above: Expected: 08/28/2022, Expires: 3 Start: 08-28-2022 End: 10-28-2022 [facility] Work Phone: Comment on above: Expected: 08/28/2022, Expires: 3 Start: 08-28-2022 End: 10-28-2022 PROTEIN ELECTROPHORESIS SERUM W/INTERP [facility] Work Phone: Comment on above: Expected: 08/28/2022, Expires: 3 Start: 08-28-2022 End: 10-28-2022 Protein/Creatinine [Mass Ratio] in Urine [facility] Work Phone: Comment on above: Expected: 08/28/2022, Expires: 3 Start: 08-28-2022 End: 10-28-2022 Rheumatoid factor [Units/volume] in Serum or Plasma [facility] Work Phone: Comment on above: Expected: 08/28/2022, Expires: 3 Start: 08-28-2022 End: 10-28-2022 RNA POLYMERASE III AB [facility] Work Phone: Comment on above: Expected: 08/28/2022, Expires: 3 Start: 08-28-2022 End: 10-28-2022 SCL-70 extractable nuclear IgG Ab [Units/volume] in Serum by Immunoassay [facility] Work Phone: Comment on above: Expected: 08/28/2022, Expires: 3 Start: 08-28-2022 End: 10-28-2022 TH/TO ANTIBODY [facility] Work Phone: Comment on above: Expected: 08/28/2022, Expires: 3 Start: 08-28-2022 End: 10-28-2022 U3RNP FIBRILLARIN AB [facility] Work Phone: Comment on above: Expected: 08/28/2022, Expires: 3 Start: 08-28-2022 End: 10-28-2022 Urinalysis complete panel - Urine [facility] Work Phone: Comment on above: Expected: 08/28/2022, Expires: 3 Start: 08-03-2022 DEPRESSION ASSESSMENT DEPRESSION ASSESSMENT [facility] Start: 07-03-2022 End: 02-19-2023 CINDY SCREENING W [facility] CINDY SCREENING W [facility] Radiology Routine Encounter for screening mammogram for malignant neoplasm of breast Expected: 07/03/2022 (Approximate), Expires: 02/19/2023 [facility] Work Phone: Comment on above: Expected: 07/03/2022 (Approximate), Expi res: 02/19/2023 Start: 07-01-2022 Mammography [facility] Start: 07-01-2022 Screening for malignant neoplasm of breast Mammogram Screening [facility] Start: 04-12-2022 Adult depression screening assessment DEPRESSION SCREENING [facility] Start: 04-03-2022 Influenza vaccination INFLUENZA (#1) [facility] Start: 08-03-2021 DEPRESSION ASSESSMENT DEPRESSION ASSESSMENT [facility] Start: 04-24-2021 COVID-19 VACCINE (3 - Booster for Moderna series) COVID-19 VACCINE (3 - Booster for Moderna series) [facility] Start: 04-24-2021 COVID-19 VACCINE (3 - Moderna series) COVID-19 VACCINE (3 - Moderna series) [facility] Start: 03-27-2021 COVID-19 VACCINE (3 - Moderna risk series) COVID-19 VACCINE (3 - Moderna risk series) [facility] Start: 02-02-2007 HPV Vaccine (1 - 3-dose SCDM series) HPV Vaccine (1 - 3-dose SCDM series) [facility] Start: 02-02-1999 SHINGRIX VACCINE (1 of 2) SHINGRIX VACCINE (1 of 2) [facility] Start: 02-02-1998 HIV SCREENING HIV SCREENING [facility] Start: 02-02-1998 HIV screening HIV Screening [facility] Start: 02-02-1986 PNEUMOCOCCAL (1 - PCV) PNEUMOCOCCAL (1 - PCV) [facility] Start: 1980 HEPATITIS B (1 of 3 - 3-dose series) HEPATITIS B (1 of 3 - 3-dose series) [facility] Start: 1980 Hepatitis B Vaccine (1 of 3 - 3-dose series) Hepatitis B Vaccine (1 of 3 - 3-dose series) [facility] Activated protein C resistance [Time Ratio] in Platelet poor plasma by Coagulation assay Antithrombin III ass ay, functional Beta 2 glycoprotein 1 IgA Ab [Presence] in Serum Beta 2 glycoprotein 1 IgG Ab [Presence] in Serum Beta 2 glycoprotein 1 IgM Ab [Presence] in Serum Cardiolipin IgG Ab [Units/volume] in Serum or Plasma Cardiolipin IgM Ab [Units/volume] in Serum or Plasma End: 11-25-2025 CT Chest WO contrast CT CHEST WO IVCON Radiology Routine SOB (shortness of breath) Wheezing 1 Occurrences starting 10/26/2024 until 11/25/2025 [facility] Comment on above: 1 Occurrences starting 10/26/2024 until 11/25/2025 End: 06-10-2025 DBT Breast - bilateral screening CINDY SCREENING W [facility] Radiology Routine Encounter for screening mammogram for breast cancer 1 Occurrences starting 05/11/2024 until 06/10/2025 [facility] Work Phone: Comment on above: 1 Occurrences starting 05/11/2024 until 06/10/2025 dRVVT (LA screen) [facility] End: 10-14-2025 Echocardiography ECHO Cardiology STAT Bilateral leg edema SOB (shortness of breath) 1 Occurrences starting 10/14/2024 until 10/14/2025 [facility] Work Phone: Comment on above: 1 Occurrences starting 10/14/2024 until 10/14/2025 End: 01-14-2026 EMG(NEURO/NI) EMG(NEURO/NI) EMG Routine Left leg pain Leg heaviness 1 Occurrences starting 01/14/2025 until 01/14/2026 [facility] Comment on above: 1 Occurrences starting 01/14/2025 until 01/14/2026 F2 gene mutations fo und [Identifier] in Blood or Tissue by Molecular genetics method Nominal F5 gene mutations fo und [Identifier] in Blood or Tissue by Molecular genetics method Nominal Homocysteine [Moles/ volume] in Serum or Plasma End: 11-25-2025 LUNG DIFFUSION CAPACITY (DLCO) LUNG DIFFUSION CAPACITY (DLCO) PFT Routine SOB (shortness of breath) Wheezing 1 Occurrences starting 10/26/2024 until 11/25/2025 [facility] Comment on above: 1 Occurrences starting 10/26/2024 until 11/25/2025 End: 11-25-2025 LUNG VOLUMES LUNG VOLUMES PFT Routine SOB (shortness of breath) Wheezing 1 Occurrences starting 10/26/2024 until 11/25/2025 [facility] Comment on above: 1 Occurrences starting 10/26/2024 until 11/25/2025 Lupus anticoagulant assay, platelet neutralization method Lupus anticoagulant screening test End: 01-23-2024 CINDY SCREENING CINDY SCREENING Radiology Routine Encounter for screening mammogram for breast cancer 1 Occurrences starting 12/24/2022 until 01/23/2024 [facility] Work Phone: Comment on above: 1 Occurrences starting 12/24/2022 until 01/23/2024 End: 07-02-2024 CINDY SCREENING CINDY SCREENING Radiology Routine Encounter for screening mammogram for malignant neoplasm of breast 1 Occurrences starting 06/03/2023 until 07/02/2024 [facility] Work Phone: Comment on above: 1 Occurrences starting 06/03/2023 until 07/02/2024 End: 11-19-2024 MG Breast - right Diagnostic for implant CINDY DIAGNOSTIC RIGHT Radiology Routine Abnormal mammogram of right breast 1 Occurrences starting 10/21/2023 until 11/19/2024 [facility] Work Phone: Comment on above: 1 Occurrences starting 10/21/2023 until 11/19/2024 Microscopic observat ion [Identifier] in Vaginal fluid by Gram stain BACT/DENISE VAG GRAM STAIN Microbiology Routine Postcoital bleeding Vaginal discharge Ordered: 02/12/2022 [facility] Work Phone: Comment on above: Ordered: 02/12/2022 Path report.final Dx Spec [facility] Patient Education ED Chest Pain, Uncertain Cause ED Dyspnea Work Phone: Patient referral [facility] Work Phone: PELVIC US WHI PELVIC US WHI An c Imaging Routine Pain due to intrauterine contraceptive device (IUD), initial encounter (HCC) Postcoital bleeding Ordered: 02/12/2022 [facility] Work Phone: Comment on above: Ordered: 02/12/2022 Plasma plasminogen activity Protein C [Units/vol ume] in Platelet poor plasma by Coagulation assay Protein S Free Ag actual/normal in Platelet poor plasma by Immunoassay Prothrombin time [facility] End: 11-25-2025 SPIROMETRY - BASELINE AND POST DILATOR SPIROMETRY - BASELINE AND POST DILATOR PFT Routine SOB (shortness of breath) Wheezing 1 Occurrences starting 10/26/2024 until 11/25/2025 [facility] Work Phone: Comment on above: 1 Occurrences starting 10/26/2024 until 11/25/2025 End: 11-19-2024 US Breast - right limited US BREAST LTD RIGHT Radiology Routine Abnormal mammogram of right breast 1 Occurrences starting 10/21/2023 until 11/19/2024 [facility] Work Phone: Comment on above: 1 Occurrences starting 10/21/2023 until 11/19/2024 US Pelvis [facility] US Pelvis transvaginal [facility] End: 02-13-2026 XR Knee - left 4 Views XR KNEE GENERAL 4V AP BOTH/PA BOTH/LAT/MERC LEFT Radiology Routine Left leg pain Leg heaviness 1 Occurrences starting 01/14/2025 until 02/13/2026 [facility] Work Phone: Comment on above: 1 Occurrences starting 01/14/2025 until 02/13/2026 End: 02-13-2026 XR Lumbar spine 3 Views XR LUMBAR GENERAL 3V AP/LAT/L5-S1 Radiology Routine Left leg pain Leg heaviness 1 Occurrences starting 01/14/2025 until 02/13/2026 [facility] Comment on above: 1 Occurrences starting 01/14/2025 until 02/13/2026 End: 02-13-2026 XR Pelvis and Hip - left AP and Lateral frog XR HIP GENERAL 3V PELV/AP/LAT LEFT Radiology Routine Left leg pain Leg heaviness 1 Occurrences starting 01/14/2025 until 02/13/2026 [facility] Comment on above: 1 Occurrences starting 01/14/2025 until 02/13/[address] [facility] Immunizations Immunization Date Immunization Notes Care Provider [facility] 06-17-2024 influenza, seasonal, injectable, preservative free Dr. Hilton Doty DO Work Phone: 06-17-2024 influenza virus vaccine, unspecified formulation Hilton Doty DO Work Phone: [facility] 06-03-2023 influenza, injectabl e, quadrivalent, contains preservative Hilton Doty DO Work Phone: [facility] Work Phone: 06-03-2023 influenza virus vaccine, unspecified formulation Doris Mendez [employer]ER.[employer]PER[employer] Work Phone: [facility] 04-08-2023 Hepatitis B vaccine (recombinant), CpG adjuvanted Dr. Hilton Doty Work Phone: 03-04-2023 Hepatitis B vaccine (recombinant), CpG adjuvanted Dr. Hilton Doty Work Phone: 04-12-2021 influenza, injectabl e, quadrivalent, contains preservative Ale Conner MD Work Phone: [facility] Work Phone: 04-12-2021 influenza virus vaccine, unspecified formulation Priscilla Junior MD Work Phone: [facility] 02-27-2021 Covid (Moderna) Dr. Hilton nunez Work Phone: 01-30-2021 COVID-19 vaccine, fu ll dose (MODERNA) Ale Conner MD Work Phone: [facility] 07-15-2019 influenza, injectabl e, quadrivalent, contains preservative Ale Conner MD Work Phone: [facility] Work Phone: 04-22-2017 influenza, seasonal, injectable Ale Conner MD Work Phone: [facility] Work Phone: 05-14-2015 influenza, seasonal, injectable Ale Conner MD Work Phone: [facility] Work Phone: 01-24-2015 tetanus toxoid, reduced diphtheria toxoid, and acellular pertussis vaccine, adsorbed Ale Conner MD Work Phone: [facility] Work Phone: Payers Date Payer Category Payer Self-pay [id number] 2023 Unknown [id number] 2023 Private Health Insurance [id number] 2022 Private Health Insurance [id number] 2022 Unknown [employer] PPO [id number] 2022-Present [phone] [address] [place] [address] PPO [id number] 2021 Unknown [employer] [place] [employer]ED [id number] 2021-Present [phone] [address] [place] [address] PPO [id number] 2020 Private Health Insurance [facility] UMR CHOICE PLUS [id number] 2020-Present [phone] [address] [address] [place] [address] HMO [id number] 2014 Private Health Insurance [id number] Unknown [facility] [id number] Unknown [facility] [place] [id number] Unknown [id number]. 462 Unknown [id number] 840.1.746640.3.579.2. 462 Unknown [id number] .840.1.220665.3.579.2. 462 Unknown [id number] 2.840.1.999387.3.579.2. 462 Unknown [id number] 2.840.1.608750.3.579.2. 462 Unknown [id number] .840.1.375993.3.579.2. 462 Unknown [id number] 2.16.840.1.979788.3.579.2. 462 Unknown [id number] 2.16.840.1.240326.3.579.2. 462 Unknown [id number] 2.16.840.1.610506.3.579.2. 462 Unknown [id number] 2.16.840.1.980724.3.579.2. 462 Unknown [id number] 2.16.840.1.571777.3.579.2. 462 Unknown [id number] 2.16840.1.793001.3.579.2. 462 Unknown [id number] 2.16.840.1.837146.3.579.2. 462 Unknown [id number] 2.16840.1.633989.3.579.2. 462 Unknown [id number] 2.16840.1.239757.3.579.2. 462 Unknown [id number] 2.16840.1.983658.3.579.2. 462 Unknown [id number] 2.16840.1.438970.3.579.2. 462 Unknown [id number] 2.16840.1.336080.3.579.2. 462 Unknown [id number] 2.16840.1.209694.3.579.2. 462 Unknown [id number] 2.16840.1.443554.3.579.2. 462 Unknown [id number] 2.16840.1.594448.3.579.2. 462 Unknown [id number] 2.16840.1.388558.3.579.2. 462 Unknown [id number] 2.16840.1.496841.3.579.2. 462 Unknown [id number] 2.16.840.1.601147.3.579.2. 462 Unknown [id number] 2.16.840.1.159636.3.579.2. 462 Unknown [id number] 2.16.840.1.200956.3.579.2. 462 Unknown [id number] 2.16.840.1.954946.3.579.2. 462 Unknown [id number] 2.16.840.1.208102.3.579.2. 462 Unknown [id number] 2.16.840.1.074362.3.579.2. 462 Unknown [id number] 2.16.840.1.098969.3.579.2. 462 Unknown [id number] 2.16.840.1.060014.3.579.2. 462 Unknown [id number] 2.16.840.1.193228.3.579.2. 462 Unknown [id number] 2.16.840.1.379317.3.579.2. 462 Unknown [id number] 2.16.840.1.780355.3.579.2. 462 Unknown [id number] 2.16.840.1.677217.3.579.2. 462 Unknown [id number] 2.16.840.1.779891.3.579.2. 462 Unknown [id number] 2.16.840.1.123647.3.579.2. 462 Unknown [id number] 2.16.840.1.522845.3.579.2. 462 Unknown [id number] 2.16.840.1.675942.3.579.2. 462 Unknown [id number] 2.16.840.1.036428.3.579.2. 462 Social History Date Type Detail Facility Start: 08-30-2013 End: 08-21-2014 Tobacco smoking status ILIS Never smoked tobacco [facility] Work Phone: Start: 08-30-2013 End: 08-21-2014 Tobacco use and exposure Smokeless tobacco non-user [facility] Work Phone: Start: 10-05-2021 End: 03-13-2025 Alcohol intake Current drinker of alcohol (finding) [facility] Start: 08-21-2014 History SDOH Alcohol Comment occ [facility] Start: 01-04-2021 Education 13 [facility] Start: 1980 Sex Assigned At Not on file [facility] Start: 01-10-2022 End: 04-23-2022 Exposure to SARS-CoV-2 (event) Not sure [facility] Work Phone: Start: 03-02-2023 End: 02-08-2024 History of Social function [facility] Work Phone: Start: 03-02-2023 End: 02-08-2024 Tobacco use panel [facility] Work Phone: Start: 07-04-2012 Adult Depression Screening Assessment 0 [facility] Work Phone: Start: 06-11-2023 End: 10-14-2023 Tobacco smoking status ILIS Unknown if ever smoked Start: 03-12-[address] [facility] Start: 03-12-[address] [facility] Start: 03-12-2020 Spouse/ Signif icant Other;With Family Start: 1980 Sex Assigned At Female W [facility] Has the electric, gas, oil, or water company threatened to shut off services in your home in past 12Mo No [facility] Are you now , , , , never or living with a partner? [facility] How often to you hav e a drink containing alcohol? Never [facility] How often do you hav e 6 or more drinks on 1 occasion? Less than monthly [facility] Do you feel stress - tense, restless, nervous, or anxious, or unable to sleep at night because your mind is troubled all the time - these days [OSQ] To some extent [facility] (I/We) worried whether (my/our) food would run out before (I/we) got money to buy more. Never true [facility] Start: 04-04-2024 End: 05-04-2025 Tobacco smoking status NHIS Ex-smoker (finding) Start: 10-06-2024 End: 11-14-2024 Sex Female (finding) NEGATED: Highlighted row Functional Status Date Assessment Result Facility 01-24-2015 Are you deaf, or do you have serious difficulty hearing No 01/24/2015 1:02 PM EDT Char Valencia LPN No [facility] 01-24-2015 Are you blind, or do you have serious difficulty seeing, even when wearing glasses No 01/24/2015 1:02 PM EDT Char Valencia LPN No [facility] 01-24-2015 Do you have serious difficulty walking or climbing stairs No 01/24/2015 1:02 PM EDT Char Valencia LPN No [facility] 01-24-2015 Do you have difficul ty dressing or bathing No 01/24/2015 1:02 PM EDT Char Valencia LPN No [facility] 01-24-2015 Because of a physica l, mental, or emotional condition, do you have difficulty doing errands alone such as visiting a physician's office or shopping No 01/24/2015 1:02 PM EDT Char Valencia LPN No [facility] Mental Status Date Assessment Result Facility 09-29-2023 Cognitive function Voice/Name [facility] Work Phone: 01-24-2015 Because of a physica l, mental, or emotional condition, do you have serious difficulty concentrating, remembering, or making decisions No 01/24/2015 1:02 PM EDT Char Valencia LPN No [facility] Clinical Notes 12-13-2021 to 05-18-2025 Note Date & Type Note Facility 05-18-2025 Progress note [facility] 05-04-2025 History and physical note Note Date/Time May 04, 2025 1:27pm [facility] System Medical Records Department [address] [place] [address] History & Physical Exam 05/04/25 1325 MR#: [id number] Acct: [id number] Name: WANDA RENYA Rep #:[id number] : 1980 45 From: Derek Barone MD PCP: Dr. Hilton Doty, DO [place] HPI - General HPI Narrative WANDA REYNA, is a 45 F who presents with venous insufficiency with pain/heaviness refractory to compression tx. She had a prior GSV ablation. She has SSV with reflux. [facility] Medical History Status post hysteroscopy COVID-19 Wears dentures Wears glasses Anxiety Rheumatoid arthritis Arthritis Kidney stones Former smoker History of edema History of ureteral stone Home Medications ?Medication ?Instructions ?Recorded ?Last Taken ?Type lorazepam 0.5 mg tablet 0.5 mg PO DAILY PRN PRN Anxi ety 03/12/20 Unknown History cholecalciferol (vitamin D3) 125 125 mcg PO DAILY 09/0409/28/23 History mcg (5,000 unit) capsule phentermine 11.25 mg-topiramate ER 1 cap PO DAILY 09/0409/28/23 12:40 History 69 mg capsule,ext.[id number] mphas (Qsymia) hydroxychloroquine 200 mg tablet 300 mg PO DAILY 09/2509/28/23 19:30 History (Plaquenil) trazodone 50 mg tablet 50 mg PO QHS 09/25/23 History naproxen 500 mg tablet (Naprosyn) 500 mg PO BID PRN pa in #20 tabs 02/05/24 Unknown Rx ondansetron 4 mg disintegrating 4 mg PO Q8H PRN PRN Na usea #10 tabs 02/05/24 Unknown Rx tablet spironolactone 50 mg tablet 50 mg PO QDAY 11/02/24 Unk nown History bupropion HCl 75 mg tablet 150 mg PO BID 12/12/24 Unkn own History fluoxetine 10 mg capsule (Prozac) 10 mg PO QDAY Unknown History spironolactone 25 mg tablet 25 mg PO QDAY 12/12/24 Unk nown History tramadol 50 mg tablet 50 mg PO Q8 PRN pain 5 Unknown History Allergy/AdvReac Type Severity Reaction Status Date / Time Penicillins (PCN) Allergy Severe Anaphylaxis Verified 03/23/25 08:38 Surgical History Status post hysteroscopic ablation of endometrium (~09/29/23) Hx of varicose vein stripping Hx of cystoscopy Hx of dilation and curettage Hx of tooth extraction History of laparoscopic cholecystectomy S/P tubal ligation Social History current occupational status: employed 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 Smoking Status: Former smoker alcohol intake: never substance use type: does not use seatbelt use: always do you feel safe at home: Yes ROS Constitutional Constitutional: Denies chills, fever(s), frequent falls, lethargy or weakness Eyes Eyes: Denies blind spots, change in vision or loss of vision ENT HEENT: Denies bleeding gums, hoarseness or sore throat Cardiovascular Cardiovascular: Denies abdominal pain, bluish discoloration of hand/feet, chest pain with activity, claudication, cold extremities, cyanosis, dyspnea on exertion, erythema on extremities, irregular heart rhythm, leg edema, leg ulcers, numbness in extremities or weakness in extremities Respiratory/Chest Respiratory/Chest: Denies cough, excessive phlegm production, shortness of breath at rest, shortness of breath with exertion or wheezing Gastrointestinal Gastrointestinal: Denies anorexia, change in stool character, constipation, diarrhea, melena or rectal bleeding Genitourinary Genitourinary: Denies dysuria or hematuria Musculoskeletal Musculoskeletal: Denies abnormal gait Integumentary Integumentary: Reports other Details: ; Denies erythema, non-healing lesions or wounds Neurologic Neurologic: Denies abnormal speech, focal weakness, headache(s), loss of vision,numbness, paresthesias or sensory deficit Hematologic/Lymphatic Hematologic/Lymphatic: Denies easy bleeding, easy bruising or lymphadenopathy Vital Signs Vital Signs Vital Signs: Weight Weight: 186 lb Body Mass Index (BMI) 29.9 Physical Exam Const alert, oriented x3, no apparent distress and healthy appearing General Appearance: cooperative; Negative for combative or lethargic Orientation / Consciousness: awake Exam Limitations: no limitations HEENT Head and Scalp: normocephalic and atraumatic Eyes EOMs intact bilaterally General Eye: normal appearance of both eyes Neck full ROM General: trachea midline Resp normal respiratory effort and no use of accessory muscles Effort and Inspection: Negative for labored, stridor or audible wheezes Cardio regular rate and regular rhythm Back/Spine Cervical Spine: cervical ROM normal Extremity full ROM, normal capillary refill and no clubbing, cyanosis or edema Skin no rashes or lesions noted and no wounds Neuro oriented x3, CN's II-XII intact bilaterally, no focal motor deficits and no sensory deficits noted Psych thought process normal, cooperative, affect normal, speech normal and activity/motor behavior normal Assessment & Plan Assessment/Plan (1) Venous insufficiency: PLAN: -foam ablation left SSV 05/04/25 1327 <Electronically signed by Derek Barone MD> Cosigner Signature (if applicable): CC: Dr. Derek Barone MD; Dr. Hilton Doty DO~ Signed Work Phone: [phone]) 973-420110-02-2025 History and physical note [facility] Medical Records Department [address] [place] [id number] History & Physical Exam 05/04/25 1325 MR#: [id number] Acct: [id number] Name: WANDA REYNA Rep #:[id number] : 1980 45 From: Derek Barone MD PCP: Dr. Hilton Doty DO Status:[facility] Location: [facility] HPI - General HPI Narrative WANDA REYNA, is a 45 F who presents with venous insufficiency with pain/heaviness refractory to compression tx. She had a prior GSV ablation. She has SSV with reflux. [facility] Medical History Status post hysteroscopy COVID-19 Wears dentures Wears glasses Anxiety Rheumatoid arthritis Arthritis Kidney stones Former smoker History of edema History of ureteral stone Home Medications ?Medication ?Instructions ?Recorded ?Last Taken ?Type lorazepam 0.5 mg tablet 0.5 mg PO DAILY PRN PRN Anxi ety 03/12/20 Unknown History cholecalciferol (vitamin D3) 125 125 mcg PO DAILY 09/0409/28/23 History mcg (5,000 unit) capsule phentermine 11.25 mg-topiramate ER 1 cap PO DAILY 09/0409/28/23 12:40 History 69 mg capsule,ext.[id number] mphas (Qsymia) hydroxychloroquine 200 mg tablet 300 mg PO DAILY 09/2509/28/23 19:30 History (Plaquenil) trazodone 50 mg tablet 50 mg PO QHS 09/25/23 History naproxen 500 mg tablet (Naprosyn) 500 mg PO BID PRN pa in #20 tabs 02/05/24 Unknown Rx ondansetron 4 mg disintegrating 4 mg PO Q8H PRN PRN Na usea #10 tabs 02/05/24 Unknown Rx tablet spironolactone 50 mg tablet 50 mg PO QDAY 11/02/24 Unk nown History bupropion HCl 75 mg tablet 150 mg PO BID 12/12/24 Unkn own History fluoxetine 10 mg capsule (Prozac) 10 mg PO QDAY Unknown History spironolactone 25 mg tablet 25 mg PO QDAY 12/12/24 Unk nown History tramadol 50 mg tablet 50 mg PO Q8 PRN pain 5 Unknown History Allergy/AdvReac Type Severity Reaction Status Date / Time Penicillins (PCN) Allergy Severe Anaphylaxis Verified 03/23/25 08:38 Surgical History Status post hysteroscopic ablation of endometrium (~09/29/23) Hx of varicose vein stripping Hx of cystoscopy Hx of dilation and curettage Hx of tooth extraction History of laparoscopic cholecystectomy S/P tubal ligation Social History current occupational status: employed 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 Smoking Status: Former smoker alcohol intake: never substance use type: does not use seatbelt use: always do you feel safe at home: Yes ROS Constitutional Constitutional: Denies chills, fever(s), frequent falls, lethargy or weakness Eyes Eyes: Denies blind spots, change in vision or loss of vision ENT HEENT: Denies bleeding gums, hoarseness or sore throat Cardiovascular Cardiovascular: Denies abdominal pain, bluish discoloration of hand/feet, chest pain with activity,claudication, cold extremities, cyanosis, dyspnea on exertion, erythema on extremities, irregular heart rhythm, leg edema, leg ulcers, numbness in extremities or weakness in extremities Respiratory/Chest Respiratory/Chest: Denies cough, excessive phlegm production, shortness of breath at rest, shortness of breath with exertion or wheezing Gastrointestinal Gastrointestinal: Denies anorexia, change in stool character, constipation, diarrhea, melena or rectal bleeding Genitourinary Genitourinary: Denies dysuria or hematuria Musculoskeletal Musculoskeletal: Denies abnormal gait Integumentary Integumentary: Reports other Details: ; Denies erythema, non-healing lesions or wounds Neurologic Neurologic: Denies abnormal speech, focal weakness, headache(s), loss of vision,numbness, paresthesias or sensory deficit Hematologic/Lymphatic Hematologic/Lymphatic: Denies easy bleeding, easy bruising or lymphadenopathy Vital Signs Vital Signs Vital Signs: Weight Weight: 186 lb Body Mass Index (BMI) 29.9 Physical Exam Const alert, oriented x3, no apparent distress and healthy appearing General Appearance: cooperative; Negative for combative or lethargic Orientation / Consciousness: awake Exam Limitations: no limitations HEENT Head and Scalp: normocephalic and atraumatic Eyes EOMs intact bilaterally General Eye: normal appearance of both eyes Neck full ROM General: trachea midline Resp normal respiratory effort and no use of accessory muscles Effort and Inspection: Negative for labored, stridor or audible wheezes Cardio regular rate and regular rhythm Back/Spine Cervical Spine: cervical ROM normal Extremity full ROM, normal capillary refill and no clubbing, cyanosis or edema Skin no rashes or lesions noted and no wounds Neuro oriented x3, CN's II-XII intact bilaterally, no focal motor deficits and no sensory deficits noted Psych thought process normal, cooperative, affect normal, speech normal and activity/motor behavior normal Assessment & Plan Assessment/Plan (1) Venous insufficiency: PLAN: -foam ablation left SSV 05/04/25 1327 Cosigner Signature (if applicable): CC: Dr. Derek Barone MD; Dr. Hilton Doty DO~ Signed 10-02-2025 [facility] Medical Records Department [address] [place] [address] History Physical Exam 05/04/25 1325 MR#: [id number] Acct: [id number] Name: WANDA REYNA Rep #: [id number] : 1980 45 From: Derek Barone MD PCP: Dr. Hilton Doty, DO [place] [place] [facility] HPI - General HPI Narrative WANDA REYNA, is a 45 F who presents with venous insufficiency with pain/heaviness refractory to compression tx. She had a prior GSV ablation. She has SSV with reflux. [facility] Medical History Status post hysteroscopy COVID-19 Wears dentures Wears glasses Anxiety Rheumatoid arthritis Arthritis Kidney stones Former smoker History of edema History of ureteral stone Home Medications ???Medication ???Instructions ???Recorded ???Last Taken ???Type lorazepam 0.5 mg tablet 0.5 mg PO DAILY PRN PRN Anxiety Unknown History cholecalciferol (vitamin D3) 125 125 mcg PO DAILY 09/24/23 09/28/23 History mcg (5,000 unit) capsule phentermine 11.25 mg-topiramate ER 1 cap PO DAILY 09/24/23 09/28/23 12:40 History 69 mg capsule,ext.[id number] mphas (Qsymia) hydroxychloroquine 200 mg tablet 300 mg PO DAILY 09/25/23 09/28/23 19:30 History (Plaquenil) trazodone 50 mg tablet 50 mg PO QHS 09/25/23 09/27/23 His tory naproxen 500 mg tablet (Naprosyn) 500 mg PO BID PRN pain #20 tabs 0 02/05/24 Unknown Rx ondansetron 4 mg disintegrating 4 mg PO Q8H PRN PRN Nausea #10 tab s 02/05/24 Unknown Rx tablet spironolactone 50 mg tablet 50 mg PO QDAY 11/02/24 Unknown His tory bupropion HCl 75 mg tablet 150 mg PO BID 12/12/24 Unknown His tory fluoxetine 10 mg capsule (Prozac) 10 mg PO QDAY 12/12/24 Unknown Hi story spironolactone 25 mg tablet 25 mg PO QDAY 12/12/24 Unknown His tory tramadol 50 mg tablet 50 mg PO Q8 PRN pain 02/06/25 Unkn own History Allergy/AdvReac Type Severity Reaction Status Date / Time Penicillins (PCN) Allergy Severe Anaphylaxis Verified 03/23/25 08:38 Surgical History Status post hysteroscopic ablation of endometrium ( 09/29/23) Hx of varicose vein stripping Hx of cystoscopy Hx of dilation and curettage Hx of tooth extraction History of laparoscopic cholecystectomy S/P tubal ligation Social History current occupational status: employed 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 Smoking Status: Former smoker alcohol intake: never substance use type: does not use seatbelt use: always do you feel safe at home: Yes ROS Constitutional Constitutional: Denies chills, fever(s), frequent falls, lethargy or weakness Eyes Eyes: Denies blind spots, change in vision or loss of vision ENT HEENT: Denies bleeding gums, hoarseness or sore throat Cardiovascular Cardiovascular: Denies abdominal pain, bluish discoloration of hand/feet, chest pain with activity, claudication, cold extremities, cyanosis, dyspnea on exertion, erythema on extremities, irregular heart rhythm, leg edema, leg ulcers, numbness in extremities or weakness in extremities Respiratory/Chest Respiratory/Chest: Denies cough, excessive phlegm production, shortness of breath at rest, shortness of breath with exertion or wheezing Gastrointestinal Gastrointestinal: Denies anorexia, change in stool character, constipation, diarrhea, melena or rectal bleeding Genitourinary Genitourinary: Denies dysuria or hematuria Musculoskeletal Musculoskeletal: Denies abnormal gait Integumentary Integumentary: Reports other Details: ; Denies erythema, non-healing lesions or wounds Neurologic Neurologic: Denies abnormal speech, focal weakness, headache(s), loss of vision, numbness, paresthesias or sensory deficit Hematologic/Lymphatic Hematologic/Lymphatic: Denies easy bleeding, easy bruising or lymphadenopathy Vital Signs Vital Signs Vital Signs: Weight Weight: 186 lb Body Mass Index (BMI) 29.9 Physical Exam Const alert, oriented x3, no apparent distress and healthy appearing General Appearance: cooperative; Negative for combative or lethargic Orientation / Consciousness: awake Exam Limitations: no limitations HEENT Head and Scalp: normocephalic and atraumatic Eyes EOMs intact bilaterally General Eye: normal appearance of both eyes Neck full ROM General: trachea midline Resp normal respiratory effort and no use of accessory muscles Effort and Inspection: Negative for labored, stridor or audible wheezes Cardio regular rate and regular rhythm Back/Spine Cervical Spine: cervical ROM normal Extremity full ROM, normal capillary refill and no clubbing, cyanosis or edema Skin no rashes or lesions noted and no wounds Neuro (more content not included)...09-09-2025 NotePatient Outreach (FAMPWS) WANDA REYNA ([id number]) 1980 F Date Time Provider Department 04/11/25 HILTON DOTY FAMPWS During your visit today, we recorded the following information about you: Allergies As of Date: 04/11/2025 Noted Allergy Reaction PENICILLINS 08/30/2013 16 - Unknown Date Reviewed: 03/13/2025 Reviewed by: Char Valencia LPN - Fully Assessed Visit Diagnosis:Encounter for screening mammogram for breast cancer [Z12.31] Order(s):[facility] SCRE[facility] [[id number]] Order #: [id number] FUTURE Prescriptions as of 05/12/2025 - spironolactone (ALDACTONE) 50 mg tablet Take 1 tablet by mouth once daily. - traZODone (DESYREL) 50 mg tablet Take 1-2 tablets by mouth daily at bedtime. - phentermine-topiramate ER (QSYMIA) 11.25-69 mg 24 Hr Capsule Take 1 capsule by mouth once daily for 90 days. BMI 31.32 - buPROPion (WELLBUTRIN) 75 mg tablet Take 2 tablets in the AM and 2 tablet in the afternoon - FLUoxetine (PROZAC) 10 mg capsule Take 1 capsule by mouth once daily. - hydrOXYchloroQUINE (PLAQUENIL) 200 mg tablet Take 1 tablet by mouth once daily. - hydrocortisone 2.5 % cream Apply 1 application to affected area two times a day as needed (hemorrhoids). Location: hemorrhoids - albuterol HFA (PROVENTIL HFA, VENTOLIN HFA) 90 mcg/actuation inhaler Inhale 2 Puffs as instructed every 4 hours as needed for wheezing/shortness of breath. - naproxen (NAPROSYN) 500 mg tablet Take 1 tablet by mouth two times a day as needed (for pain/inflammation). Take with food. - Cholecalciferol, Vitamin D3, 2,000 unit cap Take 2 tablets by mouth once daily. Problem List As Of Date 04/11/2025 Noted Resolved Varicose veins of both legs [...] [R06.02] 04/25/2024 Hypokalemia [E87.6] 04/25/2024 Inflammatory arthritis [M13.80] 04/25/2024 Perimenopausal symptoms [N95.1] 08/02/2024 Left leg pain [M79.605] 01/17/2025 Leg heaviness [R29.898] 01/17/2025 Encounter Status:Closed by JAMEY, PRODUSER on 05/12/25[facility] 03-31-2025 Telephone encounter Note* Telephone Encounter - Rox Villarreal RN - 03/31/2025 4:40 PM EDT Pt read Grows Up msg with Dr. Doty's response. Last read by Wanda Reyna at 12:11PM on 03/31/2025. [facility]08-29-2025 Miscellaneous Notes* Telephone Encounter - Rox Villarreal RN - 03/31/2025 4:40 PM EDT Pt read Grows Up msg with Dr. Doty's response. Last read by Wanda Reyna at 12:11PM on 03/31/2025. * Telephone Encounter - Hilton Doty DO - 03/29/2025 8:05 PM EDT From the testing that I can currently see, the clotting labs seem to be normal. Unsure if all are resulted and received yet. Hilton Doty DO * Telephone Encounter - Lissa Cedillo RN - 03/29/2025 12:15 PM EDT Pt called in and repots Dr Rai had the Hypercog diagnostic panel redrawn. She states she just leftmedical records and they should be sending it to providers office today. She states aside from thatlad and the sed rate, and c-reactive protein there were 19 other labs in her [facility] portal. I told Vaibhav wasn't sure if those was all from the panel or not. She states one of them was Lupus and Dr Rai had told her that one looked good. Please watch for this panel and call and advise Pt. Lissa Cedillo RN * Telephone Encounter - Rox Villarreal RN - 03/29/2025 10:19 AM EDT LM for pt stating we have not received Hypercoag diag panel yet so asked pt to check to see if [facility] davon this test and if completed, please fax to Dr. Doty at [phone]. * Telephone Encounter - Rox Villarreal RN - 03/29/2025 10:15 AM EDT Images from the original note were not included. * Telephone Encounter - Rox Villarreal RN - 03/29/2025 10:13 AM EDT Images from the original note were not included. * Telephone Encounter - Lissa Cedillo RN - 03/27/2025 7:50 PM EDT Pt called and is notified of providers message. Pt voices understanding. 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 The the Pt was asking if the providercould go over the lab work she had done 03/13/25. I let her know all we have is the c-reactive protein and sedimentation rate. Pt states she had other genetic testing done, but she said some had to jamie-done. Please call and advise. Lissa Cedillo RN * Telephone Encounter - Lissa Cedillo RN - 03/27/2025 7:22 PM EDT Called and left a voicemail for the Patient to call back and ask for a nurse to receive the providers message. Lissa Cedillo RN * Telephone Encounter - Hilton Doty DO - 03/27/2025 4:39 PM EDT Please let her know that this isn't an eye ointment I can prescribed due to the steroids and antibiotic nature of the medication- needs to be from eye doctor please Hilton Doty DO * Telephone Encounter - Lois Rod MA - 03/17/2025 7:42 AM EDT 1) Regarding cream per pt's eTutorhart msgs below: The cream refill I thing I talked with you about need refill is Neomycin and polymyxin B and sulfate and dexamethasone ophthalmic ointment assisted sterile Thanks It is an eye ointment my eye doctor Dr. Genao had filled it before and Dr. Doty said to send her a message what it was called and she could send it in for me. (BR RN) 2) Another MyChart msg pt sent last evening the : When I called and talked to nurse at [facility] other night I had said that about they had said Your provider reached out to us. Then when I got off phone with [facility] nurse I listened to the message again but worker from Abisai s office was talking avril fast, after listening to it again they said they talked to their provider and didn t know why I was coming in due to Abisai already went over stuff with me. Sorry for the miss communication on my part. Is Dr. Doty still going to reach out to [facility]? I didn t reach out to schedule due to they have been closed when I get off work hoping to be able to call Thursday since I m off work. Is Dr. Doty wanting to talk with Abisai first before I schedule an appt? Just wanted to touch base on this. Thank you * Telephone Encounter - Hilton Doty DO - 03/17/2025 7:11 AM EDT What ointment? Hilton Doty DO * Telephone Encounter - Lois Rod MA - 03/16/2025 7:59 AM EDT Images from the original note were not included. Pt informed via [employer] message. Please see additional message from patient regarding ointment. KH 03/15/25 10:03 PM It is an eye ointment my eye doctor Dr. Genao had filled it before and Dr. Doty said to send her a message what it was called and she could send it in for me. Thank you and sorry I didn t explainthings more clearly. Thank you for all your help and getting back to me. * Telephone Encounter - Hilton Doty DO - 03/15/2025 9:13 PM EDT Please let her know that I haven't spoke to Dr. Barone or anyone in his office at all since I have seen her. I am not sure what the office is suggesting or recommending for her. I haven't had communication with their office Hilton Doty DO * Telephone Encounter - Rox Villarreal RN - 03/15/2025 8:22 PM EDT Pt calling in to follow up with Dr. Doty after her appt on Thursday. Pt wanting to know if Dr. Doty contacted her vascular doctor and if so, what did they talk about. Pt received a voicemail today from Dr. Barone's office calling to say they spoke with her provider and they want to set up an appt with the nurse practitioner to go over the ablation. Pt thought that Dr. Doty wanted pt to see Dr. Barone only and not the nurse practitioner because she feels her pain is more severe and maybe she needs a stent. Pt just wondering what to expect when she calls Dr. Barone's office back. On review of chart, pt sent the following Melodiet msg after she called in and spoke with nurse: Wanda Reyna to [facility] (supporting Hilton Doty, ) 03/15/25 7:22 PM I called this afternoon spoke with one of [facility] nurse I think I confused her my anxiety was bad today. Called vascular yesterday left vm about scheduling appt. I thought when vascular called today and left vm they meant my provider family doctor called them and they didn t know why I wanted to come in due to Dr Barone already talked to me about ablation. But they went after talking with their provider they could get me in with Laura on the this month. Wasn t able to call vascular back busy work day. Haven t heard back from you yet didn t know if nurse or you had got to talk with him yet. I know he did say he wants to try foam and possibly down road if that didn t help he would look at maybe doing stunt but he is really against due to reasons I went over with you and if it fails it can also cause more pain for me. I m so ready to have some relieve. I appreciate you verymuch and all you do ! The cream refill I thing I talked with you about need refill is Neomycin and polymyxin B and sulfate and dexamethasone ophthalmic ointment assisted sterile Thanks (Sent MyChart msg back to pt for further clarification on what cream she is asking for a refill for as none show up in past med hx). [facility] in [facility] Telephone encounter Note * Telephone Encounter - Hilton Doty DO - 03/29/2025 8:05 PM EDT From the testing that I can currently see, the clotting labs seem to be normal. Unsure if all are resulted and received yet. Hilton Doty DO [facility]08-27-2025 Telephone encounter Note* Telephone Encounter - Lissa Cedillo RN - 03/29/2025 12:15 PM EDT Pt called in and repots Dr Rai had the Hyperc[facility] diagnostic panel redrawn. She states she just leftmedical records and they should be sending it to providers office today. She states aside from thatlad and the sed rate, and c-reactive protein there were 19 other labs in her [facility] portal. I told Vaibhav wasn't sure if those was all from the panel or not. She states one of them was Lupus and Dr Rai had told her that one looked good. Please watch for this panel and call and advise Pt. Lissa Cedillo RN [facility]08-27-2025 Telephone encounter Note* Telephone Encounter - Rox Villarreal RN - 03/29/2025 10:19 AM EDT LM for pt stating we have not received Hypercoag diag panel yet so asked pt to check to see if [facility] davon this test and if completed, please fax to Dr. Doty at [phone]. [facility]08-27-2025 Telephone encounter Note* Telephone Encounter - Rox Villarreal RN - 03/29/2025 10:15 AM EDT Images from the original note were not included. T [facility]08-27-2025 Telephone encounter Note* Telephone Encounter - Rox Villarreal RN - 03/29/2025 10:13 AM EDT Images from the original note were not included. [facility]08-25-2025 Telephone encounter Note* Telephone Encounter - Lissa Cedillo RN - 03/27/2025 7:50 PM EDT Pt called and is notified of providers message. Pt voices understanding. 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 The the Pt was asking if the providercould go over the lab work she had done 03/13/25. I let her know all we have is the c-reactive protein and sedimentation rate. Pt states she had other genetic testing done, but she said some had to jamie-done. Please call and advise. Lissa Cedillo RN T [facility]08-25-2025 Telephone encounter Note* Telephone Encounter - Lissa Cedillo RN - 03/27/2025 7:22 PM EDT Called and left a voicemail for the Patient to call back and ask for a nurse to receive the providers message. Lissa Cedillo RN [facility]08-25-2025 Telephone encounter Note* Telephone Encounter - Hilton Doty DO - 03/27/2025 4:39 PM EDT Please let her know that this isn't an eye ointment I can prescribed due to the steroids and antibiotic nature of the medication- needs to be from eye doctor please Hilton Doty DO [facility]08-15-2025 Telephone encounter Note* Telephone Encounter - Catina Austin LPN - 03/17/2025 3:55 PM EDT Pt notified via my chart. [facility]08-15-2025 Miscellaneous Notes* Telephone Encounter - Catina Austin LPN - 03/17/2025 3:55 PM EDT Pt notified via my chart. * Telephone Encounter - Catina Austin LPN - 03/15/2025 3:58 PM EDT Images from the original note were not included. Electronic PA rec'd and completed. This was denied. Note from payer: Request Reference Number: [id number]. PHENT/TOPIRA CAP . is denied due to Plan Exclusion. For further questions, call . Payer: [employer] - [employer] Electronic appeal: Not supported Appeal instructions: Appeals are not supported through ePA. Please refer to the fax case notice forappeals information and instructions. Prior auth initiated by: Catina Austin LPN View History Notes Time User Attachment Attachment received from payer. 03/15/2025 3:17 PM [facility], Rx Priorauth In Document Medication Being Authorized phentermine-topiramate ER (QSYMIA) 11.25-69 mg 24 Hr Capsule Take 1 capsule by mouth once daily for 90 days. BMI 31.32 Dispense: 30 capsule Refills: 2 Start: 03/14/2025 End: 06/12/2025 Class: Normal Diagnoses: Inflammatory polyarthropathy (HCC) [M06.4]; Obesity, Class I, BMI 30-34.9 [E66.811]; Dyslipidemia [E78.5] This order has been released to its destination. To be filled at: [facility] [address] [place] [address] [address] - [phone] documented in this encounterHol[facility] Telephone encounter Note * Telephone Encounter - Lois Rod MA - 03/17/2025 7:42 AM EDT 1) Regarding cream per pt's MyChart msgs below: The cream refill I thing I talked with you about need refill is Neomycin and polymyxin B and sulfate and dexamethasone ophthalmic ointment assisted sterile Thanks It is an eye ointment my eye doctor Dr. Genao had filled it before and Dr. Doty said to send her a message what it was called and she could send it in for me. (BR RN) 2) Another MyChart msg pt sent last evening the : When I called and talked to nurse at [facility] other night I had said that about they had said Your provider reached out to us. Then when I got off phone with [facility] nurse I listened to the message again but worker from [place] s office was talking avril fast, after listening to it again they said they talked to their provider and didn t know why I was coming in due to Abisai already went over stuff with me. Sorry for the miss communication on my part. Is Dr. Doty still going to reach out to [facility]? I didn t reach out to schedule due to they have been closed when I get off work hoping to be able to call Thursday since I m off work. Is Dr. Doty wanting to talk with [facility] first before I schedule an appt? Just wanted to touch base on this. Thank you [facility]08-15-2025 Telephone encounter Note* Telephone Encounter - Hilton Doty DO - 03/17/2025 7:11 AM EDT What ointment? Hilton Doty DO [facility]08-14-2025 Telephone encounter Note* Telephone Encounter - Lois Rod MA - 03/16/2025 7:59 AM EDT Images from the original note were not included. Pt informed via [employer] message. Please see additional message from patient regarding ointment. KH 03/15/25 10:03 PM It is an eye ointment my eye doctor Dr. Genao had filled it before and Dr. Doty said to send her a message what it was called and she could send it in for me. Thank you and sorry I didn t explainthings more clearly. Thank you for all your help and getting back to me. [facility]08-13-2025 Telephone encounter Note* Telephone Encounter - Hilton Doty DO - 03/15/2025 9:13 PM EDT Please let her know that I haven't spoke to Dr. Barone or anyone in his office at all since I have seen her. I am not sure what the office is suggesting or recommending for her. I haven't had communication with their office Hilton Doty DO [facility]08-13-2025 Telephone encounter Note* Telephone Encounter - Rox Villarreal RN - 03/15/2025 8:30 PM EDT Initial MyChart msg copied and pasted into phone note. Sent msg back to pt requesting more information on the cream she is asking to get a refill on. [facility]08-13-2025 Miscellaneous Notes* Telephone Encounter - Rox Villarreal RN - 03/15/2025 8:30 PM EDT Initial MyChart msg copied and pasted into phone note. Sent msg back to pt requesting more information on the cream she is asking to get a refill on. documented in this encounterHol[facility] Telephone encounter Note * Telephone Encounter - Rox Villarreal RN - 03/15/2025 8:22 PM EDT Pt calling in to follow up with Dr. Doty after her appt on Thursday. Pt wanting to know if Dr. Doty contacted her vascular doctor and if so, what did they talk about. Pt received a voicemail today from Dr. Barone's office calling to say they spoke with her provider and they want to set up an appt with the nurse practitioner to go over the ablation. Pt thought that Dr. Doty wanted pt to see Dr. Barone only and not the nurse practitioner because she feels her pain is more severe and maybe she needs a stent. Pt just wondering what to expect when she calls Dr. Barone's office back. On review of chart, pt sent the following MyChart msg after she called in and spoke with nurse: Wanda masters [facility] Clinical Pool (supporting Hilton Doty DO) 03/15/25 7:22 PM I called this afternoon spoke with one of [facility] nurse I think I confused her my anxiety was bad today. Called vascular yesterday left vm about scheduling appt. I thought when vascular called today and left vm they meant my provider family doctor called them and they didn t know why I wanted to come in due to Dr Barone already talked to me about ablation. But they went after talking with their provider they could get me in with Laura on the this month. Wasn t able to call vascular back busy work day. Haven t heard back from you yet didn t know if nurse or you had got to talk with him yet. I know he did say he wants to try foam and possibly down road if that didn t help he would look at maybe doing stunt but he is really against due to reasons I went over with you and if it fails it can also cause more pain for me. I m so ready to have some relieve. I appreciate you verymuch and all you do ! The cream refill I thing I talked with you about need refill is Neomycin and polymyxin B and sulfate and dexamethasone ophthalmic ointment assisted sterile Thanks (Sent Nemesiohart msg back to pt for further clarification on what cream she is asking for a refill for as none show up in past med hx). [facility]08-13-2025 Telephone encounter Note* Telephone Encounter - Catina Austin LPN - 03/15/2025 3:58 PM EDT Images from the original note were not included. Electronic PA rec'd and completed. This was denied. Note from payer: Request Reference Number: [id number]. PHENT/TOPIRA CAP 11.25- 69 is denied due to Plan Exclusion. For further questions, call . Payer: [employer] - [employer] Electronic appeal: Not supported Appeal instructions: Appeals are not supported through ePA. Please refer to the fax case notice forappeals information and instructions. Prior auth initiated by: Catina Austin LPN View History Notes Time User Attachment Attachment received from payer. 03/15/2025 3:17 PM [facility], Rx Priorauth In Document Medication Being Authorized phentermine-topiramate ER (QSYMIA) 11.25-69 mg 24 Hr Capsule Take 1 capsule by mouth once daily for 90 days. BMI 31.32 Dispense: 30 capsule Refills: 2 Start: 03/14/2025 End: 06/12/2025 Class: Normal Diagnoses: Inflammatory polyarthropathy (HCC) [M06.4]; Obesity, Class I, BMI 30-34.9 [E66.811]; Dyslipidemia [E78.5] This order has been released to its destination. To be filled at: [facility] [address] [place] [address] [address] - [phone] [facility]08-12-2025 NoteHNO ID: [id number] Author: HILTON DOTY, DO Service: ? Author Type: Physician Type: Progress Notes Filed: 03/14/2025 12:48 Note Text: CC: Wanda Reyna is a 45 year old female who presents to the [...] Is taking plaquenil as prescribed without SE At OFFICE VISIT on 11/16/[address] chest at [facility] for her dyspnea symptoms- this testing was normal appearing on review She also had ECHOCARDIOGRAM at [facility] for her dyspnea symptoms- this testing [...] to medication. Would like to continue use At recent follow up 01/14/2025 Mood, has had some stressors but feels she is overall managing ok with support of her . Varicose veins, leg pain, left >right. Had a recent procedure IVC Venogram of her left leg veins and has a 47% compression of the left common iliac vein with otherwise vessels with no evidence of additional compression or occlusion. Hasn't had any procedure yet but has significant pain in the left leg which is affecting her walking and gait. Radiating to left knee area and left hip. Procedure was 3-4 days ago. She is struggling to fall asleep at night due to the leg discomfort Obesity, weight at 189 lbs. Knows needs to continue to work on weight loss as well. Inflammatory polyarthropathy, had recent dilated eye exam which was normal/negative. Is taking plaquenil as prescribed without SE Currently B/l leg pain, left >right lower leg, Had a recent procedure IVC Venogram of her left leg veins and has a 47% compression of the left common iliac vein with otherwise vessels with no evidence of additional compression or occlusion- performed by Dr. Barone at [facility]. Hasn't had any procedure yet to fix this concern but has significant pain in the left leg which is affecting her walking and gait. Radiating to left knee area and left hip. Procedure was 3-4 days ago. She is struggling to fall asleep at night due to the leg discomfort She is trying to wear her compression stockings daily at 20-30 mmgHg She has been recommended to have vascular lab tests to make sure no clotting risk so specialist can consider surgical intervention for her. The leg pain is affecting her quality of life. Using Tramadol as needed when her leg pain is severe. Needing rx refilled. Has good support from her and family Mood, still struggling at times to keep her mood stable due to stressors with her current health issues. ' Obesity, weight at 189 lbs. Knows needs to continue to work on weight loss as well. Taking Qsymia and weight is stable at 193 lbs PAST MEDICAL HISTORY Diagnosis Date MAXIM positive [...] AM and 2 tablet in the afternoon FLUoxetine (PROZAC) 10 mg capsule Take 1 capsule by mouth once daily. hydrOXYchloroQUINE (PLAQUENIL) 200 mg tablet Take 1 tablet (more content not included)...[facility]08-12-2025 History of Present illness Narrative* Hilton Doty, DO - 03/14/2025 12:38 PM EDT CC: Wanda Reyna is a 45 year old female who presents to the [...] Is taking plaquenil as prescribed without SE At OFFICE VISIT on 11/16/[address] chest at [facility] for her dyspnea symptoms- this testing was normal appearing on review She also had ECHOCARDIOGRAM at [facility] for her dyspnea symptoms- this testing [...] SE to medication.Would like to continue use At recent follow up 01/14/2025 Mood, has had some stressors but feels she is overall managing ok with support of her . Varicose veins, leg pain, left >right. Had a recent procedure IVC Venogram of her left leg veinsand has a 47% compression of the left common iliac vein with otherwise vessels with no evidence of additional compression or occlusion. Hasn't had any procedure yet but has significant pain in the left leg which is affecting her walking and gait. Radiating to left knee area and left hip. Procedure was 3-4 days ago. She is struggling to fall asleep at night due to the leg discomfort Obesity, weight at 189 lbs. Knows needs to continue to work on weight loss as well. Inflammatory polyarthropathy, had recent dilated eye exam which was normal/negative. Is taking plaquenil as prescribed without SE Currently B/l leg pain, left >right lower leg, Had a recent procedure IVC Venogram of her left leg veins and has a 47% compression of the left common iliac vein with otherwise vessels with no evidence of additional compression or occlusion- performed by Dr. Barone at [facility]. Hasn't had any procedure yet to fix this concern but has significant pain in the left leg which is affecting her walking and gait. Radiating to left knee area and left hip. Procedure was 3-4 days ago. She is struggling to fall asleepat night due to the leg discomfort She is trying to wear her compression stockings daily at 20-30 mmgHg She has been recommended to have vascular lab tests to make sure no clotting risk so specialist canconsider surgical intervention for her. The leg pain is affecting her quality of life. Using Tramadol as needed when her leg pain is severe. Needing rx refilled. Has good support from her and family Mood, still struggling at times to keep her mood stable due to stressors with her current health issues. ' Obesity, weight at 189 lbs. Knows needs to continue to work on weight loss as well. Taking Qsymia and weight is stable at 193 lbs PAST MEDICAL HISTORY Diagnosis Date MAXIM positive [...] AM and 2 tablet in the afternoon FLUoxetine (PROZAC) 10 mg capsule Take 1 capsule by mouth once daily. hydrOXYchloroQUINE (PLAQUENIL) 200 mg tablet Take 1 tablet by mouth once daily. hydrocortisone 2.5 % cream Apply 1 application to affected area two times a day as needed (hemorrhoids). Location: hemorrhoids spironolactone (ALDACTONE) 50 mg tablet Take 1 tablet by mouth once daily. albuterol HFA (PROVENTIL HFA, VENTOLIN HFA) 90 mcg/actuation inhaler Inhale 2 Puffs as instructed every 4 hours as needed for wheezing/shortness of breath. traZODone (DESYREL) 50 mg tablet Take 1-2 tablets by mouth daily at bedtime. naproxen (NAPROSYN) 500 mg tablet Take 1 tablet by mouth two times a day as needed (for pain/inflammation). Take with food. Cholecalciferol, Vitamin D3, 2,000 unit cap Take 2 tablets by mouth once daily. No current facility-administered medications for this visit. ALLERGIES Allergen Reactions Penicillins Unknown SOCIAL HISTORY[1] ROS: See HPI PE: BP 120/80 Pulse 60 Temp (Src) 97.8 (Right Tympanic) Resp 12 Wt 193 lb (87.5kg) LMP 03/09/2025 Gen: A&OX3, NAD, non-toxic appearing HEENT: PERRLA, EOMs intact b/l, nares without drainage, pharynx without erythema, exudate, lesions,or drainage. Uvula midline. Neck: No LAD, no thyromegaly, no meningismus. CV: RRR, no murmur Lungs: CTA b/l, no wheezing Skin: No rashes, lesions, or wounds on exposed skin. Significant varicose veins of legs, left >right leg, also with spider vein changes b/l legs Pain into left knee and left hip without obvious deformity of joint Trace to 1+ leg symmetric swelling. PDMP website checked and validated. All prescriptions have been APPROPRIATELY filled. No suspiciousactivity was identified. 03/14/2025 by Hilton Doty DO ASSESSMENT/PLAN: 1. Leg pain, bilateral - ICD9: 729.5, ICD10: M79.604, M79.605 (primary diagnosis) Labs as ordered I am concerned that this is secondary to her varicose veins/spider veins She is going to follow up with Vascular surgeon specialist Dr Barone at [facility] since she works there - C-REACTIVE PROTEIN - SEDIMENTATION RATE, WESTERGREN - HYPERCOAG DIAG PNL 2. Varicose veins of both legs with edema - ICD9: 454.8, ICD10: I83.893 Labs as ordered I am concerned that this is secondary to her varicose veins/spider veins She is going to follow up with Vascular surgeon specialist Dr Barone at [facility] since she works there - C-REACTIVE PROTEIN - SEDIMENTATION RATE, WESTERGREN - HYPERCOAG DIAG PNL 3. Inflammatory polyarthropathy (HCC) - ICD9: 714.9, ICD10: M06.4 Labs as ordered I am concerned that this leg pain is secondary to her varicose veins/spider veins She is going to follow up with Vascular surgeon specialist Dr Barone at [facility] since she works there - C-REACTIVE PROTEIN - SEDIMENTATION RATE, WESTERGREN - HYPERCOAG DIAG PNL - PHENTERMINE 11.25 MG-TOPIRAMATE ER 69 MG CAPSULE,EXT.[id number] MPHAS 4. Inflammatory arthritis - ICD9: 714.9, ICD10: M19.90 Labs as ordered I am concerned that this leg pain is secondary to her varicose veins/spider veins She is going to follow up with Vascular surgeon specialist Dr Barone at [facility] since she works there - C-REACTIVE PROTEIN - SEDIMENTATION RATE, WESTERGREN - HYPERCOAG DIAG PNL 5. Left leg pain - ICD9: 729.5, ICD10: M79.605 Labs as ordered I am concerned that this leg pain is secondary to her varicose veins/spider veins She is going to follow up with Vascular surgeon specialist Dr Barone at [facility] since she works there Ok for tramadol for severe pain only- rx sent to pharmacy, she is aware of risks and SE with medication - TRAMADOL 50 MG TABLET 6. Leg heaviness - ICD9: 729.89, ICD10: R29.898 Labs as ordered I am concerned that this leg pain is secondary to her varicose veins/spider veins She is going to follow up with Vascular surgeon specialist Dr Barone at [facility] since she works there Ok for tramadol for severe pain only- rx sent to pharmacy, she is aware of risks and SE with medication 7. Obesity, Class I, BMI 30-34.9 - ICD9: 278.00, ICD10: E66.811 Continue Qsymia Need for increased exercise as well - PHENTERMINE 11.25 MG-TOPIRAMATE ER 69 MG CAPSULE,EXT.[id number] MPHAS 8. Dyslipidemia - ICD9: 272.4, ICD10: E78.5 - Controlled - Continue current medications - Counseled on healthy diet and regular exercise - Discussed need for and benefit of weight loss. BMI 30.23 kg/(m^2) - PHENTERMINE 11.25 MG-TOPIRAMATE ER 69 MG CAPSULE,EXT.[id number] MPHAS Hilton Doty DO Return if no improvement. Follow up with Hilton Doty DO. To ER if develops chest pain, shortness of breath. Discussed risks, benefits, alternatives, and potential side effects of medications. Patient/Guardian expressed understanding and agreed with the plan. See patient instructions. Hilton Doty DO [address] [place] [address] [1] Social History Tobacco Use Smoking status: Never Smokeless tobacco: Never Vaping Use Vaping status: Never Used Substance Use Topics Alcohol use: Yes Comment: occ Drug use: No documented in this encounterCleveland [phone] Telephone encounter Note * Telephone Encounter - Winnie Monge LPN - 02/06/2025 3:49 PM EDT Prescription Refill Information The patient has been identified by name and date of : Yes Caregiver verified no other encounters exist for this prescription request: Yes Caregiver confirmed with patient/requestor that no other refills are due, in the near future, with this provider at this time: Yes The last office visit in the department: 01/14/25 Does the patient have a future office visit with this provider/department: Yes 03/20/25 Requested Prescriptions Pending Prescriptions Disp Refills buPROPion (WELLBUTRIN) 75 mg tablet 360 tablet 1 Sig: Take 2 tablets in the AM and 2 tablet in the afternoon Winnie Monge LPN February 06, 2025 3:50 PM [facility]07-07-2025 Miscellaneous Notes* Telephone Encounter - Winnie Monge LPN - 02/06/2025 3:49 PM EDT Prescription Refill Information The patient has been identified by name and date of : Yes Caregiver verified no other encounters exist for this prescription request: Yes Caregiver confirmed with patient/requestor that no other refills are due, in the near future, with this provider at this time: Yes The last office visit in the department: 01/14/25 Does the patient have a future office visit with this provider/department: Yes 03/20/25 Requested Prescriptions Pending Prescriptions Disp Refills buPROPion (WELLBUTRIN) 75 mg tablet 360 tablet 1 Sig: Take 2 tablets in the AM and 2 tablet in the afternoon Winnie Monge LPN February 06, 2025 3:50 PM documented in this encounterHolzer [facility] System[facility] Evaluation note* Diagnosis Onset Date Resolution Status Admit Date Venous insufficiency chronic February 06, 2025 12:56pm Venous insufficiency chronic 2024 8:29am Venous insufficiency chronic Octo katie 2024 11:34am Venous insufficiency chronic Octo katie 2024 11:22am Work Phone: [phone] Telephone encounter Note* Telephone Encounter - Huma Da Silva LPN - 02/06/2025 1:58 PM EDT Spoke with pt gave information provided. Pt voices understanding. [facility]07-07-2025 Miscellaneous Notes* Telephone Encounter - Huma Da Silva LPN - 02/06/2025 1:58 PM EDT Spoke with pt gave information provided. Pt voices understanding. * Telephone Encounter - Lisa Doll APRN.BUNCH TRIMMER MOLD - 02/06/2025 12:25 PM EDT EMG was normal. No evidence of peripheral neuropathy or lumbosacral radiculopathy. Thank you, Lisa Doll APRN.[employer]MER [employer] * Telephone Encounter - Ngoc Ervin RN - 02/06/2025 11:03 AM EDT Patient asking for provider to advise on her recent EMG results, when able. Pt had procedure completed at [facility]. See scanned documents 02/01/25. Ngoc Ervin RN documented in this encounterHolzer [facility] System07-[facility]25 Telephone encounter Note * Telephone Encounter - Lisa Doll APRN.[employer] TRIMMER MOLD - 02/06/2025 12:25 PM EDT EMG was normal. No evidence of peripheral neuropathy or lumbosacral radiculopathy. Thank you, Lisa Doll APRN.[employer]MER [employer]OLD [facility]07-07-2025 Telephone encounter Note* Telephone Encounter - Ngoc Ervin RN - 02/06/2025 11:03 AM EDT Patient asking for provider to advise on her recent EMG results, when able. Pt had procedure completed at [facility]. See scanned documents 02/01/25. Ngoc Ervin RN [facility]07-02-2025 Procedure note [facility] Pulmonary Services/Neurology [address] [place] [address] MR#: [id number] Acct: [id number] Name: WANDA REYNA Rep #:[id number] : 1980 44 From: Lupillo Quintero MD Referring Dr: Hilton Doty DO atus: REG CLI Location: PSN Date: 02/01/25 Sex: F C NCS and/or EMG Patient Report Ordering Doctor: Hilton Doty DATE OF SERVICE: 02/01/25 Wanda presents with complaints of heaviness and soreness in the left lower leg. Electrodiagnostic findings: Left peroneal motor nerve demonstrates normal distallatency, amplitude and conduction velocity. Left tibial motor response within normal limits. Normal tibial and peronealF?waves on the left side. Borderlineprolonged H?reflex bilaterally, Normal left sural and left superficial peroneal response. Needle EMG testing was performed in the left lower limb. All musclestested showed no evidence of denervation with normal motor unit action potentials Electrodiagnostic impression: This is a normal electrodiagnostic study of the left lower limb. There is no electrodiagnostic evidence for peripheral neuropathy or lumbosacral radiculopathy Multi Select Codes Neurology Neurology Interp Codes: 40270-28 Musc test done w/n test comp (interp) and 92256-24 Nrv cndj tst 5-6 studies (interp) 02/01/25 1028 D> Date _ Lupillo Quintero MD CC: Dr. Lupillo Quintero MD; Dr. Hilton Doty DO ~ Date Dictated: 02/01/25 1026 Date Transcribed: 02/01/25 102 [place] [place]: JAI Ortiz 06-17-2025 NoteHNO ID: [id number] Author: HILTON DOTY DO Service: ? Author Type: Physician Type: Progress Notes Filed: 01/17/2025 07:46 Note Text: CC: Wanda Reyna is a 44 year old female who [...] Is taking plaquenil as prescribed without SE At last OFFICE VISIT on 11/16/[address] chest at [facility] for her dyspnea symptoms- this testing was normal appearing on review She also had ECHOCARDIOGRAM at [facility] for her dyspnea symptoms- this testing [...] to medication. Would like to continue use Currently Mood, has had some stressors but feels she is overall managing ok with support of her . Varicose veins, leg pain, left >right. Had a recent procedure IVC Venogram of her left leg veins and has a 47% compression of the left common iliac vein with otherwise vessels with no evidence of additional compression or occlusion. Hasn't had any procedure yet but has significant pain in the left leg which is affecting her walking and gait. Radiating to left knee area and left hip. Procedure was 3-4 days ago. She is struggling to fall asleep at night due to the leg discomfort Obesity, weight at 189 lbs. Knows needs to continue to work on weight loss as well. Inflammatory polyarthropathy, had recent dilated eye exam which was normal/negative. Is taking plaquenil as prescribed without SE PAST MEDICAL HISTORY Diagnosis Date MAXIM positive 09/2014 Inflammatory polyarthropathy (HCC) Kidney stone with stent Raynaud's disease PAST SURGICAL HISTORY Procedure Laterality Date [facility] (MISSED AB 1ST TRIMESTER) 2001 ESWL Right 05/08/2017 EXTRACTION, ERUPTED TOOTH OR EXPOSED ROOT (ELEVATION AND/OR FORCEPS REMOVAL) GALLBLADDER/EF TUBAL LIGATION HX 2005 Current Outpatient Medications Medication Sig FLUoxetine (PROZAC) 10 mg capsule Take 1 capsule by mouth once daily. traMADol (ULTRAM) 50 mg tablet Take 1 tablet by mouth every 8 hours as needed for pain for up to 7 days. hydrOXYchloroQUINE (PLAQUENIL) 200 mg tablet Take 1 tablet by mouth once daily. phentermine-topiramate ER (QSYMIA) 11.25-69 mg 24 Hr Capsule Take 1 capsule by mouth once daily for 90 days. BMI 31.32 hydrocortisone 2.5 % cream Apply 1 application to affected area two times a day as needed (hemorrhoids). Location: hemorrhoids spironolactone (ALDACTONE) 50 mg tablet Take 1 tablet by mouth once daily. albuterol HFA (PROVENTIL HFA, VENTOLIN HFA) 90 mcg/actuation inhaler Inhale 2 Puffs as instructed every 4 hours as needed for wheezing/shortness of breath. chlorthalidone (HYGROTON) 25 mg tablet Take 1 tablet by mouth once daily. As needed for edema (Patient not taking: Reported on 11/16/2024) buPROPion (WELLBUTRIN) 75 mg tablet Take 2 tablets in the AM and 2 tablet in the afternoon traZODone (DESYREL) 50 [...] Reactions Penicillins Unknown Social History Tobacco Use Smo (more content not included)...[facility]06-17-2025 History of Present illness Narrative* Hilton Doty, DO - 01/17/2025 7:26 AM EDT CC: Wanda Reyna is a 44 year old female who [...] Is taking plaquenil as prescribed without SE At last OFFICE VISIT on 11/16/[address] chest at [facility] for her dyspnea symptoms- this testing was normal appearing on review She also had ECHOCARDIOGRAM at [facility] for her dyspnea symptoms- this testing [...] SE to medication.Would like to continue use Currently Mood, has had some stressors but feels she is overall managing ok with support of her . Varicose veins, leg pain, left >right. Had a recent procedure IVC Venogram of her left leg veinsand has a 47% compression of the left common iliac vein with otherwise vessels with no evidence of additional compression or occlusion. Hasn't had any procedure yet but has significant pain in the left leg which is affecting her walking and gait. Radiating to left knee area and left hip. Procedure was 3-4 days ago. She is struggling to fall asleep at night due to the leg discomfort Obesity, weight at 189 lbs. Knows needs to continue to work on weight loss as well. Inflammatory polyarthropathy, had recent dilated eye exam [...] HX 2005 Current Outpatient Medications Medication Sig FLUoxetine (PROZAC) 10 mg capsule Take 1 capsule by mouth once daily. traMADol (ULTRAM) 50 mg tablet Take 1 tablet by mouth every 8 hours as needed for pain for up to 7 days. hydrOXYchloroQUINE (PLAQUENIL) 200 mg tablet Take 1 tablet by mouth once daily. phentermine-topiramate ER (QSYMIA) 11.25-69 mg 24 Hr Capsule Take 1 capsule by mouth once daily for90 days. BMI 31.32 hydrocortisone 2.5 % cream Apply 1 application to affected area two times a day as needed (hemorrhoids). Location: hemorrhoids spironolactone (ALDACTONE) 50 mg tablet Take 1 tablet by mouth once daily. albuterol HFA (PROVENTIL HFA, VENTOLIN HFA) 90 mcg/actuation inhaler Inhale 2 Puffs as instructed every 4 hours as needed for wheezing/shortness of breath. chlorthalidone (HYGROTON) 25 mg tablet Take 1 tablet by mouth once daily. As needed for edema (Patient not taking: Reported on 11/16/2024) buPROPion (WELLBUTRIN) 75 mg tablet Take 2 tablets in the AM and 2 tablet in the afternoon traZODone (DESYREL) 50 [...] use: No ROS: See HPI PE: BP 120/60 Pulse 80 Temp (Src) 97 (Left Tympanic) Resp 16 Wt 189 lb (85.7kg) LMP 10/01/2024 Gen: A&OX3, NAD, non-toxic appearing HEENT: PERRLA, EOMs intact b/l, nares without drainage, pharynx without erythema, exudate, lesions,or drainage. Uvula midline. Neck: No LAD, no thyromegaly, no meningismus. CV: RRR, no murmur Lungs: CTA b/l, no wheezing Skin: No rashes, lesions, or wounds on exposed skin. Significant varicose veins of legs, left >right leg Pain into left knee and left hip without obvious deformity of joint Trace to 1+ leg symmetric swelling. ASSESSMENT/PLAN: 1. Left leg pain - ICD9: 729.5, ICD10: M79.605 (primary diagnosis) Unsure what is causing all her pain other than the varicose veins and the IVC venogram she had thisweek Okay for rx for Tramadol for 1 week only Xrays as ordered EMG/NCT as ordered left leg F/u with Vascular surgeon as well which is in a few weeks. - XR KNEE GENERAL 4V AP BOTH/PA BOTH/LAT/MERC LEFT - XR HIP GENERAL 3V PELV/AP/LAT LEFT - XR LUMBAR GENERAL 3V AP/LAT/L5-S1 - CONSULT TO VASCULAR SURGERY - TRAMADOL 50 MG TABLET - EMG(NEURO/NI) 2. Leg heaviness - ICD9: 729.89, ICD10: R29.898 Unsure what is causing all her pain other than the varicose veins and the IVC venogram she had thisweek Okay for rx for Tramadol for 1 week only Xrays as ordered EMG/NCT as ordered left leg F/u with Vascular surgeon as well which is in a few weeks. - XR KNEE GENERAL 4V AP BOTH/PA BOTH/LAT/MERC LEFT - XR HIP GENERAL 3V PELV/AP/LAT LEFT - XR LUMBAR GENERAL 3V AP/LAT/L5-S1 - CONSULT TO VASCULAR SURGERY - TRAMADOL 50 MG TABLET - EMG(NEURO/NI) 3. Varicose veins of both legs with edema - ICD9: 454.8, ICD10: I83.893 Unsure what is causing all her pain other than the varicose veins and the IVC venogram she had thisweek Okay for rx for Tramadol for 1 week only Xrays as ordered EMG/NCT as ordered left leg F/u with Vascular surgeon as well which is in a few weeks. - CONSULT TO VASCULAR SURGERY 4. LIVIA (generalized anxiety disorder) - ICD9: 300.02, ICD10: F41.1 rx refilled - FLUOXETINE 10 MG CAPSULE 5. Perimenopausal symptoms - ICD9: 627.2, ICD10: N95.1 stable 6. Inflammatory polyarthropathy (HCC) - ICD9: 714.9, ICD10: M06.4 stable 7. Dyslipidemia - ICD9: 272.4, ICD10: E78.5 - Controlled - Continue current medications - Counseled on healthy diet and regular exercise 8. Fatigue, unspecified type - ICD9: 780.79, ICD10: R53.83 See above, multifactorial Hilton Doty DO Return if no improvement. Follow up with Hilton Doty DO. To ER if develops chest pain, shortness of breath. Discussed risks, benefits, alternatives, and potential side effects of medications. Patient/Guardian expressed understanding and agreed with the plan. See patient instructions. Hilton Doty DO [address] [place] [address] documented in this encounterHolzer Health System06-15-2025 Radiology Diagnostic study note [facility] Imaging Services [address] [place] [address] Lumbar Spine 2 or 3 Views MR#: [id number] Acct: [id number] Name: WANDA REYNA Rep #: [id number] : 1980 F 44 From: Alejo Cowan MD PCP: Dr. Hilton Doty DO Status: RE G CLI Study:Lumbar Spine 2 or 3 Views Date of Exam: 01/14/25 Exam# [id number] Ordering Dr: Hilton Doty DO PROCEDURE: LUMBAR SPINE 2 OR 3 VIEWS 01/14/2025 REASON FOR EXAM: PAIN Lumbar pain. Left leg pain. TECHNIQUE: LUMBAR SPINE 2 OR 3 VIEWS COMPARISON: None FINDINGS: Vertebrae: Lumbar vertebral body height appears normal. No evidence of fracture. Discs: Intervertebral disc height appears normal Alignment: No significant subluxation or spondylolisthesis. No significant scoliosis Other: Metallic clips right upper quadrant abdomen, likely cholecystectomy RAD/Lumbar Spine 2 or 3 Views IMPRESSION: 1. No significant lumbar abnormality seen. Reading [facility] CC: Dr. Hilton Doty DO ~ Burner Shaft: Signed 06-15-2025 Radiology Diagnostic study note [facility] Imaging Services [address] [place], [place] [id number] HIP, UNI W/ Pelvis 2-3 Views MR#: [id number] Acct: [id number] Name: WANDA REYNA Rep #: [id number] : 1980 F 44 From: Alejo Cowan MD PCP: Dr. Hilton Doty DO Status: RE G CLI Study:HIP, UNI W/ Pelvis 2-3 Views Date of Ex am: 01/14/25 Exam# [id number] Ordering Dr: Hilton Doty DO PROCEDURE: HIP, UNI W/ PELVIS 2-3 VIEWS 01/14/2025 REASON FOR EXAM: PAIN Pelvic pain. Left hip pain. Left leg pain and heaviness. TECHNIQUE: HIP, UNI W/ PELVIS 2-3 VIEWS COMPARISON: None FINDINGS: Bones: Pelvis and left hip appear intact. No fracture or dislocation. Joints: Left hip is in articulating alignment. No significant arthritis. Soft tissues: No radiopaque foreign bodies RAD/HIP, UNI W/ Pelvis 2-3 Views IMPRESSION: Negative examination Reading Location: [facility] CC: Dr. Hilton Doty DO ~ Burner Shaft: Signed 06-15-2025 Radiology Diagnostic study note [facility] Imaging Services [address] [place], [place] [address] Knee 1 or 2 Views MR#: [id number] Acct: [id number] Name: WANDA REYNA Rep #: [id number] : 1980 F 44 From: Alejo Cowan MD PCP: Dr. Hilton Doty DO Status: RE G CLI Study:Knee 1 or 2 Views Date of Exam: Exam# [id number] Ordering Dr: Hilton Doty DO PROCEDURE: KNEE 1 OR 2 VIEWS 01/14/2025 REASON FOR EXAM: PAIN Right knee pain. TECHNIQUE: KNEE 1 OR 2 VIEWS COMPARISON: None FINDINGS: Bones: Right knee appears intact. No fracture or dislocation seen. Joints: Small osteophytes at the margins of the lateral compartment. Small to moderate size osteophytes at the margins of the medial compartment. Soft tissues: No radiopaque foreign bodies RAD/Knee 1 or 2 Views IMPRESSION: 1. 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 2. No acute findings Reading Location: [facility] CC: Dr. Hilton Doty DO ~ Burner Shaft: Signed 06-15-2025 Radiology Diagnostic study note [facility] Imaging Services [address] [place] [address] Knee 4 or More Views MR#: [id number] Acct: [id number] Name: WANDA REYNA Rep #: [id number] : 1980 F 44 From: Alejo Cowan MD PCP: Dr. Hilton Doty DO Status: RE G CLI Study:Knee 4 or More Views Date of Exam: 01/14/25 Exam# [id number] Ordering Dr: Hilton Doty DO PROCEDURE: KNEE 4 OR MORE VIEWS 01/14/2025 REASON FOR EXAM: PAIN Left knee pain TECHNIQUE: KNEE 4 OR MORE VIEWS COMPARISON: None FINDINGS: Bones: Left knee appears intact. No acute fracture or dislocation. Mild osteophyte formation of the margins of the lateral compartment and moderateosteophyte formation of the margins of the medial compartment. Joints: No joint effusion seen. Soft tissues: No radiopaque foreign bodies Alignment:: Alignment appears anatomic RAD/Knee 4 or More Views IMPRESSION: 1. Mild osteoarthritis, greatest of the medial compartment. 2. No acute findings. Reading Location: [facility] CC: Dr. Hilton Doty DO ~ Burner Shaft: Signed 06-13-2025 Evaluation note* Diagnosis Onset Date Resolution Status Admit Date Venous insufficiency chronic January 13, 2025 7:58am Venous insufficiency chronic February 06, 2025 12:56pm Venous insufficiency chronic 2024 8:29am Venous insufficiency chronic Octo 2024 11:34am Work Phone: 1([phone]) 853-561006-10-2025 Procedure note [facility] Medical Records Department [address] [place] [address] Operative Report 01/10/25 1210 MR#: [id number] Acct: [id number] Name: WANDA REYNA Rep #:[id number] : 1980 44 From: Derek Barone MD PCP: Dr. Hilton Doty, DO Status:RE G [facility]: [facility] Operative Report (Standard) Operative Information Date of Procedure: 01/10/25 Pre-Operative Diagnosis: Venous insufficiency and varicose veins with pain bilateral lower extremities Post-Operative Diagnosis: Same Surgery/Procedure Performed: IVC venogram Intravascular ultrasound inferior vena cava, bilateral common iliac veins, bilateral external iliacveins dance entertainer: No Type of Anesthesia: Local and Sedation,Conscious Procedure Start Time: 10:00 Procedure Stop Time: 10:30 Select all DRAINS/GRAFTS/IMPLANTS that apply: None Estimated Blood Loss: 3 Specimen collected: No Description of surgery: HPI: Patient is a 44-year-old female with bilateral lower extremity varicositiesand pain. She has some focal areas of venous reflux but does not correlate wellwith the distribution of her symptoms soshe presents now for venogram to assessfor central venous compression. Description of procedure: Upon obtaining informed consent and verification correct patient procedure site the patient was taken to the [facility] System Dispatcher where she was positioned prepped and draped [...] collaterals visualized. Through the micropuncture sheath a [employer] wire was advanced the micropuncture sheath exchanged for a short 8 Cypriot sheath. Next skin overlying the right common [...] micropuncture sheath exchanged for a short 8 Cypriot sheath. Nextan intravascular ultrasound probe was advanced via the left femoral access sheath and recorded pullback performed of the IVC, left common leg vein, left external iliac vein. The catheter and wire were then withdrawn advanced via the right femoral access sheath and recorded pullback performed of theIVC, right common iliac vein, right external iliac vein. 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 Given her degree of compression it was felt that she was not appropriate for intervention at this timegiven her clinical history so wires and sheath were withdrawn and manual pressure held for 10 minutes until hemostasis was obtained. The patient was then taken recovery with bedrest prior to discharge to home. Surgical Findings: See above Complications Complications: No 01/10/25 1215 Cosigner Signature (if applicable): CC: JAYE Montero; Dr. Derek Barone MD; Dr. Hilton Doty, DO~ Signed 06-02-2025 Telephone encounter Note* Telephone Encounter - Ngoc Ervin RN - 01/02/2025 10:30 AM EDT Patent states that Dr. Doty could clinical reviewer's notes from [facility], if she is able. [place] vascular providers are Laura Rai and Dr. Barone. Pt also states she had a STAT US of her leg completed on Thursday and it was negative for blood clot. Ngoc Ervin RN [facility]06-02-2025 Miscellaneous Notes* Telephone Encounter - Ngoc Ervin RN - 01/02/2025 10:30 AM EDT Patent states that Dr. Doty could clinical reviewer's notes from [facility], if she is able. [place] vascular providers are Laura Rai and Dr. Barone. Pt also states she had a STAT US of her leg completed on Thursday and it was negative for blood clot. Ngoc Ervin RN * Telephone Encounter - Hilton Doty DO - 01/02/2025 7:26 AM EDT Noted, thanks for update Will await specialist opinion as well Hilton Doty DO * Telephone Encounter - Frank Obando RN - 12/30/2024 12:51 PM EDT Patient calls to let provider know that [...] this be forwarded to provider as well. Frank Obando RN documented in this encounterHolzer Health System06-02-2025 Telephone encounter Note * Telephone Encounter - Hilton Doty DO - 01/02/2025 7:26 AM EDT Noted, thanks for update Will await specialist opinion as well Hilton Doty DO [facility]05-30-2025 Telephone encounter Note* Telephone Encounter - Frank Obando RN - 12/30/2024 12:51 PM EDT Patient calls to let provider know that [...] this be forwarded to provider as well. Frank Obando RN [facility]05-19-2025 Progress note Author Derek Barone [facility] Note Date/Time December 19, 2024 6:29p m [facility] Vascular Surgery [address] [place] [address]. [address] [place] [address] OFFICE VISIT Date of Service: 12/19/24 MR#: [id number] Acct: [id number] Name: WANDA REYNA Rep #: [id number] : 1980 Provider: Dr. Derek Barone MD Age/Sex: 44/F Location: [facility] Status: Signed Intake Vital Signs 11/28/24 10:39 [...] Visit Reasons: Discuss LLE, prior to procedure Bed Setter Required: No Accompanied by: Self Is patient [...] cap PO DAILY 09/0412/19/24 History 69 mg capsule,ext.zslsbqd82zx mphas (Qsymia) hydroxychloroquine 200 mg tablet 300 [...] History current occupational status: employed current occupation: [employer] Smoking Status: Former smoker alcohol intake: never substance use type: does not use seatbelt use: always do you feel safe at home: Yes HPI HPI HPI: WANDA REYNA, is a 44 F who presents to the office today for further discussionof possible refractory venous issues. She has had prior bilateral GSV ablation and continues to have LE edema/tightness/heaviness left worse than right. Her most recent study revealed isolated SSV reflux on left and SSV/ASV/school guard reflux on the right. We had initially [...] there is no contraindication to use 12/19/24 1820 <Electronically signed by Derek Quintero> Date _ Derek Barone MD [facility] Signature: Date (if applicable) CC: ~ [facility] Work Phone: 1(694) 975-716505-19-2025 Progress [facility] Vascular Surgery [address] [place], [place] [address] OFFICE VISIT Date of Service: 12/19/24 MR#: [id number] Acct: [id number] Name: WANDA REYNA Rep #: [id number] : 1980 Provider: Dr. Derek Barone MD Age/Sex: 44/F Location: [facility] Status: Signed Intake Vital Signs 11/28/24 10:39 [...] Visit Reasons: Discuss LLE, prior to procedure Bed Setter Required: No Accompanied by: Self Is patient [...] cap PO DAILY 09/0412/19/24 History 69 mg capsule,ext.fobzjuf28wm mphas (Qsymia) hydroxychloroquine 200 mg tablet 300 [...] History current occupational status: employed current occupation: [employer] Pul[employer] Smoking Status: Former smoker alcohol intake: never substance use type: does not use seatbelt use: always do you feel safe at home: Yes HPI HPI HPI: WANDA REYNA, is a 44 F who presents to the office today for further discussionof possible refractory venous issues. She has had prior bilateral GSV ablation and continues to have LE edema/tightness/heaviness left worse than right. Her most recent study revealed isolated SSV reflux on left and SSV/ ASV/school guard reflux on the right. We had initially [...] 1829 D> Date _ [facility]one MD [facility] Signature: Date (if applicable) CC: ~ [facility]05-12-2025 Evaluation note* Diagnosis Onset Date Resolution Status Admit Date Encounter for routine gynecological examination noneactive December 122024 9:20am Symptomatic varicose veins chronic December 19, 2024 3:31pm Venous insufficiency chronic January 13, 2025 7:58am Venous insufficiency chronic February 06, 2025 12:56pm Work Phone: 1([phone]) 471-445805-12-2025 Evaluation note* Diagnosis Onset Date Resolution Status Admit Date Encounter for routine gynecological examination noneactive December 122024 9:20am Symptomatic varicose veins chronic December 19, 2024 3:31pm Venous insufficiency chronic January 13, 2025 7:58am Venous insufficiency chronic February 06, 2025 12:56pm Venous insufficiency chronic 2024 8:29am Work Phone: 1(880) 639-839204-17-2025 Telephone encounter Note* Telephone Encounter - Catina Austin LPN - 11/17/2024 2:15 PM EDT Images from the original note were not included. [employer] PA rec'd and completed for phentermine topiramateER. This was denied per pts insurance. Note from payer: Request Reference Number: [id number]. QSYMIA CAP 11.25-69 is denied due to [...] Priorauth In Document Pharmacy Benefits Open Encounter AXEL WANDA [facility] ([facility]UM_IRX) Covered: Retail, Mail Order Unknown: Specialty, Long-Term Care BIN: [id number] : 1980 Group ID: [id number] PCN: [id number] Legal sex: F Group name: Address: [address] [place] [address] Medication Being Authorized phentermine-topiramate ER (QSYMIA) 11.25-69 mg 24 Hr Capsule Take 1 capsule by mouth once daily for 90 days. BMI 31.32 Dispense: 90 capsule Refills: 1 Start: 11/17/2024 End: 02/15/2025 Class: Normal Diagnoses: Obesity, Class I, BMI 30-34.9; Inflammatory polyarthropathy (HCC); Dyslipidemia This order has been released to its destination. To be filled at: [facility] [employer], [place] [address] - [address] - [phone] [facility]04-17-[facility] Miscellaneous Notes* Telephone Encounter - Catina Austin LPN - 11/17/2024 2:15 PM EDT Images from the original note were not included. [employer] PA rec'd and completed for phentermine topiramateER. This was denied per pts insurance. Note from payer: Request Reference Number: [id number]. QSYMIA CAP 11.25-69 is denied due to Plan Exclusion. For further questions, call . Payer: [facility] Electronic appeal: Not supported Appeal instructions: Appeals are not supported through ePA. Please refer to the fax case notice forappeals information and instructions. View History Notes Time User Attachment Attachment received from payer. 11/17/2024 2:14 PM Cchs, Rx Priorauth In Document Pharmacy Benefits Open Encounter WANDA REYNA [facility] ([facility]UM_IRX) Covered: Retail, Mail Order Unknown: Specialty, Long-Term Care BIN: [id number] : 1980 Group ID: [id number] PCN: [id number] Legal sex: F Group name: Address: [address] [place] [address] Medication Being Authorized phentermine-topiramate ER (QSYMIA) 11.25-69 mg 24 Hr Capsule Take 1 capsule by mouth once daily for 90 days. BMI 31.32 Dispense: 90 capsule Refills: 1 Start: 11/17/2024 End: 02/15/2025 Class: Normal Diagnoses: Obesity, Class I, BMI 30-34.9; Inflammatory polyarthropathy (HCC); Dyslipidemia This order has been released to its destination. To be filled at: [facility]- [facility] [employer], [place] [address] - [address] - [phone] documented in this encounterHolzer Health System04-17-2025 NoteHNO ID: [id number] Author: HILTON DOTY, DO Service: ? Author Type: Physician Type: Progress Notes Filed: 11/17/2024 12:27 Note Text: CC: Wanda Reyna is a 44 year old female who [...] SE Currently She had CT chest at [facility] for her dyspnea symptoms- this testing was normal appearing on review She also had ECHOCARDIOGRAM at [facility] for her dyspnea symptoms- this testing [...] disease PAST SURGICAL HISTORY Procedure Laterality Date [facility] (MISSED AB 1ST TRIMESTER) 2001 ESWL Right [...] as d/w her today (more content not included)...[facility]04-17-2025 History of Present illness Narrative* Hilton Doty, DO - 11/17/2024 12:22 PM EDT CC: Wanda Reyna is a 44 year old female who [...] SE Currently She had CT chest at [facility] for her dyspnea symptoms- this testing was normal appearing on review She also had ECHOCARDIOGRAM at [facility] for her dyspnea symptoms- this testing [...] - ICD9: 714.9, ICD10: M06.4 F/u with Client Development Manager - QSYMIA 11.25 MG-69 MG CAPSULE, EXTENDED [...] - ICD9: 627.2, ICD10: N95.1 F/u with REFUND SPECIALIST Affecting her symptoms likely 7. SOB (shortness [...] with more than 50% of the total klqu-zz-uhyn time of the visit in counseling / coordination of care. Return if no improvement. Follow up with Hilton Doty DO. To ER if develops chest pain, shortness of breath. Discussed risks, benefits, alternatives, and potential side effects of medications. Patient/Guardian expressed understanding and agreed with the plan. See patient instructions. Hilton Doty DO [address] [place] [address] documented in this encounterHolzer Health System04-16-2025 Instructions* Patient Instructions* Hilton Doty DO - 11/16/2024 7:53 PM EDT Magnesium glycinate 500-800 mg in the evening Powder or pill documented in this encounterHolzer Health System04-11-2025 Telephone encounter Note * Telephone Encounter - Lois Rod MA - 11/11/2024 1:17 PM EDT Pt informed via message Lois Rod MA [facility]04-11-2025 Miscellaneous Notes* Telephone Encounter - Lois Rod MA - 11/11/2024 1:17 PM EDT Pt informed via MC message Lois Rod MA * Telephone Encounter - Anna Sheikh APRN.CNP - 11/11/2024 1:[address] looks completely normal, no concerns. Anna Sheikh APRN.CNP * Telephone Encounter - Ariana Schwarz MA - 11/11/2024 10:39 AM EDT Pt completed CT Chest at [facility]. Results have been scanned into LikeList for Provider to review. Please review under imaging tab. Ariana Schwarz MA documented in this encounterHolzer Health System04-11-2025 Telephone encounter Note * Telephone Encounter - Anna Sheikh APRN.CNP - 11/11/2024 1:[address] looks completely normal, no concerns. Anna Sheikh APRN.FEI [facility] Work Phone: 1([phone]) 600-454204-11-2025 Telephone encounter Note* Telephone Encounter - Ariana Schwarz MA - 11/11/2024 10:39 AM EDT Pt completed CT Chest at [facility]. Results have been scanned into LikeList for Provider to review. Please review under imaging tab. Ariana Schwarz MA [facility]04-11-2025 Radiology Diagnostic study note [facility] Imaging Services [address] [place] [address] Chest without Contrast MR#: [id number] Acct: [id number] Name: WANDA REYNA Rep #: [id number] : 1980 F 44 From: Micahel Smith MD PCP: Dr. Hilton Doty, Status: RE G CLI Study:Chest without Contrast Date of Exam: 11/10/24 Exam# [id number] Ordering Dr: Hilton Doty DO PROCEDURE: CHEST [...] the chest. Status post cholecystectomy. Reading Location: [id number] CC: Dr. Hilton Doty, DO ~ [place]er [place]: Signed 04-04-2025 Telephone encounter Note* Telephone Encounter - Anna Sheikh APRN.CNP - 11/04/2024 8:06 AM EDT Noted, thank you Anna Sheikh APRN.CNP [facility] Work Phone: 1(379) 495-631004-04-2025 Miscellaneous Notes* Telephone Encounter - Anna Sheikh [...] information. DRUG NAME: Azelex Cre 20% Wanda Reyna PATIENT INFO: PROVIDER: Hilton Doty documented in this encounterHolzer Health System04-02-2025 Evaluation note* Diagnosis Onset Date Resolution Status Admit Date Varicose veins of lower extremity noneactive November 02, 2024 11:30am Encounter for routine gynecological examination noneactive December 122024 9:20am Symptomatic varicose veins chronic December 19, 2024 3:31pm Work Phone: 1(191) 914-698804-02-2025 Evaluation note* Diagnosis Onset Date Resolution Status Admit Date Varicose veins of lower extremity noneactive November 02, 2024 11:30am Encounter for routine gynecological examination noneactive December 122024 9:20am Symptomatic varicose veins chronic December 19, 2024 3:31pm Venous insufficiency acute January 13, 2025 7:58am Work Phone: 1(478) 293-348404-02-2025 Evaluation note* Diagnosis Onset Date Resolution Status Admit Date Varicose veins of lower extremity noneactive November 02, 2024 11:30am Encounter for routine gynecological examination noneactive December 122024 9:20am Symptomatic varicose veins chronic December 19, 2024 3:31pm Venous insufficiency chronic January 13, 2025 7:58am Venous insufficiency chronic February 06, 2025 12:56pm Work Phone: [phone]) [phone] Telephone encounter Note* Telephone Encounter - Catina Austin LPN - 11/02/2024 11:37 AM EDT Called the pharmacy and they report the generic azeliac acid would be covered, this is a 15% though. Pt has not picked the rx for the 20% nor has she responded to the pharmacy chart message. [facility]03-28-2025 Telephone encounter Note* Telephone Encounter - Lisa Doll APRN.CNP - 10/28/2024 2:31 PM EDT Please call patient and let her know. She can call insurance for alternative if needed. Thank you, Lisa Doll APRN.BUNCH TRIMMER MOLD [facility]03-28-2025 Telephone encounter Note* Telephone Encounter - Catina [...] information. DRUG NAME: Azelex Cre 20% Wanda Reyna PATIENT INFO: PROVIDER: Hilton Doty [facility]03-26-2025 Note* Addendum Note - Hilton Doty DO - 10/26/2024 10:05 PM EDTAddended by: HILTON DOTY on: 10/26/2024 10:05 PM Modules accepted: Orders [facility]03-26-2025 Miscellaneous Notes* Addendum Note - Hilton Doty DO - 10/26/2024 10:05 PM EDTAddended by: HILTON DOTY on: 10/26/2024 10:05 PM Modules accepted: Orders documented in this encounterHolzer Health System03-26-2025 Instructions* Patient Instructions* Hilton Doty DO - 10/26/2024 6:41 PM EDT Magnesium glycinate 500-800 mg in the evening Powder- Pure encapsulations brand Stop chlorthalidone and potassium when finished Start spironolactone 50 mg a day Recheck labs in 2-3 weeks documented in this encounterHolzer Health System03-26-2025 NoteHNO ID: [id number] Author: HILTON DOTY DO Service: ? Author Type: Physician Type: Progress Notes Filed: 10/26/2024 22:00 Note Text: CC: Wanda Reyna is a 44 year old female who [...] disease PAST SURGICAL HISTORY Procedure Laterality Date DANAL (MISSED AB 1ST TRIMESTER) 2001 ESWL Right [...] ICD10: E87.6 Stop cholthalidone (more content not included)...[facility] 10-26-2024 History of Present illness Narrative* Hilton Doty, - 10/26/2024 6:18 PM EDT CC: Wanda Reyna is a 44 year old female who [...] without SE PAST MEDICAL HISTORY Diagnosis Date MAIXM positive 09/2014 Inflammatory polyarthropathy (HCC) Kidney stone [...] if not improving, then consider alternative and instructor dramatic arts opinion - AZELAIC ACID 20 % TOPICAL [...] with more than 50% of the total [id number] time of the visit in counseling / coordination of care. Return if no improvement. Follow up with Hilton Doty DO. To ER if develops chest pain, shortness of breath. Discussed risks, benefits, alternatives, and potential side effects of medications. Patient/Guardian expressed understanding and agreed with the plan. See patient instructions. Hilton Doty DO [address] [place] [address] documented in this encounterHolzer Health System03-20-2025 Telephone encounter Note * Telephone Encounter - Lisa Doll APRN.CNP - 10/20/2024 10:49 AM EDT No need for fluid restriction after getting BNP results as normal and normal kidney function. I would suggest around 60oz of water per day. Thank you, Lisa Doll APRN.[employer] TR[employer]MER [employer] [facility]03-20-2025 Miscellaneous Notes* Telephone Encounter - Lisa Doll APRN.CNP - 10/20/2024 10:49 AM EDT No need for fluid restriction after getting BNP results as normal and normal kidney function. I would suggest around 60oz of water per day. Thank you, Lisa Doll APRN.CNP * Telephone Encounter - Huma Da Silva LPN - 10/20/2024 10:22 AM EDT Pt states understanding. Now asking what is a good amount of of water for her to be drinking? Statesw at last appointment was told to watch fluid intake but with her meds they make her super thirsty.So asking what is an ok amount to drink? * Telephone Encounter - Lisa Doll APRN.BUNCH TRIMMER MOLD - 10/20/2024 10:14 AM EDT All of these concerns will be addressed at appointment next week. Rx for ativan sent. Thank you, Lisa Doll APRN.[employer]CH TRIMMER [employer] The following approved medication requests have been transmitted electronically. Requested Prescriptions Signed Prescriptions Disp Refills LORazepam (ATIVAN) 0.5 mg 30 tablet 0 Sig: Take 1 tablet by mouth once daily as needed (anxiety attack) for up to 30 days. Authorizing Provider: LISA DOLL APRN.BUNCH TR[employer]MER [employer] PDMP website checked and validated. All prescriptions have been APPROPRIATELY filled. No suspiciousactivity was identified. 10/20/2024 by Lisa Doll APRN.[employer] * Telephone Encounter - Sorin Lan RN - 10/20/2024 9:14 AM EDT Phoned pt and given provider's message below. Pt states she hasn't seen a credit assessment analyst since last year. Reports pcp agreed to [...] was elevated mildly. Recommend addressing this with Client Development Manager Hilton Doty DO * Telephone Encounter - Ngoc Ervin RN - 10/07/2024 10:18 AM EST Patient asking if Dr. Doty could review her [facility] lab results that were completed 09/22/24 (in scanned docs), as well as her [facility] Vascular Note from 09/08/24 (in scanned docs as well). Pt states there is no [facility] to review these records, but wanted Dr. Doty's advise on her lab results, as she sees there are some numbers that are off and she was not feeling well during the time she had her labs drawn. Pt states she will be following up with [facility] Vascular in November. Ngoc Ervin RN documented in this encounterHolzer Health System03-20-2025 Telephone encounter Note * Telephone Encounter - Huma Da Silva LPN - 10/20/2024 10:22 AM EDT Pt states understanding. Now asking what is a good amount of of water for her to be drinking? Statesw at last appointment was told to watch fluid intake but with her meds they make her super thirsty.So asking what is an ok amount to drink? [facility]03-20-2025 Telephone encounter Note* Telephone Encounter - Lisa [...] was identified. 10/20/2024 by Lisa Doll APRN.CNP [facility]03-20-2025 Telephone encounter Note* Telephone Encounter - Sorin Lan RN - 10/20/2024 9:14 AM EDT Phoned pt and given provider's message below. Pt states she hasn't seen a credit assessment analyst since last year. Reports pcp agreed to [...] asking pcp to refill her lorazepam. Pended. [facility]03-19-2025 Telephone encounter Note* Telephone Encounter - Hilton Doty DO - 10/19/2024 7:57 PM EDT Please inform patient that labs were stable other than CRP was elevated mildly. Recommend addressing this with Client Development Manager Hilton Doty DO [facility]03-17-2025 Telephone encounter Note* Telephone Encounter - Lissa Cedillo RN - 10/17/2024 4:40 PM EDT Pt called and is notified of providers results and instructions. Pt voices understanding. Lissa Cedillo RN [facility]03-17-2025 Miscellaneous Notes* Telephone Encounter - Lissa Cedillo [...] results are back she had done at [facility] on 10/14? See in lab section scanned in. Patient was going to try to go back to work tomorrow but still feels short of breath with not much activity, and fatigued. Please advise documented in this encounterHolzer Health System03-17-2025 Telephone encounter Note * Telephone Encounter - Rajinder Hinton APRN.FEI - 10/17/2024 4:24 PM EDT I want her to increase her chlorthalidone to 50mg daily x3 days and let me know if symptoms improve. [facility] Work Phone: 1(383) 369-159503-17-2025 Telephone encounter Note* Telephone Encounter - Simran Méndez RN - 10/17/2024 4:20 PM EDT Patient calls back and states that she does not take lasix. Patient was taken off of lasix. Patienttake chlorthalidone 25 mg daily for edema. Please review and advise, Simran Méndez RN [facility]03-17-2025 Telephone encounter Note* Telephone Encounter - Lissa [...] want her to limit herself to. Lissa Babulski, RN [facility]03-17-2025 Telephone encounter Note* Telephone Encounter - Rajinder [...] there is an improvement in her symptoms. [facility]03-17-2025 Telephone encounter Note* Telephone Encounter - Dasia Hopper MA - 10/17/2024 3:26 PM EDT Pt notified and verbalized understanding. Pt asking if you have any further recommendations to help with the SOB in the meantime? Dasia Hopper MA [facility]03-17-2025 Telephone encounter Note* Telephone Encounter - Rajinder Hinton APRN.CNP - 10/17/2024 2:36 PM EDT Please let patient know her BNP is normal. Patient should follow up with Dr. Doty next week as scheduled. [facility]03-17-2025 Telephone encounter Note* Telephone Encounter - Gina Sparks LPN - 10/17/2024 2:28 PM EDT Patient calling asking if her lab results are back she had done at [facility] on 10/14? See in lab section scanned in. Patient was going to try to go back to work tomorrow but still feels short of breath with not much activity, and fatigued. Please advise [facility]03-17-2025 Telephone encounter Note* Telephone Encounter - Dasia Hopper MA - 10/17/2024 10:17 AM EDT New stat order faxed to [facility] Dasia Hopper MA [facility]03-17-2025 Miscellaneous Notes* Telephone Encounter - Dasia Hopper MA - 10/17/2024 10:17 AM EDT New stat order faxed to [facility] Dasia Hopper MA * Telephone Encounter - Rajinder Hinton APRN.CNP - 10/14/2024 3:40 PM EDT New order placed. Please fax to [facility]. * Telephone Encounter - Frank Obando RN - 10/14/2024 3:19 PM EDT Patient calls to report that she is having trouble scheduling ECHO with [facility] until out into November because it doesn't say stat. Patient asking if order can be changed to STAT and sent to [facility] scheduling. Frank Obando, RN documented in this encounterHolzer Health System03-14-2025 Telephone encounter Note * Telephone Encounter - Rajinder Hinton APRN.CNP - 10/14/2024 3:40 PM EDT New order placed. Please fax to [facility]. [facility]03-14-2025 Telephone encounter Note* Telephone Encounter - Farnk Obando RN - 10/14/2024 3:19 PM EDT Patient calls to report that she is having trouble scheduling ECHO with [facility] until out into November because it doesn't say stat. Patient asking if order can be changed to STAT and sent to [facility] scheduling. Frank Obando RN [facility]03-14-2025 NoteHNO ID: [id number] Author: RAJINDER HINTON APRN.BUNCH TRIMMER MOLD Service: ? Author Type: Nurse Practitioner Type: Progress Notes Filed: 10/14/2024 13:40 Note Text: Chief Complaint Patient presents with: ER F/U HPI Wanda Reyna is a 44 year old female who [...] 0.9 % (FLUSH) INJECTION SYRINGE Rajinder Hinton APRN.[facility]IW[facility]03-14-[facility] History of Present illness Narrative* Rajinder Hinton APRN.BUNCH TRIMMER MOLD - 10/14/2024 1:21 PM EDT Chief Complaint Patient presents with: ER F/U HPI Wanda Reyna is a 44 year old female who [...] FORCEPS REMOVAL) GALLBLADDER/EF TUBAL LIGATION HX 2005 Family History FAMILY HISTORY Problem Relation Age [...] 0.9 % (FLUSH) INJECTION SYRINGE Rajinder Hinton APRN.BUNCH TRIMMER MOLD documented in this encounterHolzer Health System03-13-2025 Radiology Diagnostic study note [facility] Imaging Services [address] [place] [address] Chest PA and Lateral MR#: [id number] Acct: [id number] Name: WANDA REYNA Rep #: [id number] : 1980 F 44 From: Donovan Almanza MD PCP: Dr. Hilton Doty DO Status: RE G ER Study:Chest PA and Lateral Date of Exam: 10/13/24 Exam# [id number] Ordering Dr: Charlie Lombardo DO PROCEDURE: CHEST [...] IMPRESSION: No acute pulmonary disease. Reading Location: [id number] CC: Dr. Hilton Doty DO; Dr. Charlie Lombardo DO ~ [place]: Signed 03-13-2025 Telephone encounter Note* Telephone Encounter - Lissa Cedillo RN - 10/13/2024 12:16 PM EDT Protocol recommends go to the ER. Pt is going to [facility] ER. Care plan reviewed with patient. [...] in the last month. Protocols used: Breathing Ivuicsxlvv-[id number]-XP [facility]03-13-2025 Miscellaneous Notes* Telephone Encounter - Lissa Cedillo RN - 10/13/2024 12:16 PM EDT Protocol recommends go to the ER. Pt is going to [facility] ER. Care plan reviewed with patient. [...] in the last month. Protocols used: Breathing [id number] documented in this encounterHolzer Health System03-07-2025 Telephone encounter Note * Telephone Encounter - [...] As needed for edema Ngoc Ervin RN [facility]03-07-2025 Miscellaneous Notes* Telephone Encounter - Ngoc Ervin [...] edema Ngoc Ervin RN documented in this encounterHolzer Health System03-07-2025 Telephone encounter Note * Telephone Encounter - Ngoc Ervin RN - 10/07/2024 10:18 AM EST Patient asking if Dr. Doty could review her [facility] lab results that were completed 09/22/24 (in scanned docs), as well as her [facility] Vascular Note from 09/08/24 (in scanned docs as well). Pt states there is no [facility] to review these records, but wanted Dr. Doty's advise on her lab results, as she sees there are some numbers that are off and she was not feeling well during the time she had her labs drawn. Pt states she will be following up with [facility] Vascular in November. Ngoc Ervin RN [facility]02-20-2025 Telephone encounter Note* Telephone Encounter - Frank Obando RN - 09/22/2024 12:35 PM EST Patient calls to request lab orders be faxed to [facility]. Faxed to [phone] per request. Frank Obando RN [facility]02-20-2025 Miscellaneous Notes* Telephone Encounter - Frank Obando RN - 09/22/2024 12:35 PM EST Patient calls to request lab orders be faxed to [facility]. Faxed to [phone] per request. Frank Obando RN documented in this encounterHolzer Health System02-06-2025 Evaluation note* Diagnosis Onset Date Resolution Status Admit Date Varicose veins of lower extremity noneactive September 08 10:57am Work Phone: 1(687) 490-130702-06-2025 Evaluation note* Diagnosis Onset Date Resolution Status Admit Date Varicose veins of lower extremity noneactive September 08 10:57am Varicose veins of lower extremity noneactive November 02, 2024 11:30am Work Phone: 1(594) 670-484302-06-2025 Evaluation note* Diagnosis Onset Date Resolution Status Admit Date Varicose veins of lower extremity noneactive September 08 10:57am Varicose veins of lower extremity noneactive November 02, 2024 11:30am Encounter for routine gynecological examination noneactive December 122024 9:20am Work Phone: [phone] Evaluation note* Diagnosis Onset Date Resolution Status Admit Date Varicose veins of lower extremity noneactive September 08 10:57am Varicose veins of lower extremity noneactive November 02, 2024 11:30am Encounter for routine gynecological examination noneactive December 122024 9:20am Symptomatic varicose veins chronic December 19, 2024 3:31pm [facility] Work Phone: [phone] Telephone encounter Note* Telephone Encounter - Gina Sparks LPN - 08/08/2024 10:59 AM EST Patient calling asking to have Vascular referral faxed to Dr Derek Barone [facility] at [phone]. Printed office visit note, consult, face sheet, insurance card copy,and faxed as requested. So patient can get appt set up. [facility]01-06-2025 Miscellaneous Notes* Telephone Encounter - Gina Sparks LPN - 08/08/2024 10:59 AM EST Patient calling asking to have Vascular referral faxed to Dr Derek Barone [facility] at [phone]. Printed office visit note, consult, face sheet, insurance card copy,and faxed as requested. So patient can get appt set up. documented in this encounterHolzer Health System12-30-2024 NoteHNO ID: [id number] Author: HILTON DOTY, DO Service: ? Author Type: Physician Type: Progress Notes Filed: 08/02/2024 07:20 Note Text: CC: Wanda Reyna is a 44 year old female who [...] of these veins surgically by specialist at [facility] where she works Inflammatory polyarthropathy, symptoms have been stable. Use of plaquenil as prescribed. Getting yearly eye examination Edema, use of chlorthalidone medication and potassium supplement Mood, admits to recently being stressed but feels she is in a better job position than previous. She is working with Psychiatrist office Dr. Oliveros at [facility]. She feels that her perimenopausal symptoms are bothering her. She is going to further discuss with REFUND SPECIALIST as well. PAST MEDICAL HISTORY Diagnosis Date [...] surgically, she wants to see surgeon at [facility] where she works - CONSULT TO VASCULAR SURGERY 2. Hypokalemia - ICD9: 276.8, ICD10: E87.6 Recheck labs as ordered Continue potassium supplement - COMPREHENSIVE METABOLIC PANEL - COMPLETE BLOOD COUNT AND DIFFERENTIAL - THYROID STIMULATING HORMONE 3. LIVIA (generalized anxiety disorder) - ICD9: 300.02, ICD10: F41.1 Increase dose of wellbutrin D/w REFUND SPECIALIST regarding perimenopause and how this is also affecting her mood and management of her mood. - BUPROPION HCL 75 MG TABLET 4. Situational depression - ICD9: 309.0, ICD10: F43.21 Increase dose of wellbutrin D/w REFUND SPECIALIST regarding perimenopause and how this is also affecting her mood and management of her mood. - BUPROPION HCL 75 MG TABLET 5. Obesity, Class I, BMI 30-34.9 - ICD9: 278.00, ICD10: E66.811 Increase dose of wellbutrin D/w REFUND SPECIALIST regarding perimenopause and how this is also affecting her mood and management of her mood. - Lengthy discussion in office today regarding diet and exercise. Discussed use of small plate to eat meals from, drink 1 glass of water 10-15 minutes prior to eating (more content not included)...[facility]12-30-2024 History of Present illness Narrative* DotyHilton candelaria Noe, DO - 08/01/2024 10:25 AM EST CC: Wanda Reyna is a 44 year old female who [...] of these veins surgically by specialist at [facility] where she works Inflammatory polyarthropathy, symptoms have been stable. Use of plaquenil as prescribed. Getting yearly eye examination Edema, use of chlorthalidone medication and potassium supplement Mood, admits to recently being stressed but feels she is in a better job position than previous. She is working with Psychiatrist office Dr. Oliveros at [facility]. She feels that her perimenopausal symptoms are bothering her. She is going to further discuss with REFUND SPECIALIST as well. PAST MEDICAL HISTORY Diagnosis Date [...] surgically, she wants to see surgeon at [facility] where she works - CONSULT TO VASCULAR SURGERY 2. Hypokalemia - ICD9: 276.8, ICD10: E87.6 Recheck labs as ordered Continue potassium supplement - COMPREHENSIVE METABOLIC PANEL - COMPLETE BLOOD COUNT AND DIFFERENTIAL - THYROID STIMULATING HORMONE 3. LIVIA (generalized anxiety disorder) - ICD9: 300.02, ICD10: F41.1 Increase dose of wellbutrin D/w REFUND SPECIALIST regarding perimenopause and how this is also affecting her mood and management of her mood. - BUPROPION HCL 75 MG TABLET 4. Situational depression - ICD9: 309.0, ICD10: F43.21 Increase dose of wellbutrin D/w REFUND SPECIALIST regarding perimenopause and how this is also affecting her mood and management of her mood. - BUPROPION HCL 75 MG TABLET 5. Obesity, Class I, BMI 30-34.9 - ICD9: 278.00, ICD10: E66.811 Increase dose of wellbutrin D/w REFUND SPECIALIST regarding perimenopause and how this is also [...] is going to follow up with her Art Dealer as well. - QSYMIA 11.25 MG-69 MG CAPSULE, EXTENDED RELEASE 6. Inflammatory polyarthropathy (HCC) - ICD9: 714.9, ICD10: M06.4 See above F/u with Client Development Manager. - QSYMIA 11.25 MG-69 MG CAPSULE, EXTENDED [...] 714.9, ICD10: M19.90 See above F/u with Client Development Manager. - HYDROXYCHLOROQUINE 200 MG TABLET 9. Perimenopausal symptoms - ICD9: 627.2, ICD10: N95.1 Follow up with REFUND SPECIALIST Hilton Doty DO Return if no improvement. Follow up with Hilton Doty DO. To ER if develops chest pain, shortness of breath. Discussed risks, benefits, alternatives, and potential side effects of medications. Patient/Guardian expressed understanding and agreed with the plan. See patient instructions. Hilton Doty DO [address] [place] [address] documented in this encounterHolzer Health System11-29-2024 Telephone encounter Note * Telephone Encounter - [...] Sparks LPN July 01, 2024 11:29 AM [facility]11-29-2024 Miscellaneous Notes* Telephone Encounter - Gina Sparks [...] 01, 2024 11:29 AM documented in this encounterHolzer Health System10-17-2024 Telephone encounter Note * Telephone Encounter - Lois Rod MA - 05/19/2024 10:00 AM EDT Pt informed via MC message Lois Rod MA [facility]10-17-2024 Miscellaneous Notes* Telephone Encounter - Lois Rod MA - 05/19/2024 10:00 AM EDT Pt informed via MC message Lois Rod MA * Telephone Encounter - Anna Sheikh APRN.CNP - 05/19/2024 9:54 AM EDT At this point she has not opened any Saturdays. Anna Sheihk APRN.CNP * Telephone Encounter - Lois Rod MA - 05/12/2024 7:17 AM EDT Please see pt MC message-- Oz Doty at last visit you [...] night thank you ! documented in this encounterHolzer Health System10-17-2024 Telephone encounter Note * Telephone Encounter - Anna Sheikh APRN.CNP - 05/19/2024 9:54 AM EDT At this point she has not opened any Saturdays. Anna Sheikh APRN.CNP [facility]10-10-2024 Telephone encounter Note* Telephone Encounter - Lois Rod MA - 05/12/2024 7:17 AM EDT Please see pt [employer] message-- Hi Dr Doty at last visit [...] rest of your night thank you ! [facility]10-10-2024 Telephone encounter Note* Telephone Encounter - Lois Rod MA - 05/12/2024 7:09 AM EDT Turned into TE Lois Rod MA [facility]10-10-2024 Miscellaneous Notes* Telephone Encounter - Lois Rod MA - 05/12/2024 7:09 AM EDT Turned into TE Lois Rod MA documented in this encounterHolzer Health System09-25-2024 Telephone encounter Note * Telephone Encounter - Lois Rod MA - 04/27/2024 6:53 PM EDT Pt informed, verbalized understanding Lois Rod MA [facility]09-25-2024 Miscellaneous Notes* Telephone Encounter - Lois Rod [...] View External Labs - Miscellaneous Lab [ID [id number]] View External Labs - Miscellaneous Lab [ID [id number]] View External Labs - Miscellaneous Lab [ID [id number]] documented in this encounterHolzer Health System09-25-2024 Telephone encounter Note * Telephone Encounter - [...] potassium in 3-4 days Hilton Doty DO [facility]09-25-2024 Telephone encounter Note* Telephone Encounter - Lois Rod MA - 04/27/2024 8:41 AM EDT Lab results attached. Lois Rod MA View External Labs - Miscellaneous Lab [ID [id number]] View External Labs - Miscellaneous Lab [ID [id number]] View External Labs - Miscellaneous Lab [ID [id number]] [facility]09-23-[facility] Instructions* Patient Instructions* Hilton Doty DO - 04/25/2024 10:51 AM EDT Magnesium glycinate or gluconate 400-500 mg in the evening Vitamin B complex daily in the morning. Take as liquid supplement with at least 1000 mcg vitamin B12, documented in this encounterHolzer Health System09-23-2024 History of Present illness Narrative* Hilton Doty DO - 04/25/2024 10:18 AM EDT CC: Wanda Reyna is a 44 year old female who [...] getting used to a new job at [employer] over the last 7-8 months as [...] aswell. would also be interested in seeing Art Dealer at [facility] Currently Has been having increased stressors [...] day, needs to make follow up with Client Development Manager. Mood, struggling with being stressed due to [...] and exercise aswell. she has been seeing Art Dealer at [facility] PAST MEDICAL HISTORY Diagnosis Date MAXIM [...] normal negative CXR and work up at [facility] EMERGENCY DEPARTMENT - COMPLETE BLOOD COUNT AND DIFFERENTIAL 3. Hypokalemia - ICD9: 276.8, ICD10: E87.6 Labs as ordered Likely related to the hypokalemia, need to start on medication for potassium replacement- start on once a day supplement and recheck labs as ordered. rx sent to pharmacy Had otherwise normal negative CXR and work up at [facility] - POTASSIUM CHLORIDE ER [...] normal negative CXR and work up at [facility] - VITAMIN B12 - VITAMIN D 25 HYDROXY 5. Inflammatory arthritis - ICD9: 714.9, ICD10: M19.90 Continue plaquenil, f/u with Client Development Manager 6. Bilateral leg edema - ICD9: 782.3, [...] agreed with the plan. Hilton Doty DO [address] [place] [address] documented in this encounterHolzer Health System08-30-2024 Telephone encounter Note * Telephone Encounter - [...] was identified. 04/01/2024 by Anna Sheikh CNP. [facility]-30[facility] Miscellaneous Notes* Telephone Encounter - Anna Sheikh [...] once daily. As needed for edema Char Adarsh Garcia April 01, 2024 9:40 AM documented in this encounterHolzer Health System08-30-2024 Telephone encounter Note * Telephone Encounter - [...] Knox LPN April 01, 2024 9:54 AM [facility] Telephone encounter Note* Telephone Encounter - Char Morse - 04/01/2024 9:41 AM EDT Patient is also asking for a refill of lorazepam; not on current med list. Please review and add to refill request if appropriate. [facility]08-30-[facility] Telephone encounter Note* Telephone Encounter - Char [...] Char Garcia April 01, 2024 9:40 AM [facility]08-15-[facility]24 Telephone encounter Note* Telephone Encounter - Lois [...] Please advise. Thank you. Lois Rod MA. [facility]08-15-2024 Miscellaneous Notes* Telephone Encounter - Lois Rod [...] you. Lois Rod MA. documented in this encounterHolzer Health System07-08-2024 History of Present illness Narrative* Ibeth Ludwig RT(R) - 02/08/2024 4:40 PM EDT Radiology Service Progress Note PATIENT NAME: Wnada Reyna DATE OF SERVICE: February 08, 2024 TIME: [...] PATIENT PRESENTS WITH AN IMPLANTABLE OR ATTACHED CLOTHES DRIER REPAIRER: No RADIOLOGY DEPARTMENT: General X-ray: Exam(s) Completed: Spine X-Ray(s): Thoracic and Lumbar AP / LAT / L5-S1 PERIPHERAL IV DATA: Not applicable SIGNED BY: RT Meaghan(R) February 08, 2024 4:53 PM documented in this encounterHolzer Health System07-08-2024 Instructions* Patient Instructions* Doris Mendez APRN.CNS - 02/08/2024 4:34 PM EDT 1) Get X-rays today 2) Continue naproxen 3) Methocarbamol 500 mg 3 x day 4) Alternating heat 5) Keep Willow appt. documented in this encounterHolzer Health System07-08-2024 History of Present illness Narrative* Doris Mendez APRN.CNS - 02/08/2024 4:09 PM EDT This is a 44 year old female who presents today with: Patient presents with: ER F/U: [facility] 02/05/24 Fall HISTORY OF PRESENT ILLNESS: Wanda Reyna is a 44 year old female. Patient presents with: ER F/U: [facility] 02/05/24 Fall Fell backwards off a [...] BMI 31.01 kg/m ANXIETY/DEPRESSION VISIT CC: Wanda Reyna is a 44 year old female presents [...] scheduled or as needed for worsening/no improvement. Doris Mendez, LIBRADO/ HAND RUG CLEANER documented in this encounterHolzer Health System06-24-2024 History of Present illness Narrative* Hilton Doty, - 01/25/2024 7:35 AM EDT CC: Wanda Reyna is a 43 year old female who presents to the office for follow up HPI: Inflammatory polyarthropathy, no signs of retinal concerns for her plaquenil monitoring. states haddilated eye exam by Dr. Genao in May 2023 last, has this exam yearly. Doesn't currently have a Client Development Manager since she needs to establish with a [...] getting used to a new job at 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 Knows need for further weight loss. Is taking the qsymia and tolerating rx well. Would like to continue medication. Trying to continue healthy diet choices and exercise as well. she recently was able to see Art Dealer at [facility] with benefit Mood, feels she is [...] with the plan. Hilton Doty DO [address] [place] [address] documented in this encounterHolzer Health System06-19-2024 Instructions* Patient Instructions* Hilton Doty DO - 01/20/2024 7:37 PM EDT Magnesium citrate 400-500 mg in the evening documented in this encounterHolzer Health System05-30-2024 Telephone encounter Note * Telephone Encounter - Rox Knox LPN - 12/31/2023 7:25 AM EDT [facility]-10/21/23 Labs-09/02/23Jun-01/20/24 Rox Knox LPN [facility]05-30-2024 Miscellaneous Notes* Telephone Encounter - Rox Knox LPN - 12/31/2023 7:25 AM EDT [facility]-10/21/23 Labs-09/02/23Jun-01/20/24 Rox Knox LPN documented in this encounterHolzer Health System05-30-2024 Telephone encounter Note * Telephone Encounter - Rox Knox LPN - 12/31/2023 7:24 AM EDT [facility]-10/21/23 Labs-09/02/23Jun-01/20/24 Rox Knox LPN [facility]-30-[facility] Miscellaneous Notes* Telephone Encounter - Rox Knox LPN - 12/31/2023 7:24 AM EDT [facility]-10/21/23 Labs-09/02/23Jun-01/20/24 Rox Knox LPN documented in this encounterHolzer Health System05-30-2024 Telephone encounter Note * Telephone Encounter - Rox Knox LPN - 12/31/2023 7:23 AM EDT [facility]-10/21/23 Labs-09/02/23Jun-01/20/24 Rox Knox LPN [facility]05-30-2024 Miscellaneous Notes* Telephone Encounter - Rox Knox LPN - 12/31/2023 7:23 AM EDT [facility]-10/21/23 Labs-09/02/23Jun-01/20/24 Rox Knox LPN documented in this encounterHolzer Health System03-21-2024 Miscellaneous Notes* Telephone Encounter - Ariana Schwarz Ma - 10/22/2023 9:44 AM EDT Orders/Referrals updated in [facility] for [facility]. Referral to [facility] Nutrition faxed to [phone]. Sent most recent OV notes, referral and facesheet. Mamm/US order faxed to [facility] at [phone] with facesheet. Pt sent Crediit message notifying her that this this has been completed. Made pt aware she would need to contact [facility] to setup Imaging, but Nutrition should contact her to setup appt. To update officeif any issues. Ariana Schwarz Ma * Telephone Encounter - Hilton Doty DO - 10/21/2023 9:17 PM EDT Please fax orders to [facility] for breast US, mammogram as well as nutrition referral. These were ordered today Hilton Doty DO documented in this encounterHolzer Health System03-20-2024 History of Present illness Narrative* Hilton Doty DO - 10/21/2023 9:09 PM EDT CC: Wanda Reyna is a 43 year old female who [...] getting used to a new job at [employer] over the last 7-8 months as [...] aswell. would also be interested in seeing Art Dealer at [facility] PAST MEDICAL HISTORY Diagnosis Date MAXIM [...] breast 6 months from previous testing - [facility] RIGHT - US BREAST LTD [...] Derm - METRONIDAZOLE 0.75 % TOPICAL CREAM Hilotn Doty DO Return if no improvement. Follow up with Hilton Doty DO. To ER if develops chest pain, shortness of breath. Discussed risks, benefits, alternatives, and potential side effects of medications. Patient/Guardian expressed understanding and agreed with the plan. See patient instructions. Hilton Doty DO [address] [place] [address] documented in this encounterHolzer Health System03-04-2024 Miscellaneous Notes* Telephone Encounter - Leo Méndez [...] patients eye exam and plaquenil. Please call [phone] documented in this encounterHolzer Health System02-13-2024 Miscellaneous Notes* Telephone Encounter - Char Valencia [...] Doty, as it relates to Lupus. Patient's REFUND SPECIALIST mentioned to her that patients with Lupus [...] advise patient. Thank you. documented in this encounterHolzer Health System02-13-2024 Nurse Note* Rodolfo Salas MA - 09/15/2023 8:28 AM EST PLQ eye exam done on 05/26/2023. No evidence of PLQ toxicity. Report sent for scanning. Rodolfo Salas MA documented in this encounterHolzer Health System02-12-2024 Miscellaneous Notes* Telephone Encounter - Rodolfo Salas [...] to pursue a hysterectomy further with her REFUND SPECIALIST. Thanks, Leo Méndez APRN.FEI * Telephone Encounter - Jo-Ann Roque - 09/14/2023 3:06 PM EST Patient has been plagued by female issues. She is at a point where she needs to make a decision on whether to go forward with hysterectomy (partial or complete) and is seeking input from Dr Conner as it relates to Lupus. Patient's REFUND SPECIALIST mentioned to her that patients with Lupus [...] to have results faxed. documented in this encounterHolzer Health System02-01-2024 Nurse Note* Rodolfo Salas MA - 09/03/2023 9:36 AM EST Labs done on 09/02/2023. Report given to provider for review. TEST RESULTS RANGE WBC 8.7 4.4-11.0 HGB 14.7 12.0-15.0 HCT 44.5 37-47 PLT 301 150-450 AST 12 15-37 ALT 28 13-56 CR 0.90 0.55-1.02 documented in this encounterHolzer Health System01-10-2024 NotePap Smear Specimen AdequacyJanuary 2023 1:46pmComment.Satisfactory for evaluation. Endocervical and/or squamous metaplasticcells (endocervical component)are present.[facility] INTERFACED A#[id number] on above: Satisfactory for evaluation. Endocervical and/or squamous metaplasticcells (endocervical component)are present.08-12-2023 NotePap Smear Specimen Adequacy August 12, 2023 1:46pmComment.Satisfactory for evaluation. Endocervical and/or squamous metaplasticcells (endocervical component)are present.[facility] INTER[facility]ACED A#[id number] on above:Satisfactory for evaluation. Endocervical and/or squamous metaplasticcells (endocervical component)are present.08-12-2023 NotePap Smear Specimen AdequacyJanuary 2023 2:46pmComment.Satisfactory for evaluation. Endocervical and/or squamous metaplasticcells (endocervical component)are present.[facility] INTERFACED A#[id number] on above:Satisfactory for evaluation. Endocervical and/or squamous metaplasticcells (endocervical component)are present.07-10-2023 Miscellaneous Notes* Telephone Encounter - Jaja Motley MA - 07/10/2023 12:54 PM EST Patient has been identified by name and date of : Yes RX INSTRUCTIONS: Patient aware RX will be sent to pharmacy. No need to notify patient. PLQ eye exam done on 05/20/2022 at [facility], [facility]. No evidence of PLQtoxicity. Patient is notified to have PLQ eye exam done EROS and verbalized understanding. Fax results to [phone]. LAST APPOINTMENT: 08/28/2022 UPCOMING APPOINTMENT: 09/02/2023 LABS: [...] notify patient. Norma Garcia documented in this encounterHolzer Health System11-14-2023 Miscellaneous Notes* Telephone Encounter - Rox Villarreal [...] nervous. Winnie Monge LPN documented in this encounterHolzer Health System11-01-2023 History of Present illness Narrative* Hilton Doty DO - 06/03/2023 6:32 PM EDT CC: Wanda Reyna is a 43 year old female who [...] getting used to a new job at [employer] as well. Obesity, weight at 200 [...] with supplements or by diet (goal of 8330-9579 mg/day - [facility] SCREENING 8. Dyslipidemia - ICD9: 272.4, [...] plan. See patient instructions. Hilton Doty DO [address] [place] [address] documented in this encounterHolzer Health System10-02-2023 Miscellaneous Notes* Telephone Encounter - Huma Da Silva LPN - 05/04/2023 1:39 PM EDT Monica--03/02/23 [...] and advise. Ngoc Garcia documented in this encounterHolzer Health System09-12-2023 Miscellaneous Notes* Telephone Encounter - Rodolfo Salas [...] month.She cannot afford an uncovered appointment, owing [facility] $1000 already. She cancelled theappointment with Dr Junior on 04/16/23 for these reasons. She asks that her medication hydrOXYchloroQUINE (PLAQUENIL) 200 mg tablet be sent to [facility] [place], [facility]. Patient has only 4 or 5 tablets left. She asked for a 90-day prescription. She expects to be insured May 03, 2023. She says that she is doing really well and that she checks in with her PCP regularly. Patient will reschedule when she know whether or not [facility] is in what will be her new insurance through [facility]. If Dr Junior requires that she have labs, patient said that she canget them done at [facility] at a reduced cost. Please assist. documented in this encounterHolzer Health System09-01-2023 Miscellaneous Notes* Telephone Encounter - Frank Obando [...] you. Frank Obando RN documented in this encounterHolzer Health System08-01-2023 History of Present illness Narrative* Hilton Doty, DO - 03/03/2023 6:42 AM EDT CC: Wanda Reyna is a 43 year old female who [...] months ago. 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 Leg edema has improved, has diuretic to take as needed HPL, making diet changes as above and weight loss. Undifferentiated connective tissue disease, sicca syndrome, Inflammatory arthropathy, taking Plaquenil, will be following up with her Client Development Manager. PAST MEDICAL HISTORY Diagnosis Date MAXIM positive [...] - ICD9: 714.9, ICD10: M06.4 F/u with Client Development Manager, chronic, stable. 3. Obesity, Class I, BMI [...] plan. See patient instructions. Hilton Doty DO [address] [place] [address] documented in this encounterHolzer Health System06-28-2023 Miscellaneous Notes* Telephone Encounter - Char Valencia LPN - 01/28/2023 9:45 AM EDT Pt. informed Dr. Doty is on Vacation. Message left. * Telephone Encounter - Chikis Sánchez Pss - 01/27/2023 3:06 PM EDT Patient insurance is changing after February 07. Is there any way patient cn be squeezed in this week ornext? Please advise and call patient. documented in this encounterHolzer Health System06-06-2023 Miscellaneous Notes* Telephone Encounter - Jaja Motley MA - 01/06/2023 11:39 AM EDT Patient has been identified by name and date of : Yes RX INSTRUCTIONS: Patient aware RX will be sent to pharmacy. No need to notify patient. PLQ eye exam done on 05/20/2022 at [facility]. No evidence of PLQtoxicity. LAST [...] stop taking it. Script to go to [facility] mail order documented in this encounterHolzer Health System04-27-2023 History of Present illness Narrative* Hilton Doty DO - 11/27/2022 9:32 AM EDT CC: Wanda Reyna is a 42 year old female who [...] months ago. 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 Undifferentiated connective tissue disease, sicca syndrome, Inflammatory arthropathy, taking Plaquenil, will be following up with her Client Development Manager. PAST MEDICAL HISTORY Diagnosis Date MAXIM positive [...] See patient instructions. Hilton Doty DO [address] [place] [address] documented in this encounterHolzer Health System04-24-2023 Instructions* Patient Instructions* Hilton Doty DO - 11/24/2022 2:47 PM EDT Fresca soda Or Gingerale without sugar or Sprite PRIME drinks- strawberry watermelon is good documented in this encounterHolzer Health System03-28-2023 History of Present illness Narrative* Hilton Doty DO - 10/28/2022 7:32 AM EDT CC: Wanda Reyna is a 42 year old female who [...] months ago. She is now working for [employer] and quit her previous job due to [...] Plaquenil, will be following up with her Client Development Manager. PAST MEDICAL HISTORY Diagnosis Date MAXIM positive [...] - ICD9: 782.3, ICD10: R60.0 stable Hilton L Doty, DO Return if no improvement. Follow up with Hilton Doty DO. To ER if develops chest pain, shortness of breath Discussed risks, benefits, alternatives, and potential side effects of medications. Patient/Guardian expressed understanding and agreed with the plan. See patient instructions. Hilton Doty DO [address] [place] [address] documented in this encounterHolzer Health System03-24-2023 Instructions* Patient Instructions* Hilton Doty DO - 10/24/2022 12:17 PM EDT Magnesium supplement at supper 400-500 mg Can consider doing magnesium glycinate, magnesium gluconate supplement for the kind of magnesium documented in this encounterHolzer Health System03-09-2023 Miscellaneous Notes* Telephone Encounter - Lois Holiday - 10/09/2022 10:48 AM EST Patient scheduled Lois Holiday * Telephone Encounter - Hilton Doty DO - 10/08/2022 9:44 PM EST Please make patient follow up appt with me on 10/15 (Thursday) at 720 pm, she is aware of appt timeand date Hilton Doty DO documented in this encounterHolzer Health System01-26-2023 Instructions* Patient Instructions* Priscilla Junior MD - [...] up in 6 months documented in this encounterHolzer Health System01-26-2023 History of Present illness Narrative* Priscilla Junior MD - 08/28/2022 11:59 AM EST Images from the original note were not included. Rheumatology FOLLOW UP VISIT Date of Service: 08/28/2022 Patient: Wanda Reyna Medical Record: [id number] Primary Care Physician: Hilton Doty DO Last Rheumatology visit: 02/01/2021 (with Leo Méndez) Chief Complaint: New Patient INTERVAL HISTORY Wanda Reyna is a 42 year old White female with a history of dyslipidemia, varicose veins, vitamin D deficiency, rosacea, lower extremity edema who presents rheumatology clinic for follow-up of inflammatory arthritis. Chart review reveals she establish care with Dr. Conner 01/2018 for inflammatory polyarthralgias of the fingers, positive MAXIM, Raynaud's, and heat sensitive facial rash. She had been maintained on hydroxychloroquine by previous credit assessment analyst outside of [facility] system and was doing well. Shehas been [...] dactylitis, enthesitis, synovitis, tendinitis LABS Reviewed in [facility], notable for: CBC Latest Ref Rng [...] DNA ANTIBODY W/CONFIRMATION <30 IU/mL - <12 SOURCING MANAGER ANTIBODY <1.0 AI - 0.2 SSA ANTIBODY <1.0 AI - <0.2 SSB ANTIBODY <1.0 AI - 0.5 MELISSA-1 ANTIBODY, IGG <1.0 AI - <0.2 RIBOSOMAL SOURCING MANAGER <1.0 AI - <0.2 SM ANTIBODY <1.0 [...] notable for: No new imaging ASSESSMENT Wanda Reyna is a 42 year old White female [...] which included preparing to see the patient, [id number] patient care, completing clinical documentation, obtaining and/or reviewing separately obtained history, performing a medically appropriate examination, counseling and educating the pat ient/family/caregiver, and ordering medications, tests, or procedures. This note was partially generated with the assistance of Chatous voice recognition software. An attempt was made to correct any dictation errors however there may be some incorrect words, spellings, and punctuation. Priscilla Junior MD Rheumatology Date: August 28, 2022 Time: 11:59 AM documented in this encounterHolzer Health System12-28-2022 Miscellaneous Notes* Telephone Encounter - Char Valencia [...] included. MC message turned into TE. Wanda Reyna [facility] My Chart Rx Pool [...] verified. Dasia Pedroza MA documented in this encounterHolzer Health System12-27-2022 Miscellaneous Notes* Telephone Encounter - Dasia Pedroza MA - 07/29/2022 11:05 AM EST MC message turned into TE. 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 PAST MEDICAL HISTORY Diagnosis Date MAXIM positive [...] ICD10: M06.4 - rx refilled, f/u with Client Development Manager - QSYMIA 11.25 MG-69 MG CAPSULE, EXTENDED [...] with the plan. Hilton Doty DO [address] [place] [address] documented in this encounterHolzer Health System11-23-2022 Nurse Note* Rodolfo Salas MA - 06/25/2022 10:19 AM EST PLQ eye exam done on 05/20/2022 at [facility]. No evidence of PLQtoxicity. Report sent for scanning. Rodolfo Salas MA documented in this encounterHolzer Health System10-18-2022 Miscellaneous Notes* Telephone Encounter - Ayde Antonio Ma - 05/20/2022 12:39 PM EDT Last office visit: 04/23/22 F/u scheduled: 07/23/22 Ayde Antonio Ma documented in this encounterHolzer Health System09-21-2022 History of Present illness Narrative* Hilton Doty DO - 04/23/2022 10:22 PM EDT CC: Wanda Reyna is a 42 year old female who [...] rx is complete. Has been working with Art Dealer specialist at [facility] in the Medical nutrition therapy department [...] are also improving. She has met with Art Dealer and she has been keeping track of food intake daily. She isalso walking more for exercise and wants to be more diligent with the exercise as well. Is excited to see if this helps her inflammatory arthritis- is taking her medications per Dr. 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 Hilton Doty DO Return if no improvement. Follow up with Hilton Doty DO. To ER if develops chest pain, shortness of breath Discussed risks, benefits, alternatives, and potential side effects of medications. Patient/Guardian expressed understanding and agreed with the plan. See patient instructions. Hilton Doty DO [address] [place] [address] documented in this encounterHolzer Health System07-13-2022 History of Present illness Narrative* Delphine Floyd APRN.BUNCH TRIMMER MOLD - 02/12/2022 4:01 PM EDT Wanda is [...] L2 SAB1 IAB0 Ectopic0 Multiple0 Live Births0 Fruit Shipper History LMP: 12/29/2020, IUD Age at Menarche: Age at First : Age at Menopause: Fruit Shipper History Comments: Sexual Activity: Yes; Male; tubal [...] external genitalia normal, normal Bartholin's glands, urethra, [place]'s glands, no vulvar lesions, no cervical lesions, [...] needed Delphine Floyd APRN.FEI documented in this encounterHolzer Health System07-02-2022 Miscellaneous Notes* Telephone Encounter - Gina Sparks LPN - 02/01/2022 11:33 AM EDT Patient calling her came home with paper rx for the QSYMIA and she said rx has to go to [facility], [facility]. Pending rx to file. Please advise Patient [...] Provider: HILTON DOTY DO documented in this encounterHolzer Health System06-20-2022 Instructions* Patient Instructions* Hilton Doty DO - 01/20/2022 9:46 AM EDT Voltaren 1% gel pea sized amount 1-3 times a day (AM and PM) Can use a thumb spica splint at bed and as needed if thumb worsens. documented in this encounterHolzer Health System06-20-2022 History of Present illness Narrative* Hilton Doty DO - 01/20/2022 9:25 AM EDT CC: Wanda Reyna is a 41 year old female who [...] rx is complete. Has been working with Art Dealer specialist at [facility] in the Medical nutrition therapy department [...] are also improving. She has met with Art Dealer and she has been keeping track of food intake daily. She isalso walking more for exercise and wants to be more diligent with the exercise as well. Is excited to see if this helps her inflammatory arthritis- is taking her medications per Dr. 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 HgbA1c greater or equal to 6.5% is considered diagnostic of diabetes. 10/23/2018 5.3 4.3 - 5.6 % Final Comment: [place] [employer] guidelines indicate that patients with [...] ICD9: 714.9, ICD10: M06.4 - f/u with Client Development Manager, leg edema has improved. 6. Bilateral leg [...] agreed with the plan. Hilton Doty DO [address] [place] [address] documented in [facility]22 Miscellaneous Notes* Telephone Encounter - Hilton Doty [...] AM EDT Please send medication to [facility]. Patient asking for 90 day * Telephone Encounter - Dafne Marks - 01/06/2022 8:17 AM EDT Patient calling today to changing her pharmacy for medication chlorthalidone (HYGROTON) 25 mg tablet. Please send medication to documented in this encounterHol[facility]23-2022 Miscellaneous Notes* Telephone Encounter - Rox Knox LPN - 12/23/2021 8:03 AM EDT Patient phones requesting refills as follows: Pending Prescriptions Disp Refills CHLORTHALIDONE 25 MG TABLET 90 tablet 0 Sig: TAKE 1 TABLET BY MOUTH ONCE DAILY NEEDED FOR EDEMA MAZIN: Yes Monica-09/23/21 Labs-04/16/21 NOV-01/20/22 Please review and advise. Rox Knox LPN documented in this encounterHolzer [facility] System05-13-2022 Miscellaneous Notes* Telephone Encounter - Jaja Motley [...] be seen. Please advice documented in this encounterHolzer [facility] SystemEvaluation note* Diagnosis Inflammatory arthritis Unspecified inflammatory polyarthropathy [facility] Diagnosis Dyslipidemia- Primary Other and unspecified hyperlipidemia Encounter for screening mammogram for malignant neoplasm of breast Other screening mammogram LIVIA (generalized anxiety disorder) Generalized anxiety disorder Eczematous dermatitis of upper eyelids of both eyes Inflammatory polyarthropathy (HCC) Unspecified inflammatory polyarthropathy Bilateral leg edema Edema Obesity, Class I, BMI 30-34.9 Obesity, unspecified [facility]* Diagnosis Obesity, Class III, BMI 40-49.9 (morbid obesity) (HCC) Morbid obesity [facility] Diagnosis Encounter for gynecological examination with abnormal finding- Primary Routine gynecological examination Pain due to intrauterine contraceptive device (IUD), initial encounter ([facility]) Postcoital bleeding Vaginal discharge Leukorrhea, not specified as infective [facility] Diagnosis LIVIA (generalized anxiety disorder)- Primary Generalized anxiety disorder Obesity, Class III, BMI 40-49.9 (morbid obesity) (HCC) Morbid obesity Inflammatory polyarthropathy (HCC) Unspecified inflammatory polyarthropathy [facility]* Diagnosis Dyslipidemia- Primary Other and unspecified hyperlipidemia LIVIA (generalized anxiety disorder) Generalized anxiety disorder Inflammatory polyarthropathy (HCC) Unspecified inflammatory polyarthropathy Obesity, Class I, BMI 30-34.9 Obesity, unspecified Rosacea Bilateral leg edema Edema [facility]* Diagnosis Inflammatory polyarthropathy (HCC) Unspecified inflammatory polyarthropathy Dyslipidemia Other and unspecified hyperlipidemia Obesity, Class I, BMI 30-34.9 Obesity, unspecified [facility]* Diagnosis Undifferentiated connective tissue disease (HCC)- Primary Unspecified diffuse connective tissue disease Inflammatory arthritis Unspecified inflammatory polyarthropathy Encounter for long-term (current) use of medications Encounter for long-term (current) use of other medications Facial rash Rash and other nonspecific skin eruption Sicca syndrome (HCC) Sicca syndrome documented [facility]* Diagnosis Dyslipidemia- Primary Other and unspecified hyperlipidemia Inflammatory polyarthropathy (HCC) Unspecified inflammatory polyarthropathy Obesity, Class I, BMI 30-34.9 Obesity, unspecified Hot flashes Symptomatic menopausal or female climacteric states Bilateral leg edema Edema [facility]* Diagnosis LIVIA (generalized anxiety disorder)- Primary Generalized anxiety disorder Inflammatory polyarthropathy (HCC) Unspecified inflammatory polyarthropathy Dyslipidemia Other and unspecified hyperlipidemia Obesity, Class I, BMI 30-34.9 Obesity, unspecified Raynaud's phenomenon without gangrene Situational depression Adjustment disorder with depressed mood [facility] Diagnosis Encounter for screening mammogram for breast cancer [facility] Diagnosis Inflammatory arthritis Unspecified inflammatory polyarthropathy documented in this encounter [facility] note* Diagnosis Dyslipidemia- Primary Other and unspecified hyperlipidemia Inflammatory polyarthropathy (HCC) Unspecified inflammatory polyarthropathy Obesity, Class I, BMI 30-34.9 Obesity, unspecified LIVIA (generalized anxiety disorder) Generalized anxiety disorder Raynaud's phenomenon without gangrene Bilateral leg edema Edema Vitamin D deficiency Unspecified vitamin D deficiency documented in this encounter [facility] note* Diagnosis Bilateral leg edema Edema documented in this encounter [facility] note* Diagnosis Inflammatory arthritis Unspecified inflammatory polyarthropathy documented in this encounter [facility] note* Diagnosis LIVIA (generalized anxiety disorder) Generalized anxiety disorder Situational depression Adjustment disorder with depressed mood documented in this encounter [facility] note* Diagnosis LIVIA (generalized anxiety disorder)- Primary [...] with other complications documented in this encounter [facility] note* Diagnosis Onset Date Resolution Status Abnormal uterine bleeding (AUB) acute Dysmenorrhea chronic Menorrhagia chronic Encounter for IUD removal no neactive Work Phone: Evaluation note* Diagnosis Inflammatory arthritis Unspecified inflammatory polyarthropathy documented in this encounter [facility] note* Diagnosis Onset Date Resolution Status Abnormal uterine bleeding (AUB) acute Dysmenorrhea chronic Menorrhagia chronic Encounter for IUD removal no neactive Abnormal uterine bleeding (AUB) acute Fibroids acute Dysmenorrhea chronic Menorrhagia chronic Work Phone: Evaluation note* Diagnosis Onset Date Resolution Status Abnormal uterine bleeding (AUB) acute Dysmenorrhea chronic Menorrhagia chronic Encounter for IUD removal no neactive Abnormal uterine bleeding (AUB) acute Fibroids acute Dysmenorrhea chronic Menorrhagia chronic Cervical high risk HPV (leonard n papillomavirus) test positive acute Menorrhagia chronic Work Phone: Evaluation note* Diagnosis Inflammatory polyarthropathy (HCC)- Primary Unspecified inflammatory polyarthropathy Abnormal mammogram of right breast Obesity, Class I, BMI 30-34.9 Obesity, unspecified Inflammatory arthritis Unspecified inflammatory polyarthropathy Dyslipidemia Other and unspecified hyperlipidemia LIVIA (generalized anxiety disorder) Generalized anxiety disorder Raynaud's phenomenon without gangrene Vitamin D deficiency Unspecified vitamin D deficiency Rosacea [facility] Diagnosis Onset Date Resolution Status Abnormal [...] posure to other viral communicable disease acute Work Phone: Evaluation note* Diagnosis Bilateral leg edema Edema documented [facility]* Diagnosis Situational insomnia Transient disorder of initiating or maintaining sleep documented [facility] this encounter [facility]* Diagnosis Dyslipidemia- Primary Other and unspecified hyperlipidemia LIVIA (generalized anxiety disorder) Generalized anxiety disorder Inflammatory polyarthropathy (HCC) Unspecified inflammatory polyarthropathy Obesity, Class I, BMI 30-34.9 Obesity, unspecified Bilateral leg edema Edema Vitamin D deficiency Unspecified vitamin D deficiency Situational depression Adjustment disorder with depressed mood [facility]* Diagnosis Lower thoracic back pain- Primary Acute low back pain with sciatica, sciatica laterality unspecified, unspecified back pain laterality Lower thoracic back pain Acute low back pain with sciatica, sciatica laterality unspecified, unspecified back pain laterality [facility]* Diagnosis Inflammatory arthritis Unspecified inflammatory polyarthropathy Bilateral leg edema Edema LIVIA (generalized anxiety disorder) Generalized anxiety disorder documented [facility]* Diagnosis Lower thoracic back pain Acute low back pain with sciatica, sciatica laterality unspecified, unspecified back pain laterality [facility]* Diagnosis Nausea- Primary Nausea alone SOB (shortness of breath) Shortness of breath Hypokalemia Hypopotassemia Fatigue, unspecified type Inflammatory arthritis Unspecified inflammatory polyarthropathy Bilateral leg edema Edema Situational depression Adjustment disorder with depressed mood Obesity, Class I, BMI 30-34.9 Obesity, unspecified Inflammatory polyarthropathy (HCC) Unspecified inflammatory polyarthropathy Dyslipidemia Other and unspecified hyperlipidemia [facility]* Diagnosis Hypokalemia- Primary Hypopotassemia documented [facility]* Diagnosis Encounter for screening mammogram for breast cancer [facility]* Diagnosis Inflammatory arthritis Unspecified inflammatory polyarthropathy documented in this encounter [facility] note* Diagnosis Varicose veins of both lower extremities with complications- Primary Hypokalemia Hypopotassemia LIVIA (generalized anxiety disorder) Generalized anxiety disorder Situational depression Adjustment disorder with depressed mood Obesity, Class I, BMI 30-34.9 Obesity, unspecified Inflammatory polyarthropathy (HCC) Unspecified inflammatory polyarthropathy Dyslipidemia Other and unspecified hyperlipidemia Inflammatory arthritis Unspecified inflammatory polyarthropathy Perimenopausal symptoms Symptomatic menopausal or female climacteric states [facility]* Diagnosis Bilateral leg edema Edema documented [facility]* Diagnosis Bilateral leg edema- Primary Edema SOB (shortness of breath) Shortness of breath Obesity, Class I, BMI 30-34.9 Obesity, unspecified documented [facility] encounter [facility]* Diagnosis Bilateral leg edema- Primary Edema SOB (shortness of breath) Shortness of breath documented [facility] this [facility]* Diagnosis LIVIA (generalized anxiety disorder) Generalized anxiety disorder [facility] Diagnosis SOB (shortness of breath)- Primary [...] phenomenon without gangrene [facility]* Diagnosis LIVIA (generalized anxiety disorder)- Primary Generalized anxiety disorder Obesity, Class I, BMI 30-34.9 Obesity, unspecified Inflammatory polyarthropathy (HCC) Unspecified inflammatory polyarthropathy Dyslipidemia Other and unspecified hyperlipidemia Inflammatory arthritis Unspecified inflammatory polyarthropathy Perimenopausal symptoms Symptomatic menopausal or female climacteric states SOB (shortness of breath) Shortness of breath Varicose veins of both lower extremities with complications [facility]* Diagnosis Left leg pain- Primary Pain in limb Leg heaviness Other musculoskeletal symptoms referable to limbs Varicose veins of both legs with edema LIVIA (generalized anxiety disorder) Generalized anxiety disorder Perimenopausal symptoms Symptomatic menopausal or female climacteric states Inflammatory polyarthropathy (HCC) Unspecified inflammatory polyarthropathy Dyslipidemia Other and unspecified hyperlipidemia Fatigue, unspecified type [facility] Diagnosis LIVIA (generalized anxiety disorder) Generalized anxiety disorder Situational depression Adjustment disorder with depressed mood [facility]* Diagnosis Leg pain, bilateral- Primary Pain in limb Varicose veins of both legs with edema Inflammatory polyarthropathy (HCC) Unspecified inflammatory polyarthropathy Inflammatory arthritis Unspecified inflammatory polyarthropathy Left leg pain Pain in limb Leg heaviness Other musculoskeletal symptoms referable to limbs Obesity, Class I, BMI 30-34.9 Obesity, unspecified Dyslipidemia Other and unspecified hyperlipidemia [facility]* Diagnosis Situational insomnia Transient disorder of initiating or maintaining sleep [facility] Additional Instructions Cardiac workup negative to ED. This included her D-dimer. Chest x-ray negative. Follow-up with your doctor for further testing. Work Phone: Progress note Author Laura Rai [facility] Note Date/Time May 18, 2025 1 1:50am [facility] [address] [place] [address] OFFICE VISIT Date of Service: 05/18/25 MR#: [id number] Acct: [id number] Name: WANDA REYNA Rep #: [id number] Provider: JAYE Montero Age/Sex: 45/F Location: [facility] Status: Signed Intake Vital Signs 01/10/25 09:01 05/04/25 11:51 05/18/25 11:35 Height 5 ft 6 in 5 ft 6 in Weight: 195 lb BP 136/82 H Blood Pressure Location Lt brachial Position Sitting Respiration 16 Pulse 67 Pulse Source Monitor Temp 97.8 F Temp Source Temporal Pulse Oximetry (%) 98 Oxygen Delivery Method room air Intake Visit Reasons: Post Sclerotherapy 2-4 WK FU Is patient in pain?: No Allergies Penicillins (PCN) Allergy (Severe, Verified 05/18/25 11:36) Anaphylaxis Medications ?Medication ?Instructions ?Recorded ?Confirmed ?Type lorazepam 0.5 mg tablet 0.5 mg PO DAILY PRN PRN Anxi ety 03/12/20 05/18/25 History cholecalciferol (vitamin D3) 125 125 mcg PO DAILY 09/0405/18/25 History mcg (5,000 unit) capsule phentermine 11.25 mg-topiramate ER 1 cap PO DAILY 09/0405/18/25 History 69 mg capsule,[id number] mphas (Qsymia) trazodone 50 mg tablet 50 mg PO QHS 09/25/23 History naproxen 500 mg tablet (Naprosyn) 500 mg PO BID PRN pa in #20 tabs 02/05/24 05/18/25 Rx ondansetron 4 mg disintegrating 4 mg PO Q8H PRN PRN Na usea #10 tabs 02/05/24 05/18/25 Rx tablet bupropion HCl 75 mg tablet 150 mg PO BID 12/12/2405/03 History fluoxetine 10 mg capsule (Prozac) 10 mg PO QDAY 05/18/25 History spironolactone 25 mg tablet 25 mg PO QDAY 12/12/24 History tramadol 50 mg tablet 50 mg PO Q8 PRN pain 5 05/18/25 History hydroxychloroquine 200 mg tablet 200 mg PO DAILY 05/1805/18/25 History (Plaquenil) Is last menstrual period known: No Post menopausal: No Patient : No Have you fallen in the past year?: No PFSH Medical History Status post hysteroscopy [...] History current occupational status: employed 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 She has already noticed improvement in her LLE symptoms since the procedure. She has continued to wear compression stockings as advised. She still has some symptoms with intermittent achiness in her RLE but not to the point where she would wish to pursue procedural intervention there. ROS General General: Yes weight change; No appetite, fatigue, colon cancer, breast cancer or weakness HEENT HEENT: No difficulty swallowing, eye injury, eye surgery, swollen glands or hoarseness Endo Endocrine: Yes cold intolerance; No thyroid disease, diabetes mellitus, thyroid cancer, Hair loss or heat intolerance Skin Skin: No rash or changing moles Additional Details: bruises on legs Musc Musculoskeletal: Yes arthritis and joint pain; [...] No wheezing Gastro Gastrointestinal: No abdominal pain, Yes nausea or vomiting, No diarrhea, No constipation, [...] confusion, No convulsions, No disequilibrium, No dizziness, Yes localized weakness (heaviness, achey), No frequent falls, No headache(s), No lack of coordination, No loss of vision, No memory loss, Yes numbness, No other visual disturbances, No radicular pain, Yes restless legs, No sensory deficit, No syncope, Yes tingling, No tremor(s), No weakness and No other Exam Const General: cooperative, healthy appearing, comfortable and no acute distress Nutritional Appearance: average body habitus Orientation: alert, awake and oriented x3 HENMT Head: normocephalic and atraumatic Ears: hearing grossly normal bilaterally and external ears normal Nose: external nose normal Eyes General: appearance normal, both eyes and all related structures Neck Neck: normal visual inspection Resp Effort & Inspection: normal respiratory effort, able to speak in complete sentences, no audible wheezes, not labored and no stridor Cardio Rate: regular rate Skin General: no rashes or lesions noted Neuro General: moves all extremities Speech: speech normal Psych Appearance: grossly normal Mental Status: mental status grossly normal Mood: congruent mood Affect: normal affect Speech and Movement: speech and movement normal Attitude: cooperative Judgment: judgment good Coding Level of Care Code Off vis,est,level 2 Diagnoses Venous insufficiency I87.2 Assessment and Plan Assessment and Plan (1) Venous insufficiency: Status: Chronic Plan: She is s/p L SSV foam ablation and doing very well. Plan will be for continued consistent use of compression stockings, leg elevation, and exercise for best results and long-term prevention. Will plan for return to the office in 1 year to reassess or sooner as needed. Clinical Quality Measures Falls Risk Screening/Assistive Devices Have you fallen in the past year?: No 05/18/25 1204 <Electronically signed by Laura CEE> Date _ Laura CEE 05/18/25 1214<Electronically signed by Derek Barone MD> Cosigner Signature: Date (if applicable) Derek Barone MD CC: Dr. Hilton Doty, DO ~ [facility] Work Phone: Reason for referral (narrative)* Diagnostic Procedure Only (Routine) - Pending Review Specialty Diagnoses / Procedures Referred By Contac t Referred To Contact [facility] Diagnoses Encounter for screening mammogram for malignant neoplasm of breast Procedures CINDY SCREENING W KYMBERLY SCREENING DIGITAL BREAST TOMOSYNTHESIS BI SCREENING MAMMOGRAPHY BI 2-VIEW BREAST INC CAD Hilton Doty, DO [address] [place] [address] [facility] [address] [place] [address] Referral ID Status Reason Start Date Expiration Date Visits Requested Visits Authorized [id number] Pending Review Auto-Generat ed Referral 07/03/2022 02/19/2023 1 1 T [facility] for referral (narrative)* Diagnostic Procedure Only (Routine) - Pending Review Specialty Diagnoses / Procedures Referred By Contac t Referred To Contact [facility] Diagnoses Pain due to intrauterine contraceptive device (IUD), initial encounter (HCC) Postcoital bleeding Procedures PELVIC US WHI US PELVIC NONOBSTETRIC REAL-TIME IMAGE COMPLETE Delphine Floyd APRN.BUNCH TRIMMER MOLD [address] [place] [address] [facility] [address] [place] [address] Referral ID Status Reason Start Date Expiration Date Visits Requested Visits Authorized [id number] Pending Review Auto-Generat ed Referral 02/12/2022 02/12/2023 1 1 T [facility] for referral (narrative)* Diagnostic Procedure Only (Routine) - Pending Review Specialty Diagnoses / Procedures Referred By Contac t Referred To Contact [facility] Diagnoses Encounter for screening mammogram for breast cancer Procedures CINDY SCREENING SCREENING MAMMOGRAPHY BI 2-[place] [address] [place] [address] [facility] [address] [place] [address] Referral ID Status Reason Start Date Expiration Date Visits Requested Visits Authorized [id number] Pending Review Auto-Generat ed Referral 12/24/2022 01/23/2024 1 1 [facility] for referral (narrative)* Diagnostic Procedure Only (Urgent) - Closed Specialty Diagnoses / Procedures Referred By Contac t Referred To Contact [facility] Diagnoses Lower thoracic back pain Acute low back pain with sciatica, sciatica laterality unspecified, unspecified back pain laterality Procedures XR LUMBAR GENERAL 3V AP/LAT/L5-S1 RADEX SPINE LUMBOSACRAL 2/3 VIEWS Doris Mendze APRN.COOK ROOM SUPERVISOR [address] [place] [address] [place] [address] Referral ID Status Reason Start Date Expiration Date V isits Requested Visits Authorized [id number] Closed Auto-Generate d Referral 02/08/2024 03/09/2025 1 1 Electronically signed by Doris Mendez LINK WIRE FABRIC MACHINE TENDER.COOK ROOM SUPERVISOR at 02/08/2024 4:22 PM EDT * Diagnostic Procedure Only (Urgent) - Closed Specialty Diagnoses / Procedures Referred By Contac t Referred To Contact [facility] Diagnoses Lower thoracic back pain Acute low back pain with sciatica, sciatica laterality unspecified, unspecified back pain laterality Procedures XR THORACIC GENERAL 3V AP/LAT/SWIMMERS RADEX SPINE THORACIC 3 VIEWS Doris Mendez APRN.COOK ROOM SUPERVISOR [address] [place] [address] [place] [address] Referral ID Status Reason Start Date Expiration Date V isits Requested Visits Authorized [id number] Closed Auto-Generate d Referral 02/08/2024 03/09/2025 1 1 Electronically signed by Doris Mendez LINK WIRE FABRIC MACHINE TENDER.COOK ROOM SUPERVISOR at 02/08/2024 4:22 PM EDT [facility] for referral (narrative)* Diagnostic Procedure Only (Urgent) - Closed Specialty Diagnoses / Procedures Referred By Contac t Referred To Contact [facility] Diagnoses Lower thoracic back pain Acute low back pain with sciatica, sciatica laterality unspecified, unspecified back pain laterality Procedures XR LUMBAR GENERAL 3V AP/LAT/L5-S1 RADEX SPINE LUMBOSACRAL 2/3 VIEWS Doris Mendez APRN.BUNCH TRIMMER MOLD [address] [place] [address] [place] [address] Referral ID Status Reason Start Date Expiration Date V isits Requested Visits Authorized [id number] Closed Auto-Generate d Referral 02/08/2024 03/09/2025 1 1 * Diagnostic Procedure Only (Urgent) - Closed Specialty Diagnoses / Procedures Referred By Cristo xiao Referred To Contact [facility] Diagnoses Lower thoracic back pain Acute low back pain with sciatica, sciatica laterality unspecified, unspecified back pain laterality Procedures XR THORACIC GENERAL 3V AP/LAT/SWIMMERS RADEX SPINE THORACIC 3 VIEWS Doris Mendez APRN.BUNCH TRIMMER MOLD [address] [place] [address] [place] [address] Referral ID Status Reason Start Date Expiration Date V isits Requested Visits Authorized [id number] Closed Auto-Generate d Referral 02/08/2024 03/09/2025 1 1 [facility] for referral (narrative)* Diagnostic Procedure Only (Routine) - New Request Specialty Diagnoses / Procedures Referred By Cristo xiao Referred To Contact [facility] Diagnoses Encounter for screening mammogram for breast cancer Procedures CINDY SCREENING W KYMBERLY SCREENING DIGITAL BREAST TOMOSYNTHESIS BI SCREENING MAMMOGRAPHY BI 2-VIEW BREAST INC CAD Hilton Doty DO [address] [place] [address] Br Imaging [address] [facility] [place] [address] Referral ID Status Reason Start Date Expiration Date Visits Requested Visits Authorized [id number] New Request Auto-Generat ed Referral 05/11/2024 06/10/2025 1 1 [facility] for referral (narrative)No reason for referral information availableWMercy [facility] Work Phone: Reason for visit Narrative* Diagnostic Procedure Only (Urgent) - Closed Specialty Diagnoses / Procedures Referred By Cristo t Referred To Contact XR IMAGING Diagnoses Lower thoracic back pain Acute low back pain with sciatica, sciatica laterality unspecified, unspecified back pain laterality Procedures XR LUMBAR GENERAL 3V AP/LAT/L5-S1 RADEX SPINE LUMBOSACRAL 2/3 VIEWS Doris Mendez APRN.[employer] [address] [place] [address] [place] [address] Referral ID Status Reason Start Date Expiration Date V isits Requested Visits Authorized [id number] Closed Auto-Generate d Referral 02/08/2024 03/09/2025 1 1 [facility] Reason for Referral Specialty Diagnoses / Procedures Referred By Cristo xiao Referred To Contact Vascular Surgery Diagnoses Varicose veins of both lower extremities with pain Procedures CONSULT TO VASCULAR SURGERY OFFICE/OUTPATIENT [facility] MDM 60-74 MINUTES Hilton Doty, DO [address] [place] [address] Referral ID Status Reason Start Date Expiration Date Visits Requested Visits Authorized [id number] Authorized PCP Requested Referral 06/03/2023 06/02/2024 1 1 Specialty Diagnoses / Procedures Referred By Cristo xiao Referred To Contact BR IMAGING Diagnoses Encounter for screening mammogram for malignant neoplasm of breast Procedures CINDY SCREENING SCREENING MAMMOGRAPHY BI 2-VIEW BREAST INC CAD Hilton Doty, DO [address] [place] [address] Br Imaging [address] [place] [address] Referral ID Status Reason Start Date Expiration Date Visits Requested Visits Authorized [id number] Pending Review Auto-Generat ed Referral 06/03/2023 07/02/2024 1 1 Specialty Diagnoses / Procedures Referred By Cristo xiao Referred To Contact Nutrition Diagnoses Inflammatory polyarthropathy (HCC) Obesity, Class III, BMI 40-49.9 (morbid obesity) (HCC) Procedures CONSULT TO NUTRITION THERAPY MEDICAL NUTRITION ASSMT&IVNTJ INDIV EACH 15 FL MEDICAL NUTRITION ASSMT&IVNTJ INDIV EACH 15 FL MEDICAL NUTRITION ASSMT&IVNTJ INDIV EACH 15 FL MEDICAL NUTRITION ASSMT&IVNTJ INDIV EACH 15 [place] Doty, Hilton L, DO [address] [place] [address] Referral ID Status Reason Start Date Expiration Date Visits Requested Visits Authorized [id number] Authorized PCP Requested Referral 06/03/2023 06/02/2024 1 1 Specialty Diagnoses / Procedures Referred By Contac t Referred To Contact Nutrition Diagnoses Inflammatory polyarthropathy (HCC) Obesity, Class I, BMI 30-34.9 Procedures CONSULT TO NUTRITION THERAPY MEDICAL NUTRITION ASSMT&IVNTJ INDIV EACH 15 FL Hilton Doty, DO [address] [place] [address] Referral ID Status Reason Start Date Expiration Date Visits Requested Visits Authorized [id number] Authorized PCP Requested Referral 10/21/2023 10/20/2024 1 4 Specialty Diagnoses / Procedures Referred By Contac t Referred To Contact BR IMAGING Diagnoses Abnormal mammogram of right breast Procedures US BREAST LTD RIGHT US BREAST UNI REAL TIME WITH IMAGE LIMITED Hilton Doty, DO [address] [place] [address] Br Imaging [address] [place] [address] Referral ID Status Reason Start Date Expiration Date Visits Requested Visits Authorized [id number] Pending Review Auto-Generat ed Referral 10/21/2023 11/19/2024 1 1 Specialty Diagnoses / Procedures Referred By Contac t Referred To Contact BR IMAGING Diagnoses Abnormal mammogram of right breast Procedures CINDY DIAGNOSTIC RIGHT DIAGNOSTIC MAMMOGRAPHY COMPUTER-AIDED DETCJ UNI Hilton Doty, DO [address] [place] [address] Br Imaging [address] [place] [address] Referral ID Status Reason Start Date Expiration Date Visits Requested Visits Authorized [id number] Pending Review Auto-Generat ed Referral 10/21/2023 11/19/2024 1 1 Specialty Diagnoses / Procedures Referred By Contac t Referred To Contact Vascular Surgery Diagnoses Varicose veins of both lower extremities with complications Procedures CONSULT TO VASCULAR SURGERY OFFICE/OUTPATIENT [facility] 60 MINUTES Hilton Doty, DO [address] [place] [address] Referral ID Status Reason Start Date Expiration Date Visits Requested Visits Authorized [id number] Authorized PCP Requested Referral 08/01/2025 1 1 [...] Admit Date Varicose veins of lower extremity ua 2024 10:57am Varicose veins of lower extremity [...] MNT November 28, 2024 8:0 0am Annual (REFUND SPECIALIST) December 12, 2024 9:20a m Reason for Visit Admit Date Varicose veins of lower extremity ua 2024 10:57am Varicose veins of lower extremity [...] MNT November 28, 2024 8:0 0am Annual (REFUND SPECIALIST) December 12, 2024 9:20a m Discuss LLE, [...] MNT November 28, 2024 8:0 0am Annual (REFUND SPECIALIST) December 12, 2024 9:20a m Discuss LLE, [...] MNT November 28, 2024 8:0 0am Annual (REFUND SPECIALIST) December 12, 2024 9:20a m Discuss LLE, prior to procedure December 3:31pm SWELLING, LT LEG December 30, 2024 2:49p m MNT January 02, 2025 4:01p m Venous insufficiency (chronic) (peripher al) January 10, 2025 8:36am Venous insufficiency (chronic) (peripher al) January 10, 2025 12:10pm E-ORDER January 12, 2025 1:38 pm s/p IVC venogram DOS: 01/10/25January 7:58am Chief Complaint Admit Date Varicose veins September [...] MNT November 28, 2024 8:0 0am Annual (REFUND SPECIALIST) December 12, 2024 9:20a m Discuss LLE, prior to procedure December 3:31pm SWELLING, LT LEG December 30, 2024 2:49p m MNT January 02, 2025 4:01p m Reason for Visit Admit Date Varicose veins of lower extremity November 02, 2024 11:30am Encounter for routine gynecological exam ination December 12, 2024 9:20am Symptomatic varicose veins December 19 3:31pm Venous insufficiency January 13, 2025 7:5 8am Chief Complaint Admit Date SCREENING September 26, 2024 7:59am SOB October 13, 2024 5:1 4pm LT LEG PAIN October 14, 2024 10: 48am SOB October 26, 2024 12: 40pm 8-12 WK FU November 02, 2024 11:3 0am SOB, WHEEZING November 10, 2024 6:3 1am MNT November 28, 2024 8:0 0am Annual (REFUND SPECIALIST) December 12, 2024 9:20a m Discuss LLE, prior to procedure December 3:31pm SWELLING, LT LEG December 30, 2024 2:49p m MNT January 02, 2025 4:01p m Venous insufficiency (chronic) (peripher al) January 10, 2025 8:36am Venous insufficiency (chronic) (peripher al) January 10, 2025 12:10pm E-ORDER January 12, 2025 1:38 pm s/p IVC venogram DOS: 01/10/25January 7:58am Chief Complaint Admit Date SOB October 13, 2024 5:1 4pm LT LEG PAIN October 14, 2024 10: 48am SOB October 26, 2024 12: 40pm 8-12 WK FU November 02, 2024 11:3 0am SOB, WHEEZING November 10, 2024 6:3 1am MNT November 28, 2024 8:0 0am Annual (REFUND SPECIALIST) December 12, 2024 9:20a m Discuss LLE, prior to procedure December 3:31pm SWELLING, LT LEG December 30, 2024 2:49p m MNT January 02, 2025 4:01p m Venous insufficiency (chronic) (peripher al) January 10, 2025 8:36am Venous insufficiency (chronic) (peripher al) January 10, 2025 12:10pm E-ORDER January 12, 2025 1:38 pm s/p IVC venogram DOS: 01/10/25January 7:58am Chief Complaint Admit Date SOB October 13, 2024 5:1 4pm LT LEG PAIN October 14, 2024 10: 48am SOB October 26, 2024 12: 40pm 8-12 WK FU November 02, 2024 11:3 0am SOB, WHEEZING November 10, 2024 6:3 1am MNT November 28, 2024 8:0 0am Annual (REFUND SPECIALIST) December 12, 2024 9:20a m Discuss LLE, prior to procedure December 3:31pm SWELLING, LT LEG December 30, 2024 2:49p m MNT January 02, 2025 4:01p m Venous insufficiency (chronic) (peripher al) January 10, 2025 8:36am Venous insufficiency (chronic) (peripher al) January 10, 2025 12:10pm E-ORDER January 12, 2025 1:38 pm s/p IVC venogram DOS: 01/10/25January 7:58am LLE; LT LEG PAIN/HEAVINESS February 01 9:01am LLE; LT LEG PAIN/HEAVINESS February 01 10:26am 1 M FU February 06, 2025 12:56 pm Reason for Visit Admit Date Varicose veins of lower extremity November 02, 2024 11:30am Encounter for routine gynecological exam ination December 12, 2024 9:20am Symptomatic varicose veins December 19 3:31pm Venous insufficiency January 13, 2025 7:5 8am Venous insufficiency February 06, 2025 12:5 6pm Chief Complaint Admit Date MNT November 28, 2024 8:0 0am Annual (REFUND SPECIALIST) December 12, 2024 9:20a m Discuss LLE, prior to procedure December 3:31pm SWELLING, LT LEG December 30, 2024 2:49p m MNT January 02, 2025 4:01p m Venous insufficiency (chronic) (peripher al) January 10, 2025 8:36am Venous insufficiency (chronic) (peripher al) January 10, 2025 12:10pm E-ORDER January 12, 2025 1:38 pm s/p IVC venogram DOS: 01/10/25January 7:58am LLE; LT LEG PAIN/HEAVINESS February 01 9:01am LLE; LT LEG PAIN/HEAVINESS February 01 10:26am 1 M FU February 06, 2025 12:56 pm Reason for Visit Admit Date Encounter for routine gynecological exam ination December 12, 2024 9:20am Symptomatic varicose veins December 19 3:31pm Venous insufficiency January 13, 2025 7:5 8am Venous insufficiency February 06, 2025 12:5 6pm Chief Complaint Admit Date MNT November 28, 2024 8:0 0am Annual (REFUND SPECIALIST) December 12, 2024 9:20a m Discuss LLE, prior to procedure December 3:31pm SWELLING, LT LEG December 30, 2024 2:49p m MNT January 02, 2025 4:01p m Venous insufficiency (chronic) (peripher al) January 10, 2025 8:36am Venous insufficiency (chronic) (peripher al) January 10, 2025 12:10pm E-ORDER January 12, 2025 1:38 pm s/p IVC venogram DOS: 01/10/25January 7:58am LLE; LT LEG PAIN/HEAVINESS February 01 9:01am LLE; LT LEG PAIN/HEAVINESS February 01 10:26am 1 M FU February 06, 2025 12:56 pm Discuss Ablation March 23, 2025 8: 29am Chief Complaint Admit Date Annual (REFUND SPECIALIST) December 12, 2024 9:20a m Discuss LLE, prior to procedure December 3:31pm SWELLING, LT LEG December 30, 2024 2:49p m MNT January 02, 2025 4:01p m Venous insufficiency (chronic) (peripher al) January 10, 2025 8:36am Venous insufficiency (chronic) (peripher al) January 10, 2025 12:10pm E-ORDER January 12, 2025 1:38 pm s/p IVC venogram DOS: 01/10/25January 7:58am LLE; LT LEG PAIN/HEAVINESS February 01 9:01am LLE; LT LEG PAIN/HEAVINESS February 01 10:26am 1 M FU February 06, 2025 12:56 pm Discuss Ablation March 23, 2025 8: 29am INT LAB ORDER March 29, 2025 11 :52am Reason for Visit Admit Date Encounter for routine gynecological exam ination December 12, 2024 9:20am Symptomatic varicose veins December 19 3:31pm Venous insufficiency January 13, 2025 7:5 8am Venous insufficiency February 06, 2025 12:5 6pm Venous insufficiency March 23, 2025 8 :29am Chief Complaint Admit Date Venous insufficiency (chronic) (peripher al) January 10, 2025 8:36am Venous insufficiency (chronic) (peripher al) January 10, 2025 12:10pm E-ORDER January 12, 2025 1:38 pm s/p IVC venogram DOS: 01/10/25January 7:58am LLE; LT LEG PAIN/HEAVINESS February 01 9:01am LLE; LT LEG PAIN/HEAVINESS February 01 10:26am 1 M FU February 06, 2025 12:56 pm Discuss Ablation March 23, 2025 8: 29am INT LAB ORDER March 29, 2025 11 :52am Varicose veins of unspecified lower extr emity with May 04, 2025 11:34am Varicose veins of unspecified lower extr emity with May 04, 2025 1:25pm Reason for Visit Admit Date Venous insufficiency January 13, 2025 7:5 8am Venous insufficiency February 06, 2025 12:5 6pm Venous insufficiency March 23, 2025 8 :29am Venous insufficiency May 04, 2025 1 1:34am Chief Complaint Admit Date LLE; LT LEG PAIN/HEAVINESS February 01 9:01am LLE; LT LEG PAIN/HEAVINESS February 01 10:26am 1 M FU February 06, 2025 12:56 pm Discuss Ablation March 23, 2025 8: 29am INT LAB ORDER March 29, 2025 11 :52am Varicose veins of unspecified lower extr emity with May 04, 2025 11:34am Varicose veins of unspecified lower extr emity with May 04, 2025 1:25pm Varicose veins of unspecified lower extr emity with May 08, 2025 7:53am Post Sclerotherapy 2-4 WK FU May 11:22am Reason for Visit Admit Date Venous insufficiency February 06, 2025 12:5 6pm Venous insufficiency March 23, 2025 8 :29am Venous insufficiency May 04, 2025 1 1:34am Venous insufficiency May 18, 2025 11:22am Advance Directives Advance Directive Response Recorded Date/ Time Living Will No July 22 11:16am Power of Ear Specialist No July 22, 2021 11:16am Advance Directive Response Recorded Date/ Time Living Will No September 25, 024 9:31am Power of Ear Specialist No September 25, 2023 9:31am Advance Directive Response Recorded Date/ Time Living Will No October 13, 2024 7:03pm Power of Ear Specialist No October 13 7:03pm Advance Directive Response Recorded Date/ Time Living Will No October 13, 2024 7:03pm Do you have a Healthcare Power of Ear Specialist? No October 13, 2024 7:03pm Advance Directive Response Recorded Date/ Time Living Will No October 13, 2024 7:03pm Do you have a Healthcare Power of Ear Specialist? No October 13, 2024 7:03pm Advance Directives on File No January 09, 2025 8:48am Living Will No January 10, 2025 9:01am Do you have a Healthcare Power of Ear Specialist? No January 10, 2025 9:01am Advance Directives No January 10 9:01am Advance Directive Response Recorded Date/ Time Advance Directives on File No January 09, 2025 8:48am Living Will No January 10, 2025 9:01am Do you have a Healthcare Power of Ear Specialist? No January 10, 2025 9:01am Advance Directives No January 10 9:01am Advance Directive Response Recorded Date/ Time Advance Directives on File No January 09, 2025 8:48am Living Will No January 10, 2025 9:01am Do you have a Healthcare Power of Ear Specialist? No January 10, 2025 9:01am Advance Directives on File No Mayob er 2024 12:58pm Living Will No May 04 11:51am Do you have a Healthcare Power of Ear Specialist? No May 04, 2025 11:51am Advance Directives No May 04, 2025 11:51am Advance Directive Response Recorded Date/ Time Advance Directives on File No Octob er 2024 12:58pm Living Will No May 04 11:51am Do you have a Healthcare Power of Ear Specialist? No May 04, 2025 11:51am Advance Directives No May 04, 2025 11:51am Summary Purpose Family History No Family History Records FoundNo Family History Records Found Additional Source Comments Source Comments (unrecognize d section and content) In the event this informatio n is protected by the Federal Confidentiality of Alcohol and Drug Abuse Patient Records regulations: The Federal rules restrict any use of the information to criminally investigate or prosecute any alcohol or drug abuse patient.[facility] the event this information is protected by the Federal Confidentiality of Alcohol and Drug Abuse Patient Records regulations: The Federal rules restrict any use of the information to criminally investigate or prosecute any alcohol or drug abuse patient.[facility] SystemIn the event this information is protected by the Federal Confidentiality of Alcohol and Drug Abuse Patient Records regulations: The Federal rules restrict any use of the information to criminally investigate or prosecute any alcohol or drug abuse patient.[facility] SystemIn the event this information is protected by the Federal Confidentiality of Alcohol and Drug Abuse Patient Records regulations: The Federal rules restrict any use of the information to criminally investigate or prosecute any alcohol or drug abuse patient.[facility] SystemIn the event this information is protected by the Federal Confidentiality of Alcohol and Drug Abuse Patient Records regulations: The Federal rules restrict any use of the information to criminally investigate or prosecute any alcohol or drug abuse patient.[facility] SystemIn the event this information is protected by the Federal Confidentiality of Alcohol and Drug Abuse Patient Records regulations: The Federal rules restrict any use of the information to criminally investigate or prosecute any alcohol or drug abuse patient.[facility] SystemIn the event this information is protected by the Federal Confidentiality of Alcohol and Drug Abuse Patient Records regulations: The Federal rules restrict any use of the information to criminally investigate or prosecute any alcohol or drug abuse patient.[facility] SystemIn the event this information is protected by the Federal Confidentiality of Alcohol and Drug Abuse Patient Records regulations: The Federal rules restrict any use of the information to criminally investigate or prosecute any alcohol or drug abuse patient.[facility] SystemIn the event this information is protected by the Federal Confidentiality of Alcohol and Drug Abuse Patient Records regulations: The Federal rules restrict any use of the information to criminally investigate or prosecute any alcohol or drug abuse patient.[facility] SystemIn the event this information is protected by the Federal Confidentiality of Alcohol and Drug Abuse Patient Records regulations: The Federal rules restrict any use of the information to criminally investigate or prosecute any alcohol or drug abuse patient.[facility] SystemIn the event this information is protected by the Federal Confidentiality of Alcohol and Drug Abuse Patient Records regulations: The Federal rules restrict any use of the information to criminally investigate or prosecute any alcohol or drug abuse patient.[facility] SystemIn the event this information is protected by the Federal Confidentiality of Alcohol and Drug Abuse Patient Records regulations: The Federal rules restrict any use of the information to criminally investigate or prosecute any alcohol or drug abuse patient.[facility] SystemIn the event this information is protected by the Federal Confidentiality of Alcohol and Drug Abuse Patient Records regulations: The Federal rules restrict any use of the information to criminally investigate or prosecute any alcohol or drug abuse patient.[facility] SystemIn the event this information is protected by the Federal Confidentiality of Alcohol and Drug Abuse Patient Records regulations: The Federal rules restrict any use of the information to criminally investigate or prosecute any alcohol or drug abuse patient.[facility] SystemIn the event this information is protected by the Federal Confidentiality of Alcohol and Drug Abuse Patient Records regulations: The Federal rules restrict any use of the information to criminally investigate or prosecute any alcohol or drug abuse patient.[facility] SystemIn the event this information is protected by the Federal Confidentiality of Alcohol and Drug Abuse Patient Records regulations: The Federal rules restrict any use of the information to criminally investigate or prosecute any alcohol or drug abuse patient.[facility] SystemIn the event this information is protected by the Federal Confidentiality of Alcohol and Drug Abuse Patient Records regulations: The Federal rules restrict any use of the information to criminally investigate or prosecute any alcohol or drug abuse patient.[facility] SystemIn the event this information is protected by the Federal Confidentiality of Alcohol and Drug Abuse Patient Records regulations: The Federal rules restrict any use of the information to criminally investigate or prosecute any alcohol or drug abuse patient.[facility] SystemIn the event this information is protected by the Federal Confidentiality of Alcohol and Drug Abuse Patient Records regulations: The Federal rules restrict any use of the information to criminally investigate or prosecute any alcohol or drug abuse patient.[facility] SystemIn the event this information is protected by the Federal Confidentiality of Alcohol and Drug Abuse Patient Records regulations: The Federal rules restrict any use of the information to criminally investigate or prosecute any alcohol or drug abuse patient.[facility] SystemIn the event this information is protected by the Federal Confidentiality of Alcohol and Drug Abuse Patient Records regulations: The Federal rules restrict any use of the information to criminally investigate or prosecute any alcohol or drug abuse patient.[facility] SystemIn the event this information is protected by the Federal Confidentiality of Alcohol and Drug Abuse Patient Records regulations: The Federal rules restrict any use of the information to criminally investigate or prosecute any alcohol or drug abuse patient.[facility] SystemIn the event this information is protected by the Federal Confidentiality of Alcohol and Drug Abuse Patient Records regulations: The Federal rules restrict any use of the information to criminally investigate or prosecute any alcohol or drug abuse patient.[facility] SystemIn the event this information is protected by the Federal Confidentiality of Alcohol and Drug Abuse Patient Records regulations: The Federal rules restrict any use of the information to criminally investigate or prosecute any alcohol or drug abuse patient.[facility] SystemIn the event this information is protected by the Federal Confidentiality of Alcohol and Drug Abuse Patient Records regulations: The Federal rules restrict any use of the information to criminally investigate or prosecute any alcohol or drug abuse patient.[facility] SystemIn the event this information is protected by the Federal Confidentiality of Alcohol and Drug Abuse Patient Records regulations: The Federal rules restrict any use of the information to criminally investigate or prosecute any alcohol or drug abuse patient.[facility] SystemIn the event this information is protected by the Federal Confidentiality of Alcohol and Drug Abuse Patient Records regulations: The Federal rules restrict any use of the information to criminally investigate or prosecute any alcohol or drug abuse patient.[facility] SystemIn the event this information is protected by the Federal Confidentiality of Alcohol and Drug Abuse Patient Records regulations: The Federal rules restrict any use of the information to criminally investigate or prosecute any alcohol or drug abuse patient.[facility] SystemIn the event this information is protected by the Federal Confidentiality of Alcohol and Drug Abuse Patient Records regulations: The Federal rules restrict any use of the information to criminally investigate or prosecute any alcohol or drug abuse patient.[facility] SystemIn the event this information is protected by the Federal Confidentiality of Alcohol and Drug Abuse Patient Records regulations: The Federal rules restrict any use of the information to criminally investigate or prosecute any alcohol or drug abuse patient.[facility] SystemIn the event this information is protected by the Federal Confidentiality of Alcohol and Drug Abuse Patient Records regulations: The Federal rules restrict any use of the information to criminally investigate or prosecute any alcohol or drug abuse patient.[facility] SystemIn the event this information is protected by the Federal Confidentiality of Alcohol and Drug Abuse Patient Records regulations: The Federal rules restrict any use of the information to criminally investigate or prosecute any alcohol or drug abuse patient.[facility] SystemIn the event this information is protected by the Federal Confidentiality of Alcohol and Drug Abuse Patient Records regulations: The Federal rules restrict any use of the information to criminally investigate or prosecute any alcohol or drug abuse patient.[facility] SystemIn the event this information is protected by the Federal Confidentiality of Alcohol and Drug Abuse Patient Records regulations: The Federal rules restrict any use of the information to criminally investigate or prosecute any alcohol or drug abuse patient.[facility] SystemIn the event this information is protected by the Federal Confidentiality of Alcohol and Drug Abuse Patient Records regulations: The Federal rules restrict any use of the information to criminally investigate or prosecute any alcohol or drug abuse patient.[facility] SystemIn the event this information is protected by the Federal Confidentiality of Alcohol and Drug Abuse Patient Records regulations: The Federal rules restrict any use of the information to criminally investigate or prosecute any alcohol or drug abuse patient.[facility] SystemIn the event this information is protected by the Federal Confidentiality of Alcohol and Drug Abuse Patient Records regulations: The Federal rules restrict any use of the information to criminally investigate or prosecute any alcohol or drug abuse patient.[facility] SystemIn the event this information is protected by the Federal Confidentiality of Alcohol and Drug Abuse Patient Records regulations: The Federal rules restrict any use of the information to criminally investigate or prosecute any alcohol or drug abuse patient.[facility] SystemIn the event this information is protected by the Federal Confidentiality of Alcohol and Drug Abuse Patient Records regulations: The Federal rules restrict any use of the information to criminally investigate or prosecute any alcohol or drug abuse patient.[facility] SystemIn the event this information is protected by the Federal Confidentiality of Alcohol and Drug Abuse Patient Records regulations: The Federal rules restrict any use of the information to criminally investigate or prosecute any alcohol or drug abuse patient.[facility] SystemIn the event this information is protected by the Federal Confidentiality of Alcohol and Drug Abuse Patient Records regulations: The Federal rules restrict any use of the information to criminally investigate or prosecute any alcohol or drug abuse patient.[facility] SystemIn the event this information is protected by the Federal Confidentiality of Alcohol and Drug Abuse Patient Records regulations: The Federal rules restrict any use of the information to criminally investigate or prosecute any alcohol or drug abuse patient.[facility] SystemIn the event this information is protected by the Federal Confidentiality of Alcohol and Drug Abuse Patient Records regulations: The Federal rules restrict any use of the information to criminally investigate or prosecute any alcohol or drug abuse patient.[facility] SystemIn the event this information is protected by the Federal Confidentiality of Alcohol and Drug Abuse Patient Records regulations: The Federal rules restrict any use of the information to criminally investigate or prosecute any alcohol or drug abuse patient.[facility] SystemIn the event this information is protected by the Federal Confidentiality of Alcohol and Drug Abuse Patient Records regulations: The Federal rules restrict any use of the information to criminally investigate or prosecute any alcohol or drug abuse patient.[facility] SystemIn the event this information is protected by the Federal Confidentiality of Alcohol and Drug Abuse Patient Records regulations: The Federal rules restrict any use of the information to criminally investigate or prosecute any alcohol or drug abuse patient.[facility] SystemIn the event this information is protected by the Federal Confidentiality of Alcohol and Drug Abuse Patient Records regulations: The Federal rules restrict any use of the information to criminally investigate or prosecute any alcohol or drug abuse patient.[facility] SystemIn the event this information is protected by the Federal Confidentiality of Alcohol and Drug Abuse Patient Records regulations: The Federal rules restrict any use of the information to criminally investigate or prosecute any alcohol or drug abuse patient.[facility] SystemIn the event this information is protected by the Federal Confidentiality of Alcohol and Drug Abuse Patient Records regulations: The Federal rules restrict any use of the information to criminally investigate or prosecute any alcohol or drug abuse patient.[facility] SystemIn the event this information is protected by the Federal Confidentiality of Alcohol and Drug Abuse Patient Records regulations: The Federal rules restrict any use of the information to criminally investigate or prosecute any alcohol or drug abuse patient.[facility] SystemIn the event this information is protected by the Federal Confidentiality of Alcohol and Drug Abuse Patient Records regulations: The Federal rules restrict any use of the information to criminally investigate or prosecute any alcohol or drug abuse patient.[facility] SystemIn the event this information is protected by the Federal Confidentiality of Alcohol and Drug Abuse Patient Records regulations: The Federal rules restrict any use of the information to criminally investigate or prosecute any alcohol or drug abuse patient.[facility] SystemIn the event this information is protected by the Federal Confidentiality of Alcohol and Drug Abuse Patient Records regulations: The Federal rules restrict any use of the information to criminally investigate or prosecute any alcohol or drug abuse patient.[facility] SystemIn the event this information is protected by the Federal Confidentiality of Alcohol and Drug Abuse Patient Records regulations: The Federal rules restrict any use of the information to criminally investigate or prosecute any alcohol or drug abuse patient.[facility] SystemIn the event this information is protected by the Federal Confidentiality of Alcohol and Drug Abuse Patient Records regulations: The Federal rules restrict any use of the information to criminally investigate or prosecute any alcohol or drug abuse patient.[facility] SystemIn the event this information is protected by the Federal Confidentiality of Alcohol and Drug Abuse Patient Records regulations: The Federal rules restrict any use of the information to criminally investigate or prosecute any alcohol or drug abuse patient.[facility] SystemIn the event this information is protected by the Federal Confidentiality of Alcohol and Drug Abuse Patient Records regulations: The Federal rules restrict any use of the information to criminally investigate or prosecute any alcohol or drug abuse patient.[facility] SystemIn the event this information is protected by the Federal Confidentiality of Alcohol and Drug Abuse Patient Records regulations: The Federal rules restrict any use of the information to criminally investigate or prosecute any alcohol or drug abuse patient.[facility] SystemIn the event this information is protected by the Federal Confidentiality of Alcohol and Drug Abuse Patient Records regulations: The Federal rules restrict any use of the information to criminally investigate or prosecute any alcohol or drug abuse patient.[facility] SystemIn the event this information is protected by the Federal Confidentiality of Alcohol and Drug Abuse Patient Records regulations: The Federal rules restrict any use of the information to criminally investigate or prosecute any alcohol or drug abuse patient.[facility] SystemIn the event this information is protected by the Federal Confidentiality of Alcohol and Drug Abuse Patient Records regulations: The Federal rules restrict any use of the information to criminally investigate or prosecute any alcohol or drug abuse patient.[facility] SystemIn the event this information is protected by the Federal Confidentiality of Alcohol and Drug Abuse Patient Records regulations: The Federal rules restrict any use of the information to criminally investigate or prosecute any alcohol or drug abuse patient.[facility] SystemIn the event this information is protected by the Federal Confidentiality of Alcohol and Drug Abuse Patient Records regulations: The Federal rules restrict any use of the information to criminally investigate or prosecute any alcohol or drug abuse patient.[facility] SystemIn the event this information is protected by the Federal Confidentiality of Alcohol and Drug Abuse Patient Records regulations: The Federal rules restrict any use of the information to criminally investigate or prosecute any alcohol or drug abuse patient.[facility] SystemIn the event this information is protected by the Federal Confidentiality of Alcohol and Drug Abuse Patient Records regulations: The Federal rules restrict any use of the information to criminally investigate or prosecute any alcohol or drug abuse patient.[facility] SystemIn the event this information is protected by the Federal Confidentiality of Alcohol and Drug Abuse Patient Records regulations: The Federal rules restrict any use of the information to criminally investigate or prosecute any alcohol or drug abuse patient.[facility] SystemIn the event this information is protected by the Federal Confidentiality of Alcohol and Drug Abuse Patient Records regulations: The Federal rules restrict any use of the information to criminally investigate or prosecute any alcohol or drug abuse patient.[facility] SystemIn the event this information is protected by the Federal Confidentiality of Alcohol and Drug Abuse Patient Records regulations: The Federal rules restrict any use of the information to criminally investigate or prosecute any alcohol or drug abuse patient.[facility] SystemIn the event this information is protected by the Federal Confidentiality of Alcohol and Drug Abuse Patient Records regulations: The Federal rules restrict any use of the information to criminally investigate or prosecute any alcohol or drug abuse patient.[facility] SystemIn the event this information is protected by the Federal Confidentiality of Alcohol and Drug Abuse Patient Records regulations: The Federal rules restrict any use of the information to criminally investigate or prosecute any alcohol or drug abuse patient.[facility] SystemIn the event this information is protected by the Federal Confidentiality of Alcohol and Drug Abuse Patient Records regulations: The Federal rules restrict any use of the information to criminally investigate or prosecute any alcohol or drug abuse patient.[facility] SystemIn the event this information is protected by the Federal Confidentiality of Alcohol and Drug Abuse Patient Records regulations: The Federal rules restrict any use of the information to criminally investigate or prosecute any alcohol or drug abuse patient.[facility] SystemIn the event this information is protected by the Federal Confidentiality of Alcohol and Drug Abuse Patient Records regulations: The Federal rules restrict any use of the information to criminally investigate or prosecute any alcohol or drug abuse patient.[facility] Reason for Visit (unrecogniz ed section and content) Reason Comments Medication Question Reason Comments Refill Request Reason Comments Medication Problem Reason Comments Follow Up 4 months Reason Comments Well Woman Specialty Diagnoses / Procedures Referred By Contpaolo t Referred To Contact Gynecology / EDUCATION ASSOCIATE Diagnoses annual Procedures WELLNESS EXAMS EST 40-64 YRS EST I ANNUAL PATIENT Self, Delphine Yan, LINK WIRE FABRIC MACHINE TENDER.BUNCH TRIMMER MOLD [address] [place] [place] [address] Referral ID Status Reason Start Date Expiration Date Visits Re quested Visits Authorized [id number] Closed 02/04/2022 08/02/2022 1 1 Reason Comments [...] Comments Follow Up Reason Comments ER F/U [facility] 02/05/24 Fall Reason Onset Date Comments Refill Request 03/17/2024 Reason Onset Date Comments Refill Request 04/01/2024 Reason Onset Date Comments Refill Request 07/01/2024 Reason Comments F/U 3 Month Reason Comments fax Vas referral to [place] Reason Comments Orders Reason Onset Date Comments Refill Request 10/07/2024 Reason Comments Shortness of Breath Reason Comments ER F/U Reason Comments Patient Question Reason Comments F/U 3 Month Reason Comments Insurance Authorization Reason Comments Results CT Chest Reason Comments Follow Up Reason Comments Patient Update Reason Comments Follow Up Reason Onset Date Comments Refill Request 02/06/2025 Reason Comments Patient Question Regarding conversati on with specialist Dr. Barone's office at [facility] Care Teams (unrecognized sec tion and content) Sales And Marketing Coordinator Relationship Specialty Start Date End Date Hilton Doty DO [address] [place] [address] PCP - General Family Practice 09/15/14 Sales And Marketing Coordinator Relationship Specialty Start Date End Date Hilton Doty, DO [address] [place] [address] PCP - General Family Practice 09/15/14 Sales And Marketing Coordinator Relationship Specialty Start Date End Date Hilton Doty, DO [address] [place] [address] PCP - General Family Practice 09/15/14 Sales And Marketing Coordinator Relationship Specialty Start Date End Date Hilton Doty, DO [address] [place] [address] PCP - General Family Practice 09/15/14 Sales And Marketing Coordinator Relationship Specialty Start Date End Date Hilton Doty, DO [address] [place] [address] PCP - General Family Practice 09/15/14 Sales And Marketing Coordinator Relationship Specialty Start Date End Date Hilton Doty, DO [address] [place] [address] PCP - General Family Practice 09/15/14 Sales And Marketing Coordinator Relationship Specialty Start Date End Date Hilton Doty, DO [address] [place] [address] PCP - General Family Medicine 09/15/14 Sales And Marketing Coordinator Relationship Specialty Start Date End Date Hilton Doty, DO [address] [place] [address] PCP - General Family Medicine 09/15/14 Sales And Marketing Coordinator Relationship Specialty Start Date End Date Hilton Doty, DO [address] [place] [address] PCP - General Family Medicine 09/15/14 Sales And Marketing Coordinator Relationship Specialty Start Date End Date Hilton Doty, DO [address] [place] [address] PCP - General Family Medicine 09/15/14 Sales And Marketing Coordinator Relationship Specialty Start Date End Date Hilton Doty, DO [address] [place] [address] PCP - General Family Medicine 09/15/14 Sales And Marketing Coordinator Relationship Specialty Start Date End Date Hilton Doty, DO [address] [place] [address] PCP - General Family Medicine 09/15/14 Sales And Marketing Coordinator Relationship Specialty Start Date End Date Hilton Doty, DO [address] [place] [address] PCP - General Family Medicine 09/15/14 Sales And Marketing Coordinator Relationship Specialty Start Date End Date Hilton Doty, DO [address] [place] [address] PCP - General Family Medicine 09/15/14 Sales And Marketing Coordinator Relationship Specialty Start Date End Date Hilton Doty, DO [address] [place] [address] PCP - General Family Medicine 09/15/14 Sales And Marketing Coordinator Relationship Specialty Start Date End Date Hilton Doty, DO [address] [place] [address] PCP - General Family Medicine 09/15/14 Sales And Marketing Coordinator Relationship Specialty Start Date End Date Hilton Doty, DO [address] [place] [address] PCP - General Family Medicine 09/15/14 Sales And Marketing Coordinator Relationship Specialty Start Date End Date Hiltno Doty DO [address] [place] [address] PCP - General Family Medicine 09/15/14 Sales And Marketing Coordinator Relationship Specialty Start Date End Date Hilton Doty DO [address] [place] [address] PCP - General Family Medicine 09/15/14 Sales And Marketing Coordinator Relationship Specialty Start Date End Date Hilton Doty DO [address] [place] [address] PCP - General Family Medicine 09/15/14 Sales And Marketing Coordinator Relationship Specialty Start Date End Date Hilotn oDty DO [address] [place] [address] PCP - General Family Medicine 09/15/14 Team Status: Active Member Role Status Dates Dr. Hilton Doty , Primary Care Provider Active Team Status: Inactive Member Role Status Dates Dr. Hilton Doty DO Primary Care Provider, Referr ing Provider Active Nilda Loya HAND RUG CLEANER, HAND RUG CLEANER-C Attending Provider Active Team Status: Active Member [...] Pr ovider, Attending Provider, Referring Provider Active Sales And Marketing Coordinator Relationship Specialty Start Date End Date Hilton Doty DO [address] [place] [address] PCP - General Family Medicine 09/15/14 Sales And Marketing Coordinator Relationship Specialty Start Date End Date Hilton Dtoy DO [address] [place] [address] PCP - General Family Medicine 09/15/14 Team Status: Inactive Member Role Status Dates Dr. Hilton Doty DO Primary Care Provider Active Nilda Loya HAND RUG CLEANER, HAND RUG CLEANER-C Attending Provider, Referring Provider Active Team Status: Inactive Member Role Status Dates Dr. Hilton Doty DO Primary Care Provider Active ERIC FOWLER Attending Provider, Referring Pro vider Active Sales And Marketing Coordinator Relationship Specialty Start Date End Date Hilton Doty DO [address] [place] [address] PCP - General Family Medicine 09/15/14 Team Status: Inactive Member Role Status Dates Dr. Hilton Doty DO Primary Care Provider, Referr ing Provider Active Dr. Priscilla Mart DO Attending Provider Activ e Team Status: Inactive Member Role Status Dates Dr. Hilton Doty DO Primary Care Provider Active Dr. Priscilla Mart DO Attending Provider, Refe rring Provider Active Sales And Marketing Coordinator Relationship Specialty Start Date End Date Hilton Doty DO [address] [facility] [place] [address] PCP - General Family Medicine 09/15/14 Sales And Marketing Coordinator Relationship Specialty Start Date End Date Hilton Doty DO [address] [facility] [place] [address] PCP - General Family Medicine 09/15/14 Sales And Marketing Coordinator Relationship Specialty Start Date End Date Hilton Doty DO [address] [facility] [place] [address] PCP - General Family Medicine 09/15/14 Team Status: Inactive Member Role Status Dates Dr. Hilton Doty DO Primary Care Provider, Referr ing Provider Active PINA BrowningC Attending Provider Active Team Status: Active Member Role Status Dates Dr. Hilton Doty DO Primary Care Provider Active Dr. Priscilla Mart DO Attending Provider, Referring Provider, Other Provider Active Team Status: Inactive Member Role Status Dates Dr. Hilton Doty DO Primary Care Provider, Referr ing Provider Active Randy CEE, PA Attending Provider Active Sales And Marketing Coordinator Relationship Specialty Start Date End Date Hilton Doty DO [address] [facility] [place] [address] PCP - General Family Medicine 09/15/14 Sales And Marketing Coordinator Relationship Specialty Start Date End Date Hilton Doty DO [address] [facility] [place] [address] PCP - General Family Medicine 09/15/14 Sales And Marketing Coordinator Relationship Specialty Start Date End Date Hilton Doty DO [address] [facility] [place] [address] PCP - General Family Medicine 09/15/14 Sales And Marketing Coordinator Relationship Specialty Start Date End Date Hilton Doty DO [address] [facility] [place] [address] PCP - General Family Medicine 09/15/14 Sales And Marketing Coordinator Relationship Specialty Start Date End Date Hilton Doty DO [address] [facility] [place] [address] PCP - General Family Medicine 09/15/14 Sales And Marketing Coordinator Relationship Specialty Start Date End Date Hilton Doty DO [address] [facility] [place] [address] PCP - General Family Medicine 09/15/14 Sales And Marketing Coordinator Relationship Specialty Start Date End Date Hilton Doty DO [address] [facility] [place] [address] PCP - General Family Medicine 09/15/14 Lisa Doll, KJ.BUNCH TRIMMER MOLD [address] [facility] [place] [address] [facility] 07/10/24 Anna Sheikh, KJ.BUNCH TRIMMER MOLD [address] [facility] [place] [address] [facility] 07/10/24 Sales And Marketing Coordinator Relationship Specialty Start Date End Date Hilton Doty DO [address] [place] [address] PCP - General Family Medicine 09/15/14 Lisa Doll, LINK WIRE FABRIC MACHINE TENDER.BUNCH TRIMMER MOLD [address] [place] [address] [facility] 07/10/24 JillianAnna, LINK WIRE FABRIC MACHINE TENDER.BUNCH TRIMMER MOLD [address] [place] [address] [facility] Sales And Marketing Coordinator Relationship Specialty Start Date End Date Hilton Doty DO [address] [place] [address] PCP - General Family Medicine 09/15/14 Lisa Doll, LINK WIRE FABRIC MACHINE TENDER.BUNCH TRIMMER MOLD [address] [place] [address] [facility] 07/[facility]24 JillianAnna, LINK WIRE FABRIC MACHINE TENDER.BUNCH TRIMMER MOLD [address] [place] [address] [facility] 07/10/24 Sales And Marketing Coordinator Relationship Specialty Start Date End Date Hilton Doty DO [address] [place] [address] PCP - General Family Medicine 09/15/14 Lisa Doll, LINK WIRE FABRIC MACHINE TENDER.BUNCH TRIMMER MOLD [address] [place] [address] [facility] 07/10/24 Anna Sheikh, LINK WIRE FABRIC MACHINE TENDER.BUNCH TRIMMER MOLD [address] [place] [address] [facility] 07/10/24 Sales And Marketing Coordinator Relationship Specialty Start Date End Date Hilton Doty DO [address] [place] [address] PCP - General Family Medicine 09/15/14 Lisa Doll, LINK WIRE FABRIC MACHINE TENDER.BUNCH TRIMMER MOLD [address] [place] [address] [facility] 07/10/24 Anna Sheikh, LINK WIRE FABRIC MACHINE TENDER.BUNCH TRIMMER MOLD [address] [facility] [place] [address] [facility] 07/10/24 Sales And Marketing Coordinator Relationship Specialty Start Date End Date Hilton Doty DO [address] [place] [address] PCP - General Family Medicine 09/15/14 Lisa Doll, LINK WIRE FABRIC MACHINE TENDER.BUNCH TRIMMER MOLD [address] [facility] [place] [address] [facility] 07/10/24 Anna Sheikh, LINK WIRE FABRIC MACHINE TENDER.BUNCH TRIMMER MOLD [address] [facility] [place] [address] [facility] 07/10/24 Sales And Marketing Coordinator Relationship Specialty Start Date End Date Hilton Doty DO [address] [facility] [place] [address] PCP - General Family Medicine 09/15/14 Lisa Doll, LINK WIRE FABRIC MACHINE TENDER.BUNCH TRIMMER MOLD [address] [place] [address] [facility] 07/10/24 [facility], LINK WIRE FABRIC MACHINE TENDER.BUNCH TRIMMER MOLD [address] [place] [address] [facility] 07/10/24 Sales And Marketing Coordinator Relationship Specialty Start Date End Date Hilton Doty DO [address] [place] [address] PCP - [facility] 09/15/14 Lisa Doll, LINK WIRE FABRIC MACHINE TENDER.BUNCH TRIMMER MOLD [address] [place] [address] [facility] 07/10/24 JillianAnna, LINK WIRE FABRIC MACHINE TENDER.BUNCH TRIMMER MOLD [address] [place] [address] [facility] 07/10/24 Sales And Marketing Coordinator Relationship Specialty Start Date End Date Hilton Doty DO [address] [place] [address] PCP - [facility] 09/15/14 [facility], LINK WIRE FABRIC MACHINE TENDER.BUNCH TRIMMER MOLD [address] [place] [address] [facility] 07/10/24 Team Status: Inactive Member Role Status [...] 2024 End: September 26, 2024 Nilda Loya HAND RUG CLEANER, HAND RUG CLEANER-C Attending Provider Active Start: September 26, 2024 End: September 26, 2024 Nilda Loya HAND RUG CLEANER, HAND RUG CLEANER-C Referring Provider Active Start: September 26, 2024 [...] 2024 End: October 26, 2024 BUSTER Carrasco Referring Provider Active Start: October 26, 2024 End: October 26, 2024 Team Status: Active Member Role Status Dates Dr. Hilton Doty DO Primary Care Provider Active Start: October 26, 2024 Dr. Stone Quiñonez MD Attending Provider Active S tart: October 26, 2024 Sales And Marketing Coordinator Relationship Specialty Start Date End Date Hilton Doty DO [address] [place] [address] PCP - General Family Medicine 09/15/14 Anna Sheikh APRN.BUNCH TRIMMER MOLD [address] [place] [address] [facility] 07/10/24 Sales And Marketing Coordinator Relationship Specialty Start Date End Date Hilton Doty DO [address] [place] [address] PCP - [facility] 09/15/14 [facility], KJ.BUNCH TRIMMER MOLD [address] [facility] [place] [address] [facility] 07/10/24 Team Status: Inactive Member Role Status [...] November 10, 2024 End: November 10, 2024 Sales And Marketing Coordinator Relationship Specialty Start Date End Date Hilton Doty DO [address] [facility] [place] [address] PCP - [facility] 09/15/14 JillianAnna, LINK WIRE FABRIC MACHINE TENDER.BUNCH TRIMMER MOLD [address] [facility] [place] [address] [facility] 07/10/24 Team Status: Inactive Member Role Status [...] December 30, 2024 End: December 30, 2024 AJYE Montero Attending Provider Active Star t: December [...] January 13, 2025 End: January 13, 2025 JYAE Montero Attending Provider Active Star t: January 13, 2025 End: January 13, 2025 Sales And Marketing Coordinator Relationship Specialty Start Date End Date Hilton Doty DO [address] [place] [address] PCP - General Family Medicine 09/15/14 Anna Sheikh, LINK WIRE FABRIC MACHINE TENDER.BUNCH TRIMMER MOLD [address] [place] [address] [facility] 07/10/24 Team Status: Inactive Member Role Status Dates Dr. Hilton Doty DO Primary Care Provider Active Start: January 12, 2025 End: January 12, 2025 Dr. Kay Khan MD Attending Provider Active Start: January 12, 2025 End: January 12, 2025 Dr. Kay Khan MD Referring Provider Active Start: January 12, 2025 End: January 12, 2025 Team Status: Active Member Role Status Dates Dr. Hilton Doty DO Primary Care Provider Active Start: January 14, 2025 Dr. Hilton Doty DO Attending Provider Active Start: January 14, 2025 Dr. Hilton Doty DO Referring Provider Active Start: January 14, 2025 Team Status: Inactive Member Role Status Dates Dr. Hilton Doty DO Primary Care Provider Active Start: January 14, 2025 End: January 14, 2025 Dr. Hilton Doty DO Attending Provider Active Start: January 14, 2025 End: January 14, 2025 Dr. Hilton Doty DO Referring Provider Active Start: January 14, 2025 End: January 14, 2025 Team Status: Active Member Role/Relationship Status Dates Dr. Hilton Doty DO Primary Care Provider Active Team Status: Inactive Member Role/Relationship Status Dates Dr. Hilton Doty DO Primary [...] October 13, 2024 Team Status: Inactive Member Role/Relationship Status Dates Dr. Hilton Doty DO Primary Care Provider Active Start: October 14, 2024 End: October 14, 2024 JAYE Montero Attending Provider Active Star t: October 14, 2024 End: October 14, 2024 JAYE Montero Referring Provider Active Star t: October 14, 2024 End: October 14, 2024 BUSTER Carrasco Other Provider Active Sta rt: October 14, 2024 End: October 14, 2024 Team Status: Active Member Role/Relationship Status Dates Dr. Hilton Doty DO Primary Care Provider Active Start: October 14, 2024 Dr. Derek Barone MD Attending Provider Active S tart: October 14, 2024 JAYE Montero Referring Provider Active Star t: October 14, 2024 Team Status: Inactive Member Role/Relationship Status Dates Dr. Hilton Doty DO Primary Care Provider Active Start: October 26, 2024 End: October 26, 2024 BUSTER Carrasco Attending Provider Active Start: October 26, 2024 End: October 26, 2024 BUSTER Carrasco Referring Provider Active Start: October 26, 2024 End: October 26, 2024 Team Status: Active Member Role/Relationship Status Dates Dr. Hilton Doty DO Primary Care Provider Active Start: October 26, 2024 Dr. Stone Quiñonez MD Attending Provider Active S tart: October 26, 2024 Team Status: Inactive Member Role/Relationship Status Dates Dr. Hilton Doty DO Primary Care Provider Active Start: November 02, 2024 End: November 02, 2024 Dr. Hilton Doty DO Referring Provider Active Start: November 02, 2024 End: November 02, 2024 JAYE Montero Attending Provider Active Star t: November 02, 2024 End: November 02, 2024 Team Status: Inactive Member Role/Relationship Status Dates Dr. Hilton Doty DO Primary Care Provider Active Start: November 10, 2024 End: November 10, 2024 Dr. Hilton Doty DO Attending Provider Active Start: November 10, 2024 End: November 10, 2024 Dr. Hilton Doty DO Referring Provider Active Start: November 10, 2024 End: November 10, 2024 Team Status: Inactive Member Role/Relationship Status Dates Dr. Hilton Doty DO Primary Care Provider Active Start: November 28, 2024 End: November 30, 2024 Dr. Hilton Doty DO Attending Provider Active Start: November 28, 2024 End: November 30, 2024 Team Status: Inactive Member Role/Relationship Status Dates Dr. Hilton Doty DO Primary Care Provider Active Start: December 12, 2024 End: December 12, 2024 Dr. Hilton Doty DO Referring Provider Active Start: December 12, 2024 End: December 12, 2024 Dr. Priscilla Mart DO Attending Provider Activ e Start: December 12, 2024 End: December 12, 2024 Team Status: Inactive Member Role/Relationship Status Dates Dr. Hilton Doty DO Primary Care Provider Active Start: December 12, 2024 End: December 12, 2024 Dr. Priscilla Mart DO Attending Provider Activ e Start: December 12, 2024 End: December 12, 2024 Dr. Priscilla Mart DO Referring Provider Activ e Start: December 12, 2024 End: December 12, 2024 Team Status: Inactive Member Role/Relationship Status Dates Dr. Hilton Doty DO Primary Care Provider Active Start: December 19, 2024 End: December 19, 2024 Dr. Hilton Doty DO Referring Provider Active Start: December 19, 2024 End: December 19, 2024 Dr. Derek Barone MD Attending Provider Active S tart: December 19, 2024 End: December 19, 2024 Team Status: Inactive Member Role/Relationship Status Dates Dr. Hilton Doty DO Primary Care Provider Active Start: December 30, 2024 End: December 30, 2024 JAYE Montero Attending Provider Active Star t: December 30, 2024 End: December 30, 2024 JAYE Montero Referring Provider Active Star t: December 30, 2024 End: December 30, 2024 Team Status: Active Member Role/Relationship Status Dates Dr. Hilton Doty DO Primary Care Provider Active Start: December 30, 2024 Dr. Derek Barone MD Attending Provider Active S tart: December 30, 2024 JAYE Montero Referring Provider Active Star t: December 30, 2024 Team Status: Inactive Member Role/Relationship Status Dates Dr. Hilton Doty DO Primary Care Provider Active Start: January 02, 2025 End: January 30, 2025 Dr. Hilton Doty DO Attending Provider Active Start: January 02, 2025 End: January 30, 2025 Team Status: Inactive Member Role/Relationship Status Dates Dr. Hilton Doty DO Primary [...] January 10, 2025 Team Status: Active Member Role/Relationship Status Dates Dr. Hilton Doty DO Primary Care Provider Active Start: January 10, 2025 JAYE Montero Other Provider Active Start: 2024 Dr. Derek Barone MD Attending Provider Active S tart: January 10, 2025 Dr. Derek Barone MD Referring Provider Active S tart: January 10, 2025 Dr. Derek Barone MD Other Provider Active Start : January 10, 2025 Team Status: Inactive Member Role/Relationship Status Dates Dr. Hilton Doty DO Primary Care Provider Active Start: January 12, 2025 End: January 12, 2025 Dr. Kay Khan MD Attending Provider Active Start: January 12, 2025 End: January 12, 2025 Dr. Kay Khan MD Referring Provider Active Start: January 12, 2025 End: January 12, 2025 Team Status: Inactive Member Role/Relationship Status Dates Dr. Hilton Doty DO Primary Care Provider Active Start: January 13, 2025 End: January 13, 2025 Dr. Hilton Doty DO Referring Provider Active Start: January 13, 2025 End: January 13, 2025 JAYE Montero Attending Provider Active Star t: January 13, 2025 End: January 13, 2025 Team Status: Inactive Member Role/Relationship Status Dates Dr. Hilton Doty DO Primary Care Provider Active Start: January 14, 2025 End: January 14, 2025 Dr. Hilton Doty DO Attending Provider Active Start: January 14, 2025 End: January 14, 2025 Dr. Hilton Doty DO Referring Provider Active Start: January 14, 2025 End: January 14, 2025 Team Status: Active Member Role/Relationship Status Dates Dr. Hilton Doty DO Primary Care Provider Active Start: February 01, 2025 Dr. Hilton Doty DO Attending Provider Active Start: February 01, 2025 Dr. Hilton Doty DO Referring Provider Active Start: February 01, 2025 Team Status: Active Member Role/Relationship Status Dates Dr. Hilton Doty DO Primary Care Provider Active Start: February 01, 2025 Dr. Hilton Doty DO Referring Provider Active Start: February 01, 2025 Dr. Hilton Doty DO Other Provider Active S tart: February 01, 2025 Dr. Lupillo Quintero MD Attending Provider Active S tart: February 01, 2025 Team Status: Inactive Member Role/Relationship Status Dates Dr. Hilton Doty DO Primary Care Provider Active Start: February 06, 2025 End: February 06, 2025 Dr. Hilton Doty DO Referring Provider Active Start: February 06, 2025 End: February 06, 2025 Dr. Derek Barone MD Attending Provider Active S tart: February 06, 2025 End: February 06, 2025 Sales And Marketing Coordinator Relationship Specialty Start Date End Date Hilton Doty DO [address] [place] [address] PCP - General Family Medicine 09/15/14 [facility] L[employer] WIRE FABRIC MACHINE TENDER.BUNCH TRIMMER MOLD [address] [place] [address] [facility] 07/10/24 Zee Adan, LINK WIRE FABRIC MACHINE TENDER.BUNCH TRIMMER MOLD [address] [place] [address] [facility] 01/16/25 Sales And Marketing Coordinator Relationship Specialty Start Date End Date Hilton Doty DO [address] [place] [address] PCP - General Family Medicine 09/15/14 [facility] LINK WIRE FABRIC MACHINE TENDER.BUNCH TRIMMER MOLD [address] [place] [address] [facility] 07/10/24 Zee Adan, LINK WIRE FABRIC MACHINE TENDER.BUNCH TRIMMER MOLD [address] [place] [address] [facility] 01/16/25 Team Status: Inactive Member Role/Relationship Status Dates Dr. Hilton Doty DO Primary Care Provider Active Start: February 01, 2025 End: February 01, 2025 Dr. Hilton Doty DO Attending Provider Active Start: February 01, 2025 End: February 01, 2025 Dr. Hilton Doty DO Referring Provider Active Start: February 01, 2025 End: February 01, 2025 Sales And Marketing Coordinator Relationship Specialty Start Date End Date Hilton Doty DO [address] [place] [address] PCP - General Family Medicine 09/15/14 Anna Sheikh, LINK WIRE FABRIC MACHINE TENDER.BUNCH TRIMMER MOLD [address] [place] [address] [facility] 07/10/24 Zee Adan, LINK WIRE FABRIC MACHINE TENDER.BUNCH TRIMMER MOLD [address] [place], [place] [address] [facility] 01/16/25 Team Status: Inactive Member Role/Relationship Status Dates Dr. Hilton Doty DO Primary Care Provider Active Start: November 28, 2024 End: November 30, 2024 Dr. Hilton Doty DO Attending Provider Active Start: November 28, 2024 End: November 30, 2024 Team Status: Inactive Member Role/Relationship Status Dates Dr. Hilton Doty DO Primary Care Provider Active Start: December 12, 2024 End: December 12, 2024 Dr. Hilton Doty DO Referring Provider Active Start: December 12, 2024 End: December 12, 2024 Dr. Priscilla Mart DO Attending Provider Activ e Start: December 12, 2024 End: December 12, 2024 Team Status: Inactive Member Role/Relationship Status Dates Dr. Hilton Doty DO Primary Care Provider Active Start: December 12, 2024 End: December 12, 2024 Dr. Priscilla Mart , DO Attending Provider Activ e Start: December 12, 2024 End: December 12, 2024 Dr. Priscilla Mart , DO Referring Provider Activ e Start: December 12, 2024 End: December 12, 2024 Team Status: Inactive Member Role/Relationship Status Dates Dr. Hilton Doty DO Primary Care Provider Active Start: December 19, 2024 End: December 19, 2024 Dr. Hilton Doty DO Referring Provider Active Start: December 19, 2024 End: December 19, 2024 Dr. Derek Barone MD Attending Provider Active S tart: December 19, 2024 End: December 19, 2024 Team Status: Inactive Member Role/Relationship Status Dates Dr. Hilton Doty DO Primary Care Provider Active Start: December 30, 2024 End: December 30, 2024 JAYE Montero Attending Provider Active Star t: December 30, 2024 End: December 30, 2024 JAYE Montero Referring Provider Active Star t: December 30, 2024 End: December 30, 2024 Team Status: Active Member Role/Relationship Status Dates Dr. Hilton Doty DO Primary Care Provider Active Start: December 30, 2024 Dr. Derek Barone MD Attending Provider Active S tart: December 30, 2024 JAYE Montero Referring Provider Active Star t: December 30, 2024 Team Status: Inactive Member Role/Relationship Status Dates Dr. Hilton Doty DO Primary Care Provider Active Start: January 02, 2025 End: January 30, 2025 Dr. Hilton Doty DO Attending Provider Active Start: January 02, 2025 End: January 30, 2025 Team Status: Inactive Member Role/Relationship Status Dates Dr. Hilotn Doty DO Primary Care Provider Active Start: January 10, 2025 End: January 10, 2025 JAYE Montero Other Provider Active Start: 2024 End: January 10, 2025 Dr. Derek Barone MD Attending Provider Active S tart: January 10, 2025 End: January 10, 2025 Dr. Derek Barone MD Referring Provider Active S tart: January 10, 2025 End: January 10, 2025 Team Status: Active Member Role/Relationship Status Dates Dr. Hilton Doty DO Primary Care Provider Active Start: January 10, 2025 JAYE Montero Other Provider Active Start: 2024 Dr. Derek Barone MD Attending Provider Active S tart: January 10, 2025 Dr. Derek Barone MD Referring Provider Active S tart: January 10, 2025 Dr. Derek Barone MD Other Provider Active Start : January 10, 2025 Team Status: Inactive Member Role/Relationship Status Dates Dr. Hilton Doty DO Primary Care Provider Active Start: January 12, 2025 End: January 12, 2025 Dr. Kay Khan MD Attending Provider Active Start: January 12, 2025 End: January 12, 2025 Dr. Kay Khan MD Referring Provider Active Start: January 12, 2025 End: January 12, 2025 Team Status: Inactive Member Role/Relationship Status Dates Dr. Hilton Doty DO Primary Care Provider Active Start: January 13, 2025 End: January 13, 2025 Dr. Hilton Doty DO Referring Provider Active Start: January 13, 2025 End: January 13, 2025 JAYE Montero Attending Provider Active Star t: January 13, 2025 End: January 13, 2025 Team Status: Inactive Member Role/Relationship Status Dates Dr. Hilton Doty DO Primary Care Provider Active Start: January 14, 2025 End: January 14, 2025 Dr. Hilton Doty DO Attending Provider Active Start: January 14, 2025 End: January 14, 2025 Dr. Hilton Doty DO Referring Provider Active Start: January 14, 2025 End: January 14, 2025 Team Status: Inactive Member Role/Relationship Status Dates Dr. Hilton Doty DO Primary Care Provider Active Start: February 01, 2025 End: February 01, 2025 Dr. Hilton Doty DO Attending Provider Active Start: February 01, 2025 End: February 01, 2025 Dr. Hilton Doty DO Referring Provider Active Start: February 01, 2025 End: February 01, 2025 Team Status: Active Member Role/Relationship Status Dates Dr. Hilton Doty DO Primary Care Provider Active Start: February 01, 2025 Dr. Hilton Doty DO Referring Provider Active Start: February 01, 2025 Dr. Hilton Doty DO Other Provider Active S tart: February 01, 2025 Dr. Lupillo Quintero MD Attending Provider Active S tart: February 01, 2025 Team Status: Inactive Member Role/Relationship Status Dates Dr. Hilton Doty DO Primary Care Provider Active Start: February 06, 2025 End: February 06, 2025 Dr. Hilton Doty DO Referring Provider Active Start: February 06, 2025 End: February 06, 2025 Dr. Derek Barone MD Attending Provider Active S tart: February 06, 2025 End: February 06, 2025 Team Status: Inactive Member Role/Relationship Status Dates Dr. Hilton Doty DO Primary Care Provider Active Start: March 13, 2025 End: March 13, 2025 Dr. Hilton Doty DO Attending Provider Active Start: March 13, 2025 End: March 13, 2025 Dr. Hilton Doty DO Referring Provider Active Start: March 13, 2025 End: March 13, 2025 Sales And Marketing Coordinator Relationship Specialty Start Date End Date Hilton Doty DO [address] [place] [address] PCP - General [facility] 09/15/14 [facility], LINK WIRE FABRIC MACHINE TENDER.BUNCH TRIMMER MOLD [address] [place] [address] [facility] 07/10/24 [employer], LINK WIRE FABRIC MACHINE TENDER.BUNCH TRIMMER MOLD [address] [place] [address] [facility] 01/16/25 Sales And Marketing Coordinator Relationship Specialty Start Date End Date Hilton Doty DO [address] [place] [address] PCP - [facility] 09/15/14 [facility], LINK WIRE FABRIC MACHINE TENDER.BUNCH TRIMMER MOLD [address] [facility] [place] [address] [facility] 07/10/24 [employer], LINK WIRE FABRIC MACHINE TENDER.BUNCH TRIMMER MOLD [address] [place] [address] [facility] 01/16/25 Team Status: Inactive Member Role/Relationship Status Dates Dr. Hilton Doty DO Primary Care Provider Active Start: March 23, 2025 End: March 23, 2025 Dr. Hilton Doty DO Referring Provider Active Start: March 23, 2025 End: March 23, 2025 JAYE Montero Attending Provider Active Star t: March 23, 2025 End: March 23, 2025 Sales And Marketing Coordinator Relationship Specialty Start Date End Date Hilton Doty DO [address] [place], [place] [id number] PCP - General Family Medicine 09/15/14 Anna Sheikh, LINK WIRE FABRIC MACHINE TENDER.BUNCH TRIMMER MOLD [address] [place], [place] [address] [facility] 07/10/24 Zee Adan, LINK WIRE FABRIC MACHINE TENDER.BUNCH TRIMMER MOLD [address] [place], [place] [id number] [facility] Team Status: Inactive Member Role/Relationship Status Dates Dr. Hilton Doty DO Primary Care Provider Active Start: December 12, 2024 End: December 12, 2024 Dr. Hilton Doty DO Referring Provider Active Start: December 12, 2024 End: December 12, 2024 Dr. Priscilla Mart DO Attending Provider Activ e Start: December 12, 2024 End: December 12, 2024 Team Status: Inactive Member Role/Relationship Status Dates Dr. Hilton Doty DO Primary Care Provider Active Start: December 12, 2024 End: December 12, 2024 Dr. Priscilla Mart , DO Attending Provider Activ e Start: December 12, 2024 End: December 12, 2024 Dr. Priscilla Mart , DO Referring Provider Activ e Start: December 12, 2024 End: December 12, 2024 Team Status: Inactive Member Role/Relationship Status Dates Dr. Hilton Doty DO Primary Care Provider Active Start: December 19, 2024 End: December 19, 2024 Dr. Hilton Doty DO Referring Provider Active Start: December 19, 2024 End: December 19, 2024 Dr. Derek Barone MD Attending Provider Active S tart: December 19, 2024 End: December 19, 2024 Team Status: Inactive Member Role/Relationship Status Dates Dr. Hilton Doty DO Primary Care Provider Active Start: December 30, 2024 End: December 30, 2024 JAYE Montero Attending Provider Active Star t: December 30, 2024 End: December 30, 2024 JAYE Montero Referring Provider Active Star t: December 30, 2024 End: December 30, 2024 Team Status: Active Member Role/Relationship Status Dates Dr. Hilton Doty DO Primary Care Provider Active Start: December 30, 2024 Dr. Derek Barone MD Attending Provider Active S tart: December 30, 2024 JAYE Montero Referring Provider Active Star t: December 30, 2024 Team Status: Inactive Member Role/Relationship Status Dates Dr. Hilton Doty DO Primary Care Provider Active Start: January 02, 2025 End: January 30, 2025 Dr. Hilton Doty DO Attending Provider Active Start: January 02, 2025 End: January 30, 2025 Team Status: Inactive Member Role/Relationship Status Dates Dr. Hilton Doty DO Primary [...] January 10, 2025 Team Status: Active Member Role/Relationship Status Dates Dr. Hilton Doty DO Primary Care Provider Active Start: January 10, 2025 JAYE Montero Other Provider Active Start: 2024 Dr. Derek Barone MD Attending Provider Active S tart: January 10, 2025 Dr. Derek Barone MD Referring Provider Active S tart: January 10, 2025 Dr. Derek Barone MD Other Provider Active Start : January 10, 2025 Team Status: Inactive Member Role/Relationship Status Dates Dr. Hilton Doty DO Primary Care Provider Active Start: January 12, 2025 End: January 12, 2025 Dr. Kay Khan MD Attending Provider Active Start: January 12, 2025 End: January 12, 2025 Dr. Kay Khan MD Referring Provider Active Start: January 12, 2025 End: January 12, 2025 Team Status: Inactive Member Role/Relationship Status Dates Dr. Hilton Doty DO Primary Care Provider Active Start: January 13, 2025 End: January 13, 2025 Dr. Hilton Doty DO Referring Provider Active Start: January 13, 2025 End: January 13, 2025 JAYE Montero Attending Provider Active Star t: January 13, 2025 End: January 13, 2025 Team Status: Inactive Member Role/Relationship Status Dates Dr. Hilton Doty DO Primary Care Provider Active Start: January 14, 2025 End: January 14, 2025 Dr. Hilton Doty DO Attending Provider Active Start: January 14, 2025 End: January 14, 2025 Dr. Hilton Doty DO Referring Provider Active Start: January 14, 2025 End: January 14, 2025 Team Status: Inactive Member Role/Relationship Status Dates Dr. Hilton Doty DO Primary Care Provider Active Start: February 01, 2025 End: February 01, 2025 Dr. Hilton Doty DO Attending Provider Active Start: February 01, 2025 End: February 01, 2025 Dr. Hilton Doty DO Referring Provider Active Start: February 01, 2025 End: February 01, 2025 Team Status: Active Member Role/Relationship Status Dates Dr. Hilton Doty DO Primary Care Provider Active Start: February 01, 2025 Dr. Hilton Doty DO Referring Provider Active Start: February 01, 2025 Dr. Hilton Doty DO Other Provider Active S tart: February 01, 2025 Dr. Lupillo Quintero MD Attending Provider Active S tart: February 01, 2025 Team Status: Inactive Member Role/Relationship Status Dates Dr. Hilton Doty DO Primary Care Provider Active Start: February 06, 2025 End: February 06, 2025 Dr. Hilton Doty DO Referring Provider Active Start: February 06, 2025 End: February 06, 2025 Dr. Derek Barone MD Attending Provider Active S tart: February 06, 2025 End: February 06, 2025 Team Status: Inactive Member Role/Relationship Status Dates Dr. Hilton Doty DO Primary Care Provider Active Start: March 13, 2025 End: March 13, 2025 Dr. Hilton Doty DO Attending Provider Active Start: March 13, 2025 End: March 13, 2025 Dr. Hilton Doty DO Referring Provider Active Start: March 13, 2025 End: March 13, 2025 Team Status: Inactive Member Role/Relationship Status Dates Dr. Hilton Doty DO Primary Care Provider Active Start: March 23, 2025 End: March 23, 2025 Dr. Hilton Doty DO Referring Provider Active Start: March 23, 2025 End: March 23, 2025 JAYE Montero Attending Provider Active Star t: March 23, 2025 End: March 23, 2025 Team Status: Inactive Member Role/Relationship Status Dates Dr. Hilton Doty DO Primary Care Provider Active Start: March 29, 2025 End: March 29, 2025 JAYE Montero Attending Provider Active Star t: March 29, 2025 End: March 29, 2025 JAYE Montero Referring Provider Active Star t: March 29, 2025 End: March 29, 2025 Team Status: Active Member Role/Relationship Status Dates Dr. Hilton Doty DO Primary care physician Active Team Status: Inactive Member Role/Relationship Status Dates Dr. Hilton Doty DO Primary care physician Active Start: January 10, 2025 End: January 10, 2025 JAYE Montero Nurse Practitioner Active Star t: January 10, 2025 End: January 10, 2025 Dr. Derek Barone MD Attending physician Active Start: January 10, 2025 End: January 10, 2025 Dr. Derek Barone MD Referring Provider Active S tart: January 10, 2025 End: January 10, 2025 Team Status: Active Member Role/Relationship Status Dates Dr. Hilton Doty DO Primary care physician Active Start: January 10, 2025 JAYE Montero Nurse Practitioner Active Star t: January 10, 2025 Dr. Derek Barone MD Attending physician Active Start: January 10, 2025 Dr. Derek Barone MD Referring Provider Active S tart: January 10, 2025 Dr. Derek Barone MD Nurse Practitioner Active S tart: January 10, 2025 Team Status: Inactive Member Role/Relationship Status Dates Dr. Hilton Doty DO Primary care physician Active Start: January 12, 2025 End: January 12, 2025 Dr. Kay Khan MD Attending physician Active Start: January 12, 2025 End: January 12, 2025 Dr. Kay Khan MD Referring Provider Active Start: January 12, 2025 End: January 12, 2025 Team Status: Inactive Member Role/Relationship Status Dates Dr. Hilton Doty DO Primary care physician Active Start: January 13, 2025 End: January 13, 2025 Dr. Hilton Doty DO Referring Provider Active Start: January 13, 2025 End: January 13, 2025 JAYE Montero Attending physician Active Sta rt: January 13, 2025 End: January 13, 2025 Team Status: Inactive Member Role/Relationship Status Dates Dr. Hilton Doty DO Primary care physician Active Start: January 14, 2025 End: January 14, 2025 Dr. Hilton Doty DO Attending physician Active Start: January 14, 2025 End: January 14, 2025 Dr. Hilton Doty DO Referring Provider Active Start: January 14, 2025 End: January 14, 2025 Team Status: Inactive Member Role/Relationship Status Dates Dr. Hilton Doty DO Primary care physician Active Start: February 01, 2025 End: February 01, 2025 Dr. Hilton Doty DO Attending physician Active Start: February 01, 2025 End: February 01, 2025 Dr. Hilton Doty DO Referring Provider Active Start: February 01, 2025 End: February 01, 2025 Team Status: Active Member Role/Relationship Status Dates Dr. Hilton Doty DO Primary care physician Active Start: February 01, 2025 Dr. Hilton Doty DO Referring Provider Active Start: February 01, 2025 Dr. Hilton Doty DO Nurse Practitioner Active Start: February 01, 2025 Dr. Lupillo Quintero MD Attending physician Active Start: February 01, 2025 Team Status: Inactive Member Role/Relationship Status Dates Dr. Hilton Doty DO Primary care physician Active Start: February 06, 2025 End: February 06, 2025 Dr. Hilton Doty DO Referring Provider Active Start: February 06, 2025 End: February 06, 2025 Dr. Derek Barone MD Attending physician Active Start: February 06, 2025 End: February 06, 2025 Team Status: Inactive Member Role/Relationship Status Dates Dr. Hilton Doty DO Primary care physician Active Start: March 13, 2025 End: March 13, 2025 Dr. Hilton Doty DO Attending physician Active Start: March 13, 2025 End: March 13, 2025 Dr. Hilton Doty DO Referring Provider Active Start: March 13, 2025 End: March 13, 2025 Team Status: Inactive Member Role/Relationship Status Dates Dr. Hilton Doty DO Primary care physician Active Start: March 23, 2025 End: March 23, 2025 Dr. Hilton Doty DO Referring Provider Active Start: March 23, 2025 End: March 23, 2025 JAYE Montero Attending physician Active Sta rt: March 23, 2025 End: March 23, 2025 Team Status: Inactive Member Role/Relationship Status Dates Dr. Hilton Doty DO Primary care physician Active Start: March 29, 2025 End: March 29, 2025 JAYE Montero Attending physician Active Sta rt: March 29, 2025 End: March 29, 2025 JAYE Montero Referring Provider Active Star t: March 29, 2025 End: March 29, 2025 Team Status: Inactive Member Role/Relationship Status Dates Dr. Hilton Doty DO Primary care physician Active Start: May 04, 2025 End: May 04, 2025 Dr. Derek Barone MD Attending physician Active Start: May 04, 2025 End: May 04, 2025 Dr. Derek Barone MD Referring Provider Active S tart: May 04, 2025 End: May 04, 2025 Team Status: Active Member Role/Relationship Status Dates Dr. Hilton Doty DO Primary care physician Active Start: May 04, 2025 Dr. Derek Barone MD Attending physician Active Start: May 04, 2025 Dr. Derek Barone MD Referring Provider Active S tart: May 04, 2025 Dr. Derek Barone MD Nurse Practitioner Active S tart: May 04, 2025 Team Status: Inactive Member Role/Relationship Status Dates Dr. Hilton Doty DO Primary care physician Active Start: February 01, 2025 End: February 01, 2025 Dr. Hilton Doty DO Attending physician Active Start: February 01, 2025 End: February 01, 2025 Dr. Hilton Doty DO Referring Provider Active Start: February 01, 2025 End: February 01, 2025 Team Status: Active Member Role/Relationship Status Dates Dr. Hilton Doty DO Primary care physician Active Start: February 01, 2025 Dr. Hilton Doty DO Referring Provider Active Start: February 01, 2025 Dr. Hilton Doty DO Nurse Practitioner Active Start: February 01, 2025 Dr. Lupillo Quintero MD Attending physician Active Start: February 01, 2025 Team Status: Inactive Member Role/Relationship Status Dates Dr. Hilton Doty DO Primary care physician Active Start: February 06, 2025 End: February 06, 2025 Dr. Hilton Doty DO Referring Provider Active Start: February 06, 2025 End: February 06, 2025 Dr. Derek Barone MD Attending physician Active Start: February 06, 2025 End: February 06, 2025 Team Status: Inactive Member Role/Relationship Status Dates Dr. Hilton Doty DO Primary care physician Active Start: March 13, 2025 End: March 13, 2025 Dr. Hilton Doty DO Attending physician Active Start: March 13, 2025 End: March 13, 2025 Dr. Hilton Doty DO Referring Provider Active Start: March 13, 2025 End: March 13, 2025 Team Status: Inactive Member Role/Relationship Status Dates Dr. Hilton Doty DO Primary care physician Active Start: March 23, 2025 End: March 23, 2025 Dr. Hilton Doty DO Referring Provider Active Start: March 23, 2025 End: March 23, 2025 JAYE Montero Attending physician Active Sta rt: March 23, 2025 End: March 23, 2025 Team Status: Inactive Member Role/Relationship Status Dates Dr. Hilton Doty DO Primary care physician Active Start: March 29, 2025 End: March 29, 2025 JAYE Montero Attending physician Active Sta rt: March 29, 2025 End: March 29, 2025 JAYE Montero Referring Provider Active Star t: March 29, 2025 End: March 29, 2025 Team Status: Inactive Member Role/Relationship Status Dates Dr. Hilton Doty DO Primary care physician Active Start: May 04, 2025 End: May 04, 2025 Dr. Derek Barone MD Attending physician Active Start: May 04, 2025 End: May 04, 2025 Dr. Derek Barone MD Referring Provider Active S tart: May 04, 2025 End: May 04, 2025 Team Status: Active Member Role/Relationship Status Dates Dr. Hilton Doty DO Primary care physician Active Start: May 04, 2025 Dr. Derek Barone MD Attending physician Active Start: May 04, 2025 Dr. Derek Barone MD Referring Provider Active S tart: May 04, 2025 Dr. Derek Barone MD Nurse Practitioner Active S tart: May 04, 2025 Team Status: Inactive Member Role/Relationship Status Dates Dr. Hilton Doty DO Primary care physician Active Start: May 08, 2025 End: May 08, 2025 Dr. Derek Barone MD Attending physician Active Start: May 08, 2025 End: May 08, 2025 Dr. Derek Barone MD Referring Provider Active S tart: May 08, 2025 End: May 08, 2025 Team Status: Active Member Role/Relationship Status Dates Dr. Hilton Doty DO Primary care physician Active Start: May 08, 2025 Dr. Derek Barone MD Attending physician Active Start: May 08, 2025 Dr. Derek Barone MD Referring Provider Active S tart: May 08, 2025 Team Status: Inactive Member Role/Relationship Status Dates Dr. Hilton Doty DO Primary care physician Active Start: May 18, 2025 End: May 18, 2025 Dr. Hilton Doty DO Referring Provider Active Start: May 18, 2025 End: May 18, 2025 JAYE Montero Attending physician Active Sta rt: May 18, 2025 End: May 18, 2025 Goals (unrecognized section and content) Goals [...] ized section and content) DATE CREATED AUTHOR 05/14/2025 [facility] DATE CREATED AUTHOR AUTHOR'S ORGANIZ ATION 05/28/2025 [facility] FOR RECORDS PERTAINING TO PATIENTS WHO ARE [...] BE BASED ON THE PRIMARY CLINICAL RECORDS. [employer] provides no warranty or guarantee of the accuracy or completeness of information in this document.
[2025-06-07 22:51] VITALS: BP 142/60; PULSE 79; RESP 18; TEMP 36.4; O2SAT 100
== END 2025-06-07 22:51 | disposition home or self-care (01) ==
PROVIDERS: Emergency Provider Emergency Medicine; PCP Student in an Organized Health Care Education/Training Program; Visit Provider Emergency Medicine
DX: I73.00 Raynaud's syndrome without gangrene (principal); M06.9 Rheumatoid arthritis, unspecified; I10 Essential (primary) hypertension; F41.9 Anxiety disorder, unspecified; F32.A Depression, unspecified; Z79.899 Other long term (current) drug therapy; Z87.891 Personal history of nicotine dependence
CPT/HCPCS: 99282

== ENCOUNTER 2025-07-02 03:23 | Emergency (ER) | payer OTHER, SELFPAY ==
[2025-07-02 03:24] VITALS: BP 152/92; PULSE 60; RESP 18; TEMP 37.2; O2SAT 100; BMI 30.8
[2025-07-02 03:30] VITALS: BP 99/82; PULSE 67; RESP 16; TEMP 37.2; O2SAT 100
--- NOTE | 2025-07-02 03:34 | ED.VIS.LOWEX ---
HPI History of Present Illness Chief Complaint: Wound Detail of Chief Complaint: Wound on right thigh Informant: patient Narrative Narrative: Patient presents with a wound on her right thigh. She states that she had what she thought was like a small pimple that began about a month ago on her right thigh. She had a similar issue on her left thigh after vein stripping and her PCP opened it up and it drained and then had her on some antibiotic cream. That lesion healed. Now she has this lesion and yesterday she tried to pop the lesion and afterwards it became bruised around the edges. She has had no fever chills or sweats. She is leaving for a cruise and wanted to have it evaluated. [facility] Medical History (Updated 07/02/25 @ 03:[address] Vipin Montaño DO) Raynaud's phenomenon Status post hysteroscopy COVID-19 Wears dentures Wears glasses Anxiety Rheumatoid arthritis Arthritis Kidney stones Former smoker History of edema History of ureteral stone Home Medications ?Medication ?Instructions ?Recorded ?Last Taken ?Type lorazepam 0.5 mg tablet 0.5 mg PO DAILY PRN PRN Anxiety 03/12/20 Unknown History cholecalciferol (vitamin D3) 125 125 mcg PO DAILY 09/24/23 09/28/23 History mcg (5,000 unit) capsule phentermine 11.25 mg-topiramate ER 1 cap PO DAILY 09/24/23 09/28/23 12:40 History 69 mg capsule,[id number] mphas (Qsymia) trazodone 50 mg tablet 50 mg PO QHS 09/25/23 09/27/23 History naproxen 500 mg tablet (Naprosyn) 500 mg PO BID PRN pain #20 tabs 02/05/24 Unknown Rx ondansetron 4 mg disintegrating 4 mg PO Q8H PRN PRN Nausea #10 tabs 02/05/24 Unknown Rx tablet bupropion HCl 75 mg tablet 150 mg PO BID 12/12/24 Unknown History fluoxetine 10 mg capsule (Prozac) 10 mg PO QDAY 12/12/24 Unknown History spironolactone 25 mg tablet 25 mg PO QDAY 12/12/24 Unknown History tramadol 50 mg tablet 50 mg PO Q8 PRN pain 02/06/25 Unknown History hydroxychloroquine 200 mg tablet 200 mg PO DAILY 05/18/25 Unknown History (Plaquenil) sulfamethoxazole 800 1 tab PO BID #14 TABLETS 07/02/25 Unknown Rx mg-trimethoprim 160 mg tablet Allergy/AdvReac Type Severity Reaction Status Date / Time Penicillins (PCN) Allergy Severe Anaphylaxis Verified 07/02/25 03:28 Surgical History Status post hysteroscopic ablation of endometrium (~09/29/23) Hx of varicose vein stripping Hx of cystoscopy Hx of dilation and curettage Hx of tooth extraction History of laparoscopic cholecystectomy S/P tubal ligation Social History current occupational status: employed 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 Smoking Status: Former smoker alcohol intake: never substance use type: does not use seatbelt use: always do you feel safe at home: Yes ROS ROS ED Review of Systems ROS Unobtainable: other Constitutional Constitutional ED: Reports lethargy; Denies chills, fever(s), sweats or weight loss Eyes Eyes: Denies blurry vision, change in vision or diplopia ENT ENT ED: Denies rhinorrhea or sore throat Cardiovascular Cardiovascular: Denies chest pain, orthopnea or racing heartbeat Respiratory/Chest Respiratory/Chest: Denies cough, dyspnea, dyspnea on exertion, orthopnea or sputum Gastrointestinal Gastrointestinal: Denies abdominal pain, diarrhea, nausea or vomiting Genitourinary Genitourinary ED: Denies dysuria, hematuria or urinary frequency Musculoskeletal Musculoskeletal: Denies arthralgias, back pain, myalgias or neck pain Integumentary Reports other Details: Lesion to the right thigh ; Denies abscess, Abrasions or rash Neurologic Neurologic: Denies headache(s) or weakness Psychiatric Psychiatric: Denies anxiety, depression or suicidal thoughts Endocrine Endocrinology: Denies polydipsia, polyphagia or polyuria Hematologic/Lymphatic Hematologic/Lymphatic: Denies easy bleeding, easy bruising or lymphadenopathy Allergic/Immunologic Allergic/Immunologic ED: Denies mouth swelling, tongue swelling or urticaria EXAM Physical Exam Const Vital Signs: 07/02/25 03:24 07/02/25 03:30 Temperature 98.9 F 98.9 F Temperature Source Oral Oral Pulse Rate 60 67 Respiratory Rate 18 16 Blood Pressure 152/92 H 99/82 H Blood Pressure Mean 112 87 Pulse Ox 100 100 Oxygen Delivery Method Room Air Room Air Positive well nourished and well developed General Appearance ED: well developed and NAD HEENT Reports TM's clear and moist mucous membranes normocephalic and atraumatic; Negative for trauma or tenderness Tympanic Membrane ED: Yes TM's clear Eyes PERRL and EOMs intact bilaterally General Eye ED: Negative for pale conjunctiva or scleral icterus Neck no lymphadenopathy, supple and no JVD General: Negative for tenderness Chest Wall inspection of chest normal and palpation of chest normal Chest: Negative for tenderness Resp normal respiratory effort and clear to auscultation bilaterally Effort and Inspection: Negative for respiratory distress or pain with movement Auscultation: Negative for rhonchi, wheezes or diminished lung sounds Cardio regular rate, regular rhythm, S1 normal heart sound, S2 normal heart sound and no murmurs Peripheral Pulses: pulses 2+ throughout GI normal to inspection, nondistended, normoactive bowel sounds, soft to palpation, non-tender, non-distended and no masses Back/Spine no CVA tenderness and no thoracic nor lumbar tenderness Extremity Extremity Narrative: Right thigh-on the medial mid thigh there is a small circular excoriated lesion measuring approximately 1 cm in diameter. Surrounding is some ecchymosis and bruising. There is no erythema or cellulitic changes noted. There is no fluctuance or abscess. General Extremety ED: Negative for edema General Extremity: Negative for edema Neuro oriented x3, CN's II-XII intact bilaterally, no sensory deficits noted and gait normal Sensorium / Orientation: awake, alert, oriented to person, oriented to place and oriented to time Motor Exam: strength 5/5 throughout and strength abnormal Psych mental status grossly normal Skin no rashes or lesions noted and no wounds MDM MDM MDM Narrative Medical decision making narrative: Patient presents with a lesion on her right thigh. It sounds as if though she had a pustule that she popped and then now has this excoriated central lesion with ecchymosis and bruising surrounding it probably from the trauma of compressing the skin around it. She had a similar lesion on the left thigh that is now mostly resolved but has some scarring leftover from that. At this point I will cover her with Bactrim to cover for MRSA. There is no need for any type of I&D. Clinically she looks well. Discharge Plan Triage Chief Complaint: Wound ED Provider: Vipin Montaño Dx/Rx/DC Orders Clinical Impression: Open wound of right thigh Instructions: Cellulitis Prescriptions: New sulfamethoxazole-trimethoprim 800-160 mg tablet 1 tab PO BID Qty: 14 0RF No Action cholecalciferol (vitamin D3) 125 mcg (5,000 unit) capsule 125 mcg PO DAILY Qsymia 11.25-69 mg capsule, ER multiphase 24 hr 1 cap PO DAILY bupropion HCl 75 mg tablet 150 mg PO BID fluoxetine [Prozac] 10 mg capsule 10 mg PO QDAY spironolactone 25 mg tablet 25 mg PO QDAY tramadol 50 mg tablet 50 mg PO Q8 PRN (Reason: pain) lorazepam 0.5 MG tablet 0.5 mg PO DAILY PRN PRN (Reason: Anxiety) trazodone 50 mg tablet 50 mg PO QHS Patient Comments: Take 1-2 tablets by mouth daily at bedtime. ondansetron 4 mg tablet,disintegrating 4 mg PO Q8H PRN PRN (Reason: Nausea) Qty: 10 0RF naproxen [Naprosyn] 500 mg tablet 500 mg PO BID PRN (Reason: pain) Qty: 20 0RF Primary Care Provider: Hilton Doty Referrals: Hilton Doty DO [Primary Care Provider, Medical] - 3-5 Days Print Language: Danish Disposition Disposition: Home, Self Care
[2025-07-02] MEDS: Smz/Tmp Ds Tablet 1 TABLET PO (03:54)
[2025-07-02 03:55] VITALS: BP 114/76; PULSE 60; RESP 18; TEMP 36.4; O2SAT 100
--- OUTSIDE RECORDS SUMMARY | 2025-07-02 03:55 | XMS RPT_ITS | CCD ---
Author Organization [facility] Care Team Providers Care Legal Research Analyst Name Role Phone Hilton Doty DO Primary Care Provider Dr. Hilton Doty Primary Care Provider Dr. Hilton Doty Referring Provider Vincenzo HOSE OPERATOR, HOSE OPERATOR-Jessica Munguia Attending Provider Hilton Doty DO Primary Care Provider Dr. Priscilla Mart Attending Provider [phone] Dr. Hilton Doty Primary Care Provider Dr. Hilton Doty Referring Provider BUSTER Loya NP Attending Provider [phone] Dr. Priscilla Mart Attending Provider [phone] BUSTER Carpenter Attending Provider [phone] Priscilla Mart Referring Provider [phone] Dr. Priscilla Mart Other Provider JAYE Grove Attending Provider Hilton Doty DO Primary Care Provider Lavon RISK CONTROL FIELD REPRESENTATIVE.Lisa ENAMORADO Unavailable Jillian RISK CONTROL FIELD REPRESENTATIVE.Anna ENAMORADO Unavailable Dr. Hilton Doty DO Primary Care Provider [phone] Dr. Hilton Doty DO Referring Provider Laura Bowling Attending Provider Cecelia PA, Laura Referring Provider Dr. Derek Barone MD Attending Provider Soren ADHIKARI, Dr. Canela Attending Provider Vincenzo HOSE OPERATOR-C, Nilda Attending Provider Vincenzo HOSE OPERATOR-C, Nilda Referring Provider Soren ADHIKARI, Dr. Canela Primary Care Provider Dr. Hilton Doty DO Referring Provider Rai PA, Laura Attending Provider [phone] Cecelia PA, Laura Referring Provider [phone] Abisai ADKINS, Dr. Reed Attending Provider [phone] Dr. Hilton Doty DO Attending Provider Tupman HOSE OPERATOR-C, Nilda Attending Provider Vincenzo HOSE OPERATOR-C, Nilda Referring Provider Dr. Charlie Lombardo DO Referring Provider Dr. Charlie Lombardo DO Emergency Provider Knoble HOSE OPERATOR-C, Rajinder Other Provider Munira ADHIKARI, Dr. Guerra Attending Provider Knoble HOSE OPERATOR-C, Rajinder Attending Provider Knoble HOSE OPERATOR-C, Rajinder Referring Provider Khang ADKINS, Dr. Ritter Attending Provider Dr. Priscilla Mart DO Attending Provider Dr. Priscilla Mart DO Referring Provider Dr. Hilton Doty DO Primary Care Provider [phone] Cecelia CEE, Laura Attending Provider [phone] Hilton Doty DO Referring Provider Cecelia PA, Laura Other Provider Dr. Derek Barone MD Referring Provider [phone] Abisai ADKINS, Dr. Reed Other Provider [phone] Bill ADKINS, Dr. Villanueva Attending Provider Bill ADKINS, Dr. Villanueva Referring Provider Soren ADHIKARI, Dr. Canela Primary Care Provider [phone] Rai PA, Laura Attending Provider [phone] Rai PA, Laura Referring Provider [phone] Abisai ADKINS, Dr. Reed Attending Provider [phone] Soren ADHIKARI, Dr. Canela Primary Care Provider [phone] Soren ADHIKARI, Dr. Canela Referring Provider Soren ADHIKARI, Dr. Canela Attending Provider Soren DO, Dr. Canela Other Provider Ingrid ADKINS, Dr. Wesley Attending Provider [phone] Loco RISK CONTROL FIELD REPRESENTATIVE.AUTO GLASS WORKER, Zee Dago [facility] Soren ADHIKARI, Dr. Canela Primary Care Provider [phone] Soren ADHIKARI, Dr. Canela Attending Provider Soren ADHIKARI, Dr. Canela Referring Provider Abisai ADKINS, Dr. Reed Attending Provider [phone] Rai PA, Larua Attending Provider [phone] Rai PA, Laura Referring Provider [phone] Soren ADHIKARI, Dr. Canela Primary Care Provider [phone] Soren ADHIKARI, Dr. Canela Attending Provider Soren ADHIKARI, Dr. Canela Primary Care Physician Rai PA, Laura Nurse Practitioner [phone] Abisai ADKINS, Dr. Reed Attending Physician Abisai ADKINS, Dr. Reed Nurse Practitioner [phone] Bill ADKINS, Dr. Villanueva Attending Physician Soren ADHIKARI, Dr. Canela Referring Provider Rai PA, Laura Attending Physician Soren ADHIKARI, Dr. Canela Attending Physician Soren ADHIKARI, Dr. Canela Nurse Practitioner Ingrid ADKINS, Dr. Wesley Attending Physician Cecelia CEE, Laura Referring Provider Soren ADHIKARI, Dr. Canela Primary Care Physician Soren ADHIKARI, Dr. Canela Attending Physician Soren ADHIKARI, Dr. Canela Referring Provider Abisai ADKINS, Dr. Reed Attending Physician Cecelia CEE, Laura Attending Physician Abisai ADKINS, Dr. Reed Referring Provider [phone] Abisai ADKINS, Dr. Reed Nurse Practitioner Abisai, Derek Attending Unavailable Doty, Hilton Primary [...] Hilton Attending Unavailable Rai, Laura Referring Unavailable Rai, Laura Attending Unavailable Rajinder Hinton Consulting Unavailable Doty, Hilton Primary Care Unavailable Doty, Hilton Primary Care Unavailable Doty, Hilton Attending Unavailable Doty, Hilton Attending Unavailable Doty, Hilton Primary Care Unavailable [place], Derek Attending Unavailable [place], Derek Referring Unavailable Doty, Hilton Primary Care Unavailable Doty, Hilton Primary Care Unavailable Doty, Hilton Referring Unavailable Doty, Hilton Attending Unavailable Tupman HOSE OPERATOR, Nilda Referring Unavailable Vincenzo HOSE OPERATOR, Nilda Attending Unavailable Doty, Hilton Primary Care Unavailable Rai, Laura Attending Unavailable Doty, Hilton Primary Care Unavailable Rai, Laura Referring Unavailable Le, Charlie Referring Unavailable Le, Charlie Attending Unavailable Doty, Hilton Primary Care Unavailable Doty, Hilton Primary Care Unavailable Ortiz, Jasen Attending Unavailable Abisai, Derek Referring Unavailable Abisai, Derek Attending Unavailable Doty, Hilton Primary Care Unavailable Rai, Laura Consulting Unavailable Bill, Kay Referring Unavailable Doty, Hilton Primary Care Unavailable Bill, Kay Attending Unavailable Rai, Laura Referring Unavailable Doty, Hilton Primary Care Unavailable Rai, Laura Attending Unavailable Akash Joe Attending Unavailable Doty, Hilton Primary Care Unavailable Doty, Hilton Referring Unavailable Doty, Hilton Attending Unavailable Abisai, Derek Referring Unavailable [place], Derek Attending Unavailable Doty, Hilton Primary Care Unavailable Knoble, Rajinder Referring Unavailable Knoble, Rajinder Attending Unavailable Doty, Hilton Primary Care Unavailable Rai, Laura Attending Unavailable Doty, Hilton Primary Care Unavailable Rai, Laura Referring Unavailable [place], Derek Attending Unavailable [place], Derek Referring Unavailable Doty, Hilton Primary Care Unavailable Doty, Hilton Primary Care Unavailable Dtoy, Hilton Referring Unavailable Doty, Hilton Attending Unavailable Rai, Laura Referring Unavailable Abisai, Derek Attending Unavailable Doty, Hilton Primary Care Unavailable Stone Quiñonez Attending Unavailable Doty, Hilton Primary Care Unavailable [place], Derek Referring Unavailable Doty, Hilton Primary Care Unavailable [place], Derek Attending Unavailable Rai, Laura Consulting Unavailable Abisai, Derek Consulting Unavailable Doty, Hilton Primary Care Unavailable Doty, Hilton Consulting Unavailable Doty, Hilton Referring Unavailable Lupillo Quintero Attending Unavailable Abisai, Derek Attending Unavailable [place], Derek Consulting Unavailable [place], Derek Referring Unavailable Doty, Hilton Primary Care Unavailable Vincenzo HOSE OPERATOR, Nilda Attending Unavailable Doty, Hilton Primary Care Unavailable Doty, Hilton Referring Unavailable [place], Derek Attending Unavailable Doty, Hilton Primary Care Unavailable Rai, Laura Referring Unavailable Abisai, Derek Attending Unavailable Doty, Hilton Primary Care Unavailable Priscilla Mart Attending Unavailabl e Doty, Hilton Primary Care Unavailable Doty, Hilton Referring Unavailable Rai, Laura Attending Unavailable Doty, Hilton Primary Care Unavailable Doty, Hilton Referring Unavailable [place], Derek Attending Unavailable Doty, Hilton Primary Care Unavailable Doty, Hilton Referring Unavailable Rai, Laura Attending Unavailable Doty, Hilton Primary Care Unavailable Doty, Hilton Referring Unavailable Doty, Hilton Primary Care Unavailable Laura Rai Attending Unavailable Doty, Hilton Referring Unavailable Rai, Laura Attending Unavailable Doty, Hilton Primary Care Unavailable Doty, Hilton Referring Unavailable Doty, Hilton Primary Care Unavailable Cecelia, Laura Attending Unavailable Doty, Hilton Referring Unavailable Priscilla Mart Referring Unavailabl e Doty, Hilton Primary Care Unavailable Priscilla Mart Attending Unavailabl e Doty, Hilton Primary Care Unavailable Doty, Hilton Attending Unavailable Doty, Hilton Referring Unavailable DOTY, HILTON L Attending Unavailable DOTY, HILTON L Primary Care Unavailable DOTY, HILTON L Attending Unavailable DOTY, HILTON L Primary Care Unavailable DOTY, HILTON L Attending Unavailable DOTY, HILTON L Primary Care Unavailable DOTY, HILTON L Primary Care Unavailable DOTY, HILTON L Attending Unavailable DOTY, HILTON L Primary Care Unavailable DOTY, HILTON L Attending Unavailable DOTY, HILTON L Attending Unavailable DOTY, HILTON L Primary Care Unavailable RAJINDER HINTON Attending Unavailable DOTY, HILTON L Primary Care Unavailable Allergies Allergy Classification Reported Allergen(s) Allergy Type Date of Onset Reaction(s) Facility Penicillins (antibiotic) (3 sources) Penicillins Drug Allergy 4 Unknown [facility] (5 sources) Penicillins; Translations: [PENICILLINS] Drug Intolerance 4 Unknown [facility] Work Phone: (20 sources) Penicillins Drug Intolerance 4 Unknown [facility] Work Phone: (20 sources) Penicillins Allergy to substance 3 Unknown, Anaphylaxis [facility] (13 sources) Penicillins Drug Intolerance 4 Unknown [facility] (1 source) Penicillins Drug allergy (disorder) 5 [facility] Repository Medications Current Medications Medication Drug Class(es) Dates Sig (Normalized) Sig (Original) [id number] 200 actuat albuterol 0.09 mg/actuat metered dose [...] needed for pain February 05, 2024 12:00am Complies with drug [...] needed for Nausea February 05, 2024 12:00am Complies with drug [...] HOURS NEEDED as needed for Pain 10 April 30, 2017 7:10am May 07, 2017 [...] Discontinued 100 mg PO TWICE A DAY 20 November 20, 2023 12:00am November 29, 2023 [...] tablet by jose th once daily. levonorgestrel 0.279773 mg/hr intrauterine system (20 sources) Progestin, Progestin-containing [...] 0 02/05/2023 05/06/2023 Active Start: 02-01-2022 End: 06-22-2023 take 1 capsule by mouth once daily [...] 04, 2024 12:00am November 02, 2024 11:32am Donzkabxu-Uccpejlqq-Akftuzhd (20 sources) Start: 08-16-2023 End: 09-24-2023 Jabwgmcmm-Dndxqtgaa-Vidymerw ([place]) 40-1-0.5 mg tablet Discontinued 1 {tbl} PO DAILY 30 August 16, 2023 1:00am September 24, 2023 9:38am Start: 08-16-2023 End: 09-24-2023 Ppsihjbrx-Pukfwetnm-Cgyrlgll dr ([place]) 40-1-0.5 mg tablet Discontinued 1 {tbl} PO DAILY August 16, 2023 1:00am September 24, 2023 9:38am Start: 08-16-2023 End: 09-24-2023 Aswpgqapu-Vofmexaju-Fxxmhdct dr ([place]) 40-1-0.5 mg tablet Discontinued 1 {tbl} PO DAILY August 16, 2023 12:00am September 24, 2023 8:38am Start: 08-16-2023 End: 09-24-2023 take 1 tablet by mouth once daily Rbqmkfway-Jktlglrgk-Ulcvsunleh (Myfembre e) 40-1-0.5 mg tablet Discontinued 1 TABLET PO DAILY August 16, 2023 1:00am September 24, 2023 9:38am Start: 08-16-2023 take 1 tablet by jose th once daily Pugcxwbuy-[place]-Tlscdnfdvd (Myfembre e) 40-1-0.5 mg tablet Active 1 [...] (2 sources) Pain in right leg; Translations: [Pain in right leg] Onset: 03-13-2025 Episodic Other connective tissue disease (4 sources) Pain in left leg; Translations: [Pain in left leg] Onset: 01-17-2025 Episodic Other diseases of veins [...] papillomavirus (HPV) DNA test positive] 09-14-2023 Episodic Skin and subcutaneous tissue infections (1 source) Local infection of the skin and subcutaneous tissue, unspecified; Translations: [Pustule] Onset: 06-09-2025 Episodic Spondylosis; intervertebral disc disorders; other back problems (4 sources) Thoracic back pain; Translations: [Pain in thoracic spine] 02-08-2024 Episodic Superficial injury; contusion (20 sources) Contusion of right shoulder; Translations: [Contusion of right shoulder, initial encounter] 02-13-2024 Episodic Systemic lupus erythematosus and connective tissue disorders (2 sources) Undifferentiated connective tissue disease; Translations: [Systemic involvement of connective tissue, unspecified] Chronic Unclassified (1 source) Encounter for health counseling related to travel; Translations: [Travel advice encounter] Onset: 06-09-2025 Unclassified (1 source) Obesity, Class I, BMI 30-34.9; Translations: [Obesity, Class I, BMI 30-34.9] Onset: 01-21-2022 Viral infection (20 sources) Disease caused by 2019-nCoV; Translations: [COVID-19] 06-11-2023 Episodic Past or Other Problems Problem Classification Problem Date Documented Date Episodic/Chronic Fluid and electrolyte disorders (20 sources) [...] 04-25-2024 04-25-2024 Episodic Other connective tissue disease (3 sources) Other symptoms and signs involving the musculoskeletal system; Translations: [Other symptoms and signs involving the musculoskeletal system] Onset: 01-17-2025 Episodic Other connective tissue disease (1 source) Other specified soft tissue disorders; Translations: [Other specified soft tissue disorders] Onset: 01-03-2025 Episodic Other connective tissue disease (1 source) Pain in leg, unspecified; Translations: [Pain in leg, unspecified] Onset: 11-02-2024 Episodic Other lower respiratory disease (3 sources) Shortness of breath; Translations: [Shortness of breath] Onset: 04-25-2024 Episodic Other lower respiratory disease [...] codes; unclassified (2 sources) Localized edema; Translations: [Localized edema] Onset: 01-21-2022 Episodic Unclassified (20 sources) History of ureteral stone 04-21-2022 Varicose veins of lower extremity (20 sources) Varicose veins of lower limb co-occurrent with edema; Translations: [Varicose veins of bilateral lower extremities with other complications] Onset: 09-15-2014 09-15-2014 Episodic Results Test Name Value Interpretation Reference Range Facility [facility] 06-09-2025 CNOV Office Visit (FAMPWS ) -- WANDA REYNA ([id number]) 1980 F Date Time Provider Department 06/09/25 11:00 AM HILTON DOTY FAMPWS During your visit today, we recorded the following information about you: Temperature Pulse Respiration Blood pressure 97 degrees 64/minute 12/minute 120/80 Weight 88 kg Hilton Doty, DO 06/09/2025 12:22 PM Signed CC: Wanda Reyna is a 45 year old female who presents to the office for follow up HPI: Raynaud's disease, had recent right hand flare up 5th finger that was severe. Was seen in the EMERGENCY DEPARTMENT on 05/04/25 at [facility] due to symptoms that were severe. Was told by the EMERGENCY DEPARTMENT physician that it was secondary to Raynaud's flare up of symptoms. Inflammatory polyarthropathy, due to recent flare up of symptoms with Raynauds and joint pains, she is again now willing to have opinion again by [facility] Picker Mood, improved job situation and loves her work. She has support from her . Still struggling with anxiety symptoms. No SI or HI. Is taking wellbutrin and Prozac 10 mg a day. Is going on a cruise and is worried about how she is going to do on this trip with plane and boat travel with anxiety and motion sickness. She is asking how she can help this. PAST MEDICAL HISTORY Diagnosis Date MAXIM positive 09/2014 Inflammatory polyarthropathy (HCC) Kidney stone with stent Raynaud's disease PAST SURGICAL HISTORY Procedure Laterality Date DANDC (MISSED AB 1ST TRIMESTER) 2001 ESWL Right 05/08/2017 EXTRACTION, ERUPTED TOOTH OR EXPOSED ROOT (ELEVATION AND/OR FORCEPS REMOVAL) GALLBLADDER/EF TUBAL LIGATION HX 2005 Social History: SOCIAL HISTORY[1] FAMILY HISTORY Problem Relation Age of Onset Alcohol/Drug Father Breast Cancer Maternal Grandmother Hypertension Maternal Grandmother Cancer Paternal Grandmother Breast Cancer Paternal Aunt x2 Cancer Paternal Aunt bone Current Outpatient prescriptions: phentermine-topiramate ER (QSYMIA) 11.25-69 mg 24 Hr Capsule Take 1 capsule by mouth once daily for 90 days. BMI 31.32 spironolactone (ALDACTONE) 50 mg tablet Take 1 tablet by mouth once daily. traZODone (DESYREL) 50 mg tablet Take 1-2 tablets by mouth daily at bedtime. phentermine-topiramate ER (QSYMIA) 11.25-69 mg 24 Hr Capsule Take 1 capsule by mouth once daily for 90 days. BMI 31.32 buPROPion (WELLBUTRIN) 75 mg tablet Take 2 tablets in the AM and 2 tablet in the afternoon FLUoxetine (PROZAC) 10 mg capsule Take 1 capsule by mouth once daily. hydrOXYchloroQUINE (PLAQUENIL) 200 mg tablet Take 1 tablet by mouth once daily. hydrocortisone 2.5 % cream Apply 1 application to affected area two times a day as needed (hemorrhoids). Location: hemorrhoids albuterol HFA (PROVENTIL HFA, VENTOLIN HFA) 90 mcg/actuation inhaler Inhale 2 Puffs as instructed every 4 hours as needed for wheezing/shortness of breath. naproxen (NAPROSYN) 500 mg tablet Take 1 tablet by mouth two times a day as needed (for pain/inflammation). Take with food. Cholecalciferol, Vitamin D3, 2,000 unit cap Take 2 tablets by mouth once daily. Allergies: ALLERGIES Allergen Reactions Penicillins Unknown ROS: See HPI PE: 06/09/25 1104 BP: 120/80 Pulse: 64 Resp: 12 Temp: 36.1 ?C (97 ?F) TempSrc: Left Tympanic Weight: 88 kg (194 lb) Gen: AANDOX3, NAD, non-toxic appearing, tearful in office, no distress HEENT: PERRLA, EOMs intact b/l, nares without drainage, pharynx without erythema, exudate, lesions, or drainage. Uvula midline. Neck: No LAD, no thyromegaly, no meningismus. CV: RRR, no murmur Lungs: CTA b/l, no wheezing Skin: No rashes, lesions, or wounds on exposed skin. Significant varicose veins of legs, left >right leg, also with spider vein changes b/l legs Trace to 1+ leg symmetric swelling. ASSESSMENT/PLAN: 1. Inflammatory polyarthropathy (HCC) - ICD9: 714.9, ICD10: M06.4 (primary diagnosis) Continue same medications F/u with [facility] P[facility] due to recent Raynaud's symptoms. - CONSULT TO RHEUM/IMMUN DISEASE 2. Obesity, Class I, BMI 30-34.9 - ICD9: 278.00, ICD10: E66.811 Weight decreasing - Behavioral intervention and - Eat well program 3. Dyslipidemia - ICD9: 272.4, ICD10: E78.5 - Controlled - Continue current medications - Counseled on healthy diet and regular exercise 4. Raynaud's phenomenon without gangrene - ICD9: 443.0, ICD10: I73.00 See above - CONSULT TO RHEUM/IMMUN DISEASE 5. Pustule - ICD9: 686.9, ICD10: L08.9 - start on rx prn for skin sores as needed. - MUPIROCIN 2 % TOPICAL OINTMENT 6. Situational anxiety - ICD9: 300.09, ICD10: F41.8 rx prn for travel on upcoming cruise Also adjust up prozac to 20 mg a day No SI or HI - ALPRAZOLAM 0.5 MG TABLET - FLUOXETINE 20 MG CAPSULE 7. LIVIA (generalized anxiety disorder) - ICD9: 300.02, ICD10: F41.1 rx prn for tr (more content not included)... Normal [facility] Emergency Department Summary on 06-07-2025 Emergency Department Summary [facility] Medical Records Department [address] [place] [id number] Emergency Department Summary 06/07/25 MR#: [id number] Acct: [id number] Name: WANDA REYNA Rep #: [id number] : 1980 45 From: Jaesn Ortiz MD PCP: Dr. Hilton Doty, DO Status:REG ER Location: ED HPI History of Present Illness Chief Complaint: Upper Extremity Injury Detail of Chief Complaint: Patient presents because of her right little finger turning white and was b Informant: patient Occured/Mechanism Comment: Raynaud's Onset/Context/Timing Onset: Today and Hours Context: Sudden Onset Timing: Intermittent Quality of Pain: - (Pain and warm sensation distal aspect of the right little) Location: Right little finger Current Severity: Mild Maximum Severity: Severe Worsened by: Nothing Relieved by: Nothing Associated Symptoms Associated Symptoms: Negative for Parasthesia, Weakness or Loss of Funtion Narrative Narrative: Patient is a 45-year-old woman. She has history of autoimmune disorder. She was not able to tell me what autoimmune disorder. Based on review of records she has history of rheumatoid arthritis. She also has history of Raynaud's phenomenon. She states her finger became white x 2. It then was blue over the proximal phalanx. What was unusual is that the tip of her finger felt warm. She is presently not on nifedipine. She may have been on it. She does not remember the name of the medicine, description of the pill or the strength of the medication. Regardless she apparently had a reaction and the medicine was discontinued. She is presently on Plaquenil. She states this occurred while she was sitting in her home. Patient began to cry. When asked why she said she has never had it happen this badly . I informed her there is nothing to worry about and that what she is describing is Raynaud's phenomenon. She again reiterated that she has Raynaud's phenomenon. When asked specifically why is she upset and she responded I have never had it this bad . Prior similar symptoms: Yes Recent Illness/Hospitalization: No [facility] Medical History (Updated 06/07/25 @ 22:[address] Jasen Ortiz MD) Raynaud's phenomenon Status post hysteroscopy COVID-19 Wears dentures Wears [...] DAILY 09/24/23 09/28/23 12:40 History 69 mg capsule,ext.cnxjeaw78ik mphas (Qsymia) trazodone 50 mg tablet 50 mg PO QHS 09/25/23 09/27/23 His tory naproxen 500 mg tablet (Naprosyn) 500 mg PO BID PRN pain #20 tabs 0 02/05/24 Unknown Rx ondansetron 4 mg disintegrating 4 mg PO Q8H PRN PRN Nausea #10 tab s 02/05/24 Unknown Rx tablet bupropion HCl 75 mg tablet 150 mg PO BID 12/12/24 Unknown His tory fluoxetine 10 mg capsule (Prozac) 10 mg PO QDAY 12/12/24 Unknown Hi story spironolactone 25 mg tablet 25 mg PO QDAY 12/12/24 Unknown His tory tramadol 50 mg tablet 50 mg PO Q8 PRN pain 02/06/25 Unkn own History hydroxychloroquine 200 mg tablet 200 mg PO DAILY 05/18/25 Unknown H istory (Plaquenil) Allergy/AdvReac Type Severity Reaction Status Date / Time Penicillins (PCN) Allergy Severe Anaphylaxis Verified 06/07/25 20:47 Surgical History Status post hysteroscopic ablation of endometrium ( 09/29/23) Hx of varicose vein stripping Hx of cystoscopy Hx of dilation and curettage Hx of tooth extraction History of laparoscopic cholecystectomy S/P tubal ligation Social History current occupational status: employed 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 Smoking Status: Former smoker alcohol intake: never substance use type: does not use seatbelt use: always do you feel safe at home: Yes ROS ROS ED Constitutional Constitutional ED: Denies chills, fever(s), subjective or sweats Integumentary Reports other Details: Pale right middle finger then cyanosis over the proximal phalange Neurologic Neurologic: Denies paresthesias or weakness Psychiatric Psychiatric: Denies anxiety or depression Hematologic/Lymphatic Hematologic/Lymphatic: Denies easy bleeding or easy bruising EXAM Physical Exam Const Vital Signs: 06/07/25 20:48 Temperature 97 F L Temperature Source Temporal Pulse Rate 77 Respiratory Rate 18 Blood Pressure 158/83 H Blood Pressure Mean 108 Pulse Ox 99 O (more content not included)... Normal [facility] MR/BMSAlf 05-18-2025 MR/BMSEDU [facility] Vascular Surgery [address] [place], [place] [address] OFFICE VISIT Date of Service: 05/18/25 MR#: [id number] Acct: [id number] Name: WANDA REYNA Rep #: [id number] : 1980 Provider: JAYE Montero Age/Sex: 45/F Location: [facility] Status: Signed Intake Vital Signs 01/10/25 09:01 [...] PO DAILY 09/24/23 05/18/25 History 69 mg capsule,ext.xkinjjr59se mphas (Qsymia) trazodone 50 mg tablet 50 [...] History current occupational status: employed current occupation: [employer]- Pulmonary medicine Smoking Status: Former smoker alcohol [...] No dizzin (more content not included)... Normal [facility] Venous Duplex US, Unilateral on 05-08-2025 Venous Duplex US, Unilateral [facility] Cardiovascular Services [address] [place] [address] Venous Duplex US, Unilateral 05/08/25 0813 MR#: [id number] Acct: [id number] Name: WANDA REYNA Rep #: [id number] : 1980 45 From: Derek Barone MD [...] Derek Barone MD; Dr. Hilton Doty DO Date Dictated: 05/08/25812 Date Transcribed: 05/08/251728 Welder Fitter: Signed Normal [facility] Venous duplex ultrasound rep ortOrdered By: Derek Barone on 05-08-2025 US Vein [facility] Cardiovascular Services [address] [place] [address] Venous Duplex US, Unilateral 05/08/25812 MR#: [id number] Acct: [id number] Name: WANDA REYNA Rep #:[id number] : 1980 45 From: Derek Quintero Attending [...] ~ Date Dictated: 05/08/25812 Date Transcribed: 05/08/251728 Welder Fitter: Signed [facility] Work Phone: Operative Reporton 5 Operative Report [facility] Medical Records Department [address] [place] [address] Operative Report 05/04/25 1747 MR#: [id number] Acct: [id number] Name: WANDA REYNA Rep #: [id number] : 1980 45 From: Derek Barone MD PCP: Dr. Hilton Doty DO Status:[facility] Location: [facility] Operative Report (Standard) Operative Information Date of Procedure: 05/04/25 Pre-Operative Diagnosis: Venous insufficiency with pain refractory to compression therapy Post-Operative Diagnosis: Same Surgery/Procedure Performed: Left small saphenous foam ablation product strategy director: No Type of Anesthesia: Local and Sedation,Conscious [...] site the patient was taken to the Rubber Flap Cutter where she was positioned prepped and draped [...] Surgical Findings: See above Complications Complications: No 05/04/25 1750 Cosigner Signature (if applicable): CC: Dr. Derek Barone MD; Dr. Hilton Doty DO Signed Normal [facility] Fact V Leiden Mutationon FACTOR V LEIDEN Comment Normal . [facility] Comment on above: Result Comment: Resu lt: c.1601G>A (p.Rhl699Nyq) - Not Detected This result is not associated with an increased risk for venous thromboembolism. See Additional Clinical Information and Comments. Additional Clinical Information: Venous thromboembolism is a multifactorial disease influenced by genetic, environmental, and circumstantial risk factors. The c.1601G>A (p. Edi163Dpg) variant in the F5 gene, commonly referred [...] c.*97G>A variant and Factor V Leiden (PMID: 33202537). Additional risk factors include but are not [...] health care providers to discuss results at [phone] ([phone]). Test Details: Variant Analyzed: c.1601G>A (p. Ojd945Ave), referred to as Factor V Leiden Methods/Limitations: [...] developed and its performance characteristics determined by [facility]. It has not been cleared or approved by the Food and Drug Administration. References: Radha S, Gloria PENN, Tushar R, Jean WW, Alejandro JH; [employer] Professional Practice and Guidelines Committee. Addendum: [employer] consensus statement on factor V Leiden mutation testing. Lindsey Med. 2020Oct 05. doi: 10.1038/m73312-269-52093-y. PMID: 08778545. Mitch GUERRERO. Factor V Leiden Thrombophilia. 1998December 14 (Updated 2017Aug 06). In: Riaz MP, Robb HH, Todd RA, et al., editors. Elizabeth(R) (Internet). [place]): formerly [facility]; 1059-5022. Available from: https://www.ncbi.nlm.nih.gov/books/DHW1053/ Darek Helton, Gloria PENN, Darly X, Vishnu B, Lia EB, Kell P, Michele CS; [employer] Laboratory Manager Utilities Committee. Venous thromboembolism laboratory testing (factor V Leiden and factor II c. *97G>A), 2018 update: a technical standard of the [employer] and Genomics (ACMG). Lindsey Med. 2017;20(12): 1402-6797. doi: 10.1038/[id number]-b. Epub 2017May 07. PMID: 40163905. Performed By: #### L 4500.5000 ####[facility] [address] [place], [place], [id number] Reviewed By Comment Normal . [facility] Comment on above: Result Comment: Tech nical Component performed at [facility] [place] Professional Component performed by: Dashawn Estrada, PhD, [facility] [id number], [facility], [address] [place] [address] Performed at: - [facility] [place] [address], [place], [place] [id number] Resident Assistant: Jhonny Robles [facility], Phone: [phone] Performed By: #### L 4500.5000 ####[facility] [address] [place], [place], [id number] MR/Aly 03-23-2025 MR/BMS.BVS [facility] Vascular Surgery 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 Normal [facility] Thrombotic Risk Profileon ANTICARDIO IgG < 9 Normal 0-14 [facility] Comment on above: Result Comment: Nega tive: <15 Indeterminate: 15 - 20 Low-Med Positive: >20 - 80 High Positive: >80 Performed By: #### L 100.0100, L501.6710, L506.1001, L500.4050, L506.0400, L501.9520, L503.6030, L503.0106 #### [facility] Laboratory [address] [facility] [place], [place], [phone] (222) Anticardio.IgM < 9 Normal 0-12 [facility] Comment on above: Result Comment: Nega tive: <13 Indeterminate: 13 - 20 Low-Med Positive: >20 - 80 High Positive: >80 Performed By: #### L 100.0100, L501.6710, L506.1001, L500.4050, L506.0400, L501.9520, L503.6030, L503.0106 #### [facility] [address] [facility] [place], [place], [phone] (527) APCR 2.8 ratio Normal 2.2-3.5 [facility] Comment on above: Result Comment: The APCR result may be falsely increased (masking an abnormal, low APCR result) in patients on direct Xa inhibitor (e.g., rivaroxaban, apixaban, edoxaban) or a direct thrombin inhibitor (e.g., dabigatran) anticoagulant therapy due to assay interference by these drugs. Performed By: #### L 100.0100, L501.6710, L506.1001, L500.4050, L506.0400, L501.9520, L503.6030, L503.0106 #### [facility] [address] [place], [address] aPTT Coag (Bld) [Time] 39.5 s Normal 0.0-43.5 [facility] Comment on above: Performed By: #### L 100.0100, L501.6710, L506.1001, L500.4050, L506.0400, L501.9520, L503.6030, L503.0106 #### [facility] [address] [place], [address] AT3 FUNCTIONAL 114 Normal 75-135 [facility] Comment on above: Result Comment: Dire ct Xa inhibitor anticoagulants such as rivaroxaban, apixaban and edoxaban will lead to spuriously elevated antithrombin activity levels possibly masking a deficiency. Performed By: #### L 100.0100, L501.6710, L506.1001, L500.4050, L506.0400, L501.9520, L503.6030, L503.0106 #### [facility] [address] [place], [address] B2 GLYCO I IGG <9 Normal 0-20 [facility] Comment on above: Result Comment: Resu lt [...] L506.1001, L500.4050, L506.0400, L501.9520, L503.6030, L503.0106 #### [facility] [address] [place], [address] B2 GLYCO I IGM <9 Normal 0-32 [facility] Comment on above: Result Comment: Resu lt [...] L506.1001, L500.4050, L506.0400, L501.9520, L503.6030, L503.0106 #### [facility] [address] [place], [address] DILUTE PT 37.1 sec Normal 0.0-47.6 [facility] Comment on above: Performed By: #### L 100.0100, L501.6710, L506.1001, L500.4050, L506.0400, L501.9520, L503.6030, L503.0106 #### [facility] [address] [place], [address] dPT CONFIRM % 1.11 Ratio Normal 0.00-1.34 [facility] Comment on above: Performed By: #### L 100.0100, L501.6710, L506.1001, L500.4050, L506.0400, L501.9520, L503.6030, L503.0106 #### [facility] [address] [place], [address] DRVVT 38.0 sec Normal 0.0-47.0 [facility] Comment on above: Performed By: #### L 100.0100, L501.6710, L506.1001, L500.4050, L506.0400, L501.9520, L503.6030, L503.0106 #### [facility] [place], [address] Factor II, DNA Comment Normal . [facility] Comment on above: Result Comment: Resu lt: [...] the F2 gene and a c.1601G>A (p. Peu107Nws) variant in the F5 gene (commonly referred to as Factor V Leiden) have an approximately 20- fold increased risk for venous thromboembolism. Risks are likely to be even higher in more complex genotype combinations involving the F2 c.*97G>A variant and Factor V Leiden (PMID: 62744445). Additional risk factors include but are not [...] health care providers to discuss results at [phone] ([phone]). Test Details: Variant analyzed: c.*97G>A, previously referred to as [id number] Methods/Limitations: DNA analysis of the F2 gene [...] developed and its performance characteristics determined by [facility]. It has not been cleared or approved by the Food and Drug Administration. References: Radha S, Gloria PENN, Tushar R, Jean WW, Alejandro JH; [employer] Professional Practice and Guidelines Committee. Addendum: [employer] consensus statement on factor V Leiden mutation testing. Lindsey Med. 2020Oct 05. doi: 10.1038/[id number]-y. PMID: 19736126. Mitch GUERRERO. Prothrombin Thrombophilia. 2005Feb 24 [Updated 2020Sep 06]. In: Riaz MP, Robb HH, Todd RA, et al., editors. Elizabeth(R) [Internet]. [place] ([place]): formerly [facility]; 3598-1757. Available from: https://www.ncbi.nlm.nih.gov/books/MRB6625/ Darek S, Gloria PENN, Daryl X, Vishnu B, Lia EB, Kell P, Michele CS; [employer] Laboratory Manager Utilities Committee. Venous thromboembolism laboratory testing (factor V Leiden and factor II c.*97G>A), 2018 update: a technical standard of the [employer] and Genomics (ACMG). Lindsey Med. 2018 Jul;20(12):6000-5303. doi: 10.1038/[id number]-r. Epub 2017May 07. PMID: 93733925. Performed By: #### L 100.0100, L501.6710, L506.1001, L500.4050, L506.0400, L501.9520, L503.6030, L503.0106 #### [facility] [address] [place], [place], [address] HOMOCYSTEINE 6.9 umol/L Normal 0.0-14.5 [facility] Comment on above: Performed By: #### L 100.0100, L501.6710, L506.1001, L500.4050, L506.0400, L501.9520, L503.6030, L503.0106 #### [facility] [address] [place], [address] Interpretation Comment: Normal . [facility] Comment on above: Result Comment: No l upus anticoagulant was detected. Performed By: #### L 100.0100, L501.6710, L506.1001, L500.4050, L506.0400, L501.9520, L503.6030, L503.0106 #### [facility] [address] [place], [address] Plasminogen Act 115 Normal 70-150 [facility] Comment on above: Performed By: #### L 100.0100, L501.6710, L506.1001, L500.4050, L506.0400, L501.9520, L503.6030, L503.0106 #### [facility] [address] [place], [address] PROTEIN C,FUNC 96 Normal 73-180 [facility] Comment on above: Performed By: #### L 100.0100, L501.6710, L506.1001, L500.4050, L506.0400, L501.9520, L503.6030, L503.0106 #### [facility] [address] [place], [address] PROTEIN S, FREE 94 Normal 61-136 [facility] Comment on above: Performed By: #### L 100.0100, L501.6710, L506.1001, L500.4050, L506.0400, L501.9520, L503.6030, L503.0106 #### [facility] [address] [place], [place], [address] Reviewed By: Comment Normal . [facility] Comment on above: Result Comment: Tech nical Component performed at [facility] [place] Professional Component performed by: Tremaine Carpenter, PhD, [facility] [id number], [facility], [address] [place] [address] Performed at: - [address] [id number] Resident Assistant: Gabe Fry PhD, Phone: [phone] Performed at: - [facility] [id number] Resident Assistant: Man Dykes MD, Phone: [phone] Performed at: [facility] [address] [facility], [facility], [place] [id number] Resident Assistant: Jhonny Robles [facility], Phone: [phone] Performed By: #### L 100.0100, L501.6710, L506.1001, L500.4050, L506.0400, L501.9520, L503.6030, L503.0106 #### [facility] [address] [place], [place], [address] [facility] WANDA [facility] ([id number]) 1980 F Date Time Provider Department 03/15[facility]25 [facility] your visit today, we recorded the following information about you: Rox Villarreal, RN 03/15/2025 8:50 PM Signed Pt calling in [...] called in and spoke with nurse: Wanda S Reyna to [facility] Clinical Pool (supporting Hilton Doty DO) 03/15/25 7:22 PM I called this afternoon spoke with one of [facility] nurse I think I confused her my [...] B and sulfate and dexamethasone ophthalmic ointment group home sterile Thanks (Sent Nemesiohart msg back to [...] 03/16/2025 8:00 AM Signed Pt informed via [facility] message. Please see additional message from patient [...] DO 03/17/2025 7:11 AM Signed What ointment? DO Krissy Brady [place], [place] 03/17/2025 7:42 AM Addendum 1) Regarding cream per pt's MyChart msgs below: The cream refill I thing I talked with you about need refill is Neomycin and polymyxin B and sulfate and dexamethasone ophthalmic ointment group home sterile Thanks It is an eye ointment my eye doctor Dr. Genao had filled it before and Dr. Doty said to send her a message what it was called and she could send it in for me. (BR RN) 2) Another MyChart msg pt sent last evening the : When I called and talked to nurse at [facility] other night I had said that about they had said Your provider reached out to us. Then when I got off phone with [facility] nurse I listened to the message again but worker from [place]?s office was talking avril fast, after listening to it again they said they talked to their provider and didn?t know why I was coming in due to [place] already went over stuff with me. Sorry for the miss communication on my part. Is Dr. Doty still going to reach out to [place]? I didn?t reach out to schedule due [...] to be from eye doctor please DO Maamdou Brady Amanda, RN 03/27/2025 7:22 PM Signed Called and left a voicemail for the Patient to call back and ask for a nurse to receive the providers message. ELSIE Bishop Amanda, RN 03/27/2025 (more content not included)... Normal [facility] Telephone (INTMWS) -- WANDA REYNA ([id number]) 1980 F Date Time Provider Department 03/15/25 HILTON DOTY INTMWS During your visit today, we recorded the following information about you: Catina Austin LPN 03/15/2025 3:59 PM Signed Electronic PA rec'd and completed. This was denied. Note from payer: Request Reference Number: [id number]. PHENT/TOPIRA CAP is denied due to Plan Exclusion. [...] to its destination. To be filled at: [facility] [address] [place] [address] [address] - [phone] Catina Austin LPN 03/17/2025 3:55 PM Signed Pt notified via my chart. Allergies As of Date: 03/15/2025 Noted Allergy Reaction PENICILLINS 08/30/2013 16 - Unknown Date Reviewed: 03/13/2025 Reviewed by: Char Valencia LPN - Fully Assessed Reason for Visit: Insurance Authorization [[id number]] Prescriptions as of 03/17/2025 - traMADol (ULTRAM) [...] Status:Closed by CATINA AUSTIN on 03/17/25 Normal [facility] Activated protein C (APC) re sistance assayOrdered By: Hilton Doty on 03-13-2025 Activated protein C (APC) resistance assay 2.8 ratio 2.2-3.5 [facility] Comment on above: The APCR result may be falsely increased (masking anabnormal, low APCR result) in patients on direct Xainhibitor (e.g., rivaroxaban, apixaban, edoxaban) or adirect thrombin inhibitor (e.g., dabigatran) anticoagulanttherapy due to assay interference by these drugs. Blood or tissue coagulation factor II targeted mutation analysis by molecular geneticOrdered By: Hilton Doty on 03-13-2025 F2 gene targeted mutation analysis [employer] Nom (Bld/Tiss) Comment . [facility] Comment on above: Result: c.*97G>A - N [...] in theF2 gene and a c.1601G>A (p. Mug118Hpz) variant in the F5 gene(commonly referred to as Factor V Leiden) have an approximately 20-fold increased risk for venous thromboembolism. Risks are likely devin even higher in more complex genotype combinations involving theF2 c.*97G>A variant and Factor V Leiden (PMID: 97123790). Additionalrisk factors include but are not limited [...] for health care providers to discussresults at [phone] ([phone]).Test Details:Variant analyzed: c.*97G>A, previously referred to as [id number]/Limitations:DNA analysis of the F2 gene (NM_000506.5) was [...] was developed and its performance characteristics determinedby [facility]. It has not been cleared or approved by the Food and DrugAdministration.References:Radha Helton, Gloria PENN, Tushar R, Jean WW, Alejandro JH; [employer] ProfessionalPractice and Guidelines Committee. Addendum: [employer] College of[employer] Genetics consensus statement on factor V Leiden mutationtesting. Lindsey Med. 2020Oct 05. doi: 10.1038/[id number]-x.PMID: 89626677.Mitch GUERRERO. Prothrombin Thrombophilia. 2005Feb 24[Updated 2020Sep 06]. In: Riaz MP, Robb HH, Todd RA, et al.,editors. Elizabeth(R) [Internet]. [place]): [facility]; 3638-9240. Available from:https://www.ncbi.nlm.nih.gov/books/GLO2724/Darek Helton, Gloria PENN, Daryl X, Vishnu B, Lia EB, Kell P, Michele CS;ACMG Laboratory Manager Utilities Committee. Venous thromboembolismlaboratory testing (factor V Leiden and factor II c.*97G>A),2018 update: a technical standard of the [employer] College of MedicalGenetics and Genomics (ACMG). Lindsey Med. 2017;20(12):6654-8979.doi: 10.1038/[id number]-j. Ep2017May 07. PMID: 48014605. CNOVon 03-13-2025 CNOV Office Visit (FAMPWS ) -- WANDA REYNA ([id number]) 1980 F Date Time Provider Department 03/13/25 2:40 PM [facility] visit today, we recorded the [...] on 11/16/[address] chest at [facility] for her dyspnea symptoms- this testing was normal appearing on review She also had ECHOCARDIOGRAM at [facility] for her dyspnea symptoms- this testing was [...] or occlusion- performed by Dr. Barone at [facility]. Hasn't had any procedure yet to fix [...] FORCEPS R (more content not included)... Normal [facility] CRPon 03-13-2025 C-REACTIVE PROT < 3.00 Normal 0.0-3.0 [facility] Comment on above: Performed By: #### L 100.0100, L501.6710, L506.1001, L500.4050, L506.0400, L501.9520, L503.6030, L503.0106 #### [facility] [address] [place], [address] Dilute Kye's viper venom timeOrdered By: Hilton Doty on 03-13-2025 dRVVT Coag (PPP) [Time] 38.0 s 0.0-47.0 [facility] Erythrocyte Sed Rateon 03-13 SED RATE 6 mm/hr Normal 0-30 [facility] Comment on above: Performed By: #### L 100.0100, L501.6710, L506.1001, L500.4050, L506.0400, L501.9520, L503.6030, L503.0106 #### [facility] [address] [place], [address] Erythrocyte sedimentation ra teOrdered By: Hilton Doty on 03-13-2025 ESR (Bld) [Velocity] 6 mm/h 0-30 [facility] Functional protein C measure mentOrdered By: Hilton Doty on 03-13-2025 Protein C actual/normal Chromogenic method (PPP) [Rel catalytic activity/Vol] 96 % 73-180 [facility] Interpretation of screening 2-component lupus anticoagulant panel in platelet poor plOrdered By: Hilton Doty on 03-13-2025 Lupus anticoagulant two screening tests W Reflex Coag (PPP) [Interp] Comment: . [facility] Comment on above: No lupus anticoagula nt was detected. No Panel InformationOrdered By: Hilton Doty on 03-13-2025 Factor II DNA Analysis Comment Comment . [facility] Comment on above: Technical Component performed at [facility] RTPProfessional Component performed by:Tremaine Carpenter, PhD, [id number], [facility], [address]: online travellers [facility]CUR[facility]HE[facility] [address]Hgmukzpqk at: [facility] [employer] [id number] Director: Gabe Fry PhD, Phone: [phone] at: [facility] [employer] [address] [id number] Director: Man Dykes MD, Phone: [phone] at: [facility] [employer] [id number], [place], [place] [id number] Director: Jhonny Robles [facility], Phone: [phone] Plasminogen activity plasOrd ered By: Hilton Doty on 03-13-2025 Plasminogen actual/normal Chromogenic method (PPP) [Rel catalytic activity/Vol] 115 % 70-150 [facility] Platelet poor plasma antithr ombin actual/normal ratio by chromogenic method (relativeOrdered By: Hilton Doty on 03-13-2025 Antithrombin actual/normal Chromogenic method (PPP) [Rel catalytic activity/Vol] 114 % 75-135 [facility] Comment on above: Direct Xa inhibitor anticoagulants such as rivaroxaban,apixaban and edoxaban will lead to spuriously elevatedantithrombin activity levels possibly masking a deficiency. Protein S, freeOrdered By: Rachel Doty on 03-13-2025 Protein S Free Ag IA Qn (PPP) 94 % 61-136 [facility] Serum beta 2 glycoprotein 1 IgA antibody detectionOrdered By: Hilton Doty on 03-13-2025 Beta 2 glycoprotein 1 IgA Ql (S) Not Reportable [facility] Serum beta 2 glycoprotein 1 IgG antibody detectionOrdered By: Hilton Doty on 03-13-2025 Beta 2 glycoprotein 1 IgG Ql (S) <9 0-20 [facility] Comment on above: Result Units: GPI Ig [...] glycoprotein 1 IgM Ql (S) <9 0-32 [facility] Comment on above: Result Units: GPI Ig [...] Qn (S) < 9 GPL U/mL 0-14 [facility] Comment on above: Negative: <15 Indete rminate: 15 - 20 Low-Med Positive: >20 - 80 High Positive: >80 Serum or plasma C reactive p rotein measurement (mass/volume)Ordered By: Hilton Doty on 03-13-2025 CRP [Mass/Vol] mg/L 0.0-3.0 [facility] Serum or plasma homocysteine measurement (mass/volume)Ordered By: Hilton Doty on 03-13-2025 Homocysteine [Mass/Vol] 6.9 umol/L 0.0-14.5 [facility] CNPNon 02-06-2025 CNPN Telephone ([facility]) -- WANDA REYNA ([id number]) 1980 F Date Time Provider Department 02/06/25 HILTON DOTY During your visit today, we recorded the following information about you: Ngoc Ervin RN 02/06/2025 11:04 AM Signed Patient asking for provider to advise on her recent EMG results, when able. Pt had procedure completed at [facility]. See scanned documents 02/01/25. ELSIE Clemens Alyson Taylor, APRN.FEI 02/06/2025 12:26 PM Signed EMG was normal. No evidence of peripheral neuropathy or lumbosacral radiculopathy. Thank you, Lisa Doll, KJ.Huma Rodgers LPN 02/06/2025 1:58 PM Signed Spoke [...] Status:Closed by HUMA DA SILVA on 02/06/25 [facility] MR/BMS.BVSon 02-06-2025 MR/BMS.BVS [facility] Vascular Surgery [address] [place] [address] OFFICE VISIT Date of Service: 02/06/25 MR#: [id number] Acct: [id number] Name: WANDA REYNA Rep #: [id number] : 1980 Provider: Dr. 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 Normal [facility] NCS and/or EMG Patienton NCS and/or EMG Patient [facility] Pulmonary Services/Neurology [address] [place] [address] MR#: [id number] Acct: [id number] Name: WANDA REYNA Rep #: [id number] : 1980 44 From: Lupillo Quintero MD Referring Dr: Hilton Doty DO Status: REG CL I Location: PSN Date: 02/01/25 Sex: F C [...] Multi Select Codes Neurology Neurology Interp Codes: 12677-72 Musc test done w/n test comp (interp) and 89460-21 Nrv cndj tst 5-6 studies (interp) 02/01/25 1028 Date Lupillo Quintero MD CC: Dr. Lupillo Quintero MD; Dr. Hilton Doty, Date Dictated: 02/01/25 1026 Date Transcribed: 02/01/25 1026 Welder Fitter: [facility] Office Visit (FAMPWS ) -- REYNAANNEWANDA S ([id number]) 1980 F Date Time Provider Department 01/14/25 10:40 AM HILTON DOTY FAMPWS During your visit today, we recorded the following information about you: Temperature Pulse Respiration Blood pressure 97 degrees 80/minute 16/minute 120/60 Weight 85.7 kg Hilton Doty, 01/17/2025 7:46 AM Signed CC: Wanda Austin Reyna is a 44 year old female [...] on 11/16/[address] chest at [facility] for her dyspnea symptoms- this testing was normal appearing on review She also had ECHOCARDIOGRAM at [facility] for her dyspnea symptoms- this testing was [...] disease PAST SURGICAL HISTORY Procedure Laterality Date [facility] ([facility] AB [facility]) 2001 ESWL [...] by mout (more content not included)... Normal [facility] HIP, UNI W/ Pelvis 2-3 Views on 01-14-2025 HIP, UNI W/ Pelvis 2-3 Views [facility] Imaging Services [address] [place], [place] [address] HIP, UNI W/ Pelvis 2-3 Views MR#: [id number] Acct: [id number] Name: WANDA REYNA Rep #: [id number] : 1980 F 44 From: Kendrick Cowan MD PCP: Dr. Hilton Doty DO Status: REG CLI Study: HIP, UNI W/ Pelvis 2-3 Views Date of Exam: Exam# [id number] Ordering Dr: Hilton Doty DO PROCEDURE: HIP, [...] 2-3 Views IMPRESSION: Negative examination Reading [facility] CC: Dr. Hilton Doty DO Welder Fitter: Signed Normal [facility] Knee 1 or 2 Viewson 01-15-20 Knee 1 or 2 Views [facility] [address] [place], [place] [address] Knee 1 or 2 Views MR#: [id number] Acct: [id number] Name: WANDA REYNA Rep #: [id number] : 1980 F 44 From: Kendrick Cowan MD PCP: Dr. Hilton Doty DO Status: REG CLI Study: Knee 1 or 2 Views Date of Exam: 01/14/25 Exam# [id number] Ordering Dr: Hilton Doty DO PROCEDURE: KNEE [...] compartments. 2. No acute findings Reading [facility] CC: Dr. Hilton Doty DO Welder Fitter: Signed Normal [facility] Knee 4 or More Viewson 01-14 Knee 4 or More Views [facility] Imaging Services [address] [place], [place] [id number] Knee 4 or More Views MR#: [id number] Acct: [id number] Name: WANDA REYNA Rep #: [id number] : 1980 F 44 From: Kendrick Cowan MD PCP: Dr. Hilton Doty DO Status: REG CLI Study: Knee 4 or More Views Date of Exam: 01/14/25 Exam# [id number] Ordering Dr: Hilton Doty DO PROCEDURE: KNEE [...] compartment. 2. No acute findings. Reading Location: [facility] CC: Dr. Hilton Doty DO Welder Fitter: Signed Normal [facility] Lumbar Spine 2 or 3 Viewson 01-14-2025 Lumbar Spine 2 or 3 Views [facility] Imaging Services [address] [place], [place] [id number] Lumbar Spine 2 or 3 Views MR#: [id number] Acct: [id number] Name: WANDA REYNA Rep #: [id number] : 1980 F 44 From: Kendrick Cowan MD PCP: Dr. Hilton Doty DO Status: REG CLI Study: Lumbar Spine 2 or 3 Views Date of Exam: Exam# [id number] Ordering Dr: Hilton Doty DO PROCEDURE: LUMBAR [...] No significant lumbar abnormality seen. Reading [facility] CC: Dr. Hilton Doty DO Welder Fitter: Signed Normal [facility] MR/BMS.BVSon 01-13-2025 MR/BMS.BVS [facility] Vascular Surgery 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 Normal [facility] Anion gap in Serum or Plasma Ordered By: Laura Rai on 01-12-2025 Anion gap [Moles/Vol] 10 mmol/L -15 [facility] BUN/creatinine ratioOrdered By: Laura Rai on 01-12-2025 Urea nitrogen/Creatinine [Mass ratio] 13.9 mg/mg 10-20 [facility] Basic Metabolic Profile (BMP )on 01-12-2025 BUN/CRE 13.9 RATIO Normal -20 [facility] Comment on above: Performed By: #### L 100.0500, L500.2500 ####[facility] [address] [place], [address] Calcium [Mass/Vol] 9.6 mg/dL Normal 7.6-11.0 [facility] Comment on above: Performed By: #### L 100.0500, L500.2500 ####[facility] [address] [place], [address] Chloride [Moles/Vol] 104 mmol/L Normal 98-108 [facility] Comment on above: Performed By: #### L 100.0500, L500.2500 ####[facility] [address] [place], [address] CO2 [Moles/Vol] 26.0 mmol/L Normal 21.0-32.0 [facility] Comment on above: Performed By: #### L 100.0500, L500.2500 ####[facility] [address] [place], [address] Creatinine [Mass/Vol] 0.85 mg/dL Normal 0.70-1.20 [facility] Comment on above: Performed By: #### L 100.0500, L500.2500 ####[facility] [address] [place], [address] GAP 10 Normal 5-15 [facility] Comment on above: Performed By: #### L 100.0500, L500.2500 ####[facility] [address] [place], [address] GFR/1.73 sq M.predicted among non-blacks MDRD (S/P/Bld) [Vol rate/Area] 87 mL/min/{1.73_m2} Normal >60 [facility] Comment on above: Result Comment: mL/m in/1.73m2 CKD-EPI Creatinine Equation (2020) Performed By: #### L 100.0500, L500.2500 ####[facility] [address] [place], [address] Glucose [Mass/Vol] 87 mg/dL Normal 70-99 [facility] Comment on above: Performed By: #### L 100.0500, L500.2500 ####[facility] [address] [place], [address] Potassium [Moles/Vol] 4.4 mmol/L Normal 3.3-5.1 [facility] Comment on above: Performed By: #### L 100.0500, L500.2500 ####[facility] [address] [place], [address] Sodium [Moles/Vol] 140 mmol/L Normal 133-145 [facility] Comment on above: Performed By: #### L 100.0500, L500.2500 ####[facility] [address] [place], [address] Urea nitrogen [Mass/Vol] 12 mg/dL Normal 4-19 [facility] Comment on above: Performed By: #### L 100.0500, L500.2500 ####[facility] [address] [place], [address] CBC-Complete Blood Cnt No Di ffon 01-12-2025 Erythrocyte distribution width (RBC) [Ratio] 13.3 % Normal 11.6-14.6 [facility] Comment on above: Performed By: #### L 100.0500, L500.2500 ####[facility] [address] [place], [address] Hematocrit (Bld) [Volume fraction] 39.6 % Normal 37-47 [facility] Comment on above: Performed By: #### L 100.0500, L500.2500 ####[facility] [address] [place], [address] Hemoglobin (Bld) [Mass/Vol] 13.2 g/dL Normal 12.0-15.0 [facility] Comment on above: Performed By: #### L 100.0500, L500.2500 ####[facility] [address] [place], [address] MCH (RBC) [Entitic mass] 31.0 pg Normal 27.0-32.0 [facility] Comment on above: Performed By: #### L 100.0500, L500.2500 ####[facility] [address] [place], [address] MCHC (RBC) [Mass/Vol] 33.3 g/dL Normal 32-36 [facility] Comment on above: Performed By: #### L 100.0500, L500.2500 ####[facility] [address] [place], [address] MCV (RBC) [Entitic vol] 93.0 fL Normal 81-99 [facility] Comment on above: Performed By: #### L 100.0500, L500.2500 ####[facility] [address] [place], [address] Platelet mean volume (Bld) [Entitic vol] 10.4 fL Normal 6.2-12.0 [facility] Comment on above: Performed By: #### L 100.0500, L500.2500 ####[facility] [address] [place], [address] Platelets (Bld) [#/Vol] 223 10*3/uL Normal 150-450 [facility] Comment on above: Performed By: #### L 100.0500, L500.2500 ####[facility] [address] [place], [address] RBC (Bld) [#/Vol] 4.26 10*6/uL Normal 4.2-5.4 [facility] Comment on above: Performed By: #### L 100.0500, L500.2500 ####[facility] [address] [place], [address] RDW SD 45.6 fl High 35.1-43.9 [facility] Comment on above: Performed By: #### L 100.0500, L500.2500 ####[facility] [address] [place], [address] WBC (Bld) [#/Vol] 5.6 10*3/uL Normal 4.4-11.0 [facility] Comment on above: Performed By: #### L 100.0500, L500.2500 ####[facility] [address] [place], [address] Carbon dioxide, total [Moles /volume] in Central venous bloodOrdered By: Laura Rai on 01-12-2025 CO2 [Moles/Vol] 26.0 mmol/L 21.0-32.0 [facility] Chloride assayOrdered By: Saul Rai on 01-12-2025 Chloride [Moles/Vol] 104 mmol/L 98-108 [facility] Erythrocyte distribution wid th ratioOrdered By: Laura Rai on 01-12-2025 Erythrocyte distribution width (RBC) [Ratio] 13.3 % 11.6-14.6 [facility] Erythrocyte distribution wid th standard deviationOrdered By: Laura Rai on 01-12-2025 Erythrocyte distribution width (RBC) [Ratio] 45.6 fl High 35.1-43.9 [facility] Glomerular filtration rate ( GFR) estimation/1.73 sq m using serum, plasma, or whole bOrdered By: Laura Rai on 01-12-2025 GFR/1.73 sq M.predicted among non-blacks MDRD (S/P/Bld) [Vol rate/Area] 87 mL/min/{1.73_m2} >60 [facility] Comment on above: mL/min/1.73m2 CKD-EP I Creatinine Equation (2020) Hematocrit Auto (Bld) [Volum e fraction]Ordered By: Laura Rai on 01-12-2025 Hematocrit (Bld) [Volume fraction] 39.6 % 37-47 [facility] Hemoglobin measurementOrdere d By: Laura Rai on 01-12-2025 Hemoglobin (Bld) [Mass/Vol] 13.2 g/dL 12.0-15.0 [facility] MCV (mean corpuscular volume ) determinationOrdered By: Laura Rai on 01-12-2025 MCV (RBC) [Entitic vol] 93.0 fL 81-99 [facility] Mean corpuscular hemoglobin (MCH) determinationOrdered By: Laura Rai on 01-12-2025 MCH (RBC) [Entitic mass] 31.0 pg 27.0-32.0 [facility] Mean corpuscular hemoglobin concentration (MCHC) determinationOrdered By: Laura Rai on 01-12-2025 MCHC (RBC) [Mass/Vol] 33.3 g/dL 32-36 [facility] Mean platelet volume determi nationOrdered By: Laura Rai on 01-12-2025 Platelet mean volume (Bld) [Entitic vol] 10.4 fL 6.2-12.0 [facility] Platelet countOrdered By: Saul Rai on 01-12-2025 Platelets (Bld) [#/Vol] 223 10*3/uL 150-450 [facility] Potassium measurement (mass/ volume)Ordered By: Laura Rai on 01-12-2025 Potassium (Unsp spec) [Mass/Vol] 4.4 mmol/L 3.3-5.1 [facility] RBC Auto (Bld) [#/Vol]Ordere d By: Laura Rai on 01-12-2025 RBC (Bld) [#/Vol] 4.26 10*6/uL 4.2-5.4 [facility] Serum creatinine measurement (mass/volume)Ordered By: Laura Rai on 01-12-2025 Creatinine [Mass/Vol] 0.85 mg/dL 0.70-1.20 [facility] Serum glucose measurement (m ass/volume)Ordered By: Laura Rai on 01-12-2025 Glucose [Mass/Vol] 87 mg/dL 70-99 [facility] Serum or plasma calcium willie urement (mass/volume)Ordered By: Laura Rai on 01-12-2025 Calcium [Mass/Vol] 9.6 mg/dL 7.6-11.0 [facility] Serum or plasma urea nitroge n measurement (mass/volume)Ordered By: Laura Rai on 01-12-2025 Urea nitrogen [Mass/Vol] 12 mg/dL 4-19 [facility] Sodium levelOrdered By: Jose Ramon Rai on 01-12-2025 Sodium [Moles/Vol] 140 mmol/L 133-145 [facility] White blood cell (WBC) count Ordered By: Laura Rai on 01-12-2025 WBC (Bld) [#/Vol] 5.6 10*3/uL 4.4-11.0 [facility] Anion gap in Serum or Plasma Ordered By: Derek Barone on 01-10-2025 Anion gap [Moles/Vol] 9 mmol/L - [facility] BUN/creatinine ratioOrdered By: Derek Barone on 01-10-2025 Urea nitrogen/Creatinine [Mass ratio] 10.2 mg/mg 05-22 [facility] Basic Metabolic Profile (BMP )on 01-10-2025 BUN/CRE 10.2 RATIO Normal 05-22 [facility] Comment on above: Performed By: #### L 100.0100, L501.6710, L506.1001, L500.4050, L506.0400, L501.9520, L503.6030, L503.0106 #### [facility] [address] [place], [place], [id number] Calcium [Mass/Vol] 9.3 mg/dL Normal 7.6-11.0 [facility] Comment on above: Performed By: #### L 100.0100, L501.6710, L506.1001, L500.4050, L506.0400, L501.9520, L503.6030, L503.0106 #### [facility] [address] [place], [address] Chloride [Moles/Vol] 105 mmol/L Normal 98-108 [facility] Comment on above: Performed By: #### L 100.0100, L501.6710, L506.1001, L500.4050, L506.0400, L501.9520, L503.6030, L503.0106 #### [facility] [address] [place], [address] CO2 [Moles/Vol] 25.1 mmol/L Normal 21.0-32.0 [facility] Comment on above: Performed By: #### L 100.0100, L501.6710, L506.1001, L500.4050, L506.0400, L501.9520, L503.6030, L503.0106 #### [facility] [address] [place], [address] Creatinine [Mass/Vol] 0.90 mg/dL Normal 0.70-1.20 [facility] Comment on above: Performed By: #### L 100.0100, L501.6710, L506.1001, L500.4050, L506.0400, L501.9520, L503.6030, L503.0106 #### [facility] [address] [place], [address] ECRCL 88.22 ml/min Normal 50-250 [facility] Comment on above: Performed By: #### L 100.0100, L501.6710, L506.1001, L500.4050, L506.0400, L501.9520, L503.6030, L503.0106 #### [facility] [address] [place], [address] GAP 9 Normal 5-15 [facility] Comment on above: Performed By: #### L 100.0100, L501.6710, L506.1001, L500.4050, L506.0400, L501.9520, L503.6030, L503.0106 #### [facility] [address] [place], [address] GFR/1.73 sq M.predicted among non-blacks MDRD (S/P/Bld) [Vol rate/Area] 81 mL/min/{1.73_m2} Normal >60 [facility] Comment on above: Result Comment: mL/m in/1.73m2 CKD-EPI Creatinine Equation (2020) Performed By: #### L 100.0100, L501.6710, L506.1001, L500.4050, L506.0400, L501.9520, L503.6030, L503.0106 #### [facility] [address] [place], [address] Glucose [Mass/Vol] 103 mg/dL High 70-99 [facility] Comment on above: Performed By: #### L 100.0100, L501.6710, L506.1001, L500.4050, L506.0400, L501.9520, L503.6030, L503.0106 #### [facility] [address] [place], [address] Potassium [Moles/Vol] 4.2 mmol/L Normal 3.3-5.1 [facility] Comment on above: Performed By: #### L 100.0100, L501.6710, L506.1001, L500.4050, L506.0400, L501.9520, L503.6030, L503.0106 #### [facility] [address] [place], [address] Sodium [Moles/Vol] 139 mmol/L Normal 133-145 [facility] Comment on above: Performed By: #### L 100.0100, L501.6710, L506.1001, L500.4050, L506.0400, L501.9520, L503.6030, L503.0106 #### [facility] [address] [place], [address] Urea nitrogen [Mass/Vol] 9 mg/dL Normal 4-19 [facility] Comment on above: Performed By: #### L 100.0100, L501.6710, L506.1001, L500.4050, L506.0400, L501.9520, L503.6030, L503.0106 #### [facility] [address] [place], [address] Carbon dioxide, total [Moles /volume] in Central venous bloodOrdered By: Derek Barone on 01-10-2025 CO2 [Moles/Vol] 25.1 mmol/L 21.0-32.0 [facility] Chloride assayOrdered By: Thien Barone on 01-10-2025 Chloride [Moles/Vol] 105 mmol/L 98-108 [facility] Glomerular filtration rate ( GFR) estimation/1.73 sq m using serum, plasma, or whole bOrdered By: Derek Baorne on 01-10-2025 GFR/1.73 sq M.predicted among non-blacks MDRD (S/P/Bld) [Vol rate/Area] 81 mL/min/{1.73_m2} >60 [facility] Comment on above: mL/min/1.73m2 CKD-EP I Creatinine Equation (2020) Operative Reporton Operative Report [facility] Medical Records Department [address] [place] [address] Operative Report 01/10/25 1210 MR#: [id number] Acct: [id number] Name: WANDA REYNA Rep #: [id number] : 1980 44 From: Derek Barone MD PCP: Dr. Hilton Doty, DO Status:REG [facility] Location: [facility] Operative Report (Standard) Operative Information Date of Procedure: 01/10/25 Pre-Operative Diagnosis: Venous insufficiency and varicose veins with pain bilateral lower extremities Post-Operative Diagnosis: Same Surgery/Procedure Performed: IVC venogram Intravascular ultrasound inferior vena cava, bilateral common iliac veins, bilateral external iliac veins product strategy director: No Type of Anesthesia: Local and Sedation,Conscious [...] site the patient was taken to the Rubber Flap Cutter where she was positioned prepped and draped [...] collaterals visualized. Through the micropuncture sheath a [employer] wire was advanced the micropuncture sheath exchanged for a short 8 Pakistani sheath. Next skin overlying the right common [...] micropuncture sheath exchanged for a short 8 Pakistani sheath. Next an intravascular ultrasound probe was [...] MD; Dr. Hilton Doty DO Signed Normal [facility] Potassium measurement (mass/ volume)Ordered By: Derek Barone on 01-10-2025 Potassium (Unsp spec) [Mass/Vol] 4.2 mmol/L 3.3-5.1 [facility] Serum creatinine measurement (mass/volume)Ordered By: Derek Barone on 01-10-2025 Creatinine [Mass/Vol] 0.90 mg/dL 0.70-1.20 [facility] Serum glucose measurement (m ass/volume)Ordered By: Derek Barone on 01-10-2025 Glucose [Mass/Vol] 103 mg/dL High 70-99 [facility] Serum human chorionic gonado tropin detection for pregnancyOrdered By: Derek Barone on 01-10-2025 HCG ( test) Ql < 1 mIU/mL <9 [facility] Comment on above: Gestational Age0.2-1 Week: 5-50 mIU/mL1-2 Weeks: 50-500 mIU/mL2-3 Weeks: 100-5000 mIU/mL3-4 Weeks: 500-10,000 mIU/mL4-5 Weeks:1000-50,000 mIU/mL5-6 Weeks: 10,000-100,000 mIU/mL6-8 Weeks: 15,000-200,000 mIU/mL2-3 Months:10,000-100,000 mIU/mL Serum or plasma calcium willie urement (mass/volume)Ordered By: Derek Barone on 01-10-2025 Calcium [Mass/Vol] 9.3 mg/dL 7.6-11.0 [facility] Serum or plasma urea nitroge n measurement (mass/volume)Ordered By: Derek Barone on 01-10-2025 Urea nitrogen [Mass/Vol] 9 mg/dL 4-19 [facility] Sodium levelOrdered By: Derek Barone on 01-10-2025 Sodium [Moles/Vol] 139 mmol/L 133-145 [facility] hCG Titer Quant., Serumon HCG QUANT. < 1 Normal <9 non-preg [facility] Comment on above: Result Comment: Gest ational Age 0.2-1 Week: 5-50 mIU/mL 1-2 Weeks: 50-500 mIU/mL 2-3 Weeks: 100-5000 mIU/mL 3-4 Weeks: 500-10,000 mIU/mL 4-5 Weeks:1000-50,000 mIU/mL 5-6 Weeks: 10,000-100,000 mIU/mL 6-8 Weeks: 15,000-200,000 mIU/mL 2-3 Months:10,000-100,000 mIU/mL Performed By: #### L 100.0100, L501.6710, L506.1001, L500.4050, L506.0400, L501.9520, L503.6030, L503.0106 #### [facility] [address] [place], [address] [facility] 12-30-2024 [facility] Telephone (FAMWS) -- WANDA REYNA ([id number]) 1980 F Date Time Provider Department 12/30/24 HILTON DOTY [facility] During your visit today, we recorded [...] Signed Patent states that Dr. Doty could qa reviewer's notes from [facility], if she is able. [place] vascular providers are Laura Rai and Dr. [...] prior to her cath procedure scheduled at [facility] tomorrow on 01/10/25 to put dye and [...] of vinnie (more content not included)... Normal [facility] Venous Duplex US, Unilateral on 12-30-2024 Venous Duplex US, Unilateral [facility] Cardiovascular Services [address] [place] [address] Venous Duplex US, Unilateral 12/30/24 1456 MR#: [id number] Acct: [id number] Name: WANDA REYNA Rep #: [id number] : 1980 44 From: Derek Barone MD [...] Physician: Laura Rai Performed By: Hyacinth Talbot, SINCERE 01/05/25945 Date Derek Barone MD CC: JAYE Montero; Dr. Hilton Doty DO Date Dictated: 12/30/246 Date Transcribed: 01/05/25945 Welder Fitter: Signed [facility] MR/BMS.Son 12-19-2024 /BMS.S [facility] Vascular Surgery [address] [place] [address] OFFICE VISIT Date of Service: 12/19/24 MR#: [id number] Acct: [id number] Name: WANDA REYNA Rep #: [id number] : 1980 Provider: Dr. 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 We had initially [...] abnormal h (more content not included)... Normal [facility] PAP IG HPV APTIMA 16/18,45on 12-14-2024 ADEQ Comment Normal . [facility] Comment on above: Order Comment: Speci men Comment: [id number] Comment: No. of containers..01 ThinPrep Vial Result Comment: Sati sfactory for evaluation. Endocervical and/or squamous metaplastic cells (endocervical component) are present. Performed By: #### L 100.0100, L501.6710, L506.1001, L500.4050, L506.0400, L501.9520, L503.6030, L503.0106 #### [facility] [address] [place], [place], [id number] COMM . Normal . [facility] Comment on above: Order Comment: Maddie men Comment: [id number] Comment: No. of containers..01 ThinPrep Vial Performed By: #### L 100.0100, L501.6710, L506.1001, L500.4050, L506.0400, L501.9520, L503.6030, L503.0106 #### [facility] [address] [place], [address] COMMENT Comment Normal . [facility] Comment on above: Order Comment: Maddie men Comment: [id number] Comment: No. of containers..01 ThinPrep Vial Result Comment: This liquid based ThinPrep(R) pap test was screened with the use of an image guided system. Performed By: #### L 100.0100, L501.6710, L506.1001, L500.4050, L506.0400, L501.9520, L503.6030, L503.0106 #### [facility] [address] [place], [place], [id number] DIAG Comment Normal . [facility] Comment on above: Order Comment: Jose Li men Comment: [id number] Comment: No. of containers..01 ThinPrep Vial Result Comment: NEGA TIVE FOR INTRAEPITHELIAL LESION OR MALIGNANCY. Performed By: #### L 100.0100, L501.6710, L506.1001, L500.4050, L506.0400, L501.9520, L503.6030, L503.0106 #### [facility] [address] [place], [place], [phone] (224) HPV APTIMA, HR Negative Normal Negative [facility] Comment on above: Order Comment: Speci men Comment: [id number] Comment: No. of containers..01 ThinPrep Vial Result Comment: This nucleic acid amplification test detects fourteen high- risk HPV types (16,18,31,33,35,39,45,51,52,56,58,59,66,68) without differentiation. Performed By: #### L 100.0100, L501.6710, L506.1001, L500.4050, L506.0400, L501.9520, L503.6030, L503.0106 #### [facility] [address] [place], [place], [phone] (091) HPV Kaylie Rfx Comment Normal . [facility] Comment on above: Order Comment: Speci men Comment: [id number] Comment: No. of containers..01 ThinPrep Vial Result Comment: Crit erjah not met, HPV Genotype not performed. Performed at: - [facility] [id number] Resident Assistant: Viktoriya Vargas MD, Phone: [phone] Performed at: = - [facility] [address] [id number] Resident Assistant: Viktoriya Vargas MD, Phone: [phone] Performed By: #### L 100.0100, L501.6710, L506.1001, L500.4050, L506.0400, L501.9520, L503.6030, L503.0106 #### [facility] [address] [place], [place], [phone] (820) PAPSMR Comment Normal . [facility] Comment on above: Order Comment: Speci men Comment: [id number] Comment: No. of containers..01 ThinPrep Vial Result [...] L506.1001, L500.4050, L506.0400, L501.9520, L503.6030, L503.0106 #### [facility] [address] [place], [address] PERFORM Comment Normal . [facility] Comment on above: Order Comment: Speci men Comment: [id number] Comment: No. of containers..01 ThinPrep Vial Result Comment: Fauzia Henley, Hatchery Attendant (ASCP) Performed By: #### L 100.0100, L501.6710, L506.1001, L500.4050, L506.0400, L501.9520, L503.6030, L503.0106 #### [facility] [address] [place], [address] Cervical or vaginal specimen microscopic examination by liquid based cytology (reportOrdered By: Priscilla Nieto on 12-12-2024 Cytology report Cyto stain.thin prep Doc (Cvx/Vag) Comment . [facility] Comment on above: Criteria not met, HP V Genotype not performed.Performed at: - [address] [id number] Director: Viktoriya Vargas MD, Phone: [phone] at: =[facility] [id number] Director: Viktoriya Vargas MD, Phone: [phone] Cervical or vagninal specime n microscopic examination by cytology stain (reported asOrdered By: Priscilla Nieto on 12-12-2024 Cytology report Cyto stain Doc (Cvx/Vag) Comment . [facility] Comment on above: The Pap smear is [...] DNA Probe+sig amp Ql (Cvx) Negative Negative [facility] Comment on above: This nucleic acid am plification test detects fourteen high- risk HPV types (16,18,31,33,35,39,45,51,52,56,58,59,66,68)without differentiation. Laboratory - CytologyOrdered By: Priscilla Nieto on 12-12-2024 Hatchery Attendant Cyto stain Nom (Cvx/Vag) [ID] Comment . [facility] Comment on above: Guillermina Henley Cytol ángela (ASCP) Laboratory - Miscellaneous t estsOrdered By: Priscilla Nieto on 12-12-2024 Service comment (Unsp spec) [Interp] . . [facility] No Panel InformationOrdered By: Priscilla Nieto on 12-12-2024 Pap Smear Specimen Adequacy Comment . [facility] Comment on above: Satisfactory for jarvis luation. Endocervical and/or squamous metaplasticcells (endocervical component) are present. Seo Assistant Office Visit Reporton 12-12-2024 Seo Assistant Office Visit Report [facility] [address], [address] [place] [address] OFFICE VISIT Date of Service: 12/12/24 MR#: [id number] Acct: [id number] Name: WANDA REYNA Rep #: [id number] : 1980 Provider: Dr. 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) Tobacco Sampler Required: No Is patient in pain?: No Allergies Penicillins (PCN) Allergy (Severe, Verified 12/12/24 09:30) Anaphylaxis Medications ???Medication ???Instructions ???Recorded ???Confirmed ???Type lorazepam 0.5 mg tablet 0.5 mg PO DAILY PRN PRN Anxiety 12/12/24 History cholecalciferol (vitamin D3) 125 125 mcg PO DAILY 09/24/23 12/12/24 History mcg (5,000 unit) capsule phentermine 11.25 mg-topiramate ER 1 cap PO DAILY 09/24/23 12/12/24 History 69 mg capsule,ext.wjdifiw07rz mphas (Qsymia) hydroxychloroquine 200 mg tablet 300 [...] History current occupational status: employed 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 Normal [facility] 11-17-2024 [facility] Telephone (INTMWS) -- WANDA REYNA ([id number]) 1980 F Date Time Provider Department 11/17/24 HILTON DOTY INTWS During your visit today, we recorded the following information about you: Catina Austin LPN 11/17/2024 2:16 PM Signed [employer] PA rec'd and completed for phentermine topiramateER. This was denied per pts insurance. Note from payer: Request Reference Number: [id number]. QSYMIA CAP 11 is denied due to Plan Exclusion. For [...] Pharmacy Benefits Open Encounter WANDA REYNA - [facility] (OPTUM_IRX) Covered: Retail, Mail Order Unknown: Specialty, Long-Term Care BIN: [id number] : 1980 Group ID: [id number] PCN: [id number] Legal sex: F Group name: Address: [address] [place] [address] Medication Being Authorized phentermine-topiramate ER (QSYMIA) 11.25-69 mg 24 Hr Capsule Take 1 capsule by mouth once daily for 90 days. BMI 31.32 Dispense: 90 capsule Refills: 1 Start: 11/17/2024 End: 02/15/2025 Class: Normal Diagnoses: Obesity, Class I, BMI 30-34.9; Inflammatory polyarthropathy (HCC); Dyslipidemia This order has been released to its destination. To be filled at: [place] [address] [address] [place] [address] Allergies As of Date: 11/17/2024 Noted Allergy Reaction PENICILLINS 08/30/2013 16 - Unknown Date Reviewed: 11/16/2024 Reviewed by: Hilton Doty DO - Fully Assessed Reason for Visit: Insurance Authorization [[id number]] Prescriptions as of 11/17/2024 - phentermine-topiramate ER [...] Encounter Status:Closed by CATINA AUSTIN on 11/17/24 [facility] CNOVon 11-16-2024 CNOV Office Visit (FAMPWS ) -- WANDA REYNA ([id number]) 1980 F Date Time Provider Department 11/16/24 7:00 PM [facility] your visit today, we recorded the following information about you: Pulse Respiration Blood pressure Weight 60/minute 12/minute 127/89 86.4 kg Hilton Doty DO 11/16/2024 7:58 PM Addendum Magnesium glycinate 500-800 mg in the evening Powder or pill Hilton Doty, 11/17/2024 12:27 PM Signed CC: Wanda Reyna [...] SE Currently She had CT chest at [facility] for her dyspnea symptoms- this testing was normal appearing on review She also had ECHOCARDIOGRAM at [facility] for her dyspnea symptoms- this testing was [...] disease PAST SURGICAL HISTORY Procedure Laterality Date [facility] (MISSED AB [facility]ST TRIMESTER) 2001 ESWL [...] LAD, no (more content not included)... [facility]IWS[facility] -- WANDA REYNA ([id number]) 1980 F Date Time Provider Department 11/11/24 HILTON DOTY PODIWS During your visit today, we recorded the following information about you: Ariana Schwarz MA 11/11/2024 10:40 AM Signed Pt completed CT Chest at [facility]. Results have been scanned into [employer] for Provider to review. Please review under imaging tab. FRENCH Reeder Rebekah, APRN.AUTO GLASS WORKER 11/11/2024 1:[address] looks completely normal, no concerns. Anna Sheikh APRN.AUTO GLASS WORKER PoliLois valdesFRENCH 11/11/2024 1:17 PM Signed Pt informed via [employer] message Lois FRENCH Rod Allergies As of Date: 11/11/2024 Noted Allergy [...] Status:Closed by LOIS ROD on 11/11/24 Normal [facility] Absolute lymphocyte countOrd ered By: Hilton Doty on 11-10-2024 Lymphocytes Auto (Unsp spec) [#/Vol] 1.63 10*3/uL 0.83-4.51 [facility] Absolute neutrophil countOrd ered By: Hilton Doty on 11-10-2024 Neutrophils (Bld) [#/Vol] 3.5 10*3/uL 2.0-7.7 [facility] Anion gap in Serum or Plasma Ordered By: Hilton Doty on 11-10-2024 Anion gap [Moles/Vol] 11 mmol/L 5-15 [facility] Automated lymphocyte count a s percentage of total leukocytesOrdered By: Hilton Doty on 11-10-2024 Lymphocytes/100 WBC Auto (Unsp spec) 29.0 % - [facility] BUN/creatinine ratioOrdered By: Hilton Doty on 11-10-2024 Urea nitrogen/Creatinine [Mass ratio] 13.2 mg/mg 10- [facility] Basophil percentageOrdered B y: Hilton Doty on 11-10-2024 Basophils/100 WBC (Bld) 0.4 % 0- [facility] Bilirubin, totalOrdered By: Hilton Villatororison on 11-10-2024 Bilirubin [Mass/Vol] 0.52 mg/dL 0.00-1.30 [facility] CBC W/Diff, Automatedon 11-01 Absolute Lymph 1.63 X10 3/uL Normal 0.83-4.51 [facility] Comment on above: Performed By: #### L 100.0100, L501.6710, L506.1001, L500.4050, L506.0400, L501.9520, L503.6030, L503.0106 #### [facility] [address] [place], [address] Absolute Neut 3.5 X10 3/uL Normal 2.0-7.7 [facility] Comment on above: Performed By: #### L 100.0100, L501.6710, L506.1001, L500.4050, L506.0400, L501.9520, L503.6030, L503.0106 #### [facility] [address] [place], [address] Basophils/100 WBC (Bld) 0.4 % Normal 0-1 [facility] Comment on above: Performed By: #### L 100.0100, L501.6710, L506.1001, L500.4050, L506.0400, L501.9520, L503.6030, L503.0106 #### [facility] [address] [place], [address] Eosinophils/100 WBC (Bld) 1.6 % Normal 0-5 [facility] Comment on above: Performed By: #### L 100.0100, L501.6710, L506.1001, L500.4050, L506.0400, L501.9520, L503.6030, L503.0106 #### [facility] [address] [place], [address] Erythrocyte distribution width (RBC) [Ratio] 14.2 % Normal 11.6-14.6 [facility] Comment on above: Performed By: #### L 100.0100, L501.6710, L506.1001, L500.4050, L506.0400, L501.9520, L503.6030, L503.0106 #### [facility] [address] [place], [address] Hematocrit (Bld) [Volume fraction] 39.9 % Normal 37-47 [facility] Comment on above: Performed By: #### L 100.0100, L501.6710, L506.1001, L500.4050, L506.0400, L501.9520, L503.6030, L503.0106 #### [facility] [address] [place], [address] Hemoglobin (Bld) [Mass/Vol] 13.4 g/dL Normal 12.0-15.0 [facility] Comment on above: Performed By: #### L 100.0100, L501.6710, L506.1001, L500.4050, L506.0400, L501.9520, L503.6030, L503.0106 #### [facility] [address] [place], [address] IG% 0.200 Normal 0.0-0.9 [facility] Comment on above: Result Comment: IG% - Immature Granulocytes (promyelocytes, myelocytes and metamyelocytes) > 1% indicates that a LEFT SHIFT is Present. Performed By: #### L 100.0100, L501.6710, L506.1001, L500.4050, L506.0400, L501.9520, L503.6030, L503.0106 #### [facility] [address] [place], [address] Lymphocytes/100 WBC (Bld) 29.0 % Normal 19-41 [facility] Comment on above: Performed By: #### L 100.0100, L501.6710, L506.1001, L500.4050, L506.0400, L501.9520, L503.6030, L503.0106 #### [facility] [address], [address] MCH (RBC) [Entitic mass] 30.8 pg Normal 27.0-32.0 [facility] Comment on above: Performed By: #### L 100.0100, L501.6710, L506.1001, L500.4050, L506.0400, L501.9520, L503.6030, L503.0106 #### [facility] [address] [place], [address] MCHC (RBC) [Mass/Vol] 33.6 g/dL Normal 32-36 [facility] Comment on above: Performed By: #### L 100.0100, L501.6710, L506.1001, L500.4050, L506.0400, L501.9520, L503.6030, L503.0106 #### [facility] [address] [place], [address] MCV (RBC) [Entitic vol] 91.7 fL Normal 81-99 [facility] Comment on above: Performed By: #### L 100.0100, L501.6710, L506.1001, L500.4050, L506.0400, L501.9520, L503.6030, L503.0106 #### [facility] [address] [place], [address] Monocytes/100 WBC (Bld) 7.6 % Normal 0-10 [facility] Comment on above: Performed By: #### L 100.0100, L501.6710, L506.1001, L500.4050, L506.0400, L501.9520, L503.6030, L503.0106 #### [facility] [address] [place], [address] Neutrophils/100 WBC (Bld) 61.2 % Normal 47-70 [facility] Comment on above: Performed By: #### L 100.0100, L501.6710, L506.1001, L500.4050, L506.0400, L501.9520, L503.6030, L503.0106 #### [facility] [address] [place], [address] Nucleated RBC (Bld) [#/Vol] 0 10*3/uL Normal 0-5 [facility] Comment on above: Performed By: #### L 100.0100, L501.6710, L506.1001, L500.4050, L506.0400, L501.9520, L503.6030, L503.0106 #### [facility] [address] [place], [address] Platelet mean volume (Bld) [Entitic vol] 9.7 fL Normal 6.2-12.0 [facility] Comment on above: Performed By: #### L 100.0100, L501.6710, L506.1001, L500.4050, L506.0400, L501.9520, L503.6030, L503.0106 #### [facility] [address] [place], [address] Platelets (Bld) [#/Vol] 244 10*3/uL Normal 150-450 [facility] Comment on above: Performed By: #### L 100.0100, L501.6710, L506.1001, L500.4050, L506.0400, L501.9520, L503.6030, L503.0106 #### [facility] [address] [place], [address] RBC (Bld) [#/Vol] 4.35 10*6/uL Normal 4.2-5.4 [facility] Comment on above: Performed By: #### L 100.0100, L501.6710, L506.1001, L500.4050, L506.0400, L501.9520, L503.6030, L503.0106 #### [facility] [address] [place], [address] RDW SD 47.7 fl High 35.1-43.9 [facility] Comment on above: Performed By: #### L 100.0100, L501.6710, L506.1001, L500.4050, L506.0400, L501.9520, L503.6030, L503.0106 #### [facility] [address] [place], [address] WBC (Bld) [#/Vol] 5.6 10*3/uL Normal 4.4-11.0 [facility] Comment on above: Performed By: #### L 100.0100, L501.6710, L506.1001, L500.4050, L506.0400, L501.9520, L503.6030, L503.0106 #### [facility] [address] [place], [address] CRPon 11-10-2024 C-REACTIVE PROT < 3.00 Normal 0.0-3.0 [facility] Comment on above: Performed By: #### L 100.0100, L501.6710, L506.1001, L500.4050, L506.0400, L501.9520, L503.6030, L503.0106 #### [facility] [address] [place], [address] CRP [Mass/Vol]Ordered By: Melissa Doty on 11-10-2024 C-Reactive Protein Extended Range < 3.00 mg/L 0.0-3.0 [facility] Calculated total iron bindin g capacityOrdered By: Hilton Doty on 11-10-2024 Total Iron Binding Capacity 262 ug/dL 250-450 [facility] Carbon dioxide, total [Moles /volume] in Central venous bloodOrdered By: Hilton Doty on 11-10-2024 CO2 [Moles/Vol] 23.4 mmol/L 21.0-32.0 [facility] Chest without Contraston Chest without Contrast [facility] [address] [place] [address] Chest without Contrast MR#: [id number] Acct: [id number] Name: WANDA REYNA Rep #: [id number] : 1980 F 44 From: Leeanna Howard MD PCP: Dr. Hilton Doty DO Status: REG CLI Study: Chest without Contrast Date of Exam: 11/10/24 Exam# [id number] Ordering Dr: Hilton Doty DO PROCEDURE: CHEST [...] the chest. Status post cholecystectomy. Reading Location: [facility] CC: Dr. Hilton Doty, Welder Fitter: Signed Normal [facility] Chloride assayOrdered By: Melissa Doty on 11-10-2024 Chloride [Moles/Vol] 105 mmol/L 98-108 [facility] Comprehensive Metabolic Prof ilon 11-10-2024 Albumin [Mass/Vol] 4.1 g/dL Normal 3.5-5.0 [facility] Comment on above: Performed By: #### L 100.0100, L501.6710, L506.1001, L500.4050, L506.0400, L501.9520, L503.6030, L503.0106 #### [facility] [address] [place], [address] Albumin/Globulin [Mass ratio] 1.3 {ratio} Normal 0.9-2.4 [facility] Comment on above: Performed By: #### L 100.0100, L501.6710, L506.1001, L500.4050, L506.0400, L501.9520, L503.6030, L503.0106 #### [facility] [address] [place], [address] ALK PHOS 72 U/L Normal 35-104 [facility] Comment on above: Performed By: #### L 100.0100, L501.6710, L506.1001, L500.4050, L506.0400, L501.9520, L503.6030, L503.0106 #### [facility] [address] [place], [address] ALT [Catalytic activity/Vol] 23 U/L Normal <=34 [facility] Comment on above: Performed By: #### L 100.0100, L501.6710, L506.1001, L500.4050, L506.0400, L501.9520, L503.6030, L503.0106 #### [facility] [address] [place], [address] AST [Catalytic activity/Vol] 23 U/L Normal <=31 [facility] Comment on above: Performed By: #### L 100.0100, L501.6710, L506.1001, L500.4050, L506.0400, L501.9520, L503.6030, L503.0106 #### [facility] [address] [place], [address] Bilirubin [Mass/Vol] 0.52 mg/dL Normal 0.00-1.30 [facility] Comment on above: Performed By: #### L 100.0100, L501.6710, L506.1001, L500.4050, L506.0400, L501.9520, L503.6030, L503.0106 #### [facility] [address] [place], [address] BUN/CRE 13.2 RATIO Normal 10-20 [facility] Comment on above: Performed By: #### L 100.0100, L501.6710, L506.1001, L500.4050, L506.0400, L501.9520, L503.6030, L503.0106 #### [facility] [address] [place], [address] Calcium [Mass/Vol] 9.4 mg/dL Normal 7.6-11.0 [facility] Comment on above: Performed By: #### L 100.0100, L501.6710, L506.1001, L500.4050, L506.0400, L501.9520, L503.6030, L503.0106 #### [facility] [address] [place], [address] Chloride [Moles/Vol] 105 mmol/L Normal 98-108 [facility] Comment on above: Performed By: #### L 100.0100, L501.6710, L506.1001, L500.4050, L506.0400, L501.9520, L503.6030, L503.0106 #### [facility] [address] [place], [address] CO2 [Moles/Vol] 23.4 mmol/L Normal 21.0-32.0 [facility] Comment on above: Performed By: #### L 100.0100, L501.6710, L506.1001, L500.4050, L506.0400, L501.9520, L503.6030, L503.0106 #### [facility] [address] [place], [address] Creatinine [Mass/Vol] 0.92 mg/dL Normal 0.70-1.20 [facility] Comment on above: Performed By: #### L 100.0100, L501.6710, L506.1001, L500.4050, L506.0400, L501.9520, L503.6030, L503.0106 #### [facility] [address] [place], [address] GAP 11 Normal 5-15 [facility] Comment on above: Performed By: #### L 100.0100, L501.6710, L506.1001, L500.4050, L506.0400, L501.9520, L503.6030, L503.0106 #### [facility] [address] [place], [address] GFR/1.73 sq M.predicted among non-blacks MDRD (S/P/Bld) [Vol rate/Area] 79 mL/min/{1.73_m2} Normal >60 [facility] Comment on above: Result Comment: mL/m in/1.73m2 CKD-EPI Creatinine Equation (2020) Performed By: #### L 100.0100, L501.6710, L506.1001, L500.4050, L506.0400, L501.9520, L503.6030, L503.0106 #### [facility] [address] [place], [address] Globulin (S) [Mass/Vol] 3.1 g/dL Normal 2.2-4.2 [facility] Comment on above: Performed By: #### L 100.0100, L501.6710, L506.1001, L500.4050, L506.0400, L501.9520, L503.6030, L503.0106 #### [facility] [address] [place], [address] Glucose [Mass/Vol] 107 mg/dL High 70-99 [facility] Comment on above: Performed By: #### L 100.0100, L501.6710, L506.1001, L500.4050, L506.0400, L501.9520, L503.6030, L503.0106 #### [facility] [address] [place], [address] Potassium [Moles/Vol] 3.9 mmol/L Normal 3.3-5.1 [facility] Comment on above: Performed By: #### L 100.0100, L501.6710, L506.1001, L500.4050, L506.0400, L501.9520, L503.6030, L503.0106 #### [facility] [address] [place], [address] Sodium [Moles/Vol] 139 mmol/L Normal 133-145 [facility] Comment on above: Performed By: #### L 100.0100, L501.6710, L506.1001, L500.4050, L506.0400, L501.9520, L503.6030, L503.0106 #### [facility] [address] [place], [address] T PROT 7.1 g/dL Normal 5.9-8.4 [facility] Comment on above: Performed By: #### L 100.0100, L501.6710, L506.1001, L500.4050, L506.0400, L501.9520, L503.6030, L503.0106 #### [facility] [address] [place], [address] Urea nitrogen [Mass/Vol] 12 mg/dL Normal 4-19 [facility] Comment on above: Performed By: #### L 100.0100, L501.6710, L506.1001, L500.4050, L506.0400, L501.9520, L503.6030, L503.0106 #### [facility] [address] [place], [address] Eosinophil percentageOrdered By: Hilton Doty on 11-10-2024 Eosinophils/100 WBC (Bld) 1.6 % 0-5 [facility] Erythrocyte distribution wid th (RBC) [Ratio]Ordered By: Hilton Doty on 11-10-2024 Erythrocyte distribution width (RBC) [Entitic vol] 47.7 fL High 35.1-43.9 [facility] Erythrocyte distribution wid th ratioOrdered By: Hilton Doty on 11-10-2024 Erythrocyte distribution width (RBC) [Ratio] 14.2 % 11.6-14.6 [facility] Erythrocyte distribution wid th standard deviationOrdered By: Hilton Doty on 11-10-2024 Erythrocyte distribution width (RBC) [Ratio] 47.7 fl High 35.1-43.9 [facility] GFR/1.73 sq M.predicted rosina g non-blacks MDRD (S/P/Bld) [Vol rate/Area]Ordered By: Hilton Doty on 11-10-2024 Estimated GFR (MDRD) Non-Af Amer 79 >60 [facility] Comment on above: mL/min/1.73m2 CKD-EP I Creatinine Equation (2020) Glomerular filtration rate ( GFR) estimation/1.73 sq m using serum, plasma, or whole bOrdered By: Hilton Doty on 11-10-2024 GFR/1.73 sq M.predicted among non-blacks MDRD (S/P/Bld) [Vol rate/Area] 79 mL/min/{1.73_m2} >60 [facility] Comment on above: mL/min/1.73m2 CKD-EP I Creatinine Equation (2020) Hematocrit Auto (Bld) [Volum e fraction]Ordered By: Hilton Doty on 11-10-2024 Hematocrit (Bld) [Volume fraction] 39.9 % 37-47 [facility] Hemoglobin measurementOrdere d By: Hilton Doty on 11-10-2024 Hemoglobin (Bld) [Mass/Vol] 13.4 g/dL 12.0-15.0 [facility] Immature granulocytes/100 WB C Auto (Bld)Ordered By: Hilton Doty on 11-10-2024 Immature granulocytes/100 WBC (Bld) 0.200 % 0.0-0.9 [facility] Comment on above: IG% - Immature Granu locytes (promyelocytes, myelocytes and metamyelocytes) > 1% indicates that a LEFT SHIFT is Present. Iron (Unsp spec) [Mass/Mass] Ordered By: Hilton Doty on 11-10-2024 Iron [Mass/Vol] 93 ug/dL 50-170 [facility] Iron measurement (mass/mass) Ordered By: Hilton Doty on 11-10-2024 Iron (Unsp spec) [Mass/Mass] 93 ug/dL 50-170 [facility] Iron saturation [Mass fracti on]Ordered By: Hilton Doty on 11-10-2024 Iron Saturation 35.5 % 13-59 [facility] Comment on above: Previous reported re sult: 35.0 %Edited by: MOOSES on 11/10/24:0902 AMENDED REPORT 11/10/24901 IRON SATURATION previously reported as: 35.0 % Iron+Iron Binding Capacityon 11-10-2024 Iron [Mass/Vol] 93 ug/dL Normal 50-170 [facility] Comment on above: Performed By: #### L 100.0100, L501.6710, L506.1001, L500.4050, L506.0400, L501.9520, L503.6030, L503.0106 #### [facility] [address] [place], [address] UIBC 169 ug/dL Low 228-428 [facility] Comment on above: Performed By: #### L 100.0100, L501.6710, L506.1001, L500.4050, L506.0400, L501.9520, L503.6030, L503.0106 #### [facility] [address] [place], [address] Laboratory - Chemistry and C hemistry - challengeOrdered By: Hilton Doty on 11-10-2024 AST [Catalytic activity/Vol] 23 U/L <32 [facility] Lymphocytes Auto (Unsp spec) [#/Vol]Ordered By: Hilton Doty on 11-10-2024 Lymphocytes (Bld) [#/Vol] 1.63 10*3/uL 0.83-4.51 [facility] Lymphocytes/100 WBC Auto (Un sp spec)Ordered By: Hilton Doty on 11-10-2024 Lymphocytes/100 WBC (Bld) 29.0 % 19-41 [facility] MCV (mean corpuscular volume ) determinationOrdered By: Hilton Doty on 11-10-2024 MCV (RBC) [Entitic vol] 91.7 fL 81-99 [facility] Mean corpuscular hemoglobin (MCH) determinationOrdered By: Hilton Doty on 11-10-2024 MCH (RBC) [Entitic mass] 30.8 pg 27.0-32.0 [facility] Mean corpuscular hemoglobin concentration (MCHC) determinationOrdered By: Hilton Doty on 11-10-2024 MCHC (RBC) [Mass/Vol] 33.6 g/dL 32-36 [facility] Mean platelet volume determi nationOrdered By: Hilton Doty on 11-10-2024 Platelet mean volume (Bld) [Entitic vol] 9.7 fL 6.2-12.0 [facility] Monocyte percentageOrdered B y: Hilton Doty on 11-10-2024 Monocytes/100 WBC (Bld) 7.6 % 0-10 [facility] Neutrophil percentageOrdered By: Hiltno Doty on 11-10-2024 Neutrophils/100 WBC (Bld) 61.2 % 47-70 [facility] No Panel InformationOrdered By: Hilton Doty on 11-10-2024 Unsaturated Iron Binding Capacity 169 ug/dL Low 228-428 [facility] Nucleated red blood cell per centageOrdered By: Hilton Doty on 11-10-2024 Nucleated RBC/100 WBC (Bld) [Ratio] 0 % 0-5 [facility] Platelet countOrdered By: Melissa Doty on 11-10-2024 Platelets (Bld) [#/Vol] 244 10*3/uL 150-450 [facility] Potassium (Unsp spec) [Mass/ Vol]Ordered By: Hilton Doty on 11-10-2024 Potassium [Moles/Vol] 3.9 mmol/L 3.3-5.1 [facility] Potassium measurement (mass/ volume)Ordered By: Hilton Doty on 11-10-2024 Potassium (Unsp spec) [Mass/Vol] 3.9 mmol/L 3.3-5.1 [facility] RBC Auto (Bld) [#/Vol]Ordere d By: Hilton Doty on 11-10-2024 RBC (Bld) [#/Vol] 4.35 10*6/uL 4.2-5.4 [facility] Serum creatinine measurement (mass/volume)Ordered By: Hilton Doty on 11-10-2024 Creatinine [Mass/Vol] 0.92 mg/dL 0.70-1.20 [facility] Serum globulin measurementOr dered By: Hilton Doty on 11-10-2024 Globulin (S) [Mass/Vol] 3.1 g/dL 2.2-4.2 [facility] Serum glucose measurement (m ass/volume)Ordered By: Hilton Doty on 11-10-2024 Glucose [Mass/Vol] 107 mg/dL High 70-99 [facility] Serum or plasma C reactive p rotein measurement (mass/volume)Ordered By: Hilton Doty on 11-10-2024 CRP [Mass/Vol] mg/L 0.0-3.0 [facility] Serum or plasma alanine nieto otransferase (ALT) measurementOrdered By: Hilton Doty on 11-10-2024 ALT [Catalytic activity/Vol] 23 U/L <35 [facility] Serum or plasma albumin willie urement (mass/volume)Ordered By: Hilton Doty on 11-10-2024 Albumin [Mass/Vol] 4.1 g/dL 3.5-5.0 [facility] Serum or plasma albumin/glob ulin mass ratioOrdered By: Hilton Doty on 11-10-2024 Albumin/Globulin [Mass ratio] 1.3 {ratio} 0.9-2.4 [facility] Serum or plasma alkaline rima sphatase measurementOrdered By: Hilton Doty on 11-10-2024 ALP [Catalytic activity/Vol] 72 U/L 35-104 [facility] Serum or plasma calcium willie urement (mass/volume)Ordered By: Hilton Doty on 11-10-2024 Calcium [Mass/Vol] 9.4 mg/dL 7.6-11.0 [facility] Serum or plasma iron saturat ion measurement (mass fraction)Ordered By: Hilton Doty on 11-10-2024 Iron saturation [Mass fraction] 35.5 % 13-59 [facility] Comment on above: Previous reported re sult: 35.0 %Edited by: HENRIETTA on 11/10/24:0902 AMENDED REPORT 11/10/24 0902 IRON SATURATION previously reported as: 35.0 % Serum or plasma urea nitroge n measurement (mass/volume)Ordered By: Hilton Doty on 11-10-2024 Urea nitrogen [Mass/Vol] 12 mg/dL 4-19 [facility] Sodium levelOrdered By: Jason Doty on 11-10-2024 Sodium [Moles/Vol] 139 mmol/L 133-145 [facility] T4 Free Directon 11-10-2024 T4 FREE DIRECT 1.20 ng/dL Normal 0.76-1.46 [facility] Comment on above: Performed By: #### L 100.0100, L501.6710, L506.1001, L500.4050, L506.0400, L501.9520, L503.6030, L503.0106 #### [facility] [address] [place], [place], [address] T4 freeOrdered By: Hilton gomes on 11-10-2024 Free T4 [Mass/Vol] 1.20 ng/dL 0.76-1.46 [facility] TSH DL <= 0.005 mIU/L QnOrde red By: Hilton Doty on 11-10-2024 Thyroid Stimulating Hormone (TSH) 2.360 uIU/mL 0.300-4.200 [facility] TSH Qn 2.360 uIU/mL 0.300-4.200 [facility] Thyroid Stim Hormone (TSH)on 11-10-2024 TSH 2.360 uIU/mL Normal 0.300-4.200 [facility] Comment on above: Performed By: #### L 100.0100, L501.6710, L506.1001, L500.4050, L506.0400, L501.9520, L503.6030, L503.0106 #### [facility] [address] [place], [address] Total proteinOrdered By: Clay Doty on 11-10-2024 Protein [Mass/Vol] 7.1 g/dL 5.9-8.4 [facility] Vitamin B12on 11-10-2024 Cobalamin (Vitamin B12) [Mass/Vol] 756 pg/mL Normal 180-914 [facility] Comment on above: Performed By: #### L 100.0100, L501.6710, L506.1001, L500.4050, L506.0400, L501.9520, L503.6030, L503.0106 #### [facility] [address] [place], [place], [id number] Vitamin B12 ser/plasOrdered By: Hilton Doty on 11-10-2024 Cobalamin (Vitamin B12) [Mass/Vol] 756 pg/mL 180-914 [facility] Vitamin D, 25-hydroxyOrdered By: Hilton Doty on 11-10-2024 Vitamin D 25-Hydroxy 58.9 ng/mL 30-100 [facility] Comment on above: Vitamin D StatusDefi ciency: <20 ng/mL (50nmol/L)Insufficiency: 20-30 ng/mL (50-75 nmol/L)Sufficiency: 30-100 ng/mL (75-250 nmol/L)Toxicity: >100 ng/mL (>250 nmol/L) Vitamin D,25 Hydroxyon 11-10 Vitamin D 25-OH 58.9 ng/mL Normal 30-100 [facility] Comment on above: Result Comment: Kristen min D Status Deficiency: <20 ng/mL (50nmol/L) Insufficiency: 20-30 ng/mL (50-75 nmol/L) Sufficiency: 30-100 ng/mL (75-250 nmol/L) Toxicity: >100 ng/mL (>250 nmol/L) Performed By: #### L 100.0100, L501.6710, L506.1001, L500.4050, L506.0400, L501.9520, L503.6030, L503.0106 ####[facility] [address] [place], [address] White blood cell (WBC) count Ordered By: Hilton Doty on 11-10-2024 WBC (Bld) [#/Vol] 5.6 10*3/uL 4.4-11.0 [facility] MR/BMSAlf 11-02-2024 MR/MERE [facility] Surgery [address] [place] [address] OFFICE VISIT Date of Service: 11/02/24 MR#: [id number] Acct: [id number] Name: WANDA REYNA Rep #: [id number] : 1980 Provider: JAYE Montero Age/Sex: 44/F Location: [facility] Status: Signed Intake Vital Signs 05/26/24 12:40 [...] mg tablet 75 mg PO DIRECTED 09/24/23 0409/27 History cholecalciferol (vitamin D3) 125 125 mcg PO DAILY 09/24/23 11/02/24 History mcg (5,000 unit) capsule phentermine 11.25 mg-topiramate ER 1 cap PO DAILY 09/24/23 11/02/24 History 69 mg capsule,ext.ynrnfmm90bk mphas (Qsymia) hydroxychloroquine 200 mg tablet 300 [...] occupational status: employed 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 [facility] 10-28-2024 [facility] Telephone (INTMWS) -- WANDA REYNA ([id number]) 1980 F Date Time Provider Department 10/28/24 [facility] During your visit today, we recorded the following information about you: Elianeglenn CatinaOLU james 10/28/2024 1:56 PM Signed PA completed for [...] Wanda Reyna PATIENT INFO: PROVIDER: Lisa García APRN.[facility] 10/28/2024 2:31 PM Signed Please call patient and let her know. She can call insurance for alternative if needed. Thank you, Lisa Doll APRN.FEI Catina AustinOLU 11/02/2024 11:40 AM Signed Called the pharmacy and they report the generic azeliac acid would be covered, this is a 15% though. Pt has not picked the rx for the 20% nor has she responded to the pharmacy chart message. Anna Sheikh APRN.FEI 11/04/2024 8:07 AM Signed Noted, thank you Anna Sheikh APRN.[employer] Allergies As of Date: 10/28/2024 Noted Allergy [...] Encounter Status:Closed by ANNA SHEIKH on 11/04/24 [facility] CNOVon 10-26-2024 CNOV Office Visit (FAMPWS ) -- WANDA REYNA ([id number]) 1980 F Date Time Provider Department 10/26/24 6:20 PM HILTON DOTY FAMPWS During your visit today, we recorded the following information about you: Temperature Pulse Respiration Blood pressure 97.4 degrees 76/minute 16/minute 120/80 Weight Last Period 86.2 kg 10/01/24 Hilton Doty, DO 10/26/2024 10:00 PM Signed CC: Wanda Reyna [...] of interstitial (more content not included)... Normal [facility] Echo Completeon 10-26-2024 Echo Complete [facility] [address] [place] [address] Echo Complete 10/26/24 1250 MR#: [id number] Acct: [id number] Name: WANDA REYNA Rep #: [id number] : 1980 44 From: Stone Quiñonez MD Attending Dr: Rajinder Hinton NP-C Status: REG CLI Ordering Dr: Rajinder Hinton HOSE OPERATOR-C Date: 10/26/24 Location: [facility] Sex: F C Admitted: Reason [...] Isaura Plasencia, ALANCS, RVT 10/26/24 1433 Date Stone Quiñonez MD CC: HOSE OPERATOR-C Rajinder Hinton; Dr. Hilton Doty, Date Dictated: 10/26/24 1250 Date Transcribed: 10/26/24 1433 Welder Fitter: Signed Normal [facility] Echocardiogram study reportO rdered By: Stone Quiñonez on 10-26-2024 Study report [facility] [place] [address] Echo Complete 10/26/24 1250 MR#: [id number] Acct: [id number] Name: WANDA REYNA Rep #:[id number] : 1980 44 From: Stone Quintero Attending Dr: Rajinder Hinton, HOSE OPERATOR-C Status: REG CLI Ordering Dr: Rajinder Hinton HOSE OPERATOR-C Date : 10/26/24 Location: [facility] Sex: F C Admitted: Reason [...] 1433 Date _ Stone Quiñonez MD CC: HOSE OPERATOR-C Rajinder Hinton; Dr. Hilton Doty DO ~ Date Dictated: 10/26/24 1250 Date Transcribed: 10/26/24 1433 Welder Fitter: Signed [facility] Work Phone: Davin 10-17-2024 [facility] Telephone (FAMPWS) -- WANDA REYNA ([id number]) 1980 F Date Time Provider Department 10/17/24 RAJINDER HINTON During your visit today, we recorded the following information about you: Gina Sparks LPN 10/17/2024 2:32 PM Signed Patient calling asking if her lab results are back she had done at [facility] on 10/14? See in lab section scanned in. Patient was going to try to go back to work tomorrow but still feels short of breath with not much activity, and fatigued. Please advise Rajinder Hinton APRN.[employer] 10/17/2024 2:38 PM Signed Please let patient know her BNP is normal. Patient should follow up with Dr. Doty next week as scheduled. Dasia Hopper MA 10/17/2024 3:27 PM Signed Pt notified and verbalized understanding. Pt asking if you have any further recommendations to help with the SOB in the meantime? FRENCH Nelson Danielle, APRN.[employer]ASS WORKER 10/17/2024 3:39 PM Signed Has patient scheduled [...] Please review and advise, ELSIE Iqbal Danielle, APRN.[employer]ASS WORKER 10/17/2024 4:25 PM Signed I want her [...] Encounter Pres (more content not included)... Normal [facility] CNOVon 10-14-2024 CNOV Office Visit (JOANPWS ) -- WANDA REYNA ([id number]) 1980 F Date Time Provider Department 10/14/24 1:40 PM KNOBLE, RAJINDER FAMPWS During your visit today, we recorded the following information about you: Pulse Blood pressure Weight 81/minute 102/71 85 kg YaskokoRajinder APRN.FEI 10/14/2024 1:40 PM Signed Chief Complaint Patient [...] done Mammogram Screening due on 07/01/2022 Covid-19 Vaccine(2023- season) due on 04/03/2024 DTaP,Tdap,Td Vaccine(2 - [...] 0.9 % (FLUSH) INJECTION SYRINGE Rajinder Hinton APRN.[employer] WORK[employer] Allergies As of Date: 10/14/2024 Noted Allergy Reaction PENICILLINS 08/30/2013 16 - Unknown Date Reviewed: 10/14/2024 Reviewed by: Dasia Hopper MA - Fully Assessed Reason for Visit: ER F/U [41] Primary Visit Diagnosis:Bilateral leg edema [R60.0] Other Visit Diagnoses:SOB (shortness of breath) [R06.02] Obesity, Class I, BMI 30-34.9 [E66.811] Order(s):ECHO [889165] Order #: [id number]: 1 FUTURE NT PRO BNP [SQNTBNP] Order #: [id number] FUTURE Prescriptions as of 0 (more content not included)... Normal [facility] CNPNon 10-14-20[facility] ([id number]) 1980 F Date Time Provider Department 10/14/24 RAJINDER HINTON During your visit today, we recorded the following information about you: Frank Obando RN 10/14/2024 3:22 PM Signed Patient calls to report that she is having trouble scheduling ECHO with [facility] until out into November because it doesn't say stat. Patient asking if order can be changed to STAT and sent to [facility] scheduling. ELSIE Hsieh Danielle, RISK CONTROL FIELD REPRESENTATIVE.AUTO GLASS WORKER 10/14/2024 3:41 PM Signed New order placed. Please fax to [facility]. Dasia Hopper MA 10/17/2024 10:17 AM Signed New stat order faxed to [facility] Dasia Hopper MA Allergies As of Date: 10/14/2024 Noted Allergy Reaction PENICILLINS 08/30/2013 16 - Unknown Date Reviewed: 10/14/2024 Reviewed by: Dasia Hopper MA - Fully Assessed Reason for Visit: Patient Question [1477] Primary Visit Diagnosis:Bilateral leg edema [R60.0] Other Visit Diagnosis:SOB (shortness of breath) [R06.02] Order(s):MAGDALENA [270075] Order #: [id number]: 1 FUTURE Prescriptions as of 10/17/2024 - [...] Status:Closed by RAJINDER HINTON on 10/17/24 Normal [facility] L503.7505on 10-14-2024 proBNP < 36 Normal <=450 [facility] Comment on above: Result Comment: Hear t Failure Unlikely: < 300 pg/mL Heart Failure Likely < 50 Years: > 450 pg/mL 50-75 Years: > 900 pg/mL >75 Years: > 1800 pg/mL Performed By: #### L 100.0100, L501.6710, L506.1001, L500.4050, L506.0400, L501.9520, L503.6030, L503.0106 #### [facility] [address] [place], [address] No Panel InformationOrdered By: Laura Rai on 10-14-2024 LS-OtfL-Peai Natriuretic Peptide II < 36 pg/mL <450 [facility] Comment on above: Heart Failure Unlike ly: < 300 pg/mLHeart Failure Likely< 50 Years: > 450 pg/mL50-75 Years: > 900 pg/mL>75 Years: > 1800 pg/mL Venous Duplex US, Unilateral on 10-14-2024 Venous Duplex US, Unilateral [facility] [address] [place] [address] Venous Duplex US, Unilateral 10/14/24 1053 MR#: [id number] Acct: [id number] Name: WANDA REYNA Rep #: [id number] : 1980 44 From: Derek Barone MD [...] Dictated: 10/14/24 1053 Date Transcribed: 10/24/24 1220 Welder Fitter: Signed [facility] 12 Lead EKGon 10-13-2024 12 Lead EKG [facility] Services [address] [place] [address] 12 Lead EKG 10/13/24 1723 MR#: [id number] Acct: [id number] Name: WANDA REYNA Rep #: [id number] : 1980 44 From: Smita Gongora MD [...] Normal ECG Confirmed by RODERICK ADKINS, LUCIANO ([id number]), digital editor RODOLFO PIEDRA ([id number]) on 10/17/2024 10:48:12 AM Referred By: Charlie Lombardo Confirmed By: LUCIANO GONGORA MD 10/17/24 1048 Date Smita Gongora MD CC: Dr. Hilton Doty DO; Dr. Charlie Lombardo DO Signed [facility] Absolute lymphocyte countOrd ered By: Charlie Lombardo on 10-13-2024 Lymphocytes Auto (Unsp spec) [#/Vol] 2.32 10*3/uL 0.83-4.51 [facility] Absolute neutrophil countOrd ered By: Charlie Lombardo on 10-13-2024 Neutrophils (Bld) [#/Vol] 4.5 10*3/uL 2.0-7.7 [facility] Anion gap in Serum or Plasma Ordered By: Charlie Lombardo on 10-13-2024 Anion gap [Moles/Vol] 14 mmol/L 5- [facility] Automated lymphocyte count a s percentage of total leukocytesOrdered By: Charlie Lombardo on 10-13-2024 Lymphocytes/100 WBC Auto (Unsp spec) 30.6 % [facility] BUN/creatinine ratioOrdered By: Charlie Lombardo on 10-13-2024 Urea nitrogen/Creatinine [Mass ratio] 14.3 mg/mg - [facility] Basic Metabolic Profile (BMP )on 10-13-2024 BUN/CRE 14.3 RATIO Normal 05-22 [facility] Comment on above: Performed By: #### L 500.2500, L100.0100 ####[facility] [address] [place], [address] Calcium [Mass/Vol] 9.8 mg/dL Normal 7.6-11.0 [facility] Comment on above: Performed By: #### L 500.2500, L100.0100 ####[facility] [address] [place], [address] Chloride [Moles/Vol] 99 mmol/L Normal 98-108 [facility] Comment on above: Performed By: #### L 500.2500, L100.0100 ####[facility] [address] [place], [address] CO2 [Moles/Vol] 23.6 mmol/L Normal 21.0-32.0 [facility] Comment on above: Performed By: #### L 500.2500, L100.0100 ####[facility] [address] [place], [address] Creatinine [Mass/Vol] 0.89 mg/dL Normal 0.70-1.20 [facility] Comment on above: Performed By: #### L 500.2500, L100.0100 ####[facility] [address] [place], [address] ECRCL 88.51 ml/min Normal 50-250 [facility] Comment on above: Performed By: #### L 500.2500, L100.0100 ####[facility] [address] [place], [address] GAP 14 Normal 5-15 [facility] Comment on above: Performed By: #### L 500.2500, L100.0100 ####[facility] [address] [place], [address] GFR/1.73 sq M.predicted among non-blacks MDRD (S/P/Bld) [Vol rate/Area] 82 mL/min/{1.73_m2} Normal >60 [facility] Comment on above: Result Comment: mL/m in/1.73m2 CKD-EPI Creatinine Equation (2020) Performed By: #### L 500.2500, L100.0100 ####[facility] [address] [place], [address] Glucose [Mass/Vol] 92 mg/dL Normal 70-99 [facility] Comment on above: Performed By: #### L 500.2500, L100.0100 ####[facility] [address] [place], [address] Potassium [Moles/Vol] 3.6 mmol/L Normal 3.3-5.1 [facility] Comment on above: Result Comment: Hemo lysis present, Results??could be affected. ?? Performed By: #### L 500.2500, L100.0100 ####[facility] [address] [place], [address] Sodium [Moles/Vol] 136 mmol/L Normal 133-145 [facility] Comment on above: Performed By: #### L 500.2500, L100.0100 ####[facility] [address] [place], [address] Urea nitrogen [Mass/Vol] 13 mg/dL Normal 4-19 [facility] Comment on above: Performed By: #### L 500.2500, L100.0100 ####[facility] [address] [place], [address] Basophil percentageOrdered B y: Charlie Lombardo on 10-13-2024 Basophils/100 WBC (Bld) 0.4 % 0-1 [facility] Blood manual differential co mment interpretation (narrative result)Ordered By: Charlie Lombardo on 10-13-2024 Manual differential comment Anselmo (Bld) [Interp] SCANNED [facility] CBC W/Diff, Automatedon 10-01 SMEAR COMMENT SCANNED Normal [facility] Comment on above: Performed By: #### L 500.2500, L100.0100 ####[facility] [address] [place], [address] Carbon dioxide, total [Moles /volume] in Central venous bloodOrdered By: Charlie Lombardo on 10-13-2024 CO2 [Moles/Vol] 23.6 mmol/L 21.0-32.0 [facility] Chest PA and Lateralon 10-13 Chest PA and Lateral [facility] Imaging Services [address] [place] [address] Chest PA and Lateral MR#: [id number] Acct: [id number] Name: WANDA REYNA Rep #: [id number] : 1980 F 44 From: Lazaro Noriega i, MD PCP: Dr. Hilton Doty, DO Status: REG ER Study: Chest PA and Lateral Date of Exam: 10/13/24 Exam# [id number] Ordering Dr: Charlie Lombardo DO PROCEDURE: CHEST [...] IMPRESSION: No acute pulmonary disease. Reading Location: [id number] CC: Dr. Hilton Doty DO; Dr. Charlie Lombardo DO Welder Fitter: Signed Normal [facility] Chloride assayOrdered By: Quoc Lombardo on 10-13-2024 Chloride [Moles/Vol] 99 mmol/L 98-108 [facility] D-Dimer Quantitative (DVT/PE )on 10-13-2024 D-DIMER QUANT < 0.27 Low 0.27-0.49 [facility] Comment on above: Result Comment: NORM AL D-Dimer level (<0.50) indicates no DVT or PE. NORMAL D-Dimer level (<0.50) indicates no DVT or PE. Performed By: #### L 300.8000 ####[facility] [address] [facility] [place], [address] D-dimer measurement for deep venous thrombosisOrdered By: Charlie Lombardo on 10-13-2024 D-Dimer Quantitative (PE/DVT) < 0.27 FEU/ug/m Low 0.27-0.49 [facility] Comment on above: NORMAL D-Dimer level (<0.50) indicates no DVT or PE. NORMAL D-Dimer level (<0.50) indicates no DVT or PE. 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 Normal [facility] Eosinophil percentageOrdered By: Charlie Lombardo on 10-13-2024 Eosinophils/100 WBC (Bld) 1.3 % 0-5 [facility] Erythrocyte distribution wid th ratioOrdered By: Charlie Lombardo on 10-13-2024 Erythrocyte distribution width (RBC) [Ratio] 13.2 % 11.6-14.6 [facility] Erythrocyte distribution wid th standard deviationOrdered By: Charlie Lombardo on 10-13-2024 Erythrocyte distribution width (RBC) [Entitic vol] 43.6 fL 35.1-43.9 [facility] Erythrocyte distribution width (RBC) [Ratio] 43.6 fl 35.1-43.9 [facility] Estimation of creatinine eduar aranceOrdered By: Charlie Lombardo on 10-13-2024 Estimated Creatinine Clearance Calc 88.51 ml/min 50-250 [facility] GFR/1.73 sq M.predicted rosina g non-blacks MDRD (S/P/Bld) [Vol rate/Area]Ordered By: Charlie Lombardo on 10-13-2024 Estimated GFR (MDRD) Non-Af Amer 82 >60 [facility] Comment on above: mL/min/1.73m2 CKD-EP I Creatinine Equation (2020) Glomerular filtration rate ( GFR) estimation/1.73 sq m using serum, plasma, or whole bOrdered By: Charlie Lombardo on 10-13-2024 GFR/1.73 sq M.predicted among non-blacks MDRD (S/P/Bld) [Vol rate/Area] 82 mL/min/{1.73_m2} >60 [facility] Comment on above: mL/min/1.73m2 CKD-EP I Creatinine Equation (2020) Hematocrit Auto (Bld) [Volum e fraction]Ordered By: Charlie Lombardo on 10-13-2024 Hematocrit (Bld) [Volume fraction] 43.5 % 37-47 [facility] Hemoglobin measurementOrdere d By: Charlie Lombardo on 10-13-2024 Hemoglobin (Bld) [Mass/Vol] 14.5 g/dL 12.0-15.0 [facility] Immature granulocytes/100 WB C Auto (Bld)Ordered By: Charlie Lombardo on 10-13-2024 Immature granulocytes/100 WBC (Bld) 0.300 % 0.0-0.9 [facility] Comment on above: IG% - Immature Granu locytes (promyelocytes, myelocytes and metamyelocytes) > 1% indicates that a LEFT SHIFT is Present. L499.0042on 10-13-2024 Trop T High Sen 6 ng/L Normal <=14 [facility] Comment on above: Performed By: #### L 499.0042 ####[facility] [address] [place], [address] L499.0043on 10-13-2024 Trop T High Sen Normal <=14 [facility] Comment on above: Result Comment: Canc elled via OM: Order cancelled - Patient discharged Performed By: #### L 499.0043 ####[facility] [address] [place], [address] L501.4021on 10-13-2024 Trop T High Sen < 6 Normal <=14 [facility] Comment on above: Result Comment: Hemo lysis present, Results??could be affected. ?? Performed By: #### L 100.0100, L501.6710, L506.1001, L500.4050, L506.0400, L501.9520, L503.6030, L503.0106 #### [facility] [address] [place], [address] Lymphocytes Auto (Unsp spec) [#/Vol]Ordered By: Charlie Lombardo on 10-13-2024 Lymphocytes (Bld) [#/Vol] 2.32 10*3/uL 0.83-4.51 [facility] Lymphocytes/100 WBC Auto (Un sp spec)Ordered By: Charlie Lombardo on 10-13-2024 Lymphocytes/100 WBC (Bld) 30.6 % 19-41 [facility] MCV (mean corpuscular volume ) determinationOrdered By: Charlie Lombardo on 10-13-2024 MCV (RBC) [Entitic vol] 89.9 fL 81-99 [facility] Manual differential comment Anselmo (Bld) [Interp]Ordered By: Charlie Lombardo on 10-13-2024 Differential Comment SCANNED [facility] Mean corpuscular hemoglobin (MCH) determinationOrdered By: Charlie Lombardo on 10-13-2024 MCH (RBC) [Entitic mass] 30.0 pg 27.0-32.0 [facility] Mean corpuscular hemoglobin concentration (MCHC) determinationOrdered By: Charlie Lombardo on 10-13-2024 MCHC (RBC) [Mass/Vol] 33.3 g/dL 32-36 [facility] Mean platelet volume determi nationOrdered By: Charlie Lombardo on 10-13-2024 Platelet mean volume (Bld) [Entitic vol] 10.2 fL 6.2-12.0 [facility] Monocyte percentageOrdered B y: Charlie Lombardo on 10-13-2024 Monocytes/100 WBC (Bld) 8.4 % 0-10 [facility] Neutrophil percentageOrdered By: Charlie Lombardo on 10-13-2024 Neutrophils/100 WBC (Bld) 59.0 % 47-70 [facility] No Panel InformationOrdered By: Charlie Lombardo on 10-13-2024 Troponin T High Sensitivity < 6 ng/L <14 [facility] Comment on above: Hemolysis present, R esults could be affected. Nucleated red blood cell per centageOrdered By: Charlie Lombardo on 10-13-2024 Nucleated RBC/100 WBC (Bld) [Ratio] 0 % 0-5 [facility] Platelet countOrdered By: Quoc Lombardo on 10-13-2024 Platelets (Bld) [#/Vol] 243 10*3/uL 150-450 [facility] Potassium (Unsp spec) [Mass/ Vol]Ordered By: Charlie Lombardo on 10-13-2024 Potassium [Moles/Vol] 3.6 mmol/L 3.3-5.1 [facility] Comment on above: Hemolysis present, R esults could be affected. Potassium measurement (mass/ volume)Ordered By: Charlie Lombardo on 10-13-2024 Potassium (Unsp spec) [Mass/Vol] 3.6 mmol/L 3.3-5.1 [facility] Comment on above: Hemolysis present, R esults could be affected. ,Urineon 10-13-2024 Beta HCG ( test) Ql (U) Negative Normal [facility] Comment on above: Result Comment: Very dilute urine specimens, as indicated by a low specific gravity, may not contain bank representative levels of hCG. If is still suspected, a first morning urine specimen should be collected 48 hours later and tested. Performed By: #### L 400.0334 ####[facility] [address] [place], [address] RBC Auto (Bld) [#/Vol]Ordere d By: Charlie Lombardo on 10-13-2024 RBC (Bld) [#/Vol] 4.84 10*6/uL 4.2-5.4 [facility] Serum creatinine measurement (mass/volume)Ordered By: Charlie Lombardo on 10-13-2024 Creatinine [Mass/Vol] 0.89 mg/dL 0.70-1.20 [facility] Serum glucose measurement (m ass/volume)Ordered By: Charlie Lombardo on 10-13-2024 Glucose [Mass/Vol] 92 mg/dL 70-99 [facility] Serum or plasma calcium willie urement (mass/volume)Ordered By: Charlie Lombardo on 10-13-2024 Calcium [Mass/Vol] 9.8 mg/dL 7.6-11.0 [facility] Serum or plasma urea nitroge n measurement (mass/volume)Ordered By: Charlie Lombardo on 10-13-2024 Urea nitrogen [Mass/Vol] 13 mg/dL 4-19 [facility] Sodium levelOrdered By: Charlie Lombardo on 10-13-2024 Sodium [Moles/Vol] 136 mmol/L 133-145 [facility] Troponin T.cardiac High sens itivity method [Mass/Vol]Ordered By: Charlie Lombardo on 10-13-2024 Troponin T High Sensitivity 2 Hour 6 ng/L <14 [facility] Troponin T.cardiac [Mass/vol ume] in Serum or Plasma by High sensitivity methodOrdered By: Charlie Lombardo on 10-13-2024 Troponin T.cardiac High sensitivity method [Mass/Vol] 6 ng/L <14 [facility] Urine testOrdered By: Charlie Lombardo on 10-13-2024 HCG ( test) Ql (U) Negative [facility] Comment on above: Very dilute urine sp ecimens, as indicated by a low specificgravity, may not contain bank representative levels of hCG. If is still suspected, a first morning urinespecimen should be collected 48 hours later and tested. White blood cell (WBC) count Ordered By: Charlie Lombardo on 10-13-2024 WBC (Bld) [#/Vol] 7.6 10*3/uL 4.4-11.0 [facility] CNPNon 10-07-20[facility] WANDA REYNA ([id number]) 1980 F Date Time Provider Department 10/07/24 [facility]IL[facility] DOTY [facility] During your visit today, we recorded the following information about you: Ngco Ervin RN 10/07/2024 10:40 AM Signed Patient asking if Dr. Doty could review her [facility] lab results that were completed 09/22/24 (in scanned docs), as well as her [facility] Vascular Note from 09/08/24 (in scanned docs as well). Pt states there is no solano to review these records, but wanted Dr. Doty's advise on her lab results, as she sees there are some numbers that are off and she was not feeling well during the time she had her labs drawn. Pt states she will be following up with [facility] Vascular in November. ELSIE Clemens Jordan L, DO 10/19/2024 7:58 PM Signed Please inform patient that labs were stable other than CRP was elevated mildly. Recommend addressing this with Chart Picker DO Riky Brady M Robin, RN 10/20/2024 9:22 AM Signed Phoned pt and given provider's message below. Pt states she hasn't seen a talent acquisition coordinator since last year. Reports pcp agreed to [...] for ativan sent. Thank you, Lisa Doll APRN.AUTO GLASS WORKER The following approved medication requests have been transmitted electronically. Requested Prescriptions Signed Prescriptions Disp Refills LORazepam (ATIVAN) 0.5 mg 30 tablet 0 Sig: Take 1 tablet by mouth once daily as needed (anxiety attack) for up to 30 days. Authorizing Provider: LISA DOLL APRN.AUTO GLASS WORKER PDMP website checked and validated. All prescriptions [...] an ok amount to drink? Lisa Doll APRN.FEI 10/20/2024 10:55 AM Signed No need for fluid restriction after getting BNP results as normal and normal kidney function. I would suggest around 60oz of water per day. Thank you, Lisa Doll APRN.AUTO GLASS WORKER Allergies As of Date: 10/07/2024 Noted Allergy [...] (morbid obesity*10/14/19 (more content not included)... Normal [facility] Breast imaging reportOrdered By: Jimmy Cam on 09-26-2024 Study report [facility] Imaging Services [address] [place] [address] SCRN MAMM (CAD)W/KYMBERLY BILAT MR#: [id number] Acct: [id number] Name: WANDA REYNA Rep #: [id number] : 1980 F 44 From: Beni Cam MD PCP: Dr. Hilton Doty DO Status: RE G CLI Study:SCRN MAMM (CAD)W/KYMBERLY BILAT Date of Exa m: 09/26/24 Exam# [id number] Ordering Dr: Nilda Loya NP HOSE OPERATOR-C PROCEDURE: SCRN MAMM (CAD)W/KYMBERLY BILAT REASON FOR [...] of the results by letter. Reading Location: [id number] CC: HOSE OPERATOR-C Nilda Loya; Dr. Hilton Doty DO ~ Welder Fitter: Signed [facility] SCRN MAMM (CAD)W/KYMBERLY BILATo n 09-26-2024 SCRN MAMM (CAD)W/KYMBERLY BILAT [facility] Imaging Services [address] [place], [place] [id number] SCRN MAMM (CAD)W/KYMBERLY BILAT MR#: [id number] Acct: [id number] Name: WANDA REYNA Rep #: [id number] : 1980 F 44 From: Jimmy hood MD PCP: Dr. Hilton Doty DO Status: REG CLI Study: SCRN MAMM (CAD)W/KYMBERLY BILAT Date of Exam: 09/04 11/25 Exam# [id number] Ordering Dr: Nilda Loya NP HOSE OPERATOR -C PROCEDURE: SCRN MAMM (CAD)W/KYMBERLY BILAT REASON [...] of the results by letter. Reading Location: [facility] CC: HOSE OPERATOR-Jessica Loya; Dr. Hilton Doty DO Welder Fitter: Signed Normal [facility] Absolute lymphocyte countOrd ered By: Hilton Doty on 09-22-2024 Lymphocytes Auto (Unsp spec) [#/Vol] 1.27 10*3/uL 0.83-4.51 [facility] Absolute neutrophil countOrd ered By: Hilton Doty on 09-22-2024 Neutrophils (Bld) [#/Vol] 3.9 10*3/uL 2.0-7.7 [facility] Albumin to globulin ratioOrd ered By: Hilton Doty on 09-22-2024 Albumin/Globulin [Mass ratio] 0.9 {ratio} 0.9-2.4 [facility] Automated lymphocyte count a s percentage of total leukocytesOrdered By: Hilton Doty on 09-22-2024 Lymphocytes/100 WBC Auto (Unsp spec) 21.3 % 19-41 [facility] Basophil percentageOrdered B y: Hilton Doty on 09-22-2024 Basophils/100 WBC (Bld) 0.5 % 0-1 [facility] Bilirubin, totalOrdered By: Hilton Villatororison on 09-22-2024 Bilirubin [Mass/Vol] 0.50 mg/dL 0.20-1.00 [facility] Comment on above: For patients on eltr ombopag therapy, use of Dimension [place] TBIL is not recommended. Blood urea nitrogen (BUN)/cr eatinine ratioOrdered By: Hilton Doty on 09-22-2024 Urea nitrogen/Creatinine [Mass ratio] 15.1 mg/mg - [facility] C-reactive protein measureme nt by high sensitivity methodOrdered By: Hilton Doty on 09-22-2024 C-Reactive Protein Extended Range 5.87 mg/L High 0.0-3.0 [facility] Comment on above: C-Reactive Protein ( CRP) provides useful information for thediagnosis, therapy and monitoring of inflammatory processesand associated diseases. For the evaluation of Relative Riskfor Cardiovascular Disease, a High Sensitivity CRP (HSCRP)should be ordered. C-reactive protein measurement by high sensitivity method 5.87 mg/L High 0.0-3.0 [facility] Comment on above: C-Reactive Protein ( CRP) provides useful information for thediagnosis, therapy and monitoring of inflammatory processesand associated diseases. For the evaluation of Relative Riskfor Cardiovascular Disease, a High Sensitivity CRP (HSCRP)should be ordered. CBC W/Diff, Automatedon 09-04 Absolute Lymph 1.27 X10 3/uL Normal 0.83-4.51 [facility] Comment on above: Performed By: #### L 501.6710, L500.4050, L100.0100, L501.9520 ####[facility] [address] [place], [address] Absolute Neut 3.9 X10 3/uL Normal 2.0-7.7 [facility] Comment on above: Performed By: #### L 501.6710, L500.4050, L100.0100, L501.9520 ####[facility] [address] [place], [address] Basophils/100 WBC (Bld) 0.5 % Normal 0-1 [facility] Comment on above: Performed By: #### L 501.6710, L500.4050, L100.0100, L501.9520 ####[facility] [address] [place], [address] Eosinophils/100 WBC (Bld) 1.2 % Normal 0-5 [facility] Comment on above: Performed By: #### L 501.6710, L500.4050, L100.0100, L501.9520 ####[facility] [address] [place], [address] Erythrocyte distribution width (RBC) [Ratio] 13.0 % Normal 11.6-14.6 [facility] Comment on above: Performed By: #### L 501.6710, L500.4050, L100.0100, L501.9520 ####[facility] [address] [place], [address] Hematocrit (Bld) [Volume fraction] 42.1 % Normal 37-47 [facility] Comment on above: Performed By: #### L 501.6710, L500.4050, L100.0100, L501.9520 ####[facility] [address] [place], [address] Hemoglobin (Bld) [Mass/Vol] 14.2 g/dL Normal 12.0-15.0 [facility] Comment on above: Performed By: #### L 501.6710, L500.4050, L100.0100, L501.9520 ####[facility] [address] [place], [address] IG% 0.300 Normal 0.0-0.9 [facility] Comment on above: Result Comment: IG% - Immature Granulocytes (promyelocytes, myelocytes and metamyelocytes) > 1% indicates that a LEFT SHIFT is Present. Performed By: #### L 501.6710, L500.4050, L100.0100, L501.9520 ####[facility] [address] [place], [address] Lymphocytes/100 WBC (Bld) 21.3 % Normal 19-41 [facility] Comment on above: Performed By: #### L 501.6710, L500.4050, L100.0100, L501.9520 ####[facility] [address] [place], [address] MCH (RBC) [Entitic mass] 30.1 pg Normal 27.0-32.0 [facility] Comment on above: Performed By: #### L 501.6710, L500.4050, L100.0100, L501.9520 ####[facility] [address] [place], [address] MCHC (RBC) [Mass/Vol] 33.7 g/dL Normal 32-36 [facility] Comment on above: Performed By: #### L 501.6710, L500.4050, L100.0100, L501.9520 ####[facility] [address] [place], [address] MCV (RBC) [Entitic vol] 89.2 fL Normal 81-99 [facility] Comment on above: Performed By: #### L 501.6710, L500.4050, L100.0100, L501.9520 ####[facility] [address] [place], [address] Monocytes/100 WBC (Bld) 12.2 % High 0-10 [facility] Comment on above: Performed By: #### L 501.6710, L500.4050, L100.0100, L501.9520 ####[facility] [address] [place], [address] Neutrophils/100 WBC (Bld) 64.5 % Normal 47-70 [facility] Comment on above: Performed By: #### L 501.6710, L500.4050, L100.0100, L501.9520 ####[facility] [address] [place], [address] Nucleated RBC (Bld) [#/Vol] 0 10*3/uL Normal 0-5 [facility] Comment on above: Performed By: #### L 501.6710, L500.4050, L100.0100, L501.9520 ####[facility] [address] [place], [address] Platelet mean volume (Bld) [Entitic vol] 9.5 fL Normal 6.2-12.0 [facility] Comment on above: Performed By: #### L 501.6710, L500.4050, L100.0100, L501.9520 ####[facility] [address] [place], [address] Platelets (Bld) [#/Vol] 207 10*3/uL Normal 150-450 [facility] Comment on above: Performed By: #### L 501.6710, L500.4050, L100.0100, L501.9520 ####[facility] [address] [place], [address] RBC (Bld) [#/Vol] 4.72 10*6/uL Normal 4.2-5.4 [facility] Comment on above: Performed By: #### L 501.6710, L500.4050, L100.0100, L501.9520 ####[facility] [address] [place], [address] RDW SD 42.7 fl Normal 35.1-43.9 [facility] Comment on above: Performed By: #### L 501.6710, L500.4050, L100.0100, L501.9520 ####[facility] [address] [place], [place], [address] WBC (Bld) [#/Vol] 6.0 10*3/uL Normal 4.4-11.0 [facility] Comment on above: Performed By: #### L 501.6710, L500.4050, L100.0100, L501.9520 ####[facility] [address] [place], [place], [address] CNPNon 09-22-2024 [facility] -- WANDA REYNA ([id number]) 1980 F Date Time Provider Department 09/22/24 [facility] DOTY [facility] During your visit today, we recorded the following information about you: Frank Obando RN 09/22/2024 12:36 PM Signed Patient calls to request lab orders be faxed to [facility]. Faxed to [phone] per request. Frank Obando RN Allergies As of Date: 09/22/2024 Noted Allergy Reaction PENICILLINS 08/30/2013 16 - Unknown Date Reviewed: 08/01/2024 Reviewed by: Char Valencia LPN - Fully Assessed Reason for Visit: Orders [011] Prescriptions as of 09/22/2024 - buPROPion (WELLBUTRIN) [...] Status:Closed by FRANK OBANDO on 09/22/24 Normal [facility] CRPon 09-22-2024 C-REACTIVE PROT 5.87 mg/L High 0.0-3.0 [facility] Comment on above: Result Comment: C-Re active Protein (CRP) provides useful information for the diagnosis, therapy and monitoring of inflammatory processes and associated diseases. For the evaluation of Relative Risk for Cardiovascular Disease, a High Sensitivity CRP (HSCRP) should be ordered. Performed By: #### L 501.6710, L500.4050, L100.0100, L501.9520 ####[facility] [address] [place], [place], [id number] Carbon dioxide measurementOr dered By: Hilton Doty on 09-22-2024 CO2 [Moles/Vol] 29.0 mmol/L 21.0-32.0 [facility] Chloride measurementOrdered By: Hilton Doty on 09-22-2024 Chloride [Moles/Vol] 101 mmol/L 98-107 [facility] Comprehensive Metabolic Prof ilon 09-22-2024 Albumin [Mass/Vol] 3.8 g/dL Normal 3.2-5.0 [facility] Comment on above: Performed By: #### L 501.6710, L500.4050, L100.0100, L501.9520 ####[facility] [address] [place], [place], [address] Albumin/Globulin [Mass ratio] 0.9 {ratio} Normal 0.9-2.4 [facility] Comment on above: Performed By: #### L 501.6710, L500.4050, L100.0100, L501.9520 ####[facility] [address] [place], [address] ALK P 83 U/L Normal 45-117 [facility] Comment on above: Performed By: #### L 501.6710, L500.4050, L100.0100, L501.9520 ####[facility] [address] [place], [address] ALT [Catalytic activity/Vol] 22 U/L Normal 13-56 [facility] Comment on above: Performed By: #### L 501.6710, L500.4050, L100.0100, L501.9520 ####[facility] [address] [place], [address] AST [Catalytic activity/Vol] 15 U/L Normal 15-37 [facility] Comment on above: Performed By: #### L 501.6710, L500.4050, L100.0100, L501.9520 ####[facility] [address] [place], [address] Bilirubin [Mass/Vol] 0.50 mg/dL Normal 0.20-1.00 [facility] Comment on above: Result Comment: For patients on eltrombopag therapy, use of Dimension [place] TBIL is not recommended. Performed By: #### L 501.6710, L500.4050, L100.0100, L501.9520 ####[facility] [address] [place], [address] BUN/CRE 15.1 RATIO Normal 10-20 [facility] Comment on above: Performed By: #### L 501.6710, L500.4050, L100.0100, L501.9520 ####[facility] [address] [place], [address] CA,Total 9.4 mg/dL Normal 8.5-10.1 [facility] Comment on above: Performed By: #### L 501.6710, L500.4050, L100.0100, L501.9520 ####[facility] [address] [place], [address] Chloride [Moles/Vol] 101 mmol/L Normal 98-107 [facility] Comment on above: Performed By: #### L 501.6710, L500.4050, L100.0100, L501.9520 ####[facility] [address] [place], [address] CO2 [Moles/Vol] 29.0 mmol/L Normal 21.0-32.0 [facility] Comment on above: Performed By: #### L 501.6710, L500.4050, L100.0100, L501.9520 ####[facility] [address] [place], [address] Creatinine [Mass/Vol] 0.80 mg/dL Normal 0.55-1.02 [facility] Comment on above: Result Comment: The validity of the calculated GFR GFRAA in patients over 70 years has not been determined. Clinical correlation is essential. Performed By: #### L 501.6710, L500.4050, L100.0100, L501.9520 ####[facility] [address] [place], [address] EST GFR - AA 101 mL/min Normal >60 [facility] Comment on above: Result Comment: Afri can Austrian GFR Calc Performed By: #### L 501.6710, L500.4050, L100.0100, L501.9520 ####[facility] [address] [place], [address] GAP 6 Normal 5-15 [facility] Comment on above: Performed By: #### L 501.6710, L500.4050, L100.0100, L501.9520 ####[facility] [address] [place], [address] GFR/1.73 sq M.predicted among non-blacks MDRD (S/P/Bld) [Vol rate/Area] 83 mL/min/{1.73_m2} Normal >60 [facility] Comment on above: Result Comment: Non- GFR Calc Performed By: #### L 501.6710, L500.4050, L100.0100, L501.9520 ####[facility] [address] [place], [address] Globulin (S) [Mass/Vol] 4.1 g/dL Normal 2.2-4.2 [facility] Comment on above: Performed By: #### L 501.6710, L500.4050, L100.0100, L501.9520 ####[facility] [address] [place], [address] Glucose [Mass/Vol] 101 mg/dL Normal 74-106 [facility] Comment on above: Result Comment: Fast ing Glucose result from 100 to 125 mg/dL suggests IMPAIRED HOMEOSTASIS per A.D.A. criteria. Performed By: #### L 501.6710, L500.4050, L100.0100, L501.9520 ####[facility] [address] [place], [address] Potassium [Moles/Vol] 3.8 mmol/L Normal 3.5-5.1 [facility] Comment on above: Performed By: #### L 501.6710, L500.4050, L100.0100, L501.9520 ####[facility] [address] [place], [address] Sodium [Moles/Vol] 136 mmol/L Normal 136-145 [facility] Comment on above: Performed By: #### L 501.6710, L500.4050, L100.0100, L501.9520 ####[facility] [address] [place], [address] T PROT 7.9 g/dL Normal 6.4-8.2 [facility] Comment on above: Performed By: #### L 501.6710, L500.4050, L100.0100, L501.9520 ####[facility] [address] [place], [address] Urea nitrogen [Mass/Vol] 12 mg/dL Normal 7-18 [facility] Comment on above: Performed By: #### L 501.6710, L500.4050, L100.0100, L501.9520 ####[facility] [address] [place], [address] Eosinophil percentageOrdered By: Hilton Doty on 09-22-2024 Eosinophils/100 WBC (Bld) 1.2 % 0-5 [facility] Erythrocyte distribution wid th ratioOrdered By: Hilton Doty on 09-22-2024 Erythrocyte distribution width (RBC) [Ratio] 13.0 % 11.6-14.6 [facility] Erythrocyte distribution wid th standard deviationOrdered By: Hilton Doty on 09-22-2024 Erythrocyte distribution width (RBC) [Entitic vol] 42.7 fL 35.1-43.9 [facility] Erythrocyte distribution width (RBC) [Ratio] 42.7 fl 35.1-43.9 [facility] Estimated glomerular filtrat ion rate (GFR) AmericanOrdered By: Hilton Doty on 09-22-2024 Estimated GFR (MDRD) Amer 101 mL/min >60 [facility] Comment on above: GFR Calc Glomerular filtration rate ( GFR) estimationOrdered By: Hilton Doty on 09-22-2024 Estimated GFR (MDRD) Non-Af Amer 83 mL/min >60 [facility] Comment on above: Non- GFR Calc GFR/1.73 sq M.predicted among non-blacks MDRD (S/P/Bld) [Vol rate/Area] 83 mL/min/{1.73_m2} >60 [facility] Comment on above: Non- GFR Calc Glucose measurementOrdered B y: Hilton Doty on 09-22-2024 Glucose [Mass/Vol] 101 mg/dL 74-106 [facility] Comment on above: Fasting Glucose resu lt from 100 to 125 mg/dL suggests IMPAIRED HOMEOSTASIS per A.D.A. criteria. Hematocrit Auto (Bld) [Volum e fraction]Ordered By: Hilton Doty on 09-22-2024 Hematocrit (Bld) [Volume fraction] 42.1 % 37-47 [facility] Hemoglobin measurementOrdere d By: Hilton Doty on 09-22-2024 Hemoglobin (Bld) [Mass/Vol] 14.2 g/dL 12.0-15.0 [facility] Immature granulocytes/100 WB C Auto (Bld)Ordered By: Hilton Doty on 09-22-2024 Immature granulocytes/100 WBC (Bld) 0.300 % 0.0-0.9 [facility] Comment on above: IG% - Immature Granu locytes (promyelocytes, myelocytes and metamyelocytes) > 1% indicates that a LEFT SHIFT is Present. Laboratory - Chemistry and C hemistry - challengeOrdered By: Hilton Doty on 09-22-2024 AST [Catalytic activity/Vol] 15 U/L 15-37 [facility] Lymphocytes Auto (Unsp spec) [#/Vol]Ordered By: Hilton Doty on 09-22-2024 Lymphocytes (Bld) [#/Vol] 1.27 10*3/uL 0.83-4.51 [facility] Lymphocytes/100 WBC Auto (Un sp spec)Ordered By: Hilton Doty on 09-22-2024 Lymphocytes/100 WBC (Bld) 21.3 % 19-41 [facility] MCV (mean corpuscular volume ) determinationOrdered By: Hilton Doty on 09-22-2024 MCV (RBC) [Entitic vol] 89.2 fL 81-99 [facility] Mean corpuscular hemoglobin (MCH) determinationOrdered By: Hilton Doty on 09-22-2024 MCH (RBC) [Entitic mass] 30.1 pg 27.0-32.0 [facility] Mean corpuscular hemoglobin concentration (MCHC) determinationOrdered By: Hilton Doty on 09-22-2024 MCHC (RBC) [Mass/Vol] 33.7 g/dL 32-36 [facility] Mean platelet volume determi nationOrdered By: Hitlon Doty on 09-22-2024 Platelet mean volume (Bld) [Entitic vol] 9.5 fL 6.2-12.0 [facility] Monocyte percentageOrdered B y: Hilton Doty on 09-22-2024 Monocytes/100 WBC (Bld) 12.2 % High 0-10 [facility] Neutrophil percentageOrdered By: Hilton Doty on 09-22-2024 Neutrophils/100 WBC (Bld) 64.5 % 47-70 [facility] Nucleated red blood cell per centageOrdered By: Hilton Doty on 09-22-2024 Nucleated RBC/100 WBC (Bld) [Ratio] 0 % 0-5 [facility] Platelet countOrdered By: Melissa Doty on 09-22-2024 Platelets (Bld) [#/Vol] 207 10*3/uL 150-450 [facility] Potassium measurementOrdered By: Hilton Doty on 09-22-2024 Potassium [Moles/Vol] 3.8 mmol/L 3.5-5.1 [facility] RBC Auto (Bld) [#/Vol]Ordere d By: Hilton Doty on 09-22-2024 RBC (Bld) [#/Vol] 4.72 10*6/uL 4.2-5.4 [facility] Serum anion gap measurementO rdered By: Hilton Doty on 09-22-2024 Anion gap [Moles/Vol] 6 mmol/L 5-15 [facility] Serum globulin measurementOr dered By: Hilton Doty on 09-22-2024 Globulin (S) [Mass/Vol] 4.1 g/dL 2.2-4.2 [facility] Serum or plasma alanine nieto otransferase (ALT) measurementOrdered By: Hilton Doty on 09-22-2024 ALT [Catalytic activity/Vol] 22 U/L 13-56 [facility] Serum or plasma albumin willie urement (mass/volume)Ordered By: Hilton Doty on 09-22-2024 Albumin [Mass/Vol] 3.8 g/dL 3.2-5.0 [facility] Serum or plasma alkaline rima sphatase measurementOrdered By: Hilton Doty on 09-22-2024 ALP [Catalytic activity/Vol] 83 U/L 45-117 [facility] Serum or plasma calcium willie urement (mass/volume)Ordered By: Hilton Doty on 09-22-2024 Calcium [Mass/Vol] 9.4 mg/dL 8.5-10.1 [facility] Serum or plasma creatinine m easurement (mass/volume)Ordered By: Hilton Doty on 09-22-2024 Creatinine [Mass/Vol] 0.80 mg/dL 0.55-1.02 [facility] Comment on above: The validity of the calculated GFR & GFRAA in patients over 70 years has not been determined. Clinical correlation is essential. Serum or plasma thyroid stim ulating hormone (TSH) measurement (units/volume)Ordered By: Hilton Doty on 09-22-2024 TSH Qn 1.810 uIU/mL 0.358-3.740 [facility] Serum or plasma urea nitroge n measurement (mass/volume)Ordered By: Hilton Doty on 09-22-2024 Urea nitrogen [Mass/Vol] 12 mg/dL 7-18 [facility] Sodium levelOrdered By: Jason Doty on 09-22-2024 Sodium [Moles/Vol] 136 mmol/L 136-145 [facility] TSH QnOrdered By: Hilton de souza on 09-22-2024 Thyroid Stimulating Hormone (TSH) 1.810 uIU/mL 0.358-3.740 [facility] Thyroid Stim Hormone (TSH)on 09-22-2024 TSH 1.810 uIU/mL Normal 0.358-3.740 [facility] Comment on above: Performed By: #### L 501.6710, L500.4050, L100.0100, L501.9520 ####[facility] [address] [place], [place], [id number] Total proteinOrdered By: Clay Doty on 09-22-2024 Protein [Mass/Vol] 7.9 g/dL 6.4-8.2 [facility] White blood cell (WBC) count Ordered By: Hilton Doty on 09-22-2024 WBC (Bld) [#/Vol] 6.0 10*3/uL 4.4-11.0 [facility] MR/BMS.BVSon 09-08-2024 MR/BMS.S [facility] Vascular Surgery 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 Normal [facility] 08-08-2024 [facility] Telephone (FAMOrlandoWS) -- WANDA REYNA ([id number]) 1980 F Date Time Provider Department 08/08/24 [facility] DOT[facility] During your visit today, we recorded the following information about you: Gina Sparks LPN 08/08/2024 11:06 AM Signed Patient calling asking to have Vascular referral faxed to Dr Derek Barone [facility] at [phone]. Printed office visit note, consult, face sheet, insurance card copy,and faxed as requested. So patient can get appt set up. Allergies As of Date: 08/08/2024 Noted Allergy Reaction PENICILLINS 08/30/2013 16 - Unknown Date Reviewed: 08/01/2024 Reviewed by: Char Valencia LPN - Fully Assessed Reason for Visit: fax [facility] referral to [place] [Other] Prescriptions as of 08/08/2024 - buPROPion [...] Encounter Status:Closed by GINA SPARKS on 08/08/24 [facility] CNOVon 08-01-2024 CNOV Office Visit (FAMPWS ) -- WANDA REYNA ([id number]) 1980 F Date Time Provider Department 08/01/24 10:00 AM HILTON DOTY FAMPWS During your visit today, we recorded the following information about you: Temperature Pulse Respiration Blood pressure 97.6 degrees 64/minute 16/minute 130/70 Weight 89.4 kg Hilton Doty DO 08/02/2024 7:20 AM Signed CC: Wanda Reyna is a 44 [...] of these veins surgically by specialist at [facility] where she works Inflammatory polyarthropathy, symptoms have been stable. Use of plaquenil as prescribed. Getting yearly eye examination Edema, use of chlorthalidone medication and potassium supplement Mood, admits to recently being stressed but feels she is in a better job position than previous. She is working with Psychiatrist office Dr. Oliveros at [facility]. She feels that her perimenopausal symptoms are bothering her. She is going to further discuss with OUTER DIAMETER GRINDER as well. PAST MEDICAL HISTORY Diagnosis Date MAXIM positive 09/2014 Inflammatory polyarthropathy (HCC) Kidney stone with stent Raynaud's disease PAST SURGICAL HISTORY Procedure Laterality Date [facility] (MISSED AB 1ST TRIMESTER) 2001 ESWL [...] surgically, she wants to see surgeon at [facility] where she works - CONSULT TO VASCULAR SURGERY 2. Hypokalemia - ICD9: 276.8, ICD10: E87.6 Recheck labs as ordered Continue potassium supplement - COMPREHENSIVE METABOLIC PANEL - COMPLETE BLOOD COUNT AND DIFFERENTIAL - THYROID STIMULATING HORMONE 3. LIVIA (generalized anxiety disorder) - ICD9: 300.02, ICD10: F41.1 Increase dose of wellbutrin D/w OUTER DIAMETER GRINDER regarding perimenopause and how this is also affecting her mood and management of her mood. - BUPROPION HCL 75 MG TABLET 4. Situational depression - ICD9: 309.0, ICD10: F43.21 Increase dose of wellbutrin D/w OUTER DIAMETER GRINDER regarding perimenopause and how this is also affecting her mood and management of her mood. - BUPROPION HCL 75 MG TABLET 5. Obesity, Class I, BMI 30-34.9 - ICD9: 278.00, ICD10: E (more content not included)... Normal [facility] No Panel Informationon 02-07 IMPRESSION: No acute fracture or malalignment Welder Fitter: VICKY Transcribe Date/Time: Feb 08 2024 5:24P Dictated by : JAMMIE HOBBS MD This examination was interpreted and the report reviewed and electronically signed by: JAMMIE HOBBS MD on Feb 08 2024 5:28PM [facility] DIVISION OF RADIOLOGY Radiology Study observation (narrative) [facility] No Panel InformationOrdered By: [facility] Provider on 02-08-2024 [facility] XR Lumbar spine 3 Viewson * * [...] vertebral body osteophytes. DIVISION OF RADIOLOGY Provider, [facility] Mira Gutierrez - 02/08/2024 * * *Final Report* * [...] IMPRESSION IMPRESSION: No acute fracture or malalignment Welder Fitter[facility] Transcribe Date/Time: Feb 08 2024 5:24P Dictated by : JAMMIE HOBBS MD This examination was interpreted and the report reviewed and electronically signed by: JAMMIE HOBBS MD on Feb 08 2024 5:28PM [facility] XR Thoracic spine AP and Lat eral [...] vertebral body osteophytes. DIVISION OF RADIOLOGY Provider, [facility] - 02/08/2024 * * *Final Report* [...] IMPRESSION IMPRESSION: No acute fracture or malalignment Welder Fitter[facility] Transcribe Date/Time: Feb 08 2024 5:24P Dictated by : JAMMIE HOBBS MD This examination was interpreted and the report reviewed and electronically signed by: JAMMIE HOBBS MD on Feb 08 2024 5:28PM [facility] Laboratory - Microbiology an d Antimicrobial susceptibilityon 11-20-2023 SARS-CoV-2 (COVID-19) RNA FERNANDO+probe Ql (Unsp spec) Not detected [facility] No Panel Informationon 11-19 POC Nasal Swab Influenza A,B Not detected [facility] POC Nasal Swab RSV Not detected [facility] Basophil percentageOrdered B y: Priscilla Nieto on 09-29-2023 Hemoglobin (Bld) [Mass/Vol] 12.6 g/dL 12.0-15.0 [facility] WBC (Bld) [#/Vol] 3.3 10*3/uL 4.4-11.0 [facility] Determination of erythrocyte mean corpuscular volume (MCV)Ordered By: Priscilla Nieto on 09-29-2023 MCV (RBC) [Entitic vol] 89.7 fL 81-99 [facility] Erythrocyte distribution wid th ratioOrdered By: Priscilla Nieto on 09-29-2023 Erythrocyte distribution width (RBC) [Ratio] 12.8 % 11.6-14.6 [facility] Erythrocyte distribution wid th standard deviationOrdered By: Priscillamerlin Nieto on 09-29-2023 Erythrocyte distribution width (RBC) [Entitic vol] 41.9 fL 35.1-43.9 [facility] Hematocrit Auto (Bld) [Volum e fraction]Ordered By: Priscilla Nieto on 09-29-2023 Hematocrit (Bld) [Volume fraction] 38.5 % 37-47 [facility] Laboratory - Chemistry and C hemistry - challengeOrdered By: Priscilla Nieto on 09-29-2023 HCG ( test) Ql (U) Negative [facility] Comment on above: Very dilute urine sp ecimens, as indicated by a low specificgravity, may not contain bank representative levels of hCG. If is still suspected, a first morning urinespecimen should be collected 48 hours later and tested. Laboratory - Hematology and Cell countsOrdered By: Priscilla Nieto on 09-29-2023 MCH (RBC) [Entitic mass] 29.4 pg 27.0-32.0 [facility] MCHC (RBC) [Mass/Vol] 32.7 g/dL 32-36 [facility] Platelet mean volume (Bld) [Entitic vol] 10.4 fL 6.2-12.0 [facility] Platelets (Bld) [#/Vol] 131 10*3/uL 150-450 [facility] RBC Auto (Bld) [#/Vol]Ordere d By: Priscilla Nieto on 09-29-2023 RBC (Bld) [#/Vol] 4.29 10*6/uL 4.2-5.4 [facility] Laboratory - Microbiology an d Antimicrobial susceptibilityon 09-26-2023 SARS-CoV-2 (COVID-19) RNA FERNANDO+probe Ql (Unsp spec) Not detected [facility] No Panel Informationon 09-26 POC Nasal Swab Influenza A,B Detected [facility] POC Nasal Swab RSV Not detected [facility] Absolute lymphocyte countOrd ered By: LEO MÉNDEZ on 09-02-2023 Lymphocytes Auto (Unsp spec) [#/Vol] 2.69 10*3/uL 0.83-4.51 [facility] Automated lymphocyte count a s percentage of total leukocytesOrdered By: LEO MÉNDEZ on 09-02-2023 Lymphocytes/100 WBC Auto (Unsp spec) 31.1 % 19-41 [facility] Basophil percentageOrdered B y: LEO MÉNDEZ on 09-02-2023 Basophils/100 WBC (Bld) 0.6 % 0-1 [facility] Eosinophils/100 WBC (Bld) 1.2 % 0-5 [facility] Hemoglobin (Bld) [Mass/Vol] 14.7 g/dL 12.0-15.0 [facility] Monocytes/100 WBC (Bld) 8.9 % 0-10 [facility] Neutrophils (Bld) [#/Vol] 5.0 10*3/uL 2.0-7.7 [facility] Neutrophils/100 WBC (Bld) 58.0 % 47-70 [facility] WBC (Bld) [#/Vol] 8.7 10*3/uL 4.4-11.0 [facility] Determination of erythrocyte mean corpuscular volume (MCV)Ordered By: LEO MÉNDZE on 09-02-2023 MCV (RBC) [Entitic vol] 91.0 fL 81-99 [facility] Erythrocyte distribution wid th ratioOrdered By: LEO MÉNDEZ on 09-02-2023 Erythrocyte distribution width (RBC) [Ratio] 13.1 % 11.6-14.6 [facility] Erythrocyte distribution wid th standard deviationOrdered By: LEO MÉNDEZ on 09-02-2023 Erythrocyte distribution width (RBC) [Entitic vol] 43.1 fL 35.1-43.9 [facility] Hematocrit Auto (Bld) [Volum e fraction]Ordered By: LEO MÉNDEZ on 09-02-2023 Hematocrit (Bld) [Volume fraction] 44.5 % 37-47 [facility] Immature granulocytes/100 WB C Auto (Bld)Ordered By: LEO MÉNDEZ on 09-02-2023 Immature granulocytes/100 WBC (Bld) 0.200 % 0.0-0.9 [facility] Comment on above: IG% - Immature Granu locytes (promyelocytes, myelocytes and metamyelocytes) > 1% indicates that a LEFT SHIFT is Present. Laboratory - Chemistry and C hemistry - challengeOrdered By: LEO MÉNDEZ on 09-02-2023 ALT [Catalytic activity/Vol] 28 U/L 13-56 [facility] Laboratory - Hematology and Cell countsOrdered By: LEO MÉNDEZ on 09-02-2023 MCH (RBC) [Entitic mass] 30.1 pg 27.0-32.0 [facility] MCHC (RBC) [Mass/Vol] 33.0 g/dL 32-36 [facility] Nucleated RBC/100 WBC (Bld) [Ratio] 0 % 0-5 [facility] Platelets (Bld) [#/Vol] 301 10*3/uL 150-450 [facility] No Panel InformationOrdered By: LEO MÉNDEZ on 09-02-2023 Estimated GFR (MDRD) Amer 87 mL/min >60 [facility] Comment on above: GFR Calc Estimated GFR (MDRD) Non-Af Amer 72 mL/min >60 [facility] Comment on above: Non- GFR Calc Platelet mean volume Lai-Ec ker (Bld) [Entitic vol]Ordered By: LEO MÉNDEZ on 09-02-2023 Platelet mean volume (Bld) [Entitic vol] 9.4 fL 6.2-12.0 [facility] RBC Auto (Bld) [#/Vol]Ordere d By: LEO MÉNDEZ on 09-02-2023 RBC (Bld) [#/Vol] 4.89 10*6/uL 4.2-5.4 [facility] Serum or plasma creatinine m easurement (mass/volume)Ordered By: LEO MÉNDEZ on 09-02-2023 Creatinine [Mass/Vol] 0.90 mg/dL 0.55-1.02 [facility] Comment on above: The validity of the calculated GFR & GFRAA in patients over 70 years has not been determined. Clinical correlation is essential. Thin prep Papanicolaou smear with manual screeningOrdered By: LEO MÉNDEZ on 09-02-2023 Thin prep Papanicolaou smear with manual screening 12 U/L 15-37 [facility] Cervical or vaginal specimen microscopic examination by liquid based cytology (reported as document)Ordered By: Nilda Loya on 08-12-2023 Cytology report Cyto stain.thin prep Doc (Cvx/Vag) Comment . [facility] Comment on above: Criteria met, see HP V Genotype results. Cervical or vagninal specime n microscopic examination by cytology stain (reported asOrdered By: Nilda Loya on 08-12-2023 Cytology report Cyto stain Doc (Cvx/Vag) Comment . [facility] Comment on above: The Pap smear is [...] E6+E7 mRNA FERNANDO+probe Ql (Cvx) Negative Negative [facility] Comment on above: Performed at: [facility] - [facility] [address] [id number] Director: Viktoriya Vargas MD, Phone: [phone] at: =G - [facility] [address] [id number] Director: Viktoriya Vargas MD, Phone: [phone] Cervical specimen human cuong lloma virus (HPV) type 16 DNA detection by probe with sigOrdered By: Nilda Loya on 08-12-2023 HPV 16 DNA Probe+sig amp Ql (Cvx) Positive Negative [facility] Detection in cervical specim en of any of human papilloma virus (HPV) 16, 18, 31, 33,Ordered By: Nilda Loya on 08-12-2023 HPV 16+18+31+33+35+39+45+5 1+52+56+58+59+66+68 DNA Probe+sig amp Ql (Cvx) Positive Negative [facility] Comment on above: This nucleic acid am plification test detects fourteen high- risk HPV types (16,18,31,33,35,39,45,51,52,56,58,59,66,68)without differentiation. Laboratory - CytologyOrdered By: Nilda Loya on 08-12-2023 Hatchery Attendant Cyto stain Nom (Cvx/Vag) [ID] Comment . [facility] Comment on above: Delphine Sauer, Cyto technologist (ASCP) Laboratory - Miscellaneous t estsOrdered By: Nilda Loya on 08-12-2023 Service comment (Unsp spec) [Interp] . . [facility] Thin prep Papanicolaou smear with manual screeningOrdered By: Nilda Loya on 08-12-2023 Thin prep Papanicolaou smear with manual screening Comment . [facility] Comment on above: NEGATIVE FOR INTRAEP ITHELIAL LESION OR MALIGNANCY. This liquid based Th inPrep(R) pap test was screened withthe use of an image guided system. Serum hepatitis B virus surf deejay antibody IgG detectionOrdered By: HEALTH ASSESSMENT on 05-12-2023 HBV surface IgG Ql (S) Non-Reactive [facility] Comment on above: Non Reactive: Incons istent with immunity less than <10 mIU/mL Reactive: Consistent with immunity greater than or equal to 10 mIU/mL No Panel InformationOrdered By: [facility] on 02-25-2023 Hepatitis B Surface Antibody Non-Reactive [facility] Comment on above: Non Reactive: Incons istent with immunity less than <10 mIU/mL Reactive: Consistent with immunity greater than or equal to 10 mIU/mL Rubella IgG Antibody Reactive Nonreactive [facility] Comment on above: Antibody Results Int erpretation of Immune Status Non Reactive Presumed Non-Immune Equivocal Equivocal Reactive Presumed Immune Serum Varicella zoster virus IgG antibody assay by immunoassay (units/volume)Ordered By: [facility] on 02-25-2023 VZV IgG IA Qn (S) 1866 index Immune >165 [facility] Comment on above: Negative <135 Equivo chivo 135 - 165 Positive >165A positive result generally indicates exposure to thepathogen or administration of specific immunoglobulins,but it is not indication of active infection or stageof disease. Serum measles virus IgG anti body assay (units/volume)Ordered By: [facility] on 02-25-2023 MeV IgG Qn (S) > 300.0 AU/mL Immune >16.4 [facility] Comment on above: Negative <13.5 Equiv ocal 13.5 - 16.4 Positive >16.4Presence of antibodies to Rubeola is presumptive evidenceof immunity except when acute infection is suspected.Performed at: - [facility] [id number] Director: Gabe Fry PhD, Phone: [phone] Serum mumps virus IgG antibo dy assay (units/volume)Ordered By: [facility] on 02-25-2023 MuV IgG Qn (S) 192.0 AU/mL Immune >10.9 [facility] Comment on above: Negative <9.0 Equivo chivo 9.0 - 10.9 Positive >10.9A positive result generally indicates past exposure toMumps virus or previous vaccination. CBC W Auto Differential pane l (Bld)on 08-28-2022 Basophils (Bld) [#/Vol] 0.04 10*3/uL <0.11 k/uL [facility] Basophils/100 WBC (Bld) 0.7 % [facility] Differential cell count method Nom (Bld) Auto [facility] Eosinophils (Bld) [#/Vol] 0.08 10*3/uL <0.46 k/uL [facility] Eosinophils/100 WBC (Bld) 1.4 % [facility] Erythrocyte distribution width (RBC) [Ratio] 13.0 % 11.5 - 15.0 % [facility] Hematocrit (Bld) [Volume fraction] 42.3 % 36.0 - 46.0 % [facility] Hemoglobin (Bld) [Mass/Vol] 14.2 g/dL 11.5 - 15.5 g/dL [facility] Immature granulocytes (Bld) [#/Vol] <0.10 k/uL [facility] Immature granulocytes/100 WBC (Bld) 0.0 % [facility] Lymphocytes (Bld) [#/Vol] 1.79 10*3/uL 1.00 - 4.00 k/uL [facility] Lymphocytes/100 WBC (Bld) 31.7 % [facility] MCH (RBC) [Entitic mass] 30.4 pg 26.0 - 34.0 pg [facility] MCHC (RBC) [Mass/Vol] 33.6 g/dL 30.5 - 36.0 g/dL [facility] MCV (RBC) [Entitic vol] 90.6 fL 80.0 - 100.0 fL [facility] Monocytes (Bld) [#/Vol] 0.43 10*3/uL <0.87 k/uL [facility] Monocytes/100 WBC (Bld) 7.6 % [facility] Neutrophils (Bld) [#/Vol] 3.31 10*3/uL 1.45 - 7.50 k/uL [facility] Neutrophils/100 WBC (Bld) 58.6 % [facility] Nucleated RBC (Bld) [#/Vol] <0.01 k/uL [facility] Nucleated RBC/100 WBC (Bld) [Ratio] 0.0 /100 WBC [facility] Platelet mean volume (Bld) [Entitic vol] 9.8 fL 9.0 - 12.7 fL [facility] Platelets (Bld) [#/Vol] 250 10*3/uL 150 - 400 k/uL [facility] RBC (Bld) [#/Vol] 4.67 10*6/uL 3.90 - 5.2 0 m/uL [facility] WBC (Bld) [#/Vol] 5.65 10*3/uL 3.70 - 11. 00 k/uL [facility] ESR Westergren method (Bld) [Velocity]on 08-28-2022 ESR (Bld) [Velocity] 12 mm/h 0 - 20 mm/hr [facility] Vital Signs Date Time Vital Sign Value Performing Clinician Facility 05-18-2025 11:35-0400 Body temperature 97.8 [degF] Dr. Hilton Doty DO Work Phone: 9(007)551-841914 [place] [address] 05-18-2025 11:35-0400 Body weight 88.[address] Hilton Doty DO Work Phone: 4(512)232-749114 [place] [address] 05-18-2025 11:35-0400 Diastolic blood pressure 82 mm[Hg] Dr. Hilton Doty DO Work Phone: 1(077)151-772014 [place] [address] 05-18-2025 11:35-0400 Heart rate 67 /min Dr. Hilton Doty DO Work Phone: 3(236)836-471114 [place] [address] 05-18-2025 11:35-0400 Respiratory rate 16 /min Dr. Hilton Doty DO Work Phone: [facility] 05-18-2025 11:35-0400 SaO2% (BldA) [Mass fraction] 98 % Dr. Hilton Doty DO Work Phone: [facility] 05-18-2025 11:35-0400 Systolic blood pressure 136 mm[Hg] Dr. Hilton Doty DO Work Phone: [facility] 05-04-2025 11:51-0400 Body height 167.[address] Hilton Doty DO Work Phone: [facility] 05-04-2025 11:51-0400 Body weight 84.[address] Hilton Doty DO Work Phone: 6(630)319-215949 [address] 05-03-2025 12:57-0400 Body mass index (BMI) [Ratio] 29.9 kg/m2 Dr. Hilton Doty DO Work Phone: 8(872)418-813714 [place] [address] 03-23-2025 08:39-0400 Body temperature 98.2 [degF] Dr. Hilton Doty DO Work Phone: 5(786)587-287436 [place] [address] 03-23-2025 08:39-0400 Body weight 87.[address] Hilton Doty DO Work Phone: 6(768)771-634836 [place] [address] 03-23-2025 08:39-0400 Diastolic blood pressure 72 mm[Hg] Dr. Hilton Doty DO Work Phone: 6(243)516-274036 [place] [address] 03-23-2025 08:39-0400 Heart rate 69 /min Dr. Hilton Doty DO Work Phone: 6(865)720-200236 [place] [address] 03-23-2025 08:39-0400 Respiratory rate 18 /min Dr. Hilton Doty DO Work Phone: 0(700)502-186336 [place] [address] 03-23-2025 08:39-0400 SaO2% (BldA) [Mass fraction] 100 % Dr. Hilton Doty DO Work Phone: 4(616)415-772436 [place] [address] 03-23-2025 08:39-0400 Systolic blood pressure 112 mm[Hg] Dr. Hilton Doty DO Work Phone: 5(307)291-396114 [place] [address] 03-13-2025 15:09-0400 Body mass index (BMI) [Ratio] 30.23 kg/m2 Hilton Doty DO Work Phone: [facility] 03-13-2025 15:09-0400 Body temperature 97.81 [degF] Hilton Doty DO Work Phone: [facility] 03-13-2025 15:09-0400 Body weight 87.54 kg Hilton Doty DO Work Phone: [facility] 03-13-2025 15:09-0400 Diastolic blood pressure 80 mm[Hg] Hilton Doty DO Work Phone: [facility] 03-13-2025 15:09-0400 Heart rate 60 /min Hilton Doty DO Work Phone: [facility] 03-13-2025 15:09-0400 Respiratory rate 12 /min Hilton Doty DO Work Phone: [facility] 03-13-2025 15:09-0400 Systolic blood pressure 120 mm[Hg] Hilton Doty DO Work Phone: [facility] 02-06-2025 13:05-0400 Body temperature 98.4 [degF] Dr. Hilton Doty DO Work Phone: [facility] 02-06-2025 13:05-0400 Body weight 85.[address] Hilton Doty DO Work Phone: 8(432)368-850814 [place] [address] 02-06-2025 13:05-0400 Diastolic blood pressure 80 mm[Hg] Dr. Hilton Doty DO Work Phone: 9(048)243-992914 [place] [address] 02-06-2025 13:05-0400 Heart rate 71 /min Dr. Hilton Doty DO Work Phone: 0(459)353-056614 [place] [address] 02-06-2025 13:05-0400 Respiratory rate 18 /min Dr. Hilton Doty DO Work Phone: 8(507)365-967414 [place] [address] 02-06-2025 13:05-0400 SaO2% (BldA) [Mass fraction] 100 % Dr. Hilton Doty DO Work Phone: [facility] 02-06-2025 13:05-0400 Systolic blood pressure 121 mm[Hg] Dr. Hilton Doty DO Work Phone: 0(909)101-743214 [place] [address] 01-14-2025 10:49-0400 Body mass index (BMI) [Ratio] 29.6 kg/m2 Hilton Doty DO Work Phone: 7(941)731-044920 [place] [address] 01-14-2025 10:49-0400 Body temperature 97 [degF] Hilton Doty DO Work Phone: [facility] 01-14-2025 10:49-0400 Body weight 85.73 kg Hilton Doty DO Work Phone: [facility] 01-14-2025 10:49-0400 Diastolic blood pressure 60 mm[Hg] Hilton Doty DO Work Phone: [facility] 01-14-2025 10:49-0400 Heart rate 80 /min Hilton Doty DO Work Phone: [facility] 01-14-2025 10:49-0400 Respiratory rate 16 /min Hilton Vásquezon DO Work Phone: [facility] 01-14-2025 10:49-0400 Systolic blood pressure 120 mm[Hg] Hilton Doty DO Work Phone: [facility] 01-13-2025 08:07-0400 Body temperature 98.2 [degF] Dr. Hilton Doty DO Work Phone: [facility] 01-13-2025 08:07-0400 Body weight 87.[address] Hilton Doty DO Work Phone: 8(547)592-795714 [place] [address] 01-13-2025 08:07-0400 Diastolic blood pressure 71 mm[Hg] Dr. Hilton Doty DO Work Phone: 4(166)309-828214 [place] [address] 01-13-2025 08:07-0400 Heart rate 65 /min Dr. Hilton Doty DO Work Phone: [facility] 01-13-2025 08:07-0400 Respiratory rate 16 /min Dr. Hilton Doty DO Work Phone: 0(573)982-176314 [place] [address] 01-13-2025 08:07-0400 SaO2% (BldA) [Mass fraction] 100 % Dr. iHlton Doty DO Work Phone: 5(344)965-036214 [place] [address] 01-13-2025 08:07-0400 Systolic blood pressure 122 mm[Hg] Dr. Hilton Doty DO Work Phone: 6(735)442-665914 [place] [address] 01-10-2025 09:01-0400 Body height 167.[address] Hilton Doty DO Work Phone: 0(445)906-797536 [place] [address] 01-10-2025 09:01-0400 Body weight 86.[address] Hilton Doty DO Work Phone: 0(352)565-797036 [place] [address] 01-09-2025 08:47-0400 Body mass index (BMI) [Ratio] 30.7 kg/m2 Dr. Hilton Doty DO Work Phone: 7(947)884-084636 [place] [address] 01-02-2025 09:02-0400 Body height 167.[address] Hilton Doty DO Work Phone: 1(935)633-203436 [place] [address] 12-19-2024 15:59-0400 Body height 167.[address] Hilton Doty DO Work Phone: 9(160)125-476836 [place] [address] 12-19-2024 15:59-0400 Body mass index (BMI) [Ratio] 30.7 kg/m2 Dr. Hilton Doty DO Work Phone: 6(964)344-028636 [place] [address] 12-19-2024 15:59-0400 Body temperature 98.7 [degF] Dr. Hilton Doty DO Work Phone: 1(334)670-510936 [place] [address] 12-19-2024 15:59-0400 Body weight 86.[address] Hilton Doty DO Work Phone: 1(035)449-856036 [place] [address] 12-19-2024 15:59-0400 Diastolic blood pressure 77 mm[Hg] Dr. Hilton Doty DO Work Phone: 4(450)820-955536 [place] [address] 12-19-2024 15:59-0400 Heart rate 63 /min Dr. Hilton Doty DO Work Phone: 9(633)316-461136 [place] [address] 12-19-2024 15:59-0400 Respiratory rate 14 /min Dr. Hilton Doty DO Work Phone: 3(718)302-919136 [place] [address] 12-19-2024 15:59-0400 SaO2% (BldA) [Mass fraction] 100 % Dr. Hilton Doty DO Work Phone: [facility] 12-19-2024 15:59-0400 Systolic blood pressure 120 mm[Hg] Dr. Hilton Doty DO Work Phone: [facility] 12-12-2024 09:31-0400 Body height 167.[address] Hilton Doty DO Work Phone: 7(866)341-085736 [place] [address] 12-12-2024 09:30-0400 Body mass index (BMI) [Ratio] 30.5 kg/m2 Dr. Hilton Doty DO Work Phone: 1(218)238-550836 [place] [address] 12-12-2024 09:30-0400 Body weight 85.[address] Hilton Doty DO Work Phone: 1(390)117-159736 [place] [address] 12-12-2024 09:30-0400 Diastolic blood pressure 80 mm[Hg] Dr. Hilton Doty DO Work Phone: 3(318)635-242736 [place] [address] 12-12-2024 09:30-0400 Systolic blood pressure 125 mm[Hg] Dr. Hilton Doty DO Work Phone: 3(218)619-458536 [place] [address] 11-16-2024 18:51-0400 Body mass index (BMI) [Ratio] 29.82 kg/m2 Hilton Doty DO Work Phone: [facility] 11-16-2024 18:51-0400 Body weight 86.36 kg Hilton Doty DO Work Phone: [facility] 11-16-2024 18:51-0400 Diastolic blood pressure 89 mm[Hg] Hilton Vásquezon DO Work Phone: [facility] 11-16-2024 18:51-0400 Heart rate 60 /min Hilton Doty DO Work Phone: [facility] 11-16-2024 18:51-0400 Respiratory rate 12 /min Hilton Doty DO Work Phone: [facility] 11-16-2024 18:51-0400 Systolic blood pressure 127 mm[Hg] Hilton Doty DO Work Phone: [facility] 11-02-2024 11:44-0400 Body temperature 97.2 [degF] Dr. Hilton Doty DO Work Phone: [facility] 11-02-2024 11:44-0400 Body weight 87.[address] Hilton Doty DO Work Phone: [facility] 11-02-2024 11:44-0400 Diastolic blood pressure 75 mm[Hg] Dr. Hilton Doty DO Work Phone: [facility] 11-02-2024 11:44-0400 Heart rate 70 /min Dr. Hilton Doty DO Work Phone: 2(085)528-837014 [place] [address] 11-02-2024 11:44-0400 Respiratory rate 16 /min Dr. Hilton Doty DO Work Phone: 0(411)107-952714 [place] [address] 11-02-2024 11:44-0400 SaO2% (BldA) [Mass fraction] 100 % Dr. Hilton Doty DO Work Phone: [facility] 11-02-2024 11:44-0400 Systolic blood pressure 135 mm[Hg] Dr. Hilton Doty DO Work Phone: [facility] 10-26-2024 18:03-0400 Body mass index (BMI) [Ratio] 29.76 kg/m2 Hilton Doty DO Work Phone: [facility] 10-26-2024 18:03-0400 Body temperature 97.39 [degF] Hilton Doty DO Work Phone: [facility] 10-26-2024 18:03-0400 Body weight 86.18 kg Hilton Doty DO Work Phone: [facility] 10-26-2024 18:03-0400 Diastolic blood pressure 80 mm[Hg] Hilton Doty DO Work Phone: [facility] 10-26-2024 18:03-0400 Heart rate 76 /min Hilton Doty DO Work Phone: [facility] 10-26-2024 18:03-0400 Respiratory rate 16 /min Hilton Doty DO Work Phone: [facility] 10-26-2024 18:03-0400 Systolic blood pressure 120 mm[Hg] Hilton Doty DO Work Phone: [facility] 10-14-2024 13:23-0400 Body mass index (BMI) [Ratio] 29.35 kg/m2 Rajinder Hinton APRN.AUTO GLASS WORKER Work Phone: [facility] 10-14-2024 13:23-0400 Body weight 85 kg Rajinder Hinton APRN.AUTO GLASS WORKER Work Phone: [facility] 10-14-2024 13:23-0400 Diastolic blood pressure 71 mm[Hg] Rajinder Hinton APRN.AUTO GLASS WORKER Work Phone: [facility] 10-14-2024 13:23-0400 Heart rate 81 /min Rajinder Hinton APRN.AUTO GLASS WORKER Work Phone: [facility] 10-14-2024 13:23-0400 SaO2% (BldA) [Mass fraction] 100 % Rajinder Hinton APRN.AUTO GLASS WORKER Work Phone: [facility] 10-14-2024 13:23-0400 Systolic blood pressure 102 mm[Hg] Rajinder Hinton APRN.AUTO GLASS WORKER Work Phone: [facility] 10-13-2024 22:35-0400 Body temperature 97.8 [degF] Dr. Hilton Doty DO Work Phone: [facility] 10-13-2024 22:35-0400 Diastolic blood pressure 68 mm[Hg] Dr. Hilton Doty DO Work Phone: [facility] 10-13-2024 22:35-0400 Heart rate 71 /min Dr. Hilton Doty DO Work Phone: [facility] 10-13-2024 22:35-0400 Respiratory rate 16 /min Dr. Hilton Doty DO Work Phone: [facility] 10-13-2024 22:35-0400 SaO2% (BldA) [Mass fraction] 99 % Dr. Hilton Doty DO Work Phone: 3(268)590-015036 [place] [address] 10-13-2024 22:35-0400 Systolic blood pressure 113 mm[Hg] Dr. Hilton Doty DO Work Phone: 3(354)042-379736 [place] [address] 10-13-2024 17:15-0400 Body height 167.[address] Hilton Doty DO Work Phone: 6(336)870-319536 [place] [address] 10-13-2024 17:15-0400 Body mass index (BMI) [Ratio] 30.2 kg/m2 Dr. Hilton Doty DO Work Phone: 9(462)625-296336 [place] [address] 10-13-2024 17:15-0400 Body weight 84.[address] Hilton Doty DO Work Phone: 6(444)742-048136 [place] [address] 09-08-2024 11:19-0500 Body temperature 98 [degF] Dr. Hilton Doty DO Work Phone: 9(019)276-893136 [place] [address] 09-08-2024 11:19-0500 Body weight 86.[address] Hilton Doty DO Work Phone: 9(528)930-947536 [place] [address] 09-08-2024 11:19-0500 Diastolic blood pressure 91 mm[Hg] Dr. Hilton Doty DO Work Phone: 1(322)501-793936 [place] [address] 09-08-2024 11:19-0500 Heart rate 71 /min Dr. Hilton Doty DO Work Phone: 0(117)676-023636 [place] [address] 09-08-2024 11:19-0500 Respiratory rate 16 /min Dr. Hilton Doty DO Work Phone: 9(607)398-014536 [place] [address] 09-08-2024 11:19-0500 SaO2% (BldA) [Mass fraction] 99 % Dr. Hilton Doty DO Work Phone: 7(202)196-387536 [place] [address] 09-08-2024 11:19-0500 Systolic blood pressure 136 mm[Hg] Dr. Hilton Doty DO Work Phone: 0(198)878-065536 [place] [address] 08-01-2024 10:12-0500 Body mass index (BMI) [Ratio] 30.85 kg/m2 Hilton Doty DO Work Phone: [facility] 08-01-2024 10:12-0500 Body temperature 97.59 [degF] Hilton Doty DO Work Phone: [facility] 08-01-2024 10:12-0500 Body weight 89.36 kg Hilton Doty DO Work Phone: [facility] 08-01-2024 10:12-0500 Diastolic blood pressure 70 mm[Hg] Hilton Doty DO Work Phone: [facility] 08-01-2024 10:12-0500 Heart rate 64 /min Hilton Doty DO Work Phone: [facility] 08-01-2024 10:12-0500 Respiratory rate 16 /min Hilton Doty DO Work Phone: [facility] 08-01-2024 10:12-0500 Systolic blood pressure 130 mm[Hg] Hilton Doty DO Work Phone: [facility] 04-25-2024 10:16-0400 Body mass index (BMI) [Ratio] 29.76 kg/m2 Hilton Doty DO Work Phone: [facility] 04-25-2024 10:16-0400 Body temperature 97 [degF] Hilton Doty DO Work Phone: [facility] 04-25-2024 10:16-0400 Body weight 86.18 kg Hilton Doty DO Work Phone: [facility] 04-25-2024 10:16-0400 Diastolic blood pressure 80 mm[Hg] Hilton Doty DO Work Phone: [facility] 04-25-2024 10:16-0400 Heart rate 64 /min Hilton Doty DO Work Phone: [facility] 04-25-2024 10:16-0400 Respiratory rate 12 /min Hilton Doty DO Work Phone: [facility] 04-25-2024 10:16-0400 Systolic blood pressure 120 mm[Hg] Hilton Doty DO Work Phone: [facility] 02-08-2024 15:59-0400 Body mass index (BMI) [Ratio] 31.01 kg/m2 Doris Suppan RISK CONTROL FIELD REPRESENTATIVE.ASSISTANT PRODUCTION EDITOR Work Phone: [facility] 02-08-2024 15:59-0400 Body weight 89.81 kg Doris Suppan RISK CONTROL FIELD REPRESENTATIVE.ASSISTANT PRODUCTION EDITOR Work Phone: [facility] 02-08-2024 15:59-0400 Diastolic blood pressure 64 mm[Hg] Doris Suppan RISK CONTROL FIELD REPRESENTATIVE.ASSISTANT PRODUCTION EDITOR Work Phone: [facility] 02-08-2024 15:59-0400 Heart rate 64 /min Doris Suppan RISK CONTROL FIELD REPRESENTATIVE.ASSISTANT PRODUCTION EDITOR Work Phone: [facility] 02-08-2024 15:59-0400 Respiratory rate 16 /min Doris Suppan RISK CONTROL FIELD REPRESENTATIVE.ASSISTANT PRODUCTION EDITOR Work Phone: [facility] 02-08-2024 15:59-0400 SaO2% (BldA) [Mass fraction] 99 % Doris Suppan RISK CONTROL FIELD REPRESENTATIVE.ASSISTANT PRODUCTION EDITOR Work Phone: [facility] 02-08-2024 15:59-0400 Systolic blood pressure 108 mm[Hg] Doris Suppan RISK CONTROL FIELD REPRESENTATIVE.ASSISTANT PRODUCTION EDITOR Work Phone: [facility] 01-20-2024 19:11-0400 Body mass index (BMI) [Ratio] 30.07 kg/m2 Hilton Doty DO Work Phone: [facility] 01-20-2024 19:11-0400 Body temperature 97 [degF] Hilton Doty DO Work Phone: [facility] 01-20-2024 19:11-0400 Body weight 87.09 kg Hilton Doty DO Work Phone: [facility] 01-20-2024 19:11-0400 Diastolic blood pressure 60 mm[Hg] Hilton Doty DO Work Phone: [facility] 01-20-2024 19:11-0400 Heart rate 60 /min Hilton Doty DO Work Phone: [facility] 01-20-2024 19:11-0400 Respiratory rate 16 /min Hilton Doty DO Work Phone: [facility] 01-20-2024 19:11-0400 Systolic blood pressure 100 mm[Hg] Hilton Doty DO Work Phone: [facility] 11-25-2023 16:07-0400 Body height 170.[address] Hilton Doty Work Phone: [facility] 11-25-2023 16:07-0400 Body weight 87.[address] Hilton Doty Work Phone: [facility] 11-20-2023 14:46-0400 Body mass index (BMI) [Ratio] 31.3 kg/m2 Dr. Hilton Doty Work Phone: [facility] 11-20-2023 14:46-0400 Body temperature 97.3 [degF] Dr. Hilton Doty Work Phone: [facility] 11-20-2023 14:46-0400 Body weight 87.[address] Hilton Doty Work Phone: [facility] 11-20-2023 14:46-0400 Heart rate 77 /min Dr. Hilton Doty Work Phone: [facility] 11-20-2023 14:46-0400 Respiratory rate 16 /min Dr. Hilton Doty Work Phone: [facility] 11-20-2023 14:46-0400 SaO2% (BldA) [Mass fraction] 99 % Dr. Hilton Doty Work Phone: [facility] 10-21-2023 18:33-0400 Body temperature 97 [degF] Hilton Doty DO Work Phone: [facility] 10-21-2023 18:33-0400 Body weight 89.81 kg Hilton Doty DO Work Phone: [facility] 10-21-2023 18:33-0400 Diastolic blood pressure 80 mm[Hg] Hilton Doty DO Work Phone: [facility] 10-21-2023 18:33-0400 Heart rate 80 /min Hilton Doty DO Work Phone: [facility] 10-21-2023 18:33-0400 Respiratory rate 16 /min Hilton Villatororison DO Work Phone: [facility] 10-21-2023 18:33-0400 Systolic blood pressure 120 mm[Hg] Hilton Villatororison DO Work Phone: 4(532)659-549020 [place] [address] 10-14-2023 10:16-0400 Body mass index (BMI) [Ratio] 31.1 kg/m2 Dr. Hilton Doty Work Phone: 1(935)201-205036 [place] [address] 10-14-2023 10:16-0400 Body weight 90.[address] Hilton Doty Work Phone: 5(363)921-127936 [place] [address] 10-14-2023 10:16-0400 Diastolic blood pressure 77 mm[Hg] Dr. Hilton Doty Work Phone: 8(717)208-176736 [place] [address] 10-14-2023 10:16-0400 Systolic blood pressure 121 mm[Hg] Dr. Hilton Doty Work Phone: 8(826)251-327836 [place] [address] 09-29-2023 12:03-0500 Body temperature 97.7 [degF] Dr. Hilton Doty Work Phone: 4(486)080-605436 [place] [address] 09-29-2023 12:03-0500 Diastolic blood pressure 72 mm[Hg] Dr. Hilton Doty Work Phone: 4(797)741-390036 [place] [address] 09-29-2023 12:03-0500 Heart rate 56 /min Dr. Hilton Doty Work Phone: 3(439)310-751136 [place] [address] 09-29-2023 12:03-0500 Respiratory rate 16 /min Dr. Hilton Doty Work Phone: 7(666)975-131414 [place] [address] 09-29-2023 12:03-0500 SaO2% (BldA) [Mass fraction] 97 % Dr. Hilton Doty Work Phone: 4(614)229-341236 [place] [address] 09-29-2023 12:03-0500 Systolic blood pressure 102 mm[Hg] Dr. Hilton Doty Work Phone: 5(478)941-663836 [place] [address] 09-29-2023 08:42-0500 Body mass index (BMI) [Ratio] 31.6 kg/m2 Dr. Hilton Doty Work Phone: 1(141)319-779136 [place] [address] 09-29-2023 08:42-0500 Body weight 88.[address] Hilton Doty Work Phone: 6(847)914-978136 [facility] [place] [address] 09-26-2023 13:20-0500 Body mass index (BMI) [Ratio] 30.2 kg/m2 Dr. Hilton Doty Work Phone: 6(941)377-824836 [place] [address] 09-26-2023 13:20-0500 Body temperature 98.2 [degF] Dr. Hilton Doty Work Phone: 0(759)557-942436 [place] [address] 09-26-2023 13:20-0500 Body weight 87.[address] Hilton Doty Work Phone: 9(719)243-597836 [place] [address] 09-26-2023 13:20-0500 Diastolic blood pressure 62 mm[Hg] Dr. Hilton Doty Work Phone: 7(040)900-226536 [place] [address] 09-26-2023 13:20-0500 Heart rate 82 /min Dr. Hilton Doty Work Phone: 0(113)093-210736 [place] [address] 09-26-2023 13:20-0500 Respiratory rate 16 /min Dr. Hilton Doty Work Phone: 5(956)732-277536 [place] [address] 09-26-2023 13:20-0500 SaO2% (BldA) [Mass fraction] 97 % Dr. Hilton Doty Work Phone: 8(825)428-087836 [place] [address] 09-26-2023 13:20-0500 Systolic blood pressure 100 mm[Hg] Dr. Hilton Doty Work Phone: 1(290)376-109136 [place] [address] 09-24-2023 08:32-0500 Body mass index (BMI) [Ratio] 30.5 kg/m2 Dr. Hilton Doty Work Phone: 5(141)069-484736 [place] [address] 09-24-2023 08:32-0500 Body weight 88.[address] Hilton Doty Work Phone: 6(156)314-566436 [place] [address] 09-24-2023 08:32-0500 Diastolic blood pressure 71 mm[Hg] Dr. Hilton Doty Work Phone: 6(571)913-568136 [place] [address] 09-24-2023 08:32-0500 Systolic blood pressure 114 mm[Hg] Dr. Hilton Doty Work Phone: 6(843)177-801236 [place] [address] 09-14-2023 13:33-0500 Body height 170.[address] Hilton Doty Work Phone: 4(921)184-593336 [place] [address] 09-14-2023 13:33-0500 Body mass index (BMI) [Ratio] 31.2 kg/m2 Dr. Hilton Doty Work Phone: 1(247)981-547836 [place] [address] 09-14-2023 13:33-0500 Body weight 90.[address] Hilton Doty Work Phone: 7(418)121-717036 [place] [address] 09-14-2023 13:33-0500 Diastolic blood pressure 85 mm[Hg] Dr. Hilton Doty Work Phone: 9(684)801-951836 [place] [address] 09-14-2023 13:33-0500 Systolic blood pressure 131 mm[Hg] Dr. Hilton oDty Work Phone: 8(706)082-498136 [place] [address] 08-12-2023 13:06-0500 Body height 170.[address] Hilton Doty Work Phone: 7(804)585-367136 [place] [address] 08-12-2023 13:06-0500 Body mass index (BMI) [Ratio] 31 kg/m2 Dr. Hilton Doty Work Phone: 9(200)666-385236 [place] [address] 08-12-2023 13:06-0500 Body weight 89.[address] Hilton Doty Work Phone: 7(479)260-266336 [place] [address] 08-12-2023 13:06-0500 Diastolic blood pressure 70 mm[Hg] Dr. Hilton Doty Work Phone: 8(378)677-888336 [place] [address] 08-12-2023 13:06-0500 Systolic blood pressure 130 mm[Hg] Dr. Hilton Doty Work Phone: 6(860)597-212936 [place] [address] 06-11-2023 11:53-0500 Body height 170.[address] Hilton Doty Work Phone: 3(436)343-062836 [place] [address] 06-11-2023 11:37-0500 Body mass index (BMI) [Ratio] 30.9 kg/m2 Dr. Hilton Doty Work Phone: 4(498)664-835836 [place] [address] 06-11-2023 11:37-0500 Body weight 89.[address] Hilton Doty Work Phone: 2(042)994-667136 [place] [address] 06-11-2023 11:37-0500 Diastolic blood pressure 74 mm[Hg] Dr. Hilton Doty Work Phone: 3(535)967-064136 [place] [address] 06-11-2023 11:37-0500 Systolic blood pressure 122 mm[Hg] Dr. Hilton Doty Work Phone: 1(575)580-129536 [place] [address] 06-03-2023 17:55-0400 Body temperature 98.4 [degF] Hilton Villatororison DO Work Phone: [facility] 06-03-2023 17:55-0400 Body weight 90.72 kg Hilton Doty DO Work Phone: [facility] 06-03-2023 17:55-0400 Diastolic blood pressure 80 mm[Hg] Hilton Doty DO Work Phone: [facility] 06-03-2023 17:55-0400 Heart rate 64 /min Hilton Doty DO Work Phone: [facility] 06-03-2023 17:55-0400 Respiratory rate 16 /min Hilton Doty DO Work Phone: [facility] 06-03-2023 17:55-0400 Systolic blood pressure 120 mm[Hg] Hilton Doty DO Work Phone: [facility] 03-02-2023 14:20-0400 Body temperature 97.9 [degF] Hilton Doty DO Work Phone: [facility] 03-02-2023 14:20-0400 Body weight 88.91 kg Hilton Doty DO Work Phone: [facility] 03-02-2023 14:20-0400 Diastolic blood pressure 70 mm[Hg] Hilton Doty DO Work Phone: [facility] 03-02-2023 14:20-0400 Heart rate 76 /min Hilton Doty DO Work Phone: [facility] 03-02-2023 14:20-0400 Respiratory rate 12 /min Hilton Doty DO Work Phone: [facility] 03-02-2023 14:20-0400 Systolic blood pressure 120 mm[Hg] Hilton Doty DO Work Phone: [facility] 11-24-2022 14:00-0400 Body temperature 98.01 [degF] Hilton Doty DO Work Phone: [facility] 11-24-2022 14:00-0400 Body weight 90.27 kg Hilton Doty DO Work Phone: [facility] 11-24-2022 14:00-0400 Diastolic blood pressure 74 mm[Hg] Hilton Doty DO Work Phone: [facility] 11-24-2022 14:00-0400 Heart rate 64 /min Hilton Doty DO Work Phone: [facility] 11-24-2022 14:00-0400 Respiratory rate 16 /min Hilton Doty DO Work Phone: [facility] 11-24-2022 14:00-0400 Systolic blood pressure 130 mm[Hg] Hilton Doty DO Work Phone: [facility] 10-24-2022 11:05-0400 Body temperature 97 [degF] Hilton Doty DO Work Phone: [facility] 10-24-2022 11:05-0400 Body weight 88.91 kg Hilton Doty DO Work Phone: [facility] 10-24-2022 11:05-0400 Diastolic blood pressure 80 mm[Hg] Hilton Doty DO Work Phone: [facility] 10-24-2022 11:05-0400 Heart rate 72 /min Hilton Doty DO Work Phone: [facility] 10-24-2022 11:05-0400 Respiratory rate 16 /min Hilton Doty DO Work Phone: [facility] 10-24-2022 11:05-0400 Systolic blood pressure 136 mm[Hg] Hilton Doty DO Work Phone: [facility] 08-28-2022 11:15-0500 Body height 170.2 cm Priscilla Junior MD Work Phone: [facility] 08-28-2022 11:15-0500 Body temperature 97.59 [degF] Priscilla Junior MD Work Phone: [facility] 08-28-2022 11:15-0500 Body weight 88 kg Priscilla Junior MD Work Phone: [facility] 08-28-2022 11:15-0500 Diastolic blood pressure 75 mm[Hg] Priscilla Junior MD Work Phone: [facility] 08-28-2022 11:15-0500 Heart rate 61 /min Priscilla Junior MD Work Phone: [facility] 08-28-2022 11:15-0500 Systolic blood pressure 118 mm[Hg] Priscilla Junior MD Work Phone: [facility] 07-23-2022 18:41-0500 Body temperature 97.59 [degF] Hilton Doty DO Work Phone: [facility] 07-23-2022 18:41-0500 Body weight 87.54 kg Hilton Doty DO Work Phone: [facility] 07-23-2022 18:41-0500 Diastolic blood pressure 80 mm[Hg] Hilton Doty DO Work Phone: [facility] 07-23-2022 18:41-0500 Heart rate 76 /min Hilton Doty DO Work Phone: [facility] 07-23-2022 18:41-0500 Respiratory rate 12 /min Hilton Doty DO Work Phone: [facility] 07-23-2022 18:41-0500 Systolic blood pressure 120 mm[Hg] Hilton Doty DO Work Phone: [facility] 04-23-2022 17:44-0400 Body temperature 97.3 [degF] Hilton Doty DO Work Phone: [facility] 04-23-2022 17:44-0400 Body weight 86.64 kg Hilton Doty DO Work Phone: [facility] 04-23-2022 17:44-0400 Diastolic blood pressure 70 mm[Hg] Hilton Doty DO Work Phone: [facility] 04-23-2022 17:44-0400 Heart rate 76 /min Hilton Doty DO Work Phone: [facility] 04-23-2022 17:44-0400 Respiratory rate 16 /min Hilton Doty DO Work Phone: [facility] 04-23-2022 17:44-0400 Systolic blood pressure 120 mm[Hg] Hilton Doty DO Work Phone: [facility] 02-12-2022 16:06-0400 Body height 168.9 cm Delphine Floyd APRN.[employer] WORKER Work Phone: [facility] 02-12-2022 16:06-0400 Body weight 89.72 kg Delphine Floyd APRN.[employer] WORKER Work Phone: [facility] 02-12-2022 16:06-0400 Diastolic blood pressure 70 mm[Hg] Delphine Floyd APRN.[employer] WORKER Work Phone: [facility] 02-12-2022 16:06-0400 Systolic blood pressure 112 mm[Hg] Delphine Floyd APRN.[employer]ASS WORKER Work Phone: [facility] 01-20-2022 08:50-0400 Body temperature 97.7 [degF] Hilton Doty DO Work Phone: [facility] 01-20-2022 08:50-0400 Body weight 89.81 kg Hilton Doty DO Work Phone: [facility] 01-20-2022 08:50-0400 Diastolic blood pressure 70 mm[Hg] Hilton Doty DO Work Phone: [facility] 01-20-2022 08:50-0400 Heart rate 80 /min Hilton Doty DO Work Phone: [facility] 01-20-2022 08:50-0400 Respiratory rate 16 /min Hilton Doty DO Work Phone: [facility] 01-20-2022 08:50-0400 Systolic blood pressure 110 mm[Hg] Hilton Doty DO Work Phone: [facility] Encounters Encounter Date Encounter Type Care Provider Facility Start: 06-09-2025 End: 06-09-2025 ambulatory HILTON DOTY Facility:[facility] Start: 06-07-2025 End: 06-07-2025 Emergency department patient visit Hilton Doty Facility:[facility] Start: 05-18-2025 End: 05-18-2025 Patient encounter procedure Laura CEE -[facility] Work Phone: Start: 05-18-2025 End: 05-18-[address] Hilton Doty DO Work Phone: -[facility] Start: 05-08-2025 Non-patient / Non-visit Dr. Derek bosch MD -[facility] Start: 05-08-2025 End: 05-08-[address] Derek Barone MD -Cardiovascular Services Work Phone: Start: 05-08-2025 End: 05-08-[address] Hilton Doty DO Work Phone: -Cardiovascular Services Start: 05-04-2025 ambulatory Derek Barone Facility:[facility] Start: 05-04-2025 Non-patient / Non-visit Dr. Derek bosch MD -[facility] Start: 05-04-2025 End: 05-04-2025 Admission to same day surgery center Dr. Derek Barone MD -[facility]/Special Procedures Work Phone: Start: 05-04-2025 End: 05-04-[address] Hilton Doty DO Work Phone: -[facility]/Special Procedures Start: 03-29-2025 End: 03-29-[address] Hilton Doty DO Work Phone: -Laboratory Start: 03-29-2025 End: 03-29-2025 Patient encounter procedure Laura CEE -Laboratory Work Phone: Start: 03-29-2025 End: 03-29-2025 ambulatory Laura Rai Facility:[facility] Start: 03-23-2025 End: 03-23-2025 Patient encounter procedure Laura CEE -[facility] Work Phone: Start: 03-23-2025 End: 03-23-[address] Hilton Doty DO Work Phone: -[facility] Start: 03-19-2025 End: 03-20-2025 Refill Lisa Doll APRN.CNP Work Phone: [facility] Comment on above: Refill Request Start: 03-15-2025 End: 03-17-2025 ambulatory Hilton Doty DO Work Phone: [facility] Comment on above: Talking with Abisai Start: 03-15-2025 End: 03-31-2025 Telephone encounter Hilton Doty DO Work Phone: [facility] Comment on above: Insurance Authorizat ion Patient Question (Re garding conversation with specialist Dr. Barone's office at [facility]) Start: 03-13-2025 End: 03-13-[address] Hilton Doty DO Work Phone: -Laboratory Start: 03-13-2025 End: 03-13-[address] Hilton Doty DO -Laboratory Work Phone: Start: 03-13-2025 End: 03-13-2025 Patient encounter procedure Hilton Doty DO Work Phone: [facility] Comment on above: Leg pain, bilateral (Primary Dx); Varicose veins of both legs with edema; Inflammatory polyarthropathy (HCC); Inflammatory arthritis; Left leg pain; Leg heaviness; Obesity, Class I, BMI 30-34.9; Dyslipidemia Start: 03-13-2025 End: 03-13-2025 ambulatory HILTON DOTY Facility:[facility] Start: 03-13-2025 End: 03-13-2025 ambulatory Hilton Doty Facility:[facility] Start: 02-13-2025 ambulatory Hilton Doty Facilit y:[facility] Start: 02-06-2025 End: 02-06-2025 Telephone encounter Hilton Doty DO Work Phone: [facility] Comment on above: Results Refill Request Start: 02-06-2025 End: 02-06-[address] Derek Barone MD -[facility] Work Phone: Start: 02-06-2025 End: 02-06-[address] Hilton Doty DO Work Phone: -[facility] Start: 02-01-2025 ambulatory Hilton Doty Facilit y:[facility] Start: 02-01-2025 Non-patient / Non-visit Dr. Lupillo martinez MD -[facility] Start: 02-01-2025 End: 02-01-[address] Hilton Doty DO Work Phone: -Pulmonary Services/Neurology Start: 02-01-2025 End: 02-01-[address] Hilton Doty DO -Pulmonary Services/Neurology Work Phone: Start: 02-01-2025 End: 02-01-2025 ambulatory Hilton Doty Facility:[facility] Start: 01-14-2025 End: 01-14-[address] Hilton Doty DO Work Phone: [facility] Work Phone: Start: 01-14-2025 End: 01-14-[address] Hilton Doty DO -Radiology [facility] Work Phone: Start: 01-14-2025 End: 01-14-2025 Patient encounter procedure Hilton Doty DO Work Phone: [facility] Comment on above: Left leg pain (Prima ry Dx); Leg heaviness; Varicose veins of both legs with edema; LIVIA (generalized anxiety disorder); Perimenopausal symptoms; Inflammatory polyarthropathy (HCC); Dyslipidemia; Fatigue, unspecified type Start: 01-14-2025 End: 01-14-2025 ambulatory HILTON DOTY Facility:[facility] Start: 01-13-2025 End: 01-13-2025 Patient encounter procedure Laura CEE -[facility] Work Phone: Start: 01-13-2025 End: 01-14-[address] Hilton Doty DO Work Phone: [facility] Work Phone: Start: 01-12-2025 End: 01-12-[address] Hilton Doty DO Work Phone: [facility] Work Phone: Start: 01-12-2025 End: 01-12-[address] Kay Khan MD -Laboratory Work Phone: Start: 01-12-2025 End: 01-12-2025 ambulatory Kay Khan Facility:[facility] Start: 01-10-2025 ambulatory Derek Barone Facility:[facility] Start: 01-10-2025 Non-patient / Non-visit Dr. Derek bosch MD -[facility] Start: 01-10-2025 End: 01-10-2025 Admission to same day surgery center Dr. Derek Barone MD -[facility]/Special Procedures Work Phone: Start: 01-10-2025 End: 01-10-[address] Hilton Doty DO Work Phone: [facility] Work Phone: Start: 01-02-2025 End: 01-30-[address] Hilton Doty DO -Nutritional Services Work Phone: Start: 01-02-[address] Tameka Doty DO -Nutritional Services Work Phone: Start: 01-02-2025 End: 01-30-[address] Hilton Doty DO Work Phone: -Nutritional Services Start: 12-30-2024 Non-patient / Non-visit Dr. Derek bocsh MD -[facility] Start: 12-30-2024 End: 12-30-[address] Hilton Doty DO Work Phone: [facility] Work Phone: Start: 12-30-2024 End: 12-30-2024 Patient encounter procedure Laura CEE -Cardiovascular Services Work Phone: Start: 12-30-2024 End: 01-02-2025 Telephone encounter Hilton Doty DO Work Phone: [facility] Comment on above: Patient Update Start: 12-30-2024 End: 12-30-2024 ambulatory Laura Rai Facility:[facility] Start: 12-19-2024 End: 12-19-[address] Derek Barone MD -[facility] Work Phone: Start: 12-19-2024 End: 12-19-[address] Hilton Doty DO Work Phone: [facility] Work Phone: Start: 12-12-2024 End: 12-12-[address] Hilton Doty DO Work Phone: [facility] Work Phone: Start: 12-12-2024 End: 12-12-[address] Priscilla Mart DO -Laboratory Specimen Work Phone: Start: 12-12-2024 End: 12-12-[address] Priscilla Mart DO -[facility] Work Phone: Start: 12-12-2024 End: 12-12-[address] Priscilla Mart DO [facility] Start: 12-12-2024 End: 12-12-2024 ambulatory Priscilla Mart Facility:[facility] Start: 12-12-2024 End: 12-12-2024 ambulatory Priscilla Mart Facility:[facility] Start: 11-28-2024 End: 11-30-2024 ambulatory Hilton Doty Facility:[facility] Start: 11-28-2024 End: 11-30-[address] Hilton Doty DO -Nutritional Services Work Phone: Start: 11-19-2024 ambulatory Hilton Doty Facilit y:[facility] Start: 11-17-2024 End: 11-17-2024 Telephone encounter Hilton Doty DO Work Phone: [facility] Comment on above: Insurance Authorizat ion Start: 11-16-2024 End: 11-16-2024 Patient encounter procedure Hilton Doty DO Work Phone: [facility] Comment on above: LIVIA (generalized anx iety disorder) (Primary Dx); Obesity, Class I, BMI 30-34.9; Inflammatory polyarthropathy (HCC); Dyslipidemia; Inflammatory arthritis; Perimenopausal symptoms; SOB (shortness of breath); Varicose veins of both lower extremities with complications Start: 11-16-2024 End: 11-16-2024 ambulatory HILTON DOTY Facility:[facility] Start: 11-11-2024 End: 11-11-2024 Telephone encounter Hilton Doty DO Work Phone: Podiatry Comment on above: Results (CT Chest) Start: 11-10-2024 End: 11-10-[address] Hilton Doty DO Work Phone: [facility] Work Phone: Start: 11-10-2024 End: 11-10-[address] Hilton Doty DO -Pulmonary Services/Neurology Work Phone: Start: 11-10-2024 End: 11-10-2024 ambulatory Hilton Doty Facility:[facility] Start: 11-02-2024 End: 11-02-2024 Patient encounter procedure Laura CEE -[facility] Work Phone: Start: 11-02-2024 End: 11-02-2024 ambulatory Laura Rai Facility:[facility] Start: 10-28-2024 End: 11-04-2024 Telephone encounter Hilton Doty DO Work Phone: [facility] Comment on above: Insurance Authorizat ion Start: 10-26-2024 End: 10-26-2024 Patient encounter procedure Hilton Doty DO Work Phone: [facility] Comment on above: SOB (shortness of br eath) (Primary Dx); Wheezing; Hypokalemia; Varicose veins of both lower extremities with complications; LIVIA (generalized anxiety disorder); Perimenopausal symptoms; Inflammatory arthritis; Dyslipidemia; Inflammatory polyarthropathy (HCC); Fatigue, unspecified type; Vitamin D deficiency; Rosacea; Raynaud's phenomenon without gangrene Start: 10-26-2024 End: 10-26-2024 ambulatory HILTON DOTY Facility:[facility] Start: 10-26-2024 Non-patient / Non-visit [facility] Start: 10-26-2024 End: 10-26-[address] Hilton Doty DO Work Phone: [facility] Work Phone: Start: 10-26-2024 End: 10-26-2024 Patient encounter procedure Rajinder GOINS -Cardiovascular Services Work Phone: Start: 10-26-2024 End: 10-26-2024 ambulatory Rajinder Hinton Facility:[facility] Start: 10-17-2024 End: 10-17-2024 Telephone encounter Rajinder Hinton APRN.[employer] WORKER Work Phone: [facility] Comment on above: Results Start: 10-14-2024 End: 10-17-2024 Telephone encounter Rajinder Hinton APRN.[employer] WORKER Work Phone: [facility] Comment on above: Patient Question Start: 10-14-2024 End: 10-14-2024 Patient encounter procedure Rajinder Hinton APRN.[employer] WORKER Work Phone: [facility] Comment on above: Bilateral leg edema (Primary Dx); SOB (shortness of breath); Obesity, Class I, BMI 30-34.9 Start: 10-14-2024 End: 10-14-2024 ambulatory RAJINDER HINTON Facility:[facility] Start: 10-14-2024 Non-patient / Non-visit Dr. Derek bosch MD -[facility] Start: 10-14-2024 End: 10-14-[address] Hilotn Doty DO Work Phone: [facility] Work Phone: Start: 10-14-2024 End: 10-14-2024 Patient encounter procedure Laura CEE -Cardiovascular Services Work Phone: Start: 10-13-2024 End: 10-13-2024 Emergency department patient visit Dr. Hilton Doty DO Work Phone: -Emergency Department Work Phone: Start: 10-13-2024 End: 10-14-2024 ambulatory Hilton Doty DO Work Phone: [facility] Comment on above: Shortness of Breath Start: 10-07-2024 End: 10-20-2024 Refill Hilton Doty DO Work Phone: [facility] Comment on above: Refill Request Results Start: 10-03-2024 ambulatory Nilda Loya HOSE OPERATOR Facil ity:[facility] Start: 09-26-2024 End: 09-26-[address] Hilton Doty DO Work Phone: [facility] Work Phone: Start: 09-26-2024 End: 09-26-2024 Patient encounter procedure Nilda Loya HOSE OPERATOR-C -Outpatient Breast Imaging Work Phone: Start: 09-26-2024 End: 09-26-2024 ambulatory Nilda Loya HOSE OPERATOR Facility:[facility] Start: 09-22-2024 End: 09-22-[address] Hilton Doty DO -Laboratory Work Phone: Start: 09-22-2024 End: 09-22-2024 Telephone encounter Hilton Doty DO Work Phone: [facility] Comment on above: Orders Start: 09-21-2024 End: 09-22-2024 ambulatory Hilton Doty Facility:[facility] Start: 09-21-2024 Non-patient / Non-visit Dr. Derek bosch MD -[facility] Start: 09-21-2024 End: 09-21-2024 Patient encounter procedure Laura CEE -Cardiovascular Services Work Phone: Start: 09-21-2024 End: 09-21-2024 ambulatory Laura Rai Facility:[facility] Start: 09-08-2024 End: 09-08-2024 Patient encounter procedure Laura CEE -[facility] Work Phone: Start: 09-08-2024 End: 09-08-2024 ambulatory Hilton Doty Facility:[facility] Start: 08-08-2024 End: 08-08-2024 Telephone encounter Hilton Doty DO Work Phone: [facility] Comment on above: fax Vas referral to [facility] Start: 08-01-2024 End: 08-01-2024 Patient encounter procedure Hilton Doty DO Work Phone: [facility] Comment on above: Varicose veins of vinnie th lower extremities with complications (Primary Dx); Hypokalemia; LIVIA (generalized anxiety disorder); Situational depression; Obesity, Class I, BMI 30-34.9; Inflammatory polyarthropathy (HCC); Dyslipidemia; Inflammatory arthritis; Perimenopausal symptoms Start: 08-01-2024 End: 08-01-2024 ambulatory HILTON DOTY Facility:[facility] Start: 07-01-2024 End: 07-01-2024 Refill Anna Sheikh LIDIA Work Phone: [facility] Comment on above: Refill Request Start: 05-12-2024 End: 05-19-2024 Telephone encounter Hilton Doty DO Work Phone: [facility] Comment on above: Patient Question Start: 05-11-2024 End: 05-16-2024 ambulatory Hilton Doty DO Work Phone: [facility] Comment on above: Last appt Start: 04-27-2024 End: 04-27-2024 Telephone encounter Hilton Vásquezon DO Work Phone: [facility] Comment on above: Results Start: 04-25-2024 End: 04-25-2024 Patient encounter procedure Hilton Villatororison DO Work Phone: [facility] Comment on above: Nausea (Primary Dx); SOB (shortness of breath); Hypokalemia; Fatigue, unspecified type; Inflammatory arthritis; Bilateral leg edema; Situational depression; Obesity, Class I, BMI 30-34.9; Inflammatory polyarthropathy (HCC); Dyslipidemia Start: 04-01-2024 End: 04-01-2024 Refill Hilton Liu Doty DO Work Phone: [facility] Comment on above: Refill Request Start: 03-17-2024 Refill Hilton Noe Don malia DO Work Phone: [facility] Comment on above: Refill Request Start: 02-08-2024 End: 02-08-2024 Subsequent hospital visit by physician Tristian [facility] Work Phone: Radiology Comment on above: Lower thoracic back pain [M54.6] Start: 02-08-2024 End: 02-08-2024 Office outpatient visit 15 minutes Doris Mendez APRN.ASSISTANT PRODUCTION EDITOR Work Phone: [facility] Comment on above: Lower thoracic back pain (Primary Dx); Acute low back pain with sciatica, sciatica laterality unspecified, unspecified back pain laterality Start: 01-20-2024 End: 01-20-2024 Patient encounter procedure Hilton Doty DO Work Phone: [facility] Comment on above: Dyslipidemia (Primar y Dx); LIVIA (generalized anxiety disorder); Inflammatory polyarthropathy (HCC); Obesity, Class I, BMI 30-34.9; Bilateral leg edema; Vitamin D deficiency; Situational depression Start: 12-30-2023 Refill Hilton finley DO Work Phone: [facility] Comment on above: Refill Request Start: 11-25-2023 End: 12-01-[address] Hilton Doty Work Phone: [facility] Work Phone: Start: 11-25-2023 End: 12-01-[address] Hilton Doty Work Phone: [facility]Nutritional Services Work Phone: Start: 11-20-2023 End: 11-20-[address] Hilton Doty Work Phone: [facility] Work Phone: Start: 10-22-2023 Patient Msg [facility] Provider Family Sorin Shields Comment on above: Orders Start: 10-21-2023 End: 10-21-2023 Patient encounter procedure Hilton Doty DO Work Phone: [facility] Comment on above: Inflammatory polyart hropathy (HCC) (Primary Dx); Abnormal mammogram of right breast; Obesity, Class I, BMI 30-34.9; Inflammatory arthritis; Dyslipidemia; LIVIA (generalized anxiety disorder); Raynaud's phenomenon without gangrene; Vitamin D deficiency; Rosacea Start: 10-21-2023 Telephone encounter Hilton nunez DO Work Phone: [facility] Start: 10-14-2023 End: 10-14-[address] Hilton Doty Work Phone: [facility] Work Phone: Start: 10-05-2023 Telephone encounter Ale Mancia MD Work Phone: Rheumatology Comment on above: Patient Question Start: 09-29-2023 Non-patient / Non-visit Dr. Melissa Doty Work Phone: [facility] Start: 09-29-2023 End: 09-29-2023 Admission to same day surgery center Dr[facility] Hilton [facility] Start: 09-26-2023 End: 09-26-[address] Hilton Doty Work Phone: [facility] Work Phone: Start: 09-24-2023 End: 09-24-[address] Hilotn Doty Work Phone: [facility] Work Phone: Start: 09-15-2023 Chart abstracting Leo helton APRN.CNP Work Phone: Rheumatology Comment on above: Abstract (PLQ eye ex am ) Start: 09-14-2023 End: 09-14-[address] Hilton Doty Work Phone: [facility] Work Phone: Start: 09-14-2023 End: 09-14-[address] Hilton Doty Work Phone: [facility]-Laboratory, Specimen Work Phone: Start: 09-14-2023 Telephone encounter lAe Mancia MD Work Phone: Rheumatology Comment on above: Patient Question; Jaye hyde Update Patient Question Start: 09-14-2023 End: 09-14-[address] Hilton Doty Work Phone: [facility] Work Phone: Start: 09-03-2023 Chart abstracting Leo helton APRN.CNP Work Phone: Rheumatology Comment on above: Abstract (Outside la b results ) Start: 09-02-2023 End: 09-02-[address] Hilton Doty Work Phone: [facility] Work Phone: Start: 09-02-2023 End: 09-02-[address] Hilton Doty Work Phone: [facility] Work Phone: Start: 08-12-2023 End: 08-12-[address] Hilton Doty Work Phone: [facility] Work Phone: Start: 08-12-2023 End: 08-12-[address] Hilton [facility] Work Phone: Start: 08-12-2023 End: 08-12-[address] Hilton Doty Work Phone: [facility] Work Phone: Start: 07-10-2023 Refill Priscilla Junior MD Work Phone: Rheumatology Comment on above: Refill Request Start: 07-09-2023 End: 07-09-[address] Hilton Doty Work Phone: [facility] Work Phone: Start: 07-09-2023 End: 07-09-[address] Hilton Doty Work Phone: [facility]-Ultrasound, [facility] Work Phone: Start: 06-15-2023 Telephone encounter Hilton nunez DO Work Phone: [facility] Comment on above: Results Start: 06-11-2023 End: 06-11-[address] Hilton Doty Work Phone: [facility] Work Phone: Start: 06-11-2023 End: 06-11-[address] Hilton Doty Work Phone: [facility] Work Phone: Start: 06-11-2023 End: 06-11-[address] Hilton Doty Work Phone: [facility] Work Phone: Start: 06-09-2023 End: 06-09-[address] Hilton Doty Work Phone: [facility] Work Phone: Start: 06-09-2023 End: 06-09-[address] Hilton Doty Work Phone: [facility]-Outpatient Breast Imaging Work Phone: Start: 06-03-2023 End: 06-03-2023 Patient encounter procedure Hilton Doty DO Work Phone: [facility] Comment on above: LIVIA (generalized anx iety disorder) (Primary Dx); Bilateral leg edema; Need for influenza vaccination; Inflammatory polyarthropathy (HCC); Obesity, Class III, BMI 40-49.9 (morbid obesity) (HCC); Situational depression; Encounter for screening mammogram for malignant neoplasm of breast; Dyslipidemia; Obesity, Class I, BMI 30-34.9; Varicose veins of both lower extremities with pain Start: 05-12-[address] Hilton Doty Work Phone: [facility]Laboratory Work Phone: Start: 05-04-2023 Refill Hilton finley DO Work Phone: [address] [place] [address] Comment on above: Refill Request Start: 04-13-2023 Refill Priscilla Junior MD Work Phone: Rheumatology Comment on above: Refill Request; Allyn ent Update; Patient lost her insurance Start: 04-03-2023 Refill Hilton finley DO Work Phone: [facility] Comment on above: Refill Request Start: 03-02-2023 End: 03-02-2023 Patient encounter procedure Hilton Doty DO Work Phone: [facility] Comment on above: Dyslipidemia (Primar y Dx); Inflammatory polyarthropathy (HCC); Obesity, Class I, BMI 30-34.9; LIVIA (generalized anxiety disorder); Raynaud's phenomenon without gangrene; Bilateral leg edema; Vitamin D deficiency Start: 02-25-[address] Hilton Doty Work Phone: [facility] Start: 02-25-[address] Tameka Doty Work Phone: [facility] Start: 01-27-2023 Telephone encounter Hilton starkanthony DO Work Phone: [facility] Comment on above: Patient Update; Allyn ent Question Start: 01-06-2023 Refill Priscilla Junior MD Work Phone: Rheumatology Comment on above: Refill Request Start: 12-24-2022 ambulatory Hilton finley DO Work Phone: [facility] Start: 12-01-2022 ambulatory Hilton filney DO Work Phone: [facility] Comment on above: lab results Start: 12-01-2022 E-mail encounter fro m caregiver Hilton Vásquezon DO Work Phone: [facility] Start: 11-24-2022 End: 11-24-2022 Patient encounter procedure Hilton Villatororison DO Work Phone: Family [facility] Comment on above: LIVIA (generalized anx iety disorder) (Primary Dx); Inflammatory polyarthropathy (HCC); Dyslipidemia; Obesity, Class I, BMI 30-34.9; Raynaud's phenomenon without gangrene; Situational depression Start: 10-24-2022 End: 10-24-2022 Patient encounter procedure Hilton Liu Doty DO Work Phone: [facility] Comment on above: Dyslipidemia (Primar y Dx); Inflammatory polyarthropathy (HCC); Obesity, Class I, BMI 30-34.9; Hot flashes; Bilateral leg edema Start: 10-08-2022 Telephone encounter Hilton nunez DO Work Phone: [facility] Comment on above: Appointment Start: 09-12-2022 ambulatory Priscilla Junior MD Work Phone: Rheumatology Comment on above: Lab results Start: 09-12-2022 E-mail encounter rachel toledo caregiver Priscilla Junior MD Work Phone: [facility] Start: 08-28-2022 End: 08-28-2022 Patient encounter procedure Priscilla Junior MD Work Phone: Rheumatology Comment on above: 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); Inflammatory arthritis; Encounter for long-term (current) use of medications; Facial rash; Sicca syndrome (HCC) Start: 07-29-2022 Telephone encounter Hilton nunez DO Work Phone: [facility] Comment on above: Medication Problem Start: 07-28-2022 ambulatory Hilton finley DO Work Phone: [facility] Start: 07-28-2022 Follow-up encounter Hilton nunez DO Work Phone: [facility] Comment on above: Regarding qsymia fro m follow up visit Start: 07-23-2022 End: 07-23-2022 Patient encounter procedure Hilton Doty DO Work Phone: [facility] Comment on above: Dyslipidemia (Primar y Dx); LIVIA (generalized anxiety disorder); Inflammatory polyarthropathy (HCC); Obesity, Class I, BMI 30-34.9; Rosacea; Bilateral leg edema Start: 06-25-2022 Chart abstracting Leo helton APRN.[facility] Work Phone: Rheumatology Comment on above: Abstract (PLQ eye ex am 05/20/2022) Start: 05-19-2022 Refill Hilton finley DO Work Phone: [facility] Comment on above: Refill Request Start: 04-23-2022 End: 04-23-2022 Patient encounter procedure Hilton Doty DO Work Phone: [facility] Comment on above: LIVIA (generalized anx iety disorder) (Primary Dx); Obesity, Class III, BMI 40-49.9 (morbid obesity) (HCC); Inflammatory polyarthropathy (HCC) Start: 02-12-2022 End: 02-12-2022 Patient encounter procedure Delphine Floyd APRN.[facility] Work Phone: OB/Gynecology Comment on above: Encounter for gyneco logical examination with abnormal finding (Primary Dx); Pain due to intrauterine contraceptive device (IUD), initial encounter (HCC); Postcoital bleeding; Vaginal discharge Start: 02-12-2022 End: 02-12-2022 Patient encounter status Delphine Floyd APRN.AUTO GLASS WORKER Work Phone: OB/Gynecology Start: 02-01-2022 Refill Hilton finley DO Work Phone: [facility] Start: 01-20-2022 End: 01-20-2022 Patient encounter procedure Hilton Doty DO Work Phone: [facility] Comment on above: Dyslipidemia (Primar y Dx); Encounter for screening mammogram for malignant neoplasm of breast; LIVIA (generalized anxiety disorder); Eczematous dermatitis of upper eyelids of both eyes; Inflammatory polyarthropathy (HCC); Bilateral leg edema; Obesity, Class I, BMI 30-34.9 Start: 01-06-2022 Telephone encounter Hilton nunez DO Work Phone: [facility] Comment on above: Medication Problem Start: 12-20-2021 Refill Anna hinojosa RISK CONTROL FIELD REPRESENTATIVEChekoAUTO GLASS WORKER Work Phone: [facility] Comment on above: Refill Request Start: 12-13-2021 Telephone encounter Ale Mancia MD Work Phone: Rheumatology Comment on above: Medication Question Procedures Date Procedure Procedure Detail Performing Clinician Start: 03-29-[address] Hilton Doty DO Work Phone: Comment on above: Result: c.1601G>A (p .[id number]) - Not DetectedThis result is not associated with an increased risk for venousthromboembolism. See Additional Clinical Information andComments.Additional Clinical Information: Venous thromboembolism is a multifactorial diseaseinfluenced by genetic, environmental, and circumstantialrisk factors. The c.1601G>A (p. [id number]) variant in theF5 gene, commonly referred to [...] F2 c.*97G>Avariant and Factor V Leiden (PMID: [id number]). Additionalrisk factors include but are not limited [...] for health careproviders to discuss results at [phone] ([phone]).Test Details: Variant Analyzed: c.1601G>A (p. [id number]), referredto as Factor V LeidenMethods/Limitations: DNA analysis [...] was developed and its performancecharacteristics determined by [facility]. It has not beencleared or approved by the Food and Drug Administration.References: Radha Helton, Gloria PENN, Tushar R, Jean WW, Alejandro JH;[facility] Professional Practice and Guidelines Committee.Addendum: [employer] consensusstatement on factor V Leiden mutation testing. Lindsey Med.2020Oct 05. doi: 10.1038/[id number]-s. PMID:33382191. Mitch GUERRERO. Factor V Leiden Thrombophilia. 1998December 14(Updated 2017Aug 06). In: Riaz MP, Robb HH, Todd RA,et al., editors. Elizabeth(R) (Internet). [place] ([place]):formerly [facility]; 6599-5462. Availablefrom: https://www.ncbi.nlm.nih.gov/books/UPD5887/ Darek Helton, Gloria PENN, Daryl X, Vishnu B, Lia EB, Kell P,Michele CS; [facility] Laboratory Manager Utilities Committee.Venous thromboembolism laboratory testing (factor V Leidenand factor II c. *97G>A), 2018 update: a technical standardof the [employer] and Genomics([facility]). Lindsey Med. 2018 Jul;20(12): 5306-2523. doi:10.1038/[id number]-t. Epub 2017May 07. PMID: [id number]. Start: 03-13-[address] [...] spine lumbosac ral 2/3 views Doris Mendez APRN.CNP Work Phone: Start: 07-09-[address] [...] Author Start: 01-18-2027 Lipid panel Lipid Screening [facility] Start: 01-04-2026 HPV TESTING HPV TESTING [facility] Start: 01-04-2026 PAP TESTING PAP TESTING [facility] Start: 01-04-2026 Screening for malignant neoplasm of cervix [facility] Start: 08-28-2025 Diabetes Screening Diabetes Screening [facility] Start: 06-09-2025 End: 06-09-2025 Patient encounter procedure 06/09/2025 11:00 AM EST Office Visit [facility] [address] [place] [address] Hilton Doty DO [address] [place], [place] [id number] 3 month follow up [facility] Comment on above: 3 month follow up Start: 05-18-2025 End: 05-18-2025 Patient encounter procedure Venous insufficiency [facility] Work Phone: Start: 05-04-2025 Patient discharge [facility] Start: 04-03-2025 Influenza vaccination Influenza Vaccine (#1) [facility] Start: 03-20-2025 End: 03-20-2025 Patient encounter procedure 03/20/2025 1:40 PM EDT Office Visit Family [facility] [place] [address] [place] [address] Hilton Doty DO [address] [place], [place] [id number] follow up: anxiety and medication Family Evelia Shields Comment on above: follow up: anxiety and medication Start: 03-13-2025 End: 06-11-2025 C reactive protein [Mass/volume] in Serum or Plasma C-REACTIVE PROTEIN Lab Routine Leg pain, bilateral Varicose veins of both legs with edema Inflammatory polyarthropathy (HCC) Inflammatory arthritis Expected: 03/13/2025, Expires: 06/11/2025 [facility] Work Phone: Comment on above: Expected: 03/13/2025, Expires: Start: 03-13-2025 End: 06-11-2025 Erythrocyte sedimentation rate SEDIMENTATION RATE, WESTERGREN Lab Routine Leg pain, bilateral Varicose veins of both legs with edema Inflammatory polyarthropathy (HCC) Inflammatory arthritis Expected: 03/13/2025, Expires: 06/11/2025 [facility] Comment on above: Expected: 03/13/2025, Expires: Start: 03-13-2025 End: 06-11-2025 HYPERCOAG DIAG PNL HYPERCOAG DIAG PNL Lab Routine Leg pain, bilateral Varicose veins of both legs with edema Inflammatory polyarthropathy (HCC) Inflammatory arthritis Expected: 03/13/2025, Expires: 06/11/2025 [facility] Comment on above: Expected: 03/13/2025, Expires: Start: 02-02-2025 Screening for malignant neoplasm of colon [facility] Start: 01-24-2025 Urine microalbumin profile [facility] Start: 01-11-2025 Patient discharge [facility] Start: 11-16-2024 End: 11-16-2024 Patient encounter procedure 11/16/2024 7:00 PM EDT Office Visit [facility] [address] [place] [address] Hilton Doty DO [address] [place] [address] Follow up [facility] Comment on above: Follow up Start: 10-26-2024 End: 10-26-2024 Patient encounter procedure 10/26/2024 6:20 PM EDT Office Visit Family Evelia Shields [address] [place] [address] Hilton Doty DO [address] [place], [place] [id number] 3 month follow up [facility] Comment on above: 3 month follow up Start: 10-26-2024 End: 01-25-2025 25-hydroxyvitamin D3 [Mass/volume] in Serum or Plasma VITAMIN D 25 HYDROXY Lab Routine Vitamin D deficiency Expected: 10/26/2024, Expires: 01/25/2025 [facility] Comment on above: Expected: 10/26/2024, Expires: Start: 10-26-2024 End: 01-25-2025 C reactive protein [Mass/volume] in Serum or Plasma C-REACTIVE PROTEIN Lab Routine Inflammatory arthritis Inflammatory polyarthropathy (HCC) Expected: 10/26/2024, Expires: 01/25/2025 [facility] Comment on above: Expected: 10/26/2024, Expires: Start: 10-26-2024 End: 01-25-2025 CBC W Auto Differential panel - Blood COMPLETE BLOOD COUNT AND DIFFERENTIAL Lab Routine Perimenopausal symptoms Fatigue, unspecified type Expected: 10/26/2024, Expires: 01/25/2025 [facility] Comment on above: Expected: 10/26/2024, Expires: Start: 10-26-2024 End: 01-25-2025 Cobalamin (Vitamin B12) [Mass/volume] in Serum or Plasma VITAMIN B12 Lab Routine Inflammatory arthritis Inflammatory polyarthropathy (HCC) Fatigue, unspecified type Expected: 10/26/2024, Expires: 01/25/2025 [facility] Comment on above: Expected: 10/26/2024, Expires: Start: 10-26-2024 End: 01-25-2025 Comprehensive metabolic 2000 panel - Serum or Plasma COMPREHENSIVE METABOLIC PANEL Lab Routine Perimenopausal symptoms Fatigue, unspecified type Expected: 10/26/2024, Expires: 01/25/2025 [facility] Comment on above: Expected: 10/26/2024, Expires: Start: 10-26-2024 End: 01-25-2025 Iron and Iron binding capacity panel - Serum or Plasma IRON AND TIBC Lab Routine Perimenopausal symptoms Inflammatory arthritis Raynaud's phenomenon without gangrene Expected: 10/26/2024, Expires: 01/25/2025 [facility] Comment on above: Expected: 10/26/2024, Expires: Start: 10-26-2024 End: 01-25-2025 Thyrotropin [Units/volume] in Serum or Plasma THYROID STIMULATING HORMONE Lab Routine Perimenopausal symptoms Fatigue, unspecified type Expected: 10/26/2024, Expires: 01/25/2025 [facility] Comment on above: Expected: 10/26/2024, Expires: Start: 10-26-2024 End: 01-25-2025 Thyroxine (T4) free [Mass/volume] in Serum or Plasma T4 FREE/FREE THYROXINE Lab Routine Perimenopausal symptoms Fatigue, unspecified type Expected: 10/26/2024, Expires: 01/25/2025 [facility] Comment on above: Expected: 10/26/2024, Expires: Start: 10-14-2024 End: 01-13-2025 Natriuretic peptide.B prohormone N-Terminal [Mass/volume] in Serum or Plasma NT PRO BNP Lab Routine Bilateral leg edema Expected: 10/14/2024, Expires: 01/13/2025 [facility] Work Phone: Comment on above: Expected: 10/14/2024, Expires: Start: 10-13-2024 [facility] Start: 10-13-2024 [facility] Start: 08-01-2024 End: 10-31-2024 C reactive protein [Mass/volume] in Serum or Plasma C-REACTIVE PROTEIN Lab Routine Inflammatory polyarthropathy (HCC) Expected: 08/01/2024, Expires: 10/31/2024 [facility] Comment on above: Expected: 08/01/2024, Expires: Start: 08-01-2024 End: 10-31-2024 CBC W Auto Differential panel - Blood COMPLETE BLOOD COUNT AND DIFFERENTIAL Lab Routine Hypokalemia Expected: 08/01/2024, Expires: 10/31/2024 [facility] Comment on above: Expected: 08/01/2024, Expires: Start: 08-01-2024 End: 10-31-2024 Comprehensive metabolic 2000 panel - Serum or Plasma COMPREHENSIVE METABOLIC PANEL Lab Routine Hypokalemia Expected: 08/01/2024, Expires: 10/31/2024 [facility] Work Phone: Comment on above: Expected: 08/01/2024, Expires: Start: 08-01-2024 End: 10-31-2024 Thyrotropin [Units/volume] in Serum or Plasma THYROID STIMULATING HORMONE Lab Routine Hypokalemia Expected: 08/01/2024, Expires: 10/31/2024 [facility] Comment on above: Expected: 08/01/2024, Expires: Start: 08-01-2024 End: 08-01-2024 Patient encounter procedure 08/01/2024 10:00 AM EST [facility] [address] [facility] [place] [id number] Hilton Doty DO [address] [facility] [place] [id number] 3 month follow up [facility] Comment on above: 3 month follow up Start: 06-03-2024 Covid-19 Vaccine ( season) Covid-19 Vaccine () [facility] Comment on above: Postponed from 04/03/2023 (Declined at t his time) Start: 04-27-2024 End: 07-27-2024 Potassium [Moles/volume] in Serum or Plasma POTASSIUM Lab Routine Hypokalemia Expected: 04/27/2024, Expires: 07/27/2024 [facility] Work Phone: Comment on above: Expected: 04/27/2024, Expires: Start: 04-25-2024 End: 07-25-2024 25-hydroxyvitamin D3 [Mass/volume] in Serum or Plasma VITAMIN D 25 HYDROXY Lab Routine Fatigue, unspecified type Expected: 04/25/2024, Expires: 07/25/2024 [facility] Comment on above: Expected: 04/25/2024, Expires: Start: 04-25-2024 End: 07-25-2024 CBC W Auto Differential panel - Blood COMPLETE BLOOD COUNT AND DIFFERENTIAL Lab Routine SOB (shortness of breath) Expected: 04/25/2024, Expires: 07/25/2024 [facility] Comment on above: Expected: 04/25/2024, Expires: Start: 04-25-2024 End: 07-25-2024 Cobalamin (Vitamin B12) [Mass/volume] in Serum or Plasma VITAMIN B12 Lab Routine Fatigue, unspecified type Expected: 04/25/2024, Expires: 07/25/2024 [facility] Comment on above: Expected: 04/25/2024, Expires: Start: 04-25-2024 End: 07-25-2024 Comprehensive metabolic 2000 panel - Serum or Plasma COMPREHENSIVE METABOLIC PANEL Lab Routine Hypokalemia Expected: 04/25/2024, Expires: 07/25/2024 [facility] Comment on above: Expected: 04/25/2024, Expires: Start: 04-25-2024 End: 07-25-2024 Lipase [Enzymatic activity/volume] in Serum or Plasma LIPASE Lab Routine Nausea Expected: 04/25/2024, Expires: 07/25/2024 [facility] Comment on above: Expected: 04/25/2024, Expires: Start: 04-25-2024 End: 07-25-2024 Thyrotropin [Units/volume] in Serum or Plasma THYROID STIMULATING HORMONE Lab Routine Nausea Expected: 04/25/2024, Expires: 07/25/2024 [facility] Work Phone: Comment on above: Expected: 04/25/2024, Expires: Start: 04-25-2024 End: 04-25-2024 Patient encounter procedure 04/25/2024 10:00 AM EDT Office Visit Family Evelia Shields [address] [place] [address] Hilton Doty DO [address] [place] [address] Follow up [facility] Comment on above: Follow up Start: 04-03-2024 Covid-19 Vaccine ( season) Covid-19 Vaccine ( season) [facility] Start: 04-03-2024 Covid-19 Vaccine ( season) Covid-19 Vaccine () [facility] Start: 04-03-2024 Influenza vaccination Influenza Vaccine (#1) [facility] Start: 01-20-2024 End: 01-20-2024 Patient encounter procedure 01/20/2024 6:40 PM EDT Office Visit [facility] [address] [place] [address] Hilton Doty DO [address] [place] [address] Follow up [facility] Comment on above: Follow up Start: 09-29-2023 Anesthesia vaginal procedure w/biopsy nos ANESTH VAGINAL PROCEDURES [facility] Start: 09-29-2023 Endometrial abltj thermal w/o hysteroscopic guid ENDOMETR ABLATE THERMAL [facility] Start: 09-29-2023 Patient discharge [facility] Start: 09-29-2023 Procedure discontinued [facility] Start: 09-29-2023 Ambulation without limitation [facility] Start: 09-29-2023 Medical regimen orders management [facility] Start: 09-29-2023 Medication education [facility] Start: 09-29-2023 Taking patient vital signs [facility] Start: 09-29-2023 Vital signs measurements [facility] Start: 09-29-2023 [facility] Start: 08-12-2023 Liquid based cervical cytology screening [facility] Start: 04-03-2023 Influenza vaccination [facility] Start: 01-30-2023 Influenza vaccination INFLUENZA (#1) [facility] Comment on above: Postponed from 04/03/2022 (Declined at t his time) Start: 10-24-2022 End: 12-24-2022 Progesterone [Mass/volume] in Serum or Plasma PROGESTERONE BLD Lab Routine Hot flashes Expected: 10/24/2022, Expires: 12/24/2022 [facility] Work Phone: Comment on above: Expected: 10/24/2022, Expires: Start: 10-24-2022 End: 12-24-2022 TESTOSTERONE, FREE AND TOTAL TESTOSTERONE, FREE AND TOTAL Lab Routine Hot flashes Expected: 10/24/2022, Expires: 12/24/2022 [facility] Work Phone: Comment on above: Expected: 10/24/2022, Expires: Start: 10-24-2022 End: 12-24-2022 Thyrotropin [Units/volume] in Serum or Plasma TSH BLD Lab Routine Hot flashes Expected: 10/24/2022, Expires: 12/24/2022 [facility] Work Phone: Comment on above: Expected: 10/24/2022, Expires: Start: 10-24-2022 End: 12-24-2022 Thyroxine (T4) free [Mass/volume] in Serum or Plasma T4 FREE/FREE THYROX Lab Routine Hot flashes Expected: 10/24/2022, Expires: 12/24/2022 [facility] Work Phone: Comment on above: Expected: 10/24/2022, Expires: 3 Start: 10-24-2022 End: 12-24-2022 Triiodothyronine (T3) Free [Mass/volume] in Serum or Plasma T3 FREE BLD Lab Routine Hot flashes Expected: 10/24/2022, Expires: 12/24/2022 [facility] Work Phone: Comment on above: Expected: 10/24/2022, Expires: 3 Start: 08-28-2022 End: 10-28-2022 Aldolase [Enzymatic activity/volume] in Serum or Plasma ALDOLASE BLD Lab Routine Undifferentiated connective tissue disease (HCC) Expected: 08/28/2022, Expires: 10/28/2022 [facility] Work Phone: Comment on above: Expected: 08/28/2022, Expires: 3 Start: 08-28-2022 End: 10-28-2022 MAXIM BY IFA WITH REFLEX [facility] Work Phone: Comment on above: Expected: 08/28/2022, Expires: 3 Start: 08-28-2022 End: 10-28-2022 C reactive protein [Mass/volume] in Serum or Plasma [facility] Work Phone: Comment on above: Expected: 08/28/2022, Expires: 3 Start: 08-28-2022 End: 10-28-2022 Centromere Ab [Presence] in Serum by Immunofluorescence [facility] Work Phone: Comment on above: Expected: 08/28/2022, Expires: 3 Start: 08-28-2022 End: 10-28-2022 Complement C3 [Mass/volume] in Serum or Plasma [facility] Work Phone: Comment on above: Expected: 08/28/2022, Expires: 3 Start: 08-28-2022 End: 10-28-2022 Complement C4 [Mass/volume] in Serum or Plasma [facility] Work Phone: Comment on above: Expected: 08/28/2022, Expires: 3 Start: 08-28-2022 End: 10-28-2022 Comprehensive metabolic 2000 panel - Serum or Plasma [facility] Work Phone: Comment on above: Expected: 08/28/2022, Expires: 3 Start: 08-28-2022 End: 10-28-2022 Creatine kinase [Enzymatic activity/volume] in Serum or Plasma CK CREATINE KINASE Lab Routine Undifferentiated connective tissue disease (HCC) Expected: 08/28/2022, Expires: 10/28/2022 [facility] Work Phone: Comment on above: Expected: 08/28/2022, Expires: 3 Start: 08-28-2022 End: 10-28-2022 IMMUNOFIXATION SCREEN, SERUM [facility] Work Phone: Comment on above: Expected: 08/28/2022, Expires: 3 Start: 08-28-2022 End: 10-28-2022 KAPPA/DIEGO,FREE,SER [facility] Work Phone: Comment on above: Expected: 08/28/2022, Expires: 3 Start: 08-28-2022 End: 10-28-2022 Lactate dehydrogenase [Enzymatic activity/volume] in Serum or Plasma LD LACTATE DEHYDRO Lab Routine Undifferentiated connective tissue disease (HCC) Expected: 08/28/2022, Expires: 10/28/2022 [facility] Work Phone: Comment on above: Expected: 08/28/2022, Expires: 3 Start: 08-28-2022 End: 10-28-2022 MONOCLONAL PROT UR W/INTERP [facility] Work Phone: Comment on above: Expected: 08/28/2022, Expires: 3 Start: 08-28-2022 End: 10-28-2022 PM-SCL-100 IgG Ab [Units/volume] in Serum [facility] Work Phone: Comment on above: Expected: 08/28/2022, Expires: 3 Start: 08-28-2022 End: 10-28-2022 POLYMYOSITIS AND DERMATOMYOSITIS PANEL [facility] Work Phone: Comment on above: Expected: 08/28/2022, Expires: 3 Start: 08-28-2022 End: 10-28-2022 PROTEIN ELECT RND UR W/[facility] Work Phone: Comment on above: Expected: 08/28/2022, Expires: 3 Start: 08-28-2022 End: 10-28-2022 PROTEIN ELECTROPHORESIS SERUM W/INTERP [facility] Work Phone: Comment on above: Expected: 08/28/2022, Expires: 3 Start: 08-28-2022 End: 10-28-2022 Protein/Creatinine [Mass Ratio] in Urine [facility] Work Phone: Comment on above: Expected: 08/28/2022, Expires: 3 Start: 08-28-2022 End: 10-28-2022 Rheumatoid factor [Units/volume] in Serum or Plasma [facility] Work Phone: Comment on above: Expected: 08/28/2022, Expires: 3 Start: 08-28-2022 End: 10-28-2022 RNA POLYMERASE III AB [facility] Work Phone: Comment on above: Expected: 08/28/2022, Expires: 3 Start: 08-28-2022 End: 10-28-2022 SCL-70 extractable nuclear IgG Ab [Units/volume] in Serum by Immunoassay [facility] Work Phone: Comment on above: Expected: 08/28/2022, Expires: 3 Start: 08-28-2022 End: 10-28-2022 TH/TO ANTIBODY [facility] Work Phone: Comment on above: Expected: 08/28/2022, Expires: 3 Start: 08-28-2022 End: 10-28-2022 U3RNP FIBRILLARIN AB [facility] Work Phone: Comment on above: Expected: 08/28/2022, Expires: 3 Start: 08-28-2022 End: 10-28-2022 Urinalysis complete panel - Urine [facility] Work Phone: Comment on above: Expected: 08/28/2022, Expires: 3 Start: 08-03-2022 DEPRESSION ASSESSMENT DEPRESSION ASSESSMENT [facility] Start: 07-03-2022 End: 02-19-2023 CINDY SCREENING W [facility] CINDY SCREENING [facility] Radiology Routine Encounter for screening mammogram for malignant neoplasm of breast Expected: 07/03/2022 (Approximate), Expires: 02/19/2023 [facility] Work Phone: Comment on above: Expected: 07/03/2022 (Approximate), Expi res: 02/19/2023 Start: 07-01-2022 Mammography [facility] Start: 07-01-2022 Screening for malignant neoplasm of breast Mammogram Screening [facility] Start: 04-12-2022 Adult depression screening assessment DEPRESSION SCREENING [facility] Start: 04-03-2022 Influenza vaccination INFLUENZA (#1) [facility] Start: 08-03-2021 DEPRESSION ASSESSMENT DEPRESSION ASSESSMENT [facility] Start: 04-24-2021 COVID-19 VACCINE (3 - Booster for Moderna series) COVID-19 VACCINE (3 - Booster for Moderna series) [facility] Start: 04-24-2021 COVID-19 VACCINE (3 - Moderna series) COVID-19 VACCINE (3 - Moderna series) [facility] Start: 03-27-2021 COVID-19 VACCINE (3 - Moderna risk series) COVID-19 VACCINE (3 - Moderna risk series) [facility] Start: 02-02-2007 HPV Vaccine (1 - 3-dose SCDM series) HPV Vaccine (1 - 3-dose SCDM series) [facility] Start: 02-02-1999 SHINGRIX VACCINE (1 of 2) SHINGRIX VACCINE (1 of 2) [facility] Start: 02-02-1998 HIV SCREENING HIV SCREENING [facility] Start: 02-02-1998 HIV screening HIV Screening [facility] Start: 02-02-1986 PNEUMOCOCCAL (1 - PCV) PNEUMOCOCCAL (1 - PCV) [facility] Start: 1980 HEPATITIS B (1 of 3 - 3-dose series) HEPATITIS B (1 of 3 - 3-dose series) [facility] Start: 1980 Hepatitis B Vaccine (1 of 3 - 3-dose series) Hepatitis B Vaccine (1 of 3 - 3-dose series) [facility] Activated protein C resistance [Time Ratio] in Platelet poor plasma by Coagulation assay [facility] Antithrombin III ass ay, functional [facility] Beta 2 glycoprotein 1 IgA Ab [Presence] in Serum [facility] Beta 2 glycoprotein 1 IgG Ab [Presence] in Serum [facility] Beta 2 glycoprotein 1 IgM Ab [Presence] in Serum [facility] Cardiolipin IgG Ab [Units/volume] in Serum or Plasma [facility] Cardiolipin IgM Ab [Units/volume] in Serum or Plasma [facility] End: 11-25-2025 CT Chest WO contrast CT CHEST WO IVCON Radiology Routine SOB (shortness of breath) Wheezing 1 Occurrences starting 10/26/2024 until 11/25/2025 [facility] Comment on above: 1 Occurrences starting 10/26/2024 until 11/25/2025 End: 06-10-2025 DBT Breast - bilateral screening CINDY SCREENING W [facility] Radiology Routine Encounter for screening mammogram for breast cancer 1 Occurrences starting 05/11/2024 until 06/10/2025 [facility] Work Phone: Comment on above: 1 Occurrences starting 05/11/2024 until 06/10/2025 dRVVT (LA screen) [facility] End: 10-14-2025 Echocardiography ECHO Cardiology STAT Bilateral leg edema SOB (shortness of breath) 1 Occurrences starting 10/14/2024 until 10/14/2025 [facility] Work Phone: Comment on above: 1 Occurrences starting 10/14/2024 until 10/14/2025 End: 01-14-2026 EMG(NEURO/NI) EMG(NEURO/NI) EMG Routine Left leg pain Leg heaviness 1 Occurrences starting 01/14/2025 until 01/14/2026 [facility] Comment on above: 1 Occurrences starting 01/14/2025 until 01/14/2026 F2 gene mutations fo und [Identifier] in Blood or Tissue by Molecular genetics method Nominal [facility] F5 gene mutations fo und [Identifier] in Blood or Tissue by Molecular genetics method Nominal [facility] Homocysteine [Moles/ volume] in Serum or Plasma [facility] End: 11-25-2025 LUNG DIFFUSION CAPACITY (DLCO) LUNG DIFFUSION CAPACITY (DLCO) PFT Routine SOB (shortness of breath) Wheezing 1 Occurrences starting 10/26/2024 until 11/25/2025 [facility] Comment on above: 1 Occurrences starting 10/26/2024 until 11/25/2025 End: 11-25-2025 LUNG VOLUMES LUNG VOLUMES PFT Routine SOB (shortness of breath) Wheezing 1 Occurrences starting 10/26/2024 until 11/25/2025 [facility] Comment on above: 1 Occurrences starting 10/26/2024 until 11/25/2025 Lupus anticoagulant assay, platelet neutralization method [facility] Lupus anticoagulant screening test [facility] End: 01-23-2024 CINDY SCREENING CINDY SCREENING Radiology Routine Encounter for screening mammogram for breast cancer 1 Occurrences starting 12/24/2022 until 01/23/2024 [facility] Work Phone: Comment on above: 1 Occurrences starting 12/24/2022 until 01/23/2024 End: 07-02-2024 CINDY SCREENING CINDY SCREENING Radiology Routine Encounter for screening mammogram for malignant neoplasm of breast 1 Occurrences starting 06/03/2023 until 07/02/2024 [facility] Work Phone: Comment on above: 1 Occurrences starting 06/03/2023 until 07/02/2024 End: 11-19-2024 MG Breast - right Diagnostic for implant CINDY DIAGNOSTIC RIGHT Radiology Routine Abnormal mammogram of right breast 1 Occurrences starting 10/21/2023 until 11/19/2024 [facility] Work Phone: Comment on above: 1 Occurrences starting 10/21/2023 until 11/19/2024 Microscopic observat ion [Identifier] in Vaginal fluid by Gram stain BACT/DENISE VAG GRAM STAIN Microbiology Routine Postcoital bleeding Vaginal discharge Ordered: 02/12/2022 [facility] Work Phone: Comment on above: Ordered: 02/12/2022 Path report.final Dx Spec [facility] Patient Education ED Chest Pain, Uncertain Cause ED Dyspnea [facility] Work Phone: Patient referral [facility] Work Phone: PELVIC US WHI PELVIC US WHI An c Imaging Routine Pain due to intrauterine contraceptive device (IUD), initial encounter (HCC) Postcoital bleeding Ordered: 02/12/2022 [facility] Work Phone: Comment on above: Ordered: 02/12/2022 Plasma plasminogen activity [facility] Protein C [Units/vol ume] in Platelet poor plasma by Coagulation assay [facility] Protein S Free Ag actual/normal in Platelet poor plasma by Immunoassay [facility] Prothrombin time [facility] End: 11-25-2025 SPIROMETRY - BASELINE AND POST DILATOR SPIROMETRY - BASELINE AND POST DILATOR PFT Routine SOB (shortness of breath) Wheezing 1 Occurrences starting 10/26/2024 until 11/25/2025 [facility] Work Phone: Comment on above: 1 Occurrences starting 10/26/2024 until 11/25/2025 End: 11-19-2024 US Breast - right limited US BREAST LTD RIGHT Radiology Routine Abnormal mammogram of right breast 1 Occurrences starting 10/21/2023 until 11/19/2024 [facility] Work Phone: Comment on above: 1 Occurrences starting 10/21/2023 until 11/19/2024 US Pelvis [facility] Pelvis transvaginal [facility] End: 02-13-2026 XR Knee - left 4 Views XR KNEE GENERAL 4V AP BOTH/PA BOTH/LAT/MERC LEFT Radiology Routine Left leg pain Leg heaviness 1 Occurrences starting 01/14/2025 until 02/13/2026 [facility] Work Phone: Comment on above: 1 Occurrences starting 01/14/2025 until 02/13/2026 End: 02-13-2026 XR Lumbar spine 3 Views XR LUMBAR GENERAL 3V AP/LAT/L5-S1 Radiology Routine Left leg pain Leg heaviness 1 Occurrences starting 01/14/2025 until 02/13/2026 [facility] Comment on above: 1 Occurrences starting 01/14/2025 until 02/13/2026 End: 02-13-2026 XR Pelvis and Hip - left AP and Lateral frog XR HIP GENERAL 3V PELV/AP/LAT LEFT Radiology Routine Left leg pain Leg heaviness 1 Occurrences starting 01/14/2025 until 02/13/2026 [facility] Comment on above: 1 Occurrences starting 01/14/2025 until 02/13/2026 [facility] Immunizations Immunization Date Immunization Notes Care Provider Abril smith 06-17-2024 influenza, seasonal, injectable, preservative free Dr. Hilton Doty DO Work Phone: [facility] 06-17-2024 influenza virus vaccine, unspecified formulation Hilton Doty DO Work Phone: [facility] 06-03-2023 influenza, injectabl e, quadrivalent, contains preservative Hilton Doty DO Work Phone: [facility] Work Phone: 06-03-2023 influenza virus vaccine, unspecified formulation Doris Mendez APRN.ASSISTANT PRODUCTION EDITOR Work Phone: [facility] 04-08-2023 Hepatitis B vaccine (recombinant), CpG adjuvanted Dr. Hilton Doty Work Phone: [facility] 03-04-2023 Hepatitis B vaccine (recombinant), CpG adjuvanted Dr. Hilton Doty Work Phone: [facility] 04-12-2021 influenza, injectabl e, quadrivalent, contains preservative Ale Conner MD Work Phone: [facility] Work Phone: 04-12-2021 influenza virus vaccine, unspecified formulation Priscilla Junior MD Work Phone: [facility] 02-27-2021 Covid (Moderna) Dr. Hilton nunez Work Phone: [facility] 01-30-2021 COVID-19 vaccine, fu ll dose (MODERNA) Ale Conner MD Work Phone: [facility] 07-15-2019 influenza, injectabl e, quadrivalent, contains preservative Ale Conner MD Work Phone: [facility] Work Phone: 04-22-2017 influenza, seasonal, injectable Ale Conner MD Work Phone: [facility] Work Phone: 05-14-2015 influenza, seasonal, injectable Ale Conner MD Work Phone: [facility] Work Phone: 01-24-2015 tetanus toxoid, reduced diphtheria toxoid, and acellular pertussis vaccine, adsorbed Ale Conner MD Work Phone: [facility] Work Phone: Payers Date Payer Category Payer Self-pay [id number] 2023 Unknown [id number] 2023 Private Health Insurance [id number] 2022 Private Health Insurance [id number] 2022 Unknown DINO BROWNE SS PPO [id number] 2022-Present [phone] [address] [place] [address] PPO [id number] 2021 Unknown BETTE CALDERON PRE CURT SELF FUNDED [id number] 2021-Present [phone] [address] [place] [address] PPO [id number] 2020 Private Health Insurance [facility] UMR CHOICE PLUS [id number] 2020-Present [phone] [address] [address] [place] [address] HMO [id number] 2014 Private Health Insurance [id number] Unknown [facility] AZLE [id number] [place] [id number] Unknown [id number] 2.16.840.1.007770.3.579.2. 462 Unknown [id number] 2.16.840.1.483959.3.579.2. 462 Unknown [id number] 2.16.840.1.398448.3.579.2. 462 Unknown [id number] 2.16.840.1.345943.3.579.2. 462 Unknown [id number] 2.16.840.1.876822.3.579.2. 462 Unknown [id number] 2.16.840.1.214039.3.579.2. 462 Unknown [id number] 2.16.840.1.067536.3.579.2. 462 Unknown [id number] 2.16.840.1.117872.3.579.2. 462 Unknown [id number] 2.16.840.1.944111.3.579.2. 462 Unknown [id number] 2.16.840.1.739084.3.579.2. 462 Unknown [id number] 2.16.840.1.785079.3.579.2. 462 Unknown [id number] 2.16.840.1.207475.3.579.2. 462 Unknown [id number] 2.16.840.1.152147.3.579.2. 462 Unknown [id number] 2.16.840.1.226711.3.579.2. 462 Unknown [id number] 2.16.840.1.418486.3.579.2. 462 Unknown [id number] 2.16.840.1.547144.3.579.2. 462 Unknown [id number] 2.16.840.1.608417.3.579.2. 462 Unknown [id number] 2.16.840.1.549478.3.579.2. 462 Unknown [id number] 2.16.840.1.068044.3.579.2. 462 Unknown [id number] 2.16840.1.491883.3.579.2. 462 Unknown [id number] 2.840.1.610844.3.579.2. 462 Unknown [id number] 2.840.1.402037.3.579.2. 462 Unknown [id number] 2.840.1.893015.3.579.2. 462 Unknown [id number] 2.840.1.096754.3.579.2. 462 Unknown [id number] 2.840.1.012499.3.579.2. 462 Unknown [id number] 2.840.1.127335.3.579.2. 462 Unknown [id number] 2.840.1.547125.3.579.2. 462 Unknown [id number] 2.840.1.087926.3.579.2. 462 Unknown [id number] 2.840.1.042757.3.579.2. 462 Unknown [id number] 2.840.1.705452.3.579.2. 462 Unknown [id number] 2.840.1.475053.3.579.2. 462 Unknown [id number] 2.840.1.022684.3.579.2. 462 Unknown [id number] 2.840.1.811900.3.579.2. 462 Unknown [id number] 2.840.1.609981.3.579.2. 462 Unknown [id number] 2.16.840.1.549655.3.579.2. 462 Unknown [id number] 2.16.840.1.797997.3.579.2. 462 Unknown [id number] 2.16.840.1.564501.3.579.2. 462 Unknown [id number] 2.16.840.1.085764.3.579.2. 462 Unknown [id number] 2.16.840.1.552479.3.579.2. 462 Unknown [id number] 2.16.840.1.420105.3.579.2. 462 Unknown [id number] 2.16.840.1.229832.3.579.2. 462 Social History Date Type Detail Facility Start: 08-30-2013 End: 08-21-2014 Tobacco smoking status IDIS Never smoked tobacco [facility] Work Phone: Start: 08-30-2013 End: 08-21-2014 Tobacco use and exposure Smokeless tobacco non-user [facility] Work Phone: Start: 10-05-2021 End: 03-13-2025 Alcohol intake Current drinker of alcohol (finding) [facility] Start: 08-21-2014 History SDOH Alcohol Comment occ [facility] Start: 01-04-2021 Education 13 [facility] Start: 1980 Sex Assigned At Not on file [facility] Start: 01-10-2022 End: 04-23-2022 Exposure to SARS-CoV-2 (event) Not sure [facility] Work Phone: Start: 03-02-2023 End: 02-08-2024 History of Social function [facility] Work Phone: Start: 03-02-2023 End: 02-08-2024 Tobacco use panel [facility] Work Phone: Start: 07-04-2012 Adult Depression Screening Assessment 0 [facility] Work Phone: Start: 06-11-2023 End: 10-14-2023 Tobacco smoking status NHIS Unknown if ever smoked [facility] Start: 03-12-2020 Rare [facility] Start: 03-12-2020 None [facility] Start: 03-12-2020 Spouse/ Signif icant Other;With Family [facility] Start: 1980 Sex Assigned At Female W [facility] Has the electric, gas, oil, or water company threatened to shut off services in your home in past 12Mo No [facility] Are you now , , , , never or living with a partner? [facility] How often to you hav e a drink containing alcohol? Never [facility] How often do you hav e 6 or more drinks on 1 occasion? Less than monthly [facility] Do you feel stress - tense, restless, nervous, or anxious, or unable to sleep at night because your mind is troubled all the time - these days [OSQ] To some extent [facility] (I/We) worried whether (my/our) food would run out before (I/we) got money to buy more. Never true [facility] Start: 04-04-2024 End: 05-04-2025 Tobacco smoking status NHIS Ex-smoker (finding) [facility] Start: 10-06-2024 End: 11-14-2024 Sex Female (finding) [facility] NEGATED: Highlighted row [facility] Functional Status Date Assessment Result Facility 01-24-2015 Are you deaf, or do you have serious difficulty hearing No 01/24/2015 1:02 PM JAET Char Valencia LPN No [facility] 01-24-2015 Are you blind, or do you have serious difficulty seeing, even when wearing glasses No 01/24/2015 1:02 PM JAET Char Valencia LPN No [facility] 01-24-2015 Do you have serious difficulty walking or climbing stairs No 01/24/2015 1:02 PM JAET Char Valencia LPN No [facility] 01-24-2015 Do you have difficul ty dressing or bathing No 01/24/2015 1:02 PM Char Vines LPN No [facility] 01-24-2015 Because of a physica l, mental, or emotional condition, do you have difficulty doing errands alone such as visiting a physician's office or shopping No 01/24/2015 1:02 PM EDT Char Valencia LPN No [facility] Mental Status Date Assessment Result Facility 09-29-2023 Cognitive function Voice/Name [facility] Work Phone: 01-24-2015 Because of a physica l, mental, or emotional condition, do you have serious difficulty concentrating, remembering, or making decisions No 01/24/2015 1:02 PM EDT Char Valencia LPN No [facility] Clinical Notes 12-13-2021 to 06-09-2025 Note Date & Type Note Facility 06-09-2025 Note HNO ID: [id number] Author: HILTON ODTY, DO Service: ? Author Type: Physician Type: Progress Notes Filed: 06/09/2025 12:22 Note Text: CC: Wanda Reyna is a 45 year old female who presents to the office for follow up HPI: Raynaud's disease, had recent right hand flare up 5th finger that was severe. Was seen in the EMERGENCY DEPARTMENT on 05/04/25 at [facility] due to symptoms that were severe. Was told by the EMERGENCY DEPARTMENT physician that it was secondary to Raynaud's flare up of symptoms. Inflammatory polyarthropathy, due to recent flare up of symptoms with Raynauds and joint pains, she is again now willing to have opinion again by [employer], improved job situation and loves her work. She has support from her . Still struggling with anxiety symptoms. No SI or HI. Is taking wellbutrin and Prozac 10 mg a day. Is going on a cruise and is worried about how she is going to do on this trip with plane and boat travel with anxiety and motion sickness. She is asking how she can help this. PAST MEDICAL HISTORY Diagnosis Date MAXIM positive 09/2014 Inflammatory polyarthropathy (HCC) Kidney stone with stent Raynaud's disease PAST SURGICAL HISTORY Procedure Laterality Date DANDC (MISSED AB 1ST TRIMESTER) 2001 ESWL Right 05/08/2017 EXTRACTION, ERUPTED TOOTH OR EXPOSED ROOT (ELEVATION AND/OR FORCEPS REMOVAL) GALLBLADDER/EF TUBAL LIGATION HX 2005 Social History: SOCIAL HISTORY[1] FAMILY HISTORY Problem Relation Age of Onset Alcohol/Drug Father Breast Cancer Maternal Grandmother Hypertension Maternal Grandmother Cancer Paternal Grandmother Breast Cancer Paternal Aunt x2 Cancer Paternal Aunt bone Current Outpatient prescriptions: phentermine-topiramate ER (QSYMIA) 11.25-69 mg 24 Hr Capsule Take 1 capsule by mouth once daily for 90 days. BMI 31.32 spironolactone (ALDACTONE) 50 mg tablet Take 1 tablet by mouth once daily. traZODone (DESYREL) 50 mg tablet Take 1-2 tablets by mouth daily at bedtime. phentermine-topiramate ER (QSYMIA) 11.25-69 mg 24 Hr Capsule Take 1 capsule by mouth once daily for 90 days. BMI 31.32 buPROPion (WELLBUTRIN) 75 mg tablet Take 2 tablets in the AM and 2 tablet in the afternoon FLUoxetine (PROZAC) 10 mg capsule Take 1 capsule by mouth once daily. hydrOXYchloroQUINE (PLAQUENIL) 200 mg tablet Take 1 tablet by mouth once daily. hydrocortisone 2.5 % cream Apply 1 application to affected area two times a day as needed (hemorrhoids). Location: hemorrhoids albuterol HFA (PROVENTIL HFA, VENTOLIN HFA) 90 mcg/actuation inhaler Inhale 2 Puffs as instructed every 4 hours as needed for wheezing/shortness of breath. naproxen (NAPROSYN) 500 mg tablet Take 1 tablet by mouth two times a day as needed (for pain/inflammation). Take with food. Cholecalciferol, Vitamin D3, 2,000 unit cap Take 2 tablets by mouth once daily. Allergies: ALLERGIES Allergen Reactions Penicillins Unknown ROS: See HPI PE: 06/09/25 1104 BP: 120/80 Pulse: 64 Resp: 12 Temp: 36.1 ?C (97 ?F) TempSrc: Left Tympanic Weight: 88 kg (194 lb) Gen: AANDOX3, NAD, non-toxic appearing, tearful in office, no distress HEENT: PERRLA, EOMs intact b/l, nares without drainage, pharynx without erythema, exudate, lesions, or drainage. Uvula midline. Neck: No LAD, no thyromegaly, no meningismus. CV: RRR, no murmur Lungs: CTA b/l, no wheezing Skin: No rashes, lesions, or wounds on exposed skin. Significant varicose veins of legs, left >right leg, also with spider vein changes b/l legs Trace to 1+ leg symmetric swelling. ASSESSMENT/PLAN: 1. Inflammatory polyarthropathy (HCC) - ICD9: 714.9, ICD10: M06.4 (primary diagnosis) Continue same medications F/u with Chart Picker due to recent Raynaud's symptoms. - CONSULT TO RHEUM/IMMUN DISEASE 2. Obesity, Class I, BMI 30-34.9 - ICD9: 278.00, ICD10: E66.811 Weight decreasing - Behavioral intervention and - Eat well program 3. Dyslipidemia - ICD9: 272.4, ICD10: E78.5 - Controlled - Continue current medications - Counseled on healthy diet and regular exercise 4. Raynaud's phenomenon without gangrene - ICD9: 443.0, ICD10: I73.00 See above - CONSULT TO RHEUM/IMMUN DISEASE 5. Pustule - ICD9: 686.9, ICD10: L08.9 - start on rx prn for skin sores as needed. - MUPIROCIN 2 % TOPICAL OINTMENT 6. Situational anxiety - ICD9: 300.09, ICD10: F41.8 rx prn for travel on upcoming cruise Also adjust up prozac to 20 mg a day No SI or HI - ALPRAZOLAM 0.5 MG TABLET - FLUOXETINE 20 MG CAPSULE 7. LIVIA (generalized anxiety disorder) - ICD9: 300.02, ICD10: F41.1 rx prn for travel on upcoming cruise Also adjust up prozac to 20 mg a day No SI or HI - FLUOXETINE 20 MG CAPSULE 8. Situational depression - ICD9: 309.0, ICD10: F43.21 rx prn for travel on upcoming cruise Also adjust up prozac to 20 mg a day No SI or HI - FLUOXETINE 20 MG CAPSULE 9. Travel advice encou (more content not included)... [facility] 05-18-2025 Progress note [facility] 05-04-2025 History and physical note Note Date/Time May 04, 2025 1:27pm [facility] Medical Records Department [address] [place] [address] History & Physical Exam 10/02/25 1325 MR#: [id number] Acct: [id number] Name: WANDA REYNA Rep #:[id number] : 1980 45 From: Derek Barone MD PCP: Dr. Hilton Doty, DO Status:[facility] Location: [facility] HPI - General HPI Narrative WANDA REYNA, is a 45 F who presents with venous insufficiency with pain/heaviness refractory to compression tx. She had a prior GSV ablation. She has SSV with reflux. 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 Hilton Doty DO~ Signed [facility] Work Phone: 1(137) 148-232610-02-2025 History and physical note [facility] Medical Records Department [address] [place] [address] History & Physical Exam 05/04/25 1325 MR#: [id number] Acct: [id number] Name: WANDA REYNA Rep #:[id number] : 1980 45 From: Derek Barone MD PCP: Dr. Hilton Doty DO Status:[facility] Location: [facility] HPI - General HPI Narrative WANDA REYNA, is a 45 F who presents with venous insufficiency with pain/heaviness refractory to compression tx. She had a prior GSV ablation. She has SSV with reflux. [facility] Medical History Status post hysteroscopy COVID-19 Wears [...] PO DAILY 09/0409/28/23 12:40 History 69 mg capsule,ext.gsnremb70cc mphas (Qsymia) hydroxychloroquine 200 mg tablet 300 [...] History current occupational status: employed current occupation: [employer]- Pulmonary medicine Smoking Status: Former smoker alcohol [...] Barone MD; Dr. Hilton Doty, DO~ Signed [facility]10-02-2025 [facility] Medical Records Department [address] [place] [address] History Physical Exam 05/04/25 1325 MR#: [id number] Acct: [id number] Name: WANDA REYNA Rep #: [id number] : 1980 45 From: Derek Barone MD PCP: Dr. Hilton Doty, DO Status:[facility] Location: [facility] HPI - General HPI Narrative WANDA REYNA, is a 45 F who presents with venous insufficiency with pain/heaviness refractory to compression tx. She had a prior GSV ablation. She has SSV with reflux. [facility] Medical History Status post hysteroscopy COVID-19 Wears [...] DAILY 09/24/23 09/28/23 12:40 History 69 mg capsule,ext.sgbyrcx50yr mphas (Qsymia) hydroxychloroquine 200 mg tablet 300 [...] History current occupational status: employed current occupation: [employer] Smoking Status: Former smoker alcohol intake: never [...] and no wounds Neuro (more content not included)...[facility]09-09-2025 NotePatient Outreach (FAMPWS) WANDA REYNA ([id number]) 1980 F Date Time Provider Department 04/11/25 HILTON DOTY FAMPWS During your visit today, we recorded the following information about you: Allergies As of Date: 04/11/2025 Noted Allergy Reaction PENICILLINS 08/30/2013 16 - Unknown Date Reviewed: 03/13/2025 Reviewed by: Char Valencia LPN - Fully Assessed Visit Diagnosis:Encounter for screening mammogram for breast cancer [Z12.31] Order(s):[facility] SCREENING W KYMBERLY [[id number]] Order #: [id number] FUTURE Prescriptions as of 05/12/2025 - spironolactone [...] Leg heaviness [R29.898] 01/17/2025 Encounter Status:Closed by Linkurious, PRODUSER on 05/12/25[facility] 03-31-2025 Telephone encounter Note* Telephone Encounter - Rox Villarreal RN - 03/31/2025 4:40 PM EDT Pt read CoTweet msg with Dr. Doty's response. Last read by Wanda Reyna at 12:11PM on 03/31/2025. [facility]08-29-2025 Miscellaneous Notes* Telephone Encounter - Rox Villarreal RN - 03/31/2025 4:40 PM EDT Pt read Digital Caddiest msg with Dr. Doty's response. Last read [...] there were 19 other labs in her [facility] portal. I told Vaibhav wasn't sure if [...] asked pt to check to see if [facility] davon this test and if completed, please fax to Dr. Doty at [phone]. * Telephone Encounter - Rox Villarreal RN [...] B and sulfate and dexamethasone ophthalmic ointment group home sterile Thanks It is an eye ointment my eye doctor Dr. Genao had filled it before and Dr. Doty said to send her a message what it was called and she could send it in for me. (BR RN) 2) Another MyChart msg pt sent last evening the : When I called and talked to nurse at [facility] other night I had said that about they had said Your provider reached out to us. Then when I got off phone with [facility] nurse I listened to the message again but worker from [place] s office was talking avril fast, after [...] note were not included. Pt informed via MC message. Please see additional message from patient [...] Doty DO * Telephone Encounter - Rox Villarreal, RN - 03/15/2025 8:22 PM EDT Pt [...] review of chart, [facility] the [facility] in and spoke with nurse: Wanda Reyna to [facility] (supporting Hilton Doty DO) 03/15/25 7:22 PM I called this afternoon spoke with one of [facility] nurse I think I confused her my anxiety was bad today. Called vascular yesterday left vm about scheduling appt. I thought when vascular called today and left they meant my provider family doctor called [...] B and sulfate and dexamethasone ophthalmic ointment group home sterile Thanks (Sent Elizabeth msg back to pt for further clarification on what cream she is asking for a refill for as none show up in past med hx). documented in this encounterDunlap [facility]08-[facility] Telephone encounter Note * Telephone Encounter - Hilton Doty DO - 03/29/2025 8:05 PM EDT From the testing that I can currently see, the clotting labs seem to be normal. Unsure if all are resulted and received yet. Hilton Doty DO [facility]08-27-2025 Telephone encounter Note* Telephone Encounter - Lissa Cedillo RN - 03/29/2025 12:15 PM EDT Pt called in and repots Dr Rai had the Hypercog diagnostic panel redrawn. She states she just leftmedical records and they should be sending it to providers office today. She states aside from thatlad and the sed rate, and c-reactive protein there were 19 [address] her [facility] portal. I told Vaibhav wasn't sure if those was all from the panel or not. She states one of them was Lupus and Dr Rai had told her that one looked good. Please watch for this panel and call and advise Pt. Lissa Cedillo RN [facility]08-27-2025 Telephone encounter Note* Telephone Encounter - Rox Villarreal RN - 03/29/2025 10:19 AM EDT LM for pt stating we have not received Hypercoag diag panel yet so asked pt to check to see if [facility] davon this test and if completed, please fax to Dr. Doty at [phone]. [facility]08-27-2025 Telephone encounter Note* Telephone Encounter - Rox Villarreal RN - 03/29/2025 10:15 AM EDT Images from the original note were not included. [facility]08-27-2025 Telephone encounter Note* Telephone Encounter - Rox Villarreal RN - 03/29/2025 10:13 AM EDT Images from the original note were not included. [facility]08-25-2025 Telephone encounter Note* Telephone Encounter - Lissa [...] Please call and advise. Lissa Cedillo RN [facility]08-25-2025 Telephone encounter Note* Telephone Encounter - Lissa Cedillo RN - 03/27/2025 7:22 PM EDT Called and left a voicemail for the Patient to call back and ask for a nurse to receive the providers message. Lissa Cedillo RN [facility]08-25-2025 Telephone encounter Note* Telephone Encounter - Hilton Doty DO - 03/27/2025 4:39 PM EDT Please let her know that this isn't an eye ointment I can prescribed due to the steroids and antibiotic nature of the medication- needs to be from eye doctor please Hilton Doty DO [facility]08-15-2025 Telephone encounter Note* Telephone Encounter - Catina Austin LPN - 03/17/2025 3:55 PM EDT Pt notified via my chart. [facility]08-15-2025 Miscellaneous Notes* Telephone Encounter - Catina Austin LPN - 03/17/2025 3:55 PM EDT Pt notified via my chart. * Telephone Encounter - Catina Austin LPN - 03/15/2025 3:58 PM EDT Images from the original note were not included. Electronic PA rec'd and completed. This was denied. Note from payer: Request Reference Number: [id number]. PHENT/TOPIRA CAP is denied due to Plan Exclusion. [...] to its destination. To be filled at: [facility] [address] [place] [address] [address] - [phone] documented in this encounterDunlap Memorial Hospital08-15-2025 Telephone encounter Note * Telephone Encounter - Lois Rod MA - 03/17/2025 7:42 AM EDT 1) Regarding cream per pt's MyChart msgs below: The cream refill I thing I talked with you about need refill is Neomycin and polymyxin B and sulfate and dexamethasone ophthalmic ointment group home sterile Thanks It is an eye ointment my eye doctor Dr. Genao had filled it before and Dr. Doty said to send her a message what it was called and she could send it in for me. (BR RN) 2) Another MyChart msg pt sent last evening the : When I called and talked to nurse at [facility] other night I had said that about they had said Your provider reached out to us. Then when I got off phone with [facility] nurse I listened to the message again [...] to touch base on this. Thank you [facility]08-15-2025 Telephone encounter Note* Telephone Encounter - Hilton Doty DO - 03/17/2025 7:11 AM EDT What ointment? Hilton Doty DO [facility]08-14-2025 Telephone encounter Note* Telephone Encounter - Lois Rod MA - 03/16/2025 7:59 AM EDT Images from the original note were not included. Pt informed via [employer] message. Please see additional message from patient [...] your help and getting back to me. [facility]08-13-2025 Telephone encounter Note* Telephone Encounter - Hilton Doty DO - 03/15/2025 9:13 PM EDT Please let her know that I haven't spoke to Dr. Barone or anyone in his office at all since I have seen her. I am not sure what the office is suggesting or recommending for her. I haven't had communication with their office Hilton Doty DO [facility]08-13-2025 Telephone encounter Note* Telephone Encounter - Rox Villarreal RN - 03/15/2025 8:30 PM EDT Initial MyChart msg copied and pasted into phone note. Sent msg back to pt requesting more information on the cream she is asking to get a refill on. [facility]08-13-2025 Miscellaneous Notes* Telephone Encounter - Rox Villarreal RN - 03/15/2025 8:30 PM EDT Initial MyChart msg copied and pasted into phone note. Sent msg back to pt requesting more information on the cream she is asking to get a refill on. documented in this encounterDunlap [facility] Hospital08-13-2025 Telephone encounter Note * Telephone Encounter - [...] and spoke with nurse: Wanda Reyna to [facility] (supporting Hilton Doty DO) 03/15/25 7:22 PM I called this afternoon spoke with one of [facility] nurse I think I confused her my [...] B and sulfate and dexamethasone ophthalmic ointment group home sterile Thanks (Sent Elizabeth msg back to pt for further clarification on what cream she is asking for a refill for as none show up in past med hx). [facility]08-13-2025 Telephone encounter Note* Telephone Encounter - Catina Austin LPN - 03/15/2025 3:58 PM EDT Images from the original note were not included. Electronic PA rec'd and completed. This was denied. Note from payer: Request Reference Number: [id number]. PHENT/TOPIRA CAP is denied due to Plan Exclusion. [...] to its destination. To be filled at: [facility] [address] [place] [address] [address] - [phone] [facility]08-12-2025 NoteHNO ID: [id number] Author: HILTON DOTY, DO Service: ? Author [...] on 11/16/[address] chest at [facility] for her dyspnea symptoms- this testing was normal appearing on review She also had ECHOCARDIOGRAM at [facility] for her dyspnea symptoms- this testing was [...] or occlusion- performed by Dr. Barone at [facility]. Hasn't had any procedure yet to fix [...] tablet Take 1 tablet (more content not included)...[facility]08-12-2025 History of Present illness Narrative* Hilton Doty, - 03/14/2025 12:38 PM EDT CC: Wanda [...] on 11/16/[address] chest at [facility] for her dyspnea symptoms- this testing was normal appearing on review She also had ECHOCARDIOGRAM at [facility] for her dyspnea symptoms- this testing was [...] or occlusion- performed by Dr. Barone at [facility]. Hasn't had any procedure yet to fix [...] with Vascular surgeon specialist Dr Barone at [facility] since she works there - C-REACTIVE PROTEIN - SEDIMENTATION RATE, WESTERGREN - HYPERCOAG DIAG PNL 2. Varicose veins of both legs with edema - ICD9: 454.8, ICD10: I83.893 Labs as ordered I am concerned that this is secondary to her varicose veins/spider veins She is going to follow up with Vascular surgeon specialist Dr Barone at [facility] since she works there - C-REACTIVE PROTEIN - SEDIMENTATION RATE, WESTERGREN - HYPERCOAG DIAG PNL 3. Inflammatory polyarthropathy (HCC) - ICD9: 714.9, ICD10: M06.4 Labs as ordered I am concerned that this leg pain is secondary to her varicose veins/spider veins She is going to follow up with Vascular surgeon specialist Dr Barone at [facility] since she works there - C-REACTIVE PROTEIN - SEDIMENTATION RATE, WESTERGREN - HYPERCOAG DIAG PNL - PHENTERMINE 11.25 MG-TOPIRAMATE ER 69 MG CAPSULE,EXT.[id number] MPHAS 4. Inflammatory arthritis - ICD9: 714.9, ICD10: M19.90 Labs as ordered I am concerned that this leg pain is secondary to her varicose veins/spider veins She is going to follow up with Vascular surgeon specialist Dr Barone at [facility] since she works there - C-REACTIVE PROTEIN - SEDIMENTATION RATE, WESTERGREN - HYPERCOAG DIAG PNL 5. Left leg pain - ICD9: 729.5, ICD10: M79.605 Labs as ordered I am concerned that this leg pain is secondary to her varicose veins/spider veins She is going to follow up with Vascular surgeon specialist Dr Barone at [facility] since she works there [place] for tramadol [...] with Vascular surgeon specialist Dr Barone at [facility] since she works there [place] for tramadol for severe pain only- rx sent to pharmacy, she is aware of risks and SE with medication 7. Obesity, Class I, BMI 30-34.9 - ICD9: 278.00, ICD10: E66.811 Continue Qsymia Need for increased exercise as well - PHENTERMINE 11.25 MG-TOPIRAMATE ER 69 MG CAPSULE,EXT.[id number] MPHAS 8. Dyslipidemia - ICD9: 272.4, ICD10: E78.5 - Controlled - Continue current medications - Counseled on healthy diet and regular exercise - Discussed need for and benefit of weight loss. BMI 30.23 kg/(m^2) - PHENTERMINE 11.25 MG-TOPIRAMATE ER 69 MG CAPSULE,EXT.[id number] MPHAS Hilton Doty DO Return if no improvement. Follow up with Hilton Doty DO. To ER if develops chest pain, shortness of breath. Discussed risks, benefits, alternatives, and potential side effects of medications. Patient/Guardian expressed understanding and agreed with the plan. See patient instructions. Hilton Doty DO [address] [place] [address] [1] Social History Tobacco Use Smoking status: Never Smokeless tobacco: Never Vaping Use Vaping status: Never Used Substance Use Topics Alcohol use: Yes Comment: occ Drug use: No documented in this encounterDunlap [facility] Hospital07-07-2025 Telephone encounter Note * Telephone Encounter - [...] Monge LPN February 06, 2025 3:50 PM [facility]07-07-2025 Miscellaneous Notes* Telephone Encounter - Winnie Monge [...] 06, 2025 3:50 PM documented in this encounterDunlap Memorial Hospital07-07-2025 Evaluation note* Diagnosis Onset Date Resolution Status Admit Date Venous insufficiency chronic February 06, 2025 12:56pm Venous insufficiency chronic 2024 8:29am Venous insufficiency chronic [facility] 2024 11:34am Venous insufficiency chronic [facility] 2024 11:22am [facility] Work Phone: 1(185) 749-867107-07-2025 Telephone encounter Note* Telephone Encounter - Huma Da Silva LPN - 02/06/2025 1:58 PM EDT Spoke with pt gave information provided. Pt voices understanding. [facility]07-07-2025 Miscellaneous Notes* Telephone Encounter - Huma Da Silva LPN - 02/06/2025 1:58 PM EDT Spoke with pt gave information provided. Pt voices understanding. * Telephone Encounter - Lisa Doll APRN.AUTO GLASS WORKER - 02/06/2025 12:25 PM EDT EMG was normal. No evidence of peripheral neuropathy or lumbosacral radiculopathy. Thank you, Lisa Doll APRN.AUTO GLASS WORKER * Telephone Encounter - Ngoc Ervin RN - 02/06/2025 11:03 AM EDT Patient asking for provider to advise on her recent EMG results, when able. Pt had procedure completed at [facility]. See scanned documents 02/01/25. Ngoc Ervin RN documented in this encounterDunlap Memorial Hospital07-07-2025 Telephone encounter Note * Telephone Encounter - Lisa Doll APRN.AUTO GLASS WORKER - 02/06/2025 12:25 PM EDT EMG was normal. No evidence of peripheral neuropathy or lumbosacral radiculopathy. Thank you, Lisa Doll APRN.AUTO GLASS WORKER [facility]07-07-2025 Telephone encounter Note* Telephone Encounter - Ngoc Ervin RN - 02/06/2025 11:03 AM EDT Patient asking for provider to advise on her recent EMG results, when able. Pt had procedure completed at [facility]. See scanned documents 02/01/25. Ngoc Ervin RN [facility]07-02-2025 Procedure note [facility] Pulmonary Services/Neurology [address] [place] [address] MR#: [id number] Acct: [id number] Name: WANDA REYNA Rep #:[id number] : 1980 44 From: Lupillo Quintero MD Referring Dr: Hilton Doty DO atus: REG CLI Location: [facility] Date: 02/01/25 Sex: F C NCS and/or [...] Multi Select Codes Neurology Neurology Interp Codes: 82349-74 Musc test done w/n test comp (interp) and 01893-91 Nrv cndj tst 5-6 studies (interp) 02/01/25 1028 D> Date _ Lupillo Quintero MD CC: Dr. Lupillo Quintero MD; Dr. Hilton Doty DO ~ Date Dictated: 02/01/25 1026 Date Transcribed: 02/01/25 1026 Welder Fitter: JAI Ortiz [facility]06-17-2025 NoteHNO ID: [id number] Author: HILTON DOTY DO Service: ? Author [...] on 11/16/[address] chest at [facility] for her dyspnea symptoms- this testing was normal appearing on review She also had ECHOCARDIOGRAM at [facility] for her dyspnea symptoms- this testing was [...] disease PAST SURGICAL HISTORY Procedure Laterality Date [facility] (MISSED AB 1ST TRIMESTER) 2001 ESWL [...] History Tobacco Use Smo (more content not included)...[facility]06-17-2025 History of Present illness Narrative* Hilton Doty, [...] on 11/16/[address] chest at [facility] for her dyspnea symptoms- this testing was normal appearing on review She also had ECHOCARDIOGRAM at [facility] for her dyspnea symptoms- this testing was [...] See patient instructions. Hilton Doty DO [address] [place] [address] documented in this encounterDunlap Memorial [facility] Radiology Diagnostic study note [facility] Imaging Services [address] [place], [place] [id number] Lumbar Spine 2 or 3 Views MR#: [id number] Acct: [id number] Name: WANDA REYNA Rep #: [id number] : 1980 F 44 From: Alejo Cowan MD PCP: Dr. Hilton Doty DO Status: RE G CLI Study:Lumbar Spine 2 or 3 Views Date of Exam: 01/14/25 Exam# [id number] Ordering Dr: Hilton Doty DO PROCEDURE: LUMBAR [...] No significant lumbar abnormality seen. [facility] CC: Dr. Hilton Doty DO ~ Welder Fitter: Signed [facility]06-15-2025 Radiology Diagnostic study note [facility] Imaging Services [address] [place], [place] [address] HIP, UNI W/ Pelvis 2-3 Views MR#: [id number] Acct: [id number] Name: WANDA REYNA Rep #: [id number] : 1980 F 44 From: Alejo Cowan MD PCP: Dr. Hilton Doty DO Status: RE G CLI Study:HIP, UNI W/ Pelvis 2-3 Views Date of Ex am: 01/14/25 Exam# [id number] Ordering Dr: Hilton Doty DO PROCEDURE: HIP, [...] 2-3 Views IMPRESSION: Negative examination Reading Location: [facility] CC: Dr. Hilton Doty DO ~ Welder Fitter: Signed [facility]06-15-2025 Radiology Diagnostic study note [facility] Imaging Services [address], [place] [id number] Knee 1 or 2 Views MR#: [id number] Acct: [id number] Name: WANDA REYNA Rep #: [id number] : 1980 F 44 From: Alejo Cowan MD PCP: Dr. Hilton Doty DO Status: RE G CLI Study:Knee 1 or 2 Views Date of Exam: Exam# [id number] Ordering Dr: Hilton Doty DO PROCEDURE: KNEE [...] compartments. 2. No acute findings Reading [facility] CC: Dr. Hilton Doty DO ~ Welder Fitter: Signed [facility]06-15-2025 Radiology Diagnostic study note [facility] Imaging Services [address] [place] [id number] Knee 4 or More Views MR#: [id number] Acct: [id number] Name: WANDA REYNA Rep #: [id number] : 1980 F 44 From: Alejo Cowan MD PCP: Dr. Hilton Doty DO Status: RE G CLI Study:Knee 4 or More Views Date of Exam: 01/14/25 Exam# [id number] Ordering Dr: Hilton Doty DO PROCEDURE: KNEE [...] compartment. 2. No acute findings. [facility] CC: Dr. Hilton Doty DO ~ Welder Fitter: Signed [facility]06-13-2025 Evaluation note* Diagnosis Onset Date Resolution Status Admit Date Venous insufficiency chronic January 13, 2025 7:58am Venous insufficiency chronic February 06, 2025 12:56pm Venous insufficiency chronic Augu 2024 8:29am Venous insufficiency chronic Octo 2024 11:34am [facility] Work Phone: 1(257) 684-272606-10-2025 Procedure note [facility] Medical Records Department [address] [place] [address] Operative Report 01/10/25 1210 MR#: [id number] Acct: [id number] Name: WANDA REYNA Rep #:[id number] : 1980 44 From: Derek Barone MD PCP: Dr. Hilton Doty, DO Status:[facility] Location: [facility] Operative Report (Standard) Operative Information Date of Procedure: 01/10/25 Pre-Operative Diagnosis: Venous insufficiency and varicose veins with pain bilateral lower extremities Post-Operative Diagnosis: Same Surgery/Procedure Performed: IVC venogram Intravascular ultrasound inferior vena cava, bilateral common iliac veins, bilateral external iliacveins product strategy director: No Type of Anesthesia: Local and Sedation,Conscious [...] site the patient was taken to the Rubber Flap Cutter where she was positioned prepped and draped [...] collaterals visualized. Through the micropuncture sheath a [employer] wire was advanced the micropuncture sheath exchanged for a short 8 Pakistani sheath. Next skin overlying the right common [...] micropuncture sheath exchanged for a short 8 Pakistani sheath. Nextan intravascular ultrasound probe was advanced [...] Barone MD; Dr. Hilton Doty, DO~ Signed [facility]06-02-2025 Telephone encounter Note* Telephone Encounter - Ngoc Ervin RN - 01/02/2025 10:30 AM EDT Patent states that Dr. Doty could qa reviewer's notes from [facility], if she is able. [facility] providers are Laura Rai and Dr. Barone. Pt also states she had a STAT US of her leg completed on Thursday and it was negative for blood clot. Ngoc Ervin RN [facility]06-02-2025 Miscellaneous Notes* Telephone Encounter - Ngoc Ervin RN - 01/02/2025 10:30 AM EDT Patent states that Dr. Doty could qa reviewer's notes from [facility], if she is able. [facility] providers are Laura Rai and Dr. [...] well. Frank Obando RN documented in this encounterDunlap [facility] Hospital06-02-2025 Telephone encounter Note * Telephone Encounter - Hilton Doty DO - 01/02/2025 7:26 AM EDT Noted, thanks for update Will await specialist opinion as well Hilton Doty DO [facility]05-30-2025 Telephone encounter Note* Telephone Encounter - Frank [...] but patient only wants to see Dr. Dtoy and has an appointment already scheduled prior to next available. Placed patient on wait list as requested.Patient requested this be forwarded to provider as well. Frank Obando RN [facility]05-19-2025 Progress note Author Derek Barone [facility] Note Date/Time December 19, 2024 6:29p [facility] Vascular Surgery [address] [place] [address]. [address] [place] [address] OFFICE VISIT Date of Service: 12/19/24 MR#: [id number] Acct: [id number] Name: WANDA REYNA Rep #: [id number] : 1980 Provider: Dr. Derek Barone MD Age/Sex: 44/F Location: [facility] Status: Signed Intake [...] Visit Reasons: Discuss LLE, prior to procedure Tobacco Sampler Required: No Accompanied by: Self Is patient [...] cap PO DAILY 09/0412/19/24 History 69 mg capsule,ext.zhofmig40ld mphas (Qsymia) hydroxychloroquine 200 mg tablet 300 [...] History current occupational status: employed current occupation: [employer] Smoking Status: Former smoker alcohol intake: [...] revealed isolated SSV reflux on left and SSV/ASV/taste tester reflux on the right. We had initially [...] No gallbladder problem and No black,tarry stools [facility]: No blood thinners, No blood disorders, [...] is no contraindication to use 12/19/24 1829 <Electronically signed by Derek Quintero> Date _ Derek Barone MD [facility] Signature: Date (if applicable) CC: ~ [facility] Work Phone: 1(397) 377-561405-19-2025 Progress [facility] Vascular Surgery [address] [place] [address] OFFICE VISIT Date of Service: 12/19/24 MR#: [id number] Acct: [id number] Name: WANDA REYNA Rep #: [id number] : 1980 Provider: Dr. 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 We had initially [...] use 12/19/24 1829 D> Date _ Derek Noguera Signature: Date (if applicable) CC: ~ [facility]05-12-2025 Evaluation note* Diagnosis Onset Date Resolution Status Admit Date Encounter for routine gynecological examination noneactive December 122024 9:20am Symptomatic varicose veins chronic December 19, 2024 3:31pm Venous insufficiency chronic January 13, 2025 7:58am Venous insufficiency chronic February 06, 2025 12:56pm [facility] Work Phone: [phone] Evaluation note* Diagnosis Onset Date Resolution Status Admit Date Encounter for routine gynecological examination noneactive December 122024 9:20am Symptomatic varicose veins chronic December 19, 2024 3:31pm Venous insufficiency chronic January 13, 2025 7:58am Venous insufficiency chronic February 06, 2025 12:56pm Venous insufficiency chronic 2024 8:29am [facility] Work Phone: [phone] Telephone encounter Note* Telephone Encounter - Catina AustinOLU - 11/17/2024 2:15 PM EDT Images from the original note were not included. [employer] PA rec'd and completed for phentermine topiramateER. This was denied per pts insurance. Note from payer: Request Reference Number: [id number]. QSYMIA CAP 11.25-69 is denied due to [...] Document Pharmacy Benefits Open Encounter WANDA REYNA [facility] ([employer]_IRX) Covered: Retail, Mail Order Unknown: Specialty, Long-Term Care BIN: [id number] : 1980 Group ID: [id number] PCN: [id number] Legal sex: F Group name: Address: [address] [place] [address] Medication Being Authorized phentermine-topiramate ER (QSYMIA) 11.25-69 mg 24 Hr Capsule Take 1 capsule by mouth once daily for 90 days. BMI 31.32 Dispense: 90 capsule Refills: 1 Start: 11/17/2024 End: 02/15/2025 Class: Normal Diagnoses: Obesity, Class I, BMI 30-34.9; Inflammatory polyarthropathy (HCC); Dyslipidemia This order has been released to its destination. To be filled at: e- [facility] [id number] - [address] - [phone] [facility]04-17-2025 Miscellaneous Notes* Telephone Encounter - Catina Austin LPN - 11/17/2024 2:15 PM EDT Images from the original note were not included. [employer] PA rec'd and completed for phentermine topiramateER. This was denied per pts insurance. Note from payer: Request Reference Number: [id number]. QSYMIA CAP 11.25-69 is denied due to [...] Priorauth In Document Pharmacy Benefits Open Encounter REYNAWANDA Xiao [facility] ([employer]IRX) Covered: Retail, Mail Order Unknown: Specialty, Long-Term Care BIN: [id number] : 1980 Group ID: [id number] PCN: [id number] Legal sex: F Group name: Address: [address] [place] [address] Medication Being Authorized phentermine-topiramate ER (QSYMIA) 11.25-69 mg 24 Hr Capsule Take 1 capsule by mouth once daily for 90 days. BMI 31.32 Dispense: 90 capsule Refills: 1 Start: 11/17/2024 End: 02/15/2025 Class: Normal Diagnoses: Obesity, Class I, BMI 30-34.9; Inflammatory polyarthropathy (HCC); Dyslipidemia This order has been released to its destination. To be filled at: e- [place] [address] - [address] - [phone] documented in this encounterDunlap Memorial Hospital04-17-2025 NoteHNO ID: [id number] Author: HILTON DOTY, DO Service: ? Author [...] SE Currently She had CT chest at [facility] for her dyspnea symptoms- this testing was normal appearing on review She also had ECHOCARDIOGRAM at [facility] for her dyspnea symptoms- this testing was [...] as d/w her today (more content not included)...[facility]04-17-2025 History of Present illness Narrative* Hilton Doty, [...] SE Currently She had CT chest at [facility] for her dyspnea symptoms- this testing was normal appearing on review She also had ECHOCARDIOGRAM at [facility] for her dyspnea symptoms- this testing was [...] - ICD9: 714.9, ICD10: M06.4 F/u with Chart Picker - QSYMIA 11.25 MG-69 MG CAPSULE, EXTENDED [...] - ICD9: 627.2, ICD10: N95.1 F/u with OUTER DIAMETER GRINDER Affecting her symptoms likely 7. SOB (shortness [...] with more than 50% of the total rjoh-xm-udte time of the visit in counseling / coordination of care. Return if no improvement. Follow up with Hilton Doty DO. To ER if develops chest pain, shortness of breath. Discussed risks, benefits, alternatives, and potential side effects of medications. Patient/Guardian expressed understanding and agreed with the plan. See patient instructions. Hilton Doty DO [address] [place] [address] documented in this encounterDunlap Memorial Hospital04-16-2025 Instructions* Patient Instructions* Hilton Doty DO - 11/16/2024 7:53 PM EDT Magnesium glycinate 500-800 mg in the evening Powder or pill documented in this encounterDunlap Memorial Hospital04-11-2025 Telephone encounter Note * Telephone Encounter - Lois Rod MA - 11/11/2024 1:17 PM EDT Pt informed via message Lois Rod MA [facility]04-11-2025 Miscellaneous Notes* Telephone Encounter - Lois Rod MA - 11/11/2024 1:17 PM EDT Pt informed via MC message Lois Rod MA * Telephone Encounter - Anna Sheikh APRN.CNP - 11/11/2024 1:[address] looks completely normal, no concerns. Anna Sheikh APRN.CNP * Telephone Encounter - Ariana Schwarz MA - 11/11/2024 10:39 AM EDT Pt completed CT Chest at [facility]. Results have been scanned into [employer] for Provider to review. Please review under imaging tab. Ariana Schwarz MA documented in this encounterDunlap Memorial Hospital04-11-2025 Telephone encounter Note * Telephone Encounter - Anna Sheikh APRN.CNP - 11/11/2024 1:[address] looks completely normal, no concerns. Anna Sheikh APRN.FEI [facility] Work Phone: 1(896) 838-762104-11-2025 Telephone encounter Note* Telephone Encounter - Ariana Schwarz MA - 11/11/2024 10:39 AM EDT Pt completed CT Chest at [facility]. Results have been scanned into [employer] for Provider to review. Please review under imaging tab. Ariana Schwarz MA [facility]04-11-2025 Radiology Diagnostic study note [facility] Imaging Services [address] [place] [id number] Chest without Contrast MR#: [id number] Acct: [id number] Name: WANDA REYNA Rep #: [id number] : 1980 F 44 From: Michael Smith MD PCP: Dr. Hilton Doty, Status: RE G CLI Study:Chest without Contrast Date of Exam: 11/10/24 Exam# [id number] Ordering Dr: Hilton Doty DO PROCEDURE: CHEST [...] the chest. Status post cholecystectomy. Reading Location: [facility] CC: Dr. Hilton Doty, DO ~ Welder Fitter: Signed [facility]04-04-2025 Telephone encounter Note* Telephone Encounter - Anna Sheikh APRN.CNP - 11/04/2024 8:06 AM EDT Noted, thank you Anna Sheikh APRN.CNP [facility] Work Phone: 1([phone]) 152-356904-04-2025 Miscellaneous Notes* Telephone Encounter - Anna Sheikh APRN.CNP - 11/04/2024 8:06 AM EDT Noted, thank you Anna Sheikh APRN.AUTO GLASS WORKER * Telephone Encounter - Catina Austin LPN [...] alternative if needed. Thank you, Lisa Doll APRN.FEI * Telephone Encounter - Catina Austin LPN [...] INFO: PROVIDER: Hilton Doty documented in this encounterDunlap Memorial Hospital04-02-2025 Evaluation note* Diagnosis Onset Date Resolution Status Admit Date Varicose veins of lower extremity noneactive November 02, 2024 11:30am Encounter for routine gynecological examination noneactive December 122024 9:20am Symptomatic varicose veins chronic December 19, 2024 3:31pm [facility] Work Phone: 1(269) 962-406304-02-2025 Evaluation note* Diagnosis Onset Date Resolution Status Admit Date Varicose veins of lower extremity noneactive November 02, 2024 11:30am Encounter for routine gynecological examination noneactive December 122024 9:20am Symptomatic varicose veins chronic December 19, 2024 3:31pm Venous insufficiency acute January 13, 2025 7:58am [facility] Work Phone: 1(708) 817-700304-02-2025 Evaluation note* Diagnosis Onset Date Resolution Status Admit Date Varicose veins of lower extremity noneactive November 02, 2024 11:30am Encounter for routine gynecological examination noneactive December 122024 9:20am Symptomatic varicose veins chronic December 19, 2024 3:31pm Venous insufficiency chronic January 13, 2025 7:58am Venous insufficiency chronic February 06, 2025 12:56pm [facility] Work Phone: 1(121) 579-422004-02-2025 Telephone encounter Note* Telephone Encounter - Catina Austin LPN - 11/02/2024 11:37 AM EDT Called the pharmacy and they report the generic azeliac acid would be covered, this is a 15% though. Pt has not picked the rx for the 20% nor has she responded to the pharmacy chart message. [facility]03-28-2025 Telephone encounter Note* Telephone Encounter - Lisa Doll APRN.CNP - 10/28/2024 2:31 PM EDT Please call patient and let her know. She can call insurance for alternative if needed. Thank you, Lisa Doll APRN.AUTO GLASS WORKER [facility]03-28-2025 Telephone encounter Note* Telephone Encounter - [...] Wanda Reyna PATIENT INFO: PROVIDER: Hilton Doty [facility]03-26-2025 Note* Addendum Note - Hilton Doty DO - 10/26/2024 10:05 PM EDTAddended by: HILTON DOTY on: 10/26/2024 10:05 PM Modules accepted: Orders [facility]03-26-2025 Miscellaneous Notes* Addendum Note - Hilton Doty DO - 10/26/2024 10:05 PM EDTAddended by: HILTON DOTY on: 10/26/2024 10:05 PM Modules accepted: Orders documented in this encounterDunlap Memorial Hospital03-26-2025 Instructions* Patient Instructions* Hilton Doty DO - 10/26/2024 6:41 PM EDT Magnesium glycinate 500-800 mg in the evening Powder- Pure encapsulations brand Stop chlorthalidone and potassium when finished Start spironolactone 50 mg a day Recheck labs in 2-3 weeks documented in this encounterDunlap Memorial Hospital03-26-2025 NoteHNO ID: [id number] Author: HILTON DOTY DO Service: ? Author [...] ICD10: E87.6 Stop cholthalidone (more content not included)...[facility] 10-26-2024 History of Present illness Narrative* Hilton [...] if not improving, then consider alternative and physical chemistry professor opinion - AZELAIC ACID 20 % TOPICAL [...] with more than 50% of the total snks-mu-cblj time of the visit in counseling / coordination of care. Return if no improvement. Follow up with Hilton Doty DO. To ER if develops chest pain, shortness of breath. Discussed risks, benefits, alternatives, and potential side effects of medications. Patient/Guardian expressed understanding and agreed with the plan. See patient instructions. Hilton Doty DO [address] [place] [address] documented in this encounterDunlap Memorial Hospital03-20-2025 Telephone encounter Note * Telephone Encounter - Lisa Doll APRN.FEI - 10/20/2024 10:49 AM EDT No need for fluid restriction after getting BNP results as normal and normal kidney function. I would suggest around 60oz of water per day. Thank you, Lisa Doll APRN.AUTO GLASS WORKER [facility]03-20-2025 Miscellaneous Notes* Telephone Encounter - Lisa [...] drink? * Telephone Encounter - Lisa Doll APRN.FEI - [...] suspiciousactivity was identified. 10/20/2024 by Lisa Doll APRN.FEI * Telephone Encounter - Sorin Lan RN - 10/20/2024 9:14 AM EDT Phoned pt and given provider's message below. Pt states she hasn't seen a talent acquisition coordinator since last year. Reports pcp agreed to [...] was elevated mildly. Recommend addressing this with Chart Picker Hilton Doty DO * Telephone Encounter - Ngoc Ervin RN - 10/07/2024 10:18 AM EST Patient asking if Dr. Doty could review her [facility] lab results that were completed 09/22/24 (in scanned docs), as well as her [facility] Vascular Note from 09/08/24 (in scanned docs as well). Pt states there is no [facility]ano to review these records, but wanted Dr. Doty's advise on her lab results, as she sees there are some numbers that are off and she was not feeling well during the time she had her labs drawn. Pt states she will be following up with [facility] Vascular in November. Ngoc Ervin RN documented in this encounterDunlap Memorial Hospital03-20-2025 Telephone encounter Note * Telephone Encounter - Huma Da Silva LPN - 10/20/2024 10:22 AM EDT Pt states understanding. Now asking what is a good amount of of water for her to be drinking? Statesw at last appointment was told to watch fluid intake but with her meds they make her super thirsty.So asking what is an ok amount to drink? T [facility]03-20-2025 Telephone encounter Note* Telephone Encounter - [...] suspiciousactivity was identified. 10/20/2024 by Lisa Doll APRN.FEI T [facility]03-20-2025 Telephone encounter Note* Telephone Encounter - Sorin Lan RN - 10/20/2024 9:14 AM EDT Phoned pt and given provider's message below. Pt states she hasn't seen a talent acquisition coordinator since last year. Reports pcp agreed to [...] asking pcp to refill her lorazepam. Pended. [facility]03-19-2025 Telephone encounter Note* Telephone Encounter - Hilton Doty DO - 10/19/2024 7:57 PM EDT Please inform patient that labs were stable other than CRP was elevated mildly. Recommend addressing this with Chart Picker Hilton Doty DO [facility]03-17-2025 Telephone encounter Note* Telephone Encounter - Lissa Cedillo RN - 10/17/2024 4:40 PM EDT Pt called and is notified of providers results and instructions. Pt voices understanding. Lissa Cedillo RN [facility]03-17-2025 Miscellaneous Notes* Telephone Encounter - Lissa [...] results are back she had done at [facility] on 10/14? See in lab section scanned in. Patient was going to try to go back to work tomorrow but still feels short of breath with not much activity, and fatigued. Please advise documented in this encounterDunlap Memorial Hospital03-17-2025 Telephone encounter Note * Telephone Encounter - Rajinder Hinton APRN.FEI - 10/17/2024 4:24 PM EDT I want her to increase her chlorthalidone to 50mg daily x3 days and let me know if symptoms improve. [facility] Work Phone: 1(595) 852-606203-17-2025 Telephone encounter Note* Telephone Encounter - Simran Méndez RN - 10/17/2024 4:20 PM EDT Patient calls back and states that she does not take lasix. Patient was taken off of lasix. Patienttake chlorthalidone 25 mg daily for edema. Please review and advise, Simran Méndez RN [facility]03-17-2025 Telephone encounter Note* Telephone Encounter - [...] to limit herself to. Lissa Cedillo, RN [facility]03-17-2025 Telephone encounter Note* Telephone Encounter - [...] there is an improvement in her symptoms. [facility]03-17-2025 Telephone encounter Note* Telephone Encounter - Dasia Hopper MA - 10/17/2024 3:26 PM EDT Pt notified and verbalized understanding. Pt asking if you have any further recommendations to help with the SOB in the meantime? Dasia Hopper MA [facility]03-17-2025 Telephone encounter Note* Telephone Encounter - Rajinder Hinton APRN.CNP - 10/17/2024 2:36 PM EDT Please let patient know her BNP is normal. Patient should follow up with Dr. Doty next week as scheduled. [facility]03-17-2025 Telephone encounter Note* Telephone Encounter - Gina Sparks LPN - 10/17/2024 2:28 PM EDT Patient calling asking if her lab results are back she had done at [facility] on 10/14? See in lab section scanned in. Patient was going to try to go back to work tomorrow but still feels short of breath with not much activity, and fatigued. Please advise [facility]03-17-2025 Telephone encounter Note* Telephone Encounter - Dasia Hopper MA - 10/17/2024 10:17 AM EDT New stat order faxed to [facility] Dasia Hopper MA [facility]03-17-2025 Miscellaneous Notes* Telephone Encounter - Dasia Hopper MA - 10/17/2024 10:17 AM EDT New stat order faxed to [facility] Dasia Hopper MA * Telephone Encounter - Rajinder Hinton APRN.CNP - 10/14/2024 3:40 PM EDT New order placed. Please fax to [facility]. * Telephone Encounter - Frank Obando RN - 10/14/2024 3:19 PM EDT Patient calls to report that she is having trouble scheduling ECHO with [facility] until out into November because it doesn't say stat. Patient asking if order can be changed to STAT and sent to [facility] scheduling. Frank Obando RN documented in this encounterDunlap Memorial Hospital03-14-2025 Telephone encounter Note * Telephone Encounter - Rajinder Hinton APRN.CNP - 10/14/2024 3:40 PM EDT New order placed. Please fax to [facility]. [facility]03-14-2025 Telephone encounter Note* Telephone Encounter - Frank Obando RN - 10/14/2024 3:19 PM EDT Patient calls to report that she is having trouble scheduling ECHO with [facility] until out into November because it doesn't say stat. Patient asking if order can be changed to STAT and sent to [facility] scheduling. Frank Obando RN [facility]03-14-2025 NoteHNO ID: [id number] Author: RAJINDER HINTON APRN.AUTO GLASS WORKER Service: ? Author Type: Nurse Practitioner Type: [...] 0.9 % (FLUSH) INJECTION SYRINGE Rajinder Hinton APRN.[facility]03-14-2025 History of Present illness Narrative* Rajinder Hinton APRN.AUTO GLASS WORKER - 10/14/2024 1:21 PM EDT Chief Complaint [...] 0.9 % (FLUSH) INJECTION SYRINGE Rajinder Hinton APRN.AUTO GLASS WORKER documented in this encounterDunlap Memorial Hospital03-13-2025 Radiology Diagnostic study note [facility] Imaging Services [address] [place] [id number] Chest PA and Lateral MR#: [id number] Acct: [id number] Name: WANDA REYNA Rep #: [id number] : 1980 F 44 From: Donovan Almanza MD PCP: Dr. Hilton Doty DO Status: RE G ER Study:Chest PA and Lateral Date of Exam: 10/13/24 Exam# [id number] Ordering Dr: Charlie Lombardo DO PROCEDURE: CHEST [...] IMPRESSION: No acute pulmonary disease. Reading Location: [id number] CC: Dr. Hilton Doty DO; Dr. Charlie Lombardo DO ~ Welder Fitter: Signed [facility]03-13-2025 Telephone encounter Note* Telephone Encounter - Lissa Cedillo RN - 10/13/2024 12:16 PM EDT Protocol recommends go to the ER. Pt is going to [facility] ER. Care plan reviewed with patient. Patient [...] in the last month. Protocols used: Breathing Xlxnbhejrq-PDNYB-GZ [facility]03-13-2025 Miscellaneous Notes* Telephone Encounter - Lissa Cedillo RN - 10/13/2024 12:16 PM EDT Protocol recommends go to the ER. Pt is going to [facility] ER. Care plan reviewed with patient. Patient [...] in the last month. Protocols used: Breathing Jyoehzkjzs-TLLXF-OE documented in this encounterDunlap Memorial Hospital03-07-2025 Telephone encounter Note * Telephone Encounter [...] As needed for edema Ngoc Ervin RN [facility]03-07-2025 Miscellaneous Notes* Telephone Encounter - Ngoc [...] edema Ngoc Ervin RN documented in this encounterDunlap Memorial Hospital03-07-2025 Telephone encounter Note * Telephone Encounter - Ngoc Ervin RN - 10/07/2024 10:18 AM EST Patient asking if Dr. Doty could review her [facility] lab results that were completed 09/22/24 (in scanned docs), as well as her [facility] Vascular Note from 09/08/24 (in scanned docs as well). Pt states there is no [facility] to review these records, but wanted Dr. Doty's advise on her lab results, as she sees there are some numbers that are off and she was not feeling well during the time she had her labs drawn. Pt states she will be following up with [facility] Vascular in November. Ngoc Ervin RN [facility]02-20-2025 Telephone encounter Note* Telephone Encounter - Frank Obando RN - 09/22/2024 12:35 PM EST Patient calls to request lab orders be faxed to [facility]. Faxed to [phone] per request. Frank Obando RN [facility]02-20-2025 Miscellaneous Notes* Telephone Encounter - Frank Obando RN - 09/22/2024 12:35 PM EST Patient calls to request lab orders be faxed to [facility]. Faxed to [phone] per request. Frank Obando RN documented in this encounterDunlap Memorial Hospital02-06-2025 Evaluation note* Diagnosis Onset Date Resolution Status Admit Date Varicose veins of lower extremity noneactive September 08 10:57am [facility] Work Phone: 1(838) 415-810502-06-2025 Evaluation note* Diagnosis Onset Date Resolution Status Admit Date Varicose veins of lower extremity noneactive September 08 10:57am Varicose veins of lower extremity noneactive November 02, 2024 11:30am [facility] Work Phone: 1(906) 571-949702-06-2025 Evaluation note* Diagnosis Onset Date Resolution Status Admit Date Varicose veins of lower extremity noneactive September 08 10:57am Varicose veins of lower extremity noneactive November 02, 2024 11:30am Encounter for routine gynecological examination noneactive December 122024 9:20am [facility] Work Phone: [phone]-2060 Evaluation note* Diagnosis Onset Date Resolution Status Admit Date Varicose veins of lower extremity noneactive September 08 10:57am Varicose veins of lower extremity noneactive November 02, 2024 11:30am Encounter for routine gynecological examination noneactive December 122024 9:20am Symptomatic varicose veins chronic December 19, 2024 3:31pm [employer] Work Phone: [phone] Telephone encounter Note* Telephone Encounter - Gina Sparks LPN - 08/08/2024 10:59 AM EST Patient calling asking to have Vascular referral faxed to Dr Derek Barone [facility] at [phone]. Printed office visit note, consult, face sheet, insurance card copy,and faxed as requested. So patient can get appt set up. [facility]01-06-2025 Miscellaneous Notes* Telephone Encounter - Gina Sparks LPN - 08/08/2024 10:59 AM EST Patient calling asking to have Vascular referral faxed to Dr Derek Barone [facility] at [phone]. Printed office visit note, consult, face sheet, insurance card copy,and faxed as requested. So patient can get appt set up. documented in this encounterDunlap Memorial Hospital12-30-2024 NoteHNO ID: [id number] Author: HILTON DOTY, DO Service: ? Author [...] of these veins surgically by specialist at [facility] where she works Inflammatory polyarthropathy, symptoms have been stable. Use of plaquenil as prescribed. Getting yearly eye examination Edema, use of chlorthalidone medication and potassium supplement Mood, admits to recently being stressed but feels she is in a better job position than previous. She is working with Psychiatrist office Dr. Oliveros at [facility]. She feels that her perimenopausal symptoms are bothering her. She is going to further discuss with OUTER DIAMETER GRINDER as well. PAST MEDICAL HISTORY Diagnosis Date [...] surgically, she wants to see surgeon at [facility] where she works - CONSULT TO VASCULAR SURGERY 2. Hypokalemia - ICD9: 276.8, ICD10: E87.6 Recheck labs as ordered Continue potassium supplement - COMPREHENSIVE METABOLIC PANEL - COMPLETE BLOOD COUNT AND DIFFERENTIAL - THYROID STIMULATING HORMONE 3. LIVIA (generalized anxiety disorder) - ICD9: 300.02, ICD10: F41.1 Increase dose of wellbutrin D/w OUTER DIAMETER GRINDER regarding perimenopause and how this is also affecting her mood and management of her mood. - BUPROPION HCL 75 MG TABLET 4. Situational depression - ICD9: 309.0, ICD10: F43.21 Increase dose of wellbutrin D/w OUTER DIAMETER GRINDER regarding perimenopause and how this is also affecting her mood and management of her mood. - BUPROPION HCL 75 MG TABLET 5. Obesity, Class I, BMI 30-34.9 - ICD9: 278.00, ICD10: E66.811 Increase dose of wellbutrin D/w OUTER DIAMETER GRINDER regarding perimenopause and how this is also affecting her mood and management of her mood. - Lengthy discussion in office today regarding diet and exercise. Discussed use of small plate to eat meals from, drink 1 glass of water 10-15 minutes prior to eating (more content not included)...[facility]12-30-2024 History of Present illness Narrative* Hilton Doty, [...] of these veins surgically by specialist at [facility] where she works Inflammatory polyarthropathy, symptoms have been stable. Use of plaquenil as prescribed. Getting yearly eye examination Edema, use of chlorthalidone medication and potassium supplement Mood, admits to recently being stressed but feels she is in a better job position than previous. She is working with Psychiatrist office Dr. Oliveros at [facility]. She feels that her perimenopausal symptoms are bothering her. She is going to further discuss with OUTER DIAMETER GRINDER as well. PAST MEDICAL HISTORY Diagnosis Date [...] surgically, she wants to see surgeon at [facility] where she works - CONSULT TO VASCULAR SURGERY 2. Hypokalemia - ICD9: 276.8, ICD10: E87.6 Recheck labs as ordered Continue potassium supplement - COMPREHENSIVE METABOLIC PANEL - COMPLETE BLOOD COUNT AND DIFFERENTIAL - THYROID STIMULATING HORMONE 3. LIVIA (generalized anxiety disorder) - ICD9: 300.02, ICD10: F41.1 Increase dose of wellbutrin D/w OUTER DIAMETER GRINDER regarding perimenopause and how this is also affecting her mood and management of her mood. - BUPROPION HCL 75 MG TABLET 4. Situational depression - ICD9: 309.0, ICD10: F43.21 Increase dose of wellbutrin D/w OUTER DIAMETER GRINDER regarding perimenopause and how this is also affecting her mood and management of her mood. - BUPROPION HCL 75 MG TABLET 5. Obesity, Class I, BMI 30-34.9 - ICD9: 278.00, ICD10: E66.811 Increase dose of wellbutrin D/w OUTER DIAMETER GRINDER regarding perimenopause and how this is also [...] is going to follow up with her Resource Recovery Specialist as well. - QSYMIA 11.25 MG-69 MG CAPSULE, EXTENDED RELEASE 6. Inflammatory polyarthropathy (HCC) - ICD9: 714.9, ICD10: M06.4 See above F/u with Chart Picker. - QSYMIA 11.25 MG-69 MG CAPSULE, EXTENDED [...] 714.9, ICD10: M19.90 See above F/u with Chart Picker. - HYDROXYCHLOROQUINE 200 MG TABLET 9. Perimenopausal symptoms - ICD9: 627.2, ICD10: N95.1 Follow up with OUTER DIAMETER GRINDER Hilton Doty DO Return if no improvement. Follow up with Hilton Doty DO. To ER if develops chest pain, shortness of breath. Discussed risks, benefits, alternatives, and potential side effects of medications. Patient/Guardian expressed understanding and agreed with the plan. See patient instructions. Hilton Doty DO [address] [place] [address] documented in this encounterDunlap Memorial Hospital11-29-2024 Telephone encounter Note * Telephone Encounter [...] Sparks LPN July 01, 2024 11:29 AM [facility]11-29-2024 Miscellaneous Notes* Telephone Encounter - Gina [...] 01, 2024 11:29 AM documented in this encounterDunlap Memorial Hospital10-17-2024 Telephone encounter Note * Telephone Encounter - Lois Rod MA - 05/19/2024 10:00 AM EDT Pt informed via [facility] message Lois Rod MA [facility]10-17-2024 Miscellaneous Notes* Telephone Encounter - Lois [...] night thank you ! documented in this encounterDunlap Memorial Hospital10-17-2024 Telephone encounter Note * Telephone Encounter - Anna Sheikh APRN.CNP - 05/19/2024 9:54 AM EDT At this point she has not opened any Saturdays. Anna Sheikh APRN.CNP [facility]10-10-2024 Telephone encounter Note* Telephone Encounter - Lois Rod MA - 05/12/2024 7:17 AM EDT Please see [facility] message-- Ms Dr Doty at last visit you said [...] rest of your night thank you ! [facility]10-10-2024 Telephone encounter Note* Telephone Encounter - Lois Rod MA - 05/12/2024 7:09 AM EDT Turned into JENNY Rod MA [facility]10-10-2024 Miscellaneous Notes* Telephone Encounter - Lois Rod MA - 05/12/2024 7:09 AM EDT Turned into TE Lois Rod MA documented in this encounterDunlap Memorial Hospital09-25-2024 Telephone encounter Note * Telephone Encounter - Lois Rod MA - 04/27/2024 6:53 PM EDT Pt informed, verbalized understanding Lois Rod MA [facility]09-25-2024 Miscellaneous Notes* Telephone Encounter - Lois [...] View External Labs - Miscellaneous Lab [ID [id number]] View External Labs - Miscellaneous Lab [ID [id number]] View External Labs - Miscellaneous Lab [ID [id number]] documented in this encounterDunlap Memorial Hospital09-25-2024 Telephone encounter Note * Telephone Encounter [...] with meals. Recheck potassium in 3-4 days Hitlon Doty DO [facility]09-25-2024 Telephone encounter Note* Telephone Encounter - Lois Rod MA - 04/27/2024 8:41 AM EDT Lab results attached. Lois Rod MA View External Labs - Miscellaneous Lab [ID [id number]] View External Labs - Miscellaneous Lab [ID [id number]] View External Labs - Miscellaneous Lab [ID [id number]] [facility]09-23-2024 Instructions* Patient Instructions* Hilton Doty DO - 04/25/2024 10:51 AM EDT Magnesium glycinate or gluconate 400-500 mg in the evening Vitamin B complex daily in the morning. Take as liquid supplement with at least 1000 mcg vitamin B12, documented in this encounterDunlap Memorial Hospital09-23-2024 History of Present illness Narrative* Hilton Doty [...] aswell. would also be interested in seeing Resource Recovery Specialist at [facility] Currently Has been having increased stressors at [...] day, needs to make follow up with Chart Picker. Mood, struggling with being stressed due to [...] and exercise aswell. she has been seeing Resource Recovery Specialist at [facility] PAST MEDICAL HISTORY Diagnosis Date MAXIM positive [...] normal negative CXR and work up at [facility] EMERGENCY DEPARTMENT - COMPLETE BLOOD COUNT AND DIFFERENTIAL 3. Hypokalemia - ICD9: 276.8, ICD10: E87.6 Labs as ordered Likely related to the hypokalemia, need to start on medication for potassium replacement- start on once a day supplement and recheck labs as ordered. rx sent to pharmacy Had otherwise normal negative CXR and work up at [facility] EMERGENCY DEPARTMENT - POTASSIUM CHLORIDE ER 10 MEQ TABLET,EXTENDED RELEASE - COMPREHENSIVE METABOLIC PANEL 4. Fatigue, unspecified type - ICD9: 780.79, ICD10: R53.83 Labs as ordered Likely related to the hypokalemia, need to start on medication for potassium replacement- start on once a day supplement and recheck labs as ordered. rx sent to pharmacy Had otherwise normal negative CXR and work up at [facility] EMERGENCY DEPARTMENT - VITAMIN B12 - VITAMIN D 25 HYDROXY 5. Inflammatory arthritis - ICD9: 714.9, ICD10: M19.90 Continue plaquenil, f/u with Chart Picker 6. Bilateral leg edema - ICD9: 782.3, [...] agreed with the plan. Hilton Doty DO [address] [place] [address] documented in this encounterDunlap Memorial Hospital08-30-2024 Telephone encounter Note * Telephone Encounter - Anan Sheikh APRN.CNP - 04/01/2024 11:11 AM EDT [...] was identified. 04/01/2024 by Anna Sheikh CNP. [facility]08-30-2024 Miscellaneous Notes* Telephone Encounter - Anna [...] Anna Sheikh CNP. * Telephone Encounter - Lashayarmin RoxOLU - 04/01/2024 9:54 AM EDT Prescription Refill [...] 01, 2024 9:40 AM documented in this encounterDunlap Memorial Hospital08-30-2024 Telephone encounter Note * Telephone Encounter [...] Knox LPN April 01, 2024 9:54 AM [facility]08-30-2024 Telephone encounter Note* Telephone Encounter - Char Morse - 04/01/2024 9:41 AM EDT Patient is also asking for a refill of lorazepam; not on current med list. Please review and add to refill request if appropriate. [facility]08-30-2024 Telephone encounter Note* Telephone Encounter - Char [...] Char Garcia April 01, 2024 9:40 AM [facility]08-15-2024 Telephone encounter Note* Telephone Encounter - Losi Rod MA - 03/17/2024 2:58 PM EDT [...] Please advise. Thank you. Lois Rod MA. [facility]08-15-2024 Miscellaneous Notes* Telephone Encounter - Lois [...] you. Lois Rod MA. documented in this encounterDunlap Memorial Hospital07-08-2024 History of Present illness Narrative* Ibeth Ludwig, RT(R) - 02/08/2024 4:40 PM EDT Radiology Service Progress Note PATIENT NAME: Wanda Reyna DATE OF SERVICE: February 08, 2024 [...] PATIENT PRESENTS WITH AN IMPLANTABLE OR ATTACHED DEPARTMENT HEAD: No RADIOLOGY DEPARTMENT: General X-ray: Exam(s) Completed: Spine X-Ray(s): Thoracic and Lumbar AP / LAT / L5-S1 PERIPHERAL IV DATA: Not applicable SIGNED BY: RT Meaghan(R) February 08, 2024 4:53 PM documented in this encounterDunlap Memorial Hospital07-08-2024 Instructions* Patient Instructions* Doris Mendez APRN.CNS - 02/08/2024 4:34 PM EDT 1) Get X-rays today 2) Continue naproxen 3) Methocarbamol 500 mg 3 x day 4) Alternating heat 5) Keep Willow appt. documented in this encounterDunlap Memorial Hospital07-08-2024 History of Present illness Narrative* Doris Mendez APRN.CNS - 02/08/2024 4:09 PM EDT This is a 44 year old female who presents today with: Patient presents with: ER F/U: [facility] 02/05/24 Fall HISTORY OF PRESENT ILLNESS: Wanda Reyna is a 44 year old female. Patient presents with: ER F/U: [facility] 02/05/24 Fall Fell backwards off a 4 [...] as needed for worsening/no improvement. LIBRADO Whiting/ HOSE OPERATOR documented in this encounterDunlap Memorial Hospital06-24-2024 History of Present illness Narrative* Hilton Doty, - 01/25/2024 7:35 AM EDT CC: Wanda Reyna is a 43 year old female who presents to the office for follow up HPI: Inflammatory polyarthropathy, no signs of retinal concerns for her plaquenil monitoring. states haddilated eye exam by Dr. Genao in May 2023 last, has this exam yearly. Doesn't currently have a Chart Picker since she needs to establish with a [...] well. she recently was able to see Resource Recovery Specialist at [facility] with benefit Mood, feels she is overall [...] with the plan. Hilton Doty DO [address] [place] [address] documented in this encounterDunlap Memorial Hospital06-19-2024 Instructions* Patient Instructions* Hilton Doty DO - 01/20/2024 7:37 PM EDT Magnesium citrate 400-500 mg in the evening documented in this encounterDunlap Memorial Hospital05-30-2024 Telephone encounter Note * Telephone Encounter - Rox Knox LPN - 12/31/2023 7:25 AM EDT [facility]-10/21/23 Labs-09/02/23Jun-01/20/24 Rox Knox LPN [facility]05-30-2024 Miscellaneous Notes* Telephone Encounter - oRx Knox LPN - 12/31/2023 7:25 AM EDT [facility]-10/21/23 Labs-09/02/23Jun-01/20/24 Rox Knox LPN documented in this encounterDunlap Memorial Hospital05-30-2024 Telephone encounter Note * Telephone Encounter - Rox Knox LPN - 12/31/2023 7:24 AM EDT [facility]-10/21/23 Labs-09/02/23Jun-01/20/24 Rox Knox LPN [facility]05-30-2024 Miscellaneous Notes* Telephone Encounter - Rox Knox LPN - 12/31/2023 7:24 AM EDT [facility]-10/21/23 Labs-09/02/23Jun-01/20/24 Rox Knox LPN documented in this encounterDunlap Memorial Hospital05-30-2024 Telephone encounter Note * Telephone Encounter - Rox Knox LPN - 12/31/2023 7:23 AM EDT [facility]-10/21/23 Labs-09/02/23Jun-01/20/24 Rox Knox LPN [facility]05-30-2024 Miscellaneous Notes* Telephone Encounter - Rox Knox LPN - 12/31/2023 7:23 AM EDT [facility]-10/21/23 Labs-09/02/23Jun-01/20/24 Rox Knox LPN documented in this encounterDunlap Memorial Hospital03-21-2024 Miscellaneous Notes* Telephone Encounter - Ariana Schwarz Ma - 10/22/2023 9:44 AM EDT Orders/Referrals updated in Epic for [facility]. Referral to [facility] Nutrition faxed to [phone]. Sent most recent OV notes, referral and facesheet. Mamm/US order faxed to [facility] at [phone] with facesheet. Pt sent [employer] message notifying her that this this has been completed. Made pt aware she would need to contact [facility] to setup Imaging, but Nutrition should contact her to setup appt. To update officeif any issues. Ariana Schwarz Ma * Telephone Encounter - Hilton Doty DO - 10/21/2023 9:17 PM EDT Please fax orders to [facility] for breast US, mammogram as well as nutrition referral. These were ordered today Hilton Doty DO documented in this encounterDunlap Memorial Hospital03-20-2024 History of Present illness Narrative* Hilton [...] aswell. would also be interested in seeing Resource Recovery Specialist at [facility] PAST MEDICAL HISTORY Diagnosis Date MAXIM positive [...] breast 6 months from previous testing - [facility] - US BREAST LTD RIGHT [...] See patient instructions. Hilton Doty DO [address] [place] [address] documented in this encounterDunlap Memorial Hospital03-04-2024 Miscellaneous Notes* Telephone Encounter - Leo Méndez APRN.CNP - 10/05/2023 2:36 PM EST I called and spoke with Dr. Genao. She stated she did not contact our office. Advised that her lastHCQ eye exam was normal and patient can continue HCQ. Leo Méndez APRN.CNP * Telephone Encounter - Norma Aburto - 10/05/2023 12:[address] Priscilla Genao's office called to speak with Dr. Conner regarding the patients eye exam and plaquenil. Please call [phone] documented in this encounterDunlap Memorial Hospital02-13-2024 Miscellaneous Notes* Telephone Encounter - Char [...] Doty, as it relates to Lupus. Patient's OUTER DIAMETER GRINDER mentioned to her that patients with Lupus [...] advise patient. Thank you. documented in this encounterDunlap Memorial Hospital02-13-2024 Nurse Note* Rodolfo Salas MA - 09/15/2023 8:28 AM EST PLQ eye exam done on 05/26/2023. No evidence of PLQ toxicity. Report sent for scanning. Rodolfo Salas MA documented in this encounterDunlap Memorial Hospital02-12-2024 Miscellaneous Notes* Telephone Encounter - Rodolfo [...] to pursue a hysterectomy further with her OUTER DIAMETER GRINDER. Thanks, Leo Méndez APRN.FEI * Telephone Encounter - Jo-Ann Roque - 09/14/2023 3:06 PM EST Patient has been plagued by female issues. She is at a point where she needs to make a decision on whether to go forward with hysterectomy (partial or complete) and is seeking input from Dr Conner as it relates to Lupus. Patient's OUTER DIAMETER GRINDER mentioned to her that patients with Lupus [...] to have results faxed. documented in this encounterDunlap Memorial Hospital02-01-2024 Nurse Note* Rodolfo Salas MA - 09/03/2023 9:36 AM EST Labs done on 09/02/2023. Report given to provider for review. TEST RESULTS RANGE WBC 8.7 4.4-11.0 HGB 14.7 12.0-15.0 HCT 44.5 37-47 PLT 301 150-450 AST 12 15-37 ALT 28 13-56 CR 0.90 0.55-1.02 documented in this encounterDunlap Memorial Hospital01-10-2024 NotePap Smear Specimen AdequacyJanuary 2023 1:46pmComment.Satisfactory for evaluation. Endocervical and/or squamous metaplasticcells (endocervical component)are present.[facility] INTERFACED A#[id number] Health Washington TownshipComment on above: Satisfactory for evaluation. Endocervical and/or squamous metaplasticcells (endocervical component)are present.08-12-2023 NotePap Smear Specimen Adequacy August 12, 2023 1:46pmComment.Satisfactory for evaluation. Endocervical and/or squamous metaplasticcells (endocervical component)are present.[facility] INTERFACED A#[id number] Health Washington TownshipComment on above:Satisfactory for evaluation. Endocervical and/or squamous metaplasticcells (endocervical component)are present.08-12-2023 NotePap Smear Specimen AdequacyJanuary 2023 2:46pmComment.Satisfactory for evaluation. Endocervical and/or squamous metaplasticcells (endocervical component)are present.[facility] INTERFACED A#[id number] Health Washington TownshipComment on above:Satisfactory for evaluation. Endocervical and/or squamous [...] [facility], [facility]. No evidence of PLQtoxicity. Patient is notified to have PLQ eye exam done EROS and verbalized understanding. Fax results to [phone]. LAST APPOINTMENT: 08/28/2022 UPCOMING APPOINTMENT: 09/02/2023 LABS: [...] notify patient. Norma Garcia documented in this encounterDunlap Memorial Hospital11-14-2023 Miscellaneous Notes* Telephone Encounter - Rox Villarreal RN - 06/16/2023 8:50 AM EST Pt called and given results and Dr. Doty's information. * Telephone Encounter - Lissa Cedillo RN - 06/16/2023 8:41 AM EST Called and left a voicemail for the Patient to call back and ask for a nurse to receive the providers message. Lissa Babulski, RN * Telephone Encounter - Hilton Doty [...] nervous. Winnie Monge LPN documented in this encounterDunlap [facility] Hospital11-01-2023 History of Present illness Narrative* Hilton [...] with supplements or by diet (goal of [id number] mg/day - CINDY SCREENING 8. Dyslipidemia - ICD9: 272.4, ICD10: [...] plan. See patient instructions. Hilton Doty DO [address] [place] [address] documented in this encounterDunlap Memorial Hospital10-02-2023 Miscellaneous Notes* Telephone Encounter - Huma Da [...] and advise. Ngoc Garcia documented in this encounterDunlap Memorial Hospital09-12-2023 Miscellaneous Notes* Telephone Encounter - Rodolfo [...] month.She cannot afford an uncovered appointment, owing [facility] $1000 already. She cancelled theappointment with Dr Junior on 04/16/23 for these reasons. She asks that her medication hydrOXYchloroQUINE (PLAQUENIL) 200 mg tablet be sent to [facility]. Patient has only 4 or 5 tablets left. She asked for a 90-day prescription. She expects to be insured May 03, 2023. She says that she is doing really well and that she checks in with her PCP regularly. Patient will reschedule when she know whether or not [facility] is in what will be her new insurance through [facility]. If Dr Junior requires that she have labs, patient said that she canget them done at [facility] at a reduced cost. Please assist. documented in this encounterDunlap Memorial Hospital09-01-2023 Miscellaneous Notes* Telephone Encounter - Frank [...] you. Frank Obando RN documented in this encounterDunlap Memorial Hospital08-01-2023 History of Present illness Narrative* Hilton Doty, - 03/03/2023 6:42 AM EDT CC: Wanda [...] months ago. 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 Leg edema has improved, has diuretic to take as needed HPL, making diet changes as above and weight loss. Undifferentiated connective tissue disease, sicca syndrome, Inflammatory arthropathy, taking Plaquenil, will be following up with her Chart Picker. PAST MEDICAL HISTORY Diagnosis Date MAXIM positive [...] - ICD9: 714.9, ICD10: M06.4 F/u with Chart Picker, chronic, stable. 3. Obesity, Class I, BMI [...] plan. See patient instructions. Hilton Doty DO [address] [place] [address] documented in this encounterDunlap Memorial Hospital06-28-2023 Miscellaneous Notes* Telephone Encounter - Char Valencia LPN - 01/28/2023 9:45 AM EDT Pt. informed Dr. Doty is on Vacation. Message left. * Telephone Encounter - Chikis Sánchez Pss - 01/27/2023 3:06 PM EDT Patient insurance is changing after February 07. Is there any way patient cn be squeezed in this week ornext? Please advise and call patient. documented in this encounterDunlap Memorial Hospital06-06-2023 Miscellaneous Notes* Telephone Encounter - Jaja Motley MA - 01/06/2023 11:39 AM EDT Patient has been identified by name and date of : Yes RX INSTRUCTIONS: Patient aware RX will be sent to pharmacy. No need to notify patient. PLQ [facility] done [facility]2022 [facility]. No evidence of PLQtoxicity. LAST APPOINTMENT: 08/28/2022 [...] stop taking it. Script to go to [employer] [employer] mail order documented in this encounterDunlap Memorial Hospital04-27-2023 History of Present illness Narrative* Hilton [...] months ago. 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 Undifferentiated connective tissue disease, sicca syndrome, Inflammatory arthropathy, taking Plaquenil, will be following up with her Chart Picker. PAST MEDICAL HISTORY Diagnosis Date MAXIM positive [...] plan. See patient instructions. Hilton Doty DO [address] [place] [address] documented in this encounterDunlap Memorial Hospital04-24-2023 Instructions* Patient Instructions* Hilton Doty DO - 11/24/2022 2:47 PM EDT Fresca soda Or Gingerale without sugar or Sprite PRIME drinks- strawberry watermelon is good documented in this encounterDunlap Memorial Hospital03-28-2023 History of Present illness Narrative* Hilton [...] months ago. She is now working for [employer] and quit her previous job due to [...] Plaquenil, will be following up with her Chart Picker. PAST MEDICAL HISTORY Diagnosis Date MAXIM positive [...] plan. See patient instructions. Hilton Doty DO [address] [place] [address] documented in this encounterDunlap Memorial Hospital03-24-2023 Instructions* Patient Instructions* Hilton Doty DO - 10/24/2022 12:17 PM EDT Magnesium supplement at supper 400-500 mg Can consider doing magnesium glycinate, magnesium gluconate supplement for the kind of magnesium documented in this encounterDunlap Memorial Hospital03-09-2023 Miscellaneous Notes* Telephone Encounter - Lois Holiday - 10/09/2022 10:48 AM EST Patient scheduled Lois Holiday * Telephone Encounter - Hilton Doty DO - 10/08/2022 9:44 PM EST Please make patient follow up appt with me on 10/15 (Thursday) at 720 pm, she is aware of appt timeand date Hilton Doty DO documented in this encounterDunlap Memorial Hospital01-26-2023 Instructions* Patient Instructions* Priscilla Junior MD [...] up in 6 months documented in this encounterDunlap Memorial Hospital01-26-2023 History of Present illness Narrative* Priscilla Junior MD - 08/28/2022 11:59 AM EST Images from the original note were not included. Rheumatology FOLLOW UP VISIT Date of Service: 08/28/2022 Patient: Wanda Reyna Medical Record: [id number] Primary Care Physician: Hilton Doty DO Last [...] had been maintained on hydroxychloroquine by previous talent acquisition coordinator outside of [facility] system and was doing well. Shehas [...] dactylitis, enthesitis, synovitis, tendinitis LABS Reviewed in Epic, notable for: CBC Latest Ref Rng & [...] DNA ANTIBODY W/CONFIRMATION <30 IU/mL - <12 BACK WEDGER ANTIBODY <1.0 AI - 0.2 SSA ANTIBODY <1.0 AI - <0.2 SSB ANTIBODY <1.0 AI - 0.5 MELISSA-1 ANTIBODY, IGG <1.0 AI - <0.2 RIBOSOMAL BACK WEDGER <1.0 AI - <0.2 SM ANTIBODY <1.0 [...] - - 0.1 - IMAGING Reviewed in [facility], notable for: No new imaging ASSESSMENT Wanda [...] which included preparing to see the patient, [id number] patient care, completing clinical documentation, obtaining and/or reviewing separately obtained history, performing a medically appropriate examination, counseling and educating the pat ient/family/caregiver, and ordering medications, tests, or procedures. This note was partially generated with the assistance of [employer] voice recognition software. An attempt was made to correct any dictation errors however there may be some incorrect words, spellings, and punctuation. Priscilla Junior MD Rheumatology Date: August 28, 2022 Time: 11:59 AM documented in this encounterDunlap Memorial Hospital12-28-2022 Miscellaneous Notes* Telephone Encounter - Char [...] MC message turned into TE. Wanda Reyna [facility] My Chart Rx Pool (supporting [...] verified. Dasia Pedroza MA documented in this encounterDunlap Memorial Hospital12-27-2022 Miscellaneous Notes* Telephone Encounter - Dasia Pedroza MA - 07/29/2022 11:05 AM EST MC message turned into TE. 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 PAST MEDICAL HISTORY Diagnosis Date MAXIM positive [...] ICD10: M06.4 - rx refilled, f/u with Chart Picker - QSYMIA 11.25 MG-69 MG CAPSULE, EXTENDED [...] agreed with the plan. Hilton Doty DO [address] [place] [address] documented in this encounterDunlap Memorial Hospital11-23-2022 Nurse Note* Rodolfo Salas MA - 06/25/2022 10:19 AM EST PLQ eye exam done on 05/20/2022 at [facility]. No evidence of PLQtoxicity. Report sent for scanning. Rodolfo Salas MA documented in this encounterDunlap Memorial Hospital10-18-2022 Miscellaneous Notes* Telephone Encounter - Ayde Antonio Ma - 05/20/2022 12:39 PM EDT Last office visit: 04/23/22 F/u scheduled: 07/23/22 Ayde Antonio Ma documented in this encounterDunlap Memorial Hospital09-21-2022 History of Present illness Narrative* Hilton [...] rx is complete. Has been working with Resource Recovery Specialist specialist at [facility] in the Medical nutrition therapy department [...] are also improving. She has met with Resource Recovery Specialist and she has been keeping track of food intake daily. She isalso walking more for exercise and wants to be more diligent with the exercise as well. Is excited to see if this helps her inflammatory arthritis- is taking her medications per Dr. 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 Hilton Doty DO Return if no improvement. Follow up with Hilton Doty DO. To ER if develops chest pain, shortness of breath Discussed risks, benefits, alternatives, and potential side effects of medications. Patient/Guardian expressed understanding and agreed with the plan. See patient instructions. Hilton Doty DO [address] [place] [address] documented in this encounterDunlap Memorial Hospital07-13-2022 History of Present illness Narrative* Delphine Floyd APRN.AUTO GLASS WORKER - 02/12/2022 4:01 PM EDT Wanda is [...] L2 SAB1 IAB0 Ectopic0 Multiple0 Live Births0 Speedometer Inspector History LMP: 12/29/2020, IUD Age at Menarche: Age at First : Age at Menopause: Speedometer Inspector History Comments: Sexual Activity: Yes; Male; tubal [...] external genitalia normal, normal Bartholin's glands, urethra, Robinhood's glands, no vulvar lesions, no cervical lesions, [...] needed Delphine Floyd APRN.FEI documented in this encounterDunlap Memorial Hospital07-02-2022 Miscellaneous Notes* Telephone Encounter - Gina Sparks LPN - 02/01/2022 11:33 AM EDT Patient calling her came home with paper rx for the QSYMIA and she said rx has to go to [facility], [facility]. Pending rx to file. Please advise [...] Provider: HILTON DOTY DO documented in this encounterDunlap Memorial Hospital06-20-2022 Instructions* Patient Instructions* Hilton Doty DO - 01/20/2022 9:46 AM EDT Voltaren 1% gel pea sized amount 1-3 times a day (AM and PM) Can use a thumb spica splint at bed and as needed if thumb worsens. documented in this encounterDunlap Memorial Hospital06-20-2022 History of Present illness Narrative* Hilton [...] rx is complete. Has been working with Resource Recovery Specialist specialist at [facility] in the Medical nutrition therapy department [...] are also improving. She has met with Resource Recovery Specialist and she has been keeping track of food intake daily. She isalso walking more for exercise and wants to be more diligent with the exercise as well. Is excited to see if this helps her inflammatory arthritis- is taking her medications per Dr. 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 HgbA1c greater or equal to 6.5% is considered diagnostic of diabetes. 10/23/2018 5.3 4.3 - 5.6 % Final Comment: [employer] guidelines indicate that patients with [...] ICD9: 714.9, ICD10: M06.4 - f/u with Chart Picker, leg edema has improved. 6. Bilateral leg [...] with the plan. Hilton Doty DO [address] [place] [address] documented in this encounterDunlap Memorial Hospital06-07-2022 Miscellaneous Notes* Telephone Encounter - Hilton [...] AM EDT Please send medication to [facility]. Patient asking for 90 day * Telephone Encounter - Dafne Marks - 01/06/2022 8:17 AM EDT Patient calling today to changing her pharmacy for medication chlorthalidone (HYGROTON) 25 mg tablet. Please send medication to documented in this encounterDunlap Memorial Hospital05-23-2022 Miscellaneous Notes* Telephone Encounter - Rox Knox LPN - 12/23/2021 8:03 AM EDT Patient phones requesting refills as follows: Pending Prescriptions Disp Refills CHLORTHALIDONE 25 MG TABLET 90 tablet 0 Sig: TAKE 1 TABLET BY MOUTH ONCE DAILY NEEDED FOR EDEMA MAZIN: Yes Monica-09/23/21 Labs-04/16/21 NOV-01/20/22 Please review and advise. Rox Knox LPN documented in this encounterDunlap Memorial Hospital05-13-2022 Miscellaneous Notes* Telephone Encounter - Jaja [...] MA * Telephone Encounter - Norma Genao [facility] - 12/13/2021 2:23 PM EDT Patient wanted to know if Dr. Conner would fill her Plaquenil until she is able to be seen. Please advice [facility]* Diagnosis Inflammatory arthritis Unspecified inflammatory polyarthropathy documented in this encounter [facility]* Diagnosis Dyslipidemia- Primary Other and unspecified hyperlipidemia Encounter for screening mammogram for malignant neoplasm of breast Other screening mammogram LIVIA (generalized anxiety disorder) Generalized anxiety disorder Eczematous dermatitis of upper eyelids of both eyes Inflammatory polyarthropathy (HCC) Unspecified inflammatory polyarthropathy Bilateral leg edema Edema Obesity, Class I, BMI 30-34.9 Obesity, unspecified [facility]* Diagnosis Obesity, Class III, BMI 40-49.9 (morbid obesity) (HCC) Morbid obesity documented in this encounter [facility]* Diagnosis Encounter for gynecological examination with abnormal finding- Primary Routine gynecological examination Pain due to intrauterine contraceptive device (IUD), initial encounter (HCC) Postcoital bleeding Vaginal discharge Leukorrhea, not specified as infective documented in this encounter [facility] [place] [facility]* Diagnosis LIVIA (generalized anxiety disorder)- Primary Generalized anxiety disorder Obesity, Class III, BMI 40-49.9 (morbid obesity) (HCC) Morbid obesity Inflammatory polyarthropathy (HCC) Unspecified inflammatory polyarthropathy documented [facility] this encounter [facility]* Diagnosis Dyslipidemia- Primary Other and unspecified hyperlipidemia LIVIA (generalized anxiety disorder) Generalized anxiety disorder Inflammatory polyarthropathy (HCC) Unspecified inflammatory polyarthropathy Obesity, Class I, BMI 30-34.9 Obesity, unspecified Rosacea Bilateral leg edema Edema documented in this encounter [facility]* Diagnosis Inflammatory polyarthropathy (HCC) Unspecified inflammatory polyarthropathy Dyslipidemia Other and unspecified hyperlipidemia Obesity, Class I, BMI 30-34.9 Obesity, unspecified documented in this encounter [facility]* Diagnosis Undifferentiated connective tissue disease (HCC)- Primary Unspecified diffuse connective tissue disease Inflammatory arthritis Unspecified inflammatory polyarthropathy Encounter for long-term (current) use of medications Encounter for long-term (current) use of other medications Facial rash Rash and other nonspecific skin eruption Sicca syndrome (HCC) Sicca syndrome documented in this encounter [facility]* Diagnosis Dyslipidemia- Primary Other and unspecified hyperlipidemia Inflammatory polyarthropathy (HCC) Unspecified inflammatory polyarthropathy Obesity, Class I, BMI 30-34.9 Obesity, unspecified Hot flashes Symptomatic menopausal or female climacteric states Bilateral leg edema Edema documented in this encounter [facility]* Diagnosis LIVIA (generalized anxiety disorder)- Primary Generalized anxiety disorder Inflammatory polyarthropathy (HCC) Unspecified inflammatory polyarthropathy Dyslipidemia Other and unspecified hyperlipidemia Obesity, Class I, BMI 30-34.9 Obesity, unspecified Raynaud's phenomenon without gangrene Situational depression Adjustment disorder with depressed mood documented in this encounter [facility] [place] [facility]* Diagnosis Encounter for screening mammogram for breast cancer documented in this encounter [facility]* Diagnosis Inflammatory arthritis Unspecified inflammatory polyarthropathy documented in this encounter [facility] [place] [facility]* Diagnosis Dyslipidemia- Primary Other and unspecified hyperlipidemia Inflammatory polyarthropathy (HCC) Unspecified inflammatory polyarthropathy Obesity, Class I, BMI 30-34.9 Obesity, unspecified LIVIA (generalized anxiety disorder) Generalized anxiety disorder Raynaud's phenomenon without gangrene Bilateral leg edema Edema Vitamin D deficiency Unspecified vitamin D deficiency documented in this encounter [facility]* Diagnosis Bilateral leg edema Edema documented in this encounter [facility]* Diagnosis Inflammatory arthritis Unspecified inflammatory polyarthropathy documented in this encounter [facility]* Diagnosis LIVIA (generalized anxiety disorder) Generalized anxiety disorder Situational depression Adjustment disorder with depressed mood documented in this encounter [facility]* Diagnosis LIVIA (generalized anxiety disorder)- [...] with other complications documented in this encounter [facility]* Diagnosis Onset Date Resolution Status Abnormal uterine bleeding (AUB) acute Dysmenorrhea chronic Menorrhagia chronic Encounter for IUD removal no neactive [facility] Work Phone: Evaluation note* Diagnosis Inflammatory arthritis Unspecified inflammatory polyarthropathy documented in this encounter [facility]* Diagnosis Onset Date Resolution Status Abnormal uterine bleeding (AUB) acute Dysmenorrhea chronic Menorrhagia chronic Encounter for IUD removal no neactive Abnormal uterine bleeding (AUB) acute Fibroids acute Dysmenorrhea chronic Menorrhagia chronic [facility] Work Phone: Evaluation note* Diagnosis Onset Date Resolution Status Abnormal uterine bleeding (AUB) acute Dysmenorrhea chronic Menorrhagia chronic Encounter for IUD removal no neactive Abnormal uterine bleeding (AUB) acute Fibroids acute Dysmenorrhea chronic Menorrhagia chronic Cervical high risk HPV (leonard n papillomavirus) test positive acute Menorrhagia chronic [facility] Work Phone: Evaluation note* Diagnosis Inflammatory polyarthropathy (HCC)- Primary Unspecified inflammatory polyarthropathy Abnormal mammogram of right breast Obesity, Class I, BMI 30-34.9 Obesity, unspecified Inflammatory arthritis Unspecified inflammatory polyarthropathy Dyslipidemia Other and unspecified hyperlipidemia LIVIA (generalized anxiety disorder) Generalized anxiety disorder Raynaud's phenomenon without gangrene Vitamin D deficiency Unspecified vitamin D deficiency Rosacea documented [facility]* Diagnosis Onset Date Resolution Status [...] posure to other viral communicable disease acute [facility] Work Phone: Evaluation note* Diagnosis Bilateral leg edema Edema documented [facility]* Diagnosis Situational insomnia Transient disorder of initiating or maintaining sleep documented [facility]* Diagnosis Dyslipidemia- Primary Other and unspecified hyperlipidemia LIVIA (generalized anxiety disorder) Generalized anxiety disorder Inflammatory polyarthropathy (HCC) Unspecified inflammatory polyarthropathy Obesity, Class I, BMI 30-34.9 Obesity, unspecified Bilateral leg edema Edema Vitamin D deficiency Unspecified vitamin D deficiency Situational depression Adjustment disorder with depressed mood [facility]* Diagnosis Lower thoracic back pain- Primary Acute low back pain with sciatica, sciatica laterality unspecified, unspecified back pain laterality Lower thoracic back pain Acute low back pain with sciatica, sciatica laterality unspecified, unspecified back pain laterality [facility] Diagnosis Inflammatory arthritis Unspecified inflammatory polyarthropathy Bilateral leg edema Edema LIVIA (generalized anxiety disorder) Generalized anxiety disorder [facility]* Diagnosis Lower thoracic back pain Acute low back pain with sciatica, sciatica laterality unspecified, unspecified back pain laterality documented [facility]* Diagnosis Nausea- Primary Nausea alone SOB (shortness of breath) Shortness of breath Hypokalemia Hypopotassemia Fatigue, unspecified type Inflammatory arthritis Unspecified inflammatory polyarthropathy Bilateral leg edema Edema Situational depression Adjustment disorder with depressed mood Obesity, Class I, BMI 30-34.9 Obesity, unspecified Inflammatory polyarthropathy (HCC) Unspecified inflammatory polyarthropathy Dyslipidemia Other and unspecified hyperlipidemia documented in this encounter [facility]* Diagnosis Hypokalemia- Primary Hypopotassemia documented in this encounter [facility]* Diagnosis Encounter for screening mammogram for breast cancer documented in this encounter [facility]* Diagnosis Inflammatory arthritis Unspecified inflammatory polyarthropathy documented in this encounter [facility]* Diagnosis Varicose veins of both lower extremities with complications- Primary Hypokalemia Hypopotassemia LIVIA (generalized anxiety disorder) Generalized anxiety disorder Situational depression Adjustment disorder with depressed mood Obesity, Class I, BMI 30-34.9 Obesity, unspecified Inflammatory polyarthropathy (HCC) Unspecified inflammatory polyarthropathy Dyslipidemia Other and unspecified hyperlipidemia Inflammatory arthritis Unspecified inflammatory polyarthropathy Perimenopausal symptoms Symptomatic menopausal or female climacteric states documented in this encounter [facility]* Diagnosis Bilateral leg edema Edema documented in this encounter [facility]* Diagnosis Bilateral leg edema- Primary Edema SOB (shortness of breath) Shortness of breath Obesity, Class I, BMI 30-34.9 Obesity, unspecified documented in this encounter [facility] note* Diagnosis Bilateral leg edema- Primary Edema SOB (shortness of breath) Shortness of breath documented in this encounter [facility] note* Diagnosis LIVIA (generalized anxiety disorder) Generalized anxiety disorder documented in this encounter [facility] note* Diagnosis SOB (shortness of breath)- Primary [...] phenomenon without gangrene documented in this encounter [facility] note* Diagnosis LIVIA (generalized anxiety disorder)- Primary Generalized anxiety disorder Obesity, Class I, BMI 30-34.9 Obesity, unspecified Inflammatory polyarthropathy (HCC) Unspecified inflammatory polyarthropathy Dyslipidemia Other and unspecified hyperlipidemia Inflammatory arthritis Unspecified inflammatory polyarthropathy Perimenopausal symptoms Symptomatic menopausal or female climacteric states SOB (shortness of breath) Shortness of breath Varicose veins of both lower extremities with complications [facility] Left leg pain- Primary Pain in limb Leg heaviness Other musculoskeletal symptoms referable to limbs Varicose veins of both legs with edema LIVIA (generalized anxiety disorder) Generalized anxiety disorder Perimenopausal symptoms Symptomatic menopausal or female climacteric states Inflammatory polyarthropathy (HCC) Unspecified inflammatory polyarthropathy Dyslipidemia Other and unspecified hyperlipidemia Fatigue, unspecified type [facility] [place] [facility] Diagnosis LIVIA (generalized anxiety disorder) Generalized anxiety disorder Situational depression Adjustment disorder with depressed mood [facility] Diagnosis Leg pain, bilateral- Primary Pain in limb Varicose veins of both legs with edema Inflammatory polyarthropathy (HCC) Unspecified inflammatory polyarthropathy Inflammatory arthritis Unspecified inflammatory polyarthropathy Left leg pain Pain in limb Leg heaviness Other musculoskeletal symptoms referable to limbs Obesity, Class I, BMI 30-34.9 Obesity, unspecified Dyslipidemia Other and unspecified hyperlipidemia [facility] Diagnosis Situational insomnia Transient disorder of initiating or maintaining sleep [facility] Additional Instructions Cardiac workup negative to ED. This included her D-dimer. Chest x-ray negative. Follow-up with your doctor for further testing.[facility] Work Phone: Progress note Author Laura Rai [facility] Note Date/Time May 18, 2025 1 1:50am [facility] [address] [place] [address]. 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 Hilton Doty DO ~ [facility] Work Phone: Reason for referral (narrative)* Diagnostic Procedure Only (Routine) - Pending Review Specialty Diagnoses / Procedures Referred By Contac t Referred To Contact [facility] Diagnoses Encounter for screening mammogram for malignant neoplasm of breast Procedures CINDY SCREENING W KYMBERLY SCREENING DIGITAL BREAST TOMOSYNTHESIS BI SCREENING MAMMOGRAPHY BI 2-VIEW BREAST INC CAD Hilton Doty DO [address] [place] [address] [facility] [address] [place] [address] Referral ID Status Reason Start Date Expiration Date Visits Requested Visits Authorized [id number] Pending Review Auto-Generat ed Referral 07/03/2022 02/19/2023 1 1 [facility] for referral (narrative)* Diagnostic Procedure Only (Routine) - Pending Review Specialty Diagnoses / Procedures Referred By Contac t Referred To Contact [facility] Diagnoses Pain due to intrauterine contraceptive device (IUD), initial encounter (HCC) Postcoital bleeding Procedures PELVIC US WHI US PELVIC NONOBSTETRIC REAL-TIME IMAGE COMPLETE Delphine Floyd APRN.AUTO GLASS WORKER [address] [place] [address] [facility] [address] [place] [address] Referral ID Status Reason Start Date Expiration Date Visits Requested Visits Authorized [id number] Pending Review Auto-Generat ed Referral 02/12/2022 02/12/2023 1 1 [facility] for referral (narrative)* Diagnostic Procedure Only (Routine) - Pending Review Specialty Diagnoses / Procedures Referred By Cristo t Referred To Contact BR IMAGING Diagnoses Encounter for screening mammogram for breast cancer Procedures CINDY SCREENING SCREENING MAMMOGRAPHY BI 2-VIEW BREAST INC CAD Hilton Doty DO [address] [place] [address] [facility] [address] [place] [address] Referral ID Status Reason Start Date Expiration Date Visits Requested Visits Authorized [id number] Pending Review Auto-Generat ed Referral 12/24/2022 01/23/2024 1 1 [facility] for referral (narrative)* Diagnostic Procedure Only (Urgent) - Closed Specialty Diagnoses / Procedures Referred By Contac t Referred To Contact XR IMAGING Diagnoses Lower thoracic back pain Acute low back pain with sciatica, sciatica laterality unspecified, unspecified back pain laterality Procedures XR LUMBAR GENERAL 3V AP/LAT/L5-S1 RADEX SPINE LUMBOSACRAL 2/3 VIEWS Doris Mendez APRN.ASSISTANT PRODUCTION EDITOR [address] [place] [address] [place] [address] Referral ID Status Reason Start Date Expiration Date V isits Requested Visits Authorized [id number] Closed Auto-Generate d Referral 02/08/2024 03/09/2025 1 1 * Diagnostic Procedure Only (Urgent) - Closed Specialty Diagnoses / Procedures Referred By Contac t Referred To Contact XR IMAGING Diagnoses Lower thoracic back pain Acute low back pain with sciatica, sciatica laterality unspecified, unspecified back pain laterality Procedures XR THORACIC GENERAL 3V AP/LAT/SWIMMERS RADEX SPINE THORACIC 3 VIEWS Doris Mendez APRN.ASSISTANT PRODUCTION EDITOR [address] [place] [address] [place] [address] Referral ID Status Reason Start Date Expiration Date V isits Requested Visits Authorized [id number] Closed Auto-Generate d Referral 02/08/2024 03/09/2025 1 1 [facility] for referral (narrative)* Diagnostic Procedure Only (Urgent) - Closed Specialty Diagnoses / Procedures Referred By Contac t Referred To Contact XR IMAGING Diagnoses Lower thoracic back pain Acute low back pain with sciatica, sciatica laterality unspecified, unspecified back pain laterality Procedures XR LUMBAR GENERAL 3V AP/LAT/L5-S1 RADEX SPINE LUMBOSACRAL 2/3 VIEWS Doris Mendez APRN.AUTO GLASS WORKER [address] [place] [address] [place] [address] Referral ID Status Reason Start Date Expiration Date V isits Requested Visits Authorized [id number] Closed Auto-Generate d Referral 02/08/2024 03/09/2025 1 1 Electronically signed by Doris Mendez RISK CONTROL FIELD REPRESENTATIVE.ASSISTANT PRODUCTION EDITOR at 02/08/2024 4:39 PM EDT * Diagnostic Procedure Only (Urgent) - Closed Specialty Diagnoses / Procedures Referred By Cristo xiao Referred To Contact XR IMAGING Diagnoses Lower thoracic back pain Acute low back pain with sciatica, sciatica laterality unspecified, unspecified back pain laterality Procedures XR THORACIC GENERAL 3V AP/LAT/SWIMMERS RADEX SPINE THORACIC 3 VIEWS Doris Mendez APRN.AUTO GLASS WORKER [address] [place] [address] [place] [address] Referral ID Status Reason Start Date Expiration Date V isits Requested Visits Authorized [id number] Closed Auto-Generate d Referral 02/08/2024 03/09/2025 1 1 [facility] for referral (narrative)* Diagnostic Procedure Only (Routine) - New Request Specialty Diagnoses / Procedures Referred By Cristo xiao Referred To Contact BR IMAG[facility] Diagnoses Encounter for screening mammogram for breast cancer Procedures CINDY SCREENING W KYMBERLY SCREENING DIGITAL BREAST TOMOSYNTHESIS BI SCREENING MAMMOGRAPHY BI 2-VIEW BREAST INC Hilton Nieves DO [address] [place] [address] [facility] [address] [place] [address] Referral ID Status Reason Start Date Expiration Date Visits Requested Visits Authorized [id number] New Request Auto-Generat ed Referral 05/11/2024 06/10/2025 1 1 [facility])No reason for referral information availableWThe [facility] Work Phone: Reason for visit Narrative* Diagnostic Procedure Only (Urgent) - Closed Specialty Diagnoses / Procedures Referred By Contac t Referred To Contact XR IMAGING Diagnoses Lower thoracic back pain Acute low back pain with sciatica, sciatica laterality unspecified, unspecified back pain laterality Procedures XR LUMBAR GENERAL 3V AP/LAT/L5-S1 RADEX SPINE LUMBOSACRAL 2/3 VIEWS Doris Mendez, RISK CONTROL FIELD REPRESENTATIVE.AUTO GLASS WORKER [address] [place] [address] [place] [address] Referral ID Status Reason Start Date Expiration Date V isits Requested Visits Authorized [id number] Closed Auto-Generate d Referral 02/08/2024 03/09/2025 1 1 [facility] Reason for Referral Specialty Diagnoses / Procedures Referred By Contac t Referred To Contact Vascular Surgery Diagnoses Varicose veins of both lower extremities with pain Procedures CONSULT TO VASCULAR SURGERY OFFICE/OUTPATIENT [facility] 60-74 MINUTES Hilton Doty, DO [address] [place] [address] Referral ID Status Reason Start Date Expiration Date Visits Requested Visits Authorized [id number] Authorized PCP Requested Referral 06/03/2023 06/02/2024 1 1 Specialty Diagnoses / Procedures Referred By Contac t Referred To Contact [facility] IM[facility] Diagnoses Encounter for screening mammogram for malignant neoplasm of breast Procedures CINDY SCREENING SCREENING MAMMOGRAPHY BI 2-VIEW BREAST INC CAD Hilton Doty DO [address] [place] [address] [facility] [address] [place] [address] Referral ID Status Reason Start Date Expiration Date Visits Requested Visits Authorized [id number] Pending Review Auto-Generat ed Referral 06/03/2023 07/02/2024 [...] NUTRITION ASSMT&IVNTJ INDIV EACH 15 GA Hilton Doty, DO [address] [place] [address] Referral ID Status Reason Start Date Expiration Date Visits Requested Visits Authorized [id number] Authorized PCP Requested Referral 06/03/2023 06/02/2024 1 1 Specialty Diagnoses / Procedures Referred By Contac t Referred To Contact Nutrition Diagnoses Inflammatory polyarthropathy (HCC) Obesity, Class I, BMI 30-34.9 Procedures CONSULT TO NUTRITION THERAPY MEDICAL NUTRITION ASSMT&IVNTJ INDIV EACH 15 GA Hilton Doty, DO [address] [place] [address] Referral ID Status Reason Start Date Expiration Date Visits Requested Visits Authorized [id number] Authorized PCP Requested Referral 10/21/2023 10/20/2024 1 4 Specialty Diagnoses / Procedures Referred By Contac t Referred To Contact [facility] Diagnoses Abnormal mammogram of right breast Procedures US BREAST LTD RIGHT US BREAST UNI REAL TIME WITH IMAGE LIMITED Hilton Doty, DO [address] [place] [address] [facility] [address] [place] [address] Referral ID Status Reason Start Date Expiration Date Visits Requested Visits Authorized [id number] Pending Review Auto-Generat ed Referral 10/21/2023 11/19/2024 1 1 Specialty Diagnoses / Procedures Referred By Contac t Referred To Contact [facility] Diagnoses Abnormal mammogram of right breast Procedures CINDY DIAGNOSTIC RIGHT DIAGNOSTIC MAMMOGRAPHY COMPUTER-AIDED DETCJ UNI Hilton Doty, DO [address] [place] [address] [facility] [address] [place] [address] Referral ID Status Reason Start Date Expiration Date Visits Requested Visits Authorized [id number] Pending Review Auto-Generat ed Referral 10/21/2023 11/19/2024 1 1 Specialty Diagnoses / Procedures Referred By Contac t Referred To Contact Vascular Surgery Diagnoses Varicose veins of both lower extremities with complications Procedures CONSULT TO VASCULAR SURGERY OFFICE/OUTPATIENT [facility] 60 MINUTES Hilton Doty, DO [address] [place] [address] Referral ID Status Reason Start Date Expiration Date Visits Requested Visits Authorized [id number] Authorized PCP Requested Referral 4 08/01/2025 1 [...] Admit Date Varicose veins of lower extremity [facility] 2024 10:57am Varicose veins of lower extremity [...] MNT November 28, 2024 8:0 0am Annual (OUTER DIAMETER GRINDER) December 12, 2024 9:20a m Reason for [...] MNT November 28, 2024 8:0 0am Annual (OUTER DIAMETER GRINDER) December 12, 2024 9:20a m Discuss LLE, [...] MNT November 28, 2024 8:0 0am Annual (OUTER DIAMETER GRINDER) December 12, 2024 9:20a m Discuss LLE, [...] MNT November 28, 2024 8:0 0am Annual (OUTER DIAMETER GRINDER) December 12, 2024 9:20a m Discuss LLE, [...] MNT November 28, 2024 8:0 0am Annual (OUTER DIAMETER GRINDER) December 12, 2024 9:20a m Discuss LLE, [...] MNT November 28, 2024 8:0 0am Annual (OUTER DIAMETER GRINDER) December 12, 2024 9:20a m Discuss LLE, [...] MNT November 28, 2024 8:0 0am Annual (OUTER DIAMETER GRINDER) December 12, 2024 9:20a m Discuss LLE, [...] MNT November 28, 2024 8:0 0am Annual (OUTER DIAMETER GRINDER) December 12, 2024 9:20a m Discuss LLE, [...] MNT November 28, 2024 8:0 0am Annual (OUTER DIAMETER GRINDER) December 12, 2024 9:20a m Discuss LLE, [...] MNT November 28, 2024 8:0 0am Annual (OUTER DIAMETER GRINDER) December 12, 2024 9:20a m Discuss LLE, [...] 8: 29am Chief Complaint Admit Date Annual (OUTER DIAMETER GRINDER) December 12, 2024 9:20a m Discuss LLE, [...] insufficiency May 18, 2025 11:22am Advance Directives No Advanced Directives Records Found Advance Directive Response Recorded Date/ Time Living Will No July 22 11:16am Power of Green Hide Inspector No July 22, 2021 11:16am Advance Directive Response Recorded Date/ Time Living Will No September 25, 9:31am Power of Green Hide Inspector No September 25, 2023 9:31am Advance Directive Response Recorded Date/ Time Living Will No October 13, 2024 7:03pm Power of Green Hide Inspector No October 13 7:03pm Advance Directive Response Recorded Date/ Time Living Will No October 13, 2024 7:03pm Do you have a Healthcare Power of Green Hide Inspector? No October 13, 2024 7:03pm Advance Directive Response Recorded Date/ Time Living Will No October 13, 2024 7:03pm Do you have a Healthcare Power of Green Hide Inspector? No October 13, 2024 7:03pm Advance Directives on File No January 09, 2025 8:48am Living Will No January 10, 2025 9:01am Do you have a Healthcare Power of Green Hide Inspector? No January 10, 2025 9:01am Advance Directives No January 10 9:01am Advance Directive Response Recorded Date/ Time Advance Directives on File No January 09, 2025 8:48am Living Will No January 10, 2025 9:01am Do you have a Healthcare Power of Green Hide Inspector? No January 10, 2025 9:01am Advance Directives No January 10 9:01am Advance Directive Response Recorded Date/ Time Advance Directives on File No January 09, 2025 8:48am Living Will No January 10, 2025 9:01am Do you have a Healthcare Power of Green Hide Inspector? No January 10, 2025 9:01am Advance Directives on File No er 2024 12:58pm Living Will No May 04 11:51am Do you have a Healthcare Power of Green Hide Inspector? No May 04, 2025 11:51am Advance Directives No May 04, 2025 11:51am Advance Directive Response Recorded Date/ Time Advance Directives on File No er 2024 12:58pm Living Will No May 04 11:51am Do you have a Healthcare Power of Green Hide Inspector? No May 04, 2025 11:51am Advance Directives [...] or prosecute any alcohol or drug abuse patient.[facility] the event this information is protected by the Federal Confidentiality of Alcohol and Drug Abuse Patient Records regulations: The Federal rules restrict any use of the information to criminally investigate or prosecute any alcohol or drug abuse patient.[facility] the event this information is protected by the Federal Confidentiality of Alcohol and Drug Abuse Patient Records regulations: The Federal rules restrict any use of the information to criminally investigate or prosecute any alcohol or drug abuse patient.[facility] the event this information is protected by the Federal Confidentiality of Alcohol and Drug Abuse Patient Records regulations: The Federal rules restrict any use of the information to criminally investigate or prosecute any alcohol or drug abuse patient.[facility] the event this information is protected by the Federal Confidentiality of Alcohol and Drug Abuse Patient Records regulations: The Federal rules restrict any use of the information to criminally investigate or prosecute any alcohol or drug abuse patient.[facility] the event this information is protected by the Federal Confidentiality of Alcohol and Drug Abuse Patient Records regulations: The Federal rules restrict any use of the information to criminally investigate or prosecute any alcohol or drug abuse patient.[facility] the event this information is protected by the Federal Confidentiality of Alcohol and Drug Abuse Patient Records regulations: The Federal rules restrict any use of the information to criminally investigate or prosecute any alcohol or drug abuse patient.[facility] the event this information is protected by the Federal Confidentiality of Alcohol and Drug Abuse Patient Records regulations: The Federal rules restrict any use of the information to criminally investigate or prosecute any alcohol or drug abuse patient.[facility]In the event this information is protected by the Federal Confidentiality of Alcohol and Drug Abuse Patient Records regulations: The Federal rules restrict any use of the information to criminally investigate or prosecute any alcohol or drug abuse patient.[facility] the event this information is protected by the Federal Confidentiality of Alcohol and Drug Abuse Patient Records regulations: The Federal rules restrict any use of the information to criminally investigate or prosecute any alcohol or drug abuse patient.[facility] HospitalIn the event this information is protected by the Federal Confidentiality of Alcohol and Drug Abuse Patient Records regulations: The Federal rules restrict any use of the information to criminally investigate or prosecute any alcohol or drug abuse patient.[facility]In the event this information is protected by the Federal Confidentiality of Alcohol and Drug Abuse Patient Records regulations: The Federal rules restrict any use of the information to criminally investigate or prosecute any alcohol or drug abuse patient.[facility] HospitalIn the event this information is protected by the Federal Confidentiality of Alcohol and Drug Abuse Patient Records regulations: The Federal rules restrict any use of the information to criminally investigate or prosecute any alcohol or drug abuse patient.[facility] HospitalIn the event this information is protected by the Federal Confidentiality of Alcohol and Drug Abuse Patient Records regulations: The Federal rules restrict any use of the information to criminally investigate or prosecute any alcohol or drug abuse patient.[facility] HospitalIn the event this information is protected by the Federal Confidentiality of Alcohol and Drug Abuse Patient Records regulations: The Federal rules restrict any use of the information to criminally investigate or prosecute any alcohol or drug abuse patient.[facility] HospitalIn the event this information is protected by the Federal Confidentiality of Alcohol and Drug Abuse Patient Records regulations: The Federal rules restrict any use of the information to criminally investigate or prosecute any alcohol or drug abuse patient.[facility] the event this information is protected by the Federal Confidentiality of Alcohol and Drug Abuse Patient Records regulations: The Federal rules restrict any use of the information to criminally investigate or prosecute any alcohol or drug abuse patient.[facility] Hospital[facility] the event this information is protected by the Federal Confidentiality of Alcohol and Drug Abuse Patient Records regulations: The Federal rules restrict any use of the information to criminally investigate or prosecute any alcohol or drug abuse patient.[facility] HospitalIn the event this information is protected by the Federal Confidentiality of Alcohol and Drug Abuse Patient Records regulations: The Federal rules restrict any use of the information to criminally investigate or prosecute any alcohol or drug abuse patient.[facility] HospitalIn the event this information is protected by the Federal Confidentiality of Alcohol and Drug Abuse Patient Records regulations: The Federal rules restrict any use of the information to criminally investigate or prosecute any alcohol or drug abuse patient.[facility] HospitalIn the event this information is protected by the Federal Confidentiality of Alcohol and Drug Abuse Patient Records regulations: The Federal rules restrict any use of the information to criminally investigate or prosecute any alcohol or drug abuse patient.[facility] HospitalIn the event this information is protected by the Federal Confidentiality of Alcohol and Drug Abuse Patient Records regulations: The Federal rules restrict any use of the information to criminally investigate or prosecute any alcohol or drug abuse patient.[facility] HospitalIn the event this information is protected by the Federal Confidentiality of Alcohol and Drug Abuse Patient Records regulations: The Federal rules restrict any use of the information to criminally investigate or prosecute any alcohol or drug abuse patient.[facility] HospitalIn the event this information is protected by the Federal Confidentiality of Alcohol and Drug Abuse Patient Records regulations: The Federal rules restrict any use of the information to criminally investigate or prosecute any alcohol or drug abuse patient.[facility] HospitalIn the event this information is protected by the Federal Confidentiality of Alcohol and Drug Abuse Patient Records regulations: The Federal rules restrict any use of the information to criminally investigate or prosecute any alcohol or drug abuse patient.[facility] HospitalIn the event this information is protected by the Federal Confidentiality of Alcohol and Drug Abuse Patient Records regulations: The Federal rules restrict any use of the information to criminally investigate or prosecute any alcohol or drug abuse patient.[facility] HospitalIn the event this information is protected by the Federal Confidentiality of Alcohol and Drug Abuse Patient Records regulations: The Federal rules restrict any use of the information to criminally investigate or prosecute any alcohol or drug abuse patient.[facility] HospitalIn the event this information is protected by the Federal Confidentiality of Alcohol and Drug Abuse Patient Records regulations: The Federal rules restrict any use of the information to criminally investigate or prosecute any alcohol or drug abuse patient.[facility] HospitalIn the event this information is protected by the Federal Confidentiality of Alcohol and Drug Abuse Patient Records regulations: The Federal rules restrict any use of the information to criminally investigate or prosecute any alcohol or drug abuse patient.[facility] HospitalIn the event this information is protected by the Federal Confidentiality of Alcohol and Drug Abuse Patient Records regulations: The Federal rules restrict any use of the information to criminally investigate or prosecute any alcohol or drug abuse patient.[facility] HospitalIn the event this information is protected by the Federal Confidentiality of Alcohol and Drug Abuse Patient Records regulations: The Federal rules restrict any use of the information to criminally investigate or prosecute any alcohol or drug abuse patient.[facility] HospitalIn the event this information is protected by the Federal Confidentiality of Alcohol and Drug Abuse Patient Records regulations: The Federal rules restrict any use of the information to criminally investigate or prosecute any alcohol or drug abuse patient.[facility] HospitalIn the event this information is protected by the Federal Confidentiality of Alcohol and Drug Abuse Patient Records regulations: The Federal rules restrict any use of the information to criminally investigate or prosecute any alcohol or drug abuse patient.[facility] HospitalIn the event this information is protected by the Federal Confidentiality of Alcohol and Drug Abuse Patient Records regulations: The Federal rules restrict any use of the information to criminally investigate or prosecute any alcohol or drug abuse patient.[facility] HospitalIn the event this information is protected by the Federal Confidentiality of Alcohol and Drug Abuse Patient Records regulations: The Federal rules restrict any use of the information to criminally investigate or prosecute any alcohol or drug abuse patient.[facility] HospitalIn the event this information is protected by the Federal Confidentiality of Alcohol and Drug Abuse Patient Records regulations: The Federal rules restrict any use of the information to criminally investigate or prosecute any alcohol or drug abuse patient.[facility] HospitalIn the event this information is protected by the Federal Confidentiality of Alcohol and Drug Abuse Patient Records regulations: The Federal rules restrict any use of the information to criminally investigate or prosecute any alcohol or drug abuse patient.[facility] HospitalIn the event this information is protected by the Federal Confidentiality of Alcohol and Drug Abuse Patient Records regulations: The Federal rules restrict any use of the information to criminally investigate or prosecute any alcohol or drug abuse patient.[facility] HospitalIn the event this information is protected by the Federal Confidentiality of Alcohol and Drug Abuse Patient Records regulations: The Federal rules restrict any use of the information to criminally investigate or prosecute any alcohol or drug abuse patient.[facility] HospitalIn the event this information is protected by the Federal Confidentiality of Alcohol and Drug Abuse Patient Records regulations: The Federal rules restrict any use of the information to criminally investigate or prosecute any alcohol or drug abuse patient.[facility] HospitalIn the event this information is protected by the Federal Confidentiality of Alcohol and Drug Abuse Patient Records regulations: The Federal rules restrict any use of the information to criminally investigate or prosecute any alcohol or drug abuse patient.[facility] HospitalIn the event this information is protected by the Federal Confidentiality of Alcohol and Drug Abuse Patient Records regulations: The Federal rules restrict any use of the information to criminally investigate or prosecute any alcohol or drug abuse patient.[facility] HospitalIn the event this information is protected by the Federal Confidentiality of Alcohol and Drug Abuse Patient Records regulations: The Federal rules restrict any use of the information to criminally investigate or prosecute any alcohol or drug abuse patient.[facility] HospitalIn the event this information is protected by the Federal Confidentiality of Alcohol and Drug Abuse Patient Records regulations: The Federal rules restrict any use of the information to criminally investigate or prosecute any alcohol or drug abuse patient.[facility] HospitalIn the event this information is protected by the Federal Confidentiality of Alcohol and Drug Abuse Patient Records regulations: The Federal rules restrict any use of the information to criminally investigate or prosecute any alcohol or drug abuse patient.[facility] HospitalIn the event this information is protected by the Federal Confidentiality of Alcohol and Drug Abuse Patient Records regulations: The Federal rules restrict any use of the information to criminally investigate or prosecute any alcohol or drug abuse patient.[facility] HospitalIn the event this information is protected by the Federal Confidentiality of Alcohol and Drug Abuse Patient Records regulations: The Federal rules restrict any use of the information to criminally investigate or prosecute any alcohol or drug abuse patient.[facility] HospitalIn the event this information is protected by the Federal Confidentiality of Alcohol and Drug Abuse Patient Records regulations: The Federal rules restrict any use of the information to criminally investigate or prosecute any alcohol or drug abuse patient.[facility] HospitalIn the event this information is protected by the Federal Confidentiality of Alcohol and Drug Abuse Patient Records regulations: The Federal rules restrict any use of the information to criminally investigate or prosecute any alcohol or drug abuse patient.[facility] HospitalIn the event this information is protected by the Federal Confidentiality of Alcohol and Drug Abuse Patient Records regulations: The Federal rules restrict any use of the information to criminally investigate or prosecute any alcohol or drug abuse patient.[facility] HospitalIn the event this information is protected by the Federal Confidentiality of Alcohol and Drug Abuse Patient Records regulations: The Federal rules restrict any use of the information to criminally investigate or prosecute any alcohol or drug abuse patient.[facility] HospitalIn the event this information is protected by the Federal Confidentiality of Alcohol and Drug Abuse Patient Records regulations: The Federal rules restrict any use of the information to criminally investigate or prosecute any alcohol or drug abuse patient.[facility] HospitalIn the event this information is protected by the Federal Confidentiality of Alcohol and Drug Abuse Patient Records regulations: The Federal rules restrict any use of the information to criminally investigate or prosecute any alcohol or drug abuse patient.[facility] HospitalIn the event this information is protected by the Federal Confidentiality of Alcohol and Drug Abuse Patient Records regulations: The Federal rules restrict any use of the information to criminally investigate or prosecute any alcohol or drug abuse patient.[facility] HospitalIn the event this information is protected by the Federal Confidentiality of Alcohol and Drug Abuse Patient Records regulations: The Federal rules restrict any use of the information to criminally investigate or prosecute any alcohol or drug abuse patient.[facility] HospitalIn the event this information is protected by the Federal Confidentiality of Alcohol and Drug Abuse Patient Records regulations: The Federal rules restrict any use of the information to criminally investigate or prosecute any alcohol or drug abuse patient.[facility] HospitalIn the event this information is protected by the Federal Confidentiality of Alcohol and Drug Abuse Patient Records regulations: The Federal rules restrict any use of the information to criminally investigate or prosecute any alcohol or drug abuse patient.[facility] HospitalIn the event this information is protected by the Federal Confidentiality of Alcohol and Drug Abuse Patient Records regulations: The Federal rules restrict any use of the information to criminally investigate or prosecute any alcohol or drug abuse patient.[facility] HospitalIn the event this information is protected by the Federal Confidentiality of Alcohol and Drug Abuse Patient Records regulations: The Federal rules restrict any use of the information to criminally investigate or prosecute any alcohol or drug abuse patient.[facility] HospitalIn the event this information is protected by the Federal Confidentiality of Alcohol and Drug Abuse Patient Records regulations: The Federal rules restrict any use of the information to criminally investigate or prosecute any alcohol or drug abuse patient.[facility] HospitalIn the event this information is protected by the Federal Confidentiality of Alcohol and Drug Abuse Patient Records regulations: The Federal rules restrict any use of the information to criminally investigate or prosecute any alcohol or drug abuse patient.[facility] HospitalIn the event this information is protected by the Federal Confidentiality of Alcohol and Drug Abuse Patient Records regulations: The Federal rules restrict any use of the information to criminally investigate or prosecute any alcohol or drug abuse patient.[facility] HospitalIn the event this information is protected by the Federal Confidentiality of Alcohol and Drug Abuse Patient Records regulations: The Federal rules restrict any use of the information to criminally investigate or prosecute any alcohol or drug abuse patient.[facility] HospitalIn the event this information is protected by the Federal Confidentiality of Alcohol and Drug Abuse Patient Records regulations: The Federal rules restrict any use of the information to criminally investigate or prosecute any alcohol or drug abuse patient.[facility] HospitalIn the event this information is protected by the Federal Confidentiality of Alcohol and Drug Abuse Patient Records regulations: The Federal rules restrict any use of the information to criminally investigate or prosecute any alcohol or drug abuse patient.[facility] HospitalIn the event this information is protected by the Federal Confidentiality of Alcohol and Drug Abuse Patient Records regulations: The Federal rules restrict any use of the information to criminally investigate or prosecute any alcohol or drug abuse patient.[facility] the event this information is protected by the Federal Confidentiality of Alcohol and Drug Abuse Patient Records regulations: The Federal rules restrict any use of the information to criminally investigate or prosecute any alcohol or drug abuse patient.[facility] HospitalIn the event this information is protected by the Federal Confidentiality of Alcohol and Drug Abuse Patient Records regulations: The Federal rules restrict any use of the information to criminally investigate or prosecute any alcohol or drug abuse patient.[facility] HospitalIn the event this information is protected by the Federal Confidentiality of Alcohol and Drug Abuse Patient Records regulations: The Federal rules restrict any use of the information to criminally investigate or prosecute any alcohol or drug abuse patient.[facility] HospitalIn the event this information is protected by the Federal Confidentiality of Alcohol and Drug Abuse Patient Records regulations: The Federal rules restrict any use of the information to criminally investigate or prosecute any alcohol or drug abuse patient.[facility] HospitalIn the event this information is protected by the Federal Confidentiality of Alcohol and Drug Abuse Patient Records regulations: The Federal rules restrict any use of the information to criminally investigate or prosecute any alcohol or drug abuse patient.[facility] HospitalIn the event this information is protected by the Federal Confidentiality of Alcohol and Drug Abuse Patient Records regulations: The Federal rules restrict any use of the information to criminally investigate or prosecute any alcohol or drug abuse patient.[facility] HospitalIn the event this information is protected by the Federal Confidentiality of Alcohol and Drug Abuse Patient Records regulations: The Federal rules restrict any use of the information to criminally investigate or prosecute any alcohol or drug abuse patient.[facility] Reason for Visit (unrecogniz ed section and content) Reason Comments Medication Question Reason Comments Refill Request Reason Comments Medication Problem Reason Comments Follow Up 4 months Reason Comments Well Woman Specialty Diagnoses / Procedures Referred By Cristo xiao Referred To Contact Gynecology / SMASH PIECER Diagnoses annual Procedures WELLNESS EXAMS EST 40-64 YRS EST I ANNUAL PATIENT Self, Delphine Yan, RISK CONTROL FIELD REPRESENTATIVE.AUTO GLASS WORKER [address] [place] [address] Referral ID Status Reason Start Date Expiration Date Visits Re quested Visits Authorized [id number] Closed 02/04/2022 08/02/2022 1 1 Reason Comments [...] Comments Follow Up Reason Comments ER F/U [facility] 02/05/24 Fall Reason Onset Date Comments Refill Request 03/17/2024 Reason Onset Date Comments Refill Request 04/01/2024 Reason Onset Date Comments Refill Request 07/01/2024 Reason Comments F/U 3 Month Reason Comments fax Vasc referral to [facility] Reason Comments Orders Reason Onset Date Comments [...] on with specialist Dr. Barone's office at [facility] Care Teams (unrecognized sec tion and content) Legal Research Analyst Relationship Specialty Start Date End Date Hilton Doty, DO [address] [place] [address] PCP - General Family Practice 09/15/14 Legal Research Analyst Relationship Specialty Start Date End Date Hilton Doty, DO [address] [place] [address] PCP - General Family Practice 09/15/14 Legal Research Analyst Relationship Specialty Start Date End Date Hilton Doty, DO [address] [place] [address] PCP - General Family Practice 09/15/14 Legal Research Analyst Relationship Specialty Start Date End Date Hilton Doty, DO [address] [place] [address] PCP - General Family Practice 09/15/14 Legal Research Analyst Relationship Specialty Start Date End Date Hilton Doty, DO [address] [place] [address] PCP - General Family Practice 09/15/14 Legal Research Analyst Relationship Specialty Start Date End Date Hilton Doty, DO [address] [place] [address] PCP - General Family Practice 09/15/14 Legal Research Analyst Relationship Specialty Start Date End Date Hilton Doty, DO [address] [place] [address] PCP - General Family Medicine 09/15/14 Legal Research Analyst Relationship Specialty Start Date End Date Hilton Doty, DO [address] [place] [address] PCP - General Family Medicine 09/15/14 Legal Research Analyst Relationship Specialty Start Date End Date Hilton Doty, DO [address] [place] [address] PCP - General Family Medicine 09/15/14 Legal Research Analyst Relationship Specialty Start Date End Date Hilton Doty, DO [address] [place] [address] PCP - General Family Medicine 09/15/14 Legal Research Analyst Relationship Specialty Start Date End Date Hilton Doty, DO [address] [place] [address] PCP - General Family Medicine 09/15/14 Legal Research Analyst Relationship Specialty Start Date End Date Hilton Doty, DO [address] [place] [address] PCP - General Family Medicine 09/15/14 Legal Research Analyst Relationship Specialty Start Date End Date Hilton Doty, DO [address] [place] [address] PCP - General Family Medicine 09/15/14 Legal Research Analyst Relationship Specialty Start Date End Date Hilton Doty, DO [address] [place] [address] PCP - General Family Medicine 09/15/14 Legal Research Analyst Relationship Specialty Start Date End Date Hilton Doty, DO [address] [place] [address] PCP - General Family Medicine 09/15/14 Legal Research Analyst Relationship Specialty Start Date End Date Hilton Doty, DO [address] [place] [address] PCP - General Family Medicine 09/15/14 Legal Research Analyst Relationship Specialty Start Date End Date Hilton Doty, DO [address] [place] [address] PCP - General Family Medicine 09/15/14 Legal Research Analyst Relationship Specialty Start Date End Date Hilton Doty, DO [address] [place] [address] PCP - General Family Medicine 09/15/14 Legal Research Analyst Relationship Specialty Start Date End Date Hilton Doty DO [address] [place] [address] PCP - General Family Medicine 09/15/14 Legal Research Analyst Relationship Specialty Start Date End Date Hilton Doty DO [address] [place] [address] PCP - General Family Medicine 09/15/14 Legal Research Analyst Relationship Specialty Start Date End Date Hilton Doty DO [address] [place] [address] PCP - General Family Medicine 09/15/14 Team Status: Active Member Role Status Dates Dr. Hilton Doty DO Primary Care Provider Active Team Status: Inactive Member Role Status Dates Dr. Hilton Doty DO Primary Care Provider, Referr ing Provider Active Nilda Loya HOSE OPERATOR, HOSE OPERATOR-C Attending Provider Active Team Status: Active Member [...] Pr ovider, Attending Provider, Referring Provider Active Legal Research Analyst Relationship Specialty Start Date End Date Hilton Doty DO [address] [place] [address] PCP - General Family Medicine 09/15/14 Legal Research Analyst Relationship Specialty Start Date End Date Hilton Doty DO [address] [place] [address] PCP - General Family Medicine 09/15/14 Team Status: Inactive Member Role Status Dates Dr. Hilton Doty DO Primary Care Provider Active Nilda Loya NP, HOSE OPERATOR-C Attending Provider, Referring Provider Active Team Status: Inactive Member Role Status Dates Dr. Hilton Doty DO Primary Care Provider Active ERIC FOWLER Attending Provider, Referring Pro vider Active Legal Research Analyst Relationship Specialty Start Date End Date Hilton oDty DO [address] [place] [address] PCP - General Family Medicine 09/15/14 Team Status: Inactive Member Role Status Dates Dr. Hilton Doty DO Primary Care Provider, Referr ing Provider Active Dr. Priscilla Mart DO Attending Provider Activ e Team Status: Inactive Member Role Status Dates Dr. Hilton Doty DO Primary Care Provider Active Dr. Priscilla Mart DO Attending Provider, Refe rring Provider Active Legal Research Analyst Relationship Specialty Start Date End Date Hilton Doty DO [address] [place] [address] PCP - General Family Medicine 09/15/14 Legal Research Analyst Relationship Specialty Start Date End Date Hilton Doty DO [address] [place] [address] PCP - General Family Medicine 09/15/14 Legal Research Analyst Relationship Specialty Start Date End Date Hilton Doty DO [address] [place] [address] PCP - General Family Medicine 09/15/14 Team [...] Active Randy CEE, PA Attending Provider Active Legal Research Analyst Relationship Specialty Start Date End Date Hilton Doty DO [address] [place] [address] PCP - General Family Medicine 09/15/14 Legal Research Analyst Relationship Specialty Start Date End Date Hilton Doty DO [address] [place] [address] PCP - General Family Medicine 09/15/14 Legal Research Analyst Relationship Specialty Start Date End Date Hilton Doty DO [address] [place] [address] PCP - General Family Medicine 09/15/14 Legal Research Analyst Relationship Specialty Start Date End Date Hilton Doty DO [address] [place] [address] PCP - General Family Medicine 09/15/14 Legal Research Analyst Relationship Specialty Start Date End Date Hilton Doty DO [address] [facility] [address] PCP - General Family Medicine 09/15/14 Legal Research Analyst Relationship Specialty Start Date End Date Hilton Doty DO [address] [place] [address] PCP - General Family Medicine 09/15/14 Legal Research Analyst Relationship Specialty Start Date End Date Hilton Doty DO [address] [place] [address] PCP - General Family Medicine 09/15/14 Lisa Doll, RISK CONTROL FIELD REPRESENTATIVE.AUTO GLASS WORKER [address] [place] [address] Supervisor [facility] 07/10/24 Anna Sheikh, RISK CONTROL FIELD REPRESENTATIVE.AUTO GLASS WORKER [address] [place] [address] [facility] 07/10/24 Legal Research Analyst Relationship Specialty Start Date End Date Hilton Doty DO [address] [place] [address] PCP - General Family Medicine 09/15/14 Lisa Doll, RISK CONTROL FIELD REPRESENTATIVE.AUTO GLASS WORKER [address] [place] [address] [facility] 07/[facility]/24 Anna Sheikh, RISK CONTROL FIELD REPRESENTATIVE.AUTO GLASS WORKER [address] [place] [address] [facility] 07/10/24 Legal Research Analyst Relationship Specialty Start Date End Date Hilton Doty DO [address] [place] [address] PCP - General Family Medicine 09/15/14 Lisa Doll, RISK CONTROL FIELD REPRESENTATIVE.AUTO GLASS WORKER [address] [place] [address] [facility] 07/10/24 Anna Sheikh, RISK CONTROL FIELD REPRESENTATIVE.AUTO GLASS WORKER [address] [place] [address] [facility] 07/10/24 Legal Research Analyst Relationship Specialty Start Date End Date Hilton Doty DO [address] [place] [address] PCP - General Family Medicine 09/15/14 Lisa Doll, RISK CONTROL FIELD REPRESENTATIVE.AUTO GLASS WORKER [address] [place] [address] [facility] 07/10/24 Anna Sheikh, RISK CONTROL FIELD REPRESENTATIVE.AUTO GLASS WORKER [address] [place] [address] [facility] 07/10/24 Legal Research Analyst Relationship Specialty Start Date End Date Hilton Doty DO [address] [place] [address] PCP - General Family Medicine 09/15/14 Lisa Doll, RISK CONTROL FIELD REPRESENTATIVE.AUTO GLASS WORKER [address] [place] [address] [facility] 07/10/24 JillianAnna, RISK CONTROL FIELD REPRESENTATIVE.AUTO GLASS WORKER [address] [place] [address] [facility] 07/10/24 Legal Research Analyst Relationship Specialty Start Date End Date Hilton Doty DO [address] [place] [address] PCP - General Family Medicine 09/15/14 Lisa Doll, RISK CONTROL FIELD REPRESENTATIVE.AUTO GLASS WORKER [address] [place] [address] [facility] 07/10/24 Anna Sheikh, RISK CONTROL FIELD REPRESENTATIVE.AUTO GLASS WORKER [address] [place] [address] [facility] 07/10/24 Legal Research Analyst Relationship Specialty Start Date End Date Hilton Doty DO [address] [place] [address] PCP - General Family Medicine 09/15/14 Lisa Doll, RISK CONTROL FIELD REPRESENTATIVE.AUTO GLASS WORKER [address] [place] [address] [facility] 07/10/24 [facility], RISK CONTROL FIELD REPRESENTATIVE.AUTO GLASS WORKER [address] [place] [address] [facility] 07/10/24 Legal Research Analyst Relationship Specialty Start Date End Date Hilton Doty DO [address] [place] [address] PCP - General Family Medicine 09/15/14 Lisa Doll, RISK CONTROL FIELD REPRESENTATIVE.AUTO GLASS WORKER [address] [place] [address] [facility] 07/10/24 JillianAnna, RISK CONTROL FIELD REPRESENTATIVE.AUTO GLASS WORKER [address] [place] [address] [facility] 07/10/24 Legal Research Analyst Relationship Specialty Start Date End Date Hilton Doty DO [address] [place] [address] PCP - General Family Medicine 09/15/14 Anna Sheikh, RISK CONTROL FIELD REPRESENTATIVE.AUTO GLASS WORKER [address] [place] [address] [facility] 07/10/24 Team Status: Inactive Member [...] 2024 End: September 26, 2024 Nilda Loya HOSE OPERATOR, HOSE OPERATOR-C Attending Provider Active Start: September 26, 2024 End: September 26, 2024 Nilda Loya HOSE OPERATOR, HOSE OPERATOR-C Referring Provider Active Start: September 26, 2024 [...] Provider Active S tart: October 26, 2024 Legal Research Analyst Relationship Specialty Start Date End Date Hilton Doty DO [address] [place] [address] PCP - General Family Medicine 09/15/14 Anna Sheikh APRN.CNP [address] [place] [address] [facility] 07/10/24 Legal Research Analyst Relationship Specialty Start Date End Date Hilton Doty DO [address] [place] [address] PCP - General [facility] 09/15/14 [facility] HospitalTracyah, RISK CONTROL FIELD REPRESENTATIVE.AUTO GLASS WORKER [address] [place] [address] [facility] 07/10/24 Team Status: Inactive Member Role Status Dates Dr. Hilton Doty DO Primary Care Provider Active Start: November 02, 2024 End: November 02, 2024 Dr. Hilton Doty DO Referring Provider Active Start: November 02, 2024 End: November 02, 2024 AJYE Montero Attending Provider Active Star t: November [...] November 10, 2024 End: November 10, 2024 Legal Research Analyst Relationship Specialty Start Date End Date Hilton Doty DO [address] [place] [address] PCP - [facility]14 [facility] RISK CONTROL FIELD REPRESENTATIVE.AUTO GLASS WORKER [address] [place] [id number] [facility] 07/10/24 Team Status: Inactive Member [...] 2025 JAYE Montero Other Provider Active Start: J une 2024 End: January 10, 2025 Dr. Derek Barone MD Attending Provider Active S tart: January 10, 2025 End: January 10, 2025 Dr. Derek Barone MD Referring Provider Active S tart: January 10, 2025 End: January 10, 2025 Team Status: Active Member Role Status Dates Dr. Hilton Doty DO Primary Care Provider Active Start: January 10, 2025 JAYE Montero Other Provider Active Start: J une 2024 Dr. Derek Barone MD Attending Provider [...] January 13, 2025 End: January 13, 2025 Legal Research Analyst Relationship Specialty Start Date End Date Hilton Doty DO [address] [place] [address] PCP - General Family Medicine 09/15/14 Anna Sheikh APRN.AUTO GLASS WORKER [address] [place] [address] [facility] 07/10/24 Team Status: Inactive Member [...] 2024 End: October 26, 2024 Rajinder Hinton NP-C Attending Provider Active Start: October 26, 2024 End: October 26, 2024 Rajinder Hinton NP-C Referring Provider Active Start: October 26, 2024 [...] 2025 JAYE Montero Other Provider Active Start: J 2024 Dr. Derek Barone MD Attending Provider Active S tart: January 10, 2025 Dr. Derek Barone MD Referring Provider Active S tart: January 10, 2025 Dr. Derek Barone MD Other Provider Active Start : January 10, 2025 Team Status: Inactive Member Role/Relationship Status Dates Dr. Hilton Doty DO Primary Care Provider Active Start: January 12, 2025 End: January 12, 2025 Dr. Kay Kahn MD Attending Provider Active Start: January 12, [...] February 06, 2025 End: February 06, 2025 Legal Research Analyst Relationship Specialty Start Date End Date Hilton Doty DO [address] [place] [address] PCP - General Family Medicine 09/15/14 [facility] RISK CONTROL FIELD REPRESENTATIVE.AUTO GLASS WORKER [address] [place] [address] [facility] Family [facility] 07/10/24 Zee Adan, RISK CONTROL FIELD REPRESENTATIVE.AUTO GLASS WORKER [address] [facility] [place] [address] [facility] 01/16/25 Legal Research Analyst Relationship Specialty Start Date End Date Hilton Doty DO [address] [place] [address] PCP - General Family Medicine 09/15/14 [facility] RISK CONTROL FIELD REPRESENTATIVE.AUTO GLASS WORKER [address] [place] [address] [facility] Family Medicine 07/10/24 Zee Adan, RISK CONTROL FIELD REPRESENTATIVE.AUTO GLASS WORKER [address] [facility] [place] [address] [facility] 01/16/25 Team Status: Inactive Member Role/Relationship Status Dates Dr. Hilton Doty DO Primary Care Provider Active Start: February 01, 2025 End: February 01, 2025 Dr. Hilton Doty DO Attending Provider Active Start: February 01, 2025 End: February 01, 2025 Dr. Hilton Doty DO Referring Provider Active Start: February 01, 2025 End: February 01, 2025 Legal Research Analyst Relationship Specialty Start Date End Date Hilton Doty DO [address] [place] [address] PCP - General Family Medicine 09/15/14 Anna Sheikh, RISK CONTROL FIELD REPRESENTATIVE.AUTO GLASS WORKER [address] [place] [address] [facility] 07/10/24 Zee Adan, RISK CONTROL FIELD REPRESENTATIVE.AUTO GLASS WORKER [address] [place] [address] [facility] 01/16/25 Team Status: Inactive Member Role/Relationship [...] Status: Inactive Member Role/Relationship Status Dates Dr. iHlton Doty DO Primary Care Provider Active Start: [...] 2025 JAYE Montero Other Provider Active Start: J yosi 2024 End: January 10, 2025 Dr. Derek Barone MD Attending Provider Active S tart: January 10, 2025 End: January 10, 2025 Dr. Derek Barone MD Referring Provider Active S tart: January 10, 2025 End: January 10, 2025 Team Status: Active Member Role/Relationship Status Dates Dr. Hilton Doty DO Primary Care Provider Active Start: January 10, 2025 JAYE Montero Other Provider Active Start: J une 2024 Dr. Derek Barone MD Attending Provider [...] March 13, 2025 End: March 13, 2025 Legal Research Analyst Relationship Specialty Start Date End Date Hilton Doty DO [address] [place] [address] PCP - General Family Medicine 09/15/14 [facility], RISK CONTROL FIELD REPRESENTATIVE.AUTO GLASS WORKER [address] [facility], [place] [address] [facility] 07/10/24 Zee Adan, RISK CONTROL FIELD REPRESENTATIVE.AUTO GLASS WORKER [address] [facility], [place] [id number] [facility] 01/16/25 Legal Research Analyst Relationship Specialty Start Date End Date Hilton Doty DO [address] [place] [address] PCP - [facility] 09/15/14 [facility], RISK CONTROL FIELD REPRESENTATIVE.AUTO GLASS WORKER [address] [place] [address] [facility] 07/10/24 Zee Adan, RISK CONTROL FIELD REPRESENTATIVE.AUTO GLASS WORKER [address] [place], [place] [address] [facility] 01/16/25 Team Status: Inactive Member Role/Relationship Status Dates Dr. Hilton Doty DO Primary Care Provider Active Start: March 23, 2025 End: March 23, 2025 Dr. Hilton Doty DO Referring Provider Active Start: March 23, 2025 End: March 23, 2025 JAYE Montero Attending Provider Active Star t: March 23, 2025 End: March 23, 2025 Legal Research Analyst Relationship Specialty Start Date End Date Hilton Doty DO [address] [place], [place] [id number] PCP - General Family Medicine 09/15/14 Anna Sheikh, RISK CONTROL FIELD REPRESENTATIVE.AUTO GLASS WORKER [address] [place], [place] [address] [facility] 07/10/24 Zee Adan, RISK CONTROL FIELD REPRESENTATIVE.AUTO GLASS WORKER [address] [place], [place] [id number] [facility] 01/16/25 Team Status: Inactive Member Role/Relationship Status Dates Dr. Hilton Doyt DO Primary Care Provider Active Start: December [...] 2025 JAYE Montero Other Provider Active Start: J une 2024 End: January 10, 2025 Dr. Derek Barone MD Attending Provider Active S tart: January 10, 2025 End: January 10, 2025 Dr. Derek Barone MD Referring Provider Active S tart: January 10, 2025 End: January 10, 2025 Team Status: Active Member Role/Relationship Status Dates Dr. Hilton Doty DO Primary Care Provider Active Start: January 10, 2025 JAYE Montero Other Provider Active Start: J une 2024 Dr. Derek Barone MD Attending Provider [...] Active S tart: February 01, 2025 Dr. uLpillo Quintero MD Attending Provider Active S tart: [...] ized section and content) DATE CREATED AUTHOR 06/09/2025 [facility] DATE CREATED AUTHOR AUTHORAna M MONTILLA 06/11/2025 [facility] FOR RECORDS PERTAINING TO PATIENTS WHO [...] BE BASED ON THE PRIMARY CLINICAL RECORDS. [employer] [facility]. provides no warranty or guarantee of the accuracy or completeness of information in this document.
== END 2025-07-02 03:57 | disposition home or self-care (01) ==
LOC: ED 03:51
PROVIDERS: Emergency Provider Emergency Medicine; PCP Student in an Organized Health Care Education/Training Program; Visit Provider Emergency Medicine
DX: S71.101A Unspecified open wound, right thigh, initial encounter (principal); Z87.891 Personal history of nicotine dependence; X58.XXXA Exposure to other specified factors, initial encounter; Z98.890 Other specified postprocedural states
CPT/HCPCS: 99282